=== PATIENT | male | born 1935 | race Caucasian/White ===

== ENCOUNTER 2019-02-12 20:43 | Emergency (ER) | payer MEDICARE ==
[~2019-02-12] VITALS: Ht 177.8 cm; Wt 106.4 kg
[~2019-02-12 20:43] MED LIST: ACHD5005 PO; ADVIL; AMLO10TA7 PO; AMLO1TAB5; AMLO1TAB5 PO; ASCO-262 PO; ASCO10006 PO; ASCO500C14; ASP325TEC; ASPI-892; ASPI-933 PO; ASPI325T32 PO; ATEN50TA PO; ATN50T PO; ATOR80TA; AZTH250C PO; BRIM5DRO12 OD; BRIM5DRO2 OD; BSC10SU PR; CALC-80 PO; CALC-913 PO; CALC260T6 PO; CALC600T PO; CENTRUM SILVER PO; CEPH500C PO; CLOP75TA PO; CLOP75TA28 PO; DIPH25TA82 PO; DOXY-13 PO; FISH1CAP15 PO; FLAXSEED OIL; FNST5T PO; FURO40TA4 PO; GABA-488 PO; GABA300C PO; GLIP-123 PO; GLIP10TA13 PO; GLPZ10TCR PO; HYDR-3061 PO; KCL20TCR PO; LEVO100V PO; LISI-552 PO; LISI-597 PO; LISI20TA PO; LSNP20T PO; LVT.1T PO; MAGN-47 PO; METF-380 PO; METF-399 PO; MTF500TCR; MULT-1029 PO; NEOM10SO5 EACH EAR; OMEG-160 PO; OMEG1CAP2 PO; OMG1KC PO; OXYC-12 PO; PRAV40TA PO; PRAV40TA2 PO; PRD20T PO; SCR1T1 PO; SERT50TA9 PO; SITA100T12 PO; SITA25TA5 PO; SRTR100T PO; TAMS0.4C2 PO; TMSL.4C PO
[2019-02-12] MEDS ORDERED: NS IV 1000 ML 1,000 ML IV SCH (22:33)
[2019-02-12 22:42] LABS: BASOPHILS % (AUTO) 0 % (0-10); EOSINOPHILS # (AUTO) 0.3 10^3/uL (0.0-0.3); EOSINOPHILS % (AUTO) 4 % (0-10); HEMATOCRIT 37 % (40-54); HEMOGLOBIN 12.4 G/DL (13.3-17.7); LYMPHOCYTES # (AUTO) 1.5 X 10^3 (1.0-4.0); LYMPHOCYTES % (AUTO) 20 % (12-44); MEAN CORPUSCULAR HEMOGLOBIN 30 PG (25-34); MEAN CORPUSCULAR HGB CONC 34 G/DL (32-36); MEAN CORPUSCULAR VOLUME 89 FL (80-99); MEAN PLATELET VOLUME 10.8 FL (7.4-10.4); MONOCYTES # (AUTO) 0.7 X 10^3 (0.0-1.0); MONOCYTES % (AUTO) 9 % (0-12); NEUTROPHILS # (AUTO) 5.1 X 10^3 (1.8-7.8); NEUTROPHILS % (AUTO) 68 % (42-75); PLATELET COUNT 201 10^3/uL (130-400); RED CELL DISTRIBUTION WIDTH 13.3 % (10.0-14.5); WHITE BLOOD COUNT 7.5 10^3/uL (4.3-11.0)
--- NOTE | 2019-02-12 22:43 | ED Abdominal Pain ---
General Stated Complaint: STOMACH CRAMPING,DIARRHEA Source of Information: Patient Exam Limitations: No Limitations History of Present Illness Date Seen by Provider: Feb 12, 2019 Time Seen by Provider: 22:25 Initial Comments Patient presents to ER by private conveyance with his and daughter and chief complaint that for the past several days he's been having some abdominal pain that is mostly in his right lower quadrant but all over 12 out of 10 after eating. Is not having any nausea or vomiting. He's having diarrhea loose stools but no fevers or chills. No history of abdominal surgeries. He has not been able to take his glipizide and metformin because of his abdominal discomfort for the past couple days. Nursing reports blood sugar is 198. He has had an occasional nonproductive cough nothing that concerns him. He had a colonoscopy many years ago but they don't member if he found any polyps or history of diverticulosis. No history of irritable bowel or inflammatory bowel disease. No black tarry stools and no blood in the stool. He has not tried to take anything to stop the diarrhea and he has not taken anything for the pain as it is self- limiting using an hour or 2 after eating. His only had half a cup of soup to eat today. Allergies and Home Medications Allergies Coded Allergies: No Known Drug Allergies (Verified , 10/15/09) Home Medications Amlodipine Besylate 10 Mg Tablet, 10 MG PO DAILY, (Reported) Ascorbate Calcium 500 Mg Tablet, 500 MG PO DAILY, (Reported) Aspirin 81 Mg Tablet.dr, 81 MG PO DAILY, (Reported) Atenolol 50 Mg Tablet, 50 MG PO HS, (Reported) Calcium Carbonate/Vitamin D3 1 Each Tablet, 1 TAB PO DAILY, (Reported) Gabapentin 300 Mg Capsule, 300 MG PO BID, (Reported) Glipizide 10 Mg Tablet, 10 MG PO DAILY, (Reported) Lisinopril 20 Mg Tablet, 20 MG PO BID, (Reported) Metformin HCl 1,000 Mg Tablet, 1,000 MG PO BID, (Reported) Multivit-Min/FA/Lycopene/Lut 1 Each Tablet, 1 TAB PO DAILY, (Reported) [place]-3/Dha/Epa/Fish Oil 1 Each Capsule, 1,000 MG PO BID, (Reported) Pravastatin Sodium 40 Mg Tablet, 40 MG PO HS, (Reported) Sertraline HCl 50 Mg Tablet, 50 MG PO HS, (Reported) Sitagliptin Phosphate 100 Mg Tablet, 100 MG PO DAILY, (Reported) LAST FILLED 09/05/16 #30 Tamsulosin HCl 0.4 Mg Cap.er.24h, 0.4 MG PO HS, (Reported) Patient Home Medication List Home Medication List Reviewed: Yes Review of Systems Review of Systems Constitutional: No chills, No diaphoresis, No fever; malaise EENTM: No Blurred Vision, No Double Vision Respiratory: Cough; Denies Shortness of Air, Denies Wheezing Cardiovascular: Denies Chest Pain, Denies Edema Gastrointestinal: See HPI, Abdomen Distended, Abdominal Pain; Denies Blood Streaked Stools, Denies Constipated; Diarrhea; Denies Nausea; Poor Fluid Intake ; Denies Vomiting Genitourinary: Denies Burning, Denies Discharge Musculoskeletal: No back pain, No joint pain Skin: No pruritus, No rash Psychiatric/Neurological: Denies Headache, Denies Numbness, Denies Paresthesia Past Htmcupa-Sednow-Wjvqhf Hx Patient Social History Alcohol Use: Denies Use Recreational Drug Use: No Smoking Status: Current Someday Smoker Type Used: Cigars Recent Foreign Travel: No Contact w/Someone Who Travel: No Recent Hopitalizations: No Immunizations Up To Date Tetanus Booster (TDap): Unknown Date of Pneumonia Vaccine: Sep 29, 2012 Seasonal Allergies Seasonal Allergies: No Past Medical History Amputation, CABG, Eye Surgery, Orthopedic, Pacemaker, Vascular Surgery Pneumonia Coronary Artery Disease, High Cholesterol, Hypertension, Peripheral Vascular Headaches /Migraines, Neuropathy Reproductive Disorders: No Prostate Problems Chronic Constipation Amputee Diabetes, Non-Insulin dep Cataract Loss of Vision: Denies Hearing Impairment: Hard of Hearing Depression Adverse Reaction/Blood Tranf: No Family Medical History Diabetes mellitus GRANDMOTHER FH: leukemia G8 BROTHER Testicular cancer 19 FATHER Physical Exam Vital Signs Capillary Refill : Height/Weight/BMI Height: 5'10.00" Weight: 253lbs. 9.0oz. 115.569489am; 36.4 BMI Method:Stated General Appearance: WD/WN, obese, other (Below the knee right amputation) HEENT: PERRL/EOMI, normal ENT inspection; No pharynx normal (Oropharynx is very dry) Respiratory: chest non-tender, lungs clear, normal breath sounds, no respiratory distress, no accessory muscle use Cardiovascular: normal peripheral pulses, regular rate, rhythm, no edema Peripheral Pulses: 2+ Radial Pulses (R), 2+ Radial Pulses (L) Gastrointestinal: normal bowel sounds (Active), soft, tenderness (Bilateral lower quadrants, diffuse), other (Negative for pain over McBurney's point, rebound tenderness, Rovsing sign. Negative for mesenteric signs) Extremities: no pedal edema, normal capillary refill, other (Right BKA) Neurologic/Psychiatric: alert, normal mood/affect, oriented x 3 Skin: normal color, warm/dry Progress/Results/Core Measures Results/Orders Lab Results Laboratory Tests Test 02/12/19 22:15 02/12/19 22:30 02/13/19 00:21 Range/Units White Blood Count 7.5 4.3-11.0 10^3/uL Red Blood Count 4.13 L 4.35-5.85 10^6/uL Hemoglobin 12.4 L 13.3-17.7 G/DL Hematocrit 37 L 40-54 % Mean Corpuscular Volume 89 80-99 FL Mean Corpuscular Hemoglobin 30 25-34 PG Mean Corpuscular Hemoglobin Concent 34 32-36 G/DL Red Cell Distribution Width 13.3 10.0-14.5 % Platelet Count 201 130-400 10^3/uL Mean Platelet Volume 10.8 H 7.4-10.4 FL Neutrophils (%) (Auto) 68 42-75 % Lymphocytes (%) (Auto) 20 12-44 % Monocytes (%) (Auto) 9 0-12 % Eosinophils (%) (Auto) 4 0-10 % Basophils (%) (Auto) 0 0-10 % Neutrophils # (Auto) 5.1 1.8-7.8 X 10^3 Lymphocytes # (Auto) 1.5 1.0-4.0 X 10^3 Monocytes # (Auto) 0.7 0.0-1.0 X 10^3 Eosinophils # (Auto) 0.3 0.0-0.3 10^3/uL Basophils # (Auto) 0.0 0.0-0.1 10^3/uL Sodium Level 137 135-145 MMOL/L Potassium Level 4.0 3.6-5.0 MMOL/L Chloride Level 102 98-107 MMOL/L Carbon Dioxide Level 24 21-32 MMOL/L Anion Gap 11 5-14 MMOL/L Blood Urea Nitrogen 30 H 7-18 MG/DL Creatinine 1.47 H 0.60-1.30 MG/DL Estimat Glomerular Filtration Rate 46 BUN/Creatinine Ratio 20 Glucose Level 199 H 70-105 MG/DL Calcium Level 9.7 8.5-10.1 MG/DL Corrected Calcium 9.7 8.5-10.1 MG/DL Total Bilirubin 0.4 0.1-1.0 MG/DL Aspartate Amino Transf (AST/SGOT) 15 5-34 U/L Alanine Aminotransferase (ALT/SGPT) 17 0-55 U/L Alkaline Phosphatase 69 40-136 U/L Total Protein 7.2 6.4-8.2 GM/DL Albumin 4.0 3.2-4.5 GM/DL Lipase 20 8-78 U/L Glucometer 198 H 70-110 MG/DL Urine Color YELLOW Urine Clarity CLEAR Urine pH 5 5-9 Urine Specific [place] 1.020 1.016-1.022 Urine Protein 2+ H NEGATIVE Urine Glucose (UA) NEGATIVE NEGATIVE Urine Ketones NEGATIVE NEGATIVE Urine Nitrite NEGATIVE NEGATIVE Urine Bilirubin NEGATIVE NEGATIVE Urine Urobilinogen NORMAL NORMAL MG/DL Urine Leukocyte Esterase NEGATIVE NEGATIVE Urine RBC (Auto) NEGATIVE NEGATIVE Urine RBC NONE /HPF Urine WBC RARE /HPF Urine Squamous Epithelial Cells 0-2 /HPF Urine Crystals NONE /LPF Urine Bacteria FEW H /HPF Urine Casts PRESENT /LPF Urine Hyaline Casts RARE /LPF Urine Mucus SMALL H /LPF Urine Culture Indicated NO Micro Results Microbiology 02/12/19 Influenza Types A,B Antigen (LORI) - Final, Complete My Orders Orders - ANTHONY ELLSWORTH Influenza A And B Antigens (02/12/19 22:33) Cbc With Automated Diff (02/12/19 22:33) Comprehensive Metabolic Panel (02/12/19 22:33) Ua Culture If Indicated (02/12/19 22:33) Lipase (02/12/19 22:33) Saline Lock/Iv-Start (02/12/19 22:33) Ns Iv 1000 Ml (Sodium Chloride 0.9%) (02/12/19 22:33) Ct Abdomen/Pelvis Wo (02/12/19 23:03) Saline Lock/Iv-Start (02/13/19 00:19) Ns Iv 1000 Ml (Sodium Chloride 0.9%) (02/13/19 00:19) [facility] Bedside Testing Finger Stick Blood Glucose: 198 Blood Glucose Action Taken: IV fluids and lab Progress Progress Note : Time: 22:43 Progress Note Based on her ideal body weight 20 mL/kg would be about 1800 cc so we'll give him a liter start of normal saline. Check some lab work and a CT scan of the abdomen pelvis with contrast. Differential includes diverticulitis, colitis, gastroenteritis, pancreatitis, gallbladder. Vital signs are aseptic but he did have a mildly elevated temperature so we had initially ordered a influenza swab. We'll hold off doing any antibiotics just yet as diarrheal disease can potentially be made worse with antibiotics if it's viral. Diagnostic Imaging Diagonstic Imaging: CT (With IV contrast) Plain Films/CT/US/NM/MRI: abdomen, pelvis Reviewed: Reviewed [place] Study, Reviewed by Me Departure Impression Primary Impression: Viral gastroenteritis Disposition: HOME, SELF-CARE Condition: Stable Departure-Patient Inst. Decision time for Depature: 00:45 Referrals: INÉS WILLAMS MD (PCP/Family) Primary Care Physician Patient Instructions: [id number] Add. Discharge Instructions: Drink plenty of fluids. Use the Zofran every 6 hours as needed for nausea. If you do have diarrhea try to let it go for the first day and then if it's going on after 24 hours you can start some Imodium 2 tablets and premature followed by one tablet every 4 hours, watery stools. Follow-up with primary care next week. Scripts Ondansetron (Ondansetron Odt) 4 Mg Tab.rapdis 4 MG PO Q6H PRN for NAUSEA/VOMITING-1ST LINE, #14 TAB 0 Refills Prov: ANTHONY ELLSWORTH 02/13/19 ANTHONY ELLSWORTH Feb 12, 2019 22:43
[2019-02-12 22:55] LABS: BILIRUBIN,TOTAL 0.4 MG/DL (0.1-1.0); CALCIUM 9.7 MG/DL (8.5-10.1); CREATININE SERUM 1.47 MG/DL (0.60-1.30); TOTAL PROTEIN 7.2 GM/DL (6.4-8.2)
--- NOTE | 2019-02-12 23:01 | NUR ---
PT TO CT IN STABLE CONDITION
[2019-02-13] MEDS: NS IV 1000 ML 1,000 ML IV SCH (00:27)
[2019-02-13 00:31] LABS: BILIRUBIN,URINE NEGATIVE (NEGATIVE); CLARITY,URINE CLEAR; COLOR,URINE YELLOW; GLUCOSE, URINE (UA) NEGATIVE (NEGATIVE); KETONES,URINE NEGATIVE (NEGATIVE); LEUKOCYTE ESTERASE ,URINE NEGATIVE (NEGATIVE); NITRITE,URINE NEGATIVE (NEGATIVE); PH,URINE 5 (5-9); PROTEIN,URINE 2+ (NEGATIVE); UROBILINOGEN,URINE NORMAL (NORMAL)
[2019-02-13 00:42] LABS: BACTERIA,URINE FEW /HPF; HYALINE CASTS, URINE RARE /LPF; SQUAMOUS EPITHELIAL CELL,UR 0-2 /HPF; WBC,URINE RARE /HPF
[2019-02-13] MEDS ORDERED: ONDA4TAB11 PO (00:50)
[2019-02-13 01:14] VITALS: BP 127/49
--- NOTE | 2019-02-13 07:04 | Diagnostic Imaging Report ---
PROCEDURE: CT abdomen and pelvis without contrast. TECHNIQUE: Multiple contiguous axial images were obtained through the abdomen and pelvis without the use of intravenous contrast. INDICATION: Diarrhea and abdominal pain Comparison is made to the study of 10/13/2016. There is dense coronary artery calcification with note made of coronary artery bypass. Unenhanced images of the liver and spleen reveal no focal abnormality. There is an approximately 1 cm diameter hyperdense focus within lumen of the stomach. This could be related to ingested material; this was not seen on the previous study of 10/13/2016. Small amount of hyperdense material seen within the gallbladder lumen which may be due to stones or sludge. No pancreatic or adrenal gland abnormality seen on the noncontrasted study. 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 No renal abnormality is identified. There is no evidence of free fluid. No gastrointestinal tract mural thickening is noted. The appendix has a normal appearance. Prostate is mildly enlarged and heterogeneous in appearance. There is diffuse spondylosis in the spine. IMPRESSION: No definite acute abnormalities identified. 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 Clinical correlation is recommended. A 1 cm hyperdense focus is seen within the gastric lumen at the level of the fundus. If indicated, consideration could be given to followup study or endoscopy to exclude area of focal hemorrhage or other hyperdense mass. Dictated by: Dictated on workstation # [id number]
== END 2019-02-13 01:14 | disposition home or self-care (01) ==
LOC: EDUNIT# 20:43 → ER 20:44
DX: A08.4 Viral intestinal infection, unspecified (principal); I10 Essential (primary) hypertension; E78.00 Pure hypercholesterolemia, unspecified; I25.10 Atherosclerotic heart disease of native coronary artery without angina pectoris; I73.9 Peripheral vascular disease, unspecified; G43.909 Migraine, unspecified, not intractable, without status migrainosus; E11.40 Type 2 diabetes mellitus with diabetic neuropathy, unspecified; F32.9 Major depressive disorder, single episode, unspecified; F17.290 Nicotine dependence, other tobacco product, uncomplicated; Z87.01 Personal history of pneumonia (recurrent); Z95.0 Presence of cardiac pacemaker; Z79.82 Long term (current) use of aspirin; Z79.4 Long term (current) use of insulin; Z95.1 Presence of aortocoronary bypass graft; Z80.6 Family history of leukemia; Z80.43 Family history of malignant neoplasm of testis
CPT/HCPCS: 36415; 74176; 80053; 81000; 82962; 83690; 85025; 87804

== ENCOUNTER 2019-02-17 17:40 | Observation (INO) | payer MEDICARE ==
[~2019-02-17] VITALS: Ht 177.8 cm; Wt 101.2 kg
[~2019-02-17 17:40] MED LIST changes: +ONDA4TAB11 PO
--- NOTE | 2019-02-17 18:02 | NUR ---
SEE LIST FOR CURRENT MEDS
[2019-02-17 18:20] LABS: BASOPHILS % (AUTO) 1 % (0-10); EOSINOPHILS # (AUTO) 0.4 10^3/uL (0.0-0.3); EOSINOPHILS % (AUTO) 6 % (0-10); HEMATOCRIT 34 % (40-54); HEMOGLOBIN 11.2 G/DL (13.3-17.7); LYMPHOCYTES # (AUTO) 1.6 X 10^3 (1.0-4.0); LYMPHOCYTES % (AUTO) 25 % (12-44); MEAN CORPUSCULAR HEMOGLOBIN 30 PG (25-34); MEAN CORPUSCULAR HGB CONC 33 G/DL (32-36); MEAN CORPUSCULAR VOLUME 91 FL (80-99); MEAN PLATELET VOLUME 10.4 FL (7.4-10.4); MONOCYTES # (AUTO) 0.6 X 10^3 (0.0-1.0); MONOCYTES % (AUTO) 10 % (0-12); NEUTROPHILS # (AUTO) 3.6 X 10^3 (1.8-7.8); NEUTROPHILS % (AUTO) 58 % (42-75); PLATELET COUNT 170 10^3/uL (130-400); RED CELL DISTRIBUTION WIDTH 13.2 % (10.0-14.5); WHITE BLOOD COUNT 6.1 10^3/uL (4.3-11.0)
[2019-02-17 18:31] LABS: INR 1.1 (0.8-1.4)
--- NOTE | 2019-02-17 18:37 | Diagnostic Imaging Report ---
INDICATION: Chest pain. COMPARISON: 10/10/2016 EXAMINATION: Single frontal radiographic view of the chest was obtained. FINDINGS: Moderate cardiomegaly. Pulmonary vasculature is within normal limits. Lungs are clear. There is no focal consolidation, large effusion or pneumothorax. Left-sided dual-lead pacemaker and sternotomy wires are noted. Bony structures show no gross acute abnormality. IMPRESSION: Moderate cardiomegaly, but no evidence of failure or focal infiltrate. Dictated by: Dictated on workstation # [id number]
[2019-02-17 18:40] LABS: ALANINE AMINOTRANSFERASE 16 U/L (0-55); ALBUMIN 3.6 GM/DL (3.2-4.5); ALKALINE PHOSPHATASE 62 U/L (40-136); BILIRUBIN,TOTAL 0.3 MG/DL (0.1-1.0); BUN/CREATININE RATIO 19; CALCIUM 9.3 MG/DL (8.5-10.1); CARBON DIOXIDE 23 MMOL/L (21-32); CHLORIDE 104 MMOL/L (98-107); CREATININE SERUM 1.55 MG/DL (0.60-1.30); GFR ESTIMATED 43; GLUCOSE 154 MG/DL (70-105); LIPASE 16 U/L (8-78); MAGNESIUM 1.8 MG/DL (1.8-2.4); POTASSIUM 4.7 MMOL/L (3.6-5.0); SODIUM 140 MMOL/L (135-145); TOTAL PROTEIN 6.6 GM/DL (6.4-8.2)
[2019-02-17 18:46] LABS: MYOGLOBIN SERUM 121.5 NG/ML (10.0-92.0)
--- NOTE | 2019-02-17 19:13 | Diagnostic Imaging Report ---
INDICATION: Abdominal pain and bloating. COMPARISON: 09/01/2015. FINDINGS: Supine and upright views the abdomen demonstrate nonobstructive small bowel gas pattern. Mild amount of air and stool are seen scattered throughout the colon. No abnormal air-fluid levels or large collection of free intraperitoneal air is seen. No abnormal extraosseous calcifications or radiopaque foreign bodies are identified. Bony structures are age-appropriate. IMPRESSION: 1. Nonobstructive small bowel gas pattern. Dictated by: Dictated on workstation # [id number]
--- NOTE | 2019-02-17 19:13 | NUR ---
ASSUMED CARE OF PT @ THIS TIME. REPORT RECIEVED FROM CANDICE REID.
--- NOTE | 2019-02-17 19:29 | Diagnostic Imaging Report ---
PROCEDURE: CT urinary tract, rule out kidney stone. TECHNIQUE: Multiple contiguous axial images were obtained through the abdomen and pelvis without the use of intravenous contrast. Auto Exposure Controls were utilized during the CT exam to meet ALARA standards for radiation dose reduction. INDICATION: Abdominal pain. Bloating. Weakness. COMPARISON: 02/12/2019. FINDINGS: Included portions of the lung bases are clear. Note is made of significant calcified aortic and coronary atherosclerosis. CT abdomen: Normal appendix is identified. Small bowel loops are nondistended. Vascular renal calcifications are identified bilaterally. Nonobstructive calyceal calculi cannot be excluded. There is however no hydronephrosis. No ureteral calculi are seen on either side. Adrenal glands, spleen, pancreas, and liver have an unremarkable noncontrast CT appearance. There is no loculated fluid collection, free fluid, nor free air within the abdomen. No abnormal mesenteric or retroperitoneal adenopathy is seen. Note is made of advanced calcified aortic and arterial atherosclerosis. Bony structures show no acute abnormalities. CT pelvis: Urinary bladder is unopacified. No calculi are seen within the urinary bladder. There is no loculated fluid collection, free fluid, nor free air within the pelvis. No abnormal lymph nodes are seen. Bony structures show no acute abnormalities. IMPRESSION: 1. Probable vascular calcifications of the bilateral kidneys. Nonobstructive nephrolithiasis is not entirely excluded. 2. Advanced calcified aortic, coronary, and arterial atherosclerosis. 3. Otherwise, no acute abnormalities are identified within the abdomen or pelvis. Dictated by: Dictated on workstation # [id number]
[2019-02-17] MEDS ORDERED: fentaNYL INJECTION 100 MCG/2 ML AMP IVP STA (19:34)
[2019-02-17] MEDS ORDERED: PANTOPRAZOLE 40 MG (PROTONIX) VIAL IV ONE (19:45)
--- OUTSIDE RECORDS SUMMARY | 2019-02-17 20:04 | XMS REPORT | Continuity of Care Document ---
Author Author [facility] Organization [facility] Address Unknown Phone Unavailable Allergies Active Description Code Type Severity Reaction Onset Reported/Identified Relationship to Patient Clinical Status Yes NO KNOWN DRUG ALLERGIES NO KNOWN DRUG ALLERG UNKNOWN Yes NONE NONE Mild N/ A 01/18/2007 Yes No Known Drug Allergies [id number] Drug Allergy Unknown N/A 10/15/2009 Medications Medication Packaging Start Date Stop Date Route Dosage Sig IPRATROPIUM/ALBUTEROL INH SOLN INH 0 (DUO-NEB INH SOLN) MLS 01/07/2017 01/07/2017 ONCE&0950 METHYLPREDNISOLONE VIAL INJ 125 MG/2CC (SOLU-MEDROL VIAL) MG 01/07/2017 01/07/2017 ONCE&0950 ONDANSETRON VIAL INJ 4 MG/2CC (ZOFRAN 2CC VIAL) MG 01/07/2017 01/07/2017 PRN ONCE NORMAL SALINE 1000CC IV BAG INJ 0.9 % (NS 1000CC IV BAG) ml 01/07/2017 01/07/2017 ONCE&1102 IPRATROPIUM/ALBUTEROL INH SOLN INH 0 (DUO-NEB INH SOLN) MLS 01/07/2017 01/07/2017 ONCE&1116 Problems Date Dx Coded Attending Type Code Diagnosis Diagnosed By 04/10/2011 Ot 250.00 DIAB TATIANA WO COMPL, TYPE II OR UNSPEC TY 04/10/2011 Ot 276.50 VOLUME DEPLETION, UNSPECIFIED 04/10/2011 Ot 401.9 HYPERTENSION NOS 04/10/2011 Ot 784.0 HEADACHE 04/10/2011 Ot 787.03 VOMITING ALONE 04/10/2011 Ot 789.09 ABDOMINAL PAIN, OTHER SPECIFIED SITE 04/10/2011 Ot V58.69 OTH MED,LT, CURRENT USE 04/14/2011 Ot 250.02 DIAB TATIANA WO COMPL, TYPE II OR UNSPEC TY 04/14/2011 Ot 272.4 HYPERLIPIDEMIA NEC/NOS 04/14/2011 Ot 276.51 DEHYDRATION 04/14/2011 Ot 368.13 VISUAL DISCOMFORT 04/14/2011 Ot 401.9 HYPERTENSION NOS 04/14/2011 Ot 558.9 NONINF GASTROENTERIT NEC 04/14/2011 Ot 564.00 UNSPEC CONSTIPATION 04/14/2011 Ot 723.5 TORTICOLLIS NOS 04/14/2011 Ot 784.0 HEADACHE 04/14/2011 Ot V15.81 HX OF PAST NONCOMPLIANCE 04/14/2011 Ot V15.82 HISTORY OF TOBACCO USE 04/14/2011 Ot V17.3 FAM HX- ISCHEM HEART DIS 12/12/2011 Ot 276.50 VOLUME DEPLETION, UNSPECIFIED 12/12/2011 Ot 787.03 VOMITING ALONE 05/15/2012 Ot 250.62 DIAB W NEURO MANIFEST, TYPE II OR UNSPEC 05/15/2012 Ot 272.4 HYPERLIPIDEMIA NEC/NOS 05/15/2012 Ot 273.8 DIS PLAS PROTEIN MET NEC 05/15/2012 Ot 285.1 AC POSTHEMORRHAG ANEMIA 05/15/2012 Ot 285.9 ANEMIA NOS 05/15/2012 Ot 357.2 NEUROPATHY IN DIABETES 05/15/2012 Ot 401.9 HYPERTENSION NOS 05/15/2012 Ot 414.00 CORON ATHEROSCLER NOS TYPE VESSEL, NATIV 05/15/2012 Ot 440.24 ATHEROSCL [place] ARTERIES EXTREMITIES W 05/15/2012 Ot 599.0 URIN TRACT INFECTION NOS 05/15/2012 Ot 681.10 CELLULITIS, TOE NOS 05/15/2012 Ot 707.05 PRESSURE ULCER, BUTTOCK 05/15/2012 Ot 707.07 PRESSURE ULCER, HEEL 05/15/2012 Ot 707.21 PRESSURE ULCER, STAGE I 05/15/2012 Ot 730.27 OSTEOMYELITIS NOS-ANKLE 05/15/2012 Ot 747.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 05/15/2012 Ot V15.82 HISTORY OF TOBACCO USE 05/15/2012 Ot V45.81 AORTOCORONARY BYPASS 06/09/2012 Ot 250.60 DIAB W NEURO MANIFEST, TYPE II OR UNSPEC 06/09/2012 Ot 272.4 HYPERLIPIDEMIA NEC/NOS 06/09/2012 Ot 276.8 HYPOPOTASSEMIA 06/09/2012 Ot 285.9 ANEMIA NOS 06/09/2012 Ot 305.1 TOBACCO USE DISORDER 06/09/2012 Ot 311 DEPRESSIVE DISORDER NEC 06/09/2012 Ot 357.2 NEUROPATHY IN DIABETES 06/09/2012 Ot 401.9 HYPERTENSION NOS 06/09/2012 Ot 414.00 CORON ATHEROSCLER NOS TYPE VESSEL, NATIV 06/09/2012 Ot 443.9 PERIPH VASCULAR DIS NOS 06/09/2012 Ot 564.00 UNSPEC CONSTIPATION 06/09/2012 Ot 600.01 HYPERTROPHY (BENIGN) OF PROSTATE W URINA 06/09/2012 Ot 682.2 CELLULITIS OF TRUNK 06/09/2012 Ot 707.03 PRESSURE ULCER, LOWER BACK 06/09/2012 Ot 707.23 PRESSURE ULCER, STAGE III 06/09/2012 Ot 788.20 RETENTION OF URINE NOS 06/09/2012 Ot 998.59 OTH POSTOPER INFECTION 06/09/2012 Ot V45.81 AORTOCORONARY BYPASS 06/09/2012 Ot V49.75 BELOW KNEE AMPUTATION STATUS 06/09/2012 Ot V57.1 PHYSICAL THERAPY NEC 06/09/2012 Ot V57.21 ENCOUNTER FOR OCCUPATIONAL THERAPY 06/09/2012 Ot V58.67 LONG-TERM ( CURRENT) USE OF INSULIN 06/09/2012 Ot V58.73 AFTERCARE POST SURGERY CIRULATORY SYSTEM 10/03/2012 Ot V49.75 BELOW KNEE AMPUTATION STATUS 10/03/2012 Ot V57.1 PHYSICAL THERAPY NEC 01/03/2013 Ot V49.75 BELOW KNEE AMPUTATION STATUS 01/03/2013 Ot V57.1 PHYSICAL THERAPY NEC 10/05/2013 HAZEL HOLM APRN Ot 466.0 ACUTE BRONCHITIS 10/05/2013 HAZEL HOLM DEVELOPMENT COACH Ot 786.2 COUGH 10/19/2013 ЕКАТЕРИНА VICK, INÉS Gan Ot V49.75 BELOW KNEE AMPUTATION STATUS 10/19/2013 ЕКАТЕРИНА VICK, INÉS Gan Ot V57.1 PHYSICAL THERAPY NEC 02/16/2014 REHANA VICK, WENDY Henriquez Ot 532.90 DUODENAL ULCER NOS 02/16/2014 WENDY KIMBALL MD Ot 535.40 OTH SPECIFIED GASTRITIS,W/O MENTION OF H 02/16/2014 WENDY KIMBALL MD Ot 537.82 ANGIODYSPLSIA STOMACH DUODENUM (W/O ME 02/16/2014 WENDY KIMBALL MD Ot 784.0 HEADACHE 02/16/2014 WENDY KIMBALL MD Ot V58.63 LONG-TERM(CURRENT)USE OF ANTIPLATELET/AN 01/11/2015 Ot 356.9 01/11/2015 Ot 244.9 01/11/2015 Ot V49.75 01/11/2015 Ot V67.09 01/12/2015 Ot 356.9 01/12/2015 Ot 244.9 01/12/2015 Ot V49.75 01/12/2015 Ot V67.09 01/23/2015 Ot 356.9 01/23/2015 Ot 244.9 01/23/2015 Ot V49.75 01/23/2015 Ot V67.09 03/12/2015 Ot 356.9 03/12/2015 Ot 244.9 03/12/2015 Ot V49.75 03/12/2015 Ot V67.09 07/17/2015 Ot 244.9 07/17/2015 Ot V49.75 07/17/2015 Ot V67.09 07/17/2015 Ot 244.9 07/17/2015 Ot V49.75 07/17/2015 Ot V67.09 07/18/2015 Ot 244.9 07/18/2015 Ot V49.75 07/18/2015 Ot V67.09 09/01/2015 Ot 244.9 09/01/2015 Ot V49.75 09/01/2015 Ot V67.09 09/01/2015 Ot 244.9 09/01/2015 Ot V49.75 09/01/2015 Ot V67.09 09/02/2015 Ot 244.9 09/02/2015 Ot V49.75 09/02/2015 Ot V67.09 09/05/2015 Ot 244.9 09/05/2015 Ot V49.75 09/05/2015 Ot V67.09 09/06/2015 Ot 244.9 09/06/2015 Ot V49.75 09/06/2015 Ot V67.09 09/09/2015 ЕКАТЕРИНА VICK, INÉS R Ot E11.65 TYPE 2 DIABETES MELLITUS WITH HYPERGLYCE 09/09/2015 ЕКАТЕРИНА VICK, INÉS R Ot I10 ESSENTIAL (PRIMARY) HYPERTENSION 09/09/2015 ЕКАТЕРИНА VICK, INÉS R Ot I25.10 ATHSCL HEART DISEASE OF [place] CORONARY 09/09/2015 ЕКАТЕРИНА VICK, INÉS R Ot I50.23 ACUTE ON CHRONIC SYSTOLIC (CONGESTIVE) H 09/09/2015 ЕКАТЕРИНА VICK, INÉS R Ot I50.9 09/09/2015 ЕКАТЕРИНА VICK, INÉS R Ot I63.9 CEREBRAL INFARCTION, UNSPECIFIED 09/09/2015 INÉS WILLAMS MD R Ot J18.9 09/09/2015 ЕКАТЕРИНА VICK, INÉS R Ot K59.00 CONSTIPATION, UNSPECIFIED 09/09/2015 ЕКАТЕРИНА VICK, INÉS R Ot R11.2 09/09/2015 ЕКАТЕРИНА VICK, INÉS R Ot R42 09/09/2015 INÉS WILLAMS MD R Ot R51 09/09/2015 INÉS WILLAMS MD Ot Z23 ENCOUNTER FOR IMMUNIZATION 09/09/2015 INÉS WILLAMS MD R Ot Z72.0 TOBACCO USE 09/09/2015 INÉS WILLAMS MD Ot Z89.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 09/09/2015 INÉS WILLAMS MD Ot Z91.11 PATIENT'S NONCOMPLIANCE WITH DIETARY REG 09/09/2015 INÉS WLILAMS MD Ot Z95.0 PRESENCE OF CARDIAC PACEMAKER 09/09/2015 INÉS WILLAMS MD Ot Z95.1 PRESENCE OF AORTOCORONARY BYPASS GRAFT 09/09/2015 INÉS WILLAMS MD Ot Z95.820 PERIPHERAL VASCULAR ANGIOPLASTY STATUS W 10/09/2015 Ot 244.9 10/09/2015 Ot V49.75 10/09/2015 Ot V67.09 10/10/2015 Ot 244.9 10/10/2015 Ot V49.75 10/10/2015 Ot V67.09 10/15/2015 Ot 244.9 10/15/2015 Ot V49.75 10/15/2015 Ot V67.09 10/16/2015 Ot 244.9 10/16/2015 Ot V49.75 10/16/2015 Ot V67.09 10/23/2015 Ot 244.9 10/23/2015 Ot V49.75 10/23/2015 Ot V67.09 10/28/2015 Ot 244.9 10/28/2015 Ot V49.75 10/28/2015 Ot V67.09 11/25/2015 Ot 244.9 11/25/2015 Ot V49.75 11/25/2015 Ot V67.09 11/25/2015 HIRAM FRAZIER DO Ot S00.512A ABRASION OF ORAL CAVITY, INITIAL ENCOUNT 11/25/2015 HIRAM FRAZIER DO Ot X58.XXXA EXPOSURE TO OTHER SPECIFIED FACTORS, INI 11/25/2015 HIRAM FRAZIER DO Ot Y92.[address] IN UNSP NON-INSTITUT (PRIVATE 11/25/2015 HIRAM FRAZIER DO Ot Y99.8 OTHER EXTERNAL CAUSE STATUS 12/02/2015 Ot 244.9 12/02/2015 Ot V49.75 12/02/2015 Ot V67.09 12/19/2015 Ot 244.9 12/19/2015 Ot V49.75 12/19/2015 Ot V67.09 12/23/2015 Ot 244.9 12/23/2015 Ot V49.75 12/23/2015 Ot V67.09 12/26/2015 Ot 244.9 12/26/2015 Ot V49.75 12/26/2015 Ot V67.09 12/30/2015 Ot 244.9 12/30/2015 Ot V49.75 12/30/2015 Ot V67.09 01/06/2016 Ot 244.9 01/06/2016 Ot V49.75 01/06/2016 Ot V67.09 03/18/2016 Ot 244.9 HYPOTHYROIDISM NOS 03/18/2016 Ot V49.75 BELOW KNEE AMPUTATION STATUS 03/18/2016 Ot V67.09 SURGERY FOLLOW-UP, OTHER SURGERY 07/30/2016 Ot 250.00 DIAB TATIANA WO COMPL, TYPE II OR UNSPEC TY 07/30/2016 Ot 276.50 VOLUME DEPLETION, UNSPECIFIED 07/30/2016 Ot 401.9 HYPERTENSION NOS 07/30/2016 Ot 784.0 HEADACHE 07/30/2016 Ot 787.03 VOMITING ALONE 07/30/2016 Ot 789.09 ABDOMINAL PAIN, OTHER SPECIFIED SITE 07/30/2016 Ot V58.69 OTH MED,LT, CURRENT USE 09/16/2016 Ot 244.9 HYPOTHYROIDISM NOS 09/16/2016 Ot V49.75 BELOW KNEE AMPUTATION STATUS 09/16/2016 Ot V67.09 SURGERY FOLLOW-UP, OTHER SURGERY 10/09/2016 Ot 244.9 HYPOTHYROIDISM NOS 10/09/2016 Ot V49.75 BELOW KNEE AMPUTATION STATUS 10/09/2016 Ot V67.09 SURGERY FOLLOW-UP, OTHER SURGERY 10/13/2016 Ot 244.9 HYPOTHYROIDISM NOS 10/13/2016 Ot V49.75 BELOW KNEE AMPUTATION STATUS 10/13/2016 Ot V67.09 SURGERY FOLLOW-UP, OTHER SURGERY 10/13/2016 Ot 244.9 HYPOTHYROIDISM NOS 10/13/2016 Ot V49.75 BELOW KNEE AMPUTATION STATUS 10/13/2016 Ot V67.09 SURGERY FOLLOW-UP, OTHER SURGERY 10/15/2016 PK BURNHAM MD Ot A40.1 SEPSIS DUE TO STREPTOCOCCUS, GROUP B 10/15/2016 PK BURNHAM MD Ot A41.59 OTHER GRAM-NEGATIVE SEPSIS 10/15/2016 PK BURNHAM MD Ot B95.1 STREPTOCOCCUS, GROUP B, CAUSING DISEASES 10/15/2016 PK BURNHAM MD Ot E11.42 TYPE 2 DIABETES MELLITUS WITH DIABETIC P 10/15/2016 PK BURNHAM MD Ot F17.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, OTHER TOBACCO PRODU 10/15/2016 PK BURNHAM MD Ot I13.0 HYP HRT CHR KDNY DIS W HRT FAIL AND ST 10/15/2016 PK BURNHAM MD Ot I25.10 ATHSCL HEART DISEASE OF [place] CORONARY 10/15/2016 PK BURNHAM MD Ot I50.30 UNSPECIFIED DIASTOLIC (CONGESTIVE) HEART 10/15/2016 PK BURNHAM MD Ot I50.33 ACUTE ON CHRONIC DIASTOLIC (CONGESTIVE) 10/15/2016 PK BURNHAM MD Ot J18.9 PNEUMONIA, UNSPECIFIED ORGANISM 10/15/2016 PK BURNHAM MD Ot J20.2 ACUTE BRONCHITIS DUE TO STREPTOCOCCUS 10/15/2016 PK BURNHAM MD Ot J20.8 ACUTE BRONCHITIS DUE TO OTHER SPECIFIED 10/15/2016 PK BURNHAM MD Ot J44.0 CHRONIC OBSTRUCTIVE PULMON DISEASE W ACU 10/15/2016 PK BURNHAM MD Ot J44.1 CHRONIC OBSTRUCTIVE PULMONARY DISEASE W 10/15/2016 PK BURNHAM MD Ot J45.909 UNSPECIFIED ASTHMA, UNCOMPLICATED 10/15/2016 PK BURNHAM MD Ot K56.7 ILEUS, UNSPECIFIED 10/15/2016 PK BURNHAM MD Ot N18.3 CHRONIC KIDNEY DISEASE, STAGE 3 (MODERAT 10/15/2016 PK BURNHAM MD Ot R04.2 HEMOPTYSIS 10/15/2016 PK BURNHAM MD Ot Z79.84 LONGTERM (CURRENT) USE OF ORAL HYPOGLYC 10/15/2016 PK BURNHAM MD Ot Z89.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 10/15/2016 PK BURNHAM MD Ot Z95.0 PRESENCE OF CARDIAC PACEMAKER 10/15/2016 PK BURNHAM MD Ot Z95.1 PRESENCE OF AORTOCORONARY BYPASS GRAFT 10/20/2016 AGATHA PAZ DO Ot A40.1 SEPSIS DUE TO STREPTOCOCCUS, GROUP B 10/20/2016 AGATHA PAZ DO Ot E11.42 TYPE 2 DIABETES MELLITUS WITH DIABETIC P 10/20/2016 AGATHA PAZ DO Ot F17.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, OTHER TOBACCO PRODU 10/20/2016 AGATHA PAZ DO Ot F60.9 PERSONALITY DISORDER, UNSPECIFIED 10/20/2016 AGATHA PAZ DO Ot I13.0 HYP HRT CHR KDNY DIS W HRT FAIL AND ST 10/20/2016 AGATHA PAZ DO Ot I25.10 ATHSCL HEART DISEASE OF [place] CORONARY 10/20/2016 AGATHA PAZ DO Ot I50.33 ACUTE ON CHRONIC DIASTOLIC (CONGESTIVE) 10/20/2016 AGATHA PAZ DO Ot J18.9 PNEUMONIA, UNSPECIFIED ORGANISM 10/20/2016 AGATHA PAZ DO Ot J44.0 CHRONIC OBSTRUCTIVE PULMON DISEASE W ACU 10/20/2016 AGATHA PAZ DO Ot J45.909 UNSPECIFIED ASTHMA, UNCOMPLICATED 10/20/2016 AGATHA PAZ DO Ot K56.7 ILEUS, UNSPECIFIED 10/20/2016 AGATHA PAZ DO Ot N18.3 CHRONIC KIDNEY DISEASE, STAGE 3 (MODERAT 10/20/2016 AGATHA PAZ DO Ot R04.2 HEMOPTYSIS 10/20/2016 AGATHA PAZ DO Ot Z79.84 ELECTRODYNAMICIST (CURRENT) USE OF ORAL HYPOGLYC 10/20/2016 AGATHA PAZ DO Ot Z95.0 PRESENCE OF CARDIAC PACEMAKER 10/20/2016 AGATHA PAZ DO Ot Z95.1 PRESENCE OF AORTOCORONARY BYPASS GRAFT 10/20/2016 Ot 244.9 HYPOTHYROIDISM NOS 10/20/2016 Ot V49.75 BELOW KNEE AMPUTATION STATUS 10/20/2016 Ot V67.09 SURGERY FOLLOW-UP, OTHER SURGERY 10/29/2016 Ot 250.00 DIAB TATIANA WO COMPL, TYPE II OR UNSPEC TY 10/29/2016 Ot 276.50 VOLUME DEPLETION, UNSPECIFIED 10/29/2016 Ot 401.9 HYPERTENSION NOS 10/29/2016 Ot 784.0 HEADACHE 10/29/2016 Ot 787.03 VOMITING ALONE 10/29/2016 Ot 789.09 ABDOMINAL PAIN, OTHER SPECIFIED SITE 10/29/2016 Ot V58.69 OTH MED,LT, CURRENT USE 11/11/2016 Ot 244.9 HYPOTHYROIDISM NOS 11/11/2016 Ot V49.75 BELOW KNEE AMPUTATION STATUS 11/11/2016 Ot V67.09 SURGERY FOLLOW-UP, OTHER SURGERY 12/10/2016 Ot 244.9 HYPOTHYROIDISM NOS 12/10/2016 Ot V49.75 BELOW KNEE AMPUTATION STATUS 12/10/2016 Ot V67.09 SURGERY FOLLOW-UP, OTHER SURGERY 12/14/2016 Ot 244.9 HYPOTHYROIDISM NOS 12/14/2016 Ot V49.75 BELOW KNEE AMPUTATION STATUS 12/14/2016 Ot V67.09 SURGERY FOLLOW-UP, OTHER SURGERY 01/07/2017 Hazel Holm 428.9 HEART FAILURE, UNSPECIFIED 01/07/2017 Hazel Holm 491.21 OBSTRUCTIVE CHRONIC BRONCHITIS WITH (ACUTE) EXACERBATION 01/07/2017 Hazel Holm 786.05 SHORTNESS OF BREATH 01/07/2017 Hazel Holm I50.9 HEART FAILURE, UNSPECIFIED 01/07/2017 Hazel Holm J44.1 CHRONIC OBSTRUCTIVE PULMONARY DISEASE W (ACUTE) EXACERBATION 01/07/2017 Hazel Holm R06.02 SHORTNESS OF BREATH 02/14/2019 ANTHONY ELLSWORTH MD Ot A08.4 VIRAL INTESTINAL INFECTION, UNSPECIFIED 02/14/2019 ANTHONY ELLSWORTH MD Ot E11.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 02/14/2019 ANTHONY ELLSWORTH MD Ot E78.00 PURE HYPERCHOLESTEROLEMIA, UNSPECIFIED 02/14/2019 ANTHONY ELLSWORTH MD Ot F17.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, OTHER TOBACCO PRODU 02/14/2019 ANTHONY ELLSWORTH MD Ot F32.9 MAJOR DEPRESSIVE DISORDER, SINGLE EPISOD 02/14/2019 ANTHONY ELLSWORTH MD Ot G43.909 MIGRAINE, UNSP, NOT INTRACTABLE, WITHOUT 02/14/2019 JODEE VICK, ANTHONY Julio Ot I10 ESSENTIAL (PRIMARY) HYPERTENSION 02/14/2019 ANTHONY ELLSWORTH MD Ot I25.10 ATHSCL HEART DISEASE OF [place] CORONARY 02/14/2019 ANTHONY ELLSWORTH MD Ot I73.9 PERIPHERAL VASCULAR DISEASE, UNSPECIFIED 02/14/2019 ANTHONY ELLSWORTH MD Ot R10.31 RIGHT LOWER QUADRANT PAIN 02/14/2019 ANTHONY ELLSWORTH MD Ot Z79.4 LONGTERM (CURRENT) USE OF INSULIN 02/14/2019 ANTHONY ELLSWORTH MD, Ot Z79.82 ELECTRODYNAMICIST (CURRENT) USE OF ASPIRIN 02/14/2019 ANTHONY ELLSWORTH MD Ot Z80.43 FAMILY HISTORY OF MALIGNANT NEOPLASM OF 02/14/2019 ANTHONY ELLSWORTH MD, Ot Z80.6 FAMILY HISTORY OF LEUKEMIA 02/14/2019 ANTHONY ELLSWORTH MD Ot Z87.01 PERSONAL HISTORY OF PNEUMONIA (RECURRENT 02/14/2019 ANTHONY ELLSWORTH MD, Ot Z95.0 PRESENCE OF CARDIAC PACEMAKER 02/14/2019 ANTHONY ELLSWORTH MD, Ot Z95.1 PRESENCE OF AORTOCORONARY BYPASS GRAFT Procedures Code Description Performed By Performed On 02.2604/10/2011 00.40 PROCEDURE ON SINGLE VESSEL 05/04/2012 39.29 VASC SHUNT BYPASS NEC 05/04/2012 39.50 ANGIOPLASTY OF OTHER NON- CORONARY VESSEL 05/04/2012 83.44 OTHER FASCIECTOMY 05/04/2012 84.11 TOE AMPUTATION 05/04/2012 38.93 VENOUS CATHETERIZATION [facility] 05/06/2012 84.15 BELOW KNEE AMPUTAT [facility] 05/09/2012 57.32 CYSTOSCOPY [facility] 05/20/2012 Results Test Result Range Complete blood count (CBC) with automated white blood cell (WBC) differential - 10/09/16 17:05 Blood leukocytes automated count (number/volume) 12.4 10*3/uL 4.3-11.0 Blood erythrocytes automated count (number/volume) 4.00 10*6/uL 4.35-5.85 Venous blood hemoglobin measurement (mass/volume) 12.1 g/dL 13.3-17.7 Blood hematocrit (volume fraction) 36 % 40-54 Automated erythrocyte mean corpuscular volume 91 [foz_us] 80-99 Automated erythrocyte mean corpuscular hemoglobin (mass per erythrocyte) 30 pg 25-34 Automated erythrocyte mean corpuscular hemoglobin concentration measurement ( mass/volume) 33 g/dL 32-36 Automated erythrocyte distribution width ratio 13.5 % 10.0-14.5 Automated blood platelet count (count/volume) 150 10*3/uL 130-400 Automated blood platelet mean volume measurement 10.9 [foz_us] 7.4-10.4 Automated blood neutrophils/100 leukocytes 89 % 42-75 Automated blood lymphocytes/100 leukocytes 7 % 12-44 Blood monocytes/100 leukocytes 4 % 0-12 Automated blood eosinophils/100 leukocytes 0 % 0-10 Automated blood basophils/100 leukocytes 0 % 0-10 Blood neutrophils automated count (number/volume) 11.0 10*3 1.8-7.8 Blood lymphocytes automated count (number/volume) 0.8 10*3 1.0-4.0 Blood monocytes automated count (number/volume) 0.6 10*3 0.0-1.0 Automated eosinophil count 0.0 10*3/uL 0.0-0.3 Automated blood basophil count (count/volume) 0.0 10*3/uL 0.0-0.1 Blood lactic acid measurement (moles/volume) - 10/09/16 17:05 Blood lactic acid measurement (moles/volume) 2.0 mmol/L 0.5-2.0 Comprehensive metabolic panel - 10/09/16 17:05 Serum or plasma sodium measurement (moles/volume) 137 mmol/L 135-145 Serum or plasma potassium measurement (moles/volume) 4.3 mmol/L 3.6-5.0 Serum or plasma chloride measurement (moles/volume) 103 mmol/L 98-107 Carbon dioxide 26 mmol/L 21-32 Serum or plasma anion gap determination (moles/volume) 8 mmol/L 5-14 Serum or plasma urea nitrogen measurement (mass/volume) 29 mg/dL 7-18 Serum or plasma creatinine measurement (mass/volume) 1.51 mg/dL 0.60-1.30 Serum or plasma urea nitrogen/creatinine mass ratio 19 NRG Serum or plasma creatinine measurement with calculation of estimated glomerular filtration rate 44 NRG Serum or plasma glucose measurement (mass/volume) 263 mg/dL 70-105 Serum or plasma calcium measurement (mass/volume) 8.8 mg/dL 8.5-10.1 Serum or plasma total bilirubin measurement (mass/volume) 0.8 mg/dL 0.1-1.0 Serum or plasma alkaline phosphatase measurement (enzymatic activity/volume) 68 U/L 40-136 Serum or plasma aspartate aminotransferase measurement (enzymatic activity/ volume) 17 U/L 5-34 Serum or plasma alanine aminotransferase measurement (enzymatic activity/volume ) 23 U/L 0-55 Serum or plasma protein measurement (mass/volume) 6.6 g/dL 6.4-8.2 Serum or plasma albumin measurement (mass/volume) 3.9 g/dL 3.2-4.5 Blood manual differential performed detection - 10/09/16 17:05 Blood monocytes/100 leukocytes 1 % NR Manual blood segmented neutrophils/100 leukocytes 91 % NRG Blood band neutrophils/100 leukocytes 0 % NR Manual blood lymphocytes/100 leukocytes 8 % NRG Manual eosinophils/100 leukocytes in nose 0 % NR Manual blood basophils/100 leukocytes 0 % NR Blood erythrocyte morphology finding identification NORMAL [facility] Serum or plasma creatine kinase measurement (enzymatic activity/volume) - 10/09 17:05 Serum or plasma creatine kinase measurement (enzymatic activity/volume) 98 U/L 30-200 Serum or plasma C reactive protein measurement (mass/volume) - 10/09/16 17:05 Serum or plasma C reactive protein measurement (mass/volume) 9.13 mg /dL 0.00-0.50 Fibrin D-dimer FEU measurement in platelet poor plasma (mass/volume) - 17:05 Fibrin D-dimer FEU measurement in platelet poor plasma (mass/volume) 1.79 ug/mL 0.00-0.49 Bacterial blood culture - 10/09/16 17:05 QUANTITY OF GROWTH Isolated [facility] Bacterial blood culture [id number] [facility] Bacterial blood culture - 10/09/16 18:08 FREE TEXT EXTERNAL PROBABLE [employer] [facility] QUANTITY OF GROWTH Isolated [facility] Bacterial blood culture [id number] [facility] FREE TEXT ENTRY 2 SEE COMMENTS [facility] Bacterial susceptibility panel - 10/09/16 18:08 Trimethoprim/sulfamethoxazole susceptibility test by minimum inhibitoryconcentration <= NRG Ciprofloxacin susceptibility test by minimum inhibitory concentration 1 [facility] Meropenem susceptibility test by minimum inhibitory concentration < = NRG Complete urinalysis with reflex to culture - 10/09/16 18:49 Urine color determination YELLOW NRG Urine clarity determination CLEAR [facility] Urine pH measurement by test strip 5 5-9 Specific gravity of urine by test strip 1.025 1.016- 1.022 Urine protein assay by test strip, semi-quantitative 3+ NEGATIVE Urine glucose detection by automated test strip 3+ NEGATIVE Erythrocytes detection in urine sediment by light microscopy 2+ NEGATIVE Urine ketones detection by automated test strip NEGATIVE NEGATIVE Urine nitrite detection by test strip NEGATIVE NEGATIVE Urine total bilirubin detection by test strip NEGATIVE NEGATIVE Urine urobilinogen measurement by automated test strip (mass/volume) NORMAL NORMAL Urine leukocyte esterase detection by dipstick NEGATIVE NEGATIVE Automated urine sediment erythrocyte count by microscopy (number/high power field) NONE NRG Automated urine sediment leukocyte count by microscopy (number/high power field ) RARE NRG Bacteria detection in urine sediment by light microscopy NEGATIVE NRG Squamous epithelial cells detection in urine sediment by light microscopy RARE NRG Crystals detection in urine sediment by light microscopy NONE NRG Casts detection in urine sediment by light microscopy NONE NRG Mucus detection in urine sediment by light microscopy NEGATIVE NRG Complete urinalysis with reflex to culture NO NRG Influenza virus A and B antigen detection - 10/09/16 20:09 FLU RESULT NEGATIVE FOR INFLUENZA A AND B ANTIGENS BY IA NRG Complete blood count (CBC) with automated white blood cell (WBC) differential - 10/10/16 05:08 Blood leukocytes automated count (number/volume) 12.3 10*3/uL 4.3-11.0 Blood erythrocytes automated count (number/volume) 3.61 10*6/uL 4.35-5.85 Venous blood hemoglobin measurement (mass/volume) 10.9 g/dL 13.3-17.7 Blood hematocrit (volume fraction) 34 % 40-54 Automated erythrocyte mean corpuscular volume 93 [foz_us] 80-99 Automated erythrocyte mean corpuscular hemoglobin (mass per erythrocyte) 30 pg 25-34 Automated erythrocyte mean corpuscular hemoglobin concentration measurement ( mass/volume) 33 g/dL 32-36 Automated erythrocyte distribution width ratio 13.9 % 10.0-14.5 Automated blood platelet count (count/volume) 129 10*3/uL 130-400 Automated blood platelet mean volume measurement 11.0 [foz_us] 7.4-10.4 Automated blood neutrophils/100 leukocytes 85 % 42-75 Automated blood lymphocytes/100 leukocytes 9 % 12-44 Blood monocytes/100 leukocytes 6 % 0-12 Automated blood eosinophils/100 leukocytes 0 % 0-10 Automated blood basophils/100 leukocytes 0 % 0-10 Blood neutrophils automated count (number/volume) 10.5 10*3 1.8-7.8 Blood lymphocytes automated count (number/volume) 1.1 10*3 1.0-4.0 Blood monocytes automated count (number/volume) 0.8 10*3 0.0-1.0 Automated eosinophil count 0.0 10*3/uL 0.0-0.3 Automated blood basophil count (count/volume) 0.0 10*3/uL 0.0-0.1 Whole blood basic metabolic panel - 10/10/16 05:08 Serum or plasma sodium measurement (moles/volume) 138 mmol/L 135-145 Serum or plasma potassium measurement (moles/volume) 4.5 mmol/L 3.6-5.0 Serum or plasma chloride measurement (moles/volume) 106 mmol/L 98-107 Carbon dioxide 21 mmol/L 21-32 Serum or plasma anion gap determination (moles/volume) 11 mmol/L 5-14 Serum or plasma urea nitrogen measurement (mass/volume) 35 mg/dL 7-18 Serum or plasma creatinine measurement (mass/volume) 1.69 mg/dL 0.60-1.30 Serum or plasma urea nitrogen/creatinine mass ratio 21 NRG Serum or plasma creatinine measurement with calculation of estimated glomerular filtration rate 39 NRG Serum or plasma glucose measurement (mass/volume) 226 mg/dL 70-105 Serum or plasma calcium measurement (mass/volume) 8.3 mg/dL 8.5-10.1 Capillary blood glucose measurement by glucometer (mass/volume) - 10/10/16 10: 23 Capillary blood glucose measurement by glucometer (mass/volume) 189 mg/dL 70-110 Capillary blood glucose measurement by glucometer (mass/volume) - 10/10/16 15: 17 Capillary blood glucose measurement by glucometer (mass/volume) 153 mg/dL 70-110 Capillary blood glucose measurement by glucometer (mass/volume) - 10/10/16 20: 54 Capillary blood glucose measurement by glucometer (mass/volume) 134 mg/dL 70-110 Capillary blood glucose measurement by glucometer (mass/volume) - 10/11/16 05: 53 Capillary blood glucose measurement by glucometer (mass/volume) 159 mg/dL 70-110 Capillary blood glucose measurement by glucometer (mass/volume) - 10/11/16 09: 18 Capillary blood glucose measurement by glucometer (mass/volume) 188 mg/dL 70-110 Sputum Gram stain - 10/11/16 09:45 GRAM STAIN SPUTUM AND MIXED BACTERIAL [facility] Bacterial sputum culture - 10/11/16 09:45 Bacterial sputum culture NORMAL NR Capillary blood glucose measurement by glucometer (mass/volume) - 10/11/16 11: 39 Capillary blood glucose measurement by glucometer (mass/volume) 273 mg/dL 70-110 Capillary blood glucose measurement by glucometer (mass/volume) - 10/11/16 15: 49 Capillary blood glucose measurement by glucometer (mass/volume) 375 mg/dL 70-110 Capillary blood glucose measurement by glucometer (mass/volume) - 10/11/16 21: 10 Capillary blood glucose measurement by glucometer (mass/volume) 303 mg/dL 70-110 Capillary blood glucose measurement by glucometer (mass/volume) - 10/12/16 05: 41 Capillary blood glucose measurement by glucometer (mass/volume) 295 mg/dL 70-110 Complete blood count (CBC) with automated white blood cell (WBC) differential - 10/12/16 07:09 Blood leukocytes automated count (number/volume) 10.6 10*3/uL 4.3-11.0 Blood erythrocytes automated count (number/volume) 3.76 10*6/uL 4.35-5.85 Venous blood hemoglobin measurement (mass/volume) 11.2 g/dL 13.3-17.7 Blood hematocrit (volume fraction) 35 % 40-54 Automated erythrocyte mean corpuscular volume 92 [foz_us] 80-99 Automated erythrocyte mean corpuscular hemoglobin (mass per erythrocyte) 30 pg 25-34 Automated erythrocyte mean corpuscular hemoglobin concentration measurement ( mass/volume) 32 g/dL 32-36 Automated erythrocyte distribution width ratio 13.6 % 10.0-14.5 Automated blood platelet count (count/volume) 158 10*3/uL 130-400 Automated blood platelet mean volume measurement 11.0 [foz_us] 7.4-10.4 Automated blood neutrophils/100 leukocytes 91 % 42-75 Automated blood lymphocytes/100 leukocytes 5 % 12-44 Blood monocytes/100 leukocytes 3 % 0-12 Automated blood eosinophils/100 leukocytes 1 % 0-10 Automated blood basophils/100 leukocytes 0 % 0-10 Blood neutrophils automated count (number/volume) 9.7 10*3 1.8-7.8 Blood lymphocytes automated count (number/volume) 0.6 10*3 1.0-4.0 Blood monocytes automated count (number/volume) 0.3 10*3 0.0-1.0 Automated eosinophil count 0.1 10*3/uL 0.0-0.3 Automated blood basophil count (count/volume) 0.0 10*3/uL 0.0-0.1 Whole blood basic metabolic panel - 10/12/16 07:09 Serum or plasma sodium measurement (moles/volume) 139 mmol/L 135-145 Serum or plasma potassium measurement (moles/volume) 4.5 mmol/L 3.6-5.0 Serum or plasma chloride measurement (moles/volume) 109 mmol/L 98-107 Carbon dioxide 19 mmol/L 21-32 Serum or plasma anion gap determination (moles/volume) 11 mmol/L 5-14 Serum or plasma urea nitrogen measurement (mass/volume) 45 mg/dL 7-18 Serum or plasma creatinine measurement (mass/volume) 1.35 mg/dL 0.60-1.30 Serum or plasma urea nitrogen/creatinine mass ratio 33 NRG Serum or plasma creatinine measurement with calculation of estimated glomerular filtration rate 51 NRG Serum or plasma glucose measurement (mass/volume) 299 mg/dL 70-105 Serum or plasma calcium measurement (mass/volume) 8.1 mg/dL 8.5-10.1 Capillary blood glucose measurement by glucometer (mass/volume) - 10/12/16 10: 57 Capillary blood glucose measurement by glucometer (mass/volume) 324 mg/dL 70-110 Capillary blood glucose measurement by glucometer (mass/volume) - 10/12/16 16: 10 Capillary blood glucose measurement by glucometer (mass/volume) 252 mg/dL 70-110 Capillary blood glucose measurement by glucometer (mass/volume) - 10/12/16 20: 40 Capillary blood glucose measurement by glucometer (mass/volume) 226 mg/dL 70-110 Capillary blood glucose measurement by glucometer (mass/volume) - 10/13/16 05: 31 Capillary blood glucose measurement by glucometer (mass/volume) 258 mg/dL 70-110 Capillary blood glucose measurement by glucometer (mass/volume) - 10/13/16 11: 13 Capillary blood glucose measurement by glucometer (mass/volume) 270 mg/dL 70-110 Capillary blood glucose measurement by glucometer (mass/volume) - 10/13/16 12: 21 Capillary blood glucose measurement by glucometer (mass/volume) 269 mg/dL 70-110 Capillary blood glucose measurement by glucometer (mass/volume) - 10/13/16 16: 11 Capillary blood glucose measurement by glucometer (mass/volume) 247 mg/dL 70-110 Capillary blood glucose measurement by glucometer (mass/volume) - 10/13/16 20: 29 Capillary blood glucose measurement by glucometer (mass/volume) 215 mg/dL 70-110 Capillary blood glucose measurement by glucometer (mass/volume) - 10/14/16 05: 02 Capillary blood glucose measurement by glucometer (mass/volume) 160 mg/dL 70-110 Complete blood count (CBC) with automated white blood cell (WBC) differential - 10/14/16 08:30 Blood leukocytes automated count (number/volume) 9.8 10*3/uL 4.3-11.0 Blood erythrocytes automated count (number/volume) 4.07 10*6/uL 4.35-5.85 Venous blood hemoglobin measurement (mass/volume) 12.1 g/dL 13.3-17.7 Blood hematocrit (volume fraction) 38 % 40-54 Automated erythrocyte mean corpuscular volume 93 [foz_us] 80-99 Automated erythrocyte mean corpuscular hemoglobin (mass per erythrocyte) 30 pg 25-34 Automated erythrocyte mean corpuscular hemoglobin concentration measurement ( mass/volume) 32 g/dL 32-36 Automated erythrocyte distribution width ratio 13.7 % 10.0-14.5 Automated blood platelet count (count/volume) 193 10*3/uL 130-400 Automated blood platelet mean volume measurement 10.2 [foz_us] 7.4-10.4 Automated blood neutrophils/100 leukocytes 92 % 42-75 Automated blood lymphocytes/100 leukocytes 4 % 12-44 Blood monocytes/100 leukocytes 4 % 0-12 Automated blood eosinophils/100 leukocytes 0 % 0-10 Automated blood basophils/100 leukocytes 0 % 0-10 Blood neutrophils automated count (number/volume) 8.9 10*3 1.8-7.8 Blood lymphocytes automated count (number/volume) 0.4 10*3 1.0-4.0 Blood monocytes automated count (number/volume) 0.4 10*3 0.0-1.0 Automated eosinophil count 0.0 10*3/uL 0.0-0.3 Automated blood basophil count (count/volume) 0.0 10*3/uL 0.0-0.1 Comprehensive metabolic panel - 10/14/16 08:30 Serum or plasma sodium measurement (moles/volume) 142 mmol/L 135-145 Serum or plasma potassium measurement (moles/volume) 4.4 mmol/L 3.6-5.0 Serum or plasma chloride measurement (moles/volume) 111 mmol/L 98-107 Carbon dioxide 23 mmol/L 21-32 Serum or plasma anion gap determination (moles/volume) 8 mmol/L 5-14 Serum or plasma urea nitrogen measurement (mass/volume) 36 mg/dL 7-18 Serum or plasma creatinine measurement (mass/volume) 1.05 mg/dL 0.60-1.30 Serum or plasma urea nitrogen/creatinine mass ratio 34 NRG Serum or plasma creatinine measurement with calculation of estimated glomerular filtration rate > NRG Serum or plasma glucose measurement (mass/volume) 193 mg/dL 70-105 Serum or plasma calcium measurement (mass/volume) 8.1 mg/dL 8.5-10.1 Serum or plasma total bilirubin measurement (mass/volume) 0.6 mg/dL 0.1-1.0 Serum or plasma alkaline phosphatase measurement (enzymatic activity/volume) 60 U/L 40-136 Serum or plasma aspartate aminotransferase measurement (enzymatic activity/ volume) 43 U/L 5-34 Serum or plasma alanine aminotransferase measurement (enzymatic activity/volume ) 89 U/L 0-55 Serum or plasma protein measurement (mass/volume) 6.0 g/dL 6.4-8.2 Serum or plasma albumin measurement (mass/volume) 3.5 g/dL 3.2-4.5 Lipase - 10/14/16 08:30 Lipase 11 U/L 8-78 Serum or plasma lithium measurement (moles/volume) - 10/14/16 08:30 BNP level 846.8 pg/mL <100.0 Capillary blood glucose measurement by glucometer (mass/volume) - 10/14/16 10: 48 Capillary blood glucose measurement by glucometer (mass/volume) 194 mg/dL 70-110 Capillary blood glucose measurement by glucometer (mass/volume) - 10/14/16 15: 53 Capillary blood glucose measurement by glucometer (mass/volume) 250 mg/dL 70-110 Capillary blood glucose measurement by glucometer (mass/volume) - 10/14/16 20: 28 Capillary blood glucose measurement by glucometer (mass/volume) 225 mg/dL 70-110 Capillary blood glucose measurement by glucometer (mass/volume) - 10/15/16 05: 57 Capillary blood glucose measurement by glucometer (mass/volume) 196 mg/dL 70-110 Capillary blood glucose measurement by glucometer (mass/volume) - 10/15/16 12: 13 Capillary blood glucose measurement by glucometer (mass/volume) 205 mg/dL 70-110 Capillary blood glucose measurement by glucometer (mass/volume) - 10/15/16 15: 54 Capillary blood glucose measurement by glucometer (mass/volume) 346 mg/dL 70-110 Capillary blood glucose measurement by glucometer (mass/volume) - 10/15/16 20: 31 Capillary blood glucose measurement by glucometer (mass/volume) 301 mg/dL 70-110 Capillary blood glucose measurement by glucometer (mass/volume) - 10/16/16 05: 19 Capillary blood glucose measurement by glucometer (mass/volume) 243 mg/dL 70-110 Capillary blood glucose measurement by glucometer (mass/volume) - 10/16/16 11: 40 Capillary blood glucose measurement by glucometer (mass/volume) 217 mg/dL 70-110 Capillary blood glucose measurement by glucometer (mass/volume) - 10/16/16 16: 27 Capillary blood glucose measurement by glucometer (mass/volume) 329 mg/dL 70-110 Capillary blood glucose measurement by glucometer (mass/volume) - 10/16/16 21: 11 Capillary blood glucose measurement by glucometer (mass/volume) 221 mg/dL 70-110 Whole blood basic metabolic panel - 10/17/16 04:43 Serum or plasma sodium measurement (moles/volume) 143 mmol/L 135-145 Serum or plasma potassium measurement (moles/volume) 3.4 mmol/L 3.6-5.0 Serum or plasma chloride measurement (moles/volume) 101 mmol/L 98-107 Carbon dioxide 31 mmol/L 21-32 Serum or plasma anion gap determination (moles/volume) 11 mmol/L 5-14 Serum or plasma urea nitrogen measurement (mass/volume) 35 mg/dL 7-18 Serum or plasma creatinine measurement (mass/volume) 1.17 mg/dL 0.60-1.30 Serum or plasma urea nitrogen/creatinine mass ratio 30 NRG Serum or plasma creatinine measurement with calculation of estimated glomerular filtration rate 60 NRG Serum or plasma glucose measurement (mass/volume) 181 mg/dL 70-105 Serum or plasma calcium measurement (mass/volume) 8.1 mg/dL 8.5-10.1 Capillary blood glucose measurement by glucometer (mass/volume) - 10/17/16 11: 00 Capillary blood glucose measurement by glucometer (mass/volume) 207 mg/dL 70-110 Capillary blood glucose measurement by glucometer (mass/volume) - 10/17/16 16: 03 Capillary blood glucose measurement by glucometer (mass/volume) 281 mg/dL 70-110 Capillary blood glucose measurement by glucometer (mass/volume) - 10/17/16 20: 45 Capillary blood glucose measurement by glucometer (mass/volume) 241 mg/dL 70-110 Capillary blood glucose measurement by glucometer (mass/volume) - 10/18/16 05: 57 Capillary blood glucose measurement by glucometer (mass/volume) 120 mg/dL 70-110 Capillary blood glucose measurement by glucometer (mass/volume) - 10/18/16 10: 53 Capillary blood glucose measurement by glucometer (mass/volume) 333 mg/dL 70-110 Capillary blood glucose measurement by glucometer (mass/volume) - 10/18/16 15: 47 Capillary blood glucose measurement by glucometer (mass/volume) 247 mg/dL 70-110 Capillary blood glucose measurement by glucometer (mass/volume) - 10/18/16 20: 58 Capillary blood glucose measurement by glucometer (mass/volume) 283 mg/dL 70-110 Capillary blood glucose measurement by glucometer (mass/volume) - 10/19/16 06: 19 Capillary blood glucose measurement by glucometer (mass/volume) 155 mg/dL 70-110 Capillary blood glucose measurement by glucometer (mass/volume) - 10/19/16 11: 12 Capillary blood glucose measurement by glucometer (mass/volume) 284 mg/dL 70-110 Capillary blood glucose measurement by glucometer (mass/volume) - 10/19/16 16: 30 Capillary blood glucose measurement by glucometer (mass/volume) 369 mg/dL 70-110 Capillary blood glucose measurement by glucometer (mass/volume) - 10/19/16 22: 22 Capillary blood glucose measurement by glucometer (mass/volume) 169 mg/dL 70-110 Capillary blood glucose measurement by glucometer (mass/volume) - 10/20/16 05: 15 Capillary blood glucose measurement by glucometer (mass/volume) 126 mg/dL 70-110 Capillary blood glucose measurement by glucometer (mass/volume) - 10/20/16 10: 29 Capillary blood glucose measurement by glucometer (mass/volume) 337 mg/dL 70-110 Mycoplasma - 11/24/16 16:40 Mycoplasma Negative Negative [place] Test - 11/24/16 16:40 [place] Test Negative Negative BNP - 01/07/17 09:50 BNP 305.20 pg/ml 0.00-100.00 Lactic Acid - 01/07/17 09:50 Lactic Acid 12.4 mg/dL 4.5-19.8 Blood Culture - 01/07/17 09:50 PRELIM CULTURE RESULTS Blood Culture Negative, No Growth Day 1 FINAL CULTURE RESULTS Blood Culture Negative, No Growth Day 5 MEDIA PLATED Setup at 10:07 on 01/07/2017 Blood Culture Media Position [id number] CULTURE SOURCE rt radial Blood Culture - 01/07/17 09:50 PRELIM CULTURE RESULTS Blood Culture Negative, No Growth Day 1 FINAL CULTURE RESULTS Blood Culture Negative, No Growth Day 5 MEDIA PLATED Setup at 10:07 on 01/07/2017 Blood Culture Media Position B36 CULTURE SOURCE ABG rt [id number] rt ac Arterial Blood Gas - 01/07/17 10:56 Base 0.00 mmol/L 1.80-4.20 HCO3 26 mmol/L 20-31 O2 Sat 90 4L % 95-100 pCO2 50 mm/Hg 35-45 pH 7.33 7.35-7.45 PO2 64 mm/Hg 80-95 Complete blood count (CBC) with automated white blood cell (WBC) differential - 02/12/19 22:15 Blood leukocytes automated count (number/volume) 7.5 10*3/uL 4.3-11.0 Blood erythrocytes automated count (number/volume) 4.13 10*6/uL 4.35-5.85 Venous blood hemoglobin measurement (mass/volume) 12.4 g/dL 13.3-17.7 Blood hematocrit (volume fraction) 37 % 40-54 Automated erythrocyte mean corpuscular volume 89 [foz_us] 80-99 Automated erythrocyte mean corpuscular hemoglobin (mass per erythrocyte) 30 pg 25-34 Automated erythrocyte mean corpuscular hemoglobin concentration measurement ( mass/volume) 34 g/dL 32-36 Automated erythrocyte distribution width ratio 13.3 % 10.0-14.5 Automated blood platelet count (count/volume) 201 10*3/uL 130-400 Automated blood platelet mean volume measurement 10.8 [foz_us] 7.4-10.4 Automated blood neutrophils/100 leukocytes 68 % 42-75 Automated blood lymphocytes/100 leukocytes 20 % 12-44 Blood monocytes/100 leukocytes 9 % 0-12 Automated blood eosinophils/100 leukocytes 4 % 0-10 Automated blood basophils/100 leukocytes 0 % 0-10 Blood neutrophils automated count (number/volume) 5.1 10*3 1.8-7.8 Blood lymphocytes automated count (number/volume) 1.5 10*3 1.0-4.0 Blood monocytes automated count (number/volume) 0.7 10*3 0.0-1.0 Automated eosinophil count 0.3 10*3/uL 0.0-0.3 Automated blood basophil count (count/volume) 0.0 10*3/uL 0.0-0.1 Comprehensive metabolic panel - 02/12/19 22:15 Serum or plasma sodium measurement (moles/volume) 137 mmol/L 135-145 Serum or plasma potassium measurement (moles/volume) 4.0 mmol/L 3.6-5.0 Serum or plasma chloride measurement (moles/volume) 102 mmol/L 98-107 Carbon dioxide 24 mmol/L 21-32 Serum or plasma anion gap determination (moles/volume) 11 mmol/L 5-14 Serum or plasma urea nitrogen measurement (mass/volume) 30 mg/dL 7-18 Serum or plasma creatinine measurement (mass/volume) 1.47 mg/dL 0.60-1.30 Serum or plasma urea nitrogen/creatinine mass ratio 20 NRG Serum or plasma creatinine measurement with calculation of estimated glomerular filtration rate 46 NRG Serum or plasma glucose measurement (mass/volume) 199 mg/dL 70-105 Serum or plasma calcium measurement (mass/volume) 9.7 mg/dL 8.5-10.1 Serum or plasma total bilirubin measurement (mass/volume) 0.4 mg/dL 0.1-1.0 Serum or plasma alkaline phosphatase measurement (enzymatic activity/volume) 69 U/L 40-136 Serum or plasma aspartate aminotransferase measurement (enzymatic activity/ volume) 15 U/L 5-34 Serum or plasma alanine aminotransferase measurement (enzymatic activity/volume ) 17 U/L 0-55 Serum or plasma protein measurement (mass/volume) 7.2 g/dL 6.4-8.2 Serum or plasma albumin measurement (mass/volume) 4.0 g/dL 3.2-4.5 CALCIUM CORRECTED 9.7 mg/dL 8.5-10.1 Lipase - 02/12/19 22:15 Lipase 20 U/L 8-78 Capillary blood glucose measurement by glucometer (mass/volume) - 02/12/19 22: 30 Capillary blood glucose measurement by glucometer (mass/volume) 198 mg/dL 70-110 Influenza virus A and B antigen detection - 02/12/19 22:31 FLU RESULT NEGATIVE FOR INFLUENZA A AND B ANTIGENS BY IA NRG Complete urinalysis with reflex to culture - 02/13/19 00:21 Urine color determination YELLOW NRG Urine clarity determination CLEAR NRG Urine pH measurement by test strip 5 5-9 Specific gravity of urine by test strip 1.020 1.016- 1.022 Urine protein assay by test strip, semi-quantitative 2+ NEGATIVE Urine glucose detection by automated test strip NEGATIVE NEGATIVE Erythrocytes detection in urine sediment by light microscopy NEGATIVE NEGATIVE Urine ketones detection by automated test strip NEGATIVE NEGATIVE Urine nitrite detection by test strip NEGATIVE NEGATIVE Urine total bilirubin detection by test strip NEGATIVE NEGATIVE Urine urobilinogen measurement by automated test strip (mass/volume) NORMAL NORMAL Urine leukocyte esterase detection by dipstick NEGATIVE NEGATIVE Automated urine sediment erythrocyte count by microscopy (number/high power field) NONE NRG Automated urine sediment leukocyte count by microscopy (number/high power field ) RARE NRG Bacteria detection in urine sediment by light microscopy FEW NRG Squamous epithelial cells detection in urine sediment by light microscopy 0-2 NRG Crystals detection in urine sediment by light microscopy NONE NRG Casts detection in urine sediment by light microscopy PRESENT NRG Mucus detection in urine sediment by light microscopy SMALL NRG Complete urinalysis with reflex to culture NO NRG Hyaline casts detection in urine sediment by light microscopy RARE NRG Encounters ACCT No. Visit Date/Time Discharge Status Pt. Type Provider Facility Loc./Unit Complaint [id number] 02/12/2019 20:44:00 02/13/2019 01:14:00 DIS Outpatient JODEE VICK, ANTHONY Julio [facility] ER STOMACH CRAMPING,DIARRHEA [id number] 10/15/2016 11:59:00 10/20/2016 11:10:00 DIS Inpatient PAZ DO, AGATHA [facility] 4TH SWB-BRONCHITIS COPD [id number] 10/09/2016 22:12:00 10/15/2016 11:59:00 DIS Inpatient HCACHA VICK, PK [place] [facility] 4TH SEPSIS,PNEUMONIA,HYPOXIA, RENAL INSUFFICIENCY [id number] 11/25/2015 18:25:00 11/25/2015 20:33:00 DIS Emergency HIRAM FRAZIER DO [facility] ER MOUTH BLEEDING [id number] 09/01/2015 16:45:00 09/09/2015 10:45:00 DIS Inpatient ЕКАТЕРИНА VICK, INÉS R [facility] SURGICAL NAUSEA/VOMITING HEADACHE FEVER CONFUSION [id number] 02/12/2014 22:35:00 02/16/2014 11:30:00 DIS Outpatient REHANA VICK, WENDY Henriquez [facility] SDC VOMITING, HEMATEMESIS [id number] 10/12/2013 08:22:00 10/19/2013 14:25:00 DIS Outpatient ЕКАТЕРИНА VICK, INÉS R [facility] REHAB LEG AMPUTEE [id number] 10/05/2013 18:35:00 10/05/2013 21:40:00 DIS Emergency HAZEL HOLM APRN [facility] ER MULTIPLE COMPLAINTS [id number] 01/12/2015 00:00:00 Document Registration [id number] 01/12/2015 00:00:00 Document Registration [id number] 01/12/2015 00:00:00 Document Registration [id number] 12/29/2012 12:41:00 Document Registration [id number] 09/16/2012 10:19:00 Document Registration [id number] 06/23/2012 10:50:00 Document Registration [id number] 06/15/2012 12:10:00 Document Registration [id number] 05/15/2012 15:40:00 Document Registration [id number] 05/01/2012 05:04:00 Document Registration [id number] 12/12/2011 11:47:00 Document Registration [id number] 04/10/2011 08:02:00 Document Registration [id number] 04/09/2011 23:12:00 Document Registration [id number] 11/06/2009 14:04:00 Document Registration [id number] 01/07/2017 09:39:00 01/07/2017 12:30:00 [id number] 11/24/2016 17:16:00 11/24/2016 23:59:00 DIS Outpatient DULCE MARIA SANCHEZ [id number] 11/24/2016 16:40:00 11/24/2016 16:40:00 CAN Outpatient DULCE MARIA SANCHEZ [id number] 01/07/2017 09:52:18 Document Registration [id number] 09/02/2015 02:11:26 ACT Document Registration
--- NOTE | 2019-02-17 20:45 | NUR ---
JOSE ADKINS admitted to room 427-1, with an admitting diagnosis of abdominal pain, on 02/17/19 from ER via personal wheelchair, accompanied by er staff, and daughter. JOSE ADKINS introduced to surroundings, call light, bed controls, phone, TV, temperature control, lights, meal times, smoking policy, visitor policy, side rail policy, bathrooms and showers. Patient Rights given to patient in the handbook. JOSE ADKINS verbalizes understanding that [facility] is not responsible for the loss or damage to any personal effects or valuables that are kept in the patients possession during their hospitalization.
[2019-02-17 21:01] VITALS: BP 132/65
[2019-02-17 21:05] VITALS: BP 132/65
[2019-02-17] MEDS: 1/2 NS IV SOLUTION 1,000 ML IV SCH (21:45)
[2019-02-17] MEDS ORDERED: ONDANSETRON 4 MG/2 ML (SDV) Z0FRAN IV PRN (21:45)
[2019-02-17] MEDS ORDERED: fentaNYL INJECTION 100 MCG/2 ML AMP IV PRN (21:45)
[2019-02-18 00:45] VITALS: BP 115/57
[2019-02-18] MEDS ORDERED: HYDR-3820 PO (02:47)
[2019-02-18] MEDS ORDERED: FINA5TAB6 PO (02:47)
[2019-02-18] MEDS ORDERED: FURO20TA4 PO (02:47)
[2019-02-18] MEDS ORDERED: BRIM5DRO2 OU (02:47)
[2019-02-18 04:27] VITALS: BP 99/53
[2019-02-18] MEDS: inSUlin ASPART (NovoLOG) 1 UNIT/0.01 ML (CHARGE PER UNIT) SC SCH ×3 (06:40→16:33)
[2019-02-18 06:54] LABS: BASOPHILS % (AUTO) 1 % (0-10); EOSINOPHILS # (AUTO) 0.5 10^3/uL (0.0-0.3); EOSINOPHILS % (AUTO) 9 % (0-10); HEMATOCRIT 34 % (40-54); LYMPHOCYTES # (AUTO) 1.5 X 10^3 (1.0-4.0); LYMPHOCYTES % (AUTO) 29 % (12-44); MEAN CORPUSCULAR HEMOGLOBIN 29 PG (25-34); MEAN CORPUSCULAR HGB CONC 32 G/DL (32-36); MEAN CORPUSCULAR VOLUME 92 FL (80-99); MEAN PLATELET VOLUME 10.1 FL (7.4-10.4); MONOCYTES # (AUTO) 0.5 X 10^3 (0.0-1.0); MONOCYTES % (AUTO) 10 % (0-12); NEUTROPHILS # (AUTO) 2.7 X 10^3 (1.8-7.8); NEUTROPHILS % (AUTO) 51 % (42-75); PLATELET COUNT 156 10^3/uL (130-400); RED CELL DISTRIBUTION WIDTH 13.2 % (10.0-14.5); WHITE BLOOD COUNT 5.3 10^3/uL (4.3-11.0)
[2019-02-18 07:18] LABS: ALBUMIN 3.3 GM/DL (3.2-4.5); BILIRUBIN,TOTAL 0.5 MG/DL (0.1-1.0); CALCIUM 8.8 MG/DL (8.5-10.1); CREATININE SERUM 1.34 MG/DL (0.60-1.30); TOTAL PROTEIN 5.8 GM/DL (6.4-8.2)
[2019-02-18] MEDS ORDERED: HYDROcodone/APAP 10 MG/325 MG (LORTAB) TAB PO PRN (07:30)
[2019-02-18] MEDS: 1/2 NS IV SOLUTION 1,000 ML IV SCH (07:53)
[2019-02-18 08:00] VITALS: BP 130/67
[2019-02-18] MEDS ORDERED: PATIENT MAY USE OWN MEDS, ALL MC SCH (08:00)
[2019-02-18] MEDS ORDERED: lisINopril 20 MG (PRINIVIL) TABLET PO SCH (09:00)
[2019-02-18] MEDS ORDERED: PANTOPRAZOLE 40 MG (PROTONIX) VIAL IV SCH (09:00)
[2019-02-18] MEDS ORDERED: GABAPENTIN 300 MG (NEURONTIN) CAP PO SCH ×2 (09:00→13:00)
[2019-02-18] MEDS ORDERED: FUROSEMIDE 20 MG (LASIX) TAB PO SCH (09:00)
[2019-02-18] MEDS ORDERED: FINASTERIDE (PROSCAR) 5 MG TAB PO SCH (09:00)
--- NOTE | 2019-02-18 11:05 | Diagnostic Imaging Report ---
PROCEDURE: US abdomen complete. TECHNIQUE: Multiple real-time grayscale images were obtained over the abdomen in various projections. INDICATION: Generalized abdominal pain COMPARISON: CT 02/17/2019 FINDINGS: The size and echogenicity of the liver is normal. There is no mass or intrahepatic biliary duct dilatation. Portal venous flow is normal. Common bile duct, pancreas, and aorta are poorly visualized. The inferior vena cava is normal. Portions of the gallbladder have a normal appearance. On the CT examination, there are few tiny calcifications in the dependent portion of the gallbladder likely gallstones. However, it is not clearly identified with ultrasound due to overlying bowel gas. The gallbladder wall is normal. There is no splenomegaly. The right kidney measures 12 cm, the left kidney 11 cm. The size and echogenicity is normal. There is no hydronephrosis or mass. No ascites identified. IMPRESSION: 1. Unremarkable appearing liver 2. Nonvisualized pancreas, common bile duct, and aorta 3. Questionable gallstones on CT imaging. Although, these are not apparent on ultrasound due to overlying bowel gas. There is no cholecystitis. 4. No renal calculi or hydronephrosis. Dictated by: Dictated on workstation # [id number]
--- NOTE | 2019-02-18 11:10 | Consultation ---
History of Present Illness History of Present Illness Patient Consulted On(hebert/time) 02/18/19 11:07 Date Seen by Provider: Feb 17, 2019 Time Seen by Provider: 17:00 Reason for Visit: Unresolved right-sided abdominal pain History of Present Illness 5 days history of right-sided abdominal pain, requiring emergency room visits and 2 occasions, [address] scan is noncontributory. Due to concern about cholelithiasis, he has been admitted for pain control and ultrasound evaluation. Allergies and Home Medications Allergies Coded Allergies: No Known Drug Allergies (Verified , 10/15/09) Home Medications Amlodipine Besylate 10 Mg Tablet, 10 MG PO HS, (Reported) Ascorbate Calcium 500 Mg Tablet, 500 MG PO DAILY, (Reported) Aspirin 81 Mg Tablet.dr, 81 MG PO DAILY, (Reported) Atenolol 50 Mg Tablet, 50 MG PO HS, (Reported) Brimonidine Tartrate 5 Ml Drops, 1 DROP OU BID, (Reported) Calcium Carbonate/Vitamin D3 1 Each Tablet, 1 TAB PO DAILY, (Reported) Finasteride 5 Mg Tablet, 5 MG PO DAILY, (Reported) Furosemide 20 Mg Tablet, 20 MG PO DAILY, (Reported) Gabapentin 300 Mg Capsule, 300 MG PO TID, (Reported) Glipizide 10 Mg Tablet, 10 MG PO HS, (Reported) Hydrocodone/Acetaminophen 1 Each Tablet, 1 TAB PO Q6H PRN for PAIN-MODERATE, ( Reported) Lisinopril 20 Mg Tablet, 20 MG PO BID, (Reported) Metformin HCl 1,000 Mg Tablet, 1,000 MG PO BID, (Reported) Multivit-Min/FA/Lycopene/Lut 1 Each Tablet, 1 TAB PO DAILY, (Reported) [place]-3/Dha/Epa/Fish Oil 1 Each Capsule, 1,000 MG PO BID, (Reported) Ondansetron 4 Mg Tab.rapdis, 4 MG PO Q6H PRN for NAUSEA/VOMITING-1ST LINE Prescribed by: ANTHONY ELLSWORTH on 02/13/19 0050 Pravastatin Sodium 40 Mg Tablet, 40 MG PO HS, (Reported) Sertraline HCl 50 Mg Tablet, 50 MG PO HS, (Reported) Tamsulosin HCl 0.4 Mg Cap.er.24h, 0.4 MG PO HS, (Reported) Patient Home Medication List Home Medication List Reviewed: Yes Past Vvryplw-Awgauy-Mnslsc Hx Patient Social History Alcohol Use: Denies Use Recreational Drug Use: No Smoking Status: Current Everyday Smoker Type Used: Cigars Recent Foreign Travel: No Contact w/Someone Who Travel: No Recent Infectious Disease Expo: No Recent Hopitalizations: No Physical Abuse: No Sexual Abuse: No Immunizations Up To Date Tetanus Booster (TDap): Unknown Date of Pneumonia Vaccine: Sep 29, 2012 Seasonal Allergies Seasonal Allergies: No Past Medical History Surgeries: Yes (BYPASS) Amputation, CABG, Eye Surgery, Orthopedic, Pacemaker, Vascular Surgery Respiratory: No Pneumonia Cardiac: Yes Coronary Artery Disease, High Cholesterol, Hypertension, Peripheral Vascular Neurological: No Headaches /Migraines, Neuropathy Reproductive Disorders: No Prostate Problems Gastrointestinal: No Chronic Constipation Musculoskeletal: Yes Amputee Endocrine: Yes Diabetes, Non-Insulin dep Cataract Loss of Vision: Denies Hearing Impairment: Hard of Hearing Cancer: No Psychosocial: Yes Depression Integumentary: No Blood Disorders: No Adverse Reaction/Blood Tranf: No Family Medical History Diabetes mellitus GRANDMOTHER FH: leukemia G8 BROTHER Testicular cancer 19 FATHER Review of Systems-General Constitutional: no symptoms reported Respiratory: no symptoms reported Cardiovascular: no symptoms reported Gastrointestinal: see HPI Musculoskeletal: no symptoms reported Skin: no symptoms reported Psychiatric/Neurological: No Symptoms Reported Physical Exam-General Problems Physical Exam Vital Signs Vital Signs - First Documented 02/17/19 02/17/19 02/18/19 17:40 20:32 04:27 Temp 97.9 Pulse 70 Resp 18 B/P (MAP) 140/60 (86) Pulse Ox 94 O2 Delivery Room Air O2 Flow Rate 2.00 Capillary Refill : Less Than 3 Seconds General Appearance: mild distress Neck: supple Respiratory: lungs clear Cardiovascular: regular rate, rhythm Gastrointestinal: soft Rectal: deferred Extremities: other Neurologic/Psychiatric: alert, oriented x 3 Skin: warm/dry Comments 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 Multiple comorbidities including insulin-requiring diabetes. Following his evaluation last night, he has undergone a negative evaluation of the gallbladder using ultrasound. Therefore , his diet could be advanced and he be discharged Admission Status: Observation Clinical Quality Measures DVT/VTE Risk/Contraindication: Risk Factor Score Per Nursin RFS Level Per Nursing on Admit: 4+=Very High WENDY KIMBALL MD Feb 18, 2019 11:10
[2019-02-18 12:00] VITALS: BP 120/55
--- NOTE | 2019-02-18 12:06 | NUR ---
AM DOSE OF GABEPENTIN MISSED D/T NPO STATUS. 1300 DOSE OF GABEPENTIN GIVEN AT THIS TIME.
--- NOTE | 2019-02-18 13:10 | History & Physical-Hospitalist ---
History of Present Illness HPI/Chief Complaint The patient reports initially coming down with cough chest congestion and some chills and fever at least 10 days ago he received IV antibiotics and cough is improved and sputum is no longer purulent but he's developed abdominal distention early satiety with intermittent nausea and vomiting for the past 5 days. He presented emergency room on the with same symptoms felt better after some IV fluids and antibiotics. He denies hematemesis has not had melena and reports no past history of any abdominal surgery. His last bowel movement was yesterday and reportedly somewhat loose he actually had to yesterday which is unusual for him. His bowels have not yet moved today. He reports generalized abdominal discomfort but is little bit worse in the right lower quadrant. CT scan of the abdomen did not reveal any significant pathology last night they were unable to obtain sonography but this morning it has been accomplished and there is no evidence for gallstones or other significant abnormality. He reports that he is hungry this morning and he would like something to eat. His diet is been advanced to clear liquids per Dr. Linder. He doesn't long-standing history of diabetes but no known past history of gastroparesis. Date Seen 02/18/19 Time Seen by a Provider: 07:30 Attending Physician Dat Morton MD PCP Itz Evans MD Referring Physician Date of Admission Feb 17, 2019 at 19:45 Home Medications & Allergies Home Medications Reviewed patient Home Medication Reconciliation performed by pharmacy medication reconciliations earth science laboratory technician and/or nursing. Patients Allergies have been reviewed. Allergies Allergies Coded Allergies No Known Drug Allergies (Mmswwvvv65/17/09) Past Vzsnaqg-Kgcunb-Lcypih Hx Past Med/Social Hx: Reviewed and Corrections made Patient Social History Alcohol Use: Denies Use Recreational Drug Use: No Smoking Status: Current Everyday Smoker Type Used: Cigars Recent Foreign Travel: No Contact w/other who traveled: No Recent Hopitalizations: No Recent Infectious Disease Expo: No Immunizations Up To Date Tetanus Booster (TDap): Unknown Date of Pneumonia Vaccine: Sep 29, 2012 Seasonal Allergies Seasonal Allergies: No Past Medical History Surgeries: Amputation, CABG, Eye Surgery, Orthopedic, Pacemaker, Vascular Surgery Cardiac: Coronary Artery Disease, High Cholesterol, Hypertension, Peripheral Vascular Neurological: Headaches /Migraines, Neuropathy Reproductive: No Genitourinary: Prostate Problems Gastrointestinal: Chronic Constipation Musculoskeletal: Amputee Endocrine: Diabetes, Non-Insulin dep HEENT: Cataract Loss of Vision: Denies Hearing Impairment: Hard of Hearing Psychosocial: Depression History of Blood Disorders: No Adverse Reaction to Blood Pimentel: No Family History Diabetes mellitus GRANDMOTHER FH: leukemia G8 BROTHER Testicular cancer 19 FATHER Review of Systems Constitutional: No no symptoms reported; see HPI; No chills, No diaphoresis, No dizziness, No fever, No malaise, No weakness Respiratory: see HPI, cough, phlegm (Nonpurulent reportedly white.) Cardiovascular: No no symptoms reported; see HPI; No chest pain, No edema; Hx of Intervention (Coronary artery bypass grafting many years ago); No palpitations, No syncope; vascular heart diseas; No other Gastrointestinal: see HPI Physical Exam Physical Exam Vital Signs Vital Signs - First Documented 02/17/19 02/17/19 02/18/19 17:40 20:32 04:27 Temp 97.9 Pulse 70 Resp 18 B/P (MAP) 140/60 (86) Pulse Ox 94 O2 Delivery Room Air O2 Flow Rate 2.00 Capillary Refill : Less Than 3 Seconds Height, Weight, BMI Height: 5'10.00" Weight: 223lbs. 2.3oz. [id number]; 36.4 BMI Method:Stated General Appearance: No Apparent Distress, Obese HEENT: PERRL/EOMI Respiratory: Chest Non Tender, Lungs Clear, Normal Breath Sounds, No Accessory Muscle Use, No Respiratory Distress Cardiovascular: Regular Rate, Rhythm, No Edema, No Gallop, No JVD, No Murmur, Normal Peripheral Pulses Gastrointestinal: No Organomegaly, No Pulsatile Mass, Soft, Other (Mild distention mild right lower and right mid quadrant abdominal discomfort to palpation without rebound or guarding. Bowel sounds are present but somewhat hypoactive throughout) Extremity: Non Tender, No Calf Tenderness, Other (Brawny 1-2+ bilateral edema with chronic venous insufficiency changes and significant dryness extremities are warm but unable to appreciate pulses) Skin: Normal Color, Warm/Dry Results Results/Procedures Labs Laboratory Tests 02/17/19 18:05 02/18/19 06:30 Patient resulted labs reviewed. Assessment/Plan Admission Diagnosis A/P 1. Abdominal pain post viral sounding symptoms with unremarkable CT scan of the abdomen as well as sonography. Physical exam findings do not suggest cholecystitis either but will consider possible gastroparesis. Will initiate metoclopramide and advance diet. 2. 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 3. History of coronary artery disease clinically stable. 4. Apparently long-standing stage III chronic renal disease due to diabetes. This appears to be at baseline. 5. 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 He is being followed in wound care. Admission Status: Inpatient Order (span 2 midnights) Reason for Inpatient Admission: See admission diagnosis. Clinical Quality Measures DVT/VTE Risk/Contraindication: Risk Factor Score Per Nursin RFS Level Per Nursing on Admit: 4+=Very High Copy Copies To 1: KRISTEN MORA MD, MARK D MD Feb 18, 2019 13:10
--- NOTE | 2019-02-18 14:45 | NUR ---
TELEPHONE ORDERS RECEIVED FROM DR BURNHAM TO DISCHARGE PT HOME AND F/U WITH PCP LATER THIS WEEK, PT STATES HE ALREADY HAS AN APPOINTMENT ON WEDNESDAY. ORDERS RECEIVED TO CALL IN 10MG REGLAN 30 MINUTES BEFORE MEALS QTY 90.
[2019-02-18 16:00] VITALS: BP 131/72
[2019-02-18] MEDS ORDERED: METOCLOPRAMIDE 10 MG (REGLAN) TAB PO SCH (16:00)
[2019-02-18] MEDS ORDERED: TAMSULOSIN 0.4 MG (FLOMAX) CAP PO SCH ×2 (21:00)
[2019-02-18] MEDS ORDERED: SERTRALINE 50 MG (ZOLOFT) TABLET PO SCH ×2 (21:00)
[2019-02-18] MEDS ORDERED: ATENOLOL 50 MG (TENORMIN) TAB PO SCH ×2 (21:00)
--- NOTE | 2019-02-19 05:40 | ED Abdominal Pain ---
General Chief Complaint: Abdominal/GI Problems Stated Complaint: ABDOMINAL PAIN Nursing Triage Note: PT CO OF ABD PAIN, BLOATING, WEAKNESS AND INCREASED GAS. STATES MAYBE GALLBLADDER WAS SEEN IN ED ON WEDNESDAY Sepsis Screen: No Definite Risk Source of Information: Patient, Old Records History of Present Illness Date Seen by Provider: Feb 17, 2019 Time Seen by Provider: 17:55 Initial Comments PT ARRIVES VIA POV FROM HOME C/O ABDOMINAL PAIN X 2 WEEKS STATES EARLIER HIS PAIN RADIATED INTO RIGHT CHEST AND BACK--POINTS MORE TO RUQ AREA OF PAIN AT THIS TIME NO NAUSEA OR VOMITING. HAS HAD DIARRHEA FOR SEVERAL DAYS. LAST BM WAS JUST PRIOR TO ARRIVAL AND WAS LOOSE . HAD A NORMAL BM THIS AM. NO BLACK/BLOODY/TARRY STOOLS. HAD TEMP OF 99 NO NEW URINARY SYMPTOMS --PT IS ON MEDICATION FOR URINARY FREQUENCY--WHICH HELPS. NO PAIN ON URINATION STATES HE FELT GOOD THIS AM AND WORKED IN [employer] ALL DAY. 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 STATES HE ATE A BOLOGNA SANDWICH AROUND 1430 AND HAD COOKIES AT 1500. STATES THE PAIN RETURNED ABOUT 30MINUTES AFTER EATING PAIN IS CONSTANT, POSSIBLY WORSE BY EATING AND RELIEVED BY NOTHING. HAS NOT TAKEN ANYTHING FOR SYMPTOMS. STATES NOW HE JUST FEELS VERY WEAK PT WAS SEEN HERE ON WEDNESDAY NIGHT FOR THIS PROBLEM --HAD LAB AND CT SCAN WHICH WERE UNREMARKABLE. HAD AN APPOINTMENT WITH HIS DR LAST WEDNESDAY, BUT CAME HERE INSTEAD. HAS FOLLOW UP APPOINTMENT RESCHEDULED FOR THIS WEDNESDAY. PCP: DR. WILLAMS Allergies and Home Medications Allergies Coded Allergies: No Known Drug Allergies (Verified , 10/15/09) Home Medications Amlodipine Besylate 10 Mg Tablet, 10 MG PO HS, (Reported) Ascorbate Calcium 500 Mg Tablet, 500 MG PO DAILY, (Reported) Aspirin 81 Mg Tablet., 81 MG PO DAILY, (Reported) Atenolol 50 Mg Tablet, 50 MG PO HS, (Reported) Brimonidine Tartrate 5 Ml Drops, 1 DROP OU BID, (Reported) Calcium Carbonate/Vitamin D3 1 Each Tablet, 1 TAB PO DAILY, (Reported) Finasteride 5 Mg Tablet, 5 MG PO DAILY, (Reported) Furosemide 20 Mg Tablet, 20 MG PO DAILY, (Reported) Gabapentin 300 Mg Capsule, 300 MG PO TID, (Reported) Glipizide 10 Mg Tablet, 10 MG PO HS, (Reported) Hydrocodone/Acetaminophen 1 Each Tablet, 1 TAB PO Q6H PRN for PAIN-MODERATE, ( Reported) Lisinopril 20 Mg Tablet, 20 MG PO BID, (Reported) Metformin HCl 1,000 Mg Tablet, 1,000 MG PO BID, (Reported) Multivit-Min/FA/Lycopene/Lut 1 Each Tablet, 1 TAB PO DAILY, (Reported) [place]-3/Dha/Epa/Fish Oil 1 Each Capsule, 1,000 MG PO BID, (Reported) Ondansetron 4 Mg Tab.rapdis, 4 MG PO Q6H PRN for NAUSEA/VOMITING-1ST LINE Prescribed by: ANTHONY ELLSWORTH on 02/13/19 0050 Pravastatin Sodium 40 Mg Tablet, 40 MG PO HS, (Reported) Sertraline HCl 50 Mg Tablet, 50 MG PO HS, (Reported) Tamsulosin HCl 0.4 Mg Cap.er.24h, 0.4 MG PO HS, (Reported) Patient Home Medication List Home Medication List Reviewed: Yes Review of Systems Review of Systems Constitutional: No no symptoms reported; see HPI; No chills, No diaphoresis, No dizziness, No fever; malaise, weakness Respiratory: No Symptoms Reported Cardiovascular: No Symptoms Reported Gastrointestinal: See HPI, Abdominal Pain, Diarrhea; Denies Nausea, Denies Vomiting Musculoskeletal: no symptoms reported Skin: no symptoms reported Psychiatric/Neurological: No Symptoms Reported Endocrine: No Symptoms Reported Past Hfbhfhv-Ckjqcs-Gxofec Hx Past Med/Social Hx: Reviewed and Corrections made Patient Social History Alcohol Use: Denies Use Recreational Drug Use: No Smoking Status: Current Everyday Smoker Type Used: Cigars Recent Foreign Travel: No Contact w/Someone Who Travel: No Recent Infectious Disease Expo: No Recent Hopitalizations: No Physical Abuse: No Sexual Abuse: No Immunizations Up To Date Tetanus Booster (TDap): Unknown Date of Pneumonia Vaccine: Sep 29, 2012 Seasonal Allergies Seasonal Allergies: No Past Medical History Surgeries: Yes (CABG; RIGHT BKA; RIGHT LEG ARTERY BYPASS; PACEMAKER X 2) Amputation, Cardiac, CABG, Eye Surgery, Orthopedic, Pacemaker, Vascular Surgery Respiratory: Yes Pneumonia Cardiac: Yes (CABG; PACEMAKER) Coronary Artery Disease, High Cholesterol, Hypertension, Peripheral Vascular Neurological: No Headaches /Migraines, Neuropathy Reproductive Disorders: No Genitourinary: Yes Prostate Problems Gastrointestinal: Yes Chronic Constipation 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, Non-Insulin dep Cataract Loss of Vision: Denies Hearing Impairment: Hard of Hearing Cancer: No Psychosocial: Yes Depression Integumentary: No Blood Disorders: No Adverse Reaction/Blood Tranf: No Family Medical History Diabetes mellitus GRANDMOTHER FH: leukemia G8 BROTHER Testicular cancer 19 FATHER Physical Exam Vital Signs Vital Signs - First Documented 02/17/19 17:40 Temp 97.9 Pulse 70 Resp 18 B/P (MAP) 140/60 (86) Pulse Ox 94 Capillary Refill : Less Than 3 Seconds Height/Weight/BMI Height: 5'10.00" Weight: 223lbs. 2.3oz. 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 nml as tested, no motor/sensory deficits, alert, normal mood/affect, oriented x 3 Skin: normal color, warm/dry Progress/Results/Core Measures Results/Orders Lab Results Laboratory Tests Test 02/17/19 18:05 Range/Units White Blood Count 6.1 4.3-11.0 10^3/uL Red Blood Count 3.80 L 4.35-5.85 10^6/uL Hemoglobin 11.2 L 13.3-17.7 G/DL Hematocrit 34 L 40-54 % Mean Corpuscular Volume 91 80-99 FL Mean Corpuscular Hemoglobin 30 25-34 PG Mean Corpuscular Hemoglobin Concent 33 32-36 G/DL Red Cell Distribution Width 13.2 10.0-14.5 % Platelet Count 170 130-400 10^3/uL Mean Platelet Volume 10.4 7.4-10.4 FL Neutrophils (%) (Auto) 58 42-75 % Lymphocytes (%) (Auto) 25 12-44 % Monocytes (%) (Auto) 10 0-12 % Eosinophils (%) (Auto) 6 0-10 % Basophils (%) (Auto) 1 0-10 % Neutrophils # (Auto) 3.6 1.8-7.8 X 10^3 Lymphocytes # (Auto) 1.6 1.0-4.0 X 10^3 Monocytes # (Auto) 0.6 0.0-1.0 X 10^3 Eosinophils # (Auto) 0.4 H 0.0-0.3 10^3/uL Basophils # (Auto) 0.0 0.0-0.1 10^3/uL Prothrombin Time 14.0 12.2-14.7 SEC INR Comment 1.1 0.8-1.4 Activated Partial Thromboplast Time 24 24-35 SEC Sodium Level 140 135-145 MMOL/L Potassium Level 4.7 3.6-5.0 MMOL/L Chloride Level 104 98-107 MMOL/L Carbon Dioxide Level 23 21-32 MMOL/L Anion Gap 13 5-14 MMOL/L Blood Urea Nitrogen 30 H 7-18 MG/DL Creatinine 1.55 H 0.60-1.30 MG/DL Estimat Glomerular Filtration Rate 43 BUN/Creatinine Ratio 19 Glucose Level 154 H 70-105 MG/DL Calcium Level 9.3 8.5-10.1 MG/DL Corrected Calcium 9.6 8.5-10.1 MG/DL Magnesium Level 1.8 1.8-2.4 MG/DL Total Bilirubin 0.3 0.1-1.0 MG/DL Aspartate Amino Transf (AST/SGOT) 22 5-34 U/L Alanine Aminotransferase (ALT/SGPT) 16 0-55 U/L Alkaline Phosphatase 62 40-136 U/L Myoglobin 121.5 H 10.0-92.0 NG/ML Troponin I < 0.028 <0.028 NG/ML B-Type Natriuretic Peptide 109.0 H <100.0 PG/ML Total Protein 6.6 6.4-8.2 GM/DL Albumin 3.6 3.2-4.5 GM/DL Lipase 16 8-78 U/L My Orders Orders - FREDDIEHIRAM K DO Abdomen, Flat & Upright/Decub (02/17/19 18:44) Ct Abd/Pelvis Wo(Kidney Stone) (02/17/19 18:44) Ua Culture If Indicated (02/17/19 19:05) Fentanyl Injection (Sublimaze Injection (02/17/19 19:34) Pantoprazole Injection (Protonix Injecti (02/17/19 19:45) Vital Signs/I&O 02/17/19 17:40 Temp 97.9 Pulse 70 Resp 18 B/P (MAP) 140/60 (86) Pulse Ox 94 Blood Pressure Mean: 91 FSBG Bedside Testing Finger Stick Blood Glucose: 177 Blood Glucose Action Taken: RN notified Progress Progress Note : Progress Note NO DETERIORATION IN PT'S CONDITION DURING ER STAY Initial ECG Impression Date: Feb 17, 2019 Initial ECG Impression Time: 18:00 Initial ECG Rate: 71 Comment DUAL PACED RHYTHM Diagnostic Imaging Comments CT CHEST/ABDOMEN/PELVIS--NO ACUTE PROCESS, PER RADIOLOGIST REPORTS AT 1924 Reviewed: Reviewed by Me Departure Communication (Admissions) 1929--SPOKE WITH DR KIMBALL--HERE IN ER --HE ADVISES TO ADMIT TO HOSPITALIST AND HE WILL SEE PT IN CONSULT. HE WILL ARRANGE FOR ULTRASOUND IN AM 1939--SPOKE WITH DR. BURNHAM, HOSPITALIST, ACCEPTS PT FOR ADMIT. Impression Primary Impression: Abdominal pain Disposition: ADMITTED INPATIENT Condition: Improved Admissions Decision to Admit/Date: Feb 17, 2019 Time/Decision to Admit Time: 19:40 Departure-Patient Inst. Referrals: INÉS WILLAMS MD (PCP) Primary Care Physician Patient Instructions: Gastroparesis (Delayed Gastric Emptying) (DC) HIRAM FRAZIER DO Feb 19, 2019 05:40
[2019-02-19] MEDS ORDERED: FUROSEMIDE 20 MG (LASIX) TAB PO SCH (09:00)
[2019-02-19] MEDS ORDERED: FINASTERIDE (PROSCAR) 5 MG TAB PO SCH (09:00)
== END 2019-02-18 16:34 | disposition home or self-care (01) ==
LOC: EDUNIT# 17:40 → ER 17:41 → 4TH 19:45 → UNDOADMOB 19:45 → 4TH 20:45 → UNDODISOB 02-18 17:50
PROVIDERS: ADMIT Internal Medicine; ATTEND Internal Medicine
DX: R10.9 Unspecified abdominal pain (principal); E11.40 Type 2 diabetes mellitus with diabetic neuropathy, unspecified; I25.10 Atherosclerotic heart disease of native coronary artery without angina pectoris; E11.22 Type 2 diabetes mellitus with diabetic chronic kidney disease; N18.3 Chronic kidney disease, stage 3 (moderate); Z79.899 Other long term (current) drug therapy; F17.210 Nicotine dependence, cigarettes, uncomplicated; I12.9 Hypertensive chronic kidney disease with stage 1 through stage 4 chronic kidney disease, or unspecified chronic kidney disease; K59.09 Other constipation; F32.9 Major depressive disorder, single episode, unspecified; H91.90 Unspecified hearing loss, unspecified ear; E78.00 Pure hypercholesterolemia, unspecified; Z95.1 Presence of aortocoronary bypass graft; Z95.0 Presence of cardiac pacemaker; Z79.82 Long term (current) use of aspirin; Z79.84 Long term (current) use of oral hypoglycemic drugs
CPT/HCPCS: 36415; 71045; 74019; 74176; 76700; 80053; 80061; 82150; 82962; 83690; 83735; 83874; 83880; 84484; 85025; 85610; 85730; 93005; 93041; G0378

== ENCOUNTER → 2019-02-28 | Outpatient (CLI) | payer MEDICARE ==
[~2019-02-28] MED LIST changes: +BRIM5DRO2 OU; +FINA5TAB6 PO; +FURO20TA4 PO; +HYDR-3820 PO
--- NOTE | 2019-02-28 18:54 | Diagnostic Imaging Report ---
INDICATION: Right hip pain. No known injury. TECHNIQUE: 2 views of the right hip. CORRELATION STUDY: None FINDINGS: Mild joint space narrowing is noted. Femoral acetabular relationship otherwise maintained. Bony trabecular pattern is intact. Extensive surgical clips within the right inguinal region as well as vascular calcification. IMPRESSION: 1. Negative for acute bony abnormality of the right hip. Mild degenerative changes. Significant vascular calcification. Dictated by: Dictated on workstation # [id number]
== END ==
LOC: RAD 15:48
PROVIDERS: ATTEND Family Medicine
DX: M17.11 Unilateral primary osteoarthritis, right knee (principal)
CPT/HCPCS: 73502

== ENCOUNTER → 2019-04-03 | Outpatient (CLI) | payer MEDICARE ==
--- NOTE | 2019-04-03 09:31 | Diagnostic Imaging Report ---
INDICATION: Right upper quadrant pain. TECHNIQUE: Multiple grayscale sonographic images were obtained of the right upper quadrant of the abdomen. CORRELATION STUDY: None FINDINGS: LIVER: There is diffuse increased echotexture within the visualized portions of the liver. Echogenic foci posteriorly likely of no significance. There is normal, hepatopedal direction of flow within the main portal vein. Liver size 18 cm. GALLBLADDER: The gallbladder demonstrates no definitive shadowing gallstones. No abnormal gallbladder wall thickening or pericholecystic fluid. COMMON BILE DUCT: Not visualized but without findings to suggest overt dilatation. PANCREAS: Largely obscured. RIGHT KIDNEY: Measures 12.1 cm. No hydronephrosis. AORTA/IVC: Not well visualized. OTHER: None. IMPRESSION: 1. Changes suggesting hepatic steatosis. 2. Negative for gallstones. Dictated by: Dictated on workstation # [id number]
== END ==
LOC: RAD 06:33
PROVIDERS: ATTEND Surgery
DX: R10.11 Right upper quadrant pain (principal); M25.511 Pain in right shoulder
CPT/HCPCS: 76705

== ENCOUNTER → 2019-04-20 | Outpatient (CLI) | payer MEDICARE ==
[~2019-04-20] MED LIST changes: +CATHETER FLUSH 10 ML SYR IV PRN
--- NOTE | 2019-04-20 14:32 | Diagnostic Imaging Report ---
Indication: Abdominal pain. The patient was administered 5.2 mCi technetium 99m Choletec intravenously and imaging over the abdomen was performed. At 30 minutes, the patient ingested 8 ounces of Ensure and the gallbladder ejection fraction was calculated. No abdominal discomfort was reported during the exam. There is homogeneous uptake of activity by the liver. There is prompt excretion of activity into the common duct and gallbladder. Normal passage of activity into the small bowel is seen. There does appear to be some gastric reflux. Gallbladder ejection fraction is normal at 58%. Impression: 1. Patent cystic duct and common bile duct. 2. Normal gallbladder ejection fraction of 58%. 3. Findings consistent with bile reflux into the stomach. Dictated by: Dictated on workstation # [id number]
== END ==
LOC: CARD 09:24
PROVIDERS: ATTEND Surgery
DX: R10.11 Right upper quadrant pain (principal); M25.511 Pain in right shoulder
CPT/HCPCS: 78227

== ENCOUNTER 2019-05-07 05:46 | Inpatient (IN) | payer MEDICARE ==
[2019-05-07] VITALS (16 sets, daily range): BP systolic 107–172; BP diastolic 44–66
[~2019-05-07] VITALS: Ht 177.8 cm; Wt 106.4 kg
[~2019-05-07 05:46] MED LIST changes: -CATHETER FLUSH 10 ML SYR IV PRN
[2019-05-07 06:01] LABS: BILIRUBIN,URINE NEGATIVE (NEGATIVE); CLARITY,URINE CLEAR; COLOR,URINE YELLOW; GLUCOSE, URINE (UA) 4+ (NEGATIVE); KETONES,URINE NEGATIVE (NEGATIVE); LEUKOCYTE ESTERASE ,URINE NEGATIVE (NEGATIVE); NITRITE,URINE NEGATIVE (NEGATIVE); PH,URINE 5 (5-9); PROTEIN,URINE 2+ (NEGATIVE); UROBILINOGEN,URINE NORMAL (NORMAL)
[2019-05-07] MEDS ORDERED: NS IV 1000 ML 1,000 ML IV ONE (06:03)
[2019-05-07 06:09] LABS: BACTERIA,URINE FEW /HPF; SQUAMOUS EPITHELIAL CELL,UR 0-2 /HPF
[2019-05-07 06:10] LABS: BASOPHILS % (AUTO) 0 % (0-10); EOSINOPHILS # (AUTO) 0.1 10^3/uL (0.0-0.3); EOSINOPHILS % (AUTO) 1 % (0-10); HEMATOCRIT 41 % (40-54); HEMOGLOBIN 13.4 G/DL (13.3-17.7); LYMPHOCYTES # (AUTO) 1.6 X 10^3 (1.0-4.0); LYMPHOCYTES % (AUTO) 17 % (12-44); MEAN CORPUSCULAR HEMOGLOBIN 29 PG (25-34); MEAN CORPUSCULAR HGB CONC 33 G/DL (32-36); MEAN CORPUSCULAR VOLUME 88 FL (80-99); MEAN PLATELET VOLUME 10.2 FL (7.4-10.4); MONOCYTES # (AUTO) 0.4 X 10^3 (0.0-1.0); MONOCYTES % (AUTO) 4 % (0-12); NEUTROPHILS # (AUTO) 7.4 X 10^3 (1.8-7.8); NEUTROPHILS % (AUTO) 77 % (42-75); PLATELET COUNT 204 10^3/uL (130-400); RED CELL DISTRIBUTION WIDTH 13.5 % (10.0-14.5); WHITE BLOOD COUNT 9.6 10^3/uL (4.3-11.0)
[2019-05-07] MEDS ORDERED: ONDANSETRON 4 MG/2 ML (SDV) Z0FRAN IVP ONE (06:15)
[2019-05-07] MEDS ORDERED: fentaNYL INJECTION 100 MCG/2 ML AMP IVP ONE ×3 (06:15→14:15)
--- NOTE | 2019-05-07 06:19 | ED Abdominal Pain ---
General Chief Complaint: Abdominal/GI Problems Stated Complaint: ABD PAIN Nursing Triage Note: Pt to room #5 via personal w/c with c/o rt lower quadrant abd pain radiating to rt upper quadrant. Reports discomfort began on the night of 05/06/19. Reports symptoms to be accompanied by nausea but has not experienced emesis. Denies recent fever or chills. Pt noted to be moaning in pain. Sepsis Screen: No Definite Risk Source of Information: Patient, Family, Old Records Exam Limitations: No Limitations History of Present Illness Date Seen by Provider: May 07, 2019 Time Seen by Provider: 05:51 Initial Comments This 83-year-old gentleman presents to the emergency room with recurrent abdominal pain. Today his abdominal pain is most prominent in the right lower quadrant and radiated to the right upper quadrant and back. This particular exacerbation of recurrent pain started early this morning. He has associated nausea and vomiting. He has been under workup with Dr. Henderson. Most recently he had a gallbladder ultrasound and a hepatobiliary scan. These studies were remarkable for steatosis of the liver and biliary reflux induced diabetic. Ejection fraction was normal. There were no stones and no evidence of cholecystitis. Patient is retching and in obvious discomfort upon arrival. Allergies and Home Medications Allergies Coded Allergies: No Known Drug Allergies (Verified , 10/15/09) Home Medications Amlodipine Besylate 10 Mg Tablet, 10 MG PO HS, (Reported) Ascorbate Calcium 500 Mg Tablet, 500 MG PO DAILY, (Reported) Aspirin 325 Mg Tablet.dr, 325 MG PO DAILY, (Reported) Atenolol 50 Mg Tablet, 25 MG PO HS, (Reported) TAKES 1/2 (50MG) TABLET Brimonidine Tartrate 5 Ml Drops, 1 DROP OU DAILY PRN for EYE IRRITATION, (Reported) Calcium Carbonate/Vitamin D3 1 Each Tablet, 1 TAB PO DAILY, (Reported) Finasteride 5 Mg Tablet, 5 MG PO DAILY, (Reported) Furosemide 20 Mg Tablet, 20 MG PO DAILY, (Reported) LAST FILLED 01-07-19 #90 Gabapentin 300 Mg Capsule, 300 MG PO BID, (Reported) Glipizide 10 Mg Tablet, 10 MG PO HS, (Reported) Hydrocodone/Acetaminophen 1 Each Tablet, 1 TAB PO Q6H PRN for PAIN-MODERATE, (Reported) Lisinopril 20 Mg Tablet, 40 MG PO DAILY, (Reported) TAKES 2 (20MG) TABLETS Metformin HCl 1,000 Mg Tablet, 1,000 MG PO BID, (Reported) Multivit-Min/FA/Lycopene/Lut 1 Each Tablet, 1 TAB PO DAILY, (Reported) [place]-3/Dha/Epa/Fish Oil 1 Each Capsule, 1,000 MG PO BID, (Reported) Pravastatin Sodium 40 Mg Tablet, 40 MG PO HS, (Reported) Sertraline HCl 50 Mg Tablet, 50 MG PO HS, (Reported) Tamsulosin HCl 0.4 Mg Cap, 0.4 MG PO HS, (Reported) Patient Home Medication List Home Medication List Reviewed: Yes Review of Systems Review of Systems Constitutional: no symptoms reported EENTM: No Symptoms Reported Respiratory: No Symptoms Reported Cardiovascular: No Symptoms Reported Gastrointestinal: See HPI Genitourinary: No Symptoms Reported Musculoskeletal: no symptoms reported Skin: no symptoms reported Psychiatric/Neurological: No Symptoms Reported Endocrine: No Symptoms Reported Hematologic/Lymphatic: No Symptoms Reported Past Awqddkp-Xdysmy-Zmygsp Hx Past Med/Social Hx: Reviewed and Corrections made Patient Social History Type Used: Cigars Recent Foreign Travel: No Contact w/Someone Who Travel: No Recent Infectious Disease Expo: No Recent Hopitalizations: No Immunizations Up To Date Tetanus Booster (TDap): Unknown Date of Pneumonia Vaccine: Sep 29, 2012 Seasonal Allergies Seasonal Allergies: No Past Medical History Surgeries: Yes (CABG; RIGHT BKA; RIGHT LEG ARTERY BYPASS; PACEMAKER X 2) Amputation, Cardiac, CABG, Eye Surgery, Orthopedic, Pacemaker, Vascular Surgery Respiratory: Yes Pneumonia Cardiac: Yes (CABG; PACEMAKER) Coronary Artery Disease, High Cholesterol, Hypertension, Peripheral Vascular Neurological: Yes Headaches /Migraines, Neuropathy Reproductive Disorders: No Genitourinary: Yes Prostate Problems Gastrointestinal: Yes Chronic Constipation 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, Non-Insulin dep HEENT: Yes Cataract Loss of Vision: Denies Hearing Impairment: Hard of Hearing Cancer: No Psychosocial: Yes Depression Integumentary: No Blood Disorders: No Adverse Reaction/Blood Tranf: No Family Medical History Reviewed Nursing Family Hx Diabetes mellitus GRANDMOTHER FH: leukemia G8 BROTHER Testicular cancer 19 FATHER Physical Exam Vital Signs Vital Signs - First Documented 05/07/19 05:52 Temp 97.4 Pulse 70 Resp 18 B/P (MAP) 165/66 (99) Pulse Ox 98 O2 Delivery Room Air Capillary Refill : Less Than 3 Seconds Height/Weight/BMI Height: 5'10.00" Weight: 232lbs. 2.3oz. 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, no motor/sensory deficits, alert, normal mood/affect, oriented x 3 Skin: normal color, warm/dry Progress/Results/Core Measures Results/Orders Lab Results Laboratory Tests Test 05/07/19 05:54 05/07/19 06:00 Range/Units Urine Color YELLOW Urine Clarity CLEAR Urine pH 5 5-9 Urine Specific [place] 1.020 1.016-1.022 Urine Protein 2+ H NEGATIVE Urine Glucose (UA) 4+ H NEGATIVE Urine Ketones NEGATIVE NEGATIVE Urine Nitrite NEGATIVE NEGATIVE Urine Bilirubin NEGATIVE NEGATIVE Urine Urobilinogen NORMAL NORMAL MG/DL Urine Leukocyte Esterase NEGATIVE NEGATIVE Urine RBC (Auto) NEGATIVE NEGATIVE Urine RBC NONE /HPF Urine WBC NONE /HPF Urine Squamous Epithelial Cells 0-2 /HPF Urine Crystals NONE /LPF Urine Bacteria FEW H /HPF Urine Casts NONE /LPF Urine Mucus NEGATIVE /LPF Urine Culture Indicated NO White Blood Count 9.6 4.3-11.0 10^3/uL Red Blood Count 4.60 4.35-5.85 10^6/uL Hemoglobin 13.4 13.3-17.7 G/DL Hematocrit 41 40-54 % Mean Corpuscular Volume 88 80-99 FL Mean Corpuscular Hemoglobin 29 25-34 PG Mean Corpuscular Hemoglobin Concent 33 32-36 G/DL Red Cell Distribution Width 13.5 10.0-14.5 % Platelet Count 204 130-400 10^3/uL Mean Platelet Volume 10.2 7.4-10.4 FL Neutrophils (%) (Auto) 77 H 42-75 % Lymphocytes (%) (Auto) 17 12-44 % Monocytes (%) (Auto) 4 0-12 % Eosinophils (%) (Auto) 1 0-10 % Basophils (%) (Auto) 0 0-10 % Neutrophils # (Auto) 7.4 1.8-7.8 X 10^3 Lymphocytes # (Auto) 1.6 1.0-4.0 X 10^3 Monocytes # (Auto) 0.4 0.0-1.0 X 10^3 Eosinophils # (Auto) 0.1 0.0-0.3 10^3/uL Basophils # (Auto) 0.0 0.0-0.1 10^3/uL Sodium Level 139 135-145 MMOL/L Potassium Level 4.8 3.6-5.0 MMOL/L Chloride Level 105 98-107 MMOL/L Carbon Dioxide Level 23 21-32 MMOL/L Anion Gap 11 5-14 MMOL/L Blood Urea Nitrogen 21 H 7-18 MG/DL Creatinine 1.43 H 0.60-1.30 MG/DL Estimat Glomerular Filtration Rate 47 BUN/Creatinine Ratio 15 Glucose Level 328 H 70-105 MG/DL Calcium Level 9.7 8.5-10.1 MG/DL Corrected Calcium 9.6 8.5-10.1 MG/DL Total Bilirubin 0.4 0.1-1.0 MG/DL Aspartate Amino Transf (AST/SGOT) 18 5-34 U/L Alanine Aminotransferase (ALT/SGPT) 16 0-55 U/L Alkaline Phosphatase 70 40-136 U/L Lactate Dehydrogenase 196 125-220 U/L Total Protein 7.3 6.4-8.2 GM/DL Albumin 4.1 3.2-4.5 GM/DL Lipase 29 8-78 U/L My Orders Orders - DARLEEN FIELDS MD Cbc With Automated Diff (05/07/19 06:03) Comprehensive Metabolic Panel (05/07/19 06:03) Lipase (05/07/19 06:03) Ondansetron Injection (Zofran Injectio (05/07/19 06:15) Ns Iv 1000 Ml (Sodium Chloride 0.9%) (05/07/19 06:03) Fentanyl Injection (Sublimaze Injection (05/07/19 06:15) LDH (05/07/19 06:20) Ct Abdomen/Pelvis W Wo (05/07/19 06:44) Fentanyl Injection (Sublimaze Injection (05/07/19 07:00) Promethazine Injection (Phenergan Injec (05/07/19 07:00) Promethazine Injection (Phenergan Injec (05/07/19 06:49) Lactated Ringers (Lr 1000 Ml Iv Solution (05/07/19 06:58) Promethazine Injection (Phenergan Injec (05/07/19 07:45) Morphine Injection (Morphine Injection (05/07/19 07:31) Ketorolac Injection (Toradol Injection) (05/07/19 08:30) Medications Given in ED Current Medications Medications Dose Ordered Sig/Abbie Route Start Time Stop Time Status Last Admin Dose Admin Fentanyl Citrate 50 mcg ONCE ONCE IVP 05/07/19 06:15 05/07/19 06:16 DC 05/07/19 06:12 50 MCG Fentanyl Citrate 50 mcg ONCE ONCE IVP 05/07/19 07:00 05/07/19 07:01 DC 05/07/19 06:52 50 MCG Lactated Ringer's 1,000 ml @ 0 mls/hr Q0M ONCE IV 05/07/19 06:58 05/07/19 06:59 DC 05/07/19 07:44 1,000 MLS/HR Ondansetron HCl 8 mg ONCE ONCE IVP 05/07/19 06:15 05/07/19 06:16 DC 05/07/19 06:11 8 MG Promethazine HCl 6.25 mg ONCE ONCE IVP 05/07/19 07:00 05/07/19 07:01 DC 05/07/19 06:54 6.25 MG Promethazine HCl 12.5 mg ONCE ONCE IVP 05/07/19 07:45 05/07/19 07:46 DC 05/07/19 07:44 12.5 MG Sodium Chloride 1,000 ml @ 0 mls/hr Q0M ONCE IV 05/07/19 06:03 05/07/19 06:05 DC 05/07/19 06:11 0 MLS/HR Vital Signs/I&O 05/07/19 05:52 Temp 97.4 Pulse 70 Resp 18 B/P (MAP) 165/66 (99) Pulse Ox 98 O2 Delivery Room Air Blood Pressure Mean: 99 Progress Progress Note #1: Time: 06:29 Progress Note Patient has been seen and examined. Zofran and fentanyl have been ordered for treatment of symptoms. IV fluids are infusing. Labs are pending. I have discussed the case with Dr. Henderson. If creatinine will support CT with contrast, we will consider obtaining a CT for further evaluation. Progress Note #2: Time: 06:55 Progress Note Patient has had persistent pain and vomiting. An additional 50 g of fentanyl were administered along with 6.25 mg of Phenergan. Patient is being given supplemental oxygen due to hypoxia from the medications. Patient's case was discussed with Dr. Henderson. We have decided to proceed with CT abdomen and pelvis with and without contrast. Presence of calcifications has made presence of renal stones difficult to detect in the past. Patient's symptoms may be consistent with ureteral stone. Patient's last 2 scans were done without contrast. I believe it is important to perform a study with contrast to assess for other pathology such as ischemic bowel, appendicitis, etc. We will hydrate the patient aggressively to help prevent nephropathy. He has received 1 L normal saline already. Progress Note #3: Time: 07:[address] was obtained. Patient returned from CT still retching and in pain. Phenergan 12.5 mg and morphine have been ordered. Progress Note #4: Time: 08:38 Progress Note Patient is still symptomatic with dry heaving. Phenergan is still infusing in his bag of IV fluids. CT scan revealed no specific pathology to explain his pain and vomiting. There was question of sludge in the gallbladder but this was not seen on prior ultrasound. We will obtain a new urine specimen as the one initially processed was collected at home right before arrival. A urine drug screen will also be performed. Patient denies any use of marijuana. Case has been reviewed with Dr. Mckeon and Dr. Henderson who are agreeable to admission. Patient has received 1 L of IV normal saline and is currently receiving 1 L of LR. Progress Note #5: Time: 09:17 Progress Note Patient is now resting comfortably. CT had been read by the [facility] radiologist who noted pneumatosis in the cecum. There is no concern for ischemic bowel. I discussed the CT with Dr. Gallardo who reviewed the images again and agrees with the [facility] finding. He recommended CT angiography despite the mild elevation in creatinine. Patient was hydrated with 2 L of fluid for nephropathy prophylaxis. CT angiogram has been ordered. Case has been discussed with Dr. Henderson who is coming in to assess the patient. Dr. Mckeon has been updated. Progress Note #6: Time: 09:[address] Henderson has seen and assessed the patient. Based on his assessment, we anticipate the patient going to surgery promptly. CT angiogram read is still pending. Patient is fairly comfortable at this time. Dr. Mckeon has been updated. Diagnostic Imaging Diagonstic Imaging: CT Plain Films/CT/US/NM/MRI: abdomen, pelvis Comments CT abdomen and pelvis viewed by me and report reviewed. See report below: NAME: JOSE ADKINS [facility] REC#: [id number] PT STATUS: REG ER : 1935 PHYSICIAN: DARLEEN FIELDS MD ADMIT DATE: 05/07/19/ER Signed Date of Exam: 05/07/19 CT ABDOMEN/PELVIS W WO PROCEDURE: CT abdomen and pelvis with and without contrast. TECHNIQUE: Precontrast acquisitions were acquired through the abdomen and pelvis. Multiple contiguous axial images were obtained through the abdomen and pelvis after the administration of intravenous contrast. Auto Exposure Controls were utilized during the CT exam to meet ALARA standards for radiation dose reduction. INDICATION: Abdominal pain. COMPARISON: CT abdomen and pelvis without and with IV contrast 02/17/2019. FINDINGS: Cardiomegaly. Tiny amount of layering sludge or gallstones dependently in the gallbladder. Diffuse advanced atherosclerotic calcifications including a normal caliber abdominal aorta. The liver, pancreas, spleen, adrenals, kidneys, collecting systems, bladder and appendix are negative. Enlarged prostate. No free intraperitoneal air or fluid. No lymphadenopathy. No evidence of bowel obstruction or inflammation. Moderate spondylotic changes are more advanced at L5-S1. No acute osseous findings. IMPRESSION: 1. No acute CT findings in the abdomen or pelvis. 2. Cardiomegaly. 3. Small amount of layering sludge or gallstones dependently in the gallbladder. No secondary findings of cholecystitis. 4. Enlarged prostate. Dictated by: Dictated on workstation # [id number] Dict: 05/07/19 0744 Trans: 05/07/19827 Interpreted by: NICHOLAS GALLARDO MD Electronically signed by: NICHOLAS GALLARDO MD 05/07/19827 Departure Communication (Admissions) Time/Spoke to Admitting y: 08:25 Dr. Mckeon Time/Spoke to Consulting Phy: 08:00 Dr. Henderson Impression Primary Impression: Ischemic bowel disease Additional Impressions: Right-sided abdominal pain of unknown cause Intractable nausea and vomiting Qualified Codes: R11.2 - Nausea with vomiting, unspecified Disposition: 09 ADMITTED INPATIENT Condition: Improved Admissions Decision to Admit Reason: Admit from ER (General) Decision to Admit/Date: May 07, 2019 Time/Decision to Admit Time: 07:55 Departure-Patient Inst. Referrals: INÉS WILLAMS MD (PCP/Family) Primary Care Physician DARLEEN FIELDS MD May 07, 2019 06:19
[2019-05-07 06:32] LABS: ALBUMIN 4.1 GM/DL (3.2-4.5); BILIRUBIN,TOTAL 0.4 MG/DL (0.1-1.0); CALCIUM 9.7 MG/DL (8.5-10.1); CREATININE SERUM 1.43 MG/DL (0.60-1.30); POTASSIUM 4.8 MMOL/L (3.6-5.0); TOTAL PROTEIN 7.3 GM/DL (6.4-8.2)
[2019-05-07] MEDS ORDERED: PROMETHAZINE INJ 25 MG/ML (PHENERGAN) AMP ONE (06:49)
[2019-05-07] MEDS ORDERED: LACTATED RINGERS 1,000 ML IV ONE (06:58)
[2019-05-07] MEDS ORDERED: PROMETHAZINE INJ 25 MG/ML (PHENERGAN) AMP IVP ONE ×2 (07:00→07:45)
[2019-05-07] MEDS ORDERED: morphine INJ 10 MG/ML 1ML (SYR OR VIAL) IVP STA (07:31)
--- NOTE | 2019-05-07 07:54 | Diagnostic Imaging Report ---
PROCEDURE: CT abdomen and pelvis with and without contrast. TECHNIQUE: Precontrast acquisitions were acquired through the abdomen and pelvis. Multiple contiguous axial images were obtained through the abdomen and pelvis after the administration of intravenous contrast. Auto Exposure Controls were utilized during the CT exam to meet ALARA standards for radiation dose reduction. INDICATION: Abdominal pain. COMPARISON: CT abdomen and pelvis without and with IV contrast 02/17/2019. FINDINGS: Cardiomegaly. Tiny amount of layering sludge or gallstones dependently in the gallbladder. Diffuse advanced atherosclerotic calcifications including a normal caliber abdominal aorta. The liver, pancreas, spleen, adrenals, kidneys, collecting systems, bladder and appendix are negative. Enlarged prostate. No free intraperitoneal air or fluid. No lymphadenopathy. No evidence of bowel obstruction or inflammation. Moderate spondylotic changes are more advanced at L5-S1. No acute osseous findings. IMPRESSION: 1. No acute CT findings in the abdomen or pelvis. 2. Cardiomegaly. 3. Small amount of layering sludge or gallstones dependently in the gallbladder. No secondary findings of cholecystitis. 4. Enlarged prostate. Dictated by: Dictated on workstation # [id number]
[2019-05-07] MEDS ORDERED: KETOROLAC 30 MG/ML VIAL IVP ONE (08:30)
--- NOTE | 2019-05-07 09:20 | NUR ---
Pt to go to floor. Dr. Gao told this nurse not to take pt to floor at this time. Dr. Henderson to come and see pt in ED for surgery consult. Kiara on 4th notified.
[2019-05-07] MEDS ORDERED: NS 100 ML (IVPB) BAG IV ONE (09:30)
[2019-05-07] MEDS ORDERED: HOLD METFORMIN - RECEIVED CONTRAST 20 ML VIAL IV SCH (09:30)
[2019-05-07] MEDS ORDERED: IOHEXOL 350 MG/ML 100 ML (OMNIPAQUE 350) VIAL IV ONE (09:30)
--- NOTE | 2019-05-07 10:11 | Diagnostic Imaging Report ---
Indication: Abdominal pain Technique: Multiple contiguous axial images were obtained through the abdomen and pelvis after the uneventful bolus administration of intravenous contrast. Sagittal and coronal MIP reconstructions with then performed. Findings: There is some bibasal atelectasis and/or pneumonitis. There may be trace bilateral pleural effusions. The liver is normal in size. Gallbladder is unremarkable. There is no biliary ductal dilatation. There is no evidence of portal venous gas. Spleen is normal. Pancreas and adrenal glands are unremarkable. There are some renal cyst. There is moderate atherosclerotic calcification of the aorta which is nonaneurysmal. There is marked calcification about the ostia of the superior mesenteric artery however it appears to remain patent. There is moderate plaque about the celiac. There is plaquing at the ostia of the RAUL as well however it remains patent. Note is again made of what appears be some pneumatosis of the cecum with a small amount of venous gas. There is moderate amount of retained fecal material which may reflect some degree of constipation. There is no free air. Bladder is normal. There is no pelvic mass or adenopathy. There are degenerative changes in the spine. IMPRESSION: Persistent pneumatosis and a small amount of venous gas in the right lower quadrant near the cecum. Additionally there is some fluid in the right paracolic gutter which is increased slightly since prior examination from earlier the same day. Again, while this may be ischemic other etiologies cannot be excluded. Recommend clinical correlation. Marked atherosclerotic calcification of the abdominal aorta as well as in the origin of the mesenteric vessels as described. There is however no evidence of occlusion of the celiac, superior mesenteric or in the inferior mesenteric arteries proximally. Cardiomegaly and some bibasilar atelectasis and/or pneumonitis and trace pleural fluid. Moderate amount of retained fecal material which may reflect some degree of constipation. . Dictated by: Dictated on workstation # [id number]
[2019-05-07] MEDS ORDERED: metroNIDAZOLE 500MG/100ML IVPB IV ONE (10:30)
[2019-05-07] MEDS ORDERED: ceFAZolin 2 GM IV Premixed 50 ML IV ONE (10:30)
[2019-05-07 10:31] LABS: BILIRUBIN,URINE NEGATIVE (NEGATIVE); CLARITY,URINE CLEAR; COLOR,URINE YELLOW; GLUCOSE, URINE (UA) 4+ (NEGATIVE); KETONES,URINE 2+ (NEGATIVE); LEUKOCYTE ESTERASE ,URINE NEGATIVE (NEGATIVE); NITRITE,URINE NEGATIVE (NEGATIVE); PH,URINE 5 (5-9); PROTEIN,URINE 2+ (NEGATIVE); UROBILINOGEN,URINE NORMAL (NORMAL)
--- NOTE | 2019-05-07 10:33 | History & Physical-Surgical ---
History of Present Illness History of Present Illness Reason for visit/HPI cc: Abdominal pain Patient is an 83 year old male who has been having abdominal pain on and off for about last month. Patient with severe right lower quadrant abdominal pain that has recurred and now severe. Having nausea and vomiting. Patient had ct scan that has pneumotosis and venous mesenteric gas around the cecum. Patient is a diabetic as well. Movement makes worse or pushing on abdomen severe. Laying still slightly better. Date of Admission T Date Seen by a Provider: May 07, 2019 Time Seen by a Provider: 09:54 I consulted on this patient on 05/07/19 10:28 Attending Physician Admitting Physician Itz Evans MD Consult Allergies and Home Medications Allergies Coded Allergies: No Known Drug Allergies (Verified , 10/15/09) Home Medications Amlodipine Besylate 10 Mg Tablet, 10 MG PO HS, (Reported) Ascorbate Calcium 500 Mg Tablet, 500 MG PO DAILY, (Reported) Aspirin 81 Mg Tablet.dr, 81 MG PO DAILY, (Reported) Atenolol 50 Mg Tablet, 50 MG PO HS, (Reported) Brimonidine Tartrate 5 Ml Drops, 1 DROP OU BID, (Reported) Calcium Carbonate/Vitamin D3 1 Each Tablet, 1 TAB PO DAILY, (Reported) Finasteride 5 Mg Tablet, 5 MG PO DAILY, (Reported) Furosemide 20 Mg Tablet, 20 MG PO DAILY, (Reported) Gabapentin 300 Mg Capsule, 300 MG PO TID, (Reported) Glipizide 10 Mg Tablet, 10 MG PO HS, (Reported) Hydrocodone/Acetaminophen 1 Each Tablet, 1 TAB PO Q6H PRN for PAIN-MODERATE, (Reported) Lisinopril 20 Mg Tablet, 20 MG PO BID, (Reported) Metformin HCl 1,000 Mg Tablet, 1,000 MG PO BID, (Reported) Multivit-Min/FA/Lycopene/Lut 1 Each Tablet, 1 TAB PO DAILY, (Reported) Morrison-3/Dha/Epa/Fish Oil 1 Each Capsule, 1,000 MG PO BID, (Reported) Ondansetron 4 Mg Tab.rapdis, 4 MG PO Q6H PRN for NAUSEA/VOMITING-1ST LINE Prescribed by: ANTHONY ELLSWORTH on 02/13/19 0050 Pravastatin Sodium 40 Mg Tablet, 40 MG PO HS, (Reported) Sertraline HCl 50 Mg Tablet, 50 MG PO HS, (Reported) Tamsulosin HCl 0.4 Mg Cap.er.24h, 0.4 MG PO HS, (Reported) Patient Home Medication List Home Medication List Reviewed: Yes Past Mizebao-Cwolrv-Emnndz Hx Patient Social History Alcohol Use: Denies Use Recreational Drug Use: No Smoking Status: Current Someday Smoker Type Used: Cigars 2nd Hand Smoke Exposure: Yes Recent Foreign Travel: No Contact w/Someone Who Travel: No Recent Infectious Disease Expo: No Recent Hopitalizations: No Immunizations Up To Date Tetanus Booster (TDap): Unknown Date of Pneumonia Vaccine: Sep 29, 2012 Seasonal Allergies Seasonal Allergies: No Surgeries History of Surgeries: Yes (CABG; RIGHT BKA; RIGHT LEG ARTERY BYPASS; PACEMAKER X 2) Surgeries: Amputation, Cardiac, CABG, Eye Surgery, Orthopedic, Pacemaker, Vas cular Surgery Respiratory History of Respiratory Disorde: Yes Respiratory Disorders: Pneumonia Cardiovascular History of Cardiac Disorders: Yes (CABG; PACEMAKER) Cardiac Disorders: Coronary Artery Disease, High Cholesterol, Hypertension, Peripheral Vascular Neurological History of Neurological Disord: Yes Neurological Disorders: Headaches /Migraines, Neuropathy Reproductive System Hx Reproductive Disorders: No Genitourinary History of Genitourinary Disor: Yes Genitourinary Disorders: Prostate Problems Gastrointestinal History of Gastrointestinal Di: Yes Gastrointestinal Disorders: Chronic Constipation Musculoskeletal History of Musculoskeletal Dis: Yes (RIGHT BKA) Musculoskeletal Disorders: Amputee Endocrine History of Endocrine Disorders: Yes Endocrine Disorders: Diabetes, Non-Insulin dep HEENT History of HEENT Disorders: Yes HEENT Disorders: Cataract Loss of Vision: Denies Hearing Impairment: Hard of Hearing Cancer History of Cancer: No Psychosocial History of Psychiatric Problem: Yes Behavioral Health Disorders: Depression Integumentary History of Skin or Integumenta: No Blood Transfusions History of Blood Disorders: No Adverse Reaction to a Blood Tr: No Family Medical History Significant Family History: No Pertinent Family Hx Family Medial History: Diabetes mellitus GRANDMOTHER FH: leukemia G8 BROTHER Testicular cancer 19 FATHER Review of Systems Constitutional: see HPI EENTM: no symptoms reported Respiratory: no symptoms reported Cardiovascular: no symptoms reported Gastrointestinal: see HPI Genitourinary: no symptoms reported Musculoskeletal: no symptoms reported Skin: no symptoms reported Psychiatric/Neurological: No Symptoms Reported Physical Exam Vital Signs Vital Signs - First Documented 05/07/19 05/07/19 05:52 09:06 Temp 97.4 Pulse 70 Resp 18 B/P (MAP) 165/66 (99) Pulse Ox 98 O2 Delivery Room Air O2 Flow Rate 2.00 Capillary Refill : Less Than 3 Seconds Height, Weight, BMI Height: 5'10.00" Weight: 232lbs. 2.3oz. [id number]; 36.4 BMI Method:Stated General Appearance: Mild Distress HEENT: PERRL/EOMI, Normal ENT Inspection Neck: Full Range of Motion, Normal Inspection, Non Tender Respiratory: Chest Non Tender, No Accessory Muscle Use, No Respiratory Distress Cardiovascular: Regular Rate, Rhythm Gastrointestinal: Tenderness (peritoneal, pain out of proportion to exam, consistent with ischemic bowel) Rectal: Deferred Back: No CVA Tenderness Extremity: Other (right lower ext amputation) Neurologic/Psychiatric: Alert, Oriented x3, cone sewer II-XII Norm as Tested Skin: Normal Color, Warm/Dry Lymphatic: No Adenopathy Data Review Labs Laboratory Tests 05/07/19 05:54: Urine Color YELLOW, Urine Clarity CLEAR, Urine pH 5, Urine Specific [place] 1.020, Urine Protein 2+H, Urine Glucose (UA) 4+H, Urine Ketones NEGATIVE, Urine Nitrite NEGATIVE, Urine Bilirubin NEGATIVE, Urine Urobilinogen NORMAL, Urine Leukocyte Esterase NEGATIVE, Urine RBC (Auto) NEGATIVE, Urine RBC NONE, Urine WBC NONE, Urine Squamous Epithelial Cells 0-2, Urine Crystals NONE, Urine Bacteria FEWH, Urine Casts NONE, Urine Mucus NEGATIVE, Urine Culture Indicated NO 05/07/19 06:00: White Blood Count 9.6, Red Blood Count 4.60, Hemoglobin 13.4, Hematocrit 41, Mean Corpuscular Volume 88, Mean Corpuscular Hemoglobin 29, Mean Corpuscular Hemoglobin Concent 33, Red Cell Distribution Width 13.5, Platelet Count 204, Mean Platelet Volume 10.2, Neutrophils (%) (Auto) 77H, Lymphocytes (%) (Auto) 17, Monocytes (%) (Auto) 4, Eosinophils (%) (Auto) 1, Basophils (%) (Auto) 0, Neutrophils # (Auto) 7.4, Lymphocytes # (Auto) 1.6, Monocytes # (Auto) 0.4, Eosinophils # (Auto) 0.1, Basophils # (Auto) 0.0, Sodium Level 139, Potassium Level 4.8, Chloride Level 105, Carbon Dioxide Level 23, Anion Gap 11, Blood Urea Nitrogen 21H, Creatinine 1.43H, Estimat Glomerular Filtration Rate 47, BUN/Creatinine Ratio 15, Glucose Level 328H, Calcium Level 9.7, Corrected Calcium 9.6, Total Bilirubin 0.4, Aspartate Amino Transf (AST/SGOT) 18, Alanine Aminotransferase (ALT/SGPT) 16, Alkaline Phosphatase 70, Lactate Dehydrogenase 196, Total Protein 7.3, Albumin 4.1, Lipase 29 Assessment/Plan Assessment/Plan Admission Diagonsis ischemic bowel right lower quadrant abdominal pain nausea and vomiting DM Admission Status: Inpatient Order (span 2 midnights) Reason for Inpatient Admission: Patient will need postoperative surgical care and further managment of condition. 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 they understand that there is possibility of bowel not compatible with life. they understand all risks and benefits and wish to proceed. to or NPO IV fluid NEHAL Grimes DO May 07, 2019 10:33
--- NOTE | 2019-05-07 10:42 | NUR ---
Dr. Cadena in room with pt.
[2019-05-07 10:44] LABS: BACTERIA,URINE NEGATIVE /HPF; BENZODIAZEPINES SCREEN URINE NEGATIVE (NEGATIVE); COCAINE SCREEN URINE NEGATIVE (NEGATIVE)
[2019-05-07 10:45] LABS: AMPHETAMINE SCREEN, URINE NEGATIVE (NEGATIVE); BARBITURATE SCREEN URINE NEGATIVE (NEGATIVE); CANNABINOID SCREEN, URINE NEGATIVE (NEGATIVE); METHADONE STAT NEGATIVE (NEGATIVE); METHAMPHETAMINE SCREEN URINE S NEGATIVE (NEGATIVE); OPIATE SCREEN URINE POSITIVE (NEGATIVE); OXYCODONE STAT NEGATIVE (NEGATIVE); PROPOXYPHENE STAT NEGATIVE (NEGATIVE); TRICYCLIC ANTIDEPRESSANTS SCRE NEGATIVE (NEGATIVE)
--- NOTE | 2019-05-07 10:48 | NUR ---
jannie pulled from [place] and given to [employer].
--- OUTSIDE RECORDS SUMMARY | 2019-05-07 10:54 | XMS REPORT | Continuity of Care Document ---
Author Organization Unknown Address Unknown Allergies Active Description Code Type Severity Reaction Onset Reported/Identified Relationship to Patient Clinical Status Yes NONE NONE Mild N/A 01/18/2007 Yes No Known Drug Allergies [id number] Drug Allergy Unknown N/A 10/15/2009 Medications There is no data. Problems Date Dx Coded Attending Type Code Diagnosis Diagnosed By 04/10/2011 Ot 250.00 DIAB TATIANA WO COMPL, TYPE II OR UNSPEC TY 04/10/2011 Ot 276.50 VOLUME DEPLETION, UNSPECIFIED 04/10/2011 Ot 401.9 HYPERTENSION NOS 04/10/2011 Ot 784.0 HEADACHE 04/10/2011 Ot 787.03 VOMITING ALONE 04/10/2011 Ot 789.09 ABDOMINAL PAIN, OTHER SPECIFIED SITE 04/10/2011 Ot V58.69 OTH MED,LT,CURRENT USE 04/14/2011 Ot 250.02 DIAB TATIANA WO [...] OF TOBACCO USE 04/14/2011 Ot V17.3 FAM HX-ISCHEM HEART DIS 12/12/2011 Ot 276.50 VOLUME DEPLETION, [...] TYPE VESSEL, NATIV 05/15/2012 Ot 440.24 ATHEROSCL [place] ARTERIES EXTREMITIES W 05/15/2012 Ot 599.0 URIN [...] FOR OCCUPATIONAL THERAPY 06/09/2012 Ot V58.67 LONG-TERM (CURRENT) USE OF INSULIN 06/09/2012 Ot V58.73 AFTERCARE POST SURGERY CIRULATORY SYSTEM 10/03/2012 Ot V49.75 BELOW KNEE AMPUTATION STATUS 10/03/2012 Ot V57.1 PHYSICAL THERAPY NEC 01/03/2013 Ot V49.75 BELOW KNEE AMPUTATION STATUS 01/03/2013 Ot V57.1 PHYSICAL THERAPY NEC 10/05/2013 HAZEL TAYLOR PRODUCT SAFETY CONSULTANT Ot 466.0 ACUTE BRONCHITIS 10/05/2013 HAZEL TAYLOR PRODUCT SAFETY CONSULTANT Ot 786.2 COUGH 10/19/2013 ЕКАТЕРИНА VICK, INÉS Gan Ot V49.75 BELOW KNEE AMPUTATION STATUS 10/19/2013 ЕКАТЕРИНА VICK, INÉS Gan Ot V57.1 PHYSICAL THERAPY NEC 02/16/2014 REHANA VICK, WENDY Henriquez Ot 532.90 DUODENAL ULCER NOS 02/16/2014 REHANA VICK, WENDY Henriquez Ot 535.40 OTH SPECIFIED GASTRITIS,W/O MENTION OF H 02/16/2014 WENDY KIMBALL MD Ot 537.82 ANGIODYSPLSIA STOMACH DUODENUM (W/O ME 02/16/2014 REHANA VICK, WENDY Henriquez Ot 784.0 HEADACHE 02/16/2014 REHANA VICK, WENDY Henriquez Ot V58.63 LONG-TERM(CURRENT)USE OF ANTIPLATELET/AN 01/11/2015 Ot [...] R Ot I25.10 ATHSCL HEART DISEASE OF [place] CORONARY 09/09/2015 ЕКАТЕРИНА VICK, INÉS R Ot I50.23 ACUTE ON CHRONIC SYSTOLIC (CONGESTIVE) H 09/09/2015 ЕКАТЕРИНА VICK, INÉS R Ot I50.9 09/09/2015 ЕКАТЕРИНА VICK, INÉS R Ot I63.9 CEREBRAL INFARCTION, UNSPECIFIED 09/09/2015 ЕКАТЕРИНА VICK, INÉS R Ot J18.9 09/09/2015 ЕКАТЕРИНА VICK, INÉS R Ot K59.00 CONSTIPATION, UNSPECIFIED 09/09/2015 ЕКАТЕРИНА VICK, INÉS R Ot R11.2 09/09/2015 ЕКАТЕРИНА VICK, INÉS R Ot R42 09/09/2015 ЕКАТЕРИНА VICK, INÉS R Ot R51 09/09/2015 ЕКАТЕРИНА VICK, INÉS R Ot Z23 ENCOUNTER FOR IMMUNIZATION 09/09/2015 ЕКАТЕРИНА VICK, INÉS R Ot Z72.0 TOBACCO USE 09/09/2015 ЕКАТЕРИНА VICK, INÉS R Ot Z89.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 09/09/2015 ЕКАТЕРИНА VICK, INÉS R Ot Z91.11 PATIENT'S NONCOMPLIANCE WITH DIETARY REG 09/09/2015 ЕКАТЕРИНА VICK, INÉS R Ot Z95.0 PRESENCE OF CARDIAC PACEMAKER 09/09/2015 ЕКАТЕРИНА VICK, INÉS Gan Ot Z95.1 PRESENCE OF AORTOCORONARY BYPASS GRAFT 09/09/2015 ЕКАТЕРИНА VICK, INÉS Gan Ot Z95.820 PERIPHERAL VASCULAR ANGIOPLASTY STATUS W [...] FRAZIER DO Ot Y92.[address] [facility] 11/25/2015 HIRAM FRAZIER DO Ot [...] KNEE AMPUTATION STATUS 03/18/2016 Ot V67.09 SURGERY FOLLOW- UP, OTHER SURGERY 07/30/2016 Ot 250.00 DIAB TATIANA WO COMPL, TYPE II OR UNSPEC TY 07/30/2016 Ot 276.50 VOLUME DEPLETION, UNSPECIFIED 07/30/2016 Ot 401.9 HYPERTENSION NOS 07/30/2016 Ot 784.0 HEADACHE 07/30/2016 Ot 787.03 VOMITING ALONE 07/30/2016 Ot 789.09 ABDOMINAL PAIN, OTHER SPECIFIED SITE 07/30/2016 Ot V58.69 OTH MED,LT,CURRENT USE 09/16/2016 Ot 244.9 HYPOTHYROIDISM NOS 09/16/2016 Ot V49.75 BELOW KNEE AMPUTATION STATUS 09/16/2016 Ot V67.09 SURGERY FOLLOW- UP, OTHER SURGERY 10/09/2016 Ot 244.9 HYPOTHYROIDISM NOS 10/09/2016 Ot V49.75 BELOW KNEE AMPUTATION STATUS 10/09/2016 Ot V67.09 SURGERY FOLLOW- UP, OTHER SURGERY 10/13/2016 Ot 244.9 HYPOTHYROIDISM NOS 10/13/2016 Ot V49.75 BELOW KNEE AMPUTATION STATUS 10/13/2016 Ot V67.09 SURGERY FOLLOW- UP, OTHER SURGERY 10/13/2016 Ot 244.9 HYPOTHYROIDISM NOS 10/13/2016 Ot V49.75 BELOW KNEE AMPUTATION STATUS 10/13/2016 Ot V67.09 SURGERY FOLLOW- UP, OTHER SURGERY 10/15/2016 CHACHA VICK, PK [place] Ot A40.1 SEPSIS DUE TO STREPTOCOCCUS, GROUP [...] MD Ot I25.10 ATHSCL HEART DISEASE OF [place] CORONARY 10/15/2016 CHACHA VICK, PK [place] Ot I50.30 UNSPECIFIED DIASTOLIC (CONGESTIVE) HEART 10/15/2016 [...] HEMOPTYSIS 10/15/2016 PK BURNHAM MD Ot Z79.84 PAYROLL ANALYST (CURRENT) USE OF ORAL HYPOGLYC 10/15/2016 PK [...] DO Ot I25.10 ATHSCL HEART DISEASE OF [place] CORONARY 10/20/2016 AGATHA PAZ DO Ot I50.33 ACUTE ON CHRONIC DIASTOLIC (CONGESTIVE) 10/20/2016 AGATHA PAZ DO Ot J18.9 PNEUMONIA, UNSPECIFIED ORGANISM 10/20/2016 THALIA PAZ DOI Ot J44.0 CHRONIC OBSTRUCTIVE PULMON DISEASE W ACU 10/20/2016 THALIA PAZ DOI Ot J45.909 UNSPECIFIED ASTHMA, UNCOMPLICATED 10/20/2016 THALIA PAZ DOI Ot K56.7 ILEUS, UNSPECIFIED 10/20/2016 THALIA PAZ DOI Ot N18.3 CHRONIC KIDNEY DISEASE, STAGE 3 (MODERAT 10/20/2016 THALIA PAZ DOI Ot R04.2 HEMOPTYSIS 10/20/2016 THALIA PAZ DOI Ot Z79.84 GROUP HOME (CURRENT) USE OF ORAL HYPOGLYC 10/20/2016 BRANDI REDDY AGATHA Ot Z95.0 PRESENCE OF CARDIAC PACEMAKER 10/20/2016 BRANDI REDDY AGATHA Ot Z95.1 PRESENCE OF AORTOCORONARY BYPASS GRAFT 10/20/2016 Ot 244.9 HYPOTHYROIDISM NOS 10/20/2016 Ot V49.75 BELOW KNEE AMPUTATION STATUS 10/20/2016 Ot V67.09 SURGERY FOLLOW- UP, OTHER SURGERY 10/29/2016 Ot 250.00 DIAB TATIANA WO COMPL, TYPE II OR UNSPEC TY 10/29/2016 Ot 276.50 VOLUME DEPLETION, UNSPECIFIED 10/29/2016 Ot 401.9 HYPERTENSION NOS 10/29/2016 Ot 784.0 HEADACHE 10/29/2016 Ot 787.03 VOMITING ALONE 10/29/2016 Ot 789.09 ABDOMINAL PAIN, OTHER SPECIFIED SITE 10/29/2016 Ot V58.69 OTH MED,LT,CURRENT USE 11/11/2016 Ot 244.9 HYPOTHYROIDISM NOS 11/11/2016 Ot V49.75 BELOW KNEE AMPUTATION STATUS 11/11/2016 Ot V67.09 SURGERY FOLLOW- UP, OTHER SURGERY 12/10/2016 Ot 244.9 HYPOTHYROIDISM NOS 12/10/2016 Ot V49.75 BELOW KNEE AMPUTATION STATUS 12/10/2016 Ot V67.09 SURGERY FOLLOW- UP, OTHER SURGERY 12/14/2016 Ot 244.9 HYPOTHYROIDISM NOS 12/14/2016 Ot V49.75 BELOW KNEE AMPUTATION STATUS 12/14/2016 Ot V67.09 SURGERY FOLLOW- UP, OTHER SURGERY 02/13/2019 JODEE VICK, ANTHONY Julio Ot A08.4 VIRAL INTESTINAL INFECTION, UNSPECIFIED 02/13/2019 ANTHONY ELLSWORTH MD Ot E11.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 02/13/2019 ANTHONY ELLSWORTH MD Ot E78.00 PURE HYPERCHOLESTEROLEMIA, UNSPECIFIED 02/13/2019 ANTHONY ELLSWORTH MD Ot F17.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, OTHER TOBACCO PRODU 02/13/2019 ANTHONY ELLSWORTH MD Ot F32.9 MAJOR DEPRESSIVE DISORDER, SINGLE EPISOD 02/13/2019 ANTHONY ELLSWORTH MD Ot G43.909 MIGRAINE, UNSP, NOT INTRACTABLE, WITHOUT 02/13/2019 ANTHONY ELLSWORTH MD Ot I10 ESSENTIAL (PRIMARY) HYPERTENSION 02/13/2019 ANTHONY ELLSWORTH MD Ot I25.10 ATHSCL HEART DISEASE OF [place] CORONARY 02/13/2019 ANTHONY ELLSWORTH MD Ot I73.9 PERIPHERAL VASCULAR DISEASE, UNSPECIFIED 02/13/2019 ANTHONY ELLSWORTH MD Ot R10.31 RIGHT LOWER QUADRANT PAIN 02/13/2019 ANTHONY ELLSWORTH MD Ot Z79.4 PAYROLL ANALYST (CURRENT) USE OF INSULIN 02/13/2019 ANTHONY ELLSWORTH MD Ot Z79.82 GROUP HOME (CURRENT) USE OF ASPIRIN 02/13/2019 ANTHONY ELLSWORTH MD Ot Z80.43 FAMILY HISTORY OF MALIGNANT NEOPLASM OF 02/13/2019 ANTHONY ELLSWORTH MD Ot Z80.6 FAMILY HISTORY OF LEUKEMIA 02/13/2019 ANTHONY ELLSWORTH MD Ot Z87.01 PERSONAL HISTORY OF PNEUMONIA (RECURRENT 02/13/2019 ANTHONY ELLSWORTH MD Ot Z95.0 PRESENCE OF CARDIAC PACEMAKER 02/13/2019 ANTHONY ELLSWORTH MD Ot Z95.1 PRESENCE OF AORTOCORONARY BYPASS GRAFT 02/14/2019 ANTHONY ELLSWORTH MD Ot A08.4 VIRAL [...] G43.909 MIGRAINE, UNSP, NOT INTRACTABLE, WITHOUT 02/14/2019 ANTHONY ELLSWORTH MD Ot I10 ESSENTIAL (PRIMARY) HYPERTENSION 02/14/2019 ANTHONY ELLSWORTH MD Ot I25.10 ATHSCL HEART DISEASE OF [place] CORONARY 02/14/2019 ANTHONY ELLSWORTH MD Ot I73.9 PERIPHERAL VASCULAR DISEASE, UNSPECIFIED 02/14/2019 ANTHONY ELLSWORTH MD Ot R10.31 RIGHT LOWER QUADRANT PAIN 02/14/2019 ANTHONY ELLSWORTH MD Ot Z79.4 GROUP HOME (CURRENT) USE OF INSULIN 02/14/2019 ANTHONY ELLSWORTH MD Ot Z79.82 GROUP HOME (CURRENT) USE OF ASPIRIN 02/14/2019 ANTHONY ELLSWORTH MD Ot Z80.43 FAMILY HISTORY OF MALIGNANT NEOPLASM OF 02/14/2019 NATHONY ELLSWORTH MD Ot Z80.6 FAMILY HISTORY OF LEUKEMIA 02/14/2019 ANTHONY ELLSWORTH MD Ot Z87.01 PERSONAL HISTORY OF PNEUMONIA (RECURRENT 02/14/2019 ANTHONY ELLSWORTH MD Ot Z95.0 PRESENCE OF CARDIAC PACEMAKER 02/14/2019 ANTHONY ELLSWORTH MD Ot Z95.1 PRESENCE OF AORTOCORONARY BYPASS GRAFT 02/18/2019 PK BURNHAM MD Ot 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 02/18/2019 PK BURNHAM MD Ot E11.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 02/18/2019 PK BURNHAM MD Ot E78.00 PURE HYPERCHOLESTEROLEMIA, UNSPECIFIED 02/18/2019 PK BURNHAM MD Ot F17.210 NICOTINE DEPENDENCE, CIGARETTES, UNCOMPL 02/18/2019 PK BURNHAM MD, Ot F32.9 MAJOR DEPRESSIVE DISORDER, SINGLE EPISOD 02/18/2019 PK BURNHAM MD, Ot H91.90 UNSPECIFIED HEARING LOSS, UNSPECIFIED EA 02/18/2019 PK UBRNHAM MD, Ot I12.9 HYPERTENSIVE CHRONIC KIDNEY DISEASE W ST 02/18/2019 PK BURNHAM MD, Ot I25.10 ATHSCL HEART DISEASE OF [place] CORONARY 02/18/2019 PK BURNHAM MD Ot K59.09 OTHER CONSTIPATION 02/18/2019 PK BURNHAM MD, Ot N18.3 CHRONIC KIDNEY DISEASE, STAGE 3 (MODERAT 02/18/2019 BURNHAM MD, PK D Ot R10.9 UNSPECIFIED ABDOMINAL PAIN 02/18/2019 PK BURNHAM MD Ot Z79.82 PAYROLL ANALYST (CURRENT) USE OF ASPIRIN 02/18/2019 PK BURNHAM MD Ot Z79.84 PAYROLL ANALYST (CURRENT) USE OF ORAL HYPOGLYC 02/18/2019 PK BURNHAM MD Ot Z79.899 OTHER GROUP HOME (CURRENT) DRUG THERAPY 02/18/2019 PK BURNHAM MD Ot Z95.0 PRESENCE OF CARDIAC PACEMAKER 02/18/2019 PK BURNHAM MD Ot Z95.1 PRESENCE OF AORTOCORONARY BYPASS GRAFT 02/18/2019 PK BURNHAM MD Ot 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 02/18/2019 PK BURNHAM MD Ot E11.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 02/18/2019 PK BURNHAM MD Ot E78.00 PURE HYPERCHOLESTEROLEMIA, UNSPECIFIED 02/18/2019 PK BURNHAM MD Ot F17.210 NICOTINE DEPENDENCE, CIGARETTES, UNCOMPL 02/18/2019 PK BURNHAM MD Ot F32.9 MAJOR DEPRESSIVE DISORDER, SINGLE EPISOD 02/18/2019 PK BURNHAM MD Ot H91.90 UNSPECIFIED HEARING LOSS, UNSPECIFIED EA 02/18/2019 PK BURNHAM MD Ot I12.9 HYPERTENSIVE CHRONIC KIDNEY DISEASE W ST 02/18/2019 PK BURNHAM MD Ot I25.10 ATHSCL HEART DISEASE OF [place] CORONARY 02/18/2019 PK BURNHAM MD Ot K59.09 OTHER CONSTIPATION 02/18/2019 PK BURNHAM MD Ot N18.3 CHRONIC KIDNEY DISEASE, STAGE 3 (MODERAT 02/18/2019 PK BURNHAM MD Ot R10.9 UNSPECIFIED ABDOMINAL PAIN 02/18/2019 PK BURNHAM MD Ot Z79.82 GROUP HOME (CURRENT) USE OF ASPIRIN 02/18/2019 PK BURNHAM MD Ot Z79.84 GROUP HOME (CURRENT) USE OF ORAL HYPOGLYC 02/18/2019 PK BURNHAM MD Ot Z79.899 OTHER PAYROLL ANALYST (CURRENT) DRUG THERAPY 02/18/2019 PK BURNHAM MD Ot Z95.0 PRESENCE OF CARDIAC PACEMAKER 02/18/2019 PK BURNHAM MD Ot Z95.1 PRESENCE OF AORTOCORONARY BYPASS GRAFT 03/01/2019 ЕКАТЕРИНА VICK, INÉS R Ot M17.11 UNILATERAL PRIMARY OSTEOARTHRITIS, RIGHT 03/27/2019 ЕКАТЕРИНА VICK, INÉS R Ot M17.11 UNILATERAL PRIMARY OSTEOARTHRITIS, RIGHT 03/30/2019 ЕКАТЕРИНА VICK, INÉS R Ot M17.11 UNILATERAL PRIMARY OSTEOARTHRITIS, RIGHT 04/05/2019 SOMERDALE DO, NEHAL D Ot M25.511 PAIN IN RIGHT SHOULDER 04/05/2019 GREEN[place]G DO, NEHAL D Ot R10.11 RIGHT UPPER QUADRANT PAIN 04/24/2019 [place]EN[place] DO, NEHAL D Ot M25.511 PAIN IN RIGHT SHOULDER 04/24/2019 SOMERDALE DO, NEHAL D Ot R10.11 RIGHT UPPER QUADRANT PAIN 04/26/2019 [place]EN[place] DO, NEHAL D Ot M25.511 PAIN IN RIGHT SHOULDER 04/26/2019 [facility], NEHAL D Ot R10.11 RIGHT UPPER QUADRANT PAIN 05/04/2019 SOMERDALE DO, NEHAL D Ot M25.511 PAIN IN RIGHT SHOULDER 05/04/2019 [facility], NEHAL D Ot R10.11 RIGHT UPPER QUADRANT PAIN Procedures Code Description Performed By Performed On 03.31 04/10/2011 00.40 PROCEDURE ON SINGLE VESSEL 05/04/2012 39.29 VASC SHUNT BYPASS [facility] 05/04/2012 39.50 ANGIOPLASTY OF OTHER NON-CORONARY VESSEL 05/04/2012 83.44 OTHER FASCIECTOMY 05/04/2012 84.11 TOE AMPUTATION 05/04/2012 38.93 VENOUS CATHETERIZATION [facility] 05/06/2012 84.15 BELOW KNEE AMPUTAT [facility] 05/09/2012 57.32 CYSTOSCOPY [facility] 05/20/2012 Results Test Result Range [...] Automated erythrocyte mean corpuscular hemoglobin concentration measurement (mass/volume) 33 g/dL 32-36 Automated erythrocyte distribution width ratio 13.5 % 10.0- 14.5 Automated blood platelet count (count/volume) 150 10*3/uL [...] Blood monocytes automated count (number/volume) 0.6 10*3 0.0- 1.0 Automated eosinophil count 0.0 10*3/uL 0.0-0.3 Automated blood basophil count (count/volume) 0.0 10*3/uL 0.0-0.1 Blood lactic acid measurement (moles/volume) - 10/09/16 17:05 Blood lactic acid measurement (moles/volume) 2.0 mmol/L 0.5- 2.0 Comprehensive metabolic panel - 10/09/16 17:05 Serum [...] Serum or plasma aspartate aminotransferase measurement (enzymatic activity/volume) 17 U/L 5-34 Serum or plasma alanine aminotransferase measurement (enzymatic activity/volume) 23 U/L 0-55 Serum or plasma protein measurement (mass/volume) 6.6 g/dL 6.4-8.2 Serum or plasma albumin measurement (mass/volume) 3.9 g/dL 3.2-4.5 Blood manual differential performed detection - 10/09/16 17:05 Blood monocytes/100 leukocytes 1 % NR Manual blood segmented neutrophils/100 leukocytes 91 % NRG Blood band neutrophils/100 leukocytes 0 % NRG Manual blood lymphocytes/100 leukocytes 8 % NRG Manual eosinophils/100 leukocytes in nose 0 % NRG Manual blood basophils/100 leukocytes 0 % NR Blood erythrocyte morphology finding identification NORMAL NR Serum or plasma creatine kinase measurement (enzymatic activity/volume) - 10/09/16 17:05 Serum or plasma creatine kinase measurement (enzymatic activity/volume) 98 U/L 30-200 Serum or plasma C reactive protein measurement (mass/volume) - 10/09/16 17:05 Serum or plasma C reactive protein measurement (mass/volume) 9.13 mg/dL 0.00-0.50 Fibrin D-dimer FEU measurement in platelet poor plasma (mass/volume) - 10/09/16 17:05 Fibrin D-dimer FEU measurement in platelet poor plasma (mass/volume) 1.79 ug/mL 0.00-0.49 Bacterial blood culture - 10/09/16 17:05 QUANTITY OF GROWTH Isolated [facility] Bacterial blood culture [id number] [facility] Bacterial blood culture - 10/09/16 18:08 FREE TEXT EXTERNAL PROBABLE BURKHOLDERIA CEPACIA GROUP NR QUANTITY OF GROWTH Isolated [facility] Bacterial blood culture [id number] [facility] FREE TEXT ENTRY 2 SEE COMMENTS [facility] Bacterial susceptibility panel - 10/09/16 18:08 Trimethoprim/sulfamethoxazole susceptibility test by minimum inhibitoryconcentration <= NRG Ciprofloxacin susceptibility test by minimum inhibitory concentration 1 NRG Meropenem susceptibility test by minimum inhibitory concentration <= NRG Complete urinalysis with reflex to culture - 10/09/16 18:49 Urine color determination YELLOW NRG Urine clarity determination CLEAR NRG Urine pH measurement by test strip 5 5-9 Specific gravity of urine by test strip 1.025 1.016-1.022 Urine protein assay by test strip, semi-quantitative [...] sediment leukocyte count by microscopy (number/high power field) RARE NRG Bacteria detection in urine sediment [...] Automated erythrocyte mean corpuscular hemoglobin concentration measurement (mass/volume) 33 g/dL 32-36 Automated erythrocyte distribution width ratio 13.9 % 10.0- 14.5 Automated blood platelet count (count/volume) 129 10*3/uL [...] Blood monocytes automated count (number/volume) 0.8 10*3 0.0- 1.0 Automated eosinophil count 0.0 10*3/uL 0.0-0.3 Automated [...] glucose measurement by glucometer (mass/volume) - 10/10/16 10:23 Capillary blood glucose measurement by glucometer (mass/volume) 189 mg/dL 70-110 Capillary blood glucose measurement by glucometer (mass/volume) - 10/10/16 15:17 Capillary blood glucose measurement by glucometer (mass/volume) 153 mg/dL 70-110 Capillary blood glucose measurement by glucometer (mass/volume) - 10/10/16 20:54 Capillary blood glucose measurement by glucometer (mass/volume) 134 mg/dL 70-110 Capillary blood glucose measurement by glucometer (mass/volume) - 10/11/16 05:53 Capillary blood glucose measurement by glucometer (mass/volume) 159 mg/dL 70-110 Capillary blood glucose measurement by glucometer (mass/volume) - 10/11/16 09:18 Capillary blood glucose measurement by glucometer (mass/volume) 188 mg/dL 70-110 Sputum Gram stain - 10/11/16 09:45 GRAM STAIN SPUTUM AND MIXED BACTERIAL GREGOR NRG Bacterial sputum culture - 10/11/16 09:45 Bacterial sputum culture NORMAL NRG Capillary blood glucose measurement by glucometer (mass/volume) - 10/11/16 11:39 Capillary blood glucose measurement by glucometer (mass/volume) 273 mg/dL 70-110 Capillary blood glucose measurement by glucometer (mass/volume) - 10/11/16 15:49 Capillary blood glucose measurement by glucometer (mass/volume) 375 mg/dL 70-110 Capillary blood glucose measurement by glucometer (mass/volume) - 10/11/16 21:10 Capillary blood glucose measurement by glucometer (mass/volume) 303 mg/dL 70-110 Capillary blood glucose measurement by glucometer (mass/volume) - 10/12/16 05:41 Capillary blood glucose measurement by glucometer (mass/volume) [...] Automated erythrocyte mean corpuscular hemoglobin concentration measurement (mass/volume) 32 g/dL 32-36 Automated erythrocyte distribution width ratio 13.6 % 10.0- 14.5 Automated blood platelet count (count/volume) 158 10*3/uL [...] Blood monocytes automated count (number/volume) 0.3 10*3 0.0- 1.0 Automated eosinophil count 0.1 10*3/uL 0.0-0.3 Automated [...] glucose measurement by glucometer (mass/volume) - 10/12/16 10:57 Capillary blood glucose measurement by glucometer (mass/volume) 324 mg/dL 70-110 Capillary blood glucose measurement by glucometer (mass/volume) - 10/12/16 16:10 Capillary blood glucose measurement by glucometer (mass/volume) 252 mg/dL 70-110 Capillary blood glucose measurement by glucometer (mass/volume) - 10/12/16 20:40 Capillary blood glucose measurement by glucometer (mass/volume) 226 mg/dL 70-110 Capillary blood glucose measurement by glucometer (mass/volume) - 10/13/16 05:31 Capillary blood glucose measurement by glucometer (mass/volume) 258 mg/dL 70-110 Capillary blood glucose measurement by glucometer (mass/volume) - 10/13/16 11:13 Capillary blood glucose measurement by glucometer (mass/volume) 270 mg/dL 70-110 Capillary blood glucose measurement by glucometer (mass/volume) - 10/13/16 12:21 Capillary blood glucose measurement by glucometer (mass/volume) 269 mg/dL 70-110 Capillary blood glucose measurement by glucometer (mass/volume) - 10/13/16 16:11 Capillary blood glucose measurement by glucometer (mass/volume) 247 mg/dL 70-110 Capillary blood glucose measurement by glucometer (mass/volume) - 10/13/16 20:29 Capillary blood glucose measurement by glucometer (mass/volume) 215 mg/dL 70-110 Capillary blood glucose measurement by glucometer (mass/volume) - 10/14/16 05:02 Capillary blood glucose measurement by glucometer (mass/volume) [...] Automated erythrocyte mean corpuscular hemoglobin concentration measurement (mass/volume) 32 g/dL 32-36 Automated erythrocyte distribution width ratio 13.7 % 10.0- 14.5 Automated blood platelet count (count/volume) 193 10*3/uL [...] Blood monocytes automated count (number/volume) 0.4 10*3 0.0- 1.0 Automated eosinophil count 0.0 10*3/uL 0.0-0.3 Automated [...] Serum or plasma aspartate aminotransferase measurement (enzymatic activity/volume) 43 U/L 5-34 Serum or plasma alanine aminotransferase measurement (enzymatic activity/volume) 89 U/L 0-55 Serum or plasma protein measurement (mass/volume) 6.0 g/dL 6.4-8.2 Serum or plasma albumin measurement (mass/volume) 3.5 g/dL 3.2-4.5 Lipase - 10/14/16 08:30 Lipase 11 U/L 8-78 Serum or plasma lithium measurement (moles/volume) - 10/14/16 08:30 BNP level 846.8 pg/mL <100.0 Capillary blood glucose measurement by glucometer (mass/volume) - 10/14/16 10:48 Capillary blood glucose measurement by glucometer (mass/volume) 194 mg/dL 70-110 Capillary blood glucose measurement by glucometer (mass/volume) - 10/14/16 15:53 Capillary blood glucose measurement by glucometer (mass/volume) 250 mg/dL 70-110 Capillary blood glucose measurement by glucometer (mass/volume) - 10/14/16 20:28 Capillary blood glucose measurement by glucometer (mass/volume) 225 mg/dL 70-110 Capillary blood glucose measurement by glucometer (mass/volume) - 10/15/16 05:57 Capillary blood glucose measurement by glucometer (mass/volume) 196 mg/dL 70-110 Capillary blood glucose measurement by glucometer (mass/volume) - 10/15/16 12:13 Capillary blood glucose measurement by glucometer (mass/volume) 205 mg/dL 70-110 Capillary blood glucose measurement by glucometer (mass/volume) - 10/15/16 15:54 Capillary blood glucose measurement by glucometer (mass/volume) 346 mg/dL 70-110 Capillary blood glucose measurement by glucometer (mass/volume) - 10/15/16 20:31 Capillary blood glucose measurement by glucometer (mass/volume) 301 mg/dL 70-110 Capillary blood glucose measurement by glucometer (mass/volume) - 10/16/16 05:19 Capillary blood glucose measurement by glucometer (mass/volume) 243 mg/dL 70-110 Capillary blood glucose measurement by glucometer (mass/volume) - 10/16/16 11:40 Capillary blood glucose measurement by glucometer (mass/volume) 217 mg/dL 70-110 Capillary blood glucose measurement by glucometer (mass/volume) - 10/16/16 16:27 Capillary blood glucose measurement by glucometer (mass/volume) 329 mg/dL 70-110 Capillary blood glucose measurement by glucometer (mass/volume) - 10/16/16 21:11 Capillary blood glucose measurement by glucometer (mass/volume) [...] glucose measurement by glucometer (mass/volume) - 10/17/16 11:00 Capillary blood glucose measurement by glucometer (mass/volume) 207 mg/dL 70-110 Capillary blood glucose measurement by glucometer (mass/volume) - 10/17/16 16:03 Capillary blood glucose measurement by glucometer (mass/volume) 281 mg/dL 70-110 Capillary blood glucose measurement by glucometer (mass/volume) - 10/17/16 20:45 Capillary blood glucose measurement by glucometer (mass/volume) 241 mg/dL 70-110 Capillary blood glucose measurement by glucometer (mass/volume) - 10/18/16 05:57 Capillary blood glucose measurement by glucometer (mass/volume) 120 mg/dL 70-110 Capillary blood glucose measurement by glucometer (mass/volume) - 10/18/16 10:53 Capillary blood glucose measurement by glucometer (mass/volume) 333 mg/dL 70-110 Capillary blood glucose measurement by glucometer (mass/volume) - 10/18/16 15:47 Capillary blood glucose measurement by glucometer (mass/volume) 247 mg/dL 70-110 Capillary blood glucose measurement by glucometer (mass/volume) - 10/18/16 20:58 Capillary blood glucose measurement by glucometer (mass/volume) 283 mg/dL 70-110 Capillary blood glucose measurement by glucometer (mass/volume) - 10/19/16 06:19 Capillary blood glucose measurement by glucometer (mass/volume) 155 mg/dL 70-110 Capillary blood glucose measurement by glucometer (mass/volume) - 10/19/16 11:12 Capillary blood glucose measurement by glucometer (mass/volume) 284 mg/dL 70-110 Capillary blood glucose measurement by glucometer (mass/volume) - 10/19/16 16:30 Capillary blood glucose measurement by glucometer (mass/volume) 369 mg/dL 70-110 Capillary blood glucose measurement by glucometer (mass/volume) - 10/19/16 22:22 Capillary blood glucose measurement by glucometer (mass/volume) 169 mg/dL 70-110 Capillary blood glucose measurement by glucometer (mass/volume) - 10/20/16 05:15 Capillary blood glucose measurement by glucometer (mass/volume) 126 mg/dL 70-110 Capillary blood glucose measurement by glucometer (mass/volume) - 10/20/16 10:29 Capillary blood glucose measurement by glucometer (mass/volume) 337 mg/dL 70-110 Complete blood count (CBC) with [...] Automated erythrocyte mean corpuscular hemoglobin concentration measurement (mass/volume) 34 g/dL 32-36 Automated erythrocyte distribution width ratio 13.3 % 10.0- 14.5 Automated blood platelet count (count/volume) 201 10*3/uL [...] Blood monocytes automated count (number/volume) 0.7 10*3 0.0- 1.0 Automated eosinophil count 0.3 10*3/uL 0.0-0.3 Automated [...] Serum or plasma aspartate aminotransferase measurement (enzymatic activity/volume) 15 U/L 5-34 Serum or plasma alanine aminotransferase measurement (enzymatic activity/volume) 17 U/L 0-55 Serum or plasma protein measurement (mass/volume) 7.2 g/dL 6.4-8.2 Serum or plasma albumin measurement (mass/volume) 4.0 g/dL 3.2-4.5 CALCIUM CORRECTED 9.7 mg/dL 8.5-10.1 Lipase - 02/12/19 22:15 Lipase 20 U/L 8-78 Capillary blood glucose measurement by glucometer (mass/volume) - 02/12/19 22:30 Capillary blood glucose measurement by glucometer (mass/volume) 198 mg/dL 70-110 Influenza virus A and B antigen detection - 02/12/19 22:31 FLU RESULT NEGATIVE FOR INFLUENZA A AND B ANTIGENS BY IA [facility] Complete urinalysis with reflex to culture - 02/13/19 00:21 Urine color determination YELLOW NRG Urine clarity determination CLEAR NRG Urine pH measurement by test strip 5 5-9 Specific gravity of urine by test strip 1.020 1.016-1.022 Urine protein assay by test strip, semi-quantitative [...] sediment leukocyte count by microscopy (number/high power field) RARE NRG Bacteria detection in urine sediment [...] urine sediment by light microscopy RARE NRG Complete blood count (CBC) with automated white blood cell (WBC) differential - 02/17/19 18:05 Blood leukocytes automated count (number/volume) 6.1 10*3/uL 4.3-11.0 Blood erythrocytes automated count (number/volume) 3.80 10*6/uL 4.35-5.85 Venous blood hemoglobin measurement (mass/volume) 11.2 g/dL 13.3-17.7 Blood hematocrit (volume fraction) 34 % 40-54 Automated erythrocyte mean corpuscular volume 91 [foz_us] 80-99 Automated erythrocyte mean corpuscular hemoglobin (mass per erythrocyte) 30 pg 25-34 Automated erythrocyte mean corpuscular hemoglobin concentration measurement (mass/volume) 33 g/dL 32-36 Automated erythrocyte distribution width ratio 13.2 % 10.0- 14.5 Automated blood platelet count (count/volume) 170 10*3/uL 130-400 Automated blood platelet mean volume measurement 10.4 [foz_us] 7.4-10.4 Automated blood neutrophils/100 leukocytes 58 % 42-75 Automated blood lymphocytes/100 leukocytes 25 % 12-44 Blood monocytes/100 leukocytes 10 % 0-12 Automated blood eosinophils/100 leukocytes 6 % 0-10 Automated blood basophils/100 leukocytes 1 % 0-10 Blood neutrophils automated count (number/volume) 3.6 10*3 1.8-7.8 Blood lymphocytes automated count (number/volume) 1.6 10*3 1.0-4.0 Blood monocytes automated count (number/volume) 0.6 10*3 0.0- 1.0 Automated eosinophil count 0.4 10*3/uL 0.0-0.3 Automated blood basophil count (count/volume) 0.0 10*3/uL 0.0-0.1 PT panel in platelet poor plasma by coagulation assay - 02/17/19 18:05 Prothrombin time (PT) in platelet poor plasma by coagulation assay 14.0 s 12.2-14.7 INR in platelet poor plasma or blood by coagulation assay 1.1 0.8-1.4 Activated partial thromboplastin time (aPTT) in platelet poor plasma bycoagulation assay - 02/17/19 18:05 Activated partial thromboplastin time (aPTT) in platelet poor plasma bycoagulation assay 24 s 24-35 Comprehensive metabolic panel - 02/17/19 18:05 Serum or plasma sodium measurement (moles/volume) 140 mmol/L 135-145 Serum or plasma potassium measurement (moles/volume) 4.7 mmol/L 3.6-5.0 Serum or plasma chloride measurement (moles/volume) 104 mmol/L 98-107 Carbon dioxide 23 mmol/L 21-32 Serum or plasma anion gap determination (moles/volume) 13 mmol/L 5-14 Serum or plasma urea nitrogen measurement (mass/volume) 30 mg/dL 7-18 Serum or plasma creatinine measurement (mass/volume) 1.55 mg/dL 0.60-1.30 Serum or plasma urea nitrogen/creatinine mass ratio 19 NRG Serum or plasma creatinine measurement with calculation of estimated glomerular filtration rate 43 NRG Serum or plasma glucose measurement (mass/volume) 154 mg/dL 70-105 Serum or plasma calcium measurement (mass/volume) 9.3 mg/dL 8.5-10.1 Serum or plasma total bilirubin measurement (mass/volume) 0.3 mg/dL 0.1-1.0 Serum or plasma alkaline phosphatase measurement (enzymatic activity/volume) 62 U/L 40-136 Serum or plasma aspartate aminotransferase measurement (enzymatic activity/volume) 22 U/L 5-34 Serum or plasma alanine aminotransferase measurement (enzymatic activity/volume) 16 U/L 0-55 Serum or plasma protein measurement (mass/volume) 6.6 g/dL 6.4-8.2 Serum or plasma albumin measurement (mass/volume) 3.6 g/dL 3.2-4.5 CALCIUM CORRECTED 9.6 mg/dL 8.5-10.1 Magnesium - 02/17/19 18:05 Magnesium 1.8 mg/dL 1.8-2.4 Serum or plasma troponin i.cardiac measurement (mass/volume) - 02/17/19 18:05 Serum or plasma troponin i.cardiac measurement (mass/volume) < ng/mL <0.028 Myoglobin, serum - 02/17/19 18:05 Myoglobin, serum 121.5 ng/mL 10.0-92.0 Lipase - 02/17/19 18:05 Lipase 16 U/L 8-78 Serum or plasma lithium measurement (moles/volume) - 02/17/19 18:05 BNP level 109.0 pg/mL <100.0 Capillary blood glucose measurement by glucometer (mass/volume) - 02/18/19 05:49 Capillary blood glucose measurement by glucometer (mass/volume) 167 mg/dL 70-110 Complete blood count (CBC) with automated white blood cell (WBC) differential - 02/18/19 06:30 Blood leukocytes automated count (number/volume) 5.3 10*3/uL 4.3-11.0 Blood erythrocytes automated count (number/volume) 3.75 10*6/uL 4.35-5.85 Venous blood hemoglobin measurement (mass/volume) 11.0 g/dL 13.3-17.7 Blood hematocrit (volume fraction) 34 % 40-54 Automated erythrocyte mean corpuscular volume 92 [foz_us] 80-99 Automated erythrocyte mean corpuscular hemoglobin (mass per erythrocyte) 29 pg 25-34 Automated erythrocyte mean corpuscular hemoglobin concentration measurement (mass/volume) 32 g/dL 32-36 Automated erythrocyte distribution width ratio 13.2 % 10.0- 14.5 Automated blood platelet count (count/volume) 156 10*3/uL 130-400 Automated blood platelet mean volume measurement 10.1 [foz_us] 7.4-10.4 Automated blood neutrophils/100 leukocytes 51 % 42-75 Automated blood lymphocytes/100 leukocytes 29 % 12-44 Blood monocytes/100 leukocytes 10 % 0-12 Automated blood eosinophils/100 leukocytes 9 % 0-10 Automated blood basophils/100 leukocytes 1 % 0-10 Blood neutrophils automated count (number/volume) 2.7 10*3 1.8-7.8 Blood lymphocytes automated count (number/volume) 1.5 10*3 1.0-4.0 Blood monocytes automated count (number/volume) 0.5 10*3 0.0- 1.0 Automated eosinophil count 0.5 10*3/uL 0.0-0.3 Automated blood basophil count (count/volume) 0.0 10*3/uL 0.0-0.1 Comprehensive metabolic panel - 02/18/19 06:30 Serum or plasma sodium measurement (moles/volume) 138 mmol/L 135-145 Serum or plasma potassium measurement (moles/volume) 4.0 mmol/L 3.6-5.0 Serum or plasma chloride measurement (moles/volume) 105 mmol/L 98-107 Carbon dioxide 28 mmol/L 21-32 Serum or plasma anion gap determination (moles/volume) 5 mmol/L 5-14 Serum or plasma urea nitrogen measurement (mass/volume) 24 mg/dL 7-18 Serum or plasma creatinine measurement (mass/volume) 1.34 mg/dL 0.60-1.30 Serum or plasma urea nitrogen/creatinine mass ratio 18 NRG Serum or plasma creatinine measurement with calculation of estimated glomerular filtration rate 51 NRG Serum or plasma glucose measurement (mass/volume) 113 mg/dL 70-105 Serum or plasma calcium measurement (mass/volume) 8.8 mg/dL 8.5-10.1 Serum or plasma total bilirubin measurement (mass/volume) 0.5 mg/dL 0.1-1.0 Serum or plasma alkaline phosphatase measurement (enzymatic activity/volume) 59 U/L 40-136 Serum or plasma aspartate aminotransferase measurement (enzymatic activity/volume) 19 U/L 5-34 Serum or plasma alanine aminotransferase measurement (enzymatic activity/volume) 12 U/L 0-55 Serum or plasma protein measurement (mass/volume) 5.8 g/dL 6.4-8.2 Serum or plasma albumin measurement (mass/volume) 3.3 g/dL 3.2-4.5 CALCIUM CORRECTED 9.4 mg/dL 8.5-10.1 Lipid 1996 panel - 02/18/19 06:30 Serum or plasma triglyceride measurement (mass/volume) 137 mg/dL <150 Serum or plasma cholesterol measurement (mass/volume) 126 mg/dL < 200 Serum or plasma cholesterol in HDL measurement (mass/volume) 22 mg/dL 40-60 Cholesterol in LDL [mass/volume] in serum or plasma by direct assay 82 mg/dL 1-129 Serum or plasma cholesterol in VLDL measurement (mass/volume) 27 mg/dL 5-40 Serum or plasma amylase measurement (enzymatic activity/volume) - 02/18/19 06:30 Serum or plasma amylase measurement (enzymatic activity/volume) 23 U/L 25-125 Lipase - 02/18/19 06:30 Lipase 10 U/L 8-78 Capillary blood glucose measurement by glucometer (mass/volume) - 02/18/19 11:09 Capillary blood glucose measurement by glucometer (mass/volume) 152 mg/dL 70-110 Capillary blood glucose measurement by glucometer (mass/volume) - 02/18/19 16:09 Capillary blood glucose measurement by glucometer (mass/volume) 177 mg/dL 70-110 Encounters ACCT No. Visit Date/Time Discharge Status Pt. Type Provider Facility Loc./Unit Complaint [id number] 04/20/2019 09:24:00 04/20/2019 23:59:59 CLS Outpatient NEHAL GREENBERG DO [facility] CARD ABDOMINAL PAIN [id number] 04/03/2019 06:33:00 04/03/2019 23:59:59 CLS Outpatient NEHAL GREENBERG DO [facility] RAD RUQ ABD PAIN,RIGHT SHOULDER PAIN [id number] 02/28/2019 15:48:00 02/28/2019 23:59:59 CLS Outpatient ЕКАТЕРИНА VICK, INÉS Gan [facility] RAD PAIN IN RIGHT HIP [id number] 02/17/2019 19:45:00 02/18/2019 17:50:00 DIS Inpatient CHACHA VICK, PK [place] [facility] 4TH ABDOMINAL PAIN [id number] 02/12/2019 20:44:00 02/13/2019 01:14:00 DIS Emergency JODEE VICK, ANTHONY Julio [facility] ER STOMACH CRAMPING,DIARRHEA [id number] 10/15/2016 11:59:00 10/20/2016 11:10:00 DIS Inpatient AGATHA PAZ DO [facility] 4TH SWB-BRONCHITIS COPD [id number] 10/09/2016 22:12:00 10/15/2016 11:59:00 DIS Inpatient CHACHA VICK, PK [place] [facility] 4TH SEPSIS,PNEUMONIA,HYPOXIA,RENAL INSUFFICIENCY [id number] 11/25/2015 18:25:00 11/25/2015 20:33:00 DIS Emergency HIRAM FRAZIER DO [facility] ER MOUTH BLEEDING [id number] 09/01/2015 16:45:00 09/09/2015 10:45:00 DIS Inpatient INÉS WILLAMS MD [facility] SURGICAL NAUSEA/VOMITING HEADACHE FEVER CONFUSION [id number] 02/12/2014 22:35:00 02/16/2014 11:30:00 DIS Outpatient WENDY KIMBALL MD [facility] SDC VOMITING, HEMATEMESIS [id number] 10/12/2013 08:22:00 10/19/2013 14:25:00 DIS Outpatient INÉS WILLAMS MD [facility] REHAB LEG AMPUTEE [id number] 10/05/2013 18:35:00 10/05/2013 21:40:00 DIS Emergency HAZEL TAYLOR PRODUCT SAFETY CONSULTANT [facility] ER MULTIPLE COMPLAINTS [id number] 05/23/2019 10:00:00 PEN Preadmit NEHAL GREENBERG DO [facility] ENDO RUQ ABD PAIN [id number] 01/12/2015 00:00:00 Document Registration [id number] 01/12/2015 00:00:00 Document Registration [id number] 01/12/2015 00:00:00 Document Registration [id number] 12/29/2012 12:41:00 Document Registration [id number] 09/16/2012 10:19:00 Document Registration [id number] 06/23/2012 10:50:00 Document Registration [id number] 06/15/2012 12:10:00 Document Registration [id number] 05/15/2012 15:40:00 Document Registration [id number] 05/01/2012 05:04:00 Document Registration [id number] 12/12/2011 11:47:00 Document Registration [id number] 04/10/2011 08:02:00 Document Registration [id number] 04/09/2011 23:12:00 Document Registration [id number] 11/06/2009 14:04:00 Document Registration
[2019-05-07] MEDS ORDERED: fentaNYL INJECTION 250 MCG/5 ML AMP ONE (10:55)
--- NOTE | 2019-05-07 10:57 | NUR ---
Pt discharged to surgery at this time. Pulse 67, O2 96% on 2 L NC, BP 159/104.
[2019-05-07] MEDS ORDERED: ceFAZolin INJECTION 2,000 MG ONE (11:04)
[2019-05-07] MEDS ORDERED: SEVOFLURANE (ULTANE) 15 ML INHAL SOLN ONE ×2 (11:38→14:13)
[2019-05-07] MEDS ORDERED: LIDOCAINE PF 2% 5 ML (XYLOCAINE) VIAL ONE (11:38)
[2019-05-07] MEDS ORDERED: proPOfol 200 MG/20 ML (DIPRIVAN) VIAL IV ONE (11:38)
[2019-05-07] MEDS ORDERED: SUCCINYLCHOLINE INJ 100 MG/5 ML SYR ONE (11:38)
[2019-05-07] MEDS ORDERED: NEOSTIGMINE 1 MG/ML 5 ML SYRINGE ONE (11:38)
[2019-05-07] MEDS ORDERED: ONDANSETRON 4 MG/2 ML (SDV) Z0FRAN ONE ×2 (11:38→13:09)
[2019-05-07] MEDS ORDERED: ROCURONIUM 10 MG/ML 5 ML SYRINGE IV ONE (11:38)
[2019-05-07] MEDS ORDERED: GLYCOPYRROLATE 0.2 MG/ML (ROBINUL) 2 ML VIAL ONE (11:38)
[2019-05-07] MEDS ORDERED: ESMOLOL 100 MG/10 ML (BREVIBLOC) VIAL ONE (11:45)
[2019-05-07] MEDS: LACTATED RINGERS 1,000 ML IV SCH ×2 (11:50→15:10)
[2019-05-07] MEDS ORDERED: fentaNYL INJECTION 100 MCG/2 ML AMP ONE (13:08)
[2019-05-07] MEDS ORDERED: morphine INJ 10 MG/ML 1ML (SYR OR VIAL) ONE (13:09)
--- NOTE | 2019-05-07 13:20 | Progress Note-Post Operative ---
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
[2019-05-07] MEDS ORDERED: BUPIVACAINE 0.5% 30 ML (SENSORCAINE) VIAL ONE (13:22)
[2019-05-07] MEDS ORDERED: ONDANSETRON 4 MG/2 ML (SDV) Z0FRAN IVP PRN (14:15)
[2019-05-07] MEDS ORDERED: morphine INJ 10 MG/ML 1ML (SYR OR VIAL) IVP ONE (14:15)
--- NOTE | 2019-05-07 15:53 | NUR ---
143 REPORT RECEIVED FROM ANNA MARIE SANTOYO RN. PT IN ICU 8 ASSESSMENT COMPLETE - SEE FLOW SHEET. FERNANDEZ SANTOYO RN.
[2019-05-07] MEDS: inSUlin ASPART (NovoLOG) 1 UNIT/0.01 ML (CHARGE PER UNIT) SC SCH ×2 (16:07→21:10)
[2019-05-07] MEDS: ceFAZolin INJECTION 1,000 MG in WATER (STERILE) FOR INJECTION 10 ML IV SCH (17:34)
[2019-05-07] MEDS: metroNIDAZOLE 500MG/100ML IVPB 100 ML IV SCH (17:34)
[2019-05-07] MEDS ORDERED: inSUlin ASPART (NovoLOG) 1 UNIT/0.01 ML (CHARGE PER UNIT) SC SCH (19:30)
[2019-05-08] VITALS (13 sets, daily range): BP systolic 103–147; BP diastolic 47–79
--- NOTE | 2019-05-08 | NUR ---
PT BLADDER SCANNED AT THIS TIME. BLADDER SCAN SHOWED 257ML URINE. PT NOT COMPLAINING OF ANY DISCOMFORT AT THIS TIME. WILL CONTINUE TO MONITOR FOR BLADDER DISTENTION. Addendum: 05/09/19 at 0243 by ES NIELSON RN ACTUAL DATE WAS 05/09/19 AT 0000.
[2019-05-08] MEDS: LACTATED RINGERS 1,000 ML IV SCH ×3 (00:10→18:00)
[2019-05-08] MEDS: morphine INJ 4 MG/ML 1 ML (VIAL/SYRINGE) IV PRN ×5 (00:11→16:40)
[2019-05-08] MEDS: ceFAZolin INJECTION 1,000 MG in WATER (STERILE) FOR INJECTION 10 ML IV SCH ×2 (00:59→10:05)
[2019-05-08] MEDS: metroNIDAZOLE 500MG/100ML IVPB 100 ML IV SCH ×2 (01:44→10:06)
--- OUTSIDE RECORDS SUMMARY | 2019-05-08 03:26 | XMS REPORT | Continuity of Care Document ---
Author Organization Unknown Address Unknown Allergies Active Description Code Type Severity Reaction Onset Reported/Identified Relationship to Patient Clinical Status Yes NONE NONE Mild N/A 01/18/2007 Yes No Known Drug Allergies [id number] Drug Allergy Unknown N/A 10/15/2009 Medications There [...] TYPE VESSEL, NATIV 05/15/2012 Ot 440.24 ATHEROSCL [place] ARTERIES EXTREMITIES W 05/15/2012 Ot 599.0 URIN [...] V57.1 PHYSICAL THERAPY NEC 10/05/2013 HAZEL TAYLOR REIMBURSEMENT COORDINATOR Ot 466.0 ACUTE BRONCHITIS 10/05/2013 HAZEL TAYLOR REIMBURSEMENT COORDINATOR Ot 786.2 COUGH 10/19/2013 ЕКАТЕРИНА VICK, INÉS [...] R Ot I25.10 ATHSCL HEART DISEASE OF [place] CORONARY 09/09/2015 ЕКАТЕРИНА VICK, INÉS R Ot [...] FRAZIER DO Ot Y92.[address] [facility] (PRIVATE 11/25/2015 HIRAM FRAZIER DO Ot [...] MD Ot I25.10 ATHSCL HEART DISEASE OF [place] CORONARY 10/15/2016 CHACHA VICK, PK [place] Ot [...] HEMOPTYSIS 10/15/2016 PK BURNHAM MD Ot Z79.84 COLD ROLLER (CURRENT) USE OF ORAL HYPOGLYC 10/15/2016 PK [...] DO Ot I25.10 ATHSCL HEART DISEASE OF [place] CORONARY 10/20/2016 AGATHA PAZ DO Ot I50.33 [...] HEMOPTYSIS 10/20/2016 THALIA PAZ DOI Ot Z79.84 RESIDENTIAL (CURRENT) USE OF ORAL HYPOGLYC 10/20/2016 BRANDI [...] MD Ot I25.10 ATHSCL HEART DISEASE OF [place] CORONARY 02/13/2019 ANTHONY ELLSWORTH MD Ot I73.9 PERIPHERAL VASCULAR DISEASE, UNSPECIFIED 02/13/2019 ANTHONY ELLSWORTH MD Ot R10.31 RIGHT LOWER QUADRANT PAIN 02/13/2019 ANTHONY ELLSWORTH MD Ot Z79.4 COLD ROLLER (CURRENT) USE OF INSULIN 02/13/2019 ANTHONY ELLSWORTH MD Ot Z79.82 RESIDENTIAL (CURRENT) USE OF ASPIRIN 02/13/2019 ANTHONY ELLSWORTH [...] G43.909 MIGRAINE, UNSP, NOT INTRACTABLE, WITHOUT 02/14/2019 ANHTONY ELLSWORTH MD Ot I10 ESSENTIAL (PRIMARY) HYPERTENSION 02/14/2019 ANTHONY ELLSWORTH MD Ot I25.10 ATHSCL HEART DISEASE OF [place] CORONARY 02/14/2019 ANTHONY ELLSWORTH MD Ot I73.9 PERIPHERAL VASCULAR DISEASE, UNSPECIFIED 02/14/2019 ANTHONY ELLSWORTH MD Ot R10.31 RIGHT LOWER QUADRANT PAIN 02/14/2019 ANTHONY ELLSWORTH MD Ot Z79.4 RESIDENTIAL (CURRENT) USE OF INSULIN 02/14/2019 ANTHONY ELLSWORTH MD Ot Z79.82 RESIDENTIAL (CURRENT) USE OF ASPIRIN 02/14/2019 ANTHONY ELLSWORTH MD Ot Z80.43 FAMILY HISTORY OF MALIGNANT NEOPLASM OF 02/14/2019 ANTHONY ELLSWORTH MD Ot Z80.6 FAMILY HISTORY OF LEUKEMIA 02/14/2019 ANTHONY ELLSWORTH MD Ot Z87.01 PERSONAL HISTORY OF PNEUMONIA (RECURRENT 02/14/2019 ANTHONY ELLSWORTH MD Ot Z95.0 PRESENCE OF CARDIAC PACEMAKER 02/14/2019 ANTHONY ELLSWORTH MD Ot Z95.1 PRESENCE OF AORTOCORONARY BYPASS GRAFT 02/18/2019 PK BURNHAM MD Ot 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 02/18/2019 PK BURNHAM MD Ot E11.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 02/18/2019 PK BURNHAM MD Ot E78.00 PURE HYPERCHOLESTEROLEMIA, UNSPECIFIED 02/18/2019 PK BURNHAM MD Ot F17.210 NICOTINE DEPENDENCE, CIGARETTES, UNCOMPL 02/18/2019 PK BURNHAM MD, Ot F32.9 MAJOR DEPRESSIVE DISORDER, SINGLE EPISOD 02/18/2019 PK BURNHAM MD, Ot H91.90 UNSPECIFIED HEARING LOSS, UNSPECIFIED EA 02/18/2019 PK BURNHAM MD, Ot I12.9 HYPERTENSIVE CHRONIC KIDNEY DISEASE W ST 02/18/2019 PK BURNHAM MD, Ot I25.10 ATHSCL HEART DISEASE OF [place] CORONARY 02/18/2019 PK BURNHAM MD Ot K59.09 OTHER CONSTIPATION 02/18/2019 PK BURNHAM MD, Ot N18.3 CHRONIC KIDNEY DISEASE, STAGE 3 (MODERAT 02/18/2019 BURNHAM MD, PK D Ot R10.9 UNSPECIFIED ABDOMINAL PAIN 02/18/2019 PK BURNHAM MD Ot Z79.82 COLD ROLLER (CURRENT) USE OF ASPIRIN 02/18/2019 PK BURNHAM MD Ot Z79.84 COLD ROLLER (CURRENT) USE OF ORAL HYPOGLYC 02/18/2019 PK BURNHAM MD Ot Z79.899 OTHER RESIDENTIAL (CURRENT) DRUG THERAPY 02/18/2019 PK BURNHAM MD Ot Z95.0 PRESENCE OF CARDIAC PACEMAKER 02/18/2019 PK BURNHAM MD Ot Z95.1 PRESENCE OF AORTOCORONARY BYPASS GRAFT 02/18/2019 PK BURNHAM MD Ot 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 02/18/2019 PK BURNHAM MD Ot E11.40 [...] MD Ot I25.10 ATHSCL HEART DISEASE OF [place] CORONARY 02/18/2019 PK BURNHAM MD Ot K59.09 OTHER CONSTIPATION 02/18/2019 PK BURNHAM MD Ot N18.3 CHRONIC KIDNEY DISEASE, STAGE 3 (MODERAT 02/18/2019 PK BURNHAM MD Ot R10.9 UNSPECIFIED ABDOMINAL PAIN 02/18/2019 PK BURNHAM MD Ot Z79.82 RESIDENTIAL (CURRENT) USE OF ASPIRIN 02/18/2019 PK BURNHAM MD Ot Z79.84 RESIDENTIAL (CURRENT) USE OF ORAL HYPOGLYC 02/18/2019 PK BURNHAM MD Ot Z79.899 OTHER COLD ROLLER (CURRENT) DRUG THERAPY 02/18/2019 PK BURNHAM MD Ot Z95.0 PRESENCE OF CARDIAC PACEMAKER 02/18/2019 PK BURNHAM MD Ot Z95.1 PRESENCE OF AORTOCORONARY BYPASS GRAFT 03/01/2019 ЕКАТЕРИНА VICK, INÉS R Ot M17.11 UNILATERAL PRIMARY OSTEOARTHRITIS, RIGHT 03/27/2019 ЕКАТЕРИНА VICK, INÉS R Ot M17.11 UNILATERAL PRIMARY OSTEOARTHRITIS, RIGHT 03/30/2019 ЕКАТЕРИНА VICK, INÉS R Ot M17.11 UNILATERAL PRIMARY OSTEOARTHRITIS, RIGHT 04/05/2019 [place] DO, NEHAL D Ot M25.511 PAIN IN RIGHT SHOULDER 04/05/2019 GREENBERG DO, NEHAL D Ot R10.11 RIGHT UPPER QUADRANT PAIN 04/24/2019 GREENBERG DO, NEHAL D Ot M25.511 PAIN IN RIGHT SHOULDER 04/24/2019 [place] DO, NEHAL D Ot R10.11 RIGHT UPPER QUADRANT PAIN 04/26/2019 GREENBERG DO, NEHAL D Ot M25.511 PAIN IN RIGHT SHOULDER 04/26/2019 [facility], NEHAL D Ot R10.11 RIGHT UPPER QUADRANT PAIN 05/04/2019 [place] DO, NEHAL D Ot M25.511 PAIN IN RIGHT SHOULDER 05/04/2019 [facility], NEHAL D Ot R10.11 RIGHT UPPER QUADRANT PAIN Procedures Code Description Performed By Performed On 03.31 04/10/2011 00.40 PROCEDURE ON SINGLE VESSEL 05/04/2012 39.29 VASC SHUNT BYPASS [employer] [facility] 05/04/2012 39.50 ANGIOPLASTY OF OTHER NON-CORONARY VESSEL 05/04/2012 83.44 OTHER FASCIECTOMY 05/04/2012 84.11 TOE AMPUTATION 05/04/2012 38.93 VENOUS CATHETERIZATION [facility] 05/06/2012 84.15 BELOW KNEE AMPUTAT [facility] 05/09/2012 57.32 CYSTOSCOPY [facility] 05/20/2012 Results Test Result Range Complete blood [...] - 10/09/16 17:05 QUANTITY OF GROWTH Isolated [facility] Bacterial blood culture [id number] [facility] Bacterial blood culture - 10/09/16 18:08 FREE TEXT EXTERNAL PROBABLE [facility] NR QUANTITY OF GROWTH Isolated [facility] Bacterial blood culture [id number] [facility] FREE TEXT ENTRY 2 SEE COMMENTS [facility] Bacterial susceptibility panel - 10/09/16 18:08 [...] INFLUENZA A AND B ANTIGENS BY IA [facility] Complete urinalysis with reflex to culture - [...] Status Pt. Type Provider Facility Loc./Unit Complaint [id number] 04/20/2019 09:24:00 04/20/2019 23:59:59 CLS Outpatient NEHAL GREENBERG DO [facility] CARD ABDOMINAL PAIN [id number] 04/03/2019 06:33:00 04/03/2019 23:59:59 CLS Outpatient NEHAL GREENBERG DO [facility] RAD RUQ ABD PAIN,RIGHT SHOULDER PAIN [id number] 02/28/2019 15:48:00 02/28/2019 23:59:59 CLS Outpatient ЕКАТЕРИНА VICK, INÉS Gan [facility] RAD PAIN IN RIGHT HIP [id number] 02/17/2019 19:45:00 02/18/2019 17:50:00 DIS Inpatient CHACHA VICK, PK [place] [facility] 4TH ABDOMINAL PAIN [id number] 02/12/2019 20:44:00 02/13/2019 01:14:00 DIS Emergency JODEE VICK, ANTHONY Julio [facility] ER STOMACH CRAMPING,DIARRHEA [id number] 10/15/2016 11:59:00 10/20/2016 11:10:00 DIS Inpatient AGATHA PZA DO [facility] 4TH SWB-BRONCHITIS COPD [id number] 10/09/2016 22:12:00 10/15/2016 11:59:00 DIS Inpatient CHACHA VICK, PK [place] [facility] 4TH SEPSIS,PNEUMONIA,HYPOXIA,RENAL INSUFFICIENCY [id number] 11/25/2015 18:25:00 11/25/2015 20:33:00 DIS Emergency HIRAM FRAZIER DO [facility] ER MOUTH BLEEDING [id number] 09/01/2015 16:45:00 09/09/2015 10:45:00 DIS Inpatient INÉS WILLAMS MD [facility] SURGICAL NAUSEA/VOMITING HEADACHE FEVER CONFUSION [id number] 02/12/2014 22:35:00 02/16/2014 11:30:00 DIS Outpatient WENDY KIMBALL MD [facility] SDC VOMITING, HEMATEMESIS [id number] 10/12/2013 08:22:00 10/19/2013 14:25:00 DIS Outpatient INÉS WILLAMS MD [facility] REHAB LEG AMPUTEE [id number] 10/05/2013 18:35:00 10/05/2013 21:40:00 DIS Emergency HAZEL TAYLOR REIMBURSEMENT COORDINATOR [facility] ER MULTIPLE COMPLAINTS [id number] 05/23/2019 10:00:00 PEN Preadmit NEHAL GREENBERG DO [facility] ENDO RUQ ABD PAIN [id number] 01/12/2015 00:00:00 Document Registration [id number] 01/12/2015 00:00:00 Document Registration [id number] 01/12/2015 00:00:00 Document Registration [id number] 12/29/2012 12:41:00 Document Registration [id number] 09/16/2012 10:19:00 Document Registration [id number] 06/23/2012 10:50:00 Document Registration [id number] 06/15/2012 12:10:00 Document Registration [id number] 05/15/2012 15:40:00 Document Registration [id number] 05/01/2012 05:04:00 Document Registration [id number] 12/12/2011 11:47:00 Document Registration [id number] 04/10/2011 08:02:00 Document Registration [id number] 04/09/2011 23:12:00 Document Registration [id number] 11/06/2009 14:04:00 Document Registration
[2019-05-08 04:13] LABS: BASOPHILS % (AUTO) 0 % (0-10); EOSINOPHILS % (AUTO) 0 % (0-10); HEMATOCRIT 34 % (40-54); HEMOGLOBIN 10.8 G/DL (13.3-17.7); LYMPHOCYTES # (AUTO) 1.4 X 10^3 (1.0-4.0); LYMPHOCYTES % (AUTO) 14 % (12-44); MEAN CORPUSCULAR HEMOGLOBIN 29 PG (25-34); MEAN CORPUSCULAR HGB CONC 32 G/DL (32-36); MEAN CORPUSCULAR VOLUME 91 FL (80-99); MEAN PLATELET VOLUME 10.2 FL (7.4-10.4); MONOCYTES # (AUTO) 0.6 X 10^3 (0.0-1.0); MONOCYTES % (AUTO) 6 % (0-12); NEUTROPHILS % (AUTO) 80 % (42-75); PLATELET COUNT 170 10^3/uL (130-400); RED CELL DISTRIBUTION WIDTH 14.3 % (10.0-14.5); WHITE BLOOD COUNT 10.1 10^3/uL (4.3-11.0)
[2019-05-08 04:34] LABS: CALCIUM 8.2 MG/DL (8.5-10.1); CREATININE SERUM 1.42 MG/DL (0.60-1.30); MAGNESIUM 1.5 MG/DL (1.8-2.4); PHOSPHORUS 3.5 MG/DL (2.3-4.7); POTASSIUM 4.3 MMOL/L (3.6-5.0)
[2019-05-08] MEDS ORDERED: MAGNESIUM 1 GM/100 ML IVPB 200 ML IV ONE (04:36)
[2019-05-08] MEDS: inSUlin ASPART (NovoLOG) 1 UNIT/0.01 ML (CHARGE PER UNIT) SC SCH ×4 (04:39→20:55)
[2019-05-08] MEDS: MAGNESIUM 1 GM/100 ML IVPB 100 ML IV SCH ×2 (04:42→05:36)
--- NOTE | 2019-05-08 05:32 | Pulmonary Consultation ---
History of Present Illness History of Present Illness Date of Consultation 05/08/19 05:27 Time Seen by Provider: 05:36 Date of Admission History of Present Illness 83yo presented to ED secondary to worsening abdominal pain over the weekend. He was complaining on severe RLQ pain 09/07 also associated with N/V. 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 Pt is doing better now he is being monitored in ICU. He is requiring 2 liters of oxygen and is a current smoker. Pt also has renal failure. IVF are going at 125. I am consulted for pulmonary management. Allergies and Home Medications Allergies Coded Allergies: No Known Drug Allergies (Verified , 10/15/09) Home Medications Amlodipine Besylate 10 Mg Tablet, 10 MG PO HS, (Reported) Ascorbate Calcium 500 Mg Tablet, 500 MG PO DAILY, (Reported) Aspirin 81 Mg Tablet.dr, 325 MG PO DAILY, (Reported) Atenolol 50 Mg Tablet, 50 MG PO HS, (Reported) Brimonidine Tartrate 5 Ml Drops, 1 DROP OU BID, (Reported) Calcium Carbonate/Vitamin D3 1 Each Tablet, 1 TAB PO DAILY, (Reported) Finasteride 5 Mg Tablet, 5 MG PO DAILY, (Reported) Furosemide 20 Mg Tablet, 20 MG PO DAILY, (Reported) Gabapentin 300 Mg Capsule, 300 MG PO TID, (Reported) Glipizide 10 Mg Tablet, 10 MG PO HS, (Reported) Hydrocodone/Acetaminophen 1 Each Tablet, 1 TAB PO Q6H PRN for PAIN-MODERATE, (Reported) Lisinopril 20 Mg Tablet, 20 MG PO BID, (Reported) Metformin HCl 1,000 Mg Tablet, 1,000 MG PO BID, (Reported) Multivit-Min/FA/Lycopene/Lut 1 Each Tablet, 1 TAB PO DAILY, (Reported) [place]-3/Dha/Epa/Fish Oil 1 Each Capsule, 1,000 MG PO BID, (Reported) Pravastatin Sodium 40 Mg Tablet, 40 MG PO HS, (Reported) Sertraline HCl 50 Mg Tablet, 50 MG PO HS, (Reported) Tamsulosin HCl 0.4 Mg Cap.er.24h, 0.4 MG PO HS, (Reported) Past Bgystvi-Zqfdny-Hyrnbr Hx Past Med/Social Hx: Reviewed and Corrections made Patient Social History Alcohol Use: Denies Use Recreational Drug Use: No Smoking Status: Current Someday Smoker Type Used: Cigars 2nd Hand Smoke Exposure: Yes Recent Foreign Travel: No Contact w/Someone Who Travel: No Recent Infectious Disease Expo: No Recent Hopitalizations: No Immunizations Up To Date Tetanus Booster (TDap): Unknown Date of Pneumonia Vaccine: Sep 29, 2012 Seasonal Allergies Seasonal Allergies: No Past Medical History Surgeries: Yes (CABG; RIGHT BKA; RIGHT LEG ARTERY BYPASS; PACEMAKER X 2) Amputation, Cardiac, CABG, Eye Surgery, Orthopedic, Pacemaker, Vascular Surgery Respiratory: Yes Pneumonia Cardiac: Yes (CABG; PACEMAKER) Coronary Artery Disease, High Cholesterol, Hypertension, Peripheral Vascular Neurological: Yes Headaches /Migraines, Neuropathy Reproductive Disorders: No Genitourinary: Yes Prostate Problems Gastrointestinal: Yes Chronic Constipation 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, Non-Insulin dep HEENT: Yes Cataract Loss of Vision: Denies Hearing Impairment: Hard of Hearing Cancer: No Psychosocial: Yes Depression Integumentary: No Blood Disorders: No Adverse Reaction/Blood Tranf: No Family Medical History Reviewed Nursing Family Hx Diabetes mellitus GRANDMOTHER FH: leukemia G8 BROTHER Testicular cancer 19 FATHER No Pertinent Family Hx Review of Systems Time Seen by Provider: 05:35 Constitutional: Weakness, Malaise; No: Fever, Chills, Sweats, Other Eyes: No: Pain, Vision change, Conjunctivae inflammation, Eyelid inflammation, Other, Redness ENT: Nose congestion; No: Ear pain, Ear discharge, Nose pain, Nose discharge, Mouth pain, Mouth swelling, Throat pain, Throat swelling, Other Respiratory: SOB with excertion; No: Cough, Dry, Shortness of breath, Wheezing, Hemoptysis, Pleuritic Pain, Sputum, Wheezing, Other Cardiovascular: No: Chest Pain, Palpitations, Orthopnea, Paroxysmal Noc. Dyspnea, Edema, Lt Headedness, Other Gastrointestinal: Nausea, Vomiting, Abdominal Pain Sepsis Event Evaluation Height, Weight, BMI Height: 5'10.00" Weight: 234lbs. 7.0oz. 106.794720wz; 33.3 BMI Method:Stated Exam Exam Vital Signs Date Time Temp Pulse Resp B/P (MAP) Pulse Ox O2 Delivery O2 Flow Rate FiO2 05/08/19 04:00 70 20 118/47 (70) 94 Nasal Cannula 2.00 05/08/19 03:40 96 Nasal Cannula 2.00 6/10/19 03:40 98.9 05/08/19 03:00 70 21 121/47 (71) 96 Nasal Cannula 2.00 05/08/19 02:00 70 20 118/49 (72) 95 Nasal Cannula 2.00 05/08/19 01:00 70 05/08/19 01:00 70 26 103/79 (87) 95 Nasal Cannula 2.00 05/08/19 00:00 98 Nasal Cannula 2.00 05/08/19 00:00 98.6 70 14 117/47 (70) 98 Nasal Cannula 2.00 05/07/19 23:39 70 20 123/60 (81) 97 Nasal Cannula 2.00 05/07/19 22:00 70 21 115/50 (71) 96 Nasal Cannula 2.00 05/07/19 21:00 70 19 112/44 (66) 96 Nasal Cannula 2.00 05/07/19 20:00 97.5 05/07/19 20:00 97 Nasal Cannula 2.00 05/07/19 20:00 70 20 126/48 (74) 97 Nasal Cannula 2.00 05/07/19 19:00 70 05/07/19 19:00 Nasal Cannula 2.00 05/07/19 18:00 70 18 112/45 (67) 96 Nasal Cannula 2.00 05/07/19 17:11 Nasal Cannula 2.00 97 05/07/19 17:00 70 13 140/51 (80) 97 Nasal Cannula 2.00 05/07/19 16:48 94 Nasal Cannula 2.00 05/07/19 16:00 70 19 135/53 (80) 94 Nasal Cannula 2.00 05/07/19 16:00 98.1 05/07/19 15:00 70 20 161/57 (91) 96 Nasal Cannula 2.00 05/07/19 14:35 95 Nasal Cannula 2.00 05/07/19 14:30 70 17 172/62 (98) 98 Nasal Cannula 2.00 05/07/19 14:30 70 05/07/19 14:30 97.9 19 98 OxyMask 2 05/07/19 14:20 19 99 OxyMask 2 05/07/19 14:10 19 100 OxyMask 3 05/07/19 14:00 15 100 Non Rebreather 10 05/07/19 13:50 14 100 OxyMask 10 05/07/19 13:40 20 100 Ambu Bag 10 05/07/19 13:37 98.0 20 100 Ambu Bag 10 05/07/19 09:06 97.4 70 18 147/48 (81) 95 Nasal Cannula 2.00 05/07/19 05:52 97.4 70 18 165/66 (99) 98 Room Air I & O 05/08/19 07:00 Intake Total 4965 ml Output Total 1190 ml Balance 3775 ml Height & Weight Height: 5'10.00" Weight: 234lbs. 7.0oz. 106.967619op; 33.3 BMI Method:Stated General Appearance: No Apparent Distress, Mild Distress HEENT: PERRL/EOMI, Normal ENT Inspection Neck: Full Range of Motion, Normal Inspection, Non Tender Respiratory: Chest Non Tender, No Accessory Muscle Use, No Respiratory Distress Cardiovascular: Regular Rate, Rhythm Capillary Refill: Less Than 3 Seconds Gastrointestinal: normal bowel sounds, soft, tenderness (most prominent in the right lower quadrant but also present in the right upper quadrant) Extremity: Other (right lower ext amputation) Neurologic/Psychiatric: Alert, Oriented x3, education technician II-XII Norm as Tested Skin: Normal Color, Warm/Dry Lymphatic: No Adenopathy Results Lab Laboratory Tests 05/07/19 06:00 05/08/19 03:56 Assessment/Plan Assessment/Plan Ischemic colitis s/p resection -Surgery following -continue Flagyl, and Ancef Hypoxia - with probable COPD -Start SVNs Duoneb Q 6 -2 liters of oxygen currently -Wean as tolerated Acute renal failure -IVF and monitor Anemia -monitor Hypomag -replace Tobacco use -Education -out pt testing CAD BRETT TALAVERA DO May 08, 2019 05:32
[2019-05-08] MEDS ORDERED: RT-ALBUTEROL/IPRATROPIUM 3 ML (DUONEB) VIAL INH SCH (06:00)
--- NOTE | 2019-05-08 06:42 | Diagnostic Imaging Report ---
Indication: Postop ischemic bowel surgery, pacemaker. Comparison: 10/10/2016 Findings: Single view of the chest demonstrates stable cardiac enlargement. Lungs are clear. There is no pneumothorax. Osseous structures are age-appropriate. Pacemaker stable. Sternal wires midline. Impression: Stable cardiac enlargement without pulmonary edema or infiltrate. Dictated by: Dictated on workstation # [id number]
[2019-05-08] MEDS: HYDROcodone/APAP 5 MG/325 MG (LORTAB) TAB PO PRN ×2 (10:29→16:40)
--- NOTE | 2019-05-08 10:37 | NUR ---
REPORT RECEIVED FROM Lanre MULLEN RN FROM ICU AT THIS TIME. THIS RN WILL ASSUME CARE OF THIS PATIENT WHEN HE ARRIVES TO 4TH FLOOR VIA W/C.
--- NOTE | 2019-05-08 10:48 | NUR ---
REPORT GIVEN TO Karlo WOODS RN. PT TO 4TH FLOOR VIA WC ACCOMPANIED BY PATIENT CARRIER. ALL PERSONAL BELONGINGS SENT WITH PT.
[2019-05-08] MEDS ORDERED: TAMS0.4C98 PO (14:11)
[2019-05-08] MEDS ORDERED: CALC-6 PO (14:11)
[2019-05-08] MEDS ORDERED: ASPI325T32 PO (14:11)
--- NOTE | 2019-05-08 14:14 | Anesthesia-General Post-Op ---
General Patient Condition Mental Status/LOC: Same as Preop Cardiovascular: Satisfactory Nausea/Vomiting: Absent Respiratory: Satisfactory Pain: Controlled Complications: Absent Post Op Complications Complications None Follow Up Care/Instructions Patient Instructions None needed. Anesthesia/Patient Condition Patient Condition Patient is doing well, no complaints, stable vital signs, no apparent adverse anesthesia problems. No complications reported per nursing. D/C home per [facility] Criteria: LASHAE Kamara CRNA May 08, 2019 14:14
--- NOTE | 2019-05-08 14:16 | NUR ---
COMPARED THE LIST ON THE PATIENTS CHART WITH THE EXT MED HX. I CALLED THE PATIENTS TO CLARIFY THE DISCREPANCIES. IN ADDITION TO WHAT IS SHOWN ON THE EXT MED HX [facility] FILLED: 04-23-19 HYDROCODONE 10-325MG #60 Q6H PRN 04-08-19 FINASTERIDE 5MG DAILY #90 3 TAMSULOSIN 0.4MG DAILY #90 02-15-19 SERTRALINE 50MG DAILY #90 [place] [facility] DROPS WERE NOT ON FILE AT [facility]- STATES HE ONLY USES NEEDED ONCE DAILY. HE LAST FILLED 01-07-19 FUROSEMIDE 20MG DAILY #90 WHICH IS PAST DUE, I NOTED THE DATE ON THE MED REC. HIS GABAPENTIN 300MG WAS LAST FILLED #270 FOR 45 DAYS 11-08-18 - STATES SHE GIVE IT TO HIM 1 CAPSULE BID. SHE ALSO VERIFIED THE ATENOLOL IS 1/2 TAB DAILY WHICH IS HOW IS IS FILLED ACCORDING TO THE EXT MED HX BUT HER LIST STATES 1 DAILY.
--- NOTE | 2019-05-08 14:45 | Progress Note-Hospitalist ---
Progress Note Progress Notes/Assess & Plan Date Seen 05/08/19 Time Seen by Provider: 14:42 Assessment & Plan The patient is an 83-year-old white male who was admitted with abdominal pain. Laparoscopy showed evidence of ischemic colon. He subsequently had a right hemicolectomy. He is sitting in the chair at bedside and looks surprisingly good. Physical exam: He is alert and oriented. Lungs are clear to auscultation. CV is regular without murmur. Abdomen is soft. Bowel sounds are hypoactive. Extremities show a right BKA amputation as a result of diabetes and ischemia. Impression: Day 1 postop right hemicolectomy. 2.diabetes mellitus. 3.diabetes and peripheral vascular disease post-right BKA amputation. Plan: Advanced activity and diet as tolerated. Will follow with you. GODFREY LEMONS MD May 08, 2019 14:45
[2019-05-08] MEDS: RT-ALBUTEROL/IPRATROPIUM 3 ML (DUONEB) VIAL INH SCH ×2 (14:56→20:45)
--- NOTE | 2019-05-08 17:00 | NUR ---
STRAIGHT CATH USED TO EMPTY THIS PATIENT'S BLADDER AFTER BLADDER REVEALED THAT THERE WAS 355MLS OF URINE. STERILE TECHNIQUE USED DURING THIS PROCEDURE, PATIENT TOLERATED WELL, WILL CONT TO MONITOR THIS PATIENT FOR BLADDER DISTENTION. Addendum: 05/08/19 at 1703 by KRISHNA WOODS RN URINE AMOUNT RETURNED WITH STRAIGHT CATH WAS 225
--- NOTE | 2019-05-08 17:04 | Progress Note ---
Subjective Date Seen by a Provider: May 08, 2019 Time Seen by a Provider: 07:35 Subjective/Events-last exam Patient pain controlled. Urine outputs been adequate. Patient is a little better than yesterday. Tolerating some liquids. Denies any nausea vomiting fever sweats chills shortness of breath or chest pain. No flatus or bowel movement yet. Objective Exam Vital Signs Date Time Temp Pulse Resp B/P (MAP) Pulse Ox O2 Delivery O2 Flow Rate FiO2 05/08/19 14:56 95 Nasal Cannula 2.00 05/08/19 13:33 98 Nasal Cannula 2.00 05/08/19 10:00 73 16 121/48 (72) 98 Nasal Cannula 2.00 05/08/19 09:00 70 19 122/48 (72) 97 Nasal Cannula 2.00 05/08/19 08:35 96 Nasal Cannula 2.00 05/08/19 08:00 70 19 134/53 (80) 97 Nasal Cannula 2.00 05/08/19 08:00 98.6 05/08/19 07:00 70 20 130/52 (78) 94 Nasal Cannula 2.00 05/08/19 07:00 70 05/08/19 06:00 70 19 122/53 (76) 93 Nasal Cannula 2.00 05/08/19 05:00 70 18 121/49 (73) 95 Nasal Cannula 2.00 05/08/19 04:00 70 20 118/47 (70) 94 Nasal Cannula 2.00 05/08/19 03:40 96 Nasal Cannula 2.00 05/08/19 03:40 98.9 05/08/19 03:00 70 21 121/47 (71) 96 Nasal Cannula 2.00 05/08/19 02:00 70 20 118/49 (72) 95 Nasal Cannula 2.00 05/08/19 01:00 70 05/08/19 01:00 70 26 103/79 (87) 95 Nasal Cannula 2.00 05/08/19 00:00 98 Nasal Cannula 2.00 05/08/19 00:00 98.6 70 14 117/47 (70) 98 Nasal Cannula 2.00 05/07/19 23:39 70 20 123/60 (81) 97 Nasal Cannula 2.00 05/07/19 22:00 70 21 115/50 (71) 96 Nasal Cannula 2.00 05/07/19 21:00 70 19 112/44 (66) 96 Nasal Cannula 2.00 05/07/19 20:00 97.5 05/07/19 20:00 97 Nasal Cannula 2.00 05/07/19 20:00 70 20 126/48 (74) 97 Nasal Cannula 2.00 05/07/19 19:00 70 05/07/19 19:00 Nasal Cannula 2.00 05/07/19 18:00 70 18 112/45 (67) 96 Nasal Cannula 2.00 05/07/19 17:11 Nasal Cannula 2.00 97 I & O 05/08/19 07:00 Intake Total 5175 ml Output Total 1190 ml Balance 3985 ml Capillary Refill : Less Than 3 Seconds General Appearance: No Apparent Distress HEENT: PERRL/EOMI, Normal ENT Inspection Neck: Full Range of Motion, Normal Inspection, Non Tender Respiratory: Chest Non Tender, No Accessory Muscle Use, No Respiratory Distress Cardiovascular: Regular Rate, Rhythm Gastrointestinal: normal bowel sounds, soft, tenderness (incisional) Extremity: Other (right lower ext amputation) Neurologic/Psychiatric: Alert, Oriented x3, Normal Mood/Affect, refined syrup operator II-XII Norm as Tested Skin: Normal Color, Warm/Dry Lymphatic: No Adenopathy Results Lab Laboratory Tests 05/07/19 21:08: Glucometer 199H 05/08/19 03:56: White Blood Count 10.1, Red Blood Count 3.76L, Hemoglobin 10.8L, Hematocrit 34L, Mean Corpuscular Volume 91, Mean Corpuscular Hemoglobin 29, Mean Corpuscular Hemoglobin Concent 32, Red Cell Distribution Width 14.3, Platelet Count 170, Mean Platelet Volume 10.2, Neutrophils (%) (Auto) 80H, Lymphocytes (%) (Auto) 14, Monocytes (%) (Auto) 6, Eosinophils (%) (Auto) 0, Basophils (%) (Auto) 0, Neutrophils # (Auto) 8.0H, Lymphocytes # (Auto) 1.4, Monocytes # (Auto) 0.6, Eosinophils # (Auto) 0.0, Basophils # (Auto) 0.0, Sodium Level 141, Potassium Level 4.3, Chloride Level 110H, Carbon Dioxide Level 22, Anion Gap 9, Blood Urea Nitrogen 23H, Creatinine 1.42H, Estimat Glomerular Filtration Rate 47, BUN/Creatinine Ratio 16, Glucose Level 168H, Calcium Level 8.2L, Phosphorus Level 3.5, Magnesium Level 1.5L 05/08/19 11:07: Glucometer 196H 05/08/19 15:55: Glucometer 221H Assessment/Plan Assessment/Plan Assessment/Plan ischemic bowel right lower quadrant abdominal pain nausea and vomiting DM Status post right colectomy Patient clear liquid diet at this time. Once bowel function returns will advance. PAULO Clark today. Increase activity. Incentive spirometer. Clinical Quality Measures DVT/VTE Risk/Contraindication: Risk Factor Score Per Nursin RFS Level Per Nursing on Admit: 4+=Very High NEHAL GREENBERG DO May 08, 2019 17:04
[2019-05-08] MEDS: ONDANSETRON 4 MG/2 ML (SDV) Z0FRAN IV PRN (17:58)
[2019-05-09 00:14] VITALS: BP 136/63
[2019-05-09] MEDS: RT-ALBUTEROL/IPRATROPIUM 3 ML (DUONEB) VIAL INH SCH ×4 (02:57→20:40)
--- NOTE | 2019-05-09 03:28 | NUR ---
0240- PT TRYING TO URINATE AT THIS TIME WITH NO SUCCESS. 0300-BLADDER SCAN SHOWED 362ML URINE. 0315- PT STRAIGHT CATH'D WITH 300ML URINE IN RETURN. I WAS PULLING OUT CATHETER PT HAD TWO SMALL BLOOD CLOTS RETURN WITH SMALL AMT OF BLOOD. URINE IS A DARK SHANIQUE IN COLOR. WILL NOTIFY DR IN AM.
[2019-05-09 04:00] VITALS: BP 150/61
[2019-05-09] MEDS: ONDANSETRON 4 MG/2 ML (SDV) Z0FRAN IV PRN ×3 (04:15→21:27)
[2019-05-09] MEDS: LACTATED RINGERS 1,000 ML IV SCH ×3 (04:15→18:20)
[2019-05-09] MEDS: morphine INJ 4 MG/ML 1 ML (VIAL/SYRINGE) IV PRN (05:00)
[2019-05-09] MEDS: inSUlin ASPART (NovoLOG) 1 UNIT/0.01 ML (CHARGE PER UNIT) SC SCH ×4 (06:27→21:31)
--- NOTE | 2019-05-09 06:59 | NUR ---
0600-pt complaining of pain in lower abd. bladder scan showed 300ml urine in bladder. 0650- spoke with dr. bui and informed him of pts condition. telephone orders received to place reyes catheter for retention and consult dr. trejo. will carry out orders and continue to monitor pt.
--- NOTE | 2019-05-09 07:27 | Pulmonary Progress Note ---
Subjective Time Seen by a Provider: 12:40 Sepsis Event Evaluation Height, Weight, BMI Height: 5'10.00" Weight: 231lbs. 8.0oz. 105.182556dq; 33.3 BMI Method:Stated Exam Exam Vital Signs Date Time Temp Pulse Resp B/P (MAP) Pulse Ox O2 Delivery O2 Flow Rate FiO2 05/09/19 04:00 97.9 68 20 150/61 (90) 94 Nasal Cannula 2.50 05/09/19 00:14 98.3 70 18 136/63 (87) 95 Nasal Cannula 2.50 05/08/19 20:42 93 Nasal Cannula 2.00 05/08/19 20:00 Nasal Cannula 2.00 05/08/19 19:41 97 Nasal Cannula 2.50 05/08/19 19:40 100.0 70 18 130/55 (80) 86 Room Air 05/08/19 15:55 99.5 73 20 147/62 (90) 91 Room Air 05/08/19 14:56 95 Nasal Cannula 2.00 05/08/19 13:33 98 Nasal Cannula 2.00 05/08/19 10:00 73 16 121/48 (72) 98 Nasal Cannula 2.00 05/08/19 09:00 70 19 122/48 (72) 97 Nasal Cannula 2.00 05/08/19 08:35 96 Nasal Cannula 2.00 05/08/19 08:00 70 19 134/53 (80) 97 Nasal Cannula 2.00 05/08/19 08:00 98.6 I & O 05/09/19 07:00 Intake Total 3300 ml Output Total 750 ml Balance 2550 ml Height & Weight Height: 5'.00" Weight: 231lbs. 8.0oz. 105.032637gy; 33.3 BMI Method:Stated General Appearance: No Apparent Distress HEENT: PERRL/EOMI, Normal ENT Inspection Neck: Full Range of Motion, Normal Inspection, Non Tender Respiratory: Chest Non Tender, No Accessory Muscle Use, No Respiratory Distress Cardiovascular: Regular Rate, Rhythm Capillary Refill: Less Than 3 Seconds Gastrointestinal: normal bowel sounds, soft, tenderness (most prominent in the right lower quadrant but also present in the right upper quadrant) Extremity: Other (right lower ext amputation) Neurologic/Psychiatric: Alert, Oriented x3, Normal Mood/Affect, sales teacher II-XII Norm as Tested Skin: Normal Color, Warm/Dry Lymphatic: No Adenopathy Results Lab Laboratory Tests 05/08/19 03:56 Assessment/Plan Assessment/Plan Ischemic colitis s/p resection -Surgery following -continue Flagyl, and Ancef Hypoxia - with probable COPD -Start SVNs Duoneb Q 6 -2 liters of oxygen currently -Wean as tolerated Acute renal failure -IVF and monitor Anemia -monitor Tobacco use -Education -out pt testing CAD BRETT TALAVERA DO May 09, 2019 07:27
--- NOTE | 2019-05-09 07:30 | NUR ---
DR. STEEL CONSULTED FOR URINE RETENTION AT THIS TIME. THIS RN WILL CONT TO MONITOR THIS PATIENT. Addendum: 05/09/19 at 0747 by KRISHNA WOODS RN spelling error: Dr. Sal
[2019-05-09 08:00] VITALS: BP 185/66
--- NOTE | 2019-05-09 08:42 | NUR ---
PRIOR TO A.M MEDICATIONS PULSE WAS 71 BPM AND B/P WAS 185/66.
[2019-05-09] MEDS: HYDROcodone/APAP 5 MG/325 MG (LORTAB) TAB PO PRN (09:18)
[2019-05-09] MEDS: FINASTERIDE (PROSCAR) 5 MG TAB PO SCH (10:02)
--- NOTE | 2019-05-09 10:06 | NUR ---
SPO2 85% ON ROOM AIR @ REST. REPLACED O2 @ 2 LPM. SPO2 INCREASED TO 92%.
--- NOTE | 2019-05-09 12:55 | CONSULTATION REPORT ---
DATE OF SERVICE: 05/09/2019 ATTENDING PHYSICIAN: Dr. Johnston. SUMMARY: After reviewing the patient's record in the hospital and the office, this is an 83-year-old white man who had surgery for ischemic bowel by Dr. Henderson. Postoperatively, he had urinary retention and failed trial of voiding. Catheter was inserted and had some clots and hematuria. He is known to me for many years. The rectal exam 1+ benign, nontender elastic prostate. He is on Flomax 0.4 mg daily and Proscar 5 mg daily, was doing well, saw him last time in 02/15/2019, his PSA was 2.6. He was doing well on the medicines. He had previously an ultrasound that showed an enlarged prostate of 54 mL. He has not had any cystoscopies to my knowledge. He has a Clark catheter in now, draining well. IMPRESSION: Urinary retention postoperative with history of BPH and prostatism. RECOMMENDATIONS: Resume Flomax and Proscar once the patient is more ambulatory with less pain, we will do trial of voiding. We will consider possibility of cystoscopy. The plan was fully explained to the patient. Job ID: [id number] DocumentID: [id number] Dictated Date: 05/09/2019 09:44:23 Dietary Server Date: 05/09/2019 12:54:59 Dictated By: DORA MARINO MD MTDD
--- NOTE | 2019-05-09 13:43 | Progress Note-Hospitalist ---
Progress Note Progress Notes/Assess & Plan Date Seen 05/09/19 Time Seen by Provider: 13:40 Assessment & Plan The patient continues to do well. He has chomping at the bit over the idea of solid food. He has not had flatus or stool at this point. Physical exam: He is sitting in the chair at bedside. Lungs show distant breath sounds. CV is regular. Extremities show no edema. Impression: Partial bowel resection/ischemic colon. Plan: Increase activity GODFREY LEMONS MD May 09, 2019 13:43
[2019-05-09 16:24] VITALS: BP 175/71
--- NOTE | 2019-05-09 16:53 | Progress Note ---
Subjective Date Seen by a Provider: May 09, 2019 Time Seen by a Provider: 16:52 Subjective/Events-last exam Patient tolerating liquids. No flatus or bowel movement yet. Using incentive spirometer. Patient pain controlled. Had urinary retention and Clark replaced and Dr. Sal consulted. Denies any nausea vomiting fever sweats chills shortness of breath or chest pain at this time. Objective Exam Vital Signs Date Time Temp Pulse Resp B/P (MAP) Pulse Ox O2 Delivery O2 Flow Rate FiO2 05/09/19 16:24 98.6 71 22 175/71 (105) 97 Nasal Cannula 2.50 05/09/19 15:49 94 Nasal Cannula 2.00 05/09/19 10:06 85 Room Air 05/09/19 10:00 85 Room Air 2.50 05/09/19 09:18 98.1 05/09/19 08:00 98.1 71 18 185/66 (105) 94 05/09/19 04:00 97.9 68 20 150/61 (90) 94 Nasal Cannula 2.50 05/09/19 00:14 98.3 70 18 136/63 (87) 95 Nasal Cannula 2.50 05/08/19 20:42 93 Nasal Cannula 2.00 05/08/19 20:00 Nasal Cannula 2.00 05/08/19 19:41 97 Nasal Cannula 2.50 05/08/19 19:40 100.0 70 18 130/55 (80) 86 Room Air I & O 05/09/19 07:00 Intake Total 3300 ml Output Total 750 ml Balance 2550 ml Capillary Refill : Less Than 3 Seconds General Appearance: No Apparent Distress HEENT: PERRL/EOMI, Normal ENT Inspection Neck: Full Range of Motion, Normal Inspection, Non Tender Respiratory: Chest Non Tender, No Accessory Muscle Use, No Respiratory Distress Cardiovascular: Regular Rate, Rhythm Gastrointestinal: normal bowel sounds, soft, tenderness (most prominent in the right lower quadrant but also present in the right upper quadrant) Extremity: Other (right lower ext amputation) Neurologic/Psychiatric: Alert, Oriented x3, Normal Mood/Affect, 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 Once bowel function returns will advance. Urinary retention consulted Patient encouraged to increase activity. Clinical Quality Measures DVT/VTE Risk/Contraindication: Risk Factor Score Per Nursin RFS Level Per Nursing on Admit: 4+=Very High NEHAL GREENBERG DO May 09, 2019 16:53
--- NOTE | 2019-05-09 17:20 | NUR ---
DR. LEMONS NOTIFIED OF NEED TO RESTART HOME MEDICATIONS IN RE: B/P'S BEING ELEVATED THE LAST TWO DAYS IN A ROW. B/P CURRENTLY 175/71 DR. LEMONS AWARE NO NEW ORDERS AT THIS TIME.
[2019-05-09] MEDS ORDERED: NON-FORMULARY MEDICATION 1 EA EA (Brimonidine Tartrate (Alphagan P) 1 DROP) OU PRN (19:30)
[2019-05-09] MEDS ORDERED: BRIMONIDINE 0.2% (ALPHAGAN) OPHTH SOLN 5 ML BTL OU PRN (19:45)
[2019-05-09] MEDS: GABAPENTIN 300 MG (NEURONTIN) CAP PO SCH (20:05)
[2019-05-09] MEDS: TAMSULOSIN 0.4 MG (FLOMAX) CAP PO SCH (20:05)
[2019-05-09] MEDS: glipiZIDE 5 MG (GLUCOTROL) TAB PO SCH (20:05)
[2019-05-09] MEDS: SERTRALINE 50 MG (ZOLOFT) TABLET PO SCH (20:05)
[2019-05-09] MEDS: ATORVASTATIN 10 MG (LIPITOR) TABLET PO SCH (20:05)
[2019-05-09] MEDS: ATENOLOL 50 MG (TENORMIN) TAB PO SCH (20:05)
[2019-05-09] MEDS: amLODIPine 10 MG (NORVASC) TAB PO SCH (20:05)
[2019-05-09] MEDS ORDERED: NON-FORMULARY MEDICATION 1 EA EA (Metformin HCl 1,000 MG) PO SCH (21:00)
[2019-05-09] MEDS ORDERED: NON-FORMULARY MEDICATION 1 EA EA (Amlodipine Besylate 10 MG) PO SCH (21:00)
[2019-05-09] MEDS ORDERED: NON-FORMULARY MEDICATION 1 EA EA (Pravastatin Sodium 40 MG) PO SCH (21:00)
[2019-05-09] MEDS ORDERED: NON-FORMULARY MEDICATION 1 EA EA (Glipizide 10 MG) PO SCH (21:00)
[2019-05-09] MEDS ORDERED: PROMETHAZINE INJ 25 MG/ML (PHENERGAN) AMP IVP PRN (22:15)
--- NOTE | 2019-05-09 22:19 | NUR ---
PT DRY HEAVING MULTIPLE TIMES THIS EVENING ZOFRAN DOES NOT SEEM TO WORK FOR THE PT. 2213-SPOKE WITH DR. GREENBERG. TELEPHONE ORDERS RECEIVED FOR PHENERGAN 12.5MG Q6HRS PRN. WILL CARRY OUT ORDERS AND CONTINUE TO MONITOR PT.
[2019-05-10 00:20] VITALS: BP 184/71
[2019-05-10 01:05] VITALS: BP 184/71
[2019-05-10] MEDS: RT-ALBUTEROL/IPRATROPIUM 3 ML (DUONEB) VIAL INH SCH ×4 (03:11→19:34)
[2019-05-10] MEDS: LACTATED RINGERS 1,000 ML IV SCH ×4 (03:23→20:37)
[2019-05-10 04:30] VITALS: BP 155/69
[2019-05-10 05:59] LABS: HEMOGLOBIN 10.3 G/DL (13.3-17.7); MEAN PLATELET VOLUME 10.4 FL (7.4-10.4); WHITE BLOOD COUNT 6.5 10^3/uL (4.3-11.0)
[2019-05-10 06:34] LABS: BUN/CREATININE RATIO 14; CALCIUM 8.5 MG/DL (8.5-10.1); CARBON DIOXIDE 24 MMOL/L (21-32); CHLORIDE 108 MMOL/L (98-107); CREATININE SERUM 1.04 MG/DL (0.60-1.30); GFR ESTIMATED > 60; GLUCOSE 179 MG/DL (70-105); MAGNESIUM 1.7 MG/DL (1.8-2.4); POTASSIUM 3.9 MMOL/L (3.6-5.0); SODIUM 141 MMOL/L (135-145)
[2019-05-10] MEDS: inSUlin ASPART (NovoLOG) 1 UNIT/0.01 ML (CHARGE PER UNIT) SC SCH ×4 (06:34→22:53)
[2019-05-10] MEDS: metFORMIN 500 MG (GLUCOPHAGE) TAB PO SCH ×2 (06:40→17:13)
[2019-05-10] MEDS: FINASTERIDE (PROSCAR) 5 MG TAB PO SCH (09:06)
[2019-05-10] MEDS: GABAPENTIN 300 MG (NEURONTIN) CAP PO SCH ×2 (09:06→20:37)
--- NOTE | 2019-05-10 09:22 | Progress Note-Urology ---
Progress Note-Urology Progress Notes/Assess & Plan Progress/Assessment & Plan AZEVEDO DRAINING WELL. URINE CLEAR SHANIQUE. ONCE FEELS WELL AND AMBULATING WELL WE WILL TRY VOIDING Final Diagnosis URINE RETENTION DORA MARINO MD May 10, 2019 09:22
--- NOTE | 2019-05-10 10:44 | Progress Note-Hospitalist ---
Subjective HPI/CC On Admission Date Seen by Provider: May 10, 2019 Time Seen by Provider: 10:00 Subjective/Events-last exam Pt doing very well today Passing gas but no bowel movement PT, OT, and Inpatient Rehab will be evaluating pt Had a right above the knee amputation 5 years ago He has been for 55 years and intends to go back home Abdominal pain is much improved Review of Systems General: Fatigue Objective Exam Vital Signs Vital Signs Date Time Temp Pulse Resp B/P (MAP) Pulse Ox O2 Delivery O2 Flow Rate FiO2 05/10/19 20:10 98.9 70 20 144/58 (86) 93 Nasal Cannula 2.50 05/07/19 17:11 97 Capillary Refill : Less Than 3 Seconds General Appearance: No Apparent Distress, WD/WN, Chronically ill HEENT: PERRL/EOMI, Normal ENT Inspection Neck: Full Range of Motion, Normal Inspection, Non Tender Respiratory: Chest Non Tender, No Accessory Muscle Use, No Respiratory Distress Cardiovascular: Regular Rate, Rhythm Gastrointestinal: Tenderness (peritoneal, pain out of proportion to exam, consistent with ischemic bowel) Rectal: Deferred Back: No CVA Tenderness Extremity: Other (right lower ext amputation) Neurologic/Psychiatric: Alert, Oriented x3, Normal Mood/Affect, apricot washer II-XII Norm as Tested Skin: Normal Color, Warm/Dry Lymphatic: No Adenopathy Results/Procedures Lab Laboratory Tests 05/10/19 05:48 Patient resulted labs reviewed. Assessment/Plan Assessment and Plan Assess & Plan/Chief Complaint Assessment: Ischemic colitis s/p resection Post op ileus COPD with hypoxia Acute renal failure Anemia Smoker CAD DM Right AKA 4 yrs ago Debility Plan: PT/OT IRF? 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 (4) Smoker Status: Chronic (5) COPD (chronic obstructive pulmonary disease) Status: Chronic Qualifiers: COPD type: unspecified COPD Qualified Codes: J44.9 - Chronic obstructive pulmonary disease, unspecified (6) Ischemic bowel disease Status: Acute (7) Right-sided abdominal pain of unknown cause Status: Resolved Resolution Date/Time: 05/10/19 @ 11:51 (8) Intractable nausea and vomiting Status: Resolved Qualifiers: Vomiting type: unspecified Qualified Codes: R11.2 - Nausea with vomiting, unspecified Resolution Date/Time: 05/10/19 @ 11:51 (9) Abdominal pain Status: Acute Qualifiers: Abdominal location: generalized Qualified Codes: R10.84 - Generalized abdominal pain (10) Anemia Status: Chronic Qualifiers: Anemia type: unspecified type Qualified Codes: D64.9 - Anemia, unspecified (11) Diabetes mellitus Status: Chronic Qualifiers: Diabetes mellitus type: type 2 Diabetes mellitus alf insulin use: without termite control technician use Diabetes mellitus complication status: with other specified complication Qualified Codes: E11.69 - Type 2 diabetes mellitus with other specified complication Clinical Quality Measures DVT/VTE Risk/Contraindication: Risk Factor Score Per Nursin RFS Level Per Nursing on Admit: 4+=Very High AGATHA PAZ DO May 10, 2019 10:44
--- NOTE | 2019-05-10 11:26 | Physical Therapy Evaluation ---
PT Evaluation-General Medical Diagnosis Admission Date May 07, 2019 at 14:30 Medical Diagnosis: ischemic colitis, s/p resection Onset Date: May 07, 2019 Therapy Diagnosis Therapy Diagnosis: impaired mobility, strength, endurance, balance Height/Weight Height (Feet): 5 Height (Inches): 10.00 Weight (Pounds): 228 Weight (Ounces): 5.0 Precautions Precautions/Isolations: Fall Prevention, Standard Precautions Weight Bear Status Right Lower Extremity: Right Weight Bearing/Tolerated Left Lower Extremity: Left Weight Bearing/Tolerated Referral Physician: Mirna Ballesteros DO Reason for Referral: Evaluation/Treatment Medical History Pertinent Medical History: CABG, CAD, DM, Heart Failure, HTN, Neuropathy, PVD, Smoking Additional Medical History Past Medical History Surgeries: Yes (CABG; RIGHT BKA; RIGHT LEG ARTERY BYPASS; PACEMAKER X 2) Amputation, Cardiac, CABG, Eye Surgery, Orthopedic, Pacemaker, Vascular Surgery Respiratory: Yes Pneumonia Cardiac: Yes (CABG; PACEMAKER) Coronary Artery Disease, High Cholesterol, Hypertension, Peripheral Vascular Neurological: Yes Headaches /Migraines, Neuropathy Reproductive Disorders: No Genitourinary: Yes Prostate Problems Gastrointestinal: Yes Chronic Constipation 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, Non-Insulin dep HEENT: Yes Cataract Loss of Vision: Denies Hearing Impairment: Hard of Hearing Cancer: No Psychosocial: Yes Depression Integumentary: No Blood Disorders: No Adverse Reaction/Blood Tranf: No Social History Home: Single Level Current Living Status: Spouse Entry Into Home: Ramp Prior/Core FIM Prior Level of Function Therapy Code Descriptions/Definitions Functional [place] Measure: 0=Not Assessed/NA 4=Minimal Assistance 1=Total Assistance 5=Supervision or Setup 2=Maximal Assistance 6=Modified [place] 3=Moderate Assistance 7=Complete [place] Therapy Quality Codes: 6 Independent with activity with or without an assistive device 5 Patient requires set up or clean up by helper. Patient completes activity by themselves 4 Supervision or touching assist (CGA). [place] provide cues , steadying assist 3 The helper provides less than half the effort to complete the activity 2 The helper provides more than half the effort to complete the activity 1 Dependent. The helper does all the effort to complete an activity 7 Patient refused to complete or attempt activity 9 The patient did not perform the activity before the current illness or injury 88 Not attempted due to Medical conditions or safety concerns Functional Abilities and Goals: Independent: Patient completed the activities by him/herself, with or without an assistive device, with no assistance from a helper. Needed Some Help: Patient needed partial assistance from another person to complete activities. Dependent: A helper completed the activities for the patient. Unknown: Not Applicable: Bed Mobility: 6 Transfers (B,C,W/C) (FIM): 6 Gait: 6 Indoor Mobility (Ambulation): Independent Patient states he was using a single point cane previously. PT Evaluation-Current Subjective Patient sitting EOB pre tx, agrees to PT, states he doesn't have much pain at rest but has some with activity. Patient already has his prosthetic leg donned on the right LE. He wants to put some shorts on which he does with min assist. Pt/Family Goals to be independent at home Objective Patient Orientation: Person, Place, Situation Attachments: Oxygen, Clark Catheter, IV ROM/Strength ROM Lower Extremities WNL except has a slight knee flexion contracture on the right side Neuromuscular (Tone, Coordination, Reflexes) NT Sensory Vision: Functional Hearing: Functional Sensation Right Lower Extremit: Impaired Sensation Lower Extremities Patient has numbness in his left leg from the knee down Transfers Therapy Code Descriptions/Definitions Functional [place] Measure: 0=Not Assessed/NA 4=Minimal Assistance 1=Total Assistance 5=Supervision or Setup 2=Maximal Assistance 6=Modified [place] 3=Moderate Assistance 7=Complete [place] Transfers (B, C, W/C) (FIM): 3 Scootin Rollin Supine to/from Sit: 5 Sit to/from Stand: 3 Mod assist for sit to stand. Min assist for transfers due to needing assist with guiding walker. Patient is impulsive and doesn't seem to be aware of his lines. Gait Mode of Locomotion: Walk Anticipated Mode of Locomotion: Walk Gait (FIM): 2 Distance: 60' Gait Level of Assist: 4 Gait Persons Needed: 1 Gait Assistive Device: FWW Comments/Gait Description CGA, patient needs cues to slow down, moments of unsteadiness but no LOB, tends to have walker too far out in front, impulsive Balance Sitting Static: Normal Sitting Dynamic: Normal Standing Static: Fair Standing Dynamic: Fair Treatment seated exercises x20 (AP on the left side, LAQ) Assessment/Needs Patient has impaired mobility, strength, endurance, balance. He is impulsive with mobility and has poor safety awareness. Rehab Potential: Fair PT Short Term Goals Short Term Goals Time Frame: May 17, 2019 Transfers (B,C,W/C) (FIM): 5 Gait (FIM): 5 Gait Distance Comment: 150' Gait Level of Assist: 5 Gait Assistive Device: FWW PT Plan Problem List Problem List: Activity Tolerance, Functional Strength, Safety, Balance, Gait, Transfer, ROM Treatment/Plan Treatment Plan: Continue Plan of Care Treatment Plan: Education, Functional Activity [place], Functional Strength, Gait, Safety, Therapeutic Exercise, Transfers Treatment Duration: May 17, 2019 Frequency: 6 times per week Estimated Hrs Per Day: .25 hour per day (15-30') Patient and/or Family Agrees t: Yes Safety Risks/Education Patient Education: Gait Training, Transfer Techniques, Correct Positioning, Safety Issues Teaching Recipient: Patient Teaching Methods: Demonstration, Discussion Response to Teaching: Reinforcement Needed Discharge Recommendations Plan Patient will perform bed mobility and transfer training, balance and endurance training, functional strengthening, gait training, and education, to improve functional mobility and independence at home. Therapy D/C Recommendations: Assisted Living, Home w/ Family Support Time/GCodes Time In: 1058 Time Out: 1113 Total Billed Treatment Time: 15 Total Billed Treatment 1 visit EVM 15' NICOLE ESCUDERO PT May 10, 2019 11:26
--- NOTE | 2019-05-10 14:03 | Occupational Therapy Eval ---
OT Evaluation-General/PLF Medical Diagnosis Admission Date May 07, 2019 at 14:30 Medical Diagnosis: ischemic colitis, s/p resection Onset Date: May 07, 2019 Therapy Diagnosis Therapy Diagnosis: impaired ADLs and mobility Height/Weight Height (Feet): 5 Height (Inches): 10.00 Weight (Pounds): 228 Weight (Ounces): 5.0 Precautions Precautions/Isolations: Fall Prevention, Standard Precautions Safety Interventions: None Referral Physician: Mirna Ballesteros DO Medical History Pertinent Medical History: CABG, CAD, DM, Heart Failure, HTN, Neuropathy, PVD, Smoking Current History per H&P: "Patient is an 83 year old male who has been having abdominal pain on and off for about last month. Patient with severe right lower quadrant abdominal pain that has recurred and now severe. Having nausea and vomiting. Patient had ct scan that has pneumotosis and venous mesenteric gas around the cecum. Patient is a diabetic as well. Movement makes worse or pushing on abdomen severe. Laying still slightly better." Social History Home: Single Level Current Living Status: Spouse Entry Into Home: Ramp ADL-Prior Level of Function Therapy Code Descriptions/Definitions Functional [place] Measure: 0=Not Assessed/NA 4=Minimal Assistance 1=Total Assistance 5=Supervision or Setup 2=Maximal Assistance 6=Modified [place] 3=Moderate Assistance 7=Complete [place] Therapy Quality Codes: 6 Independent with activity with or without an assistive device 5 Patient requires set up or clean up by helper. Patient completes activity by themselves 4 Supervision or touching assist (CGA). [place] provide cues , steadying assist 3 The helper provides less than half the effort to complete the activity 2 The helper provides more than half the effort to complete the activity 1 Dependent. The helper does all the effort to complete an activity 7 Patient refused to complete or attempt activity 9 The patient did not perform the activity before the current illness or injury 88 Not attempted due to Medical conditions or safety concerns Functional Abilities and Goals: Independent: Patient completed the activities by him/herself, with or without an assistive device, with no assistance from a helper. Needed Some Help: Patient needed partial assistance from another person to complete activities. Dependent: A helper completed the activities for the patient. Unknown: Not Applicable: ADL PLOF Comments pt was independence PLOF using SPC. pt does not drive Self Care: Independent Functional Cognition: Independent DME/Equipment: Bath Chair, Grab Bars, Shower Drive Self: No OT Current Status Subjective pt agreed to OT evaluation. pt complains of no pain Pain Numeric Pain Scale: 0-No Pain Mental Status/Objective Patient Orientation: Person, Place, Time, Situation, Normal For Age Attachments: Clark Catheter, IV, Oxygen Current Glasses/Contacts: Yes Hearing Aids: No Dentures/Partials: Yes Hand Dominance: Right Upper Extremity ROM Altaf UE WFL Upper Extremity Coordination Altaf UE WFL Upper Extremity Sensation Altaf UE WFL Upper Extremity Strength Altaf UE 4/5 MMT ADL-Treatment Therapy Code Descriptions/Definitions Functional [place] Measure: 0=Not Assessed/NA 4=Minimal Assistance 1=Total Assistance 5=Supervision or Setup 2=Maximal Assistance 6=Modified [place] 3=Moderate Assistance 7=Complete [place] Therapy Quality Codes: 6 Independent with activity with or without an assistive device 5 Patient requires set up or clean up by helper. Patient completes activity by themselves 4 Supervision or touching assist (CGA). [place] provide cues , steadying assist 3 The helper provides less than half the effort to complete the activity 2 The helper provides more than half the effort to complete the activity 1 Dependent. The helper does all the effort to complete an activity 7 Patient refused to complete or attempt activity 9 The patient did not perform the activity before the current illness or injury 88 Not attempted due to Medical conditions or safety concerns pt required MIN A to perform LB dressing (assist to ty L socks post doffing. pt refused eduction on AE to increase independence. pt stated he has used AE in past and does not like it., pt required Min A for functional transfers, CGA while standing at sink for safety/ balance using RW. pt REF toileting this date. pt normally using SPC at home but use FRW this date for safety. balance Other Treatments pt stated he feels that his arm have become slightly weak while in hospital. pt education on RED theraband to increase UE strength for daily activities. pt given hand out. pt perform 15X1 shoulder FLEX/ ADD/ ABD, elbow flex/ EXT. noted SOB with activity and limited activity tolerance. pt education on importance of breathing while performing task and pursed lip breathing. pt verbalized understanding. post OT Session pt sitting in recliner chair. all needs met. call light with in reach. Education OT Patient Education: Energy conservation, Exercise program, Home exercise program Teaching Recipient: Patient Teaching Methods: Demonstration, Discussion Response to Teaching: Verbalize Understanding, Return Demonstration OT Short Term Goals Short Term Goals Grooming(FIM): 5 Toileting(FIM): 5 Transfers (B,C,W/C) (FIM): 5 Toilet/Commode Transfer(FIM): 5 1=Demonstrate adherence to instructed precautions during ADL tasks. 2=Patient will verbalize/demonstrate understanding of assistive devices/modifications for ADL. 3=Patient will improve strength/tolerance for activity to enable patient to perform ADL's. OT Half-Way Goals Drum Saw Operator Goals Time Frame: May 24, 2019 Grooming(FIM): 6 Bathing(FIM): 6 Lower Body Dressing(FIM): 6 Toileting(FIM): 6 Transfers (B,C,W/C) (FIM): 6 Toilet/Commode Transfer(FIM): 6 Additional Goals: 1-Demonstrate ADL Tasks, 2-Verbalize Understanding, 3- ImproveStrength/[place] 1=Demonstrate adherence to instructed precautions during ADL tasks. 2=Patient will verbalize/demonstrate understanding of assistive devices/modifications for ADL. 3=Patient will improve strength/tolerance for activity to enable patient to perform ADL's. OT Education/Plan Problem List/Assessment Assessment: Decreased Activ Tolerance, Decreased Safety Aware, Decreased UE Strength, Impaired Funct Balance, Impaired I ADL's, Impaired Self-Care Skills pt presents with functional limitations affecting areas of ADLS in the above mention. pt would benefit from OT services to increase independence with ADLs/ functional transfers. Discharge Recommendations Plan/Recommendations: Continue POC Therapy D/C Recommendations: Home w/ Family Support Treatment Plan/Plan of Care Treatment,Training & Education: Yes Patient would benefit from OT for education, treatment and training to promote independence in ADL's, mobility, safety and/or upper extremity function for ADL's. Plan of Care: ADL Retraining, Functional Mobility, Group Exercise/Act as Ind, UE Funct Exercise/Act Treatment Duration: May 24, 2019 Frequency: 5 times per week Estimated Hrs Per Day: .25 hour per day Rehab Potential: Fair Time/GCodes Start Time: 13:25 Stop Time: 13:50 Billed Treatment Time EVM 15 minutes EX 10 minutes, 1 unit PAWAN DIAZ OT May 10, 2019 14:03
--- NOTE | 2019-05-10 14:43 | Pulmonary Progress Note ---
Subjective Time Seen by a Provider: 12:44 Subjective/Events-last exam NO complications noted. Sepsis Event Evaluation Height, Weight, BMI Height: 5'10.00" Weight: 228lbs. 5.0oz. 103.476459fj; 33.3 BMI Method:Stated Exam Exam Vital Signs Date Time Temp Pulse Resp B/P (MAP) Pulse Ox O2 Delivery O2 Flow Rate FiO2 05/10/19 09:05 Nasal Cannula 2.00 05/10/19 08:52 96 Nasal Cannula 2.50 05/10/19 04:30 98.2 69 23 155/69 (97) 96 Nasal Cannula 2.50 05/10/19 03:12 92 Nasal Cannula 2.00 05/10/19 00:20 98.0 70 21 184/71 (108) 97 Nasal Cannula 2.50 05/09/19 20:41 Nasal Cannula 2.00 05/09/19 20:00 Nasal Cannula 2.00 05/09/19 16:24 98.6 71 22 175/71 (105) 97 Nasal Cannula 2.50 05/09/19 15:49 94 Nasal Cannula 2.00 I & O 05/10/19 07:00 Intake Total 3595 ml Output Total 1750 ml Balance 1845 ml Height & Weight Height: 5'10.00" Weight: 228lbs. 5.0oz. 103.571146wt; 33.3 BMI Method:Stated General Appearance: No Apparent Distress, WD/WN, Chronically ill HEENT: PERRL/EOMI, Normal ENT Inspection Neck: Full Range of Motion, Normal Inspection, Non Tender Respiratory: Chest Non Tender, No Accessory Muscle Use, No Respiratory Distress Cardiovascular: Regular Rate, Rhythm Capillary Refill: Less Than 3 Seconds Gastrointestinal: normal bowel sounds, soft, tenderness (most prominent in the right lower quadrant but also present in the right upper quadrant) Extremity: Other (right lower ext amputation) Neurologic/Psychiatric: Alert, Oriented x3, Normal Mood/Affect, electro mechanic II-XII Norm as Tested Skin: Normal Color, Warm/Dry Lymphatic: No Adenopathy Results Lab Laboratory Tests 05/10/19 05:48 Assessment/Plan Assessment/Plan Ischemic colitis s/p resection -Surgery following Hypoxia - with probable COPD -Start SVNs Duoneb Q 6 -2 liters of oxygen currently -Wean as tolerated Acute renal failure -IVF and monitor Anemia -monitor Tobacco use -Education -out pt testing CAD BRETT TALAVERA DO May 10, 2019 14:42
[2019-05-10 16:11] VITALS: BP 157/63
[2019-05-10] MEDS: glipiZIDE 5 MG (GLUCOTROL) TAB PO SCH (17:13)
[2019-05-10 20:10] VITALS: BP 144/58
[2019-05-10] MEDS: TAMSULOSIN 0.4 MG (FLOMAX) CAP PO SCH (20:37)
[2019-05-10] MEDS: ATORVASTATIN 10 MG (LIPITOR) TABLET PO SCH (20:37)
[2019-05-10] MEDS: ATENOLOL 50 MG (TENORMIN) TAB PO SCH (20:37)
[2019-05-10] MEDS: SERTRALINE 50 MG (ZOLOFT) TABLET PO SCH (20:37)
[2019-05-10] MEDS: amLODIPine 10 MG (NORVASC) TAB PO SCH (20:37)
[2019-05-10] MEDS: HYDROcodone/APAP 5 MG/325 MG (LORTAB) TAB PO PRN (20:43)
--- NOTE | 2019-05-10 22:31 | Progress Note ---
Subjective Date Seen by a Provider: May 10, 2019 Time Seen by a Provider: 17:36 Subjective/Events-last exam Patient with some nausea overnight now resolved. Passing flatus and had bm. wanting more food. denies n/v fever sweats chills shortness of breath or chest pain. Pain controlled. Objective Exam Vital Signs Date Time Temp Pulse Resp B/P (MAP) Pulse Ox O2 Delivery O2 Flow Rate FiO2 05/10/19 20:10 98.9 70 20 144/58 (86) 93 Nasal Cannula 2.50 05/10/19 19:36 92 Nasal Cannula 2.00 05/10/19 16:11 98.5 70 22 157/63 (94) 95 Nasal Cannula 2.50 05/10/19 15:07 98 Nasal Cannula 2.50 05/10/19 09:05 Nasal Cannula 2.00 05/10/19 08:52 96 Nasal Cannula 2.50 05/10/19 04:30 98.2 69 23 155/69 (97) 96 Nasal Cannula 2.50 05/10/19 03:12 92 Nasal Cannula 2.00 05/10/19 00:20 98.0 70 21 184/71 (108) 97 Nasal Cannula 2.50 I & O 05/10/19 07:00 Intake Total 3595 ml Output Total 1750 ml Balance 1845 ml Capillary Refill : Less Than 3 Seconds General Appearance: No Apparent Distress, WD/WN, Chronically ill HEENT: PERRL/EOMI, Normal ENT Inspection Neck: Full Range of Motion, Normal Inspection, Non Tender Respiratory: Chest Non Tender, No Accessory Muscle Use, No Respiratory Distress Cardiovascular: Regular Rate, Rhythm Gastrointestinal: normal bowel sounds, soft, tenderness (incisional, incision c/d/i) Extremity: Other (right lower ext amputation) Neurologic/Psychiatric: Alert, Oriented x3, Normal Mood/Affect, internal medicine physician II-XII Norm as Tested Skin: Normal Color, Warm/Dry Lymphatic: No Adenopathy Results Lab Laboratory Tests 05/10/19 05:48: White Blood Count 6.5, Red Blood Count 3.59L, Hemoglobin 10.3L, Hematocrit 33L, Mean Corpuscular Volume 92, Mean Corpuscular Hemoglobin 29, Mean Corpuscular Hemoglobin Concent 31L, Red Cell Distribution Width 14.0, Platelet Count 169, Mean Platelet Volume 10.4, Sodium Level 141, Potassium Level 3.9, Chloride Level 108H, Carbon Dioxide Level 24, Anion Gap 9, Blood Urea Nitrogen 15, Creatinine 1.04, Estimat Glomerular Filtration Rate > 60, BUN/Creatinine Ratio 14, Glucose Level 179H, Calcium Level 8.5, Magnesium Level 1.7L 05/10/19 05:57: Glucometer 165H 05/10/19 11:01: Glucometer 152H 05/10/19 16:11: Glucometer 153H 05/10/19 21:02: Glucometer 173H Assessment/Plan Assessment/Plan Assessment/Plan ischemic bowel right lower quadrant abdominal pain nausea and vomiting-improved DM Status post right colectomy Urinary retention Advance diet. Urinary retention consulted Patient encouraged to increase activity. Clinical Quality Measures DVT/VTE Risk/Contraindication: Risk Factor Score Per Nursin RFS Level Per Nursing on Admit: 4+=Very High NEHAL GREENBERG DO May 10, 2019 22:31
[2019-05-11] MEDS: RT-ALBUTEROL/IPRATROPIUM 3 ML (DUONEB) VIAL INH SCH ×2 (03:18→09:32)
[2019-05-11 04:00] VITALS: BP 147/66
[2019-05-11] MEDS: LACTATED RINGERS 1,000 ML IV SCH (04:47)
[2019-05-11 06:44] LABS: HEMOGLOBIN 11.6 G/DL (13.3-17.7); RED CELL DISTRIBUTION WIDTH 13.5 % (10.0-14.5); WHITE BLOOD COUNT 6.8 10^3/uL (4.3-11.0)
[2019-05-11] MEDS: metFORMIN 500 MG (GLUCOPHAGE) TAB PO SCH (06:59)
[2019-05-11] MEDS: inSUlin ASPART (NovoLOG) 1 UNIT/0.01 ML (CHARGE PER UNIT) SC SCH ×2 (06:59→11:15)
[2019-05-11 07:06] LABS: BUN/CREATININE RATIO 14; CALCIUM 8.6 MG/DL (8.5-10.1); CARBON DIOXIDE 27 MMOL/L (21-32); CHLORIDE 106 MMOL/L (98-107); CREATININE SERUM 1.01 MG/DL (0.60-1.30); GFR ESTIMATED > 60; GLUCOSE 153 MG/DL (70-105); MAGNESIUM 1.6 MG/DL (1.8-2.4); POTASSIUM 3.8 MMOL/L (3.6-5.0); SODIUM 141 MMOL/L (135-145)
[2019-05-11] MEDS: FINASTERIDE (PROSCAR) 5 MG TAB PO SCH (08:55)
[2019-05-11] MEDS: GABAPENTIN 300 MG (NEURONTIN) CAP PO SCH (08:55)
--- NOTE | 2019-05-11 10:13 | Progress Note-Hospitalist ---
Subjective HPI/CC On Admission Date Seen by Provider: May 11, 2019 Time Seen by Provider: 09:45 Subjective/Events-last exam Pt doing very well today Ready for inpatient rehab Will heplock IV fluid and DC catheter but he does report urinary retention so will monitor that closely, and may need urology consultation Bowels are moving very well today Labs were reviewed and all are okay Needs to strengthen before DC so going to inpatient rehab today, I did confer with Dr. Henderson who approves this plan Review of Systems Gastrointestinal: Abdominal Pain Objective Exam Vital Signs Vital Signs Date Time Temp Pulse Resp B/P (MAP) Pulse Ox O2 Delivery O2 Flow Rate FiO2 05/11/19 13:03 05/11/19 09:32 92 Nasal Cannula 3.00 05/11/19 04:00 98.2 73 20 05/07/19 17:11 97 Capillary Refill : Less Than 3 Seconds General Appearance: No Apparent Distress, WD/WN, Chronically ill HEENT: PERRL/EOMI, Normal ENT Inspection Neck: Full Range of Motion, Normal Inspection, Non Tender Respiratory: Chest Non Tender, No Accessory Muscle Use, No Respiratory Distress Cardiovascular: Regular Rate, Rhythm Gastrointestinal: Tenderness (peritoneal, pain out of proportion to exam, consistent with ischemic bowel) Rectal: Deferred Back: No CVA Tenderness Extremity: Other (right lower ext amputation) Neurologic/Psychiatric: Alert, Oriented x3, Normal Mood/Affect, 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 (4) Smoker Status: Chronic (5) COPD (chronic obstructive pulmonary disease) Status: Chronic Qualifiers: COPD type: unspecified COPD Qualified Codes: J44.9 - Chronic obstructive pulmonary disease, unspecified (6) Ischemic bowel disease Status: Acute (7) Right-sided abdominal pain of unknown cause Status: Resolved Resolution Date/Time: 05/10/19 @ 11:51 (8) Intractable nausea and vomiting Status: Resolved Qualifiers: Vomiting type: unspecified Qualified Codes: R11.2 - Nausea with vomiting, unspecified Resolution Date/Time: 05/10/19 @ 11:51 (9) Abdominal pain Status: Acute Qualifiers: Abdominal location: generalized Qualified Codes: R10.84 - Generalized abdominal pain (10) Anemia Status: Chronic Qualifiers: Anemia type: unspecified type Qualified Codes: D64.9 - Anemia, unspecified (11) Diabetes mellitus Status: Chronic Qualifiers: Diabetes mellitus type: type 2 Diabetes mellitus lobsterman insulin use: without shelter use Diabetes mellitus complication status: with other specified complication Qualified Codes: E11.69 - Type 2 diabetes mellitus with other specified complication Clinical Quality Measures DVT/VTE Risk/Contraindication: Risk Factor Score Per Nursin RFS Level Per Nursing on Admit: 4+=Very High AGATHA PAZ DO May 11, 2019 10:13
--- NOTE | 2019-05-11 11:03 | NUR ---
IRF Evaluation Order received to evaluate patient for the ARU. Chart reviewed and discussed with Dr. Ballesteros - patient accepted. CM/SS notified. Anticipate admission, 05/11/19. Thank you for this referral.
--- NOTE | 2019-05-11 20:05 | OPERATIVE REPORT ---
DATE OF SERVICE: 05/07/2019 PREOPERATIVE DIAGNOSIS: Ischemic bowel. POSTOPERATIVE DIAGNOSIS: Ischemic right colon. PROCEDURE: Exploratory laparotomy with right colon resection. SURGEON: Nehal Henderson DO ANESTHESIA: General. ESTIMATED BLOOD LOSS: Minimal. COMPLICATIONS: None. SPECIMEN: Right colon. INDICATIONS: The patient is an 83-year-old male with right lower quadrant abdominal pain. CT scan findings suggestive of ischemic colon and physical exam, his peritoneal consistent with ischemic bowel. The patient and family were discussed risks and benefits of procedure and wished to proceed with procedure. Consent was signed in the chart. PROCEDURE: The patient was taken to the operating suite and prepped and draped in sterile fashion. Timeout was performed. Midline incision was made with a 15 blade scalpel. Cautery was used to dissect down to the fascia, which was then opened and the abdomen was then entered. Putrid smell present upon opening the abdomen. The small bowel was then inspected, which had normal appearance. The right colon was then brought up, which had the cecum and a small portion of the ascending colon that was ischemic. The right colon was then mobilized along the white line of Toldt. The bowel was brought up through the incision. The colon was continued to be mobilized up around the hepatic flexure, mobilizing the hepatic flexure for length for reanastomosis. The right colon was then dissected around and a MARCO A linear blue staple was then fired across the colon. The terminal ileum was then dissected around and a MARCO A reload was then fired across the ileum. LigaSure was then used to divide the mesentery removing the distal portion of the ileum, appendix and portion of the right colon. The ileum was brought back to the colon and a [id number] anastomosis was created using the MARCO A-75 blue stapler. Once the two limbs were fired across the opening was then closed using the linear MARCO A staple reload as well. The mesenteric defect was then closed using 3-0 Vicryl in a running fashion. The anastomosis was widely patent and had good blood supply to it. The anastomosis was then placed back into the abdomen. The abdomen was irrigated with copious amounts of irrigation. The small bowel was run from the anastomosis to the ligament of Treitz noting no other pathology. The rest of the colon was inspected having normal appearance. The liver had normal appearance. The stomach had normal appearance. No other pathology noted within the abdomen. Before taking the anastomosis back into the abdomen a 3-0 Vicryl was used to place a crotch stitch as well. Again, the abdomen was irrigated and suctioned. Hemostasis had been achieved. The fascia was then closed using 1-0 looped PDS. The wound was then irrigated and skin was then stapled closed. The abdomen was washed and dried, sterile bandage was applied. The patient tolerated procedure well without any complications. He was taken to recovery room in stable condition. Job ID: [id number] DocumentID: [id number] Dictated Date: 05/11/2019 15:24:40 Spreading Machine Operator Date: 05/11/2019 20:05:33 Dictated By: NEHAL HENDERSON DO
--- NOTE | 2019-05-12 06:28 | DISCHARGE SUMMARY ---
DATE OF SERVICE: ADMITTING DIAGNOSES: Acute ischemic bowel, right colon. Nausea and vomiting. Right lower quadrant abdominal pain. Diabetes. DISCHARGE DIAGNOSES: Acute ischemic bowel, right colon, status post exploratory laparotomy, right colectomy. Nausea and vomiting, resolved. Urinary retention, diabetes, hypoxia resolved. Acute renal failure, resolved. Hypomagnesemia. Anemia, postsurgical/delusional. ADMITTING PHYSICIAN: Nehal Greenberg D.O. CONSULTANTS: Dr. Garcia, Dr. Johnston and Dr. Sal. HOSPITAL COURSE: The patient is an 83-year-old male, who presented to Emergency Department with severe abdominal pain. Workup and exam consistent with ischemic bowel. The patient on 05/07/2019 underwent exploratory laparotomy with right colon resection. Postoperatively, the patient was placed in the ICU and monitor closely. The patient continued to improve. Once he was tolerating clears and passing flatus, his diet was advanced. He had urinary retention where his Clark was replaced and Dr. Sal was consulted. The patient continued to improve throughout hospital course. The patient with some debility and it was felt the patient would be best suited for inpatient rehabilitation for continued improvement. The patient was discharged on 05/11/2019 to inpatient rehabilitation facility. At the time of discharge, patient doing well. His bowels are functioning. He is tolerating diet. His pain was controlled. Please see discharge instructions on the computer. Job ID: [id number] DocumentID: [id number] Dictated Date: 05/11/2019 16:16:40 Wood Carver Hand Date: 05/12/2019 06:27:54 Dictated By: NEHAL GREENBERG DO MTDJered
== END 2019-05-11 12:45 | DRG 330 ==
LOC: EDUNIT# 05:46 → ER 05:47 → UNDOADMIN 08:25 → 4TH 08:25 → SDC 10:48 → ICU 13:40 → SDC 14:30 → 4TH 05-08 10:45
PROVIDERS: ADMIT Surgery; ATTEND Surgery
PROC: 0DTF0ZZ Resection of Right Large Intestine, Open Approach (ICD-10-PCS; principal; 2019-05-07 11:04)
DX: K55.031 Focal (segmental) acute (reversible) ischemia of large intestine (principal); N17.9 Acute kidney failure, unspecified; K56.7 Ileus, unspecified; D64.9 Anemia, unspecified; E83.42 Hypomagnesemia; N40.1 Benign prostatic hyperplasia with lower urinary tract symptoms; R33.9 Retention of urine, unspecified; J44.9 Chronic obstructive pulmonary disease, unspecified; R09.02 Hypoxemia; F17.290 Nicotine dependence, other tobacco product, uncomplicated; I25.10 Atherosclerotic heart disease of native coronary artery without angina pectoris; I10 Essential (primary) hypertension; E11.51 Type 2 diabetes mellitus with diabetic peripheral angiopathy without gangrene; E11.40 Type 2 diabetes mellitus with diabetic neuropathy, unspecified; K76.0 Fatty (change of) liver, not elsewhere classified; E78.00 Pure hypercholesterolemia, unspecified; F32.9 Major depressive disorder, single episode, unspecified; G43.909 Migraine, unspecified, not intractable, without status migrainosus; K59.09 Other constipation; F22 Delusional disorders; Z79.84 Long term (current) use of oral hypoglycemic drugs; Z95.0 Presence of cardiac pacemaker; Z89.511 Acquired absence of right leg below knee; Z95.1 Presence of aortocoronary bypass graft
CPT/HCPCS: 36415; 71045; 74174; 74178; 80048; 80053; 80306; 81000; 82962; 83615; 83690; 83735; 84100; 85025; 85027; 88307; 94640; 94664; 94760; 96361; 96374; 96375; 96376

== ENCOUNTER 2019-05-11 10:20 | Inpatient (IN) | payer MEDICARE ==
[~2019-05-11] VITALS: Ht 175.3 cm; Wt 102.8 kg
[~2019-05-11 10:20] MED LIST changes: +CALC-6 PO; +TAMS0.4C98 PO
[2019-05-11] MEDS ORDERED: CALCIUM CARBONATE 500 MG (TUMS) TAB.CHEW PO PRN (10:30)
[2019-05-11] MEDS ORDERED: ACETAMINOPHEN 500 MG TAB (TYLENOL) PO PRN (10:30)
[2019-05-11] MEDS ORDERED: DOCUSATE SODIUM 100 MG (COLACE) CAP PO PRN (10:30)
[2019-05-11] MEDS ORDERED: ONDANSETRON 4 MG (ZOFRAN) ORAL DISSOLVE TAB PO PRN (10:30)
[2019-05-11] MEDS ORDERED: MELATONIN 3 MG TABLET PO PRN (10:30)
[2019-05-11] MEDS ORDERED: diphenhydrAMINE 25 MG TAB (BENADRYL) PO PRN (10:30)
[2019-05-11] MEDS ORDERED: ONDANSETRON 4 MG/2 ML (SDV) Z0FRAN IVP PRN (10:30)
[2019-05-11 13:15] VITALS: BP 134/55
--- NOTE | 2019-05-11 13:15 | NUR ---
JOSE ADKINS admitted to room 223-1, with an admitting diagnosis of DEBILITY AND POST EXP LAP WITH COLON RESECTION, on 05/11/[address] [facility] [address] via , accompanied by STAFF.JOSE ADKINS introduced to surroundings, call light, bed controls, phone, TV, temperature control, lights, meal times, smoking policy, visitor policy, side rail policy, bathrooms and showers. Patient Rights given to patient in the handbook.JOSE ADKINS verbalizes understanding that [facility] is not responsible for the loss or damage to any personal effects or valuables that are kept in the patients posession during their hospitalization. The following Patient Care Plans were discussed with the PT: Discharge Planning AND IMPAIRED MOBILITY. JOSE ADKINS verbalizes understanding of Interdisciplinary Patient Education. Patient received Patient Rights Booklet, which includes Privacy Act Statement and Data Collection Information Summary. O2 PLACED BACK ON AT 2L DUE TO ROOM AIR SAT 88%. DENIES PAIN PRESENTLY. SALINE LOCK INTACT RIGHT AC.
--- NOTE | 2019-05-11 13:27 | NUR ---
REVIEWED MED REC IT WAS REPORTED UPON ADMISSION TO 4TH FLOOR. NO CHANGES WERE MADE WHEN THE PATIENT DISCHARGED TO REHAB.
[2019-05-11 13:32] VITALS: BP 134/55
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
[2019-05-11] MEDS ORDERED: morphine INJ 4 MG/ML 1 ML (VIAL/SYRINGE) IV PRN (14:00)
[2019-05-11] MEDS ORDERED: ONDANSETRON 4 MG/2 ML (SDV) Z0FRAN IV PRN (14:00)
[2019-05-11] MEDS ORDERED: BRIMONIDINE 0.2% (ALPHAGAN) OPHTH SOLN 5 ML BTL OU PRN (14:00)
[2019-05-11] MEDS ORDERED: PROMETHAZINE INJ 25 MG/ML (PHENERGAN) AMP IVP PRN (14:00)
--- NOTE | 2019-05-11 14:56 | Occupational Therapy Eval ---
OT Evaluation-General/PLF Medical Diagnosis Admission Date May 11, 2019 at 12:45 Medical Diagnosis: : s/p colon resection; debility Onset Date: May 11, 2019 Therapy Diagnosis Therapy Diagnosis: impaired ADLs and mobility Height/Weight Height (Feet): 5 Height (Inches): 9.00 Weight (Pounds): 232 Weight (Ounces): 0.8 Precautions Precautions/Isolations: Fall Prevention, Standard Precautions Weight Bear Status Weight Bearing Restriction: Weight Bearing/Tolerated WBS (Ord/Comment): has right prosthtic leg Referral Physician: Favian Referral Reason: Activity Tolerance, Self Care, Evaluation/Treatment, Strengthening/ROM Medical History Pertinent Medical History: CABG, CAD, DM, Heart Failure, HTN, Neuropathy, PVD, Smoking Current History Pt admitted to [facility] with complaints of abdominal pain with N/V; found to have an ischemic bowel and is post colon resection. Transferred to ARU for continued medical management as well as skilled therapy services. Reviewed History: Yes Social History Home: Single Level Current Living Status: Spouse Entry Into Home: Ramp ADL-Prior Level of Function Therapy Code Descriptions/Definitions Functional Colbert Measure: 0=Not Assessed/NA 4=Minimal Assistance 1=Total Assistance 5=Supervision or Setup 2=Maximal Assistance 6=Modified Colbert 3=Moderate Assistance 7=Complete Colbert Therapy Quality Codes: 6 Independent with activity with or without an assistive device 5 Patient requires set up or clean up by helper. Patient completes activity by themselves 4 Supervision or touching assist (CGA). [place] provide cues , steadying assist 3 The helper provides less than half the effort to complete the activity 2 The helper provides more than half the effort to complete the activity 1 Dependent. The helper does all the effort to complete an activity 7 Patient refused to complete or attempt activity 9 The patient did not perform the activity before the current illness or injury 88 Not attempted due to Medical conditions or safety concerns Functional Abilities and Goals: Independent: Patient completed the activities by him/herself, with or without an assistive device, with no assistance from a helper. Needed Some Help: Patient needed partial assistance from another person to complete activities. Dependent: A helper completed the activities for the patient. Unknown: Not Applicable: ADL PLOF Comments pt stated he majority uses w/c throughout house and will occasionally use SPC for stand pivot transfers. pt then stated he is able to ambulate approx 100 ft with SPC PRN Self Care: Independent Functional Cognition: Independent DME/Equipment: Bath Chair, Grab Bars, Shower Drive Self: No Leisure Interests: fixing old cars OT Current Status Subjective pt laying in bed upon OT arrival in no apparent distress. pt agreed to OT evaluation session. pt complains of no pain. pt wearing 2L O2 NC. post OT evaluation session t agreed to OT/ PT co-treatment. Appearance post OT/ PT session. pt doffed right prosthetic and R knee and distal to knee red. NSG aware. pt reported ambulated makes prosthetic rub on his leg. Mental Status/Objective Patient Orientation: Person, Place, Time, Situation Attachments: Oxygen Current Glasses/Contacts: Yes Hearing Aids: Yes Dentures/Partials: Yes Hand Dominance: Right Upper Extremity ROM WFL Upper Extremity Coordination WFL finger to nose test Upper Extremity Sensation WFL Altaf UE Upper Extremity Strength 4/5 MMT Altaf UE ADL-Treatment Eating (FIM): 5 (set up ) Eating (QC): 5 Grooming (FIM): 4 (CGA while standing at sink for safety/ balnace. cuing for proper hand placement ) Oral Hygiene (QC): 4 Bathing (FIM): 4 (CGA for safety/ balnac. cuing for energy conservation during task.noted SOB ) Bathing Location: L Arm, R Arm, L Upper Leg, R Upper Leg, L Lower Leg (including foot), Chest, Abdomen, Buttocks, Perineal Area Shower/Bathe Self (QC): 4 Upper Body Dressing (FIM): 4 Upper Body Dressing (QC): 4 Lower Body Dressing (FIM): 1 (pt reuqired assist with threading Altaf legs into brief and pants, pt reuqired assi with doffing left shoe, and assist with pulling up pants. pt did demo ability to ty prosthetic leg ) Lower Body Dressing (QC): 1 On/Off Footwear (QC): 3 Toileting (FIM): 2 (pt reuqired assist with pulling up/ down pants. pt able to perform hygiene ) Toileting Hygiene (QC): 2 Transfers (B, C, W/C) (FIM): 3 Toilet/Commode Transfer (FIM): 3 Toilet Transfer (QC): 3 Shower Transfer (FIM): 3 pt perform bed mobility with MAX A from supine to sit. noted core weakness and increase pain when performing bed mobility. pt required MOD A when performing sit to stands and functional transfers along with skilled cuing for sequencing. Co treatment with PT performed secondary to skill of two clinicians required due to complexity of pt. pt O2 depended, R prosthesis, and recent abdominal surgery. Co-Treatment took place with shower. OT address ADL tasks and PT addressed functional balance and standing. pt required heavy cuing for sequencing and safety. post ADLS pt self propelled self to [place] gym,. noted pt primarily pushed w/c backward and would turn forward for turned. pt then perform UBE 6 minutes forward with WATT 35 to increase activity tolerance for ADLS. ppt then self propelled back to room and perform stand pivot transfer with MOD A and bed mobility with MAX A. call light within reach, all needs met. Education OT Patient Education: Energy conservation, Modified ADL techniques, Progress toward Goal/Update tx plan, Purpose of tx/functional activities, Reviewed precautions, Rehab process, Safety issues, Transfer techniques Teaching Recipient: Patient Teaching Methods: Demonstration, Discussion Response to Teaching: Verbalize Understanding, Return Demonstration OT Short Term Goals Short Term Goals Grooming(FIM): 5 Bathing(FIM): 5 Upper Body Dressing(FIM): 5 Lower Body Dressing(FIM): 5 Toileting(FIM): 5 Transfers (B,C,W/C) (FIM): 5 Toilet/Commode Transfer(FIM): 5 Shower Transfer(FIM): 5 1=Demonstrate adherence to instructed precautions during ADL tasks. 2=Patient will verbalize/demonstrate understanding of assistive devices/modifications for ADL. 3=Patient will improve strength/tolerance for activity to enable patient to perform ADL's. OT Nursing Home Goals Nursing Home Goals Time Frame: Jun 08, 2019 Eating (FIM): 6 Eating (QC): 6 Groomin Oral Hygiene (QC): 6 Bathing(FIM): 6 Bathing Location: L Arm, R Arm, L Upper Leg, R Upper Leg, L Lower Leg (including foot), R Lower Leg (including foot), Chest, Abdomen, Buttocks, Perineal Area Shower/Bathe Self (QC): 6 Upper Body Dressing(FIM): 6 Upper Body Dressing (QC): 6 Lower Body Dressing(FIM): 6 Lower Body Dressing (QC): 6 On/Off Footwear (QC): 6 Toileting(FIM): 6 Toileting Hygiene (QC): 6 Transfers (B,C,W/C) (FIM): 6 Toilet/Commode Transfer(FIM): 6 Toilet/Commode Transfer (QC): 6 Shower Transfer(FIM): 6 Additional Goals: 1-Demonstrate ADL Tasks, 2-Verbalize Understanding, 3- ImproveStrength/Katlyn 1=Demonstrate adherence to instructed precautions during ADL tasks. 2=Patient will verbalize/demonstrate understanding of assistive d evices/modifications for ADL. 3=Patient will improve strength/tolerance for activity to enable patient to perform ADL's. OT Education/Plan Problem List/Assessment Assessment: Decreased Activ Tolerance, Decreased Safety Aware, Decreased UE Strength, Impaired Bed Mobility, Impaired Funct Balance, Impaired I ADL's, Impaired Self-Care Skills pt presents with functional limitations affecting areas of ADLs and functional transfers with the above mention deficits. pt would benefit from skilled OT services to increase independence with ADLS/ functional transfers and for safe transition to home. Discharge Recommendations Plan/Recommendations: Continue POC Barriers to Progress limited activity tolerance Treatment Plan/Plan of Care Treatment,Training & Education: Yes Patient would benefit from OT for education, treatment and training to promote independence in ADL's, mobility, safety and/or upper extremity function for ADL's. Plan of Care: ADL Retraining, Caregiver Training, Concurrent Therapy, Functional Mobility, Group Exercise/Act as Ind, UE Funct Exercise/Act Treatment Duration: Jun 08, 2019 Frequency: At least 5 of 7 days/Wk (IRF) Estimated Hrs Per Day: 1 hour per day (60-90 minutes per day ) Agreement: Yes Rehab Potential: Good Time/GCodes Start Time: 13:30 Stop Time: 14:45 Billed Treatment Time EVM 15 minutes ([id number]) Co-treat with PT 45 minutes ADL 50 minutes (4815- [id number]), 3 units EX 10 minutes ([id number]), 1 unit PAWAN DIAZ OT May 11, 2019 14:56
--- NOTE | 2019-05-11 15:11 | ST Cognitive Linguistic Eval ---
Speech Evaluation-General Medical Diagnosis s/p colon resection; debility Onset Date: May 11, 2019 Therapy Diagnosis Therapy Diagnosis: Cognitive-communication Precautions Precautions/Isolations: Fall Prevention, Standard Precautions Referral Referring Physician: Dr. Ballesteros Medical History Pertinent Medical History: CABG, CAD, DM, Heart Failure, HTN, Neuropathy, PVD, Smoking Reviewed History: Yes Social History Current Living Status: Spouse Speech PLF-Current Status Prior Level of Function The patient lives at home with his where he plans to return post rehab. Subjective The patient was compliant with the cognitive evaluation. Language Eval: Auditory Comprehends Simple Yes/No Ques: Functional Indent/Objects Multiple Stewart: Functional Ident/Pics in Multiple Stewart: Functional Follows 1-Step Commands: Functional Follows Complex Directions: Functional Follows General Conversations: Functional Language Eval: Verbal Language Completes Spontaneous Greeting: Functional Produces Auto, Serial Info: Functional Imitates Simple Words/Phrases: Functional Word Finding: Functional Requests Basic Needs: Functional States Basic Personal Info: Functional Expresses Complex Ideas: Mild Objective Cognitive Domain Attention: WNL Memory: WNL Problem Solving: Functional Executive Functions: WNL Visuospatial Skills: WNL Composite Severity Rating: WNL Clock Drawing Severity Rating: WNL Objective Formal/Standardized Tests [facility] Mental Status ([facility]) Results The patient scored within the normal range of 28/30 Oral Motor/Speech Production Within Functional Limits Impression The patient is a pleasant 83 year old male who was admitted to the ARU s/p colon resection. He completed the SLUMS at 28/30 which is within the normal range. He does not warrant skilled ST services at this time. Communication/Social Cognition Comprehension: 7 Expression: 7 Social Interaction: 7 Problem Solvin Memory: 7 Speech Patient Assess Expression of Ideas/Wants: Expression (4) Understanding Verbal Content: Understands (4) Brief Interview-Mental Status: Yes Repetition of Three Words: Three (3) Temporal Orientation: Year: Correct (3) Temporal Orientation: Month: Accurate within 5 days(2) Temporal Orientation: Day: Correct (1) Recall : Wear to say "Sock": Yes, no cue required (2) Recall : Color: Yes, after cueing (1) Recall : Bed: Yes,after cueing (1) Memory/Recall Ability: Current season, That he or she is in a hsp/hsp unit Speech-Plan Patient/Family Goals Patient/Family Goals: The patient plans on returning to his home with his post rehab. Treatment Plan Speech Therapy Treatment Plan: Discontinue ST The patient is not recommended for skilled ST at this time. Treatment Duration: May 11, 2019 Frequency: 1 time per week Estimated Hrs Per Day: .25 hour per day Rehab Potential: Good Barriers to Learning: None identified Pt/Family Agrees to Plan: Yes Safety Risks/Education Teaching Recipient: Patient Teaching Methods: Discussion Response to Teaching: Verbalize Understanding Education Topics Provided: Safety within his room. Time Speech Therapy Time In: 14:45 Speech Therapy Time Out: 15:00 Total Billed Time: 15 Billed Treatment Time 1, SPSNDCOMP BONIFACIO Kraus May 11, 2019 15:11
--- NOTE | 2019-05-11 15:30 | NUR ---
FIRST VOIDING SINCE AZEVEDO CATHETER WAS DC'D AT 1100. VOIDED IN TOILET AND UNABLE TO MEASURE AMOUNT.
[2019-05-11] MEDS: RT-ALBUTEROL/IPRATROPIUM 3 ML (DUONEB) VIAL INH SCH ×2 (15:54→20:26)
[2019-05-11] MEDS: inSUlin ASPART (NovoLOG) 1 UNIT/0.01 ML (CHARGE PER UNIT) SC SCH ×2 (16:00→20:42)
[2019-05-11 17:06] VITALS: BP 143/66
--- NOTE | 2019-05-11 17:15 | NUR ---
SCALP TREATMENT OPERATOR met with patient to complete initial assessment. Patient was alert and oriented and agreeable to assessment. Patient admitted to ARU from internally with debility following colon resection due to a ischemic bowel. Patient also has history of right BKA and completed in ARU stay proximally 8 years ago following procedure. Prior to hospitalization patient resided with spouse, Faby in a one level home in [place], [place]. The home is equipped with a ramp at the entrance. Patient reportedly reports ambulating with assistance of a cane, Rollator walker or wheelchair dependent upon task in fatigue level, but reports independence with all daily activities. Patient also states he possesses several pieces of equipment at home. Due to vision, patient no longer drives. Patient presents with O2; however, does not utilize this at home. Primary contact identified as spouse, Faby at [phone] and secondary contact as daughter Kenyetta of [place] at [phone]. Patient's spouse works department clinician and struggles with her own health concerns, per patient. Patient identifies close relationship with daughter and son who reside locally; however, they do both work multimedia production assistant. PCP identified as Dr. Itz Evans. Insurance verified as Medicare and [employer] Medicare supplement with preferred pharmacy as [facility]. SCALP TREATMENT OPERATOR reviewed typical a RU length of stay and weekly team conferences, patient expresses no concerns at this time. SCALP TREATMENT OPERATOR will continue to follow.
[2019-05-11] MEDS: metFORMIN 500 MG (GLUCOPHAGE) TAB PO SCH (17:26)
[2019-05-11] MEDS: glipiZIDE 5 MG (GLUCOTROL) TAB PO SCH (17:26)
--- NOTE | 2019-05-11 18:15 | NUR ---
BLADDER SCAN SHOWS 295 CC.
--- NOTE | 2019-05-11 19:00 | NUR ---
UP TO TOILET. EXPELLED STOOL AND VOIDED UNKNOWN AMOUNT.
[2019-05-11] MEDS: TAMSULOSIN 0.4 MG (FLOMAX) CAP PO SCH (20:25)
[2019-05-11] MEDS: GABAPENTIN 300 MG (NEURONTIN) CAP PO SCH (20:25)
[2019-05-11] MEDS: SERTRALINE 50 MG (ZOLOFT) TABLET PO SCH (20:25)
[2019-05-11] MEDS: amLODIPine 10 MG (NORVASC) TAB PO SCH (20:25)
[2019-05-11] MEDS: ATENOLOL 50 MG (TENORMIN) TAB PO SCH (20:25)
[2019-05-11] MEDS: ATORVASTATIN 10 MG (LIPITOR) TABLET PO SCH (20:25)
--- NOTE | 2019-05-11 21:30 | NUR ---
Pt unable to void and feeling uncomfortable. Bladder scan shows 411ml. Straight cathed using sterile technique and 450ml clear light eliazar urine noted. Pt tony well with no c/o's. Cont to monitor.
[2019-05-11] MEDS: HYDROcodone/APAP 5 MG/325 MG (LORTAB) TAB PO PRN (21:37)
[2019-05-12] MEDS: RT-ALBUTEROL/IPRATROPIUM 3 ML (DUONEB) VIAL INH SCH ×4 (02:18→19:16)
[2019-05-12] MEDS: inSUlin ASPART (NovoLOG) 1 UNIT/0.01 ML (CHARGE PER UNIT) SC SCH ×4 (05:34→21:01)
[2019-05-12 05:44] VITALS: BP 142/57
[2019-05-12] MEDS: metFORMIN 500 MG (GLUCOPHAGE) TAB PO SCH ×2 (06:29→16:56)
[2019-05-12] MEDS: FINASTERIDE (PROSCAR) 5 MG TAB PO SCH (08:17)
[2019-05-12] MEDS: GABAPENTIN 300 MG (NEURONTIN) CAP PO SCH ×2 (08:17→21:01)
--- NOTE | 2019-05-12 08:20 | NUR ---
UP TO BATHROOM FOR BM. STATES ALSO VOIDED UNKNOWN AMOUNT. BLADDER SCAN SHOWS 80 CC. O2 SAT 98% ON 3L AND TITRATED TO 2L.
[2019-05-12] MEDS ORDERED: RT-ALBUTEROL/IPRATROPIUM 3 ML (DUONEB) VIAL INH PRN (08:45)
--- NOTE | 2019-05-12 09:12 | Progress Note-Urology ---
Progress Note-Urology Progress Notes/Assess & Plan Progress/Assessment & Plan AZEVEDO OUT YESTERDAY. VOIDING ON OWN. ONE TIME STRAIGHT CATH YESTERDAY. PLAN PER ORDERS Final Diagnosis URINE RETENTION DORA MARINO MD May 12, 2019 09:12
--- NOTE | 2019-05-12 09:17 | PM&R H&P / Post Admit Assess ---
History of Present Illness HPI/Chief Complaint Chief complaint: Debility HPI: This is an 83yoWM clinic Pt of Dr. Gallagher who underwent significant small bowel resection from acute ischemia performed by Dr. Henderson who regained stability but was unable to return directly back home to live independently with his prior to intensive rehab training. He just had a BM today and we have ordered for the catheter to be discontinued along with the IV fluid and he is able to eat a regular diet. Dr. 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 Overall he is in agreement with the plan and he will be transferred to inpatient rehab. Source: patient, RN/MD, old records Exam Limitations: no limitations Date Seen 05/12/19 Time Seen by a Provider: 09:00 Attending Physician Mirna Paz Floyd R MD Referring Physician Date of Admission May 11, 2019 at 12:45 Home Medications & Allergies Home Medications Reviewed patient Home Medication Reconciliation performed by pharmacy medication reconciliations aviation technician aircraft and/or nursing. Patients Allergies have been reviewed. Allergies Allergies Coded Allergies No Known Drug Allergies (Gumcgybn02/17/09) Past Yicngxw-Olrwxh-Hlkkne Hx Past Med/Social Hx: Reviewed Nursing Past Med/Soc Hx, Reviewed and Corrections made Patient Social History Marrital Status: Employed/Student: retired Alcohol Use: Denies Use Recreational Drug Use: No Smoking Status: Former Smoker Type Used: Cigars 2nd Hand Smoke Exposure: Yes Physical Abuse Screen: No Sexual Abuse: No Recent Foreign Travel: No Contact w/other who traveled: No Recent Hopitalizations: Yes (COLON RESECTION -) Recent Infectious Disease Expo: No Immunizations Up To Date Tetanus Booster (TDap): Unknown Date of Pneumonia Vaccine: Sep 29, 2012 Seasonal Allergies Seasonal Allergies: No Past Medical History Surgeries: Amputation, Cardiac, CABG, Eye Surgery, Orthopedic, Pacemaker, Vascular Surgery Respiratory: COPD, Sleep Apnea Currently Using CPAP: No Currently Using BIPAP: No Cardiac: Coronary Artery Disease, High Cholesterol, Hypertension, Peripheral Vascular Neurological: Headaches /Migraines, Neuropathy Reproductive: No Genitourinary: Prostate Problems Gastrointestinal: Chronic Constipation Musculoskeletal: Amputee Endocrine: Diabetes, Non-Insulin dep Are Your Blood Sugars Over 250: No HEENT: Cataract Loss of Vision: Denies Hearing Impairment: Hard of Hearing Psychosocial: Depression History of Blood Disorders: No Adverse Reaction to Blood Pimentel: No Family History Diabetes mellitus GRANDMOTHER FH: leukemia G8 BROTHER Testicular cancer 19 FATHER No Pertinent Family Hx Review of Systems Constitutional: see HPI, weakness EENTM: no symptoms reported Respiratory: no symptoms reported Cardiovascular: no symptoms reported Gastrointestinal: abdominal pain Genitourinary: no symptoms reported Musculoskeletal: back pain, joint pain Skin: no symptoms reported Psychiatric/Neurological: No Symptoms Reported All Other Systems Reviewed Negative Unless Noted: Yes Physical Exam Exam Vital Signs Vital Signs Date Time Temp Pulse Resp B/P (MAP) Pulse Ox O2 Delivery O2 Flow Rate FiO2 05/12/19 07:48 98 Nasal Cannula 3.00 05/12/19 05:44 97.7 71 16 142/57 (85) Capillary Refill : Less Than 3 Seconds General Appearance: No Apparent Distress, WD/WN, Chronically ill, Obese HEENT: PERRL/EOMI, Normal ENT Inspection, Pharynx Normal, Moist Mucous Membranes Neck: Full Range of Motion, Normal Inspection, Non Tender, Supple Respiratory: Chest Non Tender, Lungs Clear, No Accessory Muscle Use, No Respiratory Distress, Decreased Breath Sounds Cardiovascular: Regular Rate, Rhythm, No Edema, No Gallop, No JVD, No Murmur Gastrointestinal: Normal Bowel Sounds, No Organomegaly, No Pulsatile Mass, Soft, Tenderness (generalized) Back: Normal Inspection, No CVA Tenderness, No Vertebral Tenderness Extremity: Normal Capillary Refill, Normal Inspection, Normal Range of Motion, Non Tender, No Calf Tenderness, No Pedal Edema Neurologic/Psychiatric: Alert, Oriented x3, No Motor/Sensory Deficits, Normal Mood/Affect, sports equipment racker II-XII Norm as Tested, Motor Weakness (subtle weakness all extremities), Other (right AKA stump no ulcerations) Skin: Normal Color, Warm/Dry Lymphatic: No Adenopathy Results Results/Procedures Labs Patient resulted labs reviewed. 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 (4) Smoker Status: Chronic (5) COPD (chronic obstructive pulmonary disease) Status: Chronic Qualifiers: COPD type: unspecified COPD Qualified Codes: J44.9 - Chronic obstructive pulmonary disease, unspecified (6) Ischemic bowel disease Status: Acute (7) Right-sided abdominal pain of unknown cause Status: Resolved Resolution Date/Time: 05/10/19 @ 11:51 (8) Intractable nausea and vomiting Status: Resolved Qualifiers: Vomiting type: unspecified Qualified Codes: R11.2 - Nausea with vomiting, unspecified Resolution Date/Time: 05/10/19 @ 11:51 (9) Abdominal pain Status: Acute Qualifiers: Abdominal location: generalized Qualified Codes: R10.84 - Generalized abdominal pain (10) Anemia Status: Chronic Qualifiers: Anemia type: unspecified type Qualified Codes: D64.9 - Anemia, unspecified (11) Diabetes mellitus Status: Chronic Qualifiers: Diabetes mellitus type: type 2 Diabetes mellitus marine oil terminal superintendent insulin use: without marine oil terminal superintendent use Diabetes mellitus complication status: with other specified complication Qualified Codes: E11.69 - Type 2 diabetes mellitus with other specified complication (1) Debility (2) Ileus following gastrointestinal surgery (3) Abdominal pain (4) Anemia (5) Diabetes mellitus (6) COPD (chronic obstructive pulmonary disease) (7) Hypoxia (8) Wheezing (9) Renal insufficiency (10) S/P partial resection of colon (11) Above knee amputation of right lower extremity (12) Smoker Post Admission Physician Asses Date seen by provider: May 12, 2019 Time seen by provider: 09:00 Admisison Dx: (1) Debility The preadmission screen agrees with the post admission assessment that the patient is a good candidate for inpatient rehabilitation. The patient will have a comprehensive program of inpatient rehabilitation with a goal of maximizing level of functional independence prior to discharge home with family. The patient will have PT/OT ninety minutes per day, each discipline, five days a week for gait, strengthening, conditioning, balance, ADLs, any patient/family/caregiver training as necessary. Speech therapy to do cognitive assessment and treat as indicated. Rehabilitation nursing to assist with bowel, bladder, skin, wound care, medication administration, pain management. Pre Algebra Teacher to assist with discharge planning, community reentry. SCD's for DVT prophylaxis. He appears to be well motivated to participate in three hours of therapy a day. He should be able to tolerate three hours of therapy a day from a medical standpoint. He should benefit from the three hours of therapy a day. He has a reasonable discharge plan, reasonable discharge rehabilitation goals and a supportive family. He has various comorbidities that need to be closely monito red with medications and treatments adjusted on a daily basis as needed. These include: see list Barriers to discharge for this patient who had been independent prior to this are for him to be modified independent to supervision for ADLs and mobility ski lls prior to discharge home with family, so as to lessen the burden of the caregivers. Risks for this patient include: 1. Fall 2. Fracture 3. DVT 4. Pulmonary embolism 5. Wound infection 6. Skin breakdown 7. Contractures 8. Poorly controlled pain 9. Urinary retention 10. UTI 11. Respiratory infection 12. Aspiration Estimated Length of Stay: 7 days Prognosis: Rehab prognosis appears good for goal of discharge home with family modified independent to supervision for ADLs and mobility skills. MIRNA PAZ DO May 12, 2019 09:17
--- NOTE | 2019-05-12 10:15 | Physical Therapy Daily Note ---
PT Daily Note-Current Subjective Patient in wheelchair at bedside pre tx, agrees to PT, has no pain at rest. Already has prosthetic leg on. Appearance Patient in recliner post tx with nurse call, phone, tray, all needs met. Has OT right after PT. Mental Status Patient Orientation: Person, Place, Situation Attachments: Oxygen Transfers Therapy Code Descriptions/Definitions Functional [place] Measure: 0=Not Assessed/NA 4=Minimal Assistance 1=Total Assistance 5=Supervision or Setup 2=Maximal Assistance 6=Modified [place] 3=Moderate Assistance 7=Complete [place] Therapy Quality Codes: 6 Independent with activity with or without an assistive device 5 Patient requires set up or clean up by helper. Patient completes activity by themselves 4 Supervision or touching assist (CGA). Teague provide cues , steadying assist 3 The helper provides less than half the effort to complete the activity 2 The helper provides more than half the effort to complete the activity 1 Dependent. The helper does all the effort to complete an activity 7 Patient refused to complete or attempt activity 9 The patient did not perform the activity before the current illness or injury 88 Not attempted due to Medical conditions or safety concerns Transfers (B, C, W/C) (FIM): 5 Sit to/from Stand: 5 Bed to/from Chair: 5 Gait Training Gait (FIM): 1 Distance: 20'x2 Walking 10ft/uneven surface-QC: 4 Gait Level of Assist: 4 Gait Assistive Device: FWW unsteady but no LOB, careful guarding Wheelchair Training Does the Pt Use a Wheelchair?: Yes Wheelchair (FIM): 5 Distance: 150'x2 Wheelchair Level of Assist: 5 Type of Wheelchair: Manual Stair Training Stairs (FIM): 1 #of Steps: 1 1 Step (curb) (QC): 4 Stairs: Pattern: Step to Level of Assist: 4 CGA, cues for foot placement Exercises Seated Therapy Exercises: Long arc quads, Hip flexion Seated Reps: 20 Standing: Hip Abduction, Heel/toe raises, Marching, Mini squats Standing Reps: 20 NuStep Minutes: 10 NuStep Workload: 5 Treatments ambulation, stairs, LE exercise Assessment Current Status: Fair Progress Patient improving with ambulation but was very fatigued at the end of therapy even with several rest breaks PT Short Term Goals Short Term Goals Time Frame: May 18, 2019 Transfers (B,C,W/C) (FIM): 5 Gait (FIM): 2 Distance (FIM): 6=457-03 ft Gait Distance Comment: 50 ft Gait Level of Assist: 4 Gait Assistive Device: FWW Wheelchair Distance: 150 ft PT Ribbon Lap Machine Tender Goals Ribbon Lap Machine Tender Goals PT Long-Term Goals Time Frame: May 29, 2019 Transfers (B,C,W/C) (FIM): 6 Sit to Lying (QC): 6 Lying-Sitting on Side/Bed(QC): 6 Sit to Stand (QC): 6 Rollin Roll Left to Right (QC): 6 Chair/Ubg-ch-Vzypi Xfer(QC): 6 Car Transfer (QC): 5 Does the Patient Walk: Yes Gait (FIM): 5 (household distance) Gait distance (FIM): 7=317-28 ft Distance: 50 ft Walk 10 feet (QC): 6 Walk 10ft-Uneven Surface(QC): 5 Walk 50ft with 2 Turns (QC): 6 Walk 150 ft (QC): 9 Gait Assistive Device: FWW Does the Pt use WC or Scooter?: Yes Wheelchair (FIM): 6 Wheelchair distance (FIM): 3=150 ft Wheel 50 feet with 2 turns (QC: 6 Stairs (FIM): 2 # of Steps: 4 1 Step (curb) (QC): 4 4 Steps (QC): 4 12 Steps (QC): 9 Picking up an Object (QC): 88 PT Plan Problem List Problem List: Activity Tolerance, Functional Strength, Safety, Balance, Gait, Transfer, Bed Mobility, ROM Treatment/Plan Treatment Plan: Continue Plan of Care Treatment Plan: Bed Mobility, Education, Functional Activity [place], Functional Strength, Group Therapy, Gait, Safety, Therapeutic Exercise, Transfers Treatment Duration: May 29, 2019 Frequency: At least 5 of 7 days/Wk (IRF) Estimated Hrs Per Day: 1.5 hours per day Patient and/or Family Agrees t: Yes Safety Risks/Education Patient Education: Gait Training, Transfer Techniques, Steps, Correct Positioning, Safety Issues Teaching Recipient: Patient Teaching Methods: Demonstration, Discussion Response to Teaching: Reinforcement Needed Time/GCodes Time In: 0915 Time Out: 1015 Total Billed Treatment Time: 60 Total Billed Treatment 1 visit EX 30' GT 20' FA 10' NICOLE ESCUDERO PT May 12, 2019 10:14
[2019-05-12] MEDS: ENOXAPARIN 40 MG/0.4 ML (LOVENOX) SYR SC SCH (11:51)
--- NOTE | 2019-05-12 13:00 | NUR ---
SEVERAL LOOSE STOOLS. NO OTHER COMPLAINTS.
--- NOTE | 2019-05-12 13:25 | Physical Therapy Daily Note ---
PT Daily Note-Current Subjective Patient in wheelchair at bedside pre tx, agrees to PT,no pain at rest. Patient states he doesn't really want to go out of his room at this time because he his having frequent bowel movements and is afraid he will need to go again quickly. He agrees to exercises in his room. Appearance Patient in wheelchair at bedside post tx with nurse call, phone, tray, all needs met. Mental Status Patient Orientation: Person, Place, Situation Attachments: Oxygen Transfers Therapy Code Descriptions/Definitions Functional [place] Measure: 0=Not Assessed/NA 4=Minimal Assistance 1=Total Assistance 5=Supervision or Setup 2=Maximal Assistance 6=Modified [place] 3=Moderate Assistance 7=Complete [place] Therapy Quality Codes: 6 Independent with activity with or without an assistive device 5 Patient requires set up or clean up by helper. Patient completes activity by themselves 4 Supervision or touching assist (CGA). [place] provide cues , steadying assist 3 The helper provides less than half the effort to complete the activity 2 The helper provides more than half the effort to complete the activity 1 Dependent. The helper does all the effort to complete an activity 7 Patient refused to complete or attempt activity 9 The patient did not perform the activity before the current illness or injury 88 Not attempted due to Medical conditions or safety concerns Sit to/from Stand: 5 Exercises Seated Therapy Exercises: Long arc quads, Hip abd/add Seated Reps: 20 Standing: Hip Abduction, Heel/toe raises (only left leg), Marching, Mini squats Standing Reps: 20 LAQ alternating for 5 min Treatments LE exercise Assessment Current Status: Fair Progress no SOB during treatment, occasional rest breaks PT Short Term Goals Short Term Goals Time Frame: May 18, 2019 Transfers (B,C,W/C) (FIM): 5 Gait (FIM): 2 Distance (FIM): 0=261-96 ft Gait Distance Comment: 50 ft Gait Level of Assist: 4 Gait Assistive Device: FWW Wheelchair Distance: 150'x2 PT Serger Goals Usp Goals PT Serger Goals Time Frame: May 29, 2019 Transfers (B,C,W/C) (FIM): 6 Sit to Lying (QC): 6 Lying-Sitting on Side/Bed(QC): 6 Sit to Stand (QC): 6 Rollin Roll Left to Right (QC): 6 Chair/Ksx-ln-Qpxwi Xfer(QC): 6 Car Transfer (QC): 5 Does the Patient Walk: Yes Gait (FIM): 5 (household distance) Gait distance (FIM): 9=680-94 ft Distance: 50 ft Walk 10 feet (QC): 6 Walk 10ft-Uneven Surface(QC): 5 Walk 50ft with 2 Turns (QC): 6 Walk 150 ft (QC): 9 Gait Assistive Device: FWW Does the Pt use WC or Scooter?: Yes Wheelchair (FIM): 6 Wheelchair distance (FIM): 3=150 ft Wheel 50 feet with 2 turns (QC: 6 Stairs (FIM): 2 # of Steps: 4 1 Step (curb) (QC): 4 4 Steps (QC): 4 12 Steps (QC): 9 Picking up an Object (QC): 88 PT Plan Problem List Problem List: Activity Tolerance, Functional Strength, Safety, Balance, Gait, Transfer, Bed Mobility, ROM Treatment/Plan Treatment Plan: Continue Plan of Care Treatment Plan: Bed Mobility, Education, Functional Activity Katlyn, Functional Strength, Group Therapy, Gait, Safety, Therapeutic Exercise, Transfers Treatment Duration: May 29, 2019 Frequency: At least 5 of 7 days/Wk (IRF) Estimated Hrs Per Day: 1.5 hours per day Patient and/or Family Agrees t: Yes Safety Risks/Education Patient Education: Correct Positioning, Safety Issues Teaching Recipient: Patient Teaching Methods: Demonstration, Discussion Response to Teaching: Reinforcement Needed Time/GCodes Time In: 1300 Time Out: 1330 Total Billed Treatment Time: 30 Total Billed Treatment 1 visit EX 30' NICOLE ESCUDERO PT May 12, 2019 13:25
--- NOTE | 2019-05-12 15:09 | Occupational Ther Daily Note ---
OT Current Status-Daily Note Subjective pt agreed to OT TX session with focus on increasing independence with AE, functional transfers, energy conservation, and UE strength fo daily activities. Mental Status/Objective Therapy Code Descriptions/Definitions Functional [place] Measure: 0=Not Assessed/NA 4=Minimal Assistance 1=Total Assistance 5=Supervision or Setup 2=Maximal Assistance 6=Modified [place] 3=Moderate Assistance 7=Complete [place] ADL-Treatment Therapy Code Descriptions/Definitions Functional [place] Measure: 0=Not Assessed/NA 4=Minimal Assistance 1=Total Assistance 5=Supervision or Setup 2=Maximal Assistance 6=Modified [place] 3=Moderate Assistance 7=Complete [place] Therapy Quality Codes: 6 Independent with activity with or without an assistive device 5 Patient requires set up or clean up by helper. Patient completes activity by themselves 4 Supervision or touching assist (CGA). [place] provide cues , steadying assist 3 The helper provides less than half the effort to complete the activity 2 The helper provides more than half the effort to complete the activity 1 Dependent. The helper does all the effort to complete an activity 7 Patient refused to complete or attempt activity 9 The patient did not perform the activity before the current illness or injury 88 Not attempted due to Medical conditions or safety concerns Transfers (B, C, W/C) (FIM): 5 (w/c to chair SBA for safety/ balnce ) Other Treatment pt transfers from recliner chair to w/c with SBA using no AE (stand pivot transfer). pt self propelled w/c to tx gym and completed UBE 15 minutes forward with MOD resistance. pt then provided energy conservation handout of the "4 P's" hand out read to pt secondary to pt not having glasses here. pt was able to name several example of ways to incorporate the 4 P's into daily living. HEP develop to increase pt UE strength for daily activities. pt demo ability to perform UE ex using 3# dumbbells 15 X2 shoulder flex/ EXT, ADD/ ABD, elbow FLEX, EXT. pt required rest break between each set to increase activity tolerance. pt educatio n on use of set off blocker. pt demo ability to cloth picker 18 items from floor with use of set off blocker with supervision for safety / balance. pt then self propelled back to room with Setup secondary to requiring assist with O2 line management. all needs met at end od session. O2 remained above 93% during session wearing 2L NC Education OT Patient Education: Energy conservation, Exercise program, Home exercise program, Progress toward Goal/Update tx plan, Purpose of tx/functional activiti es, Use of adapted equipment Teaching Recipient: Patient Teaching Methods: Demonstration, Discussion Response to Teaching: Verbalize Understanding, Return Demonstration OT Short Term Goals Short Term Goals Grooming(FIM): 5 Bathing(FIM): 5 Upper Body Dressing(FIM): 5 Lower Body Dressing(FIM): 5 Toileting(FIM): 5 Transfers (B,C,W/C) (FIM): 5 Toilet/Commode Transfer(FIM): 5 Shower Transfer(FIM): 5 1=Demonstrate adherence to instructed precautions during ADL tasks. 2=Patient will verbalize/demonstrate understanding of assistive devices/modifications for ADL. 3=Patient will improve strength/tolerance for activity to enable patient to perform ADL's. OT Fpc Goals Side Piece Coverer Goals Time Frame: Jun 08, 2019 Eating (FIM): 6 Eating (QC): 6 Groomin Oral Hygiene (QC): 6 Bathing(FIM): 6 Bathing Location: L Arm, R Arm, L Upper Leg, R Upper Leg, L Lower Leg (including foot), R Lower Leg (including foot), Chest, Abdomen, Buttocks, Perineal Area Shower/Bathe Self (QC): 6 Upper Body Dressing(FIM): 6 Upper Body Dressing (QC): 6 Lower Body Dressing(FIM): 6 Lower Body Dressing (QC): 6 On/Off Footwear (QC): 6 Toileting(FIM): 6 Toileting Hygiene (QC): 6 Transfers (B,C,W/C) (FIM): 6 Toilet/Commode Transfer(FIM): 6 Toilet/Commode Transfer (QC): 6 Shower Transfer(FIM): 6 Additional Goals: 1-Demonstrate ADL Tasks, 2-Verbalize Understanding, 3- ImproveStrength/Katlyn 1=Demonstrate adherence to instructed precautions during ADL tasks. 2=Patient will verbalize/demonstrate understanding of assistive devices/modifications for ADL. 3=Patient will improve strength/tolerance for activity to enable patient to perform ADL's. OT Education/Plan Problem List/Assessment pt presents with functional limitations affecting areas of ADLs and functional transfers with the above mention deficits. pt would benefit from skilled OT services to increase independence with ADLS/ functional transfers and for safe transition to home. Discharge Recommendations Plan/Recommendations: Continue POC Treatment Plan/Plan of Care Treatment,Training & Education: Yes Patient would benefit from OT for education, treatment and training to promote independence in ADL's, mobility, safety and/or upper extremity function for ADL's. Plan of Care: ADL Retraining, Caregiver Training, Concurrent Therapy, Functional Mobility, Group Exercise/Act as Ind, UE Funct Exercise/Act Treatment Duration: Jun 08, 2019 Frequency: At least 5 of 7 days/Wk (IRF) Estimated Hrs Per Day: 1 hour per day (60-90 minutes per day ) Agreement: Yes Rehab Potential: Good Time/GCodes Start Time: 10:15 Stop Time: 11:45 Billed Treatment Time EX 30 minutes (2 units FA (60 minutes, 4 units PAWAN DIAZ OT May 12, 2019 15:09
[2019-05-12] MEDS: glipiZIDE 5 MG (GLUCOTROL) TAB PO SCH (16:56)
--- NOTE | 2019-05-12 17:00 | NUR ---
REQUESTING SOLID FOOD. DR. GREENBERG NOTIFIED AND DIET ADVANCED.
[2019-05-12 17:59] VITALS: BP 121/55
[2019-05-12] MEDS: ATORVASTATIN 10 MG (LIPITOR) TABLET PO SCH (21:00)
[2019-05-12] MEDS: amLODIPine 10 MG (NORVASC) TAB PO SCH (21:00)
[2019-05-12] MEDS: SERTRALINE 50 MG (ZOLOFT) TABLET PO SCH (21:01)
[2019-05-12] MEDS: TAMSULOSIN 0.4 MG (FLOMAX) CAP PO SCH (21:01)
[2019-05-12] MEDS: ATENOLOL 50 MG (TENORMIN) TAB PO SCH (21:01)
[2019-05-13 05:04] VITALS: BP 169/63
[2019-05-13] MEDS: inSUlin ASPART (NovoLOG) 1 UNIT/0.01 ML (CHARGE PER UNIT) SC SCH ×4 (06:01→20:15)
[2019-05-13] MEDS: metFORMIN 500 MG (GLUCOPHAGE) TAB PO SCH ×2 (06:01→17:21)
[2019-05-13] MEDS: GABAPENTIN 300 MG (NEURONTIN) CAP PO SCH ×2 (08:47→20:49)
[2019-05-13] MEDS: FINASTERIDE (PROSCAR) 5 MG TAB PO SCH (08:47)
[2019-05-13] MEDS: ENOXAPARIN 40 MG/0.4 ML (LOVENOX) SYR SC SCH (08:47)
--- NOTE | 2019-05-13 10:39 | PM&R Progress Note ---
Subjective HPI/CC On Admission Date Seen by Provider: May 13, 2019 Time Seen by Provider: 10:45 Chief complaint: Debility HPI: This is an 83yoWM clinic Pt of Dr. Gallagher who underwent significant small bowel resection from acute ischemia performed by Dr. Henderson who regained stability but was unable to return directly back home to live independently with his prior to intensive rehab training. He just had a BM today and we have ordered for the catheter to be discontinued along with the IV fluid and he is able to eat a regular diet. Dr. 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 Overall he is in agreement with the plan and he will be transferred to inpatient rehab. Subjective/Events-last exam Experiencing diarrhea so will initiate Questran 1 scoop twice daily in addition to Imodium C. difficile will be checked but it does not appear to be the case Weaning oxygen since he does not use it at home No catheter required since he is emptying his bladder well Denies any significant pain Slept pretty well last night Conferred with RN Reviewed therapy notes Working to return to independent status Review of Systems General: Fatigue Gastrointestinal: Diarrhea Objective Exam Vital Signs Vital Signs Date Time Temp Pulse Resp B/P (MAP) Pulse Ox O2 Delivery O2 Flow Rate FiO2 05/13/19 18:50 90 Room Air 05/13/19 17:05 98.9 70 20 137/53 (81) 05/13/19 08:25 2.00 Capillary Refill : Less Than 3 Seconds General Appearance: No Apparent Distress, WD/WN, Chronically ill, Obese HEENT: PERRL/EOMI, Normal ENT Inspection, Pharynx Normal, Moist Mucous Membranes Neck: Full Range of Motion, Normal Inspection, Non Tender, Supple Respiratory: Chest Non Tender, Lungs Clear, No Accessory Muscle Use, No Respiratory Distress, Decreased Breath Sounds Cardiovascular: Regular Rate, Rhythm, No Edema, No Gallop, No JVD, No Murmur Gastrointestinal: Normal Bowel Sounds, No Organomegaly, No Pulsatile Mass, Soft, Tenderness (generalized) Back: Normal Inspection, No CVA Tenderness, No Vertebral Tenderness Extremity: Normal Capillary Refill, Normal Inspection, Normal Range of Motion, Non Tender, No Calf Tenderness, No Pedal Edema Neurologic/Psychiatric: Alert, Oriented x3, No Motor/Sensory Deficits, Normal Mood/Affect, surface boss II-XII Norm as Tested, Motor Weakness (subtle weakness all extremities), Other (right AKA stump no ulcerations) Skin: Normal Color, Warm/Dry Lymphatic: No Adenopathy Results/Procedures Lab Patient resulted labs reviewed. FIM Transfers Therapy Code Descriptions/Definitions Functional [place] Measure: 0=Not Assessed/NA 4=Minimal Assistance 1=Total Assistance 5=Supervision or Setup 2=Maximal Assistance 6=Modified [place] 3=Moderate Assistance 7=Complete [place] Therapy Quality Codes: 6 Independent with activity with or without an assistive device 5 Patient requires set up or clean up by helper. Patient completes activity by themselves 4 Supervision or touching assist (CGA). [place] provide cues , steadying assist 3 The helper provides less than half the effort to complete the activity 2 The helper provides more than half the effort to complete the activity 1 Dependent. The helper does all the effort to complete an activity 7 Patient refused to complete or attempt activity 9 The patient did not perform the activity before the current illness or injury 88 Not attempted due to Medical conditions or safety concerns Transfers (B, C, W/C) (FIM): 5 (w/c to chair SBA for safety/ balnce ) Rollin Roll Left to Right (QC): 4 Supine to/from Sit: 4 Sit to/from Stand: 5 Sit to Lying (QC): 4 Sit to Stand (QC): 3 Chair/Mbu-ou-Hqbim Xfer(QC): 4 Bed to/from Chair: 5 Car Transfer (QC): 4 Gait Training Does the Patient Walk?: Yes Gait (FIM): 1 Distance (FIM): 1=up to 49 ft Distance: 20'x2 Walk 10 feet (QC): 4 Walk 50 ft with 2 Turns(QC): 88 (pt fatigued and unable to walk this distance this date. ) Walk 150 ft (QC): 88 Walking 10ft/uneven surface-QC: 4 Gait Level of Assist: 4 Gait Persons Needed: 1 Gait Assistive Device: FWW Wheelchair Training Does the Pt Use a Wheelchair?: Yes Wheelchair (FIM): 5 Wheelchair Distance: 3=150 ft Distance: 150'x2 Wheelchair Level of Assist: 5 Wheel 50 ft with 2 turns (QC): 5 Wheel 150 ft (QC): 5 Type of Wheelchair: Manual Stair Training Stairs (FIM): 1 #of Steps: 1 1 Step (curb) (QC): 4 4 Steps (QC): 88 12 Steps (QC): 88 Stairs: Pattern: Step to Level of Assist: 4 Balance Picking up an Object (QC): 88 (unsafe to attempt) Mental Status/Objective Comprehension: 7 Expression: 7 Social Interaction: 7 Problem Solvin Memory: 7 ADL-Treatment Feedin (set up ) Eating (QC): 5 Groomin (CGA while standing at sink for safety/ balnace. cuing for proper hand placement ) Oral Hygiene (QC): 4 Bathin (CGA for safety/ balnac. cuing for energy conservation during task.noted SOB ) Bathing Location: L Arm, R Arm, L Upper Leg, R Upper Leg, L Lower Leg (including foot), Chest, Abdomen, Buttocks, Perineal Area Shower/Bathe Self (QC): 4 Upper Extremity Dressin Upper Body Dressing (QC): 4 Lower Extremity Dressin (pt reuqired assist with threading [place] legs into brief and pants, pt reuqired assi with doffing left shoe, and assist with pulling up pants. pt did demo ability to ty prosthetic leg ) Lower Body Dressing (QC): 1 On/Off Footwear (QC): 3 Toiletin (pt reuqired assist with pulling up/ down pants. 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 (4) Smoker Status: Chronic (5) COPD (chronic obstructive pulmonary disease) Status: Chronic Qualifiers: COPD type: unspecified COPD Qualified Codes: J44.9 - Chronic obstructive pulmonary disease, unspecified (6) Ischemic bowel disease Status: Acute (7) Right-sided abdominal pain of unknown cause Status: Resolved Resolution Date/Time: 05/10/19 @ 11:51 (8) Intractable nausea and vomiting Status: Resolved Qualifiers: Vomiting type: unspecified Qualified Codes: R11.2 - Nausea with vomiting, unspecified Resolution Date/Time: 05/10/19 @ 11:51 (9) Abdominal pain Status: Acute Qualifiers: Abdominal location: generalized Qualified Codes: R10.84 - Generalized abdominal pain (10) Anemia Status: Chronic Qualifiers: Anemia type: unspecified type Qualified Codes: D64.9 - Anemia, unspecified (11) Diabetes mellitus Status: Chronic Qualifiers: Diabetes mellitus type: type 2 Diabetes mellitus termite renewal inspector insulin use: without termite renewal inspector use Diabetes mellitus complication status: with other specified complication Qualified Codes: E11.69 - Type 2 diabetes mellitus with other specified complication 12. Diarrhea- start Imodium and Questran and check C diff Plan: Check c diff Questran Imodium Fall risk Monitor for urinary retention (1) Debility (2) Nausea and vomiting (3) COPD (chronic obstructive pulmonary disease) (4) Anemia (5) Renal insufficiency (6) Wheezing (7) Hypoxia (8) Abdominal pain (9) Ileus following gastrointestinal surgery (10) S/P partial resection of colon (11) Above knee amputation of right lower extremity (12) Smoker AGATHA PAZ DO May 13, 2019 10:39
--- NOTE | 2019-05-13 10:40 | Individualized Plan of Care ---
Individualized Plan of Care Rehab Nursing IPOC Order Admission Date May 11, 2019 at 12:45 Current Orders Orders Admission Order(Inpt,Obs,Sdc) (05/11/19 10:21) Vital Signs: Per Unit Policy ( 08,16,00 (05/11/19 10:21) Game Preserve Manager-Inpt Rehab Con (05/11/19 10:21) Rehab Nursing Orders-Ipoc (05/11/19 10:21) Physical Therapy Rehab Orders (05/11/19 10:21) Occupational Therapy Rehab Ord (05/11/19 10:21) Speech Therapy Rehab Orders (05/11/19 10:21) Intake & Output 06,14,22 (05/11/19 10:21) Precautions (Aru) (05/11/19 10:21) Weekly Weight (Lbs) WEEK (05/11/19 10:21) Rehab-Intensity Of Therapy (05/11/19 10:21) Initiate Admission Nursing Pro .admission (05/11/19 10:21) Acetaminophen Tablet (Tylenol Tablet) (05/11/19 10:30) Calcium Carbonate Chew Tablet (Antacid C (05/11/19 10:30) Diphenhydramine Tablet (Benadryl Tablet) (05/11/19 10:30) Docusate Sodium Capsule (Colace Capsule) (05/11/19 10:30) Melatonin Tablet (Melatonin Tablet) (05/11/19 10:30) Ondansetron Injection (Zofran Injectio (05/11/19 10:30) Ondansetron Oral Dissolve Tab (Zofran (05/11/19 10:30) Admission Arrival Bed Request (05/11/19 12:45) Accucheck Achs ACHS (05/11/19 13:46) Initiate Admission Nursing Pro .admission (05/11/19 13:46) Oxygen-Administer 07,19 (05/11/19 13:46) Sequential Compression Device 08,20 (05/11/19 13:46) Straight Cath (Urinary) (05/11/19 13:46) Dys2 Mechanically Altered (05/11/19 Dinner) Albuterol/Ipra Inhalation Soln (Duoneb I (05/11/19 15:00) Atenolol Tablet (Tenormin Tablet) (05/11/19 21:00) Atorvastatin Tablet (Lipitor Tablet) (05/11/19 21:00) Brimonidine 0.2% Ophth Soln (Alphagan (05/11/19 14:00) Finasteride Tablet (Proscar Tablet) (05/12/19 09:00) Gabapentin Capsule/Tablet (Neurontin Cap (05/11/19 21:00) Hydrocodone/Apap 5/325 Tablet (Lortab 5 (05/11/19 14:00) Promethazine Injection (Phenergan Injec (05/11/19 14:00) Sertraline Tablet (Zoloft Tablet) (05/11/19 21:00) Tamsulosin Capsule (Flomax Capsule) (05/11/19 21:00) Ondansetron Injection (Zofran Injectio (05/11/19 14:00) Amlodipine Tablet (Norvasc Tablet) (05/11/19 21:00) Glipizide Tablet (Glucotrol Tablet) (05/11/19 17:00) Insulin Aspart (Novolog) (Novolog (Charg (05/11/19 16:00) Metformin Tablet (Glucophage Tablet) (05/11/19 17:00) Morphine Injection (Morphine Injection (05/11/19 14:00) Consult Hospitalist (05/11/19 13:46) Consult Physician (05/11/19 13:46) Consult Pulmonology (05/11/19 13:46) Rt Request For Service (05/11/19 13:46) Patient Visit (05/11/19 ) Pt Eval Moderate Complexity (05/11/19 ) Gait Training, Ea 15 Min (05/11/19 ) Functional Activities, Ea 15 (05/11/19 ) Patient Visit (05/11/19 ) Speech Sound Lang Comp (05/11/19 ) Sequential Compression Device 08,20 (05/11/19 15:47) Dvt/Vte Risk - Notifiy Physici 08 (05/11/19 15:47) Albuterol/Ipra Inhalation Soln (Duoneb I (05/12/19 14:00) Albuterol/Ipra Inhalation Soln (Duoneb I (05/12/19 08:45) Svn Small Volume Nebulizer (05/12/19 08:41) Enoxaparin Injection (Lovenox Injection) (05/12/19 09:00) Patient Visit (05/12/19 ) Exercise Therap, Ea 15 Min (05/12/19 ) Gait Training, Ea 15 Min (05/12/19 ) Functional Activities, Ea 15 (05/12/19 ) Patient Visit (05/12/19 ) Exercise Therap, Ea 15 Min (05/12/19 ) Cho 60g/M 1snack (16-2000 [place]) (05/13/19 Breakfast) C Difficile Ag + Toxin A/B. (05/13/19 11:09) Isolation Central Supply Req (05/13/19 11:09) Loperamide Capsule (Imodium Capsule) (05/13/19 11:15) Cholestyramine Lite Powder (Questran Lit (05/13/19 17:00) Patient Visit (05/13/19 ) Gait Training, Ea 15 Min (05/13/19 ) Rehab Nursing Orders: Ongoing Assess. of Cognitive Status, Ongoing Assess. of Function Status, Bladder Management, Bladder Scan, Bowel Management, Disease Management & Educaiton, DVT Prophylaxis, Fall Prevention, Fluid/Electro lyte/Nutrition Mgmt, Medication Management & Education, Management of Risks & Complications, Nutrition Management, Pain Management, Patient/Family Support, Safety Management Intensity of Therapy to be met Patient to be seen: Min.3h per day/5 of 7d PT IPOC Problem List: Activity Tolerance, Functional Strength, Safety, Balance, Gait, Transfer, Bed Mobility, ROM Treatment Plan: Continue Plan of Care Bed Mobility, Education, Functional Activity Katlyn, Functional Strength, Group Therapy, Gait, Safety, Therapeutic Exercise, Transfers Treatment Duration: May 29, 2019 Frequency: At least 5 of 7 days/Wk (IRF) Estimated Hrs Per Day: 1.5 hours per day OT IPOC Problems: Decreased Activ Tolerance, Decreased Safety Aware, Decreased UE Strength, Impaired Bed Mobility, Impaired Funct Balance, Impaired I ADL's, Impaired Self-Care Skills OT Treatment, Training and Edu: Yes OT Problems pt presents with functional limitations affecting areas of ADLs and functional transfers with the above mention deficits. pt would benefit from skilled OT services to increase independence with ADLS/ functional transfers and for safe transition to home. Plan of Care: ADL Retraining, Caregiver Training, Concurrent Therapy, Functional Mobility, Group Exercise/Act as Ind, UE Funct Exercise/Act Treatment Duration: Jun 08, 2019 Frequency: At least 5 of 7 days/Wk (IRF) Estimated Hrs Per Day: 1 hour per day (60-90 minutes per day ) ST IPOC Speech Therapy Treatment Plan: Discontinue ST Treatment Duration: May 11, 2019 Frequency: 1 time per week Estimated Hrs Per Day: .25 hour per day Game Preserve Manager/Case Mgmt Game Preserve Manager/Case Managemen: Discharge Planning Dietitian/Undercollar Baster Dietitian/Undercollar Baster to monitor nutritional status and make changes and/or recommendations as needed and work with speech pathology on dietary upgrades as the occur. Physician IPOC Medical Issues being managed closely and that require the 24 hour availability of a physician: Recent partial small bowel obstruction resulting in altered bowel habits with increased risk of diarrhea and volume depletion with electrolyte abnormalities Medical Issues: Bowel/Bladder Function, DVT Prophylaxis, Falls Precautions, Fluid/Electrolyte/Nutrition Balance, Pain Management Brief Synthesis of Preadmission Screen, Post-Admission Evaluation, and Therapy Evaluations: Physical therapy will work on safety management and ambulation with chronic right [id number] amputation Occupational Therapy will increase ADL independence including bowel regimen management Medical Prognosis: Good Anticipated Length of Stay: 7 days AGATHA PAZ DO May 13, 2019 10:40
--- NOTE | 2019-05-13 10:42 | Progress Note-Urology ---
Progress Note-Urology Progress Notes/Assess & Plan Progress/Assessment & Plan SAYS VOIDING AND EMPTYING WELL. COMPLAINS OF LOOSE TOOLS. WILL CHECK CULTURES AND C.DIFF TEST Final Diagnosis URINE RETENTION DORA MARINO MD May 13, 2019 10:42
[2019-05-13] MEDS ORDERED: LOPERAMIDE 2 MG (IMODIUM) TABLET PO PRN (11:15)
--- NOTE | 2019-05-13 12:00 | Physical Therapy Daily Note ---
PT Daily Note-Current Subjective Pt. sitting in w/c, says he has had diarrhea all day, agrees to ambulate after therapist encouragement but states "I want to stay close to the bathroom." Transfers Therapy Code Descriptions/Definitions Functional [place] Measure: 0=Not Assessed/NA 4=Minimal Assistance 1=Total Assistance 5=Supervision or Setup 2=Maximal Assistance 6=Modified [place] 3=Moderate Assistance 7=Complete [place] Therapy Quality Codes: 6 Independent with activity with or without an assistive device 5 Patient requires set up or clean up by helper. Patient completes activity by themselves 4 Supervision or touching assist (CGA). [place] provide cues , steadying assist 3 The helper provides less than half the effort to complete the activity 2 The helper provides more than half the effort to complete the activity 1 Dependent. The helper does all the effort to complete an activity 7 Patient refused to complete or attempt activity 9 The patient did not perform the activity before the current illness or injury 88 Not attempted due to Medical conditions or safety concerns Transfers (B, C, W/C) (FIM): 4 Sit to Stand (QC): 4 Gait Training Does the Patient Walk?: Yes Gait (FIM): 1 Distance (FIM): 1=up to 49 ft Distance: x 20 ft, x 25 ft, x 25 ft Gait Level of Assist: 4 Gait Persons Needed: 1 Gait Assistive Device: FWW Exercises Seated Therapy Exercises: Ankle pumps (L LE), Long arc quads (L LE) Seated Reps: 15 Treatments gait Assessment Current Status: Good Progress Pt. needed cues to stay close to walker for had 1 slight balance deficit while turning requiring min A from therapist. Pt. did not wish to increase ambulation distance due to c/o diarrhea. Pt. returned to w/c in room, all needs met. PT Short Term Goals Short Term Goals Time Frame: May 18, 2019 Transfers (B,C,W/C) (FIM): 5 Gait (FIM): 2 Distance (FIM): 1=113-38 ft Gait Distance Comment: 50 ft Gait Level of Assist: 4 Gait Assistive Device: FWW Wheelchair Distance: 150'x2 PT [facility] Goals Network Account Manager Goals PT Network Account Manager Goals Time Frame: May 29, 2019 Transfers (B,C,W/C) (FIM): 6 Sit to Lying (QC): 6 Lying-Sitting on Side/Bed(QC): 6 Sit to Stand (QC): 6 Rollin Roll Left to Right (QC): 6 Chair/Qra-cm-Pufjh Xfer(QC): 6 Car Transfer (QC): 5 Does the Patient Walk: Yes Gait (FIM): 5 (household distance) Gait distance (FIM): 3=198-42 ft Distance: 50 ft Walk 10 feet (QC): 6 Walk 10ft-Uneven Surface(QC): 5 Walk 50ft with 2 Turns (QC): 6 Walk 150 ft (QC): 9 Gait Assistive Device: FWW Does the Pt use WC or Scooter?: Yes Wheelchair (FIM): 6 Wheelchair distance (FIM): 3=150 ft Wheel 50 feet with 2 turns (QC: 6 Stairs (FIM): 2 # of Steps: 4 1 Step (curb) (QC): 4 4 Steps (QC): 4 12 Steps (QC): 9 Picking up an Object (QC): 88 PT Plan Treatment/Plan Treatment Plan: Continue Plan of Care Treatment Plan: Bed Mobility, Education, Functional Activity [place], Functional Strength, Group Therapy, Gait, Safety, Therapeutic Exercise, Transfers Treatment Duration: May 29, 2019 Frequency: At least 5 of 7 days/Wk (IRF) Estimated Hrs Per Day: 1.5 hours per day Patient and/or Family Agrees t: Yes Time/GCodes Time In: 1140 Time Out: 1152 Total Billed Treatment Time: 12 Total Billed Treatment 1, GT 12' MIQUEL BELLO PT May 13, 2019 12:00
[2019-05-13] MEDS: RT-ALBUTEROL/IPRATROPIUM 3 ML (DUONEB) VIAL INH SCH ×3 (14:55→18:50)
[2019-05-13 17:05] VITALS: BP 137/53
[2019-05-13] MEDS: CHOLESTYRAMINE 4 GM (QUESTRAN LITE, PREVALITE) PKT PO SCH ×2 (17:21→17:50)
[2019-05-13] MEDS: glipiZIDE 5 MG (GLUCOTROL) TAB PO SCH (17:22)
[2019-05-13] MEDS: SERTRALINE 50 MG (ZOLOFT) TABLET PO SCH (20:49)
[2019-05-13] MEDS: ATORVASTATIN 10 MG (LIPITOR) TABLET PO SCH (20:49)
[2019-05-13] MEDS: amLODIPine 10 MG (NORVASC) TAB PO SCH (20:49)
[2019-05-13] MEDS: TAMSULOSIN 0.4 MG (FLOMAX) CAP PO SCH (20:49)
[2019-05-13] MEDS: ATENOLOL 50 MG (TENORMIN) TAB PO SCH (20:49)
[2019-05-14] MEDS: HYDROcodone/APAP 5 MG/325 MG (LORTAB) TAB PO PRN (02:39)
[2019-05-14] MEDS: inSUlin ASPART (NovoLOG) 1 UNIT/0.01 ML (CHARGE PER UNIT) SC SCH ×4 (05:26→21:07)
[2019-05-14 05:38] VITALS: BP 131/52
[2019-05-14] MEDS: metFORMIN 500 MG (GLUCOPHAGE) TAB PO SCH ×2 (06:19→17:20)
[2019-05-14] MEDS: CHOLESTYRAMINE 4 GM (QUESTRAN LITE, PREVALITE) PKT PO SCH ×2 (06:54→18:44)
[2019-05-14] MEDS: FINASTERIDE (PROSCAR) 5 MG TAB PO SCH (08:14)
[2019-05-14] MEDS: GABAPENTIN 300 MG (NEURONTIN) CAP PO SCH ×2 (08:14→21:01)
[2019-05-14] MEDS: ENOXAPARIN 40 MG/0.4 ML (LOVENOX) SYR SC SCH (08:14)
[2019-05-14] MEDS: RT-ALBUTEROL/IPRATROPIUM 3 ML (DUONEB) VIAL INH SCH ×4 (08:36→19:34)
--- NOTE | 2019-05-14 10:05 | Progress Note-Urology ---
Progress Note-Urology Progress Notes/Assess & Plan Progress/Assessment & Plan C.DIFF NEGATIVE Final Diagnosis RETENTION DORA MARINO MD May 14, 2019 10:05
--- NOTE | 2019-05-14 10:52 | PM&R Progress Note ---
Subjective HPI/CC On Admission Date Seen by Provider: May 14, 2019 Time Seen by Provider: 11:00 Chief complaint: Debility HPI: This is an 83yoWM clinic Pt of Dr. Gallagher who underwent significant small bowel resection from acute ischemia performed by Dr. Henderson who regained stability but was unable to return directly back home to live independently with his prior to intensive rehab training. He just had a BM today and we have ordered for the catheter to be discontinued along with the IV fluid and he is able to eat a regular diet. Dr. 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 Overall he is in agreement with the plan and he will be transferred to inpatient rehab. Subjective/Events-last exam Questran 1 scoop twice daily in addition to Imodium has really helped C. difficile was negative as suspected Weaning oxygen since he does not use it at home and that is working well for the patient today No catheter required since he is emptying his bladder well. Some incontinence noted at times Denies any significant pain Slept pretty well last night Conferred with RN Reviewed therapy notes Working to return to independent status Objective Exam Vital Signs Vital Signs Date Time Temp Pulse Resp B/P (MAP) Pulse Ox O2 Delivery O2 Flow Rate FiO2 05/14/19 14:59 91 Room Air 05/14/19 05:38 98.0 70 18 131/52 (78) 05/13/19 20:10 2.00 Capillary Refill : Less Than 3 Seconds General Appearance: No Apparent Distress, WD/WN, Chronically ill, Obese HEENT: PERRL/EOMI, Normal ENT Inspection, Pharynx Normal, Moist Mucous Membranes Neck: Full Range of Motion, Normal Inspection, Non Tender, Supple Respiratory: Chest Non Tender, Lungs Clear, No Accessory Muscle Use, No Respiratory Distress, Decreased Breath Sounds Cardiovascular: Regular Rate, Rhythm, No Edema, No Gallop, No JVD, No Murmur Gastrointestinal: Normal Bowel Sounds, No Organomegaly, No Pulsatile Mass, Soft, Tenderness (generalized) Back: Normal Inspection, No CVA Tenderness, No Vertebral Tenderness Extremity: Normal Capillary Refill, Normal Inspection, Normal Range of Motion, Non Tender, No Calf Tenderness, No Pedal Edema Neurologic/Psychiatric: Alert, Oriented x3, No Motor/Sensory Deficits, Normal Mood/Affect, staff editor II-XII Norm as Tested, Motor Weakness (subtle weakness all extremities), Other (right AKA stump no ulcerations) Skin: Normal Color, Warm/Dry Lymphatic: No Adenopathy Results/Procedures Lab Patient resulted labs reviewed. FIM Transfers Therapy Code Descriptions/Definitions Functional [place] Measure: 0=Not Assessed/NA 4=Minimal Assistance 1=Total Assistance 5=Supervision or Setup 2=Maximal Assistance 6=Modified [place] 3=Moderate Assistance 7=Complete [place] Therapy Quality Codes: 6 Independent with activity with or without an assistive device 5 Patient requires set up or clean up by helper. Patient completes activity by themselves 4 Supervision or touching assist (CGA). [place] provide cues , steadying assist 3 The helper provides less than half the effort to complete the activity 2 The helper provides more than half the effort to complete the activity 1 Dependent. The helper does all the effort to complete an activity 7 Patient refused to complete or attempt activity 9 The patient did not perform the activity before the current illness or injury 88 Not attempted due to Medical conditions or safety concerns Transfers (B, C, W/C) (FIM): 4 Rollin Roll Left to Right (QC): 4 Supine to/from Sit: 4 Sit to/from Stand: 5 Sit to Lying (QC): 4 Sit to Stand (QC): 4 Chair/Hot-qp-Blxdm Xfer(QC): 4 Bed to/from Chair: 5 Car Transfer (QC): 4 Gait Training Does the Patient Walk?: Yes Gait (FIM): 1 Distance (FIM): 1=up to 49 ft Distance: x 20 ft, x 25 ft, x 25 ft Walk 10 feet (QC): 4 Walk 50 ft with 2 Turns(QC): 88 (pt fatigued and unable to walk this distance this date. ) Walk 150 ft (QC): 88 Walking 10ft/uneven surface-QC: 4 Gait Level of Assist: 4 Gait Persons Needed: 1 Gait Assistive Device: FWW Wheelchair Training Does the Pt Use a Wheelchair?: Yes Wheelchair (FIM): 5 Wheelchair Distance: 3=150 ft Distance: 150'x2 Wheelchair Level of Assist: 5 Wheel 50 ft with 2 turns (QC): 5 Wheel 150 ft (QC): 5 Type of Wheelchair: Manual Stair Training Stairs (FIM): 1 #of Steps: 1 1 Step (curb) (QC): 4 4 Steps (QC): 88 12 Steps (QC): 88 Stairs: Pattern: Step to Level of Assist: 4 Balance Picking up an Object (QC): 88 (unsafe to attempt) Mental Status/Objective Comprehension: 7 Expression: 7 Social Interaction: 7 Problem Solvin Memory: 7 ADL-Treatment Feedin (set up ) Eating (QC): 5 Groomin (CGA while standing at sink for safety/ balnace. cuing for proper hand placement ) Oral Hygiene (QC): 4 Bathin (CGA for safety/ balnac. cuing for energy conservation during task.noted SOB ) Bathing Location: L Arm, R Arm, L Upper Leg, R Upper Leg, L Lower Leg (including foot), Chest, Abdomen, Buttocks, Perineal Area Shower/Bathe Self (QC): 4 Upper Extremity Dressin Upper Body Dressing (QC): 4 Lower Extremity Dressin (pt reuqired assist with threading Altaf legs into br ief and pants, pt reuqired assi with doffing left shoe, and assist with pulling up pants. pt did demo ability to ty prosthetic leg ) Lower Body Dressing (QC): 1 On/Off Footwear (QC): 3 Toiletin (pt reuqired assist with pulling up/ down pants. 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 (4) Smoker Status: Chronic (5) COPD (chronic obstructive pulmonary disease) Status: Chronic Qualifiers: COPD type: unspecified COPD Qualified Codes: J44.9 - Chronic obstructive pulmonary disease, unspecified (6) Ischemic bowel disease Status: Acute (7) Right-sided abdominal pain of unknown cause Status: Resolved Resolution Date/Time: 05/10/19 @ 11:51 (8) Intractable nausea and vomiting Status: Resolved Qualifiers: Vomiting type: unspecified Qualified Codes: R11.2 - Nausea with vomiting, unspecified Resolution Date/Time: 05/10/19 @ 11:51 (9) Abdominal pain Status: Acute Qualifiers: Abdominal location: generalized Qualified Codes: R10.84 - Generalized abdominal pain (10) Anemia Status: Chronic Qualifiers: Anemia type: unspecified type Qualified Codes: D64.9 - Anemia, unspecified (11) Diabetes mellitus Status: Chronic Qualifiers: Diabetes mellitus type: type 2 Diabetes mellitus exterminator helper insulin use: without exterminator helper use Diabetes mellitus complication status: with other specified complication Qualified Codes: E11.69 - Type 2 diabetes mellitus with other specified complication 12. Diarrhea- maintain Imodium and Questran and negative C diff Plan: Checked c diff and it is negative Questran Imodium Fall risk Monitor for urinary retention (1) Debility (2) Nausea and vomiting (3) COPD (chronic obstructive pulmonary disease) (4) Anemia (5) Renal insufficiency (6) Wheezing (7) Hypoxia (8) Abdominal pain (9) Ileus following gastrointestinal surgery (10) S/P partial resection of colon (11) Above knee amputation of right lower extremity (12) Smoker AGATHA PAZ DO May 14, 2019 10:52
[2019-05-14 17:04] VITALS: BP 174/69
[2019-05-14] MEDS: glipiZIDE 5 MG (GLUCOTROL) TAB PO SCH (17:19)
[2019-05-14] MEDS: ATENOLOL 50 MG (TENORMIN) TAB PO SCH (21:01)
[2019-05-14] MEDS: ATORVASTATIN 10 MG (LIPITOR) TABLET PO SCH (21:01)
[2019-05-14] MEDS: TAMSULOSIN 0.4 MG (FLOMAX) CAP PO SCH (21:01)
[2019-05-14] MEDS: SERTRALINE 50 MG (ZOLOFT) TABLET PO SCH (21:01)
[2019-05-14] MEDS: amLODIPine 10 MG (NORVASC) TAB PO SCH (21:02)
[2019-05-15 05:12] VITALS: BP 152/56
--- NOTE | 2019-05-15 05:19 | NUR ---
OPTOMETRIC TECHNICIAN received notification from therapy of patient's request to discharge as soon as possible. OPTOMETRIC TECHNICIAN reviewed this request with Dr. Ballesteros, she is agreeable for discharge on 05/17. Therapy staff feels this is an appropriate discharge date as patient is performing as his baseline function. Patient is agreeable to this date. OPTOMETRIC TECHNICIAN reviewed options of HHC and outpatient therapy; however, patient does not believe he will need either service. OPTOMETRIC TECHNICIAN reviewed IMM and obtained signature. Patient will speak with his later this evening to arrange transport time. Please see discharge summary for further information
[2019-05-15] MEDS: inSUlin ASPART (NovoLOG) 1 UNIT/0.01 ML (CHARGE PER UNIT) SC SCH ×4 (06:31→21:13)
[2019-05-15] MEDS: metFORMIN 500 MG (GLUCOPHAGE) TAB PO SCH ×2 (06:47→16:29)
[2019-05-15] MEDS: CHOLESTYRAMINE 4 GM (QUESTRAN LITE, PREVALITE) PKT PO SCH ×2 (06:47→16:29)
[2019-05-15] MEDS: RT-ALBUTEROL/IPRATROPIUM 3 ML (DUONEB) VIAL INH SCH ×3 (07:14→19:51)
[2019-05-15] MEDS: GABAPENTIN 300 MG (NEURONTIN) CAP PO SCH ×2 (08:27→20:42)
[2019-05-15] MEDS: FINASTERIDE (PROSCAR) 5 MG TAB PO SCH (08:27)
[2019-05-15] MEDS: HYDROcodone/APAP 5 MG/325 MG (LORTAB) TAB PO PRN (08:27)
--- NOTE | 2019-05-15 08:32 | PM&R Progress Note ---
Subjective HPI/CC On Admission Date Seen by Provider: May 15, 2019 Time Seen by Provider: 08:30 Chief complaint: Debility HPI: This is an 83yoWM clinic Pt of Dr. Gallagher who underwent significant small bowel resection from acute ischemia performed by Dr. Henderson who regained stability but was unable to return directly back home to live independently with his prior to intensive rehab training. He just had a BM today and we have ordered for the catheter to be discontinued along with the IV fluid and he is able to eat a regular diet. Dr. 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 Overall he is in agreement with the plan and he will be transferred to inpatient rehab. Subjective/Events-last exam Pt wants to go home and talked to therapy and have a goal of Wednesday. Urinary output of 1500 CCs has some retention but no catheterization is needed. Oxygen weaning in process. Bowels are much improved from the Questran and he doesn't want to get constipated so he will just use that BID prn. Conferred with RN Reviewed therapy notes Working to return to independent status Review of Systems General: Fatigue Objective Exam Vital Signs Vital Signs Date Time Temp Pulse Resp B/P (MAP) Pulse Ox O2 Delivery O2 Flow Rate FiO2 05/15/19 19:51 93 Room Air 05/15/19 17:43 98.2 69 20 153/69 (97) 05/14/19 20:10 2.00 Capillary Refill : Less Than 3 Seconds General Appearance: No Apparent Distress, WD/WN, Chronically ill, Obese HEENT: PERRL/EOMI, Normal ENT Inspection, Pharynx Normal, Moist Mucous Membranes Neck: Full Range of Motion, Normal Inspection, Non Tender, Supple Respiratory: Chest Non Tender, Lungs Clear, No Accessory Muscle Use, No Respiratory Distress, Decreased Breath Sounds Cardiovascular: Regular Rate, Rhythm, No Edema, No Gallop, No JVD, No Murmur Gastrointestinal: Normal Bowel Sounds, No Organomegaly, No Pulsatile Mass, Soft, Tenderness (generalized) Back: Normal Inspection, No CVA Tenderness, No Vertebral Tenderness Extremity: Normal Capillary Refill, Normal Inspection, Normal Range of Motion, Non Tender, No Calf Tenderness, No Pedal Edema Neurologic/Psychiatric: Alert, Oriented x3, No Motor/Sensory Deficits, Normal Mood/Affect, crook operator II-XII Norm as Tested, Motor Weakness (subtle weakness all extremities), Other (right AKA stump no ulcerations) Skin: Normal Color, Warm/Dry Lymphatic: No Adenopathy Results/Procedures Lab Patient resulted labs reviewed. FIM Transfers Therapy Code Descriptions/Definitions Functional [place] Measure: 0=Not Assessed/NA 4=Minimal Assistance 1=Total Assistance 5=Supervision or Setup 2=Maximal Assistance 6=Modified [place] 3=Moderate Assistance 7=Complete [place] Therapy Quality Codes: 6 Independent with activity with or without an assistive device 5 Patient requires set up or clean up by helper. Patient completes activity by themselves 4 Supervision or touching assist (CGA). [place] provide cues , steadying assist 3 The helper provides less than half the effort to complete the activity 2 The helper provides more than half the effort to complete the activity 1 Dependent. The helper does all the effort to complete an activity 7 Patient refused to complete or attempt activity 9 The patient did not perform the activity before the current illness or injury 88 Not attempted due to Medical conditions or safety concerns Transfers (B, C, W/C) (FIM): 4 Rollin Roll Left to Right (QC): 4 Supine to/from Sit: 4 Sit to/from Stand: 5 Sit to Lying (QC): 4 Sit to Stand (QC): 4 Chair/Hhc-ey-Cytux Xfer(QC): 4 Bed to/from Chair: 5 Car Transfer (QC): 4 Gait Training Does the Patient Walk?: Yes Gait (FIM): 1 Distance (FIM): 1=up to 49 ft Distance: x 20 ft, x 25 ft, x 25 ft Walk 10 feet (QC): 4 Walk 50 ft with 2 Turns(QC): 88 (pt fatigued and unable to walk this distance this date. ) Walk 150 ft (QC): 88 Walking 10ft/uneven surface-QC: 4 Gait Level of Assist: 4 Gait Persons Needed: 1 Gait Assistive Device: FWW Wheelchair Training Does the Pt Use a Wheelchair?: Yes Wheelchair (FIM): 5 Wheelchair Distance: 3=150 ft Distance: 150'x2 Wheelchair Level of Assist: 5 Wheel 50 ft with 2 turns (QC): 5 Wheel 150 ft (QC): 5 Type of Wheelchair: Manual Stair Training Stairs (FIM): 1 #of Steps: 1 1 Step (curb) (QC): 4 4 Steps (QC): 88 12 Steps (QC): 88 Stairs: Pattern: Step to Level of Assist: 4 Balance Picking up an Object (QC): 88 (unsafe to attempt) Mental Status/Objective Comprehension: 7 Expression: 7 Social Interaction: 7 Problem Solvin Memory: 7 ADL-Treatment Feedin (set up ) Eating (QC): 5 Groomin (CGA while standing at sink for safety/ balnace. cuing for proper hand placement ) Oral Hygiene (QC): 4 Bathin (CGA for safety/ balnac. cuing for energy conservation during task.noted SOB ) Bathing Location: L Arm, R Arm, L Upper Leg, R Upper Leg, L Lower Leg (including foot), Chest, Abdomen, Buttocks, Perineal Area Shower/Bathe Self (QC): 4 Upper Extremity Dressin Upper Body Dressing (QC): 4 Lower Extremity Dressin (pt reuqired assist with threading Altaf legs into brief and pants, pt reuqired assi with doffing left shoe, and assist with pulling up pants. pt did demo ability to ty prosthetic leg ) Lower Body Dressing (QC): 1 On/Off Footwear (QC): 3 Toiletin (pt reuqired assist with pulling up/ down pants. 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 (4) Smoker Status: Chronic (5) COPD (chronic obstructive pulmonary disease) Status: Chronic Qualifiers: COPD type: unspecified COPD Qualified Codes: J44.9 - Chronic obstructive pulmonary disease, unspecified (6) Ischemic bowel disease Status: Acute (7) Right-sided abdominal pain of unknown cause Status: Resolved Resolution Date/Time: 05/10/19 @ 11:51 (8) Intractable nausea and vomiting Status: Resolved Qualifiers: Vomiting type: unspecified Qualified Codes: R11.2 - Nausea with vomiting, unspecified Resolution Date/Time: 05/10/19 @ 11:51 (9) Abdominal pain Status: Acute Qualifiers: Abdominal location: generalized Qualified Codes: R10.84 - Generalized abdominal pain (10) Anemia Status: Chronic Qualifiers: Anemia type: unspecified type Qualified Codes: D64.9 - Anemia, unspecified (11) Diabetes mellitus Status: Chronic Qualifiers: Diabetes mellitus type: type 2 Diabetes mellitus mcfp insulin use: without mcfp use Diabetes mellitus complication status: with other specified complication Qualified Codes: E11.69 - Type 2 diabetes mellitus with other specified complication 12. Diarrhea- maintain Imodium and Questran and negative C diff Plan: Checked c diff and it is negative Questran BID prn but hold if not needed Imodium Fall risk Monitor for urinary retention (1) Debility (2) Nausea and vomiting (3) COPD (chronic obstructive pulmonary disease) (4) Anemia (5) Renal insufficiency (6) Wheezing (7) Hypoxia (8) Abdominal pain (9) Ileus following gastrointestinal surgery (10) S/P partial resection of colon (11) Above knee amputation of right lower extremity (12) Smoker AGATHA PAZ DO May 15, 2019 08:31
--- NOTE | 2019-05-15 08:59 | Physical Therapy Daily Note ---
PT Daily Note-Current Subjective Patient in wheelchair in room pre tx, agrees to PT, has unrated pain in both legs, wants pain meds, nurse notified and he got some. Appearance Patient in wheelchair at bedside post tx with nurse call, phone, tray, all needs met. Mental Status Patient Orientation: Person, Place, Situation Transfers Therapy Code Descriptions/Definitions Functional [place] Measure: 0=Not Assessed/NA 4=Minimal Assistance 1=Total Assistance 5=Supervision or Setup 2=Maximal Assistance 6=Modified [place] 3=Moderate Assistance 7=Complete [place] Therapy Quality Codes: 6 Independent with activity with or without an assistive device 5 Patient requires set up or clean up by helper. Patient completes activity by themselves 4 Supervision or touching assist (CGA). [place] provide cues , steadying assist 3 The helper provides less than half the effort to complete the activity 2 The helper provides more than half the effort to complete the activity 1 Dependent. The helper does all the effort to complete an activity 7 Patient refused to complete or attempt activity 9 The patient did not perform the activity before the current illness or injury 88 Not attempted due to Medical conditions or safety concerns Transfers (B, C, W/C) (FIM): 5 Sit to/from Stand: 5 Bed to/from Chair: 5 Gait Training Gait (FIM): 1 Distance: 50'x3 Gait Level of Assist: 4 Gait Persons Needed: 1 Gait Assistive Device: FWW Right knee contracture, patient ambulates with flexed right knee, no LOB or unsteadiness but patient very fatigued after each bout of ambulation Wheelchair Training Does the Pt Use a Wheelchair?: Yes Wheelchair (FIM): 6 Distance: 150'x2 Wheelchair Level of Assist: 6 Type of Wheelchair: Manual Exercises Seated Therapy Exercises: Ankle pumps (only left leg), Long arc quads, Hip flexion Seated Reps: 20 NuStep Minutes: 10 NuStep Workload: 5 Treatments transfers, ambulation, LE exercise Assessment Current Status: Fair Progress Patient had a hard time with therapy this morning due to pain and fatigue and had increased swelling in both LE's. PT Short Term Goals Short Term Goals Time Frame: May 18, 2019 Transfers (B,C,W/C) (FIM): 5 Gait (FIM): 2 Distance (FIM): 8=509-52 ft Gait Distance Comment: 50 ft Gait Level of Assist: 4 Gait Assistive Device: FWW Wheelchair Distance: 150'x2 PT Custodial Goals Custodial Goals PT Custodial Goals Time Frame: May 29, 2019 Transfers (B,C,W/C) (FIM): 6 Sit to Lying (QC): 6 Lying-Sitting on Side/Bed(QC): 6 Sit to Stand (QC): 6 Rollin Roll Left to Right (QC): 6 Chair/Kgv-rq-Vyveu Xfer(QC): 6 Car Transfer (QC): 5 Does the Patient Walk: Yes Gait (FIM): 5 (household distance) Gait distance (FIM): 1=174-30 ft Distance: 50 ft Walk 10 feet (QC): 6 Walk 10ft-Uneven Surface(QC): 5 Walk 50ft with 2 Turns (QC): 6 Walk 150 ft (QC): 9 Gait Assistive Device: FWW Does the Pt use WC or Scooter?: Yes Wheelchair (FIM): 6 Wheelchair distance (FIM): 3=150 ft Wheel 50 feet with 2 turns (QC: 6 Stairs (FIM): 2 # of Steps: 4 1 Step (curb) (QC): 4 4 Steps (QC): 4 12 Steps (QC): 9 Picking up an Object (QC): 88 PT Plan Problem List Problem List: Activity Tolerance, Functional Strength, Safety, Balance, Gait, Transfer, Bed Mobility, ROM Treatment/Plan Treatment Plan: Continue Plan of Care Treatment Plan: Bed Mobility, Education, Functional Activity [place], Functional Strength, Group Therapy, Gait, Safety, Therapeutic Exercise, Transfers Treatment Duration: May 29, 2019 Frequency: At least 5 of 7 days/Wk (IRF) Estimated Hrs Per Day: 1.5 hours per day Patient and/or Family Agrees t: Yes Safety Risks/Education Patient Education: Gait Training, Transfer Techniques, Correct Positioning, Safety Issues Teaching Recipient: Patient Teaching Methods: Demonstration, Discussion Response to Teaching: Reinforcement Needed Time/GCodes Time In: 0800 Time Out: 0900 Total Billed Treatment Time: 60 Total Billed Treatment 1 visit FA 10' EX 20' GT 30' NICOLE ESCUDERO PT May 15, 2019 08:59
[2019-05-15] MEDS: ENOXAPARIN 40 MG/0.4 ML (LOVENOX) SYR SC SCH (09:29)
--- NOTE | 2019-05-15 10:00 | NUR ---
INCREASED SWELLING IN LEFT FOOT AND ENCOURAGED TO KEEP IT ELEVATED.
--- NOTE | 2019-05-15 10:15 | Progress Note-Urology ---
Progress Note-Urology Progress Notes/Assess & Plan Progress/Assessment & Plan VOIDING ON OWN. NO CATH. DIARRHEA RESOLVED Final Diagnosis URINE RETENTION (RESOLVED) DORA MARINO MD May 15, 2019 10:15
--- NOTE | 2019-05-15 11:46 | Occupational Ther Daily Note ---
OT Current Status-Daily Note Subjective PT AGREED TO ot tx SESSION WITH FOCUS ON INCREASING UE STRENGTH, AND OVERALL ACTIVITY TOLERANCE FOR DAILY ACTIVITIES. Appearance noted edema in LLE. NSG made aware. Mental Status/Objective Therapy Code Descriptions/Definitions Functional [place] Measure: 0=Not Assessed/NA 4=Minimal Assistance 1=Total Assistance 5=Supervision or Setup 2=Maximal Assistance 6=Modified [place] 3=Moderate Assistance 7=Complete [place] ADL-Treatment Therapy Code Descriptions/Definitions Functional [place] Measure: 0=Not Assessed/NA 4=Minimal Assistance 1=Total Assistance 5=Supervision or Setup 2=Maximal Assistance 6=Modified [place] 3=Moderate Assistance 7=Complete [place] Therapy Quality Codes: 6 Independent with activity with or without an assistive device 5 Patient requires set up or clean up by helper. Patient completes activity by themselves 4 Supervision or touching assist (CGA). [place] provide cues , steadying assist 3 The helper provides less than half the effort to complete the activity 2 The helper provides more than half the effort to complete the activity 1 Dependent. The helper does all the effort to complete an activity 7 Patient refused to complete or attempt activity 9 The patient did not perform the activity before the current illness or injury 88 Not attempted due to Medical conditions or safety concerns Eating (FIM): 7 Eating (QC): 6 Grooming (FIM): 7 (seated in w/c ) Oral Hygiene (QC): 6 Lower Body Dressing (FIM): 6 (L shoes, Right pros. ) Lower Body Dressing (QC): 6 Toilet/Commode Transfer (FIM): 6 (MOD I ) Other Treatment pt demo ability to self propel w/c to tx gym approx 55 ft MOD I with no safety concerns. once in gym pt perform UBE 15 minutes with MOD resistance and no rest breaks. pt then perform ball toss with peer to increase overall activity tolerance while seated. pt demo activity for 4 minutes then required 3 minutes rest break then complete ball toss for 4 mins again. pt then given 4# dummbell and perform 15X2 shoulder FLEX/ EXT/ ADD/ ABD, 15X2 elbow flex/ EXT/ supination/ pronation,15X2 wrist flex/ ext. noted rest breaks between set secondary to tolerance. noted pt complains of R shoulder pain when lifting weight greater than 100 degrees for shoulder. shoulder examed noted no marking. pt stated his Right shoulder bother him PLOF from when he was working in his garage at home. pt then self propelled back to room. ;pt education on importance of elevating LLE secondary to edema. pt requested to stay in w/c stated the recliner chair is uncomfortable. pt sitting in w/c with LLE propelled up on recliner chair for elevation. tray, call light, phone all within reach. all needs met. Education OT Patient Education: Energy conservation, Exercise program, Home exercise program, Progress toward Goal/Update tx plan, Purpose of tx/functional activities, Rehab process, Safety issues, Transfer techniques Teaching Recipient: Patient Teaching Methods: Demonstration, Discussion Response to Teaching: Verbalize Understanding, Return Demonstration OT Short Term Goals Short Term Goals Grooming(FIM): 5 Bathing(FIM): 5 Upper Body Dressing(FIM): 5 Lower Body Dressing(FIM): 5 Toileting(FIM): 5 Transfers (B,C,W/C) (FIM): 5 Toilet/Commode Transfer(FIM): 5 Shower Transfer(FIM): 5 1=Demonstrate adherence to instructed precautions during ADL tasks. 2=Patient will verbalize/demonstrate understanding of assistive devices/modifica tions for ADL. 3=Patient will improve strength/tolerance for activity to enable patient to perform ADL's. OT Loss Prevention Manager Goals Assisted Goals Time Frame: Jun 08, 2019 Eating (FIM): 6 Eating (QC): 6 Groomin Oral Hygiene (QC): 6 Bathing(FIM): 6 Bathing Location: L Arm, R Arm, L Upper Leg, R Upper Leg, L Lower Leg (including foot), R Lower Leg (including foot), Chest, Abdomen, Buttocks, Perineal Area Shower/Bathe Self (QC): 6 Upper Body Dressing(FIM): 6 Upper Body Dressing (QC): 6 Lower Body Dressing(FIM): 6 Lower Body Dressing (QC): 6 On/Off Footwear (QC): 6 Toileting(FIM): 6 Toileting Hygiene (QC): 6 Transfers (B,C,W/C) (FIM): 6 Toilet/Commode Transfer(FIM): 6 Toilet/Commode Transfer (QC): 6 Shower Transfer(FIM): 6 Additional Goals: 1-Demonstrate ADL Tasks, 2-Verbalize Understanding, 3-ImproveStrength/Katlyn 1=Demonstrate adherence to instructed precautions during ADL tasks. 2=Patient will verbalize/demonstrate understanding of assistive devices/modifications for ADL. 3=Patient will improve strength/tolerance for activity to enable patient to perform ADL's. OT Education/Plan Problem List/Assessment Assessment: Decreased Activ Tolerance, Decreased UE Strength, Impaired Funct Balance, Impaired I ADL's, Impaired Self-Care Skills pt presents with functional limitations affecting areas of ADLs and functional transfers with the above mention deficits. pt would benefit from skilled OT services to increase independence with ADLS/ functional transfers and for safe transition to home. Discharge Recommendations Plan/Recommendations: Continue POC Treatment Plan/Plan of Care Treatment,Training & Education: Yes Patient would benefit from OT for education, treatment and training to promote independence in ADL's, mobility, safety and/or upper extremity function for ADL's. Plan of Care: ADL Retraining, Caregiver Training, Concurrent Therapy, Functional Mobility, Group Exercise/Act as Ind, UE Funct Exercise/Act Treatment Duration: Jun 08, 2019 Frequency: At least 5 of 7 days/Wk (IRF) Estimated Hrs Per Day: 1 hour per day (60-90 minutes per day ) Agreement: Yes Rehab Potential: Good Time/GCodes Start Time: 10:15 Stop Time: 11:45 Billed Treatment Time EX 30 minutes, 2 units FA 60 minutes, 4 units PAWAN DIAZ OT May 15, 2019 11:46
--- NOTE | 2019-05-15 14:23 | Physical Therapy Daily Note ---
PT Daily Note-Current Subjective Agrees to PT. Hopes to go home soon. Transfers Therapy Code Descriptions/Definitions Functional [place] Measure: 0=Not Assessed/NA 4=Minimal Assistance 1=Total Assistance 5=Supervision or Setup 2=Maximal Assistance 6=Modified [place] 3=Moderate Assistance 7=Complete [place] Therapy Quality Codes: 6 Independent with activity with or without an assistive device 5 Patient requires set up or clean up by helper. Patient completes activity by themselves 4 Supervision or touching assist (CGA). [place] provide cues , steadying assist 3 The helper provides less than half the effort to complete the activity 2 The helper provides more than half the effort to complete the activity 1 Dependent. The helper does all the effort to complete an activity 7 Patient refused to complete or attempt activity 9 The patient did not perform the activity before the current illness or injury 88 Not attempted due to Medical conditions or safety concerns Wheelchair Training Does the Pt Use a Wheelchair?: Yes Wheelchair (FIM): 6 Wheelchair Distance: 3=150 ft Distance: 400 ft Wheelchair Level of Assist: 6 Wheel 50 ft with 2 turns (QC): 6 Wheel 150 ft (QC): 6 Type of Wheelchair: Manual Pt able to propel in his room, on/off the elevator and outdoors on level surfaces. Pt did require assist to propel up a slope Assessment Current Status: Good Progress Pt is mod indep with wheelchair mobiltiy at a household level. PT Short Term Goals Short Term Goals Time Frame: May 18, 2019 Transfers (B,C,W/C) (FIM): 5 Gait (FIM): 2 Distance (FIM): 6=719-40 ft Gait Distance Comment: 50 ft Gait Level of Assist: 4 Gait Assistive Device: FWW Wheelchair Distance: 150'x2 PT Fci Goals Superintendent Generating Plant Goals PT Fci Goals Time Frame: May 29, 2019 Transfers (B,C,W/C) (FIM): 6 Sit to Lying (QC): 6 Lying-Sitting on Side/Bed(QC): 6 Sit to Stand (QC): 6 Rollin Roll Left to Right (QC): 6 Chair/Ofg-ii-Ryyna Xfer(QC): 6 Car Transfer (QC): 5 Does the Patient Walk: Yes Gait (FIM): 5 (household distance) Gait distance (FIM): 6=628-08 ft Distance: 50 ft Walk 10 feet (QC): 6 Walk 10ft-Uneven Surface(QC): 5 Walk 50ft with 2 Turns (QC): 6 Walk 150 ft (QC): 9 Gait Assistive Device: FWW Does the Pt use WC or Scooter?: Yes Wheelchair (FIM): 6 (met) Wheelchair distance (FIM): 3=150 ft Wheel 50 feet with 2 turns (QC: 6 Stairs (FIM): 2 # of Steps: 4 1 Step (curb) (QC): 4 4 Steps (QC): 4 12 Steps (QC): 9 Picking up an Object (QC): 88 PT Plan Problem List Problem List: Activity Tolerance, Functional Strength, Safety, Balance, Gait, Transfer, Bed Mobility Treatment/Plan Treatment Plan: Continue Plan of Care Treatment Plan: Bed Mobility, Education, Functional Activity [place], Functional Strength, Group Therapy, Gait, Safety, Therapeutic Exercise, Transfers Treatment Duration: May 29, 2019 Frequency: At least 5 of 7 days/Wk (IRF) Estimated Hrs Per Day: 1.5 hours per day Patient and/or Family Agrees t: Yes Safety Risks/Education Patient Education: Safety Issues Teaching Recipient: Patient Teaching Methods: Demonstration, Discussion Response to Teaching: Return Demonstration Discharge Recommendations Therapy D/C Recommendations: Physical Therapy Home Care Time/GCodes Time In: 1300 Time Out: 1330 Total Billed Treatment Time: 30 Total Billed Treatment visit WC 30 RADHA FLORES PT May 15, 2019 14:23
--- NOTE | 2019-05-15 15:50 | NUR ---
VOIDED 250 CC AND THEN BLADDER SCAN SHOWED 114 CC.
[2019-05-15] MEDS: glipiZIDE 5 MG (GLUCOTROL) TAB PO SCH (16:29)
[2019-05-15 17:43] VITALS: BP 153/69
--- NOTE | 2019-05-15 18:00 | NUR ---
HAS BEEN ON ROOM AIR SEVERAL DAYS NOW AND TOLERATING WELL. O2 SAT CHECKED X 2 TODAY AND 96% BOTH TIMES.
[2019-05-15] MEDS: ATENOLOL 50 MG (TENORMIN) TAB PO SCH (20:42)
[2019-05-15] MEDS: TAMSULOSIN 0.4 MG (FLOMAX) CAP PO SCH (20:42)
[2019-05-15] MEDS: amLODIPine 10 MG (NORVASC) TAB PO SCH (20:42)
[2019-05-15] MEDS: ATORVASTATIN 10 MG (LIPITOR) TABLET PO SCH (20:42)
[2019-05-15] MEDS: SERTRALINE 50 MG (ZOLOFT) TABLET PO SCH (20:42)
[2019-05-16 05:18] VITALS: BP 135/59
[2019-05-16] MEDS: metFORMIN 500 MG (GLUCOPHAGE) TAB PO SCH ×2 (05:41→16:35)
[2019-05-16] MEDS: inSUlin ASPART (NovoLOG) 1 UNIT/0.01 ML (CHARGE PER UNIT) SC SCH ×4 (05:42→20:58)
[2019-05-16] MEDS: RT-ALBUTEROL/IPRATROPIUM 3 ML (DUONEB) VIAL INH SCH ×3 (06:04→22:13)
[2019-05-16 06:07] LABS: BASOPHILS # (AUTO) 0.1 10^3/uL (0.0-0.1); BASOPHILS % (AUTO) 1 % (0-10); EOSINOPHILS # (AUTO) 0.4 10^3/uL (0.0-0.3); EOSINOPHILS % (AUTO) 6 % (0-10); HEMATOCRIT 37 % (40-54); HEMOGLOBIN 12.1 G/DL (13.3-17.7); LYMPHOCYTES # (AUTO) 1.4 X 10^3 (1.0-4.0); LYMPHOCYTES % (AUTO) 24 % (12-44); MEAN CORPUSCULAR HEMOGLOBIN 29 PG (25-34); MEAN CORPUSCULAR HGB CONC 33 G/DL (32-36); MEAN CORPUSCULAR VOLUME 89 FL (80-99); MEAN PLATELET VOLUME 10.4 FL (7.4-10.4); MONOCYTES # (AUTO) 0.5 X 10^3 (0.0-1.0); MONOCYTES % (AUTO) 10 % (0-12); NEUTROPHILS # (AUTO) 3.3 X 10^3 (1.8-7.8); NEUTROPHILS % (AUTO) 59 % (42-75); PLATELET COUNT 255 10^3/uL (130-400); RED CELL DISTRIBUTION WIDTH 13.7 % (10.0-14.5); WHITE BLOOD COUNT 5.6 10^3/uL (4.3-11.0)
[2019-05-16] MEDS: CHOLESTYRAMINE 4 GM (QUESTRAN LITE, PREVALITE) PKT PO SCH ×2 (06:30→09:29)
[2019-05-16 06:34] LABS: ALANINE AMINOTRANSFERASE 23 U/L (0-55); ALBUMIN 3.6 GM/DL (3.2-4.5); ALKALINE PHOSPHATASE 74 U/L (40-136); BILIRUBIN,TOTAL 0.4 MG/DL (0.1-1.0); BUN/CREATININE RATIO 15; CALCIUM 9.2 MG/DL (8.5-10.1); CARBON DIOXIDE 26 MMOL/L (21-32); CHLORIDE 105 MMOL/L (98-107); GFR ESTIMATED > 60; GLUCOSE 82 MG/DL (70-105); POTASSIUM 4.1 MMOL/L (3.6-5.0); SODIUM 141 MMOL/L (135-145); TOTAL PROTEIN 6.5 GM/DL (6.4-8.2)
--- NOTE | 2019-05-16 08:58 | Physical Therapy Daily Note ---
PT Daily Note-Current Subjective Patient in bed pre tx, agrees to PT, has no complaints of pain at rest. Appearance Patient on toilet post tx, instructed to use nurse call when done. Mental Status Patient Orientation: Person, Place, Situation Transfers Therapy Code Descriptions/Definitions Functional [place] Measure: 0=Not Assessed/NA 4=Minimal Assistance 1=Total Assistance 5=Supervision or Setup 2=Maximal Assistance 6=Modified [place] 3=Moderate Assistance 7=Complete [place] Therapy Quality Codes: 6 Independent with activity with or without an assistive device 5 Patient requires set up or clean up by helper. Patient completes activity by themselves 4 Supervision or touching assist (CGA). [place] provide cues , steadying assist 3 The helper provides less than half the effort to complete the activity 2 The helper provides more than half the effort to complete the activity 1 Dependent. The helper does all the effort to complete an activity 7 Patient refused to complete or attempt activity 9 The patient did not perform the activity before the current illness or injury 88 Not attempted due to Medical conditions or safety concerns Transfers (B, C, W/C) (FIM): 6 Scootin Rollin Roll Left to Right (QC): 6 Supine to/from Sit: 6 Sit to/from Stand: 6 Sit to Lying (QC): 6 Sit to Stand (QC): 6 Chair/Vrq-ni-Vvtxu Xfer(QC): 6 Bed to/from Chair: 6 Car Transfer (QC): 4 Patient performs bed mobility with mod I, supine <-> sit with mod I, sit <-> stand with mod I, transfers with mod I, car transfer SBA. He has some difficul ty with supine to sit and sit to stand but can do it without assist, he may need a couple of tries before completing. Gait Training Gait (FIM): 2 Distance: 50'x3 Walk 10 feet (QC): 4 Walk 50 ft with 2 Turns(QC): 4 Walking 10ft/uneven surface-QC: 4 Gait Level of Assist: 4 Gait Persons Needed: 1 Gait Assistive Device: FWW Patient can ambulate 50' with a rolling walker with CGA (including 50' with at least 2 turns of 90 degrees and 10' over an uneven surface). 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 Wheelchair Training Does the Pt Use a Wheelchair?: Yes Wheelchair (FIM): 6 Distance: 150' Type of Wheelchair: Manual Stair Training Stair Training: Handrails/: uses walker Stairs (FIM): 1 #of Steps: 1 1 Step (curb) (QC): 4 Stairs: Pattern: Step to Level of Assist: 4 Patient can go up and down 1 step using a rolling walker with CGA. Patient needs cues for foot placement. Exercises Supine Ex: Quad Set, Glut sets, Straight leg raise, Hip abd/add Supine Reps: 20 LAQ alternating for 5 min NuStep Minutes: 15 NuStep Workload: 4 Treatments bed mobility and transfers, ambulation, LE strengthening Assessment Current Status: Fair Progress Patient has improved transfers and is now mod I PT Short Term Goals Short Term Goals Time Frame: May 18, 2019 Transfers (B,C,W/C) (FIM): 5 Gait (FIM): 2 Distance (FIM): 8=303-97 ft Gait Distance Comment: 50 ft Gait Level of Assist: 4 Gait Assistive Device: FWW Wheelchair Distance: 400 ft PT Longterm Goals Director Public Policy Goals PT Director Public Policy Goals Time Frame: May 29, 2019 Transfers (B,C,W/C) (FIM): 6 (met) Sit to Lying (QC): 6 (met) Lying-Sitting on Side/Bed(QC): 6 (met) Sit to Stand (QC): 6 (met) Rollin (met) Roll Left to Right (QC): 6 (met) Chair/Uts-tb-Eqvzd Xfer(QC): 6 (met) Car Transfer (QC): 5 Does the Patient Walk: Yes Gait (FIM): 5 Gait distance (FIM): 2=492-44 ft Distance: 50 ft Walk 10 feet (QC): 6 Walk 10ft-Uneven Surface(QC): 5 Walk 50ft with 2 Turns (QC): 6 Walk 150 ft (QC): 9 Gait Assistive Device: FWW Does the Pt use WC or Scooter?: Yes Wheelchair (FIM): 6 (met) Wheelchair distance (FIM): 3=150 ft Wheel 50 feet with 2 turns (QC: 6 Stairs (FIM): 2 # of Steps: 4 1 Step (curb) (QC): 4 4 Steps (QC): 4 12 Steps (QC): 9 Picking up an Object (QC): 88 PT Plan Problem List Problem List: Activity Tolerance, Functional Strength, Safety, Balance, Gait, Transfer, Bed Mobility, ROM Treatment/Plan Treatment Plan: Continue Plan of Care Treatment Plan: Bed Mobility, Education, Functional Activity [place], Functional Strength, Group Therapy, Gait, Safety, Therapeutic Exercise, Transfers Treatment Duration: May 29, 2019 Frequency: At least 5 of 7 days/Wk (IRF) Estimated Hrs Per Day: 1.5 hours per day Patient and/or Family Agrees t: Yes Safety Risks/Education Patient Education: Gait Training, Transfer Techniques, Steps, Correct Positioning, W/C Management, Safety Issues Teaching Recipient: Patient Teaching Methods: Demonstration, Discussion Response to Teaching: Reinforcement Needed Time/GCodes Time In: 0800 Time Out: 0900 Total Billed Treatment Time: 60 Total Billed Treatment 1 visit GT 15' FA 15' EX 30' NICOLE ESCUDERO PT May 16, 2019 08:58
--- NOTE | 2019-05-16 09:08 | PM&R Progress Note ---
Subjective HPI/CC On Admission Date Seen by Provider: May 16, 2019 Time Seen by Provider: 08:30 Chief complaint: Debility HPI: This is an 83yoWM clinic Pt of Dr. Gallagher who underwent significant small bowel resection from acute ischemia performed by Dr. Henderson who regained stability but was unable to return directly back home to live independently with his prior to intensive rehab training. He just had a BM today and we have ordered for the catheter to be discontinued along with the IV fluid and he is able to eat a regular diet. Dr. 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 Overall he is in agreement with the plan and he will be transferred to inpatient rehab. Subjective/Events-last exam Pt has been off oxygen since this weekend Voiding well no catheter required DC planned for tomorrow No Questran is needed because he did a have a BM yesterday that was not loose but he does want that at DC Overall improving back to prior level of functioning Conferred with RN Reviewed therapy notes Review of Systems General: Fatigue Objective Exam Vital Signs Vital Signs Date Time Temp Pulse Resp B/P (MAP) Pulse Ox O2 Delivery O2 Flow Rate FiO2 05/16/19 18:05 70 152/72 (98) 05/16/19 17:25 98.5 16 95 Room Air 05/14/19 20:10 2.00 Capillary Refill : Less Than 3 Seconds General Appearance: No Apparent Distress, WD/WN, Chronically ill, Obese HEENT: PERRL/EOMI, Normal ENT Inspection, Pharynx Normal, Moist Mucous Membranes Neck: Full Range of Motion, Normal Inspection, Non Tender, Supple Respiratory: Chest Non Tender, Lungs Clear, No Accessory Muscle Use, No Respiratory Distress, Decreased Breath Sounds Cardiovascular: Regular Rate, Rhythm, No Edema, No Gallop, No JVD, No Murmur Gastrointestinal: Normal Bowel Sounds, No Organomegaly, No Pulsatile Mass, Soft, Tenderness (generalized) Back: Normal Inspection, No CVA Tenderness, No Vertebral Tenderness Extremity: Normal Capillary Refill, Normal Inspection, Normal Range of Motion, Non Tender, No Calf Tenderness, No Pedal Edema Neurologic/Psychiatric: Alert, Oriented x3, No Motor/Sensory Deficits, Normal Mood/Affect, 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 FIM Transfers Therapy Code Descriptions/Definitions Functional [place] Measure: 0=Not Assessed/NA 4=Minimal Assistance 1=Total Assistance 5=Supervision or Setup 2=Maximal Assistance 6=Modified [place] 3=Moderate Assistance 7=Complete [place] Therapy Quality Codes: 6 Independent with activity with or without an assistive device 5 Patient requires set up or clean up by helper. Patient completes activity by themselves 4 Supervision or touching assist (CGA). [place] provide cues , steadying assist 3 The helper provides less than half the effort to complete the activity 2 The helper provides more than half the effort to complete the activity 1 Dependent. The helper does all the effort to complete an activity 7 Patient refused to complete or attempt activity 9 The patient did not perform the activity before the current illness or injury 88 Not attempted due to Medical conditions or safety concerns Transfers (B, C, W/C) (FIM): 6 Scootin Rollin (met) Roll Left to Right (QC): 6 Supine to/from Sit: 6 Sit to/from Stand: 6 Sit to Lying (QC): 6 Sit to Stand (QC): 6 Chair/Ayn-lh-Klsmo Xfer(QC): 6 Bed to/from Chair: 6 Car Transfer (QC): 4 Gait Training Does the Patient Walk?: Yes Gait (FIM): 2 Distance (FIM): 1=up to 49 ft Distance: 50'x3 Walk 10 feet (QC): 4 Walk 50 ft with 2 Turns(QC): 4 Walk 150 ft (QC): 88 Walking 10ft/uneven surface-QC: 4 Gait Level of Assist: 4 Gait Persons Needed: 1 Gait Assistive Device: FWW Wheelchair Training Does the Pt Use a Wheelchair?: Yes Wheelchair (FIM): 6 Wheelchair Distance: 3=150 ft Distance: 150' Wheelchair Level of Assist: 6 Wheel 50 ft with 2 turns (QC): 6 Wheel 150 ft (QC): 6 Type of Wheelchair: Manual Stair Training Stair Training: Handrails/: uses walker Stairs (FIM): 1 #of Steps: 1 1 Step (curb) (QC): 4 4 Steps (QC): 88 12 Steps (QC): 88 Stairs: Pattern: Step to Level of Assist: 4 Balance Picking up an Object (QC): 88 (unsafe to attempt) Mental Status/Objective Comprehension: 7 Expression: 7 Social Interaction: 7 Problem Solvin Memory: 7 ADL-Treatment Feedin Eating (QC): 6 Groomin (seated in w/c ) Oral Hygiene (QC): 6 Bathin (CGA for safety/ balnac. cuing for energy conservation during task.noted SOB ) Bathing Location: L Arm, R Arm, L Upper Leg, R Upper Leg, L Lower Leg (including foot), Chest, Abdomen, Buttocks, Perineal Area Shower/Bathe Self (QC): 4 Upper Extremity Dressin Upper Body Dressing (QC): 4 Lower Extremity Dressin (L shoes, Right pros. ) Lower Body Dressing (QC): 6 On/Off Footwear (QC): 3 Toiletin (pt reuqired assist with pulling up/ down pants. 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 (4) Smoker Status: Chronic (5) COPD (chronic obstructive pulmonary disease) Status: Chronic Qualifiers: COPD type: unspecified COPD Qualified Codes: J44.9 - Chronic obstructive pulmonary disease, unspecified (6) Ischemic bowel disease Status: Acute (7) Right-sided abdominal pain of unknown cause Status: Resolved Resolution Date/Time: 05/10/19 @ 11:51 (8) Intractable nausea and vomiting Status: Resolved Qualifiers: Vomiting type: unspecified Qualified Codes: R11.2 - Nausea with vomiting, unspecified Resolution Date/Time: 05/10/19 @ 11:51 (9) Abdominal pain Status: Acute Qualifiers: Abdominal location: generalized Qualified Codes: R10.84 - Generalized abdominal pain (10) Anemia Status: Chronic Qualifiers: Anemia type: unspecified type Qualified Codes: D64.9 - Anemia, unspecified (11) Diabetes mellitus Status: Chronic Qualifiers: Diabetes mellitus type: type 2 Diabetes mellitus assistant terminal manager insulin use: without penitentiary use Diabetes mellitus complication status: with other specified complication Qualified Codes: E11.69 - Type 2 diabetes mellitus with other specified complication 12. Diarrhea- maintain Imodium and Questran and negative C diff Plan: Checked c diff and it is negative Questran BID prn but hold if not needed Imodium Fall risk Monitor for urinary retention DC home tomorrow (1) Debility (2) Nausea and vomiting (3) COPD (chronic obstructive pulmonary disease) (4) Anemia (5) Renal insufficiency (6) Wheezing (7) Hypoxia (8) Abdominal pain (9) Ileus following gastrointestinal surgery (10) S/P partial resection of colon (11) Above knee amputation of right lower extremity (12) Smoker AGATHA PAZ DO May 16, 2019 09:07
[2019-05-16] MEDS: GABAPENTIN 300 MG (NEURONTIN) CAP PO SCH ×2 (09:24→20:52)
[2019-05-16] MEDS: FINASTERIDE (PROSCAR) 5 MG TAB PO SCH (09:24)
[2019-05-16] MEDS: ENOXAPARIN 40 MG/0.4 ML (LOVENOX) SYR SC SCH (09:26)
--- NOTE | 2019-05-16 10:00 | NUR ---
STATES EXPELLED A LOOSE STOOL AND REQUESTED QUESTRAN. ONLY WANTED 1/4 PACKAGE.
--- NOTE | 2019-05-16 10:09 | Occupational Ther Daily Note ---
OT Current Status-Daily Note Subjective pt agreed to OT TX session with focus on increasing independence with ADLS/ functional transfers. pt complains of no pain. Mental Status/Objective Patient Orientation: Person, Place, Time, Situation Therapy Code Descriptions/Definitions Functional [place] Measure: 0=Not Assessed/NA 4=Minimal Assistance 1=Total Assistance 5=Supervision or Setup 2=Maximal Assistance 6=Modified [place] 3=Moderate Assistance 7=Complete [place] Comprehension(FIM): 7 Expression(FIM): 7 Social Interaction(FIM): 7 Problem Solving(FIM): 7 Memory(FIM): 7 ADL-Treatment Therapy Code Descriptions/Definitions Functional [place] Measure: 0=Not Assessed/NA 4=Minimal Assistance 1=Total Assistance 5=Supervision or Setup 2=Maximal Assistance 6=Modified [place] 3=Moderate Assistance 7=Complete [place] Therapy Quality Codes: 6 Independent with activity with or without an assistive device 5 Patient requires set up or clean up by helper. Patient completes activity by themselves 4 Supervision or touching assist (CGA). [place] provide cues , steadying assist 3 The helper provides less than half the effort to complete the activity 2 The helper provides more than half the effort to complete the activity 1 Dependent. The helper does all the effort to complete an activity 7 Patient refused to complete or attempt activity 9 The patient did not perform the activity before the current illness or injury 88 Not attempted due to Medical conditions or safety concerns Eating (FIM): 7 (does not wear dentures. (pt owns them but refuses to wear them) ) Eating (QC): 6 Grooming (FIM): 7 (seated at sink. ) Oral Hygiene (QC): 6 Bathing (FIM): 6 (9/9 body parts. seated on shower chair, use of GB to maintain balance while leaning side to side to wash buttock. ) Bathing Location: L Arm, R Arm, L Upper Leg, R Upper Leg, L Lower Leg (including foot), Chest, Abdomen, Buttocks, Perineal Area Shower/Bathe Self (QC): 6 Upper Body (FIM): 7 (gathered clothing from closet, set up bathroom. perform dressing and cleaned up bathroom. ) Upper Body Dressing (QC): 6 Lower Body Dressing (FIM): 6 (use of senior trainer) Lower Body Dressing (QC): 6 On/Off Footwear (QC): 7 Toileting (FIM): 7 (3/3 toileting tasks) Toileting Hygiene (QC): 6 Transfers (B, C, W/C) (FIM): 6 Toilet/Commode Transfer (FIM): 6 (use of GB) Toilet Transfer (QC): 6 Shower Transfer(FIM): 6 (use of GB, shower chair. ) pt completed all ADLs with good safety awareness noted use of GB for functional transfers and senior trainer for LB dressing. noted good activity tolerance. Other Treatment post ADLs pt demo ability to self propel w/c to gift shop approx 350 ft for IADL task. pt demo ability to perform functional mobility using W/c throughout gift shop in prep for shopping when returning home MOD I . pt them self propelled back to room approx 450 ft. opt sitting in w.c with L LE elevated secondary to increase edema, all needs met. Education OT Patient Education: Energy conservation, Modified ADL techniques, Progress toward Goal/Update tx plan, Purpose of tx/functional activities, Safety issues, Transfer techniques, Use of adapted equipment Teaching Recipient: Patient Teaching Methods: Demonstration, Discussion Response to Teaching: Verbalize Understanding, Return Demonstration OT Short Term Goals Short Term Goals Grooming(FIM): 5 Bathing(FIM): 5 Upper Body Dressing(FIM): 5 Lower Body Dressing(FIM): 5 Toileting(FIM): 5 Transfers (B,C,W/C) (FIM): 5 Toilet/Commode Transfer(FIM): 5 Shower Transfer(FIM): 5 1=Demonstrate adherence to instructed precautions during ADL tasks. 2=Patient will verbalize/demonstrate understanding of assistive devices/modifications for ADL. 3=Patient will improve strength/tolerance for activity to enable patient to perform ADL's. OT Assisted Goals It Help Desk Manager Goals Time Frame: Jun 08, 2019 Eating (FIM): 6 (MET) Eating (QC): 6 (MET) Groomin (MET) Oral Hygiene (QC): 6 (MET) Bathing(FIM): 6 (MET) Bathing Location: L Arm, R Arm, L Upper Leg, R Upper Leg, L Lower Leg (including foot), R Lower Leg (including foot), Chest, Abdomen, Buttocks, Perineal Area Shower/Bathe Self (QC): 6 (MET) Upper Body Dressing(FIM): 6 (MET) Upper Body Dressing (QC): 6 (MET) Lower Body Dressing(FIM): 6 (MET) Lower Body Dressing (QC): 6 (MET) On/Off Footwear (QC): 6 (MET) Toileting(FIM): 6 (MET) Toileting Hygiene (QC): 6 (MET) Transfers (B,C,W/C) (FIM): 6 (MET) Toilet/Commode Transfer(FIM): 6 (MET) Toilet/Commode Transfer (QC): 6 (MET) Shower Transfer(FIM): 6 (MET) Additional Goals: 1-Demonstrate ADL Tasks, 2-Verbalize Understanding, 3- ImproveStrength/Katlyn 1=Demonstrate adherence to instructed precautions during ADL tasks. 2=Patient will verbalize/demonstrate understanding of assistive devices/modifications for ADL. 3=Patient will improve strength/tolerance for activity to enable patient to perform ADL's. OT Education/Plan Problem List/Assessment pt presents with functional limitations affecting areas of ADLs and functional transfers with the above mention deficits. pt would benefit from skilled OT services to increase independence with ADLS/ functional transfers and for safe transition to home. Discharge Recommendations Plan/Recommendations: Continue POC Therapy D/C Recommendations: Home w/ Family Support Target Placement home with spouse Treatment Plan/Plan of Care Treatment,Training & Education: Yes Patient would benefit from OT for education, treatment and training to promote independence in ADL's, mobility, safety and/or upper extremity function for ADL's. Plan of Care: ADL Retraining, Caregiver Training, Concurrent Therapy, Functional Mobility, Group Exercise/Act as Ind, UE Funct Exercise/Act Treatment Duration: Jun 08, 2019 Frequency: At least 5 of 7 days/Wk (IRF) Estimated Hrs Per Day: 1 hour per day (60-90 minutes per day ) Agreement: Yes Rehab Potential: Good Time/GCodes Start Time: 09:15 Stop Time: 10:45 Billed Treatment Time ADL 75 minutes, 5 units FA 15 minutes, 1 unit PAWAN DIAZ OT May 16, 2019 10:09
--- NOTE | 2019-05-16 11:12 | Physical Therapy Daily Note ---
PT Daily Note-Current Subjective Agreeable. Happy to be going home tomorrow. Transfers Therapy Code Descriptions/Definitions Functional [place] Measure: 0=Not Assessed/NA 4=Minimal Assistance 1=Total Assistance 5=Supervision or Setup 2=Maximal Assistance 6=Modified [place] 3=Moderate Assistance 7=Complete [place] Therapy Quality Codes: 6 Independent with activity with or without an assistive device 5 Patient requires set up or clean up by helper. Patient completes activity by themselves 4 Supervision or touching assist (CGA). [place] provide cues , steadying assist 3 The helper provides less than half the effort to complete the activity 2 The helper provides more than half the effort to complete the activity 1 Dependent. The helper does all the effort to complete an activity 7 Patient refused to complete or attempt activity 9 The patient did not perform the activity before the current illness or injury 88 Not attempted due to Medical conditions or safety concerns Treatments Pt propelled himself 150 ft x 2 mod indep with turns incorporated and able to move about his room mod indep. Seated B LE ther ex x 15 each for AP left only, LAQ, hip flexion and hip abduct B. Pt in room to eat lunch post treatment. Assessment Current Status: Good Progress Progressing. PT Short Term Goals Short Term Goals Time Frame: May 18, 2019 Transfers (B,C,W/C) (FIM): 5 Gait (FIM): 2 Distance (FIM): 7=886-06 ft Gait Distance Comment: 50 ft Gait Level of Assist: 4 Gait Assistive Device: FWW Wheelchair Distance: 150' PT Fdc Goals Production Cook Goals PT Fdc Goals Time Frame: May 29, 2019 Transfers (B,C,W/C) (FIM): 6 (met) Sit to Lying (QC): 6 (met) Lying-Sitting on Side/Bed(QC): 6 (met) Sit to Stand (QC): 6 (met) Rollin (met) Roll Left to Right (QC): 6 (met) Chair/Kyr-ow-Rxquh Xfer(QC): 6 (met) Car Transfer (QC): 5 Does the Patient Walk: Yes Gait (FIM): 5 Gait distance (FIM): 4=950-50 ft Distance: 50 ft Walk 10 feet (QC): 6 Walk 10ft-Uneven Surface(QC): 5 Walk 50ft with 2 Turns (QC): 6 Walk 150 ft (QC): 9 Gait Assistive Device: FWW Does the Pt use WC or Scooter?: Yes Wheelchair (FIM): 6 (met) Wheelchair distance (FIM): 3=150 ft Wheel 50 feet with 2 turns (QC: 6 Stairs (FIM): 2 # of Steps: 4 1 Step (curb) (QC): 4 4 Steps (QC): 4 12 Steps (QC): 9 Picking up an Object (QC): 88 PT Plan Problem List Problem List: Activity Tolerance, Functional Strength, Safety Treatment/Plan Treatment Plan: Continue Plan of Care Treatment Plan: Bed Mobility, Education, Functional Activity Kat[place], Functional Strength, Group Therapy, Gait, Safety, Therapeutic Exercise, Transfers Treatment Duration: May 29, 2019 Frequency: At least 5 of 7 days/Wk (IRF) Estimated Hrs Per Day: 1.5 hours per day Patient and/or Family Agrees t: Yes Safety Risks/Education Patient Education: Safety Issues Teaching Recipient: Patient Teaching Methods: Discussion Response to Teaching: Return Demonstration Discharge Recommendations Therapy D/C Recommendations: Physical Therapy Home Care Time/GCodes Time In: 1055 Time Out: 1110 Total Billed Treatment Time: 15 Total Billed Treatment visit EX 15 RADHA FLORES PT May 16, 2019 11:12
--- NOTE | 2019-05-16 12:44 | Progress Note-Urology ---
Progress Note-Urology Progress Notes/Assess & Plan Progress/Assessment & Plan DOING WELL MITCHELL. WE WILL SEE PRN Final Diagnosis URINE RETENTION (RESOLVED) DORA MARINO MD May 16, 2019 12:43
--- NOTE | 2019-05-16 13:19 | Physical Therapy Daily Note ---
PT Daily Note-Current Subjective Patient agrees to PT. No c/o. Mental Status Patient Orientation: Normal For Age Transfers Therapy Code Descriptions/Definitions Functional [place] Measure: 0=Not Assessed/NA 4=Minimal Assistance 1=Total Assistance 5=Supervision or Setup 2=Maximal Assistance 6=Modified [place] 3=Moderate Assistance 7=Complete [place] Therapy Quality Codes: 6 Independent with activity with or without an assistive device 5 Patient requires set up or clean up by helper. Patient completes activity by themselves 4 Supervision or touching assist (CGA). [place] provide cues , steadying assist 3 The helper provides less than half the effort to complete the activity 2 The helper provides more than half the effort to complete the activity 1 Dependent. The helper does all the effort to complete an activity 7 Patient refused to complete or attempt activity 9 The patient did not perform the activity before the current illness or injury 88 Not attempted due to Medical conditions or safety concerns Transfers (B, C, W/C) (FIM): 6 Scootin Rollin Roll Left to Right (QC): 6 Supine to/from Sit: 6 Sit to/from Stand: 6 Sit to Lying (QC): 6 Sit to Stand (QC): 6 Chair/Mvz-jc-Fujiz Xfer(QC): 6 Bed to/from Chair: 6 Wheelchair Training Does the Pt Use a Wheelchair?: Yes Wheelchair (FIM): 6 Wheelchair Distance: 3=150 ft Distance: 200' x 2 Wheelchair Level of Assist: 6 Wheel 50 ft with 2 turns (QC): 6 Wheel 150 ft (QC): 6 Type of Wheelchair: Manual Assessment Patient is highly motivated with progress and is excited to return to home tomorrow. PT Short Term Goals Short Term Goals Time Frame: May 18, 2019 Transfers (B,C,W/C) (FIM): 5 Gait (FIM): 2 Distance (FIM): 7=515-95 ft Gait Distance Comment: 50 ft Gait Level of Assist: 4 Gait Assistive Device: FWW Wheelchair Distance: 150' PT Die Cast Supervisor Goals Detention Goals PT Detention Goals Time Frame: May 29, 2019 Transfers (B,C,W/C) (FIM): 6 (met) Sit to Lying (QC): 6 (met) Lying-Sitting on Side/Bed(QC): 6 (met) Sit to Stand (QC): 6 (met) Rollin (met) Roll Left to Right (QC): 6 (met) Chair/Dia-hc-Wocyr Xfer(QC): 6 (met) Car Transfer (QC): 5 Does the Patient Walk: Yes Gait (FIM): 5 Gait distance (FIM): 3=980-81 ft Distance: 50 ft Walk 10 feet (QC): 6 Walk 10ft-Uneven Surface(QC): 5 Walk 50ft with 2 Turns (QC): 6 Walk 150 ft (QC): 9 Gait Assistive Device: FWW Does the Pt use WC or Scooter?: Yes Wheelchair (FIM): 6 (met) Wheelchair distance (FIM): 3=150 ft Wheel 50 feet with 2 turns (QC: 6 Stairs (FIM): 2 # of Steps: 4 1 Step (curb) (QC): 4 4 Steps (QC): 4 12 Steps (QC): 9 Picking up an Object (QC): 88 PT Plan Treatment/Plan Treatment Plan: Continue Plan of Care Treatment Plan: Bed Mobility, Education, Functional Activity [place], Functional Strength, Group Therapy, Gait, Safety, Therapeutic Exercise, Transfers Treatment Duration: May 29, 2019 Frequency: At least 5 of 7 days/Wk (IRF) Estimated Hrs Per Day: 1.5 hours per day Patient and/or Family Agrees t: Yes Time/GCodes Time In: 1245 Time Out: 1300 Total Billed Treatment Time: 15 Total Billed Treatment 1 visit FA 15 min DHARMESH PAYNE PT May 16, 2019 13:19
[2019-05-16] MEDS: glipiZIDE 5 MG (GLUCOTROL) TAB PO SCH (16:35)
[2019-05-16 17:25] VITALS: BP 170/71
--- NOTE | 2019-05-16 18:00 | NUR ---
HYPERTENSIVE READING OF 170/71, BUT REPEATED AFTER 45 MINUTES AND NOW 152/72. AN UNEVENTFUL DAY. SECOND BM TODAY WAS FORMED.
[2019-05-16 18:05] VITALS: BP 152/72
[2019-05-16] MEDS: SERTRALINE 50 MG (ZOLOFT) TABLET PO SCH (20:52)
[2019-05-16] MEDS: TAMSULOSIN 0.4 MG (FLOMAX) CAP PO SCH (20:52)
[2019-05-16] MEDS: ATORVASTATIN 10 MG (LIPITOR) TABLET PO SCH (20:52)
[2019-05-16] MEDS: amLODIPine 10 MG (NORVASC) TAB PO SCH (20:52)
[2019-05-16] MEDS: ATENOLOL 50 MG (TENORMIN) TAB PO SCH (20:52)
[2019-05-17] MEDS: HYDROcodone/APAP 5 MG/325 MG (LORTAB) TAB PO PRN (04:33)
[2019-05-17] MEDS: inSUlin ASPART (NovoLOG) 1 UNIT/0.01 ML (CHARGE PER UNIT) SC SCH ×2 (05:25→12:05)
[2019-05-17 05:37] VITALS: BP 147/64
[2019-05-17] MEDS: CHOLESTYRAMINE 4 GM (QUESTRAN LITE, PREVALITE) PKT PO SCH (06:20)
[2019-05-17] MEDS: metFORMIN 500 MG (GLUCOPHAGE) TAB PO SCH (06:36)
[2019-05-17] MEDS: ENOXAPARIN 40 MG/0.4 ML (LOVENOX) SYR SC SCH (08:00)
[2019-05-17] MEDS: FINASTERIDE (PROSCAR) 5 MG TAB PO SCH (08:00)
[2019-05-17] MEDS: GABAPENTIN 300 MG (NEURONTIN) CAP PO SCH (08:00)
[2019-05-17] MEDS ORDERED: HYDR-3820 PO (12:02)
[2019-05-17] MEDS ORDERED: FINA5TAB PO (12:02)
[2019-05-17] MEDS ORDERED: CHOL4PAC3 PO (12:02)
--- NOTE | 2019-05-17 12:03 | Discharge Summary-Hospitalist ---
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 difficile [facility] Antigen & Toxins - Final, Complete Patient resulted labs reviewed. Pending Labs Laboratory Tests 05/17/19 05:16: Glucometer 91 05/17/19 11:11: Glucometer 172 Discharge Home Medications: Active Scripts Active Proscar (Finasteride) 5 Mg Tablet 5 Mg PO DAILY Prevalite Packet (Cholestyramine/Aspartame) 4 Gm Powd.pack 4 Gm PO BID WITH MEALS Hydrocodon-Acetaminophn 10-325 (Hydrocodone/Acetaminophen) 1 Each Tablet 1 Tab PO Q6H PRN Reported Calcium 600 + Vit D 200 Tablet (Calcium Carbonate/Vitamin D3) 1 Each Tablet 1 Tab PO DAILY Aspirin EC (Aspirin) 325 Mg Tablet.dr 325 Mg PO DAILY Flomax (Tamsulosin HCl) 0.4 Mg Cap 0.4 Mg PO HS Furosemide 20 Mg Tablet 20 Mg PO DAILY LAST FILLED 01-07-19 #90 Finasteride 5 Mg Tablet 5 Mg PO DAILY Alphagan P (Brimonidine Tartrate) 5 Ml Drops 1 Drop OU DAILY PRN Vitamin C (Ascorbate Calcium) 500 Mg Tablet 500 Mg PO DAILY Fish Oil 1,000 mg Softgel ([place]-3/Dha/Epa/Fish Oil) 1 Each Capsule 1,000 Mg PO BID Glipizide 10 Mg Tablet 10 Mg PO HS Lisinopril 20 Mg Tablet 40 Mg PO DAILY TAKES 2 (20MG) TABLETS Metformin HCl 1,000 Mg Tablet 1,000 Mg PO BID Gabapentin 300 Mg Capsule 300 Mg PO BID Sertraline HCl 50 Mg Tablet 50 Mg PO HS Pravastatin Sodium 40 Mg Tablet 40 Mg PO HS Atenolol 50 Mg Tablet 25 Mg PO HS TAKES 1/2 (50MG) TABLET Amlodipine Besylate 10 Mg Tablet 10 Mg PO HS Centrum Silver Tablet (Multivit-Min/FA/Lycopene/Lut) 1 Each Tablet 1 Tab PO DAILY Instructions to patient/family Please see electronic discharge instructions given to patient. Clinical Quality Measures DVT/VTE Risk/Contraindication: Risk Factor Score Per Nursin RFS Level Per Nursing on Admit: 4+=Very High AGATHA PAZ DO May 17, 2019 12:03
--- NOTE | 2019-05-17 12:07 | Discharge Summary ---
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 (4) Smoker Status: Chronic (5) COPD (chronic obstructive pulmonary disease) Status: Chronic Qualifiers: COPD type: unspecified COPD Qualified Codes: J44.9 - Chronic obstructive pulmonary disease, unspecified (6) Ischemic bowel disease Status: Acute (7) Right-sided abdominal pain of unknown cause Status: Resolved Resolution Date/Time: 05/10/19 @ 11:51 (8) Intractable nausea and vomiting Status: Resolved Qualifiers: Vomiting type: unspecified Qualified Codes: R11.2 - Nausea with vomiting, unspecified Resolution Date/Time: 05/10/19 @ 11:51 (9) Abdominal pain Status: Acute Qualifiers: Abdominal location: generalized Qualified Codes: R10.84 - Generalized abdominal pain (10) Anemia Status: Chronic Qualifiers: Anemia type: unspecified type Qualified Codes: D64.9 - Anemia, unspecified (11) Diabetes mellitus Status: Chronic Qualifiers: Diabetes mellitus type: type 2 Diabetes mellitus parts counterman insulin use: without parts counterman use Diabetes mellitus complication status: with other s pecified complication Qualified Codes: E11.69 - Type 2 diabetes mellitus with other specified complication 12. Diarrhea- maintain Imodium and Questran and negative C diff Discharge Summary Discharge Physical Examination Allergies: Coded Allergies: No Known Drug Allergies (Verified , 10/15/09) Vitals & I&Os Vital Signs Date Time Temp Pulse Resp B/P (MAP) Pulse Ox O2 Delivery O2 Flow Rate FiO2 05/17/19 14:23 70 22 147/64 93 Room Air 05/17/19 05:37 98.4 05/14/19 20:10 2.00 Hospital Course Was the Problem List Reviewed?: Yes Hospital Course: Pt had an uneventful six day hospital course after transfer from fourth floor due to small bowel resection due to ischemic bowel. He was admitted into inpatient rehab, participated in all therapies as required, was weaned off oxygen and bladder management was helped by Dr. Sal and voided well at time of discharge without catheterization needed. Questran was initiated for loose stools which helped tremendously and he will be going home on that. He had a normal BM yesterday. He declines any home health, he is back to his prior level of functioning. Labs (last 24 hrs) Laboratory Tests 05/11/19 15:32: Glucometer 123H 05/11/19 20:36: Glucometer 114H 05/12/19 05:14: Glucometer 97 05/12/19 11:46: Glucometer 99 05/12/19 15:40: Glucometer 85 05/12/19 20:57: Glucometer 120H 05/13/19 06:00: Glucometer 92 05/13/19 11:19: Glucometer 107 05/13/19 15:50: Glucometer 116H 05/13/19 20:12: Glucometer 136H 05/14/19 05:22: Glucometer 67L 05/14/19 10:56: Glucometer 84 05/14/19 15:37: Glucometer 108 05/14/19 20:55: Glucometer 135H 05/15/19 05:04: Glucometer 86 05/15/19 11:00: Glucometer 124H 05/15/19 15:31: Glucometer 138H 05/15/19 21:09: Glucometer 166H 05/16/19 05:40: White Blood Count 5.6, Red Blood Count 4.18L, Hemoglobin 12.1L, Hematocrit 37L, Mean Corpuscular Volume 89, Mean Corpuscular Hemoglobin 29, Mean Corpuscular Hemoglobin Concent 33, Red Cell Distribution Width 13.7, Platelet Count 255, Mean Platelet Volume 10.4, Neutrophils (%) (Auto) 59, Lymphocytes (%) (Auto) 24, Monocytes (%) (Auto) 10, Eosinophils (%) (Auto) 6, Basophils (%) (Auto) 1, Neutrophils # (Auto) 3.3, Lymphocytes # (Auto) 1.4, Monocytes # (Auto) 0.5, Eosinophils # (Auto) 0.4H, Basophils # (Auto) 0.1, Sodium Level 141, Potassium Level 4.1, Chloride Level 105, Carbon Dioxide Level 26, Anion Gap 10, Blood Urea Nitrogen 15, Creatinine 1.00, Estimat Glomerular Filtration Rate > 60, BUN/Creatinine Ratio 15, Glucose Level 82, Calcium Level 9.2, Corrected Calcium 9.5, Total Bilirubin 0.4, Aspartate Amino Transf (AST/SGOT) 32, Alanine Aminotransferase (ALT/SGPT) 23, Alkaline Phosphatase 74, Total Protein 6.5, Albumin 3.6 05/16/19 05:41: Glucometer 83 05/16/19 11:00: Glucometer 144H 05/16/19 15:26: Glucometer 145H 05/16/19 20:37: Glucometer 161H 05/17/19 05:16: Glucometer 91 05/17/19 11:11: Glucometer 172H Microbiology 05/13/19 C. difficile [facility] Antigen & Toxins - Final, Complete Pending Labs Microbiology Date/Time Source Procedure Growth Status 05/13/19 16:30 Stool C. difficile [facility] Antigen & Toxins - Final Complete Laboratory Tests 05/11/19 15:32: Glucometer 123 05/11/19 20:36: Glucometer 114 05/12/19 05:14: Glucometer 97 05/12/19 11:46: Glucometer 99 05/12/19 15:40: Glucometer 85 05/12/19 20:57: Glucometer 120 05/13/19 06:00: Glucometer 92 05/13/19 11:19: Glucometer 107 05/13/19 15:50: Glucometer 116 05/13/19 20:12: Glucometer 136 05/14/19 05:22: Glucometer 67 05/14/19 10:56: Glucometer 84 05/14/19 15:37: Glucometer 108 05/14/19 20:55: Glucometer 135 05/15/19 05:04: Glucometer 86 05/15/19 11:00: Glucometer 124 05/15/19 15:31: Glucometer 138 05/15/19 21:09: Glucometer 166 05/16/19 05:40: White Blood Count 5.6, Red Blood Count 4.18, Hemoglobin 12.1, Hematocrit 37, Mean Corpuscular Volume 89, Mean Corpuscular Hemoglobin 29, Mean Corpuscular Hemoglobin Concent 33, Red Cell Distribution Width 13.7, Platelet Count 255, Mean Platelet Volume 10.4, Neutrophils (%) (Auto) 59, Lymphocytes (%) (Auto) 24, Monocytes (%) (Auto) 10, Eosinophils (%) (Auto) 6, Basophils (%) (Auto) 1, Neutrophils # (Auto) 3.3, Lymphocytes # (Auto) 1.4, Monocytes # (Auto) 0.5, Eosinophils # (Auto) 0.4, Basophils # (Auto) 0.1, Sodium Level 141, Potassium Level 4.1, Chloride Level 105, Carbon Dioxide Level 26, Anion Gap 10, Blood Urea Nitrogen 15, Creatinine 1.00, Estimat Glomerular Filtration Rate > 60, BUN/Creatinine Ratio 15, Glucose Level 82, Calcium Level 9.2, Corrected Calcium 9.5, Total Bilirubin 0.4, Aspartate Amino Transf (AST/SGOT) 32, Alanine Aminotransferase (ALT/SGPT) 23, Alkaline Phosphatase 74, Total Protein 6.5, Albumin 3.6 05/16/19 05:41: Glucometer 83 05/16/19 11:00: Glucometer 144 05/16/19 15:26: Glucometer 145 05/16/19 20:37: Glucometer 161 05/17/19 05:16: Glucometer 91 05/17/19 11:11: Glucometer 172 Discharge Home Medications: Active Scripts Active Proscar (Finasteride) 5 Mg Tablet 5 Mg PO DAILY Prevalite Packet (Cholestyramine/Aspartame) 4 Gm Powd.pack 4 Gm PO BID WITH MEALS Hydrocodon-Acetaminophn 10-325 (Hydrocodone/Acetaminophen) 1 Each Tablet 1 Tab PO Q6H PRN Reported Aspirin EC (Aspirin) 325 Mg Tablet.dr 325 Mg PO DAILY Flomax (Tamsulosin HCl) 0.4 Mg Cap 0.4 Mg PO HS Furosemide 20 Mg Tablet 20 Mg PO DAILY LAST FILLED 01-07-19 #90 Finasteride 5 Mg Tablet 5 Mg PO DAILY Alphagan P (Brimonidine Tartrate) 5 Ml Drops 1 Drop OU DAILY PRN Vitamin C (Ascorbate Calcium) 500 Mg Tablet 500 Mg PO DAILY Fish Oil 1,000 mg Softgel ([place]-3/Dha/Epa/Fish Oil) 1 Each Capsule 1,000 Mg PO BID Glipizide 10 Mg Tablet 10 Mg PO HS Lisinopril 20 Mg Tablet 40 Mg PO DAILY TAKES 2 (20MG) TABLETS Metformin HCl 1,000 Mg Tablet 1,000 Mg PO BID Gabapentin 300 Mg Capsule 300 Mg PO BID Sertraline HCl 50 Mg Tablet 50 Mg PO HS Pravastatin Sodium 40 Mg Tablet 40 Mg PO HS Atenolol 50 Mg Tablet 25 Mg PO HS TAKES 1/2 (50MG) TABLET Amlodipine Besylate 10 Mg Tablet 10 Mg PO HS Centrum Silver Tablet (Multivit-Min/FA/Lycopene/Lut) 1 Each Tablet 1 Tab PO DAILY Instructions to patient/family Please see electronic discharge instructions given to patient. 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
--- NOTE | 2019-05-17 13:29 | Therapy Team Discharge Summary ---
Therapy Discharge Summary Discharge Recommendations Date of Discharge Therapy D/C Recommendations: Physical Therapy Home Care Occupational Therapy pt has made great progress while in inpt rehab. OT has focused on increasing independence with ADLS/ functional transfers, activity tolerance, increase activity tolerance/ endurance, use of DME/ AE and overall safety with functional tasks in sitting and standing. 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 suggest AE/ DME for home: beating machine operator.pt to d/c home with spouse. Decreased Activ Tolerance, Decreased UE Strength, Impaired Funct Balance, Impaired I ADL's, Impaired Self-Care Skills PT Group Home Goals Tourist Camp Attendant Goals PT Tourist Camp Attendant Goals Time Frame: May 29, 2019 Transfers (B,C,W/C) (FIM): 6 (met) Roll Left to Right (QC): 6 (met) Sit to Lying (QC): 6 (met) Lying-Sitting on Side/Bed(QC): 6 (met) Sit to Stand (QC): 6 (met) Chair/Zrg-pn-Dibzo Xfer(QC): 6 (met) Car Transfer (QC): 5 Does the Patient Walk: Yes Gait (FIM): 5 Gait distance (FIM): 3=430-75 ft Distance: 50 ft Walk 10 feet (QC): 6 Walk 10ft-Uneven Surface(QC): 5 Walk 50ft with 2 Turns (QC): 6 Walk 150 ft (QC): 9 Gait Assistive Device: FWW Does the Pt use WC or Scooter?: Yes Wheelchair (FIM): 6 (met) Wheelchair distance (FIM): 3=150 ft Wheel 50 feet with 2 turns (QC: 6 Stairs (FIM): 2 # of Steps: 4 1 Step (curb) (QC): 4 4 Steps (QC): 4 12 Steps (QC): 9 Picking up an Object (QC): 88 OT Group Home Goals Group Home Goals Time Frame: Jun 08, 2019 Eating (FIM): 6 (MET) Eating (QC): 6 (MET) Oral Hygiene (QC): 6 (MET) Grooming(FIM): 6 (MET) Bathing(FIM): 6 (MET) Bathing Location: L Arm, R Arm, L Upper Leg, R Upper Leg, L Lower Leg (including foot), R Lower Leg (including foot), Chest, Abdomen, Buttocks, Perineal Area Shower/Bathe Self (QC): 6 (MET) Upper Body Dressing(FIM): 6 (MET) Upper Body Dressing (QC): 6 (MET) Lower Body Dressing(FIM): 6 (MET) Lower Body Dressing (QC): 6 (MET) On/Off Footwear (QC): 6 (MET) Toileting(FIM): 6 (MET) Toileting Hygiene (QC): 6 (MET) Transfers (B,C,W/C) (FIM): 6 (MET) Toilet/Commode Transfer(FIM): 6 (MET) Toilet/Commode Transfer (QC): 6 (MET) Shower Transfer(FIM): 6 (MET) Additional Goals: 1-Demonstrate ADL Tasks, 2-Verbalize Understanding, 3- ImproveStrength/Katlyn 1=Demonstrate adherence to instructed precautions during ADL tasks. 2=Patient will verbalize/demonstrate understanding of assistive devic es/modifications for ADL. 3=Patient will improve strength/tolerance for activity to enable patient to perform ADL's. PAWAN DIAZ OT May 17, 2019 13:28
--- NOTE | 2019-05-17 14:16 | NUR ---
F/U with Dr. Evans on 05/24/19 at 0900. Patient and daughter informed. Verbalized understanding. F/U appointments scheduled with Dr. Garcia, Dr. Sal, and Dr. Henderson. See Discharge instructions for details. Per Dr. Henderson, leave luis intact. Will remove at F/U appointment.
[2019-05-17 14:23] VITALS: BP 147/64
== END 2019-05-17 14:16 | disposition home or self-care (01) | DRG 948 ==
PROVIDERS: ADMIT Internal Medicine; ATTEND Internal Medicine
DX: R53.81 Other malaise (principal); Z98.890 Other specified postprocedural states; Z90.49 Acquired absence of other specified parts of digestive tract; R19.7 Diarrhea, unspecified; R33.9 Retention of urine, unspecified; D64.9 Anemia, unspecified; J44.9 Chronic obstructive pulmonary disease, unspecified; R09.02 Hypoxemia; N28.9 Disorder of kidney and ureter, unspecified; E11.51 Type 2 diabetes mellitus with diabetic peripheral angiopathy without gangrene; E11.40 Type 2 diabetes mellitus with diabetic neuropathy, unspecified; I25.10 Atherosclerotic heart disease of native coronary artery without angina pectoris; I10 Essential (primary) hypertension; R11.2 Nausea with vomiting, unspecified; E78.00 Pure hypercholesterolemia, unspecified; F32.9 Major depressive disorder, single episode, unspecified; Z87.891 Personal history of nicotine dependence; Z89.611 Acquired absence of right leg above knee; Z95.0 Presence of cardiac pacemaker; Z95.1 Presence of aortocoronary bypass graft
CPT/HCPCS: 36415; 80053; 82962; 85025; 87324; 87449; 94640; 94760

== ENCOUNTER 2020-02-25 19:42 | Inpatient (IN) | payer MEDICARE ==
[~2020-02-25] VITALS: Ht 175.3 cm; Wt 102.8 kg
[~2020-02-25 19:42] MED LIST changes: +ACHYD1T PO; +CALC260T15 PO; -CALC260T6 PO; +CHOL4PAC3 PO; +FINA5TAB PO; -HYDR-3820 PO; -TAMS0.4C98 PO
[2020-02-25] MEDS ORDERED: NS IV 1000 ML 1,000 ML IV ONE (21:09)
[2020-02-25] MEDS ORDERED: ONDANSETRON 4 MG/2 ML (SDV) Z0FRAN IVP ONE (21:15)
--- NOTE | 2020-02-25 21:26 | Diagnostic Imaging Report ---
EXAMINATION: Chest 1 view. HISTORY: Fever. COMPARISON: Chest radiograph on 05/08/2019. FINDINGS: There is cardiomegaly with post-CABG changes noted. A left pectoral pacemaker is in place. The central pulmonary vasculature is mildly prominent. There is calcified aortic atherosclerotic plaque. Bibasilar opacities are seen. No large pleural effusion or pneumothorax. No acute osseous abnormality. IMPRESSION: 1. Cardiomegaly with central pulmonary vascular congestion. No overt pulmonary edema. 2. Bibasilar opacities, which may represent atelectasis, infection or edema. Dictated by: Dictated on workstation # [id number]
[2020-02-25 21:33] LABS: BASOPHILS % (AUTO) 0 % (0-10); EOSINOPHILS # (AUTO) 0.1 10^3/uL (0.0-0.3); EOSINOPHILS % (AUTO) 1 % (0-10); HEMATOCRIT 40 % (40-54); HEMOGLOBIN 13.2 G/DL (13.3-17.7); INR 1.1 (0.8-1.4); LYMPHOCYTES # (AUTO) 1.3 X 10^3 (1.0-4.0); LYMPHOCYTES % (AUTO) 16 % (12-44); MEAN CORPUSCULAR HEMOGLOBIN 30 PG (25-34); MEAN CORPUSCULAR HGB CONC 33 G/DL (32-36); MEAN CORPUSCULAR VOLUME 90 FL (80-99); MEAN PLATELET VOLUME 10.8 FL (7.4-10.4); MONOCYTES # (AUTO) 0.3 X 10^3 (0.0-1.0); MONOCYTES % (AUTO) 4 % (0-12); NEUTROPHILS % (AUTO) 78 % (42-75); PLATELET COUNT 202 10^3/uL (130-400); PROTHROMBIN TIME PATIENT 14.4 SEC (12.2-14.7); RED CELL DISTRIBUTION WIDTH 14.3 % (10.0-14.5); WHITE BLOOD COUNT 7.7 10^3/uL (4.3-11.0)
[2020-02-25 21:44] LABS: BILIRUBIN,TOTAL 0.4 MG/DL (0.1-1.0); CALCIUM 8.9 MG/DL (8.5-10.1); CREATININE SERUM 1.9 MG/DL (0.60-1.30); POTASSIUM 4.4 MMOL/L (3.6-5.0); TOTAL PROTEIN 6.9 GM/DL (6.4-8.2)
[2020-02-25] MEDS ORDERED: PIPERACILLIN SODIUM/TAZOBACTAM 4.5 GM in NS (IVPB) 100 ML IV ONE (21:45)
[2020-02-25] MEDS ORDERED: NS IV 1000 ML 1,000 ML IV SCH (22:07)
[2020-02-25] MEDS ORDERED: fentaNYL INJECTION 100 MCG/2 ML AMP IVP ONE (22:15)
--- NOTE | 2020-02-25 22:20 | NUR ---
pt covid swabbed per dr. damon
[2020-02-25 22:30] LABS: ERYTHROCYTE SEDIMENTATION RATE 10 MM/HR (0-30)
[2020-02-25] MEDS ORDERED: LACTATED RINGERS 1,000 ML IV ONE (22:55)
[2020-02-25] MEDS ORDERED: fentaNYL INJECTION 100 MCG/2 ML AMP IVP PRN (23:15)
[2020-02-25] MEDS ORDERED: HYDROcodone/APAP 5 MG/325 MG (LORTAB) TAB PO ONE (23:15)
--- NOTE | 2020-02-25 23:36 | ED General ---
General Chief Complaint: Abdominal/GI Problems Stated Complaint: SOB,COUGH, FEVER,N/V Nursing Triage Note: PT PRESENTS TO THE ED C/O NV AND HARD STOOL W/FEVER THAT ONSET 48 HRS AGO. PT VERBALIZES SPARCE COUGH, NON PRODUCTIVE. STATES HE HAS BEEN UNABLE TO LAY FLAT WHILE SLEEPING FOR SEVERAL DAYS Nursing Sepsis Screen: No Definite Risk Source of Information: Patient Exam Limitations: No Limitations History of Present Illness Date Seen by Provider: Feb 25, 2020 Time Seen by Provider: 20:09 Initial Comments This 84-year-old gentleman presents to the emergency room with multiple complaints including 2 days of fever, minimal dry cough and extreme nausea. He denies any chest or abdominal pain. He denies shortness of breath. He reports his temperature at home was 102.8 before Tylenol or naproxen. He is now afebrile. He denies any exposures to coronavirus or persons under investigation. He has not traveled. He spends most of his time at home or in his yard and has minimal interactions with others. He does have risk factors including age and diabetes. He has had some neck, shoulder, and upper back pain for a month. He has some difficulty lying flat. 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 He recently established care with Dr. Rawls at [facility]. He reports sometimes having mid left abdominal pain after eating. 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 He is not having pain at present. Patient's blood pressure is low normotensive. He has been nauseated the last couple of days and also takes diuretics. Allergies and Home Medications Allergies Coded Allergies: No Known Drug Allergies (Verified , 10/15/09) Home Medications Amlodipine Besylate 10 Mg Tablet, 10 MG PO HS, (Reported) Ascorbate Calcium 500 Mg Tablet, 500 MG PO DAILY, (Reported) Aspirin 325 Mg Tablet.dr, 325 MG PO DAILY, (Reported) Atenolol 50 Mg Tablet, 25 MG PO HS, (Reported) TAKES 1/2 (50MG) TABLET Brimonidine Tartrate 5 Ml Drops, 1 DROP OU DAILY PRN for EYE IRRITATION, (Reported) Calcium Carbonate/Vitamin D3 1 Each Tablet, 1 TAB PO DAILY, (Reported) Cholestyramine/Aspartame 4 Gm Powd.pack, 4 GM PO BID WITH MEALS Prescribed by: AGATHA PAZ on 05/17/19 1202 Finasteride 5 Mg Tablet, 5 MG PO DAILY, (Reported) Finasteride 5 Mg Tablet, 5 MG PO DAILY Prescribed by: AGATHA PAZ on 05/17/19 1202 Furosemide 20 Mg Tablet, 20 MG PO DAILY, (Reported) LAST FILLED 01-07-19 #90 Gabapentin 300 Mg Capsule, 300 MG PO BID, (Reported) Glipizide 10 Mg Tablet, 10 MG PO HS, (Reported) Hydrocodone Bit/Acetaminophen 1 Each Tablet, 1 TAB PO Q6H PRN for PAIN-MODERATE Prescribed by: AGATHA PAZ on 05/17/19 1202 Lisinopril 20 Mg Tablet, 40 MG PO DAILY, (Reported) TAKES 2 (20MG) TABLETS Metformin HCl 1,000 Mg Tablet, 1,000 MG PO BID, (Reported) Multivit-Min/FA/Lycopene/Lut 1 Each Tablet, 1 TAB PO DAILY, (Reported) [place]-3/Dha/Epa/Fish Oil 1 Each Capsule, 1,000 MG PO BID, (Reported) Pravastatin Sodium 40 Mg Tablet, 40 MG PO HS, (Reported) Sertraline HCl 50 Mg Tablet, 50 MG PO HS, (Reported) Tamsulosin HCl 0.4 Mg Cap, 0.4 MG PO HS, (Reported) Patient Home Medication List Home Medication List Reviewed: Yes Review of Systems Review of Systems Constitutional: see HPI EENTM: no symptoms reported Respiratory: see HPI Cardiovascular: no symptoms reported Gastrointestinal: see HPI Genitourinary: no symptoms reported Past Hjctrbj-Lvpuvy-Dgihvx Hx Past Med/Social Hx: Reviewed Nursing Past Med/Soc Hx Patient Social History Alcohol Use: Denies Use Recreational Drug Use: No Type Used: Cigars 2nd Hand Smoke Exposure: Yes Recent Foreign Travel: No Contact w/Someone Who Travel: No Recent Infectious Disease Expo: No Recent Hopitalizations: Yes (COLON RESECTION 05-17) Physical Abuse: No Sexual Abuse: No Mistreated: No Fear: No Immunizations Up To Date Tetanus Booster (TDap): Unknown Date of Pneumonia Vaccine: Sep 29, 2012 Seasonal Allergies Seasonal Allergies: No Past Medical History Surgeries: Yes (CABG; RIGHT BKA; RIGHT LEG ARTERY BYPASS; PACEMAKER X 2) Amputation, Cardiac, CABG, Eye Surgery, Orthopedic, Pacemaker, Vascular Surgery Respiratory: Yes Pneumonia Currently Using CPAP: No Currently Using BIPAP: No Cardiac: Yes (CABG; PACEMAKER) Coronary Artery Disease, High Cholesterol, Hypertension, Peripheral Vascular Neurological: Yes Headaches /Migraines, Neuropathy Reproductive Disorders: No Genitourinary: Yes Prostate Problems Gastrointestinal: Yes Chronic Constipation 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, Non-Insulin dep HEENT: Yes Cataract Loss of Vision: Denies Hearing Impairment: Hard of Hearing Cancer: No Psychosocial: Yes Depression Integumentary: No Blood Disorders: No Adverse Reaction/Blood Tranf: No Family Medical History Reviewed Nursing Family Hx Diabetes mellitus GRANDMOTHER FH: leukemia G8 BROTHER Testicular cancer 19 FATHER No Pertinent Family Hx Physical Exam-Suspected Sepsis Physical Exam Vital Signs Vital Signs - First Documented 02/25/20 21:22 Temp 37.7 Pulse 70 Resp 20 B/P (MAP) 104/61 (75) Pulse Ox 97 O2 Delivery Room Air Capillary Refill : Less Than 3 Seconds Blood Pressure Mean: 60 Height, Weight, BMI Height: 5'9.00" Weight: 226lbs. 9.6oz. 102.646977ls; 33.00 BMI Method:Stated General Appearance: No Apparent Distress, WD/WN HEENT: PERRL/EOMI, Normal ENT Inspection, Pharynx Normal Neck: Normal Inspection; No JVD Respiratory: Lungs Clear, Normal Breath Sounds, No Accessory Muscle Use, No Respiratory Distress Cardiovascular: Regular Rate, Rhythm, No Edema, No Murmur, Normal Peripheral Pulses Gastrointestinal: Normal Bowel Sounds, No Organomegaly, Soft Extremity: Normal Inspection, Non Tender, No Pedal Edema, Other (right BKA) Neurologic/Psychiatric: Alert, Oriented x3, No Motor/Sensory Deficits, Normal Mood/Affect, formula technician II-XII Norm as Tested Skin: normal color, warm/dry Focused Exam Reason for ruling out sepsis: sepsis unlikely given the normal CRP and pro- calcitonin Possible Source: Pulmonary Lactate Level 02/25/20 21:13: Lactic Acid Level 2.39*H 02/26/20 00:26: Time of Focused Exam: 23:20 Respiratory: Lungs Clear, Normal Breath Sounds, No Accessory Muscle Use, No Respiratory Distress Cardiovascular: Regular Rate, Rhythm, No Edema, No Murmur Capillary Refill: Less Than 3 Seconds Skin: normal color, warm/dry Lactic Acid Level Laboratory Tests Test 02/25/20 21:13 02/26/20 00:26 Lactic Acid Level 2.39 MMOL/L (0.50-2.00) *H Within 3hrs of presentation: Admin fluids, Admin ABX, Blood cultures prior to ABX's, Focus exam, Lactate level Progress/Results/Core Measures Suspected Sepsis Recent Fever Within 48 Hours: Yes Infection Criteria Present: Suspected New Infection New/Unexplained Altered Menta: No Sepsis Screen: No Definite Risk SIRS Temperature: Pulse: 70 Respiratory Rate: 20 Laboratory Tests 02/25/20 21:06: White Blood Count 7.7 Blood Pressure 95 /43 Mean: 60 02/25/20 21:13: Lactic Acid Level 2.39*H 02/26/20 00:26: Laboratory Tests 02/25/20 21:06: Creatinine 1.90H, INR Comment 1.1, Platelet Count 202, Total Bilirubin 0.4 Results/Orders Lab Results Laboratory Tests Test 02/25/20 20:52 02/25/20 21:06 02/25/20 21:13 02/26/20 00:26 Range/Units Group A Streptococcus Screen NEGATIVE NEGATIVE White Blood Count 7.7 4.3-11.0 10^3/uL Red Blood Count 4.45 4.35-5.85 10^6/uL Hemoglobin 13.2 L 13.3-17.7 G/DL Hematocrit 40 40-54 % Mean Corpuscular Volume 90 80-99 FL Mean Corpuscular Hemoglobin 30 25-34 PG Mean Corpuscular Hemoglobin Concent 33 32-36 G/DL Red Cell Distribution Width 14.3 10.0-14.5 % Platelet Count 202 130-400 10^3/uL Mean Platelet Volume 10.8 H 7.4-10.4 FL Neutrophils (%) (Auto) 78 H 42-75 % Lymphocytes (%) (Auto) 16 12-44 % Monocytes (%) (Auto) 4 0-12 % Eosinophils (%) (Auto) 1 0-10 % Basophils (%) (Auto) 0 0-10 % Neutrophils # (Auto) 6.0 1.8-7.8 X 10^3 Lymphocytes # (Auto) 1.3 1.0-4.0 X 10^3 Monocytes # (Auto) 0.3 0.0-1.0 X 10^3 Eosinophils # (Auto) 0.1 0.0-0.3 10^3/uL Basophils # (Auto) 0.0 0.0-0.1 10^3/uL Erythrocyte Sedimentation Rate 10 0-30 MM/HR Prothrombin Time 14.4 12.2-14.7 SEC INR Comment 1.1 0.8-1.4 Activated Partial Thromboplast Time 27 24-35 SEC Sodium Level 138 135-145 MMOL/L Potassium Level 4.4 3.6-5.0 MMOL/L Chloride Level 102 98-107 MMOL/L Carbon Dioxide Level 23 21-32 MMOL/L Anion Gap 13 5-14 MMOL/L Blood Urea Nitrogen 33 H 7-18 MG/DL Creatinine 1.90 H 0.60-1.30 MG/DL Estimat Glomerular Filtration Rate 34 BUN/Creatinine Ratio 17 Glucose Level 275 H 70-105 MG/DL Calcium Level 8.9 8.5-10.1 MG/DL Corrected Calcium 8.9 8.5-10.1 MG/DL Total Bilirubin 0.4 0.1-1.0 MG/DL Aspartate Amino Transf (AST/SGOT) 16 5-34 U/L Alanine Aminotransferase (ALT/SGPT) 14 0-55 U/L Alkaline Phosphatase 78 40-136 U/L Lactate Dehydrogenase 195 125-220 U/L C-Reactive Protein High Sensitivity 0.43 0.00-0.50 MG/DL B-Type Natriuretic Peptide 136.2 H <100.0 PG/ML Total Protein 6.9 6.4-8.2 GM/DL Albumin 4.0 3.2-4.5 GM/DL Procalcitonin 0.10 H <0.10 NG/ML Lactic Acid Level 2.39 *H 0.50-2.00 MMOL/L Micro Results Microbiology 02/25/20 Influenza Types A,B Antigen (LORI) - Final, Complete My Orders Orders - DARLEEN FIELDS MD Cbc With Automated Diff (02/25/20 20:09) Comprehensive Metabolic Panel (02/25/20 20:09) Blood Culture (02/25/20 20:09) Sputum Culture (02/25/20 20:09) Urinalysis (02/25/20 20:09) Urine Culture (02/25/20 20:09) Protime With Inr (02/25/20 20:09) Partial Thromboplastin Time (02/25/20 20:09) Chest 1 View, Ap/Pa Only (02/25/20 20:09) Ed Iv/Invasive Line Start (02/25/20 20:09) Ed Iv/Invasive Line Start (02/25/20 20:09) Vital Signs Adult Sepsis Patie Q15M (02/25/20 20:09) O2 (02/25/20 20:09) Remove Rings In Anticipation O (02/25/20 20:09) Lactic Acid Analyzer (02/25/20 20:09) Influenza A And B Antigens (02/25/20 20:09) Ferritin (02/25/20 20:46) Procalcitonin (Pct) (02/25/20 20:46) Hs C Reactive Protein (02/25/20 20:46) Erythrocyte Sedimentation Rate (02/25/20 20:46) LDH (02/25/20 20:46) Rapid Strep A Screen (02/25/20 20:46) Ns Iv 1000 Ml (Sodium Chloride 0.9%) (02/25/20 21:09) BNP (02/25/20 21:09) Ondansetron Injection (Zofran Injectio (02/25/20 21:15) Piperacillin Sodium/Tazobactam (Zosyn Vi (02/25/20 21:45) Ns Iv 1000 Ml (Sodium Chloride 0.9%) (02/25/20 22:07) Fentanyl Injection (Sublimaze Injection (02/25/20 22:15) Lactated Ringers (Lr 1000 Ml Iv Solution (02/25/20 22:55) Hydrocodone/Apap 5/325 Tablet (Lortab 5 (02/25/20 23:15) Fentanyl Injection (Sublimaze Injection (02/25/20 23:15) Medications Given in ED Current Medications Medications Dose Ordered Sig/Abbie Route Start Time Stop Time Status Last Admin Dose Admin Acetaminophen/ Hydrocodone Bitart 1 tab ONCE ONCE PO 02/25/20 23:15 02/25/20 23:16 DC 02/25/20 23:13 1 TAB Fentanyl Citrate 25 mcg ONCE ONCE IVP 02/25/20 22:15 02/25/20 22:16 DC 02/25/20 22:17 25 MCG Fentanyl Citrate 25 mcg ONCE PRN IVP 02/25/20 23:15 02/25/20 23:13 25 MCG Lactated Ringer's 1,000 ml @ 0 mls/hr Q0M ONCE IV 02/25/20 22:55 02/25/20 22:57 DC 02/25/20 23:09 1,000 MLS/HR Ondansetron HCl 8 mg ONCE ONCE IVP 02/25/20 21:15 02/25/20 21:16 DC 02/25/20 21:22 8 MG Piperacillin Sod/ Tazobactam Sod 4.5 gm/Sodium Chloride 100 ml @ 200 mls/hr ONCE ONCE IV 02/25/20 21:45 02/25/20 22:14 DC 02/25/20 22:18 200 MLS/HR Sodium Chloride 1,000 ml @ 0 mls/hr Q0M ONCE IV 02/25/20 21:09 02/25/20 21:10 DC 02/25/20 21:22 1,000 MLS/HR Vital Signs/I&O 02/25/20 02/25/20 21:22 21:41 Temp 37.7 37.7 Pulse 70 70 Resp 20 20 B/P (MAP) 104/61 (75) 95/43 Pulse Ox 97 100 O2 Delivery Room Air 02/26/20 00:00 Intake Total 1100 ml Balance 1100 ml Capillary Refill : Less Than 3 Seconds Blood Pressure Mean: 60 Progress Note #1: Time: 23:30 Progress Note Patient did not have fever in the emergency room but he reported a temperature greater than 102 at home prior to taking Tylenol and naproxen. He reported fever, extreme nausea, mild dry cough, and mild headache. He denied any chest pain or shortness of breath. He denied any abdominal pain or tenderness. Septic workup was pursued. No source of infection was found. Urinalysis was still pending at the time of admission. Chest x-ray showed questionable infiltrate in the bases. I do not think he truly has pneumonia because the pro-calcitonin and CRP are both low. However, we are treating him with Zosyn as a precaution. Patient had a low normal blood pressures and some hypotensive measurements. I believe some of these were indeed artifactual as the cuff he was wearing was too small. After 2 L of fluid and replacement of the cuff he had normal blood pressure. He isn't presently receiving a third liter of IV fluid. Lactic acid was minimally elevated which likely represents hypovolemia. His creatinine is elevated which would support hypovolemia and renal failure, likely secondary to the extreme nausea he's had over the last 2 days. Patient was experiencing some severe phantom pain at his amputation site. He was given 2 doses of fentanyl 25 g each as well as hydrocodone. He normally takes hydrocodone for that pain at home. Nausea was treated with Zofran. After receiving pain medications and dozing off, patient's oxygen saturation dipped as low as 88 percent. Nasal cannula was applied. COVID-19 testing was performed because of patient's respiratory symptoms and absence of other cause. Progress Note #2: Time: 00:40 Progress Note Patient's systolic blood pressure was stable at 118 prior to transfer to ICU. Diagnostic Imaging Diagonstic Imaging: Xray Plain Films/CT/US/NM/MRI: chest Comments Chest x-ray viewed by me and report reviewed. See report below: NAME: JOSE ADKINS [facility] REC#: [id number] PT STATUS: REG ER : 1935 PHYSICIAN: DARLEEN FIELDS MD ADMIT DATE: 02/25/20/ER Signed Date of Exam:02/25/20 CHEST 1 VIEW, AP/PA ONLY EXAMINATION: Chest 1 view. HISTORY: Fever. COMPARISON: Chest radiograph on 05/08/2019. FINDINGS: There is cardiomegaly with post-CABG changes noted. A left pectoral pacemaker is in place. The central pulmonary vasculature is mildly prominent. There is calcified aortic atherosclerotic plaque. Bibasilar opacities are seen. No large pleural effusion or pneumothorax. No acute osseous abnormality. IMPRESSION: 1. Cardiomegaly with central pulmonary vascular congestion. No overt pulmonary edema. 2. Bibasilar opacities, which may represent atelectasis, infection or edema. Dictated by: Dictated on workstation # [id number] Dict: 02/25/202122 Trans: 02/25/202125 [facility] [id number] Interpreted by: NANCI MILLAN DO Electronically signed by: NANCI MILLAN DO 02/25/202125 Departure Communication (Admissions) Time/Spoke to Admitting Phy: 23:27 Dr. Paz Impression Primary Impression: Febrile illness Additional Impressions: Acute renal failure Qualified Codes: N17.9 - Acute kidney failure, unspecified Hypovolemia Pulmonary infiltrate Nausea Disposition: ADMITTED INPATIENT Condition: Improved Admissions Decision to Admit Reason: Admit from ER (General) Decision to Admit/Date: Feb 25, 2020 Time/Decision to Admit Time: 23:00 Departure-Patient Inst. Referrals: NO,LOCAL PHYSICIAN (PCP/Family) Primary Care Physician Copy Copies To 1: PAULA ROBERTS JOSHUA T MD Feb 25, 2020 23:36
--- OUTSIDE RECORDS SUMMARY | 2020-02-25 23:53 | XMS REPORT | Continuity of Care Document ---
Author Organization Unknown Address Unknown Phone Unavailable Allergies Active Description Code Type Severity Reaction Onset Reported/Identified Relationship to Patient Clinical Status Yes NONE NONE Mild N/A 01/18/2007 Yes No Known Drug Allergies [id number] Drug Allergy Unknown N/A 10/15/2009 Medications There is no data. Problems Date Dx Coded Attending Type Code Diagnosis Diagnosed By 04/10/2011 Ot 250.00 BETI B TATIANA WO COMPL, TYPE II OR UNSPEC TY 04/10/2011 Ot 276.50 VOL UME DEPLETION, UNSPECIFIED 04/10/2011 Ot 401.9 HYPE RTENSION NOS 04/10/2011 Ot 784.0 HEAD ACHE 04/10/2011 Ot 787.03 VOM ITING ALONE 04/10/2011 Ot 789.09 ABD OMINAL PAIN, OTHER SPECIFIED SITE 04/10/2011 Ot V58.69 OTH MED,LT,CURRENT USE 04/14/2011 Ot 250.02 BETI B TATIANA WO COMPL, TYPE II OR UNSPEC TY 04/14/2011 Ot 272.4 HYPE RLIPIDEMIA NEC/NOS 04/14/2011 Ot 276.51 DEH YDRATION 04/14/2011 Ot 368.13 VIS UAL DISCOMFORT 04/14/2011 Ot 401.9 HYPE RTENSION NOS 04/14/2011 Ot 558.9 SHANELLE NF GASTROENTERIT NEC 04/14/2011 Ot 564.00 UNS PEC CONSTIPATION 04/14/2011 Ot 723.5 TORT ICOLLIS NOS 04/14/2011 Ot 784.0 HEAD ACHE 04/14/2011 Ot V15.81 HX OF PAST NONCOMPLIANCE 04/14/2011 Ot V15.82 HIS TORY OF TOBACCO USE 04/14/2011 Ot V17.3 FAM HX-ISCHEM HEART DIS 12/12/2011 Ot 276.50 VOL UME DEPLETION, UNSPECIFIED 12/12/2011 Ot 787.03 VOM ITING ALONE 05/15/2012 Ot 250.62 BETI B W NEURO MANIFEST, TYPE II OR UNSPEC 05/15/2012 Ot 272.4 HYPE RLIPIDEMIA NEC/NOS 05/15/2012 Ot 273.8 DIS PLAS PROTEIN MET NEC 05/15/2012 Ot 285.1 AC P OSTHEMORRHAG ANEMIA 05/15/2012 Ot 285.9 ANEM IA NOS 05/15/2012 Ot 357.2 NEUR OPATHY IN DIABETES 05/15/2012 Ot 401.9 HYPE RTENSION NOS 05/15/2012 Ot 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, NATIV 05/15/2012 Ot 440.24 ATH EROSCL [place] ARTERIES EXTREMITIES W 05/15/2012 Ot 599.0 URIN TRACT INFECTION NOS 05/15/2012 Ot 681.10 MACIE LULITIS, TOE NOS 05/15/2012 Ot 707.05 PRE SSURE ULCER, BUTTOCK 05/15/2012 Ot 707.07 PRE SSURE ULCER, HEEL 05/15/2012 Ot 707.21 PRE SSURE ULCER, STAGE I 05/15/2012 Ot 730.27 OST EOMYELITIS NOS-ANKLE 05/15/2012 Ot 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 05/15/2012 Ot V15.82 HIS TORY OF TOBACCO USE 05/15/2012 Ot V45.81 AOR TOCORONARY BYPASS 06/09/2012 Ot 250.60 BETI B W NEURO MANIFEST, TYPE II OR UNSPEC 06/09/2012 Ot 272.4 HYPE RLIPIDEMIA NEC/NOS 06/09/2012 Ot 276.8 HYPO POTASSEMIA 06/09/2012 Ot 285.9 ANEM IA NOS 06/09/2012 Ot 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 06/09/2012 Ot 311 DEPRES SIVE DISORDER NEC 06/09/2012 Ot 357.2 NEUR OPATHY IN DIABETES 06/09/2012 Ot 401.9 HYPE RTENSION NOS 06/09/2012 Ot 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, NATIV 06/09/2012 Ot 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 06/09/2012 Ot 564.00 UNS PEC CONSTIPATION 06/09/2012 Ot 600.01 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 06/09/2012 Ot 682.2 CELL ULITIS OF TRUNK 06/09/2012 Ot 707.03 PRE SSURE ULCER, LOWER BACK 06/09/2012 Ot 707.23 PRE SSURE ULCER, STAGE III 06/09/2012 Ot 788.20 RET ENTION OF URINE NOS 06/09/2012 Ot 998.59 OTH POSTOPER INFECTION 06/09/2012 Ot V45.81 AOR TOCORONARY BYPASS 06/09/2012 Ot V49.75 BEL OW KNEE AMPUTATION STATUS 06/09/2012 Ot V57.1 PHYS ICAL THERAPY NEC 06/09/2012 Ot V57.21 ENC OUNTER FOR OCCUPATIONAL THERAPY 06/09/2012 Ot V58.67 SAM G-TERM (CURRENT) USE OF INSULIN 06/09/2012 Ot V58.73 AFT ERCARE POST SURGERY CIRULATORY SYSTEM 10/03/2012 Ot V49.75 BEL OW KNEE AMPUTATION STATUS 10/03/2012 Ot V57.1 PHYS ICAL THERAPY NEC 01/03/2013 Ot V49.75 BEL OW KNEE AMPUTATION STATUS 01/03/2013 Ot V57.1 PHYS ICAL THERAPY NEC 10/05/2013 HAZEL TAYLOR ACCESS SPEC Ot 466 .0 ACUTE BRONCHITIS 10/05/2013 HAZEL TAYLOR ACCESS SPEC Ot 786 .2 COUGH 10/19/2013 INÉS WILLAMS MD Ot V49. 75 BELOW KNEE AMPUTATION STATUS 10/19/2013 INÉS WILLAMS MD Ot V57. 1 PHYSICAL THERAPY NEC 02/16/2014 REHANA VICK, WENDY [...] V67.09 09/09/2015 ЕКАТЕРИНА VICK, INÉS R Ot E11. 65 TYPE 2 DIABETES MELLITUS WITH HYPERGLYCE 09/09/2015 ЕКАТЕРИНА VICK, INÉS R Ot I10 ESSENTIAL (PRIMARY) HYPERTENSION 09/09/2015 ЕКАТЕРИНА VICK, INÉS R Ot I25. 10 ATHSCL HEART DISEASE OF [place] CORONARY 09/09/2015 ЕКАТЕРИНА VICK, INÉS R Ot I50. 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 9 09/09/2015 ЕКАТЕРИНА VICK, INÉS R Ot I63. 9 CEREBRAL INFARCTION, UNSPECIFIED 09/09/2015 ЕКАТЕРИНА VICK, INÉS R Ot J18. 9 09/09/2015 ЕКАТЕРИНА VICK, INÉS R Ot K59. 00 CONSTIPATION, UNSPECIFIED 09/09/2015 ЕКАТЕРИНА VICK, INÉS R Ot R11. 2 09/09/2015 ЕКАТЕРИНА VICK, INÉS R Ot R42 09/09/2015 ЕКАТЕРИНА VICK, INÉS R Ot R51 09/09/2015 INÉS WILLAMS MD Ot Z23 ENCOUNTER FOR IMMUNIZATION 09/09/2015 INÉS WILLAMS MD Ot Z72. 0 TOBACCO USE 09/09/2015 INÉS WILLAMS MD Ot Z89.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 09/09/2015 INÉS WILLAMS MD Ot Z91. 11 PATIENT'S NONCOMPLIANCE WITH DIETARY REG 09/09/2015 INÉS WILLAMS MD Ot Z95. 0 PRESENCE OF CARDIAC PACEMAKER 09/09/2015 INÉS WILLAMS MD Ot Z95. 1 PRESENCE OF AORTOCORONARY BYPASS GRAFT 09/09/2015 INÉS [...] Ot V67.09 11/25/2015 HIRAM FRAZIER DO Ot S00.512 A ABRASION OF ORAL CAVITY, INITIAL ENCOUNT 11/25/2015 HIRAM FRAZIER DO Ot X58.XXX A EXPOSURE TO OTHER SPECIFIED FACTORS, INI 11/25/2015 HIRAM FRAZIER DO Ot Y92.[address] [facility] [address] (PRIVATE 11/25/2015 HIRAM FRAZIER DO Ot [...] V49.75 01/06/2016 Ot V67.09 03/18/2016 Ot 244.9 HYPO THYROIDISM NOS 03/18/2016 Ot V49.75 BEL OW KNEE AMPUTATION STATUS 03/18/2016 Ot V67.09 L[facility]Y[place] FLOYD FOLLOW- UP, OTHER SURGERY 07/30/2016 Ot 250.00 BEIT B TATIANA WO COMPL, TYPE II OR UNSPEC TY 07/30/2016 Ot 276.50 VOL UME DEPLETION, UNSPECIFIED 07/30/2016 Ot 401.9 HYPE RTENSION NOS 07/30/2016 Ot 784.0 HEAD ACHE 07/30/2016 Ot 787.03 VOM ITING ALONE 07/30/2016 Ot 789.09 ABD OMINAL PAIN, OTHER SPECIFIED SITE 07/30/2016 Ot V58.69 OTH MED,LT,CURRENT USE 09/16/2016 Ot 244.9 HYPO THYROIDISM NOS 09/16/2016 Ot V49.75 BEL OW KNEE AMPUTATION STATUS 09/16/2016 Ot V67.09 LLOY[place] FLOYD FOLLOW- UP, OTHER SURGERY 10/09/2016 Ot 244.9 HYPO THYROIDISM NOS 10/09/2016 Ot V49.75 BEL OW KNEE AMPUTATION STATUS 10/09/2016 Ot V67.09 LLOY[place] FLOYD FOLLOW- UP, OTHER SURGERY 10/13/2016 Ot 244.9 HYPO THYROIDISM NOS 10/13/2016 Ot V49.75 BEL OW KNEE AMPUTATION STATUS 10/13/2016 Ot V67.09 LLOY[place] FLOYD FOLLOW- UP, OTHER SURGERY 10/13/2016 Ot 244.9 HYPO THYROIDISM NOS 10/13/2016 Ot V49.75 BEL OW KNEE AMPUTATION STATUS 10/13/2016 Ot V67.09 LLOYD FLOYD FOLLOW- UP, OTHER SURGERY 10/15/2016 CHACHA VICK, PK [place] Ot A40. 1 SEPSIS DUE TO STREPTOCOCCUS, GROUP B 10/15/2016 PK BURNHAM MD Ot A41. 59 OTHER GRAM-NEGATIVE SEPSIS 10/15/2016 PK BURNHAM MD Ot B95. 1 STREPTOCOCCUS, GROUP B, CAUSING DISEASES 10/15/2016 CHACHA VICK, PK [place] Ot E11. 42 TYPE 2 DIABETES MELLITUS WITH DIABETIC P 10/15/2016 PK BURNHAM MD Ot F17.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, OTHER TOBACCO PRODU 10/15/2016 PK BURNHAM MD Ot I13. 0 HYP HRT CHR KDNY DIS W HRT FAIL AND ST 10/15/2016 PK BURNHAM MD Ot I25. 10 ATHSCL HEART DISEASE OF [place] CORONARY 10/15/2016 PK BURNHAM MD Ot I50. 30 UNSPECIFIED DIASTOLIC (CONGESTIVE) HEART 10/15/2016 PK BURNHAM MD Ot I50. 33 ACUTE ON CHRONIC DIASTOLIC (CONGESTIVE) 10/15/2016 PK BURNHAM MD Ot J18. 9 PNEUMONIA, UNSPECIFIED ORGANISM 10/15/2016 PK BURNHAM MD Ot J20. 2 ACUTE BRONCHITIS DUE TO STREPTOCOCCUS 10/15/2016 PK BURNHAM MD Ot J20. 8 ACUTE BRONCHITIS DUE TO OTHER SPECIFIED 10/15/2016 PK BURNHAM MD Ot J44. 0 CHRONIC OBSTRUCTIVE PULMON DISEASE W ACU 10/15/2016 PK BURNHAM MD Ot J44. 1 CHRONIC OBSTRUCTIVE PULMONARY DISEASE W 10/15/2016 PK BURNHAM MD Ot J45.909 UNSPECIFIED ASTHMA, UNCOMPLICATED 10/15/2016 PK BURNHAM MD Ot K56. 7 ILEUS, UNSPECIFIED 10/15/2016 PK BURNHAM MD Ot N18. 3 CHRONIC KIDNEY DISEASE, STAGE 3 (MODERAT 10/15/2016 PK BURNHAM MD Ot R04. 2 HEMOPTYSIS 10/15/2016 PK BURNHAM MD Ot Z79. 84 PRISON (CURRENT) USE OF ORAL HYPOGLYC 10/15/2016 PK BURNHAM MD Ot Z89.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 10/15/2016 PK BURNHAM MD Ot Z95. 0 PRESENCE OF CARDIAC PACEMAKER 10/15/2016 PK BURNHAM MD Ot Z95. 1 PRESENCE OF AORTOCORONARY BYPASS GRAFT 10/20/2016 AGATHA PAZ DO Ot A40.1 SEPSIS DUE TO STREPTOCOCCUS, GROUP B 10/20/2016 AGATHA PAZ DO Ot E11.42 TYPE 2 DIABETES MELLITUS WITH DIABETIC P 10/20/2016 AGATHA PAZ DO Ot F17.29 0 NICOTINE DEPENDENCE, OTHER TOBACCO PRODU 10/20/2016 AGATHA PAZ DO Ot F60.9 PERSONALITY DISORDER, UNSPECIFIED 10/20/2016 AGATHA PAZ DO Ot I13.0 HYP HRT CHR KDNY DIS W HRT FAIL AND ST 10/20/2016 AGATHA PAZ DO Ot I25.10 ATHSCL HEART DISEASE OF [place] CORONARY 10/20/2016 AGATHA PAZ DO Ot I50.33 ACUTE ON CHRONIC DIASTOLIC (CONGESTIVE) 10/20/2016 AGATHA PAZ DO Ot J18.9 PNEUMONIA, UNSPECIFIED ORGANISM 10/20/2016 AGATHA PAZ DO Ot J44.0 CHRONIC OBSTRUCTIVE PULMON DISEASE W ACU 10/20/2016 AGATHA PAZ DO Ot J45.90 9 UNSPECIFIED ASTHMA, UNCOMPLICATED 10/20/2016 AGATHA PAZ DO Ot K56.7 ILEUS, UNSPECIFIED 10/20/2016 AGATHA PAZ DO Ot N18.3 CHRONIC KIDNEY DISEASE, STAGE 3 (MODERAT 10/20/2016 AGATHA PAZ DO Ot R04.2 HEMOPTYSIS 10/20/2016 AGATHA PAZ DO Ot Z79.84 PRISON (CURRENT) USE OF ORAL HYPOGLYC 10/20/2016 AGATHA PAZ DO Ot Z95.0 PRESENCE OF CARDIAC PACEMAKER 10/20/2016 AGATHA PAZ DO Ot Z95.1 PRESENCE OF AORTOCORONARY BYPASS GRAFT 10/20/2016 Ot 244.9 HYPO THYROIDISM NOS 10/20/2016 Ot V49.75 BEL OW KNEE AMPUTATION STATUS 10/20/2016 Ot V67.09 LLOYD FLOYD FOLLOW- UP, OTHER SURGERY 10/29/2016 Ot 250.00 BETI B TATIANA WO COMPL, TYPE II OR UNSPEC TY 10/29/2016 Ot 276.50 VOL UME DEPLETION, UNSPECIFIED 10/29/2016 Ot 401.9 HYPE RTENSION NOS 10/29/2016 Ot 784.0 HEAD ACHE 10/29/2016 Ot 787.03 VOM ITING ALONE 10/29/2016 Ot 789.09 ABD OMINAL PAIN, OTHER SPECIFIED SITE 10/29/2016 Ot V58.69 OTH MED,LT,CURRENT USE 11/11/2016 Ot 244.9 HYPO THYROIDISM NOS 11/11/2016 Ot V49.75 BEL OW KNEE AMPUTATION STATUS 11/11/2016 Ot V67.09 LLOY[place] FLOYD FOLLOW- UP, OTHER SURGERY 12/10/2016 Ot 244.9 HYPO THYROIDISM NOS 12/10/2016 Ot V49.75 BEL OW KNEE AMPUTATION STATUS 12/10/2016 Ot V67.09 LLOYD FLOYD FOLLOW- UP, OTHER SURGERY 12/14/2016 Ot 244.9 HYPO THYROIDISM NOS 12/14/2016 Ot V49.75 BEL OW KNEE AMPUTATION STATUS 12/14/2016 Ot V67.09 LLOYD FLOYD FOLLOW- UP, OTHER SURGERY 02/13/2019 ANTHONY ELLSWORTH MD Ot A08. 4 VIRAL INTESTINAL INFECTION, UNSPECIFIED 02/13/2019 ANTHONY ELLSWORTH MD Ot E11. 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 02/13/2019 ANTHONY ELLSWORTH MD Ot E78. 00 PURE HYPERCHOLESTEROLEMIA, UNSPECIFIED 02/13/2019 ANTHONY ELLSWORTH MD Ot F17.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, OTHER TOBACCO PRODU 02/13/2019 ANTHONY ELLSWORTH MD Ot F32. 9 MAJOR DEPRESSIVE DISORDER, SINGLE EPISOD 02/13/2019 ANTHONY ELLSWORTH MD Ot G43.909 MIGRAINE, UNSP, NOT INTRACTABLE, WITHOUT 02/13/2019 ANTHONY ELLSWORTH MD Ot I10 ESSENTIAL (PRIMARY) HYPERTENSION 02/13/2019 ANTHONY ELLSWORTH MD Ot I25. 10 ATHSCL HEART DISEASE OF [place] CORONARY 02/13/2019 ANTHONY ELLSWORTH MD Ot I73. 9 PERIPHERAL VASCULAR DISEASE, UNSPECIFIED 02/13/2019 ANTHONY ELLSWORTH MD Ot R10. 31 RIGHT LOWER QUADRANT PAIN 02/13/2019 ANTHONY ELLSWORTH MD Ot Z79. 4 PRISON (CURRENT) USE OF INSULIN 02/13/2019 ANTHONY ELLSWORTH MD Ot Z79. 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 43 FAMILY HISTORY OF MALIGNANT NEOPLASM OF 02/13/2019 ANTHONY ELLSWORTH MD Ot Z80. 6 FAMILY HISTORY OF LEUKEMIA 02/13/2019 ANTHONY ELLSWORTH MD Ot Z87. 01 PERSONAL HISTORY OF PNEUMONIA (RECURRENT 02/13/2019 ANTHONY ELLSWORTH MD Ot Z95. 0 PRESENCE OF CARDIAC PACEMAKER 02/13/2019 ANTHONY ELLSWORTH MD Ot Z95. 1 PRESENCE OF AORTOCORONARY BYPASS GRAFT 02/14/2019 ANTHONY ELLSWORTH MD Ot A08. 4 VIRAL INTESTINAL INFECTION, UNSPECIFIED 02/14/2019 ANTHONY ELLSWORTH MD Ot E11. 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 02/14/2019 ANTHONY ELLSWORTH MD Ot E78. 00 PURE HYPERCHOLESTEROLEMIA, UNSPECIFIED 02/14/2019 ANTHONY ELLSWORTH MD Ot F17.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, OTHER TOBACCO PRODU 02/14/2019 ANTHONY ELLSWORTH MD Ot F32. 9 MAJOR DEPRESSIVE DISORDER, SINGLE EPISOD 02/14/2019 ANTHONY ELLSWORTH MD Ot G43.909 MIGRAINE, UNSP, NOT INTRACTABLE, WITHOUT 02/14/2019 ANTHONY ELLSWORTH MD Ot I10 ESSENTIAL (PRIMARY) HYPERTENSION 02/14/2019 ANTHONY ELLSWORTH MD Ot I25. 10 ATHSCL HEART DISEASE OF [place] CORONARY 02/14/2019 ANTHONY ELLSWORTH MD Ot I73. 9 PERIPHERAL VASCULAR DISEASE, UNSPECIFIED 02/14/2019 ANTHONY ELLSWORTH MD Ot R10. 31 RIGHT LOWER QUADRANT PAIN 02/14/2019 ANTHONY ELLSWORTH MD Ot Z79. 4 PRISON (CURRENT) USE OF INSULIN 02/14/2019 ANTHONY ELLSWORTH MD Ot Z79. 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 43 FAMILY HISTORY OF MALIGNANT NEOPLASM OF 02/14/2019 ANTHONY ELLSWORTH MD Ot Z80. 6 FAMILY HISTORY OF LEUKEMIA 02/14/2019 ANTHONY ELLSWORTH MD Ot Z87. 01 PERSONAL HISTORY OF PNEUMONIA (RECURRENT 02/14/2019 ANTHONY ELLSWORTH MD Ot Z95. 0 PRESENCE OF CARDIAC PACEMAKER 02/14/2019 ANTHONY ELLSWORTH MD Ot Z95. 1 PRESENCE OF AORTOCORONARY BYPASS GRAFT 02/18/2019 PK BURNHAM MD Ot E11. 22 TYPE 2 DIABETES MELLITUS W DIABETIC SECOND RIDE FARE COLLECTOR 02/18/2019 PK BURNHAM MD Ot E11. 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 02/18/2019 PK BURNHAM MD Ot E78. 00 PURE HYPERCHOLESTEROLEMIA, UNSPECIFIED 02/18/2019 PK BURNHAM MD Ot F17.210 NICOTINE DEPENDENCE, CIGARETTES, UNCOMPL 02/18/2019 PK BURNHAM MD Ot F32. 9 MAJOR DEPRESSIVE DISORDER, SINGLE EPISOD 02/18/2019 PK BURNHAM MD Ot H91. 90 UNSPECIFIED HEARING LOSS, UNSPECIFIED EA 02/18/2019 PK BURNHAM MD Ot I12. 9 HYPERTENSIVE CHRONIC KIDNEY DISEASE W ST 02/18/2019 PK BURNHAM MD Ot I25. 10 ATHSCL HEART DISEASE OF [place] CORONARY 02/18/2019 PK BURNHAM MD Ot K59. 09 OTHER CONSTIPATION 02/18/2019 PK BURNHAM MD Ot N18. 3 CHRONIC KIDNEY DISEASE, STAGE 3 (MODERAT 02/18/2019 PK BURNHAM MD Ot R10. 9 UNSPECIFIED ABDOMINAL PAIN 02/18/2019 PK BURNHAM MD Ot Z79. 82 PRISON (CURRENT) USE OF ASPIRIN 02/18/2019 PK BURNHAM MD Ot Z79. 84 PRISON (CURRENT) USE OF ORAL HYPOGLYC 02/18/2019 PK BURNHAM MD Ot Z79.899 OTHER BOILER OPERATOR HELPER (CURRENT) DRUG THERAPY 02/18/2019 PK BURNHAM MD Ot Z95. 0 PRESENCE OF CARDIAC PACEMAKER 02/18/2019 PK BURNHAM MD Ot Z95. 1 PRESENCE OF AORTOCORONARY BYPASS GRAFT 02/18/2019 PK BURNHAM MD Ot E11. 22 TYPE 2 DIABETES MELLITUS W DIABETIC SECOND RIDE FARE COLLECTOR 02/18/2019 PK BURNHAM MD Ot E11. 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 02/18/2019 PK BURNHAM MD Ot E78. 00 PURE HYPERCHOLESTEROLEMIA, UNSPECIFIED 02/18/2019 PK BURNHAM MD Ot F17.210 NICOTINE DEPENDENCE, CIGARETTES, UNCOMPL 02/18/2019 PK BURNHAM MD Ot F32. 9 MAJOR DEPRESSIVE DISORDER, SINGLE EPISOD 02/18/2019 PK BURNHAM MD Ot H91. 90 UNSPECIFIED HEARING LOSS, UNSPECIFIED EA 02/18/2019 PK BURNHAM MD Ot I12. 9 HYPERTENSIVE CHRONIC KIDNEY DISEASE W ST 02/18/2019 PK BURNHAM MD Ot I25. 10 ATHSCL HEART DISEASE OF [place] CORONARY 02/18/2019 PK BURNHAM MD Ot K59. 09 OTHER CONSTIPATION 02/18/2019 PK BURNHAM MD Ot N18. 3 CHRONIC KIDNEY DISEASE, STAGE 3 (MODERAT 02/18/2019 PK BURNHAM MD Ot R10. 9 UNSPECIFIED ABDOMINAL PAIN 02/18/2019 PK BURNHAM MD Ot Z79. 82 BOILER OPERATOR HELPER (CURRENT) USE OF ASPIRIN 02/18/2019 PK BURNHAM MD Ot Z79. 84 BOILER OPERATOR HELPER (CURRENT) USE OF ORAL HYPOGLYC 02/18/2019 PK BURNHAM MD Ot Z79.899 OTHER PRISON (CURRENT) DRUG THERAPY 02/18/2019 PK BURNHAM MD Ot Z95. 0 PRESENCE OF CARDIAC PACEMAKER 02/18/2019 PK BURNHAM MD Ot Z95. 1 PRESENCE OF AORTOCORONARY BYPASS GRAFT 03/01/2019 ЕКАТЕРИНА VICK, INÉS R Ot M17. 11 UNILATERAL PRIMARY OSTEOARTHRITIS, RIGHT 03/27/2019 ЕКАТЕРИНА VICK, INÉS R Ot M17. 11 UNILATERAL PRIMARY OSTEOARTHRITIS, RIGHT 03/30/2019 ЕКАТЕРИНА VICK, INÉS R Ot M17. 11 UNILATERAL PRIMARY OSTEOARTHRITIS, RIGHT 04/05/2019 GREENBERG DO, NEHAL D Ot M25.511 PAIN IN RIGHT SHOULDER 04/05/2019 GREENBERG DO, NEHAL D Ot R10. 11 RIGHT UPPER QUADRANT PAIN 04/24/2019 GREENBERG DO, NEHAL D Ot M25.511 PAIN IN RIGHT SHOULDER 04/24/2019 GREENBERG DO, NEHAL D Ot R10. 11 RIGHT UPPER QUADRANT PAIN 04/26/2019 GREENBERG DO, NEHAL D Ot M25.511 PAIN IN RIGHT SHOULDER 04/26/2019 GREENBERG DO, NEHAL D Ot R10. 11 RIGHT UPPER QUADRANT PAIN 05/04/2019 GREENBERG DO, NEHAL D Ot M25.511 PAIN IN RIGHT SHOULDER 05/04/2019 GREENBERG DO, NEHAL D Ot R10. 11 RIGHT UPPER QUADRANT PAIN 05/10/2019 GREENBERG DO, NEHAL D Ot M25.511 PAIN IN RIGHT SHOULDER 05/10/2019 GREENBERG DO, NEHAL D Ot R10. 11 RIGHT UPPER QUADRANT PAIN 05/11/2019 GREENBERG DO, NEHAL D Ot D64. 9 ANEMIA, UNSPECIFIED 05/11/2019 GREENBERG DO, NEHAL D Ot E11. 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 00 PURE HYPERCHOLESTEROLEMIA, UNSPECIFIED 05/11/2019 NEHAL GREENBERG DO Ot E83. 42 HYPOMAGNESEMIA 05/11/2019 NEHAL GREENBERG DO Ot F17.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, OTHER TOBACCO PRODU 05/11/2019 NEHAL GREENBERG DO Ot F32. 9 MAJOR DEPRESSIVE DISORDER, SINGLE EPISOD 05/11/2019 NEHAL GREENBERG DO Ot G43.909 MIGRAINE, UNSP, NOT INTRACTABLE, WITHOUT 05/11/2019 NEHAL GREENBERG DO Ot I10 ESSENTIAL (PRIMARY) HYPERTENSION 05/11/2019 NEHAL GREENBERG DO Ot I25. 10 ATHSCL HEART DISEASE OF [place] CORONARY 05/11/2019 NEHAL GREENBERG DO Ot J44. 9 CHRONIC OBSTRUCTIVE PULMONARY DISEASE, U 05/11/2019 NEHLA GREENBERG DO Ot K55.039 ACUTE ISCHEMIA OF LARGE INTESTINE, EXTEN 05/11/2019 NEHAL GREENBERG DO Ot K59. 09 OTHER CONSTIPATION 05/11/2019 NEHAL GREENBERG DO Ot K76. 0 FATTY (CHANGE OF) LIVER, NOT ELSEWHERE C 05/11/2019 NEHAL GREENBERG DO Ot N17. 9 ACUTE KIDNEY FAILURE, UNSPECIFIED 05/11/2019 NEHAL GREENBERG DO Ot N42. 9 DISORDER OF PROSTATE, UNSPECIFIED 05/11/2019 NEHAL GREENBERG DO Ot R09. 02 HYPOXEMIA 05/11/2019 NEHAL GREENBERG DO Ot Z79. 84 BOILER OPERATOR HELPER (CURRENT) USE OF ORAL HYPOGLYC 05/11/2019 NEHAL GREENBERG DO Ot Z89.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 05/11/2019 NEHAL GREENBERG DO Ot Z95. 0 PRESENCE OF CARDIAC PACEMAKER 05/11/2019 NEHAL GREENBERG DO Ot Z95. 1 PRESENCE OF AORTOCORONARY BYPASS GRAFT 05/11/2019 NEHAL GREENBERG DO Ot D64. 9 ANEMIA, UNSPECIFIED 05/11/2019 NEHAL GREENBERG DO Ot E11. 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 05/11/2019 NEHAL GREENBERG DO Ot E11. 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 00 PURE HYPERCHOLESTEROLEMIA, UNSPECIFIED 05/11/2019 NEHAL GREENBERG DO Ot E83. 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 9 MAJOR DEPRESSIVE DISORDER, SINGLE EPISOD 05/11/2019 NEHAL GREENBERG DO Ot G43.909 MIGRAINE, UNSP, NOT INTRACTABLE, WITHOUT 05/11/2019 NEHAL GREENBERG DO Ot I10 ESSENTIAL (PRIMARY) HYPERTENSION 05/11/2019 NEHAL GREENBERG DO Ot I25. 10 ATHSCL HEART DISEASE OF [place] CORONARY 05/11/2019 NEHAL GREENBERG DO Ot J44. 9 CHRONIC OBSTRUCTIVE PULMONARY DISEASE, U 05/11/2019 NEHAL GREENBERG DO Ot K55.031 FOCAL (SEGMENTAL) ACUTE ISCHEMIA OF LARG 05/11/2019 NEHAL GREENBERG DO Ot K55.039 ACUTE ISCHEMIA OF LARGE INTESTINE, EXTEN 05/11/2019 NEHAL GREENBERG DO Ot K56. 7 ILEUS, UNSPECIFIED 05/11/2019 NEHAL GREENBERG DO Ot K59. 09 OTHER CONSTIPATION 05/11/2019 NEHAL GREENBERG DO Ot K76. 0 FATTY (CHANGE OF) LIVER, NOT ELSEWHERE C 05/11/2019 NEHAL GREENBERG DO Ot N17. 9 ACUTE KIDNEY FAILURE, UNSPECIFIED 05/11/2019 NEHAL GREENBERG DO Ot N40. 1 BENIGN PROSTATIC HYPERPLASIA WITH LOWER 05/11/2019 NEHAL GREENBERG DO Ot N42. 9 DISORDER OF PROSTATE, UNSPECIFIED 05/11/2019 NEHAL GREENBERG DO Ot R09. 02 HYPOXEMIA 05/11/2019 NEHAL GREENBERG DO Ot R33. 9 RETENTION OF URINE, UNSPECIFIED 05/11/2019 NEHAL GREENBERG DO Ot Z79. 84 PRISON (CURRENT) USE OF ORAL HYPOGLYC 05/11/2019 NEHAL GREENBERG DO Ot Z89.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 05/11/2019 NEHAL GREENBERG DO Ot Z95. 0 PRESENCE OF CARDIAC PACEMAKER 05/11/2019 NEHAL GREENBERG DO Ot Z95. 1 PRESENCE OF AORTOCORONARY BYPASS GRAFT 05/17/2019 BRANDI REDDY AGATHA Ot D64.9 ANEMIA, UNSPECIFIED 05/17/2019 BRANDI REDDY AGATHA Ot E11.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 05/17/2019 BRANDI REDDY AGATHA Ot E11.51 TYPE 2 DIABETES W DIABETIC PERIPHERAL AN 05/17/2019 BRANDI REDDY AGATHA Ot E78.00 PURE HYPERCHOLESTEROLEMIA, UNSPECIFIED 05/17/2019 BRANDI REDDY AGATHA Ot F32.9 MAJOR DEPRESSIVE DISORDER, SINGLE EPISOD 05/17/2019 BRANDI REDDY AGATHA Ot I10 ESSENTIAL (PRIMARY) HYPERTENSION 05/17/2019 BRANDI REDDY AGATHA Ot I25.10 ATHSCL HEART DISEASE OF [place] CORONARY 05/17/2019 BRANDI REDDY AGATHA Ot J44.9 CHRONIC OBSTRUCTIVE PULMONARY DISEASE, U 05/17/2019 BRANDI REDDY AGATHA Ot N28.9 DISORDER OF KIDNEY AND URETER, UNSPECIFI 05/17/2019 BRANDI REDDY AGATHA Ot R09.02 HYPOXEMIA 05/17/2019 BRANDI REDDY AGATHA Ot R11.2 NAUSEA WITH VOMITING, UNSPECIFIED 05/17/2019 BRANDI DO AGATHA Ot R19.7 DIARRHEA, UNSPECIFIED 05/17/2019 BRANDI REDDY AGATHA Ot R33.9 RETENTION OF URINE, UNSPECIFIED 05/17/2019 BRANDI REDDY AGATHA Ot R53.81 OTHER MALAISE 05/17/2019 BRANDI REDDY AGATHA Ot Z48.81 5 ENCNTR FOR SURGICAL AFTCR FOLLOWING SURG 05/17/2019 BRANDI REDDY AGATHA Ot Z87.89 1 PERSONAL HISTORY OF NICOTINE DEPENDENCE 05/17/2019 BRANDI REDDY AGATHA Ot Z89.61 1 ACQUIRED ABSENCE OF RIGHT LEG ABOVE KNEE 05/17/2019 BRANDI REDDY AGATHA Ot Z90.49 ACQUIRED ABSENCE OF OTHER SPECIFIED PART 05/17/2019 BRANDI REDDY AGATHA Ot Z95.0 PRESENCE OF CARDIAC PACEMAKER 05/17/2019 BRANDI REDDY AGATHA Ot Z95.1 PRESENCE OF AORTOCORONARY BYPASS GRAFT 05/17/2019 BRANDI REDDY AGATHA Ot Z98.89 0 OTHER SPECIFIED POSTPROCEDURAL STATES 05/18/2019 NEHAL GREENBERG DO Ot M25.511 PAIN IN RIGHT SHOULDER 05/18/2019 GREENBERG NEHAL Jered Ot R10. 11 RIGHT UPPER QUADRANT PAIN Procedures Code Description Performed By Per formed On 03.31 04/10/2011 00.40 PROC EDURE ON SINGLE VESSEL 05/04/2012 39.29 VASC SHUNT BYPASS NEC 05/04/2012 39.50 KAVEH OPLASTY OF OTHER NON- CORONARY VESSEL 05/04/2012 83.44 OTHE R FASCIECTOMY 05/04/2012 84.11 TOE AMPUTATION 05/04/2012 38.93 VENO US CATHETERIZATION NEC 05/06/2012 84.15 BELO W KNEE AMPUTAT NEC 05/09/2012 57.32 CYST OSCOPY NEC 05/20/2012 [id number] RE SECTION OF RIGHT LARGE INTESTINE, OPEN 05/07/2019 Results Test Result Range Complete blood count (CBC) with automate d white blood cell (WBC) differential - 10/09/16 17:05 Blood leukocytes automated count (number/volume) 12.4 10*3/uL 4.3-11.0 Blood erythrocytes automated count (number/volume) 4.00 10*6/uL 4.35-5.85 Venous blood hemoglobin measurement (mass/volume) 12.1 g/dL 13.3-17.7 Blood hematocrit (volume fraction) 36 % 40-54 Automated erythrocyte mean corpuscular volume 91 [ foz_us] 80-99 Automated erythrocyte mean corpuscular h emoglobin (mass per erythrocyte) 30 pg 25-34 Automated erythrocyte mean corpuscular h emoglobin concentration measurement (mass/volume) 33 g/dL 32-36 Automated erythrocyte distribution width ratio 13. 5 % 10.0- 14.5 Automated blood platelet count [...] 10*3 1.0-4.0 Blood monocytes automated count (number/volume) 0. 6 10*3 0.0-1.0 Automated eosinophil count 0.0 10*3/uL 0 .0-0.3 Automated blood basophil count (count/volume) 0.0 10*3/uL 0.0-0.1 Blood lactic acid measurement (moles/vol ume) - 10/09/16 17:05 Blood lactic acid measurement (moles/volume) 2.0 m mol/L 0.5- 2.0 Comprehensive metabolic panel - 10/09/16 17:05 Serum or plasma sodium measurement (moles/volume) 137 mmol/L 135-145 Serum or plasma potassium measurement (moles/volume) 4.3 mmol/L 3.6-5.0 Serum or plasma chloride measurement (moles/volume) 103 mmol/L 98-107 Carbon dioxide 26 mmol/L 21-32 Serum or plasma anion gap determination (moles/volume) 8 mmol/L 5-14 Serum or plasma urea nitrogen measurement (mass/volume ) 29 mg/dL 7-18 Serum or plasma creatinine measurement (mass/volume) 1.51 mg/dL 0.60-1.30 Serum or plasma urea nitrogen/creatinine mass ratio 19 NRG Serum or plasma creatinine measurement w ith calculation of estimated glomerular filtration rate 44 NRG Serum or plasma glucose measurement (mass/volume) 263 mg/dL 70-105 Serum or plasma calcium measurement (mass/volume) 8.8 mg/dL 8.5-10.1 Serum or plasma total bilirubin measurement (mass/volu me) 0.8 mg/dL 0.1-1.0 Serum or plasma alkaline phosphatase lucien surement (enzymatic activity/volume) 68 U/L 40-136 Serum or plasma aspartate aminotransfera se measurement (enzymatic activity/volume) 17 U/L 5-34 Serum or plasma alanine aminotransferase measurement (enzymatic activity/volume) 23 U/L 0-55 Serum or plasma protein measurement (mass/volume) 6.6 g/dL 6.4-8.2 Serum or plasma albumin measurement (mass/volume) 3.9 g/dL 3.2-4.5 Blood manual differential performed dete ction - 10/09/16 17:05 Blood monocytes/100 leukocytes 1 % NRG Manual blood segmented neutrophils/100 leukocytes 91 % NRG Blood band neutrophils/100 leukocytes 0 % NRG Manual blood lymphocytes/100 leukocytes 8 % NRG Manual eosinophils/100 leukocytes in nose 0 % NRG Manual blood basophils/100 leukocytes 0 % NR Blood erythrocyte morphology finding identification NORMAL NRG Serum or plasma creatine kinase measurem ent (enzymatic activity/volume) - 10/09/16 17:05 Serum or plasma creatine kinase measurem ent (enzymatic activity/volume) 98 U/L 30-200 Serum or plasma C reactive protein measu rement (mass/volume) - 10/09/16 17:05 Serum or plasma C reactive protein measurement (mass/v olume) 9.13 mg/dL 0.00-0.50 Fibrin D-dimer FEU measurement in platel et poor plasma (mass/volume) - 10/09/16 17:05 Fibrin D-dimer FEU measurement in platelet poor plasma (mass/volume) 1.79 ug/mL 0.00-0.49 Bacterial blood culture - 10/09/16 17:05 QUANTITY OF GROWTH Isolated NRG Bacterial blood culture [id number] [facility] Bacterial blood culture - 10/09/16 18:08 FREE TEXT EXTERNAL PROBABLE BURKHOLDERIA CEPACIA G ROUP NR QUANTITY OF GROWTH Isolated NR Bacterial blood culture [id number] [facility] FREE TEXT ENTRY 2 SEE COMMENTS [facility] Bacterial susceptibility panel - 6 18:08 Trimethoprim/sulfamethoxazole susceptibi lity test by minimum inhibitoryconcentration <= NRG Ciprofloxacin susceptibility test by minimum inhibitor y concentration 1 NRG Meropenem susceptibility test by minimum inhibitory co ncentration <= NRG Complete urinalysis with reflex to cultu re - 10/09/16 18:49 Urine color determination YELLOW NRG Urine clarity determination CLEAR NR G Urine pH measurement by test strip 5 5-9 Specific gravity of urine by test strip 1.025 1.016-1.022 Urine protein assay by test strip, semi-quantitative 3+ NEGATIVE Urine glucose detection by automated test strip 3+ NEGATIVE Erythrocytes detection in urine sediment by light micr oscopy 2+ NEGATIVE Urine ketones detection by automated test strip NE GATIVE NEGATIVE Urine nitrite detection by test strip NEGATIVE NEGATIVE Urine total bilirubin detection by test strip NEGA TIVE NEGATIVE Urine urobilinogen measurement by automated test strip (mass/volume) NORMAL NORMAL Urine leukocyte esterase detection by dipstick NEG ATIVE NEGATIVE Automated urine sediment erythrocyte cou nt by microscopy (number/high power field) NONE NRG Automated urine sediment leukocyte count by microscopy (number/high power field) RARE NRG Bacteria detection in urine sediment by light microsco py NEGATIVE NRG Squamous epithelial cells detection in u rine sediment by light microscopy RARE NRG Crystals detection in urine sediment by light microsco py NONE NRG Casts detection in urine sediment by light microscopy NONE NRG Mucus detection in urine sediment by light microscopy NEGATIVE NRG Complete urinalysis with reflex to culture NO NRG Influenza virus A and B antigen detectio n - 10/09/16 20:09 FLU RESULT NEGATIVE FOR INFLUENZA A AND B ANTIGENS BY IA NRG Complete blood count (CBC) with automate d white blood cell (WBC) differential - 10/10/16 05:08 Blood leukocytes automated count (number/volume) 12.3 10*3/uL 4.3-11.0 Blood erythrocytes automated count (number/volume) 3.61 10*6/uL 4.35-5.85 Venous blood hemoglobin measurement (mass/volume) 10.9 g/dL 13.3-17.7 Blood hematocrit (volume fraction) 34 % 40-54 Automated erythrocyte mean corpuscular volume 93 [ foz_us] 80-99 Automated erythrocyte mean corpuscular h emoglobin (mass per erythrocyte) 30 pg 25-34 Automated erythrocyte mean corpuscular h emoglobin concentration measurement (mass/volume) 33 g/dL 32-36 Automated erythrocyte distribution width ratio 13. 9 % 10.0- 14.5 Automated blood platelet count [...] 10*3 1.0-4.0 Blood monocytes automated count (number/volume) 0. 8 10*3 0.0-1.0 Automated eosinophil count 0.0 10*3/uL 0 .0-0.3 Automated blood basophil count (count/volume) 0.0 10*3/uL 0.0-0.1 Whole blood basic metabolic panel - 09/29 01/14 05:08 Serum or plasma sodium measurement (moles/volume) 138 mmol/L 135-145 Serum or plasma potassium measurement (moles/volume) 4.5 mmol/L 3.6-5.0 Serum or plasma chloride measurement (moles/volume) 106 mmol/L 98-107 Carbon dioxide 21 mmol/L 21-32 Serum or plasma anion gap determination (moles/volume) 11 mmol/L 5-14 Serum or plasma urea nitrogen measurement (mass/volume ) 35 mg/dL 7-18 Serum or plasma creatinine measurement (mass/volume) 1.69 mg/dL 0.60-1.30 Serum or plasma urea nitrogen/creatinine mass ratio 21 NRG Serum or plasma creatinine measurement w ith calculation of estimated glomerular filtration rate 39 NRG Serum or plasma glucose measurement (mass/volume) 226 mg/dL 70-105 Serum or plasma calcium measurement (mass/volume) 8.3 mg/dL 8.5-10.1 Capillary blood glucose measurement by g lucometer (mass/volume) - 10/10/16 10:23 Capillary blood glucose measurement by glucometer (mas s/volume) 189 mg/dL 70-110 Capillary blood glucose measurement by g lucometer (mass/volume) - 10/10/16 15:17 Capillary blood glucose measurement by glucometer (mas s/volume) 153 mg/dL 70-110 Capillary blood glucose measurement by g lucometer (mass/volume) - 10/10/16 20:54 Capillary blood glucose measurement by glucometer (mas s/volume) 134 mg/dL 70-110 Capillary blood glucose measurement by g lucometer (mass/volume) - 10/11/16 05:53 Capillary blood glucose measurement by glucometer (mas s/volume) 159 mg/dL 70-110 Capillary blood glucose measurement by g lucometer (mass/volume) - 10/11/16 09:18 Capillary blood glucose measurement by glucometer (mas s/volume) 188 mg/dL 70-110 Sputum Gram stain - 10/11/16 09:45 GRAM STAIN SPUTUM AND MIXED BACTERIAL GREGOR NRG Bacterial sputum culture - 10/11/16 09:4 5 Bacterial sputum culture NORMAL NRG Capillary blood glucose measurement by g lucometer (mass/volume) - 10/11/16 11:39 Capillary blood glucose measurement by glucometer (mas s/volume) 273 mg/dL 70-110 Capillary blood glucose measurement by g lucometer (mass/volume) - 10/11/16 15:49 Capillary blood glucose measurement by glucometer (mas s/volume) 375 mg/dL 70-110 Capillary blood glucose measurement by g lucometer (mass/volume) - 10/11/16 21:10 Capillary blood glucose measurement by glucometer (mas s/volume) 303 mg/dL 70-110 Capillary blood glucose measurement by g lucometer (mass/volume) - 10/12/16 05:41 Capillary blood glucose measurement by glucometer (mas s/volume) 295 mg/dL 70-110 Complete blood count (CBC) with automate d white blood cell (WBC) differential - 10/12/16 07:09 Blood leukocytes automated count (number/volume) 10.6 10*3/uL 4.3-11.0 Blood erythrocytes automated count (number/volume) 3.76 10*6/uL 4.35-5.85 Venous blood hemoglobin measurement (mass/volume) 11.2 g/dL 13.3-17.7 Blood hematocrit (volume fraction) 35 % 40-54 Automated erythrocyte mean corpuscular volume 92 [ foz_us] 80-99 Automated erythrocyte mean corpuscular h emoglobin (mass per erythrocyte) 30 pg 25-34 Automated erythrocyte mean corpuscular h emoglobin concentration measurement (mass/volume) 32 g/dL 32-36 Automated erythrocyte distribution width ratio 13. 6 % 10.0- 14.5 Automated blood platelet count [...] 10*3 1.0-4.0 Blood monocytes automated count (number/volume) 0. 3 10*3 0.0-1.0 Automated eosinophil count 0.1 10*3/uL 0 .0-0.3 Automated blood basophil count (count/volume) 0.0 10*3/uL 0.0-0.1 Whole blood basic metabolic panel - 09/29 03/14 07:09 Serum or plasma sodium measurement (moles/volume) 139 mmol/L 135-145 Serum or plasma potassium measurement (moles/volume) 4.5 mmol/L 3.6-5.0 Serum or plasma chloride measurement (moles/volume) 109 mmol/L 98-107 Carbon dioxide 19 mmol/L 21-32 Serum or plasma anion gap determination (moles/volume) 11 mmol/L 5-14 Serum or plasma urea nitrogen measurement (mass/volume ) 45 mg/dL 7-18 Serum or plasma creatinine measurement (mass/volume) 1.35 mg/dL 0.60-1.30 Serum or plasma urea nitrogen/creatinine mass ratio 33 NRG Serum or plasma creatinine measurement w ith calculation of estimated glomerular filtration rate 51 NRG Serum or plasma glucose measurement (mass/volume) 299 mg/dL 70-105 Serum or plasma calcium measurement (mass/volume) 8.1 mg/dL 8.5-10.1 Capillary blood glucose measurement by g lucometer (mass/volume) - 10/12/16 10:57 Capillary blood glucose measurement by glucometer (mas s/volume) 324 mg/dL 70-110 Capillary blood glucose measurement by g lucometer (mass/volume) - 10/12/16 16:10 Capillary blood glucose measurement by glucometer (mas s/volume) 252 mg/dL 70-110 Capillary blood glucose measurement by g lucometer (mass/volume) - 10/12/16 20:40 Capillary blood glucose measurement by glucometer (mas s/volume) 226 mg/dL 70-110 Capillary blood glucose measurement by g lucometer (mass/volume) - 10/13/16 05:31 Capillary blood glucose measurement by glucometer (mas s/volume) 258 mg/dL 70-110 Capillary blood glucose measurement by g lucometer (mass/volume) - 10/13/16 11:13 Capillary blood glucose measurement by glucometer (mas s/volume) 270 mg/dL 70-110 Capillary blood glucose measurement by g lucometer (mass/volume) - 10/13/16 12:21 Capillary blood glucose measurement by glucometer (mas s/volume) 269 mg/dL 70-110 Capillary blood glucose measurement by g lucometer (mass/volume) - 10/13/16 16:11 Capillary blood glucose measurement by glucometer (mas s/volume) 247 mg/dL 70-110 Capillary blood glucose measurement by g lucometer (mass/volume) - 10/13/16 20:29 Capillary blood glucose measurement by glucometer (mas s/volume) 215 mg/dL 70-110 Capillary blood glucose measurement by g lucometer (mass/volume) - 10/14/16 05:02 Capillary blood glucose measurement by glucometer (mas s/volume) 160 mg/dL 70-110 Complete blood count (CBC) with automate d white blood cell (WBC) differential - 10/14/16 08:30 Blood leukocytes automated count (number/volume) 9.8 10*3/uL 4.3-11.0 Blood erythrocytes automated count (number/volume) 4.07 10*6/uL 4.35-5.85 Venous blood hemoglobin measurement (mass/volume) 12.1 g/dL 13.3-17.7 Blood hematocrit (volume fraction) 38 % 40-54 Automated erythrocyte mean corpuscular volume 93 [ foz_us] 80-99 Automated erythrocyte mean corpuscular h emoglobin (mass per erythrocyte) 30 pg 25-34 Automated erythrocyte mean corpuscular h emoglobin concentration measurement (mass/volume) 32 g/dL 32-36 Automated erythrocyte distribution width ratio 13. 7 % 10.0- 14.5 Automated blood platelet count [...] 10*3 1.0-4.0 Blood monocytes automated count (number/volume) 0. 4 10*3 0.0-1.0 Automated eosinophil count 0.0 10*3/uL 0 .0-0.3 Automated blood basophil count (count/volume) 0.0 10*3/uL 0.0-0.1 Comprehensive metabolic panel - 10/14/16 08:30 Serum or plasma sodium measurement (moles/volume) 142 mmol/L 135-145 Serum or plasma potassium measurement (moles/volume) 4.4 mmol/L 3.6-5.0 Serum or plasma chloride measurement (moles/volume) 111 mmol/L 98-107 Carbon dioxide 23 mmol/L 21-32 Serum or plasma anion gap determination (moles/volume) 8 mmol/L 5-14 Serum or plasma urea nitrogen measurement (mass/volume ) 36 mg/dL 7-18 Serum or plasma creatinine measurement (mass/volume) 1.05 mg/dL 0.60-1.30 Serum or plasma urea nitrogen/creatinine mass ratio 34 NRG Serum or plasma creatinine measurement w ith calculation of estimated glomerular filtration rate > NRG Serum or plasma glucose measurement (mass/volume) 193 mg/dL 70-105 Serum or plasma calcium measurement (mass/volume) 8.1 mg/dL 8.5-10.1 Serum or plasma total bilirubin measurement (mass/volu me) 0.6 mg/dL 0.1-1.0 Serum or plasma alkaline phosphatase lucien surement (enzymatic activity/volume) 60 U/L 40-136 Serum or plasma aspartate aminotransfera se measurement (enzymatic activity/volume) 43 U/L 5-34 Serum or plasma alanine aminotransferase measurement (enzymatic activity/volume) 89 U/L 0-55 Serum or plasma protein measurement (mass/volume) 6.0 g/dL 6.4-8.2 Serum or plasma albumin measurement (mass/volume) 3.5 g/dL 3.2-4.5 Lipase - 10/14/16 08:30 Lipase 11 U/L 8-78 Serum or plasma lithium measurement (mol es/volume) - 10/14/16 08:30 BNP level 846.8 pg/mL <100.0 Capillary blood glucose measurement by g lucometer (mass/volume) - 10/14/16 10:48 Capillary blood glucose measurement by glucometer (mas s/volume) 194 mg/dL 70-110 Capillary blood glucose measurement by g lucometer (mass/volume) - 10/14/16 15:53 Capillary blood glucose measurement by glucometer (mas s/volume) 250 mg/dL 70-110 Capillary blood glucose measurement by g lucometer (mass/volume) - 10/14/16 20:28 Capillary blood glucose measurement by glucometer (mas s/volume) 225 mg/dL 70-110 Capillary blood glucose measurement by g lucometer (mass/volume) - 10/15/16 05:57 Capillary blood glucose measurement by glucometer (mas s/volume) 196 mg/dL 70-110 Capillary blood glucose measurement by g lucometer (mass/volume) - 10/15/16 12:13 Capillary blood glucose measurement by glucometer (mas s/volume) 205 mg/dL 70-110 Capillary blood glucose measurement by g lucometer (mass/volume) - 10/15/16 15:54 Capillary blood glucose measurement by glucometer (mas s/volume) 346 mg/dL 70-110 Capillary blood glucose measurement by g lucometer (mass/volume) - 10/15/16 20:31 Capillary blood glucose measurement by glucometer (mas s/volume) 301 mg/dL 70-110 Capillary blood glucose measurement by g lucometer (mass/volume) - 10/16/16 05:19 Capillary blood glucose measurement by glucometer (mas s/volume) 243 mg/dL 70-110 Capillary blood glucose measurement by g lucometer (mass/volume) - 10/16/16 11:40 Capillary blood glucose measurement by glucometer (mas s/volume) 217 mg/dL 70-110 Capillary blood glucose measurement by g lucometer (mass/volume) - 10/16/16 16:27 Capillary blood glucose measurement by glucometer (mas s/volume) 329 mg/dL 70-110 Capillary blood glucose measurement by g lucometer (mass/volume) - 10/16/16 21:11 Capillary blood glucose measurement by glucometer (mas s/volume) 221 mg/dL 70-110 Whole blood basic metabolic panel - 09/29 08/14 04:43 Serum or plasma sodium measurement (moles/volume) 143 mmol/L 135-145 Serum or plasma potassium measurement (moles/volume) 3.4 mmol/L 3.6-5.0 Serum or plasma chloride measurement (moles/volume) 101 mmol/L 98-107 Carbon dioxide 31 mmol/L 21-32 Serum or plasma anion gap determination (moles/volume) 11 mmol/L 5-14 Serum or plasma urea nitrogen measurement (mass/volume ) 35 mg/dL 7-18 Serum or plasma creatinine measurement (mass/volume) 1.17 mg/dL 0.60-1.30 Serum or plasma urea nitrogen/creatinine mass ratio 30 NRG Serum or plasma creatinine measurement w ith calculation of estimated glomerular filtration rate 60 NRG Serum or plasma glucose measurement (mass/volume) 181 mg/dL 70-105 Serum or plasma calcium measurement (mass/volume) 8.1 mg/dL 8.5-10.1 Capillary blood glucose measurement by g lucometer (mass/volume) - 10/17/16 11:00 Capillary blood glucose measurement by glucometer (mas s/volume) 207 mg/dL 70-110 Capillary blood glucose measurement by g lucometer (mass/volume) - 10/17/16 16:03 Capillary blood glucose measurement by glucometer (mas s/volume) 281 mg/dL 70-110 Capillary blood glucose measurement by g lucometer (mass/volume) - 10/17/16 20:45 Capillary blood glucose measurement by glucometer (mas s/volume) 241 mg/dL 70-110 Capillary blood glucose measurement by g lucometer (mass/volume) - 10/18/16 05:57 Capillary blood glucose measurement by glucometer (mas s/volume) 120 mg/dL 70-110 Capillary blood glucose measurement by g lucometer (mass/volume) - 10/18/16 10:53 Capillary blood glucose measurement by glucometer (mas s/volume) 333 mg/dL 70-110 Capillary blood glucose measurement by g lucometer (mass/volume) - 10/18/16 15:47 Capillary blood glucose measurement by glucometer (mas s/volume) 247 mg/dL 70-110 Capillary blood glucose measurement by g lucometer (mass/volume) - 10/18/16 20:58 Capillary blood glucose measurement by glucometer (mas s/volume) 283 mg/dL 70-110 Capillary blood glucose measurement by g lucometer (mass/volume) - 10/19/16 06:19 Capillary blood glucose measurement by glucometer (mas s/volume) 155 mg/dL 70-110 Capillary blood glucose measurement by g lucometer (mass/volume) - 10/19/16 11:12 Capillary blood glucose measurement by glucometer (mas s/volume) 284 mg/dL 70-110 Capillary blood glucose measurement by g lucometer (mass/volume) - 10/19/16 16:30 Capillary blood glucose measurement by glucometer (mas s/volume) 369 mg/dL 70-110 Capillary blood glucose measurement by g lucometer (mass/volume) - 10/19/16 22:22 Capillary blood glucose measurement by glucometer (mas s/volume) 169 mg/dL 70-110 Capillary blood glucose measurement by g lucometer (mass/volume) - 10/20/16 05:15 Capillary blood glucose measurement by glucometer (mas s/volume) 126 mg/dL 70-110 Capillary blood glucose measurement by g lucometer (mass/volume) - 10/20/16 10:29 Capillary blood glucose measurement by glucometer (mas s/volume) 337 mg/dL 70-110 Complete blood count (CBC) with automate d white blood cell (WBC) differential - 02/12/19 22:15 Blood leukocytes automated count (number/volume) 7.5 10*3/uL 4.3-11.0 Blood erythrocytes automated count (number/volume) 4.13 10*6/uL 4.35-5.85 Venous blood hemoglobin measurement (mass/volume) 12.4 g/dL 13.3-17.7 Blood hematocrit (volume fraction) 37 % 40-54 Automated erythrocyte mean corpuscular volume 89 [ foz_us] 80-99 Automated erythrocyte mean corpuscular h emoglobin (mass per erythrocyte) 30 pg 25-34 Automated erythrocyte mean corpuscular h emoglobin concentration measurement (mass/volume) 34 g/dL 32-36 Automated erythrocyte distribution width ratio 13. 3 % 10.0- 14.5 Automated blood platelet count [...] 10*3 1.0-4.0 Blood monocytes automated count (number/volume) 0. 7 10*3 0.0-1.0 Automated eosinophil count 0.3 10*3/uL 0 .0-0.3 Automated blood basophil count (count/volume) 0.0 10*3/uL 0.0-0.1 Comprehensive metabolic panel - 02/12/19 22:15 Serum or plasma sodium measurement (moles/volume) 137 mmol/L 135-145 Serum or plasma potassium measurement (moles/volume) 4.0 mmol/L 3.6-5.0 Serum or plasma chloride measurement (moles/volume) 102 mmol/L 98-107 Carbon dioxide 24 mmol/L 21-32 Serum or plasma anion gap determination (moles/volume) 11 mmol/L 5-14 Serum or plasma urea nitrogen measurement (mass/volume ) 30 mg/dL 7-18 Serum or plasma creatinine measurement (mass/volume) 1.47 mg/dL 0.60-1.30 Serum or plasma urea nitrogen/creatinine mass ratio 20 NRG Serum or plasma creatinine measurement w ith calculation of estimated glomerular filtration rate 46 NRG Serum or plasma glucose measurement (mass/volume) 199 mg/dL 70-105 Serum or plasma calcium measurement (mass/volume) 9.7 mg/dL 8.5-10.1 Serum or plasma total bilirubin measurement (mass/volu me) 0.4 mg/dL 0.1-1.0 Serum or plasma alkaline phosphatase lucien surement (enzymatic activity/volume) 69 U/L 40-136 Serum or plasma aspartate aminotransfera se measurement (enzymatic activity/volume) 15 U/L 5-34 Serum or plasma alanine aminotransferase measurement (enzymatic activity/volume) 17 U/L 0-55 Serum or plasma protein measurement (mass/volume) 7.2 g/dL 6.4-8.2 Serum or plasma albumin measurement (mass/volume) 4.0 g/dL 3.2-4.5 CALCIUM CORRECTED 9.7 mg/dL 8.5-10.1 Lipase - 02/12/19 22:15 Lipase 20 U/L 8-78 Capillary blood glucose measurement by g lucometer (mass/volume) - 02/12/19 22:30 Capillary blood glucose measurement by glucometer (mas s/volume) 198 mg/dL 70-110 Influenza virus A and B antigen detectio n - 02/12/19 22:31 FLU RESULT NEGATIVE FOR INFLUENZA A AND B ANTIGENS BY IA NRG Complete urinalysis with reflex to cultu re - 02/13/19 00:21 Urine color determination YELLOW NRG Urine clarity determination CLEAR NR G Urine pH measurement by test strip 5 5-9 Specific gravity of urine by test strip 1.020 1.016-1.022 Urine protein assay by test strip, semi-quantitative 2+ NEGATIVE Urine glucose detection by automated test strip NE GATIVE NEGATIVE Erythrocytes detection in urine sediment by light micr oscopy NEGATIVE NEGATIVE Urine ketones detection by automated test strip NE GATIVE NEGATIVE Urine nitrite detection by test strip NEGATIVE NEGATIVE Urine total bilirubin detection by test strip NEGA TIVE NEGATIVE Urine urobilinogen measurement by automated test strip (mass/volume) NORMAL NORMAL Urine leukocyte esterase detection by dipstick NEG ATIVE NEGATIVE Automated urine sediment erythrocyte cou nt by microscopy (number/high power field) NONE NRG Automated urine sediment leukocyte count by microscopy (number/high power field) RARE NRG Bacteria detection in urine sediment by light microsco py FEW NRG Squamous epithelial cells detection in u rine sediment by light microscopy 0-2 NRG Crystals detection in urine sediment by light microsco py NONE NRG Casts detection in urine sediment by light microscopy PRESENT NRG Mucus detection in urine sediment by light microscopy SMALL NRG Complete urinalysis with reflex to culture NO NRG Hyaline casts detection in urine sediment by light shanel roscopy RARE NRG Complete blood count (CBC) with automate d white blood cell (WBC) differential - 02/17/19 18:05 Blood leukocytes automated count (number/volume) 6.1 10*3/uL 4.3-11.0 Blood erythrocytes automated count (number/volume) 3.80 10*6/uL 4.35-5.85 Venous blood hemoglobin measurement (mass/volume) 11.2 g/dL 13.3-17.7 Blood hematocrit (volume fraction) 34 % 40-54 Automated erythrocyte mean corpuscular volume 91 [ foz_us] 80-99 Automated erythrocyte mean corpuscular h emoglobin (mass per erythrocyte) 30 pg 25-34 Automated erythrocyte mean corpuscular h emoglobin concentration measurement (mass/volume) 33 g/dL 32-36 Automated erythrocyte distribution width ratio 13. 2 % 10.0- 14.5 Automated blood platelet count [...] 10*3 1.0-4.0 Blood monocytes automated count (number/volume) 0. 6 10*3 0.0-1.0 Automated eosinophil count 0.4 10*3/uL 0 .0-0.3 Automated blood basophil count (count/volume) 0.0 10*3/uL 0.0-0.1 PT panel in platelet poor plasma by coag ulation assay - 02/17/19 18:05 Prothrombin time (PT) in platelet poor plasma by coagu lation assay 14.0 s 12.2-14.7 INR in platelet poor plasma or blood by coagulation as say 1.1 0.8-1.4 Activated partial thromboplastin time (a PTT) in platelet poor plasma bycoagulation assay - 02/17/19 18:05 Activated partial thromboplastin time (a PTT) in platelet poor plasma bycoagulation assay 24 s 24-35 Comprehensive metabolic panel - 02/17/19 18:05 Serum or plasma sodium measurement (moles/volume) 140 mmol/L 135-145 Serum or plasma potassium measurement (moles/volume) 4.7 mmol/L 3.6-5.0 Serum or plasma chloride measurement (moles/volume) 104 mmol/L 98-107 Carbon dioxide 23 mmol/L 21-32 Serum or plasma anion gap determination (moles/volume) 13 mmol/L 5-14 Serum or plasma urea nitrogen measurement (mass/volume ) 30 mg/dL 7-18 Serum or plasma creatinine measurement (mass/volume) 1.55 mg/dL 0.60-1.30 Serum or plasma urea nitrogen/creatinine mass ratio 19 NRG Serum or plasma creatinine measurement w ith calculation of estimated glomerular filtration rate 43 NRG Serum or plasma glucose measurement (mass/volume) 154 mg/dL 70-105 Serum or plasma calcium measurement (mass/volume) 9.3 mg/dL 8.5-10.1 Serum or plasma total bilirubin measurement (mass/volu me) 0.3 mg/dL 0.1-1.0 Serum or plasma alkaline phosphatase lucien surement (enzymatic activity/volume) 62 U/L 40-136 Serum or plasma aspartate aminotransfera se measurement (enzymatic activity/volume) 22 U/L 5-34 Serum or plasma alanine aminotransferase measurement (enzymatic activity/volume) 16 U/L 0-55 Serum or plasma protein measurement (mass/volume) 6.6 g/dL 6.4-8.2 Serum or plasma albumin measurement (mass/volume) 3.6 g/dL 3.2-4.5 CALCIUM CORRECTED 9.6 mg/dL 8.5-10.1 Magnesium - 02/17/19 18:05 Magnesium 1.8 mg/dL 1.8-2.4 Serum or plasma troponin i.cardiac measu rement (mass/volume) - 02/17/19 18:05 Serum or plasma troponin i.cardiac measurement (mass/v olume) < ng/mL <0.028 Myoglobin, serum - 02/17/19 18:05 Myoglobin, serum 121.5 ng/mL 10.0-92.0 Lipase - 02/17/19 18:05 Lipase 16 U/L 8-78 Serum or plasma lithium measurement (mol es/volume) - 02/17/19 18:05 BNP level 109.0 pg/mL <100.0 Capillary blood glucose measurement by g lucometer (mass/volume) - 02/18/19 05:49 Capillary blood glucose measurement by glucometer (mas s/volume) 167 mg/dL 70-110 Complete blood count (CBC) with automate d white blood cell (WBC) differential - 02/18/19 06:30 Blood leukocytes automated count (number/volume) 5.3 10*3/uL 4.3-11.0 Blood erythrocytes automated count (number/volume) 3.75 10*6/uL 4.35-5.85 Venous blood hemoglobin measurement (mass/volume) 11.0 g/dL 13.3-17.7 Blood hematocrit (volume fraction) 34 % 40-54 Automated erythrocyte mean corpuscular volume 92 [ foz_us] 80-99 Automated erythrocyte mean corpuscular h emoglobin (mass per erythrocyte) 29 pg 25-34 Automated erythrocyte mean corpuscular h emoglobin concentration measurement (mass/volume) 32 g/dL 32-36 Automated erythrocyte distribution width ratio 13. 2 % 10.0- 14.5 Automated blood platelet count [...] 10*3 1.0-4.0 Blood monocytes automated count (number/volume) 0. 5 10*3 0.0-1.0 Automated eosinophil count 0.5 10*3/uL 0 .0-0.3 Automated blood basophil count (count/volume) 0.0 10*3/uL 0.0-0.1 Comprehensive metabolic panel - 02/18/19 06:30 Serum or plasma sodium measurement (moles/volume) 138 mmol/L 135-145 Serum or plasma potassium measurement (moles/volume) 4.0 mmol/L 3.6-5.0 Serum or plasma chloride measurement (moles/volume) 105 mmol/L 98-107 Carbon dioxide 28 mmol/L 21-32 Serum or plasma anion gap determination (moles/volume) 5 mmol/L 5-14 Serum or plasma urea nitrogen measurement (mass/volume ) 24 mg/dL 7-18 Serum or plasma creatinine measurement (mass/volume) 1.34 mg/dL 0.60-1.30 Serum or plasma urea nitrogen/creatinine mass ratio 18 NRG Serum or plasma creatinine measurement w ith calculation of estimated glomerular filtration rate 51 NRG Serum or plasma glucose measurement (mass/volume) 113 mg/dL 70-105 Serum or plasma calcium measurement (mass/volume) 8.8 mg/dL 8.5-10.1 Serum or plasma total bilirubin measurement (mass/volu me) 0.5 mg/dL 0.1-1.0 Serum or plasma alkaline phosphatase lucien surement (enzymatic activity/volume) 59 U/L 40-136 Serum or plasma aspartate aminotransfera se measurement (enzymatic activity/volume) 19 U/L 5-34 Serum [...] Serum or plasma cholesterol in HDL measurement (mass/v olume) 22 mg/dL 40-60 Cholesterol in LDL [mass/volume] in serum or plasma by direct assay 82 mg/dL 1-129 Serum or plasma cholesterol in VLDL measurement (mass/ volume) 27 mg/dL 5-40 Serum or plasma amylase measurement (enz ymatic activity/volume) - 02/18/19 06:30 Serum or plasma amylase measurement (enzymatic activit y/volume) 23 U/L 25-125 Lipase - 02/18/19 06:30 Lipase 10 U/L 8-78 Capillary blood glucose measurement by g lucometer (mass/volume) - 02/18/19 11:09 Capillary blood glucose measurement by glucometer (mas s/volume) 152 mg/dL 70-110 Capillary blood glucose measurement by g lucometer (mass/volume) - 02/18/19 16:09 Capillary blood glucose measurement by glucometer (mas s/volume) 177 mg/dL 70-110 Complete urinalysis with reflex to cultu re - 05/07/19 05:54 Urine color determination YELLOW NRG Urine clarity determination CLEAR NR G Urine pH measurement by test strip 5 5-9 Specific gravity of urine by test strip 1.020 1.016-1.022 Urine protein assay by test strip, semi-quantitative 2+ NEGATIVE Urine glucose detection by automated test strip 4+ NEGATIVE Erythrocytes detection in urine sediment by light micr oscopy NEGATIVE NEGATIVE Urine ketones detection by automated test strip NE GATIVE NEGATIVE Urine nitrite detection by test strip NEGATIVE NEGATIVE Urine total bilirubin detection by test strip NEGA TIVE NEGATIVE Urine urobilinogen measurement by automated test strip (mass/volume) NORMAL NORMAL Urine leukocyte esterase detection by dipstick NEG ATIVE NEGATIVE Automated urine sediment erythrocyte cou nt by microscopy (number/high power field) NONE NRG Automated urine sediment leukocyte count by microscopy (number/high power field) NONE NRG Bacteria detection in urine sediment by light microsco py FEW NRG Squamous epithelial cells detection in u rine sediment by light microscopy 0-2 NRG Crystals detection in urine sediment by light microsco py NONE NRG Casts detection in urine sediment by light microscopy NONE NRG Mucus detection in urine sediment by light microscopy NEGATIVE NRG Complete urinalysis with reflex to culture NO NRG Complete blood count (CBC) with automate d white blood cell (WBC) differential - 05/07/19 06:00 Blood leukocytes automated count (number/volume) 9.6 10*3/uL 4.3-11.0 Blood erythrocytes automated count (number/volume) 4.60 10*6/uL 4.35-5.85 Venous blood hemoglobin measurement (mass/volume) 13.4 g/dL 13.3-17.7 Blood hematocrit (volume fraction) 41 % 40-54 Automated erythrocyte mean corpuscular volume 88 [ foz_us] 80-99 Automated erythrocyte mean corpuscular h emoglobin (mass per erythrocyte) 29 pg 25-34 Automated erythrocyte mean corpuscular h emoglobin concentration measurement (mass/volume) 33 g/dL 32-36 Automated erythrocyte distribution width ratio 13. 5 % 10.0- 14.5 Automated blood platelet count (count/volume) 204 10*3/uL 130-400 Automated blood platelet mean volume measurement 10.2 [foz_us] 7.4-10.4 Automated blood neutrophils/100 leukocytes 77 % 42-75 Automated blood lymphocytes/100 leukocytes 17 % 12-44 Blood monocytes/100 leukocytes 4 % 0-12 Automated blood eosinophils/100 leukocytes 1 % 0-10 Automated blood basophils/100 leukocytes 0 % 0-10 Blood neutrophils automated count (number/volume) 7.4 10*3 1.8-7.8 Blood lymphocytes automated count (number/volume) 1.6 10*3 1.0-4.0 Blood monocytes automated count (number/volume) 0. 4 10*3 0.0-1.0 Automated eosinophil count 0.1 10*3/uL 0 .0-0.3 Automated blood basophil count (count/volume) 0.0 10*3/uL 0.0-0.1 Comprehensive metabolic panel - 05/07/19 06:00 Serum or plasma sodium measurement (moles/volume) 139 mmol/L 135-145 Serum or plasma potassium measurement (moles/volume) 4.8 mmol/L 3.6-5.0 Serum or plasma chloride measurement (moles/volume) 105 mmol/L 98-107 Carbon dioxide 23 mmol/L 21-32 Serum or plasma anion gap determination (moles/volume) 11 mmol/L 5-14 Serum or plasma urea nitrogen measurement (mass/volume ) 21 mg/dL 7-18 Serum or plasma creatinine measurement (mass/volume) 1.43 mg/dL 0.60-1.30 Serum or plasma urea nitrogen/creatinine mass ratio 15 NRG Serum or plasma creatinine measurement w ith calculation of estimated glomerular filtration rate 47 NRG Serum or plasma glucose measurement (mass/volume) 328 mg/dL 70-105 Serum or plasma calcium measurement (mass/volume) 9.7 mg/dL 8.5-10.1 Serum or plasma total bilirubin measurement (mass/volu me) 0.4 mg/dL 0.1-1.0 Serum or plasma alkaline phosphatase lucien surement (enzymatic activity/volume) 70 U/L 40-136 Serum or plasma aspartate aminotransfera se measurement (enzymatic activity/volume) 18 U/L 5-34 Serum or plasma alanine aminotransferase measurement (enzymatic activity/volume) 16 U/L 0-55 Serum or plasma protein measurement (mass/volume) 7.3 g/dL 6.4-8.2 Serum or plasma albumin measurement (mass/volume) 4.1 g/dL 3.2-4.5 CALCIUM CORRECTED 9.6 mg/dL 8.5-10.1 Lipase - 05/07/19 06:00 Lipase 29 U/L 8-78 Serum ragweed IgE antibody assay - 05/07 06:00 Serum ragweed IgE antibody assay 196 U/L 125-220 Complete urinalysis with reflex to cultu re - 05/07/19 10:22 Urine color determination YELLOW NRG Urine clarity determination CLEAR NR G Urine pH measurement by test strip 5 5-9 Specific gravity of urine by test strip 1.010 1.016-1.022 Urine protein assay by test strip, semi-quantitative 2+ NEGATIVE Urine glucose detection by automated test strip 4+ NEGATIVE Erythrocytes detection in urine sediment by light micr oscopy 1+ NEGATIVE Urine ketones detection by automated test strip 2+ NEGATIVE Urine nitrite detection by test strip NEGATIVE NEGATIVE Urine total bilirubin detection by test strip NEGA TIVE NEGATIVE Urine urobilinogen measurement by automated test strip (mass/volume) NORMAL NORMAL Urine leukocyte esterase detection by dipstick NEG ATIVE NEGATIVE Automated urine sediment erythrocyte cou nt by microscopy (number/high power field) NONE NRG Automated urine sediment leukocyte count by microscopy (number/high power field) NONE NRG Bacteria detection in urine sediment by light microsco py NEGATIVE NRG Squamous epithelial cells detection in u rine sediment by light microscopy NONE NRG Crystals detection in urine sediment by light microsco py NONE NRG Casts detection in urine sediment by light microscopy NONE NRG Mucus detection in urine sediment by light microscopy NEGATIVE NRG Complete urinalysis with reflex to culture NO NRG Urine drug screening test - 05/07/19 10: 22 Urine phencyclidine detection by screening method NEGATIVE NEGATIVE Urine benzodiazepines detection by screening method NEGATIVE NEGATIVE Urine cocaine detection NEGATIVE NEGATI VE Urine amphetamines detection by screening method N EGATIVE NEGATIVE Urine methamphetamine detection by screening method NEGATIVE NEGATIVE Urine cannabinoids detection by screening method N EGATIVE NEGATIVE Urine opiates detection by screening method POSITI VE NEGATIVE Urine barbiturates detection NEGATIVE N EGATIVE Screening urine tricyclic antidepressants detection NEGATIVE NEGATIVE Urine methadone detection by screening method NEGA TIVE NEGATIVE Urine oxycodone detection NEGATIVE NEGA TIVE Urine propoxyphene detection NEGATIVE N EGATIVE Capillary blood glucose measurement by g lucometer (mass/volume) - 05/07/19 14:07 Capillary blood glucose measurement by glucometer (mas s/volume) 319 mg/dL 70-110 Capillary blood glucose measurement by g lucometer (mass/volume) - 05/07/19 15:55 Capillary blood glucose measurement by glucometer (mas s/volume) 358 mg/dL 70-110 Capillary blood glucose measurement by g lucometer (mass/volume) - 05/07/19 21:08 Capillary blood glucose measurement by glucometer (mas s/volume) 199 mg/dL 70-110 Complete blood count (CBC) with automate d white blood cell (WBC) differential - 05/08/19 03:56 Blood leukocytes automated count (number/volume) 10.1 10*3/uL 4.3-11.0 Blood erythrocytes automated count (number/volume) 3.76 10*6/uL 4.35-5.85 Venous blood hemoglobin measurement (mass/volume) 10.8 g/dL 13.3-17.7 Blood hematocrit (volume fraction) 34 % 40-54 Automated erythrocyte mean corpuscular volume 91 [ foz_us] 80-99 Automated erythrocyte mean corpuscular h emoglobin (mass per erythrocyte) 29 pg 25-34 Automated erythrocyte mean corpuscular h emoglobin concentration measurement (mass/volume) 32 g/dL 32-36 Automated erythrocyte distribution width ratio 14. 3 % 10.0- 14.5 Automated blood platelet count (count/volume) 170 10*3/uL 130-400 Automated blood platelet mean volume measurement 10.2 [foz_us] 7.4-10.4 Automated blood neutrophils/100 leukocytes 80 % 42-75 Automated blood lymphocytes/100 leukocytes 14 % 12-44 Blood monocytes/100 leukocytes 6 % 0-12 Automated blood eosinophils/100 leukocytes 0 % 0-10 Automated blood basophils/100 leukocytes 0 % 0-10 Blood neutrophils automated count (number/volume) 8.0 10*3 1.8-7.8 Blood lymphocytes automated count (number/volume) 1.4 10*3 1.0-4.0 Blood monocytes automated count (number/volume) 0. 6 10*3 0.0-1.0 Automated eosinophil count 0.0 10*3/uL 0 .0-0.3 Automated blood basophil count (count/volume) 0.0 10*3/uL 0.0-0.1 Whole blood basic metabolic panel - 04/29 03:56 Serum or plasma sodium measurement (moles/volume) 141 mmol/L 135-145 Serum or plasma potassium measurement (moles/volume) 4.3 mmol/L 3.6-5.0 Serum or plasma chloride measurement (moles/volume) 110 mmol/L 98-107 Carbon dioxide 22 mmol/L 21-32 Serum or plasma anion gap determination (moles/volume) 9 mmol/L 5-14 Serum or plasma urea nitrogen measurement (mass/volume ) 23 mg/dL 7-18 Serum or plasma creatinine measurement (mass/volume) 1.42 mg/dL 0.60-1.30 Serum or plasma urea nitrogen/creatinine mass ratio 16 NRG Serum or plasma creatinine measurement w ith calculation of estimated glomerular filtration rate 47 NRG Serum or plasma glucose measurement (mass/volume) 168 mg/dL 70-105 Serum or plasma calcium measurement (mass/volume) 8.2 mg/dL 8.5-10.1 Serum or plasma phosphate measurement (m ass/volume) - 05/08/19 03:56 Serum or plasma phosphate measurement (mass/volume) 3.5 mg/dL 2.3-4.7 Magnesium - 05/08/19 03:56 Magnesium 1.5 mg/dL 1.8-2.4 Capillary blood glucose measurement by g lucometer (mass/volume) - 05/08/19 11:07 Capillary blood glucose measurement by glucometer (mas s/volume) 196 mg/dL 70-110 Capillary blood glucose measurement by g lucometer (mass/volume) - 05/08/19 15:55 Capillary blood glucose measurement by glucometer (mas s/volume) 221 mg/dL 70-110 Capillary blood glucose measurement by g lucometer (mass/volume) - 05/08/19 20:28 Capillary blood glucose measurement by glucometer (mas s/volume) 186 mg/dL 70-110 Capillary blood glucose measurement by g lucometer (mass/volume) - 05/09/19 05:08 Capillary blood glucose measurement by glucometer (mas s/volume) 233 mg/dL 70-110 Capillary blood glucose measurement by g lucometer (mass/volume) - 05/09/19 11:36 Capillary blood glucose measurement by glucometer (mas s/volume) 178 mg/dL 70-110 Capillary blood glucose measurement by g lucometer (mass/volume) - 05/09/19 16:21 Capillary blood glucose measurement by glucometer (mas s/volume) 190 mg/dL 70-110 Capillary blood glucose measurement by g lucometer (mass/volume) - 05/09/19 21:17 Capillary blood glucose measurement by glucometer (mas s/volume) 244 mg/dL 70-110 Automated blood complete blood count (he mogram) panel - 05/10/19 05:48 Blood leukocytes automated count (number/volume) 6.5 10*3/uL 4.3-11.0 Blood erythrocytes automated count (number/volume) 3.59 10*6/uL 4.35-5.85 Venous blood hemoglobin measurement (mass/volume) 10.3 g/dL 13.3-17.7 Blood hematocrit (volume fraction) 33 % 40-54 Automated erythrocyte mean corpuscular volume 92 [ foz_us] 80-99 Automated erythrocyte mean corpuscular h emoglobin (mass per erythrocyte) 29 pg 25-34 Automated erythrocyte mean corpuscular h emoglobin concentration measurement (mass/volume) 31 g/dL 32-36 Automated erythrocyte distribution width ratio 14. 0 % 10.0- 14.5 Automated blood platelet count (count/volume) 169 10*3/uL 130-400 Automated blood platelet mean volume measurement 10.4 [foz_us] 7.4-10.4 Whole blood basic metabolic panel - 04/29 01/17 05:48 Serum or plasma sodium measurement (moles/volume) 141 mmol/L 135-145 Serum or plasma potassium measurement (moles/volume) 3.9 mmol/L 3.6-5.0 Serum or plasma chloride measurement (moles/volume) 108 mmol/L 98-107 Carbon dioxide 24 mmol/L 21-32 Serum or plasma anion gap determination (moles/volume) 9 mmol/L 5-14 Serum or plasma urea nitrogen measurement (mass/volume ) 15 mg/dL 7-18 Serum or plasma creatinine measurement (mass/volume) 1.04 mg/dL 0.60-1.30 Serum or plasma urea nitrogen/creatinine mass ratio 14 NRG Serum or plasma creatinine measurement w ith calculation of estimated glomerular filtration rate > NRG Serum or plasma glucose measurement (mass/volume) 179 mg/dL 70-105 Serum or plasma calcium measurement (mass/volume) 8.5 mg/dL 8.5-10.1 Magnesium - 05/10/19 05:48 Magnesium 1.7 mg/dL 1.8-2.4 Capillary blood glucose measurement by g lucometer (mass/volume) - 05/10/19 05:57 Capillary blood glucose measurement by glucometer (mas s/volume) 165 mg/dL 70-110 Capillary blood glucose measurement by g lucometer (mass/volume) - 05/10/19 11:01 Capillary blood glucose measurement by glucometer (mas s/volume) 152 mg/dL 70-110 Capillary blood glucose measurement by g lucometer (mass/volume) - 05/10/19 16:11 Capillary blood glucose measurement by glucometer (mas s/volume) 153 mg/dL 70-110 Capillary blood glucose measurement by g lucometer (mass/volume) - 05/10/19 21:02 Capillary blood glucose measurement by glucometer (mas s/volume) 173 mg/dL 70-110 Capillary blood glucose measurement by g lucometer (mass/volume) - 05/11/19 05:48 Capillary blood glucose measurement by glucometer (mas s/volume) 181 mg/dL 70-110 Automated blood complete blood count (he mogram) panel - 05/11/19 06:01 Blood leukocytes automated count (number/volume) 6.8 10*3/uL 4.3-11.0 Blood erythrocytes automated count (number/volume) 4.02 10*6/uL 4.35-5.85 Venous blood hemoglobin measurement (mass/volume) 11.6 g/dL 13.3-17.7 Blood hematocrit (volume fraction) 37 % 40-54 Automated erythrocyte mean corpuscular volume 92 [ foz_us] 80-99 Automated erythrocyte mean corpuscular h emoglobin (mass per erythrocyte) 29 pg 25-34 Automated erythrocyte mean corpuscular h emoglobin concentration measurement (mass/volume) 31 g/dL 32-36 Automated erythrocyte distribution width ratio 13. 5 % 10.0- 14.5 Automated blood platelet count (count/volume) 189 10*3/uL 130-400 Automated blood platelet mean volume measurement 11.0 [foz_us] 7.4-10.4 Whole blood basic metabolic panel - 04/29 02/14 06:01 Serum or plasma sodium measurement (moles/volume) 141 mmol/L 135-145 Serum or plasma potassium measurement (moles/volume) 3.8 mmol/L 3.6-5.0 Serum or plasma chloride measurement (moles/volume) 106 mmol/L 98-107 Carbon dioxide 27 mmol/L 21-32 Serum or plasma anion gap determination (moles/volume) 8 mmol/L 5-14 Serum or plasma urea nitrogen measurement (mass/volume ) 14 mg/dL 7-18 Serum or plasma creatinine measurement (mass/volume) 1.01 mg/dL 0.60-1.30 Serum or plasma urea nitrogen/creatinine mass ratio 14 NRG Serum or plasma creatinine measurement w ith calculation of estimated glomerular filtration rate > NRG Serum or plasma glucose measurement (mass/volume) 153 mg/dL 70-105 Serum or plasma calcium measurement (mass/volume) 8.6 mg/dL 8.5-10.1 Magnesium - 05/11/19 06:01 Magnesium 1.6 mg/dL 1.8-2.4 Capillary blood glucose measurement by g lucometer (mass/volume) - 05/11/19 11:14 Capillary blood glucose measurement by glucometer (mas s/volume) 154 mg/dL 70-110 Capillary blood glucose measurement by g lucometer (mass/volume) - 05/11/19 15:32 Capillary blood glucose measurement by glucometer (mas s/volume) 123 mg/dL 70-110 Capillary blood glucose measurement by g lucometer (mass/volume) - 05/11/19 20:36 Capillary blood glucose measurement by glucometer (mas s/volume) 114 mg/dL 70-110 Capillary blood glucose measurement by g lucometer (mass/volume) - 05/12/19 05:14 Capillary blood glucose measurement by glucometer (mas s/volume) 97 mg/dL 70-110 Capillary blood glucose measurement by g lucometer (mass/volume) - 05/12/19 11:46 Capillary blood glucose measurement by glucometer (mas s/volume) 99 mg/dL 70-110 Capillary blood glucose measurement by g lucometer (mass/volume) - 05/12/19 15:40 Capillary blood glucose measurement by glucometer (mas s/volume) 85 mg/dL 70-110 Capillary blood glucose measurement by g lucometer (mass/volume) - 05/12/19 20:57 Capillary blood glucose measurement by glucometer (mas s/volume) 120 mg/dL 70-110 Capillary blood glucose measurement by g lucometer (mass/volume) - 05/13/19 06:00 Capillary blood glucose measurement by glucometer (mas s/volume) 92 mg/dL 70-110 Capillary blood glucose measurement by g lucometer (mass/volume) - 05/13/19 11:19 Capillary blood glucose measurement by glucometer (mas s/volume) 107 mg/dL 70-110 Capillary blood glucose measurement by g lucometer (mass/volume) - 05/13/19 15:50 Capillary blood glucose measurement by glucometer (mas s/volume) 116 mg/dL 70-110 C DIFFICILE AG + TOXIN A/B. - 05/13/19 1 6:30 RESULTS NEGATIVE FOR ANTIGEN AND TOXIN A/B NRG Capillary blood glucose measurement by g lucometer (mass/volume) - 05/13/19 20:12 Capillary blood glucose measurement by glucometer (mas s/volume) 136 mg/dL 70-110 Capillary blood glucose measurement by g lucometer (mass/volume) - 05/14/19 05:22 Capillary blood glucose measurement by glucometer (mas s/volume) 67 mg/dL 70-110 Capillary blood glucose measurement by g lucometer (mass/volume) - 05/14/19 10:56 Capillary blood glucose measurement by glucometer (mas s/volume) 84 mg/dL 70-110 Capillary blood glucose measurement by g lucometer (mass/volume) - 05/14/19 15:37 Capillary blood glucose measurement by glucometer (mas s/volume) 108 mg/dL 70-110 Capillary blood glucose measurement by g lucometer (mass/volume) - 05/14/19 20:55 Capillary blood glucose measurement by glucometer (mas s/volume) 135 mg/dL 70-110 Capillary blood glucose measurement by g lucometer (mass/volume) - 05/15/19 05:04 Capillary blood glucose measurement by glucometer (mas s/volume) 86 mg/dL 70-110 Capillary blood glucose measurement by g lucometer (mass/volume) - 05/15/19 11:00 Capillary blood glucose measurement by glucometer (mas s/volume) 124 mg/dL 70-110 Capillary blood glucose measurement by g lucometer (mass/volume) - 05/15/19 15:31 Capillary blood glucose measurement by glucometer (mas s/volume) 138 mg/dL 70-110 Capillary blood glucose measurement by g lucometer (mass/volume) - 05/15/19 21:09 Capillary blood glucose measurement by glucometer (mas s/volume) 166 mg/dL 70-110 Complete blood count (CBC) with automate d white blood cell (WBC) differential - 05/16/19 05:40 Blood leukocytes automated count (number/volume) 5.6 10*3/uL 4.3-11.0 Blood erythrocytes automated count (number/volume) 4.18 10*6/uL 4.35-5.85 Venous blood hemoglobin measurement (mass/volume) 12.1 g/dL 13.3-17.7 Blood hematocrit (volume fraction) 37 % 40-54 Automated erythrocyte mean corpuscular volume 89 [ foz_us] 80-99 Automated erythrocyte mean corpuscular h emoglobin (mass per erythrocyte) 29 pg 25-34 Automated erythrocyte mean corpuscular h emoglobin concentration measurement (mass/volume) 33 g/dL 32-36 Automated erythrocyte distribution width ratio 13. 7 % 10.0- 14.5 Automated blood platelet count (count/volume) 255 10*3/uL 130-400 Automated blood platelet mean volume measurement 10.4 [foz_us] 7.4-10.4 Automated blood neutrophils/100 leukocytes 59 % 42-75 Automated blood lymphocytes/100 leukocytes 24 % 12-44 Blood monocytes/100 leukocytes 10 % 0-12 Automated blood eosinophils/100 leukocytes 6 % 0-10 Automated blood basophils/100 leukocytes 1 % 0-10 Blood neutrophils automated count (number/volume) 3.3 10*3 1.8-7.8 Blood lymphocytes automated count (number/volume) 1.4 10*3 1.0-4.0 Blood monocytes automated count (number/volume) 0. 5 10*3 0.0-1.0 Automated eosinophil count 0.4 10*3/uL 0 .0-0.3 Automated blood basophil count (count/volume) 0.1 10*3/uL 0.0-0.1 Comprehensive metabolic panel - 05/16/19 05:40 Serum or plasma sodium measurement (moles/volume) 141 mmol/L 135-145 Serum or plasma potassium measurement (moles/volume) 4.1 mmol/L 3.6-5.0 Serum or plasma chloride measurement (moles/volume) 105 mmol/L 98-107 Carbon dioxide 26 mmol/L 21-32 Serum or plasma anion gap determination (moles/volume) 10 mmol/L 5-14 Serum or plasma urea nitrogen measurement (mass/volume ) 15 mg/dL 7-18 Serum or plasma creatinine measurement (mass/volume) 1.00 mg/dL 0.60-1.30 Serum or plasma urea nitrogen/creatinine mass ratio 15 NRG Serum or plasma creatinine measurement w ith calculation of estimated glomerular filtration rate > NRG Serum or plasma glucose measurement (mass/volume) 82 mg/dL 70-105 Serum or plasma calcium measurement (mass/volume) 9.2 mg/dL 8.5-10.1 Serum or plasma total bilirubin measurement (mass/volu me) 0.4 mg/dL 0.1-1.0 Serum or plasma alkaline phosphatase lucien surement (enzymatic activity/volume) 74 U/L 40-136 Serum or plasma aspartate aminotransfera se measurement (enzymatic activity/volume) 32 U/L 5-34 Serum or plasma alanine aminotransferase measurement (enzymatic activity/volume) 23 U/L 0-55 Serum or plasma protein measurement (mass/volume) 6.5 g/dL 6.4-8.2 Serum or plasma albumin measurement (mass/volume) 3.6 g/dL 3.2-4.5 CALCIUM CORRECTED 9.5 mg/dL 8.5-10.1 Capillary blood glucose measurement by g lucometer (mass/volume) - 05/16/19 05:41 Capillary blood glucose measurement by glucometer (mas s/volume) 83 mg/dL 70-110 Capillary blood glucose measurement by g lucometer (mass/volume) - 05/16/19 11:00 Capillary blood glucose measurement by glucometer (mas s/volume) 144 mg/dL 70-110 Capillary blood glucose measurement by g lucometer (mass/volume) - 05/16/19 15:26 Capillary blood glucose measurement by glucometer (mas s/volume) 145 mg/dL 70-110 Capillary blood glucose measurement by g lucometer (mass/volume) - 05/16/19 20:37 Capillary blood glucose measurement by glucometer (mas s/volume) 161 mg/dL 70-110 Capillary blood glucose measurement by g lucometer (mass/volume) - 05/17/19 05:16 Capillary blood glucose measurement by glucometer (mas s/volume) 91 mg/dL 70-110 Capillary blood glucose measurement by g lucometer (mass/volume) - 05/17/19 11:11 Capillary blood glucose measurement by glucometer (mas s/volume) 172 mg/dL 70-110 LIPID PANEL - 01/30/20 11:52 CHOLESTEROL, TOTAL 200 mg/dL <200 HDL CHOLESTEROL 36 mg/dL > OR = 40 TRIGLYCERIDES 186 mg/dL <150 LDL-CHOLESTEROL 132 mg/dL (calc) NRG CHOL/HDLC RATIO 5.6 (calc) <5.0 NON HDL CHOLESTEROL 164 mg/dL (calc) <13 0 Encounters ACCT No. Visit Date/Time Discharge Status Pt. Type Provider Facility Loc./Unit Complaint [id number] 01/30/2020 11:00:00 01/30/2020 23:59: 59 CLS Outpatient SANDOR VICK, [id number] 01/30/2020 11:00:00 Document Registration [id number] 05/23/2019 10:00:00 019 23:59:59 CLS Preadmit NHEAL GREENBERG DO Via [facility] ENDO RUQ ABD PAIN [id number] 05/11/2019 12:45:00 14:16:00 DIS Inpatient AGATHA PAZ DO V [facility] IRF DEBILITY [id number] 05/07/2019 14:30:00 12:45:00 DIS Inpatient GREENBERG NEHAL REDDY [facility] 4TH ISCHEMIC BOWEL [id number] 04/20/2019 09:24:00 23:59:59 CLS Outpatient GREENBERG NEHAL REDDY [facility] CARD ABDOMINAL PAIN [id number] 04/03/2019 06:33:00 23:59:59 CLS Outpatient GREENBERG NEHAL REDDY [facility] RAD RUQ ABD PAIN,RIGHT SHOU LDER PAIN [id number] 02/28/2019 15:48:00 23:59:59 CLS Outpatient INÉS WILLAMS MD [facility] RAD PAIN IN RIGHT HIP [id number] 02/17/2019 19:45:00 17:50:00 DIS Inpatient PK BURNHAM MD [facility] 4TH ABDOMINAL PAIN [id number] 02/12/2019 20:44:00 01:14:00 DIS Emergency JODEE VICK, ANTHONY Julio [facility] ER STOMACH CRAMPING,DIARRH EA [id number] 10/15/2016 11:59:00 11:10:00 DIS Inpatient AGATHA PAZ DO, V [facility] 4TH SWB-BRONCHITIS COPD [id number] 10/09/2016 22:12:00 11:59:00 DIS Inpatient PK BURNHAM MD Via [facility] 4TH SEPSIS,PNEUMONIA,HYPOXI A,RENAL INSUFFICIENCY [id number] 11/25/2015 18:25:00 20:33:00 DIS Emergency HIRAM FRAZIER DO a [facility] ER MOUTH BLEEDING [id number] 09/01/2015 16:45:00 015 10:45:00 DIS Inpatient ЕКАТЕРИНА VICK, INÉS Gan [facility] SURGICAL NAUSEA/VOMITING HEADACH E FEVER CONFUSION [id number] 02/12/2014 22:35:00 014 11:30:00 DIS Outpatient WENDY KIMBALL MD [facility] SDC VOMITING, HEMATEMESIS [id number] 10/12/2013 08:22:00 013 14:25:00 DIS Outpatient INÉS WILLAMS MD [facility] REHAB LEG AMPUTEE [id number] 10/05/2013 18:35:00 013 21:40:00 DIS Emergency HAZEL TAYLOR APRN [facility] ER MULTIPLE COMPLAINTS [id number] 01/12/2015 00:00:00 Document Registration [id number] 01/12/2015 00:00:00 Document Registration [id number] 01/12/2015 00:00:00 Document Registration [id number] 12/29/2012 12:41:00 Document Registration [id number] 09/16/2012 10:19:00 Document Registration [id number] 06/23/2012 10:50:00 Document Registration [id number] 06/15/2012 12:10:00 Document Registration [id number] 05/15/2012 15:40:00 Document Registration [id number] 05/01/2012 05:04:00 Document Registration [id number] 12/12/2011 11:47:00 Document Registration [id number] 04/10/2011 08:02:00 Document Registration [id number] 04/09/2011 23:12:00 Document Registration [id number] 11/06/2009 14:04:00 Document Registration
[2020-02-26] VITALS (29 sets, daily range): BP systolic 102–187; BP diastolic 46–85
[2020-02-26] MEDS: NS IV 1000 ML 1,000 ML IV SCH ×3 (00:43→21:19)
[2020-02-26 01:12] LABS: BILIRUBIN,URINE NEGATIVE (NEGATIVE); CLARITY,URINE CLEAR; COLOR,URINE YELLOW; GLUCOSE, URINE (UA) NEGATIVE (NEGATIVE); KETONES,URINE NEGATIVE (NEGATIVE); LEUKOCYTE ESTERASE ,URINE NEGATIVE (NEGATIVE); NITRITE,URINE NEGATIVE (NEGATIVE); PH,URINE 5.5 (5-9); PROTEIN,URINE TRACE (NEGATIVE)
[2020-02-26] MEDS ORDERED: RT-ALBUTEROL HFA (PROAIR HFA) 8.5 GM IH PRN (01:15)
[2020-02-26 01:24] LABS: BACTERIA,URINE FEW /HPF; CALCIUM OXALATE CRYSTALS,UR RARE /LPF; HYALINE CASTS, URINE RARE /LPF; SQUAMOUS EPITHELIAL CELL,UR RARE /HPF
[2020-02-26 01:25] LABS: YEAST,URINE FEW /HPF
[2020-02-26] MEDS ORDERED: HYDROcodone/APAP 5 MG/325 MG (LORTAB) TAB PO PRN (01:45)
[2020-02-26 03:37] LABS: BASOPHILS % (AUTO) 0 % (0-10); EOSINOPHILS # (AUTO) 0.1 10^3/uL (0.0-0.3); EOSINOPHILS % (AUTO) 1 % (0-10); HEMATOCRIT 35 % (40-54); HEMOGLOBIN 11.4 G/DL (13.3-17.7); LYMPHOCYTES # (AUTO) 2.1 X 10^3 (1.0-4.0); LYMPHOCYTES % (AUTO) 34 % (12-44); MEAN CORPUSCULAR HEMOGLOBIN 30 PG (25-34); MEAN CORPUSCULAR HGB CONC 32 G/DL (32-36); MEAN CORPUSCULAR VOLUME 91 FL (80-99); MEAN PLATELET VOLUME 10.3 FL (7.4-10.4); MONOCYTES # (AUTO) 0.5 X 10^3 (0.0-1.0); MONOCYTES % (AUTO) 8 % (0-12); NEUTROPHILS # (AUTO) 3.6 X 10^3 (1.8-7.8); NEUTROPHILS % (AUTO) 57 % (42-75); PLATELET COUNT 160 10^3/uL (130-400); RED CELL DISTRIBUTION WIDTH 14.2 % (10.0-14.5); WHITE BLOOD COUNT 6.3 10^3/uL (4.3-11.0)
[2020-02-26 03:50] LABS: CALCIUM 7.9 MG/DL (8.5-10.1); CREATININE SERUM 1.69 MG/DL (0.60-1.30); MAGNESIUM 1.7 MG/DL (1.6-2.4); PHOSPHORUS 4.1 MG/DL (2.3-4.7); POTASSIUM 4.2 MMOL/L (3.6-5.0)
--- NOTE | 2020-02-26 04:52 | Pulmonary Consultation ---
History of Present Illness History of Present Illness Date Seen by Provider: Feb 26, 2020 Time Seen by Provider: 04:46 Date of Admission Allergies and Home Medications Allergies Coded Allergies: No Known Drug Allergies (Verified , 10/15/09) Home Medications Amlodipine Besylate 10 Mg Tablet, 10 MG PO HS, (Reported) Ascorbate Calcium 500 Mg Tablet, 500 MG PO DAILY, (Reported) Aspirin 325 Mg Tablet.dr, 325 MG PO DAILY, (Reported) Atenolol 50 Mg Tablet, 25 MG PO HS, (Reported) TAKES 1/2 (50MG) TABLET Brimonidine Tartrate 5 Ml Drops, 1 DROP OU DAILY PRN for EYE IRRITATION, (Repor pari) Calcium Carbonate/Vitamin D3 1 Each Tablet, 1 TAB PO DAILY, (Reported) Cholestyramine/Aspartame 4 Gm Powd.pack, 4 GM PO BID WITH MEALS Prescribed by: AGATHA PAZ on 05/17/19 120 Finasteride 5 Mg Tablet, 5 MG PO DAILY, (Reported) Finasteride 5 Mg Tablet, 5 MG PO DAILY Prescribed by: AGATHA PAZ on 05/17/19 120 Furosemide 20 Mg Tablet, 20 MG PO DAILY, (Reported) LAST FILLED 01-07-19 #90 Gabapentin 300 Mg Capsule, 300 MG PO BID, (Reported) Glipizide 10 Mg Tablet, 10 MG PO HS, (Reported) Hydrocodone Bit/Acetaminophen 1 Each Tablet, 1 TAB PO Q6H PRN for PAIN-MODERATE Prescribed by: AGATHA PAZ on 05/17/19 1202 Lisinopril 20 Mg Tablet, 40 MG PO DAILY, (Reported) TAKES 2 (20MG) TABLETS Metformin HCl 1,000 Mg Tablet, 1,000 MG PO BID, (Reported) Multivit-Min/FA/Lycopene/Lut 1 Each Tablet, 1 TAB PO DAILY, (Reported) [place]-3/Dha/Epa/Fish Oil 1 Each Capsule, 1,000 MG PO BID, (Reported) Pravastatin Sodium 40 Mg Tablet, 40 MG PO HS, (Reported) Sertraline HCl 50 Mg Tablet, 50 MG PO HS, (Reported) Tamsulosin HCl 0.4 Mg Cap, 0.4 MG PO HS, (Reported) Past Sxyehbf-Qbhrhd-Wcqnik Hx Past Med/Social Hx: Reviewed Nursing Past Med/Soc Hx Patient Social History Alcohol Use: Denies Use Recreational Drug Use: No Type Used: Cigars 2nd Hand Smoke Exposure: Yes Recent Foreign Travel: No Contact w/Someone Who Travel: No Recent Infectious Disease Expo: No Recent Hopitalizations: Yes (COLON RESECTION 6-19) Physical Abuse: No Sexual Abuse: No Mistreated: No Fear: No Immunizations Up To Date Tetanus Booster (TDap): Unknown Date of Pneumonia Vaccine: Sep 29, 2012 Seasonal Allergies Seasonal Allergies: No Past Medical History Surgeries: Yes (CABG; RIGHT BKA; RIGHT LEG ARTERY BYPASS; PACEMAKER X 2) Amputation, Cardiac, CABG, Eye Surgery, Orthopedic, Pacemaker, Vascular Surgery Respiratory: Yes Pneumonia Currently Using CPAP: No Currently Using BIPAP: No Cardiac: Yes (CABG; PACEMAKER) Coronary Artery Disease, High Cholesterol, Hypertension, Peripheral Vascular Neurological: Yes Headaches /Migraines, Neuropathy Reproductive Disorders: No Genitourinary: Yes Prostate Problems Gastrointestinal: Yes Chronic Constipation 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 9.6oz. 102.369572rt; 33.00 BMI Method:Stated Exam Exam Vital Signs Date Time Temp Pulse Resp B/P (MAP) Pulse Ox O2 Delivery O2 Flow Rate FiO2 02/26/20 04:00 70 18 169/65 (99) 96 Nasal Cannula 1.00 02/26/20 03:15 70 20 133/52 (79) 98 Nasal Cannula 1.00 02/26/20 02:30 70 17 122/52 (75) 96 Nasal Cannula 1.00 02/26/20 02:00 70 18 116/49 (71) 95 Nasal Cannula 1.00 02/26/20 01:30 70 17 105/46 (65) 93 Nasal Cannula 1.00 02/26/20 01:15 70 18 102/56 (71) 94 Nasal Cannula 1.00 02/26/20 01:00 70 16 115/47 (69) 89 Nasal Cannula 1.00 02/26/20 01:00 70 02/26/20 00:59 37.7 70 97 02/26/20 00:45 71 18 117/47 (70) 98 Nasal Cannula 1.00 02/26/20 00:41 36.9 70 18 114/85 (95) 94 Nasal Cannula 1.00 02/26/20 00:35 37.7 70 18 118/51 (60) 100 Nasal Cannula 2.00 02/25/20 21:45 99 Nasal Cannula 2.00 99 02/25/20 21:41 37.7 70 20 95/43 100 02/25/20 21:22 37.7 70 20 104/61 (75) 97 Room Air I & O 02/26/20 07:00 Intake Total 3100 ml Output Total 175 ml Balance 2925 ml Height & Weight Height: 5'9.00" Weight: 226lbs. 9.6oz. 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 Norm as Tested Results Lab Laboratory Tests 02/25/20 21:06 02/26/20 03:00 Assessment/Plan Assessment/Plan Acute pneumonia r/o COVID -from home lives with -Currently on Zosyn -Harris cultures pending -Influ and strep negative -Check RVP and strep and legionella Ag abdominal pain with gastritis and fever -persistent Nausea/vomiting -Place NG tube and may need CT of abdomen/pelvis -Will hold off on CT until tomorrow and reevaluate secondary to nausea and renal failure -Check amylase lipase -repeat CMP -Add protonix -Make NPO Hx of intestinal ischemia Acute severe dehydration -IVF NS 100 cc/hr currently -Increase to 150 -s/p 3 liter bolus in ED Hypotension - improved with IVF Metabolic lactic acidosis BRETT HOPKINS DO Feb 26, 2020 04:52
[2020-02-26] MEDS ORDERED: NS (IVPB) 100 ML ONE (04:53)
[2020-02-26] MEDS ORDERED: PIPERACILLIN/TAZO 4.5 GM VIAL (ZOSYN) IV ONE (04:53)
[2020-02-26] MEDS: ENOXAPARIN 40 MG/0.4 ML (LOVENOX) SYR SC SCH (05:00)
[2020-02-26] MEDS: PIPERACILLIN/TAZO 4.5 GM/NS 100 ML IV SCH ×6 (05:00→21:17)
[2020-02-26] MEDS: morphine INJ 4 MG/ML 1 ML (VIAL/SYRINGE) IVP PRN ×2 (05:15→15:52)
[2020-02-26] MEDS: ONDANSETRON 4 MG/2 ML (SDV) Z0FRAN IV PRN ×3 (05:24→22:24)
[2020-02-26] MEDS ORDERED: PROMETHAZINE INJ 25 MG/ML (PHENERGAN) AMP IVP PRN (06:15)
[2020-02-26] MEDS ORDERED: glipiZIDE 5 MG (GLUCOTROL) TAB PO SCH (06:30)
[2020-02-26 07:06] LABS: ALBUMIN 3.4 GM/DL (3.2-4.5); BILIRUBIN,TOTAL 0.4 MG/DL (0.1-1.0); CALCIUM 7.9 MG/DL (8.5-10.1); CREATININE SERUM 1.68 MG/DL (0.60-1.30); POTASSIUM 4.2 MMOL/L (3.6-5.0); TOTAL PROTEIN 5.8 GM/DL (6.4-8.2)
[2020-02-26] MEDS ORDERED: fentaNYL INJECTION 100 MCG/2 ML AMP IVP ONE (08:00)
[2020-02-26] MEDS ORDERED: FLU QUADRIvalent (5+ YOA) 2019-2020 (AFLURIA) 0.5 ML IM ONE (08:15)
[2020-02-26] MEDS: PANTOPRAZOLE 40 MG (PROTONIX) VIAL IV SCH (08:17)
[2020-02-26] MEDS: ACETAMINOPHEN 500 MG TAB (TYLENOL) PO PRN (10:31)
--- NOTE | 2020-02-26 12:06 | Diagnostic Imaging Report ---
EXAMINATION: Chest radiograph, portable AP view. DATE: 02/26/2020 8:10 AM hours. INDICATION: 84-year-old male, nasogastric tube placement. COMPARISON: May 28, 2020. FINDINGS: The nasogastric tube is in the stomach. There is a left-sided cardiac assist device with leads. There are median sternotomy wires. Stable overall appearance of the cardiomediastinal silhouette. There is no identified pneumothorax. Stable appearance of the left lung base dating back to 2018. There is no interval focal airspace consolidation. IMPRESSION: 1. Newly placed nasogastric tube in the stomach. 2. No evidence of an acute cardiopulmonary abnormality. Dictated by: Dictated on workstation # [id number]
--- NOTE | 2020-02-26 12:06 | Diagnostic Imaging Report ---
EXAMINATION: Chest radiograph, portable AP view. DATE: 02/26/2020 3:57 AM hours. INDICATION: 84-year-old male, fever. COMPARISON: February 25, 2020. FINDINGS: There is a left-sided cardiac assist device with leads. There are median sternotomy wires. Stable overall appearance of the cardiomediastinal silhouette. There is no identified pneumothorax. There is blunting of the left lateral costophrenic angle. There is no new area of focal airspace consolidation. Overall appearance of the chest is similar to February 17, 2019. IMPRESSION: 1. No radiographic evidence of an acute cardiopulmonary abnormality. Dictated by: Dictated on workstation # [id number]
[2020-02-26] MEDS ORDERED: HYDR-3820 PO (13:32)
[2020-02-26] MEDS ORDERED: FINA5TAB6 PO (13:32)
[2020-02-26] MEDS ORDERED: LORA-404 PO (13:32)
[2020-02-26] MEDS ORDERED: ATEN25TA PO (13:32)
[2020-02-26] MEDS ORDERED: ASPI-983 PO (13:34)
[2020-02-26] MEDS ORDERED: FURO40TA4 PO (13:40)
--- NOTE | 2020-02-26 13:43 | NUR ---
UNABLE TO SPEAK WITH THE PT BUT I DID CALL HIS AND WENT THRU THE EXT MED HISTORY TO COMPLETE THE MED REC GABAPENTIN 300MG- EXT MED HISTORY SAYS DIRECTIONS OF 1 TAB TID, BUT THE PT JUST TAKES 1 CAP BID LASIX- THERE IS AN RX FOR 40MG FROM AND THEN A 20MG FROM 01-30-2020, WHEN I SPOKE WITH THE SHE SAID HE IS TAKING THE 40MG TABS STILL BUT WHEN HE IS OUT OF THE 40MG HE WILL BE SWITCHING TO THE 20MG AND HE WILL TAKE 2 TABS DAILY OTC MEDS: [employer] CALCIUM ASPIRIN
[2020-02-27] VITALS (13 sets, daily range): BP systolic 142–174; BP diastolic 55–74
[2020-02-27 03:49] LABS: BASOPHILS % (AUTO) 0 % (0-10); EOSINOPHILS % (AUTO) 0 % (0-10); HEMATOCRIT 33 % (40-54); HEMOGLOBIN 10.7 G/DL (13.3-17.7); LYMPHOCYTES # (AUTO) 1.3 X 10^3 (1.0-4.0); LYMPHOCYTES % (AUTO) 16 % (12-44); MEAN CORPUSCULAR HEMOGLOBIN 30 PG (25-34); MEAN CORPUSCULAR HGB CONC 32 G/DL (32-36); MEAN CORPUSCULAR VOLUME 91 FL (80-99); MEAN PLATELET VOLUME 10.2 FL (7.4-10.4); MONOCYTES # (AUTO) 0.7 X 10^3 (0.0-1.0); MONOCYTES % (AUTO) 9 % (0-12); NEUTROPHILS # (AUTO) 5.8 X 10^3 (1.8-7.8); NEUTROPHILS % (AUTO) 75 % (42-75); PLATELET COUNT 157 10^3/uL (130-400); RED CELL DISTRIBUTION WIDTH 14.3 % (10.0-14.5); WHITE BLOOD COUNT 7.7 10^3/uL (4.3-11.0)
[2020-02-27] MEDS: PIPERACILLIN/TAZO 4.5 GM/NS 100 ML IV SCH ×6 (04:02→20:12)
[2020-02-27] MEDS: NS IV 1000 ML 1,000 ML IV SCH ×2 (04:02→11:12)
[2020-02-27] MEDS: ENOXAPARIN 40 MG/0.4 ML (LOVENOX) SYR SC SCH (04:03)
[2020-02-27 04:26] LABS: CALCIUM 7.5 MG/DL (8.5-10.1); CREATININE SERUM 1.41 MG/DL (0.60-1.30); MAGNESIUM 1.7 MG/DL (1.6-2.4); PHOSPHORUS 3.4 MG/DL (2.3-4.7); POTASSIUM 4.1 MMOL/L (3.6-5.0)
--- NOTE | 2020-02-27 04:43 | Pulmonary Progress Note ---
Subjective Date Seen by a Provider: Feb 27, 2020 Time Seen by a Provider: 04:38 Subjective/Events-last exam Pt appears to be doing better. Sepsis Event Evaluation Height, Weight, BMI Height: 5'9.00" Weight: 226lbs. 9.6oz. 102.520240bl; 33.00 BMI Method:Stated Focused Exam Lactate Level 02/25/20 21:13: Lactic Acid Level 2.39*H 02/26/20 00:26: Lactic Acid Level 1.29 Time of Focused Exam: 23:20 Exam Exam Vital Signs Date Time Temp Pulse Resp B/P (MAP) Pulse Ox O2 Delivery O2 Flow Rate FiO2 02/27/20 04:00 70 21 143/55 (84) 96 Nasal Cannula 1.00 02/27/20 03:55 96 Nasal Cannula 1.00 02/27/20 03:55 36.8 Nasal Cannula 1.00 02/27/20 03:00 70 33 145/61 (89) 97 Nasal Cannula 1.00 02/27/20 02:00 72 20 159/63 (95) 98 Nasal Cannula 1.00 02/27/20 01:00 73 02/27/20 01:00 73 22 144/59 (87) 97 Nasal Cannula 1.00 02/27/20 00:30 36.7 Nasal Cannula 1.00 02/27/20 00:30 94 Nasal Cannula 1.00 02/27/20 00:00 70 22 142/60 (87) 97 Nasal Cannula 1.00 02/26/20 23:00 70 23 153/58 (89) 97 Nasal Cannula 1.00 02/26/20 22:00 70 22 162/63 (96) 96 Nasal Cannula 1.00 02/26/20 21:30 36.4 Nasal Cannula 1.00 02/26/20 21:20 96 Nasal Cannula 1.00 02/26/20 21:00 71 21 168/70 (102) 96 Nasal Cannula 1.00 02/26/20 20:00 67 20 170/67 (101) 97 Nasal Cannula 1.00 02/26/20 19:00 73 02/26/20 19:00 73 20 171/65 (100) 97 Nasal Cannula 1.00 02/26/20 18:00 72 20 155/63 (93) 96 Nasal Cannula 1.00 02/26/20 17:00 70 23 168/63 (98) 93 Nasal Cannula 1.00 02/26/20 16:02 96 Nasal Cannula 1.00 02/26/20 16:00 70 14 176/62 (100) 95 Nasal Cannula 1.00 02/26/20 15:59 Nasal Cannula 1.00 02/26/20 15:18 Room Air 02/26/20 15:00 73 25 160/56 (90) 97 Nasal Cannula 1.00 02/26/20 14:00 70 22 151/51 (84) 95 Nasal Cannula 1.00 02/26/20 13:00 70 23 163/56 (91) 95 Nasal Cannula 1.00 02/26/20 12:38 96 Nasal Cannula 1.00 02/26/20 12:31 70 02/26/20 12:00 70 22 158/56 (90) 95 Nasal Cannula 1.00 02/26/20 11:00 37.8 02/26/20 11:00 70 21 166/56 (92) 95 Nasal Cannula 1.00 02/26/20 10:50 Nasal Cannula 1.00 02/26/20 10:00 70 31 187/61 (103) 95 Nasal Cannula 3.00 02/26/20 09:52 3.00 02/26/20 09:00 70 22 154/51 (85) 98 Nasal Cannula 3.00 02/26/20 08:42 Nasal Cannula 3.00 02/26/20 08:23 Nasal Cannula 3.00 02/26/20 08:00 37.9 02/26/20 08:00 70 21 167/58 (94) 98 Nasal Cannula 1.00 02/26/20 07:00 70 18 167/59 (95) 92 Nasal Cannula 1.00 02/26/20 07:00 70 02/26/20 06:31 92 High Flow N/C 02/26/20 06:00 71 22 169/56 (93) 89 Nasal Cannula 1.00 02/26/20 05:00 72 21 184/71 (108) 90 Nasal Cannula 1.00 I & O 02/27/20 06:59 Intake Total 3360 ml Output Total 2250 ml Balance 1110 ml Height & Weight Height: 5'9.00" Weight: 226lbs. 9.6oz. 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 Norm as Tested Results Lab Laboratory Tests 02/25/20 21:06 02/26/20 03:00 02/27/20 03:36 Assessment/Plan Assessment/Plan Acute pneumonia - COVID -- Is negative -Zosyn -Harris cultures pending -Influ and strep negative -Check RVP and strep and legionella Ag abdominal pain with gastritis and fever -persistent Nausea/vomiting -Place NG tube -- in place -Clamp NG tube and continue to monitor -Denies Abdominal pain - currently -N/V currently resolved - amylase lipase - Lipase is negative -protonix -currently NPO Hx of intestinal ischemia Acute severe dehydration -IVF Metabolic lactic acidosis BRETT HOPKINS DO Feb 27, 2020 04:43
--- NOTE | 2020-02-27 06:15 | NUR ---
NG tube clamped at this time.
--- NOTE | 2020-02-27 07:31 | Diagnostic Imaging Report ---
INDICATION: Febrile illness, pulmonary infiltrates COMPARISON: 02/26/2020 TECHNIQUE: Single radiograph chest dated 02/27/2020 FINDINGS: Postsurgical changes of a CABG again noted. Pacer device is again seen with the battery pack overlying left chest. Enteric catheter is stable. The cardiac silhouette is enlarged. Decreased lung volumes with mild patchy opacities within the right midlung and left lung base. No significant pleural effusion. No pneumothorax. No acute osseous abnormality. IMPRESSION: Decreased lung volumes with minimal right midlung and left basilar atelectasis and/or infiltrate. Cardiomegaly without overt congestive heart failure. Additional stable findings as above. Dictated by: Dictated on workstation # [id number]
[2020-02-27] MEDS ORDERED: RT-ALBUTEROL SULF 2.5 MG/3 ML PRE-MIX VIAL INH PRN (09:30)
[2020-02-27] MEDS: PANTOPRAZOLE 40 MG (PROTONIX) VIAL IV SCH (10:09)
--- NOTE | 2020-02-27 10:31 | NUR ---
PT TRANSPORTED VIA HOSPITAL BED TO ROOM 417 AFTER GIVING REPORT TO CANDICE GALVAN.
--- NOTE | 2020-02-27 11:05 | NUR ---
FOUND THAT PT WAS IN ROOM -- THIS RN HAD GOTTEN REPORT FROM PRODUCTION LINE WELDER JEANNIE [id number]
--- NOTE | 2020-02-27 11:06 | History & Physical ---
HPI History of Present Illness: (Note, H&P is delayed as pt was tested for COVID19 and was therefore seen only by computer applications engineer on 02/25 to conserve PPE, test returned negative before my exam today 02/26). Pt states he came to ER because he had dry heaves and burning in his stomach which is similar to when he had pneumonia before. He reports he was using a kevin and had lots of particles in the air which he thought made him cough. He did have a fever, he is not sure how high prior to admission. He is feeling much better today, hoping he can get NG out soon. Source: patient Exam Limitations: no limitations Date seen by provider: Feb 27, 2020 Time Seen by Provider: 09:48 Attending Physician Shannon Hart MD PCP No,Local Physician Consult Date of Admission Feb 25, 2020 at 23:37 Home Medications Home Medications Reviewed patient Home Medication Reconciliation performed by pharmacy medication reconciliations control systems technician and/or nursing. Patients Allergies have been reviewed. 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 Family Medical History Family History: Diabetes mellitus GRANDMOTHER FH: leukemia G8 BROTHER Testicular cancer 19 FATHER Review of Systems ([facility]) Constitutional: fever EENTM: no symptoms reported Respiratory: cough Cardiovascular: No chest pain Gastrointestinal: abdominal pain, vomiting Genitourinary: no symptoms reported Musculoskeletal: no symptoms reported Skin: no symptoms reported Psychiatric/Neurological: No Symptoms Reported Reviewed Test Results Reviewed Test Results Lab Laboratory Tests Test 02/25/20 20:52 02/25/20 21:06 02/25/20 21:13 02/25/20 22:14 Range/Units Group A Streptococcus Screen NEGATIVE NEGATIVE White Blood Count 7.7 4.3-11.0 10^3/uL Red Blood Count 4.45 4.35-5.85 10^6/uL Hemoglobin 13.2 L 13.3-17.7 G/DL Hematocrit 40 40-54 % Mean Corpuscular Volume 90 80-99 FL Mean Corpuscular Hemoglobin 30 25-34 PG Mean Corpuscular Hemoglobin Concent 33 32-36 G/DL Red Cell Distribution Width 14.3 10.0-14.5 % Platelet Count 202 130-400 10^3/uL Mean Platelet Volume 10.8 H 7.4-10.4 FL Neutrophils (%) (Auto) 78 H 42-75 % Lymphocytes (%) (Auto) 16 12-44 % Monocytes (%) (Auto) 4 0-12 % Eosinophils (%) (Auto) 1 0-10 % Basophils (%) (Auto) 0 0-10 % Neutrophils # (Auto) 6.0 1.8-7.8 X 10^3 Lymphocytes # (Auto) 1.3 1.0-4.0 X 10^3 Monocytes # (Auto) 0.3 0.0-1.0 X 10^3 Eosinophils # (Auto) 0.1 0.0-0.3 10^3/uL Basophils # (Auto) 0.0 0.0-0.1 10^3/uL Erythrocyte Sedimentation Rate 10 0-30 MM/HR Prothrombin Time 14.4 12.2-14.7 SEC INR Comment 1.1 0.8-1.4 Activated Partial Thromboplast Time 27 24-35 SEC Sodium Level 138 135-145 MMOL/L Potassium Level 4.4 3.6-5.0 MMOL/L Chloride Level 102 98-107 MMOL/L Carbon Dioxide Level 23 21-32 MMOL/L Anion Gap 13 5-14 MMOL/L Blood Urea Nitrogen 33 H 7-18 MG/DL Creatinine 1.90 H 0.60-1.30 MG/DL Estimat Glomerular Filtration Rate 34 BUN/Creatinine Ratio 17 Glucose Level 275 H 70-105 MG/DL Calcium Level 8.9 8.5-10.1 MG/DL Corrected Calcium 8.9 8.5-10.1 MG/DL Ferritin 55.5 32.0-356.0 ng/mL Total Bilirubin 0.4 0.1-1.0 MG/DL Aspartate Amino Transf (AST/SGOT) 16 5-34 U/L Alanine Aminotransferase (ALT/SGPT) 14 0-55 U/L Alkaline Phosphatase 78 40-136 U/L Lactate Dehydrogenase 195 125-220 U/L C-Reactive Protein High Sensitivity 0.43 0.00-0.50 MG/DL B-Type Natriuretic Peptide 136.2 H <100.0 PG/ML Total Protein 6.9 6.4-8.2 GM/DL Albumin 4.0 3.2-4.5 GM/DL Procalcitonin 0.10 H <0.10 NG/ML Lactic Acid Level 2.39 *H 0.50-2.00 MMOL/L Coronavirus (COVID-19)(PCR) Negative Negative Test 02/25/20 23:37 02/26/20 00:26 02/26/20 01:00 02/26/20 03:00 Range/Units Lab Scanned Report Referred Lab Report [id number] Lactic Acid Level 1.29 0.50-2.00 MMOL/L Urine Color YELLOW Urine Clarity CLEAR Urine pH 5.5 5-9 Urine Specific [place] >=1.030 1.016-1.022 Urine Protein TRACE H NEGATIVE Urine Glucose (UA) NEGATIVE NEGATIVE Urine Ketones NEGATIVE NEGATIVE Urine Nitrite NEGATIVE NEGATIVE Urine Bilirubin NEGATIVE NEGATIVE Urine Urobilinogen 0.2 < = 1.0 MG/DL Urine Leukocyte Esterase NEGATIVE NEGATIVE Urine RBC (Auto) 2+ H NEGATIVE Urine RBC 5-10 H /HPF Urine WBC NONE /HPF Urine Squamous Epithelial Cells RARE /HPF Urine Crystals PRESENT H /LPF Urine Calcium Oxalate Crystals RARE H /LPF Urine Bacteria FEW H /HPF Urine Casts PRESENT /LPF Urine Hyaline Casts RARE /LPF Urine Mucus NEGATIVE /LPF Urine Yeast FEW H /HPF Urine Culture Indicated CULTURE PENDING Urine Legionella pneumophilia Ag Negative Streptococcus pneumoniae Antigen Negative White Blood Count 6.3 4.3-11.0 10^3/uL Red Blood Count 3.87 L 4.35-5.85 10^6/uL Hemoglobin 11.4 L 13.3-17.7 G/DL Hematocrit 35 L 40-54 % Mean Corpuscular Volume 91 80-99 FL Mean Corpuscular Hemoglobin 30 25-34 PG Mean Corpuscular Hemoglobin Concent 32 32-36 G/DL Red Cell Distribution Width 14.2 10.0-14.5 % Platelet Count 160 130-400 10^3/uL Mean Platelet Volume 10.3 7.4-10.4 FL Neutrophils (%) (Auto) 57 42-75 % Lymphocytes (%) (Auto) 34 12-44 % Monocytes (%) (Auto) 8 0-12 % Eosinophils (%) (Auto) 1 0-10 % Basophils (%) (Auto) 0 0-10 % Neutrophils # (Auto) 3.6 1.8-7.8 X 10^3 Lymphocytes # (Auto) 2.1 1.0-4.0 X 10^3 Monocytes # (Auto) 0.5 0.0-1.0 X 10^3 Eosinophils # (Auto) 0.1 0.0-0.3 10^3/uL Basophils # (Auto) 0.0 0.0-0.1 10^3/uL Sodium Level 140 135-145 MMOL/L Potassium Level 4.2 3.6-5.0 MMOL/L Chloride Level 107 98-107 MMOL/L Carbon Dioxide Level 24 21-32 MMOL/L Anion Gap 9 5-14 MMOL/L Blood Urea Nitrogen 31 H 7-18 MG/DL Creatinine 1.68 H 0.60-1.30 MG/DL Estimat Glomerular Filtration Rate 39 BUN/Creatinine Ratio 18 Glucose Level 150 H 70-105 MG/DL Calcium Level 7.9 L 8.5-10.1 MG/DL Corrected Calcium 8.4 L 8.5-10.1 MG/DL Phosphorus Level 4.1 2.3-4.7 MG/DL Magnesium Level 1.7 1.6-2.4 MG/DL Total Bilirubin 0.4 0.1-1.0 MG/DL Aspartate Amino Transf (AST/SGOT) 17 5-34 U/L Alanine Aminotransferase (ALT/SGPT) 11 0-55 U/L Alkaline Phosphatase 60 40-136 U/L Total Protein 5.8 L 6.4-8.2 GM/DL Albumin 3.4 3.2-4.5 GM/DL Amylase Level 28 25-125 U/L Lipase 12 8-78 U/L Test 02/26/20 15:00 02/27/20 03:36 Range/Units White Blood Count 7.7 4.3-11.0 10^3/uL Red Blood Count 3.61 L 4.35-5.85 10^6/uL Hemoglobin 10.7 L 13.3-17.7 G/DL Hematocrit 33 L 40-54 % Mean Corpuscular Volume 91 80-99 FL Mean Corpuscular Hemoglobin 30 25-34 PG Mean Corpuscular Hemoglobin Concent 32 32-36 G/DL Red Cell Distribution Width 14.3 10.0-14.5 % Platelet Count 157 130-400 10^3/uL Mean Platelet Volume 10.2 7.4-10.4 FL Neutrophils (%) (Auto) 75 42-75 % Lymphocytes (%) (Auto) 16 12-44 % Monocytes (%) (Auto) 9 0-12 % Eosinophils (%) (Auto) 0 0-10 % Basophils (%) (Auto) 0 0-10 % Neutrophils # (Auto) 5.8 1.8-7.8 X 10^3 Lymphocytes # (Auto) 1.3 1.0-4.0 X 10^3 Monocytes # (Auto) 0.7 0.0-1.0 X 10^3 Eosinophils # (Auto) 0.0 0.0-0.3 10^3/uL Basophils # (Auto) 0.0 0.0-0.1 10^3/uL Sodium Level 141 135-145 MMOL/L Potassium Level 4.1 3.6-5.0 MMOL/L Chloride Level 109 H 98-107 MMOL/L Carbon Dioxide Level 20 L 21-32 MMOL/L Anion Gap 12 5-14 MMOL/L Blood Urea Nitrogen 25 H 7-18 MG/DL Creatinine 1.41 H 0.60-1.30 MG/DL Estimat Glomerular Filtration Rate 48 BUN/Creatinine Ratio 18 Glucose Level 209 H 70-105 MG/DL Calcium Level 7.5 L 8.5-10.1 MG/DL Phosphorus Level 3.4 2.3-4.7 MG/DL Magnesium Level 1.7 1.6-2.4 MG/DL Radiology CXR 02/24: IMPRESSION: 1. Cardiomegaly with central pulmonary vascular congestion. No overt pulmonary edema. 2. Bibasilar opacities, which may represent atelectasis, infection or edema. Physical Exam-([facility]) Physical Exam Vital Signs VS - Last 72 Hours, by Label 02/25/20 02/25/20 02/25/20 02/26/20 21:22 21:41 21:45 00:35 Temp 37.7 37.7 37.7 Pulse 70 70 70 Resp 20 20 18 B/P (MAP) 104/61 (75) 95/43 118/51 (60) Pulse Ox 97 100 99 100 O2 Delivery Room Air Nasal Cannula Nasal Cannula O2 Flow Rate 2.00 2.00 FiO2 99 02/26/20 02/26/20 02/26/20 02/26/20 00:41 00:44 00:45 00:59 Temp 36.9 37.7 Pulse 70 71 70 Resp 18 18 B/P (MAP) 114/85 (95) 117/47 (70) Pulse Ox 94 98 97 O2 Delivery Nasal Cannula Nasal Cannula Nasal Cannula O2 Flow Rate 1.00 1.00 1.00 02/26/20 02/26/20 02/26/20 02/26/20 01:00 01:00 01:15 01:30 Pulse 70 70 70 70 Resp 16 18 17 B/P (MAP) 115/47 (69) 102/56 (71) 105/46 (65) Pulse Ox 89 94 93 O2 Delivery Nasal Cannula Nasal Cannula Nasal Cannula O2 Flow Rate 1.00 1.00 1.00 02/26/20 02/26/20 02/26/20 02/26/20 02:00 02:30 03:15 04:00 Pulse 70 70 70 70 Resp 18 17 20 18 B/P (MAP) 116/49 (71) 122/52 (75) 133/52 (79) 169/65 (99) Pulse Ox 95 96 98 96 O2 Delivery Nasal Cannula Nasal Cannula Nasal Cannula Nasal Cannula O2 Flow Rate 1.00 1.00 1.00 1.00 02/26/20 02/26/20 02/26/20 02/26/20 05:00 06:00 06:31 07:00 Pulse 72 71 70 Resp 21 22 B/P (MAP) 184/71 (108) 169/56 (93) Pulse Ox 90 89 92 O2 Delivery Nasal Cannula Nasal Cannula High Flow N/C O2 Flow Rate 1.00 1.00 02/26/20 02/26/20 02/26/20 02/26/20 07:00 08:00 08:00 08:23 Temp 37.9 Pulse 70 70 Resp 18 21 B/P (MAP) 167/59 (95) 167/58 (94) Pulse Ox 92 98 O2 Delivery Nasal Cannula Nasal Cannula Nasal Cannula O2 Flow Rate 1.00 1.00 3.00 02/26/20 02/26/20 02/26/20 02/26/20 08:42 09:00 09:52 10:00 Pulse 70 70 Resp 31 B/P (MAP) 154/51 (85) 187/61 (103) Pulse Ox 98 95 O2 Delivery Nasal Cannula Nasal Cannula Nasal Cannula O2 Flow Rate 3.00 3.00 3.00 3.00 02/26/20 02/26/20 02/26/20 02/26/20 10:50 11:00 11:00 12:00 Temp 37.8 Pulse 70 70 Resp 22 B/P (MAP) 166/56 (92) 158/56 (90) Pulse Ox 95 95 O2 Delivery Nasal Cannula Nasal Cannula Nasal Cannula O2 Flow Rate 1.00 1.00 1.00 02/26/20 02/26/20 02/26/20 02/26/20 12:31 12:38 13:00 14:00 Pulse 70 70 70 Resp 22 B/P (MAP) 163/56 (91) 151/51 (84) Pulse Ox 96 95 95 O2 Delivery Nasal Cannula Nasal Cannula Nasal Cannula O2 Flow Rate 1.00 1.00 1.00 02/26/20 02/26/20 02/26/20 02/26/20 15:00 15:18 15:59 16:00 Pulse 73 70 Resp 14 B/P (MAP) 160/56 (90) 176/62 (100) Pulse Ox 97 95 O2 Delivery Nasal Cannula Room Air Nasal Cannula Nasal Cannula O2 Flow Rate 1.00 1.00 1.00 02/26/20 02/26/20 02/26/20 02/26/20 16:02 17:00 18:00 19:00 Pulse 70 72 73 Resp 23 20 20 B/P (MAP) 168/63 (98) 155/63 (93) 171/65 (100) Pulse Ox 96 93 96 97 O2 Delivery Nasal Cannula Nasal Cannula Nasal Cannula Nasal Cannula O2 Flow Rate 1.00 1.00 1.00 1.00 02/26/20 02/26/20 02/26/20 02/26/20 19:00 20:00 21:00 21:20 Pulse 73 67 71 Resp 20 21 B/P (MAP) 170/67 (101) 168/70 (102) Pulse Ox 97 96 96 O2 Delivery Nasal Cannula Nasal Cannula Nasal Cannula O2 Flow Rate 1.00 1.00 1.00 02/26/20 02/26/20 02/26/20 02/27/20 21:30 22:00 23:00 00:00 Temp 36.4 Pulse 70 70 70 Resp 22 23 22 B/P (MAP) 162/63 (96) 153/58 (89) 142/60 (87) Pulse Ox 96 97 97 O2 Delivery Nasal Cannula Nasal Cannula Nasal Cannula Nasal Cannula O2 Flow Rate 1.00 1.00 1.00 1.00 02/27/20 02/27/20 02/27/20 02/27/20 00:30 00:30 01:00 01:00 Temp 36.7 Pulse 73 73 Resp 22 B/P (MAP) 144/59 (87) Pulse Ox 94 97 O2 Delivery Nasal Cannula Nasal Cannula Nasal Cannula O2 Flow Rate 1.00 1.00 1.00 02/27/20 02/27/20 02/27/20 02/27/20 02:00 03:00 03:55 03:55 Temp 36.8 Pulse 72 70 Resp 20 33 B/P (MAP) 159/63 (95) 145/61 (89) Pulse Ox 98 97 96 O2 Delivery Nasal Cannula Nasal Cannula Nasal Cannula Nasal Cannula O2 Flow Rate 1.00 1.00 1.00 1.00 02/27/20 02/27/20 02/27/20 02/27/20 04:00 05:00 06:00 06:20 Pulse 70 70 70 Resp 21 B/P (MAP) 143/55 (84) 154/74 (100) 147/59 (88) Pulse Ox 96 96 95 97 O2 Delivery Nasal Cannula Nasal Cannula Nasal Cannula Nasal Cannula O2 Flow Rate 1.00 1.00 1.00 1.00 02/27/20 02/27/20 02/27/20 02/27/20 07:00 07:00 08:00 08:56 Pulse 70 70 70 Resp 21 B/P (MAP) 148/67 (94) 150/59 (89) Pulse Ox 96 96 96 O2 Delivery Nasal Cannula Nasal Cannula Nasal Cannula O2 Flow Rate 1.00 1.00 1.00 02/27/20 02/27/20 09:02 10:20 Temp 36.0 36.1 Pulse 70 Resp 20 B/P (MAP) 148/63 (91) Pulse Ox 93 O2 Delivery Nasal Cannula O2 Flow Rate 1.00 Capillary Refill : Less Than 3 Seconds General Appearance: no apparent distress Respiratory: lungs clear, normal breath sounds Cardiovascular: regular rate, rhythm, no murmur Gastrointestinal: normal bowel sounds, non tender, distended, other (NG in place, clamped) Extremities: no pedal edema, other (right BKA) Neurologic/Psychiatric: alert, normal mood/affect Skin: normal color, warm/dry Assessment/Plan Assessment/Plan Admission Status: Inpatient Order (span 2 midnights) Reason for Inpatient Admission: Sepsis with comorbidities (1) Pulmonary infiltrate Status: Acute Assessment & Plan: Possible pneumonia, treating with Zosyn empirically. Legionella, strep negative. COVID19 negative. Flu neg. RVP pending. (2) Acute renal failure Status: Acute Assessment & Plan: Improving with IVF, follow. Qualifiers: Qualified Codes: N17.9 - Acute kidney failure, unspecified (3) Nausea Status: Acute Assessment & Plan: Severe, likely led to hypovolemia. Improved with NG, tube clamped this morning, will check residual and possibly remove later today. 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 (4) Hypovolemia Status: Acute (5) Abdominal pain Status: Acute (6) Hypoxia Status: Acute (7) Diabetes mellitus Status: Chronic Assessment & Plan: Hold home orals due to renal function. Sliding scale insulin, diabetic diet when no longer NPO. Qualifiers: (8) Coronary artery disease Status: Chronic Assessment & Plan: Continue atenolol and aspirin, holding lisinopril and lasix due to renal function and hypovolemia. Qualifiers: Qualified Codes: I25.810 - Atherosclerosis of coronary artery bypass graft(s) without angina pectoris (9) Cardiac pacemaker Status: Chronic (10) DVT prophylaxis Status: Acute Assessment & Plan: Enoxaparin Clinical Quality Measures DVT/VTE Risk/Contraindication: Risk Factor Score Per Nursin RFS Level Per Nursing on Admit: 4+=Very High SHANNON HART MD Feb 27, 2020 11:06
[2020-02-27] MEDS ORDERED: HYDROcodone/APAP 10 MG/325 MG (LORTAB) TAB PO PRN (11:15)
[2020-02-27] MEDS ORDERED: LORazepam 0.5 MG (ATIVAN) TABLET PO PRN (11:15)
[2020-02-27] MEDS: ASPIRIN E.C. 81 MG (ECOTRIN) TAB PO SCH (12:15)
--- NOTE | 2020-02-27 13:19 | Physician Query Clarification ---
PQ-Further Specificity Admission/Discharge Admission Date: Feb 25, 2020 at 23:37 Discharge Date: The medical record reflects the following clinical scenario: History/Risk Factors: Sepsis documented on H&P Pneumonia Hypotension Acute renal failure Clinical Findings: T 37.7,P 70, Resp 20, BP 95/43, WBC 7.7, Creatinine 1.90, Lactic acid 2.39, Blood cultures-no growth Treatment:IV Piperacillin Sod/Tazobactam Sod 4.5gm/Sodium Chloride, IV fluids. Question: Can you further specify Sepsis per the clinical indicators above? Please document a response in the Progress Notes or Discharge Summary. 1. Sepsis with severe sepsis 2. Sepsis, (no severe sepsis) 3. Other, with explanation of the clinical findings. 4. Clinically undetermined, no explanation for the clinical findings. PHYSICIAN RESPONSE Can you specify per above: Clinically undetermined Explanation/Clinical Findings Unclear if low BP and MERNA were related to hypovolemia or infection. Please remember a lack of response to the above will prompt a phone page by CDI/Coding staff. In responding to this query, please exercise your independent professional marc gment. The purpose of this communication is to more accurately reflect the complexity of your patients condition. The fact that a question is asked does not imply that any particular answer is desired or expected. Thank you for your timely response to this clarification. Requestors name: [facility] Phone # ext [phone] or [phone] THIS PHYSICIAN QUERY FORM IS A PERMANENT PART OF THE MEDICAL RECORD [employer] Feb 27, 2020 13:19 SHANNON GUTIERREZ MD Feb 29, 2020 08:19
[2020-02-27] MEDS: ACETAMINOPHEN 500 MG TAB (TYLENOL) PO PRN (15:10)
[2020-02-27 15:55] LABS: RSV PCR TEST Not Detected (Not Detected)
[2020-02-27] MEDS: GABAPENTIN 300 MG (NEURONTIN) CAP PO SCH (20:12)
[2020-02-27] MEDS ORDERED: FINASTERIDE (PROSCAR) 5 MG TAB PO SCH (21:00)
[2020-02-27] MEDS ORDERED: TAMSULOSIN 0.4 MG (FLOMAX) CAP PO SCH (21:00)
[2020-02-27] MEDS ORDERED: SERTRALINE 50 MG (ZOLOFT) TABLET PO SCH (21:00)
[2020-02-27] MEDS ORDERED: ATENOLOL 25 MG (TENORMIN) TAB PO SCH (21:00)
[2020-02-28] VITALS: BP 150/58
[2020-02-28] MEDS: NS IV 1000 ML 1,000 ML IV SCH (00:36)
[2020-02-28 04:00] VITALS: BP 144/67
[2020-02-28] MEDS: PIPERACILLIN/TAZO 4.5 GM/NS 100 ML IV SCH ×4 (04:44→12:10)
[2020-02-28] MEDS: ENOXAPARIN 40 MG/0.4 ML (LOVENOX) SYR SC SCH (04:45)
[2020-02-28 05:02] LABS: BILIRUBIN,URINE 1+ (NEGATIVE); CLARITY,URINE CLEAR; COLOR,URINE YELLOW; GLUCOSE, URINE (UA) NEGATIVE (NEGATIVE); KETONES,URINE TRACE (NEGATIVE); LEUKOCYTE ESTERASE ,URINE NEGATIVE (NEGATIVE); NITRITE,URINE NEGATIVE (NEGATIVE); PH,URINE 5.5 (5-9); PROTEIN,URINE 1+ (NEGATIVE)
[2020-02-28 05:10] LABS: BASOPHILS % (AUTO) 0 % (0-10); EOSINOPHILS # (AUTO) 0.1 10^3/uL (0.0-0.3); EOSINOPHILS % (AUTO) 1 % (0-10); HEMATOCRIT 34 % (40-54); HEMOGLOBIN 11.1 G/DL (13.3-17.7); LYMPHOCYTES # (AUTO) 1.3 X 10^3 (1.0-4.0); LYMPHOCYTES % (AUTO) 17 % (12-44); MEAN CORPUSCULAR HEMOGLOBIN 30 PG (25-34); MEAN CORPUSCULAR HGB CONC 33 G/DL (32-36); MEAN CORPUSCULAR VOLUME 92 FL (80-99); MEAN PLATELET VOLUME 10.5 FL (7.4-10.4); MONOCYTES # (AUTO) 0.5 X 10^3 (0.0-1.0); MONOCYTES % (AUTO) 7 % (0-12); NEUTROPHILS # (AUTO) 5.5 X 10^3 (1.8-7.8); NEUTROPHILS % (AUTO) 75 % (42-75); PLATELET COUNT 151 10^3/uL (130-400); RED CELL DISTRIBUTION WIDTH 14.1 % (10.0-14.5); WHITE BLOOD COUNT 7.4 10^3/uL (4.3-11.0)
[2020-02-28 05:13] LABS: CALCIUM 7.9 MG/DL (8.5-10.1); CREATININE SERUM 1.31 MG/DL (0.60-1.30); MAGNESIUM 1.8 MG/DL (1.6-2.4); PHOSPHORUS 2.8 MG/DL (2.3-4.7)
[2020-02-28 05:16] LABS: AMORPHOUS SEDIMENT,UR RARE AMOR URATES /LPF; BACTERIA,URINE NEGATIVE /HPF; CALCIUM OXALATE CRYSTALS,UR FEW /LPF; RBC,URINE 50-100 /HPF; WBC,URINE 0-2 /HPF
--- NOTE | 2020-02-28 06:28 | Pulmonary Progress Note ---
Subjective Time Seen by a Provider: 06:23 Subjective/Events-last exam pt is doing better. Sepsis Event Evaluation Height, Weight, BMI Height: 5'9.00" Weight: 226lbs. 9.6oz. 102.397491vu; 33.00 BMI Method:Stated Focused Exam Lactate Level 02/25/20 21:13: Lactic Acid Level 2.39*H 02/26/20 00:26: Lactic Acid Level 1.29 Time of Focused Exam: 23:20 Exam Exam Vital Signs Date Time Temp Pulse Resp B/P (MAP) Pulse Ox O2 Delivery O2 Flow Rate FiO2 02/28/20 04:00 36.5 70 18 144/67 (92) 92 Nasal Cannula 1.00 02/28/20 01:00 70 02/28/20 00:00 36.6 72 20 150/58 (88) 95 Nasal Cannula 1.00 02/27/20 20:25 93 Nasal Cannula 1.00 02/27/20 20:00 36.2 79 18 163/65 (97) 93 Nasal Cannula 1.00 02/27/20 19:00 70 02/27/20 18:09 89 Room Air 02/27/20 16:00 96 Nasal Cannula 1.00 02/27/20 15:40 36.4 02/27/20 15:27 36.2 70 19 166/68 (100) 92 Nasal Cannula 0.50 02/27/20 12:24 70 02/27/20 12:00 36.4 73 20 174/65 (101) 89 Room Air 02/27/20 11:05 96 Nasal Cannula 1.00 02/27/20 10:20 36.1 70 20 148/63 (91) 93 Nasal Cannula 1.00 02/27/20 09:02 36.0 02/27/20 08:56 96 Nasal Cannula 1.00 02/27/20 08:00 70 21 150/59 (89) 96 Nasal Cannula 1.00 02/27/20 07:00 70 23 148/67 (94) 96 Nasal Cannula 1.00 02/27/20 07:00 70 I & O 02/28/20 07:00 Intake Total 270 ml Output Total 1125 ml Balance -855 ml Height & Weight Height: 5'9.00" Weight: 226lbs. 9.6oz. [id number]; 33.00 BMI Method:Stated General Appearance: No Apparent Distress, WD/WN HEENT: PERRL/EOMI, Normal ENT Inspection, Pharynx Normal Neck: Normal Inspection; No JVD Respiratory: Lungs Clear, Normal Breath Sounds, No Accessory Muscle Use, No Respiratory Distress Cardiovascular: Regular Rate, Rhythm, No Edema, No Murmur Capillary Refill: Less Than 3 Seconds Gastrointestinal: normal bowel sounds, non tender, distended, other (NG in pl stas, clamped) Extremity: Normal Inspection, Non Tender, No Pedal Edema, Other (right BKA) Neurologic/Psychiatric: Alert, Oriented x3, No Motor/Sensory Deficits, Normal Mood/Affect, ring spinner II-XII Norm as Tested Results Lab Laboratory Tests 02/27/20 03:36 02/28/20 04:36 Assessment/Plan Assessment/Plan Acute pneumonia - COVID -- Is negative -Zosyn - currently -Will do home 02 qualification -Pt is ok for discharge from pulmonary standpoint. -Harris cultures are negative -Influ and strep negative - RVP and strep and legionella Ag - neg abdominal pain with gastritis and fever -persistent Nausea/vomiting - D/C NG tube -Denies Abdominal pain - currently -N/V currently resolved - amylase lipase - Lipase is negative -protonix -currently NPO Hx of intestinal ischemia Acute severe dehydration -IVF Metabolic lactic acidosis BRETT HOPKINS DO Feb 28, 2020 06:28
[2020-02-28 08:00] VITALS: BP 154/68
[2020-02-28] MEDS: ASPIRIN E.C. 81 MG (ECOTRIN) TAB PO SCH (08:21)
[2020-02-28] MEDS: PANTOPRAZOLE 40 MG (PROTONIX) VIAL IV SCH (08:22)
[2020-02-28] MEDS: GABAPENTIN 300 MG (NEURONTIN) CAP PO SCH (08:22)
--- NOTE | 2020-02-28 10:16 | NUR ---
CM/SS: Visited with pt a to plan for discharge Plan: Pt will return home with possible home care services Summary: Pt reports doing much better. Pt reports he is from home and would like to return there from here. Pt. reports he is open to having home care services, as his had it when she had a hip replaced. He reports having used [facility] - He also request that this worker call his . Phone Call to Faby Yecenia - [phone] - she reports that she will drop off some clothes for the pt. She reports having family help in the home, and that pt is very self sufficient and does yard work from his wheelchair. She feels as if home care would be a good idea and that they previously had [facility]. She thanks this worker for calling.
--- NOTE | 2020-02-28 11:00 | NUR ---
AZEVEDO REMOVED PER VERBAL ORDER FROM DR GUTIERREZ, PT TOLERATED WELL, 300ML URINE EMPTIED FROM AZEVEDO BAG.
[2020-02-28] MEDS ORDERED: CEFD300C3 PO (13:18)
--- NOTE | 2020-02-28 15:00 | NUR ---
Pastoral care visit.
--- NOTE | 2020-02-28 15:38 | Discharge Summary ---
Discharge Summary Instructions for Patient Assessment/Instructions Follow up with Michael Gomez APRN at [facility] on 03/04 at 10:40 am. Do not take lisinopril until your follow up appointment due to your kidney function. If your blood pressure is above 160/100, please call the office for recommendations. Physician to follow Patient: [facility] Discharge Diet for Home: ADA Diet Hospital Course Date of Admission: Feb 25, 2020 at 23:37 Admission Diagnosis : Family Physician/Provider: No,Local Physician Date of Discharge: 02/28/20 Discharge Diagnosis: (1) Pulmonary infiltrate Status: Acute (2) Acute renal failure Status: Acute Qualifiers: Qualified Codes: N17.9 - Acute kidney failure, unspecified (3) Nausea Status: Acute (4) Hypovolemia Status: Acute (5) Abdominal pain Status: Acute (6) Hypoxia Status: Acute (7) Diabetes mellitus Status: Chronic (8) Coronary artery disease Status: Chronic Qualifiers: Qualified Codes: I25.810 - Atherosclerosis of coronary artery bypass graft(s) without angina pectoris (9) Cardiac pacemaker Status: Chronic Hospital Course: (1) Pulmonary infiltrate Status: Acute Assessment & Plan: Possible pneumonia, treating with Zosyn empirically. Legion radha, strep negative. COVID19 negative. Flu neg. RVP pending. -RVP negative, continued on cefdinir for 5 more days on d/c. (2) Acute renal failure Status: Acute Assessment & Plan: Improving with IVF, follow. Qualifiers: Qualified Codes: N17.9 - Acute kidney failure, unspecified -Improving at d/c, cr down to 1.31, held lisinopril on d/c until follow up (3) Nausea Status: Acute Assessment & Plan: Severe, likely led to hypovolemia. Improved with NG, tube clamped this morning, will check residual and possibly remove later today. 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 02/27- NG removed, tolerated diet with no pain or vomiting (4) Hypovolemia Resolved (5) Abdominal pain Resolved (6) Hypoxia 02/27 required 1 lpm supplemental oxygen at d/c, ordered for home use (7) Diabetes mellitus Status: Chronic Assessment & Plan: Held home orals due to renal function. Sliding scale insulin, diabetic diet when no longer NPO. (8) Coronary artery disease Status: Chronic Assessment & Plan: Continued atenolol and aspirin, holding lisinopril and lasix due to renal function and hypovolemia. RESUMED lasix on d/c, still held lisinopril Qualifiers: Qualified Codes: I25.810 - Atherosclerosis of coronary artery bypass graft(s) without angina pectoris (9) Cardiac pacemaker Status: Chronic Labs and Pending Lab Test: Laboratory Tests 02/28/20 04:36: White Blood Count 7.4, Red Blood Count 3.70L, Hemoglobin 11.1L, Hematocrit 34L, Mean Corpuscular Volume 92, Mean Corpuscular Hemoglobin 30, Mean Corpuscular Hemoglobin Concent 33, Red Cell Distribution Width 14.1, Platelet Count 151, Mean Platelet Volume 10.5H, Neutrophils (%) (Auto) 75, Lymphocytes (%) (Auto) 17, Monocytes (%) (Auto) 7, Eosinophils (%) (Auto) 1, Basophils (%) (Auto) 0, Neutrophils # (Auto) 5.5, Lymphocytes # (Auto) 1.3, Monocytes # (Auto) 0.5, Eosinophils # (Auto) 0.1, Basophils # (Auto) 0.0, Sodium Level 140, Potassium Level 4.0, Chloride Level 109H, Carbon Dioxide Level 21, Anion Gap 10, Blood Urea Nitrogen 27H, Creatinine 1.31H, Estimat Glomerular Filtration Rate 52, BUN/Creatinine Ratio 21, Glucose Level 187H, Calcium Level 7.9L, Phosphorus Level 2.8, Magnesium Level 1.8 02/28/20 04:50: Urine Color YELLOW, Urine Clarity CLEAR, Urine pH 5.5, Urine Specific [place] >=1.030, Urine Protein 1+H, Urine Glucose (UA) NEGATIVE, Urine Ketones TRACEH, Urine Nitrite NEGATIVE, Urine Bilirubin 1+H, Urine Urobilinogen 0.2, Urine Leukocyte Esterase NEGATIVE, Urine RBC (Auto) 3+H, Urine RBC 50-100H, Urine WBC 0-2, Urine Squamous Epithelial Cells NONE, Urine Crystals PRESENTH, Urine Calcium Oxalate Crystals FEWH, Urine Amorphous Sediment RARE KAMILAH URATESH, Urine Bacteria NEGATIVE, Urine Casts NONE, Urine Mucus NEGATIVE, Urine Culture Indicated NO Microbiology 02/26/20 Urine Culture - Final, Complete NO GROWTH 02/26/20 MRSA Screen - Final, Complete MRSA not isolated 02/25/20 Blood Culture - Preliminary, Resulted No growth Home Meds Active Cefdinir 300 Mg Capsule 300 Mg PO BID 5 Days Reported Furosemide 40 Mg Tablet 40 Mg PO DAILY Aspirin EC (Aspirin) 81 Mg Tablet.dr 81 Mg PO DAILY Atenolol 25 Mg Tablet 25 Mg PO HS Ativan (Lorazepam) 0.5 Mg Tablet 0.5 Mg PO BID PRN Hydrocodone-Acetamin 10-325 mg (Hydrocodone/Acetaminophen) 1 Each Tablet 1 Ea PO BID PRN Finasteride 5 Mg Tablet 5 Mg PO HS Calcium 600 + Vit D 200 Tablet (Calcium Carbonate/Vitamin D3) 1 Each Tablet 1 Tab PO DAILY Flomax (Tamsulosin HCl) 0.4 Mg Cap 0.4 Mg PO HS Glipizide 10 Mg Tablet 10 Mg PO HS Metformin HCl 1,000 Mg Tablet 1,000 Mg PO BID Gabapentin 300 Mg Capsule 300 Mg PO BID Sertraline HCl 50 Mg Tablet 50 Mg PO HS Centrum Silver Tablet (Multivit-Min/FA/Lycopene/Lut) 1 Each Tablet 1 Tab PO DAILY Patient Allergies: Coded Allergies: No Known Drug Allergies (Verified , 10/15/09) Height (Feet): 5 Height (Inches): 9.00 Weight (Pounds): 226 Weight (Ounces): 9.6 Home Health Need/Face to Face Date of Face to Face: Feb 28, 2020 Clinical Findings: Instability, Non or partial weight bearing, Shortness of andria ath I have seen Pt [id number]: Yes Discharged To: Home Diagnosis/Conditions: See problem list Problems/Diagnosis/Condition: (1) Chronic respiratory failure with hypoxia (2) Pneumonia (3) COPD (chronic obstructive pulmonary disease) (4) Diabetes mellitus (5) Abdominal pain (6) Acute renal failure (7) Pulmonary infiltrate Patient is Homebound due to: Kevin fall risk due to instabilty, Shortness of breath/distress Homebound Status Due to the above stated illness, injury or surgical procedure (medical condition or diagnosis) and associated clinical findings, the patient is homebound because of his/her inability to leave home except with aid of a supportive device and/or person AND leaving the home requires a considerable and taxing effort or is medically contraindicated. Pt req the following assistanc: Wheelchair Home Health Nursing Orders Home Health Services Order: Nursing Services, Private Duty Nurse-Evaluate & Treat, Physical Therapy-Evaluate & Treat Home Health Infusion Therapy Line Start Date: Feb 25, 2020 Therapy Orders Therapy Orders: OT (must have SN or PT order), Physical Therapy, PT to assess for OT Therapy Specific Orders: Eval assistive deivces, Increase strength/endurance Certify Stmt I certify that this patient is under my care and that I, a nurse practitioner or a physician; a music library assistant working with me, had a face to face encounter that - meets the physician face to face encounter requirements with this patient as dated. Discharge Physical Exam General: Alert, No Acute Distress Lungs: Clear to Auscultation, Normal Air Movement Heart: Regular Rate, No Murmurs Abdomen: Normal Bowel Sounds, Soft, No Tenderness Extremities: No Edema Neuro: Normal Speech Psych/Mental Status: Mood NL SHANNON GUTIERREZ MD Feb 28, 2020 13:22
[2020-02-28 16:05] VITALS: BP 149/82
[2020-02-28 17:20] VITALS: BP 149/82
--- NOTE | 2020-02-28 17:26 | NUR ---
JOSE ADKINS demonstrates understanding of discharge instructions and accurately returns instructions upon questioning. Copy of Post-Discharge Instructions and Medication Discharge Instructions given to PT . JOSE ADKINS is able to manage continuing needs after discharge. Patients belongings returned to PT. Skin dry and intact; no breakdown noted. Patient discharged from [facility] on at 1720 . JOSE ADKINS left floor via WC, accompanied by RN.
== END 2020-02-28 17:20 | disposition home health service (06) | DRG 871 ==
LOC: EDUNIT# 19:42 → ER 19:44 → ICU 23:37 → 4TH 02-27 10:24
PROVIDERS: ADMIT Internal Medicine; ATTEND Family Medicine
PROC: 0D9670Z Drainage of Stomach with Drainage Device, Via Natural or Artificial Opening (ICD-10-PCS; principal; 2020-02-26)
DX: A41.9 Sepsis, unspecified organism (principal); J18.9 Pneumonia, unspecified organism; J96.11 Chronic respiratory failure with hypoxia; N17.9 Acute kidney failure, unspecified; E87.2 Acidosis; K29.70 Gastritis, unspecified, without bleeding; E86.0 Dehydration; E86.1 Hypovolemia; I95.9 Hypotension, unspecified; E11.40 Type 2 diabetes mellitus with diabetic neuropathy, unspecified; E11.51 Type 2 diabetes mellitus with diabetic peripheral angiopathy without gangrene; I25.10 Atherosclerotic heart disease of native coronary artery without angina pectoris; I10 Essential (primary) hypertension; E78.00 Pure hypercholesterolemia, unspecified; G54.6 Phantom limb syndrome with pain; N42.9 Disorder of prostate, unspecified; K59.09 Other constipation; F32.9 Major depressive disorder, single episode, unspecified; G43.909 Migraine, unspecified, not intractable, without status migrainosus; M54.2 Cervicalgia; M25.519 Pain in unspecified shoulder; Z95.0 Presence of cardiac pacemaker; Z95.1 Presence of aortocoronary bypass graft; Z87.19 Personal history of other diseases of the digestive system; Z79.84 Long term (current) use of oral hypoglycemic drugs; Z89.511 Acquired absence of right leg below knee; Z90.49 Acquired absence of other specified parts of digestive tract
CPT/HCPCS: 36415; 71045; 80048; 80053; 81000; 82150; 82728; 83605; 83615; 83690; 83735; 83880; 84100; 84145; 85025; 85610; 85652; 85730; 86141; 87040; 87081; 87088; 87430; 87449; 87631; 87635; 87804; 87899; 94664; 94761; 96361; 96365; 96375; 96376

== ENCOUNTER 2020-03-30 19:32 | Inpatient (IN) | payer MEDICARE ==
[~2020-03-30] VITALS: Ht 172.7 cm; Wt 112.1 kg
[~2020-03-30 19:32] MED LIST changes: +ASPI-983 PO; +ATEN25TA PO; +CEFD300C3 PO; +HYDR-3820 PO; +LORA-404 PO
[2020-03-30] MEDS ORDERED: NS IV 1000 ML 1,000 ML IV SCH ×3 (19:39→21:27)
--- OUTSIDE RECORDS SUMMARY | 2020-03-30 19:43 | XMS REPORT | Continuity of Care Document ---
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 10 ATHSCL HEART DISEASE OF [place] CORONARY 09/09/2015 ЕКАТЕРИНА VICK, INÉS R Ot I50. 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 9 09/09/2015 ЕКАЕТРИНА VICK, INÉS R Ot I63. 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 [...] 10/15/2016 PK BURNHAM MD Ot Z79. 84 CORRECTION (CURRENT) USE OF ORAL HYPOGLYC 10/15/2016 PK [...] DO Ot I25.10 ATHSCL HEART DISEASE OF [place] CORONARY 10/20/2016 AGATHA PAZ DO Ot I50.33 [...] HEMOPTYSIS 10/20/2016 AGATHA PAZ DO Ot Z79.84 CORRECTION (CURRENT) USE OF ORAL HYPOGLYC 10/20/2016 AGATHA [...] Ot I25. 10 ATHSCL HEART DISEASE OF [place] CORONARY 02/13/2019 ANTHONY ELLSWORTH MD Ot I73. 9 PERIPHERAL VASCULAR DISEASE, UNSPECIFIED 02/13/2019 ANTHONY ELLSWORTH MD Ot R10. 31 RIGHT LOWER QUADRANT PAIN 02/13/2019 ANTHONY ELLSWORTH MD Ot Z79. 4 CORRECTION (CURRENT) USE OF INSULIN 02/13/2019 ANTHONY ELLSWORTH MD Ot Z79. 82 FLIGHT SOFTWARE TEST ENGINEER (CURRENT) USE OF ASPIRIN 02/13/2019 ANTHONY ELLSWORTH [...] Ot I25. 10 ATHSCL HEART DISEASE OF [place] CORONARY 02/14/2019 ANTHONY ELLSWORTH MD Ot I73. 9 PERIPHERAL VASCULAR DISEASE, UNSPECIFIED 02/14/2019 ANTHONY ELLSWORTH MD Ot R10. 31 RIGHT LOWER QUADRANT PAIN 02/14/2019 ANTHONY ELLSWORTH MD Ot Z79. 4 CORRECTION (CURRENT) USE OF INSULIN 02/14/2019 ANTHONY ELLSWORTH MD Ot Z79. 82 FLIGHT SOFTWARE TEST ENGINEER (CURRENT) USE OF ASPIRIN 02/14/2019 ANTHONY ELLSWORTH [...] 22 TYPE 2 DIABETES MELLITUS W DIABETIC PACKAGING TECHNICIAN 02/18/2019 PK BURNHAM MD Ot E11. 40 [...] Ot I25. 10 ATHSCL HEART DISEASE OF [place] CORONARY 02/18/2019 PK BURNHAM MD Ot K59. 09 OTHER CONSTIPATION 02/18/2019 PK BURNHAM MD Ot N18. 3 CHRONIC KIDNEY DISEASE, STAGE 3 (MODERAT 02/18/2019 PK BURNHAM MD Ot R10. 9 UNSPECIFIED ABDOMINAL PAIN 02/18/2019 PK BURNHAM MD Ot Z79. 82 CORRECTION (CURRENT) USE OF ASPIRIN 02/18/2019 PK BURNHAM MD Ot Z79. 84 CORRECTION (CURRENT) USE OF ORAL HYPOGLYC 02/18/2019 PK BURNHAM MD Ot Z79.899 OTHER FLIGHT SOFTWARE TEST ENGINEER (CURRENT) DRUG THERAPY 02/18/2019 PK BURNHAM MD Ot Z95. 0 PRESENCE OF CARDIAC PACEMAKER 02/18/2019 PK BURNHAM MD Ot Z95. 1 PRESENCE OF AORTOCORONARY BYPASS GRAFT 02/18/2019 PK BURNHAM MD Ot E11. 22 TYPE 2 DIABETES MELLITUS W DIABETIC PACKAGING TECHNICIAN 02/18/2019 PK BURNHAM MD Ot E11. 40 [...] Ot I25. 10 ATHSCL HEART DISEASE OF [place] CORONARY 02/18/2019 PK BURNHAM MD Ot K59. 09 OTHER CONSTIPATION 02/18/2019 KP BURNHAM MD Ot N18. 3 CHRONIC KIDNEY DISEASE, STAGE 3 (MODERAT 02/18/2019 PK BURNHAM MD Ot R10. 9 UNSPECIFIED ABDOMINAL PAIN 02/18/2019 PK BURNHAM MD Ot Z79. 82 FLIGHT SOFTWARE TEST ENGINEER (CURRENT) USE OF ASPIRIN 02/18/2019 PK BURNHAM MD Ot Z79. 84 FLIGHT SOFTWARE TEST ENGINEER (CURRENT) USE OF ORAL HYPOGLYC 02/18/2019 PK BURNHAM MD Ot Z79.899 OTHER CORRECTION (CURRENT) DRUG THERAPY 02/18/2019 PK BURNHAM MD [...] Ot I25. 10 ATHSCL HEART DISEASE OF [place] CORONARY 05/11/2019 NEHAL GREENBERG DO Ot J44. 9 CHRONIC OBSTRUCTIVE PULMONARY DISEASE, U 05/11/2019 NEHAL GREENBERG DO Ot K55.039 ACUTE [...] 05/11/2019 NEHAL GREENBERG DO Ot Z79. 84 FLIGHT SOFTWARE TEST ENGINEER (CURRENT) USE OF ORAL HYPOGLYC 05/11/2019 NEHAL GREENBERG DO Ot Z89.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 05/11/2019 NEHAL RGEENBERG DO Ot Z95. 0 PRESENCE OF CARDIAC [...] Ot I25. 10 ATHSCL HEART DISEASE OF [place] CORONARY 05/11/2019 NEHAL GREENBERG DO Ot J44. 9 CHRONIC OBSTRUCTIVE PULMONARY DISEASE, U 05/11/2019 NEHAL GRENEBERG DO Ot K55.031 FOCAL (SEGMENTAL) ACUTE ISCHEMIA [...] 05/11/2019 NEHAL GREENBERG DO Ot Z79. 84 CORRECTION (CURRENT) USE OF ORAL HYPOGLYC 05/11/2019 NEHAL [...] AGATHA Ot I25.10 ATHSCL HEART DISEASE OF [place] CORONARY 05/17/2019 BRANDI REDDY AGATHA Ot J44.9 [...] Ot R53.81 OTHER MALAISE 05/17/2019 BRANDI REDDY AGATAH Ot Z48.81 5 ENCNTR FOR SURGICAL AFTCR [...] Ot M25.511 PAIN IN RIGHT SHOULDER 05/18/2019 NEHAL GREENBERG DO D Ot R10. 11 RIGHT UPPER QUADRANT PAIN 02/27/2020 SHANNON GUTIERREZ MD Ot E86 .1 HYPOVOLEMIA 02/27/2020 SHANNON GUTIERREZ MD Ot R50 .9 FEVER, UNSPECIFIED 02/27/2020 SHANNON GUTIERREZ MD Ot E86 .1 HYPOVOLEMIA 02/27/2020 SHANNON GUTIERREZ MD Ot R50 .9 FEVER, UNSPECIFIED 02/27/2020 SHANNON GUTIERREZ MD Ot E11.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 02/27/2020 SHANNON GUTIERREZ MD Ot E11.51 TYPE 2 DIABETES W DIABETIC PERIPHERAL AN 02/27/2020 SHANNON GUTIERREZ MD Ot E78.00 PURE HYPERCHOLESTEROLEMIA, UNSPECIFIED 02/27/2020 SHANNON GUTIERREZ MD Ot E86 .0 DEHYDRATION 02/27/2020 SHANNON GUTIERREZ MD Ot E86 .1 HYPOVOLEMIA 02/27/2020 SHANNON GUTIERREZ MD Ot E87 .2 ACIDOSIS 02/27/2020 SHANNON GUTIERREZ MD Ot F32 .9 MAJOR DEPRESSIVE DISORDER, SINGLE EPISOD 02/27/2020 SHANNON GUTIERREZ MD Ot G43.909 MIGRAINE, UNSP, NOT INTRACTABLE, WITHOUT 02/27/2020 SHANNON GUTIERREZ MD Ot G54 .6 PHANTOM LIMB SYNDROME WITH PAIN 02/27/2020 SHANNON GUTIERREZ MD Ot I10 ESSENTIAL (PRIMARY) HYPERTENSION 02/27/2020 SHANNON GUTIERREZ MD Ot I25.10 ATHSCL HEART DISEASE OF [place] CORONARY 02/27/2020 SHANNON GUTIERREZ MD Ot I95 .9 HYPOTENSION, UNSPECIFIED 02/27/2020 SHANNON GUTIERREZ MD Ot J18 .9 PNEUMONIA, UNSPECIFIED ORGANISM 02/27/2020 SHANNON GUTIERREZ MD Ot K29.70 GASTRITIS, UNSPECIFIED, WITHOUT BLEEDING 02/27/2020 SHANNON GUTIERREZ MD Ot K59.09 OTHER CONSTIPATION 02/27/2020 SHANNON GUTIERREZ MD Ot M25.519 PAIN IN UNSPECIFIED SHOULDER 02/27/2020 SHANNON GUTIERREZ MD Ot M54 .2 CERVICALGIA 02/27/2020 SHANNON GUTIERREZ MD, Ot M54 .9 DORSALGIA, UNSPECIFIED 02/27/2020 SHANNON GUTIERREZ MD, Ot N17 .9 ACUTE KIDNEY FAILURE, UNSPECIFIED 02/27/2020 SHANNON GUTIERREZ MD, Ot N42 .9 DISORDER OF PROSTATE, UNSPECIFIED 02/27/2020 SHANNON GUTIERREZ MD, Ot Z79.84 FLIGHT SOFTWARE TEST ENGINEER (CURRENT) USE OF ORAL HYPOGLYC 02/27/2020 SHANNON GUTIERREZ MD, Ot Z87.19 PERSONAL HISTORY OF OTHER DISEASES OF TH 02/27/2020 SHANNON GUTIERREZ MD, Ot Z89.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 02/27/2020 SHANNON GUTIERREZ MD, Ot Z90.49 ACQUIRED ABSENCE OF OTHER SPECIFIED PART 02/27/2020 SHANNON GUTIERREZ MD, Ot Z95 .0 PRESENCE OF CARDIAC PACEMAKER 02/27/2020 SHANNON GUTIERREZ MD, Ot Z95 .1 PRESENCE OF AORTOCORONARY BYPASS GRAFT 02/28/2020 SHANNON GUTIERREZ MD Ot A41 .9 SEPSIS, UNSPECIFIED ORGANISM 02/28/2020 SHANNON GUTIERREZ MD Ot E11.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 02/28/2020 SHANNON GUTIERREZ MD, Ot E11.51 TYPE 2 DIABETES W DIABETIC PERIPHERAL AN 02/28/2020 SHANNON GUTIERREZ MD Ot E78.00 PURE HYPERCHOLESTEROLEMIA, UNSPECIFIED 02/28/2020 SHANNON GUTIERREZ MD Ot E86 .0 DEHYDRATION 02/28/2020 SHANNON GUTIERREZ MD Ot E86 .1 HYPOVOLEMIA 02/28/2020 SHANNON GUTIERREZ MD Ot E87 .2 ACIDOSIS 02/28/2020 SHANNON GUTIERREZ MD Ot F32 .9 MAJOR DEPRESSIVE DISORDER, SINGLE EPISOD 02/28/2020 SHANNON GUTIERREZ MD, Ot G43.909 MIGRAINE, UNSP, NOT INTRACTABLE, WITHOUT 02/28/2020 SHANNON GUTIERREZ MD Ot G54 .6 PHANTOM LIMB SYNDROME WITH PAIN 02/28/2020 SHANNON GUTIERREZ MD Ot I10 ESSENTIAL (PRIMARY) HYPERTENSION 02/28/2020 SHANNON GUTIERREZ MD Ot I25.10 ATHSCL HEART DISEASE OF [place] CORONARY 02/28/2020 SHANNON GUTIERREZ MD, Ot I95 .9 HYPOTENSION, UNSPECIFIED 02/28/2020 SHANNON GUTIERREZ MD, Ot J18 .9 PNEUMONIA, UNSPECIFIED ORGANISM 02/28/2020 SHANNON GUTIERREZ MD Ot K29.70 GASTRITIS, UNSPECIFIED, WITHOUT BLEEDING 02/28/2020 SHANNON GUTIERREZ MD, Ot K59.09 OTHER CONSTIPATION 02/28/2020 SHANNON GUTIERREZ MD Ot M25.519 PAIN IN UNSPECIFIED SHOULDER 02/28/2020 SHANNON GUTIERREZ MD, Ot M54 .2 CERVICALGIA 02/28/2020 SHANNON GUTIERREZ MD, Ot M54 .9 DORSALGIA, UNSPECIFIED 02/28/2020 SHANNON GUTIERREZ MD, Ot N17 .9 ACUTE KIDNEY FAILURE, UNSPECIFIED 02/28/2020 SHANNON GUTIERREZ MD, Ot N42 .9 DISORDER OF PROSTATE, UNSPECIFIED 02/28/2020 SHANNON GUTIERREZ MD, Ot Z79.84 FLIGHT SOFTWARE TEST ENGINEER (CURRENT) USE OF ORAL HYPOGLYC 02/28/2020 SHANNON GUTIERREZ MD, Ot Z87.19 PERSONAL HISTORY OF OTHER DISEASES OF 02/28/2020 SHANNON GUTIERREZ MD, Ot Z89.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 02/28/2020 SHANNON GUTIERREZ MD, Ot Z90.49 ACQUIRED ABSENCE OF OTHER SPECIFIED PART 02/28/2020 SHANNON GUTIERREZ MD Ot Z95 .0 PRESENCE OF CARDIAC PACEMAKER 02/28/2020 SHANNON GUTIERREZ MD Ot Z95 .1 PRESENCE OF AORTOCORONARY BYPASS GRAFT 02/28/2020 SHANNON GUTIERREZ MD, Ot A41 .9 SEPSIS, UNSPECIFIED ORGANISM 02/28/2020 SHANNON GUTIERREZ MD Ot E11.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 02/28/2020 SHANNON GUTIERREZ MD, Ot E11.51 TYPE 2 DIABETES W DIABETIC PERIPHERAL AN 02/28/2020 SHANNON GUTIERREZ MD Ot E78.00 PURE HYPERCHOLESTEROLEMIA, UNSPECIFIED 02/28/2020 SHANNON GUTIERREZ MD Ot E86 .0 DEHYDRATION 02/28/2020 SHANNON GUTIERREZ MD Ot E86 .1 HYPOVOLEMIA 02/28/2020 SHANNON GUTIERREZ MD Ot E87 .2 ACIDOSIS 02/28/2020 SHANNON GUTIERREZ MD Ot F32 .9 MAJOR DEPRESSIVE DISORDER, SINGLE EPISOD 02/28/2020 SHANNON GUTIERREZ MD Ot G43.909 MIGRAINE, UNSP, NOT INTRACTABLE, WITHOUT 02/28/2020 SHANNON GUTIERREZ MD Ot G54 .6 PHANTOM LIMB SYNDROME WITH PAIN 02/28/2020 SHANNON GUTIERREZ MD Ot I10 ESSENTIAL (PRIMARY) HYPERTENSION 02/28/2020 SHANNON GUTIERREZ MD Ot I25.10 ATHSCL HEART DISEASE OF [place] CORONARY 02/28/2020 SHANNON GUTIERREZ MD, Ot I95 .9 HYPOTENSION, UNSPECIFIED 02/28/2020 SHANNON GUTIERREZ MD, Ot J18 .9 PNEUMONIA, UNSPECIFIED ORGANISM 02/28/2020 SHANNON GUTIERREZ MD Ot K29.70 GASTRITIS, UNSPECIFIED, WITHOUT BLEEDING 02/28/2020 SHANNON GUTIERREZ MD Ot K59.09 OTHER CONSTIPATION 02/28/2020 SHANNON GUTIERREZ MD Ot M25.519 PAIN IN UNSPECIFIED SHOULDER 02/28/2020 SHANNON GUTIERREZ MD Ot M54 .2 CERVICALGIA 02/28/2020 SHANNON GUTIERREZ MD Ot M54 .9 DORSALGIA, UNSPECIFIED 02/28/2020 SHANNON GUTIERREZ MD Ot N17 .9 ACUTE KIDNEY FAILURE, UNSPECIFIED 02/28/2020 SHANNON GUTIERREZ MD Ot N42 .9 DISORDER OF PROSTATE, UNSPECIFIED 02/28/2020 SHANNON GUTIERREZ MD Ot Z79.84 FLIGHT SOFTWARE TEST ENGINEER (CURRENT) USE OF ORAL HYPOGLYC 02/28/2020 SHANNON GUTIERREZ MD Ot Z87.19 PERSONAL HISTORY OF OTHER DISEASES OF TH 02/28/2020 SHANNON GUTIERREZ MD, Ot Z89.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 02/28/2020 SHANNON GUTIERREZ MD Ot Z90.49 ACQUIRED ABSENCE OF OTHER SPECIFIED PART 02/28/2020 SHANNON GUTIERREZ MD Ot Z95 .0 PRESENCE OF CARDIAC PACEMAKER 02/28/2020 SHANNON GUTIERREZ MD Ot Z95 .1 PRESENCE OF AORTOCORONARY BYPASS GRAFT 02/28/2020 SHANNON GUTIERREZ MD Ot A41 .9 SEPSIS, UNSPECIFIED ORGANISM 02/28/2020 SHANNON GUTIERREZ MD Ot E11.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 02/28/2020 SHANNON GUTIERREZ MD Ot E11.51 TYPE 2 DIABETES W DIABETIC PERIPHERAL AN 02/28/2020 SHANNON GUTIERREZ MD Ot E78.00 PURE HYPERCHOLESTEROLEMIA, UNSPECIFIED 02/28/2020 SHANNON GUTIERREZ MD Ot E86 .0 DEHYDRATION 02/28/2020 SHANNON GUTIERREZ MD Ot E86 .1 HYPOVOLEMIA 02/28/2020 SHANNON GUTIERREZ MD Ot E87 .2 ACIDOSIS 02/28/2020 SHANNON GUTIERREZ MD Ot F32 .9 MAJOR DEPRESSIVE DISORDER, SINGLE EPISOD 02/28/2020 SHANNON GUTIERREZ MD Ot G43.909 MIGRAINE, UNSP, NOT INTRACTABLE, WITHOUT 02/28/2020 SHANNON GUTIERREZ MD Ot G54 .6 PHANTOM LIMB SYNDROME WITH PAIN 02/28/2020 SHANNON GUTIERREZ MD Ot I10 ESSENTIAL (PRIMARY) HYPERTENSION 02/28/2020 SHANNON GUTIERREZ MD Ot I25.10 ATHSCL HEART DISEASE OF [place] CORONARY 02/28/2020 SHANNON GUTIERREZ MD Ot I95 .9 HYPOTENSION, UNSPECIFIED 02/28/2020 SHANNON GUTIERREZ MD Ot J18 .9 PNEUMONIA, UNSPECIFIED ORGANISM 02/28/2020 SHANNON GUTIERREZ MD Ot J96.11 CHRONIC RESPIRATORY FAILURE WITH HYPOXIA 02/28/2020 SHANNON GUTIERREZ MD Ot K29.70 GASTRITIS, UNSPECIFIED, WITHOUT BLEEDING 02/28/2020 SHANNON GUTIERREZ MD Ot K59.09 OTHER CONSTIPATION 02/28/2020 SHANNON GUTIERREZ MD Ot M25.519 PAIN IN UNSPECIFIED SHOULDER 02/28/2020 SHANNON GUTIERREZ MD Ot M54 .2 CERVICALGIA 02/28/2020 SHANNON GUTIERREZ MD Ot M54 .9 DORSALGIA, UNSPECIFIED 02/28/2020 SHANNON GUTIERREZ MD Ot N17 .9 ACUTE KIDNEY FAILURE, UNSPECIFIED 02/28/2020 SHANNON GUTIERREZ MD Ot N42 .9 DISORDER OF PROSTATE, UNSPECIFIED 02/28/2020 SHANNON GUTIERREZ MD Ot Z79.84 CORRECTION (CURRENT) USE OF ORAL HYPOGLYC 02/28/2020 SHANNON GUTIERREZ MD, Ot Z87.19 PERSONAL HISTORY OF OTHER DISEASES OF TH 02/28/2020 SHANNON GUTIERREZ MD, Ot Z89.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 02/28/2020 SHANNON GUTIERREZ MD, Ot Z90.49 ACQUIRED ABSENCE OF OTHER SPECIFIED PART 02/28/2020 SHANNON GUTIERREZ MD, Ot Z95 .0 PRESENCE OF CARDIAC PACEMAKER 02/28/2020 SHANNON GUTIERREZ MD, Ot Z95 .1 PRESENCE OF AORTOCORONARY BYPASS GRAFT Procedures Code Description Performed By Per formed On 02.2604/10/2011 00.40 PROC EDURE ON SINGLE VESSEL 05/04/2012 39.29 VASC SHUNT BYPASS NEC 05/04/2012 39.50 KAVEH OPLASTY OF OTHER NON- CORONARY VESSEL 05/04/2012 83.44 OTHE R FASCIECTOMY 05/04/2012 84.11 TOE AMPUTATION 05/04/2012 38.93 VENO US CATHETERIZATION NEC 05/06/2012 84.15 BELO W KNEE AMPUTAT NEC 05/09/2012 57.32 CYST OSCOPY [facility] 05/20/2012 [id number] RE SECTION OF RIGHT LARGE INTESTINE, OPEN 05/07/[id number] [place] OF STOMACH WITH DRAINAGE DEVICE 02/26/2020 Results Test Result Range Complete blood count [...] NRG Manual blood basophils/100 leukocytes 0 % NRG Blood erythrocyte morphology finding identification NORMAL NRG [...] - 10/09/16 17:05 QUANTITY OF GROWTH Isolated [facility] Bacterial blood culture [id number] [facility] Bacterial blood culture - 10/09/16 18:08 FREE TEXT EXTERNAL PROBABLE BURKHOLDERIA CEPACIA G ROUP NR QUANTITY OF GROWTH Isolated [facility] Bacterial blood culture [id number] [facility] FREE TEXT ENTRY 2 SEE COMMENTS [facility] Bacterial susceptibility panel - 6 18:08 Trimethoprim/sulfamethoxazole [...] HDL CHOLESTEROL 164 mg/dL (calc) <13 0 Streptococcus pyogenes antigen detection - 02/25/20 20:52 Streptococcus pyogenes antigen detection NEGATIVE NEGATIVE Influenza virus A and B antigen detectio n - 02/25/20 20:52 FLU RESULT NEGATIVE FOR INFLUENZA A AND B ANTIGENS BY IA NRG Bacterial throat culture - 02/25/20 20:5 2 Bacterial throat culture [facility] Complete blood count (CBC) with automate d white blood cell (WBC) differential - 02/25/20 21:06 Blood leukocytes automated count (number/volume) 7.7 10*3/uL 4.3-11.0 Blood erythrocytes automated count (number/volume) 4.45 10*6/uL 4.35-5.85 Venous blood hemoglobin measurement (mass/volume) 13.2 g/dL 13.3-17.7 Blood hematocrit (volume fraction) 40 % 40-54 Automated erythrocyte mean corpuscular volume 90 [ foz_us] 80-99 Automated erythrocyte mean corpuscular h emoglobin (mass per erythrocyte) 30 pg 25-34 Automated erythrocyte mean corpuscular h emoglobin concentration measurement (mass/volume) 33 g/dL 32-36 Automated erythrocyte distribution width ratio 14. 3 % 10.0- 14.5 Automated blood platelet count (count/volume) 202 10*3/uL 130-400 Automated blood platelet mean volume measurement 10.8 [foz_us] 7.4-10.4 Automated blood neutrophils/100 leukocytes 78 % 42-75 Automated blood lymphocytes/100 leukocytes 16 % 12-44 Blood monocytes/100 leukocytes 4 % 0-12 Automated blood eosinophils/100 leukocytes 1 % 0-10 Automated blood basophils/100 leukocytes 0 % 0-10 Blood neutrophils automated count (number/volume) 6.0 10*3 1.8-7.8 Blood lymphocytes automated count (number/volume) 1.3 10*3 1.0-4.0 Blood monocytes automated count (number/volume) 0. 3 10*3 0.0-1.0 Automated eosinophil count 0.1 10*3/uL 0 .0-0.3 Automated blood basophil count (count/volume) 0.0 10*3/uL 0.0-0.1 Comprehensive metabolic panel - 02/25/20 21:06 Serum or plasma sodium measurement (moles/volume) 138 mmol/L 135-145 Serum or plasma potassium measurement (moles/volume) 4.4 mmol/L 3.6-5.0 Serum or plasma chloride measurement (moles/volume) 102 mmol/L 98-107 Carbon dioxide 23 mmol/L 21-32 Serum or plasma anion gap determination (moles/volume) 13 mmol/L 5-14 Serum or plasma urea nitrogen measurement (mass/volume ) 33 mg/dL 7-18 Serum or plasma creatinine measurement (mass/volume) 1.90 mg/dL 0.60-1.30 Serum or plasma urea nitrogen/creatinine mass ratio 17 NRG Serum or plasma creatinine measurement w ith calculation of estimated glomerular filtration rate 34 NRG Serum or plasma glucose measurement (mass/volume) 275 mg/dL 70-105 Serum or plasma calcium measurement (mass/volume) 8.9 mg/dL 8.5-10.1 Serum or plasma total bilirubin measurement (mass/volu me) 0.4 mg/dL 0.1-1.0 Serum or plasma alkaline phosphatase lucien surement (enzymatic activity/volume) 78 U/L 40-136 Serum or plasma aspartate aminotransfera se measurement (enzymatic activity/volume) 16 U/L 5-34 Serum or plasma alanine aminotransferase measurement (enzymatic activity/volume) 14 U/L 0-55 Serum or plasma protein measurement (mass/volume) 6.9 g/dL 6.4-8.2 Serum or plasma albumin measurement (mass/volume) 4.0 g/dL 3.2-4.5 CALCIUM CORRECTED 8.9 mg/dL 8.5-10.1 Serum ragweed IgE antibody assay - 02/24 21:06 Serum ragweed IgE antibody assay 195 U/L 125-220 PROCALCITONIN (PCT) - 02/25/20 21:06 PROCALCITONIN (PCT) 0.10 ng/mL <0.10 Serum or plasma lithium measurement (mol es/volume) - 02/25/20 21:06 BNP PT 136.2 pg/mL <100.0 PT panel in platelet poor plasma by coag ulation assay - 02/25/20 21:06 Prothrombin time (PT) in platelet poor plasma by coagu lation assay 14.4 s 12.2-14.7 INR in platelet poor plasma or blood by coagulation as say 1.1 0.8-1.4 Activated partial thromboplastin time (a PTT) in platelet poor plasma bycoagulation assay - 02/25/20 21:06 Activated partial thromboplastin time (a PTT) in platelet poor plasma bycoagulation assay 27 s 24-35 Serum or plasma C reactive protein measu rement (mass/volume) - 02/25/20 21:06 Serum or plasma C reactive protein measurement (mass/v olume) 0.43 mg/dL 0.00-0.50 Erythrocyte sedimentation rate by lenny gren method - 02/25/20 21:06 Erythrocyte sedimentation rate by westergren method 10 mm 0- 30 Serum or plasma ferritin measurement (ma ss/volume) - 02/25/20 21:06 Serum or plasma ferritin measurement (mass/volume) 55.5 % 32.0-356.0 Blood lactic acid measurement (moles/vol ume) - 02/25/20 21:13 Blood lactic acid measurement (moles/volume) 2.39 mmol/L 0.50-2.00 Bacterial blood culture - 02/25/20 21:13 Bacterial blood culture NG NRG Bacterial blood culture - 02/25/20 22:10 Bacterial blood culture NG NRG SARS-CoV-2 PCR (RML) - 02/25/20 22:14 Coronavirus Ab [Units/volume] in Serum Negative Negative Serum or plasma lactate measurement (mol es/volume) - 02/26/20 00:26 Serum or plasma lactate measurement (moles/volume) 1.29 mmol/L 0.50-2.00 Complete urinalysis with reflex to cultu re - 02/26/20 01:00 Urine color determination YELLOW NRG Urine clarity determination CLEAR NR G Urine pH measurement by test strip 5.5 5-9 Specific gravity of urine by test strip >= 1.016-1.022 Urine protein assay by test strip, semi-quantitative TRACE NEGATIVE Urine glucose detection by automated test strip NE GATIVE NEGATIVE Erythrocytes detection in urine sediment by light micr oscopy 2+ NEGATIVE Urine ketones detection by automated test strip NE GATIVE NEGATIVE Urine nitrite detection by test strip NEGATIVE NEGATIVE Urine total bilirubin detection by test strip NEGA TIVE NEGATIVE Urine urobilinogen measurement by automated test strip (mass/volume) 0.2 mg/dL < = 1.0 Urine leukocyte esterase detection by dipstick NEG ATIVE NEGATIVE Automated urine sediment erythrocyte cou nt by microscopy (number/high power field) [HPF] NRG Automated urine sediment leukocyte count by microscopy (number/high power field) NONE NRG Bacteria detection in urine sediment by light microsco py FEW NRG Squamous epithelial cells detection in u rine sediment by light microscopy RARE NRG Crystals detection in urine sediment by light microsco py PRESENT NRG Casts detection in urine sediment by light microscopy PRESENT NRG Mucus detection in urine sediment by light microscopy NEGATIVE NRG Complete urinalysis with reflex to culture CULTURE PENDING NRG Yeast detection in urine sediment by light microscopy FEW NRG Hyaline casts detection in urine sediment by light shanel roscopy RARE NRG Calcium oxalate crystals detection in ur ine sediment by light microscopy RARE NRG Urine Legionella pneumophila antigen ass ay - 02/26/20 01:00 Urine Legionella pneumophila antigen assay Negativ e NRG Streptococcus pneumoniae antigen detecti on - 02/26/20 01:00 Streptococcus pneumoniae antigen detection Negativ e NRG Methicillin resistant Staphylococcus aur eus (MRSA) screening culture - 02/26/20 01:00 Methicillin resistant Staphylococcus aureus (MRSA) scr eening culture NEG NRG Bacterial urine culture - 02/26/20 01:00 Bacterial urine culture NG NRG Whole blood basic metabolic panel - 01/29 03:00 Serum or plasma sodium measurement (moles/volume) 140 mmol/L 135-145 Serum or plasma potassium measurement (moles/volume) 4.2 mmol/L 3.6-5.0 Serum or plasma chloride measurement (moles/volume) 106 mmol/L 98-107 Carbon dioxide 25 mmol/L 21-32 Serum or plasma anion gap determination (moles/volume) 9 mmol/L 5-14 Serum or plasma urea nitrogen measurement (mass/volume ) 31 mg/dL 7-18 Serum or plasma creatinine measurement (mass/volume) 1.69 mg/dL 0.60-1.30 Serum or plasma urea nitrogen/creatinine mass ratio 18 NRG Serum or plasma creatinine measurement w ith calculation of estimated glomerular filtration rate 39 NRG Serum or plasma glucose measurement (mass/volume) 149 mg/dL 70-105 Serum or plasma calcium measurement (mass/volume) 7.9 mg/dL 8.5-10.1 Serum or plasma phosphate measurement (m ass/volume) - 02/26/20 03:00 Serum or plasma phosphate measurement (mass/volume) 4.1 mg/dL 2.3-4.7 Magnesium - 02/26/20 03:00 Magnesium 1.7 mg/dL 1.6-2.4 Complete blood count (CBC) with automate d white blood cell (WBC) differential - 02/26/20 03:00 Blood leukocytes automated count (number/volume) 6.3 10*3/uL 4.3-11.0 Blood erythrocytes automated count (number/volume) 3.87 10*6/uL 4.35-5.85 Venous blood hemoglobin measurement (mass/volume) 11.4 g/dL 13.3-17.7 Blood hematocrit (volume fraction) 35 % 40-54 Automated erythrocyte mean corpuscular volume 91 [ foz_us] 80-99 Automated erythrocyte mean corpuscular h emoglobin (mass per erythrocyte) 30 pg 25-34 Automated erythrocyte mean corpuscular h emoglobin concentration measurement (mass/volume) 32 g/dL 32-36 Automated erythrocyte distribution width ratio 14. 2 % 10.0- 14.5 Automated blood platelet count (count/volume) 160 10*3/uL 130-400 Automated blood platelet mean volume measurement 10.3 [foz_us] 7.4-10.4 Automated blood neutrophils/100 leukocytes 57 % 42-75 Automated blood lymphocytes/100 leukocytes 34 % 12-44 Blood monocytes/100 leukocytes 8 % 0-12 Automated blood eosinophils/100 leukocytes 1 % 0-10 Automated blood basophils/100 leukocytes 0 % 0-10 Blood neutrophils automated count (number/volume) 3.6 10*3 1.8-7.8 Blood lymphocytes automated count (number/volume) 2.1 10*3 1.0-4.0 Blood monocytes automated count (number/volume) 0. 5 10*3 0.0-1.0 Automated eosinophil count 0.1 10*3/uL 0 .0-0.3 Automated blood basophil count (count/volume) 0.0 10*3/uL 0.0-0.1 Comprehensive metabolic panel - 02/26/20 03:00 Serum or plasma sodium measurement (moles/volume) 140 mmol/L 135-145 Serum or plasma potassium measurement (moles/volume) 4.2 mmol/L 3.6-5.0 Serum or plasma chloride measurement (moles/volume) 107 mmol/L 98-107 Carbon dioxide 24 mmol/L 21-32 Serum or plasma anion gap determination (moles/volume) 9 mmol/L 5-14 Serum or plasma urea nitrogen measurement (mass/volume ) 31 mg/dL 7-18 Serum or plasma creatinine measurement (mass/volume) 1.68 mg/dL 0.60-1.30 Serum or plasma urea nitrogen/creatinine mass ratio 18 NRG Serum or plasma creatinine measurement w ith calculation of estimated glomerular filtration rate 39 NRG Serum or plasma glucose measurement (mass/volume) 150 mg/dL 70-105 Serum or plasma calcium measurement (mass/volume) 7.9 mg/dL 8.5-10.1 Serum or plasma total bilirubin measurement (mass/volu me) 0.4 mg/dL 0.1-1.0 Serum or plasma alkaline phosphatase lucien surement (enzymatic activity/volume) 60 U/L 40-136 Serum or plasma aspartate aminotransfera se measurement (enzymatic activity/volume) 17 U/L 5-34 Serum or plasma alanine aminotransferase measurement (enzymatic activity/volume) 11 U/L 0-55 Serum or plasma protein measurement (mass/volume) 5.8 g/dL 6.4-8.2 Serum or plasma albumin measurement (mass/volume) 3.4 g/dL 3.2-4.5 CALCIUM CORRECTED 8.4 mg/dL 8.5-10.1 Serum or plasma amylase measurement (enz ymatic activity/volume) - 02/26/20 03:00 Serum or plasma amylase measurement (enzymatic activit y/volume) 28 U/L 25-125 Lipase - 02/26/20 03:00 Lipase 12 U/L 8-78 RESPIRATORY VIRUS PANEL - 02/26/20 15:00 Serum ragweed IgE antibody assay Not Detected Not Detected Serum or plasma aripiprazole measurement (mass/volume) Footnote Not Detected PARAINFLU 3 PCR Footnote Not Detected METAPNEUMO PCR Not Detected Not Detecte d Adenovirus detection, CSF, PCR Footnote Not Detected INFLUENZA A PCR Not Detected Not Detect ed INFLUENZA B PCR Not Detected Not Detect ed Complete blood count (CBC) with automate d white blood cell (WBC) differential - 02/27/20 03:36 Blood leukocytes automated count (number/volume) 7.7 10*3/uL 4.3-11.0 Blood erythrocytes automated count (number/volume) 3.61 10*6/uL 4.35-5.85 Venous blood hemoglobin measurement (mass/volume) 10.7 g/dL 13.3-17.7 Blood hematocrit (volume fraction) 33 % 40-54 Automated erythrocyte mean corpuscular volume 91 [ foz_us] 80-99 Automated erythrocyte mean corpuscular h emoglobin (mass per erythrocyte) 30 pg 25-34 Automated erythrocyte mean corpuscular h emoglobin concentration measurement (mass/volume) 32 g/dL 32-36 Automated erythrocyte distribution width ratio 14. 3 % 10.0- 14.5 Automated blood platelet count (count/volume) 157 10*3/uL 130-400 Automated blood platelet mean volume measurement 10.2 [foz_us] 7.4-10.4 Automated blood neutrophils/100 leukocytes 75 % 42-75 Automated blood lymphocytes/100 leukocytes 16 % 12-44 Blood monocytes/100 leukocytes 9 % 0-12 Automated blood eosinophils/100 leukocytes 0 % 0-10 Automated blood basophils/100 leukocytes 0 % 0-10 Blood neutrophils automated count (number/volume) 5.8 10*3 1.8-7.8 Blood lymphocytes automated count (number/volume) 1.3 10*3 1.0-4.0 Blood monocytes automated count (number/volume) 0. 7 10*3 0.0-1.0 Automated eosinophil count 0.0 10*3/uL 0 .0-0.3 Automated blood basophil count (count/volume) 0.0 10*3/uL 0.0-0.1 Whole blood basic metabolic panel - 01/29 12/18 03:36 Serum or plasma sodium measurement (moles/volume) 141 mmol/L 135-145 Serum or plasma potassium measurement (moles/volume) 4.1 mmol/L 3.6-5.0 Serum or plasma chloride measurement (moles/volume) 109 mmol/L 98-107 Carbon dioxide 20 mmol/L 21-32 Serum or plasma anion gap determination (moles/volume) 12 mmol/L 5-14 Serum or plasma urea nitrogen measurement (mass/volume ) 25 mg/dL 7-18 Serum or plasma creatinine measurement (mass/volume) 1.41 mg/dL 0.60-1.30 Serum or plasma urea nitrogen/creatinine mass ratio 18 NRG Serum or plasma creatinine measurement w ith calculation of estimated glomerular filtration rate 48 NRG Serum or plasma glucose measurement (mass/volume) 209 mg/dL 70-105 Serum or plasma calcium measurement (mass/volume) 7.5 mg/dL 8.5-10.1 Serum or plasma phosphate measurement (m ass/volume) - 02/27/20 03:36 Serum or plasma phosphate measurement (mass/volume) 3.4 mg/dL 2.3-4.7 Magnesium - 02/27/20 03:36 Magnesium 1.7 mg/dL 1.6-2.4 Whole blood basic metabolic panel - 12/18 04:36 Serum or plasma sodium measurement (moles/volume) 140 mmol/L 135-145 Serum or plasma potassium measurement (moles/volume) 4.0 mmol/L 3.6-5.0 Serum or plasma chloride measurement (moles/volume) 109 mmol/L 98-107 Carbon dioxide 21 mmol/L 21-32 Serum or plasma anion gap determination (moles/volume) 10 mmol/L 5-14 Serum or plasma urea nitrogen measurement (mass/volume ) 27 mg/dL 7-18 Serum or plasma creatinine measurement (mass/volume) 1.31 mg/dL 0.60-1.30 Serum or plasma urea nitrogen/creatinine mass ratio 21 NRG Serum or plasma creatinine measurement w ith calculation of estimated glomerular filtration rate 52 NRG Serum or plasma glucose measurement (mass/volume) 187 mg/dL 70-105 Serum or plasma calcium measurement (mass/volume) 7.9 mg/dL 8.5-10.1 Serum or plasma phosphate measurement (m ass/volume) - 02/28/20 04:36 Serum or plasma phosphate measurement (mass/volume) 2.8 mg/dL 2.3-4.7 Magnesium - 02/28/20 04:36 Magnesium 1.8 mg/dL 1.6-2.4 Complete blood count (CBC) with automate d white blood cell (WBC) differential - 02/28/20 04:36 Blood leukocytes automated count (number/volume) 7.4 10*3/uL 4.3-11.0 Blood erythrocytes automated count (number/volume) 3.70 10*6/uL 4.35-5.85 Venous blood hemoglobin measurement (mass/volume) 11.1 g/dL 13.3-17.7 Blood hematocrit (volume fraction) 34 % 40-54 Automated erythrocyte mean corpuscular volume 92 [ foz_us] 80-99 Automated erythrocyte mean corpuscular h emoglobin (mass per erythrocyte) 30 pg 25-34 Automated erythrocyte mean corpuscular h emoglobin concentration measurement (mass/volume) 33 g/dL 32-36 Automated erythrocyte distribution width ratio 14. 1 % 10.0- 14.5 Automated blood platelet count (count/volume) 151 10*3/uL 130-400 Automated blood platelet mean volume measurement 10.5 [foz_us] 7.4-10.4 Automated blood neutrophils/100 leukocytes 75 % 42-75 Automated blood lymphocytes/100 leukocytes 17 % 12-44 Blood monocytes/100 leukocytes 7 % 0-12 Automated blood eosinophils/100 leukocytes 1 % 0-10 Automated blood basophils/100 leukocytes 0 % 0-10 Blood neutrophils automated count (number/volume) 5.5 10*3 1.8-7.8 Blood lymphocytes automated count (number/volume) 1.3 10*3 1.0-4.0 Blood monocytes automated count (number/volume) 0. 5 10*3 0.0-1.0 Automated eosinophil count 0.1 10*3/uL 0 .0-0.3 Automated blood basophil count (count/volume) 0.0 10*3/uL 0.0-0.1 Complete urinalysis with reflex to cultu re - 02/28/20 04:50 Urine color determination YELLOW NRG Urine clarity determination CLEAR NR G Urine pH measurement by test strip 5.5 5-9 Specific gravity of urine by test strip >= 1.016-1.022 Urine protein assay by test strip, semi-quantitative 1+ NEGATIVE Urine glucose detection by automated test strip NE GATIVE NEGATIVE Erythrocytes detection in urine sediment by light micr oscopy 3+ NEGATIVE Urine ketones detection by automated test strip TR ANH NEGATIVE Urine nitrite detection by test strip NEGATIVE NEGATIVE Urine total bilirubin detection by test strip 1+ NEGATIVE Urine urobilinogen measurement by automated test strip (mass/volume) 0.2 mg/dL < = 1.0 Urine leukocyte esterase detection by dipstick NEG ATIVE NEGATIVE Automated urine sediment erythrocyte cou nt by microscopy (number/high power field) [HPF] NRG Automated urine sediment leukocyte count by microscopy (number/high power field) [HPF] NRG Bacteria detection in urine sediment by light microsco py NEGATIVE NRG Squamous epithelial cells detection in u rine sediment by light microscopy NONE NRG Crystals detection in urine sediment by light microsco py PRESENT NRG Casts detection in urine sediment by light microscopy NONE NRG Mucus detection in urine sediment by light microscopy NEGATIVE NRG Complete urinalysis with reflex to culture NO NRG Amorphous sediment detection in urine sediment by ligh t microscopy RARE KAMILAH URATES NRG Calcium oxalate crystals detection in ur ine sediment by light microscopy FEW NRG Encounters ACCT No. Visit Date/Time Discharge Status Pt. Type Provider Facility Loc./Unit Complaint [id number] 01/30/2020 11:00:00 01/30/2020 23:59: 59 CLS Outpatient SANDOR VICK, [facility] [id number] 01/30/2020 11:00:00 Document Registration [id number] 02/25/2020 23:37:00 17:20:00 DIS Inpatient MATT VICK, SHANNON Greco [facility] 4TH FEBRILE ILLNESS,ARF,PUL M INFILTRATES,NAUSEA [id number] 05/23/2019 10:00:00 23:59:59 CLS Preadmit NEHAL GREENBERG DO [facility] ENDO RUQ ABD PAIN [id number] 05/11/2019 12:45:00 14:16:00 DIS Inpatient PAZ DO AGATHA [facility] IRF DEBILITY [id number] 05/07/2019 14:30:00 12:45:00 DIS Inpatient NEHAL GREENBERG DO [facility] 4TH ISCHEMIC BOWEL [id number] 04/20/2019 09:24:00 23:59:59 CLS Outpatient NEHAL GREENBERG DO [facility] CARD ABDOMINAL PAIN [id number] 04/03/2019 06:33:00 23:59:59 CLS Outpatient NEHAL GREENBERG DO [facility] RAD RUQ ABD PAIN,RIGHT SHOU LDER PAIN [id number] 02/28/2019 15:48:00 23:59:59 CLS Outpatient ЕКАТЕРИНА VICK, INÉS Gan [facility] RAD PAIN IN RIGHT HIP [id number] 02/17/2019 19:45:00 03/23/2 019 17:50:00 DIS Inpatient PK BURNHAM MD [facility] 4TH ABDOMINAL PAIN [id number] 02/12/2019 20:44:00 019 01:14:00 DIS Emergency ANTHONY ELLSWORTH MD [facility] ER STOMACH CRAMPING,DIARRH EA [id number] 10/15/2016 11:59:00 016 11:10:00 DIS Inpatient BRANDI REDDY, AGATHA [facility] 4TH SWB-BRONCHITIS COPD [id number] 10/09/2016 22:12:00 11:59:00 DIS Inpatient CHACHA VICK, PK [place] [facility] 4TH SEPSIS,PNEUMONIA,HYPOXI A,RENAL INSUFFICIENCY [id number] 11/25/2015 18:25:00 015 20:33:00 DIS Emergency LISETTE FRAZIER DOA K [facility] ER MOUTH BLEEDING [id number] 09/01/2015 16:45:00 015 10:45:00 DIS Inpatient ЕКАТЕРИНА VICK, INÉS Gan [facility] SURGICAL NAUSEA/VOMITING HEADACH E FEVER CONFUSION [id number] 02/12/2014 22:35:00 014 11:30:00 DIS Outpatient WENDY KIMBALL MD [facility] SDC VOMITING, HEMATEMESIS [id number] 10/12/2013 08:22:00 013 14:25:00 DIS Outpatient INÉS WILLAMS MD R [facility] REHAB LEG AMPUTEE [id number] 10/05/2013 18:35:00 013 21:40:00 DIS Emergency HAZEL TAYLOR APRN [facility] ER MULTIPLE COMPLAINTS [id number] 01/12/2015 00:00:00 Document Registration [id number] 01/12/2015 00:00:00 Document Registration [id number] 01/12/2015 00:00:00 Document Registration [id number] 12/29/2012 12:41:00 Document Registration [id number] 09/16/2012 10:19:00 Document Registration [id number] 06/23/2012 10:50:00 Document Registration [id number] 06/15/2012 12:10:00 Document Registration [id number] 05/15/2012 15:40:00 Document Registration [id number] 05/01/2012 05:04:00 Document Registration [id number] 12/12/2011 11:47:00 Document Registration [id number] 04/10/2011 08:02:00 Document Registration [id number] 04/09/2011 23:12:00 Document Registration [id number] 11/06/2009 14:04:00 Document Registration
[2020-03-30] MEDS ORDERED: FAMOTIDINE 20MG/2ML IV (PEPCID) IVP ONE (19:45)
[2020-03-30] MEDS ORDERED: ONDANSETRON 4 MG/2 ML (SDV) Z0FRAN IVP ONE ×2 (19:45)
[2020-03-30] MEDS ORDERED: fentaNYL INJECTION 100 MCG/2 ML AMP IVP ONE ×2 (19:45→21:00)
[2020-03-30 19:50] LABS: BASOPHILS % (AUTO) 0 % (0-10); EOSINOPHILS % (AUTO) 0 % (0-10); HEMATOCRIT 37 % (40-54); HEMOGLOBIN 12.4 G/DL (13.3-17.7); LYMPHOCYTES # (AUTO) 0.7 X 10^3 (1.0-4.0); LYMPHOCYTES % (AUTO) 4 % (12-44); MEAN CORPUSCULAR HEMOGLOBIN 30 PG (25-34); MEAN CORPUSCULAR HGB CONC 34 G/DL (32-36); MEAN CORPUSCULAR VOLUME 89 FL (80-99); MEAN PLATELET VOLUME 10.4 FL (7.4-10.4); MONOCYTES # (AUTO) 0.7 X 10^3 (0.0-1.0); MONOCYTES % (AUTO) 4 % (0-12); NEUTROPHILS # (AUTO) 15.8 X 10^3 (1.8-7.8); NEUTROPHILS % (AUTO) 92 % (42-75); PLATELET COUNT 178 10^3/uL (130-400); RED CELL DISTRIBUTION WIDTH 13.7 % (10.0-14.5); WHITE BLOOD COUNT 17.2 10^3/uL (4.3-11.0)
[2020-03-30 20:00] LABS: INR 1.1 (0.8-1.4); PROTHROMBIN TIME PATIENT 14.4 SEC (12.2-14.7)
[2020-03-30] MEDS ORDERED: PIPERACILLIN SODIUM/TAZOBACTAM 4.5 GM in NS (IVPB) 100 ML IV ONE (20:00)
[2020-03-30 20:06] LABS: ANISOCYTOSIS SLIGHT; BAND NEUTROPHILS 7 %; BASOPHILS % (MANUAL) 0 %; EOSINOPHILS % (MANUAL) 0 %; LYMPHOCYTES % (MANUAL) 4 %; MONOCYTES % (MANUAL) 3 %; NEUTROPHILS % (MANUAL) 83 %; POLYCHROMASIA SLIGHT; REACTIVE LYMPHOCYTES 3 %
[2020-03-30 20:08] LABS: OCCULT BLOOD,GASTRIC FLUID POSITIVE (NEGATIVE)
[2020-03-30 20:14] LABS: ALBUMIN 3.9 GM/DL (3.2-4.5); BILIRUBIN,TOTAL 0.6 MG/DL (0.1-1.0); CALCIUM 8.8 MG/DL (8.5-10.1); CREATININE SERUM 2.15 MG/DL (0.60-1.30); POTASSIUM 4.8 MMOL/L (3.6-5.0); TOTAL PROTEIN 6.8 GM/DL (6.4-8.2)
--- NOTE | 2020-03-30 20:32 | Diagnostic Imaging Report ---
HISTORY: Right-sided chest pain. COMPARISON: 02/27/2020. TECHNIQUE: Frontal view of the chest. FINDINGS: Lung volumes are normal. There may be mild left basilar airspace opacities. Overall aeration appears mildly improved compared to the prior study. No significant pleural effusion or pneumothorax is seen. The cardiac silhouette is stable in size. Pacemaker leads appear stable. 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 IMPRESSION: Persistent left basilar airspace opacities, with overall mildly improved aeration compared to the prior exam. Dictated by: Dictated on workstation # [id number]
--- NOTE | 2020-03-30 20:45 | ED General ---
General Chief Complaint: Abdominal/GI Problems Stated Complaint: R SIDE PAIN Nursing Triage Note: TO ED ROOM 7 [facility]IA [facility] WITH C/O RIGHT SIDE ABD PAIN. STATES HAVING BOUTS OF CONSTIPATION THEN DIARRHEA. TOOK "SOME TYPE OF NAUSEA MEDICINE" AT HOME ALPINE GUIDE. Nursing Sepsis Screen: No Definite Risk Source of Information: Patient, EMS, Old Records (DARLEEN FIELDS MD) History of Present Illness Date Seen by Provider: March 30, 2020 Time Seen by Provider: 19:36 Initial Comments This 84-year-old gentleman presents to the emergency room with complaints of right-sided abdominal pain, nausea, vomiting, and fever. He arrives via EMS. He was recently admitted to the hospital for possible pneumonia, febrile illness, hypovolemia, and acute kidney injury February 24 through February 27. He has had some abdominal pain since then but this has worsened and been accompanied by vomiting for the past couple of days. Blood sugar was greater than 400 for EMS. He is alert and vital signs are stable. 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 He denies any cough or shortness of breath. He had a negative COVID-19 test on his last admission. He reports positive bowel movements alternating between diarrhea and constipation. (DARLEEN FIELDS MD) Allergies and Home Medications Allergies Coded Allergies: No Known Drug Allergies (Verified , 10/15/09) Home Medications Aspirin 81 Mg Tablet.dr, 81 MG PO DAILY, (Reported) Atenolol 25 Mg Tablet, 25 MG PO HS, (Reported) Calcium Carbonate/Vitamin D3 1 Each Tablet, 1 TAB PO DAILY, (Reported) Cefdinir 300 Mg Capsule, 300 MG PO BID Prescribed by: SHANNON GUTIERREZ on 02/28/20 1318 Finasteride 5 Mg Tablet, 5 MG PO HS, (Reported) Furosemide 40 Mg Tablet, 40 MG PO DAILY, (Reported) Gabapentin 300 Mg Capsule, 300 MG PO BID, (Reported) Glipizide 10 Mg Tablet, 10 MG PO HS, (Reported) Hydrocodone/Acetaminophen 1 Each Tablet, 1 EA PO BID PRN for PAIN-MODERATE (5- 7), (Reported) Lorazepam 0.5 Mg Tablet, 0.5 MG PO BID PRN for ANXIETY, (Reported) Metformin HCl 1,000 Mg Tablet, 1,000 MG PO BID, (Reported) Multivit-Min/FA/Lycopene/Lut 1 Each Tablet, 1 TAB PO DAILY, (Reported) Sertraline HCl 50 Mg Tablet, 50 MG PO HS, (Reported) Tamsulosin HCl 0.4 Mg Cap, 0.4 MG PO HS, (Reported) Patient Home Medication List Home Medication List Reviewed: Yes (DARLEEN FIELDS MD) Review of Systems Review of Systems Constitutional: see HPI EENTM: no symptoms reported Respiratory: no symptoms reported Cardiovascular: no symptoms reported Gastrointestinal: see HPI Genitourinary: no symptoms reported Musculoskeletal: no symptoms reported Skin: no symptoms reported Psychiatric/Neurological: No Symptoms Reported Hematologic/Lymphatic: No Symptoms Reported Immunological/Allergic: no symptoms reported (DARLEEN FIELDS MD) Past Bjrbdqd-Mxmfqp-Cvrqyo Hx Past Med/Social Hx: Reviewed and Corrections made (DARLEEN FIELDS MD) Patient Social History Alcohol Use: Occasionally Uses Recreational Drug Use: No Type Used: Cigars 2nd Hand Smoke Exposure: Yes Recent Foreign Travel: No Contact w/Someone Who Travel: No Recent Infectious Disease Expo: No Recent Hopitalizations: Yes Physical Abuse: No Sexual Abuse: No Mistreated: No Fear: No (DARLEEN FIELDS MD) Immunizations Up To Date Tetanus Booster (TDap): Unknown Date of Pneumonia Vaccine: Sep 29, 2012 (DARLEEN FIELDS MD) Seasonal Allergies Seasonal Allergies: No (DARLEEN FIELDS MD) Past Medical History Surgeries: Yes (CABG; RIGHT BKA; RIGHT LEG ARTERY BYPASS; PACEMAKER X 2) Amputation, Cardiac, CABG, Eye Surgery, Orthopedic, Pacemaker, Vascular Surgery Respiratory: Yes Pneumonia Currently Using CPAP: No Currently Using BIPAP: No Cardiac: Yes (CABG; PACEMAKER) Coronary Artery Disease, High Cholesterol, Hypertension, Peripheral Vascular Neurological: Yes Headaches /Migraines, Neuropathy Reproductive Disorders: No Genitourinary: Yes Prostate Problems, Renal Failure Gastrointestinal: Yes (iscemic bowel) Chronic Constipation 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, Non-Insulin dep HEENT: Yes Cataract Loss of Vision: Denies Hearing Impairment: Hard of Hearing Cancer: No Psychosocial: Yes Depression Integumentary: No Blood Disorders: No Adverse Reaction/Blood Tranf: No (DARLEEN FIELDS MD) Family Medical History Diabetes mellitus GRANDMOTHER FH: leukemia G8 BROTHER Testicular cancer 19 FATHER Physical Exam-Suspected Sepsis Physical Exam Vital Signs Vital Signs - First Documented 03/30/20 03/30/20 19:32 20:00 Temp 37.1 Pulse 70 Resp 18 B/P (MAP) 114/64 (81) O2 Delivery Room Air O2 Flow Rate 2.00 (HAZEL TAYLOR APRN) Vital Signs Capillary Refill : Less Than 3 Seconds (DARLEEN FIELDS MD) Blood Pressure Mean: 81 Height, Weight, BMI Height: 5'9.00" Weight: 226lbs. 9.6oz. 102.316925np; BMI Method:Stated General Appearance: WD/WN, Mild Distress HEENT: PERRL/EOMI, Normal ENT Inspection, Other (oropharynx dry) Neck: Normal Inspection Respiratory: No Accessory Muscle Use, No Respiratory Distress, Crackles (right base) Cardiovascular: Regular Rate, Rhythm, No Edema, No Murmur, Normal Peripheral Pulses Gastrointestinal: Normal Bowel Sounds, Soft, Distended (mild), Tenderness (exquisitely tender throughout the right abdomen) Extremity: Normal Inspection, No Pedal Edema, Other (right BKA) Neurologic/Psychiatric: Alert, Oriented x3, No Motor/Sensory Deficits, Normal Mood/Affect, scrubber operator II-XII Norm as Tested Skin: normal color, warm/dry (DARLEEN FIELDS MD) Focused Exam Sepsis Stage: Septic Shock Possible Source: GI Tract/Intra-Abdominal (DARLEEN FIELDS MD) Lactate Level 03/30/20 19:32: Lactic Acid Level 4.22*H (HAZEL TAYLOR APRN) Time of Focused Exam: 21:55 Respiratory: Lungs Clear, Normal Breath Sounds, No Accessory Muscle Use Cardiovascular: Regular Rate, Rhythm, No Edema, No Murmur, Normal Peripheral Pulses Capillary Refill: Less Than 3 Seconds Peripheral Pulses: 2+ Radial Pulses (L) Skin: normal color, warm/dry (DARLEEN FIELDS MD) Lactic Acid Level Laboratory Tests Test 03/30/20 19:32 Lactic Acid Level 4.22 MMOL/L (0.50-2.00) *H (HAZEL TAYLOR APRN) Within 3hrs of presentation: Admin fluids, Admin ABX, Blood cultures prior to ABX's, Focus exam, Lactate level (DARLEEN FIELDS MD) Procedures/Interventions Lumen: triple Central Line Procedure: betadine prep, sterile drapes applied, sterile dressing applied Position: internal jugular (R) Anesthesia: Lidocaine Volume Anesthetic (ccs): 5 Post Position: sutured, good blood return, position confirmed w/ CXR I discussed with him the risks including pneumothorax, carotid artery injury, infection. Discussed with them the benefits. He agrees to proceed with central line placement (HAZEL TAYLOR APRN) Progress/Results/Core Measures Suspected Sepsis Recent Fever Within 48 Hours: No Infection Criteria Present: Suspected New Infection New/Unexplained Altered Menta: No Sepsis Screen: No Definite Risk SIRS Temperature: Pulse: 70 Respiratory Rate: 18 Laboratory Tests 03/30/20 19:32: White Blood Count 17.2H 03/31/20 02:23: White Blood Count 17.9H Blood Pressure 114 /64 Mean: 81 03/30/20 22:00: Lactic Acid Level 3.80*H 03/31/20 00:34: Lactic Acid Level 2.12*H 03/31/20 02:23: Lactic Acid Level 2.00 Laboratory Tests 03/30/20 19:32: Creatinine 2.15H, INR Comment 1.1, Platelet Count 178, Total Bilirubin 0.6 03/31/20 02:23: Creatinine 1.86H, INR Comment 1.3, Platelet Count 180, Total Bilirubin 0.7 (DARLEEN FIELDS MD) Results/Orders Lab Results Laboratory Tests Test 03/30/20 19:32 03/30/20 19:54 03/30/20 20:54 Range/Units White Blood Count 17.2 H 4.3-11.0 10^3/uL Red Blood Count 4.16 L 4.35-5.85 10^6/uL Hemoglobin 12.4 L 13.3-17.7 G/DL Hematocrit 37 L 40-54 % Mean Corpuscular Volume 89 80-99 FL Mean Corpuscular Hemoglobin 30 25-34 PG Mean Corpuscular Hemoglobin Concent 34 32-36 G/DL Red Cell Distribution Width 13.7 10.0-14.5 % Platelet Count 178 130-400 10^3/uL Mean Platelet Volume 10.4 7.4-10.4 FL Neutrophils (%) (Auto) 92 H 42-75 % Lymphocytes (%) (Auto) 4 L 12-44 % Monocytes (%) (Auto) 4 0-12 % Eosinophils (%) (Auto) 0 0-10 % Basophils (%) (Auto) 0 0-10 % Neutrophils # (Auto) 15.8 H 1.8-7.8 X 10^3 Lymphocytes # (Auto) 0.7 L 1.0-4.0 X 10^3 Monocytes # (Auto) 0.7 0.0-1.0 X 10^3 Eosinophils # (Auto) 0.0 0.0-0.3 10^3/uL Basophils # (Auto) 0.0 0.0-0.1 10^3/uL Neutrophils % (Manual) 83 % Lymphocytes % (Manual) 4 % Monocytes % (Manual) 3 % Eosinophils % (Manual) 0 % Basophils % (Manual) 0 % Band Neutrophils 7 % Reactive Lymphocytes 3 % Polychromasia SLIGHT Anisocytosis SLIGHT Macrocytosis SLIGHT Prothrombin Time 14.4 12.2-14.7 SEC INR Comment 1.1 0.8-1.4 Activated Partial Thromboplast Time 27 24-35 SEC Sodium Level 131 L 135-145 MMOL/L Potassium Level 4.8 3.6-5.0 MMOL/L Chloride Level 90 L 98-107 MMOL/L Carbon Dioxide Level 23 21-32 MMOL/L Anion Gap 18 H 5-14 MMOL/L Blood Urea Nitrogen 35 H 7-18 MG/DL Creatinine 2.15 H 0.60-1.30 MG/DL Estimat Glomerular Filtration Rate 29 BUN/Creatinine Ratio 16 Glucose Level 485 *H 70-105 MG/DL Lactic Acid Level 4.22 *H 0.50-2.00 MMOL/L Calcium Level 8.8 8.5-10.1 MG/DL Corrected Calcium 8.9 8.5-10.1 MG/DL Total Bilirubin 0.6 0.1-1.0 MG/DL Aspartate Amino Transf (AST/SGOT) 22 5-34 U/L Alanine Aminotransferase (ALT/SGPT) 29 0-55 U/L Alkaline Phosphatase 69 40-136 U/L C-Reactive Protein High Sensitivity 12.76 H 0.00-0.50 MG/DL Total Protein 6.8 6.4-8.2 GM/DL Albumin 3.9 3.2-4.5 GM/DL Lipase 92 H 8-78 U/L Procalcitonin 14.18 H <0.10 NG/ML Gastric Fluid Occult Blood POSITIVE H NEGATIVE Glucometer 408 *H 70-110 MG/DL (HAZEL TAYLOR APRN) My Orders Orders - HAZEL TAYLOR APRN Chest 1 View, Ap/Pa Only (03/30/20 22:01) (HAZEL TAYLOR APRN) Medications Given in ED Current Medications Medications Dose Ordered Sig/Abbie Route Start Time Stop Time Status Last Admin Dose Admin Famotidine 20 mg ONCE ONCE IVP 03/30/20 19:45 03/30/20 19:46 DC 03/30/20 19:47 20 MG Fentanyl Citrate 50 mcg ONCE ONCE IVP 03/30/20 19:45 03/30/20 19:46 DC 03/30/20 19:47 50 MCG Fentanyl Citrate 50 mcg ONCE ONCE IVP 03/30/20 21:00 03/30/20 21:01 DC 03/30/20 21:08 50 MCG Insulin Human Regular 5 unit ONCE ONCE IV 03/30/20 21:00 03/30/20 21:01 DC 03/30/20 21:08 5 UNIT Ondansetron HCl 8 mg ONCE ONCE IVP 03/30/20 19:45 03/30/20 19:46 DC 03/30/20 19:47 8 MG Piperacillin Sod/ Tazobactam Sod 4.5 gm/Sodium Chloride 100 ml @ 200 mls/hr ONCE ONCE IV 03/30/20 20:00 03/30/20 20:29 DC 03/30/20 21:17 200 MLS/HR (HAZEL TAYLOR APRN) Vital Signs/I&O 03/30/20 03/30/20 19:32 20:00 Temp 37.1 Pulse 70 Resp 18 B/P (MAP) 114/64 (81) O2 Delivery Room Air Nasal Cannula O2 Flow Rate 2.00 (HAZEL TAYLOR APRN) Vital Signs/I&O Capillary Refill : Less Than 3 Seconds (DARLEEN FIELDS MD) Blood Pressure Mean: 81 Progress Note #1: Time: 20:47 Progress Note Patient had recurrent nausea and vomiting after arrival. He was given Zofran 8 mg and Pepcid 20 mg IV. A liter of IV fluid was infused. Zosyn was administered for empiric about therapy. Labs have been reviewed. He has significant lactic acidosis and acute kidney injury. A second liter of IV fluid is being infused. We are checking another blood sugar. Per conversation with nursing staff, patient wishes to have a full CODE STATUS. CT of the abdomen and pelvis without contrast is pending. Progress Note #2: Time: 21:38 Progress Note Patient was found to have right-sided colitis with air in the biliary venous system. Dr. Mari was contacted and would like to treat conservatively at this time and avoid surgery if possible due to patient's comorbidities. Patient is now receiving his third liter of fluids and his blood pressures are borderline. He meets criteria for severe sepsis given his lactic acid, renal failure, leukocytosis, etc. He has been started on Zosyn and will continue on Zosyn. Dr. Mari would like a heparin drip started due to his history of ischemic colitis. Gastric Hemoccult was positive and Dr. Mari is aware. NG tube will be placed for decompression. Plan is to admit to ICU with conservative therapy with fluids and antibiotics for the time being. A medicine consult will be sought. Dr. Henderson was also notified and will try to check on the patient tomorrow when he returns to [facility]. I explained the serious nature of his situation. Patient would still like to be a full code but asked that the [facility] sicians use her discretion on extent of resuscitation efforts. I discussed the situation with patient's also. Progress Note #3: Time: 22:05 Progress Note Central line has been placed. Checkout has been performed with the eICU. We are checking another fingerstick blood sugar. So far he has not required vasopressor therapy. Progress Note #4: Time: 22:48 Progress Note Patient has become hypotensive despite aggressive fluid resuscitation. Norepinephrine drip was initiated. Progress Note #5: Progress Note Blood pressure normalized on norepinephrine drip. (DARLEEN FIELDS MD) Diagnostic Imaging Diagonstic Imaging: Xray Plain Films/CT/US/NM/MRI: chest Comments Chest x-ray viewed by me and report reviewed. See report below: NAME: JOSE ADKINS [facility] REC#: [id number] PT STATUS: REG ER : 1935 PHYSICIAN: DARLEEN FIELDS MD ADMIT DATE: 03/30/20/ER Draft Date of Exam:03/30/20 CHEST 1 VIEW, AP/PA ONLY HISTORY: Right-sided chest pain. COMPARISON: 02/27/2020. TECHNIQUE: Frontal view of the chest. FINDINGS: Lung volumes are normal. There may be mild left basilar airspace opacities. Overall aeration appears mildly improved compared to the prior study. No significant pleural effusion or pneumothorax is seen. The cardiac silhouette is stable in size. Pacemaker leads appear stable. 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 IMPRESSION: Persistent left basilar airspace opacities, with overall mildly improved aeration compared to the prior exam. Dictated on workstation # [id number] Dict: 03/30/202027 Trans: 03/30/202031 [facility] [id number] Interpreted by: ELPIDIO DANIELS MD Diagonstic Imaging: Xray Plain Films/CT/US/NM/MRI: chest Comments X-ray obtained after central line placement reveals central line in the superior vena cava with no pneumothorax. Report pending. (DARLEEN FIELDS MD) Departure Communication (Admissions) Time/Spoke to Admitting Phy: 21:06 Dr. Mari Time/Spoke to Consulting Phy: 21:50 Dr. Ballesteros (DARLEEN FIELDS MD) Impression Primary Impression: Septic shock Additional Impressions: Colitis Acute kidney failure Qualified Codes: N17.9 - Acute kidney failure, unspecified Hyperglycemia Nausea and vomiting Qualified Codes: R11.2 - Nausea with vomiting, unspecified Disposition: ADMITTED INPATIENT Condition: Stable Admissions Decision to Admit Reason: Admit from ER (General) Decision to Admit/Date: March 30, 2020 Time/Decision to Admit Time: 19:45 (DARLEEN FIELDS MD) Departure-Patient Inst. Referrals: NO,LOCAL PHYSICIAN (PCP/Family) Primary Care Physician DARLEEN FIELDS MD March 30, 2020 20:45 HAZEL TAYLOR APRN March 30, 2020 22:03
[2020-03-30] MEDS ORDERED: inSUlin (REGULAR) HUMAN 1 UNIT/0.01 ML (CHARGE PER UNIT) IV ONE (21:00)
--- NOTE | 2020-03-30 21:09 | Diagnostic Imaging Report ---
PROCEDURE: CT abdomen and pelvis without contrast. TECHNIQUE: Multiple contiguous axial images were obtained through the abdomen and pelvis without the use of intravenous contrast. Auto Exposure Controls were utilized during the CT exam to meet ALARA standards for radiation dose reduction. INDICATION: Right-sided abdominal pain. COMPARISON: 05/07/2019. FINDINGS: The lung bases demonstrate dependent atelectasis. The heart is mildly large. There is no pericardial effusion. Air is seen in the liver, appears to represent portal venous gas. The spleen appears normal. The pancreas is normal. The adrenal glands appear normal. The kidneys are unremarkable. The small bowel loops are nondistended. There is wall thickening of the terminal ileum. Cecum is distended and stool-filled. There is wall thickening and edema about the ascending colon. No free fluid is seen. No significant free air is seen. There is extensive atherosclerosis of the aorta. Degenerative changes are seen in the spine. IMPRESSION: 1. Wall thickening and edema consistent with ascending colitis and terminal ileitis, with marked stool in the cecum. No free air is seen. 2. Portal venous gas in the liver, may be due to pneumatosis in the right colon. Dictated by: Dictated on workstation # [id number]
[2020-03-30] MEDS ORDERED: HEParin DRIP 25000 UNIT/500ML 500 ML IV ONE (21:28)
[2020-03-30] MEDS ORDERED: HEParin 1000 UNIT/ML (10ML VIAL) FOR BOLUS IV ONE (21:30)
[2020-03-30] MEDS ORDERED: morphine INJ 10 MG/ML 1ML (SYR OR VIAL) IVP STA (21:48)
[2020-03-30] MEDS ORDERED: PROMETHAZINE INJ 25 MG/ML (PHENERGAN) AMP ONE (22:11)
[2020-03-30] MEDS: NOREPINEPHRINE 4 MG/250 ML 250 ML IV SCH (22:30)
[2020-03-30 23:16] VITALS: BP 125/68
[2020-03-30] MEDS ORDERED: morphine INJ 4 MG/ML 1 ML (VIAL/SYRINGE) ONE (23:39)
[2020-03-30] MEDS: morphine INJ 4 MG/ML 1 ML (VIAL/SYRINGE) IV PRN (23:40)
[2020-03-30 23:45] VITALS: BP 120/48
--- NOTE | 2020-03-30 23:47 | HISTORY AND PHYSICAL ---
DATE OF SERVICE: HISTORY OF PRESENT ILLNESS: The patient is an 84-year-old male, who presented to the Emergency Department with abdominal pain. He states that the pain started several days ago and was associated with intermittent episodes of diarrhea and constipation. He states that the pain has slightly worsened over time and he also developed nausea and vomiting. He does have a significant history of vascular disease including coronary artery disease as well as peripheral vascular disease. He also underwent what sounds to be a right hemicolectomy for ischemic colitis in 01/2019. CT scan was reviewed, which did show terminal ileitis as well as colitis of what would be the transverse colon. There is also mild pneumatosis. There is no free fluid as well as no free air. CT scan also detected significant calcifications throughout his abdominal aorta as well as the splenic and superior mesenteric artery. He was also recently hospitalized for pneumonia and renal failure. He also has not been drinking adequate fluids due to the abdominal pain for the past few days and is dehydrated. PAST MEDICAL HISTORY: Coronary artery disease, peripheral vascular disease, diabetes, hypercholesterolemia, hypertension, peripheral neuropathy, renal failure, depression. PAST SURGICAL HISTORY: Right hemicolectomy with anastomosis in 01/2019, coronary artery bypass grafting, right lower extremity bypass, right below the knee amputation, pacemaker implantation, orthopedic procedure. ALLERGIES: No known drug allergies. MEDICATIONS: Aspirin 81 mg daily, atenolol 25 mg daily, cefdinir 300 mg b.i.d., finasteride 5 mg daily, Lasix 40 mg daily, gabapentin 300 mg t.i.d., glipizide 10 mg daily, hydrocodone p.r.n., lorazepam p.r.n., metformin 1000 mg b.i.d., sertraline 50 mg daily, tamsulosin 0.4 mg daily. SOCIAL HISTORY: Cigar smoke. Occasional alcohol. FAMILY HISTORY: Brother, leukemia. Father, testicular cancer. VITAL SIGNS: Temperature 37.1, blood pressure 114/64, pulse 70, respirations 18. REVIEW OF SYSTEMS: This is a well-nourished obese male, currently guarded secondary to the abdominal pain. He does not report any shortness of breath or difficulty breathing as well as no cough or sputum production. Intermittent episodes of nausea as well as a few episodes of vomiting. No hematemesis, no coffee ground emesis. Intermittent episodes of diarrhea and constipation. No visualized red blood per rectum nor any dark tarry stools. No fever, chills, no recent inadvertent weight loss. All other review of systems negative. PHYSICAL EXAMINATION: CHEST: Scattered rhonchi bilaterally. HEART: Regular, no murmurs. EXTREMITIES: Right below the knee amputation, +1/3 left lower extremity edema, negative Homans sign. HEENT: No scleral icterus. NECK: No cervical lymphadenopathy. ABDOMEN: Slightly distended, soft. There is diffuse pain; however, more localized in the right lateral abdomen. There is voluntary guarding, no rebound. SKIN: Warm, dry. LABORATORY DATA: WBC 17.2, hemoglobin 12.4, hematocrit 37, platelets 178, BUN 35, creatinine 2.15, glucose 485. ASSESSMENT AND PLAN: An 84-year-old male with ischemic colitis. This appears to be more due to chronic arterial insufficiency and low flow states from his recent hospitalization, renal failure as well as dehydration. He has a number of medical comorbidities as well and is a high risk for surgery. At this time, we will proceed with conservative measures and proceed with NG tube decompression, bowel rest as well as broad spectrum antibiotics with piperacillin-tazobactam as well as vancomycin. We will also start a heparin drip per weight nomogram and we will also proceed with close monitoring and physical examinations for any changes. If his clinical status worsens, he may need to proceed with exploratory laparotomy and most likely a completion subtotal colectomy and end-ileostomy. Job ID: [id number] DocumentID: [id number] Dictated Date: 03/30/2020 22:05:20 Car Dealer Date: 03/30/2020 23:46:23 Dictated By: RICKEY SYED MD
[2020-03-31] VITALS (29 sets, daily range): BP systolic 90–136; BP diastolic 36–70
[2020-03-31] MEDS ORDERED: ONDANSETRON 4 MG/2 ML (SDV) Z0FRAN ONE (00:05)
[2020-03-31] MEDS: ONDANSETRON 4 MG/2 ML (SDV) Z0FRAN IV PRN (00:05)
[2020-03-31 00:10] LABS: BILIRUBIN,URINE NEGATIVE (NEGATIVE); CLARITY,URINE CLEAR; COLOR,URINE YELLOW; GLUCOSE, URINE (UA) 2+ (NEGATIVE); KETONES,URINE NEGATIVE (NEGATIVE); LEUKOCYTE ESTERASE ,URINE NEGATIVE (NEGATIVE); NITRITE,URINE NEGATIVE (NEGATIVE); PH,URINE 5.5 (5-9); PROTEIN,URINE 1+ (NEGATIVE)
[2020-03-31 00:19] LABS: AMORPHOUS SEDIMENT,UR LARGE AMOR URATES /LPF; BACTERIA,URINE FEW /HPF; SQUAMOUS EPITHELIAL CELL,UR 0-2 /HPF
[2020-03-31] MEDS: inSUlin ASPART (NovoLOG) 1 UNIT/0.01 ML (CHARGE PER UNIT) SC SCH ×7 (00:49→23:35)
[2020-03-31] MEDS: NS IV 1000 ML 1,000 ML IV SCH ×5 (00:50→22:58)
[2020-03-31] MEDS ORDERED: EPINEPHrine 1 MG INJECTION 2 MG in NS (IVPB) 250 ML IV SCH (01:00)
[2020-03-31] MEDS: NOREPINEPHRINE 4 MG/250 ML 250 ML IV SCH ×5 (01:20→22:16)
[2020-03-31] MEDS: VASOPRESSIN INJECTION 20 UNIT in NORMAL SALINE 100 ML IV SCH ×3 (01:20→18:32)
[2020-03-31] MEDS ORDERED: VANCOMYCIN 1000 MG/VIAL ONE (01:22)
[2020-03-31] MEDS ORDERED: NS IV 500 ML 500 ML ONE (01:23)
[2020-03-31] MEDS ORDERED: VANCOMYCIN 2000 MG/NS 500 ML IVPB IV SCH ×2 (01:30)
[2020-03-31] MEDS ORDERED: PIPERACILLIN/TAZO 4.5 GM VIAL (ZOSYN) IV ONE (01:49)
[2020-03-31] MEDS ORDERED: NS (IVPB) 0 ML ONE (01:49)
[2020-03-31] MEDS: PIPERACILLIN/TAZOBACTAM (BULK) 4.5 GM in NS (IVPB) 100 ML IV SCH ×3 (02:27→18:55)
[2020-03-31 02:40] LABS: BASOPHILS % (AUTO) 0 % (0-10); EOSINOPHILS % (AUTO) 0 % (0-10); HEMATOCRIT 33 % (40-54); HEMOGLOBIN 10.9 G/DL (13.3-17.7); LYMPHOCYTES # (AUTO) 0.9 X 10^3 (1.0-4.0); LYMPHOCYTES % (AUTO) 5 % (12-44); MEAN CORPUSCULAR HEMOGLOBIN 30 PG (25-34); MEAN CORPUSCULAR HGB CONC 33 G/DL (32-36); MEAN CORPUSCULAR VOLUME 90 FL (80-99); MEAN PLATELET VOLUME 10.3 FL (7.4-10.4); MONOCYTES % (AUTO) 6 % (0-12); NEUTROPHILS # (AUTO) 15.9 X 10^3 (1.8-7.8); NEUTROPHILS % (AUTO) 89 % (42-75); PLATELET COUNT 180 10^3/uL (130-400); RED CELL DISTRIBUTION WIDTH 13.9 % (10.0-14.5); WHITE BLOOD COUNT 17.9 10^3/uL (4.3-11.0)
[2020-03-31 02:49] LABS: ALBUMIN 3.3 GM/DL (3.2-4.5); POTASSIUM 4.1 MMOL/L (3.6-5.0)
[2020-03-31 02:51] LABS: CALCIUM 7.7 MG/DL (8.5-10.1)
[2020-03-31 02:52] LABS: TOTAL PROTEIN 5.7 GM/DL (6.4-8.2)
[2020-03-31 02:53] LABS: INR 1.3 (0.8-1.4); PROTHROMBIN TIME PATIENT 16.9 SEC (12.2-14.7)
[2020-03-31 02:54] LABS: BILIRUBIN,TOTAL 0.7 MG/DL (0.1-1.0)
[2020-03-31 02:55] LABS: PHOSPHORUS 3.4 MG/DL (2.3-4.7)
[2020-03-31 02:56] LABS: CREATININE SERUM 1.86 MG/DL (0.60-1.30)
[2020-03-31 02:58] LABS: MAGNESIUM 1.7 MG/DL (1.6-2.4)
[2020-03-31] MEDS: morphine INJ 4 MG/ML 1 ML (VIAL/SYRINGE) IV PRN ×4 (04:05→22:57)
--- NOTE | 2020-03-31 06:12 | Pulmonary Consultation ---
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 Henderson presented to ED secondary to severe abdominal pain and found to have sepsis. I am consulted for ICU mangement. Allergies and Home Medications Allergies Coded Allergies: No Known Drug Allergies (Verified , 10/15/09) Home Medications Ascorbic Acid 500 Mg Capsule, 500 MG PO DAILY, (Reported) Aspirin 325 Mg Tablet.dr, 325 MG PO DAILY, (Reported) Atenolol 25 Mg Tablet, 25 MG PO HS, (Reported) Calcium Carbonate 600 Mg Tablet, 600 MG PO DAILY, (Reported) Finasteride 5 Mg Tablet, 5 MG PO D, (Reported) Fluoxetine HCl 20 Mg Capsule, 20 MG PO HS, (Reported) Furosemide 20 Mg Tablet, 20 MG PO DAILY, (Reported) Gabapentin 300 Mg Capsule, 300 MG PO BID, (Reported) Glipizide 10 Mg Tablet, 10 MG PO HS, (Reported) Hydrocodone/Acetaminophen 1 Each Tablet, 1 EA PO BID PRN for PAIN-MODERATE (5- 7), (Reported) Metformin HCl 1,000 Mg Tablet, 1,000 MG PO BID, (Reported) Multivit-Min/FA/Lycopene/Lut 1 Each Tablet, 1 TAB PO DAILY, (Reported) Peg 400/Hypromellose/Glycerin 15 Ml Drops, 2 DROPS OU PRN PRN for DRY EYES, (Reported) Sertraline HCl 50 Mg Tablet, 50 MG PO HS, (Reported) Tamsulosin HCl 0.4 Mg Cap, 0.4 MG PO HS, (Reported) Past Dtonhbe-Wspnlx-Pdumaq Hx Past Med/Social Hx: Reviewed and Corrections made Patient Social History Alcohol Use: Occasionally Uses Recreational Drug Use: No Type Used: Cigars 2nd Hand Smoke Exposure: Yes Recent Foreign Travel: No Contact w/Someone Who Travel: No Recent Infectious Disease Expo: No Recent Hopitalizations: Yes Physical Abuse: No Sexual Abuse: No Mistreated: No Fear: No Immunizations Up To Date Tetanus Booster (TDap): Unknown Date of Pneumonia Vaccine: Sep 29, 2012 Seasonal Allergies Seasonal Allergies: No Past Medical History Surgeries: Yes (CABG; RIGHT BKA; RIGHT LEG ARTERY BYPASS; PACEMAKER X 2) Amputation, Cardiac, CABG, Eye Surgery, Orthopedic, Pacemaker, Vascular Surgery Respiratory: Yes Pneumonia Currently Using CPAP: No Currently Using BIPAP: No Cardiac: Yes (CABG; PACEMAKER) Coronary Artery Disease, High Cholesterol, Hypertension, Peripheral Vascular Neurological: Yes Headaches /Migraines, Neuropathy Reproductive Disorders: No Genitourinary: Yes Prostate Problems, Renal Failure Gastrointestinal: Yes (iscemic bowel) Chronic Constipation 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, Non-Insulin dep HEENT: Yes Cataract Loss of Vision: Denies Hearing Impairment: Hard of Hearing Cancer: No Psychosocial: Yes Depression Integumentary: No Blood Disorders: No Adverse Reaction/Blood Tranf: No Family Medical History Diabetes mellitus GRANDMOTHER FH: leukemia G8 BROTHER Testicular cancer 19 FATHER Review of Systems Time Seen by Provider: 09:03 Constitutional: Fever, Chills, Sweats, Weakness, Malaise, Other Eyes: No: Pain, Vision change, Conjunctivae inflammation, Eyelid inflammation, Other, Redness ENT: Nose congestion; No: Ear pain, Ear discharge, Nose pain, Nose discharge, Mouth pain, Mouth swelling, Throat pain, Throat swelling, Other Respiratory: Cough, Dry, Shortness of breath, SOB with excertion; No: Wheezing, Hemoptysis Cardiovascular: Palpitations, Paroxysmal Noc. Dyspnea, Lt Headedness; No: Chest Pain, Orthopnea, Edema, Other Gastrointestinal: Nausea, Abdominal Pain, Diarrhea, Constipation; No: Vomiting Sepsis Event Evaluation Height, Weight, BMI Height: 5'9.00" Weight: 226lbs. 9.6oz. 102.185575ir; 31.78 BMI Method:Stated Exam Exam Vital Signs Date Time Temp Pulse Resp B/P (MAP) Pulse Ox O2 Delivery O2 Flow Rate FiO2 03/31/20 04:08 36.4 03/31/20 03:59 95 Nasal Cannula 2.00 03/31/20 03:00 70 20 96/36 (56) 96 Nasal Cannula 2.00 03/31/20 02:30 70 21 136/54 (81) 96 Nasal Cannula 2.00 03/31/20 02:00 70 20 112/44 (66) 96 Nasal Cannula 2.00 03/31/20 02:00 36.8 03/31/20 01:30 70 21 110/45 (66) 96 Nasal Cannula 2.00 5/3/20 01:00 70 03/31/20 01:00 70 22 110/44 (66) 98 Nasal Cannula 2.00 03/31/20 00:45 70 23 126/40 (68) 99 Nasal Cannula 2.00 03/31/20 00:30 70 21 109/70 (83) 98 Nasal Cannula 2.00 03/31/20 00:15 70 17 124/46 (72) 98 Nasal Cannula 2.00 03/31/20 00:00 95 Nasal Cannula 2.00 03/31/20 00:00 70 24 118/44 (68) 96 Nasal Cannula 2.00 03/30/20 23:49 70 03/30/20 23:45 37.8 120/48 (72) 94 Nasal Cannula 2.00 03/30/20 23:30 70 24 125/68 96 2.00 03/30/20 23:16 37.7 70 24 125/68 (87) 97 2.00 03/30/20 22:30 70 77/42 03/30/20 20:00 Nasal Cannula 2.00 03/30/20 19:32 37.1 70 18 114/64 (81) Room Air I & O 03/31/20 07:00 Intake Total 3620 ml Output Total 725 ml Balance 2895 ml Height & Weight Height: 5'9.00" Weight: 226lbs. 9.6oz. 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
[2020-03-31] MEDS: MAGNESIUM 1 GM/100 ML IVPB 100 ML IV SCH ×2 (06:18→07:47)
--- NOTE | 2020-03-31 07:25 | Diagnostic Imaging Report ---
Indication: Dyspnea with central line placement. Comparison: 03/30/2020. Discussion: Single portable upright view of the chest was obtained. New right IJ central venous catheter with tip in the SVC. Median sternotomy and left-sided pacemaker are stable. Cardiomegaly is stable. Small bilateral pleural effusions are noted. No pneumothorax. Impression: 1. New right IJ central venous catheter with tip in the SVC. No pneumothorax. 2. Stable cardiomegaly with small effusions. Dictated by: Dictated on workstation # [id number]
--- NOTE | 2020-03-31 08:13 | NUR ---
PTD Vanco - Patient received 2gm bolus dose per e-pharmacy. Patients CrCl calculated using actual bodywt, crcl = 39ml/min. Maintenance dose Vancomycin at 500mg every 12 hours. Will obtain trough on 04/01 prior to 4th dose.
--- NOTE | 2020-03-31 08:27 | Diagnostic Imaging Report ---
Indication: Enteric tube placement. Comparison: 03/30/2020. Discussion: Single portable upright view of the chest was obtained. Cardiomegaly is again noted. Median sternotomy and left-sided pacemaker are stable. Right IJ central venous catheter is stable. The enteric tube is very difficult to visualize given the technique. It is likely folded upon itself within the distal esophagus. Recommend repositioning. Small effusions are stable. Impression: 1. Enteric tube is very difficult to visualize given technique. The tube is likely folded upon itself within the distal esophagus. 2. Cardiomegaly with small effusions, stable. Dictated by: Dictated on workstation # [id number]
[2020-03-31] MEDS: PANTOPRAZOLE 40 MG (PROTONIX) VIAL IV SCH ×2 (09:50→21:21)
--- NOTE | 2020-03-31 11:27 | Consultation - Hospitalist ---
HPI History of Present Illness: HPI/Chief Complaint Chief complaint: Abdominal pain with severe sepsis ICU admission consulted for medical management History of present illness: This is an 84-year-old white male with a history of multiple vascular procedures and vascular conditions who presents to the emergency room with abdominal pain found to have severe sepsis requiring ICU admission. 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 Patient was placed on heparin full dose drip in addition broad-spectrum antibiotics initiated for coverage of bacterial colitis. Currently patient is doing a little better he reports the pain comes and goes and he is in guarded prognosis at this current time. NG tube is in place. Check meds and labs. Conferred with RN. Source: patient, RN/MD, old records Exam Limitations: clinical condition Date Seen 03/31/20 Attending Physician Santa Mari MD PCP No,Local Physician Referring Physician Date of Admission March 30, 2020 at 21:06 Home Medications & Allergies Home Medications Reviewed patient Home Medication Reconciliation performed by pharmacy medication reconciliations resident care technician and/or nursing. Patients Allergies have been reviewed. Allergies Allergies Coded Allergies No Known Drug Allergies (Hhujaxnw07/17/09) Past Pcrsvqk-Vuobdb-Elzzgu Hx Past Med/Social Hx: Reviewed Nursing Past Med/Soc Hx, Reviewed and Corrections made Patient Social History Marrital Status: single Employed/Student: retired Alcohol Use: Occasionally Uses Recreational Drug Use: No Smoking Status: Former Smoker Type Used: Cigars 2nd Hand Smoke Exposure: Yes Recent Foreign Travel: No Contact w/other who traveled: No Recent Hopitalizations: Yes Recent Infectious Disease Expo: No Immunizations Up To Date Tetanus Booster (TDap): Unknown Date of Pneumonia Vaccine: Sep 29, 2012 Seasonal Allergies Seasonal Allergies: No Past Medical History Surgeries: Amputation, Cardiac, CABG, Eye Surgery, Orthopedic, Pacemaker, Vascular Surgery Respiratory: COPD, Sleep Apnea Currently Using CPAP: No Currently Using BIPAP: No Cardiac: Coronary Artery Disease, High Cholesterol, Hypertension, Peripheral Vascular Neurological: Headaches /Migraines, Neuropathy Reproductive: No Genitourinary: Prostate Problems, Renal Failure Gastrointestinal: Chronic Constipation Musculoskeletal: Amputee Endocrine: Diabetes, Non-Insulin dep HEENT: Cataract Loss of Vision: Denies Hearing Impairment: Hard of Hearing Psychosocial: Depression History of Blood Disorders: No Adverse Reaction to Blood Pimentel: No Family History Diabetes mellitus GRANDMOTHER FH: leukemia G8 BROTHER Testicular cancer 19 FATHER Review of Systems Constitutional: see HPI Gastrointestinal: abdominal pain, nausea, vomiting Physical Exam Physical Exam Vital Signs Vital Signs - First Documented 03/30/20 03/30/20 03/30/20 19:32 20:00 23:16 Temp 37.1 Pulse 70 Resp 18 B/P (MAP) 114/64 (81) Pulse Ox 97 O2 Delivery Room Air O2 Flow Rate 2.00 Capillary Refill : Less Than 3 Seconds Height, Weight, BMI Height: 5'9.00" Weight: 226lbs. 9.6oz. 102.370140ri; 31.78 BMI Method:Stated General Appearance: WD/WN, Mild Distress HEENT: PERRL/EOMI, Normal ENT Inspection, Other (oropharynx dry) Neck: Normal Inspection Respiratory: Lungs Clear, Normal Breath Sounds, No Accessory Muscle Use Cardiovascular: Regular Rate, Rhythm, No Edema, No Murmur, Normal Peripheral Pulses Gastrointestinal: Normal Bowel Sounds, Soft, Distended (mild), Tenderness (exquisitely tender throughout the right abdomen) Extremity: Normal Inspection, No Pedal Edema, Other (right BKA) Neurologic/Psychiatric: Alert, Oriented x3, No Motor/Sensory Deficits, Normal Mood/Affect, 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 Assessment/Plan Assessment and Plan Assess & Plan/Chief Complaint Assessment: Severe sepsis requiring ICU status Ischemic colitis Advanced age Leukocytosis ARF Plan: ICU Abx Heparin Diagnosis/Problems Diagnosis/Problems (1) Sepsis Status: Resolved (2) Renal insufficiency Status: Resolved (3) Nausea and vomiting Status: Resolved (4) Ischemic bowel disease Status: Acute (5) Acute renal failure Status: Acute (6) Hypoxia Status: Acute Clinical Quality Measures DVT/VTE Risk/Contraindication: Risk Factor Score Per Nursin RFS Level Per Nursing on Admit: 4+=Very High AGATHA PAZ DO March 31, 2020 11:26
[2020-03-31] MEDS ORDERED: VANCOMYCIN IV SCH (13:00)
[2020-03-31] MEDS ORDERED: NORMAL SALINE IV SCH (13:00)
[2020-03-31] MEDS ORDERED: TICAGRELOR 90 MG TABLET (BRILINTA) PO ONE (14:45)
[2020-03-31] MEDS: VANCOMYCIN 500 MG/NS 100 ML IVPB IV SCH ×2 (15:38)
[2020-03-31] MEDS: PROMETHAZINE INJ 25 MG/ML (PHENERGAN) AMP IV PRN (19:07)
[2020-03-31] MEDS: HEParin DRIP 25000 UNIT/500ML 500 ML IV SCH (21:35)
[2020-04-01] VITALS (24 sets, daily range): BP systolic 95–131; BP diastolic 42–70
[2020-04-01] MEDS: VASOPRESSIN INJECTION 20 UNIT in NORMAL SALINE 100 ML IV SCH ×3 (01:57→18:51)
[2020-04-01] MEDS: PIPERACILLIN/TAZOBACTAM (BULK) 4.5 GM in NS (IVPB) 100 ML IV SCH ×3 (01:57→17:57)
[2020-04-01] MEDS: VANCOMYCIN 500 MG/NS 100 ML IVPB IV SCH ×2 (01:57)
[2020-04-01] MEDS: morphine INJ 4 MG/ML 1 ML (VIAL/SYRINGE) IV PRN ×5 (01:58→23:39)
[2020-04-01 03:14] LABS: BASOPHILS % (AUTO) 0 % (0-10); EOSINOPHILS # (AUTO) 0.1 10^3/uL (0.0-0.3); EOSINOPHILS % (AUTO) 1 % (0-10); HEMATOCRIT 31 % (40-54); HEMOGLOBIN 10.1 G/DL (13.3-17.7); LYMPHOCYTES # (AUTO) 0.7 X 10^3 (1.0-4.0); LYMPHOCYTES % (AUTO) 8 % (12-44); MEAN CORPUSCULAR HEMOGLOBIN 30 PG (25-34); MEAN CORPUSCULAR HGB CONC 33 G/DL (32-36); MEAN CORPUSCULAR VOLUME 92 FL (80-99); MONOCYTES # (AUTO) 0.4 X 10^3 (0.0-1.0); MONOCYTES % (AUTO) 5 % (0-12); NEUTROPHILS # (AUTO) 7.3 X 10^3 (1.8-7.8); NEUTROPHILS % (AUTO) 86 % (42-75); PLATELET COUNT 128 10^3/uL (130-400); RED CELL DISTRIBUTION WIDTH 14.2 % (10.0-14.5); WHITE BLOOD COUNT 8.5 10^3/uL (4.3-11.0)
[2020-04-01 03:34] LABS: ALBUMIN 2.7 GM/DL (3.2-4.5); BILIRUBIN,TOTAL 0.6 MG/DL (0.1-1.0); CALCIUM 7.5 MG/DL (8.5-10.1); CREATININE SERUM 1.5 MG/DL (0.60-1.30); PHOSPHORUS 3.1 MG/DL (2.3-4.7); POTASSIUM 3.8 MMOL/L (3.6-5.0)
[2020-04-01] MEDS: PROMETHAZINE INJ 25 MG/ML (PHENERGAN) AMP IV PRN ×2 (03:37→17:06)
[2020-04-01] MEDS: HEParin 1000 UNIT/ML (10ML VIAL) FOR BOLUS IV SCH (04:07)
[2020-04-01] MEDS: NOREPINEPHRINE 4 MG/250 ML 250 ML IV SCH ×3 (04:12→19:30)
[2020-04-01] MEDS: inSUlin ASPART (NovoLOG) 1 UNIT/0.01 ML (CHARGE PER UNIT) SC SCH ×6 (04:12→23:35)
--- NOTE | 2020-04-01 04:27 | Pulmonary Progress Note ---
Subjective Time Seen by a Provider: 04:24 Subjective/Events-last exam Pt appears to be doing better. Sepsis Event Evaluation Height, Weight, BMI Height: 5'9.00" Weight: 226lbs. 9.6oz. 102.260248sn; 31.78 BMI Method:Stated Focused Exam Lactate Level 03/30/20 22:00: Lactic Acid Level 3.80*H 03/31/20 00:34: Lactic Acid Level 2.12*H 03/31/20 02:23: Lactic Acid Level 2.00 Time of Focused Exam: 21:55 Exam Exam Vital Signs Date Time Temp Pulse Resp B/P (MAP) Pulse Ox O2 Delivery O2 Flow Rate FiO2 04/01/20 04:11 36.8 04/01/20 04:00 97 Nasal Cannula 2.00 04/01/20 02:00 73 19 110/49 (69) 93 Nasal Cannula 2.00 04/01/20 01:00 70 18 105/45 (65) 95 Nasal Cannula 2.00 04/01/20 01:00 70 04/01/20 00:13 37.0 04/01/20 00:00 97 Nasal Cannula 2.00 04/01/20 00:00 70 20 100/50 (67) 95 Nasal Cannula 2.00 03/31/20 23:00 70 20 111/49 (69) 98 Nasal Cannula 2.00 03/31/20 22:00 70 23 107/44 (65) 96 Nasal Cannula 2.00 03/31/20 21:00 70 21 116/47 (70) 97 Nasal Cannula 2.00 03/31/20 20:00 73 20 111/41 (64) 95 Nasal Cannula 2.00 03/31/20 20:00 36.8 03/31/20 20:00 97 Nasal Cannula 2.00 03/31/20 19:00 71 26 101/57 (72) 95 Nasal Cannula 2.00 03/31/20 19:00 71 03/31/20 18:00 73 21 111/45 (67) 97 Nasal Cannula 2.00 03/31/20 17:00 72 22 100/48 (65) 96 Nasal Cannula 2.00 03/31/20 16:00 70 21 117/43 (67) 97 Nasal Cannula 2.00 03/31/20 16:00 95 Nasal Cannula 2.00 03/31/20 15:00 70 20 108/47 (67) 96 Nasal Cannula 2.00 03/31/20 14:00 70 18 111/50 (70) 96 Nasal Cannula 2.00 03/31/20 13:00 70 21 109/49 (69) 97 Nasal Cannula 2.00 03/31/20 12:24 70 03/31/20 12:00 36.7 03/31/20 12:00 70 19 108/42 (64) 94 Nasal Cannula 2.00 03/31/20 12:00 95 Nasal Cannula 2.00 03/31/20 11:00 70 18 95/45 (62) 95 Nasal Cannula 2.00 03/31/20 10:00 70 20 100/47 (64) 96 Nasal Cannula 2.00 03/31/20 09:00 70 20 99/38 (58) 96 Nasal Cannula 2.00 03/31/20 08:35 70 103/41 03/31/20 08:00 70 19 106/44 (64) 97 Nasal Cannula 2.00 03/31/20 08:00 36.8 03/31/20 07:51 97 Nasal Cannula 2.00 03/31/20 07:48 70 111/46 03/31/20 07:00 70 03/31/20 07:00 70 20 93/44 (60) 97 Nasal Cannula 2.00 03/31/20 06:00 72 19 90/39 (56) 97 Nasal Cannula 2.00 03/31/20 05:00 70 16 100/40 (60) 97 Nasal Cannula 2.00 I & O 04/01/20 07:00 Intake Total 2700 ml Output Total 900 ml Balance 1800 ml Height & Weight Height: 5'9.00" Weight: 226lbs. 9.6oz. 102.737435vv; 31.78 BMI Method:Stated General Appearance: WD/WN, Mild Distress HEENT: PERRL/EOMI, Normal ENT Inspection, Other (oropharynx dry) Neck: Normal Inspection Respiratory: Lungs Clear, Normal Breath Sounds, No Accessory Muscle Use Cardiovascular: Regular Rate, Rhythm, No Edema, No Murmur, Normal Peripheral Pulses Capillary Refill: Less Than 3 Seconds Peripheral Pulses: 2+ Radial Pulses (L) Extremity: Normal Inspection, No Pedal Edema, Other (right BKA) Neurologic/Psychiatric: Alert, Oriented x3, No Motor/Sensory Deficits, Normal Mood/Affect, high speed operator II-XII Norm as Tested Results Lab Laboratory Tests 03/30/20 19:32 03/31/20 02:23 04/01/20 03:05 Assessment/Plan Assessment/Plan Septic shock with colitis - with possible ischemic colitis -Surgery is following -Currently on Hep gtt -CT of abd reviewed -IVF -Vanco/zosyn hypotensive -- resolved -Levophed -- is off -IVF- 150cc/hr Acute renal failure-- improving To floor when ok with surgery. I will sign off once pt is transferred to 4th floor. BRETT HOPKINS DO April 01, 2020 04:27
[2020-04-01] MEDS: NS IV 1000 ML 1,000 ML IV SCH ×4 (06:06→21:25)
--- NOTE | 2020-04-01 07:40 | Diagnostic Imaging Report ---
INDICATION: Acute renal failure, hyperglycemia, septic shock and colitis. EXAMINATION: Chest 04/01/2020 COMPARISON: 03/31/2020 FINDINGS: Heart is enlarged. Pulmonary vasculature is stable. Bibasilar infiltrates left greater than right with a small left effusion noted. Tiny effusion on the right is also suspected. There are findings of mild edema throughout the lungs. Left-sided pacemaker stable. Sternotomy wires noted. Right jugular line tip stable. IMPRESSION: 1. Persistent infiltrates and pulmonary edema. Dictated by: Dictated on workstation # [id number]
[2020-04-01] MEDS: PANTOPRAZOLE 40 MG (PROTONIX) VIAL IV SCH ×2 (08:16→20:33)
--- NOTE | 2020-04-01 09:30 | Progress Note - Surgery ---
Subjective Date Seen by a Provider: April 01, 2020 Time Seen by a Provider: 08:30 Subjective/Events-last exam Patient still with abdominal pain. Minimally better. Passing flatus and bm. NPO. WBC down. Off pressors. On heparin drip. Denies n/v fever sweats chills shortness of breath or chest pain. Focused Exam Lactate Level 03/30/20 22:00: Lactic Acid Level 3.80*H 03/31/20 00:34: Lactic Acid Level 2.12*H 03/31/20 02:23: Lactic Acid Level 2.00 Time of Focused Exam: 21:55 Objective Exam Vital Signs Date Time Temp Pulse Resp B/P (MAP) Pulse Ox O2 Delivery O2 Flow Rate FiO2 04/01/20 09:00 70 18 107/56 (73) 90 Nasal Cannula 2.00 04/01/20 08:00 70 18 113/45 (67) 96 Nasal Cannula 2.00 04/01/20 07:26 36.8 04/01/20 07:26 36.8 04/01/20 07:00 70 20 118/44 (68) 93 Nasal Cannula 2.00 04/01/20 07:00 70 04/01/20 06:00 70 17 114/45 (68) 96 Nasal Cannula 2.00 04/01/20 05:00 70 17 115/42 (66) 92 Nasal Cannula 2.00 04/01/20 04:11 36.8 04/01/20 04:00 73 18 100/49 (66) 92 Nasal Cannula 2.00 04/01/20 04:00 97 Nasal Cannula 2.00 04/01/20 03:00 70 19 105/48 (67) 95 Nasal Cannula 2.00 04/01/20 02:00 73 19 110/49 (69) 93 Nasal Cannula 2.00 04/01/20 01:00 70 18 105/45 (65) 95 Nasal Cannula 2.00 04/01/20 01:00 70 04/01/20 00:13 37.0 04/01/20 00:00 97 Nasal Cannula 2.00 04/01/20 00:00 70 20 100/50 (67) 95 Nasal Cannula 2.00 03/31/20 23:00 70 20 111/49 (69) 98 Nasal Cannula 2.00 03/31/20 22:00 70 23 107/44 (65) 96 Nasal Cannula 2.00 03/31/20 21:00 70 21 116/47 (70) 97 Nasal Cannula 2.00 03/31/20 20:00 73 20 111/41 (64) 95 Nasal Cannula 2.00 03/31/20 20:00 36.8 03/31/20 20:00 97 Nasal Cannula 2.00 03/31/20 19:00 71 26 101/57 (72) 95 Nasal Cannula 2.00 03/31/20 19:00 71 03/31/20 18:00 73 21 111/45 (67) 97 Nasal Cannula 2.00 03/31/20 17:00 72 22 100/48 (65) 96 Nasal Cannula 2.00 03/31/20 16:00 70 21 117/43 (67) 97 Nasal Cannula 2.00 03/31/20 16:00 95 Nasal Cannula 2.00 03/31/20 15:00 70 20 108/47 (67) 96 Nasal Cannula 2.00 03/31/20 14:00 70 18 111/50 (70) 96 Nasal Cannula 2.00 03/31/20 13:00 70 21 109/49 (69) 97 Nasal Cannula 2.00 03/31/20 12:24 70 03/31/20 12:00 36.7 03/31/20 12:00 70 19 108/42 (64) 94 Nasal Cannula 2.00 03/31/20 12:00 95 Nasal Cannula 2.00 03/31/20 11:00 70 18 95/45 (62) 95 Nasal Cannula 2.00 03/31/20 10:00 70 20 100/47 (64) 96 Nasal Cannula 2.00 I & O 04/01/20 07:00 Intake Total 2820 ml Output Total 1125 ml Balance 1695 ml Capillary Refill : Less Than 3 Seconds General Appearance: No Apparent Distress (laying in bed), WD/WN HEENT: PERRL/EOMI, Normal ENT Inspection, Other (oropharynx dry) Neck: Normal Inspection Respiratory: Chest Non Tender, Normal Breath Sounds, No Accessory Muscle Use Cardiovascular: Regular Rate, Rhythm, No Edema, No Murmur, Normal Peripheral Pulses Peripheral Pulses: 2+ Radial Pulses (L) Gastrointestinal: soft, tenderness (diffusely) Extremity: Normal Inspection, No Pedal Edema, Other (right BKA) Neurologic/Psychiatric: Alert, Oriented x3, No Motor/Sensory Deficits, Normal Mood/Affect, location analyst II-XII Norm as Tested Skin: Normal Color, Warm/Dry Lymphatic: No Adenopathy Results Lab Laboratory Tests 03/31/20 09:50: Activated Partial Thromboplast Time 85H 03/31/20 11:23: Glucometer 181H 03/31/20 15:45: Activated Partial Thromboplast Time 73H 03/31/20 15:47: Glucometer 155H 03/31/20 19:27: Glucometer 148H 03/31/20 22:52: Glucometer 162H 04/01/20 03:05: White Blood Count 8.5, Red Blood Count 3.33L, Hemoglobin 10.1L, Hematocrit 31L, Mean Corpuscular Volume 92, Mean Corpuscular Hemoglobin 30, Mean Corpuscular Hemoglobin Concent 33, Red Cell Distribution Width 14.2, Platelet Count 128L, Mean Platelet Volume 10.0, Neutrophils (%) (Auto) 86H, Lymphocytes (%) (Auto) 8L , Monocytes (%) (Auto) 5, Eosinophils (%) (Auto) 1, Basophils (%) (Auto) 0, Ne utrophils # (Auto) 7.3, Lymphocytes # (Auto) 0.7L, Monocytes # (Auto) 0.4, Eosinophils # (Auto) 0.1, Basophils # (Auto) 0.0, Activated Partial Thromboplast Time 61H, Sodium Level 135, Potassium Level 3.8, Chloride Level 105, Carbon Dioxide Level 22, Anion Gap 8, Blood Urea Nitrogen 27H, Creatinine 1.50H, Estimat Glomerular Filtration Rate 44, BUN/Creatinine Ratio 18, Glucose Level 178H, Calcium Level 7.5L, Corrected Calcium 8.5, Phosphorus Level 3.1, Magnesium Level 2.0, Total Bilirubin 0.6, Aspartate Amino Transf (AST/SGOT) 22, Alanine Aminotransferase (ALT/SGPT) 17, Alkaline Phosphatase 48, Total Protein 5.0L, Albumin 2.7L 04/01/20 07:59: Glucometer 196H Microbiology 03/30/20 Blood Culture - Preliminary, Resulted No growth 03/30/20 MRSA Screen - Final, Complete MRSA not isolated Assessment/Plan Assessment/Plan Assessment/Plan abdominal pain, diffuse ischemic colitis sepsis wbc down and abdominal pain a little better. has history of ischemic bowel. will continue to monitor in icu at this time. if pain is still significant will discuss exploration with possible colectomy all other indicated procedures. Clinical Quality Measures DVT/VTE Risk/Contraindication: Risk Factor Score Per Nursin RFS Level Per Nursing on Admit: 4+=Very High NEHAL GREENBERG DO April 01, 2020 09:30
--- NOTE | 2020-04-01 10:36 | Progress Note - Hospitalist ---
Subjective HPI/CC On Admission Date Seen by Provider: April 01, 2020 Time Seen by Provider: 10:00 Chief complaint: Abdominal pain with severe sepsis ICU admission consulted for medical management History of present illness: This is an 84-year-old white male with a history of multiple vascular procedures and vascular conditions who presents to the emergency room with abdominal pain found to have severe sepsis requiring ICU admission. 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 Patient was placed on heparin full dose drip in addition broad-spectrum antibiotics initiated for coverage of bacterial colitis. Currently patient is doing a little better he reports the pain comes and goes and he is in guarded prognosis at this current time. NG tube is in place. Check meds and labs. Conferred with RN. Subjective/Events-last exam Pt will remain in ICU today per Dr. Henderson Heparin drip maintained Antibiotics maintained and tolerated Pt lives at home with his Abdominal pain continues but is better Pain medication helps Pt may ultimately require additional colon resection but Dr. Henderson will monitor that closely Review of Systems General: Fatigue Gastrointestinal: Nausea, Abdominal Pain Focused Exam Lactate Level 03/30/20 22:00: Lactic Acid Level 3.80*H 03/31/20 00:34: Lactic Acid Level 2.12*H 03/31/20 02:23: Lactic Acid Level 2.00 Time of Focused Exam: 21:55 Objective Exam Vital Signs Vital Signs Date Time Temp Pulse Resp B/P (MAP) Pulse Ox O2 Delivery O2 Flow Rate FiO2 04/01/20 21:00 73 15 124/49 (74) 99 Nasal Cannula 2.00 04/01/20 20:00 37.1 Capillary Refill : Less Than 3 Seconds General Appearance: No Apparent Distress, WD/WN, Chronically ill Respiratory: Chest Non Tender, Lungs Clear, Normal Breath Sounds, No Accessory Muscle Use, No Respiratory Distress Cardiovascular: Regular Rate, Rhythm, No Edema, No Gallop, No JVD, No Murmur, Normal Peripheral Pulses Neurologic/Psychiatric: Alert, Oriented x3, No Motor/Sensory Deficits, Normal Mood/Affect Results/Procedures Lab Laboratory Tests 04/01/20 03:05 Patient resulted labs reviewed. Assessment/Plan Assessment and Plan Assess & Plan/Chief Complaint Assessment: Severe sepsis requiring ICU status Ischemic colitis Advanced age Leukocytosis ARF Plan: ICU Abx Heparin May need OR Diagnosis/Problems Diagnosis/Problems (1) Sepsis Status: Resolved (2) Renal insufficiency Status: Resolved (3) Nausea and vomiting Status: Resolved (4) Ischemic bowel disease Status: Acute (5) Acute renal failure Status: Acute (6) Hypoxia Status: Acute Clinical Quality Measures DVT/VTE Risk/Contraindication: Risk Factor Score Per Nursin RFS Level Per Nursing on Admit: 4+=Very High AGATHA PAZ DO April 01, 2020 10:36
--- NOTE | 2020-04-01 11:02 | Physical Therapy Evaluation ---
PT Evaluation-General Medical Diagnosis Admission Date March 30, 2020 at 21:06 Medical Diagnosis: R side pain Onset Date: March 30, 2020 Therapy Diagnosis Therapy Diagnosis: decreased mobility Height/Weight Height (Feet): 5 Height (Inches): 9.00 Weight (Pounds): 226 Weight (Ounces): 9.6 Precautions Precautions/Isolations: Fall Prevention, Standard Precautions Weight Bear Status Right Lower Extremity: Right Weight Bearing/Tolerated Left Lower Extremity: Left Weight Bearing/Tolerated hx of rbka Referral Physician: Dr. Ballesteros Reason for Referral: Evaluation/Treatment Medical History Pertinent Medical History: CABG, CAD, DM, Heart Failure, HTN, Neuropathy, PVD, Smoking Additional Medical History pacemaker, R BKA Current History Pt. presented to ED with abdominal pain. Reviewed History: Yes Social History Home: Single Level Current Living Status: Spouse Entry Into Home: Stairs With Railing Prior Prior Level of Function SCALE: Activities may be completed with or without assistive devices. 7-Lfnwraycrd-nhiruiw completes the activity by him/herself with no assistance from a helper. 5-Set-up or Clean-up Assistance-helper sets up or cleans up; patient completes activity. [place] assists only prior to or following the activity. 4-Supervision or Touching Assistance-helper provides verbal cues and/or touching/steadying and/or contact guard assistance as patient completes activity. Assistance may be provided throughout the activity or intermittently. 3-Partial/Moderate Assistance-helper does LESS THAN HALF the effort. [place] lifts, holds or supports trunk or limbs, but provides less than half the effort. 2-Substantial/Maximal Assistance-helper does MORE THAN HALF the effort. [place] lifts or holds trunk or limbs and provides more than half the effort. 6-Jyahugduq-fdupzb does ALL the effort. Patient does none of the effort to complete the activity. Or, the assistance of 2 or more helpers is required for the patient to complete the activity. If activity was not attempted, code reason: 7-Patient Refused. 9-Not Applicable-not attempted and the patient did not perform the activity before the current illness, exacerbation or injury. 10-Not Attempted due to Environmental Limitations-(lack of equipment, weather restraints, etc.). 88-Not Attempted due to Medical Conditions or Safety Concerns. Bed Mobility: 6 Transfers (B,C,W/C): 6 Gait: 6 Stairs: 6 Indoor Mobility (Ambulation): Independent Stairs: Independent Prior Devices Use: Walker PT Evaluation-Current Subjective Pt. in bed, states "I'll try" to sitting up" after therapist encouragement. Pt. states he is still having a lot of abdominal pain, may be having surgery tomorrow per report. No objective pain rating given. Objective Patient Orientation: Person, Place, Time, Situation Attachments: Central Line, NG Tube, Clark Catheter ROM/Strength ROM Upper Extremities WFL ROM Lower Extremities WFL Strength Upper Extremities Grossly 4/5 Strength Lower Extremities Grossly 4/5 (B) hip, knee; L ankle Integumentary/Posture Integumentary redness at buttocks, nursing aware Bladder Incontinence: Clark Cath Neuromuscular (Tone, Coordination, Reflexes) WFL Sensory Hearing: Impaired Sensation Right Upper Extremit: Impaired Sensation Left Upper Extremity: Impaired Sensation Right Lower Extremit: Impaired Sensation Left Lower Extremity: Impaired Transfers Roll Left to Right (QC): 1 Sit to Lying (QC): 1 Lying to Sitting/Side of Bed(Q: 1 pt. only able to sit 3[address] at the edge of bed before c/o of severe abdominal pain and needing to return to supine position Gait Does the Patient Walk?: No and Walking Goal IS indicated Balance Sitting Static: Fair Treatment transfers, attempted to sit at EOB but unsuccessful due to pain. Pt. returned to supine, dependent for bed mobility and positioned R sidelying for buttocks pressure relief, nursing notified of patient request for pain meds. Assessment/Needs Pt. is an 84 y.o. male with decreased mobility and currently limited in activity level due to abdominal pain. Pt. would benefit from skilled PT to improve mobility and strength for return home at prior level. Possible surgery tomorrow per nurse and patient. Rehab Potential: Guarded PT [facility] Goals [facility] Goals PT [facility] Goals Time Frame: April 13, 2020 Roll Left & Right (QC): 4 Sit to Lying (QC): 4 Lying-Sitting on Side/Bed(QC): 4 Sit to Stand (QC): 4 Does the Patient Walk: No and Walking Goal IS indicated Walk 10 feet (QC): 4 PT Plan Problem List Problem List: Activity Tolerance, Functional Strength, Safety, Balance, Gait, Transfer, Bed Mobility, ROM Treatment/Plan Treatment Plan: Continue Plan of Care Treatment Plan: Bed Mobility, Concurrent Therapy, Education, Functional Activity Katlyn, Functional Strength, Gait, Safety, Therapeutic Exercise, T phillferdeepthi Treatment Duration: April 13, 2020 Frequency: 6 times per week Estimated Hrs Per Day: .25 hour per day Time/GCodes Time In: 1030 Time Out: 1050 Total Billed Treatment Time: 20 Total Billed Treatment 1, EVH 10', FA 10' MIQUEL BELLO PT April 01, 2020 11:02
--- NOTE | 2020-04-01 11:49 | Occupational Therapy Eval ---
OT Evaluation-General/PLF Medical Diagnosis Admission Date March 30, 2020 at 21:06 Medical Diagnosis: R side pain Onset Date: March 30, 2020 Therapy Diagnosis Therapy Diagnosis: sepsis, abdominal pain Height/Weight Height (Feet): 5 Height (Inches): 9.00 Weight (Pounds): 226 Weight (Ounces): 9.6 Precautions Precautions/Isolations: Fall Prevention, Standard Precautions Comments NPO Referral Physician: Dr. 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 Pt found to be septic/ dehydrated. NPO status. Reviewed History: Yes Social History Home: Single Level Current Living Status: Spouse Entry Into Home: Ramp Steps Into Home: 0 Steps Inside Home: 0 ADL-Prior Level of Function SCALE: Activities may be completed with or without assistive devices. 7-Xjtsktdrgk-zxlnpqg completes the activity by him/herself with no assistance from a helper. 5-Set-up or Clean-up Assistance-helper sets up or cleans up; patient completes activity. [place] assists only prior to or following the activity. 4-Supervision or Touching Assistance-helper provides verbal cues and/or touching/steadying and/or contact guard assistance as patient completes activity. Assistance may be provided throughout the activity or intermittently. 3-Partial/Moderate Assistance-helper does LESS THAN HALF the effort. [place] lifts, holds or supports trunk or limbs, but provides less than half the effort. 2-Substantial/Maximal Assistance-helper does MORE THAN HALF the effort. [place] lifts or holds trunk or limbs and provides more than half the effort. 1-Lfjvwmkpl-utrrkh does ALL the effort. Patient does none of the effort to complete the activity. Or, the assistance of 2 or more helpers is required for the patient to complete the activity. If activity was not attempted, code reason: 7-Patient Refused. 9-Not Applicable-not attempted and the patient did not perform the activity before the current illness, exacerbation or injury. 10-Not Attempted due to Environmental Limitations-(lack of equipment, weather restraints, etc.). 88-Not Attempted due to Medical Conditions or Safety Concerns. ADL PLOF Comments Pt states he is IND with ADLs, though assist required for driving and some IADLs. Self Care: Independent Functional Cognition: Independent DME/Equipment Comments Pt states utilizes w/c for mobility, has 2WW for transfers Occupation: retired. Drive Self: No Leisure Interests: cars and outdoor work. OT Current Status Subjective Nursing confirmed OT eval, stating morphine was administered ~30 min prior. Pt drowsy, oriented to person/ situation. States it may be "2002 or 2000." Pt states medication is making him foggy. Pt states pain, but "getting better" in abdomen. Mental Status/Objective Patient Orientation: Person, Situation Attachments: Clark Catheter, NG Tube, Oxygen Current Glasses/Contacts: Yes Hearing Aids: Yes Dentures/Partials: Yes Hand Dominance: Right Upper Extremity ROM WFL BUE Upper Extremity Coordination WFL BUE Upper Extremity Sensation Neuropathy BUE per pt. Upper Extremity Strength DNT due to pain. ADL-Treatment Eating (QC): 88 On/Off Footwear (QC): 1 (based on clinical presentation/ clinical judgment.) Toileting Hygiene (QC): 1 (based on clinical presentation/ clinical judgment.) Other Treatments Pt seen in bed. Pt awake, though drowsy. Pt agrees to therapy, though states does not want to get up (PT/ nursing was consulted prior to OT entry, see PT notes for mobility). Pt completes med/ home environment hx. Pt states at the moment he can not/ does not want to move. Pt able to complete UE ROM screening, stating neuropathy bilaterally. Pt educated on OT role and attempt to work with him at next available time. Pt agrees, stating if his pain decreases. Pt left in bed with call light in reach, all needs met, nursing notified of pt position. Education OT Patient Education: Purpose of tx/functional activities, Rehab process, Safety issues Teaching Recipient: Patient Teaching Methods: Demonstration, Discussion Response to Teaching: Verbalize Understanding, Reinforcement Needed OT Roll Plugger Goals Shelter Goals Time Frame: April 15, 2020 Oral Hygiene (QC): 6 Toileting Hygiene (QC): 6 Shower/Bathe Self (QC): 6 Upper Body Dressing (QC): 6 Lower Body Dressing (QC): 6 On/Off Footwear (QC): 6 Additional Goals: 1-Demonstrate ADL Tasks, 2-Verbalize Understanding, 3- ImproveStrength/Katlyn 1=Demonstrate adherence to instructed precautions during ADL tasks. 2=Patient will verbalize/demonstrate understanding of assistive devices/modifications for ADL. 3=Patient will improve strength/tolerance for activity to enable patient to perform ADL's. OT Education/Plan Problem List/Assessment Assessment: Decreased Activ Tolerance, Decreased UE Strength, Dependent Transfers, Impaired Cognition, Impaired Coordination, Impaired Funct Balance, Impaired I ADL's, Impaired Self-Care Skills Discharge Recommendations Plan/Recommendations: Continue POC Therapy Discharge Recommendati: Scheduled Assistance, Bath Aide, Post Acute OT Treatment Plan/Plan of Care Treatment,Training & Education: Yes Patient would benefit from OT for education, treatment and training to promote independence in ADL's, mobility, safety and/or upper extremity function for ADL's. Plan of Care: ADL Retraining, Caregiver Training, Functional Mobility, UE Funct Exercise/Act Treatment Duration: April 15, 2020 Frequency: 5 times per week Estimated Hrs Per Day: .25 hour per day Agreement: Yes Rehab Potential: Guarded Time/GCodes Start Time: 11:28 Stop Time: 11:36 Total Time Billed (hr/min): 8 Billed Treatment Time CATALINA Jarvis (8) BETH VASQUES OTR April 01, 2020 11:49
--- NOTE | 2020-04-01 13:00 | NUR ---
CM/SS visited with the patient to assess for needs upon discharge. The patient appeared very groggy and tired during the visit. He currently lives at home with his Faby. The patient stated that his is on Oxygen and just had a broken hip a few months ago. He reports she is not in the greatest of health. The patient verbalized that while he is on oxygen now, he does not wear oxygen at his baseline. He was discharge from the hospital last month and was doing well with his Home Health but after they discharged him from service he got sick again. Patient is unsure of home health agency. CM/SS will attempt to find it in past records. He stated that when he was at home he would get around using a wheelchair and a walker. CM/SS will follow up with the DME. Unsure of who that is at this time. The patient was in and out of sleep during visit; therefore, CM/SS let the patient rest. CM/SS will follow with patient to assess for needs at discharge.
[2020-04-01] MEDS ORDERED: FLUO20CA46 PO (13:39)
[2020-04-01] MEDS ORDERED: CALC600T12 PO (13:39)
[2020-04-01] MEDS ORDERED: ASCO500C17 PO (13:39)
[2020-04-01] MEDS ORDERED: ASPI325T32 PO (13:39)
[2020-04-01] MEDS ORDERED: FURO20TA4 PO (13:39)
[2020-04-01] MEDS ORDERED: PEG15DRO9 OU (13:41)
--- NOTE | 2020-04-01 13:41 | NUR ---
SPOKE WITH THE PT- HE INDICATED THERE SHOULD BE A MED LIST ON FILE (THERE WAS) AND THAT I SHOULD SPEAK WITH HIS RAMANA TO ANSWER ANY QUESTIONS. I SPOKE WITH RAMANA AND WENT THRU THE EXT MED HISTORY TO COMPLETE THE MED REC ON THE MED LIST THERE ARE SOME MEDICATIONS THAT THE PT IS NO LONGER TAKING: LISINOPRIL, FISH OIL, AMLODIPINE, PRAVASTATIN AND ALPHAGAN EYE DROPS HAVE ALL BEEN DC'D ALL OTHER MEDS ARE ON THE EXT MED HISTORY AND HAVE GOOD DATING OTC MEDS: DRY EYE DROPS CALCIUM VIT C MTV ECOTRIN
--- NOTE | 2020-04-01 14:41 | Occ Therapy Progress Note ---
Therapy Progress Note Attempted visit this afternoon. Pt states his pain is under control, but apologetically denies working with OT stating he needs to rest. 1, visit. BETH VASQUES OTR April 01, 2020 14:41
--- NOTE | 2020-04-01 15:30 | NUR ---
IRF Evaluation Order received to evaluate patient for the ARU. Upon completion of chart review it has been determined patient's performance/participation with PT/OT is limited by pain. It appears there is a possibility the patient will undergo, "exploration with possible colectomy all other indicated procedures." Will continue to follow for ongoing evaluation as it relates to inpatient rehab. Thank you for this referral.
[2020-04-01] MEDS: HEParin DRIP 25000 UNIT/500ML 500 ML IV SCH (19:29)
[2020-04-02] VITALS (21 sets, daily range): BP systolic 109–146; BP diastolic 45–66
[2020-04-02] MEDS: NOREPINEPHRINE 4 MG/250 ML 250 ML IV SCH ×4 (00:13→20:04)
[2020-04-02] MEDS: VASOPRESSIN INJECTION 20 UNIT in NORMAL SALINE 100 ML IV SCH ×3 (00:13→20:03)
[2020-04-02] MEDS: PIPERACILLIN/TAZOBACTAM (BULK) 4.5 GM in NS (IVPB) 100 ML IV SCH ×3 (01:06→17:39)
[2020-04-02 03:06] LABS: BASOPHILS % (AUTO) 0 % (0-10); EOSINOPHILS # (AUTO) 0.2 10^3/uL (0.0-0.3); EOSINOPHILS % (AUTO) 3 % (0-10); HEMATOCRIT 30 % (40-54); HEMOGLOBIN 9.7 G/DL (13.3-17.7); LYMPHOCYTES # (AUTO) 0.8 X 10^3 (1.0-4.0); LYMPHOCYTES % (AUTO) 12 % (12-44); MEAN CORPUSCULAR HEMOGLOBIN 30 PG (25-34); MEAN CORPUSCULAR HGB CONC 32 G/DL (32-36); MEAN CORPUSCULAR VOLUME 93 FL (80-99); MEAN PLATELET VOLUME 10.4 FL (7.4-10.4); MONOCYTES # (AUTO) 0.4 X 10^3 (0.0-1.0); MONOCYTES % (AUTO) 5 % (0-12); NEUTROPHILS # (AUTO) 5.5 X 10^3 (1.8-7.8); NEUTROPHILS % (AUTO) 81 % (42-75); PLATELET COUNT 138 10^3/uL (130-400); WHITE BLOOD COUNT 6.9 10^3/uL (4.3-11.0)
[2020-04-02 03:21] LABS: ALBUMIN 2.6 GM/DL (3.2-4.5); POTASSIUM 3.8 MMOL/L (3.6-5.0)
[2020-04-02 03:22] LABS: CALCIUM 7.8 MG/DL (8.5-10.1)
[2020-04-02 03:24] LABS: TOTAL PROTEIN 5.1 GM/DL (6.4-8.2)
[2020-04-02 03:25] LABS: BILIRUBIN,TOTAL 0.8 MG/DL (0.1-1.0)
[2020-04-02 03:27] LABS: CREATININE SERUM 1.4 MG/DL (0.60-1.30); PHOSPHORUS 2.4 MG/DL (2.3-4.7)
[2020-04-02 03:30] LABS: MAGNESIUM 2.1 MG/DL (1.6-2.4)
[2020-04-02] MEDS: KCL 20 MEQ TAB (K-DUR) PO SCH (03:42)
[2020-04-02] MEDS: POTASSIUM CL 10MEQ/50ML IVPB 50 ML IV SCH (03:42)
[2020-04-02] MEDS: MAGNESIUM 1 GM/100 ML IVPB 100 ML IV SCH (03:42)
[2020-04-02] MEDS: NS IV 1000 ML 1,000 ML IV SCH ×3 (04:12→20:44)
[2020-04-02] MEDS: HEParin 1000 UNIT/ML (10ML VIAL) FOR BOLUS IV SCH (04:12)
[2020-04-02] MEDS: inSUlin ASPART (NovoLOG) 1 UNIT/0.01 ML (CHARGE PER UNIT) SC SCH ×6 (04:17→23:42)
--- NOTE | 2020-04-02 06:05 | Pulmonary Progress Note ---
Subjective Time Seen by a Provider: 06:04 Subjective/Events-last exam Abd pain controlled with morphine Sepsis Event Evaluation Height, Weight, BMI Height: 5'9.00" Weight: 226lbs. 9.6oz. 102.589786xw; 31.78 BMI Method:Stated Focused Exam Lactate Level 03/30/20 22:00: Lactic Acid Level 3.80*H 03/31/20 00:34: Lactic Acid Level 2.12*H 03/31/20 02:23: Lactic Acid Level 2.00 Time of Focused Exam: 21:55 Exam Exam Vital Signs Date Time Temp Pulse Resp B/P (MAP) Pulse Ox O2 Delivery O2 Flow Rate FiO2 04/02/20 04:15 37.0 Nasal Cannula 2.00 04/02/20 04:00 70 19 123/48 (73) 95 Nasal Cannula 2.00 04/02/20 04:00 97 Nasal Cannula 2.00 04/02/20 03:00 70 18 119/54 (75) 95 Nasal Cannula 2.00 04/02/20 02:00 70 16 129/49 (75) 96 Nasal Cannula 2.00 04/02/20 01:00 70 15 114/50 (71) 95 Nasal Cannula 2.00 04/02/20 01:00 70 04/02/20 00:00 70 16 109/45 (66) 96 Nasal Cannula 2.00 04/01/20 23:45 99 Nasal Cannula 2.00 04/01/20 23:35 37.0 Nasal Cannula 2.00 04/01/20 23:00 70 14 107/49 (68) 96 Nasal Cannula 2.00 04/01/20 22:00 70 18 117/47 (70) 96 Nasal Cannula 2.00 04/01/20 21:00 73 15 124/49 (74) 99 Nasal Cannula 2.00 04/01/20 20:00 73 19 127/50 (75) 99 Nasal Cannula 2.00 04/01/20 20:00 37.1 04/01/20 19:50 99 Nasal Cannula 2.00 04/01/20 19:30 Nasal Cannula 2.00 04/01/20 19:00 71 04/01/20 19:00 72 19 122/49 (73) 98 Nasal Cannula 2.00 04/01/20 18:00 36.9 73 12 131/54 (79) 98 Nasal Cannula 2.00 04/01/20 17:00 36.9 70 19 95/70 (78) 96 Nasal Cannula 2.00 04/01/20 16:23 97 Nasal Cannula 2.00 04/01/20 16:00 36.9 04/01/20 16:00 36.9 70 18 117/49 (71) 95 Nasal Cannula 2.00 04/01/20 15:00 70 11 121/52 (75) 96 Nasal Cannula 2.00 04/01/20 14:00 70 22 111/54 (73) 92 Nasal Cannula 2.00 04/01/20 13:29 70 111/50 04/01/20 13:00 70 17 118/50 (72) 94 Nasal Cannula 2.00 04/01/20 13:00 70 04/01/20 12:35 96 Nasal Cannula 2.00 04/01/20 12:00 70 17 118/54 (75) 93 Nasal Cannula 2.00 04/01/20 11:14 37.1 04/01/20 11:00 73 12 111/50 (70) 95 Nasal Cannula 2.00 04/01/20 10:00 70 12 110/51 (70) 94 Nasal Cannula 2.00 04/01/20 09:00 70 18 107/56 (73) 90 Nasal Cannula 2.00 04/01/20 08:15 92 Nasal Cannula 2.00 04/01/20 08:00 70 18 113/45 (67) 96 Nasal Cannula 2.00 04/01/20 07:26 36.8 04/01/20 07:26 36.8 04/01/20 07:00 70 20 118/44 (68) 93 Nasal Cannula 2.00 04/01/20 07:00 70 I & O 04/02/20 07:00 Intake Total 3750 ml Output Total 925 ml Balance 2825 ml Height & Weight Height: 5'9.00" Weight: 226lbs. 9.6oz. 102.002100zk; 31.78 BMI Method:Stated General Appearance: No Apparent Distress, WD/WN, Chronically ill HEENT: PERRL/EOMI, Normal ENT Inspection, Other (oropharynx dry) Neck: Normal Inspection Respiratory: Chest Non Tender, Lungs Clear, Normal Breath Sounds, No Accessory Muscle Use, No Respiratory Distress Cardiovascular: Regular Rate, Rhythm, No Edema, No Gallop, No JVD, No Murmur, Normal Peripheral Pulses Capillary Refill: Less Than 3 Seconds Peripheral Pulses: 2+ Radial Pulses (L) Gastrointestinal: soft, tenderness (diffusely) Extremity: Normal Inspection, No Pedal Edema, Other (right BKA) Neurologic/Psychiatric: Alert, Oriented x3, No Motor/Sensory Deficits, Normal Mood/Affect Skin: Normal Color, Warm/Dry Lymphatic: No Adenopathy Results Lab Laboratory Tests 04/01/20 03:05 04/02/20 02:45 Assessment/Plan Assessment/Plan Septic shock with colitis - with possible ischemic colitis -Surgery is following -Currently on Hep gtt -IVF currently at 150 -Vanco/zosyn Acute renal failure-- improving To floor when ok with surgery. I will sign off once pt is transferred to 4th floor. BRETT HOPKINS DO April 02, 2020 06:05
--- NOTE | 2020-04-02 07:27 | Diagnostic Imaging Report ---
INDICATION: Dyspnea. COMPARISON: 04/01/2020 FINDINGS: Single frontal radiographic view of the chest was obtained and demonstrates persistent marked cardiomegaly. Pulmonary vasculature is within normal limits. Indwelling gastric tube is again noted. Distal tip is not well visualized. Right internal jugular central venous catheter is also seen with tip in the SVC. Left-sided dual-lead pacemaker and sternotomy wires are also again noted. There has been interval improved aeration of the left lung base. Mild right basilar effusion persists. No pneumothorax is seen on either side. Osseous structures show no gross acute interval change. IMPRESSION: 1. Interval improved aeration of the left lung base. 2. Probable small right basal effusion. 3. Persistent moderate cardiomegaly. 4. Lines and tubes as above. Dictated by: Dictated on workstation # [id number]
[2020-04-02] MEDS: PANTOPRAZOLE 40 MG (PROTONIX) VIAL IV SCH ×2 (08:39→20:42)
--- NOTE | 2020-04-02 09:26 | Physical Therapy Daily Note ---
PT Daily Note-Current Subjective Patient reports 10/10 abdominal pain. Does agree to attempt sitting EOB and exercise. Pain Numeric Pain Scale: 10-Worst Possible Pain Location: Medial, Lower Location Body Site: Abdomen Pain Description: Acute Comment: RN notified Mental Status Patient Orientation: Normal For Age Attachments: NG Tube, Clark Catheter, IV Transfers SCALE: Activities may be completed with or without assistive devices. 3-Numqhybwlk-lyvuipf completes the activity by him/herself with no assistance from a helper. 5-Set-up or Clean-up Assistance-helper sets up or cleans up; patient completes activity. [place] assists only prior to or following the activity. 4-Supervision or Touching Assistance-helper provides verbal cues and/or t ouching/steadying and/or contact guard assistance as patient completes activity. Assistance may be provided throughout the activity or intermittently. 3-Partial/Moderate Assistance-helper does LESS THAN HALF the effort. [place] lifts, holds or supports trunk or limbs, but provides less than half the effort. 2-Substantial/Maximal Assistance-helper does MORE THAN HALF the effort. Rule lifts or holds trunk or limbs and provides more than half the effort. 8-Rgjchlqfk-sphavj does ALL the effort. Patient does none of the effort to complete the activity. Or, the assistance of 2 or more helpers is required for the patient to complete the activity. If activity was not attempted, code reason: 7-Patient Refused. 9-Not Applicable-not attempted and the patient did not perform the activity before the current illness, exacerbation or injury. 10-Not Attempted due to Environmental Limitations-(lack of equipment, weather restraints, etc.). 88-Not Attempted due to Medical Conditions or Safety Concerns. Roll Left & Right (QC): 2 attempted to sit EOB, however, increase in abdominal pain restricted/prevented task Weight Bearing Right Lower Extremity: Right Weight Bearing/Tolerated Left Lower Extremity: Left Weight Bearing/Tolerated hx of rbka Exercises Supine Ex: Ankle pumps, Quad Set, Heel Slides Supine Reps: 12 Assessment Patient tolerates minimal activity due to abdominal pain. RN notified. Patient repositioned to sidelying right with pillow placement behind back and between LE's. PT Group Home Goals Group Home Goals PT Special Systems Technician Goals Time Frame: April 13, 2020 Roll Left & Right (QC): 4 Sit to Lying (QC): 4 Lying-Sitting on Side/Bed(QC): 4 Sit to Stand (QC): 4 Does the Patient Walk: No and Walking Goal IS indicated Walk 10 feet (QC): 4 PT Plan Treatment/Plan Treatment Plan: Continue Plan of Care Treatment Plan: Bed Mobility, Concurrent Therapy, Education, Functional Activity Katlyn, Functional Strength, Gait, Safety, Therapeutic Exercise, Transfers Treatment Duration: April 13, 2020 Frequency: 6 times per week Estimated Hrs Per Day: .25 hour per day Time/GCodes Time In: 815 Time Out: 827 Total Billed Treatment Time: 12 Total Billed Treatment 1 visit EX 12 min DHARMESH PAYNE PT April 02, 2020 09:26
--- NOTE | 2020-04-02 10:21 | Occ Therapy Progress Note ---
Therapy Progress Note OT attempted tx but pt declined with moderate encouragement stating his pain level is too high right now. OT informed pt she would check back later today to see if he is feeling better and able to participate in therapy. Pt replied "you think it will be better by then?". OT stated she would check in with pt later to see how he is feeling. 1, visit. 1005 JEAN MORENO OT April 02, 2020 10:21
--- NOTE | 2020-04-02 11:40 | NUR ---
CM/SS follow up. The patient was in bed during the visit. He appeared to be grimacing possibly from pain. CM/SS asked if he was in pain and he verbalized, yes. The physician was rounding on patient; therefore, this ss stepped out. CM/SS spoke with physician. She stated that he is being looked at for inpatient rehab. CM/SS informed her that other options will be discussed during this visit. CM/SS spoke to the patient about the inpatient rehab and skilled placement. He verbalized that he would be willing to go if needed but wanted to know about surgery first. CM/SS spoke with the surgeon who stated that he will be doing a diagnostic laparotomy tomorrow 04/03. The patients nurse verbalized that the patient states he is in a lot of pain but reports he will only need ice chips. However, at other times he is unable to do therapy due to his pain. CM/SS will continue to follow with the patient.
--- NOTE | 2020-04-02 13:45 | Occ Therapy Progress Note ---
Therapy Progress Note OT attempted tx this afternoon, pt again declined therapy after moderate encouragement from OT. Pt reports he is having difficulty breathing due to tape on his nose, sats dropped to 88% O2 during conversation, OT instructed pt to take deep breaths in through his nose and out through his mouth. Pt stated "I told you I can't breathe", pt took deep breaths and able to bring O2 sats into 90s within 10 seconds. OT notified nurse of pt's complaints of tape and pt's positioning. OT will attempt tx again next available date. 1, visit 1330 JEAN MORENO OT April 02, 2020 13:45
[2020-04-02] MEDS: HEParin DRIP 25000 UNIT/500ML 500 ML IV SCH (13:49)
--- NOTE | 2020-04-02 13:53 | Progress Note - Surgery ---
Subjective Date Seen by a Provider: April 02, 2020 Time Seen by a Provider: 13:48 Subjective/Events-last exam Patient states doing okay. He states pain right side of abdomen about 7/10. Laying still seems to have no pain. If push on the area severe pain. Denies n/v fever sweats chills shortness of breath or chest pain. Focused Exam Lactate Level 03/30/20 22:00: Lactic Acid Level 3.80*H 03/31/20 00:34: Lactic Acid Level 2.12*H 03/31/20 02:23: Lactic Acid Level 2.00 Time of Focused Exam: 21:55 Objective Exam Vital Signs Date Time Temp Pulse Resp B/P (MAP) Pulse Ox O2 Delivery O2 Flow Rate FiO2 04/02/20 12:07 36.8 04/02/20 10:17 70 138/55 04/02/20 09:00 70 17 138/55 (82) 98 Nasal Cannula 2.00 04/02/20 08:15 97 Nasal Cannula 2.00 04/02/20 08:00 70 13 139/54 (82) 96 Nasal Cannula 2.00 04/02/20 07:59 36.9 04/02/20 07:00 73 21 135/51 (79) 98 Nasal Cannula 2.00 04/02/20 07:00 74 04/02/20 06:00 70 17 125/50 (75) 96 Nasal Cannula 2.00 04/02/20 05:00 70 18 128/55 (79) 97 Nasal Cannula 2.00 04/02/20 04:15 37.0 Nasal Cannula 2.00 04/02/20 04:00 70 19 123/48 (73) 95 Nasal Cannula 2.00 04/02/20 04:00 97 Nasal Cannula 2.00 04/02/20 03:00 70 18 119/54 (75) 95 Nasal Cannula 2.00 04/02/20 02:00 70 16 129/49 (75) 96 Nasal Cannula 2.00 04/02/20 01:00 70 15 114/50 (71) 95 Nasal Cannula 2.00 04/02/20 01:00 70 04/02/20 00:00 70 16 109/45 (66) 96 Nasal Cannula 2.00 04/01/20 23:45 99 Nasal Cannula 2.00 04/01/20 23:35 37.0 Nasal Cannula 2.00 04/01/20 23:00 70 14 107/49 (68) 96 Nasal Cannula 2.00 04/01/20 22:00 70 18 117/47 (70) 96 Nasal Cannula 2.00 04/01/20 21:00 73 15 124/49 (74) 99 Nasal Cannula 2.00 04/01/20 20:00 73 19 127/50 (75) 99 Nasal Cannula 2.00 04/01/20 20:00 37.1 04/01/20 19:50 99 Nasal Cannula 2.00 04/01/20 19:30 Nasal Cannula 2.00 04/01/20 19:00 71 04/01/20 19:00 72 19 122/49 (73) 98 Nasal Cannula 2.00 04/01/20 18:00 36.9 73 12 131/54 (79) 98 Nasal Cannula 2.00 04/01/20 17:00 36.9 70 19 95/70 (78) 96 Nasal Cannula 2.00 04/01/20 16:23 97 Nasal Cannula 2.00 04/01/20 16:00 36.9 04/01/20 16:00 36.9 70 18 117/49 (71) 95 Nasal Cannula 2.00 04/01/20 15:00 70 11 121/52 (75) 96 Nasal Cannula 2.00 04/01/20 14:00 70 22 111/54 (73) 92 Nasal Cannula 2.00 I & O 04/02/20 07:00 Intake Total 3870 ml Output Total 925 ml Balance 2945 ml Capillary Refill : Less Than 3 Seconds General Appearance: No Apparent Distress, WD/WN, Chronically ill HEENT: PERRL/EOMI, Normal ENT Inspection, Other (oropharynx dry) Neck: Normal Inspection Respiratory: Chest Non Tender, No Accessory Muscle Use, No Respiratory Distress Cardiovascular: Regular Rate, Rhythm, Normal Peripheral Pulses Peripheral Pulses: 2+ Radial Pulses (L) Gastrointestinal: soft, tenderness (significant pain right side of abdomen) Extremity: Normal Inspection, No Pedal Edema, Other (right BKA) Neurologic/Psychiatric: Alert, Oriented x3, No Motor/Sensory Deficits, Normal Mood/Affect Skin: Normal Color, Warm/Dry Lymphatic: No Adenopathy Results Lab Laboratory Tests 04/01/20 15:41: Glucometer 190H 04/01/20 16:50: Activated Partial Thromboplast Time 73H 04/01/20 19:39: Glucometer 153H 04/01/20 23:35: Glucometer 151H 04/02/20 02:45: White Blood Count 6.9, Red Blood Count 3.28L, Hemoglobin 9.7L, Hematocrit 30L, Mean Corpuscular Volume 93, Mean Corpuscular Hemoglobin 30, Mean Corpuscular Hemoglobin Concent 32, Red Cell Distribution Width 14.0, Platelet Count 138, Mean Platelet Volume 10.4, Neutrophils (%) (Auto) 81H, Lymphocytes (%) (Auto) 12, Monocytes (%) (Auto) 5, Eosinophils (%) (Auto) 3, Basophils (%) (Auto) 0, Neutrophils # (Auto) 5.5, Lymphocytes # (Auto) 0.8L, Monocytes # (Auto) 0.4, Eosinophils # (Auto) 0.2, Basophils # (Auto) 0.0, Activated Partial Thromboplast Time 65H, Sodium Level 140, Potassium Level 3.8, Chloride Level 109H, Carbon Dioxide Level 22, Anion Gap 9, Blood Urea Nitrogen 25H, Creatinine 1.40H, Estimat Glomerular Filtration Rate 48, BUN/Creatinine Ratio 18, Glucose Level 161H, Calcium Level 7.8L, Corrected Calcium 8.9, Phosphorus Level 2.4, Magnesium Level 2.1, Total Bilirubin 0.8, Aspartate Amino Transf (AST/SGOT) 19, Alanine Aminotransferase (ALT/SGPT) 16, Alkaline Phosphatase 51, Total Protein 5.1L, Albumin 2.6L 04/02/20 04:17: Glucometer 165H 04/02/20 08:06: Glucometer 184H 04/02/20 10:20: Activated Partial Thromboplast Time 111H 04/02/20 11:44: Glucometer 176H Microbiology 03/30/20 Urine Culture - Final, Complete NO GROWTH 03/30/20 Blood Culture - Preliminary, Resulted No growth 03/30/20 MRSA Screen - Final, Complete MRSA not isolated Assessment/Plan Assessment/Plan Assessment/Plan abdominal pain, right side ischemic colitis sepsis wbc down and abdominal pain extremely tender right side has history of ischemic bowel which concern that he may have some ischemic bowel will continue to monitor in icu at this time. Will hold heparin drip at midnight Plan on diagnostic laparoscopy possible open exploration with possible colectomy all other indicated procedures. Feel he may have portion of bowel that is ischemic due to his significant pain in right side of abdomen on exam. Patient agrees with plan. Consent NPO Clinical Quality Measures DVT/VTE Risk/Contraindication: Risk Factor Score Per Nursin RFS Level Per Nursing on Admit: 4+=Very High NEHAL GREENBERG DO April 02, 2020 13:53
[2020-04-02] MEDS: morphine INJ 4 MG/ML 1 ML (VIAL/SYRINGE) IV PRN ×2 (13:56→17:39)
--- NOTE | 2020-04-02 18:38 | Progress Note - Hospitalist ---
Subjective HPI/CC On Admission Date Seen by Provider: April 02, 2020 Time Seen by Provider: 10:00 Chief complaint: Abdominal pain with severe sepsis ICU admission consulted for medical management History of present illness: This is an 84-year-old white male with a history of multiple vascular procedures and vascular conditions who presents to the emergency room with abdominal pain found to have severe sepsis requiring ICU admission. 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 Patient was placed on heparin full dose drip in addition broad-spectrum antibiotics initiated for coverage of bacterial colitis. Currently patient is doing a little better he reports the pain comes and goes and he is in guarded prognosis at this current time. NG tube is in place. Check meds and labs. Conferred with RN. 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 possibly needing senior living, really depends on his ability to participate after surgery but advanced age of 84 and such a large body habitus makes it a possibility that he would not be able to return home Reviewed meds and labs Review of Systems General: Fatigue Gastrointestinal: Abdominal Pain Neurological: Confusion Focused Exam Lactate Level 03/30/20 22:00: Lactic Acid Level 3.80*H 03/31/20 00:34: Lactic Acid Level 2.12*H 03/31/20 02:23: Lactic Acid Level 2.00 Time of Focused Exam: 21:55 Objective Exam Vital Signs Vital Signs Date Time Temp Pulse Resp B/P (MAP) Pulse Ox O2 Delivery O2 Flow Rate FiO2 04/02/20 17:00 70 27 142/66 (91) 93 Nasal Cannula 2.00 04/02/20 15:41 36.8 Capillary Refill : Less Than 3 Seconds General Appearance: WD/WN, Chronically ill, Mild Distress Respiratory: Chest Non Tender, Lungs Clear, Normal Breath Sounds, No Accessory Muscle Use, No Respiratory Distress Cardiovascular: Regular Rate, Rhythm, No Edema, No Gallop, No JVD, No Murmur, Normal Peripheral Pulses Neurologic/Psychiatric: Alert, Oriented x3, No Motor/Sensory Deficits, Normal Mood/Affect Results/Procedures Lab Laboratory Tests 04/02/20 02:45 Patient resulted labs reviewed. Assessment/Plan Assessment and Plan Assess & Plan/Chief Complaint Assessment: Severe sepsis requiring ICU status Ischemic colitis Advanced age Leukocytosis ARF Plan: ICU Abx Heparin OR tomorrow hold Hep gtts at midnight Diagnosis/Problems Diagnosis/Problems (1) Sepsis Status: Resolved (2) Renal insufficiency Status: Resolved (3) Nausea and vomiting Status: Resolved (4) Ischemic bowel disease Status: Acute (5) Acute renal failure Status: Acute (6) Hypoxia Status: Acute Clinical Quality Measures DVT/VTE Risk/Contraindication: Risk Factor Score Per Nursin RFS Level Per Nursing on Admit: 4+=Very High AGATHA PAZ DO April 02, 2020 18:38
[2020-04-03] VITALS (26 sets, daily range): BP systolic 129–193; BP diastolic 39–99
[2020-04-03] MEDS: NS IV 1000 ML 1,000 ML IV SCH ×3 (01:57→20:26)
[2020-04-03] MEDS: PIPERACILLIN/TAZOBACTAM (BULK) 4.5 GM in NS (IVPB) 100 ML IV SCH ×3 (01:57→17:26)
[2020-04-03] MEDS: VASOPRESSIN INJECTION 20 UNIT in NORMAL SALINE 100 ML IV SCH ×3 (02:15→20:10)
[2020-04-03 02:44] LABS: BASOPHILS % (AUTO) 0 % (0-10); EOSINOPHILS # (AUTO) 0.1 10^3/uL (0.0-0.3); EOSINOPHILS % (AUTO) 2 % (0-10); HEMATOCRIT 31 % (40-54); HEMOGLOBIN 9.8 G/DL (13.3-17.7); LYMPHOCYTES # (AUTO) 0.7 X 10^3 (1.0-4.0); LYMPHOCYTES % (AUTO) 11 % (12-44); MEAN CORPUSCULAR HEMOGLOBIN 29 PG (25-34); MEAN CORPUSCULAR HGB CONC 32 G/DL (32-36); MEAN CORPUSCULAR VOLUME 92 FL (80-99); MEAN PLATELET VOLUME 9.7 FL (7.4-10.4); MONOCYTES # (AUTO) 0.6 X 10^3 (0.0-1.0); MONOCYTES % (AUTO) 9 % (0-12); NEUTROPHILS # (AUTO) 4.9 X 10^3 (1.8-7.8); NEUTROPHILS % (AUTO) 78 % (42-75); PLATELET COUNT 155 10^3/uL (130-400); WHITE BLOOD COUNT 6.2 10^3/uL (4.3-11.0)
[2020-04-03 03:11] LABS: ALBUMIN 2.6 GM/DL (3.2-4.5); CREATININE SERUM 1.3 MG/DL (0.60-1.30); PHOSPHORUS 2.2 MG/DL (2.3-4.7); POTASSIUM 3.8 MMOL/L (3.6-5.0); TOTAL PROTEIN 5.1 GM/DL (6.4-8.2)
[2020-04-03] MEDS: NOREPINEPHRINE 4 MG/250 ML 250 ML IV SCH ×3 (03:18→20:10)
[2020-04-03] MEDS: POTASSIUM CL 10MEQ/50ML IVPB 50 ML IV SCH (03:18)
[2020-04-03] MEDS: KCL 20 MEQ TAB (K-DUR) PO SCH (03:18)
[2020-04-03] MEDS: MAGNESIUM 1 GM/100 ML IVPB 100 ML IV SCH (03:18)
[2020-04-03] MEDS: inSUlin ASPART (NovoLOG) 1 UNIT/0.01 ML (CHARGE PER UNIT) SC SCH ×5 (04:20→20:10)
--- NOTE | 2020-04-03 06:23 | Pulmonary Progress Note ---
Subjective Time Seen by a Provider: 06:22 Subjective/Events-last exam Plan is for surgery today. Sepsis Event Evaluation Height, Weight, BMI Height: 5'9.00" Weight: 226lbs. 9.6oz. 102.527013ed; 31.78 BMI Method:Stated Focused Exam Time of Focused Exam: 21:55 Exam Exam Vital Signs Date Time Temp Pulse Resp B/P (MAP) Pulse Ox O2 Delivery O2 Flow Rate FiO2 04/03/20 05:00 70 18 144/58 (86) 96 Nasal Cannula 2.00 04/03/20 04:18 36.9 04/03/20 04:00 70 20 145/99 (114) 94 Nasal Cannula 2.00 04/03/20 03:50 96 Nasal Cannula 2.00 04/03/20 03:50 36.9 Nasal Cannula 2.00 04/03/20 02:00 70 19 133/52 (79) 95 Nasal Cannula 2.00 04/03/20 01:00 70 26 147/60 (89) 93 Nasal Cannula 2.00 04/03/20 01:00 70 04/03/20 00:24 37.0 04/03/20 00:00 70 19 139/57 (84) 94 Nasal Cannula 2.00 04/02/20 23:40 94 Nasal Cannula 2.00 04/02/20 23:40 37.1 Nasal Cannula 2.00 04/02/20 23:00 70 18 139/62 (87) 96 Nasal Cannula 2.00 04/02/20 22:00 70 18 131/60 (83) 96 Nasal Cannula 2.00 04/02/20 21:00 70 17 132/53 (79) 97 Nasal Cannula 2.00 04/02/20 20:00 70 17 118/46 (70) 96 Nasal Cannula 2.00 04/02/20 19:45 95 Nasal Cannula 2.00 04/02/20 19:00 70 04/02/20 19:00 36.8 Nasal Cannula 2.00 04/02/20 19:00 70 16 127/58 (81) 94 Nasal Cannula 2.00 04/02/20 18:00 70 17 130/62 (84) 93 Nasal Cannula 2.00 04/02/20 17:00 70 27 142/66 (91) 93 Nasal Cannula 2.00 04/02/20 16:55 97 Nasal Cannula 2.00 04/02/20 16:00 70 17 140/55 (83) 93 Nasal Cannula 2.00 04/02/20 15:41 36.8 04/02/20 15:00 70 11 146/62 (90) 93 Nasal Cannula 2.00 04/02/20 14:00 70 20 135/63 (87) 97 Nasal Cannula 2.00 04/02/20 13:00 70 04/02/20 13:00 70 27 143/54 (83) 96 Nasal Cannula 2.00 04/02/20 12:15 97 Nasal Cannula 2.00 04/02/20 12:07 36.8 04/02/20 10:17 70 138/55 04/02/20 09:00 70 17 138/55 (82) 98 Nasal Cannula 2.00 04/02/20 08:15 97 Nasal Cannula 2.00 04/02/20 08:00 70 13 139/54 (82) 96 Nasal Cannula 2.00 04/02/20 07:59 36.9 04/02/20 07:00 73 21 135/51 (79) 98 Nasal Cannula 2.00 04/02/20 07:00 74 I & O 04/03/20 07:00 Intake Total 1240 ml Output Total 1530 ml Balance -290 ml Height & Weight Height: 5'9.00" Weight: 226lbs. 9.6oz. 102.399469np; 31.78 BMI Method:Stated General Appearance: WD/WN, Chronically ill, Mild Distress HEENT: PERRL/EOMI, Normal ENT Inspection, Other (oropharynx dry) Neck: Normal Inspection Respiratory: Chest Non Tender, Lungs Clear, Normal Breath Sounds, No Accessory Muscle Use, No Respiratory Distress Cardiovascular: Regular Rate, Rhythm, No Edema, No Gallop, No JVD, No Murmur, Normal Peripheral Pulses Capillary Refill: Less Than 3 Seconds Peripheral Pulses: 2+ Radial Pulses (L) Gastrointestinal: soft, tenderness (significant pain right side of abdomen) Extremity: Normal Inspection, No Pedal Edema, Other (right BKA) Neurologic/Psychiatric: Alert, Oriented x3, No Motor/Sensory Deficits, Normal Mood/Affect Skin: Normal Color, Warm/Dry Lymphatic: No Adenopathy Results Lab Laboratory Tests 04/02/20 02:45 04/03/20 02:40 Assessment/Plan Assessment/Plan Septic shock with colitis - with possible ischemic colitis -Surgery is following -Plan is for surgery today -IVF currently at 150 -Vanco/zosyn Acute renal failure-- improving BRETT HOPKINS DO April 03, 2020 06:23
--- NOTE | 2020-04-03 08:41 | Physical Therapy Progress Note ---
Therapy Progress Note Patient is scheduled to have abdominal surgery today. Patient refused therapy, refused LE exercises in bed, stating "im not going to do exercises or any therapy today". NICOLE ESCUDERO PT April 03, 2020 08:41
[2020-04-03] MEDS: PANTOPRAZOLE 40 MG (PROTONIX) VIAL IV SCH ×2 (08:51→20:27)
[2020-04-03] MEDS: PROMETHAZINE INJ 25 MG/ML (PHENERGAN) AMP IV PRN (08:52)
--- NOTE | 2020-04-03 09:04 | Diagnostic Imaging Report ---
INDICATION: Septic shock and colitis with acute renal failure. Comparison made with prior examination from 04/02/2020. FINDINGS: There is cardiomegaly, some venous congestion. There are patchy bibasal infiltrates. There is no pleural fusion or pneumothorax. Lines and tubes are in satisfactory position. 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 Pacemaker overlies left hemithorax. IMPRESSION: Patchy bibasal atelectasis and/or pneumonitis. Cardiomegaly and mild central pulmonary venous congestion. Dictated by: Dictated on workstation # [id number]
--- NOTE | 2020-04-03 09:33 | Progress Note - Hospitalist ---
Subjective HPI/CC On Admission Date Seen by Provider: April 03, 2020 Time Seen by Provider: 09:15 Chief complaint: Abdominal pain with severe sepsis ICU admission consulted for medical management History of present illness: This is an 84-year-old white male with a history of multiple vascular procedures and vascular conditions who presents to the emergency room with abdominal pain found to have severe sepsis requiring ICU admission. 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 Patient was placed on heparin full dose drip in addition broad-spectrum antibiotics initiated for coverage of bacterial colitis. Currently patient is doing a little better he reports the pain comes and goes and he is in guarded prognosis at this current time. NG tube is in place. Check meds and labs. Conferred with RN. Subjective/Events-last exam Pt going to surgery today Spoke with Dr. Henderson Overall prognosis remains guarded Continues to have abdominal pain Overall is appearing to be impending status at advanced age of 84 his prognosis remains guarded. NG tube remains Review of Systems General: Fatigue Gastrointestinal: Abdominal Pain Focused Exam Time of Focused Exam: 21:55 Objective Exam Vital Signs Vital Signs Date Time Temp Pulse Resp B/P (MAP) Pulse Ox O2 Delivery O2 Flow Rate FiO2 04/03/20 19:31 37.0 04/03/20 18:00 75 14 138/53 (81) 90 Nasal Cannula 2.00 Capillary Refill : Less Than 3 Seconds General Appearance: WD/WN, Chronically ill, Mild Distress Respiratory: Chest Non Tender, Lungs Clear, No Accessory Muscle Use, No Respiratory Distress, Decreased Breath Sounds Cardiovascular: Regular Rate, Rhythm, No Edema, No Gallop, No JVD, No Murmur, Normal Peripheral Pulses Neurologic/Psychiatric: Alert, Disoriented Results/Procedures Lab Laboratory Tests 04/03/20 02:40 Patient resulted labs reviewed. Assessment/Plan Assessment and Plan Assess & Plan/Chief Complaint Assessment: Severe sepsis requiring ICU status Ischemic colitis Advanced age Leukocytosis ARF Plan: ICU Abx Heparin stopped OR today Diagnosis/Problems Diagnosis/Problems (1) Sepsis Status: Resolved (2) Renal insufficiency Status: Resolved (3) Nausea and vomiting Status: Resolved (4) Ischemic bowel disease Status: Acute (5) Acute renal failure Status: Acute (6) Hypoxia Status: Acute Clinical Quality Measures DVT/VTE Risk/Contraindication: Risk Factor Score Per Nursin RFS Level Per Nursing on Admit: 4+=Very High AGATHA PAZ DO April 03, 2020 09:33
--- NOTE | 2020-04-03 10:28 | Progress Note - Surgery ---
Subjective Date Seen by a Provider: April 03, 2020 Time Seen by a Provider: 10:25 Subjective/Events-last exam Patient still with significant right pain with palpation. Laying still no pain. No new complaints. Ng tube in place. Denies n/v fever sweats chills shortness of breath or chest pain. Heparin on hold. Focused Exam Time of Focused Exam: 21:55 Objective Exam Vital Signs Date Time Temp Pulse Resp B/P (MAP) Pulse Ox O2 Delivery O2 Flow Rate FiO2 04/03/20 10:00 73 19 153/67 (95) 97 Nasal Cannula 2.00 04/03/20 09:00 74 18 149/66 (93) 96 Nasal Cannula 2.00 04/03/20 08:00 36.6 04/03/20 08:00 70 23 138/57 (84) 97 Nasal Cannula 2.00 04/03/20 07:05 70 04/03/20 07:00 70 17 138/57 (84) 96 Nasal Cannula 2.00 04/03/20 06:00 70 19 146/58 (87) 97 Nasal Cannula 2.00 04/03/20 05:00 70 18 144/58 (86) 96 Nasal Cannula 2.00 04/03/20 04:18 36.9 04/03/20 04:00 70 20 145/99 (114) 94 Nasal Cannula 2.00 04/03/20 03:50 96 Nasal Cannula 2.00 04/03/20 03:50 36.9 Nasal Cannula 2.00 04/03/20 02:00 70 19 133/52 (79) 95 Nasal Cannula 2.00 04/03/20 01:00 70 26 147/60 (89) 93 Nasal Cannula 2.00 04/03/20 01:00 70 04/03/20 00:24 37.0 04/03/20 00:00 70 19 139/57 (84) 94 Nasal Cannula 2.00 04/02/20 23:40 94 Nasal Cannula 2.00 04/02/20 23:40 37.1 Nasal Cannula 2.00 04/02/20 23:00 70 18 139/62 (87) 96 Nasal Cannula 2.00 04/02/20 22:00 70 18 131/60 (83) 96 Nasal Cannula 2.00 04/02/20 21:00 70 17 132/53 (79) 97 Nasal Cannula 2.00 04/02/20 20:00 70 17 118/46 (70) 96 Nasal Cannula 2.00 04/02/20 19:45 95 Nasal Cannula 2.00 04/02/20 19:00 70 04/02/20 19:00 36.8 Nasal Cannula 2.00 04/02/20 19:00 70 16 127/58 (81) 94 Nasal Cannula 2.00 04/02/20 18:00 70 17 130/62 (84) 93 Nasal Cannula 2.00 04/02/20 17:00 70 27 142/66 (91) 93 Nasal Cannula 2.00 04/02/20 16:55 97 Nasal Cannula 2.00 04/02/20 16:00 70 17 140/55 (83) 93 Nasal Cannula 2.00 04/02/20 15:41 36.8 04/02/20 15:00 70 11 146/62 (90) 93 Nasal Cannula 2.00 04/02/20 14:00 70 20 135/63 (87) 97 Nasal Cannula 2.00 04/02/20 13:00 70 04/02/20 13:00 70 27 143/54 (83) 96 Nasal Cannula 2.00 04/02/20 12:15 97 Nasal Cannula 2.00 04/02/20 12:07 36.8 I & O 04/03/20 07:00 Intake Total 1240 ml Output Total 1530 ml Balance -290 ml Capillary Refill : Less Than 3 Seconds General Appearance: WD/WN, Chronically ill, Mild Distress HEENT: PERRL/EOMI, Normal ENT Inspection, Other (oropharynx dry) Neck: Normal Inspection Respiratory: Chest Non Tender, No Accessory Muscle Use, No Respiratory Distress Cardiovascular: Regular Rate, Rhythm Peripheral Pulses: 0 Carotid (R), 0 Carotid (L), 0 Femoral (R), 0 Femoral (L), 0 Dorsalis Pedis (R), 0 Left Dors-Pedis (L), 0 Radial Pulses (R), 0 Radial Pulses (L); 2+ Radial Pulses (L) Gastrointestinal: soft, tenderness (significant pain right side of abdomen still present with palpation) Extremity: Normal Inspection, No Pedal Edema, Other (right BKA) Neurologic/Psychiatric: Alert, Oriented x3, No Motor/Sensory Deficits, Normal Mood/Affect Skin: Normal Color, Warm/Dry Lymphatic: No Adenopathy Results Lab Laboratory Tests 04/02/20 11:44: Glucometer 176H 04/02/20 15:47: Glucometer 180H 04/02/20 18:30: Activated Partial Thromboplast Time 85H 04/02/20 19:26: Glucometer 169H 04/02/20 23:42: Glucometer 180H 04/03/20 00:00: Glucometer 201H 04/03/20 02:40: White Blood Count 6.2, Red Blood Count 3.33L, Hemoglobin 9.8L, Hematocrit 31L, Mean Corpuscular Volume 92, Mean Corpuscular Hemoglobin 29, Mean Corpuscular Hemoglobin Concent 32, Red Cell Distribution Width 14.0, Platelet Count 155, Mean Platelet Volume 9.7, Neutrophils (%) (Auto) 78H, Lymphocytes (%) (Auto) 11L , Monocytes (%) (Auto) 9, Eosinophils (%) (Auto) 2, Basophils (%) (Auto) 0, Neutrophils # (Auto) 4.9, Lymphocytes # (Auto) 0.7L, Monocytes # (Auto) 0.6, Eosinophils # (Auto) 0.1, Basophils # (Auto) 0.0, Activated Partial Thromboplast Time 39H, Sodium Level 141, Potassium Level 3.8, Chloride Level 110H, Carbon Dioxide Level 21, Anion Gap 10, Blood Urea Nitrogen 23H, Creatinine 1.30, Estimat Glomerular Filtration Rate 52, BUN/Creatinine Ratio 18, Glucose Level 179H, Calcium Level 8.0L, Corrected Calcium 9.1, Phosphorus Level 2.2L, Magnesium Level 2.0, Total Bilirubin 1.0, Aspartate Amino Transf (AST/SGOT) 15, Alanine Aminotransferase (ALT/SGPT) 15, Alkaline Phosphatase 58, Total Protein 5.1L, Albumin 2.6L 04/03/20 04:02: Glucometer 194H 04/03/20 07:44: Glucometer 159H Microbiology 03/30/20 Urine Culture - Final, Complete NO GROWTH 03/30/20 Blood Culture - Preliminary, Resulted No growth 03/30/20 MRSA Screen - Final, Complete MRSA not isolated Assessment/Plan Assessment/Plan Assessment/Plan abdominal pain, right side ischemic colitis sepsis wbc down and abdominal pain extremely tender right side still has history of ischemic bowel which concern that he may have some ischemic bowel at this time will continue to monitor in icu at this time. heparin drip held Plan on diagnostic laparoscopy possible open exploration with possible colectomy all other indicated procedures. Feel he may have portion of bowel that is ischemic due to his significant pain in right side of abdomen on exam. Patient agrees with plan. Consent NPO To OR today Clinical Quality Measures DVT/VTE Risk/Contraindication: Risk Factor Score Per Nursin RFS Level Per Nursing on Admit: 4+=Very High NEHAL GREENBERG DO April 03, 2020 10:28
--- NOTE | 2020-04-03 11:34 | Occ Therapy Progress Note ---
Therapy Progress Note Attempted OT treatment at 1050. Pt resting in bed, states he is not going to participate in therapy today as he is scheduled to go for surgery. Will continue to follow. 1, visit DULCE MARIA HERNANDEZ OT April 03, 2020 11:34
[2020-04-03] MEDS ORDERED: BUP/EPI 0.5% 1:200,000 (SENSORCAINE) 30 ML VIAL ONE (11:43)
[2020-04-03] MEDS ORDERED: ROCURONIUM 10 MG/ML 5 ML SYRINGE IV ONE (11:56)
[2020-04-03] MEDS ORDERED: LIDOCAINE PF 2% 5 ML (XYLOCAINE) VIAL ONE (11:56)
[2020-04-03] MEDS ORDERED: SUCCINYLCHOLINE INJ 100 MG/5 ML SYR ONE (11:56)
[2020-04-03] MEDS ORDERED: proPOfol 200 MG/20 ML (DIPRIVAN) VIAL IV ONE (11:56)
[2020-04-03] MEDS ORDERED: SEVOFLURANE (ULTANE) 15 ML INHAL SOLN ONE ×5 (11:56→14:16)
[2020-04-03] MEDS ORDERED: fentaNYL INJECTION 100 MCG/2 ML AMP ONE (11:57)
[2020-04-03] MEDS: LACTATED RINGERS 1,000 ML IV PRN ×2 (12:25→14:00)
--- NOTE | 2020-04-03 13:06 | NUR ---
CM/SS follow up. The patient will be getting a laparotomy today 04/03. He stated that he did not want to talk about any discharge plans or therapy until after the surgery. The patient however did state that his pain was improved from yesterday. CM/SS went back over the different options for therapy for when he is done with surgery. He responded with "well, I will need to see what I can even do before talking about it". CM/SS stated that this ss will be back to discuss options further. He verbalized understanding. IRF is still following patient for possible discharge plan. If he does not meet criteria a skilled placement will be the next option. CM/SS will discuss this further after patients surgery.
[2020-04-03] MEDS ORDERED: DEXAMETHASONE 10 MG/ML (DECADRON) 1 ML VIAL ONE (14:16)
[2020-04-03] MEDS ORDERED: ONDANSETRON 4 MG/2 ML (SDV) Z0FRAN ONE (14:16)
[2020-04-03] MEDS ORDERED: BUPIVACAINE 0.5% 30 ML (SENSORCAINE) VIAL ONE (14:16)
[2020-04-03] MEDS ORDERED: NEOSTIGMINE 3 MG/3 ML VIAL ONE (14:17)
[2020-04-03] MEDS ORDERED: GLYCOPYRROLATE 0.2 MG/ML (ROBINUL) 2 ML VIAL ONE (14:17)
[2020-04-03] MEDS ORDERED: ISOFLURANE (FORANE) 15 ML/15 MIN INHALATION ONE (14:21)
[2020-04-03] MEDS ORDERED: DESFLURANE (SUPRANE) 15 ML INHAL SOLN ONE (14:21)
[2020-04-03] MEDS ORDERED: LACTATED RINGERS 1,000 ML IV PRN (14:25)
[2020-04-03] MEDS ORDERED: morphine INJ 10 MG/ML 1ML (SYR OR VIAL) ONE (14:49)
[2020-04-03] MEDS ORDERED: morphine INJ 10 MG/ML 1ML (SYR OR VIAL) IVP ONE (15:15)
[2020-04-03] MEDS ORDERED: ONDANSETRON 4 MG/2 ML (SDV) Z0FRAN IVP PRN (15:15)
--- NOTE | 2020-04-03 19:50 | Progress Note-Post Operative ---
Post-Operative Progess Note Surgeon (s)/[employer] Coach (s) Surgeon NEHAL GREENBERG DO [employer] Football Coach: Dr. Lemons Pre-Operative Diagnosis right sided abdominal pain suspect ischemic bowel Post-Operative Diagnosis ischemic colon Procedure & Operative Findings Date of Procedure 04/03/20 Procedure Performed/Findings diagnostic lap converted to open, partial colectomy Anesthesia Type gen Estimated Blood Loss Estimated blood loss (mL): min Specimens/Packing Specimens Removed colon hepatic flexure and transverse NEHAL GREENBERG DO April 03, 2020 19:50
--- NOTE | 2020-04-03 21:23 | OPERATIVE REPORT ---
DATE OF SERVICE: 04/03/2020 PREOPERATIVE DIAGNOSIS: Right-sided abdominal pain, suspect ischemic bowel. POSTOPERATIVE DIAGNOSIS: Ischemic colon. SURGEON: Nehal Henderson DO [employer] OPERATOR: Dr. Lemons, assisted in retraction, dissection and closure. PROCEDURE: Diagnostic laparoscopy converted to open partial colectomy. ANESTHESIA: General. ESTIMATED BLOOD LOSS: Minimal. COMPLICATIONS: None. INDICATIONS: The patient is an 84-year-old male, who presented to the hospital with significant abdominal pain, on CT scan, questionable ischemic colitis. He was treated with antibiotics and conservative measures. The patient's white count improved. The patient persisted having right lower quadrant abdominal pain. He is on a heparin drip; therefore, that was held and the patient wished to proceed with diagnostic laparoscopy and all other indicated procedures. DESCRIPTION OF PROCEDURE: The patient was taken to the operating suite. He was prepped and draped in sterile fashion. Timeout was performed in the left upper quadrant. Local anesthetic was infiltrated. An 11-blade scalpel was used to make a small skin incision and cautery was used to dissect down through the subcutaneous tissue, the fascia, muscle and posterior fascia until entered. A 12 mm trocar was inserted and pneumoperitoneum was achieved through the midline. A 5 mm incision was made and under direct visualization with laparoscope, the 5 mm trocar was placed. Significant inflammatory changes around the pelvic flexure with a grasper. The phlegmon that was adherent to the anterior abdominal wall was then bluntly taken down, revealing a significant area of ischemic colon. At this time, it was decided to go ahead and convert to an open procedure. A midline incision was made and the small bowel of the previous anastomosis was divided around and a MARCO A stapler was fired across dividing this. The transverse colon was then brought out through the incision as well and a hemostat was used to dissect around the transverse colon and a MARCO A stapler was fired across the transverse colon. At this time, the colon was then continued to be mobilized from previous adhesions and also from the inflammatory process, that was present until the LigaSure was then able to use to divide the mesentery. The (small bowel), the abdomen was then irrigated with copious amounts of irrigation and the small bowel was brought up to the transverse colon and a [id number] anastomosis was created using a MARCO A 75 blue stapler. The abdomen was irrigated with copious amounts of irrigation and suctioned. Hemostasis was achieved. No other pathology noted. The 12 mm trocar site fascia was then closed. The midline incision was closed using 1-0 looped PDS and the skin was then closed with luis. The patient tolerated procedure well without any complications. He was taken to the recovery room in stable condition. Job ID: [id number] DocumentID: [id number] Dictated Date: 04/03/2020 19:50:17 Egg Pasteurizer Date: 04/03/2020 21:21:55 Dictated By: NEHAL HENDERSON DO
[2020-04-04] VITALS (18 sets, daily range): BP systolic 120–193; BP diastolic 49–87
[2020-04-04] MEDS: inSUlin ASPART (NovoLOG) 1 UNIT/0.01 ML (CHARGE PER UNIT) SC SCH ×6 (00:29→20:10)
[2020-04-04] MEDS: PIPERACILLIN/TAZOBACTAM (BULK) 4.5 GM in NS (IVPB) 100 ML IV SCH ×3 (01:32→17:24)
[2020-04-04] MEDS: morphine INJ 4 MG/ML 1 ML (VIAL/SYRINGE) IV PRN ×4 (02:10→20:10)
[2020-04-04 03:31] LABS: BASOPHILS % (AUTO) 0 % (0-10); EOSINOPHILS % (AUTO) 0 % (0-10); HEMATOCRIT 33 % (40-54); HEMOGLOBIN 10.5 G/DL (13.3-17.7); LYMPHOCYTES # (AUTO) 0.5 X 10^3 (1.0-4.0); LYMPHOCYTES % (AUTO) 5 % (12-44); MEAN CORPUSCULAR HEMOGLOBIN 29 PG (25-34); MEAN CORPUSCULAR HGB CONC 32 G/DL (32-36); MEAN CORPUSCULAR VOLUME 92 FL (80-99); MEAN PLATELET VOLUME 9.7 FL (7.4-10.4); MONOCYTES # (AUTO) 0.4 X 10^3 (0.0-1.0); MONOCYTES % (AUTO) 4 % (0-12); NEUTROPHILS # (AUTO) 8.9 X 10^3 (1.8-7.8); NEUTROPHILS % (AUTO) 91 % (42-75); PLATELET COUNT 190 10^3/uL (130-400); RED CELL DISTRIBUTION WIDTH 13.9 % (10.0-14.5); WHITE BLOOD COUNT 9.8 10^3/uL (4.3-11.0)
[2020-04-04] MEDS: NOREPINEPHRINE 4 MG/250 ML 250 ML IV SCH ×2 (03:45→10:52)
[2020-04-04] MEDS: NS IV 1000 ML 1,000 ML IV SCH ×4 (03:52→20:13)
[2020-04-04 03:56] LABS: ALBUMIN 2.5 GM/DL (3.2-4.5); BILIRUBIN,TOTAL 1.4 MG/DL (0.1-1.0); CALCIUM 7.9 MG/DL (8.5-10.1); CREATININE SERUM 1.29 MG/DL (0.60-1.30); LYMPHOCYTES % (MANUAL) 9 %; MONOCYTES % (MANUAL) 2 %; NEUTROPHILS % (MANUAL) 89 %; POTASSIUM 4.2 MMOL/L (3.6-5.0)
[2020-04-04] MEDS: VASOPRESSIN INJECTION 20 UNIT in NORMAL SALINE 100 ML IV SCH (04:09)
[2020-04-04] MEDS: POTASSIUM CL 10MEQ/50ML IVPB 50 ML IV SCH (04:10)
[2020-04-04] MEDS: KCL 20 MEQ TAB (K-DUR) PO SCH (04:10)
[2020-04-04] MEDS: MAGNESIUM 1 GM/100 ML IVPB 100 ML IV SCH (04:10)
--- NOTE | 2020-04-04 05:09 | Pulmonary Progress Note ---
Subjective Time Seen by a Provider: 05:09 Subjective/Events-last exam Pt appears to be doing better. Sepsis Event Evaluation Height, Weight, BMI Height: 5'9.00" Weight: 226lbs. 9.6oz. 102.364292fp; 31.78 BMI Method:Stated Focused Exam Time of Focused Exam: 21:55 Exam Exam Vital Signs Date Time Temp Pulse Resp B/P (MAP) Pulse Ox O2 Delivery O2 Flow Rate FiO2 04/04/20 03:47 Nasal Cannula 2.00 04/04/20 03:00 70 9 147/58 (87) 100 Nasal Cannula 2.00 04/04/20 02:00 70 19 155/60 (91) 100 Nasal Cannula 2.00 04/04/20 01:00 70 16 140/49 (79) 100 Nasal Cannula 4.00 04/04/20 01:00 70 04/04/20 00:00 70 11 151/64 (93) 100 Nasal Cannula 4.00 04/04/20 00:00 Nasal Cannula 4.00 04/03/20 23:00 74 16 155/81 (105) 100 Nasal Cannula 4.00 04/03/20 22:00 70 15 135/67 (89) 100 Nasal Cannula 4.00 04/03/20 21:00 74 16 143/59 (87) 100 Nasal Cannula 4.00 04/03/20 20:00 70 15 141/53 (82) 94 Nasal Cannula 4.00 04/03/20 20:00 Nasal Cannula 4.00 04/03/20 19:31 37.0 04/03/20 19:00 70 14 135/50 (78) 94 Nasal Cannula 4.00 04/03/20 19:00 70 04/03/20 18:00 75 14 138/53 (81) 90 Nasal Cannula 2.00 04/03/20 17:00 70 16 129/39 (69) 90 Nasal Cannula 2.00 04/03/20 16:00 94 Nasal Cannula 4.00 04/03/20 16:00 70 13 138/51 (80) 97 Nasal Cannula 2.00 04/03/20 15:55 37.2 04/03/20 15:50 Nasal Cannula 3 04/03/20 15:40 36.7 18 137/46 (76) 95 Nasal Cannula 3 04/03/20 15:30 17 149/50 (83) 98 OxyMask 10 04/03/20 15:20 20 147/61 (89) 98 OxyMask 10 04/03/20 15:20 OxyMask 10 04/03/20 15:10 21 148/77 (100) 98 OxyMask 10 04/03/20 15:00 27 193/71 (111) 100 OxyMask 10 04/03/20 14:50 OxyMask 10 04/03/20 14:50 36.3 14 185/80 (115) 96 OxyMask 10 04/03/20 13:41 Nasal Cannula 2.00 04/03/20 13:00 71 24 98 Nasal Cannula 2.00 04/03/20 12:14 36.0 04/03/20 12:00 97 Nasal Cannula 2.00 04/03/20 12:00 70 25 186/72 (110) 96 Nasal Cannula 2.00 04/03/20 11:00 72 19 168/80 (109) 97 Nasal Cannula 2.00 04/03/20 10:00 73 19 153/67 (95) 97 Nasal Cannula 2.00 04/03/20 09:00 74 18 149/66 (93) 96 Nasal Cannula 2.00 04/03/20 08:00 95 Nasal Cannula 2.00 04/03/20 08:00 36.6 04/03/20 08:00 70 23 138/57 (84) 97 Nasal Cannula 2.00 04/03/20 07:05 70 04/03/20 07:00 70 17 138/57 (84) 96 Nasal Cannula 2.00 04/03/20 06:00 70 19 146/58 (87) 97 Nasal Cannula 2.00 I & O 04/04/20 07:00 Intake Total 2120 ml Output Total 1700 ml Balance 420 ml Height & Weight Height: 5'9.00" Weight: 226lbs. 9.6oz. 102.629457aq; 31.78 BMI Method:Stated General Appearance: No Apparent Distress, WD/WN, Chronically ill HEENT: PERRL/EOMI, Normal ENT Inspection, Other (oropharynx dry) Neck: Normal Inspection Respiratory: Chest Non Tender, Lungs Clear, No Accessory Muscle Use, No Respiratory Distress, Decreased Breath Sounds Cardiovascular: Regular Rate, Rhythm, No Edema, No Gallop, No JVD, No Murmur, Normal Peripheral Pulses Capillary Refill: Less Than 3 Seconds Peripheral Pulses: 0 Carotid (R), 0 Carotid (L), 0 Femoral (R), 0 Femoral (L), 0 Dorsalis Pedis (R), 0 Left Dors-Pedis (L), 0 Radial Pulses (R), 0 Radial Pulses (L); 2+ Radial Pulses (L) Gastrointestinal: soft, tenderness (significant pain right side of abdomen still present with palpation) Extremity: Normal Inspection, No Pedal Edema, Other (right BKA) Neurologic/Psychiatric: Alert, Disoriented Skin: Normal Color, Warm/Dry Lymphatic: No Adenopathy Results Lab Laboratory Tests 04/03/20 02:40 04/04/20 03:24 Assessment/Plan Assessment/Plan Septic shock with colitis - with possible ischemic colitis -s/p resection -Plan is for surgery today -[facility] Acute renal failure-- improving BRETT HOPKINS DO April 04, 2020 05:09
[2020-04-04] MEDS: PANTOPRAZOLE 40 MG (PROTONIX) VIAL IV SCH ×2 (08:27→20:09)
--- NOTE | 2020-04-04 08:28 | Diagnostic Imaging Report ---
Portable erect AP chest at 324 hours. INDICATION: Septic shock, colitis. FINDINGS: The cardiomegaly, the sternal wires and surgical clips and a left-sided pacemaker seen on the prior exam of 04/03/2020 are again evident and not significantly changed. The central pulmonary vasculature is somewhat prominent and there may be an element of mild pulmonary congestion present. The prior study did suggest patchy bibasilar atelectasis and/or pneumonitis. On this study, there are areas of increased density in the right lower lobe and right midlung. I suspect that these are related to worsening pneumonia/atelectasis. The amount of fluid in the right lung base is also slightly greater than on the prior exam. The left lung base is essentially no different. The mediastinum is not widened. The osseous structures are intact. The supportive tubes and lines remain unchanged in position. IMPRESSION: The appearance of the chest has worsened somewhat since the prior exam as there does appear to be slightly greater involvement of the right mid lung and right lung base by pneumonia/atelectasis. The amount of fluid in the right lung base has also increased. A followup study would be recommended for continued evaluation. Dictated by: Dictated on workstation # [id number]
--- NOTE | 2020-04-04 09:26 | Occ Therapy Progress Note ---
Therapy Progress Note Pt stated that he doesn't want to do any therapy until he is ready to move. Saying that he isn't ready yet, but wants to work when he is ready. Will check on pt at later time. RADHA UBTCHER April 04, 2020 09:26
--- NOTE | 2020-04-04 09:37 | Progress Note - Hospitalist ---
Subjective HPI/CC On Admission Date Seen by Provider: April 04, 2020 Time Seen by Provider: 09:40 Chief complaint: Abdominal pain with severe sepsis ICU admission consulted for medical management History of present illness: This is an 84-year-old white male with a history of multiple vascular procedures and vascular conditions who presents to the emergency room with abdominal pain found to have severe sepsis requiring ICU admission. 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 Patient was placed on heparin full dose drip in addition broad-spectrum antibiotics initiated for coverage of bacterial colitis. Currently patient is doing a little better he reports the pain comes and goes and he is in guarded prognosis at this current time. NG tube is in place. Check meds and labs. Conferred with RN. Subjective/Events-last exam Pt likely going to go to the fourth floor today Partial resection yesterday by Dr. Henderson seems to have benefited the Pt Increased bowel sounds noted but still post-op ileus issue Pt very well may be a long term candidate vs. inpatient rehab Review of Systems General: Fatigue Gastrointestinal: Abdominal Pain Focused Exam Time of Focused Exam: 21:55 Objective Exam Vital Signs Vital Signs Date Time Temp Pulse Resp B/P (MAP) Pulse Ox O2 Delivery O2 Flow Rate FiO2 04/05/20 03:52 36.4 73 20 160/60 (93) 95 Nasal Cannula 1.50 Capillary Refill : Less Than 3 Seconds General Appearance: No Apparent Distress, WD/WN, Chronically ill Respiratory: Chest Non Tender, Lungs Clear, Normal Breath Sounds, No Accessory Muscle Use, No Respiratory Distress Cardiovascular: Regular Rate, Rhythm, No Edema, No Gallop, No JVD, No Murmur, Normal Peripheral Pulses Neurologic/Psychiatric: Alert, Oriented x3, No Motor/Sensory Deficits, Normal Mood/Affect Results/Procedures Lab Laboratory Tests 04/05/20 05:00 Patient resulted labs reviewed. Assessment/Plan Assessment and Plan Assess & Plan/Chief Complaint Assessment: Severe sepsis requiring ICU status now moving to 4th floor Ischemic colitis s/p resection POD # 1 Advanced age Leukocytosis ARF Plan: ICU move to 4th Abx Heparin stopped Diagnosis/Problems Diagnosis/Problems (1) Sepsis Status: Resolved (2) Renal insufficiency Status: Resolved (3) Nausea and vomiting Status: Resolved (4) Ischemic bowel disease Status: Acute (5) Acute renal failure Status: Acute (6) Hypoxia Status: Acute Clinical Quality Measures DVT/VTE Risk/Contraindication: Risk Factor Score Per Nursin RFS Level Per Nursing on Admit: 4+=Very High AGATHA PAZ DO April 04, 2020 09:37
--- NOTE | 2020-04-04 09:56 | Physical Therapy Daily Note ---
PT Daily Note-Current Subjective Patient adamantly declined sitting EOB or repositioning in bed due to 10/10 abdominal pain. PT attempted to educate patient on importance of OOB activity, however, patient continued to decline. Reluctantly agrees to left LE exercise. Pain Numeric Pain Scale: 10-Worst Possible Pain Location: Medial, Lower Location Body Site: Abdomen Pain Description: Acute Mental Status Patient Orientation: Normal For Age Attachments: NG Tube, Oxygen, Clark Catheter, IV Transfers SCALE: Activities may be completed with or without assistive devices. 5-Lyqyqvkhmp-etzifld completes the activity by him/herself with no assistance from a helper. 5-Set-up or Clean-up Assistance-helper sets up or cleans up; patient completes activity. [place] assists only prior to or following the activity. 4-Supervision or Touching Assistance-helper provides verbal cues and/or touching/steadying and/or contact guard assistance as patient completes activity. Assistance may be provided throughout the activity or intermittently. 3-Partial/Moderate Assistance-helper does LESS THAN HALF the effort. [place] lifts, holds or supports trunk or limbs, but provides less than half the effort. 2-Substantial/Maximal Assistance-helper does MORE THAN HALF the effort. [place] lifts or holds trunk or limbs and provides more than half the effort. 2-Jumpunlah-hnuejr does ALL the effort. Patient does none of the effort to complete the activity. Or, the assistance of 2 or more helpers is required for the patient to complete the activity. If activity was not attempted, code reason: 7-Patient Refused. 9-Not Applicable-not attempted and the patient did not perform the activity before the current illness, exacerbation or injury. 10-Not Attempted due to Environmental Limitations-(lack of equipment, weather restraints, etc.). 88-Not Attempted due to Medical Conditions or Safety Concerns. Weight Bearing Right Lower Extremity: Right Weight Bearing/Tolerated Left Lower Extremity: Left Weight Bearing/Tolerated hx of rbka Exercises Supine Ex: Ankle pumps, Quad Set, Heel Slides, Straight leg raise, Hip abd/add Supine Reps: 12 (AAROM with elevating left LE with pillow to relieve heel press ure.) Assessment Patient is highly agitated throughout treatment and ceased treatment due to abdominal discomfort. RN notified. PT Skilled Nursing Goals Skilled Nursing Goals PT Skilled Nursing Goals Time Frame: April 13, 2020 Roll Left & Right (QC): 4 Sit to Lying (QC): 4 Lying-Sitting on Side/Bed(QC): 4 Sit to Stand (QC): 4 Does the Patient Walk: No and Walking Goal IS indicated Walk 10 feet (QC): 4 PT Plan Treatment/Plan Treatment Plan: Continue Plan of Care Treatment Plan: Bed Mobility, Concurrent Therapy, Education, Functional Activity [place], Functional Strength, Gait, Safety, Therapeutic Exercise, Transfers Treatment Duration: April 13, 2020 Frequency: 6 times per week Estimated Hrs Per Day: .25 hour per day Time/GCodes Time In: 830 Time Out: 838 Total Billed Treatment Time: 8 Total Billed Treatment 1 visit EX 8 min DHARMESH PAYNE PT April 04, 2020 09:56
--- NOTE | 2020-04-04 11:15 | NUR ---
Pastoral care visit.
[2020-04-04] MEDS ORDERED: meTOprolol 5 MG/5 ML (LOPRESSOR) VIAL IV ONE (11:45)
--- NOTE | 2020-04-04 13:37 | Progress Note - Surgery ---
Subjective Date Seen by a Provider: April 04, 2020 Time Seen by a Provider: 13:34 Subjective/Events-last exam Pain much better. NG tube. No flatus or bm. Denies n/v fever sweats chills shortness of breath or chest pain. Focused Exam Time of Focused Exam: 21:55 Objective Exam Vital Signs Date Time Temp Pulse Resp B/P (MAP) Pulse Ox O2 Delivery O2 Flow Rate FiO2 04/04/20 13:00 74 15 193/74 (113) 98 Nasal Cannula 2.00 04/04/20 12:00 36.2 04/04/20 12:00 Nasal Cannula 2.00 04/04/20 12:00 70 21 188/76 (113) 100 Nasal Cannula 2.00 04/04/20 11:17 Nasal Cannula 2.00 04/04/20 11:00 70 31 178/71 (106) 100 Nasal Cannula 2.00 04/04/20 10:00 70 24 175/61 (99) 100 Nasal Cannula 2.00 04/04/20 09:00 73 22 170/61 (97) 97 Nasal Cannula 2.00 04/04/20 08:00 Nasal Cannula 2.00 04/04/20 08:00 36.8 04/04/20 08:00 70 17 174/63 (100) 100 Nasal Cannula 2.00 04/04/20 07:00 70 15 167/63 (97) 99 Nasal Cannula 2.00 04/04/20 06:49 70 04/04/20 06:00 70 18 156/53 (87) 97 Nasal Cannula 2.00 04/04/20 05:00 70 13 144/65 (91) 100 Nasal Cannula 2.00 04/04/20 04:00 70 16 141/55 (83) 93 Nasal Cannula 2.00 04/04/20 03:47 Nasal Cannula 2.00 04/04/20 03:00 70 9 147/58 (87) 100 Nasal Cannula 2.00 04/04/20 02:00 70 19 155/60 (91) 100 Nasal Cannula 2.00 04/04/20 01:00 70 16 140/49 (79) 100 Nasal Cannula 4.00 04/04/20 01:00 70 04/04/20 00:00 70 11 151/64 (93) 100 Nasal Cannula 4.00 04/04/20 00:00 Nasal Cannula 4.00 04/03/20 23:00 74 16 155/81 (105) 100 Nasal Cannula 4.00 04/03/20 22:00 70 15 135/67 (89) 100 Nasal Cannula 4.00 04/03/20 21:00 74 16 143/59 (87) 100 Nasal Cannula 4.00 04/03/20 20:00 70 15 141/53 (82) 94 Nasal Cannula 4.00 04/03/20 20:00 Nasal Cannula 4.00 04/03/20 19:31 37.0 04/03/20 19:00 70 14 135/50 (78) 94 Nasal Cannula 4.00 04/03/20 19:00 70 04/03/20 18:00 75 14 138/53 (81) 90 Nasal Cannula 2.00 04/03/20 17:00 70 16 129/39 (69) 90 Nasal Cannula 2.00 04/03/20 16:00 94 Nasal Cannula 4.00 04/03/20 16:00 70 13 138/51 (80) 97 Nasal Cannula 2.00 04/03/20 15:55 37.2 04/03/20 15:50 Nasal Cannula 3 04/03/20 15:40 36.7 18 137/46 (76) 95 Nasal Cannula 3 04/03/20 15:30 17 149/50 (83) 98 OxyMask 10 04/03/20 15:20 20 147/61 (89) 98 OxyMask 10 04/03/20 15:20 OxyMask 10 04/03/20 15:10 21 148/77 (100) 98 OxyMask 10 04/03/20 15:00 27 193/71 (111) 100 OxyMask 10 04/03/20 14:50 OxyMask 10 04/03/20 14:50 36.3 14 185/80 (115) 96 OxyMask 10 04/03/20 13:41 Nasal Cannula 2.00 I & O 04/04/20 07:00 Intake Total 2120 ml Output Total 1915 ml Balance 205 ml Capillary Refill : Less Than 3 Seconds General Appearance: No Apparent Distress, WD/WN, Chronically ill HEENT: PERRL/EOMI, Normal ENT Inspection, Other (oropharynx dry) Neck: Normal Inspection Respiratory: Chest Non Tender, No Accessory Muscle Use, No Respiratory Distress , Decreased Breath Sounds Cardiovascular: Regular Rate, Rhythm, No Edema, No Gallop, No JVD, No Murmur, Normal Peripheral Pulses Peripheral Pulses: 0 Carotid (R), 0 Carotid (L), 0 Femoral (R), 0 Femoral (L), 0 Dorsalis Pedis (R), 0 Left Dors-Pedis (L), 0 Radial Pulses (R), 0 Radial Pulses (L); 2+ Radial Pulses (L) Gastrointestinal: soft, tenderness (incisional tenderness no signs of infection) Extremity: Normal Inspection, No Pedal Edema, Other (right BKA) Neurologic/Psychiatric: Alert Skin: Normal Color, Warm/Dry Lymphatic: No Adenopathy Results Lab Laboratory Tests 04/03/20 15:53: Glucometer 203H 04/03/20 19:59: Glucometer 178H 04/03/20 22:52: Glucometer 166H 04/04/20 03:24: White Blood Count 9.8, Red Blood Count 3.59L, Hemoglobin 10.5L, Hematocrit 33L, Mean Corpuscular Volume 92, Mean Corpuscular Hemoglobin 29, Mean Corpuscular Hemoglobin Concent 32, Red Cell Distribution Width 13.9, Platelet Count 190, Mean Platelet Volume 9.7, Neutrophils (%) (Auto) 91H, Lymphocytes (%) (Auto) 5L, Monocytes (%) (Auto) 4, Eosinophils (%) (Auto) 0, Basophils (%) (Auto) 0, Neutrophils # (Auto) 8.9H, Lymphocytes # (Auto) 0.5L, Monocytes # (Auto) 0.4, Eosinophils # (Auto) 0.0, Basophils # (Auto) 0.0, Neutrophils % (Manual) 89, Lymphocytes % (Manual) 9, Monocytes % (Manual) 2, Sodium Level 142, Potassium Level 4.2, Chloride Level 111H, Carbon Dioxide Level 20L, Anion Gap 11, Blood Urea Nitrogen 25H, Creatinine 1.29, Estimat Glomerular Filtration Rate 53, BUN/Creatinine Ratio 19, Glucose Level 191H, Calcium Level 7.9L, Corrected Calcium 9.1, Phosphorus Level 3.0, Magnesium Level 2.0, Total Bilirubin 1.4H, Aspartate Amino Transf (AST/SGOT) 13, Alanine Aminotransferase (ALT/SGPT) 14, Alkaline Phosphatase 52, Total Protein 5.0L, Albumin 2.5L 04/04/20 08:18: Glucometer 176H 04/04/20 11:23: Glucometer 168H Microbiology 03/30/20 Urine Culture - Final, Complete NO GROWTH 03/30/20 Blood Culture - Preliminary, Resulted No growth 03/30/20 MRSA Screen - Final, Complete MRSA not isolated Assessment/Plan Assessment/Plan Assessment/Plan abdominal pain, right side ischemic colon hepatic flexure sepsis s/p diagnostic laparoscopy converted to open with partial colectomy doing well pain controlled IS dc ng tube sips of clears okay to transfer to floor continue abx Clinical Quality Measures DVT/VTE Risk/Contraindication: Risk Factor Score Per Nursin RFS Level Per Nursing on Admit: 4+=Very High NEHAL GREENBERG DO April 04, 2020 13:37
--- NOTE | 2020-04-04 14:00 | NUR ---
PATIENT TO ROOM 421 VIA BED ACCOMPANIED BY [employer] AND PCCT. PATIENT IVF STARTED AND ON 2L NC. PATIENT GIVEN ICE ICE AND DENIES ANY FURTHER NEEDS AT THIS TIME. WILL CONTINUE TO MONITOR.
--- NOTE | 2020-04-04 14:47 | Occ Therapy Progress Note ---
Therapy Progress Note Pt declines therapy at this time stating he just wants to sleep. Encouraged pt to participate in UE ROM, pt continued to decline. RADHA BUTCHER April 04, 2020 14:47
--- NOTE | 2020-04-04 14:58 | Anesthesia-General Post-Op ---
General Patient Condition Mental Status/LOC: Same as Preop Cardiovascular: Satisfactory Nausea/Vomiting: Absent Respiratory: Satisfactory Pain: Controlled Complications: Absent Post Op Complications Complications None Follow Up Care/Instructions Patient Instructions None needed. Anesthesia/Patient Condition Patient Condition Patient is doing well, no complaints, stable vital signs, no apparent adverse anesthesia problems. He is ready to be moved down to the 4th floor. ROHAN PETERS DO April 04, 2020 14:58
[2020-04-05] MEDS: inSUlin ASPART (NovoLOG) 1 UNIT/0.01 ML (CHARGE PER UNIT) SC SCH ×6 (00:20→20:31)
[2020-04-05 03:52] VITALS: BP 160/60
[2020-04-05] MEDS: NS IV 1000 ML 1,000 ML IV SCH (04:02)
[2020-04-05 05:18] LABS: BASOPHILS % (AUTO) 0 % (0-10); EOSINOPHILS # (AUTO) 0.1 10^3/uL (0.0-0.3); EOSINOPHILS % (AUTO) 1 % (0-10); HEMATOCRIT 31 % (40-54); HEMOGLOBIN 10.1 G/DL (13.3-17.7); LYMPHOCYTES % (AUTO) 12 % (12-44); MEAN CORPUSCULAR HEMOGLOBIN 30 PG (25-34); MEAN CORPUSCULAR HGB CONC 32 G/DL (32-36); MEAN CORPUSCULAR VOLUME 92 FL (80-99); MEAN PLATELET VOLUME 9.7 FL (7.4-10.4); MONOCYTES % (AUTO) 11 % (0-12); NEUTROPHILS # (AUTO) 6.7 X 10^3 (1.8-7.8); NEUTROPHILS % (AUTO) 76 % (42-75); PLATELET COUNT 202 10^3/uL (130-400); RED CELL DISTRIBUTION WIDTH 14.4 % (10.0-14.5); WHITE BLOOD COUNT 8.9 10^3/uL (4.3-11.0)
[2020-04-05 05:26] LABS: ALBUMIN 2.4 GM/DL (3.2-4.5); POTASSIUM 3.3 MMOL/L (3.6-5.0)
[2020-04-05 05:27] LABS: CALCIUM 7.6 MG/DL (8.5-10.1)
[2020-04-05 05:29] LABS: TOTAL PROTEIN 4.4 GM/DL (6.4-8.2)
[2020-04-05 05:30] LABS: BILIRUBIN,TOTAL 0.9 MG/DL (0.1-1.0)
[2020-04-05 05:32] LABS: CREATININE SERUM 1.21 MG/DL (0.60-1.30)
--- NOTE | 2020-04-05 06:20 | Pulmonary Progress Note ---
Subjective Date Seen by a Provider: April 05, 2020 Time Seen by a Provider: 06:18 Subjective/Events-last exam No complications noted. Sepsis Event Evaluation Height, Weight, BMI Height: 5'9.00" Weight: 226lbs. 9.6oz. 102.312145oq; 31.78 BMI Method:Stated Focused Exam Time of Focused Exam: 21:55 Exam Exam Vital Signs Date Time Temp Pulse Resp B/P (MAP) Pulse Ox O2 Delivery O2 Flow Rate FiO2 04/05/20 03:52 36.4 73 20 160/60 (93) 95 Nasal Cannula 1.50 04/05/20 01:00 70 04/04/20 23:50 36.4 69 22 143/65 (91) 96 Nasal Cannula 1.50 04/04/20 20:22 35.6 69 20 161/64 (96) 94 Nasal Cannula 1.50 04/04/20 20:10 Nasal Cannula 2.00 04/04/20 19:00 70 04/04/20 16:00 35.1 70 17 187/72 (110) 96 Nasal Cannula 1.50 04/04/20 13:34 97 Room Air 04/04/20 13:30 37.0 103 20 120/87 (98) 94 Nasal Cannula 2.00 04/04/20 13:00 70 04/04/20 13:00 74 15 193/74 (113) 98 Nasal Cannula 2.00 04/04/20 12:00 36.2 04/04/20 12:00 Nasal Cannula 2.00 04/04/20 12:00 70 21 188/76 (113) 100 Nasal Cannula 2.00 04/04/20 11:17 Nasal Cannula 2.00 04/04/20 11:00 70 31 178/71 (106) 100 Nasal Cannula 2.00 04/04/20 10:00 70 24 175/61 (99) 100 Nasal Cannula 2.00 04/04/20 09:00 73 22 170/61 (97) 97 Nasal Cannula 2.00 04/04/20 08:00 Nasal Cannula 2.00 04/04/20 08:00 36.8 04/04/20 08:00 70 17 174/63 (100) 100 Nasal Cannula 2.00 04/04/20 07:00 70 15 167/63 (97) 99 Nasal Cannula 2.00 5/7/20 06:49 70 I & O 04/05/20 07:00 Intake Total 3890 ml Output Total 825 ml Balance 3065 ml Height & Weight Height: 5'9.00" Weight: 226lbs. 9.6oz. 102.173105kl; 31.78 BMI Method:Stated General Appearance: No Apparent Distress, WD/WN, Chronically ill HEENT: PERRL/EOMI, Normal ENT Inspection, Other (oropharynx dry) Neck: Normal Inspection Respiratory: Chest Non Tender, Lungs Clear, Normal Breath Sounds, No Accessory Muscle Use, No Respiratory Distress Cardiovascular: Regular Rate, Rhythm, No Edema, No Gallop, No JVD, No Murmur, Normal Peripheral Pulses Capillary Refill: Less Than 3 Seconds Peripheral Pulses: 0 Carotid (R), 0 Carotid (L), 0 Femoral (R), 0 Femoral (L), 0 Dorsalis Pedis (R), 0 Left Dors-Pedis (L), 0 Radial Pulses (R), 0 Radial Pulses (L); 2+ Radial Pulses (L) Gastrointestinal: soft, tenderness (incisional tenderness no signs of infection) Extremity: Normal Inspection, No Pedal Edema, Other (right BKA) Neurologic/Psychiatric: Alert, Oriented x3, No Motor/Sensory Deficits, Normal Mood/Affect Skin: Normal Color, Warm/Dry Lymphatic: No Adenopathy Results Lab Laboratory Tests 04/04/20 03:24 04/05/20 05:00 Assessment/Plan Assessment/Plan Septic shock with colitis - with possible ischemic colitis -s/p resection -IVF currently at 150 -Vanco/zosyn -- Now d/c'd Atelectasis -Increase activity -IS -SVNs Acute renal failure-- improving Pt is doing much better. I am going to sign off please call with any questions. BRETT HOPKINS DO April 05, 2020 06:20
[2020-04-05] MEDS: morphine INJ 4 MG/ML 1 ML (VIAL/SYRINGE) IV PRN ×4 (06:32→22:27)
[2020-04-05] MEDS: POTASSIUM CL 10MEQ/50ML IVPB 50 ML IV SCH ×4 (06:36→09:51)
[2020-04-05] MEDS: RT-ALBUTEROL/IPRATROPIUM 3 ML (DUONEB) VIAL INH SCH ×4 (07:38→18:22)
[2020-04-05] MEDS: PANTOPRAZOLE 40 MG (PROTONIX) VIAL IV SCH ×2 (07:56→22:27)
[2020-04-05 08:21] VITALS: BP 152/61
--- NOTE | 2020-04-05 09:52 | Physical Therapy Progress Note ---
Therapy Progress Note Patient adamantly refused PT stating, "I will do things when I want to and you can not make me. You people just won't leave me alone." Attempted to educate patient on importance of increasing activity, however, patient became highly agitated with all discussions and education. SW present. 1 ref([id number]) DHARMESH PAYNE PT April 05, 2020 09:52
--- NOTE | 2020-04-05 10:02 | NUR ---
CM/SS follow up. The patient was in bed eating breakfast at the time of visit. He appeared to get agitated easily with this ss today. The patient reports that his pain is better after the surgery but is still sore. CM/SS asked him why he isn't participating in Physical therapy and he reported that they "bother me too much, they pull and prod on me when I'm sore". CM/SS attempted to talk to the patient about the importance of participating with therapy. However, the patient started to get upset. He stated "I'm not going to do it, it's my own body", "I'll only do it when I'm ready", "I'll just go home and do what I always do". Staci the physical therapist was present during this portion of conversation. CM/SS attempted to talk about home safety and the patient possibly needing skilled therapies or higher level of care. He stated "No i wont, I'll only need that if the Dr say's I need that." Patient stated that he did not need it and asked this ss "to get the hell out of his room". He reported that he will start complaining if staff would not leave him alone.
--- NOTE | 2020-04-05 10:53 | Occupational Ther Daily Note ---
OT Current Status-Daily Note Subjective Pt alert, lying in bed. Pt stated that he kicked two staff out this morning. He said he was upset that his coffee and broth got cold. Mental Status/Objective Patient Orientation: Person, Place, Time, Situation ADL-Treatment Therapy Code Descriptions/Definitions Functional [place] Measure: 0=Not Assessed/NA 4=Minimal Assistance 1=Total Assistance 5=Supervision or Setup 2=Maximal Assistance 6=Modified [place] 3=Moderate Assistance 7=Complete IndependenceSCALE: Activities may be completed with or without assistive devices. 9-Ujsafmurwi-mwqdrfk completes the activity by him/herself with no assistance from a helper. 5-Set-up or Clean-up Assistance-helper sets up or cleans up; patient completes activity. [place] assists only prior to or following the activity. 4-Supervision or Touching Assistance-helper provides verbal cues and/or touching/steadying and/or contact guard assistance as patient completes activit y. Assistance may be provided throughout the activity or intermittently. 3-Partial/Moderate Assistance-helper does LESS THAN HALF the effort. [place] lifts, holds or supports trunk or limbs, but provides less than half the effort. 2-Substantial/Maximal Assistance-helper does MORE THAN HALF the effort. [place] lifts or holds trunk or limbs and provides more than half the effort. 4-Byiopruhk-fhoeql does ALL the effort. Patient does none of the effort to complete the activity. Or, the assistance of 2 or more helpers is required for the patient to complete the activity. If activity was not attempted, code reason: 7-Patient Refused. 9-Not Applicable-not attempted and the patient did not perform the activity before the current illness, exacerbation or injury. 10-Not Attempted due to Environmental Limitations-(lack of equipment, weather restraints, etc.). 88-Not Attempted due to Medical Conditions or Safety Concerns. Other Treatment Pt stated that he thought that a fresh cup of broth would taste good and if he could have an extra hospital gown he would try to sit up on the EOB today. Pt stated that he didn't want to barrett getting around though. Pt able to reach and grasp cup then bring to mouth without spillage or tremors. Pt continues to state that his body hurts and does not want to do too much. After therapy, pt lying in bed with call light/phone in reach. All needs met in room. OT Halfway Goals Painter Mirror Goals Time Frame: April 15, 2020 Oral Hygiene (QC): 6 Toileting Hygiene (QC): 6 Shower/Bathe Self (QC): 6 Upper Body Dressing (QC): 6 Lower Body Dressing (QC): 6 On/Off Footwear (QC): 6 Additional Goals: 1-Demonstrate ADL Tasks, 2-Verbalize Understanding, 3- ImproveStrength/[place] 1=Demonstrate adherence to instructed precautions during ADL tasks. 2=Patient will verbalize/demonstrate understanding of assistive devices/modifications for ADL. 3=Patient will improve strength/tolerance for activity to enable patient to perform ADL's. OT Education/Plan Problem List/Assessment Assessment: Decreased Activ Tolerance, Decreased UE Strength, Impaired Self- Care Skills Discharge Recommendations Plan/Recommendations: Continue POC Treatment Plan/Plan of Care Patient would benefit from OT for education, treatment and training to promote independence in ADL's, mobility, safety and/or upper extremity function for ADL's. Plan of Care: ADL Retraining, Caregiver Training, Functional Mobility, UE Funct Exercise/Act Treatment Duration: April 15, 2020 Frequency: 5 times per week Estimated Hrs Per Day: .25 hour per day Agreement: Yes Rehab Potential: Guarded Time/GCodes Start Time: 10:28 Stop Time: 10:40 Total Time Billed (hr/min): 12 Billed Treatment Time 1 visit-FA 1 (12 min) RADHA BUTCHER April 05, 2020 10:53
--- NOTE | 2020-04-05 12:03 | Progress Note - Hospitalist ---
Subjective HPI/CC On Admission Date Seen by Provider: April 05, 2020 Time Seen by Provider: 10:45 Chief complaint: Abdominal pain with severe sepsis ICU admission consulted for medical management History of present illness: This is an 84-year-old white male with a history of multiple vascular procedures and vascular conditions who presents to the emergency room with abdominal pain found to have severe sepsis requiring ICU admission. 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 Patient was placed on heparin full dose drip in addition broad-spectrum antibiotics initiated for coverage of bacterial colitis. Currently patient is doing a little better he reports the pain comes and goes and he is in guarded prognosis at this current time. NG tube is in place. Check meds and labs. Conferred with RN. Subjective/Events-last exam Patient refusing therapy Needs NHP Patient sleeping now RN has no concerns Poor prognosis Habitus gives rise to fall risk Review of Systems General: Fatigue Gastrointestinal: Abdominal Pain Focused Exam Time of Focused Exam: 21:55 Objective Exam Vital Signs Vital Signs Date Time Temp Pulse Resp B/P (MAP) Pulse Ox O2 Delivery O2 Flow Rate FiO2 04/05/20 20:17 36.4 04/05/20 20:00 74 22 171/62 (98) 95 Nasal Cannula 1.50 Capillary Refill : Less Than 3 SecondsLess Than 3 Seconds General Appearance: No Apparent Distress, WD/WN, Chronically ill Respiratory: Lungs Clear Cardiovascular: Regular Rate, Rhythm Results/Procedures Lab Laboratory Tests 04/05/20 05:00 Patient resulted labs reviewed. Assessment/Plan Assessment and Plan Assess & Plan/Chief Complaint Assessment: Severe sepsis requiring ICU status now moved to 4th floor Ischemic colitis s/p resection POD # 2 Advanced age Leukocytosis ARF Plan: PT OT is he agrees to participate Abx Heparin stopped NHP? Diagnosis/Problems Diagnosis/Problems (1) Sepsis Status: Resolved (2) Renal insufficiency Status: Resolved (3) Nausea and vomiting Status: Resolved (4) Ischemic bowel disease Status: Acute (5) Acute renal failure Status: Acute (6) Hypoxia Status: Acute Clinical Quality Measures DVT/VTE Risk/Contraindication: Risk Factor Score Per Nursin RFS Level Per Nursing on Admit: 4+=Very High AGATHA PAZ DO April 05, 2020 12:03
[2020-04-05 12:12] VITALS: BP 143/72
--- NOTE | 2020-04-05 14:14 | Progress Note - Surgery ---
Subjective Date Seen by a Provider: April 05, 2020 Time Seen by a Provider: 14:12 Subjective/Events-last exam Passing flatus. Tolerating clears. No new complaints. Pain controlled. Denies n/v fever sweats chills shortness of breath or chest pain. Focused Exam Time of Focused Exam: 21:55 Objective Exam Vital Signs Date Time Temp Pulse Resp B/P (MAP) Pulse Ox O2 Delivery O2 Flow Rate FiO2 04/05/20 12:34 73 04/05/20 12:12 36.5 71 21 143/72 (95) 97 Nasal Cannula 1.50 04/05/20 10:38 94 Nasal Cannula 1.50 04/05/20 10:37 94 Nasal Cannula 1.50 04/05/20 08:21 36.4 78 20 152/61 (91) 95 Nasal Cannula 1.50 04/05/20 08:00 94 Nasal Cannula 2.00 04/05/20 07:38 92 Nasal Cannula 1.50 04/05/20 07:00 75 04/05/20 03:52 36.4 73 20 160/60 (93) 95 Nasal Cannula 1.50 04/05/20 01:00 70 04/04/20 23:50 36.4 69 22 143/65 (91) 96 Nasal Cannula 1.50 04/04/20 20:22 35.6 69 20 161/64 (96) 94 Nasal Cannula 1.50 04/04/20 20:10 Nasal Cannula 2.00 04/04/20 19:00 70 04/04/20 16:00 35.1 70 17 187/72 (110) 96 Nasal Cannula 1.50 I & O 04/05/20 07:00 Intake Total 3890 ml Output Total 825 ml Balance 3065 ml Capillary Refill : Less Than 3 SecondsLess Than 3 Seconds General Appearance: No Apparent Distress, WD/WN, Chronically ill HEENT: PERRL/EOMI, Normal ENT Inspection Neck: Normal Inspection, Non Tender Respiratory: Chest Non Tender, No Accessory Muscle Use, No Respiratory Distress Cardiovascular: Regular Rate, Rhythm, Normal Peripheral Pulses Peripheral Pulses: 0 Carotid (R), 0 Carotid (L), 0 Femoral (R), 0 Femoral (L), 0 Dorsalis Pedis (R), 0 Left Dors-Pedis (L), 0 Radial Pulses (R), 0 Radial Pulses (L); 2+ Radial Pulses (L) Gastrointestinal: soft, tenderness (incisional tenderness no signs of infection) Extremity: Normal Inspection, No Pedal Edema, Other (right BKA) Neurologic/Psychiatric: Alert, Oriented x3, No Motor/Sensory Deficits, Normal Mood/Affect Skin: Normal Color, Warm/Dry Lymphatic: No Adenopathy Results Lab Laboratory Tests 04/04/20 16:01: Glucometer 215H 04/04/20 19:53: Glucometer 261H 04/04/20 23:53: Glucometer 148H 04/05/20 03:56: Glucometer 156H 04/05/20 05:00: White Blood Count 8.9, Red Blood Count 3.42L, Hemoglobin 10.1L, Hematocrit 31L, Mean Corpuscular Volume 92, Mean Corpuscular Hemoglobin 30, Mean Corpuscular Hemoglobin Concent 32, Red Cell Distribution Width 14.4, Platelet Count 202, Mean Platelet Volume 9.7, Neutrophils (%) (Auto) 76H, Lymphocytes (%) (Auto) 12, Monocytes (%) (Auto) 11, Eosinophils (%) (Auto) 1, Basophils (%) (Auto) 0, Neutrophils # (Auto) 6.7, Lymphocytes # (Auto) 1.0, Monocytes # (Auto) 1.0, Eosinophils # (Auto) 0.1, Basophils # (Auto) 0.0, Sodium Level 141, Potassium Level 3.3L, Chloride Level 111H, Carbon Dioxide Level 22, Anion Gap 8, Blood Urea Nitrogen 23H, Creatinine 1.21, Estimat Glomerular Filtration Rate 57, BUN/Creatinine Ratio 19, Glucose Level 151H, Calcium Level 7.6L, Corrected Calcium 8.9, Total Bilirubin 0.9, Aspartate Amino Transf (AST/SGOT) 17, Alanine Aminotransferase (ALT/SGPT) 13, Alkaline Phosphatase 55, Total Protein 4.4L, Albumin 2.4L 04/05/20 08:18: Glucometer 209H 04/05/20 11:49: Glucometer 229H Microbiology 03/30/20 Urine Culture - Final, Complete NO GROWTH 03/30/20 Blood Culture - Preliminary, Resulted No growth 03/30/20 MRSA Screen - Final, Complete MRSA not isolated Assessment/Plan Assessment/Plan Assessment/Plan abdominal pain, right side ischemic colon hepatic flexure sepsis s/p diagnostic laparoscopy converted to open with partial colectomy doing well pain controlled IS clears continue abx encourage to work with PT Clinical Quality Measures DVT/VTE Risk/Contraindication: Risk Factor Score Per Nursin RFS Level Per Nursing on Admit: 4+=Very High NEHAL GREENBERG DO April 05, 2020 14:14
--- NOTE | 2020-04-05 14:45 | NUR ---
RD ASSESSMENT PMHx: CAD; DM; hypercholesterolemia; HTN; renal failure; Current: ischemic colitis PT INTERACTION: Pt was awake and pleasant during nutrition assessment for LOS. Pt states current appetite is good. Note pt was NPO from 03/31-04/05, per chart review. Note avg PO intake <25% x2meal, per chart review. Pt states following regular diet at home and has no issues with chewing/swallowing food. Pt states no recent issues with nausea, vomiting, constipation, or diarrhea, and states his last BM was "sometime before I got here." Not no BM has been recorded, and pt not currently on bowel regimen per chart review. Pt states unsure of any recent wt changes. Note recent 19# wt gain x1mon, per chart review. Pt states current DM control is pretty good. Note unable to determine recent HbA1c, per chart review. ABNORMAL NUTRITION-RELATED LAB VALUES LOW: K 3.5; Ca 7.6; Pro 4.4; alb 2.9 HIGH: Cl 11; glu 151 Est. kcal needs: 1550-875 kcal | 15-18 kcal/kg Est. Pro needs: 83-104 g Pro | 0.8-1.0 g Pro/kg PES STATEMENT: Inadequate oral intake (NI-2.1) related to loss of appetite as evidenced by pt interview | avg PO intake <25% x2meal INTERVENTION: Continue with current diet order of Clear Liquid diet. Would recommend diet advancement when medically able, and as tolerated. Discussed adding Ensure Clear with pt. Pt declined supplement, stating it causes him to become nauseous. Encouraged pt to eat when able. Offered DM education, but pt declined at this time. Will attempt to offer again prior to discharge. Will continue to follow and reassess as pt needs, intake, and status change. MONITOR/EVALUATE: PO Intake; Plan of Care; Hydration Status; Weight Status; Lab Values Juliann Booth, MS, RD, LD
[2020-04-05 16:00] VITALS: BP 157/64
--- NOTE | 2020-04-05 19:37 | NUR ---
pt feeling a lot of pressure in his lower abdomen. No void since surgery. Straight cath on pt done per order with 200 out. Pt says he feels a lot better. Will continue to monitor the patient.
[2020-04-05 20:00] VITALS: BP 171/62
[2020-04-06 00:23] VITALS: BP 152/70
[2020-04-06] MEDS: inSUlin ASPART (NovoLOG) 1 UNIT/0.01 ML (CHARGE PER UNIT) SC SCH ×7 (00:24→23:49)
[2020-04-06] MEDS: morphine INJ 4 MG/ML 1 ML (VIAL/SYRINGE) IV PRN ×2 (04:16→21:53)
[2020-04-06 04:42] VITALS: BP 144/77
[2020-04-06 06:00] LABS: BASOPHILS % (AUTO) 0 % (0-10); EOSINOPHILS # (AUTO) 0.4 10^3/uL (0.0-0.3); EOSINOPHILS % (AUTO) 6 % (0-10); HEMATOCRIT 32 % (40-54); HEMOGLOBIN 10.2 G/DL (13.3-17.7); LYMPHOCYTES # (AUTO) 1.2 X 10^3 (1.0-4.0); LYMPHOCYTES % (AUTO) 16 % (12-44); MEAN CORPUSCULAR HEMOGLOBIN 29 PG (25-34); MEAN CORPUSCULAR HGB CONC 32 G/DL (32-36); MEAN CORPUSCULAR VOLUME 92 FL (80-99); MEAN PLATELET VOLUME 9.8 FL (7.4-10.4); MONOCYTES # (AUTO) 0.7 X 10^3 (0.0-1.0); MONOCYTES % (AUTO) 9 % (0-12); NEUTROPHILS # (AUTO) 5.2 X 10^3 (1.8-7.8); NEUTROPHILS % (AUTO) 68 % (42-75); PLATELET COUNT 217 10^3/uL (130-400); RED CELL DISTRIBUTION WIDTH 14.3 % (10.0-14.5); WHITE BLOOD COUNT 7.6 10^3/uL (4.3-11.0)
[2020-04-06 06:07] LABS: ALBUMIN 2.3 GM/DL (3.2-4.5); BILIRUBIN,TOTAL 0.7 MG/DL (0.1-1.0); CALCIUM 7.7 MG/DL (8.5-10.1); CREATININE SERUM 1.25 MG/DL (0.60-1.30); MAGNESIUM 1.8 MG/DL (1.6-2.4); POTASSIUM 3.5 MMOL/L (3.6-5.0); TOTAL PROTEIN 4.5 GM/DL (6.4-8.2)
[2020-04-06] MEDS: RT-ALBUTEROL/IPRATROPIUM 3 ML (DUONEB) VIAL INH SCH ×4 (07:20→18:38)
[2020-04-06 08:00] VITALS: BP 189/68
[2020-04-06] MEDS: PANTOPRAZOLE 40 MG (PROTONIX) VIAL IV SCH ×2 (09:16→20:04)
--- NOTE | 2020-04-06 09:44 | Physical Therapy Daily Note ---
PT Daily Note-Current Subjective Pt would like to sit up and try to don his (R) LE prosthesis. Mental Status Patient Orientation: Person, Place, Situation Attachments: Oxygen Transfers SCALE: Activities may be completed with or without assistive devices. 2-Nneinkjbkr-sbtwwsp completes the activity by him/herself with no assistance from a helper. 5-Set-up or Clean-up Assistance-helper sets up or cleans up; patient completes activity. [place] assists only prior to or following the activity. 4-Supervision or Touching Assistance-helper provides verbal cues and/or touching/steadying and/or contact guard assistance as patient completes ac tivity. Assistance may be provided throughout the activity or intermittently. 3-Partial/Moderate Assistance-helper does LESS THAN HALF the effort. [place] lifts, holds or supports trunk or limbs, but provides less than half the effort. 2-Substantial/Maximal Assistance-helper does MORE THAN HALF the effort. [place] lifts or holds trunk or limbs and provides more than half the effort. 7-Ilnqsixio-srjtio does ALL the effort. Patient does none of the effort to complete the activity. Or, the assistance of 2 or more helpers is required for the patient to complete the activity. If activity was not attempted, code reason: 7-Patient Refused. 9-Not Applicable-not attempted and the patient did not perform the activity before the current illness, exacerbation or injury. 10-Not Attempted due to Environmental Limitations-(lack of equipment, weather restraints, etc.). 88-Not Attempted due to Medical Conditions or Safety Concerns. Roll Left & Right (QC): 3 Sit to Lying (QC): 3 Lying to Sitting/Side of Bed(Q: 3 Weight Bearing Right Lower Extremity: Right Weight Bearing/Tolerated Left Lower Extremity: Left Weight Bearing/Tolerated hx of rbka Gait Training Does the Patient Walk?: No and Walking Goal IS indicated Exercises Supine Ex: LE Protocol Supine Reps: 15 Treatments Performed supine to sit transfer and sat edge of bed for 5 min. He attempted to don the prosthesis, but the residual limb is too swollen to accept the prosthesis. Pt left the silicon sleeve on the leg to gas appliance servicer helper in shrinking the limb. Assessment Current Status: Fair Progress Pt was able to sit edge of bed with SBA. He made several attempts to don the prosthesis. PT Clerical Methods Analyst Goals Clerical Methods Analyst Goals PT Skilled Nursing Goals Time Frame: April 13, 2020 Roll Left & Right (QC): 4 Sit to Lying (QC): 4 Lying-Sitting on Side/Bed(QC): 4 Sit to Stand (QC): 4 Does the Patient Walk: No and Walking Goal IS indicated Walk 10 feet (QC): 4 PT Plan Treatment/Plan Treatment Plan: Continue Plan of Care Treatment Plan: Bed Mobility, Concurrent Therapy, Education, Functional Act ivity [place], Functional Strength, Gait, Safety, Therapeutic Exercise, Transfers Treatment Duration: April 13, 2020 Frequency: 6 times per week Estimated Hrs Per Day: .25 hour per day Time/GCodes Time In: 909 Time Out: 924 Total Billed Treatment Time: 15 Total Billed Treatment 1, fa (15) TENNILLE NAVARRO PT April 06, 2020 09:44
[2020-04-06 12:00] VITALS: BP 175/67
--- NOTE | 2020-04-06 13:45 | NUR ---
PT HAD NOT VOIDED -- PT STATED HE NEEDED TO STAND TO VOID -- PT AND STAFF UNABLE TO GET PROSTHETIC ON R LOWER LEG DUE TO SWELLING OF STUMP -- DR ARAUJO WAS ON FLOOR AND NA GOT 85 ML WHEN SHE BLADDER SCANNED -- THIS RN TALKED TO DR ARAUJO AND HE VOICED FOR THIS RN TO ENCOURAGE PT TO DRINK SO HE COULD VOICED -- PT VOICED HE REALLY NEEDED TO URINATE BUT COULD NOT -- THIS RN RE BLADDER SCANNED PT AND GOT 621ML -- DR ARAUJO VOICED HE WOULD PUT IN ORDERS TO BLADDER SCAN PRN AND AMOUNT WHEN TO ST CATH PT -- THIS RN ST CATH PT -- NOTE THAT WHEN URINE STARTED COMING OUT URINE WAS [place] AND HAD SLT BLOOD TINGE -- GOT 400ML [place] URINE -- AND WHEN CATH WAS PULLED PT HAD SLIGHT BLOOD AT PENIS HEAD-- DR ARAUJO WAS MADE AWARE THAT PT SEES DR MARINO Q6MOS, HE WAS UNSURE WHY-- HIS HANDLES THAT STUFF -- HE JUST TAKES MEDS AND THE ABOVE --
--- NOTE | 2020-04-06 13:57 | Progress Note - Surgery ---
Subjective Time Seen by a Provider: 11:41 Subjective/Events-last exam Pt seen and examined, states he hasn't passed any gas or had BM. He is also having trouble urinating. Nurse state pt is unable to ambulate because he is edematous and can't fit prosthetic on stump. Review of Systems General: Fatigue, Malaise Pulmonary: No Dyspnea, No Cough Cardiovascular: No: Chest Pain, Palpitations Gastrointestinal: Abdominal Pain; No: Nausea, Vomiting Genitourinary: Incontinence (last night according to night cleaner, unable to urinate today) Focused Exam Time of Focused Exam: 21:55 Objective Exam Vital Signs Date Time Temp Pulse Resp B/P (MAP) Pulse Ox O2 Delivery O2 Flow Rate FiO2 04/06/20 12:36 70 04/06/20 12:00 36.3 70 18 175/67 (103) 96 Nasal Cannula 1.50 04/06/20 10:49 95 Nasal Cannula 1.50 04/06/20 08:00 94 Nasal Cannula 2.00 04/06/20 08:00 36.5 70 20 189/68 (108) 96 Nasal Cannula 1.50 04/06/20 07:20 96 Nasal Cannula 1.50 04/06/20 06:41 70 04/06/20 04:42 37.0 70 18 144/77 (99) 95 Nasal Cannula 1.50 04/06/20 01:00 69 04/06/20 00:23 36.4 74 20 152/70 (97) 92 Nasal Cannula 1.50 04/05/20 20:17 36.4 04/05/20 20:00 37.0 74 22 171/62 (98) 95 Nasal Cannula 1.50 04/05/20 19:35 Nasal Cannula 1.50 04/05/20 19:00 74 04/05/20 18:22 92 Nasal Cannula 1.50 04/05/20 16:00 36.4 70 22 157/64 (95) 93 Nasal Cannula 1.50 04/05/20 15:42 94 Nasal Cannula 1.50 I & O 04/06/20 07:00 Intake Total 960 ml Output Total 800 ml Balance 160 ml Capillary Refill : Less Than 3 SecondsLess Than 3 Seconds General Appearance: No Apparent Distress, Chronically ill, Obese HEENT: PERRL/EOMI Respiratory: Lungs Clear, No Accessory Muscle Use, No Respiratory Distress Cardiovascular: Regular Rate, Rhythm, No Murmur Peripheral Pulses: 0 Carotid (R), 0 Carotid (L), 0 Femoral (R), 0 Femoral (L), 0 Dorsalis Pedis (R), 0 Left Dors-Pedis (L), 0 Radial Pulses (R), 0 Radial Pulses (L); 2+ Radial Pulses (L) Gastrointestinal: soft, distended (very slightly firm), tenderness (incisional tenderness no signs of infection) Extremity: Pedal Edema, Other (right BKA) Results Lab Laboratory Tests 04/05/20 16:47: Glucometer 157H 04/05/20 20:08: Glucometer 178H 04/06/20 04:35: Glucometer 187H 04/06/20 05:40: White Blood Count 7.6, Red Blood Count 3.49L, Hemoglobin 10.2L, Hematocrit 32L, Mean Corpuscular Volume 92, Mean Corpuscular Hemoglobin 29, Mean Corpuscular Hemoglobin Concent 32, Red Cell Distribution Width 14.3, Platelet Count 217, Mean Platelet Volume 9.8, Neutrophils (%) (Auto) 68, Lymphocytes (%) (Auto) 16, Monocytes (%) (Auto) 9, Eosinophils (%) (Auto) 6, Basophils (%) (Auto) 0, Neutrophils # (Auto) 5.2, Lymphocytes # (Auto) 1.2, Monocytes # (Auto) 0.7, Eosinophils # (Auto) 0.4H, Basophils # (Auto) 0.0, Sodium Level 140, Potassium Level 3.5L, Chloride Level 110H, Carbon Dioxide Level 22, Anion Gap 8, Blood Urea Nitrogen 20H, Creatinine 1.25, Estimat Glomerular Filtration Rate 55, BUN/Creatinine Ratio 16, Glucose Level 170H, Calcium Level 7.7L, Corrected Calcium 9.1, Magnesium Level 1.8, Total Bilirubin 0.7, Aspartate Amino Transf (AST/SGOT) 13, Alanine Aminotransferase (ALT/SGPT) 13, Alkaline Phosphatase 56, Total Protein 4.5L, Albumin 2.3L 04/06/20 08:42: Glucometer 169H 04/06/20 11:57: Glucometer 152H Microbiology 03/30/20 Urine Culture - Final, Complete NO GROWTH 03/30/20 Blood Culture - Final, Complete No growth 5/2/20 MRSA Screen - Final, Complete MRSA not isolated Assessment/Plan Assessment/Plan Assessment/Plan S/P partial colectomy Urinary Retention Cont pain control and encourage IS, will try to ambulate and move with PT (and as swelling goes down). Cont clears and abx. Straight cath Q8 hours and prn bladder scan >300ml. Clinical Quality Measures DVT/VTE Risk/Contraindication: Risk Factor Score Per Nursin RFS Level Per Nursing on Admit: 4+=Very High ROSANA ARAUJO DO April 06, 2020 13:57
--- NOTE | 2020-04-06 14:01 | Progress Note - Hospitalist ---
Subjective HPI/CC On Admission Date Seen by Provider: April 06, 2020 Time Seen by Provider: 13:15 Chief complaint: Abdominal pain with severe sepsis ICU admission consulted for medical management History of present illness: This is an 84-year-old white male with a history of multiple vascular procedures and vascular conditions who presents to the emergency room with abdominal pain found to have severe sepsis requiring ICU admission. 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 Patient was placed on heparin full dose drip in addition broad-spectrum antibiotics initiated for coverage of bacterial colitis. Currently patient is doing a little better he reports the pain comes and goes and he is in guarded prognosis at this current time. NG tube is in place. Check meds and labs. Conferred with RN. Subjective/Events-last exam Patient is sound asleep this afternoon. Patient's case was discussed with Dr. Jered jean-baptiste. Beginning ambulation and trying to get the patient ready for discharge. Focused Exam Time of Focused Exam: 21:55 Objective Exam Vital Signs Vital Signs Date Time Temp Pulse Resp B/P (MAP) Pulse Ox O2 Delivery O2 Flow Rate FiO2 04/06/20 12:36 70 04/06/20 12:00 36.3 18 175/67 (103) 96 Nasal Cannula 1.50 Capillary Refill : Less Than 3 SecondsLess Than 3 Seconds General Appearance: Obese Respiratory: Lungs Clear, Normal Breath Sounds, No Accessory Muscle Use, No Respiratory Distress Cardiovascular: Regular Rate, Rhythm, No Gallop, No Murmur Gastrointestinal: Abnormal Bowel Sounds, Distended Results/Procedures Lab Laboratory Tests 04/06/20 05:40 Patient resulted labs reviewed. Assessment/Plan Assessment and Plan Assess & Plan/Chief Complaint Ischemic colitis status post resection improving Weakness and inability to ambulate Discharge planning Clinical Quality Measures DVT/VTE Risk/Contraindication: Risk Factor Score Per Nursin RFS Level Per Nursing on Admit: 4+=Very High SARAH DAHL MD April 06, 2020 14:01
[2020-04-06 16:54] VITALS: BP 170/54
--- NOTE | 2020-04-06 18:30 | NUR ---
PT HAS BEEN ENCOURAGE TO URINATE THROUGHOUT THE SHIFT AND CONTINUES TO VOICE HE NEEDS TO STAND TO URINATE-- PT CALLED HIS AND SHE IS TO BRING HIS W/C AND SOCK TO PT -- SHE WILL LEAVE IT IN ER
[2020-04-06 20:13] VITALS: BP 182/64
[2020-04-06] MEDS: PROMETHAZINE INJ 25 MG/ML (PHENERGAN) AMP IV PRN (22:00)
--- NOTE | 2020-04-06 22:19 | NUR ---
Pt complaining of pressure in his lower abdomen. Bladder scan shows 744 cc. Straight cath done with 800 out.
[2020-04-07] VITALS (7 sets, daily range): BP systolic 151–182; BP diastolic 61–73
[2020-04-07] MEDS: inSUlin ASPART (NovoLOG) 1 UNIT/0.01 ML (CHARGE PER UNIT) SC SCH ×5 (04:07→21:24)
[2020-04-07] MEDS: morphine INJ 4 MG/ML 1 ML (VIAL/SYRINGE) IV PRN (04:14)
[2020-04-07 05:19] LABS: ALBUMIN 2.4 GM/DL (3.2-4.5); CHLORIDE 108 MMOL/L (98-107); POTASSIUM 3.3 MMOL/L (3.6-5.0); SODIUM 140 MMOL/L (135-145)
[2020-04-07 05:21] LABS: CALCIUM 7.7 MG/DL (8.5-10.1)
[2020-04-07 05:22] LABS: GLUCOSE 156 MG/DL (70-105); TOTAL PROTEIN 4.6 GM/DL (6.4-8.2)
[2020-04-07 05:23] LABS: CARBON DIOXIDE 23 MMOL/L (21-32)
[2020-04-07 05:24] LABS: BILIRUBIN,TOTAL 0.9 MG/DL (0.1-1.0)
[2020-04-07 05:25] LABS: ALKALINE PHOSPHATASE 57 U/L (40-136); GFR ESTIMATED > 60
[2020-04-07 05:27] LABS: BUN/CREATININE RATIO 14
[2020-04-07 05:28] LABS: ALANINE AMINOTRANSFERASE 11 U/L (0-55)
--- NOTE | 2020-04-07 06:15 | NUR ---
BLADDER SCAN SHOWS 380 CC. STRAIGHT CATH DONE WITH 400 OUT.
[2020-04-07] MEDS: RT-ALBUTEROL/IPRATROPIUM 3 ML (DUONEB) VIAL INH SCH ×4 (06:57→18:47)
[2020-04-07] MEDS: PANTOPRAZOLE 40 MG (PROTONIX) VIAL IV SCH ×2 (08:44→21:24)
[2020-04-07] MEDS: FINASTERIDE (PROSCAR) 5 MG TAB PO SCH (10:29)
--- NOTE | 2020-04-07 12:17 | Progress Note - Surgery ---
Subjective Time Seen by a Provider: 11:38 Subjective/Events-last exam Pt seen and examined, is passing a lot of gas today. Still having trouble urinating and his main complaint is of the swelling. Review of Systems Pulmonary: No Dyspnea, No Cough Cardiovascular: No: Chest Pain, Palpitations Gastrointestinal: No: Nausea, Vomiting Genitourinary: Retention Focused Exam Time of Focused Exam: 21:55 Objective Exam Vital Signs Date Time Temp Pulse Resp B/P (MAP) Pulse Ox O2 Delivery O2 Flow Rate FiO2 04/07/20 10:16 90 Nasal Cannula 1.50 04/07/20 08:06 94 Nasal Cannula 2.00 04/07/20 08:00 36.4 66 20 155/65 (95) 95 Nasal Cannula 1.00 04/07/20 06:57 74 04/07/20 06:57 90 Nasal Cannula 1.50 04/07/20 04:00 36.8 67 22 166/67 (100) 92 Nasal Cannula 1.00 04/07/20 00:58 70 04/07/20 00:00 36.9 70 22 161/61 (94) 93 Nasal Cannula 1.00 04/06/20 20:13 36.6 74 21 182/64 (103) 97 Nasal Cannula 1.00 04/06/20 19:50 Nasal Cannula 1.50 04/06/20 19:00 70 04/06/20 18:38 91 Nasal Cannula 1.50 04/06/20 16:54 36.6 70 20 170/54 (92) 98 Nasal Cannula 1.50 04/06/20 14:22 91 Nasal Cannula 1.50 04/06/20 12:36 70 I & O 04/07/20 07:00 Intake Total 1216 ml Output Total 1600 ml Balance -384 ml Capillary Refill : Less Than 3 SecondsLess Than 3 Seconds General Appearance: Obese HEENT: PERRL/EOMI Respiratory: Lungs Clear, Normal Breath Sounds, No Accessory Muscle Use, No R espiratory Distress Cardiovascular: Regular Rate, Rhythm, No Murmur Peripheral Pulses: 0 Carotid (R), 0 Carotid (L), 0 Femoral (R), 0 Femoral (L), 0 Dorsalis Pedis (R), 0 Left Dors-Pedis (L), 0 Radial Pulses (R), 0 Radial Pulses (L); 2+ Radial Pulses (L) Gastrointestinal: soft, distended (but soft today), tenderness (incisional tenderness no signs of infection) Extremity: Pedal Edema (+2), Other (right BKA, 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) Results Lab Laboratory Tests 04/06/20 16:58: Glucometer 193H 04/06/20 19:30: Glucometer 271H 04/06/20 23:47: Glucometer 125H 04/07/20 04:07: Glucometer 144H 04/07/20 05:00: Sodium Level 140, Potassium Level 3.3L, Chloride Level 108H, Carbon Dioxide Level 23, Anion Gap 9, Blood Urea Nitrogen 15, Creatinine 1.10, Estimat Glomerular Filtration Rate > 60, BUN/Creatinine Ratio 14, Glucose Level 156H, Calcium Level 7.7L, Corrected Calcium 9.0, Total Bilirubin 0.9, Aspartate Amino Transf (AST/SGOT) 14, Alanine Aminotransferase (ALT/SGPT) 11, Alkaline Phosphatase 57, Total Protein 4.6L, Albumin 2.4L 04/07/20 08:16: Glucometer 227H Microbiology 03/30/20 Urine Culture - Final, Complete NO GROWTH 03/30/20 Blood Culture - Final, Complete No growth 03/30/20 MRSA Screen - Final, Complete MRSA not isolated Assessment/Plan Assessment/Plan Assessment/Plan S/P partial colectomy Urinary Retention Cont pain control and encourage IS, will try to ambulate and move with PT (and as swelling goes down). Cont clears and abx. Straight cath Q8 hours and prn bladder scan >300ml. Clinical Quality Measures DVT/VTE Risk/Contraindication: Risk Factor Score Per Nursin RFS Level Per Nursing on Admit: 4+=Very High ROSANA ARAUJO DO April 07, 2020 12:16
--- NOTE | 2020-04-07 13:19 | Progress Note - Hospitalist ---
Subjective HPI/CC On Admission Date Seen by Provider: April 07, 2020 Time Seen by Provider: 12:00 Chief complaint: Abdominal pain with severe sepsis ICU admission consulted for medical management History of present illness: This is an 84-year-old white male with a history of multiple vascular procedures and vascular conditions who presents to the emergency room with abdominal pain found to have severe sepsis requiring ICU admission. 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 Patient was placed on heparin full dose drip in addition broad-spectrum antibiotics initiated for coverage of bacterial colitis. Currently patient is doing a little better he reports the pain comes and goes and he is in guarded prognosis at this current time. NG tube is in place. Check meds and labs. Conferred with RN. Subjective/Events-last exam Patient is resting. He has not been started on his home medications and he has been requiring straight cathetering for urinary retention. In addition his blood pressures starting to climb so will restart his home medications including Flomax and atenolol. Patient is asleep but the nurses that he had otherwise been doing well and without complaint Focused Exam Time of Focused Exam: 21:55 Objective Exam Vital Signs Vital Signs Date Time Temp Pulse Resp B/P (MAP) Pulse Ox O2 Delivery O2 Flow Rate FiO2 04/07/20 12:00 36.2 74 20 172/68 (102) 94 Nasal Cannula 1.00 Capillary Refill : Less Than 3 SecondsLess Than 3 Seconds General Appearance: No Apparent Distress Neck: Non Tender Respiratory: Chest Non Tender, Lungs Clear, Normal Breath Sounds, No Accessory Muscle Use, No Respiratory Distress Cardiovascular: Regular Rate, Rhythm, No Gallop, No Murmur Gastrointestinal: Abnormal Bowel Sounds, Distended Extremity: No Pedal Edema Results/Procedures Lab Laboratory Tests 04/07/20 05:00 Patient resulted labs reviewed. Assessment/Plan Assessment and Plan Assess & Plan/Chief Complaint Ischemic colitis status post resection improving Weakness and inability to ambulate-PT consult Hypertension we'll restart his medications Urinary retention requiring straight catheter will start back on Flomax and Proscar History of depression we'll restart his SSRI Discharge planning Clinical Quality Measures DVT/VTE Risk/Contraindication: Risk Factor Score Per Nursin RFS Level Per Nursing on Admit: 4+=Very High SARAH DAHL MD April 07, 2020 13:19
--- NOTE | 2020-04-07 14:31 | NUR ---
AT 1400 PT C/O FEELING FULL -- PT WAS BLADDER SCANNED AND HE HAD 506ML IN AND THIS RN ST CATH'D HIM AND GOT 650ML DARK SHANIQUE COLORED URINE WITH SLIGHT BLOOD IN IT -- PT TOLERATED WELL -- NOT PT HAS CONTINUALLY REQUESTED HE WANTED UP IN W/C -- PT VOICED IF WE GOT A SLIDE BOARD HE COULD GET IN HS W/C (NOTE HS W/C DOES NOT HAVE BRAKES) STAFF HAD VERY DIFFICULT TIME MOVING PT -- HE WAS TOTAL WEIGHT --
[2020-04-07] MEDS: FLUoxetine HCL 20 MG (PROzac) CAP PO SCH (21:24)
[2020-04-07] MEDS: ATENOLOL 25 MG (TENORMIN) TAB PO SCH (21:24)
[2020-04-07] MEDS: GABAPENTIN 300 MG (NEURONTIN) CAP PO SCH (21:24)
[2020-04-07] MEDS: TAMSULOSIN 0.4 MG (FLOMAX) CAP PO SCH (21:24)
--- NOTE | 2020-04-07 23:00 | NUR ---
BLADDER SCAN SHOWS 350CC. STRAIGHT CATH DONE. 300 DARK YELLOW URINE OUT.
[2020-04-08] MEDS: morphine INJ 4 MG/ML 1 ML (VIAL/SYRINGE) IV PRN ×4 (01:38→22:41)
[2020-04-08] MEDS: ONDANSETRON 4 MG/2 ML (SDV) Z0FRAN IV PRN (01:38)
--- NOTE | 2020-04-08 01:38 | NUR ---
SCANNER IN ROOM NOT WORKING
[2020-04-08 04:20] VITALS: BP 141/54
[2020-04-08 05:48] LABS: ALANINE AMINOTRANSFERASE 11 U/L (0-55); ALBUMIN 2.3 GM/DL (3.2-4.5); ALKALINE PHOSPHATASE 74 U/L (40-136); BILIRUBIN,TOTAL 0.8 MG/DL (0.1-1.0); BUN/CREATININE RATIO 12; CALCIUM 7.6 MG/DL (8.5-10.1); CARBON DIOXIDE 24 MMOL/L (21-32); CHLORIDE 107 MMOL/L (98-107); CREATININE SERUM 1.08 MG/DL (0.60-1.30); GFR ESTIMATED > 60; GLUCOSE 146 MG/DL (70-105); POTASSIUM 3.2 MMOL/L (3.6-5.0); SODIUM 139 MMOL/L (135-145); TOTAL PROTEIN 4.3 GM/DL (6.4-8.2)
[2020-04-08] MEDS: inSUlin ASPART (NovoLOG) 1 UNIT/0.01 ML (CHARGE PER UNIT) SC SCH ×4 (06:15→21:11)
[2020-04-08] MEDS: RT-ALBUTEROL/IPRATROPIUM 3 ML (DUONEB) VIAL INH SCH ×4 (07:10→19:00)
[2020-04-08 08:00] VITALS: BP 156/75
[2020-04-08] MEDS: PANTOPRAZOLE 40 MG (PROTONIX) VIAL IV SCH ×2 (08:44→21:11)
[2020-04-08] MEDS: ASPIRIN E.C. 81 MG (ECOTRIN) TAB PO SCH (08:45)
[2020-04-08] MEDS: GABAPENTIN 300 MG (NEURONTIN) CAP PO SCH ×2 (08:45→21:11)
[2020-04-08] MEDS: FINASTERIDE (PROSCAR) 5 MG TAB PO SCH (08:45)
[2020-04-08] MEDS ORDERED: ASPIRIN E.C. 325 MG (ECOTRIN) TABLET PO SCH (09:00)
--- NOTE | 2020-04-08 11:29 | Occupational Ther Daily Note ---
OT Current Status-Daily Note Subjective Pt alert, lying in bed. Pt agrees to therapy. No c/o pain. Mental Status/Objective Patient Orientation: Person, Place, Time, Situation Attachments: IV, Oxygen, Telemetry ADL-Treatment Nrsg and HERNANDEZ completed bed bath. Pt able to wash upper body and has good UE AROM. Pt continues to state that he is sore and isn't able to move well. Pt is max A for rolling side to side. Max A for buttocks, sharon area and lower body for bathing. Assist needed to don/do hospital gown due to tubing and lines. Pt requires assist to scoot up in bed. After therapy, pt lying in bed with call light/phone in reach. Nrsg in room. Therapy Code Descriptions/Definitions Functional [place] Measure: 0=Not Assessed/NA 4=Minimal Assistance 1=Total Assistance 5=Supervision or Setup 2=Maximal Assistance 6=Modified [place] 3=Moderate Assistance 7=Complete IndependenceSCALE: Activities may be completed with or without assistive devices. 1-Ffwyhwdemv-xypfltw completes the activity by him/herself with no assistance from a helper. 5-Set-up or Clean-up Assistance-helper sets up or cleans up; patient completes activity. [place] assists only prior to or following the activity. 4-Supervision or Touching Assistance-helper provides verbal cues and/or touching/steadying and/or contact guard assistance as patient completes activity. Assistance may be provided throughout the activity or intermittently. 3-Partial/Moderate Assistance-helper does LESS THAN HALF the effort. [place] lifts, holds or supports trunk or limbs, but provides less than half the effort. 2-Substantial/Maximal Assistance-helper does MORE THAN HALF the effort. [place] lifts or holds trunk or limbs and provides more than half the effort. 9-Rlywogjuk-dtxvnp does ALL the effort. Patient does none of the effort to complete the activity. Or, the assistance of 2 or more helpers is required for the patient to complete the activity. If activity was not attempted, code reason: 7-Patient Refused. 9-Not Applicable-not attempted and the patient did not perform the activity be fore the current illness, exacerbation or injury. 10-Not Attempted due to Environmental Limitations-(lack of equipment, weather restraints, etc.). 88-Not Attempted due to Medical Conditions or Safety Concerns. Shower/Bathe Self (QC): 2 OT Skilled Nursing Goals Skilled Nursing Goals Time Frame: April 15, 2020 Oral Hygiene (QC): 6 Toileting Hygiene (QC): 6 Shower/Bathe Self (QC): 6 Upper Body Dressing (QC): 6 Lower Body Dressing (QC): 6 On/Off Footwear (QC): 6 Additional Goals: 1-Demonstrate ADL Tasks, 2-Verbalize Understanding, 3- ImproveStrength/Katlyn 1=Demonstrate adherence to instructed precautions during ADL tasks. 2=Patient will verbalize/demonstrate understanding of assistive devices/modifications for ADL. 3=Patient will improve strength/tolerance for activity to enable patient to perform ADL's. OT Education/Plan Problem List/Assessment Assessment: Decreased Activ Tolerance, Decreased UE Strength, Edema, Impaired Bed Mobility, Impaired Coordination, Impaired Funct Balance, Impaired Self-Care Skills Discharge Recommendations Plan/Recommendations: Continue POC Treatment Plan/Plan of Care Patient would benefit from OT for education, treatment and training to promote independence in ADL's, mobility, safety and/or upper extremity function for ADL's. Plan of Care: ADL Retraining, Caregiver Training, Functional Mobility, UE Funct Exercise/Act Treatment Duration: April 15, 2020 Frequency: 5 times per week Estimated Hrs Per Day: .25 hour per day Agreement: Yes Rehab Potential: Guarded Time/GCodes Start Time: 10:45 Stop Time: 11:00 Total Time Billed (hr/min): 15 Billed Treatment Time 1 visit-ADL 1 (15 min) RADHA BUTCHER April 08, 2020 11:29
[2020-04-08 12:00] VITALS: BP 148/73
--- NOTE | 2020-04-08 14:53 | Physical Therapy Daily Note ---
PT Daily Note-Current Subjective Pt reports that he has a sore on his sacrum. He is ready to get up and sit on the bedside. Pain Numeric Pain Scale: 4 Location: Posterior, Soft Tissue Location Body Site: Sacrum Pain Description: Ache, Stabbing Mental Status Patient Orientation: Person, Place, Time, Situation Attachments: Oxygen, Clark Catheter Transfers SCALE: Activities may be completed with or without assistive devices. 4-Fgvrsdbbye-msverul completes the activity by him/herself with no assistance from a helper. 5-Set-up or Clean-up Assistance-helper sets up or cleans up; patient completes activity. [place] assists only prior to or following the activity. 4-Supervision or Touching Assistance-helper provides verbal cues and/or touching/steadying and/or contact guard assistance as patient completes activity. Assistance may be provided throughout the activity or intermittently. 3-Partial/Moderate Assistance-helper does LESS THAN HALF the effort. [place] lifts, holds or supports trunk or limbs, but provides less than half the effort. 2-Substantial/Maximal Assistance-helper does MORE THAN HALF the effort. [place] lifts or holds trunk or limbs and provides more than half the effort. 5-Arsulcsfb-hguoij does ALL the effort. Patient does none of the effort to complete the activity. Or, the assistance of 2 or more helpers is required for the patient to complete the activity. If activity was not attempted, code reason: 7-Patient Refused. 9-Not Applicable-not attempted and the patient did not perform the activity b efore the current illness, exacerbation or injury. 10-Not Attempted due to Environmental Limitations-(lack of equipment, weather restraints, etc.). 88-Not Attempted due to Medical Conditions or Safety Concerns. Sit to Lying (QC): 3 Lying to Sitting/Side of Bed(Q: 3 (R) LE prosthesis does not currently fit due to (R) residual limb swelling. Weight Bearing Right Lower Extremity: Right Weight Bearing/Tolerated Left Lower Extremity: Left Weight Bearing/Tolerated hx of rbka Gait Training Does the Patient Walk?: No and Walking Goal IS indicated Pt is unsure if he will be attempting to return to ambulation or rely solely on the wheelchair. Wheelchair Training Does the Pt Use a Wheelchair?: Yes Exercises Seated Therapy Exercises: LE Protocol Seated Reps: 20 Assessment Current Status: Fair Progress Pt reported sacral pain initially and (L) quad pain when starting exercises. By the end of exercises he noted that his thigh was feeling better. PT Stripe Marker Goals Group Home Goals PT Stripe Marker Goals Time Frame: April 13, 2020 Roll Left & Right (QC): 4 Sit to Lying (QC): 4 Lying-Sitting on Side/Bed(QC): 4 Sit to Stand (QC): 4 Does the Patient Walk: No and Walking Goal IS indicated Walk 10 feet (QC): 4 PT Plan Treatment/Plan Treatment Plan: Continue Plan of Care Treatment Plan: Bed Mobility, Concurrent Therapy, Education, Functional Activity Katlyn, Functional Strength, Gait, Safety, Therapeutic Exercise, Transf ers Treatment Duration: April 13, 2020 Frequency: 6 times per week Estimated Hrs Per Day: .25 hour per day Time/GCodes Time In: 1425 Time Out: 1440 Total Billed Treatment Time: 15 Total Billed Treatment 1, ex (15) TENNILLE NAVARRO PT April 08, 2020 14:53
--- NOTE | 2020-04-08 15:47 | NUR ---
[facility] Attempted to meet with patient; however, patient unavailable as he was not in his room. Will re-attempt.
[2020-04-08 16:38] VITALS: BP 152/61
[2020-04-08] MEDS ORDERED: ENOXAPARIN 40 MG/0.4 ML (LOVENOX) SYR SC SCH (18:30)
--- NOTE | 2020-04-08 19:01 | NUR ---
PT. REFUSED PERIPHERAL IV ACCESS, BUT STATED HE WOULD ALLOW A MIDLINE. DR. GREENBERG NOTIFIED.
--- NOTE | 2020-04-08 19:30 | NUR ---
NOTIFIED RN THAT PT OFF TELEMETRY AT THIS TIME.
[2020-04-08 20:14] VITALS: BP 146/55
[2020-04-08] MEDS: FLUoxetine HCL 20 MG (PROzac) CAP PO SCH (21:11)
[2020-04-08] MEDS: TAMSULOSIN 0.4 MG (FLOMAX) CAP PO SCH (21:11)
[2020-04-08] MEDS: ATENOLOL 25 MG (TENORMIN) TAB PO SCH (21:11)
--- NOTE | 2020-04-08 22:13 | Progress Note - Surgery ---
Subjective Date Seen by a Provider: April 08, 2020 Time Seen by a Provider: 19:23 Subjective/Events-last exam Patient states he is doing okay. Patient having flatus and had bowel movement. Patient's tolerating diet. Using incentive spirometer some. Feels weak. Pain controlled. I'll having difficulty with urinary retention. Therefore Clark was placed. Denies any nausea vomiting fever sweats chills shortness of breath or chest pain. Focused Exam Time of Focused Exam: 21:55 Objective Exam Vital Signs Date Time Temp Pulse Resp B/P (MAP) Pulse Ox O2 Delivery O2 Flow Rate FiO2 04/08/20 19:00 95 Nasal Cannula 1.00 04/08/20 16:38 36.8 69 18 152/61 (91) 93 Nasal Cannula 1.00 04/08/20 14:49 92 Nasal Cannula 2.00 04/08/20 12:10 70 04/08/20 12:00 36.8 71 18 148/73 (98) 100 Nasal Cannula 1.50 04/08/20 10:58 90 Nasal Cannula 2.00 04/08/20 08:00 Nasal Cannula 1.00 04/08/20 08:00 36.2 68 18 156/75 (102) 93 Nasal Cannula 1.50 04/08/20 07:10 91 Nasal Cannula 2.00 04/08/20 07:00 72 04/08/20 04:20 36.8 70 18 141/54 (83) 98 Nasal Cannula 1.50 04/08/20 01:00 70 04/07/20 23:25 36.8 72 20 159/66 (97) 97 Nasal Cannula 1.50 I & O 04/08/20 07:00 Intake Total 938 ml Output Total 650 ml Balance 288 ml Capillary Refill : Less Than 3 SecondsLess Than 3 Seconds General Appearance: No Apparent Distress, WD/WN HEENT: PERRL/EOMI, Normal ENT Inspection, Other (oropharynx dry) Neck: Normal Inspection, Non Tender Respiratory: Chest Non Tender, Normal Breath Sounds, No Accessory Muscle Use Cardiovascular: Regular Rate, Rhythm Peripheral Pulses: 0 Carotid (R), 0 Carotid (L), 0 Femoral (R), 0 Femoral (L), 0 Dorsalis Pedis (R), 0 Left Dors-Pedis (L), 0 Radial Pulses (R), 0 Radial Pulses (L); 2+ Radial Pulses (L) Gastrointestinal: soft, tenderness (incisional tenderness no signs of infection) Extremity: Normal Inspection, Pedal Edema, Other (right BKA) Neurologic/Psychiatric: Alert, Oriented x3, No Motor/Sensory Deficits, Normal Mood/Affect, food production associate II-XII Norm as Tested Skin: Normal Color, Warm/Dry Lymphatic: No Adenopathy Results Lab Laboratory Tests 04/08/20 05:21: Sodium Level 139, Potassium Level 3.2L, Chloride Level 107, Carbon Dioxide Level 24, Anion Gap 8, Blood Urea Nitrogen 13, Creatinine 1.08, Estimat Glomerular Filtration Rate > 60, BUN/Creatinine Ratio 12, Glucose Level 146H, Calcium Level 7.6L, Corrected Calcium 9.0, Total Bilirubin 0.8, Aspartate Amino Transf (AST/SGOT) 15, Alanine Aminotransferase (ALT/SGPT) 11, Alkaline Phosphatase 74, Total Protein 4.3L, Albumin 2.3L 04/08/20 11:00: Glucometer 277H 04/08/20 16:42: Glucometer 293H 04/08/20 20:19: Glucometer 210H Microbiology 03/30/20 Urine Culture - Final, Complete NO GROWTH 03/30/20 Blood Culture - Final, Complete No growth 03/30/20 MRSA Screen - Final, Complete MRSA not isolated Assessment/Plan Assessment/Plan Assessment/Plan S/P partial colectomy Urinary Retention Cont pain control and encourage IS, will try to ambulate and move with PT Inpatient rehabilitation evaluation pending Clark due to urinary retention, urology consult Repeat labs tomorrow. Clinical Quality Measures DVT/VTE Risk/Contraindication: Risk Factor Score Per Nursin RFS Level Per Nursing on Admit: 4+=Very High NEHAL GREENBERG DO April 08, 2020 22:13
[2020-04-09 00:20] VITALS: BP 120/54
[2020-04-09 04:00] VITALS: BP 125/57
[2020-04-09 05:41] LABS: HEMOGLOBIN 8.9 G/DL (13.3-17.7); MEAN PLATELET VOLUME 9.7 FL (7.4-10.4); RED CELL DISTRIBUTION WIDTH 14.7 % (10.0-14.5); WHITE BLOOD COUNT 6.7 10^3/uL (4.3-11.0)
[2020-04-09 05:44] LABS: ALBUMIN 2.3 GM/DL (3.2-4.5); POTASSIUM 3.5 MMOL/L (3.6-5.0)
[2020-04-09 05:46] LABS: CALCIUM 7.5 MG/DL (8.5-10.1)
[2020-04-09 05:47] LABS: TOTAL PROTEIN 4.6 GM/DL (6.4-8.2)
[2020-04-09] MEDS: inSUlin ASPART (NovoLOG) 1 UNIT/0.01 ML (CHARGE PER UNIT) SC SCH (05:48)
[2020-04-09 05:49] LABS: BILIRUBIN,TOTAL 0.6 MG/DL (0.1-1.0)
[2020-04-09 05:50] LABS: CREATININE SERUM 1.25 MG/DL (0.60-1.30)
[2020-04-09 05:53] LABS: MAGNESIUM 1.7 MG/DL (1.6-2.4)
[2020-04-09] MEDS: RT-ALBUTEROL/IPRATROPIUM 3 ML (DUONEB) VIAL INH SCH ×2 (07:19→10:09)
--- NOTE | 2020-04-09 07:52 | NUR ---
NOTE THAT DR MARINO WAS ON FLOOR AND CHANGED FLOMAX TO BID AND PLAN TO LEAVE AZEVEDO CATHETER IN TODAY AND POSSIBLY REMOVE AZEVEDO ON WEDNESDAY AND MONITOR --
[2020-04-09 08:00] VITALS: BP 133/70
--- NOTE | 2020-04-09 08:00 | NUR ---
NOTE THAT IN REPORT FROM NOC RN -- PT IS TO GET A MIDLINE PLACED AND C.L. TRIPLE LUMEN IN IJ TO BE REMOVED -- AFTER MID LINE PLACED
[2020-04-09] MEDS ORDERED: TAMSULOSIN 0.4 MG (FLOMAX) CAP PO SCH (09:00)
[2020-04-09] MEDS: PANTOPRAZOLE 40 MG (PROTONIX) VIAL IV SCH (09:12)
[2020-04-09] MEDS: FINASTERIDE (PROSCAR) 5 MG TAB PO SCH (09:12)
[2020-04-09] MEDS: ASPIRIN E.C. 81 MG (ECOTRIN) TAB PO SCH (09:12)
[2020-04-09] MEDS: GABAPENTIN 300 MG (NEURONTIN) CAP PO SCH (09:12)
--- NOTE | 2020-04-09 10:26 | NUR ---
CALLED DR GRENEBERG AND LEFT MESSAGE FOR PAIN MED OR SOMETHING FOR GAS FOR PT -- DUE TO PT'S REQUEST
[2020-04-09 11:05] VITALS: BP 133/70
--- NOTE | 2020-04-09 11:05 | NUR ---
NOTE THAT THIS RN CALLED REPORT TO REHAP RN -- AND THAT PRIOR TO GOING DOWN DR PAZ ON FLOOR AND SAW PT AND DC'D TELEMETRY AND SHE WAS SHOWN DR GREENBERG'S MESSAGE ABOUT PAIN MED -- SHE VOICED SHE WOULD PUT A ORDER IN FOR PAIN MED
--- NOTE | 2020-04-09 16:33 | CONSULTATION REPORT ---
DATE OF SERVICE: 04/09/2020 ATTENDING PHYSICIAN: Norris Henderson DO. SUMMARY: This is an 84-year-old white man recovering from a diagnostic laparoscopy followed by open partial colectomy on 04/03/2020. He had trouble voiding after surgery needing straight catheterization and finally Clark catheter was inserted. He is well known to me for a long time, has been doing fairly decent on Flomax daily and Proscar daily. He apparently can stand up to void, which is his preferred position because of his prosthesis on the leg that is not fitting well. IMPRESSION: Urinary retention with BPH and prostatism. PLAN: We will increase the Flomax to twice a day and keep him on the Proscar. We will give him a trial of voiding tomorrow. I told the nurse to try and see if it can fit the prosthesis in his leg or at least ____ when he wants to void tomorrow. Job ID: [id number] DocumentID: [id number] Dictated Date: 04/09/2020 08:16:37 Director Private Date: 04/09/2020 09:26:11 Dictated By: DORA MARINO MD
--- NOTE | 2020-04-09 21:02 | Progress Note - Surgery ---
Subjective Date Seen by a Provider: April 09, 2020 Time Seen by a Provider: 08:15 Subjective/Events-last exam Feeling well. Clark for urinary retention. +flatus and bm. Using IS some. Tolerating diet. Denies n/v fever sweats chills shortness of breath or chest pain. Focused Exam Time of Focused Exam: 21:55 Objective Exam Vital Signs Date Time Temp Pulse Resp B/P (MAP) Pulse Ox O2 Delivery O2 Flow Rate FiO2 04/09/20 11:05 36.7 74 20 133/70 94 Nasal Cannula 1.00 04/09/20 10:11 94 Nasal Cannula 1.00 04/09/20 08:02 Nasal Cannula 1.00 04/09/20 08:00 36.7 74 20 133/70 (91) 93 Room Air 04/09/20 07:20 94 Nasal Cannula 0.50 04/09/20 07:00 74 04/09/20 04:00 36.9 70 20 125/57 (79) 93 Nasal Cannula 0.50 04/09/20 01:00 70 04/09/20 00:20 36.8 70 21 120/54 (76) 96 Nasal Cannula 0.50 I & O 04/09/20 07:00 Intake Total 1360 ml Output Total 1350 ml Balance 10 ml Capillary Refill : Less Than 3 SecondsLess Than 3 Seconds General Appearance: No Apparent Distress, WD/WN HEENT: PERRL/EOMI, Normal ENT Inspection, Other (oropharynx dry) Neck: Normal Inspection, Non Tender Respiratory: Chest Non Tender, Normal Breath Sounds, No Accessory Muscle Use Cardiovascular: Regular Rate, Rhythm Peripheral Pulses: 0 Carotid (R), 0 Carotid (L), 0 Femoral (R), 0 Femoral (L), 0 Dorsalis Pedis (R), 0 Left Dors-Pedis (L), 0 Radial Pulses (R), 0 Radial Pulses (L); 2+ Radial Pulses (L) Gastrointestinal: soft, tenderness (incisional tenderness no signs of infection) Extremity: Normal Inspection, Pedal Edema, Other (right BKA) Neurologic/Psychiatric: Alert, Oriented x3, No Motor/Sensory Deficits, Normal Mood/Affect, dental chair assembler II-XII Norm as Tested Skin: Normal Color, Warm/Dry Lymphatic: No Adenopathy Results Lab Laboratory Tests 04/09/20 05:25: White Blood Count 6.7, Red Blood Count 3.06L, Hemoglobin 8.9L, Hematocrit 28L, Mean Corpuscular Volume 92, Mean Corpuscular Hemoglobin 29, Mean Corpuscular Hemoglobin Concent 32, Red Cell Distribution Width 14.7H, Platelet Count 225, Mean Platelet Volume 9.7, Sodium Level 139, Potassium Level 3.5L, Chloride Level 107, Carbon Dioxide Level 24, Anion Gap 8, Blood Urea Nitrogen 13, Creatinine 1.25, Estimat Glomerular Filtration Rate 55, BUN/Creatinine Ratio 10, Glucose Level 148H, Calcium Level 7.5L, Corrected Calcium 8.9, Magnesium Level 1.7, Total Bilirubin 0.6, Aspartate Amino Transf (AST/SGOT) 14, Alanine Aminotransferase (ALT/SGPT) 8, Alkaline Phosphatase 78, Total Protein 4.6L, Albumin 2.3L Microbiology 03/30/20 Urine Culture - Final, Complete NO GROWTH 03/30/20 Blood Culture - Final, Complete No growth 03/30/20 MRSA Screen - Final, Complete MRSA not isolated Assessment/Plan Assessment/Plan Assessment/Plan S/P partial colectomy Urinary Retention Cont pain control and encourage IS, will try to ambulate and move with PT Inpatient rehabilitation evaluation pending likely transfer there today Clark due to urinary retention, urology consulted midline to be placed today and remove central line Clinical Quality Measures DVT/VTE Risk/Contraindication: Risk Factor Score Per Nursin RFS Level Per Nursing on Admit: 4+=Very High NEHAL GREENBERG DO April 09, 2020 21:02
== END 2020-04-09 11:05 | DRG 853 ==
LOC: EDUNIT# 19:34 → ER 19:36 → ICU 21:06 → 4TH 04-04 14:00 → ICU 04-04 14:38 → 4TH 04-04 16:17
PROVIDERS: ADMIT Surgery; ATTEND Surgery
PROC: 0DJD4ZZ Inspection of Lower Intestinal Tract, Percutaneous Endoscopic Approach (ICD-10-PCS; 2020-04-03)
PROC: 0DBL0ZZ Excision of Transverse Colon, Open Approach (ICD-10-PCS; principal; 2020-04-03 12:23)
DX: A41.9 Sepsis, unspecified organism (principal); R65.21 Severe sepsis with septic shock; K55.039 Acute (reversible) ischemia of large intestine, extent unspecified; N17.9 Acute kidney failure, unspecified; E87.2 Acidosis; J98.11 Atelectasis; I25.10 Atherosclerotic heart disease of native coronary artery without angina pectoris; I10 Essential (primary) hypertension; R09.02 Hypoxemia; E86.0 Dehydration; E11.65 Type 2 diabetes mellitus with hyperglycemia; E11.51 Type 2 diabetes mellitus with diabetic peripheral angiopathy without gangrene; E11.42 Type 2 diabetes mellitus with diabetic polyneuropathy; E66.9 Obesity, unspecified; E78.00 Pure hypercholesterolemia, unspecified; F32.9 Major depressive disorder, single episode, unspecified; G47.30 Sleep apnea, unspecified; G43.909 Migraine, unspecified, not intractable, without status migrainosus; N40.1 Benign prostatic hyperplasia with lower urinary tract symptoms; R33.9 Retention of urine, unspecified; R54 Age-related physical debility; Z95.1 Presence of aortocoronary bypass graft; Z95.0 Presence of cardiac pacemaker; Z87.891 Personal history of nicotine dependence; Z68.33 Body mass index [BMI] 33.0-33.9, adult; Z90.49 Acquired absence of other specified parts of digestive tract; Z95.828 Presence of other vascular implants and grafts; Z79.84 Long term (current) use of oral hypoglycemic drugs; Z89.511 Acquired absence of right leg below knee; Z53.31 Laparoscopic surgical procedure converted to open procedure
CPT/HCPCS: 36415; 36556; 71045; 74176; 80053; 81000; 82271; 82962; 83605; 83690; 83735; 84100; 84145; 85007; 85025; 85027; 85610; 85730; 86141; 87040; 87081; 87088; 88307; 94640; 94664; 94760; 96361; 96365; 96375; 96376

== ENCOUNTER 2020-04-09 10:09 | Inpatient (IN) | payer MEDICARE ==
[~2020-04-09] VITALS: Ht 172.7 cm; Wt 93.1 kg
[~2020-04-09 10:09] MED LIST changes: +ASCO500C17 PO; +CALC600T12 PO; +FLUO20CA46 PO; +PEG15DRO9 OU
[2020-04-09] MEDS ORDERED: CALCIUM CARBONATE 500 MG (TUMS) TAB.CHEW PO PRN (10:45)
[2020-04-09] MEDS ORDERED: ONDANSETRON 4 MG (ZOFRAN) ORAL DISSOLVE TAB PO PRN (10:45)
[2020-04-09] MEDS ORDERED: DOCUSATE SODIUM 100 MG (COLACE) CAP PO PRN (10:45)
[2020-04-09] MEDS ORDERED: LACTULOSE SYRUP 10GM/15ML (ENULOSE) 30ML UDC PO PRN (10:45)
[2020-04-09] MEDS ORDERED: diphenhydrAMINE 25 MG TAB (BENADRYL) PO PRN (10:45)
[2020-04-09] MEDS ORDERED: BISACODYL 10 MG SUPP (DULCOLAX) PR PRN (10:45)
[2020-04-09] MEDS ORDERED: FLEET ENEMA ADULT 1 EA BTL PR PRN (10:45)
[2020-04-09] MEDS ORDERED: guaiFENesin/CODEINE (ROBITUSSIN AC) 10ML UDC PO PRN (10:45)
--- NOTE | 2020-04-09 10:55 | NUR ---
Rafael Adkins (BUD) admitted to room 225-1, with an admitting diagnosis of Critical Illness Myopathy, on 04/09/20 from 4th floor Medical via wheelchair, accompanied by staff. RAFAEL ADKINS introduced to surroundings, call light, bed controls, phone, TV, temperature control, lights, meal times, smoking policy, visitor policy, side rail policy, bathrooms and showers. Patient Rights given to patient in the handbook. RAFAEL ADKINS verbalizes understanding that [facility] is not responsible for the loss or damage to any personal effects or valuables that are kept in the patients possession during their hospitalization. The following Patient Care Plans were discussed with the patient: Discharge Planning, Impaired Mobility, and Fall Prevention. RAFAEL ADKINS verbalizes understanding of Interdisciplinary Patient Education. Patient and/or family were informed about the Rapid Response Team and its purpose. Patient received Patient Rights Booklet, which includes Privacy Act Statement and Data Collection Information Summary.
--- NOTE | 2020-04-09 12:16 | NUR ---
I SPOKE WITH THE PT ON 4TH FLOOR ON 04-01-2020 (AND PREVIOUSLY ON 02-26-2020) BEFORE THE PT WAS TRANSFERRED TO [facility]. THERE WERE NO MED CHANGES/DISCONTINUES/OR NEW MEDS
[2020-04-09] MEDS ORDERED: morphine INJ 4 MG/ML 1 ML (VIAL/SYRINGE) IV PRN (12:45)
[2020-04-09] MEDS ORDERED: ONDANSETRON 4 MG/2 ML (SDV) Z0FRAN IV PRN (12:45)
[2020-04-09] MEDS ORDERED: ENOXAPARIN 40 MG/0.4 ML (LOVENOX) SYR SC SCH (12:45)
--- NOTE | 2020-04-09 12:58 | PM&R Post Admission Assessment ---
PM&R HP Date of Visit: April 09, 2020 Time of Visit: 12:00 History of Present Illness CC: Debility with critical illness myopathy HPI: This is an 84yoWM who presents to IRF following a 10 day hospital course due to ischemic bowel requiring partial resection by Dr Henderson complicated with severe myopathy and hyperglycemia. Patient has very clear goals in what he must accomplish in order to return home and nursing facility is simply not an option. He has now started participating with therapies and he is ready to get stronger and healthier in order to lessen the burden on caregivers at home. Patient has a h/o BKA in the past from complications of DM and vascular disease. Post op ileus has placed him at an energy deficient status and will work on improving protein level with improved dietary intake. Currently patient is receiving Lortab for pain and will DC IV pain meds and Telemetry. AF required Cardiology management while in ICU. Patient was admitted to the ARU during this COVID-19 emergency. The ARU is the best and most appropriate post-acute care setting for this patient at this current time. Patient meets IRF admission criteria, however will be unable to tolerate 3 hours of therapy/5 days per week. The patient's individualized intensive rehabilitation plan is to receive 2 hours of therapy per day, by receiving 1 hour of PT and 1 hour of OT 5 out of 7 days per the patient's week. As an interdisciplinary team, we will discuss this patient's ability to tolerate an increase in the intensity of therapy to be provided throughout the patient's stay. Past Dkkbepr-Homrns-Kxphae Hx Past Med/Social Hx: Reviewed Nursing Past Med/Soc Hx, Reviewed and Corrections made Patient Social History Marrital Status: Employed/Student: retired Alcohol Use: Denies Use Smoking Status: Former Smoker Type Used: Cigars 2nd Hand Smoke Exposure: Yes Recent Hopitalizations: Yes Immunizations Up To Date Tetanus Booster (TDap): Unknown Date of Pneumonia Vaccine: Sep 29, 2012 Seasonal Allergies Seasonal Allergies: No Past Medical History Surgeries: Amputation, Cardiac, CABG, Eye Surgery, Joint Replacement, Orthopedic (right AKA), Pacemaker, Vascular Surgery Respiratory: COPD, Sleep Apnea Currently Using CPAP: No Currently Using BIPAP: No Cardiac: Coronary Artery Disease, High Cholesterol, Hypertension, Peripheral Vascular Neurological: Headaches /Migraines, Neuropathy Reproductive: No Genitourinary: Prostate Problems, Renal Failure Gastrointestinal: Chronic Constipation Musculoskeletal: Amputee Endocrine: Diabetes, Non-Insulin dep HEENT: Cataract Loss of Vision: Denies Hearing Impairment: Hard of Hearing Psychosocial: Depression History of Blood Disorders: No Adverse Reaction to Blood Pimentel: No Family History Diabetes mellitus GRANDMOTHER FH: leukemia G8 BROTHER Testicular cancer 19 FATHER Occupation: retired. PM&R Allergy/Meds/Data Review Allergies Coded Allergies: No Known Drug Allergies (Verified , 10/15/09) Home Medications Scheduled Ascorbic Acid (Vitamin C), 500 MG PO DAILY, (Reported) Aspirin (Aspirin EC), 325 MG PO DAILY, (Reported) Atenolol (Atenolol), 25 MG PO HS, (Reported) Calcium Carbonate (Calcium), 600 MG PO DAILY, (Reported) Finasteride (Finasteride), 5 MG PO D, (Reported) Fluoxetine HCl (Fluoxetine HCl), 20 MG PO HS, (Reported) Furosemide (Furosemide), 20 MG PO DAILY, (Reported) Gabapentin (Gabapentin), 300 MG PO BID, (Reported) Glipizide (Glipizide), 10 MG PO HS, (Reported) Metformin HCl (Metformin HCl), 1,000 MG PO BID, (Reported) Multivit-Min/FA/Lycopene/Lut (Centrum Silver Tablet), 1 TAB PO DAILY, (Reported) Sertraline HCl (Sertraline HCl), 50 MG PO HS, (Reported) Tamsulosin HCl (Flomax), 0.4 MG PO HS, (Reported) Scheduled PRN Hydrocodone/Acetaminophen (Hydrocodone-Acetamin 10-325 mg), 1 EA PO BID PRN for PAIN-MODERATE (5-7), (Reported) Peg 400/Hypromellose/Glycerin (Visine Dry Eye Relief Drop), 2 DROPS OU PRN PRN for DRY EYES, (Reported) Current Medications Current Medications Reviewed Review of Systems Constitutional: see HPI, weakness EENTM: no symptoms reported Respiratory: dyspnea on exertion Cardiovascular: no symptoms reported Gastrointestinal: abdominal pain, loss of appetite, nausea Genitourinary: no symptoms reported Musculoskeletal: back pain, joint pain Psychiatric/Neurological: No Symptoms Reported All Other Systems Reviewed Negative Unless Noted: Yes Physical Exam Physical Exam Vital Signs Capillary Refill : Height, Weight, BMI Height: 5'9.00" Weight: 226lbs. 9.6oz. [id number]; 31.78 BMI Method:Stated General Appearance: No Apparent Distress, WD/WN, Chronically ill, Obese Eyes: Bilateral Eye Normal Inspection, Bilateral Eye PERRL HEENT: PERRL/EOMI, Normal ENT Inspection, Pharynx Normal Neck: Full Range of Motion, Normal Inspection, Non Tender, Supple, Carotid Bruit Respiratory: Chest Non Tender, Lungs Clear, No Accessory Muscle Use, No Respiratory Distress, Decreased Breath Sounds Cardiovascular: Regular Rate, Rhythm, No Gallop, No JVD, No Murmur, Normal Peripheral Pulses Gastrointestinal: Normal Bowel Sounds, No Organomegaly, No Pulsatile Mass, Soft, Tenderness Back: Normal Inspection, No CVA Tenderness, No Vertebral Tenderness Extremity: Normal Capillary Refill, Normal Inspection, Normal Range of Motion, Non Tender, No Calf Tenderness, Pedal Edema Neurologic/Psychiatric: Alert, Oriented x3, No Motor/Sensory Deficits, Normal Mood/Affect, reading tutor II-XII Norm as Tested, Motor Weakness, Other (right AKA) Skin: Normal Color, Warm/Dry Lymphatic: No Adenopathy PM&R Medical Assessment & Plan REHAB/MEDICAL ASSESSMENT AND PLAN: REHAB IMPAIRMENT GROUP: Critical illness myopathy ETIOLOGIC DIAGNOSIS: Critical illness myopathy The comorbidities that impact the patients function and/or functional outcome by: right AKA, PVD, DM OOC, COPD, CARRIE, advanced age REHAB PLAN: The patient is being admitted to our comprehensive inpatient rehabilitation facility and can tolerate the intensity of service consisting of at least: 180 minutes of therapy a day, 5 out of 7 days a week Rehab treatment will consist of: PT OT will focus on regaining ADL potential and increase stamina and conserve energy The patient/family has a good understanding of our discharge process and will benefit from an interdisciplinary inpatient rehabilitation program. The patient has potential to make improvement and is in need of at least two of the following multidisciplinary therapies including but not limited to physical, occupational, speech, and prosthetics and orthotics. Additionally the patient will need services from respiratory, nutritional services, wound care, psychology, etc. (Customize this to each patient). Given the patients complex condition and risk of further medical complications, rehabilitation services cannot be safely or effectively provided at a lower level of care such as a retirement facility. BARRIERS TO DISCHARGE: Advanced age with right AKA ESTIMATED LOS: 7 days DISPOSITION: Home RELEVANT CHANGES SINCE PREADMISSION SCREENING: I have compared the patients medical and functional status at the time of the preadmission screening and there are: no changes PROGNOSIS: Fair REHABILITATION GOALS: 1. PT OT will focus on regaining ADL potential and increase stamina and conserve energy All the above goals were reviewed with the patient and he/she is in agreement. By signing this document, I acknowledge that I have personally performed a full physical examination on this patient within 24 hours of admission to this inpatient rehabilitation facility and have determined the patient to be able to tolerate the above course of treatment at an intensive level for a reasonable period of time. I will be completing a detailed individualized Plan of Care for this patient by day #4 of the patients stay based upon the Preadmission Screen, the Post-Admission Evaluation, and the therapy evaluations. Admission Dx/Comorbidities: (1) Critical illness myopathy ICD Codes: G72.81 - Critical illness myopathy (2) Abdominal pain Status: Acute ICD Codes: R10.9 - Unspecified abdominal pain (3) Hypoxia Status: Acute (4) Anemia Status: Chronic ICD Codes: D64.9 - Anemia, unspecified (5) Diabetes mellitus Status: Chronic ICD Codes: E11.9 - Type 2 diabetes mellitus without complications (6) COPD (chronic obstructive pulmonary disease) Status: Chronic ICD Codes: J44.9 - Chronic obstructive pulmonary disease, unspecified (7) Chronic respiratory failure with hypoxia ICD Codes: J96.11 - Chronic respiratory failure with hypoxia (8) Cardiac pacemaker Status: Chronic ICD Codes: Z95.0 - Presence of cardiac pacemaker (9) Coronary artery disease Status: Chronic ICD Codes: I25.10 - Atherosclerotic heart disease of [place] coronary artery without angina pectoris (10) DVT prophylaxis Status: Acute ICD Codes: Z29.9 - Encounter for prophylactic measures, unspecified (11) S/P partial resection of colon Status: Acute ICD Codes: Z90.49 - Acquired absence of other specified parts of digestive tract (12) 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 ICD Codes: Z89.611 - Acquired absence of right leg above knee (13) Smoker Status: Chronic ICD Codes: F17.200 - Nicotine dependence, unspecified, uncomplicated AGATHA PAZ DO April 09, 2020 12:58
--- NOTE | 2020-04-09 14:00 | Physical Therapy Evaluation ---
PT Evaluation-General Medical Diagnosis Admission Date April 09, 2020 at 10:55 Medical Diagnosis: Terminal Ileitis and colitis Onset Date: March 30, 2020 Therapy Diagnosis Therapy Diagnosis: impaired mobility, strength, endurance Height/Weight Height (Feet): 5 Height (Inches): 9.00 Weight (Pounds): 226 Weight (Ounces): 9.6 Weight Bear Status Right Lower Extremity: Right Weight Bearing/Tolerated Left Lower Extremity: Left Weight Bearing/Tolerated hx of rbka Referral Physician: Mirna Ballesteros DO Reason for Referral: Evaluation/Treatment Medical History Pertinent Medical History: CABG, CAD, DM, Heart Failure, HTN, Neuropathy, PVD, Smoking Additional Medical History Past Medical History Surgeries: Amputation, Cardiac, CABG, Eye Surgery, Orthopedic, Pacemaker, Vascular Surgery Respiratory: COPD, Sleep Apnea Currently Using CPAP: No Currently Using BIPAP: No Cardiac: Coronary Artery Disease, High Cholesterol, Hypertension, Peripheral Vascular Neurological: Headaches /Migraines, Neuropathy Reproductive: No Genitourinary: Prostate Problems, Renal Failure Gastrointestinal: Chronic Constipation Musculoskeletal: Amputee Endocrine: Diabetes, Non-Insulin dep HEENT: Cataract Loss of Vision: Denies Hearing Impairment: Hard of Hearing Psychosocial: Depression Reviewed History: Yes Social History Home: Single Level Current Living Status: Spouse Entry Into Home: Ramp Prior Prior Level of Function SCALE: Activities may be completed with or without assistive devices. 2-Rvfynpzgyu-zvmbagn completes the activity by him/herself with no assistance from a helper. 5-Set-up or Clean-up Assistance-helper sets up or cleans up; patient completes activity. [place] assists only prior to or following the activity. 4-Supervision or Touching Assistance-helper provides verbal cues and/or touching/steadying and/or contact guard assistance as patient completes activity. Assistance may be provided throughout the activity or intermittently. 3-Partial/Moderate Assistance-helper does LESS THAN HALF the effort. [place] lifts, holds or supports trunk or limbs, but provides less than half the effort. 2-Substantial/Maximal Assistance-helper does MORE THAN HALF the effort. [place] lifts or holds trunk or limbs and provides more than half the effort. 7-Ulodmgsnf-naprtq does ALL the effort. Patient does none of the effort to complete the activity. Or, the assistance of 2 or more helpers is required for the patient to complete the activity. If activity was not attempted, code reason: 7-Patient Refused. 9-Not Applicable-not attempted and the patient did not perform the activity before the current illness, exacerbation or injury. 10-Not Attempted due to Environmental Limitations-(lack of equipment, weather restraints, etc.). 88-Not Attempted due to Medical Conditions or Safety Concerns. Bed Mobility: 6 Transfers (B,C,W/C): 6 Gait: 5 Wheelchair Mobility: 6 Indoor Mobility (Ambulation): Independent Patient states he was only ambulating short distances PT Evaluation-Current Subjective Patient in bed pre tx, agrees to PT, has abdominal pain but will not rate it and seems irritated that he is asked about his pain. Will be co-treating with OT after eval due to poor patient mobility, pain, amputation, fall risk, the need to coordinate UE and LE during activity, poor safety awareness. Pt/Family Goals to be independent at home Objective Patient Orientation: Person, Place, Situation Attachments: Oxygen, Clark Catheter prosthetic leg right side ROM/Strength ROM Lower Extremities WNL Strength Lower Extremities 3/5 gross BLE Sensory Vision: Sensation Right Lower Extremit: Impaired Sensation Left Lower Extremity: Impaired Transfers Roll Left to Right (QC): 3 Sit to Lying (QC): 3 Lying to Sitting/Side of Bed(Q: 3 Sit to Stand (QC): 2 Chair/Ynx-mx-Bgntp Xfer(QC): 2 Toilet Transfer (QC): 2 Car Transfer (QC): 1 Patient performs bed mobility with min assist, supine <-> sit mod assist, sit <- > stand max assist, transfers max assist (sliding board), car transfer dependent. Patient can assist very little with his left leg, does a little better with prosthetic leg donned. Gait Does the Patient Walk?: No and Walking Goal IS indicated Mode of Locomotion: Both Anticipated Mode of Locomotion: Both Walk 10 feet (QC): 88 Walk 50 ft with 2 Turns(QC): 88 Walk 150 ft (QC): 88 Walking 10ft/uneven surface-QC: 88 Wheelchair Training Does the Pt Use a Wheelchair?: Yes Distance: 150'x2 Wheel 50 ft with 2 turns (QC): 3 Wheel 150 ft (QC): 3 Type of Wheelchair: Manual Patient can propel a manual WC 150' with min assist, sometimes he will propel it backwards using his legs but he has trouble seeing where he is going, patient has difficulty pushing with arms Stairs 1 Step (curb) (QC): 88 4 Steps (QC): 88 12 Steps (QC): 88 Balance Sitting Static: Fair Sitting Dynamic: Fair Standing Static: Poor Standing Dynamic: Poor Picking up an Object (QC): 88 Treatment standing in parallel bars x4 for about 30 sec each time, dressing. PT performs standing, WC mobility, transfers, OT performs dressing, assist with transfers and standing Assessment/Needs Patient has global weakness, poor sliding board transfer, poor motivation Rehab Potential: Guarded PT Short Term Goals Short Term Goals Time Frame: April 16, 2020 Roll Left & Right: 6 Sit to lyin Lying to sitting on side of be: 4 Sit to stand: 3 Chair/btm-vg-zlwrp transfer: 3 Walk 10 feet: 3 PT Senior Care Goals Payroll And Benefits Manager Goals PT Payroll And Benefits Manager Goals Time Frame: Apr 30, 2020 Roll Left & Right (QC): 6 Sit to Lying (QC): 6 Lying-Sitting on Side/Bed(QC): 6 Sit to Stand (QC): 4 (SBA) Chair/Bwj-lt-Inuli Xfer(QC): 4 (SBA) Toilet Transfer (QC): 4 Car Transfer (QC): 3 Does the Patient Walk: No and Walking Goal IS indicated Walk 10 feet (QC): 4 Walk 50ft with 2 Turns (QC): 4 Walk 150 ft (QC): 88 Walking 10ft on Uneven Surface: 88 1 Step (curb) (QC): 88 4 Steps (QC): 88 12 Steps (QC): 88 Picking up an Object (QC): 88 Wheel 50 feet with 2 turns (QC: 6 Wheel 150 feet: 6 PT Plan Problem List Problem List: Activity Tolerance, Functional Strength, Safety, Balance, Gait, Transfer, Bed Mobility, ROM Treatment/Plan Treatment Plan: Continue Plan of Care Treatment Plan: Bed Mobility, Education, Functional Activity [place], Functional Strength, Group Therapy, Gait, Safety, Therapeutic Exercise, Transfers Treatment Duration: Apr 30, 2020 Frequency: modified program 60 min/day, advance as patient is able Estimated Hrs Per Day: 1 hour per day Patient and/or Family Agrees t: Yes Safety Risks/Education Patient Education: Transfer Techniques, Correct Positioning, Reviewed Don/Doff Brace (prosthetic leg), Safety Issues Teaching Recipient: Patient Teaching Methods: Demonstration, Discussion Response to Teaching: Reinforcement Needed Discharge Recommendations Plan Patient will perform bed mobility and transfer training, balance and endurance training, functional strengthening, stair training, gait training, and educa tion, to improve functional mobility and independence at home. Therapy Discharge Recommendati: Other, See Comments (NH), Home & Family Time/GCodes Time In: 1055 Time Out: 1205 Total Billed Treatment Time: 60 Total Billed Treatment 1 visit EVM 10' FA 50' Co-treat with OT for 50 min. PT eval from [id number], OT eval from [id number], co-treat from [id number]. NICOLE ESCUDERO PT April 09, 2020 14:00
--- OUTSIDE RECORDS SUMMARY | 2020-04-09 14:03 | XMS REPORT | Continuity of Care Document ---
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 [...] 10/15/2016 PK BURNHAM MD Ot Z79. 84 PLYCOR OPERATOR (CURRENT) USE OF ORAL HYPOGLYC 10/15/2016 PK [...] DO Ot I25.10 ATHSCL HEART DISEASE OF [place] CORONARY 10/20/2016 AGATHA PAZ DO Ot I50.33 [...] HEMOPTYSIS 10/20/2016 AGATHA PAZ DO Ot Z79.84 PLYCOR OPERATOR (CURRENT) USE OF ORAL HYPOGLYC 10/20/2016 AGATHA [...] Ot I25. 10 ATHSCL HEART DISEASE OF [place] CORONARY 02/13/2019 ANTHONY ELLSWORTH MD Ot I73. 9 PERIPHERAL VASCULAR DISEASE, UNSPECIFIED 02/13/2019 ANTHONY ELLSWORTH MD Ot R10. 31 RIGHT LOWER QUADRANT PAIN 02/13/2019 ANTHONY ELLSWORTH MD Ot Z79. 4 USP (CURRENT) USE OF INSULIN 02/13/2019 ANTHONY ELLSWORTH MD Ot Z79. 82 PLYCOR OPERATOR (CURRENT) USE OF ASPIRIN 02/13/2019 ANTHONY ELLSWORTH [...] Ot I25. 10 ATHSCL HEART DISEASE OF [place] CORONARY 02/14/2019 ANTHONY ELLSWORTH MD Ot I73. 9 PERIPHERAL VASCULAR DISEASE, UNSPECIFIED 02/14/2019 ANTHONY ELLSWORTH MD Ot R10. 31 RIGHT LOWER QUADRANT PAIN 02/14/2019 ANTHONY ELLSWORTH MD Ot Z79. 4 PLYCOR OPERATOR (CURRENT) USE OF INSULIN 02/14/2019 ANTHONY ELLSWORTH MD Ot Z79. 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 40 [...] Ot I25. 10 ATHSCL HEART DISEASE OF [place] CORONARY 02/18/2019 PK BURNHAM MD Ot K59. 09 OTHER CONSTIPATION 02/18/2019 PK BURNHAM MD Ot N18. 3 CHRONIC KIDNEY DISEASE, STAGE 3 (MODERAT 02/18/2019 PK BURNHAM MD Ot R10. 9 UNSPECIFIED ABDOMINAL PAIN 02/18/2019 PK BURNHAM MD Ot Z79. 82 PLYCOR OPERATOR (CURRENT) USE OF ASPIRIN 02/18/2019 PK BURNHAM MD Ot Z79. 84 PLYCOR OPERATOR (CURRENT) USE OF ORAL HYPOGLYC 02/18/2019 PK BURNHAM MD Ot Z79.899 OTHER PLYCOR OPERATOR (CURRENT) DRUG THERAPY 02/18/2019 PK BURNHAM MD Ot Z95. 0 PRESENCE OF CARDIAC PACEMAKER 02/18/2019 PK BURNHAM MD Ot Z95. 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 40 [...] Ot I25. 10 ATHSCL HEART DISEASE OF [place] CORONARY 02/18/2019 PK BURNHAM MD Ot K59. 09 OTHER CONSTIPATION 02/18/2019 PK BURNHAM MD Ot N18. 3 CHRONIC KIDNEY DISEASE, STAGE 3 (MODERAT 02/18/2019 PK BURNHAM MD Ot R10. 9 UNSPECIFIED ABDOMINAL PAIN 02/18/2019 PK BURNHAM MD Ot Z79. 82 USP (CURRENT) USE OF ASPIRIN 02/18/2019 PK BURNHAM MD Ot Z79. 84 USP (CURRENT) USE OF ORAL HYPOGLYC 02/18/2019 PK BURNHAM MD Ot Z79.899 OTHER PLYCOR OPERATOR (CURRENT) DRUG THERAPY 02/18/2019 PK BURNHAM MD [...] Ot I25. 10 ATHSCL HEART DISEASE OF [place] CORONARY 05/11/2019 NEHAL GREENBERG DO Ot J44. [...] 05/11/2019 NEHAL GREENBERG DO Ot Z79. 84 USP (CURRENT) USE OF ORAL HYPOGLYC 05/11/2019 NEHAL [...] Ot I25. 10 ATHSCL HEART DISEASE OF [place] CORONARY 05/11/2019 NEHAL GREENBERG DO Ot J44. [...] 05/11/2019 NEHAL GREENBERG DO Ot Z79. 84 PLYCOR OPERATOR (CURRENT) USE OF ORAL HYPOGLYC 05/11/2019 NEHAL [...] AGATHA Ot I25.10 ATHSCL HEART DISEASE OF [place] CORONARY 05/17/2019 BRANDI REDDY AGATHA Ot J44.9 [...] MD Ot I25.10 ATHSCL HEART DISEASE OF [place] CORONARY 02/27/2020 SHANNON GUTIERREZ MD Ot I95 [...] UNSPECIFIED 02/27/2020 SHANNON GUTIERREZ MD, Ot Z79.84 USP (CURRENT) USE OF ORAL HYPOGLYC 02/27/2020 SHANNON [...] MD Ot I25.10 ATHSCL HEART DISEASE OF [place] CORONARY 02/28/2020 SHANNON GUTIERREZ MD, Ot I95 [...] UNSPECIFIED 02/28/2020 SHANNON GUTIERREZ MD, Ot Z79.84 PLYCOR OPERATOR (CURRENT) USE OF ORAL HYPOGLYC 02/28/2020 SHANNON [...] MD Ot I25.10 ATHSCL HEART DISEASE OF [place] CORONARY 02/28/2020 SHANNON GUTIERREZ MD, Ot I95 [...] UNSPECIFIED 02/28/2020 SHANNON GUTIERREZ MD Ot Z79.84 USP (CURRENT) USE OF ORAL HYPOGLYC 02/28/2020 SHANNON [...] MD Ot I25.10 ATHSCL HEART DISEASE OF [place] CORONARY 02/28/2020 SHANNON GUTIERREZ MD Ot I95 [...] UNSPECIFIED 02/28/2020 SHANNON GUTIERREZ MD Ot Z79.84 PLYCOR OPERATOR (CURRENT) USE OF ORAL HYPOGLYC 02/28/2020 SHANNON GUTIERREZ MD, Ot Z87.19 PERSONAL HISTORY OF OTHER DISEASES OF TH 02/28/2020 SHANNON GUTIERREZ MD Ot Z89.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 02/28/2020 SHANNON GUTIERREZ MD, Ot Z90.49 ACQUIRED ABSENCE OF OTHER SPECIFIED PART 02/28/2020 SHANNON GUTIERREZ MD Ot Z95 .0 PRESENCE OF CARDIAC PACEMAKER 02/28/2020 SHANNON GUTIERREZ MD Ot Z95 .1 PRESENCE OF AORTOCORONARY BYPASS GRAFT 04/02/2020 [place] NEHAL REDDY Ot A41. 9 SEPSIS, UNSPECIFIED ORGANISM 04/02/2020 [place] DONEHAL Ot E11. 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 TYPE 2 DIABETES W DIABETIC PERIPHERAL AN 04/02/2020 [facility] E11. 65 TYPE 2 DIABETES MELLITUS WITH HYPERGLYCE 04/02/2020 [place] NEHAL REDDY Ot E66. 9 OBESITY, UNSPECIFIED 04/02/2020 [facility] E78. 00 PURE HYPERCHOLESTEROLEMIA, UNSPECIFIED 04/02/2020 [place] NEHAL REDDY Ot E86. 0 DEHYDRATION 04/02/2020 [facility] E87. 2 ACIDOSIS 04/02/2020 [facility] F32. 9 MAJOR DEPRESSIVE DISORDER, SINGLE EPISOD 04/02/2020 [place] NEHAL REDDY Ot G43.909 MIGRAINE, UNSP, NOT INTRACTABLE, WITHOUT 04/02/2020 [place] DONEHAL Ot G47. 30 SLEEP APNEA, UNSPECIFIED 04/02/2020 [place] NEHAL REDDY Ot I10 ESSENTIAL (PRIMARY) HYPERTENSION 04/02/2020 [place] NEHAL REDDY Ot I25. 10 ATHSCL HEART DISEASE OF [place] CORONARY 04/02/2020 [place] NEHAL REDDY Ot K55.039 ACUTE ISCHEMIA OF LARGE INTESTINE, EXTEN 04/02/2020 [place] NEHAL REDDY Ot N17. 9 ACUTE KIDNEY FAILURE, UNSPECIFIED 04/02/2020 [place] NEHAL REDDY Ot N42. 9 DISORDER OF PROSTATE, UNSPECIFIED 04/02/2020 [place] NEHAL REDDY Ot R54 AGE-RELATED PHYSICAL DEBILITY 04/02/2020 [facility] R65. 21 SEVERE SEPSIS WITH SEPTIC SHOCK 04/02/2020 [place] DONEHAL Ot Z68. 33 BODY MASS INDEX (BMI) 33.0-33.9, ADULT 04/02/2020 [facility] Z79. 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 49 ACQUIRED ABSENCE OF OTHER SPECIFIED PART 04/02/2020 [facility] Z95. 0 PRESENCE OF CARDIAC PACEMAKER 04/02/2020 [facility] Z95. 1 PRESENCE OF AORTOCORONARY BYPASS GRAFT 04/02/2020 [place] DONEHAL Ot Z95.828 PRESENCE OF OTHER VASCULAR IMPLANTS AND 04/02/2020 [place] NEHAL REDDY Ot A41. 9 SEPSIS, UNSPECIFIED ORGANISM 04/02/2020 [facility] E11. 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 51 TYPE 2 DIABETES W DIABETIC PERIPHERAL AN 04/02/2020 [facility] E11. 65 TYPE 2 DIABETES MELLITUS WITH HYPERGLYCE 04/02/2020 [place] NEHAL REDDY Ot E66. 9 OBESITY, UNSPECIFIED 04/02/2020 [place] NEHAL REDDY Ot E78. 00 PURE HYPERCHOLESTEROLEMIA, UNSPECIFIED 04/02/2020 [place] NEHAL REDDY Ot E86. 0 DEHYDRATION 04/02/2020 [place] NEHAL REDDY Ot E87. 2 ACIDOSIS 04/02/2020 [place] NEHAL REDDY Ot F32. 9 MAJOR DEPRESSIVE DISORDER, SINGLE EPISOD 04/02/2020 [place] NEHAL REDDY Ot G43.909 MIGRAINE, UNSP, NOT INTRACTABLE, WITHOUT 04/02/2020 [place] NEHAL REDDY Ot G47. 30 SLEEP APNEA, UNSPECIFIED 04/02/2020 [place] NEHAL REDDY Ot I10 ESSENTIAL (PRIMARY) HYPERTENSION 04/02/2020 [facility]25. 10 ATHSCL HEART DISEASE OF [place] CORONARY 04/02/2020 [place] DONEHAL Ot K55.039 ACUTE ISCHEMIA OF LARGE INTESTINE, EXTEN 04/02/2020 [facility] N17. 9 ACUTE KIDNEY FAILURE, UNSPECIFIED 04/02/2020 [facility] N42. 9 DISORDER OF PROSTATE, UNSPECIFIED 04/02/2020 [facility] R54 AGE-RELATED PHYSICAL DEBILITY 04/02/2020 [facility] R65. 21 SEVERE SEPSIS WITH SEPTIC SHOCK 04/02/2020 [facility] Z68. 33 BODY MASS INDEX (BMI) 33.0-33.9, ADULT 04/02/2020 [facility] Z79. 84 PLYCOR OPERATOR (CURRENT) USE OF ORAL HYPOGLYC 04/02/2020 [facility] Z87.891 PERSONAL HISTORY OF NICOTINE DEPENDENCE 04/02/2020 [facility] Z89.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 04/02/2020 [facility] Z90. 49 ACQUIRED ABSENCE OF OTHER SPECIFIED PART 04/02/2020 [facility] Z95. 0 PRESENCE OF CARDIAC PACEMAKER 04/02/2020 [facility] Z95. 1 PRESENCE OF AORTOCORONARY BYPASS GRAFT 04/02/2020 [facility] Z95.828 PRESENCE OF OTHER VASCULAR IMPLANTS AND 04/02/2020 [facility] A41. 9 SEPSIS, UNSPECIFIED ORGANISM 04/02/2020 [facility] E11. 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 51 TYPE 2 DIABETES W DIABETIC PERIPHERAL AN 04/02/2020 [facility] E11. 65 TYPE 2 DIABETES MELLITUS WITH HYPERGLYCE 04/02/2020 [facility] E66. 9 OBESITY, UNSPECIFIED 04/02/2020 [facility] E78. 00 PURE HYPERCHOLESTEROLEMIA, UNSPECIFIED 04/02/2020 [facility] E86. 0 DEHYDRATION 04/02/2020 [facility] E87. 2 ACIDOSIS 04/02/2020 [place] NEHAL REDDY Ot F32. 9 MAJOR DEPRESSIVE DISORDER, SINGLE EPISOD 04/02/2020 [place] NEHAL REDDY Ot G43.909 MIGRAINE, UNSP, NOT INTRACTABLE, WITHOUT 04/02/2020 [place] NEHAL REDDY Ot G47. 30 SLEEP APNEA, UNSPECIFIED 04/02/2020 [place] NEHAL REDDY Ot I10 ESSENTIAL (PRIMARY) HYPERTENSION 04/02/2020 [place] DONEHAL Ot I25. 10 ATHSCL HEART DISEASE OF [place] CORONARY 04/02/2020 [place] DONEHAL Ot K55.039 ACUTE ISCHEMIA OF LARGE INTESTINE, EXTEN 04/02/2020 [place] DONEHAL Ot N17. 9 ACUTE KIDNEY FAILURE, UNSPECIFIED 04/02/2020 [place] DONEHAL Ot N42. 9 DISORDER OF PROSTATE, UNSPECIFIED 04/02/2020 [facility] R54 AGE-RELATED PHYSICAL DEBILITY 04/02/2020 [facility] R65. 21 SEVERE SEPSIS WITH SEPTIC SHOCK 04/02/2020 [place] DONEHAL Ot Z68. 33 BODY MASS INDEX (BMI) 33.0-33.9, ADULT 04/02/2020 [place] DONEHAL Ot Z79. 84 USP (CURRENT) USE OF ORAL HYPOGLYC 04/02/2020 [facility] Z87.891 PERSONAL HISTORY OF NICOTINE DEPENDENCE 04/02/2020 [facility] Z89.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 04/02/2020 [place] DONEHAL Ot Z90. 49 ACQUIRED ABSENCE OF OTHER SPECIFIED PART 04/02/2020 [place] DONEHAL Ot Z95. 0 PRESENCE OF CARDIAC PACEMAKER 04/02/2020 [place] DONEHAL Ot Z95. 1 PRESENCE OF AORTOCORONARY BYPASS GRAFT 04/02/2020 [place] DONEHAL Ot Z95.828 PRESENCE OF OTHER VASCULAR IMPLANTS AND 04/02/2020 [place] NEHAL REDDY Ot A41. 9 SEPSIS, UNSPECIFIED ORGANISM 04/02/2020 [place] DONEHAL Ot E11. 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 51 TYPE 2 DIABETES W DIABETIC PERIPHERAL AN 04/02/2020 [facility] E11. 65 TYPE 2 DIABETES MELLITUS WITH HYPERGLYCE 04/02/2020 [facility] E66. 9 OBESITY, UNSPECIFIED 04/02/2020 [facility] E78. 00 PURE HYPERCHOLESTEROLEMIA, UNSPECIFIED 04/02/2020 [facility] E86. 0 DEHYDRATION 04/02/2020 [facility] E87. 2 ACIDOSIS 04/02/2020 [facility] F32. 9 MAJOR DEPRESSIVE DISORDER, SINGLE EPISOD 04/02/2020 [facility] Ot G43.909 MIGRAINE, UNSP, NOT INTRACTABLE, WITHOUT 04/02/2020 [place] DONEHAL Ot G47. 30 SLEEP APNEA, UNSPECIFIED 04/02/2020 [facility] I10 ESSENTIAL (PRIMARY) HYPERTENSION 04/02/2020 [facility] I25. 10 ATHSCL HEART DISEASE OF [place] CORONARY 04/02/2020 [facility] Ot K55.039 ACUTE ISCHEMIA OF LARGE INTESTINE, EXTEN 04/02/2020 [place] DONEHAL Ot N17. 9 ACUTE KIDNEY FAILURE, UNSPECIFIED 04/02/2020 [facility] N42. 9 DISORDER OF PROSTATE, UNSPECIFIED 04/02/2020 [facility] R54 AGE-RELATED PHYSICAL DEBILITY 04/02/2020 [facility] R65. 21 SEVERE SEPSIS WITH SEPTIC SHOCK 04/02/2020 [facility] Z68. 33 BODY MASS INDEX (BMI) 33.0-33.9, ADULT 04/02/2020 [facility] Z79. 84 PLYCOR OPERATOR (CURRENT) USE OF ORAL HYPOGLYC 04/02/2020 [facility] Z87.891 PERSONAL HISTORY OF NICOTINE DEPENDENCE 04/02/2020 [facility] Z89.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 04/02/2020 [facility] Z90. 49 ACQUIRED ABSENCE OF OTHER SPECIFIED PART 04/02/2020 [facility] Z95. 0 PRESENCE OF CARDIAC PACEMAKER 04/02/2020 [facility] Z95. 1 PRESENCE OF AORTOCORONARY BYPASS GRAFT 04/02/2020 [facility] Z95.828 PRESENCE OF OTHER VASCULAR IMPLANTS AND 04/03/2020 [place] NEHAL REDDY Ot A41. 9 SEPSIS, UNSPECIFIED ORGANISM 04/03/2020 [facility] E11. 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 65 TYPE 2 DIABETES MELLITUS WITH HYPERGLYCE 04/03/2020 [facility] E66. 9 OBESITY, UNSPECIFIED 04/03/2020 [place] DONEHAL Ot E78. 00 PURE HYPERCHOLESTEROLEMIA, UNSPECIFIED 04/03/2020 [facility] E86. 0 DEHYDRATION 04/03/2020 [facility] E87. 2 ACIDOSIS 04/03/2020 [place] DONEHAL Ot F32. 9 MAJOR DEPRESSIVE DISORDER, SINGLE EPISOD 04/03/2020 [facility] Ot G43.909 MIGRAINE, UNSP, NOT INTRACTABLE, WITHOUT 04/03/2020 [place] DONEHAL Ot G47. 30 SLEEP APNEA, UNSPECIFIED 04/03/2020 [facility] I10 ESSENTIAL (PRIMARY) HYPERTENSION 04/03/2020 [facility] I25. 10 ATHSCL HEART DISEASE OF [place] CORONARY 04/03/2020 [facility] Ot K55.039 ACUTE ISCHEMIA OF LARGE INTESTINE, EXTEN 04/03/2020 [place] NEHAL REDDY Ot N17. 9 ACUTE KIDNEY FAILURE, UNSPECIFIED 04/03/2020 [facility] N42. 9 DISORDER OF PROSTATE, UNSPECIFIED 04/03/2020 [facility] R54 AGE-RELATED PHYSICAL DEBILITY 04/03/2020 [place] DONEHAL Ot R65. 21 SEVERE SEPSIS WITH SEPTIC SHOCK 04/03/2020 [place] DONEHAL Ot Z68. 33 BODY MASS INDEX (BMI) 33.0-33.9, ADULT 04/03/2020 [place] DONEHAL Ot Z79. 84 PLYCOR OPERATOR (CURRENT) USE OF ORAL HYPOGLYC 04/03/2020 [facility] Z87.891 PERSONAL HISTORY OF NICOTINE DEPENDENCE 04/03/2020 [facility] Z89.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 04/03/2020 [facility] Z90. 49 ACQUIRED ABSENCE OF OTHER SPECIFIED PART 04/03/2020 [facility] Z95. 0 PRESENCE OF CARDIAC PACEMAKER 04/03/2020 [facility] Z95. 1 PRESENCE OF AORTOCORONARY BYPASS GRAFT 04/03/2020 [facility] Z95.828 PRESENCE OF OTHER VASCULAR IMPLANTS AND 04/04/2020 [facility] A41. 9 SEPSIS, UNSPECIFIED ORGANISM 04/04/2020 [facility] E11. 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 65 TYPE 2 DIABETES MELLITUS WITH HYPERGLYCE 04/04/2020 [facility] E66. 9 OBESITY, UNSPECIFIED 04/04/2020 [facility] E78. 00 PURE HYPERCHOLESTEROLEMIA, UNSPECIFIED 04/04/2020 [facility] E86. 0 DEHYDRATION 04/04/2020 [facility] E87. 2 ACIDOSIS 04/04/2020 [facility] F32. 9 MAJOR DEPRESSIVE DISORDER, SINGLE EPISOD 04/04/2020 [facility] G43.909 MIGRAINE, UNSP, NOT INTRACTABLE, WITHOUT 04/04/2020 [facility] G47. 30 SLEEP APNEA, UNSPECIFIED 04/04/2020 [facility] I10 ESSENTIAL (PRIMARY) HYPERTENSION 04/04/2020 [facility] I25. 10 ATHSCL HEART DISEASE OF [place] CORONARY 04/04/2020 [facility] K55.039 ACUTE ISCHEMIA OF LARGE INTESTINE, EXTEN 04/04/2020 [facility] N17. 9 ACUTE KIDNEY FAILURE, UNSPECIFIED 04/04/2020 [facility] N42. 9 DISORDER OF PROSTATE, UNSPECIFIED 04/04/2020 [facility] R54 AGE-RELATED PHYSICAL DEBILITY 04/04/2020 [facility] R65. 21 SEVERE SEPSIS WITH SEPTIC SHOCK 04/04/2020 [facility] Z68. 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 49 ACQUIRED ABSENCE OF OTHER SPECIFIED PART 04/04/2020 [facility] Z95. 0 PRESENCE OF CARDIAC PACEMAKER 04/04/2020 [facility] Z95. 1 PRESENCE OF AORTOCORONARY BYPASS GRAFT 04/04/2020 [facility] Z95.828 PRESENCE OF OTHER VASCULAR IMPLANTS AND 04/04/2020 [facility] A41. 9 SEPSIS, UNSPECIFIED ORGANISM 04/04/2020 [facility] E11. 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 65 TYPE 2 DIABETES MELLITUS WITH HYPERGLYCE 04/04/2020 [place] NEHAL REDDY Ot E66. 9 OBESITY, UNSPECIFIED 04/04/2020 [place] NEHAL REDDY Ot E78. 00 PURE HYPERCHOLESTEROLEMIA, UNSPECIFIED 04/04/2020 [facility]. 0 DEHYDRATION 04/04/2020 [facility] E87. 2 ACIDOSIS 04/04/2020 [place] NEHAL REDDY Ot F32. 9 MAJOR DEPRESSIVE DISORDER, SINGLE EPISOD 04/04/2020 [place] NEHAL REDDY Ot G43.909 MIGRAINE, UNSP, NOT INTRACTABLE, WITHOUT 04/04/2020 [place] NEHAL REDDY Ot G47. 30 SLEEP APNEA, UNSPECIFIED 04/04/2020 [place] NEHAL REDDY Ot I10 ESSENTIAL (PRIMARY) HYPERTENSION 04/04/2020 [facility]. 10 ATHSCL HEART DISEASE OF [place] CORONARY 04/04/2020 [facility] K55.039 ACUTE ISCHEMIA OF LARGE INTESTINE, EXTEN 04/04/2020 [facility] N17. 9 ACUTE KIDNEY FAILURE, UNSPECIFIED 04/04/2020 [facility] N42. 9 DISORDER OF PROSTATE, UNSPECIFIED 04/04/2020 [facility] R54 AGE-RELATED PHYSICAL DEBILITY 04/04/2020 [facility] R65. 21 SEVERE SEPSIS WITH SEPTIC SHOCK 04/04/2020 [facility] Z68. 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 49 ACQUIRED ABSENCE OF OTHER SPECIFIED PART 04/04/2020 [facility] Z95. 0 PRESENCE OF CARDIAC PACEMAKER 04/04/2020 [facility] Z[facility]. 1 PRESENCE OF AORTOCORONARY BYPASS GRAFT 04/04/2020 [facility] Z95.828 PRESENCE OF OTHER VASCULAR IMPLANTS AND 04/04/2020 [facility] A41. 9 SEPSIS, UNSPECIFIED ORGANISM 04/04/2020 [facility] E11. 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 65 TYPE 2 DIABETES MELLITUS WITH HYPERGLYCE 04/04/2020 [facility] E66. 9 OBESITY, UNSPECIFIED 04/04/2020 [facility] E78. 00 PURE HYPERCHOLESTEROLEMIA, UNSPECIFIED 04/04/2020 [facility] E86. 0 DEHYDRATION 04/04/2020 [facility] E87. 2 ACIDOSIS 04/04/2020 [facility] F32. 9 MAJOR DEPRESSIVE DISORDER, SINGLE EPISOD 04/04/2020 [facility] Ot G43.909 MIGRAINE, UNSP, NOT INTRACTABLE, WITHOUT 04/04/2020 [facility] Ot G47. 30 SLEEP APNEA, UNSPECIFIED 04/04/2020 [facility] I10 ESSENTIAL (PRIMARY) HYPERTENSION 04/04/2020 [facility] Ot I25. 10 ATHSCL HEART DISEASE OF [place] CORONARY 04/04/2020 [facility] K55.039 ACUTE ISCHEMIA OF LARGE INTESTINE, EXTEN 04/04/2020 [facility] Ot N17. 9 ACUTE KIDNEY FAILURE, UNSPECIFIED 04/04/2020 [facility] N42. 9 DISORDER OF PROSTATE, UNSPECIFIED 04/04/2020 [facility] R54 AGE-RELATED PHYSICAL DEBILITY 04/04/2020 [facility] R65. 21 SEVERE SEPSIS WITH SEPTIC SHOCK 04/04/2020 [facility] Z68. 33 BODY MASS INDEX (BMI) 33.0-33.9, ADULT 04/04/2020 [facility] Z79. 84 USP (CURRENT) USE OF ORAL HYPOGLYC 04/04/2020 [facility] Z87.891 PERSONAL HISTORY OF NICOTINE DEPENDENCE 04/04/2020 [facility] Z89.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 04/04/2020 [facility] Z90. 49 ACQUIRED ABSENCE OF OTHER SPECIFIED PART 04/04/2020 [facility] Z95. 0 PRESENCE OF CARDIAC PACEMAKER 04/04/2020 [facility] Z95. 1 PRESENCE OF AORTOCORONARY BYPASS GRAFT 04/04/2020 [facility] Ot Z95.828 PRESENCE OF OTHER VASCULAR IMPLANTS AND 04/04/2020 [facility] Ot A41. 9 SEPSIS, UNSPECIFIED ORGANISM 04/04/2020 [facility] E11. 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 65 TYPE 2 DIABETES MELLITUS WITH HYPERGLYCE 04/04/2020 [facility] E66. 9 OBESITY, UNSPECIFIED 04/04/2020 [facility] E78. 00 PURE HYPERCHOLESTEROLEMIA, UNSPECIFIED 04/04/2020 [facility] E86. 0 DEHYDRATION 04/04/2020 [facility] E87. 2 ACIDOSIS 04/04/2020 [facility] F32. 9 MAJOR DEPRESSIVE DISORDER, SINGLE EPISOD 04/04/2020 [facility] G43.909 MIGRAINE, UNSP, NOT INTRACTABLE, WITHOUT 04/04/2020 [facility] Ot G47. 30 SLEEP APNEA, UNSPECIFIED 04/04/2020 [facility] I10 ESSENTIAL (PRIMARY) HYPERTENSION 04/04/2020 [facility] I25. 10 ATHSCL HEART DISEASE OF [place] CORONARY 04/04/2020 [facility] K55.039 ACUTE ISCHEMIA OF LARGE INTESTINE, EXTEN 04/04/2020 [facility] N17. 9 ACUTE KIDNEY FAILURE, UNSPECIFIED 04/04/2020 [facility] N42. 9 DISORDER OF PROSTATE, UNSPECIFIED 04/04/2020 [facility] R54 AGE-RELATED PHYSICAL DEBILITY 04/04/2020 [facility] R65. 21 SEVERE SEPSIS WITH SEPTIC SHOCK 04/04/2020 [facility] Z68. 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 ACQUIRED ABSENCE OF OTHER SPECIFIED PART 04/04/2020 [facility]. 0 PRESENCE OF CARDIAC PACEMAKER 04/04/2020 [facility] Z[facility]. 1 PRESENCE OF AORTOCORONARY BYPASS GRAFT 04/04/2020 [facility] Z95.828 PRESENCE OF OTHER VASCULAR IMPLANTS AND 04/06/2020 [facility] REDDY Ot A41. 9 SEPSIS, UNSPECIFIED ORGANISM 04/06/2020 [facility] E11. 42 TYPE 2 DIABETES MELLITUS WITH DIABETIC P 04/06/2020 [facility] E11. 51 TYPE 2 DIABETES W DIABETIC PERIPHERAL AN 04/06/2020 [facility] E11. 65 TYPE 2 DIABETES MELLITUS WITH HYPERGLYCE 04/06/2020 [facility] E66. 9 OBESITY, UNSPECIFIED 04/06/2020 [facility] Ot E78. 00 PURE HYPERCHOLESTEROLEMIA, UNSPECIFIED 04/06/2020 [facility] E86. 0 DEHYDRATION 04/06/2020 [facility] E87. 2 ACIDOSIS 04/06/2020 [facility] Ot F32. 9 MAJOR DEPRESSIVE DISORDER, SINGLE EPISOD 04/06/2020 [facility] G43.909 MIGRAINE, UNSP, NOT INTRACTABLE, WITHOUT 04/06/2020 [facility] Ot G47. 30 SLEEP APNEA, UNSPECIFIED 04/06/2020 [facility] Ot I10 ESSENTIAL (PRIMARY) HYPERTENSION 04/06/2020 [facility] I25. 10 ATHSCL HEART DISEASE OF [place] CORONARY 04/06/2020 [facility] Ot K55.039 ACUTE ISCHEMIA OF LARGE INTESTINE, EXTEN 04/06/2020 [facility] DO Ot N17. 9 ACUTE KIDNEY FAILURE, UNSPECIFIED 04/06/2020 [facility] N42. 9 DISORDER OF PROSTATE, UNSPECIFIED 04/06/2020 [facility] R54 AGE-RELATED PHYSICAL DEBILITY 04/06/2020 [facility] Ot R65. 21 SEVERE SEPSIS WITH SEPTIC SHOCK 04/06/2020 [facility] Ot Z68. 33 BODY MASS INDEX (BMI) 33.0-33.9, ADULT 04/06/2020 [facility] Ot Z79. 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 49 ACQUIRED ABSENCE OF OTHER SPECIFIED PART 04/06/2020 [facility] Z95. 0 PRESENCE OF CARDIAC PACEMAKER 04/06/2020 [facility] Z95. 1 PRESENCE OF AORTOCORONARY BYPASS GRAFT 04/06/2020 [facility] Z95.828 PRESENCE OF OTHER VASCULAR IMPLANTS AND 04/07/2020 [facility] A41. 9 SEPSIS, UNSPECIFIED ORGANISM 04/07/2020 [facility] E11. 42 TYPE 2 DIABETES MELLITUS WITH DIABETIC P 04/07/2020 [facility] E11. 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 65 TYPE 2 DIABETES MELLITUS WITH HYPERGLYCE 04/07/2020 [facility] E66. 9 OBESITY, UNSPECIFIED 04/07/2020 [facility] E78. 00 PURE HYPERCHOLESTEROLEMIA, UNSPECIFIED 04/07/2020 [facility] E86. 0 DEHYDRATION 04/07/2020 [facility] E87. 2 ACIDOSIS 04/07/2020 [facility] F32. 9 MAJOR DEPRESSIVE DISORDER, SINGLE EPISOD 04/07/2020 [facility] G43.909 MIGRAINE, UNSP, NOT INTRACTABLE, WITHOUT 04/07/2020 [facility] G47. 30 SLEEP APNEA, UNSPECIFIED 04/07/2020 [facility] I10 ESSENTIAL (PRIMARY) HYPERTENSION 04/07/2020 [facility] I25. 10 ATHSCL HEART DISEASE OF [place] CORONARY 04/07/2020 [facility] K55.039 ACUTE ISCHEMIA OF LARGE INTESTINE, EXTEN 04/07/2020 [facility] N17. 9 ACUTE KIDNEY FAILURE, UNSPECIFIED 04/07/2020 [facility] N42. 9 DISORDER OF PROSTATE, UNSPECIFIED 04/07/2020 [facility] REDDY Ot R54 AGE-RELATED PHYSICAL DEBILITY 04/07/2020 [facility] R65. 21 SEVERE SEPSIS WITH SEPTIC SHOCK 04/07/2020 [facility] Ot Z68. 33 BODY MASS INDEX (BMI) 33.0-33.9, ADULT 04/07/2020 [facility] Z79. 84 USP (CURRENT) USE OF ORAL HYPOGLYC 04/07/2020 [facility] Z87.891 PERSONAL HISTORY OF NICOTINE DEPENDENCE 04/07/2020 [facility] Z89.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 04/07/2020 [facility] Ot Z90. 49 ACQUIRED ABSENCE OF OTHER SPECIFIED PART 04/07/2020 [facility] Z95. 0 PRESENCE OF CARDIAC PACEMAKER 04/07/2020 [facility] Z95. 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 65 TYPE 2 DIABETES MELLITUS WITH HYPERGLYCE 04/08/2020 [facility] RED[facility] Ot E66. 9 OBESITY, UNSPECIFIED 04/08/2020 [facility] REDDY Ot E78. 00 PURE HYPERCHOLESTEROLEMIA, UNSPECIFIED 04/08/2020 [place] REDDY Ot E86. 0 DEHYDRATION 04/08/2020 [place] REDDY Ot E87. 2 ACIDOSIS 04/08/2020 [facility] REDDY Ot F32. 9 MAJOR DEPRESSIVE DISORDER, SINGLE EPISOD 04/08/2020 [facility] REDDY Ot G43.909 MIGRAINE, UNSP, NOT INTRACTABLE, WITHOUT 04/08/2020 [facility] Ot G47. 30 SLEEP APNEA, UNSPECIFIED 04/08/2020 [facility] REDDY Ot I10 ESSENTIAL (PRIMARY) HYPERTENSION 04/08/2020 [place] [facility] REDDY Ot I25. 10 ATHSCL HEART DISEASE OF [place] CORONARY 04/08/2020 [facility] Ot K55.039 ACUTE ISCHEMIA OF LARGE INTESTINE, EXTEN 04/08/2020 [facility] REDDY Ot N17. 9 ACUTE KIDNEY FAILURE, UNSPECIFIED 04/08/2020 [facility] N42. 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 21 SEVERE SEPSIS WITH SEPTIC SHOCK 04/08/2020 [facility] Z68. 33 BODY MASS INDEX (BMI) 33.0-33.9, ADULT 04/08/2020 [facility] Z79. 84 USP (CURRENT) USE OF ORAL HYPOGLYC 04/08/2020 [facility] Z87.891 PERSONAL HISTORY OF NICOTINE DEPENDENCE 04/08/2020 [facility] Z89.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 04/08/2020 [facility] Z90. 49 ACQUIRED ABSENCE OF OTHER SPECIFIED PART 04/08/2020 [facility] Z95. 0 PRESENCE OF CARDIAC PACEMAKER 04/08/2020 [facility] Z95. 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 9 SEPSIS, UNSPECIFIED ORGANISM 04/08/2020 [facility] E11. 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 65 TYPE 2 DIABETES MELLITUS WITH HYPERGLYCE 04/08/2020 [facility] Ot E66. 9 OBESITY, UNSPECIFIED 04/08/2020 [facility] E78. 00 PURE HYPERCHOLESTEROLEMIA, UNSPECIFIED 04/08/2020 [facility] REDDY Ot E86. 0 DEHYDRATION 04/08/2020 [facility] Ot E87. 2 ACIDOSIS 04/08/2020 [facility] RED[facility] Ot F32. 9 MAJOR DEPRESSIVE DISORDER, SINGLE EPISOD 04/08/2020 [facility] REDDY Ot G43.909 MIGRAINE, UNSP, NOT INTRACTABLE, WITHOUT 04/08/2020 [facility] REDDY Ot G47. 30 SLEEP APNEA, UNSPECIFIED 04/08/2020 [facility] REDDY Ot I10 ESSENTIAL (PRIMARY) HYPERTENSION 04/08/2020 [facility] REDDY Ot I25. 10 ATHSCL HEART DISEASE OF [place] CORONARY 04/08/2020 [facility] Ot K55.039 ACUTE ISCHEMIA OF LARGE INTESTINE, EXTEN 04/08/2020 [facility] DO Ot N17. 9 ACUTE KIDNEY FAILURE, UNSPECIFIED 04/08/2020 [facility] Ot N42. 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 21 SEVERE SEPSIS WITH SEPTIC SHOCK 04/08/2020 [facility] Ot Z68. 33 BODY MASS INDEX (BMI) 33.0-33.9, ADULT 04/08/2020 [facility] Ot Z79. 84 USP (CURRENT) USE OF ORAL HYPOGLYC 04/08/2020 [facility] Ot Z87.891 PERSONAL HISTORY OF NICOTINE DEPENDENCE 04/08/2020 [facility] Ot Z89.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 04/08/2020 [facility] DO Ot Z90. 49 ACQUIRED ABSENCE OF OTHER SPECIFIED PART 04/08/2020 [facility] REDDY Ot Z95. 0 PRESENCE OF CARDIAC PACEMAKER 04/08/2020 [facility] Ot Z95. 1 PRESENCE OF AORTOCORONARY BYPASS GRAFT 04/08/2020 [facility] REDDY Ot Z95.828 PRESENCE OF OTHER VASCULAR IMPLANTS AND Procedures Code Description Performed By Per cheri On 02.2604/10/2011 00.40 PROC EDURE ON SINGLE VESSEL 05/04/2012 39.29 VASC SHUNT BYPASS NEC 05/04/2012 39.50 KAVEH OPLASTY OF OTHER NON- CORONARY VESSEL 05/04/2012 83.44 OTHE R FASCIECTOMY 05/04/2012 84.11 TOE AMPUTATION 05/04/2012 38.93 VENO US CATHETERIZATION NEC 05/06/2012 84.15 BELO W KNEE AMPUTAT NEC 05/09/2012 57.32 CYST OSCOPY NEC 05/20/2012 [id number] RE SECTION OF RIGHT LARGE INTESTINE, OPEN 05/07/[id number] ROCK[place]LL OF STOMACH WITH DRAINAGE DEVICE 02/26/2020 [id number] IN SERTION OF INFUSION DEV INTO SUP VENA 03/30/2020 Results Test Result Range Complete blood count [...] OF GROWTH Isolated NRG Bacterial blood culture [id number] NRG Bacterial blood culture - 10/09/16 18:08 FREE TEXT EXTERNAL PROBABLE BURKHOLDERIA CEPACIA G ROUP NRG QUANTITY OF GROWTH Isolated NRG Bacterial blood culture [id number] NR FREE TEXT ENTRY 2 SEE COMMENTS [facility] Bacterial susceptibility panel - 6 [...] 186 mg/dL <150 LDL-CHOLESTEROL 132 mg/dL (calc) NR CHOL/HDLC RATIO 5.6 (calc) <5.0 NON HDL CHOLESTEROL 164 mg/dL (calc) <13 0 Streptococcus pyogenes antigen detection - 02/25/20 20:52 Streptococcus pyogenes antigen detection NEGATIVE NEGATIVE Influenza virus A and B antigen detectio n - 02/25/20 20:52 FLU RESULT NEGATIVE FOR INFLUENZA A AND B ANTIGENS BY IA NR Bacterial throat culture - 02/25/20 20:5 2 Bacterial throat culture NBS [facility] Complete blood count (CBC) with [...] ine sediment by light microscopy FEW NRG Methicillin resistant Staphylococcus aur eus (MRSA) screening culture - 03/30/20 00:00 Methicillin resistant Staphylococcus aureus (MRSA) scr eening culture NEG NRG Complete blood count (CBC) with automate d white blood cell (WBC) differential - 03/30/20 19:32 Blood leukocytes automated count (number/volume) 17.2 10*3/uL 4.3-11.0 Blood erythrocytes automated count (number/volume) 4.16 10*6/uL 4.35-5.85 Venous blood hemoglobin measurement (mass/volume) [...] 10.0- 14.5 Automated blood platelet count (count/volume) 178 10*3/uL 130-400 Automated blood platelet mean volume measurement 10.4 [foz_us] 7.4-10.4 Automated blood neutrophils/100 leukocytes 92 % 42-75 Automated blood lymphocytes/100 leukocytes 4 % 12-44 Blood monocytes/100 leukocytes 4 % 0-12 Automated blood eosinophils/100 leukocytes 0 % 0-10 Automated blood basophils/100 leukocytes 0 % 0-10 Blood neutrophils automated count (number/volume) 15.8 10*3 1.8-7.8 Blood lymphocytes automated count (number/volume) 0.7 10*3 1.0-4.0 Blood monocytes automated count (number/volume) 0. 7 10*3 0.0-1.0 Automated eosinophil count 0.0 10*3/uL 0 .0-0.3 Automated blood basophil count (count/volume) 0.0 10*3/uL 0.0-0.1 PT panel in platelet poor plasma by coag ulation assay - 03/30/20 19:32 Prothrombin time (PT) in platelet poor plasma by coagu lation assay 14.4 s 12.2-14.7 INR in platelet poor plasma or blood by coagulation as say 1.1 0.8-1.4 Activated partial thromboplastin time (a PTT) in platelet poor plasma bycoagulation assay - 03/30/20 19:32 Activated partial thromboplastin time (a PTT) in platelet poor plasma bycoagulation assay 27 s 24-35 Manual absolute plasma cell count - 01/18 19:32 Blood monocytes/100 leukocytes 3 % NRG Manual blood segmented neutrophils/100 leukocytes 83 % NRG Blood band neutrophils/100 leukocytes 7 % NRG Manual blood lymphocytes/100 leukocytes 4 % NRG Manual eosinophils/100 leukocytes in nose 0 % NRG Manual blood basophils/100 leukocytes 0 % NRG Blood lymphocytes variant/100 leukocytes 3 % NRG Blood polychromasia detection by light microscopy SLIGHT NRG Blood anisocytosis detection by light microscopy S LIGHT NRG Blood macrocytes detection by light microscopy SLI GHT NRG Blood lactic acid measurement (moles/vol ume) - 03/30/20 19:32 Blood lactic acid measurement (moles/volume) 4.22 mmol/L 0.50-2.00 Comprehensive metabolic panel - 03/30/20 19:32 Serum or plasma sodium measurement (moles/volume) 131 mmol/L 135-145 Serum or plasma potassium measurement (moles/volume) 4.8 mmol/L 3.6-5.0 Serum or plasma chloride measurement (moles/volume) 90 mmol/L 98-107 Carbon dioxide 23 mmol/L 21-32 Serum or plasma anion gap determination (moles/volume) 18 mmol/L 5-14 Serum or plasma urea nitrogen measurement (mass/volume ) 35 mg/dL 7-18 Serum or plasma creatinine measurement (mass/volume) 2.15 mg/dL 0.60-1.30 Serum or plasma urea nitrogen/creatinine mass ratio 16 NRG Serum or plasma creatinine measurement w ith calculation of estimated glomerular filtration rate 29 NRG Serum or plasma glucose measurement (mass/volume) 485 mg/dL 70-105 Serum or plasma calcium measurement (mass/volume) 8.8 mg/dL 8.5-10.1 Serum or plasma total bilirubin measurement (mass/volu me) 0.6 mg/dL 0.1-1.0 Serum or plasma alkaline phosphatase lucien surement (enzymatic activity/volume) 69 U/L 40-136 Serum or plasma aspartate aminotransfera se measurement (enzymatic activity/volume) 22 U/L 5-34 Serum or plasma alanine aminotransferase measurement (enzymatic activity/volume) 29 U/L 0-55 Serum or plasma protein measurement (mass/volume) 6.8 g/dL 6.4-8.2 Serum or plasma albumin measurement (mass/volume) 3.9 g/dL 3.2-4.5 CALCIUM CORRECTED 8.9 mg/dL 8.5-10.1 Lipase - 03/30/20 19:32 Lipase 92 U/L 8-78 Serum or plasma C reactive protein measu rement (mass/volume) - 03/30/20 19:32 Serum or plasma C reactive protein measurement (mass/v olume) 12.76 mg/dL 0.00-0.50 PROCALCITONIN (PCT) - 03/30/20 19:32 PROCALCITONIN (PCT) 14.18 ng/mL <0.10 Bacterial blood culture - 03/30/20 19:32 Bacterial blood culture NG NRG Occult blood panel - gastric fluid - 01/18 19:54 Gastric fluid gastrointestinal hemoglobin detection POSITIVE NEGATIVE Bacterial blood culture - 03/30/20 19:59 Bacterial blood culture NG NRG Capillary blood glucose measurement by g lucometer (mass/volume) - 03/30/20 20:54 Capillary blood glucose measurement by glucometer (mas s/volume) 408 mg/dL 70-110 Serum or plasma lactate measurement (mol es/volume) - 03/30/20 22:00 Serum or plasma lactate measurement (moles/volume) 3.80 mmol/L 0.50-2.00 Capillary blood glucose measurement by g lucometer (mass/volume) - 03/30/20 22:17 Capillary blood glucose measurement by glucometer (mas s/volume) 274 mg/dL 70-110 Complete urinalysis with reflex to cultu re - 03/30/20 23:59 Urine color determination YELLOW NRG Urine clarity determination CLEAR NR G Urine pH measurement by test strip 5.5 5-9 Specific gravity of urine by test strip 1.025 1.016-1.022 Urine protein assay by test strip, semi-quantitative 1+ NEGATIVE Urine glucose detection by automated test strip 2+ NEGATIVE Erythrocytes detection in urine sediment by [...] with reflex to culture CULTURE PENDING NRG Amorphous sediment detection in urine sediment by ligh t microscopy LARGE KAMILAH URATES NRG Bacterial urine culture - 03/30/20 23:59 Bacterial urine culture NG NRG Serum or plasma lactate measurement (mol es/volume) - 03/31/20 00:34 Serum or plasma lactate measurement (moles/volume) 2.12 mmol/L 0.50-2.00 Capillary blood glucose measurement by g lucometer (mass/volume) - 03/31/20 00:45 Capillary blood glucose measurement by glucometer (mas s/volume) 364 mg/dL 70-110 Complete blood count (CBC) with automate d white blood cell (WBC) differential - 03/31/20 02:23 Blood leukocytes automated count (number/volume) 17.9 10*3/uL 4.3-11.0 Blood erythrocytes automated count (number/volume) 3.66 10*6/uL 4.35-5.85 Venous blood hemoglobin measurement (mass/volume) 10.9 g/dL 13.3-17.7 Blood hematocrit (volume fraction) 33 % 40-54 Automated erythrocyte mean corpuscular volume 90 [ foz_us] 80-99 Automated erythrocyte mean corpuscular h emoglobin (mass per erythrocyte) 30 pg 25-34 Automated erythrocyte mean corpuscular h emoglobin concentration measurement (mass/volume) 33 g/dL 32-36 Automated erythrocyte distribution width ratio 13. 9 % 10.0- 14.5 Automated blood platelet count (count/volume) 180 10*3/uL 130-400 Automated blood platelet mean volume measurement 10.3 [foz_us] 7.4-10.4 Automated blood neutrophils/100 leukocytes 89 % 42-75 Automated blood lymphocytes/100 leukocytes 5 % 12-44 Blood monocytes/100 leukocytes 6 % 0-12 Automated blood eosinophils/100 leukocytes 0 % 0-10 Automated blood basophils/100 leukocytes 0 % 0-10 Blood neutrophils automated count (number/volume) 15.9 10*3 1.8-7.8 Blood lymphocytes automated count (number/volume) 0.9 10*3 1.0-4.0 Blood monocytes automated count (number/volume) 1. 0 10*3 0.0-1.0 Automated eosinophil count 0.0 10*3/uL 0 .0-0.3 Automated blood basophil count (count/volume) 0.0 10*3/uL 0.0-0.1 Comprehensive metabolic panel - 03/31/20 02:23 Serum or plasma sodium measurement (moles/volume) 133 mmol/L 135-145 Serum or plasma potassium measurement (moles/volume) 4.1 mmol/L 3.6-5.0 Serum or plasma chloride measurement (moles/volume) 98 mmol/L 98-107 Carbon dioxide 23 mmol/L 21-32 Serum or plasma anion gap determination (moles/volume) 12 mmol/L 5-14 Serum or plasma urea nitrogen measurement (mass/volume ) 35 mg/dL 7-18 Serum or plasma creatinine measurement (mass/volume) 1.86 mg/dL 0.60-1.30 Serum or plasma urea nitrogen/creatinine mass ratio 19 NRG Serum or plasma creatinine measurement w ith calculation of estimated glomerular filtration rate 35 NRG Serum or plasma glucose measurement (mass/volume) 321 mg/dL 70-105 Serum or plasma calcium measurement (mass/volume) 7.7 mg/dL 8.5-10.1 Serum or plasma total bilirubin measurement (mass/volu me) 0.7 mg/dL 0.1-1.0 Serum or plasma alkaline phosphatase lucien surement (enzymatic activity/volume) 72 U/L 40-136 Serum or plasma aspartate aminotransfera se measurement (enzymatic activity/volume) 20 U/L 5-34 Serum or plasma alanine aminotransferase measurement (enzymatic activity/volume) 22 U/L 0-55 Serum or plasma protein measurement (mass/volume) 5.7 g/dL 6.4-8.2 Serum or plasma albumin measurement (mass/volume) 3.3 g/dL 3.2-4.5 CALCIUM CORRECTED 8.3 mg/dL 8.5-10.1 Serum or plasma lactate measurement (mol es/volume) - 03/31/20 02:23 Serum or plasma lactate measurement (moles/volume) 2.00 mmol/L 0.50-2.00 PT panel in platelet poor plasma by coag ulation assay - 03/31/20 02:23 Prothrombin time (PT) in platelet poor plasma by coagu lation assay 16.9 s 12.2-14.7 INR in platelet poor plasma or blood by coagulation as say 1.3 0.8-1.4 Activated partial thromboplastin time (a PTT) in platelet poor plasma bycoagulation assay - 03/31/20 02:23 Activated partial thromboplastin time (a PTT) in platelet poor plasma bycoagulation assay 114 s 24-35 Serum or plasma phosphate measurement (m ass/volume) - 03/31/20 02:23 Serum or plasma phosphate measurement (mass/volume) 3.4 mg/dL 2.3-4.7 Magnesium - 03/31/20 02:23 Magnesium 1.7 mg/dL 1.6-2.4 Serum or plasma C reactive protein measu rement (mass/volume) - 03/31/20 02:23 Serum or plasma C reactive protein measurement (mass/v olume) 18.83 mg/dL 0.00-0.50 Capillary blood glucose measurement by g lucometer (mass/volume) - 03/31/20 04:08 Capillary blood glucose measurement by glucometer (mas s/volume) 263 mg/dL 70-110 Capillary blood glucose measurement by g lucometer (mass/volume) - 03/31/20 08:34 Capillary blood glucose measurement by glucometer (mas s/volume) 172 mg/dL 70-110 Activated partial thromboplastin time (a PTT) in platelet poor plasma bycoagulation assay - 03/31/20 09:50 Activated partial thromboplastin time (a PTT) in platelet poor plasma bycoagulation assay 85 s 24-35 Capillary blood glucose measurement by g lucometer (mass/volume) - 03/31/20 11:23 Capillary blood glucose measurement by glucometer (mas s/volume) 181 mg/dL 70-110 Activated partial thromboplastin time (a PTT) in platelet poor plasma bycoagulation assay - 03/31/20 15:45 Activated partial thromboplastin time (a PTT) in platelet poor plasma bycoagulation assay 73 s 24-35 Capillary blood glucose measurement by g lucometer (mass/volume) - 03/31/20 15:47 Capillary blood glucose measurement by glucometer (mas s/volume) 155 mg/dL 70-110 Capillary blood glucose measurement by g lucometer (mass/volume) - 03/31/20 19:27 Capillary blood glucose measurement by glucometer (mas s/volume) 148 mg/dL 70-110 Capillary blood glucose measurement by g lucometer (mass/volume) - 03/31/20 22:52 Capillary blood glucose measurement by glucometer (mas s/volume) 162 mg/dL 70-110 Complete blood count (CBC) with automate d white blood cell (WBC) differential - 04/01/20 03:05 Blood leukocytes automated count (number/volume) 8.5 10*3/uL 4.3-11.0 Blood erythrocytes automated count (number/volume) 3.33 10*6/uL 4.35-5.85 Venous blood hemoglobin measurement (mass/volume) 10.1 g/dL 13.3-17.7 Blood hematocrit (volume fraction) 31 % 40-54 Automated erythrocyte mean corpuscular volume 92 [ foz_us] 80-99 Automated erythrocyte mean corpuscular h emoglobin (mass per erythrocyte) 30 pg 25-34 Automated erythrocyte mean corpuscular h emoglobin concentration measurement (mass/volume) 33 g/dL 32-36 Automated erythrocyte distribution width ratio 14. 2 % 10.0- 14.5 Automated blood platelet count (count/volume) 128 10*3/uL 130-400 Automated blood platelet mean volume measurement 10.0 [foz_us] 7.4-10.4 Automated blood neutrophils/100 leukocytes 86 % 42-75 Automated blood lymphocytes/100 leukocytes 8 % 12-44 Blood monocytes/100 leukocytes 5 % 0-12 Automated blood eosinophils/100 leukocytes 1 % 0-10 Automated blood basophils/100 leukocytes 0 % 0-10 Blood neutrophils automated count (number/volume) 7.3 10*3 1.8-7.8 Blood lymphocytes automated count (number/volume) 0.7 10*3 1.0-4.0 Blood monocytes automated count (number/volume) 0. 4 10*3 0.0-1.0 Automated eosinophil count 0.1 10*3/uL 0 .0-0.3 Automated blood basophil count (count/volume) 0.0 10*3/uL 0.0-0.1 Activated partial thromboplastin time (a PTT) in platelet poor plasma bycoagulation assay - 04/01/20 03:05 Activated partial thromboplastin time (a PTT) in platelet poor plasma bycoagulation assay 61 s 24-35 Comprehensive metabolic panel - 04/01/20 03:05 Serum or plasma sodium measurement (moles/volume) 135 mmol/L 135-145 Serum or plasma potassium measurement (moles/volume) 3.8 mmol/L 3.6-5.0 Serum or plasma chloride measurement (moles/volume) 105 mmol/L 98-107 Carbon dioxide 22 mmol/L 21-32 Serum or plasma anion gap determination (moles/volume) 8 mmol/L 5-14 Serum or plasma urea nitrogen measurement (mass/volume ) 27 mg/dL 7-18 Serum or plasma creatinine measurement (mass/volume) 1.50 mg/dL 0.60-1.30 Serum or plasma urea nitrogen/creatinine mass ratio 18 NRG Serum or plasma creatinine measurement w ith calculation of estimated glomerular filtration rate 44 NRG Serum or plasma glucose measurement (mass/volume) 178 mg/dL 70-105 Serum or plasma calcium measurement (mass/volume) 7.5 mg/dL 8.5-10.1 Serum or plasma total bilirubin measurement (mass/volu me) 0.6 mg/dL 0.1-1.0 Serum or plasma alkaline phosphatase lucien surement (enzymatic activity/volume) 48 U/L 40-136 Serum or plasma aspartate aminotransfera se measurement (enzymatic activity/volume) 22 U/L 5-34 Serum or plasma alanine aminotransferase measurement (enzymatic activity/volume) 17 U/L 0-55 Serum or plasma protein measurement (mass/volume) 5.0 g/dL 6.4-8.2 Serum or plasma albumin measurement (mass/volume) 2.7 g/dL 3.2-4.5 CALCIUM CORRECTED 8.5 mg/dL 8.5-10.1 Serum or plasma phosphate measurement (m ass/volume) - 04/01/20 03:05 Serum or plasma phosphate measurement (mass/volume) 3.1 mg/dL 2.3-4.7 Magnesium - 04/01/20 03:05 Magnesium 2.0 mg/dL 1.6-2.4 Capillary blood glucose measurement by g lucometer (mass/volume) - 04/01/20 07:59 Capillary blood glucose measurement by glucometer (mas s/volume) 196 mg/dL 70-110 Activated partial thromboplastin time (a PTT) in platelet poor plasma bycoagulation assay - 04/01/20 10:10 Activated partial thromboplastin time (a PTT) in platelet poor plasma bycoagulation assay 90 s 24-35 Capillary blood glucose measurement by g lucometer (mass/volume) - 04/01/20 11:25 Capillary blood glucose measurement by glucometer (mas s/volume) 172 mg/dL 70-110 Capillary blood glucose measurement by g lucometer (mass/volume) - 04/01/20 15:41 Capillary blood glucose measurement by glucometer (mas s/volume) 190 mg/dL 70-110 Activated partial thromboplastin time (a PTT) in platelet poor plasma bycoagulation assay - 04/01/20 16:50 Activated partial thromboplastin time (a PTT) in platelet poor plasma bycoagulation assay 73 s 24-35 Capillary blood glucose measurement by g lucometer (mass/volume) - 04/01/20 19:39 Capillary blood glucose measurement by glucometer (mas s/volume) 153 mg/dL 70-110 Capillary blood glucose measurement by g lucometer (mass/volume) - 04/01/20 23:35 Capillary blood glucose measurement by glucometer (mas s/volume) 151 mg/dL 70-110 Complete blood count (CBC) with automate d white blood cell (WBC) differential - 04/02/20 02:45 Blood leukocytes automated count (number/volume) 6.9 10*3/uL 4.3-11.0 Blood erythrocytes automated count (number/volume) 3.28 10*6/uL 4.35-5.85 Venous blood hemoglobin measurement (mass/volume) 9.7 g/dL 13.3-17.7 Blood hematocrit (volume fraction) 30 % 40-54 Automated erythrocyte mean corpuscular volume 93 [ foz_us] 80-99 Automated erythrocyte mean corpuscular h emoglobin (mass per erythrocyte) 30 pg 25-34 Automated erythrocyte mean corpuscular h emoglobin concentration measurement (mass/volume) 32 g/dL 32-36 Automated erythrocyte distribution width ratio 14. 0 % 10.0- 14.5 Automated blood platelet count (count/volume) 138 10*3/uL 130-400 Automated blood platelet mean volume measurement 10.4 [foz_us] 7.4-10.4 Automated blood neutrophils/100 leukocytes 81 % 42-75 Automated blood lymphocytes/100 leukocytes 12 % 12-44 Blood monocytes/100 leukocytes 5 % 0-12 Automated blood eosinophils/100 leukocytes 3 % 0-10 Automated blood basophils/100 leukocytes 0 % 0-10 Blood neutrophils automated count (number/volume) 5.5 10*3 1.8-7.8 Blood lymphocytes automated count (number/volume) 0.8 10*3 1.0-4.0 Blood monocytes automated count (number/volume) 0. 4 10*3 0.0-1.0 Automated eosinophil count 0.2 10*3/uL 0 .0-0.3 Automated blood basophil count (count/volume) 0.0 10*3/uL 0.0-0.1 Activated partial thromboplastin time (a PTT) in platelet poor plasma bycoagulation assay - 04/02/20 02:45 Activated partial thromboplastin time (a PTT) in platelet poor plasma bycoagulation assay 65 s 24-35 Comprehensive metabolic panel - 04/02/20 02:45 Serum or plasma sodium measurement (moles/volume) 140 mmol/L 135-145 Serum or plasma potassium measurement (moles/volume) 3.8 mmol/L 3.6-5.0 Serum or plasma chloride measurement (moles/volume) 109 mmol/L 98-107 Carbon dioxide 22 mmol/L 21-32 Serum or plasma anion gap determination (moles/volume) 9 mmol/L 5-14 Serum or plasma urea nitrogen measurement (mass/volume ) 25 mg/dL 7-18 Serum or plasma creatinine measurement (mass/volume) 1.40 mg/dL 0.60-1.30 Serum or plasma urea nitrogen/creatinine mass ratio 18 NRG Serum or plasma creatinine measurement w ith calculation of estimated glomerular filtration rate 48 NRG Serum or plasma glucose measurement (mass/volume) 161 mg/dL 70-105 Serum or plasma calcium measurement (mass/volume) 7.8 mg/dL 8.5-10.1 Serum or plasma total bilirubin measurement (mass/volu me) 0.8 mg/dL 0.1-1.0 Serum or plasma alkaline phosphatase lucien surement (enzymatic activity/volume) 51 U/L 40-136 Serum or plasma aspartate aminotransfera se measurement (enzymatic activity/volume) 19 U/L 5-34 Serum or plasma alanine aminotransferase measurement (enzymatic activity/volume) 16 U/L 0-55 Serum or plasma protein measurement (mass/volume) 5.1 g/dL 6.4-8.2 Serum or plasma albumin measurement (mass/volume) 2.6 g/dL 3.2-4.5 CALCIUM CORRECTED 8.9 mg/dL 8.5-10.1 Serum or plasma phosphate measurement (m ass/volume) - 04/02/20 02:45 Serum or plasma phosphate measurement (mass/volume) 2.4 mg/dL 2.3-4.7 Magnesium - 04/02/20 02:45 Magnesium 2.1 mg/dL 1.6-2.4 Capillary blood glucose measurement by g lucometer (mass/volume) - 04/02/20 04:17 Capillary blood glucose measurement by glucometer (mas s/volume) 165 mg/dL 70-110 Capillary blood glucose measurement by g lucometer (mass/volume) - 04/02/20 08:06 Capillary blood glucose measurement by glucometer (mas s/volume) 184 mg/dL 70-110 Activated partial thromboplastin time (a PTT) in platelet poor plasma bycoagulation assay - 04/02/20 10:20 Activated partial thromboplastin time (a PTT) in platelet poor plasma bycoagulation assay 111 s 24-35 Capillary blood glucose measurement by g lucometer (mass/volume) - 04/02/20 11:44 Capillary blood glucose measurement by glucometer (mas s/volume) 176 mg/dL 70-110 Capillary blood glucose measurement by g lucometer (mass/volume) - 04/02/20 15:47 Capillary blood glucose measurement by glucometer (mas s/volume) 180 mg/dL 70-110 Activated partial thromboplastin time (a PTT) in platelet poor plasma bycoagulation assay - 04/02/20 18:30 Activated partial thromboplastin time (a PTT) in platelet poor plasma bycoagulation assay 85 s 24-35 Capillary blood glucose measurement by g lucometer (mass/volume) - 04/02/20 19:26 Capillary blood glucose measurement by glucometer (mas s/volume) 169 mg/dL 70-110 Capillary blood glucose measurement by g lucometer (mass/volume) - 04/02/20 23:42 Capillary blood glucose measurement by glucometer (mas s/volume) 180 mg/dL 70-110 Capillary blood glucose measurement by g lucometer (mass/volume) - 04/03/20 00:00 Capillary blood glucose measurement by glucometer (mas s/volume) 201 mg/dL 70-110 Complete blood count (CBC) with automate d white blood cell (WBC) differential - 04/03/20 02:40 Blood leukocytes automated count (number/volume) 6.2 10*3/uL 4.3-11.0 Blood erythrocytes automated count (number/volume) 3.33 10*6/uL 4.35-5.85 Venous blood hemoglobin measurement (mass/volume) 9.8 g/dL 13.3-17.7 Blood hematocrit (volume fraction) 31 % 40-54 Automated erythrocyte mean corpuscular volume 92 [ foz_us] 80-99 Automated erythrocyte mean corpuscular h emoglobin (mass per erythrocyte) 29 pg 25-34 Automated erythrocyte mean corpuscular h emoglobin concentration measurement (mass/volume) 32 g/dL 32-36 Automated erythrocyte distribution width ratio 14. 0 % 10.0- 14.5 Automated blood platelet count (count/volume) 155 10*3/uL 130-400 Automated blood platelet mean volume measurement 9.7 [foz_us] 7.4-10.4 Automated blood neutrophils/100 leukocytes 78 % 42-75 Automated blood lymphocytes/100 leukocytes 11 % 12-44 Blood monocytes/100 leukocytes 9 % 0-12 Automated blood eosinophils/100 leukocytes 2 % 0-10 Automated blood basophils/100 leukocytes 0 % 0-10 Blood neutrophils automated count (number/volume) 4.9 10*3 1.8-7.8 Blood lymphocytes automated count (number/volume) 0.7 10*3 1.0-4.0 Blood monocytes automated count (number/volume) 0. 6 10*3 0.0-1.0 Automated eosinophil count 0.1 10*3/uL 0 .0-0.3 Automated blood basophil count (count/volume) 0.0 10*3/uL 0.0-0.1 Activated partial thromboplastin time (a PTT) in platelet poor plasma bycoagulation assay - 04/03/20 02:40 Activated partial thromboplastin time (a PTT) in platelet poor plasma bycoagulation assay 39 s 24-35 Comprehensive metabolic panel - 04/03/20 02:40 Serum or plasma sodium measurement (moles/volume) 141 mmol/L 135-145 Serum or plasma potassium measurement (moles/volume) 3.8 mmol/L 3.6-5.0 Serum or plasma chloride measurement (moles/volume) 110 mmol/L 98-107 Carbon dioxide 21 mmol/L 21-32 Serum or plasma anion gap determination (moles/volume) 10 mmol/L 5-14 Serum or plasma urea nitrogen measurement (mass/volume ) 23 mg/dL 7-18 Serum or plasma creatinine measurement (mass/volume) 1.30 mg/dL 0.60-1.30 Serum or plasma urea nitrogen/creatinine mass ratio 18 NRG Serum or plasma creatinine measurement w ith calculation of estimated glomerular filtration rate 52 NRG Serum or plasma glucose measurement (mass/volume) 179 mg/dL 70-105 Serum or plasma calcium measurement (mass/volume) 8.0 mg/dL 8.5-10.1 Serum or plasma total bilirubin measurement (mass/volu me) 1.0 mg/dL 0.1-1.0 Serum or plasma alkaline phosphatase lucien surement (enzymatic activity/volume) 58 U/L 40-136 Serum or plasma aspartate aminotransfera se measurement (enzymatic activity/volume) 15 U/L 5-34 Serum or plasma alanine aminotransferase measurement (enzymatic activity/volume) 15 U/L 0-55 Serum or plasma protein measurement (mass/volume) 5.1 g/dL 6.4-8.2 Serum or plasma albumin measurement (mass/volume) 2.6 g/dL 3.2-4.5 CALCIUM CORRECTED 9.1 mg/dL 8.5-10.1 Serum or plasma phosphate measurement (m ass/volume) - 04/03/20 02:40 Serum or plasma phosphate measurement (mass/volume) 2.2 mg/dL 2.3-4.7 Magnesium - 04/03/20 02:40 Magnesium 2.0 mg/dL 1.6-2.4 Capillary blood glucose measurement by g lucometer (mass/volume) - 04/03/20 04:02 Capillary blood glucose measurement by glucometer (mas s/volume) 194 mg/dL 70-110 Capillary blood glucose measurement by g lucometer (mass/volume) - 04/03/20 07:44 Capillary blood glucose measurement by glucometer (mas s/volume) 159 mg/dL 70-110 Capillary blood glucose measurement by g lucometer (mass/volume) - 04/03/20 12:01 Capillary blood glucose measurement by glucometer (mas s/volume) 168 mg/dL 70-110 Capillary blood glucose measurement by g lucometer (mass/volume) - 04/03/20 15:53 Capillary blood glucose measurement by glucometer (mas s/volume) 203 mg/dL 70-110 Capillary blood glucose measurement by g lucometer (mass/volume) - 04/03/20 19:59 Capillary blood glucose measurement by glucometer (mas s/volume) 178 mg/dL 70-110 Capillary blood glucose measurement by g lucometer (mass/volume) - 04/03/20 22:52 Capillary blood glucose measurement by glucometer (mas s/volume) 166 mg/dL 70-110 Complete blood count (CBC) with automate d white blood cell (WBC) differential - 04/04/20 03:24 Blood leukocytes automated count (number/volume) 9.8 10*3/uL 4.3-11.0 Blood erythrocytes automated count (number/volume) 3.59 10*6/uL 4.35-5.85 Venous blood hemoglobin measurement (mass/volume) 10.5 g/dL 13.3-17.7 Blood hematocrit (volume fraction) 33 % 40-54 Automated erythrocyte mean corpuscular volume 92 [ foz_us] 80-99 Automated erythrocyte mean corpuscular h emoglobin (mass per erythrocyte) 29 pg 25-34 Automated erythrocyte mean corpuscular h emoglobin concentration measurement (mass/volume) 32 g/dL 32-36 Automated erythrocyte distribution width ratio 13. 9 % 10.0- 14.5 Automated blood platelet count (count/volume) 190 10*3/uL 130-400 Automated blood platelet mean volume measurement 9.7 [foz_us] 7.4-10.4 Automated blood neutrophils/100 leukocytes 91 % 42-75 Automated blood lymphocytes/100 leukocytes 5 % 12-44 Blood monocytes/100 leukocytes 4 % 0-12 Automated blood eosinophils/100 leukocytes 0 % 0-10 Automated blood basophils/100 leukocytes 0 % 0-10 Blood neutrophils automated count (number/volume) 8.9 10*3 1.8-7.8 Blood lymphocytes automated count (number/volume) 0.5 10*3 1.0-4.0 Blood monocytes automated count (number/volume) 0. 4 10*3 0.0-1.0 Automated eosinophil count 0.0 10*3/uL 0 .0-0.3 Automated blood basophil count (count/volume) 0.0 10*3/uL 0.0-0.1 Comprehensive metabolic panel - 04/04/20 03:24 Serum or plasma sodium measurement (moles/volume) 142 mmol/L 135-145 Serum or plasma potassium measurement (moles/volume) 4.2 mmol/L 3.6-5.0 Serum or plasma chloride measurement (moles/volume) 111 mmol/L 98-107 Carbon dioxide 20 mmol/L 21-32 Serum or plasma anion gap determination (moles/volume) 11 mmol/L 5-14 Serum or plasma urea nitrogen measurement (mass/volume ) 25 mg/dL 7-18 Serum or plasma creatinine measurement (mass/volume) 1.29 mg/dL 0.60-1.30 Serum or plasma urea nitrogen/creatinine mass ratio 19 NRG Serum or plasma creatinine measurement w ith calculation of estimated glomerular filtration rate 53 NRG Serum or plasma glucose measurement (mass/volume) 191 mg/dL 70-105 Serum or plasma calcium measurement (mass/volume) 7.9 mg/dL 8.5-10.1 Serum or plasma total bilirubin measurement (mass/volu me) 1.4 mg/dL 0.1-1.0 Serum or plasma alkaline phosphatase lucien surement (enzymatic activity/volume) 52 U/L 40-136 Serum or plasma aspartate aminotransfera se measurement (enzymatic activity/volume) 13 U/L 5-34 Serum or plasma alanine aminotransferase measurement (enzymatic activity/volume) 14 U/L 0-55 Serum or plasma protein measurement (mass/volume) 5.0 g/dL 6.4-8.2 Serum or plasma albumin measurement (mass/volume) 2.5 g/dL 3.2-4.5 CALCIUM CORRECTED 9.1 mg/dL 8.5-10.1 Serum or plasma phosphate measurement (m ass/volume) - 04/04/20 03:24 Serum or plasma phosphate measurement (mass/volume) 3.0 mg/dL 2.3-4.7 Magnesium - 04/04/20 03:24 Magnesium 2.0 mg/dL 1.6-2.4 Manual absolute plasma cell count - 06/17 03:24 Blood monocytes/100 leukocytes 2 % NRG Manual blood segmented neutrophils/100 leukocytes 89 % NRG Manual blood lymphocytes/100 leukocytes 9 % NRG Capillary blood glucose measurement by g lucometer (mass/volume) - 04/04/20 08:18 Capillary blood glucose measurement by glucometer (mas s/volume) 176 mg/dL 70-110 Capillary blood glucose measurement by g lucometer (mass/volume) - 04/04/20 11:23 Capillary blood glucose measurement by glucometer (mas s/volume) 168 mg/dL 70-110 Capillary blood glucose measurement by g lucometer (mass/volume) - 04/04/20 16:01 Capillary blood glucose measurement by glucometer (mas s/volume) 215 mg/dL 70-110 Capillary blood glucose measurement by g lucometer (mass/volume) - 04/04/20 19:53 Capillary blood glucose measurement by glucometer (mas s/volume) 261 mg/dL 70-110 Capillary blood glucose measurement by g lucometer (mass/volume) - 04/04/20 23:53 Capillary blood glucose measurement by glucometer (mas s/volume) 148 mg/dL 70-110 Capillary blood glucose measurement by g lucometer (mass/volume) - 04/05/20 03:56 Capillary blood glucose measurement by glucometer (mas s/volume) 156 mg/dL 70-110 Complete blood count (CBC) with automate d white blood cell (WBC) differential - 04/05/20 05:00 Blood leukocytes automated count (number/volume) 8.9 10*3/uL 4.3-11.0 Blood erythrocytes automated count (number/volume) 3.42 10*6/uL 4.35-5.85 Venous blood hemoglobin measurement (mass/volume) 10.1 g/dL 13.3-17.7 Blood hematocrit (volume fraction) 31 % 40-54 Automated erythrocyte mean corpuscular volume 92 [ foz_us] 80-99 Automated erythrocyte mean corpuscular h emoglobin (mass per erythrocyte) 30 pg 25-34 Automated erythrocyte mean corpuscular h emoglobin concentration measurement (mass/volume) 32 g/dL 32-36 Automated erythrocyte distribution width ratio 14. 4 % 10.0- 14.5 Automated blood platelet count (count/volume) 202 10*3/uL 130-400 Automated blood platelet mean volume measurement 9.7 [foz_us] 7.4-10.4 Automated blood neutrophils/100 leukocytes 76 % 42-75 Automated blood lymphocytes/100 leukocytes 12 % 12-44 Blood monocytes/100 leukocytes 11 % 0-12 Automated blood eosinophils/100 leukocytes 1 % 0-10 Automated blood basophils/100 leukocytes 0 % 0-10 Blood neutrophils automated count (number/volume) 6.7 10*3 1.8-7.8 Blood lymphocytes automated count (number/volume) 1.0 10*3 1.0-4.0 Blood monocytes automated count (number/volume) 1. 0 10*3 0.0-1.0 Automated eosinophil count 0.1 10*3/uL 0 .0-0.3 Automated blood basophil count (count/volume) 0.0 10*3/uL 0.0-0.1 Comprehensive metabolic panel - 04/05/20 05:00 Serum or plasma sodium measurement (moles/volume) 141 mmol/L 135-145 Serum or plasma potassium measurement (moles/volume) 3.3 mmol/L 3.6-5.0 Serum or plasma chloride measurement (moles/volume) 111 mmol/L 98-107 Carbon dioxide 22 mmol/L 21-32 Serum or plasma anion gap determination (moles/volume) 8 mmol/L 5-14 Serum or plasma urea nitrogen measurement (mass/volume ) 23 mg/dL 7-18 Serum or plasma creatinine measurement (mass/volume) 1.21 mg/dL 0.60-1.30 Serum or plasma urea nitrogen/creatinine mass ratio 19 NRG Serum or plasma creatinine measurement w ith calculation of estimated glomerular filtration rate 57 NRG Serum or plasma glucose measurement (mass/volume) 151 mg/dL 70-105 Serum or plasma calcium measurement (mass/volume) 7.6 mg/dL 8.5-10.1 Serum or plasma total bilirubin measurement (mass/volu me) 0.9 mg/dL 0.1-1.0 Serum or plasma alkaline phosphatase lucien surement (enzymatic activity/volume) 55 U/L 40-136 Serum or plasma aspartate aminotransfera se measurement (enzymatic activity/volume) 17 U/L 5-34 Serum or plasma alanine aminotransferase measurement (enzymatic activity/volume) 13 U/L 0-55 Serum or plasma protein measurement (mass/volume) 4.4 g/dL 6.4-8.2 Serum or plasma albumin measurement (mass/volume) 2.4 g/dL 3.2-4.5 CALCIUM CORRECTED 8.9 mg/dL 8.5-10.1 Capillary blood glucose measurement by g lucometer (mass/volume) - 04/05/20 08:18 Capillary blood glucose measurement by glucometer (mas s/volume) 209 mg/dL 70-110 Capillary blood glucose measurement by g lucometer (mass/volume) - 04/05/20 11:49 Capillary blood glucose measurement by glucometer (mas s/volume) 229 mg/dL 70-110 Capillary blood glucose measurement by g lucometer (mass/volume) - 04/05/20 16:47 Capillary blood glucose measurement by glucometer (mas s/volume) 157 mg/dL 70-110 Capillary blood glucose measurement by g lucometer (mass/volume) - 04/05/20 20:08 Capillary blood glucose measurement by glucometer (mas s/volume) 178 mg/dL 70-110 Capillary blood glucose measurement by g lucometer (mass/volume) - 04/06/20 04:35 Capillary blood glucose measurement by glucometer (mas s/volume) 187 mg/dL 70-110 Complete blood count (CBC) with automate d white blood cell (WBC) differential - 04/06/20 05:40 Blood leukocytes automated count (number/volume) 7.6 10*3/uL 4.3-11.0 Blood erythrocytes automated count (number/volume) 3.49 10*6/uL 4.35-5.85 Venous blood hemoglobin measurement (mass/volume) 10.2 g/dL 13.3-17.7 Blood hematocrit (volume fraction) 32 % 40-54 Automated erythrocyte mean corpuscular volume 92 [ foz_us] 80-99 Automated erythrocyte mean corpuscular h emoglobin (mass per erythrocyte) 29 pg 25-34 Automated erythrocyte mean corpuscular h emoglobin concentration measurement (mass/volume) 32 g/dL 32-36 Automated erythrocyte distribution width ratio 14. 3 % 10.0- 14.5 Automated blood platelet count (count/volume) 217 10*3/uL 130-400 Automated blood platelet mean volume measurement 9.8 [foz_us] 7.4-10.4 Automated blood neutrophils/100 leukocytes 68 % 42-75 Automated blood lymphocytes/100 leukocytes 16 % 12-44 Blood monocytes/100 leukocytes 9 % 0-12 Automated blood eosinophils/100 leukocytes 6 % 0-10 Automated blood basophils/100 leukocytes 0 % 0-10 Blood neutrophils automated count (number/volume) 5.2 10*3 1.8-7.8 Blood lymphocytes automated count (number/volume) 1.2 10*3 1.0-4.0 Blood monocytes automated count (number/volume) 0. 7 10*3 0.0-1.0 Automated eosinophil count 0.4 10*3/uL 0 .0-0.3 Automated blood basophil count (count/volume) 0.0 10*3/uL 0.0-0.1 Comprehensive metabolic panel - 04/06/20 05:40 Serum or plasma sodium measurement (moles/volume) 140 mmol/L 135-145 Serum or plasma potassium measurement (moles/volume) 3.5 mmol/L 3.6-5.0 Serum or plasma chloride measurement (moles/volume) 110 mmol/L 98-107 Carbon dioxide 22 mmol/L 21-32 Serum or plasma anion gap determination (moles/volume) 8 mmol/L 5-14 Serum or plasma urea nitrogen measurement (mass/volume ) 20 mg/dL 7-18 Serum or plasma creatinine measurement (mass/volume) 1.25 mg/dL 0.60-1.30 Serum or plasma urea nitrogen/creatinine mass ratio 16 NRG Serum or plasma creatinine measurement w ith calculation of estimated glomerular filtration rate 55 NRG Serum or plasma glucose measurement (mass/volume) 170 mg/dL 70-105 Serum or plasma calcium measurement (mass/volume) 7.7 mg/dL 8.5-10.1 Serum or plasma total bilirubin measurement (mass/volu me) 0.7 mg/dL 0.1-1.0 Serum or plasma alkaline phosphatase lucien surement (enzymatic activity/volume) 56 U/L 40-136 Serum or plasma aspartate aminotransfera se measurement (enzymatic activity/volume) 13 U/L 5-34 Serum or plasma alanine aminotransferase measurement (enzymatic activity/volume) 13 U/L 0-55 Serum or plasma protein measurement (mass/volume) 4.5 g/dL 6.4-8.2 Serum or plasma albumin measurement (mass/volume) 2.3 g/dL 3.2-4.5 CALCIUM CORRECTED 9.1 mg/dL 8.5-10.1 Magnesium - 04/06/20 05:40 Magnesium 1.8 mg/dL 1.6-2.4 Capillary blood glucose measurement by g lucometer (mass/volume) - 04/06/20 08:42 Capillary blood glucose measurement by glucometer (mas s/volume) 169 mg/dL 70-110 Capillary blood glucose measurement by g lucometer (mass/volume) - 04/06/20 11:57 Capillary blood glucose measurement by glucometer (mas s/volume) 152 mg/dL 70-110 Capillary blood glucose measurement by g lucometer (mass/volume) - 04/06/20 16:58 Capillary blood glucose measurement by glucometer (mas s/volume) 193 mg/dL 70-110 Capillary blood glucose measurement by g lucometer (mass/volume) - 04/06/20 19:30 Capillary blood glucose measurement by glucometer (mas s/volume) 271 mg/dL 70-110 Capillary blood glucose measurement by g lucometer (mass/volume) - 04/06/20 23:47 Capillary blood glucose measurement by glucometer (mas s/volume) 125 mg/dL 70-110 Capillary blood glucose measurement by g lucometer (mass/volume) - 04/07/20 04:07 Capillary blood glucose measurement by glucometer (mas s/volume) 144 mg/dL 70-110 Comprehensive metabolic panel - 04/07/20 05:00 Serum or plasma sodium measurement (moles/volume) 140 mmol/L 135-145 Serum or plasma potassium measurement (moles/volume) 3.3 mmol/L 3.6-5.0 Serum or plasma chloride measurement (moles/volume) 108 mmol/L 98-107 Carbon dioxide 23 mmol/L 21-32 Serum or plasma anion gap determination (moles/volume) 9 mmol/L 5-14 Serum or plasma urea nitrogen measurement (mass/volume ) 15 mg/dL 7-18 Serum or plasma creatinine measurement (mass/volume) 1.10 mg/dL 0.60-1.30 Serum or plasma urea nitrogen/creatinine mass ratio 14 NRG Serum or plasma creatinine measurement w ith calculation of estimated glomerular filtration rate > NRG Serum or plasma glucose measurement (mass/volume) 156 mg/dL 70-105 Serum or plasma calcium measurement (mass/volume) 7.7 mg/dL 8.5-10.1 Serum or plasma total bilirubin measurement (mass/volu me) 0.9 mg/dL 0.1-1.0 Serum or plasma alkaline phosphatase lucien surement (enzymatic activity/volume) 57 U/L 40-136 Serum or plasma aspartate aminotransfera se measurement (enzymatic activity/volume) 14 U/L 5-34 Serum or plasma alanine aminotransferase measurement (enzymatic activity/volume) 11 U/L 0-55 Serum or plasma protein measurement (mass/volume) 4.6 g/dL 6.4-8.2 Serum or plasma albumin measurement (mass/volume) 2.4 g/dL 3.2-4.5 CALCIUM CORRECTED 9.0 mg/dL 8.5-10.1 Capillary blood glucose measurement by g lucometer (mass/volume) - 04/07/20 08:16 Capillary blood glucose measurement by glucometer (mas s/volume) 227 mg/dL 70-110 Capillary blood glucose measurement by g lucometer (mass/volume) - 04/07/20 12:28 Capillary blood glucose measurement by glucometer (mas s/volume) 167 mg/dL 70-110 Capillary blood glucose measurement by g lucometer (mass/volume) - 04/07/20 16:11 Capillary blood glucose measurement by glucometer (mas s/volume) 236 mg/dL 70-110 Capillary blood glucose measurement by g lucometer (mass/volume) - 04/07/20 20:02 Capillary blood glucose measurement by glucometer (mas s/volume) 191 mg/dL 70-110 Comprehensive metabolic panel - 04/08/20 05:21 Serum or plasma sodium measurement (moles/volume) 139 mmol/L 135-145 Serum or plasma potassium measurement (moles/volume) 3.2 mmol/L 3.6-5.0 Serum or plasma chloride measurement (moles/volume) 107 mmol/L 98-107 Carbon dioxide 24 mmol/L 21-32 Serum or plasma anion gap determination (moles/volume) 8 mmol/L 5-14 Serum or plasma urea nitrogen measurement (mass/volume ) 13 mg/dL 7-18 Serum or plasma creatinine measurement (mass/volume) 1.08 mg/dL 0.60-1.30 Serum or plasma urea nitrogen/creatinine mass ratio 12 NRG Serum or plasma creatinine measurement w ith calculation of estimated glomerular filtration rate > NRG Serum or plasma glucose measurement (mass/volume) 146 mg/dL 70-105 Serum or plasma calcium measurement (mass/volume) 7.6 mg/dL 8.5-10.1 Serum or plasma total bilirubin measurement (mass/volu me) 0.8 mg/dL 0.1-1.0 Serum or plasma alkaline phosphatase lucien surement (enzymatic activity/volume) 74 U/L 40-136 Serum or plasma aspartate aminotransfera se measurement (enzymatic activity/volume) 15 U/L 5-34 Serum or plasma alanine aminotransferase measurement (enzymatic activity/volume) 11 U/L 0-55 Serum or plasma protein measurement (mass/volume) 4.3 g/dL 6.4-8.2 Serum or plasma albumin measurement (mass/volume) 2.3 g/dL 3.2-4.5 CALCIUM CORRECTED 9.0 mg/dL 8.5-10.1 Capillary blood glucose measurement by g lucometer (mass/volume) - 04/08/20 11:00 Capillary blood glucose measurement by glucometer (mas s/volume) 277 mg/dL 70-110 Capillary blood glucose measurement by g lucometer (mass/volume) - 04/08/20 16:42 Capillary blood glucose measurement by glucometer (mas s/volume) 293 mg/dL 70-110 Capillary blood glucose measurement by g lucometer (mass/volume) - 04/08/20 20:19 Capillary blood glucose measurement by glucometer (mas s/volume) 210 mg/dL 70-110 Automated blood complete blood count (he mogram) panel - 04/09/20 05:25 Blood leukocytes automated count (number/volume) 6.7 10*3/uL 4.3-11.0 Blood erythrocytes automated count (number/volume) 3.06 10*6/uL 4.35-5.85 Venous blood hemoglobin measurement (mass/volume) 8.9 g/dL 13.3-17.7 Blood hematocrit (volume fraction) 28 % 40-54 Automated erythrocyte mean corpuscular volume 92 [ foz_us] 80-99 Automated erythrocyte mean corpuscular h emoglobin (mass per erythrocyte) 29 pg 25-34 Automated erythrocyte mean corpuscular h emoglobin concentration measurement (mass/volume) 32 g/dL 32-36 Automated erythrocyte distribution width ratio 14. 7 % 10.0- 14.5 Automated blood platelet count (count/volume) 225 10*3/uL 130-400 Automated blood platelet mean volume measurement 9.7 [foz_us] 7.4-10.4 Comprehensive metabolic panel - 04/09/20 05:25 Serum or plasma sodium measurement (moles/volume) 139 mmol/L 135-145 Serum or plasma potassium measurement (moles/volume) 3.5 mmol/L 3.6-5.0 Serum or plasma chloride measurement (moles/volume) 107 mmol/L 98-107 Carbon dioxide 24 mmol/L 21-32 Serum or plasma anion gap determination (moles/volume) 8 mmol/L 5-14 Serum or plasma urea nitrogen measurement (mass/volume ) 13 mg/dL 7-18 Serum or plasma creatinine measurement (mass/volume) 1.25 mg/dL 0.60-1.30 Serum or plasma urea nitrogen/creatinine mass ratio 10 NRG Serum or plasma creatinine measurement w ith calculation of estimated glomerular filtration rate 55 NRG Serum or plasma glucose measurement (mass/volume) 148 mg/dL 70-105 Serum or plasma calcium measurement (mass/volume) 7.5 mg/dL 8.5-10.1 Serum or plasma total bilirubin measurement (mass/volu me) 0.6 mg/dL 0.1-1.0 Serum or plasma alkaline phosphatase lucien surement (enzymatic activity/volume) 78 U/L 40-136 Serum or plasma aspartate aminotransfera se measurement (enzymatic activity/volume) 14 U/L 5-34 Serum or plasma alanine aminotransferase measurement (enzymatic activity/volume) 8 U/L 0-55 Serum or plasma protein measurement (mass/volume) 4.6 g/dL 6.4-8.2 Serum or plasma albumin measurement (mass/volume) 2.3 g/dL 3.2-4.5 CALCIUM CORRECTED 8.9 mg/dL 8.5-10.1 Magnesium - 04/09/20 05:25 Magnesium 1.7 mg/dL 1.6-2.4 Encounters ACCT No. Visit Date/Time Discharge Status Pt. Type Provider Facility Loc./Unit Complaint [id number] 01/30/2020 11:00:00 01/30/2020 23:59: 59 CLS Outpatient SANDOR VICK, SHIRA [facility] [id number] 01/30/2020 11:00:00 Document Registration [id number] 02/25/2020 23:37:00 020 17:20:00 DIS Inpatient MATT VICK, SHANNON Greco [facility] 4TH FEBRILE ILLNESS,ARF,PUL M INFILTRATES,NAUSEA [id number] 05/23/2019 10:00:00 23:59:59 CLS Preadmit NEHAL GREENBERG DO [facility] ENDO RUQ ABD PAIN [id number] 05/11/2019 12:45:00 14:16:00 DIS Inpatient AGATHA PAZ DO, V [facility] IRF DEBILITY [id number] 05/07/2019 14:30:00 12:45:00 DIS Inpatient NEHAL GREENBERG DO [facility] 4TH ISCHEMIC BOWEL [id number] 04/20/2019 09:24:00 23:59:59 CLS Outpatient GREENBERG NEHAL REDDY [facility] CARD ABDOMINAL PAIN [id number] 04/03/2019 06:33:00 23:59:59 CLS Outpatient GREENBERG NEHAL REDDY [facility] RAD RUQ ABD PAIN,RIGHT SHOU LDER PAIN [id number] 02/28/2019 15:48:00 23:59:59 CLS Outpatient INÉS WILLAMS MD [facility] RAD PAIN IN RIGHT HIP [id number] 02/17/2019 19:45:00 17:50:00 DIS Inpatient PK BURNHAM MD [facility] 4TH ABDOMINAL PAIN [id number] 02/12/2019 20:44:00 01:14:00 DIS Emergency JODEE VICK, ANTHONY Julio [facility] ER STOMACH CRAMPING,DIARRH EA [id number] 10/15/2016 11:59:00 11:10:00 DIS Inpatient AGATHA PAZ DO [facility] 4TH SWB-BRONCHITIS COPD [id number] 10/09/2016 22:12:00 11:59:00 DIS Inpatient PK BURNHAM MD [facility] 4TH SEPSIS,PNEUMONIA,HYPOXI A,RENAL INSUFFICIENCY [id number] 11/25/2015 18:25:00 20:33:00 DIS Emergency HIRAM FRAZIER DO [facility] ER MOUTH BLEEDING [id number] 09/01/2015 16:45:00 10:45:00 DIS Inpatient ЕКАТЕРИНА VICK, INÉS R [facility] SURGICAL NAUSEA/VOMITING HEADACH E FEVER CONFUSION [id number] 02/12/2014 22:35:00 014 11:30:00 DIS Outpatient REHANA VICK, WENDY Henriquez [facility] SDC VOMITING, HEMATEMESIS [id number] 10/12/2013 08:22:00 013 14:25:00 DIS Outpatient ЕКАТЕРИНА VICK, INÉS R [facility] REHAB LEG AMPUTEE [id number] 10/05/2013 18:35:00 013 21:40:00 DIS Emergency HAZEL TAYLOR ENRICHMENT SPECIALIST [facility] ER MULTIPLE COMPLAINTS [id number] 03/30/2020 21:06:[address] Inpatient NEHAL GREENBERG DO [facility] 4TH R SIDE PAIN [id number] 01/12/2015 00:00:00 Document Registration [id number] 01/12/2015 00:00:00 Document Registration [id number] 01/12/2015 00:00:00 Document Registration [id number] 12/29/2012 12:41:00 Document Registration [id number] 09/16/2012 10:19:00 Document Registration [id number] 06/23/2012 10:50:00 Document Registration [id number] 06/15/2012 12:10:00 Document Registration [id number] 05/15/2012 15:40:00 Document Registration [id number] 05/01/2012 05:04:00 Document Registration [id number] 12/12/2011 11:47:00 Document Registration [id number] 04/10/2011 08:02:00 Document Registration [id number] 04/09/2011 23:12:00 Document Registration [id number] 11/06/2009 14:04:00 Document Registration
--- NOTE | 2020-04-09 14:17 | Occupational Therapy Eval ---
OT Evaluation-General/PLF Medical Diagnosis Admission Date April 09, 2020 at 10:55 Medical Diagnosis: Terminal Ileitis and colitis Onset Date: March 30, 2020 Therapy Diagnosis Therapy Diagnosis: Weakness, decreased ADL skills Height/Weight Height (Feet): 5 Height (Inches): 9.00 Weight (Pounds): 226 Weight (Ounces): 9.6 Weight Bear Status Weight Bearing Restriction: Weight Bearing/Tolerated Referral Physician: Mirna Ballesteros DO Referral Reason: Activity Tolerance, Self Care, Evaluation/Treatment, Strengthening/ROM Medical History Pertinent Medical History: CABG, CAD, DM, Heart Failure, HTN, Neuropathy, PVD, Smoking Additional Medical History Peripheral neuropathy, hemicolectomy, pacemaker Current History Pt. came to hospital with sepsis and abdominal pain. Underwent surgery secondary to ileitis and colitis of transverse colon. Reviewed History: Yes Social History Home: Single Level Current Living Status: Spouse Entry Into Home: [facility] ADL-Prior Level of Function SCALE: Activities may be completed with or without assistive devices. 3-Aloxlclxmj-eujzlty completes the activity by him/herself with no assistance from a helper. 5-Set-up or Clean-up Assistance-helper sets up or cleans up; patient completes activity. [place] assists only prior to or following the activity. 4-Supervision or Touching Assistance-helper provides verbal cues and/or touching/steadying and/or contact guard assistance as patient completes activity. Assistance may be provided throughout the activity or intermittently. 3-Partial/Moderate Assistance-helper does LESS THAN HALF the effort. [place] lifts, holds or supports trunk or limbs, but provides less than half the effort. 2-Substantial/Maximal Assistance-helper does MORE THAN HALF the effort. [place] lifts or holds trunk or limbs and provides more than half the effort. 3-Govzawbqp-niqnfh does ALL the effort. Patient does none of the effort to complete the activity. Or, the assistance of 2 or more helpers is required for the patient to complete the activity. If activity was not attempted, code reason: 7-Patient Refused. 9-Not Applicable-not attempted and the patient did not perform the activity before the current illness, exacerbation or injury. 10-Not Attempted due to Environmental Limitations-(lack of equipment, weather restraints, etc.). 88-Not Attempted due to Medical Conditions or Safety Concerns. ADL PLOF Comments Pt. reports that he is independent at home with daily tasks. Pt. reports that he has poor vision, but can see some things depending on how far they are. Self Care: Unknown Functional Cognition: Unknown DME/Equipment: Bath Chair, Shower DME/Equipment Comments Pt. reports that he has a wheelchair, walker, and slide board at home. OT Current Status Subjective Pt. reports that his abdomen area feels "tight" due to luis and recent surgery. No pain reported. Appearance Pt. in bed. Agrees to work with therapy. Mental Status/Objective Patient Orientation: Person, Place Attachments: IV, Oxygen Current Glasses/Contacts: Yes Hand Dominance: Right Upper Extremity ROM WFL ADL-Treatment Eating (QC): 10 Oral Hygiene (QC): 10 Shower/Bathe Self (QC): 10 Upper Body Dressing (QC): 4 (SBA and increased time.) Lower Body Dressing (QC): 2 (Max assist to thread shorts over feet and over hips.) On/Off Footwear (QC): 2 (Pt. requires mod assist to don prosthetic leg. Pt. requires mod assist to don other slipper sock and shoe.) Toileting Hygiene (QC): 7 Other Treatments Pt. participated in co-treatment with PT/OT due to level of skilled care required. PT facilitated transfer training, LE mobility, and balance, while OT facilitated UE placement during transfers, and ADL skills. Pt. transferred sit- supine with max x 2. Transferred to wheelchair from bed via slide board with max x 1-2. At this point, pt. did not have prosthetic LE on. Pt. taken to rehab where he completed dressing tasks. Pt. verbalizes that he is independent at home, but that he is unable to see very well. When prompted in hospital to complete dressing tasks, pt. reports that his vision limits him. Pt. reports that he uses his slide board when he does not have prosthetic leg on, but uses walker when he does. Pt. states that he walks all over his home with walker. Pt. reports that he lives with his spouse, and grown children, and grandchildren. Pt. taken to therapy gym and stood at parallel bars x 3 stands with max x 2. Pt. able to stand approximately 1 minute each time. Pt. taken back to room and all needs are met up in chair. Will continue to assess pt. to increase activity tolerance. Education OT Patient Education: Correct positioning, Exercise program, Modified ADL techniques, Progress toward Goal/Update tx plan, Purpose of tx/functional activities, Reviewed precautions, Rehab process, Transfer techniques Teaching Recipient: Patient Teaching Methods: Demonstration, Discussion Response to Teaching: Verbalize Understanding, Return Demonstration OT Short Term Goals Short Term Goals Time Frame: April 23, 2020 Eatin Oral hygiene: 4 Toileting hygiene: 3 Shower/bathe self: 3 Upper body dressin Lower body dressin Putting on/taking off footwear: 3 OT Pole Peeling Machine Operator Goals Prison Goals Time Frame: Apr 30, 2020 Eating (QC): 6 Oral Hygiene (QC): 5 Toileting Hygiene (QC): 4 Shower/Bathe Self (QC): 3 Upper Body Dressing (QC): 5 Lower Body Dressing (QC): 4 On/Off Footwear (QC): 5 Additional Goals: 1-Demonstrate ADL Tasks, 2-Verbalize Understanding, 3- ImproveStrength/Katlyn 1=Demonstrate adherence to instructed precautions during ADL tasks. 2=Patient will verbalize/demonstrate understanding of assistive devices/modifications for ADL. 3=Patient will improve strength/tolerance for activity to enable patient to perform ADL's. OT Education/Plan Problem List/Assessment Assessment: Decreased Activ Tolerance, Decreased UE Strength, Dependent Transfers, Edema, Impaired Bed Mobility, Impaired Funct Balance, Impaired I ADL's, Impaired Self-Care Skills Discharge Recommendations Plan/Recommendations: Continue POC Therapy Discharge Recommendati: Home & Family, Post Acute OT Comment Equipment needs to be determined. Treatment Plan/Plan of Care Treatment,Training & Education: Yes Patient would benefit from OT for education, treatment and training to promote independence in ADL's, mobility, safety and/or upper extremity function for ADL's. Plan of Care: ADL Retraining, Functional Mobility, Group Exercise/Act as Ind, UE Funct Exercise/Act Treatment Duration: Apr 30, 2020 Frequency: At least 5 of 7 days/Wk (IRF) Estimated Hrs Per Day: Other (Waiver(60 minutes per day until pt. can increase activity level.)) Agreement: Yes Rehab Potential: Fair Time/GCodes Start Time: 10:55 Stop Time: 12:05 Total Time Billed (hr/min): 60 Billed Treatment Time [id number] PT eval, no charge [id number] 1, EVH x 10minutes. OT eval only [id number] ADL x 30minutes, FA x 20minutes. Co-treatment with PT. Please see above note for designated roles. TELLY MACK OT April 09, 2020 14:17
--- NOTE | 2020-04-09 14:28 | ST Cognitive Linguistic Eval ---
Speech Evaluation-General Medical Diagnosis Critical Illness Myopathy Onset Date: April 09, 2020 Therapy Diagnosis Therapy Diagnosis: Cognitive-communication Referral Referring Physician: Dr. Ballesteros Medical History Pertinent Medical History: CABG, CAD, DM, Heart Failure, HTN, Neuropathy, PVD, Smoking Reviewed History: Yes Social History Current Living Status: Spouse Speech PLF-Current Status Prior Level of Function Patient lived at the home with his with other family nearby to assist with his daily needs. Subjective Patient was pleasant and cooperative with the cognitive assessment. Language Eval: Auditory Comprehends Simple Yes/No Ques: Functional Indent/Objects Multiple Stewart: Functional Ident/Pics in Multiple Stewart: Functional Follows 1-Step Commands: Functional Follows Complex Directions: Functional Follows General Conversations: Functional Language Eval: Verbal Language Completes Spontaneous Greeting: Functional Produces Auto, Serial Info: Functional Imitates Simple Words/Phrases: Functional Word Finding: Functional Requests Basic Needs: Functional States Basic Personal Info: Functional Expresses Complex Ideas: Functional Objective Cognitive Domain Attention: WNL Memory: Mild Problem Solving: Functional Executive Functions: WNL Visuospatial Skills: WNL Composite Severity Rating: WNL Objective Formal/Standardized Tests [facility] Mental Status ([facility]) Results 27/30, within normal range of function Oral Motor/Speech Production Within Normal Limits Impression The patient is a pleasant 84 y/o male who was admitted to the ARU s/p colon surgery. Patient has a complex medical history, however he is able to recall the information. Patient completed the UMS at bedside with 27/30 score obtained. This score falls in the normal range of function. At this time the patient does not require further ST services. Speech Patient Assess Expression of Ideas/Wants: Expression (4) Understanding Verbal Content: Understands (4) Brief Interview-Mental Status: Yes Repetition of Three Words: Three (3) Temporal Orientation: Year: Correct (3) Temporal Orientation: Month: Accurate within 5 days(2) Temporal Orientation: Day: Correct (1) Recall : Wear to say "Sock": Yes,after cueing (1) Recall : Color: Yes, after cueing (1) Recall : Bed: Yes,after cueing (1) Memory/Recall Ability: Current season, That he or she is in a hsp/hsp unit Speech-Plan Patient/Family Goals Patient/Family Goals: Patient plans on returning to his home where he lives with his and has other family near for support. Treatment Plan Speech Therapy Treatment Plan: Discontinue ST Treatment Duration: April 09, 2020 Frequency: 1 time per week Estimated Hrs Per Day: .25 hour per day Rehab Potential: Guarded Barriers to Learning: None identified at this time Pt/Family Agrees to Plan: Yes Safety Risks/Education Teaching Recipient: Patient Teaching Methods: Discussion Response to Teaching: Verbalize Understanding Education Topics Provided: Safety within his room and communication of wants/needs Time Speech Therapy Time In: 14:05 Speech Therapy Time Out: 14:20 Total Billed Time: 15 Billed Treatment Time 1, SPSNDCOMP BONIFACIO Kraus April 09, 2020 14:28
[2020-04-09 14:48] VITALS: BP 134/64
[2020-04-09] MEDS: RT-ALBUTEROL/IPRATROPIUM 3 ML (DUONEB) VIAL INH SCH ×2 (14:58→18:26)
[2020-04-09] MEDS ORDERED: PIPERACILLIN/TAZO 4.5 GM/NS 100 ML IV ONE ×2 (15:15)
[2020-04-09] MEDS ORDERED: inSUlin ASPART (NovoLOG) 1 UNIT/0.01 ML (CHARGE PER UNIT) SC SCH ×2 (16:00→17:30)
--- NOTE | 2020-04-09 17:00 | NUR ---
Pt BS 426, Dr. Ballesteros notified, new orders received. Levemir & Novolog administered. Pt asymptomatic for hyperglycemia.
[2020-04-09 17:05] VITALS: BP 127/45
[2020-04-09] MEDS: inSUlin ASPART (NovoLOG) 1 UNIT/0.01 ML (CHARGE PER UNIT) SC SCH ×2 (17:42→20:05)
[2020-04-09] MEDS: ENOXAPARIN 40 MG/0.4 ML (LOVENOX) SYR SC SCH (18:25)
[2020-04-09] MEDS: HYDROcodone/APAP 5 MG/325 MG (LORTAB) TAB PO PRN (18:25)
--- NOTE | 2020-04-09 19:50 | NUR ---
Right IJ d/c'd with tip intact. Pressure to site held for 10 min as ordered. Dressing applied to site. Pt tony well with no c/o's.
[2020-04-09] MEDS: FLUoxetine HCL 20 MG (PROzac) CAP PO SCH (19:53)
[2020-04-09] MEDS: PANTOPRAZOLE 40 MG (PROTONIX) TAB PO SCH (19:54)
[2020-04-09] MEDS: ATENOLOL 25 MG (TENORMIN) TAB PO SCH (19:54)
[2020-04-09] MEDS: GABAPENTIN 300 MG (NEURONTIN) CAP PO SCH (19:54)
[2020-04-09] MEDS: DOCUSATE SODIUM 100 MG (COLACE) CAP PO SCH (19:57)
[2020-04-09] MEDS: TAMSULOSIN 0.4 MG (FLOMAX) CAP PO SCH (19:57)
[2020-04-09] MEDS: SENNA W/DOCUSATE (SENOKOT S) TABLET PO SCH (19:58)
[2020-04-09] MEDS: polyethylene glycoL POWDER 17 GM (MIRALAX) PACK PO SCH (19:58)
[2020-04-09] MEDS: LOPERAMIDE 2 MG (IMODIUM) TABLET PO PRN (21:02)
[2020-04-09] MEDS: PIPERACILLIN/TAZO 4.5 GM/NS 100 ML IV SCH ×2 (21:44)
[2020-04-10 05:03] VITALS: BP 161/53
[2020-04-10] MEDS: inSUlin ASPART (NovoLOG) 1 UNIT/0.01 ML (CHARGE PER UNIT) SC SCH ×4 (05:32→21:50)
[2020-04-10] MEDS: PIPERACILLIN/TAZO 4.5 GM/NS 100 ML IV SCH ×6 (05:37→21:52)
[2020-04-10 05:48] LABS: BASOPHILS % (AUTO) 0 % (0-10); EOSINOPHILS # (AUTO) 0.4 10^3/uL (0.0-0.3); EOSINOPHILS % (AUTO) 4 % (0-10); HEMATOCRIT 29 % (40-54); HEMOGLOBIN 9.3 G/DL (13.3-17.7); LYMPHOCYTES # (AUTO) 0.7 X 10^3 (1.0-4.0); LYMPHOCYTES % (AUTO) 8 % (12-44); MEAN CORPUSCULAR HEMOGLOBIN 30 PG (25-34); MEAN CORPUSCULAR HGB CONC 32 G/DL (32-36); MEAN CORPUSCULAR VOLUME 92 FL (80-99); MEAN PLATELET VOLUME 9.4 FL (7.4-10.4); MONOCYTES # (AUTO) 0.6 X 10^3 (0.0-1.0); MONOCYTES % (AUTO) 7 % (0-12); NEUTROPHILS % (AUTO) 80 % (42-75); PLATELET COUNT 266 10^3/uL (130-400); RED CELL DISTRIBUTION WIDTH 14.6 % (10.0-14.5); WHITE BLOOD COUNT 8.7 10^3/uL (4.3-11.0)
[2020-04-10] MEDS: LOPERAMIDE 2 MG (IMODIUM) TABLET PO PRN ×2 (05:53→09:11)
[2020-04-10 06:09] LABS: ALBUMIN 2.5 GM/DL (3.2-4.5); BILIRUBIN,TOTAL 0.6 MG/DL (0.1-1.0); CALCIUM 7.8 MG/DL (8.5-10.1); CREATININE SERUM 1.32 MG/DL (0.60-1.30); POTASSIUM 3.6 MMOL/L (3.6-5.0)
[2020-04-10] MEDS: RT-ALBUTEROL/IPRATROPIUM 3 ML (DUONEB) VIAL INH SCH ×4 (06:44→18:47)
--- NOTE | 2020-04-10 08:57 | Progress Note - Urology ---
Progress Note-Urology Progress Notes/Assess & Plan Progress/Assessment & Plan TOV TODAY Final Diagnosis URINE RETENTION DORA MARINO MD April 10, 2020 08:57
--- NOTE | 2020-04-10 09:00 | NUR ---
PT CONTINUES TO HAVE LOOSE STOOLS x2, IMMODIUM GIVEN PO PER ORDER. WILL CON'T TO MONITOR.
--- NOTE | 2020-04-10 09:00 | Physical Therapy Daily Note ---
PT Daily Note-Current Subjective Pt. up in recliner and has been up for a while this morning per nursing. Pt. c/o of sever pain in his bottom and that he cannot sit any longer due to this discomfort. Pt. screams out in pain with any movement . Pt. agrees to TRF recliner to bed and then to his side to try to alleviate pain in his bottom as well as allow this BACKGROUND INVESTIGATOR to view his skin on bottom etc. Pt. states he is miserable overall secondary to pain in his bottom as well as all the swelling in his scrotum and LEs. After TRF recliner to bed and on his side pt. comments that this position is much more comfortable, less pain in bottom Pain Numeric Pain Scale: 8 Location: Medial Location Body Site: Sacrum (coccyx skin area) Pain Description: Stabbing Appearance edema noted in LEs and scrotum. Open area coccyx staged by nursing who came to assess pt. during session Mental Status Patient Orientation: Normal For Age Attachments: Oxygen (3L), Clark Catheter, IV Transfers SCALE: Activities may be completed with or without assistive devices. 6-Cucwxgrdef-cyuegbm completes the activity by him/herself with no assistance from a helper. 5-Set-up or Clean-up Assistance-helper sets up or cleans up; patient completes activity. [place] assists only prior to or following the activity. 4-Supervision or Touching Assistance-helper provides verbal cues and/or touching/steadying and/or contact guard assistance as patient completes activity. Assistance may be provided throughout the activity or intermittently. 3-Partial/Moderate Assistance-helper does LESS THAN HALF the effort. [place] lifts, holds or supports trunk or limbs, but provides less than half the effort. 2-Substantial/Maximal Assistance-helper does MORE THAN HALF the effort. [place] lifts or holds trunk or limbs and provides more than half the effort. 2-Xuygsnszb-ynmwkv does ALL the effort. Patient does none of the effort to comp lete the activity. Or, the assistance of 2 or more helpers is required for the patient to complete the activity. If activity was not attempted, code reason: 7-Patient Refused. 9-Not Applicable-not attempted and the patient did not perform the activity before the current illness, exacerbation or injury. 10-Not Attempted due to Environmental Limitations-(lack of equipment, weather restraints, etc.). 88-Not Attempted due to Medical Conditions or Safety Concerns. Roll Left & Right (QC): 3 Sit to Lying (QC): 3 Sit to Stand (QC): 2 Chair/Xlf-cu-Rjoyh Xfer(QC): 3 assist of 2 as well as lift mechanism of recliner used to TRF pt. chair to bed. sit to sup very careful as pt. c/o pain in bottom etc Weight Bearing Right Lower Extremity: Right Weight Bearing/Tolerated Left Lower Extremity: Left Weight Bearing/Tolerated hx of rbka Gait Training pt. took 2-4 small steps as he pivoted chair to bed , pt had prosthesis on RLE and needed mod assist of 2 Exercises Supine Ex: Ankle pumps (r only), Rolling (assisted), Heel Slides (right only), Hip abd/add Supine Reps: 8 Treatments Rx focused on pain relief as pt. was very upset and side tracked by pain, very verbal and c/o much Assessment Current Status: Fair Progress edema and pain limiting funct mob at this time. Pt. expresses that he will give full effort once he gains pain relief and decreased edema PT Short Term Goals Short Term Goals Time Frame: April 16, 2020 Roll Left & Right: 6 Sit to lyin Lying to sitting on side of be: 4 Sit to stand: 3 Chair/xgf-zx-jrxxt transfer: 3 Walk 10 feet: 3 PT Plumbing Manager Goals Plumbing Manager Goals PT Halfway Goals Time Frame: Apr 30, 2020 Roll Left & Right (QC): 6 Sit to Lying (QC): 6 Lying-Sitting on Side/Bed(QC): 6 Sit to Stand (QC): 4 (SBA) Chair/Mfr-ak-Cwqcn Xfer(QC): 4 (SBA) Toilet Transfer (QC): 4 Car Transfer (QC): 3 Does the Patient Walk: No and Walking Goal IS indicated Walk 10 feet (QC): 4 Walk 50ft with 2 Turns (QC): 4 Walk 150 ft (QC): 88 Walking 10ft on Uneven Surface: 88 1 Step (curb) (QC): 88 4 Steps (QC): 88 12 Steps (QC): 88 Picking up an Object (QC): 88 Wheel 50 feet with 2 turns (QC: 6 Wheel 150 feet: 6 PT Plan Treatment/Plan Treatment Plan: Continue Plan of Care Treatment Plan: Bed Mobility, Education, Functional Activity Katlyn, Functional Strength, Group Therapy, Gait, Safety, Therapeutic Exercise, Transfers Treatment Duration: Apr 30, 2020 Frequency: modified program 60 min/day, advance as patient is able Estimated Hrs Per Day: 1 hour per day Patient and/or Family Agrees t: Yes Safety Risks/Education Patient Education: Transfer Techniques, Correct Positioning, Disease Process, Safety Issues Teaching Recipient: Patient Teaching Methods: Demonstration, Discussion Response to Teaching: Verbalize Understanding, Reinforcement Needed Time/GCodes Time In: 800 Time Out: 900 Total Billed Treatment Time: 60 Total Billed Treatment 1,FA60m CAROLINE PRINCE BACKGROUND INVESTIGATOR April 10, 2020 09:00
[2020-04-10] MEDS: PANTOPRAZOLE 40 MG (PROTONIX) TAB PO SCH ×2 (09:04→21:46)
[2020-04-10] MEDS: GABAPENTIN 300 MG (NEURONTIN) CAP PO SCH ×2 (09:04→21:45)
[2020-04-10] MEDS: ASPIRIN E.C. 81 MG (ECOTRIN) TAB PO SCH (09:04)
[2020-04-10] MEDS: FINASTERIDE (PROSCAR) 5 MG TAB PO SCH (09:04)
[2020-04-10] MEDS: TAMSULOSIN 0.4 MG (FLOMAX) CAP PO SCH ×2 (09:04→21:46)
[2020-04-10] MEDS: polyethylene glycoL POWDER 17 GM (MIRALAX) PACK PO SCH ×2 (09:05→21:51)
[2020-04-10] MEDS: SENNA W/DOCUSATE (SENOKOT S) TABLET PO SCH ×2 (09:05→21:45)
[2020-04-10] MEDS: DOCUSATE SODIUM 100 MG (COLACE) CAP PO SCH ×2 (09:05→21:45)
[2020-04-10] MEDS: HYDROcodone/APAP 5 MG/325 MG (LORTAB) TAB PO PRN ×2 (09:11→15:50)
--- NOTE | 2020-04-10 09:33 | PM&R Progress Note ---
Subjective HPI/CC On Admission Date Seen by Provider: April 10, 2020 Time Seen by Provider: 09:45 Subjective/Events-last exam Incontinent of bowel in the shower Clark was discontinued and a trial of spontaneous void will be initiated by Dr. Sal Scrotal edema noted Right lower lobe was wheezing earlier so I started him on Albuterol Nebulizer treatments TID Wound care will evaluate his buttock Checked meds and labs Conferred with RN Reviewed therapy notes Review of Systems General: Fatigue, Malaise Gastrointestinal: Abdominal Pain Genitourinary: Retention Neurological: Weakness, Numbness, Incoordination Objective Exam Vital Signs Vital Signs Date Time Temp Pulse Resp B/P (MAP) Pulse Ox O2 Delivery O2 Flow Rate FiO2 04/10/20 18:47 90 Nasal Cannula 1.00 04/10/20 17:15 36.5 69 18 149/66 (93) Capillary Refill : Less Than 3 Seconds General Appearance: No Apparent Distress, WD/WN, Chronically ill, Obese HEENT: PERRL/EOMI, Normal ENT Inspection, Pharynx Normal Neck: Full Range of Motion, Normal Inspection, Non Tender, Supple, Carotid Bruit Respiratory: Chest Non Tender, Lungs Clear, No Accessory Muscle Use, No Respiratory Distress, Decreased Breath Sounds Cardiovascular: Regular Rate, Rhythm, No Gallop, No JVD, No Murmur, Normal Peripheral Pulses Gastrointestinal: Normal Bowel Sounds, No Organomegaly, No Pulsatile Mass, Soft, Tenderness Back: Normal Inspection, No CVA Tenderness, No Vertebral Tenderness Extremity: Normal Capillary Refill, Normal Inspection, Normal Range of Motion, Non Tender, No Calf Tenderness, Pedal Edema Neurologic/Psychiatric: Alert, Oriented x3, No Motor/Sensory Deficits, Normal Mood/Affect, 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 FIM Transfers Therapy Code Descriptions/Definitions Functional [place] Measure: 0=Not Assessed/NA 4=Minimal Assistance 1=Total Assistance 5=Supervision or Setup 2=Maximal Assistance 6=Modified [place] 3=Moderate Assistance 7=Complete IndependenceSCALE: Activities may be completed with or without assistive devices. 5-Qhoybofwwd-rcsyocw completes the activity by him/herself with no assistance from a helper. 5-Set-up or Clean-up Assistance-helper sets up or cleans up; patient completes activity. [place] assists only prior to or following the activity. 4-Supervision or Touching Assistance-helper provides verbal cues and/or touching/steadying and/or contact guard assistance as patient completes activity. Assistance may be provided throughout the activity or intermittently. 3-Partial/Moderate Assistance-helper does LESS THAN HALF the effort. [place] lifts, holds or supports trunk or limbs, but provides less than half the effort. 2-Substantial/Maximal Assistance-helper does MORE THAN HALF the effort. [place] lifts or holds trunk or limbs and provides more than half the effort. 2-Imyfhpucf-eislay does ALL the effort. Patient does none of the effort to complete the activity. Or, the assistance of 2 or more helpers is required for the patient to complete the activity. If activity was not attempted, code reason: 7-Patient Refused. 9-Not Applicable-not attempted and the patient did not perform the activity before the current illness, exacerbation or injury. 10-Not Attempted due to Environmental Limitations-(lack of equipment, weather restraints, etc.). 88-Not Attempted due to Medical Conditions or Safety Concerns. Roll Left to Right (QC): 3 Sit to Lying (QC): 3 Sit to Stand (QC): 2 Chair/Hsv-gr-Dsfem Xfer(QC): 3 Car Transfer (QC): 1 Gait Training Does the Patient Walk?: No and Walking Goal IS indicated Walk 10 feet (QC): 88 Walk 50 ft with 2 Turns(QC): 88 Walk 150 ft (QC): 88 Walking 10ft/uneven surface-QC: 88 Wheelchair Training Does the Pt Use a Wheelchair?: Yes Distance: 150'x2 Wheel 50 ft with 2 turns (QC): 3 Wheel 150 ft (QC): 3 Type of Wheelchair: Manual Stair Training 1 Step (curb) (QC): 88 4 Steps (QC): 88 12 Steps (QC): 88 Balance Picking up an Object (QC): 88 ADL-Treatment Eating (QC): 10 Oral Hygiene (QC): 10 Shower/Bathe Self (QC): 10 Upper Body Dressing (QC): 4 (SBA and increased time.) Lower Body Dressing (QC): 2 (Max assist to thread shorts over feet and over hips.) On/Off Footwear (QC): 2 (Pt. requires mod assist to don prosthetic leg. Pt. 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 Ischemic heart disease PVD severe Right BKA Smoker CARRIE COPD Urinary retention DM OOC Plan: Pain meds IRF protocol PVR Dr Sal appreciated Insulin (1) Critical illness myopathy (2) Abdominal pain Status: Acute (3) Hypoxia Status: Acute (4) Anemia Status: Chronic (5) Diabetes mellitus Status: Chronic (6) COPD (chronic obstructive pulmonary disease) Status: Chronic (7) Chronic respiratory failure with hypoxia (8) Cardiac pacemaker Status: Chronic (9) Coronary artery disease Status: Chronic (10) DVT prophylaxis Status: Acute (11) S/P partial resection of colon Status: Acute (12) 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
--- NOTE | 2020-04-10 09:34 | Individualized Plan of Care ---
Individualized Plan of Care Rehab Nursing IPOC Order Admission Date April 09, 2020 at 10:55 Current Orders Orders Admission Order(Inpt,Obs,Sdc) (04/09/20 10:37) Vital Signs: Per Unit Policy ( 08,16,00 (04/09/20 10:37) Bennie Sevilla 09,21 (04/09/20 10:37) Sequential Compression Device Q4H (04/09/20 10:37) [place] Inspector-Inpt Rehab Con (04/09/20 10:37) Rehab Nursing Orders-Ipoc (04/09/20 10:37) Physical Therapy Rehab Orders (04/09/20 10:37) Occupational Therapy Rehab Ord (04/09/20 10:37) Speech Therapy Rehab Orders (04/09/20 10:37) Cbc With Automated Diff (04/10/20 06:00) Comprehensive Metabolic Panel (04/10/20 06:00) Intake & Output 06,14,22 (04/09/20 10:37) Precautions (Aru) (04/09/20 10:37) Rehab-Intensity Of Therapy (04/09/20 10:37) Initiate Admission Nursing Pro .admission (04/09/20 10:37) Alprazolam Tablet (Xanax Tablet) (04/09/20 10:45) Calcium Carbonate Chew Tablet (Antacid C (04/09/20 10:45) Diphenhydramine Tablet (Benadryl Tablet) (04/09/20 10:45) Docusate Sodium Capsule (Colace Capsule) (04/09/20 21:00) Docusate Sodium Capsule (Colace Capsule) (04/09/20 10:45) Bisacodyl Suppository (Dulcolax Supposit (04/09/20 10:45) Lactulose Oral Solution (Enulose Oral So (04/09/20 10:45) Na Phos/Na Biphos Enema (Fleet Enema [place] (04/09/20 10:45) Guaifenesin/Codeine Syrup (Robitussin Ac (04/09/20 10:45) Loperamide Tablet (Imodium Tablet) (04/09/20 10:45) Enoxaparin Injection (Lovenox Injection) (04/09/20 18:30) Melatonin Tablet (Melatonin Tablet) (04/09/20 10:45) Polyethylene Glycol Powder Pkt (Miralax (04/09/20 21:00) Ondansetron Oral Dissolve Tab (Zofran (04/09/20 10:45) Senna S Tablet (Senokot S Tablet) (04/09/20 21:00) Initiate Admission Nursing Pro .admission (04/09/20 10:37) Code/Resuscitation (04/09/20 12:43) Accucheck Achs ACHS (04/09/20 12:43) Incentive Spirometry (Nursing) Q2H (04/09/20 12:43) Midline Cap Change Q3D (04/09/20 12:43) Midline Dressing Change Q7D (04/09/20 12:43) Nursing Communication (Order) (04/09/20 12:43) Oxygen-Administer 07,19 (04/09/20 12:43) Straight Cath (Urinary) (04/09/20 12:43) Weight Bearing Status (04/09/20 12:43) Cho 60g/M 1snack (16-2000 [place]) (04/09/20 Dinner) Albuterol/Ipra Inhalation Soln (Duoneb I (04/09/20 15:00) Aspirin Enteric Coated Tablet (Ecotrin T (04/10/20 09:00) Atenolol Tablet (Tenormin Tablet) (04/09/20 21:00) Fluoxetine Capsule (Prozac Capsule) (04/09/20 21:00) Finasteride Tablet (Proscar Tablet) (04/10/20 09:00) Gabapentin Capsule/Tablet (Neurontin Cap (04/09/20 21:00) Ondansetron Injection (Zofran Injectio (04/09/20 12:45) Tamsulosin Capsule (Flomax Capsule) (04/09/20 21:00) Morphine Injection (Morphine Injection (04/09/20 12:45) Consult Urology (04/09/20 12:43) Incentive Spirometry Initial (04/09/20 12:43) Oxygen Delivery Set Up (04/09/20 12:43) Pharmacy Consult/Message (04/09/20 12:43) Svn Small Volume Nebulizer (04/09/20 12:43) Svn Small Volume Nebulizer (04/09/20 12:43) Incentive Spirometry (Nursing) Q2H (04/09/20 12:43) Pantoprazole Tablet (Protonix Tablet) (04/09/20 21:00) Hydrocodone/Apap 5/325 Tablet (Lortab 5 (04/09/20 13:00) Patient Visit (04/09/20 ) Speech Sound Lang Comp (04/09/20 ) Amb Us Guide Vascular Access (04/09/20 ) Patient Visit (04/09/20 ) Pt Eval Moderate Complexity (04/09/20 ) Functional Activities, Ea 15 (04/09/20 ) Piperacillin/Tazobactam (Bulk) (Zosyn In (04/09/20 15:15) Piperacillin/Tazobactam (Bulk) (Zosyn In (04/09/20 21:15) Insulin Determir (Per Unit) (Levemir (Pe (04/09/20 17:30) Insulin Determir (Per Unit) (Levemir (Pe (04/09/20 21:00) Insulin Aspart (Novolog) (Novolog (Charg (04/09/20 17:30) Central Line D/C (04/09/20 19:30) Catheter(Urinary) Discontinue (04/10/20 08:57) Patient Visit (04/10/20 ) Functional Activities, Ea 15 (04/10/20 ) Lidocaine 2% (Urojet) (Xylocaine Urojet) (04/10/20 16:02) Nursing Communication (Order) (04/10/20 17:33) Rehab Nursing Orders: Ongoing Assess. of Cognitive Status, Ongoing Assess. of Function Status, Bladder Management, Bladder Scan, Bladder Training, Bowel Management, Bowel Training, Disease Management & Educaiton, DVT Prophylaxis, Fall Prevention, Fluid/Electrolyte/Nutrition Mgmt, Infection Prevention, Medication Management & Education, Management of Risks & Complications, Management of Skin Intergrity, Nutrition Management, Pain Management, Patient/Family Support, Safety Management, Weight Bearing Precaution, Wound Management Intensity of Therapy to be met Patient to be seen: Min.3h per day/5 of 7d PT IPOC Problem List: Activity Tolerance, Functional Strength, Safety, Balance, Gait, Transfer, ROM Treatment Plan: Continue Plan of Care Bed Mobility, Education, Functional Activity Katlyn, Functional Strength, Group Therapy, Gait, Safety, Therapeutic Exercise, Transfers Treatment Duration: Apr 30, 2020 Frequency: modified program 60 min/day, advance as patient is able Estimated Hrs Per Day: 1 hour per day OT IPOC Problems: Decreased Activ Tolerance, Decreased UE Strength, Dependent Transfers, Edema, Impaired Bed Mobility, Impaired Funct Balance, Impaired I ADL's, Impaired Self-Care Skills OT Treatment, Training and Edu: Yes Plan of Care: ADL Retraining, Functional Mobility, Group Exercise/Act as Ind, UE Funct Exercise/Act Treatment Duration: Apr 30, 2020 Frequency: At least 5 of 7 days/Wk (IRF) Estimated Hrs Per Day: Other (Waiver(60 minutes per day until pt. can increase activity level.)) ST IPOC Speech Therapy Treatment Plan: Discontinue ST Treatment Duration: April 09, 2020 Frequency: 1 time per week Estimated Hrs Per Day: .25 hour per day [place] Inspector/Case Mgmt [place] Inspector/Case Managemen: Discharge Planning Dietitian/Wholesale And Retail Merchant Dietitian/Wholesale And Retail Merchant to monitor nutritional status and make changes and/or recommendations as needed and work with speech pathology on dietary upgrades as the occur. Physician IPOC Medical Issues being managed closely and that require the 24 hour availability of a physician: Recent critical illness with advanced age places him at risk for decompensation and will require close monitoring of sugars and respiratory status and a-fib Medical Issues: Bowel/Bladder Function, DVT Prophylaxis, Falls Precautions, Fluid/Electrolyte/Nutrition Balance, Infection Protection, Pain Management, Sw allowing Precautions, Wound Care Brief Synthesis of Preadmission Screen, Post-Admission Evaluation, and Therapy Evaluations: PT OT will focus on stamina and energy in order to return home with family and regain ADL's. Medical Prognosis: Good Anticipated Length of Stay: 10 days AGATHA PAZ DO April 10, 2020 09:34
--- NOTE | 2020-04-10 10:00 | NUR ---
AZEVEDO CATHETER D/C'D PER ORDER. 10CC STERILE WATER REMOVED FROM BULB, CATHETER REMOVED. TOLERATES WELL. WILL CON'T TO MONITOR.
--- NOTE | 2020-04-10 10:52 | NUR ---
RT FOUND PT ON O2 @ 3 LPM. RT NOT NOTIFIED OF INCREASE IN OXYGEN. DECREASED BACK TO 1 LPM. WILL ATTEMPT TO WEAN OXYGEN AGAIN.
--- NOTE | 2020-04-10 14:23 | Occupational Ther Daily Note ---
OT Current Status-Daily Note Subjective Pt. reports pain in sharon area due to swelling. Appearance Pt. in bed. Agrees to work with OT. Mental Status/Objective Patient Orientation: Person, Place Attachments: Oxygen ADL-Treatment Therapy Code Descriptions/Definitions Functional [place] Measure: 0=Not Assessed/NA 4=Minimal Assistance 1=Total Assistance 5=Supervision or Setup 2=Maximal Assistance 6=Modified [place] 3=Moderate Assistance 7=Complete IndependenceSCALE: Activities may be completed with or without assistive devices. 2-Pykwmgdgpz-umbfbrt completes the activity by him/herself with no assistance from a helper. 5-Set-up or Clean-up Assistance-helper sets up or cleans up; patient completes activity. [place] assists only prior to or following the activity. 4-Supervision or Touching Assistance-helper provides verbal cues and/or touching/steadying and/or contact guard assistance as patient completes a ctivity. Assistance may be provided throughout the activity or intermittently. 3-Partial/Moderate Assistance-helper does LESS THAN HALF the effort. [place] lifts, holds or supports trunk or limbs, but provides less than half the effort. 2-Substantial/Maximal Assistance-helper does MORE THAN HALF the effort. [place] lifts or holds trunk or limbs and provides more than half the effort. 8-Djhcxmamg-ivjmfg does ALL the effort. Patient does none of the effort to complete the activity. Or, the assistance of 2 or more helpers is required for the patient to complete the activity. If activity was not attempted, code reason: 7-Patient Refused. 9-Not Applicable-not attempted and the patient did not perform the activity before the current illness, exacerbation or injury. 10-Not Attempted due to Environmental Limitations-(lack of equipment, weather restraints, etc.). 88-Not Attempted due to Medical Conditions or Safety Concerns. Oral Hygiene (QC): 7 Shower/Bathe Self (QC): 2 (Pt. requires max assist to shower self. Pt. unable to cleanse sharon area or LE. ) Upper Body Dressing (QC): 2 (Max assist at bed level.) Lower Body Dressing (QC): 1 (Dependent assist to don shorts at bed level.) On/Off Footwear: 2 (Max assist to don left slipper sock. Max assist to don right prosthetic LE.) Toileting Hygiene (QC): 1 Other Treatment Pt. agrees to shower. Pt. required max assist for supine-sit. Max assist to don prosthetic LE on side of bed. Pt. has difficulty sitting upright due to swelling in groin and abdomen area. Pt. declines slide board and requests to stand. Pt. requires max x 2 for sit-stand with walker and transfer to shower chair. Pt. incontinent of bowel in room and in shower. Pt. able to bathe UE and upper chest, but requires assistance to wash all other areas. Pt. uncomfortable on shower chair and requests to go back to bed. Pt. requires max x 2 to stand from shower chair and to transfer to bed. Max x 2 for sit-supine. Pt. states that he is too tired to attempt sitting back up. OT dressed pt. at bed level. Increased rest breaks needed in between each task. Pt. positioned and all needs met. Education OT Patient Education: Correct positioning, Modified ADL techniques, Progress toward Goal/Update tx plan, Purpose of tx/functional activities, Reviewed precautions, Rehab process, Transfer techniques Teaching Recipient: Patient Teaching Methods: Demonstration, Discussion Response to Teaching: Verbalize Understanding, Return Demonstration OT Short Term Goals Short Term Goals Time Frame: April 23, 2020 Eatin Oral hygiene: 4 Toileting hygiene: 3 Shower/bathe self: 3 Upper body dressin Lower body dressin Putting on/taking off footwear: 3 OT Correction Goals Correction Goals Time Frame: Apr 30, 2020 Eating (QC): 6 Oral Hygiene (QC): 5 Toileting Hygiene (QC): 4 Shower/Bathe Self (QC): 3 Upper Body Dressing (QC): 5 Lower Body Dressing (QC): 4 On/Off Footwear (QC): 5 Additional Goals: 1-Demonstrate ADL Tasks, 2-Verbalize Understanding, 3- ImproveStrength/Katlyn 1=Demonstrate adherence to instructed precautions during ADL tasks. 2=Patient will verbalize/demonstrate understanding of assistive devices/sujit fications for ADL. 3=Patient will improve strength/tolerance for activity to enable patient to perform ADL's. OT Education/Plan Problem List/Assessment Assessment: Decreased Activ Tolerance, Decreased UE Strength, Dependent Transfers, Impaired Bed Mobility, Impaired Funct Balance, Impaired I ADL's, Impaired Self-Care Skills, Restricted Funct UE ROM Discharge Recommendations Plan/Recommendations: Continue POC Therapy Discharge Recommendati: Scheduled Assistance, Home & Family, Post Acute OT Treatment Plan/Plan of Care Treatment,Training & Education: Yes Patient would benefit from OT for education, treatment and training to promote independence in ADL's, mobility, safety and/or upper extremity function for ADL's. Plan of Care: ADL Retraining, Functional Mobility, Group Exercise/Act as Ind, UE Funct Exercise/Act Treatment Duration: Apr 30, 2020 Frequency: At least 5 of 7 days/Wk (IRF) Estimated Hrs Per Day: Other (Waiver(60 minutes per day until pt. can increase activity level.)) Agreement: Yes Rehab Potential: Fair Time/GCodes Start Time: 09:30 Stop Time: 10:30 Total Time Billed (hr/min): 60 Billed Treatment Time 1, ADL x 4 TELLY MACK OT April 10, 2020 14:23
--- NOTE | 2020-04-10 14:37 | NUR ---
RD ASSESSMENT PMHx: COPD; CAD; HTN; hypercholesterolemia; amputation (R BKA); DM; chronic constipation PT INTERACTION: Pt was awake and pleasant during nutrition assessment. Pt states current appetite is good. Note avg PO intake of 50% x2meal, per chart review. Pt states following a regular diet at home, and has no issues with chewing/swallowing food. Pt states no recent issues with nausea, vomiting, or constipation. Pt states recent issues with diarrhea. Note last BM was 04/10, and pt currently on bowel regimen of colace BID; senna BID; and miralax BID, per chart review. Pt states unsure of recent wt changes. Note unable to determine recent wt hx, per chart review. Pt states current DM management is "pretty good," but also stated he heard EMS say his blood glucose level was "480 on the ride in." Note unable to determine recent HbA1c, per chart review. Note pt has surg hx of R BKA, per chart review. ABNORMAL NUTRITION-RELATED LAB VALUES LOW: Ca 7.9; Pro 5.0; alb 2.5 HIGH: cr 1.32 Est. kcal needs: 2175-0870 kcal | 15-18 kcal/kg Est. Pro needs: 90-112 g Pro | 0.8-1.0 g Pro/kg PES STATEMENT: Inadequate oral intake (NI-2.1) related to diarrhea as evidenced by pt interview | avg PO intake 50% x2meal INTERVENTION: Continue with current diet order of CHO 60g/m 1snack diet. Add Ensure HP (vary) to meals TID, for increased protein intake. Note abnormal lab values of Pro 5.0; and alb 2.5, per chart review. Provides 160 kcal and 16 g Pro per serving. Discussed and provided dietary education on DM management. Discussed current intake of CHO sources and provided suggestions of moderation of those foods for better glucose control. Discussed snacking options and provided examples of moderation for better glucose control. Pt appeared semi-confident to follow suggestions upon discharge. Will attempt to reinforce education prior to discharge. Will continue to follow and reassess as pt needs, intake, and status change. MONITOR/EVALUATE: PO Intake; Plan of Care; Hydration Status; Weight Status; Lab Values Juliann Booth, MS, RD, LD
--- NOTE | 2020-04-10 15:30 | NUR ---
BLADDER SCAN PERFORMED 463ML NOTED. STRAIGHT CATH PERFORMED AFTER INSTILLATION OF UROJECT WITH STERILE TECHNIQUE. 900 CC CLEAR YELLOW URINE WITH SMALL AMOUNT SEDIMENT DRAINED FROM BLADDER. PERICARE PERFORMED. PATIENT EXPRESSES CONCERN REGARDING SWOLLEN TESTICLES. EXPRESSES HE 'USUALLY FILLS UP 2 URINALS OVERNIGHT WHEN AT HOME "BECAUSE HE 'GOES 40 TIMES A NIGHT." REASSURANCE GIVEN, DR NOTIFIED. PATIENT REPOSITIONED FOR COMFORT. WILL CONTINUE TO MONITOR.
[2020-04-10] MEDS ORDERED: LIDOCAINE UROJET 2% GEL 10 ML PKG ONE (16:02)
[2020-04-10 17:15] VITALS: BP 149/66
[2020-04-10] MEDS: ENOXAPARIN 40 MG/0.4 ML (LOVENOX) SYR SC SCH (18:21)
[2020-04-10] MEDS: FLUoxetine HCL 20 MG (PROzac) CAP PO SCH (21:45)
[2020-04-10] MEDS: MELATONIN 3 MG TABLET PO PRN (21:46)
[2020-04-10] MEDS: ATENOLOL 25 MG (TENORMIN) TAB PO SCH (21:46)
--- NOTE | 2020-04-10 22:53 | NUR ---
BLADDER SCAN DONE. 433CC OF URINE NOTED ON SCAN. 16FR INDWELLING AZEVEDO CATHETER INSERTED PER DR. MORILLO. STERILE TECHNIQUE, 10CC BALLOON INFLATED. IMMEDIATE RETURN OF BRIGHT YELLOW, CLEAR URINE, 500CC. PATIENT TOLERATED PROCEDURE WELL.
[2020-04-11] MEDS: HYDROcodone/APAP 5 MG/325 MG (LORTAB) TAB PO PRN ×3 (01:26→21:28)
[2020-04-11 05:35] VITALS: BP 176/70
[2020-04-11] MEDS: inSUlin ASPART (NovoLOG) 1 UNIT/0.01 ML (CHARGE PER UNIT) SC SCH ×4 (05:55→21:29)
[2020-04-11] MEDS: PIPERACILLIN/TAZO 4.5 GM/NS 100 ML IV SCH ×6 (05:55→22:41)
[2020-04-11] MEDS: RT-ALBUTEROL/IPRATROPIUM 3 ML (DUONEB) VIAL INH SCH ×4 (06:59→18:46)
[2020-04-11 08:00] VITALS: BP 139/52
--- NOTE | 2020-04-11 09:00 | NUR ---
DR. PAZ NOTIFIED OF PATIENT'S COMPLAINT OF INCREASING SOB EVEN WHEN EATING OR TURNING TO SIDE AND ALSO INCREASING GENERALIZED EDEMA. ORDER TO CONSULT DR. MORENO. O2 ON AT 1L WITH SAT 97%.
--- NOTE | 2020-04-11 09:04 | PM&R Progress Note ---
Subjective HPI/CC On Admission Date Seen by Provider: April 11, 2020 Time Seen by Provider: 09:15 Subjective/Events-last exam Edema noted so will consult cardiology Clark back in failed void residual trial Buttock ulcer, wound care consulted Pt feels like he is short of breath and is retaining fluid Pacemaker maintained by Dr. Parada Overall feels like he is just having a hard time breathing and if he can get that resolved will be able to participate better Checked meds and labs Conferred with RN Reviewed therapy notes Review of Systems General: Fatigue Cardiovascular: Edema Neurological: Weakness, Numbness, Incoordination Objective Exam Vital Signs Vital Signs Date Time Temp Pulse Resp B/P (MAP) Pulse Ox O2 Delivery O2 Flow Rate FiO2 04/11/20 18:46 98 Nasal Cannula 3.00 04/11/20 17:04 36.1 70 18 144/72 (96) Capillary Refill : Less Than 3 Seconds General Appearance: No Apparent Distress, WD/WN, Chronically ill, Obese HEENT: PERRL/EOMI, Normal ENT Inspection, Pharynx Normal Neck: Full Range of Motion, Normal Inspection, Non Tender, Supple, Carotid Bruit Respiratory: Chest Non Tender, Lungs Clear, No Accessory Muscle Use, No Respiratory Distress, Decreased Breath Sounds Cardiovascular: Regular Rate, Rhythm, No Gallop, No JVD, No Murmur, Normal Peripheral Pulses Gastrointestinal: Normal Bowel Sounds, No Organomegaly, No Pulsatile Mass, Soft, Tenderness Back: Normal Inspection, No CVA Tenderness, No Vertebral Tenderness Extremity: Normal Capillary Refill, Normal Inspection, Normal Range of Motion, Non Tender, No Calf Tenderness, Pedal Edema Neurologic/Psychiatric: Alert, Oriented x3, No Motor/Sensory Deficits, Normal 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 FIM Transfers Therapy Code Descriptions/Definitions Functional [place] Measure: 0=Not Assessed/NA 4=Minimal Assistance 1=Total Assistance 5=Supervision or Setup 2=Maximal Assistance 6=Modified [place] 3=Moderate Assistance 7=Complete IndependenceSCALE: Activities may be completed with or without assistive devices. 0-Sthetywshk-ltorlmh completes the activity by him/herself with no assistance from a helper. 5-Set-up or Clean-up Assistance-helper sets up or cleans up; patient completes activity. [place] assists only prior to or following the activity. 4-Supervision or Touching Assistance-helper provides verbal cues and/or touching/steadying and/or contact guard assistance as patient completes activity. Assistance may be provided throughout the activity or intermittently. 3-Partial/Moderate Assistance-helper does LESS THAN HALF the effort. [place] lifts, holds or supports trunk or limbs, but provides less than half the effort. 2-Substantial/Maximal Assistance-helper does MORE THAN HALF the effort. [place] lifts or holds trunk or limbs and provides more than half the effort. 6-Ekjkhjnnw-qmuthz does ALL the effort. Patient does none of the effort to complete the activity. Or, the assistance of 2 or more helpers is required for the patient to complete the activity. If activity was not attempted, code reason: 7-Patient Refused. 9-Not Applicable-not attempted and the patient did not perform the activity before the current illness, exacerbation or injury. 10-Not Attempted due to Environmental Limitations-(lack of equipment, weather restraints, etc.). 88-Not Attempted due to Medical Conditions or Safety Concerns. Roll Left to Right (QC): 3 Sit to Lying (QC): 3 Sit to Stand (QC): 2 Chair/Bba-en-Dxeyc Xfer(QC): 3 Car Transfer (QC): 1 Gait Training Does the Patient Walk?: No and Walking Goal IS indicated Walk 10 feet (QC): 88 Walk 50 ft with 2 Turns(QC): 88 Walk 150 ft (QC): 88 Walking 10ft/uneven surface-QC: 88 Wheelchair Training Does the Pt Use a Wheelchair?: Yes Distance: 150'x2 Wheel 50 ft with 2 turns (QC): 3 Wheel 150 ft (QC): 3 Type of Wheelchair: Manual Stair Training 1 Step (curb) (QC): 88 4 Steps (QC): 88 12 Steps (QC): 88 Balance Picking up an Object (QC): 88 ADL-Treatment Eating (QC): 10 Oral Hygiene (QC): 7 Shower/Bathe Self (QC): 2 (Pt. requires max assist to shower self. Pt. unable to cleanse sharon area or LE. ) Upper Body Dressing (QC): 2 (Max assist at bed level.) Lower Body Dressing (QC): 1 (Dependent assist to don shorts at bed level.) On/Off Footwear (QC): 2 (Max assist to don left slipper sock. 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 Ischemic heart disease PVD severe Right BKA Smoker CARRIE COPD Urinary retention DM OOC Plan: Pain meds IRF protocol PVR Dr Sal appreciated Insulin (1) Critical illness myopathy (2) Abdominal pain Status: Acute (3) Hypoxia Status: Acute (4) Anemia Status: Chronic (5) Diabetes mellitus Status: Chronic (6) COPD (chronic obstructive pulmonary disease) Status: Chronic (7) Chronic respiratory failure with hypoxia (8) Cardiac pacemaker Status: Chronic (9) Coronary artery disease Status: Chronic (10) DVT prophylaxis Status: Acute (11) S/P partial resection of colon Status: Acute (12) 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
[2020-04-11] MEDS: TAMSULOSIN 0.4 MG (FLOMAX) CAP PO SCH ×2 (09:30→21:27)
[2020-04-11] MEDS: ASPIRIN E.C. 81 MG (ECOTRIN) TAB PO SCH (09:30)
[2020-04-11] MEDS: PANTOPRAZOLE 40 MG (PROTONIX) TAB PO SCH ×2 (09:30→21:28)
[2020-04-11] MEDS: GABAPENTIN 300 MG (NEURONTIN) CAP PO SCH ×2 (09:30→21:32)
[2020-04-11] MEDS: FINASTERIDE (PROSCAR) 5 MG TAB PO SCH (09:31)
[2020-04-11] MEDS: DOCUSATE SODIUM 100 MG (COLACE) CAP PO SCH ×2 (09:32→21:27)
[2020-04-11] MEDS: polyethylene glycoL POWDER 17 GM (MIRALAX) PACK PO SCH ×2 (09:33→22:43)
[2020-04-11] MEDS: SENNA W/DOCUSATE (SENOKOT S) TABLET PO SCH ×2 (09:33→21:28)
--- NOTE | 2020-04-11 11:00 | NUR ---
DR. MORENO NOTIFIED OF CONSULT. EKG AND ECHO DONE.
--- NOTE | 2020-04-11 11:27 | Progress Note - Urology ---
Progress Note-Urology Progress Notes/Assess & Plan Progress/Assessment & Plan UNABLE TO VOID, AZEVEDO BACK IN. PLAN FLEX CYSTO TOMORROW Final Diagnosis URINE RETENTION DORA MARINO MD April 11, 2020 11:27
--- NOTE | 2020-04-11 11:36 | NUR ---
CM/SS ADMISSION Patient was admitted to ARU from [facility] 04/09/20 for critical illness myopathy, status post partial colectomy 04/03/20 for ischemic bowel. Other comorbidities are, in part, DMII, COPD, cardiac pacemaker, CAD, above knee amputation right lower extremity, nicotine dependence. Patient resides at home with his spouse, Faby Keene and his goal is to return there when stable and safe to do so. Patient reports he was active within his level of functioning including outdoor activities like mowing, raking. 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 Per his self reporting and daughter input, he has remained active for his age of 84 years until acute onset of illness and subsequent surgery. PCP: Formerly with Dr. Evans, now Dr. Rawls at [facility]. [facility] INSURANCE: Medicare, [place] Supplement DME: Has wheelchair (may need to be adjusted to height?), right prosthetic leg, shower chair, home O2 concentrator and portable with Tara Schofield ramp. Patient indicated his spouse buys used DME for him at sales if she thinks he can use it. HHC: Was current with HHC services from [facility] [place] [facility] just prior to hospitalization. Recommend resume at discharge, likely for RN, PT OT. BARRIERS TO DISCHARGE: Patient strength and stamina, recovery from surgery, maximizing level of functioning. His amputation is long-standing with prosthesis and indications are this was not a hindrance to his everyday life. CONTACTS: Patient had 5 children, 4 sons and 1 daughter. Three of his sons have leaving them with only two living children. Faby Arroyomarlen, Spouse Marissa Ward, Daughter [address] [place] [id number] Alexis Keene, Son [place], [place] Patient understood the purpose and process of the weekly Patient Care Conference and that his first review will be 04/17/20. Belt Sewer did speak with his daughter Marissa to update as well and provided contact information for future reference. Unable to reach patient's spouse this date.
--- NOTE | 2020-04-11 11:59 | Occupational Ther Daily Note ---
OT Current Status-Daily Note Subjective Pt. reports discomfort in abdomen and scrotal area with movement, but does not report pain level. Nursing is aware and it is not time for more pain medication. Appearance Pt. up in wheelchair when OT entered room. Mental Status/Objective Patient Orientation: Person ADL-Treatment Therapy Code Descriptions/Definitions Functional [place] Measure: 0=Not Assessed/NA 4=Minimal Assistance 1=Total Assistance 5=Supervision or Setup 2=Maximal Assistance 6=Modified [place] 3=Moderate Assistance 7=Complete IndependenceSCALE: Activities may be completed with or without assistive devices. 6-Dosraxjetz-girjark completes the activity by him/herself with no assistance from a helper. 5-Set-up or Clean-up Assistance-helper sets up or cleans up; patient completes activity. [place] assists only prior to or following the activity. 4-Supervision or Touching Assistance-helper provides verbal cues and/or to uching/steadying and/or contact guard assistance as patient completes activity. Assistance may be provided throughout the activity or intermittently. 3-Partial/Moderate Assistance-helper does LESS THAN HALF the effort. [place] lifts, holds or supports trunk or limbs, but provides less than half the effort. 2-Substantial/Maximal Assistance-helper does MORE THAN HALF the effort. [place] lifts or holds trunk or limbs and provides more than half the effort. 8-Wyfsarteg-utfikf does ALL the effort. Patient does none of the effort to complete the activity. Or, the assistance of 2 or more helpers is required for the patient to complete the activity. If activity was not attempted, code reason: 7-Patient Refused. 9-Not Applicable-not attempted and the patient did not perform the activity before the current illness, exacerbation or injury. 10-Not Attempted due to Environmental Limitations-(lack of equipment, weather restraints, etc.). 88-Not Attempted due to Medical Conditions or Safety Concerns. On/Off Footwear: 1 Toileting Hygiene (QC): 1 Other Treatment Pt. up in chair in room. Pt. wanting to go back to bed when OT enters room. OT explains that pt. has more therapy. Pt. becomes very agitated. Pt. verbalizes that his bottom hurts, and that it needs looked at. OT agrees and has nursing come into room to assist with transfer and rear sharon care. Pt. becomes upset again stating that he doesnt want to stand. Every suggestion that is presented for pt., he does not like and will not agree to. Pt. does finally agree to stand at sink. Max x 2 for sit-laundry machine mechanic front of sink. Pt. becomes incontinent of stool and begins having bowel movement. Becomes agitated again at nursing and therapist while they cleanse area and change padding in chair. Pt. sits back down and refuses to don shorts for therapy gym, as he has swelling in groin area. OT gently agrees and states that he can be covered with blanket. Pt. becomes upset and states that he isn't going anywhere naked. OT again then encourages him to transfer to bed, and therapy will be performed in bed. Pt. becomes upset at this and then insists on going to therapy gym. Pt. propels wheelchair backward to therapy gym. OT provides gentle retrograde massage to bilateral UE due to swelling. Pt. seems to like this. Pt. states that he will perform arm bike. Becomes agitated when OT suggests doing 10 minutes. OT encourages him to stop whenever he needs to, or whenever he feels short of breath. Pt. becomes upset when nursing needs to take his blood sugar at 3 minutes. After they do, he finishes to 6 minutes and states that he is done. OT allows him to rest and begins transfer back to room. Pt. becomes agitated that he is not allowed to do more on bike. Once in room, pt. is transferred to bed with max x 2. Prosthetic LE is removed, and pt. is positioned on left side for rear pressure relief. OT and PT talked about completing co-treatment, as pt. is not tolerating two sessions. Pt. is angry at most suggestions this date, and does not seem to understand rehab process. All needs are met. Education OT Patient Education: Correct positioning, Exercise program, Modified ADL techniques, Progress toward Goal/Update tx plan, Purpose of tx/functional activities, Reviewed precautions, Rehab process, Transfer techniques Teaching Recipient: Patient Teaching Methods: Demonstration, Discussion Response to Teaching: Verbalize Understanding, Return Demonstration OT Short Term Goals Short Term Goals Time Frame: April 23, 2020 Eatin Oral hygiene: 4 Toileting hygiene: 3 Shower/bathe self: 3 Upper body dressin Lower body dressin Putting on/taking off footwear: 3 OT Military Police Officer Goals Detention Goals Time Frame: Apr 30, 2020 Eating (QC): 6 Oral Hygiene (QC): 5 Toileting Hygiene (QC): 4 Shower/Bathe Self (QC): 3 Upper Body Dressing (QC): 5 Lower Body Dressing (QC): 4 On/Off Footwear (QC): 5 Additional Goals: 1-Demonstrate ADL Tasks, 2-Verbalize Understanding, 3- ImproveStrength/Katlyn 1=Demonstrate adherence to instructed precautions during ADL tasks. 2=Patient will verbalize/demonstrate understanding of assistive devices/modifications for ADL. 3=Patient will improve strength/tolerance for activity to enable patient to perform ADL's. OT Education/Plan Problem List/Assessment Assessment: Decreased Activ Tolerance, Decreased UE Strength, Dependent Transfers, Edema, Impaired Bed Mobility, Impaired Funct Balance, Impaired I ADL's, Impaired Self-Care Skills Discharge Recommendations Plan/Recommendations: Continue POC Therapy Discharge Recommendati: 24 Hour Supervision Treatment Plan/Plan of Care Treatment,Training & Education: Yes Patient would benefit from OT for education, treatment and training to promote independence in ADL's, mobility, safety and/or upper extremity function for ADL's. Plan of Care: ADL Retraining, Functional Mobility, Group Exercise/Act as Ind, UE Funct Exercise/Act Treatment Duration: Apr 30, 2020 Frequency: At least 5 of 7 days/Wk (IRF) Estimated Hrs Per Day: Other (Waiver(60 minutes per day until pt. can increase activity level.)) Agreement: Yes Rehab Potential: Fair Time/GCodes Start Time: 10:00 Stop Time: 11:00 Total Time Billed (hr/min): 60 Billed Treatment Time 1, ADL x 15minutes, FA x 45minutes TELLY MACK OT April 11, 2020 11:59
--- NOTE | 2020-04-11 12:00 | Consultation-Cardiology ---
HPI-Cardiology Cardiology Consultation: Date of Consultation 04/11/20 Time Seen by a Provider: 11:45 Date of Admission 04-09-2020 Attending Physician Mirna Ballesteros DO Admitting Physician Mindy,Local Physician Consulting Physician Estefani Nur MD HPI: Chief Complaint: LE swelling Dyspnea Mr. Keene is an 84 year old male admitted to [facility] after undergoing a colon resection on April 04, 2020. He states he has had increasing swelling of he legs, scrotum, arms and hands since he's been in the hospital. He reports increasing SOB for the last couple days. He denies any c/o CP, palpitations, syncope or near syncope. He reports his primary astrophysics teacher is Dr. Parada with [employer] in [place], [place]. He reports he does have a pacemaker present that is followed by his primary astrophysics teacher. He is unsure of his last device check, but thinks it may have been last month. He does home checks. He is a poor historian and states his would know. He denies any n/v/d. 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)) Ears/Nose/Throat: No epistaxis, No recent hearing loss Respiratory: As described under HPI Cardiovascular: As described under HPI Gastrointestinal: No constipation, No diarrhea, No nausea, No vomiting Genitourinary: As described under HPI, dysuria; No hematuria, No urine f requency changes, No urine coloration changes Musculoskeletal: other (R BKA) Skin: No rash on exposed areas, No ulcerations on exposed areas Psychiatric/Neurological: depression; No anxiety, No seizure, No focal weakness, No syncope Hematologic: No bleeding abnormalities All Other Systems Reviewed Negative Unless Noted: Yes QGN-[id number]-Cfhvzg Hx Patient Social History Marrital Status: Employed/Student: retired Alcohol Use: Denies Use Recreational Drug Use: No Smoking Status: Former Smoker Former smoker/When Quit: Jan 12, 1994 Type Used: Cigars 2nd Hand Smoke Exposure: Yes Recent Foreign Travel: No Recent Infectious Disease Expo: No Physical Abuse Screen: No Sexual Abuse: No Immunizations Up To Date Tetanus Booster (TDap): Unknown Date of Pneumonia Vaccine: Sep 29, 2012 Past Medical History PMH As described under Assessment. Family Medical History Family Medical History: He reports his father CAD with an [place] in his later years. He reports his mother had CAD. He reports a son who had CAD, unsure of age of diagnosis. Family History: Diabetes mellitus GRANDMOTHER FH: leukemia G8 BROTHER Testicular cancer 19 FATHER Allergies and Home Medications Allergies Coded Allergies: No Known Drug Allergies (Verified , 10/15/09) Home Medications Ascorbic Acid 500 Mg Capsule, 500 MG PO DAILY, (Reported) Aspirin 325 Mg Tablet.dr, 325 MG PO DAILY, (Reported) Atenolol 25 Mg Tablet, 25 MG PO HS, (Reported) Calcium Carbonate 600 Mg Tablet, 600 MG PO DAILY, (Reported) Finasteride 5 Mg Tablet, 5 MG PO D, (Reported) Fluoxetine HCl 20 Mg Capsule, 20 MG PO HS, (Reported) Furosemide 20 Mg Tablet, 20 MG PO DAILY, (Reported) Gabapentin 300 Mg Capsule, 300 MG PO BID, (Reported) Glipizide 10 Mg Tablet, 10 MG PO HS, (Reported) Hydrocodone/Acetaminophen 1 Each Tablet, 1 EA PO BID PRN for PAIN-MODERATE (5- 7), (Reported) Metformin HCl 1,000 Mg Tablet, 1,000 MG PO BID, (Reported) Multivit-Min/FA/Lycopene/Lut 1 Each Tablet, 1 TAB PO DAILY, (Reported) Peg 400/Hypromellose/Glycerin 15 Ml Drops, 2 DROPS OU PRN PRN for DRY EYES, (Reported) Sertraline HCl 50 Mg Tablet, 50 MG PO HS, (Reported) Tamsulosin HCl 0.4 Mg Cap, 0.4 MG PO HS, (Reported) Patient Home Medication List Home Medication List Reviewed: Yes Physical Exam-Cardiology Physical Exam Vital Signs/I&O 04/11/20 04/11/20 05:35 07:00 Temp 36.1 Pulse 70 Resp 18 B/P (MAP) 176/70 (105) Pulse Ox 94 96 O2 Delivery Nasal Cannula Nasal Cannula O2 Flow Rate 1.00 1.00 04/11/20 00:00 Intake Total 700 ml Output Total 1500 ml Balance -800 ml Capillary Refill : Less Than 3 Seconds Constitutional: AAO x 3, well-developed, well-nourished HEENT: hearing is well preserved Neck: No carotid bruit; carotid pulses are 2 + bilaterally Respiratory: No accessory muscle use, No respiratory distress; other (diminished lower lobes with prolonged exp phase) Cardiovascular: regular rate-rhythm; No JVD; S1 and S2, systolic murmur Gastrointestinal: No tender; soft, round, other (abd incisions x [address], edges approx, no evidence of redness or drainage) Genital/Rectal: other (scrotal swelling) Extremities: other (pitting edema bilat LE; upper extremities; hands. R BKA) Neurologic/Psychiatric: grossly intact (moves extremities) Skin: No rash on exposed areas, No ulcerations on exposed areas Data Review Labs Laboratory Tests 04/10/20 15:34: Glucometer 217H 04/10/20 20:12: Glucometer 206H 04/11/20 05:39: Glucometer 139H 04/11/20 10:43: Glucometer 137H Laboratory Tests 04/10/20 05:40 ECG Impression ECG Comment AV paced A/P-Cardiology Assessment/Admission Diagnosis Increasing SOB Bilat LE swelling CAD - reported h/o CABG x 4 vessel - date and details unknown PPM - reports followed by Dr. Parada his primary astrophysics teacher - details unknown H/O R BKA - per pt it was done at the time of CABG - details unknown Open colon resection on 04-03-[address] Henderson d/t ischemic colon DM 2 HTN HLD Macular degeneration H/O tobaccoism - states he has not smoked in years Prob COPD BPH with urinary retention and hematuria - managed per Dr. Sal Discussion and Recomendations Anasarca - treat with diuretics Echocardiogram to eval structure and function Request records from [facility] regarding CABG and pacemaker Urinary retention/hematuria being managed by Dr. Sal Continue ASA d/t reported h/o CAD/PAD Adjust antihypertensives as indicated Monitor lab closely Replace electrolytes as indicated Further recs will be based on his hospital course We would like to thank Dr. Ballesteros for this consult Clinical Quality Measures DVT/VTE Risk/Contraindication: Risk Factor Score Per Nursin RFS Level Per Nursing on Admit: 4+=Very High TRACIE NAIK April 11, 2020 12:00
--- NOTE | 2020-04-11 12:25 | Physical Therapy Daily Note ---
PT Daily Note-Current Subjective Pt is sitting in [facility] upon arrival. Pt is agitated and has many complaints during Rx. Nursing is aware if pain and discomfort & pain med given. Pain Numeric Pain Scale: 5-Moderate Pain Location: Left Location Body Site: Knee Pain Description: Tightness Comment: Pain from swollen L hand, leg as well as scrotum. Mental Status Patient Orientation: Person, Place, Situation Attachments: Oxygen Pt reports SOA despite O2 recorded at 97%. Nurse aware. Transfers SCALE: Activities may be completed with or without assistive devices. 1-Akyyypblem-mzsqica completes the activity by him/herself with no assistance from a helper. 5-Set-up or Clean-up Assistance-helper sets up or cleans up; patient completes activity. [place] assists only prior to or following the activity. 4-Supervision or Touching Assistance-helper provides verbal cues and/or to uching/steadying and/or contact guard assistance as patient completes activity. Assistance may be provided throughout the activity or intermittently. 3-Partial/Moderate Assistance-helper does LESS THAN HALF the effort. [place] lifts, holds or supports trunk or limbs, but provides less than half the effort. 2-Substantial/Maximal Assistance-helper does MORE THAN HALF the effort. [place] lifts or holds trunk or limbs and provides more than half the effort. 6-Ysuhxlwoz-ooekri does ALL the effort. Patient does none of the effort to complete the activity. Or, the assistance of 2 or more helpers is required for the patient to complete the activity. If activity was not attempted, code reason: 7-Patient Refused. 9-Not Applicable-not attempted and the patient did not perform the activity before the current illness, exacerbation or injury. 10-Not Attempted due to Environmental Limitations-(lack of equipment, weather restraints, etc.). 88-Not Attempted due to Medical Conditions or Safety Concerns. Weight Bearing Right Lower Extremity: Right Weight Bearing/Tolerated Left Lower Extremity: Left Weight Bearing/Tolerated hx of rbka Gait Training Does the Patient Walk?: No and Walking Goal IS indicated Wheelchair Training Does the Pt Use a Wheelchair?: Yes Type of Wheelchair: Manual Exercises Seated Therapy Exercises: Ankle pumps, Long arc quads, Hip flexion, Kicking activity, Hip abd/add, Glut set Seated Reps: 20 (2 sets of 20) Treatments Pt reports pain upon arrival. Nurse brings pain med. Discussion between pt, Nurse & SUPERVISOR RECEIVING AND PROCESSING about pt's medical limitations (SOA, swelling, pain). BP is 136/58 with O2 of 97%. Pt agrees to Seated Ex at [facility] due to reported weakness. Pt is encouraged to complete Supine Ex and transfers but pt refuses, states pain & swelling prevents completion. Pt resting in [facility] at end of Rx with all needs met, call light next to pt. Nurse to check placement of Clark, and sacral bandage. Assessment Current Status: Fair Progress Pain, swelling and SOA limit pt's participation. PT Short Term Goals Short Term Goals Time Frame: April 16, 2020 Roll Left & Right: 6 Sit to lyin Lying to sitting on side of be: 4 Sit to stand: 3 Chair/jac-rt-mkymb transfer: 3 Walk 10 feet: 3 PT [facility] Goals Nursing Home Goals PT [facility] [employer] Goals Time Frame: Apr 30, 2020 Roll Left & Right (QC): 6 Sit to Lying (QC): 6 Lying-Sitting on Side/Bed(QC): 6 Sit to Stand (QC): 4 (SBA) Chair/Sqz-ks-Vhnia Xfer(QC): 4 (SBA) Toilet Transfer (QC): 4 Car Transfer (QC): 3 Does the Patient Walk: No and Walking Goal IS indicated Walk 10 feet (QC): 4 Walk 50ft with 2 Turns (QC): 4 Walk 150 ft (QC): 88 Walking 10ft on Uneven Surface: 88 1 Step (curb) (QC): 88 4 Steps (QC): 88 12 Steps (QC): 88 Picking up an Object (QC): 88 Wheel 50 feet with 2 turns (QC: 6 Wheel 150 feet: 6 PT Plan Problem List Problem List: Activity Tolerance, Functional Strength, Safety, Balance, Gait, Transfer, Bed Mobility, ROM Treatment/Plan Treatment Plan: Continue Plan of Care Treatment Plan: Bed Mobility, Education, Functional Activity Katlyn, Functional Strength, Group Therapy, Gait, Safety, Therapeutic Exercise, Transfers Treatment Duration: Apr 30, 2020 Frequency: modified program 60 min/day, advance as patient is able Estimated Hrs Per Day: 1 hour per day Patient and/or Family Agrees t: Yes Safety Risks/Education Patient Education: Correct Positioning, Disease Process, Safety Issues Teaching Recipient: Patient Teaching Methods: Discussion Response to Teaching: Reinforcement Needed Time/GCodes Time In: 800 Time Out: 900 Total Billed Treatment Time: 60 Total Billed Treatment 1, FA x2 (25m) & EX x2 (35m) SHARLA WATKINS SUPERVISOR RECEIVING AND PROCESSING April 11, 2020 12:25
[2020-04-11] MEDS ORDERED: FUROSEMIDE 40 MG/4 ML INJ (LASIX) IVP ONE (12:30)
[2020-04-11] MEDS ORDERED: KCL 20 MEQ TAB (K-DUR) PO ONE (12:30)
--- NOTE | 2020-04-11 13:00 | NUR ---
DR. MARINO WAS HERE TO SEE PATIENT. PLAN FOR CYSTO AT BEDSIDE AT 1200 TOMORROW. RELEASE FOR INFO FAXED TO DR. MIRAMONTES FOR PACEMAKER AND CARDIAC SCANS AND TO DR. Juliann LAZAR FOR CABG INFO.
--- NOTE | 2020-04-11 14:25 | Consultation-Cardiology ---
HPI-Cardiology Cardiology Consultation: Date of Consultation 04/11/20 Time Seen by a Provider: 13:30 Date of Admission Attending Physician Mirna Ballesteros DO Admitting Physician Mindy,Local Physician Consulting Physician JOSIAH MORENO MD, FACP, FACC HPI: Chief Complaint: CC: limb swelling (venkat L arm), shortness of breath HPI Mr. Keene is an 84 year old male admitted to [facility] after undergoing a colon resection on April 04, 2020. He states he has had increasing swelling of he legs, scrotum, arms and hands (more on the L arm) since he's been in the hospital. He reports increasing SOB for the last couple days. He denies any c/o CP, palpitations, syncope or near syncope. He reports his primary staffing mgr is Dr. Tal Mackey in [place], [place]. He reports he does have a pacemaker present that is followed by his primary staffing mgr. He is unsure of his last device check, but thinks it may have been last month. He does home checks. He is a poor historian and states his would know. He denies any n/v/d. 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)) Ears/Nose/Throat: No epistaxis, No recent hearing loss Respiratory: As described under HPI Cardiovascular: As described under HPI Gastrointestinal: No constipation, No diarrhea, No nausea, No vomiting Genitourinary: As described under HPI, dysuria; No hematuria, No urine frequency changes, No urine coloration changes Musculoskeletal: other (R BKA) Skin: No rash on exposed areas, No ulcerations on exposed areas Psychiatric/Neurological: depression; No anxiety, No seizure, No focal weakness, No syncope Hematologic: No bleeding abnormalities All Other Systems Reviewed Negative Unless Noted: Yes QGF-Jyvtty-Odhiuv Hx Patient Social History Marrital Status: Employed/Student: retired Alcohol Use: Denies Use Recreational Drug Use: No Smoking Status: Former Smoker Former smoker/When Quit: Jan 12, 1994 Type Used: Cigars 2nd Hand Smoke Exposure: Yes Recent Foreign Travel: No Recent Infectious Disease Expo: No Physical Abuse Screen: No Sexual Abuse: No Immunizations Up To Date Tetanus Booster (TDap): Unknown Date of Pneumonia Vaccine: Sep 29, 2012 Past Medical History PMH As described under Assessment. Family Medical History Family Medical History: He reports his father CAD with an GA in his later years. He reports his mother had CAD. He reports a son who had CAD, unsure of age of diagnosis. Family History: Diabetes mellitus GRANDMOTHER FH: leukemia G8 BROTHER Testicular cancer 19 FATHER Allergies and Home Medications Allergies Coded Allergies: No Known Drug Allergies (Verified , 10/15/09) Home Medications Ascorbic Acid 500 Mg Capsule, 500 MG PO DAILY, (Reported) Aspirin 325 Mg Tablet.dr, 325 MG PO DAILY, (Reported) Atenolol 25 Mg Tablet, 25 MG PO HS, (Reported) Calcium Carbonate 600 Mg Tablet, 600 MG PO DAILY, (Reported) Finasteride 5 Mg Tablet, 5 MG PO D, (Reported) Fluoxetine HCl 20 Mg Capsule, 20 MG PO HS, (Reported) Furosemide 20 Mg Tablet, 20 MG PO DAILY, (Reported) Gabapentin 300 Mg Capsule, 300 MG PO BID, (Reported) Glipizide 10 Mg Tablet, 10 MG PO HS, (Reported) Hydrocodone/Acetaminophen 1 Each Tablet, 1 EA PO BID PRN for PAIN-MODERATE (5- 7), (Reported) Metformin HCl 1,000 Mg Tablet, 1,000 MG PO BID, (Reported) Multivit-Min/FA/Lycopene/Lut 1 Each Tablet, 1 TAB PO DAILY, (Reported) Peg 400/Hypromellose/Glycerin 15 Ml Drops, 2 DROPS OU PRN PRN for DRY EYES, (Reported) Sertraline HCl 50 Mg Tablet, 50 MG PO HS, (Reported) Tamsulosin HCl 0.4 Mg Cap, 0.4 MG PO HS, (Reported) Patient Home Medication List Home Medication List Reviewed: Yes Physical Exam-Cardiology Physical Exam Vital Signs/I&O 04/11/20 04/11/20 05:35 07:00 Temp 36.1 Pulse 70 Resp 18 B/P (MAP) 176/70 (105) Pulse Ox 94 96 O2 Delivery Nasal Cannula Nasal Cannula O2 Flow Rate 1.00 1.00 04/11/20 00:00 Intake Total 700 ml Output Total 1500 ml Balance -800 ml Capillary Refill : Less Than 3 Seconds Constitutional: AAO x 3, well-developed, well-nourished HEENT: hearing is well preserved Neck: No carotid bruit; carotid pulses are 2 + bilaterally Respiratory: No accessory muscle use, No respiratory distress; other (diminished lower lobes with prolonged exp phase) Cardiovascular: regular rate-rhythm; No JVD; S1 and S2, systolic murmur Gastrointestinal: No tender; soft, round, other (abd incisions x [address], edges approx, no evidence of redness or drainage) Genital/Rectal: other (scrotal swelling) Extremities: other (pitting edema bilat LE; upper extremities; hands. R BKA) Neurologic/Psychiatric: grossly intact (moves extremities) Skin: No rash on exposed areas, No ulcerations on exposed areas Data Review Labs Laboratory Tests 04/10/20 15:34: Glucometer 217H 04/10/20 20:12: Glucometer 206H 04/11/20 05:39: Glucometer 139H 04/11/20 10:43: Glucometer 137H Laboratory Tests 04/10/20 05:40 A/P-Cardiology Assessment/Admission Diagnosis Increasing SOB Arm and leg swelling CAD - reported h/o CABG x 4 vessel - date and details unknown PPM - reports followed by Dr. Parada his primary staffing mgr - details unknown H/O R BKA - per pt it was done at the time of CABG - details unknown Open colon resection on 04-03-[address] Henderson d/t ischemic colon DM 2 HTN HLD Macular degeneration H/O tobaccoism - states he has not smoked in years Prob COPD BPH with urinary retention and hematuria - managed per Dr. Sal Discussion and Recomendations * Treat swelling with diuretics * Echocardiogram to eval structure and function * Request records from [facility] regarding CABG and pacemaker * Urinary retention/hematuria being managed by Dr. Sal * Continue ASA d/t reported h/o CAD/PAD * Adjust antihypertensives as indicated * Monitor lab closely * Replace electrolytes as indicated * Further recs will be based on his hospital course * We would like to thank Dr. Ballesteros for this consult Clinical Quality Measures DVT/VTE Risk/Contraindication: Risk Factor Score Per Nursin RFS Level Per Nursing on Admit: 4+=Very High JOSIAH MORENO MD FACP FAC CCDS April 11, 2020 14:25
--- NOTE | 2020-04-11 15:00 | NUR ---
DENIES PAIN EXCEPT FOR BUTTOCK PAIN FROM OPEN SORE. PER DYLAN, WOUND NURSE, USE BUTT PASTE RATHER THAN ALLEVYN. WAS FRUSTRATED AND UNPLEASANT THIS AM, BUT MOOD MUCH MORE CONGENIAL THIS AFTERNOON.
[2020-04-11] MEDS: ZINC OXIDE 16% OINT (BUTT PASTE) 57 GM TUBE TOP PRN ×2 (16:20→17:28)
[2020-04-11 17:04] VITALS: BP 144/72
[2020-04-11] MEDS: ENOXAPARIN 40 MG/0.4 ML (LOVENOX) SYR SC SCH (18:57)
[2020-04-11] MEDS: MELATONIN 3 MG TABLET PO PRN (21:28)
[2020-04-11] MEDS: FLUoxetine HCL 20 MG (PROzac) CAP PO SCH (21:28)
[2020-04-11] MEDS: ATENOLOL 25 MG (TENORMIN) TAB PO SCH (21:28)
[2020-04-12] MEDS: inSUlin ASPART (NovoLOG) 1 UNIT/0.01 ML (CHARGE PER UNIT) SC SCH ×4 (05:31→22:04)
[2020-04-12] MEDS: PIPERACILLIN/TAZO 4.5 GM/NS 100 ML IV SCH ×6 (05:58→21:53)
[2020-04-12 06:10] LABS: HEMOGLOBIN 8.9 G/DL (13.3-17.7); MEAN PLATELET VOLUME 9.8 FL (7.4-10.4); RED CELL DISTRIBUTION WIDTH 14.6 % (10.0-14.5); WHITE BLOOD COUNT 6.3 10^3/uL (4.3-11.0)
[2020-04-12 06:29] LABS: ALBUMIN 2.5 GM/DL (3.2-4.5); BILIRUBIN,TOTAL 0.5 MG/DL (0.1-1.0); CALCIUM 7.9 MG/DL (8.5-10.1); CREATININE SERUM 1.4 MG/DL (0.60-1.30); MAGNESIUM 1.6 MG/DL (1.6-2.4); POTASSIUM 3.8 MMOL/L (3.6-5.0)
[2020-04-12 06:37] VITALS: BP 137/69
[2020-04-12] MEDS: RT-ALBUTEROL/IPRATROPIUM 3 ML (DUONEB) VIAL INH SCH ×4 (06:37→19:10)
[2020-04-12] MEDS: KCL 20 MEQ TAB (K-DUR) PO SCH (06:48)
--- NOTE | 2020-04-12 08:00 | NUR ---
O2 WAS TITRATED TO ROOM AIR BY R.T. PATIENT DENIES SOB THIS AM AND EDEMA IMPROVED.
--- NOTE | 2020-04-12 08:47 | PM&R Progress Note ---
Subjective HPI/CC On Admission Date Seen by Provider: April 12, 2020 Time Seen by Provider: 09:00 Subjective/Events-last exam Edema improved with Lasix by Cardiology. [id number] output Clark back in failed void residual trial and cysto will be performed today then DC it Buttock ulcer, wound care consulted Pt feels like he is short of breath and is retaining fluid Pacemaker maintained by Dr. Parada Overall feels like he is improved with breathing and edema Checked meds and labs Conferred with RN Reviewed therapy notes Review of Systems General: Fatigue Pulmonary: Dyspnea Cardiovascular: Edema Genitourinary: Retention Neurological: Weakness Objective Exam Vital Signs Vital Signs Date Time Temp Pulse Resp B/P (MAP) Pulse Ox O2 Delivery O2 Flow Rate FiO2 04/13/20 06:59 36.8 70 18 147/64 (91) 96 Nasal Cannula 1.00 Capillary Refill : Less Than 3 Seconds General Appearance: No Apparent Distress, WD/WN, Chronically ill, Obese HEENT: PERRL/EOMI, Normal ENT Inspection, Pharynx Normal Neck: Full Range of Motion, Normal Inspection, Non Tender, Supple, Carotid Bruit Respiratory: Chest Non Tender, Lungs Clear, No Accessory Muscle Use, No Respiratory Distress, Decreased Breath Sounds Cardiovascular: Regular Rate, Rhythm, No Gallop, No JVD, No Murmur, Normal Peripheral Pulses Gastrointestinal: Normal Bowel Sounds, No Organomegaly, No Pulsatile Mass, Soft, Tenderness Back: Normal Inspection, No CVA Tenderness, No Vertebral Tenderness Extremity: Normal Capillary Refill, Normal Inspection, Normal Range of Motion, Non Tender, No Calf Tenderness, Pedal Edema Neurologic/Psychiatric: Alert, Oriented x3, No Motor/Sensory Deficits, Normal Mood/Affect, 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 FIM Transfers Therapy Code Descriptions/Definitions Functional [place] Measure: 0=Not Assessed/NA 4=Minimal Assistance 1=Total Assistance 5=Supervision or Setup 2=Maximal Assistance 6=Modified [place] 3=Moderate Assistance 7=Complete IndependenceSCALE: Activities may be completed with or without assistive devices. 2-Srwiifvrdo-vhlmsca completes the activity by him/herself with no assistance from a helper. 5-Set-up or Clean-up Assistance-helper sets up or cleans up; patient completes activity. [place] assists only prior to or following the activity. 4-Supervision or Touching Assistance-helper provides verbal cues and/or touching/steadying and/or contact guard assistance as patient completes activity. Assistance may be provided throughout the activity or intermittently. 3-Partial/Moderate Assistance-helper does LESS THAN HALF the effort. [place] lifts, holds or supports trunk or limbs, but provides less than half the effort. 2-Substantial/Maximal Assistance-helper does MORE THAN HALF the effort. [place] lifts or holds trunk or limbs and provides more than half the effort. 2-Waxkxslxu-jixvsf does ALL the effort. Patient does none of the effort to complete the activity. Or, the assistance of 2 or more helpers is required for the patient to complete the activity. If activity was not attempted, code reason: 7-Patient Refused. 9-Not Applicable-not attempted and the patient did not perform the activity before the current illness, exacerbation or injury. 10-Not Attempted due to Environmental Limitations-(lack of equipment, weather restraints, etc.). 88-Not Attempted due to Medical Conditions or Safety Concerns. Roll Left to Right (QC): 3 Sit to Lying (QC): 3 Sit to Stand (QC): 2 Chair/Mxg-xg-Qnjdm Xfer(QC): 3 Car Transfer (QC): 1 Gait Training Does the Patient Walk?: No and Walking Goal IS indicated Walk 10 feet (QC): 88 Walk 50 ft with 2 Turns(QC): 88 Walk 150 ft (QC): 88 Walking 10ft/uneven surface-QC: 88 Wheelchair Training Does the Pt Use a Wheelchair?: Yes Distance: 150'x2 Wheel 50 ft with 2 turns (QC): 3 Wheel 150 ft (QC): 3 Type of Wheelchair: Manual Stair Training 1 Step (curb) (QC): 88 4 Steps (QC): 88 12 Steps (QC): 88 Balance Picking up an Object (QC): 88 ADL-Treatment Eating (QC): 10 Oral Hygiene (QC): 7 Shower/Bathe Self (QC): 2 (Pt. requires max assist to shower self. Pt. unable to cleanse sharon area or LE. 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 Ischemic heart disease PVD severe Right BKA Smoker CARRIE COPD Urinary retention Clark in DM OOC Volume overload consulted Cardiology Plan: Pain meds IRF protocol PVR Dr Sal appreciated Insulin (1) Critical illness myopathy (2) Abdominal pain Status: Acute (3) Hypoxia Status: Acute (4) Anemia Status: Chronic (5) Diabetes mellitus Status: Chronic (6) COPD (chronic obstructive pulmonary disease) Status: Chronic (7) Chronic respiratory failure with hypoxia (8) Cardiac pacemaker Status: Chronic (9) Coronary artery disease Status: Chronic (10) DVT prophylaxis Status: Acute (11) S/P partial resection of colon Status: Acute (12) 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
[2020-04-12] MEDS: SENNA W/DOCUSATE (SENOKOT S) TABLET PO SCH ×2 (09:00→21:54)
[2020-04-12] MEDS: DOCUSATE SODIUM 100 MG (COLACE) CAP PO SCH ×2 (09:00→21:54)
[2020-04-12] MEDS: polyethylene glycoL POWDER 17 GM (MIRALAX) PACK PO SCH ×2 (09:00→21:54)
--- NOTE | 2020-04-12 09:57 | Progress Note - Cardiology ---
Cardiology SOAP Progress Note Subjective: Notes some improvement of swelling and shortness of breath No cp or palp or syncope No n/v/d Objective: I&O/Vital Signs 04/12/20 04/12/20 04/12/20 06:37 06:37 06:40 Temp 36.6 Pulse 76 Resp 20 B/P (MAP) 137/69 (91) Pulse Ox 98 96 95 O2 Delivery Nasal Cannula Nasal Cannula Nasal Cannula O2 Flow Rate 3.00 1.00 1.00 04/12/20 00:00 Intake Total 1520 ml Output Total 3575 ml Balance -2055 ml Weight (Pounds): 226 Weight (Ounces): 9.6 Weight (Calculated Kilograms): 102.714424 Constitutional: AAO x 3, well-developed, well-nourished Respiratory: No accessory muscle use, No respiratory distress; other (diminished lower lobes with prolonged exp phase) Cardiovascular: regular rate-rhythm; No JVD; S1 and S2, systolic murmur Gastrointestional: No tender; soft, round, other (abd incisions x [address], edges approx, no evidence of redness or drainage) Genital/Rectal: other (scrotal swelling) Extremities: other (pitting edema bilat LE; upper extremities; hands. R BKA) Neurologic/Psychiatric: grossly intact (moves extremities) Skin: No rash on exposed areas, No ulcerations on exposed areas Results/Procedures: Labs Laboratory Tests 04/11/20 10:43: Glucometer 137H 04/11/20 15:20: Glucometer 206H 04/11/20 20:22: Glucometer 209H 04/12/20 05:19: Glucometer 100 04/12/20 06:00: White Blood Count 6.3, Red Blood Count 2.97L, Hemoglobin 8.9L, Hematocrit 28L, Mean Corpuscular Volume 94, Mean Corpuscular Hemoglobin 30, Mean Corpuscular Hemoglobin Concent 32, Red Cell Distribution Width 14.6H, Platelet Count 272, Mean Platelet Volume 9.8, Sodium Level 141, Potassium Level 3.8, Chloride Level 103, Carbon Dioxide Level 29, Anion Gap 9, Blood Urea Nitrogen 12, Creatinine 1.40H, Estimat Glomerular Filtration Rate 48, BUN/Creatinine Ratio 9, Glucose Level 97, Calcium Level 7.9L, Corrected Calcium 9.1, Magnesium Level 1.6, Total Bilirubin 0.5, Aspartate Amino Transf (AST/SGOT) 14, Alanine Aminotransferase (ALT/SGPT) 12, Alkaline Phosphatase 87, Total Protein 5.0L, Albumin 2.5L, Trig lycerides Level 91, Cholesterol Level 148, LDL Cholesterol Direct 110, VLDL Cholesterol 18, HDL Cholesterol 26L, Thyroid Stimulating Hormone (TSH) 0.56 Laboratory Tests 04/12/20 06:00 A/P: Assessment: Ac systolic and diastolic CHF CAD - reported h/o CABG x 4 vessel - date and details unknown Echo of 04/11/20: LVEF 40-45%, grade 3 wolf dysfunction, biatrial enlargement, PASP 55-60 mmHg PPM - reports followed by Dr. Parada his primary assessment manager - details unknown H/O R BKA - per pt it was done at the time of CABG - details unknown Open colon resection on 04-03-[address] Henderson d/t ischemic colon DM 2 HTN HLD Macular degeneration H/O tobaccoism - states he has not smoked in years Prob COPD BPH with urinary retention and hematuria - managed per Dr. Sal Plan: * Continue diuretics * I discussed his echo results with him * Urinary retention/hematuria being managed by Dr. Sal * Continue ASA d/t reported h/o CAD/PAD * Adjust antihypertensives as indicated * Monitor lab closely * Replace electrolytes as indicated JOSIAH MORENO MD FACP [facility] April 12, 2020 09:57
[2020-04-12] MEDS: ASPIRIN E.C. 81 MG (ECOTRIN) TAB PO SCH (10:20)
[2020-04-12] MEDS: LOPERAMIDE 2 MG (IMODIUM) TABLET PO PRN (10:20)
[2020-04-12] MEDS: FUROSEMIDE 40 MG/4 ML INJ (LASIX) IVP SCH (10:21)
[2020-04-12] MEDS: PANTOPRAZOLE 40 MG (PROTONIX) TAB PO SCH ×2 (10:21→21:54)
[2020-04-12] MEDS: TAMSULOSIN 0.4 MG (FLOMAX) CAP PO SCH ×2 (10:21→21:53)
[2020-04-12] MEDS: GABAPENTIN 300 MG (NEURONTIN) CAP PO SCH ×2 (10:21→21:53)
[2020-04-12] MEDS: FINASTERIDE (PROSCAR) 5 MG TAB PO SCH (10:26)
--- NOTE | 2020-04-12 10:30 | NUR ---
BEDSIDE CYSTO DONE BY DR. MARINO AND NEW AZEVEDO CATHETER INSERTED AFTERWARDS. PATIENT TOLERATED WELL.
--- NOTE | 2020-04-12 11:47 | Occupational Ther Daily Note ---
OT Current Status-Daily Note Subjective Pt sitting in w/c, agrees to therapy with encouragement. ADL-Treatment Co-treat with PT secondary to impaired strength, mobility, activity tolerance, and need for two skilled clinicians. OT focusing on ADLs, UE management, and safety. PT focusing on transfers, mobility, and balance. Pt declined bathing this morning, but agrees to don shorts. Pt required assist to thread reyes and bilateral LE into shorts. Assist x2 required for standing and pant hike. Pt sat at sink to wash face and comb hair with set up. Pt performed w/c mobility backward to therapy gym with increased time and skilled cues for safety. Pt stood x2 trials with mod assistx2 in parallel bars. Pt then requests to use toilet. Pt returned to room via w/c. Transfer to toilet with max assist x2 using grab bar for balance. Pt requires assist to pivot to toilet. Pt had small amount of incontinence. Requires total assist to complete toileting hygiene and doff shorts. Transfer back to w/c with assist x2. Pt reports fatigue and requests to return to bed. Transfer to bed and sit to supine with assist x2. Pt positioned in bed with needs met after session. Therapy Code Descriptions/Definitions Functional [place] Measure: 0=Not Assessed/NA 4=Minimal Assistance 1=Total Assistance 5=Supervision or Setup 2=Maximal Assistance 6=Modified [place] 3=Moderate Assistance 7=Complete IndependenceSCALE: Activities may be completed with or without assistive devices. 7-Cyjpqmbtyt-agjozph completes the activity by him/herself with no assistance from a helper. 5-Set-up or Clean-up Assistance-helper sets up or cleans up; patient completes activity. [place] assists only prior to or following the activity. 4-Supervision or Touching Assistance-helper provides verbal cues and/or touching/steadying and/or contact guard assistance as patient completes activity. Assistance may be provided throughout the activity or intermittently. 3-Partial/Moderate Assistance-helper does LESS THAN HALF the effort. [place] lifts, holds or supports trunk or limbs, but provides less than half the effort. 2-Substantial/Maximal Assistance-helper does MORE THAN HALF the effort. [place] lifts or holds trunk or limbs and provides more than half the effort. 5-Svxxnvpna-dwfuxw does ALL the effort. Patient does none of the effort to complete the activity. Or, the assistance of 2 or more helpers is required for the patient to complete the activity. If activity was not attempted, code reason: 7-Patient Refused. 9-Not Applicable-not attempted and the patient did not perform the activity before the current illness, exacerbation or injury. 10-Not Attempted due to Environmental Limitations-(lack of equipment, weather restraints, etc.). 88-Not Attempted due to Medical Conditions or Safety Concerns. Lower Body Dressing (QC): 1 Toileting Hygiene (QC): 1 Toilet Transfer (QC): 1 OT Short Term Goals Short Term Goals Time Frame: April 23, 2020 Eatin Oral hygiene: 4 Toileting hygiene: 3 Shower/bathe self: 3 Upper body dressin Lower body dressin Putting on/taking off footwear: 3 OT Penitentiary Goals [facility]it[facility]iary Goals Time Frame: Apr 30, 2020 Eating (QC): 6 Oral Hygiene (QC): 5 Toileting Hygiene (QC): 4 Shower/Bathe Self (QC): 3 Upper Body Dressing (QC): 5 Lower Body Dressing (QC): 4 On/Off Footwear (QC): 5 Additional Goals: 1-Demonstrate ADL Tasks, 2-Verbalize Understanding, 3- ImproveStrength/[place] 1=Demonstrate adherence to instructed precautions during ADL tasks. 2=Patient will verbalize/demonstrate understanding of assistive devices/modifications for ADL. 3=Patient will improve strength/tolerance for activity to enable patient to perform ADL's. OT Education/Plan Discharge Recommendations Plan/Recommendations: Continue POC Treatment Plan/Plan of Care Patient would benefit from OT for education, treatment and training to promote independence in ADL's, mobility, safety and/or upper extremity function for ADL's. Plan of Care: ADL Retraining, Functional Mobility, Group Exercise/Act as Ind, UE Funct Exercise/Act Treatment Duration: Apr 30, 2020 Frequency: At least 5 of 7 days/Wk (IRF) Estimated Hrs Per Day: Other (Waiver(60 minutes per day until pt. can increase activity level.)) Agreement: Yes Rehab Potential: Fair Time/GCodes Start Time: 08:15 Stop Time: 09:20 Total Time Billed (hr/min): 65 Billed Treatment Time 1 visit, ADLx2(35minutes), FAx2(30minutes) DULCE MARIA HERNANDEZ OT April 12, 2020 11:47
[2020-04-12] MEDS ORDERED: CATHETER FLUSH 10 ML SYR IV PRN (12:30)
--- NOTE | 2020-04-12 12:31 | Progress Note-Post Operative ---
Post-Operative Progess Note Surgeon (s)/Motion Picture Projectionist (s) Surgeon DORA MARINO MD Motion Picture Projectionist: NONE Pre-Operative Diagnosis BPH AND RETENTION Post-Operative Diagnosis SAME Procedure & Operative Findings Date of Procedure 04/12/20 Procedure Performed/Findings CYSTOSCOPY Anesthesia Type LOCAL Estimated Blood Loss Estimated blood loss (mL): NONE Specimens/Packing Specimens Removed NONE Packing: NONE DORA MARINO MD April 12, 2020 12:31
--- NOTE | 2020-04-12 13:00 | NUR ---
CARDIAC RECORDS WERE FAXED FROM [facility] AND PLACED ON CHART.
--- NOTE | 2020-04-12 13:01 | Physical Therapy Daily Note ---
PT Daily Note-Current Subjective Pt states "I am just cranky". Pt agreeable to treatment states "I am not doing that" to many prompts during treatment. Pt allowed to decline as needed due to pt admittedly in a bad mood. Pt in w/c with prosthesis and shoes on. Mental Status Patient Orientation: Person, Place, Situation Transfers SCALE: Activities may be completed with or without assistive devices. 4-Jkcizasnai-hucusld completes the activity by him/herself with no assistance from a helper. 5-Set-up or Clean-up Assistance-helper sets up or cleans up; patient completes activity. [place] assists only prior to or following the activity. 4-Supervision or Touching Assistance-helper provides verbal cues and/or touching/steadying and/or contact guard assistance as patient completes acti vity. Assistance may be provided throughout the activity or intermittently. 3-Partial/Moderate Assistance-helper does LESS THAN HALF the effort. [place] lifts, holds or supports trunk or limbs, but provides less than half the effort. 2-Substantial/Maximal Assistance-helper does MORE THAN HALF the effort. [place] lifts or holds trunk or limbs and provides more than half the effort. 5-Dhoqevorw-vilhor does ALL the effort. Patient does none of the effort to complete the activity. Or, the assistance of 2 or more helpers is required for the patient to complete the activity. If activity was not attempted, code reason: 7-Patient Refused. 9-Not Applicable-not attempted and the patient did not perform the activity before the current illness, exacerbation or injury. 10-Not Attempted due to Environmental Limitations-(lack of equipment, weather restraints, etc.). 88-Not Attempted due to Medical Conditions or Safety Concerns. Pt transfers sit to flatwork finisher //bars required mod A of 2 persons. Sit to stand and transfer to toilet required max A of 2 persons. Weight Bearing Right Lower Extremity: Right Weight Bearing/Tolerated Left Lower Extremity: Left Weight Bearing/Tolerated hx of rbka Wheelchair Training Type of Wheelchair: Manual Pt requests to go in reverse when practicing w/c mobility in hallway. Pt propelled w/c in reverse x 125ft with manual assist as needed to avoid obstacles and during turns. Treatments Co-treat with OT, skills of 2 clinicians required for functional movement tasks due to weakness and poor endurance. PT working on transfers, LE strength and stamina, w/c mobility and ambulation. OT working on functional transfers, lower body dressing and toileting. Pt in BR for daily hygiene work with OT. Pt dependent for transfers: Pt required mod A for sit to flatwork finisher //bars. Pt able to flatwork finisher //bars with CGA x 40-60sec x 2 bouts. Pt incontinent of bowels requiring pt to return to room. Pt transferred to toilet with max A of 2 persons, pt using bars as he could. Pt max A to doff soiled pants. Pt max A for cleanup. Pt back to bed with mod-max A of 2. Max A for doffing shoes and prosthesis. Pt resting comfortably end of session. Assessment Current Status: Fair Progress Pt reluctant to participate due to therapy wears him out. Pt spent extra time toileting. Pt is dependent for transfers and bed mobility at this time. Pt would benefit from continued strengthening to restore functional mobility. PT Short Term Goals Short Term Goals Time Frame: April 16, 2020 Roll Left & Right: 6 Sit to lyin Lying to sitting on side of be: 4 Sit to stand: 3 Chair/dyz-jl-ixipm transfer: 3 Walk 10 feet: 3 PT Venue Coordinator Goals Prison Goals PT Prison Goals Time Frame: Apr 30, 2020 Roll Left & Right (QC): 6 Sit to Lying (QC): 6 Lying-Sitting on Side/Bed(QC): 6 Sit to Stand (QC): 4 (SBA) Chair/Xvu-xa-Summd Xfer(QC): 4 (SBA) Toilet Transfer (QC): 4 Car Transfer (QC): 3 Does the Patient Walk: No and Walking Goal IS indicated Walk 10 feet (QC): 4 Walk 50ft with 2 Turns (QC): 4 Walk 150 ft (QC): 88 Walking 10ft on Uneven Surface: 88 1 Step (curb) (QC): 88 4 Steps (QC): 88 12 Steps (QC): 88 Picking up an Object (QC): 88 Wheel 50 feet with 2 turns (QC: 6 Wheel 150 feet: 6 PT Plan Treatment/Plan Treatment Plan: Continue Plan of Care Treatment Plan: Bed Mobility, Education, Functional Activity [place], Functional Strength, Group Therapy, Gait, Safety, Therapeutic Exercise, Transfers Treatment Duration: Apr 30, 2020 Frequency: modified program 60 min/day, advance as patient is able Estimated Hrs Per Day: 1 hour per day Patient and/or Family Agrees t: Yes Time/GCodes Time In: 815 Time Out: 920 Total Billed Treatment Time: 65 Total Billed Treatment 1, w/c 15', FA 50' Co-treat with OT 65' BILL BARROW CPTA April 12, 2020 13:01
[2020-04-12] MEDS: CATHETER FLUSH 10 ML SYR IV SCH ×2 (13:10→21:53)
[2020-04-12] MEDS: DICLOFENAC 1% GEL 100 GM (VOLTAREN) TUBE TOP PRN (13:11)
[2020-04-12] MEDS: ZINC OXIDE 16% OINT (BUTT PASTE) 57 GM TUBE TOP PRN (17:35)
[2020-04-12 17:47] VITALS: BP 157/68
--- NOTE | 2020-04-12 18:00 | NUR ---
4000 ML URINE OUTPUT THIS SHIFT, BUT LEFT HAND AND LEFT LEG APPEAR MORE SWOLLEN. BOTH EXTREMITIES ELEVATED ON PILLOWS AND VERY EDEMATOUS SCROTUM ELEVATED UP WITH ROLLED TOWEL COVERED BY A PILLOW CASE. ONLY COMPLAINT OF PAIN IS FROM BREAKDOWN ON BOTTOM AND BEING TURNED FROM SIDE TO SIDE. 3 BM THIS SHIFT. WAS MEDICATED WITH IMODIUM THIS AM REQUESTED BY PATIENT.
[2020-04-12] MEDS: ENOXAPARIN 40 MG/0.4 ML (LOVENOX) SYR SC SCH (18:38)
[2020-04-12] MEDS: ATENOLOL 25 MG (TENORMIN) TAB PO SCH (21:54)
[2020-04-12] MEDS: FLUoxetine HCL 20 MG (PROzac) CAP PO SCH (21:54)
[2020-04-12] MEDS: MELATONIN 3 MG TABLET PO PRN (21:54)
[2020-04-13] MEDS: inSUlin ASPART (NovoLOG) 1 UNIT/0.01 ML (CHARGE PER UNIT) SC SCH ×4 (05:40→20:49)
[2020-04-13] MEDS: CATHETER FLUSH 10 ML SYR IV SCH ×3 (05:47→20:50)
[2020-04-13] MEDS: PIPERACILLIN/TAZO 4.5 GM/NS 100 ML IV SCH ×6 (05:47→20:50)
[2020-04-13] MEDS: KCL 20 MEQ TAB (K-DUR) PO SCH (06:15)
[2020-04-13] MEDS: RT-ALBUTEROL/IPRATROPIUM 3 ML (DUONEB) VIAL INH SCH ×4 (06:18→19:18)
[2020-04-13 06:59] VITALS: BP 147/64
[2020-04-13] MEDS: SENNA W/DOCUSATE (SENOKOT S) TABLET PO SCH ×2 (09:05→20:35)
[2020-04-13] MEDS: DOCUSATE SODIUM 100 MG (COLACE) CAP PO SCH ×2 (09:05→20:35)
[2020-04-13] MEDS: polyethylene glycoL POWDER 17 GM (MIRALAX) PACK PO SCH ×2 (09:05→20:35)
[2020-04-13] MEDS: FINASTERIDE (PROSCAR) 5 MG TAB PO SCH (09:27)
[2020-04-13] MEDS: TAMSULOSIN 0.4 MG (FLOMAX) CAP PO SCH ×2 (09:27→20:37)
[2020-04-13] MEDS: PANTOPRAZOLE 40 MG (PROTONIX) TAB PO SCH ×2 (09:27→20:37)
[2020-04-13] MEDS: ASPIRIN E.C. 81 MG (ECOTRIN) TAB PO SCH (09:27)
[2020-04-13] MEDS: FUROSEMIDE 40 MG/4 ML INJ (LASIX) IVP SCH (09:28)
[2020-04-13] MEDS: GABAPENTIN 300 MG (NEURONTIN) CAP PO SCH ×2 (09:28→20:37)
--- NOTE | 2020-04-13 10:47 | Progress Note - Urology ---
Progress Note-Urology Progress Notes/Assess & Plan Progress/Assessment & Plan PLAN TOV WEDNESDAY AND IF FAILS IT CONSIDER TURP WHEN PHYSICALLY, MEDICALLY, AND EMOTIONALLY FEASIBLE Final Diagnosis URINE RETENTION DORA MARINO MD April 13, 2020 10:47
[2020-04-13] MEDS: HYDROcodone/APAP 5 MG/325 MG (LORTAB) TAB PO PRN ×2 (11:45→20:36)
--- NOTE | 2020-04-13 11:46 | Physical Therapy Daily Note ---
PT Daily Note-Current Subjective Patient in bed pre tx, agrees to exercises in bed, states he just got back to bed and doesn't want to get out, needs to lay down due to sores on bottom. Patient complains of pain in left upper thigh, nurse notified and got him pain meds. Appearance Patient in bed post tx with nurse call, phone, tray, laying on right side with pillow support for backside pressure relief. Mental Status Patient Orientation: Person, Place, Situation Attachments: Oxygen, Clark Catheter Transfers SCALE: Activities may be completed with or without assistive devices. 0-Wioczfgkpo-xvleqni completes the activity by him/herself with no assistance from a helper. 5-Set-up or Clean-up Assistance-helper sets up or cleans up; patient completes activity. [place] assists only prior to or following the activity. 4-Supervision or Touching Assistance-helper provides verbal cues and/or touching/steadying and/or contact guard assistance as patient completes activity. Assistance may be provided throughout the activity or intermittently. 3-Partial/Moderate Assistance-helper does LESS THAN HALF the effort. [place] l ifts, holds or supports trunk or limbs, but provides less than half the effort. 2-Substantial/Maximal Assistance-helper does MORE THAN HALF the effort. [place] lifts or holds trunk or limbs and provides more than half the effort. 5-Bqajdyyfp-cnjwpr does ALL the effort. Patient does none of the effort to complete the activity. Or, the assistance of 2 or more helpers is required for t he patient to complete the activity. If activity was not attempted, code reason: 7-Patient Refused. 9-Not Applicable-not attempted and the patient did not perform the activity before the current illness, exacerbation or injury. 10-Not Attempted due to Environmental Limitations-(lack of equipment, weather restraints, etc.). 88-Not Attempted due to Medical Conditions or Safety Concerns. Roll Left & Right (QC): 6 Weight Bearing Right Lower Extremity: Right Weight Bearing/Tolerated Left Lower Extremity: Left Weight Bearing/Tolerated hx of rbka Exercises Supine Ex: Ankle pumps (LLE), Quad Set, Glut sets, Heel Slides (LLE), Short Arc Quads, Straight leg raise, Hip abd/add Supine Reps: 15 Treatments functional strengthening Assessment Current Status: Poor Progress Patient had a lot of difficulty and pain with left leg during exercises. PT Short Term Goals Short Term Goals Time Frame: April 16, 2020 Roll Left & Right: 6 Sit to lyin Lying to sitting on side of be: 4 Sit to stand: 3 Chair/prm-zd-vlwux transfer: 3 Walk 10 feet: 3 PT Chcf Goals Chcf Goals PT Chcf Goals Time Frame: Apr 30, 2020 Roll Left & Right (QC): 6 Sit to Lying (QC): 6 Lying-Sitting on Side/Bed(QC): 6 Sit to Stand (QC): 4 (SBA) Chair/Uue-rr-Oivyu Xfer(QC): 4 (SBA) Toilet Transfer (QC): 4 Car Transfer (QC): 3 Does the Patient Walk: No and Walking Goal IS indicated Walk 10 feet (QC): 4 Walk 50ft with 2 Turns (QC): 4 Walk 150 ft (QC): 88 Walking 10ft on Uneven Surface: 88 1 Step (curb) (QC): 88 4 Steps (QC): 88 12 Steps (QC): 88 Picking up an Object (QC): 88 Wheel 50 feet with 2 turns (QC: 6 Wheel 150 feet: 6 PT Plan Problem List Problem List: Activity Tolerance, Functional Strength, Safety, Balance, Gait, Transfer, Bed Mobility, ROM Treatment/Plan Treatment Plan: Continue Plan of Care Treatment Plan: Bed Mobility, Education, Functional Activity [place], Functional Strength, Group Therapy, Gait, Safety, Therapeutic Exercise, Transfers Treatment Duration: Apr 30, 2020 Frequency: modified program 60 min/day, advance as patient is able Estimated Hrs Per Day: 1 hour per day Patient and/or Family Agrees t: Yes Safety Risks/Education Patient Education: Correct Positioning, Safety Issues Teaching Recipient: Patient Teaching Methods: Demonstration, Discussion Response to Teaching: Reinforcement Needed Time/GCodes Time In: 1131 Time Out: 1142 Total Billed Treatment Time: 11 Total Billed Treatment 1 visit EX Snow' SUZANNENICOEL BADILLO PT April 13, 2020 11:46
--- NOTE | 2020-04-13 13:12 | PM&R Progress Note ---
Subjective HPI/CC On Admission Date Seen by Provider: April 13, 2020 Time Seen by Provider: 13:15 Subjective/Events-last exam Edema improved with Lasix by Cardiology. Fantastic brigida. Key records came in for review by Dr Maru Clark back in failed void residual trial and cysto was performed yesterday revealing BPH Buttock ulcer, wound care consulted Pt feels less dyspnea Pacemaker maintained by Dr. Parada and Cardiology managing now Edema improved Buttpaste on now Checked meds and labs Conferred with RN Reviewed therapy notes Review of Systems General: Fatigue Cardiovascular: Edema Objective Exam Vital Signs Vital Signs Date Time Temp Pulse Resp B/P (MAP) Pulse Ox O2 Delivery O2 Flow Rate FiO2 04/13/20 18:03 36.0 73 18 119/56 (77) 96 Nasal Cannula 2.00 Capillary Refill : Less Than 3 Seconds General Appearance: No Apparent Distress, WD/WN, Chronically ill, Obese HEENT: PERRL/EOMI, Normal ENT Inspection, Pharynx Normal Neck: Full Range of Motion, Normal Inspection, Non Tender, Supple, Carotid Bruit Respiratory: Chest Non Tender, Lungs Clear, No Accessory Muscle Use, No Respiratory Distress, Decreased Breath Sounds Cardiovascular: Regular Rate, Rhythm, No Gallop, No JVD, No Murmur, Normal Peripheral Pulses Gastrointestinal: Normal Bowel Sounds, No Organomegaly, No Pulsatile Mass, Soft, Tenderness Back: Normal Inspection, No CVA Tenderness, No Vertebral Tenderness Extremity: Normal Capillary Refill, Normal Inspection, Normal Range of Motion, Non Tender, No Calf Tenderness, Pedal Edema Neurologic/Psychiatric: Alert, Oriented x3, No Motor/Sensory Deficits, Normal Mood/Affect, draw operator II-XII Norm as Tested, Motor Weakness, Other (right AKA) Skin: Normal Color, Warm/Dry Lymphatic: No Adenopathy Results/Procedures Lab Patient resulted labs reviewed. FIM Transfers Therapy Code Descriptions/Definitions Functional [place] Measure: 0=Not Assessed/NA 4=Minimal Assistance 1=Total Assistance 5=Supervision or Setup 2=Maximal Assistance 6=Modified [place] 3=Moderate Assistance 7=Complete IndependenceSCALE: Activities may be completed with or without assistive devices. 6-Uxadauuwrw-ifguupm completes the activity by him/herself with no assistance from a helper. 5-Set-up or Clean-up Assistance-helper sets up or cleans up; patient completes activity. [place] assists only prior to or following the activity. 4-Supervision or Touching Assistance-helper provides verbal cues and/or touching/steadying and/or contact guard assistance as patient completes activity. Assistance may be provided throughout the activity or intermittently. 3-Partial/Moderate Assistance-helper does LESS THAN HALF the effort. [place] lifts, holds or supports trunk or limbs, but provides less than half the effort. 2-Substantial/Maximal Assistance-helper does MORE THAN HALF the effort. [place] lifts or holds trunk or limbs and provides more than half the effort. 4-Ddlihbaru-wciebw does ALL the effort. Patient does none of the effort to complete the activity. Or, the assistance of 2 or more helpers is required for the patient to complete the activity. If activity was not attempted, code reason: 7-Patient Refused. 9-Not Applicable-not attempted and the patient did not perform the activity before the current illness, exacerbation or injury. 10-Not Attempted due to Environmental Limitations-(lack of equipment, weather restraints, etc.). 88-Not Attempted due to Medical Conditions or Safety Concerns. Roll Left to Right (QC): 6 Sit to Lying (QC): 3 Sit to Stand (QC): 2 Chair/Vfp-xl-Ktojb Xfer(QC): 3 Car Transfer (QC): 1 Gait Training Does the Patient Walk?: No and Walking Goal IS indicated Walk 10 feet (QC): 88 Walk 50 ft with 2 Turns(QC): 88 Walk 150 ft (QC): 88 Walking 10ft/uneven surface-QC: 88 Wheelchair Training Does the Pt Use a Wheelchair?: Yes Distance: 150'x2 Wheel 50 ft with 2 turns (QC): 3 Wheel 150 ft (QC): 3 Type of Wheelchair: Manual Stair Training 1 Step (curb) (QC): 88 4 Steps (QC): 88 12 Steps (QC): 88 Balance Picking up an Object (QC): 88 ADL-Treatment Eating (QC): 10 Oral Hygiene (QC): 7 Shower/Bathe Self (QC): 2 (Pt. requires max assist to shower self. Pt. unable to cleanse [place] area or LE. 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 Ischemic heart disease PVD severe Right BKA Smoker CARRIE COPD Urinary retention Clark in s/p cystoscopy Wednesday Dr Sal DM OOC Volume overload consulted Cardiology with improved status today Plan: Pain meds IRF protocol PVR Dr Sal appreciated Insulin Diuresis (1) Critical illness myopathy (2) Abdominal pain Status: Acute (3) Hypoxia Status: Acute (4) Anemia Status: Chronic (5) Diabetes mellitus Status: Chronic (6) COPD (chronic obstructive pulmonary disease) Status: Chronic (7) Chronic respiratory failure with hypoxia (8) Cardiac pacemaker Status: Chronic (9) Coronary artery disease Status: Chronic (10) DVT prophylaxis Status: Acute (11) S/P partial resection of colon Status: Acute (12) 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
[2020-04-13 18:03] VITALS: BP 119/56
[2020-04-13] MEDS: ENOXAPARIN 40 MG/0.4 ML (LOVENOX) SYR SC SCH (18:09)
[2020-04-13] MEDS: FLUoxetine HCL 20 MG (PROzac) CAP PO SCH (20:36)
[2020-04-13] MEDS: ATENOLOL 25 MG (TENORMIN) TAB PO SCH (20:36)
[2020-04-14 05:04] VITALS: BP 146/66
[2020-04-14] MEDS: CATHETER FLUSH 10 ML SYR IV SCH ×3 (05:42→20:40)
[2020-04-14] MEDS: KCL 20 MEQ TAB (K-DUR) PO SCH (05:42)
[2020-04-14] MEDS: PIPERACILLIN/TAZO 4.5 GM/NS 100 ML IV SCH ×2 (05:42)
[2020-04-14] MEDS: inSUlin ASPART (NovoLOG) 1 UNIT/0.01 ML (CHARGE PER UNIT) SC SCH ×4 (05:49→20:40)
[2020-04-14] MEDS: RT-ALBUTEROL/IPRATROPIUM 3 ML (DUONEB) VIAL INH SCH ×4 (06:15→19:11)
[2020-04-14] MEDS: HYDROcodone/APAP 5 MG/325 MG (LORTAB) TAB PO PRN ×2 (07:28→17:58)
[2020-04-14] MEDS: polyethylene glycoL POWDER 17 GM (MIRALAX) PACK PO SCH ×2 (08:25→20:41)
[2020-04-14] MEDS: DOCUSATE SODIUM 100 MG (COLACE) CAP PO SCH ×2 (09:17→20:41)
[2020-04-14] MEDS: FINASTERIDE (PROSCAR) 5 MG TAB PO SCH (09:17)
[2020-04-14] MEDS: FUROSEMIDE 40 MG/4 ML INJ (LASIX) IVP SCH (09:17)
[2020-04-14] MEDS: SENNA W/DOCUSATE (SENOKOT S) TABLET PO SCH ×2 (09:17→20:41)
[2020-04-14] MEDS: GABAPENTIN 300 MG (NEURONTIN) CAP PO SCH ×2 (09:17→20:41)
[2020-04-14] MEDS: TAMSULOSIN 0.4 MG (FLOMAX) CAP PO SCH ×2 (09:17→20:41)
[2020-04-14] MEDS: PANTOPRAZOLE 40 MG (PROTONIX) TAB PO SCH ×2 (09:17→20:41)
[2020-04-14] MEDS: ASPIRIN E.C. 81 MG (ECOTRIN) TAB PO SCH (09:17)
--- NOTE | 2020-04-14 11:25 | PM&R Progress Note ---
Subjective HPI/CC On Admission Date Seen by Provider: April 14, 2020 Time Seen by Provider: 11:30 Subjective/Events-last exam Edema improved with Lasix by Cardiology. Clark back in failed void residual trial and cysto was performed Wednesday revealing BPH Buttock ulcer, wound care consulted Pt feels less dyspnea since output from diuresis Pacemaker maintained by Dr. Parada and Cardiology managing now Edema improved Buttpaste on now Checked meds and labs Conferred with RN Reviewed therapy notes Review of Systems General: Fatigue Cardiovascular: Edema Objective Exam Vital Signs Vital Signs Date Time Temp Pulse Resp B/P (MAP) Pulse Ox O2 Delivery O2 Flow Rate FiO2 04/14/20 10:17 93 Nasal Cannula 2.00 04/14/20 05:04 36.6 70 18 146/66 (92) Capillary Refill : Less Than 3 Seconds General Appearance: No Apparent Distress, WD/WN, Chronically ill, Obese HEENT: PERRL/EOMI, Normal ENT Inspection, Pharynx Normal Neck: Full Range of Motion, Normal Inspection, Non Tender, Supple, Carotid Bruit Respiratory: Chest Non Tender, Lungs Clear, No Accessory Muscle Use, No Respiratory Distress, Decreased Breath Sounds Cardiovascular: Regular Rate, Rhythm, No Gallop, No JVD, No Murmur, Normal Peripheral Pulses Gastrointestinal: Normal Bowel Sounds, No Organomegaly, No Pulsatile Mass, Soft, Tenderness Back: Normal Inspection, No CVA Tenderness, No Vertebral Tenderness Extremity: Normal Capillary Refill, Normal Inspection, Normal Range of Motion, Non Tender, No Calf Tenderness, Pedal Edema Neurologic/Psychiatric: Alert, Oriented x3, No Motor/Sensory Deficits, Normal Mood/Affect, chute boss II-XII Norm as Tested, Motor Weakness, Other (right AKA) Skin: Normal Color, Warm/Dry Lymphatic: No Adenopathy Results/Procedures Lab Patient resulted labs reviewed. FIM Transfers Therapy Code Descriptions/Definitions Functional [place] Measure: 0=Not Assessed/NA 4=Minimal Assistance 1=Total Assistance 5=Supervision or Setup 2=Maximal Assistance 6=Modified [place] 3=Moderate Assistance 7=Complete IndependenceSCALE: Activities may be completed with or without assistive devices. 6-Cdphjgpfti-mrhetfo completes the activity by him/herself with no assistance from a helper. 5-Set-up or Clean-up Assistance-helper sets up or cleans up; patient completes activity. [place] assists only prior to or following the activity. 4-Supervision or Touching Assistance-helper provides verbal cues and/or touching/steadying and/or contact guard assistance as patient completes activity. Assistance may be provided throughout the activity or intermittently. 3-Partial/Moderate Assistance-helper does LESS THAN HALF the effort. [place] lifts, holds or supports trunk or limbs, but provides less than half the effort. 2-Substantial/Maximal Assistance-helper does MORE THAN HALF the effort. [place] lifts or holds trunk or limbs and provides more than half the effort. 6-Blzbbbars-ufpmky does ALL the effort. Patient does none of the effort to complete the activity. Or, the assistance of 2 or more helpers is required for the patient to complete the activity. If activity was not attempted, code reason: 7-Patient Refused. 9-Not Applicable-not attempted and the patient did not perform the activity before the current illness, exacerbation or injury. 10-Not Attempted due to Environmental Limitations-(lack of equipment, weather restraints, etc.). 88-Not Attempted due to Medical Conditions or Safety Concerns. Roll Left to Right (QC): 6 Sit to Lying (QC): 3 Sit to Stand (QC): 2 Chair/Pbw-jh-Nlrln Xfer(QC): 3 Car Transfer (QC): 1 Gait Training Does the Patient Walk?: No and Walking Goal IS indicated Walk 10 feet (QC): 88 Walk 50 ft with 2 Turns(QC): 88 Walk 150 ft (QC): 88 Walking 10ft/uneven surface-QC: 88 Wheelchair Training Does the Pt Use a Wheelchair?: Yes Distance: 150'x2 Wheel 50 ft with 2 turns (QC): 3 Wheel 150 ft (QC): 3 Type of Wheelchair: Manual Stair Training 1 Step (curb) (QC): 88 4 Steps (QC): 88 12 Steps (QC): 88 Balance Picking up an Object (QC): 88 ADL-Treatment Eating (QC): 10 Oral Hygiene (QC): 7 Shower/Bathe Self (QC): 2 (Pt. requires max assist to shower self. Pt. unable to cleanse sharon area or LE. 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 Ischemic heart disease PVD severe Right BKA Smoker CARRIE COPD Urinary retention Clark in s/p cystoscopy Wednesday Dr Sal DM OOC Volume overload consulted Cardiology with improved status today Plan: Pain meds IRF protocol PVR Dr Sal appreciated Insulin Diuresis (1) Critical illness myopathy (2) Abdominal pain Status: Acute (3) Hypoxia Status: Acute (4) Anemia Status: Chronic (5) Diabetes mellitus Status: Chronic (6) COPD (chronic obstructive pulmonary disease) Status: Chronic (7) Chronic respiratory failure with hypoxia (8) Cardiac pacemaker Status: Chronic (9) Coronary artery disease Status: Chronic (10) DVT prophylaxis Status: Acute (11) S/P partial resection of colon Status: Acute (12) 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
[2020-04-14] MEDS: ENOXAPARIN 40 MG/0.4 ML (LOVENOX) SYR SC SCH (16:57)
[2020-04-14 17:13] VITALS: BP 122/77
[2020-04-14] MEDS: ALPRAZolam 0.25 MG (XANAX) TAB PO PRN (17:57)
[2020-04-14] MEDS: FLUoxetine HCL 20 MG (PROzac) CAP PO SCH (20:41)
[2020-04-14] MEDS: MELATONIN 3 MG TABLET PO PRN (20:41)
[2020-04-14] MEDS: ATENOLOL 25 MG (TENORMIN) TAB PO SCH (20:42)
[2020-04-15] MEDS: KCL 20 MEQ TAB (K-DUR) PO SCH (05:25)
[2020-04-15] MEDS: CATHETER FLUSH 10 ML SYR IV SCH ×3 (05:26→22:32)
[2020-04-15 05:32] LABS: BASOPHILS # (AUTO) 0.1 10^3/uL (0.0-0.1); BASOPHILS % (AUTO) 1 % (0-10); EOSINOPHILS # (AUTO) 0.4 10^3/uL (0.0-0.3); EOSINOPHILS % (AUTO) 7 % (0-10); HEMATOCRIT 30 % (40-54); HEMOGLOBIN 9.5 G/DL (13.3-17.7); LYMPHOCYTES # (AUTO) 1.3 X 10^3 (1.0-4.0); LYMPHOCYTES % (AUTO) 28 % (12-44); MEAN CORPUSCULAR HEMOGLOBIN 29 PG (25-34); MEAN CORPUSCULAR HGB CONC 32 G/DL (32-36); MEAN CORPUSCULAR VOLUME 93 FL (80-99); MEAN PLATELET VOLUME 9.4 FL (7.4-10.4); MONOCYTES # (AUTO) 0.4 X 10^3 (0.0-1.0); MONOCYTES % (AUTO) 9 % (0-12); NEUTROPHILS # (AUTO) 2.6 X 10^3 (1.8-7.8); NEUTROPHILS % (AUTO) 54 % (42-75); PLATELET COUNT 335 10^3/uL (130-400); RED CELL DISTRIBUTION WIDTH 14.2 % (10.0-14.5); WHITE BLOOD COUNT 4.7 10^3/uL (4.3-11.0)
[2020-04-15 05:45] VITALS: BP 159/71
[2020-04-15 05:49] LABS: POTASSIUM 4.2 MMOL/L (3.6-5.0)
[2020-04-15 05:50] LABS: CALCIUM 8.8 MG/DL (8.5-10.1)
[2020-04-15 05:51] LABS: TOTAL PROTEIN 6.2 GM/DL (6.4-8.2)
[2020-04-15 05:53] LABS: BILIRUBIN,TOTAL 0.5 MG/DL (0.1-1.0)
[2020-04-15] MEDS: inSUlin ASPART (NovoLOG) 1 UNIT/0.01 ML (CHARGE PER UNIT) SC SCH ×4 (05:54→21:00)
[2020-04-15 05:55] LABS: CREATININE SERUM 1.69 MG/DL (0.60-1.30)
[2020-04-15] MEDS: RT-ALBUTEROL/IPRATROPIUM 3 ML (DUONEB) VIAL INH SCH ×4 (06:23→18:19)
[2020-04-15] MEDS: HYDROcodone/APAP 5 MG/325 MG (LORTAB) TAB PO PRN ×3 (08:11→21:00)
[2020-04-15] MEDS: TAMSULOSIN 0.4 MG (FLOMAX) CAP PO SCH ×2 (08:11→21:00)
[2020-04-15] MEDS: FINASTERIDE (PROSCAR) 5 MG TAB PO SCH (08:11)
[2020-04-15] MEDS: PANTOPRAZOLE 40 MG (PROTONIX) TAB PO SCH ×2 (08:11→20:59)
[2020-04-15] MEDS: LOPERAMIDE 2 MG (IMODIUM) TABLET PO PRN (08:11)
[2020-04-15] MEDS: ASPIRIN E.C. 81 MG (ECOTRIN) TAB PO SCH (08:11)
[2020-04-15] MEDS: GABAPENTIN 300 MG (NEURONTIN) CAP PO SCH ×2 (08:11→21:00)
[2020-04-15] MEDS: FUROSEMIDE 40 MG/4 ML INJ (LASIX) IVP SCH (08:12)
[2020-04-15] MEDS: polyethylene glycoL POWDER 17 GM (MIRALAX) PACK PO SCH ×2 (09:00→21:21)
[2020-04-15] MEDS: SENNA W/DOCUSATE (SENOKOT S) TABLET PO SCH ×2 (09:00→21:21)
[2020-04-15] MEDS: DOCUSATE SODIUM 100 MG (COLACE) CAP PO SCH ×2 (09:00→21:21)
--- NOTE | 2020-04-15 09:29 | PM&R Progress Note ---
Subjective HPI/CC On Admission Date Seen by Provider: April 15, 2020 Time Seen by Provider: 09:30 Subjective/Events-last exam Pt doing much better Creatinine 1.69 since diuresis Hgb 9.5 Having some loose stools but otherwise doing well Overall fairly optimistic positive outlook Edema improved Buttpaste on now Checked meds and labs Conferred with RN Reviewed therapy notes Review of Systems General: Fatigue Pulmonary: Dyspnea Objective Exam Vital Signs Vital Signs Date Time Temp Pulse Resp B/P (MAP) Pulse Ox O2 Delivery O2 Flow Rate FiO2 04/15/20 21:00 92 Room Air 04/15/20 17:37 36.5 72 18 105/63 (77) 04/15/20 09:00 2.00 Capillary Refill : Less Than 3 Seconds General Appearance: No Apparent Distress, WD/WN, Chronically ill, Obese HEENT: PERRL/EOMI, Normal ENT Inspection, Pharynx Normal Neck: Full Range of Motion, Normal Inspection, Non Tender, Supple, Carotid Bruit Respiratory: Chest Non Tender, Lungs Clear, No Accessory Muscle Use, No Respiratory Distress, Decreased Breath Sounds Cardiovascular: Regular Rate, Rhythm, No Gallop, No JVD, No Murmur, Normal Peripheral Pulses Gastrointestinal: Normal Bowel Sounds, No Organomegaly, No Pulsatile Mass, Soft, Tenderness Back: Normal Inspection, No CVA Tenderness, No Vertebral Tenderness Extremity: Normal Capillary Refill, Normal Inspection, Normal Range of Motion, Non Tender, No Calf Tenderness, Pedal Edema Neurologic/Psychiatric: Alert, Oriented x3, No Motor/Sensory Deficits, Normal Mood/Affect, hide splitter II-XII Norm as Tested, Motor Weakness, Other (right AKA) Skin: Normal Color, Warm/Dry Lymphatic: No Adenopathy Results/Procedures Lab Patient resulted labs reviewed. FIM Transfers Therapy Code Descriptions/Definitions Functional [place] Measure: 0=Not Assessed/NA 4=Minimal Assistance 1=Total Assistance 5=Supervision or Setup 2=Maximal Assistance 6=Modified [place] 3=Moderate Assistance 7=Complete IndependenceSCALE: Activities may be completed with or without assistive devices. 9-Xuthlkrrmv-ytmzsgt completes the activity by him/herself with no assistance from a helper. 5-Set-up or Clean-up Assistance-helper sets up or cleans up; patient completes activity. [place] assists only prior to or following the activity. 4-Supervision or Touching Assistance-helper provides verbal cues and/or touching/steadying and/or contact guard assistance as patient completes activity. Assistance may be provided throughout the activity or intermittently. 3-Partial/Moderate Assistance-helper does LESS THAN HALF the effort. [place] lifts, holds or supports trunk or limbs, but provides less than half the effort. 2-Substantial/Maximal Assistance-helper does MORE THAN HALF the effort. [place] lifts or holds trunk or limbs and provides more than half the effort. 0-Prraadeys-xrmxkh does ALL the effort. Patient does none of the effort to complete the activity. Or, the assistance of 2 or more helpers is required for the patient to complete the activity. If activity was not attempted, code reason: 7-Patient Refused. 9-Not Applicable-not attempted and the patient did not perform the activity before the current illness, exacerbation or injury. 10-Not Attempted due to Environmental Limitations-(lack of equipment, weather restraints, etc.). 88-Not Attempted due to Medical Conditions or Safety Concerns. Roll Left to Right (QC): 6 Sit to Lying (QC): 3 Sit to Stand (QC): 2 Chair/Stt-vt-Bnvcf Xfer(QC): 3 Car Transfer (QC): 1 Gait Training Does the Patient Walk?: No and Walking Goal IS indicated Walk 10 feet (QC): 88 Walk 50 ft with 2 Turns(QC): 88 Walk 150 ft (QC): 88 Walking 10ft/uneven surface-QC: 88 Wheelchair Training Does the Pt Use a Wheelchair?: Yes Distance: 150'x2 Wheel 50 ft with 2 turns (QC): 3 Wheel 150 ft (QC): 3 Type of Wheelchair: Manual Stair Training 1 Step (curb) (QC): 88 4 Steps (QC): 88 12 Steps (QC): 88 Balance Picking up an Object (QC): 88 ADL-Treatment Eating (QC): 10 Oral Hygiene (QC): 7 Shower/Bathe Self (QC): 2 (Pt. requires max assist to shower self. Pt. unable to cleanse sharon area or LE. 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 Ischemic heart disease PVD severe Right BKA Smoker CARRIE COPD Urinary retention Clark in s/p cystoscopy Wednesday Dr Sal DM OOC Volume overload consulted Cardiology with improved status today Plan: Pain meds IRF protocol PVR Dr Sal appreciated Insulin Diuresis (1) Critical illness myopathy (2) Abdominal pain Status: Acute (3) Hypoxia Status: Acute (4) Anemia Status: Chronic (5) Diabetes mellitus Status: Chronic (6) COPD (chronic obstructive pulmonary disease) Status: Chronic (7) Chronic respiratory failure with hypoxia (8) Cardiac pacemaker Status: Chronic (9) Coronary artery disease Status: Chronic (10) DVT prophylaxis Status: Acute (11) S/P partial resection of colon Status: Acute (12) 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
--- NOTE | 2020-04-15 09:39 | Progress Note - Cardiology ---
Cardiology SOAP Progress Note Subjective: Shortness of breath improved Swelling resolved No cp or palp or syncope No focal weakness Gen weakness present No n/v/d Objective: I&O/Vital Signs 04/15/20 04/15/20 05:45 06:24 Temp 37.0 Pulse 70 Resp 20 B/P (MAP) 159/71 (100) Pulse Ox 97 93 O2 Delivery Nasal Cannula Nasal Cannula O2 Flow Rate 2.00 2.00 04/15/20 00:00 Intake Total 1490 ml Output Total 5450 ml Balance -3960 ml Weight (Pounds): 226 Weight (Ounces): 9.6 Weight (Calculated Kilograms): 102.827699 Constitutional: AAO x 3, well-developed, well-nourished Respiratory: No accessory muscle use, No respiratory distress; other (diminished lower lobes with prolonged exp phase) Cardiovascular: regular rate-rhythm; No JVD; S1 and S2, systolic murmur Gastrointestional: No tender; soft, round, other (abd incisions x [address], edges approx, no evidence of redness or drainage) Genital/Rectal: other (scrotal swelling) Extremities: other (pitting edema bilat LE; upper extremities; hands. R BKA) Neurologic/Psychiatric: grossly intact (moves extremities) Skin: No rash on exposed areas, No ulcerations on exposed areas Results/Procedures: Labs Laboratory Tests 04/14/20 10:46: Glucometer 242H 04/14/20 15:29: Glucometer 236H 04/14/20 20:15: Glucometer 221H 04/15/20 05:20: White Blood Count 4.7, Red Blood Count 3.23L, Hemoglobin 9.5L, Hematocrit 30L, Mean Corpuscular Volume 93, Mean Corpuscular Hemoglobin 29, Mean Corpuscular Hemoglobin Concent 32, Red Cell Distribution Width 14.2, Platelet Count 335, Mean Platelet Volume 9.4, Neutrophils (%) (Auto) 54, Lymphocytes (%) (Auto) 28, Monocytes (%) (Auto) 9, Eosinophils (%) (Auto) 7, Basophils (%) (Auto) 1, Neutrophils # (Auto) 2.6, Lymphocytes # (Auto) 1.3, Monocytes # (Auto) 0.4, Eosinophils # (Auto) 0.4H, Basophils # (Auto) 0.1, Sodium Level 139, Potassium Level 4.2, Chloride Level 96L, Carbon Dioxide Level 34H, Anion Gap 9, Blood Urea Nitrogen 16, Creatinine 1.69H, Estimat Glomerular Filtration Rate 39, BUN/Creatinine Ratio 9, Glucose Level 126H, Calcium Level 8.8, Corrected Calcium 9.6, Total Bilirubin 0.5, Aspartate Amino Transf (AST/SGOT) 23, Alanine Aminotransferase (ALT/SGPT) 17, Alkaline Phosphatase 98, Total Protein 6.2L, Albumin 3.0L Laboratory Tests 04/15/20 05:20 A/P: Assessment: Ac systolic and diastolic CHF, clinically improved Worsening renal insufficiency, likely due to diuretics (intravascular volume depletion) CAD - reported h/o CABG x 4 vessel - date and details unknown Echo of 04/11/20: LVEF 40-45%, grade 3 wolf dysfunction, biatrial enlargement, PASP 55-60 mmHg PPM - reports followed by Dr. Parada his primary manager fraud - details unknown H/O R BKA - per pt it was done at the time of CABG - details unknown Open colon resection on 04-03-[address] Henderson d/t ischemic colon DM 2 HTN HLD Macular degeneration H/O tobaccoism - states he has not smoked in years Prob COPD BPH with urinary retention and hematuria - managed per Dr. Sal Plan: * Reduce diuretics * Urinary retention/hematuria being managed by Dr. Sal * Continue ASA d/t reported h/o CAD/PAD * Monitor lab closely * I discussed his CV issues and our treatment plan with him JOSIAH MORENO MD FACP FAC CCDS April 15, 2020 09:38
--- NOTE | 2020-04-15 10:16 | Progress Note - Urology ---
Progress Note-Urology Progress Notes/Assess & Plan Progress/Assessment & Plan TOV TODAY Final Diagnosis URINE RETENTION DORA MARINO MD April 15, 2020 10:16
--- NOTE | 2020-04-15 12:30 | NUR ---
AZEVEDO CATHETER REMOVED PER ORDER. 10CC CLEAR FLUID REMOVED FROM BALLOON, CATHETER REMOVED. PT TOLERATES WELL. WILL MONITOR URINE OUTPUT NEED WITH BLADDER SCAN.
--- NOTE | 2020-04-15 12:43 | Physical Therapy Daily Note ---
PT Daily Note-Current Subjective Pt. up in w/c, states "I've been waiting on you to get here. I've been going to the bathroom myself, everything...I'm ready to go home." Pt. quickly gets upset with therapist when TV is muted and when attempting to put the gait belt on. Transfers SCALE: Activities may be completed with or without assistive devices. 5-Gyexdqiuwm-zpxduis completes the activity by him/herself with no assistance from a helper. 5-Set-up or Clean-up Assistance-helper sets up or cleans up; patient completes activity. [place] assists only prior to or following the activity. 4-Supervision or Touching Assistance-helper provides verbal cues and/or touching/steadying and/or contact guard assistance as patient completes activity. Assistance may be provided throughout the activity or intermittently. 3-Partial/Moderate Assistance-helper does LESS THAN HALF the effort. [place] lifts, holds or supports trunk or limbs, but provides less than half the effort. 2-Substantial/Maximal Assistance-helper does MORE THAN HALF the effort. [place] lifts or holds trunk or limbs and provides more than half the effort. 9-Nrqwpxtew-xsanut does ALL the effort. Patient does none of the effort to compl ete the activity. Or, the assistance of 2 or more helpers is required for the patient to complete the activity. If activity was not attempted, code reason: 7-Patient Refused. 9-Not Applicable-not attempted and the patient did not perform the activity before the current illness, exacerbation or injury. 10-Not Attempted due to Environmental Limitations-(lack of equipment, weather restraints, etc.). 88-Not Attempted due to Medical Conditions or Safety Concerns. Sit to Stand (QC): 3 Weight Bearing Right Lower Extremity: Right Weight Bearing/Tolerated Left Lower Extremity: Left Weight Bearing/Tolerated hx of rbka Gait Training Does the Patient Walk?: Yes Distance: 5 x 15' Walk 10 feet (QC): 4 Gait Persons Needed: 2 Gait Assistive Device: Parallel Bars began ambulation in // bars x 4 trips, progressed to FWW x 15'. Pt. very impulsive with movements, quickly gets upset with cuing for safety, w/c follow needed when ambulating with FWW. Wheelchair Training Does the Pt Use a Wheelchair?: Yes Wheel 50 ft with 2 turns (QC): 4 Type of Wheelchair: Manual pt. is adamant to w/c in reverse, cues needed to avoid objects Exercises Seated Therapy Exercises: Long arc quads, Hip flexion Seated Reps: 20 Treatments Co-tx with OT for extremity strengthening, transfers and gait safety. Pt. was able to ambulate in // bars and with FWW today, but has impulsive behaviors and fatigues very quickly with activity. W/C follow needed during gait with FWW; L leg quickly began to give way with fatigue. Pt. is resistant to therapy directions for safety and additional mobility activities, often saying "I know my body better than you." Assessment Current Status: Good Progress, Fair Progress Pt. had a significant improvement with his mobility today but remains resistant to therapy treatments and safety cues. Pt. returned to room, up in w/c with call light and all needs met. O2 sats at 96% on RA post session. PT Short Term Goals Short Term Goals Time Frame: April 16, 2020 Roll Left & Right: 6 Sit to lyin Lying to sitting on side of be: 4 Sit to stand: 3 Chair/zst-we-eezjv transfer: 3 Walk 10 feet: 3 PT [facility] Goals [employer] Sales Representative Goals PT [employer] Representative Goals Time Frame: Apr 30, 2020 Roll Left & Right (QC): 6 Sit to Lying (QC): 6 Lying-Sitting on Side/Bed(QC): 6 Sit to Stand (QC): 4 (SBA) Chair/Mbc-cl-Emydm Xfer(QC): 4 (SBA) Toilet Transfer (QC): 4 Car Transfer (QC): 3 Does the Patient Walk: No and Walking Goal IS indicated Walk 10 feet (QC): 4 Walk 50ft with 2 Turns (QC): 4 Walk 150 ft (QC): 88 Walking 10ft on Uneven Surface: 88 1 Step (curb) (QC): 88 4 Steps (QC): 88 12 Steps (QC): 88 Picking up an Object (QC): 88 Wheel 50 feet with 2 turns (QC: 6 Wheel 150 feet: 6 PT Plan Treatment/Plan Treatment Plan: Continue Plan of Care Treatment Plan: Bed Mobility, Education, Functional Activity [place], Functional Strength, Group Therapy, Gait, Safety, Therapeutic Exercise, Transfers Treatment Duration: Apr 30, 2020 Frequency: modified program 60 min/day, advance as patient is able Estimated Hrs Per Day: 1 hour per day Patient and/or Family Agrees t: Yes Time/GCodes Time In: 1000 Time Out: 1100 Total Billed Treatment Time: 60 Total Billed Treatment 1, GT 30', Ex 30'; co-tx with OT MIQUEL BELLO PT April 15, 2020 12:43
--- NOTE | 2020-04-15 14:28 | Physical Therapy Daily Note ---
PT Daily Note-Current Subjective Pt. in bed, states he has the urinal in place and "I'll do what I can" re: LE exercises. Transfers SCALE: Activities may be completed with or without assistive devices. 7-Lzhtynehcy-wqmxeml completes the activity by him/herself with no assistance from a helper. 5-Set-up or Clean-up Assistance-helper sets up or cleans up; patient completes activity. [place] assists only prior to or following the activity. 4-Supervision or Touching Assistance-helper provides verbal cues and/or touching/steadying and/or contact guard assistance as patient completes activity. Assistance may be provided throughout the activity or intermittently. 3-Partial/Moderate Assistance-helper does LESS THAN HALF the effort. [place] lifts, holds or supports trunk or limbs, but provides less than half the effort. 2-Substantial/Maximal Assistance-helper does MORE THAN HALF the effort. [place] lifts or holds trunk or limbs and provides more than half the effort. 5-Sxbtsmcjo-cxpshs does ALL the effort. Patient does none of the effort to complete the activity. Or, the assistance of 2 or more helpers is required for the patient to complete the activity. If activity was not attempted, code reason: 7-Patient Refused. 9-Not Applicable-not attempted and the patient did not perform the activity before the current illness, exacerbation or injury. 10-Not Attempted due to Environmental Limitations-(lack of equipment, weather restraints, etc.). 88-Not Attempted due to Medical Conditions or Safety Concerns. Sit to Lying (QC): 3 Lying to Sitting/Side of Bed(Q: 3 Sit to Stand (QC): 3 Weight Bearing Right Lower Extremity: Right Weight Bearing/Tolerated Left Lower Extremity: Left Weight Bearing/Tolerated hx of rbka Exercises Supine Ex: Ankle pumps (L only), Quad Set, Glut sets, Short Arc Quads, Straight leg raise, Hip abd/add Supine Reps: 20 Treatments LE exercises, transfers Assessment Current Status: Fair Progress Pt. initially agreeable with bed exercises; nurse present during session for patient to urinate while standing at EOB. Assist to ty R prosthesis and L shoe, min A with standing balance with FWW at EOB to use urinal. Therapist requested patient to sidestep to head of bed which he completed with mod A and became upset with therapist "asking him to do too much." Pt. returned to seated position, dependent to scoot to head of bed. Pt. placed in L sidelying with OT and nurse present, pillows elevated under extremities. Transfer of care to OT. Pt. again becomes easily upset during treatment for basic mobility activities and adamant therapist makes him do too much. PT Short Term Goals Short Term Goals Time Frame: April 16, 2020 Roll Left & Right: 6 Sit to lyin Lying to sitting on side of be: 4 Sit to stand: 3 Chair/bob-pw-kmyky transfer: 3 Walk 10 feet: 3 PT [facility] Goals [facility] Goals PT [facility] Goals Time Frame: Apr 30, 2020 Roll Left & Right (QC): 6 Sit to Lying (QC): 6 Lying-Sitting on Side/Bed(QC): 6 Sit to Stand (QC): 4 (SBA) Chair/Pko-rf-Uxzge Xfer(QC): 4 (SBA) Toilet Transfer (QC): 4 Car Transfer (QC): 3 Does the Patient Walk: No and Walking Goal IS indicated Walk 10 feet (QC): 4 Walk 50ft with 2 Turns (QC): 4 Walk 150 ft (QC): 88 Walking 10ft on Uneven Surface: 88 1 Step (curb) (QC): 88 4 Steps (QC): 88 12 Steps (QC): 88 Picking up an Object (QC): 88 Wheel 50 feet with 2 turns (QC: 6 Wheel 150 feet: 6 PT Plan Treatment/Plan Treatment Plan: Continue Plan of Care Treatment Plan: Bed Mobility, Education, Functional Activity [place], Functional Strength, Group Therapy, Gait, Safety, Therapeutic Exercise, Transfers Treatment Duration: Apr 30, 2020 Frequency: modified program 60 min/day, advance as patient is able Estimated Hrs Per Day: 1 hour per day Patient and/or Family Agrees t: Yes Time/GCodes Time In: 1347 Time Out: 1410 Total Billed Treatment Time: 23 Total Billed Treatment 1, Ex 13', FA 10' MIQUEL BELLO PT April 15, 2020 14:28
--- NOTE | 2020-04-15 14:30 | NUR ---
PT STATES HE FEELS UNCOMFORTABLE, BUT DOESN'T THINK HE HAS BEEN ABLE TO GO USING URINAL WHILE LAYING IN BED. PT HELPED TO STAND AT SIDE OF BED TO TRY URINATING, UNABLE. PT READJUSTED IN BED, BLADDER SCAN SHOWS 614CC IN BLADDER. STRAIGHT CATH PERFORMED PER [employer]CHNIQUE PROTOCOL. 650CC CLEAR, LIGHT YELLOW URINE REMOVED. PERICARE PROVIDED. PT STATES AT HOME HE SITS ON THE SIDE OF THE BED TO USE URINAL. EDU GIVEN, ENC. PT TO USE CALL LIGHT WHEN BEGINS TO FEEL FULL OR HAVE SENSATION, AND STAFF WILL HAVE HIM SIT ON THE SIDE OF BED HE DOES AT HOME TO TRY AND GO INSTEAD OF LAYING DOWN OR STANDING WITH URINAL. PT FEELS THIS MAY HELP. WILL CON'T TO MONITOR.
--- NOTE | 2020-04-15 15:30 | NUR ---
PT VOICES, "IT FEELS LIKE I'M FULL AGAIN AND HAVE TO GO." PT SET UP TO SIDE OF BED WITH ASSIST x1, URINAL PLACED. PT ABLE TO URINATE 400CC INTO URINAL. VOICES, "I THINK IF I'M BACK IN MY WHEELCHAIR AGAIN, I SHOULD BE ABLE TO GO LIKE I DO AT HOME, TOO." WILL CON'T TO MONITOR.
--- NOTE | 2020-04-15 15:42 | Occupational Ther Daily Note ---
OT Current Status-Daily Note Subjective No pain reported. Appearance Pt. up in chair when therapy entered room. Mental Status/Objective Patient Orientation: Person, Place Attachments: Clark Catheter ADL-Treatment Therapy Code Descriptions/Definitions Functional [place] Measure: 0=Not Assessed/NA 4=Minimal Assistance 1=Total Assistance 5=Supervision or Setup 2=Maximal Assistance 6=Modified [place] 3=Moderate Assistance 7=Complete IndependenceSCALE: Activities may be completed with or without assistive devices. 5-Xxxycnsrcw-kghznkr completes the activity by him/herself with no assistance from a helper. 5-Set-up or Clean-up Assistance-helper sets up or cleans up; patient completes activity. [place] assists only prior to or following the activity. 4-Supervision or Touching Assistance-helper provides verbal cues and/or touching/steadying and/or contact guard assistance as patient completes activity. Assistance may be provided throughout the activity or intermittently. 3-Partial/Moderate Assistance-helper does LESS THAN HALF the effort. [place] lifts, holds or supports trunk or limbs, but provides less than half the effort. 2-Substantial/Maximal Assistance-helper does MORE THAN HALF the effort. [place] lifts or holds trunk or limbs and provides more than half the effort. 0-Uduilqltb-pnszbg does ALL the effort. Patient does none of the effort to complete the activity. Or, the assistance of 2 or more helpers is required for the patient to complete the activity. If activity was not attempted, code reason: 7-Patient Refused. 9-Not Applicable-not attempted and the patient did not perform the activity before the current illness, exacerbation or injury. 10-Not Attempted due to Environmental Limitations-(lack of equipment, weather restraints, etc.). 88-Not Attempted due to Medical Conditions or Safety Concerns. Other Treatment PT up in chair. OT/PT co-treated due to skilled need of two therapists. OT provided UE exercises and skills for ADL care while PT facilitated transfers. Pt. is dressed and states that he dressed himself this a.m. Nursing is unable to confirm this, but does confirm that pt. took self to bathroom 3 times this a.m. Pt. becomes agitated and verbal with therapy when they initiate treatment. Pt. becomes somewhat impulsive with proving to therapy that he is able to transfer to toilet. Pt. takes self to bathroom and is able to stand with SBA using grab bars. Pt. declines bathing. Reluctantly agrees to come to therapy gym. PT attempts to put on gait belt and pt. becomes verbally upset with this. Does agree and pt. ambulates back and forth in parallel bars x 3 times, with rest break in between, with CGA/min assist. Pt. becomes encouraged at this. Agrees to walk with walker. Pt. ambulates twice with min assist and wheelchair follow, but becomes unstable on feet. States that he is "too wore out." Pt. agrees to work on UE/LE ROM exercises seated in chair. After c ompleting this, agrees to go back to room. Pt. requests to set up in chair. All needs met. Education OT Patient Education: Correct positioning, Exercise program, Progress toward Goal/Update tx plan, Purpose of tx/functional activities, Reviewed precautions, Rehab process, Transfer techniques Teaching Recipient: Patient Teaching Methods: Demonstration, Discussion Response to Teaching: Verbalize Understanding, Return Demonstration OT Short Term Goals Short Term Goals Time Frame: April 23, 2020 Eatin Oral hygiene: 4 Toileting hygiene: 3 Shower/bathe self: 3 Upper body dressin Lower body dressin Putting on/taking off footwear: 3 OT Director Pediatric Goals Director Pediatric Goals Time Frame: Apr 30, 2020 Eating (QC): 6 Oral Hygiene (QC): 5 Toileting Hygiene (QC): 4 Shower/Bathe Self (QC): 3 Upper Body Dressing (QC): 5 Lower Body Dressing (QC): 4 On/Off Footwear (QC): 5 Additional Goals: 1-Demonstrate ADL Tasks, 2-Verbalize Understanding, 3- ImproveStrength/Katlyn 1=Demonstrate adherence to instructed precautions during ADL tasks. 2=Patient will verbalize/demonstrate understanding of assistive devices/modifications for ADL. 3=Patient will improve strength/tolerance for activity to enable patient to perform ADL's. OT Education/Plan Problem List/Assessment Assessment: Decreased Activ Tolerance, Impaired I ADL's, Impaired Self-Care Skills Discharge Recommendations Plan/Recommendations: Continue POC Therapy Discharge Recommendati: Home & Family Patient/Family Goals Pt. is at physical baseline level. He reports this, and reports that he has all needed equipment. Pt. is continually difficult to engage in treatment, and somewhat verbally aggressive with staff. He becomes agitated easily. Treatment Plan/Plan of Care Treatment,Training & Education: Yes Patient would benefit from OT for education, treatment and training to promote independence in ADL's, mobility, safety and/or upper extremity function for ADL's. Plan of Care: ADL Retraining, Functional Mobility, Group Exercise/Act as Ind, UE Funct Exercise/Act Treatment Duration: Apr 30, 2020 Frequency: At least 5 of 7 days/Wk (IRF) Estimated Hrs Per Day: Other (Waiver(60 minutes per day until pt. can increase activity level.)) Agreement: Yes Rehab Potential: Fair Time/GCodes Start Time: 10:00 Stop Time: 11:00 Total Time Billed (hr/min): 60 Billed Treatment Time 1, FA x 4 Co-treatment with PT. Please see above note for designated roles. TELLY MACK OT April 15, 2020 15:42
--- NOTE | 2020-04-15 15:53 | Occupational Ther Daily Note ---
OT Current Status-Daily Note Subjective Pt. upset and verbally aggressive with therapy. Please see note. Mental Status/Objective Patient Orientation: Person ADL-Treatment Therapy Code Descriptions/Definitions Functional [place] Measure: 0=Not Assessed/NA 4=Minimal Assistance 1=Total Assistance 5=Supervision or Setup 2=Maximal Assistance 6=Modified [place] 3=Moderate Assistance 7=Complete IndependenceSCALE: Activities may be completed with or without assistive devices. 9-Wrlzdujejo-whxwuch completes the activity by him/herself with no assistance from a helper. 5-Set-up or Clean-up Assistance-helper sets up or cleans up; patient completes activity. [place] assists only prior to or following the activity. 4-Supervision or Touching Assistance-helper provides verbal cues and/or touching/steadying and/or contact guard assistance as patient completes activity. Assistance may be provided throughout the activity or intermittently. 3-Partial/Moderate Assistance-helper does LESS THAN HALF the effort. [place] lifts, holds or supports trunk or limbs, but provides less than half the effort. 2-Substantial/Maximal Assistance-helper does MORE THAN HALF the effort. [place] lifts or holds trunk or limbs and provides more than half the effort. 9-Jgzzgnqwa-uajatz does ALL the effort. Patient does none of the effort to complete the activity. Or, the assistance of 2 or more helpers is required for the patient to complete the activity. If activity was not attempted, code reason: 7-Patient Refused. 9-Not Applicable-not attempted and the patient did not perform the activity before the current illness, exacerbation or injury. 10-Not Attempted due to Environmental Limitations-(lack of equipment, weather restraints, etc.). 88-Not Attempted due to Medical Conditions or Safety Concerns. Toileting Hygiene (QC): 1 Other Treatment OT came into room to assist PT with pt. care as needed. Pt. standing at side of bed with nursing and PT,and is attempting to use urinal. Pt. is frustrated due to being unable to urinate. OT takes over for nursing. Dependent assist to don shorts over hips. Pt. is encouraged to side step to left side, to get self higher into bed. Pt. becomes very agitated at therapy for suggesting this, and transfers self onto bed. Mod assist to lay down. Max x 2 for bed mobility. Pt. declines further treatment and reports to therapy that "you just did too much with me today." All needs are met and OT orders pt. snack. Education OT Patient Education: Correct positioning, Modified ADL techniques, Progress toward Goal/Update tx plan, Purpose of tx/functional activities, Reviewed precautions, Rehab process, Transfer techniques Teaching Recipient: Patient Teaching Methods: Demonstration, Discussion Response to Teaching: Return Demonstration, Reinforcement Needed OT Short Term Goals Short Term Goals Time Frame: April 23, 2020 Eatin Oral hygiene: 4 Toileting hygiene: 3 Shower/bathe self: 3 Upper body dressin Lower body dressin Putting on/taking off footwear: 3 OT [facility] Goals Lobby Attendant Goals Time Frame: Apr 30, 2020 Eating (QC): 6 Oral Hygiene (QC): 5 Toileting Hygiene (QC): 4 Shower/Bathe Self (QC): 3 Upper Body Dressing (QC): 5 Lower Body Dressing (QC): 4 On/Off Footwear (QC): 5 Additional Goals: 1-Demonstrate ADL Tasks, 2-Verbalize Understanding, 3- ImproveStrength/Katlyn 1=Demonstrate adherence to instructed precautions during ADL tasks. 2=Patient will verbalize/demonstrate understanding of assistive devices/modifications for ADL. 3=Patient will improve strength/tolerance for activity to enable patient to perform ADL's. OT Education/Plan Problem List/Assessment Assessment: Decreased Activ Tolerance, Decreased UE Strength, Dependent Transfers, Impaired Bed Mobility, Impaired Funct Balance, Impaired I ADL's, Impaired Self-Care Skills, Restricted Funct UE ROM Discharge Recommendations Plan/Recommendations: Continue POC Therapy Discharge Recommendati: 24 Hour Supervision, Home & Family Treatment Plan/Plan of Care Treatment,Training & Education: Yes Patient would benefit from OT for education, treatment and training to promote independence in ADL's, mobility, safety and/or upper extremity function for ADL's. Plan of Care: ADL Retraining, Functional Mobility, Group Exercise/Act as Ind, UE Funct Exercise/Act Treatment Duration: Apr 30, 2020 Frequency: At least 5 of 7 days/Wk (IRF) Estimated Hrs Per Day: Other (Waiver(60 minutes per day until pt. can increase activity level.)) Agreement: Yes Rehab Potential: Fair Time/GCodes Start Time: 14:05 Stop Time: 14:13 Total Time Billed (hr/min): 8 Billed Treatment Time 1, TELLY PINON OT April 15, 2020 15:53
[2020-04-15 16:07] VITALS: BP 105/61
--- NOTE | 2020-04-15 17:00 | NUR ---
PT STATES, "I THINK I MIGHT HAVE TO GO AGAIN." HELPED UP TO SIDE OF BED SIT, URINAL GIVEN. PATIENT ATTEMPTS TO GO ON OWN FOR 3 MINUTES, URINATES 400CC WITH OCCASIONAL SLOWING AND STOPPING DURING STREAM.
[2020-04-15 17:37] VITALS: BP 105/63
[2020-04-15] MEDS: ENOXAPARIN 40 MG/0.4 ML (LOVENOX) SYR SC SCH (18:17)
[2020-04-15] MEDS: FLUoxetine HCL 20 MG (PROzac) CAP PO SCH (20:59)
[2020-04-15] MEDS: ATENOLOL 25 MG (TENORMIN) TAB PO SCH (21:00)
[2020-04-16 06:45] VITALS: BP 118/61
--- NOTE | 2020-04-16 06:55 | PM&R Progress Note ---
Subjective HPI/CC On Admission Date Seen by Provider: April 16, 2020 Time Seen by Provider: 11:00 Subjective/Events-last exam Had a loose BM this morning Clark is out and he is able to void on his own No pain is reported Diuresis has really helped him a great deal Checked meds and labs Conferred with RN Reviewed therapy notes Review of Systems General: Fatigue Cardiovascular: Edema Objective Exam Vital Signs Vital Signs Date Time Temp Pulse Resp B/P (MAP) Pulse Ox O2 Delivery O2 Flow Rate FiO2 04/16/20 18:23 87 Room Air 04/16/20 17:24 36.3 70 20 126/75 (92) 04/15/20 09:00 2.00 Capillary Refill : Less Than 3 Seconds General Appearance: No Apparent Distress, WD/WN, Chronically ill, Obese HEENT: PERRL/EOMI, Normal ENT Inspection, Pharynx Normal Neck: Full Range of Motion, Normal Inspection, Non Tender, Supple, Carotid Bruit Respiratory: Chest Non Tender, Lungs Clear, No Accessory Muscle Use, No Respiratory Distress, Decreased Breath Sounds Cardiovascular: Regular Rate, Rhythm, No Gallop, No JVD, No Murmur, Normal Peripheral Pulses Gastrointestinal: Normal Bowel Sounds, No Organomegaly, No Pulsatile Mass, Soft, Tenderness Back: Normal Inspection, No CVA Tenderness, No Vertebral Tenderness Extremity: Normal Capillary Refill, Normal Inspection, Normal Range of Motion, Non Tender, No Calf Tenderness, Pedal Edema Neurologic/Psychiatric: Alert, Oriented x3, No Motor/Sensory Deficits, Normal Mood/Affect, pan reclaim processor II-XII Norm as Tested, Motor Weakness, Other (right AKA) Skin: Normal Color, Warm/Dry Lymphatic: No Adenopathy Results/Procedures Lab Patient resulted labs reviewed. FIM Transfers Therapy Code Descriptions/Definitions Functional [place] Measure: 0=Not Assessed/NA 4=Minimal Assistance 1=Total Assistance 5=Supervision or Setup 2=Maximal Assistance 6=Modified [place] 3=Moderate Assistance 7=Complete IndependenceSCALE: Activities may be completed with or without assistive devices. 1-Ioktwgblhf-rctvpdj completes the activity by him/herself with no assistance from a helper. 5-Set-up or Clean-up Assistance-helper sets up or cleans up; patient completes activity. [place] assists only prior to or following the activity. 4-Supervision or Touching Assistance-helper provides verbal cues and/or touching/steadying and/or contact guard assistance as patient completes activity. Assistance may be provided throughout the activity or intermittently. 3-Partial/Moderate Assistance-helper does LESS THAN HALF the effort. [place] lifts, holds or supports trunk or limbs, but provides less than half the effort. 2-Substantial/Maximal Assistance-helper does MORE THAN HALF the effort. [place] lifts or holds trunk or limbs and provides more than half the effort. 2-Qvkpqeenh-hfxjng does ALL the effort. Patient does none of the effort to complete the activity. Or, the assistance of 2 or more helpers is required for the patient to complete the activity. If activity was not attempted, code reason: 7-Patient Refused. 9-Not Applicable-not attempted and the patient did not perform the activity before the current illness, exacerbation or injury. 10-Not Attempted due to Environmental Limitations-(lack of equipment, weather restraints, etc.). 88-Not Attempted due to Medical Conditions or Safety Concerns. Roll Left to Right (QC): 6 Sit to Lying (QC): 3 Sit to Stand (QC): 3 Chair/Ofq-in-Hgvxr Xfer(QC): 3 Car Transfer (QC): 1 Gait Training Does the Patient Walk?: Yes Distance: 5 x 15' Walk 10 feet (QC): 4 Walk 50 ft with 2 Turns(QC): 88 Walk 150 ft (QC): 88 Walking 10ft/uneven surface-QC: 88 Gait Persons Needed: 2 Gait Assistive Device: Parallel Bars Wheelchair Training Does the Pt Use a Wheelchair?: Yes Distance: 150'x2 Wheel 50 ft with 2 turns (QC): 4 Wheel 150 ft (QC): 3 Type of Wheelchair: Manual Stair Training 1 Step (curb) (QC): 88 4 Steps (QC): 88 12 Steps (QC): 88 Balance Picking up an Object (QC): 88 ADL-Treatment Eating (QC): 10 Oral Hygiene (QC): 7 Shower/Bathe Self (QC): 2 (Pt. requires max assist to shower self. Pt. unable to cleanse [place] area or LE. 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 Ischemic heart disease PVD severe Right BKA Smoker CARRIE COPD Urinary retention Clark in s/p cystoscopy Wednesday Dr Sal DM OOC Volume overload consulted Cardiology with improved status Plan: Pain meds IRF protocol PVR Dr Sal appreciated Insulin Diuresis (1) Critical illness myopathy (2) Abdominal pain Status: Acute (3) Hypoxia Status: Acute (4) Anemia Status: Chronic (5) Diabetes mellitus Status: Chronic (6) COPD (chronic obstructive pulmonary disease) Status: Chronic (7) Chronic respiratory failure with hypoxia (8) Cardiac pacemaker Status: Chronic (9) Coronary artery disease Status: Chronic (10) DVT prophylaxis Status: Acute (11) S/P partial resection of colon Status: Acute (12) 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
[2020-04-16] MEDS: RT-ALBUTEROL/IPRATROPIUM 3 ML (DUONEB) VIAL INH SCH ×4 (07:06→18:23)
[2020-04-16] MEDS: HYDROcodone/APAP 5 MG/325 MG (LORTAB) TAB PO PRN ×2 (07:53→17:27)
[2020-04-16] MEDS: CATHETER FLUSH 10 ML SYR IV SCH ×3 (08:43→22:36)
[2020-04-16] MEDS: inSUlin ASPART (NovoLOG) 1 UNIT/0.01 ML (CHARGE PER UNIT) SC SCH ×4 (08:44→20:59)
[2020-04-16] MEDS: KCL 20 MEQ TAB (K-DUR) PO SCH (08:44)
[2020-04-16] MEDS: ASPIRIN E.C. 81 MG (ECOTRIN) TAB PO SCH (09:41)
[2020-04-16] MEDS: FINASTERIDE (PROSCAR) 5 MG TAB PO SCH (09:42)
[2020-04-16] MEDS: TAMSULOSIN 0.4 MG (FLOMAX) CAP PO SCH ×2 (09:42→20:49)
[2020-04-16] MEDS: PANTOPRAZOLE 40 MG (PROTONIX) TAB PO SCH ×2 (09:42→20:49)
[2020-04-16] MEDS: GABAPENTIN 300 MG (NEURONTIN) CAP PO SCH ×2 (09:42→20:58)
[2020-04-16] MEDS: FUROSEMIDE 40 MG/4 ML INJ (LASIX) IVP SCH (09:43)
[2020-04-16] MEDS: polyethylene glycoL POWDER 17 GM (MIRALAX) PACK PO SCH ×2 (09:44→20:49)
[2020-04-16] MEDS: DOCUSATE SODIUM 100 MG (COLACE) CAP PO SCH ×2 (09:44→20:48)
[2020-04-16] MEDS: SENNA W/DOCUSATE (SENOKOT S) TABLET PO SCH ×2 (09:44→20:49)
--- NOTE | 2020-04-16 09:53 | Progress Note - Urology ---
Progress Note-Urology Progress Notes/Assess & Plan Progress/Assessment & Plan VOIDING WELL. EMPTIES WELL. KEEP SAME PLAN. Final Diagnosis URINE RETENTION DORA MARINO MD April 16, 2020 09:53
--- NOTE | 2020-04-16 11:27 | Occupational Ther Daily Note ---
OT Current Status-Daily Note Subjective No pain reported. Appearance Pt. up in wheelchair. Pt. is dressed. Mental Status/Objective Patient Orientation: Person, Place ADL-Treatment Therapy Code Descriptions/Definitions Functional [place] Measure: 0=Not Assessed/NA 4=Minimal Assistance 1=Total Assistance 5=Supervision or Setup 2=Maximal Assistance 6=Modified [place] 3=Moderate Assistance 7=Complete IndependenceSCALE: Activities may be completed with or without assistive devices. 2-Vbiiiipkom-kdhtxjb completes the activity by him/herself with no assistance from a helper. 5-Set-up or Clean-up Assistance-helper sets up or cleans up; patient completes activity. [place] assists only prior to or following the activity. 4-Supervision or Touching Assistance-helper provides verbal cues and/or touching/steadying and/or contact guard assistance as patient completes activity. Assistance may be provided throughout the activity or intermittently. 3-Partial/Moderate Assistance-helper does LESS THAN HALF the effort. [place] lifts, holds or supports trunk or limbs, but provides less than half the effort. 2-Substantial/Maximal Assistance-helper does MORE THAN HALF the effort. [place] lifts or holds trunk or limbs and provides more than half the effort. 0-Zibqenggb-yhvazd does ALL the effort. Patient does none of the effort to complete the activity. Or, the assistance of 2 or more helpers is required for the patient to complete the activity. If activity was not attempted, code reason: 7-Patient Refused. 9-Not Applicable-not attempted and the patient did not perform the activity before the current illness, exacerbation or injury. 10-Not Attempted due to Environmental Limitations-(lack of equipment, weather restraints, etc.). 88-Not Attempted due to Medical Conditions or Safety Concerns. Eating (QC): 5 Pt. is already dressed. Declines bathing. Pt. agrees to work with OT. Self propels wheelchair backward to therapy gym. Pt. completes 10 minutes on arm bike at mod resistance. OT engages pt. in conversation about cars, family. Pt. is able to verbalize and is able to complete the 10 minutes for increased endurance. Pt. then dons 1 lb. wrist weights and completes therapy peg activity with bilateral coordination and reaching, for overall strength. Pt. tolerated this well. Pt. self propelled back to room in wheelchair, and requested food. OT called kitchen and ordered pt. requested food. All needs met in room. Education OT Patient Education: Correct positioning, Exercise program, Modified ADL techniques, Progress toward Goal/Update tx plan, Purpose of tx/functional activities, Reviewed precautions, Rehab process, Transfer techniques Teaching Recipient: Patient Teaching Methods: Demonstration, Discussion Response to Teaching: Verbalize Understanding, Return Demonstration OT Short Term Goals Short Term Goals Time Frame: April 23, 2020 Eatin Oral hygiene: 4 Toileting hygiene: 3 Shower/bathe self: 3 Upper body dressin Lower body dressin Putting on/taking off footwear: 3 OT Closer On Goals Alf Goals Time Frame: Apr 30, 2020 Eating (QC): 6 Oral Hygiene (QC): 5 Toileting Hygiene (QC): 4 Shower/Bathe Self (QC): 3 Upper Body Dressing (QC): 5 Lower Body Dressing (QC): 4 On/Off Footwear (QC): 5 Additional Goals: 1-Demonstrate ADL Tasks, 2-Verbalize Understanding, 3-ImproveStrength/Katlyn 1=Demonstrate adherence to instructed precautions during ADL tasks. 2=Patient will verbalize/demonstrate understanding of assistive devices/modifications for ADL. 3=Patient will improve strength/tolerance for activity to enable patient to perform ADL's. OT Education/Plan Problem List/Assessment Assessment: Decreased Activ Tolerance, Decreased UE Strength, Impaired I ADL's, Impaired Self-Care Skills Discharge Recommendations Plan/Recommendations: Continue POC Treatment Plan/Plan of Care Treatment,Training & Education: Yes Patient would benefit from OT for education, treatment and training to promote independence in ADL's, mobility, safety and/or upper extremity function for ADL's. Plan of Care: ADL Retraining, Functional Mobility, Group Exercise/Act as Ind, UE Funct Exercise/Act Treatment Duration: Apr 30, 2020 Frequency: At least 5 of 7 days/Wk (IRF) Estimated Hrs Per Day: Other (Waiver(60 minutes per day until pt. can increase activity level.)) Agreement: Yes Rehab Potential: Fair Time/GCodes Start Time: 08:10 Stop Time: 09:00 Total Time Billed (hr/min): 50 Billed Treatment Time 1, Ex x 20minutes, FA x 30minutes TELLY MACK OT April 16, 2020 11:26
--- NOTE | 2020-04-16 11:31 | Physical Therapy Daily Note ---
PT Daily Note-Current Subjective States that he is doing okay and he would like to walk. Transfers SCALE: Activities may be completed with or without assistive devices. 6-Meroprylit-jgfewoj completes the activity by him/herself with no assistance from a helper. 5-Set-up or Clean-up Assistance-helper sets up or cleans up; patient completes activity. [place] assists only prior to or following the activity. 4-Supervision or Touching Assistance-helper provides verbal cues and/or touching/steadying and/or contact guard assistance as patient completes activity. Assistance may be provided throughout the activity or intermittently. 3-Partial/Moderate Assistance-helper does LESS THAN HALF the effort. [place] lifts, holds or supports trunk or limbs, but provides less than half the effort. 2-Substantial/Maximal Assistance-helper does MORE THAN HALF the effort. [place] lifts or holds trunk or limbs and provides more than half the effort. 7-Crvwszgej-bujphz does ALL the effort. Patient does none of the effort to complete the activity. Or, the assistance of 2 or more helpers is required for the patient to complete the activity. If activity was not attempted, code reason: 7-Patient Refused. 9-Not Applicable-not attempted and the patient did not perform the activity before the current illness, exacerbation or injury. 10-Not Attempted due to Environmental Limitations-(lack of equipment, weather restraints, etc.). 88-Not Attempted due to Medical Conditions or Safety Concerns. Sit to Stand (QC): 4 Weight Bearing Right Lower Extremity: Right Weight Bearing/Tolerated Left Lower Extremity: Left Weight Bearing/Tolerated hx of rbka Gait Training Does the Patient Walk?: Yes Distance: 70' x 1, 10' x 3, 25' x 4 Walk 10 feet (QC): 4 Gait Persons Needed: 2 Gait Assistive Device: FWW Wheelchair Training Does the Pt Use a Wheelchair?: Yes Wheel 50 ft with 2 turns (QC): 6 Wheel 150 ft (QC): 6 Type of Wheelchair: Manual Wheelchair training with OT both on IRF and in outside courtyard Exercises Seated Therapy Exercises: Sit to stand Seated Reps: 5 Treatments Co-treat with OT from 1000 - 1100 for assistance with transfer training and wheelchair training. Assessment Current Status: Excellent Progress The patient did well with ambulation today however he does continue to have some instability. PT Short Term Goals Short Term Goals Time Frame: April 16, 2020 Roll Left & Right: 6 Sit to lyin Lying to sitting on side of be: 4 Sit to stand: 3 Chair/yqj-fz-tdtbb transfer: 3 Walk 10 feet: 3 PT Supply Chain Development Manager Goals Supply Chain Development Manager Goals PT Residential Goals Time Frame: Apr 30, 2020 Roll Left & Right (QC): 6 Sit to Lying (QC): 6 Lying-Sitting on Side/Bed(QC): 6 Sit to Stand (QC): 4 (SBA) Chair/Wun-db-Gripu Xfer(QC): 4 (SBA) Toilet Transfer (QC): 4 Car Transfer (QC): 3 Does the Patient Walk: No and Walking Goal IS indicated Walk 10 feet (QC): 4 Walk 50ft with 2 Turns (QC): 4 Walk 150 ft (QC): 88 Walking 10ft on Uneven Surface: 88 1 Step (curb) (QC): 88 4 Steps (QC): 88 12 Steps (QC): 88 Picking up an Object (QC): 88 Wheel 50 feet with 2 turns (QC: 6 Wheel 150 feet: 6 PT Plan Treatment/Plan Treatment Plan: Continue Plan of Care Treatment Plan: Bed Mobility, Education, Functional Activity Katlyn, Functional Strength, Group Therapy, Gait, Safety, Therapeutic Exercise, Transfers Treatment Duration: Apr 30, 2020 Frequency: modified program 60 min/day, advance as patient is able Estimated Hrs Per Day: 1 hour per day Patient and/or Family Agrees t: Yes Time/GCodes Time In: 1000 Time Out: 1100 Total Billed Treatment Time: 60 Total Billed Treatment 1, 30' GT, 30' FA TENNILLE PETERS PT April 16, 2020 11:31
--- NOTE | 2020-04-16 14:00 | NUR ---
PT VOIDED 225ml, FELT DID NOT EMPTY BLADDER. POST BLADDER SCANNED 328ml, ATTEMPTED TO VOID AGAIN AND VOIDED ANOTHER 300ml. POST BLADDER SCAN 62ml.
--- NOTE | 2020-04-16 14:11 | Physical Therapy Daily Note ---
PT Daily Note-Current Subjective States that he is doing okay. Transfers SCALE: Activities may be completed with or without assistive devices. 4-Ronugnozmr-dcmxbmu completes the activity by him/herself with no assistance from a helper. 5-Set-up or Clean-up Assistance-helper sets up or cleans up; patient completes activity. [place] assists only prior to or following the activity. 4-Supervision or Touching Assistance-helper provides verbal cues and/or touching/steadying and/or contact guard assistance as patient completes activity. Assistance may be provided throughout the activity or intermittently. 3-Partial/Moderate Assistance-helper does LESS THAN HALF the effort. [place] lifts, holds or supports trunk or limbs, but provides less than half the effort. 2-Substantial/Maximal Assistance-helper does MORE THAN HALF the effort. [place] lifts or holds trunk or limbs and provides more than half the effort. 4-Bfewsekzr-wodwjo does ALL the effort. Patient does none of the effort to complete the activity. Or, the assistance of 2 or more helpers is required for the patient to complete the activity. If activity was not attempted, code reason: 7-Patient Refused. 9-Not Applicable-not attempted and the patient did not perform the activity before the current illness, exacerbation or injury. 10-Not Attempted due to Environmental Limitations-(lack of equipment, weather restraints, etc.). 88-Not Attempted due to Medical Conditions or Safety Concerns. Weight Bearing Right Lower Extremity: Right Weight Bearing/Tolerated Left Lower Extremity: Left Weight Bearing/Tolerated hx of rbka Exercises Supine Ex: LE Protocol Supine Reps: 20 Assessment Current Status: Excellent Progress Patient has significant tightness in (B) hamstrings. PT Short Term Goals Short Term Goals Time Frame: April 16, 2020 Roll Left & Right: 6 Sit to lyin Lying to sitting on side of be: 4 Sit to stand: 3 Chair/llo-ko-qjhak transfer: 3 Walk 10 feet: 3 PT Obstetrics Gynecology Md Goals Chcf Goals PT Obstetrics Gynecology Md Goals Time Frame: Apr 30, 2020 Roll Left & Right (QC): 6 Sit to Lying (QC): 6 Lying-Sitting on Side/Bed(QC): 6 Sit to Stand (QC): 4 (SBA) Chair/Fwg-wx-Msfza Xfer(QC): 4 (SBA) Toilet Transfer (QC): 4 Car Transfer (QC): 3 Does the Patient Walk: No and Walking Goal IS indicated Walk 10 feet (QC): 4 Walk 50ft with 2 Turns (QC): 4 Walk 150 ft (QC): 88 Walking 10ft on Uneven Surface: 88 1 Step (curb) (QC): 88 4 Steps (QC): 88 12 Steps (QC): 88 Picking up an Object (QC): 88 Wheel 50 feet with 2 turns (QC: 6 Wheel 150 feet: 6 PT Plan Treatment/Plan Treatment Plan: Continue Plan of Care Treatment Plan: Bed Mobility, Education, Functional Activity Katlyn, Functional Strength, Group Therapy, Gait, Safety, Therapeutic Exercise, Transfers Treatment Duration: Apr 30, 2020 Frequency: modified program 60 min/day, advance as patient is able Estimated Hrs Per Day: 1 hour per day Patient and/or Family Agrees t: Yes Time/GCodes Time In: 1340 Time Out: 1350 Total Billed Treatment Time: 10 Total Billed Treatment 1, EX x 10' TENNILLE PETERS PT April 16, 2020 14:11
--- NOTE | 2020-04-16 14:18 | Occupational Ther Daily Note ---
OT Current Status-Daily Note Subjective No pain reported. Appearance Pt. up in chair. Agrees to work with therapy. Mental Status/Objective Patient Orientation: Person, Place ADL-Treatment Therapy Code Descriptions/Definitions Functional [place] Measure: 0=Not Assessed/NA 4=Minimal Assistance 1=Total Assistance 5=Supervision or Setup 2=Maximal Assistance 6=Modified [place] 3=Moderate Assistance 7=Complete IndependenceSCALE: Activities may be completed with or without assistive devices. 6-Tjprdihbdx-pabllix completes the activity by him/herself with no assistance from a helper. 5-Set-up or Clean-up Assistance-helper sets up or cleans up; patient completes activity. [place] assists only prior to or following the activity. 4-Supervision or Touching Assistance-helper provides verbal cues and/or touchi ng/steadying and/or contact guard assistance as patient completes activity. Assistance may be provided throughout the activity or intermittently. 3-Partial/Moderate Assistance-helper does LESS THAN HALF the effort. [place] lifts, holds or supports trunk or limbs, but provides less than half the effort. 2-Substantial/Maximal Assistance-helper does MORE THAN HALF the effort. [place] lifts or holds trunk or limbs and provides more than half the effort. 4-Pgeozgpcs-fddrcp does ALL the effort. Patient does none of the effort to complete the activity. Or, the assistance of 2 or more helpers is required for the patient to complete the activity. If activity was not attempted, code reason: 7-Patient Refused. 9-Not Applicable-not attempted and the patient did not perform the activity before the current illness, exacerbation or injury. 10-Not Attempted due to Environmental Limitations-(lack of equipment, weather restraints, etc.). 88-Not Attempted due to Medical Conditions or Safety Concerns. Other Treatment Pt. seen by OT/PT for co-treatment due to level of need of skilled therapy x 2 for all mobility/transfers/ambulation. OT attempted to focus on ADL skills as well as hand placement during ambulation. Pt. worked on self propulsion in backward direction of wheelchair, as this is easier for him. Pt. propelled self to therapy gym. Pt. concerned that he would not be able to ambulate in walker, so requested to use walker inside parallel bars. Pt. required more assist this date than yesterday. Pt. required mod assist to stand, and min assist with wheelchair follow in parallel bars with walker. Pt. did this 3 times with rest break in between. Pt. agreed to attempt ambulation with walker outside of bars. Mod assist to stand, min assist with follow to ambulate. Pt. ambulated twice, approximately 40 feet, and then 60 feet. Pt. states that he is too tired to complete more activity, but does agree to go outside for fresh air. Pt. practiced wheelchair mobility in hallways, on and off the elevator and through doorways. OT/PT talked with pt. regarding home set up and needs. Pt. verbalizes that his spouse is working on finding someone to widen his doorways in home. Pt. verbalizes that he has a wheelchair, and that he completes most tasks from wheelchair level. Talked about safety with going outside, such as carrying phone with him at all times. Pt. verbalizes understanding. All needs met. Education OT Patient Education: Correct positioning, Progress toward Goal/Update tx plan, Purpose of tx/functional activities, Reviewed precautions, Rehab process, Transfer techniques, W/C management Teaching Recipient: Patient Teaching Methods: Demonstration, Discussion Response to Teaching: Verbalize Understanding, Return Demonstration OT Short Term Goals Short Term Goals Time Frame: April 23, 2020 Eatin Oral hygiene: 4 Toileting hygiene: 3 Shower/bathe self: 3 Upper body dressin Lower body dressin Putting on/taking off footwear: 3 OT Senior Care Goals Senior Care Goals Time Frame: Apr 30, 2020 Eating (QC): 6 Oral Hygiene (QC): 5 Toileting Hygiene (QC): 4 Shower/Bathe Self (QC): 3 Upper Body Dressing (QC): 5 Lower Body Dressing (QC): 4 On/Off Footwear (QC): 5 Additional Goals: 1-Demonstrate ADL Tasks, 2-Verbalize Understanding, 3-ImproveStrength/Katlyn 1=Demonstrate adherence to instructed precautions during ADL tasks. 2=Patient will verbalize/demonstrate understanding of assistive devices/modifications for ADL. 3=Patient will improve strength/tolerance for activity to enable patient to perform ADL's. OT Education/Plan Problem List/Assessment Assessment: Decreased Activ Tolerance, Dependent Transfers, Impaired I ADL's, Impaired Self-Care Skills Discharge Recommendations Plan/Recommendations: Continue POC Treatment Plan/Plan of Care Treatment,Training & Education: Yes Patient would benefit from OT for education, treatment and training to promote independence in ADL's, mobility, safety and/or upper extremity function for ADL's. Plan of Care: ADL Retraining, Functional Mobility, Group Exercise/Act as Ind, UE Funct Exercise/Act Treatment Duration: Apr 30, 2020 Frequency: At least 5 of 7 days/Wk (IRF) Estimated Hrs Per Day: Other (Waiver(60 minutes per day until pt. can increase activity level.)) Agreement: Yes Rehab Potential: Fair Time/GCodes Start Time: 10:00 Stop Time: 11:00 Total Time Billed (hr/min): 60 Billed Treatment Time 1, FA x 4 TELLY MACK OT April 16, 2020 14:18
--- NOTE | 2020-04-16 15:39 | NUR ---
CM/SS CONCURRENT DOCUMENTATION Observed patient during therapy session this a.m. Reviewed EMR. Patient/staff trying to return to his method regarding positioning for successful urination. Swelling left arm and leg noted.
[2020-04-16 17:24] VITALS: BP 126/75
[2020-04-16] MEDS: ENOXAPARIN 40 MG/0.4 ML (LOVENOX) SYR SC SCH (17:56)
--- NOTE | 2020-04-16 18:08 | Progress Note - Cardiology ---
Cardiology SOAP Progress Note Subjective: Shortness of breath improved Swelling resolved No cp or palp or syncope No focal weakness Gen weakness present Objective: I&O/Vital Signs 04/16/20 04/16/20 04/16/20 04/16/20 06:45 07:06 09:00 17:24 Temp 36.2 36.3 Pulse 70 70 Resp 20 20 B/P (MAP) 118/61 (80) 126/75 (92) Pulse Ox 92 91 93 O2 Delivery Room Air Room Air Nasal Cannula Room Air 04/16/20 00:00 Intake Total 1200 ml Output Total 2900 ml Balance -1700 ml Weight (Pounds): 226 Weight (Ounces): 9.6 Weight (Calculated Kilograms): [id number] Constitutional: AAO x 3, well-developed, well-nourished Respiratory: No accessory muscle use, No respiratory distress; other (diminished lower lobes with prolonged exp phase) Cardiovascular: regular rate-rhythm; No JVD; S1 and S2, systolic murmur Gastrointestional: No tender; soft, round, other (abd incisions x [address], edges approx, no evidence of redness or drainage) Genital/Rectal: other (scrotal swelling) Extremities: other (pitting edema bilat LE; upper extremities; hands. R BKA) Neurologic/Psychiatric: grossly intact (moves extremities) Skin: No rash on exposed areas, No ulcerations on exposed areas Results/Procedures: Labs Laboratory Tests 04/15/20 20:12: Glucometer 355H 04/16/20 06:57: Glucometer 143H 04/16/20 11:00: Glucometer 53*L 04/16/20 11:40: Glucometer 113H 04/16/20 16:36: Glucometer 255H Laboratory Tests 04/15/20 05:20 A/P: Assessment: Ac systolic and diastolic CHF, clinically improved Worsening renal insufficiency, likely due to diuretics (intravascular volume depletion) CAD - reported h/o CABG x 4 vessel - date and details unknown Echo of 04/11/20: LVEF 40-45%, grade 3 wolf dysfunction, biatrial enlargement, PASP 55-60 mmHg PPM - reports followed by Dr. Parada his primary glass fitter - details unknown H/O R BKA - per pt it was done at the time of CABG - details unknown Open colon resection on 04-03-[address] Henderson d/t ischemic colon DM 2 HTN HLD Macular degeneration H/O tobaccoism - states he has not smoked in years Prob COPD BPH with urinary retention and hematuria - managed per Dr. Sal Plan: * Monitor lab closely * I discussed his CV issues and our treatment plan with him JOSIAH MORENO MD FACP FAC CCDS April 16, 2020 18:08
[2020-04-16] MEDS: DICLOFENAC 1% GEL 100 GM (VOLTAREN) TUBE TOP PRN (18:45)
--- NOTE | 2020-04-16 19:08 | NUR ---
bedside report received from GARIMA HARVEY, assume care of pt
[2020-04-16] MEDS: ATENOLOL 25 MG (TENORMIN) TAB PO SCH (20:53)
[2020-04-16] MEDS: FLUoxetine HCL 20 MG (PROzac) CAP PO SCH (20:53)
--- NOTE | 2020-04-16 20:59 | NUR ---
pt refused ace, Sensundayot & miralax
--- NOTE | 2020-04-16 21:00 | NUR ---
fsbs 272 NovoLog 11 units given
--- NOTE | 2020-04-16 22:30 | NUR ---
back to bed with 1 person assist from w/c
[2020-04-17] MEDS: RT-ALBUTEROL/IPRATROPIUM 3 ML (DUONEB) VIAL INH SCH ×3 (05:57→18:33)
[2020-04-17 06:00] VITALS: BP 132/60
[2020-04-17] MEDS: inSUlin ASPART (NovoLOG) 1 UNIT/0.01 ML (CHARGE PER UNIT) SC SCH ×4 (06:00→20:20)
[2020-04-17] MEDS: CATHETER FLUSH 10 ML SYR IV SCH ×3 (06:45→20:20)
[2020-04-17] MEDS: KCL 20 MEQ TAB (K-DUR) PO SCH (06:46)
--- NOTE | 2020-04-17 06:50 | PM&R Progress Note ---
Subjective HPI/CC On Admission Date Seen by Provider: April 17, 2020 Time Seen by Provider: 11:00 Subjective/Events-last exam Pt wants to go home soon Creatinine 1.69 two days ago Baseline activity so he really wants to go home Diuresis has been very successful Denies any significant other new issues Checked meds and labs Conferred with RN Reviewed therapy notes Review of Systems General: Fatigue Cardiovascular: Edema Objective Exam Vital Signs Vital Signs Date Time Temp Pulse Resp B/P (MAP) Pulse Ox O2 Delivery O2 Flow Rate FiO2 04/18/20 05:01 36.5 73 16 122/53 (76) 93 Nasal Cannula 04/17/20 20:04 3.00 Capillary Refill : Less Than 3 Seconds General Appearance: No Apparent Distress, WD/WN, Chronically ill, Obese HEENT: PERRL/EOMI, Normal ENT Inspection, Pharynx Normal Neck: Full Range of Motion, Normal Inspection, Non Tender, Supple, Carotid Bruit Respiratory: Chest Non Tender, Lungs Clear, No Accessory Muscle Use, No Respiratory Distress, Decreased Breath Sounds Cardiovascular: Regular Rate, Rhythm, No Gallop, No JVD, No Murmur, Normal Peripheral Pulses Gastrointestinal: Normal Bowel Sounds, No Organomegaly, No Pulsatile Mass, Soft, Tenderness Back: Normal Inspection, No CVA Tenderness, No Vertebral Tenderness Extremity: Normal Capillary Refill, Normal Inspection, Normal Range of Motion, Non Tender, No Calf Tenderness, Pedal Edema Neurologic/Psychiatric: Alert, Oriented x3, No Motor/Sensory Deficits, Normal Mood/Affect, tire wrapper II-XII Norm as Tested, Motor Weakness, Other (right AKA) Skin: Normal Color, Warm/Dry Lymphatic: No Adenopathy Results/Procedures Lab Patient resulted labs reviewed. FIM Transfers Therapy Code Descriptions/Definitions Functional [place] Measure: 0=Not Assessed/NA 4=Minimal Assistance 1=Total Assistance 5=Supervision or Setup 2=Maximal Assistance 6=Modified [place] 3=Moderate Assistance 7=Complete IndependenceSCALE: Activities may be completed with or without assistive devices. 6-Yblfpqptyb-udugypc completes the activity by him/herself with no assistance from a helper. 5-Set-up or Clean-up Assistance-helper sets up or cleans up; patient completes activity. [place] assists only prior to or following the activity. 4-Supervision or Touching Assistance-helper provides verbal cues and/or touching/steadying and/or contact guard assistance as patient completes activity. Assistance may be provided throughout the activity or intermittently. 3-Partial/Moderate Assistance-helper does LESS THAN HALF the effort. [place] lifts, holds or supports trunk or limbs, but provides less than half the effort. 2-Substantial/Maximal Assistance-helper does MORE THAN HALF the effort. [place] lifts or holds trunk or limbs and provides more than half the effort. 7-Lsurqcqjf-ryfzxw does ALL the effort. Patient does none of the effort to complete the activity. Or, the assistance of 2 or more helpers is required for the patient to complete the activity. If activity was not attempted, code reason: 7-Patient Refused. 9-Not Applicable-not attempted and the patient did not perform the activity before the current illness, exacerbation or injury. 10-Not Attempted due to Environmental Limitations-(lack of equipment, weather restraints, etc.). 88-Not Attempted due to Medical Conditions or Safety Concerns. Roll Left to Right (QC): 6 Sit to Lying (QC): 3 Sit to Stand (QC): 4 Chair/Wbl-dk-Wbrop Xfer(QC): 3 Car Transfer (QC): 1 Gait Training Does the Patient Walk?: Yes Distance: 70' x 1, 10' x 3, 25' x 4 Walk 10 feet (QC): 4 Walk 50 ft with 2 Turns(QC): 88 Walk 150 ft (QC): 88 Walking 10ft/uneven surface-QC: 88 Gait Persons Needed: 2 Gait Assistive Device: FWW Wheelchair Training Does the Pt Use a Wheelchair?: Yes Distance: 150'x2 Wheel 50 ft with 2 turns (QC): 6 Wheel 150 ft (QC): 6 Type of Wheelchair: Manual Stair Training 1 Step (curb) (QC): 88 4 Steps (QC): 88 12 Steps (QC): 88 Balance Picking up an Object (QC): 88 ADL-Treatment Eating (QC): 5 Oral Hygiene (QC): 7 Shower/Bathe Self (QC): 2 (Pt. requires max assist to shower self. Pt. unable to cleanse [place] area or LE. 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 Ischemic heart disease PVD severe Right BKA Smoker CARRIE COPD Urinary retention [place] in s/p cystoscopy Wednesday Dr Sal DM OOC Volume overload consulted Cardiology with improved status Plan: Pain meds IRF protocol PVR Dr Sal appreciated Insulin Diuresis (1) Critical illness myopathy (2) Abdominal pain Status: Acute (3) Hypoxia Status: Acute (4) Anemia Status: Chronic (5) Diabetes mellitus Status: Chronic (6) COPD (chronic obstructive pulmonary disease) Status: Chronic (7) Chronic respiratory failure with hypoxia (8) Cardiac pacemaker Status: Chronic (9) Coronary artery disease Status: Chronic (10) DVT prophylaxis Status: Acute (11) S/P partial resection of colon Status: Acute (12) 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 (13) Smoker Status: Chronic AGATHA PAZ DO April 17, 2020 06:50
[2020-04-17] MEDS: FINASTERIDE (PROSCAR) 5 MG TAB PO SCH (08:17)
[2020-04-17] MEDS: ASPIRIN E.C. 81 MG (ECOTRIN) TAB PO SCH (08:17)
[2020-04-17] MEDS: TAMSULOSIN 0.4 MG (FLOMAX) CAP PO SCH ×2 (08:17→20:20)
[2020-04-17] MEDS: GABAPENTIN 300 MG (NEURONTIN) CAP PO SCH ×2 (08:17→20:20)
[2020-04-17] MEDS: FUROSEMIDE 40 MG/4 ML INJ (LASIX) IVP SCH (08:17)
[2020-04-17] MEDS: PANTOPRAZOLE 40 MG (PROTONIX) TAB PO SCH ×2 (08:17→20:20)
[2020-04-17] MEDS: DICLOFENAC 1% GEL 100 GM (VOLTAREN) TUBE TOP PRN (08:29)
--- NOTE | 2020-04-17 08:44 | Occupational Ther Daily Note ---
OT Current Status-Daily Note Subjective No pain reported. Pt. states, "They got me up at 5:00 and wont let me go back to bed." Appearance Pt. up in wheelchair. Requests to lay back down. Mental Status/Objective Patient Orientation: Person, Place ADL-Treatment Therapy Code Descriptions/Definitions Functional [place] Measure: 0=Not Assessed/NA 4=Minimal Assistance 1=Total Assistance 5=Supervision or Setup 2=Maximal Assistance 6=Modified [place] 3=Moderate Assistance 7=Complete IndependenceSCALE: Activities may be completed with or without assistive devices. 7-Uqottguixe-dixleir completes the activity by him/herself with no assistance from a helper. 5-Set-up or Clean-up Assistance-helper sets up or cleans up; patient completes activity. [place] assists only prior to or following the activity. 4-Supervision or Touching Assistance-helper provides verbal cues and/or touching/steadying and/or contact guard assistance as patient completes activity. Assistance may be provided throughout the activity or intermittently. 3-Partial/Moderate Assistance-helper does LESS THAN HALF the effort. [place] lifts, holds or supports trunk or limbs, but provides less than half the effort. 2-Substantial/Maximal Assistance-helper does MORE THAN HALF the effort. [place] lifts or holds trunk or limbs and provides more than half the effort. 6-Exkkcxdqt-hunbhb does ALL the effort. Patient does none of the effort to complete the activity. Or, the assistance of 2 or more helpers is required for the patient to complete the activity. If activity was not attempted, code reason: 7-Patient Refused. 9-Not Applicable-not attempted and the patient did not perform the activity before the current illness, exacerbation or injury. 10-Not Attempted due to Environmental Limitations-(lack of equipment, weather restraints, etc.). 88-Not Attempted due to Medical Conditions or Safety Concerns. On/Off Footwear: 6 Toileting Hygiene (QC): 6 Other Treatment Pt. seen by occupational therapy this a.m. Pt. declines all attempts at bathing. Pt. dressed in clothes from yesterday, but states, "they aren't dirty, I am staying in these." OT does not push topic as to not agitate pt. Pt. requests to lay back down but agrees to wash face at sink first. Pt. propels wheelchair into bathroom and washes face. Pt. then propels wheelchair into room and uses urinal from chair level with independence. After toileting, pt. transfers self to bed with Mod I by using railing, standing, and pivoting. Pt. able to lay self down and remove prosthetic leg. All needs met. Education OT Patient Education: Correct positioning, Modified ADL techniques, Progress toward Goal/Update tx plan, Purpose of tx/functional activities, Reviewed precautions, Rehab process, Transfer techniques Teaching Recipient: Patient Teaching Methods: Demonstration, Discussion Response to Teaching: Verbalize Understanding, Return Demonstration OT Short Term Goals Short Term Goals Time Frame: April 23, 2020 Eatin Oral hygiene: 4 Toileting hygiene: 3 Shower/bathe self: 3 Upper body dressin Lower body dressin Putting on/taking off footwear: 3 OT Basic Acoustic Analyst Goals Basic Acoustic Analyst Goals Time Frame: Apr 30, 2020 Eating (QC): 6 Oral Hygiene (QC): 5 Toileting Hygiene (QC): 4 Shower/Bathe Self (QC): 3 Upper Body Dressing (QC): 5 Lower Body Dressing (QC): 4 On/Off Footwear (QC): 5 Additional Goals: 1-Demonstrate ADL Tasks, 2-Verbalize Understanding, 3-Impro veStrength/Katlyn 1=Demonstrate adherence to instructed precautions during ADL tasks. 2=Patient will verbalize/demonstrate understanding of assistive devices/modifications for ADL. 3=Patient will improve strength/tolerance for activity to enable patient to perform ADL's. OT Education/Plan Problem List/Assessment Assessment: Decreased Activ Tolerance, Impaired I ADL's Discharge Recommendations Plan/Recommendations: Continue POC Therapy Discharge Recommendati: Home & Family Treatment Plan/Plan of Care Treatment,Training & Education: Yes Patient would benefit from OT for education, treatment and training to promote independence in ADL's, mobility, safety and/or upper extremity function for ADL's. Plan of Care: ADL Retraining, Functional Mobility, Group Exercise/Act as Ind, UE Funct Exercise/Act Treatment Duration: Apr 30, 2020 Frequency: At least 5 of 7 days/Wk (IRF) Estimated Hrs Per Day: Other (Waiver(60 minutes per day until pt. can increase activity level.)) Agreement: Yes Rehab Potential: Fair Time/GCodes Start Time: 08:10 Stop Time: 08:30 Total Time Billed (hr/min): 20 Billed Treatment Time 1, ADL TELLY MACK OT April 17, 2020 08:44
[2020-04-17] MEDS: polyethylene glycoL POWDER 17 GM (MIRALAX) PACK PO SCH ×2 (09:00→20:20)
[2020-04-17] MEDS: DOCUSATE SODIUM 100 MG (COLACE) CAP PO SCH ×2 (09:00→20:20)
[2020-04-17] MEDS: SENNA W/DOCUSATE (SENOKOT S) TABLET PO SCH ×2 (09:00→20:20)
--- NOTE | 2020-04-17 11:06 | Physical Therapy Daily Note ---
PT Daily Note-Current Subjective States that he is doing okay and that he is ready to get home. Transfers SCALE: Activities may be completed with or without assistive devices. 6-Xqdjtvhtoz-kspgpyp completes the activity by him/herself with no assistance from a helper. 5-Set-up or Clean-up Assistance-helper sets up or cleans up; patient completes activity. [place] assists only prior to or following the activity. 4-Supervision or Touching Assistance-helper provides verbal cues and/or touching/steadying and/or contact guard assistance as patient completes activity. Assistance may be provided throughout the activity or intermittently. 3-Partial/Moderate Assistance-helper does LESS THAN HALF the effort. [place] lifts, holds or supports trunk or limbs, but provides less than half the effort. 2-Substantial/Maximal Assistance-helper does MORE THAN HALF the effort. [place] lifts or holds trunk or limbs and provides more than half the effort. 6-Lqsqrkfsa-szpxpa does ALL the effort. Patient does none of the effort to complete the activity. Or, the assistance of 2 or more helpers is required for the patient to complete the activity. If activity was not attempted, code reason: 7-Patient Refused. 9-Not Applicable-not attempted and the patient did not perform the activity before the current illness, exacerbation or injury. 10-Not Attempted due to Environmental Limitations-(lack of equipment, weather restraints, etc.). 88-Not Attempted due to Medical Conditions or Safety Concerns. Roll Left & Right (QC): 6 Sit to Lying (QC): 6 Lying to Sitting/Side of Bed(Q: 6 Sit to Stand (QC): 6 Chair/Msi-pa-Idysz Xfer(QC): 6 Toilet Transfer (QC): 6 Car Transfer (QC): 2 Weight Bearing Right Lower Extremity: Right Weight Bearing/Tolerated Left Lower Extremity: Left Weight Bearing/Tolerated hx of rbka Gait Training Does the Patient Walk?: Yes Distance: 70' Walk 10 feet (QC): 6 Walk 50 ft with 2 Turns(QC): 88 Walk 150 ft (QC): 88 Walking 10ft/uneven surface-QC: 88 Gait Persons Needed: 2 Gait Assistive Device: FWW 2 people needed for wheelchair follow Wheelchair Training Does the Pt Use a Wheelchair?: Yes Wheel 50 ft with 2 turns (QC): 6 Wheel 150 ft (QC): 6 Type of Wheelchair: Manual Stair Training Stair Training: Handrails/: 2 handrails #of Steps: 4 1 Step (curb) (QC): 2 4 Steps (QC): 2 12 Steps (QC): 88 Stairs: Pattern: Step to Balance Picking up an Object (QC): 88 Exercises Seated Therapy Exercises: LE Protocol Seated Reps: 20 Standing: Sit to Stand Standing Reps: 5 Treatments Co-treat with OT from 1000 - 1100 for safety with gait and transfers. Assessment Current Status: Excellent Progress The patient did well with all activities and should do well at home. PT Short Term Goals Short Term Goals Time Frame: April 16, 2020 Roll Left & Right: 6 Sit to lyin Lying to sitting on side of be: 4 Sit to stand: 3 Chair/qgk-gy-kwtmy transfer: 3 Walk 10 feet: 3 PT Distribution Specialist Goals Distribution Specialist Goals PT Mcc Goals Time Frame: Apr 30, 2020 Roll Left & Right (QC): 6 Sit to Lying (QC): 6 Lying-Sitting on Side/Bed(QC): 6 Sit to Stand (QC): 4 (SBA) Chair/Pjs-qd-Ciwsf Xfer(QC): 4 (SBA) Toilet Transfer (QC): 4 Car Transfer (QC): 3 Does the Patient Walk: No and Walking Goal IS indicated Walk 10 feet (QC): 4 Walk 50ft with 2 Turns (QC): 4 Walk 150 ft (QC): 88 Walking 10ft on Uneven Surface: 88 1 Step (curb) (QC): 88 4 Steps (QC): 88 12 Steps (QC): 88 Picking up an Object (QC): 88 Wheel 50 feet with 2 turns (QC: 6 Wheel 150 feet: 6 The patient met all transfer goals except car transfer. The patient met all walking goals except 50 feet with 2 turns. The patient also met all wheelchair goals. PT Plan Treatment/Plan Treatment Plan: Continue Plan of Care Treatment Plan: Bed Mobility, Education, Functional Activity Katlyn, Functional Strength, Group Therapy, Gait, Safety, Therapeutic Exercise, Transfers Treatment Duration: Apr 30, 2020 Frequency: modified program 60 min/day, advance as patient is able Estimated Hrs Per Day: 1 hour per day Patient and/or Family Agrees t: Yes Time/GCodes Time In: 0930 Time Out: 1100 Total Billed Treatment Time: 90 Total Billed Treatment 1, EX x 30, GT x 30, FA x 30 (co-treat with OT from 1000 - 1100) TENNILLE PETERS PT April 17, 2020 11:06
--- NOTE | 2020-04-17 11:19 | Occupational Ther Daily Note ---
OT Current Status-Daily Note Subjective No pain reported. Appearance Pt. on toilet. Requests assist. Mental Status/Objective Patient Orientation: Person, Place ADL-Treatment Therapy Code Descriptions/Definitions Functional [place] Measure: 0=Not Assessed/NA 4=Minimal Assistance 1=Total Assistance 5=Supervision or Setup 2=Maximal Assistance 6=Modified [place] 3=Moderate Assistance 7=Complete IndependenceSCALE: Activities may be completed with or without assistive devices. 2-Zicafrnqkr-cspoqqe completes the activity by him/herself with no assistance fr om a helper. 5-Set-up or Clean-up Assistance-helper sets up or cleans up; patient completes activity. [place] assists only prior to or following the activity. 4-Supervision or Touching Assistance-helper provides verbal cues and/or touching/steadying and/or contact guard assistance as patient completes activity. Assistance may be provided throughout the activity or intermittently. 3-Partial/Moderate Assistance-helper does LESS THAN HALF the effort. [place] lifts, holds or supports trunk or limbs, but provides less than half the effort. 2-Substantial/Maximal Assistance-helper does MORE THAN HALF the effort. [place] lifts or holds trunk or limbs and provides more than half the effort. 4-Mxowecjbe-okkyjd does ALL the effort. Patient does none of the effort to complete the activity. Or, the assistance of 2 or more helpers is required for the patient to complete the activity. If activity was not attempted, code reason: 7-Patient Refused. 9-Not Applicable-not attempted and the patient did not perform the activity before the current illness, exacerbation or injury. 10-Not Attempted due to Environmental Limitations-(lack of equipment, weather restraints, etc.). 88-Not Attempted due to Medical Conditions or Safety Concerns. Toileting Hygiene (QC): 2 Toilet Transfer (QC): 6 Pt. on toilet when OT entered room. Pt. had transferred self independently. Pt. has had BM and requires assist for cleansing. Pt. stands using grab bars and allows OT to cleanse rear sharon area. After this, pt. transfers self to wheelchair. Pt. is able to propel back into room area and all needs are met. Education OT Patient Education: Correct positioning, Modified ADL techniques, Progress toward Goal/Update tx plan, Purpose of tx/functional activities, Reviewed precautions, Rehab process, Transfer techniques Teaching Recipient: Patient Teaching Methods: Demonstration, Discussion Response to Teaching: Verbalize Understanding, Return Demonstration OT Short Term Goals Short Term Goals Time Frame: April 23, 2020 Eatin Oral hygiene: 4 Toileting hygiene: 3 Shower/bathe self: 3 Upper body dressin Lower body dressin Putting on/taking off footwear: 3 OT Caramel Cutter Hand Goals Caramel Cutter Hand Goals Time Frame: Apr 30, 2020 Eating (QC): 6 Oral Hygiene (QC): 5 Toileting Hygiene (QC): 4 Shower/Bathe Self (QC): 3 Upper Body Dressing (QC): 5 Lower Body Dressing (QC): 4 On/Off Footwear (QC): 5 Additional Goals: 1-Demonstrate ADL Tasks, 2-Verbalize Understanding, 3- ImproveStrength/Katlyn 1=Demonstrate adherence to instructed precautions during ADL tasks. 2=Patient will verbalize/demonstrate understanding of assistive devices/sujit fications for ADL. 3=Patient will improve strength/tolerance for activity to enable patient to perform ADL's. OT Education/Plan Problem List/Assessment Assessment: Decreased Activ Tolerance, Impaired I ADL's, Impaired Self-Care Skills Discharge Recommendations Plan/Recommendations: Continue POC Therapy Discharge Recommendati: Home & Family Treatment Plan/Plan of Care Treatment,Training & Education: Yes Patient would benefit from OT for education, treatment and training to promote independence in ADL's, mobility, safety and/or upper extremity function for ADL's. Plan of Care: ADL Retraining, Functional Mobility, Group Exercise/Act as Ind, UE Funct Exercise/Act Treatment Duration: Apr 30, 2020 Frequency: At least 5 of 7 days/Wk (IRF) Estimated Hrs Per Day: Other (Waiver(60 minutes per day until pt. can increase activity level.)) Agreement: Yes Rehab Potential: Fair Time/GCodes Start Time: 08:50 Stop Time: 09:00 Total Time Billed (hr/min): 10 Billed Treatment Time 1, ADL x 10minutes TELLY MACK OT April 17, 2020 11:19
--- NOTE | 2020-04-17 11:42 | Occupational Ther Daily Note ---
OT Current Status-Daily Note Subjective No pain reported. Appearance Pt. up in chair. Agrees to work with therapy. Mental Status/Objective Patient Orientation: Person, Place, Time, Situation ADL-Treatment Therapy Code Descriptions/Definitions Functional [place] Measure: 0=Not Assessed/NA 4=Minimal Assistance 1=Total Assistance 5=Supervision or Setup 2=Maximal Assistance 6=Modified [place] 3=Moderate Assistance 7=Complete IndependenceSCALE: Activities may be completed with or without assistive devices. 9-Addgfekjzd-noyvows completes the activity by him/herself with no assistance from a helper. 5-Set-up or Clean-up Assistance-helper sets up or cleans up; patient completes activity. [place] assists only prior to or following the activity. 4-Supervision or Touching Assistance-helper provides verbal cues and/or touching/steadying and/or contact guard assistance as patient completes activity. Assistance may be provided throughout the activity or intermittently. 3-Partial/Moderate Assistance-helper does LESS THAN HALF the effort. [place] lifts, holds or supports trunk or limbs, but provides less than half the effort. 2-Substantial/Maximal Assistance-helper does MORE THAN HALF the effort. [place] lifts or holds trunk or limbs and provides more than half the effort. 0-Dcjwqhpay-tyzgws does ALL the effort. Patient does none of the effort to complete the activity. Or, the assistance of 2 or more helpers is required for the patient to complete the activity. If activity was not attempted, code reason: 7-Patient Refused. 9-Not Applicable-not attempted and the patient did not perform the activity before the current illness, exacerbation or injury. 10-Not Attempted due to Environmental Limitations-(lack of equipment, weather restraints, etc.). 88-Not Attempted due to Medical Conditions or Safety Concerns. Eating (QC): 6 Oral Hygiene (QC): 6 (Pt. already completed per him.) Shower/Bathe Self (QC): 5 (Per pt., he has already cleaned self up at sink level from wheelchair with washcloth. Declines showering or having OT assist with any other ADLs.) Upper Body Dressing (QC): 5 Lower Body Dressing (QC): 3 (Pt. has already donned shorts, but requires assistance at times to position them on waste in stance due to them being too big.) On/Off Footwear: 6 Other Treatment OT/PT completed co-treatment due to fatigue and need of two skilled therapists. OT encouraged and initiated ADL skills while PT focused on ambulation and mobility. Pt. is adamant that he does not want to shower. Pt. self propels to therapy gym. Completes stair exercises with min assist x 2 for positioning. Please see PT note. Ambulated with walker approximately 75 feet with CGA and walker. Pt. required assistance for wheelchair follow. Pt. fatigued easily and had to sit quickly. Pt. practiced car transfer as well with assist of two. Increased time needed and multiple rest breaks throughout. Pt. completed 9 minutes on arm bike at mod resistance, and states, "thats all I can do." Self propels back to room and is able to use urinal from wheelchair level. All needs met. Education OT Patient Education: Correct positioning, Exercise program, Modified ADL techniques, Progress toward Goal/Update tx plan, Purpose of tx/functional activities, Reviewed precautions, Rehab process, Transfer techniques Teaching Recipient: Patient Teaching Methods: Demonstration, Discussion Response to Teaching: Verbalize Understanding, Return Demonstration OT Short Term Goals Short Term Goals Time Frame: April 23, 2020 Eatin Oral hygiene: 4 Toileting hygiene: 3 Shower/bathe self: 3 Upper body dressin Lower body dressin Putting on/taking off footwear: 3 OT Half-Way Goals Half-Way Goals Time Frame: Apr 30, 2020 Eating (QC): 6 Oral Hygiene (QC): 5 Toileting Hygiene (QC): 4 Shower/Bathe Self (QC): 3 Upper Body Dressing (QC): 5 Lower Body Dressing (QC): 4 On/Off Footwear (QC): 5 Additional Goals: 1-Demonstrate ADL Tasks, 2-Verbalize Understanding, 3-ImproveStrength/Katlyn 1=Demonstrate adherence to instructed precautions during ADL tasks. 2=Patient will verbalize/demonstrate understanding of assistive devices/modifications for ADL. 3=Patient will improve strength/tolerance for activity to enable patient to perf orm ADL's. OT Education/Plan Problem List/Assessment Assessment: Decreased Activ Tolerance, Impaired I ADL's, Impaired Self-Care Skills Discharge Recommendations Plan/Recommendations: Continue POC Therapy Discharge Recommendati: Home & Family Treatment Plan/Plan of Care Treatment,Training & Education: Yes Patient would benefit from OT for education, treatment and training to promote independence in ADL's, mobility, safety and/or upper extremity function for ADL's. Plan of Care: ADL Retraining, Functional Mobility, Group Exercise/Act as Ind, UE Funct Exercise/Act Treatment Duration: Apr 30, 2020 Frequency: At least 5 of 7 days/Wk (IRF) Estimated Hrs Per Day: Other (Waiver(60 minutes per day until pt. can increase activity level.)) Agreement: Yes Rehab Potential: Fair Time/GCodes Start Time: 10:00 Stop Time: 11:00 Total Time Billed (hr/min): 60 Billed Treatment Time 1, FA x 45minutes, Ex x 15minutes Co-treatment with PT. Please see above note for designated roles. TELLY MACK OT April 17, 2020 11:42
--- NOTE | 2020-04-17 12:55 | NUR ---
"RD ASSESSMENT PMHx: COPD; CAD; HTN; hypercholesterolemia; amputation (R BKA); DM; chronic constipation PT INTERACTION: Pt was awake and pleasant during nutrition follow-up. Pt states he has been eating well since last assessment. Note avg PO intake 85% x4d, per chart review. Pt states no issues with nausea, vomiting, or constipation since last assessment, but states some issues with diarrhea. Note last BM was 04/17 and pt currently on bowel regimen of colace BID; senna BID; and miralax BID, per chart review. ABNORMAL NUTRITION-RELATED LAB VALUES LOW: Cl 96; Pro 6.2; alb 3.0 HIGH: cr 1.69; glu 126 Est. kcal needs: 7163-1242 kcal | 15-20 kcal/kg Est. Pro needs: 74-93 g Pro | 0.8-1.0 g Pro/kg PES STATEMENT: Given PO intake, no nutrition diagnosis at this time (NO-1.1) INTERVENTION: Continue with current diet order of CHO 60g/m 1snack diet. Will continue to follow and reassess as pt needs, intake, and status change. MONITOR/EVALUATE: PO Intake; Plan of Care; Hydration Status; Weight Status; Lab Values Juliann Booth, MS, RD, LD"
--- NOTE | 2020-04-17 16:41 | NUR ---
CM/SS WEEKLY PATIENT CARE CONFERENCE Reviewed Summary with patient and with his spouse Faby Keene by phone. Both are in agreement to his return home tomorrow, , April 18, 2020. Anticipate a late morning departure, will confirm with Faby in a.m. [facility]: Both wish to resume services from [facility], RN to follow post op recovery, staple removal, wound care open area on coccyx. PT and OT eval and treat. Patient has all required DME at home, no new needs.
[2020-04-17] MEDS: ENOXAPARIN 40 MG/0.4 ML (LOVENOX) SYR SC SCH (17:39)
[2020-04-17 18:00] VITALS: BP 138/61
[2020-04-17] MEDS: ATENOLOL 25 MG (TENORMIN) TAB PO SCH (20:20)
[2020-04-17] MEDS: FLUoxetine HCL 20 MG (PROzac) CAP PO SCH (20:20)
[2020-04-17] MEDS: ALPRAZolam 0.25 MG (XANAX) TAB PO PRN (21:14)
[2020-04-17] MEDS: HYDROcodone/APAP 5 MG/325 MG (LORTAB) TAB PO PRN (21:14)
[2020-04-18] MEDS: HYDROcodone/APAP 5 MG/325 MG (LORTAB) TAB PO PRN (01:35)
[2020-04-18] MEDS: MELATONIN 3 MG TABLET PO PRN (01:35)
[2020-04-18 05:01] VITALS: BP 122/53
[2020-04-18] MEDS: inSUlin ASPART (NovoLOG) 1 UNIT/0.01 ML (CHARGE PER UNIT) SC SCH (05:15)
[2020-04-18] MEDS: KCL 20 MEQ TAB (K-DUR) PO SCH (05:49)
[2020-04-18] MEDS: CATHETER FLUSH 10 ML SYR IV SCH (05:49)
[2020-04-18] MEDS ORDERED: GLIP5TAB13 PO (06:02)
[2020-04-18] MEDS ORDERED: PANT40TA3 PO (06:02)
[2020-04-18] MEDS ORDERED: ASPI-983 PO (06:02)
[2020-04-18] MEDS ORDERED: HYDR-83 PO (06:02)
[2020-04-18] MEDS ORDERED: FURO-124 PO (06:02)
--- NOTE | 2020-04-18 06:05 | D/C HH Face to Face Order ---
D/C Face to Face Orders Reconcile Patient Problems Problems Reviewed?: Yes Instructions for Patient Via [employer], Patient Instructions/FollowUp: [facility] 1 week Physician to follow Patient: [facility] Discharge Diet for Home: ADA Diet Patient Problems: s/p colon resection Volume overload DM Debility Goals for Patient: [place] Patient Data-Allergies,Ht & Wt Patient Allergies: Coded Allergies: No Known Drug Allergies (Verified , 10/15/09) Height (Feet): 5 Height (Inches): 9.00 Weight (Pounds): 226 Weight (Ounces): 9.6 Home Health Need/Face to Face Date of Face to Face: April 18, 2020 Clinical Findings: Generalized weakness and fatigue, Instability, Muscle weakness, Shortness of breath, Unsteady gait I have seen Pt zqjz-uf-ncex: Yes Discharged To: Home Diagnosis/Conditions: s/p colon resection Volume overload DM Debility Patient is Homebound due to: Kevin fall risk due to instabilty, Muscle weakness Homebound Status Due to the above stated illness, injury or surgical procedure (medical condition or diagnosis) and associated clinical findings, the patient is homebound because of his/her inability to leave home except with aid of a supportive device and/or person AND leaving the home requires a considerable and taxing effort or is medically contraindicated. Pt req the following assistanc: Walker, Wheelchair Home Health Nursing Orders Home Health Services Order: Nursing Services (coccyx care, staple removal), Rn Digestive-Evaluate & Treat, Physical Therapy-Evaluate & Treat Home Health Infusion Therapy Line Start Date: April 09, 2020 Certify Stmt I certify that this patient is under my care and that I, a nurse practitioner or a physician; a prosthetics assistant working with me, had a face to face encounter that - meets the physician face to face encounter requirements with this patient as dated. AGATHA PAZ DO April 18, 2020 06:05
--- NOTE | 2020-04-18 06:05 | Discharge Summary ---
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 Ischemic heart disease PVD severe Right BKA Smoker CARRIE COPD Urinary retention Reyes in s/p cystoscopy Wednesday Dr Sal DM OOC Volume overload consulted Cardiology with improved status Plan: Pain meds IRF protocol PVR Dr Sal appreciated Insulin Diuresis (1) Critical illness myopathy (2) Abdominal pain Status: Acute (3) Hypoxia Status: Acute (4) Anemia Status: Chronic (5) Diabetes mellitus Status: Chronic (6) COPD (chronic obstructive pulmonary disease) Status: Chronic (7) Chronic respiratory failure with hypoxia (8) Cardiac pacemaker Status: Chronic (9) Coronary artery disease Status: Chronic (10) DVT prophylaxis Status: Acute (11) S/P partial resection of colon Status: Acute (12) 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 (13) Smoker Status: Chronic Discharge Summary Discharge Physical Examination Allergies: Coded Allergies: No Known Drug Allergies (Verified , 10/15/09) Vitals & I&Os Vital Signs Date Time Temp Pulse Resp B/P (MAP) Pulse Ox O2 Delivery O2 Flow Rate FiO2 04/18/20 11:50 36.5 73 16 122/53 97 Room Air 3.00 General Appearance: Alert, Oriented X3, Cooperative Respiratory: Clear to Auscultation Cardiovascular: Regular Rate Psych/Mental Status: Mental Status NL Hospital Course Was the Problem List Reviewed?: Yes Hospital course: Pt had an uneventful hospital course for nine days he was i npatient rehab, he was able to participate in all therapy, aggressive IV diuresis ordered by cardiology helped him tremendously. Maintained on oxygen temporarily, bowel function returned back to normal, he was able to discontinue the reyes catheter after he had failed a couple of times along with Dr. Sal consultation. Overall labs remain stable, creatinine baseline 1.5-1.6, had no significant new issues in inpatient rehab and he was discharged on home health. Labs (last 24 hrs) Laboratory Tests 04/09/20 17:04: Glucometer 426*H 04/09/20 20:03: Glucometer 323H 04/10/20 05:12: Glucometer 80 04/10/20 05:40: White Blood Count 8.7, Red Blood Count 3.13L, Hemoglobin 9.3L, Hematocrit 29L, Mean Corpuscular Volume 92, Mean Corpuscular Hemoglobin 30, Mean Corpuscular Hemoglobin Concent 32, Red Cell Distribution Width 14.6H, Platelet Count 266, Mean Platelet Volume 9.4, Neutrophils (%) (Auto) 80H, Lymphocytes (%) (Auto) 8L, Monocytes (%) (Auto) 7, Eosinophils (%) (Auto) 4, Basophils (%) (Auto) 0, Neutrophils # (Auto) 7.0, Lymphocytes # (Auto) 0.7L, Monocytes # (Auto) 0.6, Eosinophils # (Auto) 0.4H, Basophils # (Auto) 0.0, Sodium Level 139, Potassium Level 3.6, Chloride Level 107, Carbon Dioxide Level 23, Anion Gap 9, Blood Urea Nitrogen 14, Creatinine 1.32H, Estimat Glomerular Filtration Rate 52, BUN/Creatinine Ratio 11, Glucose Level 79, Calcium Level 7.8L, Corrected Calcium 9.0, Total Bilirubin 0.6, Aspartate Amino Transf (AST/SGOT) 17, Alanine Aminotransferase (ALT/SGPT) 11, Alkaline Phosphatase 99, Total Protein 5.0L, Albumin 2.5L 04/10/20 10:59: Glucometer 158H 04/10/20 15:34: Glucometer 217H 04/10/20 20:12: Glucometer 206H 04/11/20 05:39: Glucometer 139H 04/11/20 10:43: Glucometer 137H 04/11/20 15:20: Glucometer 206H 04/11/20 20:22: Glucometer 209H 04/12/20 05:19: Glucometer 100 04/12/20 06:00: White Blood Count 6.3, Red Blood Count 2.97L, Hemoglobin 8.9L, Hematocrit 28L, Mean Corpuscular Volume 94, Mean Corpuscular Hemoglobin 30, Mean Corpuscular Hemoglobin Concent 32, Red Cell Distribution Width 14.6H, Platelet Count 272, Mean Platelet Volume 9.8, Sodium Level 141, Potassium Level 3.8, Chloride Level 103, Carbon Dioxide Level 29, Anion Gap 9, Blood Urea Nitrogen 12, Creatinine 1.40H, Estimat Glomerular Filtration Rate 48, BUN/Creatinine Ratio 9, Glucose Level 97, Calcium Level 7.9L, Corrected Calcium 9.1, Magnesium Level 1.6, Total Bilirubin 0.5, Aspartate Amino Transf (AST/SGOT) 14, Alanine Aminotransferase (ALT/SGPT) 12, Alkaline Phosphatase 87, Total Protein 5.0L, Albumin 2.5L, Triglycerides Level 91, Cholesterol Level 148, LDL Cholesterol Direct 110, VLDL Cholesterol 18, HDL Cholesterol 26L, Thyroid Stimulating Hormone (TSH) 0.56 04/12/20 11:17: Glucometer 179H 04/12/20 15:35: Glucometer 325H 04/12/20 21:55: Glucometer 181H 04/13/20 05:17: Glucometer 118H 04/13/20 10:55: Glucometer 207H 04/13/20 15:39: Glucometer 154H 04/13/20 20:34: Glucometer 250H 04/14/20 05:49: Glucometer 123H 04/14/20 10:46: Glucometer 242H 04/14/20 15:29: Glucometer 236H 04/14/20 20:15: Glucometer 221H 04/15/20 05:20: White Blood Count 4.7, Red Blood Count 3.23L, Hemoglobin 9.5L, Hematocrit 30L, Mean Corpuscular Volume 93, Mean Corpuscular Hemoglobin 29, Mean Corpuscular Hemoglobin Concent 32, Red Cell Distribution Width 14.2, Platelet Count 335, Mean Platelet Volume 9.4, Neutrophils (%) (Auto) 54, Lymphocytes (%) (Auto) 28, Monocytes (%) (Auto) 9, Eosinophils (%) (Auto) 7, Basophils (%) (Auto) 1, Neutrophils # (Auto) 2.6, Lymphocytes # (Auto) 1.3, Monocytes # (Auto) 0.4, Eosinophils # (Auto) 0.4H, Basophils # (Auto) 0.1, Sodium Level 139, Potassium Level 4.2, Chloride Level 96L, Carbon Dioxide Level 34H, Anion Gap 9, Blood Urea Nitrogen 16, Creatinine 1.69H, Estimat Glomerular Filtration Rate 39, BUN/Creatinine Ratio 9, Glucose Level 126H, Calcium Level 8.8, Corrected Calcium 9.6, Total Bilirubin 0.5, Aspartate Amino Transf (AST/SGOT) 23, Alanine Aminotransferase (ALT/SGPT) 17, Alkaline Phosphatase 98, Total Protein 6.2L, Albumin 3.0L 04/15/20 10:57: Glucometer 305H 04/15/20 15:34: Glucometer 101 04/15/20 20:12: Glucometer 355H 04/16/20 06:57: Glucometer 143H 04/16/20 11:00: Glucometer 53*L 04/16/20 11:40: Glucometer 113H 04/16/20 16:36: Glucometer 255H 04/16/20 20:47: Glucometer 272H 04/17/20 05:51: Glucometer 98 04/17/20 12:12: Glucometer 250H 04/17/20 16:44: Glucometer 291H 04/17/20 20:13: Glucometer 349H 04/18/20 05:12: Glucometer 113H Pending Labs Laboratory Tests 04/09/20 17:04: Glucometer 426 04/09/20 20:03: Glucometer 323 04/10/20 05:12: Glucometer 80 04/10/20 05:40: White Blood Count 8.7, Red Blood Count 3.13, Hemoglobin 9.3, Hematocrit 29, Mean Corpuscular Volume 92, Mean Corpuscular Hemoglobin 30, Mean Corpuscular Hemoglobin Concent 32, Red Cell Distribution Width 14.6, Platelet Count 266, Mean Platelet Volume 9.4, Neutrophils (%) (Auto) 80, Lymphocytes (%) (Auto) 8, Monocytes (%) (Auto) 7, Eosinophils (%) (Auto) 4, Basophils (%) (Auto) 0, Neutrophils # (Auto) 7.0, Lymphocytes # (Auto) 0.7, Monocytes # (Auto) 0.6, Eosinophils # (Auto) 0.4, Basophils # (Auto) 0.0, Sodium Level 139, Potassium Level 3.6, Chloride Level 107, Carbon Dioxide Level 23, Anion Gap 9, Blood Urea Nitrogen 14, Creatinine 1.32, Estimat Glomerular Filtration Rate 52, BUN/Creatinine Ratio 11, Glucose Level 79, Calcium Level 7.8, Corrected Calcium 9.0, Total Bilirubin 0.6, Aspartate Amino Transf (AST/SGOT) 17, Alanine Aminotransferase (ALT/SGPT) 11, Alkaline Phosphatase 99, Total Protein 5.0, Albumin 2.5 04/10/20 10:59: Glucometer 158 04/10/20 15:34: Glucometer 217 04/10/20 20:12: Glucometer 206 04/11/20 05:39: Glucometer 139 04/11/20 10:43: Glucometer 137 04/11/20 15:20: Glucometer 206 04/11/20 20:22: Glucometer 209 04/12/20 05:19: Glucometer 100 04/12/20 06:00: White Blood Count 6.3, Red Blood Count 2.97, Hemoglobin 8.9, Hematocrit 28, Mean Corpuscular Volume 94, Mean Corpuscular Hemoglobin 30, Mean Corpuscular Hemoglob in Concent 32, Red Cell Distribution Width 14.6, Platelet Count 272, Mean Platelet Volume 9.8, Sodium Level 141, Potassium Level 3.8, Chloride Level 103, Carbon Dioxide Level 29, Anion Gap 9, Blood Urea Nitrogen 12, Creatinine 1.40, Estimat Glomerular Filtration Rate 48, BUN/Creatinine Ratio 9, Glucose Level 97, Calcium Level 7.9, Corrected Calcium 9.1, Magnesium Level 1.6, Total Bilirubin 0.5, Aspartate Amino Transf (AST/SGOT) 14, Alanine Aminotransferase (ALT/SGPT) 12, Alkaline Phosphatase 87, Total Protein 5.0, Albumin 2.5, Triglycerides Level 91, Cholesterol Level 148, LDL Cholesterol Direct 110, VLDL Cholesterol 18, HDL Cholesterol 26, Thyroid Stimulating Hormone (TSH) 0.56 04/12/20 11:17: Glucometer 179 04/12/20 15:35: Glucometer 325 04/12/20 21:55: Glucometer 181 04/13/20 05:17: Glucometer 118 04/13/20 10:55: Glucometer 207 04/13/20 15:39: Glucometer 154 04/13/20 20:34: Glucometer 250 04/14/20 05:49: Glucometer 123 04/14/20 10:46: Glucometer 242 04/14/20 15:29: Glucometer 236 04/14/20 20:15: Glucometer 221 04/15/20 05:20: White Blood Count 4.7, Red Blood Count 3.23, Hemoglobin 9.5, Hematocrit 30, Mean Corpuscular Volume 93, Mean Corpuscular Hemoglobin 29, Mean Corpuscular Hemoglobin Concent 32, Red Cell Distribution Width 14.2, Platelet Count 335, Mean Platelet Volume 9.4, Neutrophils (%) (Auto) 54, Lymphocytes (%) (Auto) 28, Monocytes (%) (Auto) 9, Eosinophils (%) (Auto) 7, Basophils (%) (Auto) 1, Neutrophils # (Auto) 2.6, Lymphocytes # (Auto) 1.3, Monocytes # (Auto) 0.4, Eosinophils # (Auto) 0.4, Basophils # (Auto) 0.1, Sodium Level 139, Potassium Level 4.2, Chloride Level 96, Carbon Dioxide Level 34, Anion Gap 9, Blood Urea Nitrogen 16, Creatinine 1.69, Estimat Glomerular Filtration Rate 39, BUN/Creatinine Ratio 9, Glucose Level 126, Calcium Level 8.8, Corrected Calcium 9.6, Total Bilirubin 0.5, Aspartate Amino Transf (AST/SGOT) 23, Alanine Aminotransferase (ALT/SGPT) 17, Alkaline Phosphatase 98, Total Protein 6.2, Albumin 3.0 04/15/20 10:57: Glucometer 305 04/15/20 15:34: Glucometer 101 04/15/20 20:12: Glucometer 355 04/16/20 06:57: Glucometer 143 04/16/20 11:00: Glucometer 53 04/16/20 11:40: Glucometer 113 04/16/20 16:36: Glucometer 255 04/16/20 20:47: Glucometer 272 04/17/20 05:51: Glucometer 98 04/17/20 12:12: Glucometer 250 04/17/20 16:44: Glucometer 291 04/17/20 20:13: Glucometer 349 04/18/20 05:12: Glucometer 113 Discharge Home Medications: Active Scripts Active Glipizide 5 Mg Tablet 2.5 Mg PO DAILY Lasix (Furosemide) 40 Mg Tablet 40 Mg PO DAILY Pantoprazole Sodium 40 Mg Tablet.dr 40 Mg PO BID Hydrocodone-Acetamin 5-325 mg (Hydrocodone/Acetaminophen) 1 Each Tablet 1 Tab PO Q4H PRN Aspirin EC (Aspirin) 81 Mg Tablet.dr 81 Mg PO DAILY Reported Visine Dry Eye Relief Drop (Peg 400/Hypromellose/Glycerin) 15 Ml Drops 2 Drops OU PRN PRN Fluoxetine HCl 20 Mg Capsule 20 Mg PO HS Vitamin C (Ascorbic Acid) 500 Mg Capsule 500 Mg PO DAILY Calcium (Calcium Carbonate) 600 Mg Tablet 600 Mg PO DAILY Atenolol 25 Mg Tablet 25 Mg PO HS Finasteride 5 Mg Tablet 5 Mg PO D Flomax (Tamsulosin HCl) 0.4 Mg Cap 0.4 Mg PO HS Glipizide 10 Mg Tablet 10 Mg PO HS Gabapentin 300 Mg Capsule 300 Mg PO BID Centrum Silver Tablet (Multivit-Min/FA/Lycopene/Lut) 1 Each Tablet 1 Tab PO DAILY Instructions to patient/family Please see electronic discharge instructions given to patient. 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
[2020-04-18] MEDS: RT-ALBUTEROL/IPRATROPIUM 3 ML (DUONEB) VIAL INH SCH ×2 (07:10→11:09)
[2020-04-18] MEDS: FUROSEMIDE 40 MG/4 ML INJ (LASIX) IVP SCH (08:33)
[2020-04-18] MEDS: ASPIRIN E.C. 81 MG (ECOTRIN) TAB PO SCH (08:34)
[2020-04-18] MEDS: GABAPENTIN 300 MG (NEURONTIN) CAP PO SCH (08:34)
[2020-04-18] MEDS: TAMSULOSIN 0.4 MG (FLOMAX) CAP PO SCH (08:34)
[2020-04-18] MEDS: PANTOPRAZOLE 40 MG (PROTONIX) TAB PO SCH (08:34)
[2020-04-18] MEDS: FINASTERIDE (PROSCAR) 5 MG TAB PO SCH (08:44)
--- NOTE | 2020-04-18 09:43 | Progress Note - Cardiology ---
Cardiology SOAP Progress Note Subjective: No cp or palp or swelling or shortness of breath Going home today No n/v/d Weakness has improved States will f/u with his poultry eviscerator Objective: I&O/Vital Signs 04/18/20 04/18/20 05:01 07:10 Temp 36.5 Pulse 73 Resp 16 B/P (MAP) 122/53 (76) Pulse Ox 93 94 O2 Delivery Nasal Cannula Room Air 04/18/20 00:00 Intake Total 950 ml Output Total 1800 ml Balance -850 ml Weight (Pounds): 226 Weight (Ounces): 9.6 Weight (Calculated Kilograms): 102.836813 Constitutional: AAO x 3, well-developed, well-nourished Respiratory: No accessory muscle use, No respiratory distress; other (diminished lower lobes with prolonged exp phase) Cardiovascular: regular rate-rhythm; No JVD; S1 and S2, systolic murmur Gastrointestional: No tender; soft, round, other (abd incisions x [address], edges approx, no evidence of redness or drainage) Extremities: No swelling Neurologic/Psychiatric: grossly intact (moves extremities) Skin: No rash on exposed areas, No ulcerations on exposed areas Results/Procedures: Labs Laboratory Tests 04/17/20 12:12: Glucometer 250H 04/17/20 16:44: Glucometer 291H 04/17/20 20:13: Glucometer 349H 04/18/20 05:12: Glucometer 113H A/P: Assessment: Ac systolic and diastolic CHF, clinically improved CKD 3, 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 Parada his primary poultry eviscerator H/O R BKA - per pt it was done at the time of CABG - details unknown Open colon resection on 04-03-[address] Henderson d/t ischemic colon DM 2 HTN HLD Macular degeneration H/O tobaccoism - states he has not smoked in years Prob COPD BPH with urinary retention and hematuria - managed per Dr. Sal Plan: * I discussed his CV issues with him * Outpt f/u is very important. He understands that and states he will up with his poultry eviscerator Dr Parada in [place] JOSIAH PETERSON MD FACP FAC CCDS April 18, 2020 09:43
[2020-04-18] MEDS: DOCUSATE SODIUM 100 MG (COLACE) CAP PO SCH (09:50)
[2020-04-18] MEDS: polyethylene glycoL POWDER 17 GM (MIRALAX) PACK PO SCH (09:50)
[2020-04-18] MEDS: SENNA W/DOCUSATE (SENOKOT S) TABLET PO SCH (09:50)
--- NOTE | 2020-04-18 09:50 | NUR ---
CM/SS DISCHARGE HHC: Finalized with [facility] per patient/spouse request. Patient is coordinating his ride home by way of a friend because his is working. Unit RN aware that once all paperwork completed, he will call his ride to come. IMM2 presented, discussed, signed, charted. Patient states his readiness to go home, no intention to appeal voiced.
--- NOTE | 2020-04-18 10:08 | Therapy Team Discharge Summary ---
Therapy Discharge Summary Discharge Recommendations Date of Discharge Physical Therapy Patient came to rehab with terminal Ileitis and colitis. Upon evaluation patient performed bed mobility with min assist, supine <-> sit mod assist, sit <-> stand max assist, transfers max assist (sliding board), car transfer depe ndent, propelled a manual WC 150' with min assist. Patient has been performing bed mobility and transfer training, balance and endurance training, functional strengthening, gait training, and education. 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 Now, patient performs bed mobility and transfers with independence, car transfer max assist, ambulates 70' with a rolling walker with 2 person assist, propels a manual wheelchair with independence, and can go up and down 4 steps using 2 handrails with max assist. Patient is being discharged from this facility today and will be discharged from PT at this time. Occupational Therapy Decreased Activ Tolerance, Impaired I ADL's, Impaired Self-Care Skills PT Senior Living Goals Case Packer And Sealer Goals PT Senior Living Goals Time Frame: Apr 30, 2020 Roll Left to Right (QC): 6 Sit to Lying (QC): 6 Lying-Sitting on Side/Bed(QC): 6 Sit to Stand (QC): 4 (SBA) Chair/Twn-he-Sneih Xfer(QC): 4 (SBA) Car Transfer (QC): 3 Does the Patient Walk: No and Walking Goal IS indicated Walk 10 feet (QC): 4 Walk 10ft-Uneven Surface(QC): 88 Walk 50ft with 2 Turns (QC): 4 Walk 150 ft (QC): 88 Wheel 50 feet with 2 turns (QC: 6 1 Step (curb) (QC): 88 4 Steps (QC): 88 12 Steps (QC): 88 Picking up an Object (QC): 88 OT Senior Living Goals Case Packer And Sealer Goals Time Frame: Apr 30, 2020 Eating (QC): 6 Oral Hygiene (QC): 5 Shower/Bathe Self (QC): 3 Upper Body Dressing (QC): 5 Lower Body Dressing (QC): 4 On/Off Footwear (QC): 5 Toileting Hygiene (QC): 4 Toilet/Commode Transfer (QC): 4 Additional Goals: 1-Demonstrate ADL Tasks, 2-Verbalize Understanding, 3- ImproveStrength/Katlyn 1=Demonstrate adherence to instructed precautions during ADL tasks. 2=Patient will verbalize/demonstrate understanding of assistive devices/modifications for ADL. 3=Patient will improve strength/tolerance for activity to enable patient to perform ADL's. NICOLE ESCUDERO PT April 18, 2020 10:08
[2020-04-18 11:50] VITALS: BP 122/53
--- NOTE | 2020-04-18 14:54 | Therapy Team Discharge Summary ---
Therapy Discharge Summary Discharge Recommendations Date of Discharge April 18, 2020 at 11:55 Therapy D/C Recommendations: Home w/ Family Support Occupational Therapy Pt. seen by occupational therapy to increase overall strength and independence. Pt. required encouragement throughout treatment. Requested to bathe/dress on his own, and reported that he did so at sink level. At discharge, pt. able to transfer with CGA/SBA. Pt. independent with wheelchair mobility. Pt. is discharging home with family. Pt. has all needed equipment no further OT needs at this time. Decreased Activ Tolerance, Impaired I ADL's, Impaired Self-Care Skills PT Veneer Matcher Goals Fdc Goals PT Fdc Goals Time Frame: Apr 30, 2020 Roll Left to Right (QC): 6 Sit to Lying (QC): 6 Lying-Sitting on Side/Bed(QC): 6 Sit to Stand (QC): 4 (SBA) Chair/[id number]-Hzuhh Xfer(QC): 4 (SBA) Car Transfer (QC): 3 Does the Patient Walk: No and Walking Goal IS indicated Walk 10 feet (QC): 4 Walk 10ft-Uneven Surface(QC): 88 Walk 50ft with 2 Turns (QC): 4 Walk 150 ft (QC): 88 Wheel 50 feet with 2 turns (QC: 6 1 Step (curb) (QC): 88 4 Steps (QC): 88 12 Steps (QC): 88 Picking up an Object (QC): 88 OT Veneer Matcher Goals Veneer Matcher Goals Time Frame: Apr 30, 2020 Eating (QC): 6 (met) Oral Hygiene (QC): 5 (met) Shower/Bathe Self (QC): 3 (met per pt.) Upper Body Dressing (QC): 5 (met) Lower Body Dressing (QC): 4 (not met) On/Off Footwear (QC): 5 (not met) Toileting Hygiene (QC): 4 (not met) Toilet/Commode Transfer (QC): 4 (met) Additional Goals: 1-Demonstrate ADL Tasks, 2-Verbalize Understanding, 3-Impro veStrength/Katlyn 1=Demonstrate adherence to instructed precautions during ADL tasks. 2=Patient will verbalize/demonstrate understanding of assistive devices/modifications for ADL. 3=Patient will improve strength/tolerance for activity to enable patient to perform ADL's. TELLY MACK OT April 18, 2020 14:54
== END 2020-04-18 11:55 | disposition home health service (06) | DRG 91 ==
PROVIDERS: ADMIT Internal Medicine; ATTEND Internal Medicine
DX: G72.81 Critical illness myopathy (principal); Z48.815 Encounter for surgical aftercare following surgery on the digestive system; I50.41 Acute combined systolic (congestive) and diastolic (congestive) heart failure; E11.42 Type 2 diabetes mellitus with diabetic polyneuropathy; E11.51 Type 2 diabetes mellitus with diabetic peripheral angiopathy without gangrene; E11.65 Type 2 diabetes mellitus with hyperglycemia; N40.1 Benign prostatic hyperplasia with lower urinary tract symptoms; R33.9 Retention of urine, unspecified; R15.9 Full incontinence of feces; J44.9 Chronic obstructive pulmonary disease, unspecified; I11.0 Hypertensive heart disease with heart failure; L89.159 Pressure ulcer of sacral region, unspecified stage; R31.9 Hematuria, unspecified; I25.10 Atherosclerotic heart disease of native coronary artery without angina pectoris; K59.09 Other constipation; R60.1 Generalized edema; G47.33 Obstructive sleep apnea (adult) (pediatric); E78.5 Hyperlipidemia, unspecified; F32.9 Major depressive disorder, single episode, unspecified; H35.30 Unspecified macular degeneration; Z89.611 Acquired absence of right leg above knee; Z87.891 Personal history of nicotine dependence; Z95.1 Presence of aortocoronary bypass graft; Z95.0 Presence of cardiac pacemaker; Z79.84 Long term (current) use of oral hypoglycemic drugs
CPT/HCPCS: 36415; 76937; 80053; 80061; 82962; 83735; 84443; 85025; 85027; 93005; 93306; 94640; 94760

== ENCOUNTER 2020-11-02 11:03 | Inpatient (IN) | payer MEDICARE ==
[~2020-11-02] VITALS: Ht 175.3 cm; Wt 117.8 kg
[~2020-11-02 11:03] MED LIST changes: +AMLO-251 PO; -AMLO10TA7 PO; +ASCO100024 PO; -ASCO10006 PO; +ASPI-1238 PO; -ASPI-983 PO; -CALC-6 PO; +CALC1TAB84 PO; -CALC600T12 PO; +CLC600T PO; +FURO-124 PO; +GLIP5TAB13 PO; +PANT40TA52 PO
[2020-11-02] MEDS ORDERED: fentaNYL INJECTION 100 MCG/2 ML AMP ONE (11:10)
[2020-11-02] MEDS ORDERED: NS IV 1000 ML 1,000 ML ONE ×2 (11:10→22:24)
[2020-11-02] MEDS ORDERED: ONDANSETRON 4 MG/2 ML (SDV) Z0FRAN ONE (11:11)
[2020-11-02] MEDS ORDERED: FAMOTIDINE 20MG/2ML IV (PEPCID) ONE (11:11)
[2020-11-02] MEDS ORDERED: NS IV 1000 ML 1,000 ML IV ONE ×2 (11:15→14:15)
[2020-11-02] MEDS ORDERED: FAMOTIDINE 20MG/2ML IV (PEPCID) IVP ONE (11:15)
[2020-11-02] MEDS ORDERED: fentaNYL INJECTION 100 MCG/2 ML AMP IVP ONE (11:15)
[2020-11-02] MEDS ORDERED: ONDANSETRON 4 MG/2 ML (SDV) Z0FRAN IVP ONE (11:15)
[2020-11-02 11:23] LABS: BASOPHILS % (AUTO) 0 % (0-10); EOSINOPHILS % (AUTO) 0 % (0-10); HEMATOCRIT 46 % (40-54); HEMOGLOBIN 14.7 g/dL (13.3-17.7); LYMPHOCYTES # (AUTO) 0.5 10^3/uL (1.0-4.0); LYMPHOCYTES % (AUTO) 3 % (12-44); MEAN CORPUSCULAR HEMOGLOBIN 30 pg (25-34); MEAN CORPUSCULAR HGB CONC 32 g/dL (32-36); MEAN CORPUSCULAR VOLUME 95 fL (80-99); MEAN PLATELET VOLUME 11.2 fL (9.0-12.2); MONOCYTES # (AUTO) 0.6 10^3/uL (0.0-1.0); MONOCYTES % (AUTO) 3 % (0-12); NEUTROPHILS # (AUTO) 15.8 10^3/uL (1.8-7.8); NEUTROPHILS % (AUTO) 93 % (42-75); PLATELET COUNT 148 10^3/uL (130-400)
[2020-11-02 11:37] LABS: ALBUMIN 3.8 GM/DL (3.2-4.5); CHLORIDE 98 MMOL/L (98-107); POTASSIUM 4.6 MMOL/L (3.6-5.0); SODIUM 135 MMOL/L (135-145)
[2020-11-02 11:38] LABS: CALCIUM 8.2 MG/DL (8.5-10.1)
[2020-11-02 11:40] LABS: TOTAL PROTEIN 6.7 GM/DL (6.4-8.2)
[2020-11-02 11:41] LABS: BILIRUBIN,TOTAL 1.4 MG/DL (0.1-1.0); CARBON DIOXIDE 15 MMOL/L (21-32)
[2020-11-02 11:43] LABS: ALKALINE PHOSPHATASE 78 U/L (40-136); CREATININE SERUM 2.12 MG/DL (0.60-1.30); GFR ESTIMATED 30
[2020-11-02 11:44] LABS: BUN/CREATININE RATIO 18
[2020-11-02 11:45] LABS: GLUCOSE 547 MG/DL (70-105)
[2020-11-02 11:46] LABS: ALANINE AMINOTRANSFERASE 36 U/L (0-55)
[2020-11-02 11:47] LABS: LIPASE < 4 U/L (8-78)
[2020-11-02 12:05] LABS: EOSINOPHILS % (MANUAL) 1 %; LYMPHOCYTES % (MANUAL) 3 %; MONOCYTES % (MANUAL) 2 %; NEUTROPHILS % (MANUAL) 94 %; RBC MORPH NORMAL
[2020-11-02] MEDS ORDERED: inSUlin (REGULAR) HUMAN 1 UNIT/0.01 ML (CHARGE PER UNIT) IV ONE (12:15)
[2020-11-02] MEDS ORDERED: MEROPENEM 1,000 MG in WATER (STERILE) FOR INJECTION 20 ML IV ONE (13:15)
--- NOTE | 2020-11-02 13:15 | NUR ---
Report from [facility] Gonzalez.
[2020-11-02] MEDS ORDERED: morphine INJ 10 MG/ML 1ML (SYR OR VIAL) IVP STA ×2 (13:18→13:26)
--- NOTE | 2020-11-02 13:19 | Diagnostic Imaging Report ---
PROCEDURE: CT abdomen and pelvis without contrast. TECHNIQUE: Multiple contiguous axial images were obtained through the abdomen and pelvis without the use of intravenous contrast. Auto Exposure Controls were utilized during the CT exam to meet ALARA standards for radiation dose reduction. INDICATION: Abdominal pain The previous CT abdomen/pelvis exam of 03/30/2020 noted a large collection of fecal material within the ascending colon. There is also edema/inflammation of the wall of the ascending colon consistent with colitis. In the interval since the prior study patient has undergone a surgical procedure. A portion of the ascending colon has been resected. There does seem to be some residual edema of the ascending colon in the region of the anastomosis. There is also distortion of the pericolonic fat consistent with edema/inflammation. There is no sign of an abscess and there is no clear evidence for extravasation of any fluid from the anastomosis to suggest that the anastomosis is compromised. However if further evaluation is desired, then a contrast CT abdomen/pelvis exam with oral contrast should be obtained. There is some distention of both the large and small bowel by gas. This appearance is nonspecific but may be related to an ileus. There is also a small amount of free fluid along the pelvis. This is nonspecific. There is no acute abnormality noted otherwise. The portal venous gas seen previously is again evident. In the interval since the prior study a small amount of atelectasis/infiltrate and fluid has developed in both lung bases. Reportedly the patient is COVID positive. The bone windows are unremarkable for a fracture or for a destructive lesion. IMPRESSION: 1. There has been interval surgical procedure involving the ascending colon since the prior exam. There does seem to be thickening of the wall of the ascending colon in the region of the anastomosis and there is edema/inflammation of the pericolonic fat in this region as well. There is no mass or abscess identified and there is no sign of a pneumoperitoneum. There is no clear evidence for a leak from the anastomosis either. Additional considerations as above. 2. There is a small amount of free fluid in the pelvis. This is nonspecific. There is also distention of both large and small bowel by gas. There is no clear evidence for bowel obstruction however. 3. Mild bibasilar atelectasis/infiltrate and small bilateral pleural effusions have developed. The patient is COVID positive. 4. These results were discussed with Drs. Ellison and Vesta at the time of dictation. Report was faxed to [facility] by [email or web address] at 118pm. Dictated by: Dictated on workstation # [id number]
[2020-11-02 13:21] LABS: INR 1.3 (0.8-1.4)
--- NOTE | 2020-11-02 13:45 | ED General ---
General Chief Complaint: Abdominal/GI Problems Stated Complaint: DIABETIC KETOACIDOSIS Nursing Triage Note: PT BROUGHT IN BY [facility] FROM HOME WITH COMPLAINT OF ABD PAIN, N/V/D, AND ELEVATED BLOOD GLUCOSE. PT HAS NOT TAKEN INSULIN SINCE LAST NIGHT. STATES SYMPTOMS STARTED 2 DAYS AGO. Nursing Sepsis Screen: No Definite Risk Source of Information: Patient, EMS Exam Limitations: No Limitations History of Present Illness Date Seen by Provider: Nov 02, 2020 Time Seen by Provider: 11:04 Initial Comments This 85-year-old gentleman presents to the emergency room via EMS with complaints of nausea, vomiting, diarrhea, severe abdominal pain, and elevated blood sugar. He has history of type 2 diabetes. 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 It was discovered after initial as sessment that his was recently discharged from the hospital with COVID-19. He does not complain of any respiratory symptoms at this time. He is afebrile and oxygen saturation is normal on room air. His daughter's name is Kenyetta Ward and her number is [phone]. She would like to be kept updated. Allergies and Home Medications Allergies Coded Allergies: No Known Drug Allergies (Verified , 10/15/09) Home Medications Ascorbic Acid 500 Mg Capsule, 500 MG PO DAILY, (Reported) Aspirin 81 Mg Tablet., 81 MG PO DAILY Prescribed by: AGATHA PAZ on 04/18/20601 Atenolol 25 Mg Tablet, 25 MG PO HS, (Reported) Calcium Carbonate 600 Mg Tablet, 600 MG PO DAILY, (Reported) Finasteride 5 Mg Tablet, 5 MG PO D, (Reported) Fluoxetine HCl 20 Mg Capsule, 20 MG PO HS, (Reported) Furosemide 40 Mg Tablet, 40 MG PO DAILY Prescribed by: AGATHA PAZ on 04/18/20601 Gabapentin 300 Mg Capsule, 300 MG PO BID, (Reported) Glipizide 10 Mg Tablet, 10 MG PO HS, (Reported) Glipizide 5 Mg Tablet, 2.5 MG PO DAILY Prescribed by: AGATHA PAZ on 04/18/20601 Hydrocodone/Acetaminophen 1 Each Tablet, 1 TAB PO Q4H PRN for MOD Prescribed by: AGATHA PAZ on 04/18/20602 Multivit-Min/FA/Lycopene/Lut 1 Each Tablet, 1 TAB PO DAILY, (Reported) Pantoprazole Sodium 40 Mg Tablet., 40 MG PO BID Prescribed by: AGATHA PAZ on 04/18/20 0602 Peg 400/Hypromellose/Glycerin 15 Ml Drops, 2 DROPS OU PRN PRN for DRY EYES, (Reported) Tamsulosin HCl 0.4 Mg Cap, 0.4 MG PO HS, (Reported) Patient Home Medication List Home Medication List Reviewed: Yes Review of Systems Review of Systems Constitutional: no symptoms reported EENTM: no symptoms reported Respiratory: no symptoms reported Cardiovascular: no symptoms reported Gastrointestinal: see HPI Genitourinary: no symptoms reported Musculoskeletal: no symptoms reported Skin: no symptoms reported Psychiatric/Neurological: No Symptoms Reported Hematologic/Lymphatic: No Symptoms Reported Immunological/Allergic: no symptoms reported Past Yeyyfwg-Yhtdhq-Xevzag Hx Past Med/Social Hx: Reviewed and Corrections made Patient Social History Alcohol Use: Past History Number of Drinks Today: GG Alcohol Beverage of Choice: Beer, Whiskey Recreational Drug Use: No Smoking Status: Current Everyday Smoker Type Used: Cigars 2nd Hand Smoke Exposure: Yes Recent Foreign Travel: No Contact w/Someone Who Travel: No Recent Infectious Disease Expo: No Recent Hopitalizations: Yes Immunizations Up To Date Tetanus Booster (TDap): Unknown Date of Pneumonia Vaccine: Sep 29, 2012 Seasonal Allergies Seasonal Allergies: No Past Medical History Surgeries: Yes (CABG; RIGHT BKA; RIGHT LEG ARTERY BYPASS; PACEMAKER X 2) Abdominal (Ischemic bowel), Amputation, Cardiac, CABG, Eye Surgery, Joint Replacement, Orthopedic, Pacemaker, Vascular Surgery Respiratory: Yes Pneumonia Currently Using CPAP: No Currently Using BIPAP: No Cardiac: Yes (CABG; PACEMAKER) Coronary Artery Disease, High Cholesterol, Hypertension, Peripheral Vascular Neurological: Yes Headaches /Migraines, Neuropathy Reproductive Disorders: No Genitourinary: Yes Prostate Problems, Renal Failure Gastrointestinal: Yes (iscemic bowel) Chronic Constipation 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, Insulin dep HEENT: Yes Cataract Loss of Vision: Denies Hearing Impairment: Hard of Hearing Cancer: No Psychosocial: Yes Depression Integumentary: No Blood Disorders: No Adverse Reaction/Blood Tranf: No Family Medical History Diabetes mellitus GRANDMOTHER FH: leukemia G8 BROTHER Testicular cancer 19 FATHER Physical Exam-Suspected Sepsis Physical Exam Vital Signs Vital Signs - First Documented 11/02/20 11/02/20 11:03 14:45 Temp 37.3 Pulse 70 Resp 24 B/P (MAP) 145/90 (108) Pulse Ox 96 O2 Delivery Room Air O2 Flow Rate 2.00 Capillary Refill : Less Than 3 Seconds Blood Pressure Mean: 108 Height, Weight, BMI Height: 5'9.00" Weight: 226lbs. 9.6oz. 102.296078ix; 32.00 BMI Method:Stated General Appearance: WD/WN, Moderate Distress HEENT: PERRL/EOMI, Normal ENT Inspection Neck: Normal Inspection Respiratory: Lungs Clear, Normal Breath Sounds, No Accessory Muscle Use Cardiovascular: Regular Rate, Rhythm, No Edema, No Murmur, Other Gastrointestinal: Normal Bowel Sounds, Soft, Tenderness (Very tender abdomen), Other (Tympanic to percussion) Extremity: Non Tender, No Pedal Edema, Other (Right leg amputation) Neurologic/Psychiatric: Alert, Oriented x3, No Motor/Sensory Deficits, Normal Mood/Affect, optimization analyst II-XII Norm as Tested Skin: normal color, warm/dry Focused Exam Sepsis Stage: Septic Shock Possible Source: GI Tract/Intra-Abdominal Lactate Level 11/02/20 13:27: Lactic Acid Level 4.28*H 11/02/20 16:25: Lactic Acid Level 2.78*H 11/02/20 22:05: Lactic Acid Level 1.74 Time of Focused Exam: 13:20 Lactic Acid Level Within 3hrs of presentation: Admin fluids, Admin 30ml/kg IBW due to BMI>30, Admin ABX, Blood cultures prior to ABX's, Focus exam, Lactate level, Other (Patient was examined by Dr. Burton and Dr. Lemons in the ER which suffices for focused exam.) Progress/Results/Core Measures Suspected Sepsis Recent Fever Within 48 Hours: No Infection Criteria Present: None New/Unexplained Altered Menta: No Sepsis Screen: No Definite Risk SIRS Temperature: Pulse: 70 Respiratory Rate: 24 Laboratory Tests 11/02/20 11:08: White Blood Count 17.0H 11/03/20 03:20: White Blood Count 14.3H Blood Pressure 145 /90 Mean: 108 11/02/20 13:27: Lactic Acid Level 4.28*H 11/02/20 16:25: Lactic Acid Level 2.78*H 11/02/20 22:05: Lactic Acid Level 1.74 Laboratory Tests 11/02/20 11:08: Creatinine 2.12H, Platelet Count 148, Total Bilirubin 1.4H 11/02/20 11:09: INR Comment 1.3 11/02/20 22:25: Creatinine 2.26H 11/03/20 03:20: Creatinine 2.33H, Platelet Count 121L Results/Orders Lab Results Laboratory Tests Test 11/02/20 00:00 11/02/20 11:08 11/02/20 11:09 11/02/20 11:11 Range/Units Lactic Acid Level 2.59 *H 0.50-2.00 MMOL/L White Blood Count 17.0 H 4.3-11.0 10^3/uL Red Blood Count 4.87 4.30-5.52 10^6/uL Hemoglobin 14.7 13.3-17.7 g/dL Hematocrit 46 40-54 % Mean Corpuscular Volume 95 80-99 fL Mean Corpuscular Hemoglobin 30 25-34 pg Mean Corpuscular Hemoglobin Concent 32 32-36 g/dL Red Cell Distribution Width 14.7 H 10.0-14.5 % Platelet Count 148 130-400 10^3/uL Mean Platelet Volume 11.2 9.0-12.2 fL Immature Granulocyte % (Auto) 1 % Neutrophils (%) (Auto) 93 H 42-75 % Lymphocytes (%) (Auto) 3 L 12-44 % Monocytes (%) (Auto) 3 0-12 % Eosinophils (%) (Auto) 0 0-10 % Basophils (%) (Auto) 0 0-10 % Neutrophils # (Auto) 15.8 H 1.8-7.8 10^3/uL Lymphocytes # (Auto) 0.5 L 1.0-4.0 10^3/uL Monocytes # (Auto) 0.6 0.0-1.0 10^3/uL Eosinophils # (Auto) 0.0 0.0-0.3 10^3/uL Basophils # (Auto) 0.0 0.0-0.1 10^3/uL Immature Granulocyte # (Auto) 0.1 0.0-0.1 10^3/uL Neutrophils % (Manual) 94 % Lymphocytes % (Manual) 3 % Monocytes % (Manual) 2 % Eosinophils % (Manual) 1 % Blood Morphology Comment NORMAL Sodium Level 135 135-145 MMOL/L Potassium Level 4.6 3.6-5.0 MMOL/L Chloride Level 98 98-107 MMOL/L Carbon Dioxide Level 15 L 21-32 MMOL/L Anion Gap 22 H 5-14 MMOL/L Blood Urea Nitrogen 39 H 7-18 MG/DL Creatinine 2.12 H 0.60-1.30 MG/DL Estimat Glomerular Filtration Rate 30 BUN/Creatinine Ratio 18 Glucose Level 547 *H 70-105 MG/DL Calcium Level 8.2 L 8.5-10.1 MG/DL Corrected Calcium 8.4 L 8.5-10.1 MG/DL Total Bilirubin 1.4 H 0.1-1.0 MG/DL Aspartate Amino Transf (AST/SGOT) 27 5-34 U/L Alanine Aminotransferase (ALT/SGPT) 36 0-55 U/L Alkaline Phosphatase 78 40-136 U/L Lactate Dehydrogenase 326 H 125-220 U/L C-Reactive Protein High Sensitivity 15.84 H 0.00-0.50 MG/DL Total Protein 6.7 6.4-8.2 GM/DL Albumin 3.8 3.2-4.5 GM/DL Lipase < 4 L 8-78 U/L Procalcitonin 29.58 H <0.10 NG/ML Prothrombin Time 17.0 H 12.2-14.7 SEC INR Comment 1.3 0.8-1.4 Activated Partial Thromboplast Time 34 24-35 SEC Beta-Hydroxybutyrate (Chem panel) 0.89 H 0.00-0.27 MMOL/L Glucometer 507 *H 70-110 MG/DL Test 11/02/20 12:15 11/02/20 13:27 11/02/20 13:41 11/02/20 16:25 Range/Units Coronavirus 2019 (OSCAR) Positive H Negative Lactic Acid Level 4.28 *H 2.78 *H 0.50-2.00 MMOL/L Urine Color YELLOW Urine Clarity CLEAR Urine pH 5.0 5-9 Urine Specific Bryan >=1.030 1.016-1.022 Urine Protein 1+ H NEGATIVE Urine Glucose (UA) 3+ H NEGATIVE Urine Ketones TRACE H NEGATIVE Urine Nitrite NEGATIVE NEGATIVE Urine Bilirubin NEGATIVE NEGATIVE Urine Urobilinogen 0.2 < = 1.0 MG/DL Urine Leukocyte Esterase NEGATIVE NEGATIVE Urine RBC (Auto) 1+ H NEGATIVE Urine RBC 2-5 H /HPF Urine WBC 0-2 /HPF Urine Squamous Epithelial Cells 0-2 /HPF Urine Crystals NONE /LPF Urine Bacteria TRACE /HPF Urine Casts PRESENT /LPF Urine Hyaline Casts 2-5 H /LPF Urine Mucus NEGATIVE /LPF Urine Yeast FEW H /HPF Urine Culture Indicated CULTURE PENDING Test 11/02/20 17:21 11/02/20 22:05 11/02/20 22:25 11/03/20 00:52 Range/Units Glucometer 390 H 267 H 70-110 MG/DL Lactic Acid Level 1.74 0.50-2.00 MMOL/L Sodium Level 137 135-145 MMOL/L Potassium Level 4.5 3.6-5.0 MMOL/L Chloride Level 104 98-107 MMOL/L Carbon Dioxide Level 22 21-32 MMOL/L Anion Gap 11 5-14 MMOL/L Blood Urea Nitrogen 46 H 7-18 MG/DL Creatinine 2.26 H 0.60-1.30 MG/DL Estimat Glomerular Filtration Rate 28 BUN/Creatinine Ratio 20 Glucose Level 305 H 70-105 MG/DL Calcium Level 7.6 L 8.5-10.1 MG/DL Test 11/03/20 03:20 11/03/20 06:07 Range/Units White Blood Count 14.3 H 4.3-11.0 10^3/uL Red Blood Count 3.88 L 4.30-5.52 10^6/uL Hemoglobin 11.8 L 13.3-17.7 g/dL Hematocrit 37 L 40-54 % Mean Corpuscular Volume 95 80-99 fL Mean Corpuscular Hemoglobin 30 25-34 pg Mean Corpuscular Hemoglobin Concent 32 32-36 g/dL Red Cell Distribution Width 15.0 H 10.0-14.5 % Platelet Count 121 L 130-400 10^3/uL Mean Platelet Volume 11.0 9.0-12.2 fL Immature Granulocyte % (Auto) 1 % Neutrophils (%) (Auto) 91 H 42-75 % Lymphocytes (%) (Auto) 5 L 12-44 % Monocytes (%) (Auto) 3 0-12 % Eosinophils (%) (Auto) 0 0-10 % Basophils (%) (Auto) 0 0-10 % Neutrophils # (Auto) 13.0 H 1.8-7.8 10^3/uL Lymphocytes # (Auto) 0.7 L 1.0-4.0 10^3/uL Monocytes # (Auto) 0.5 0.0-1.0 10^3/uL Eosinophils # (Auto) 0.0 0.0-0.3 10^3/uL Basophils # (Auto) 0.0 0.0-0.1 10^3/uL Immature Granulocyte # (Auto) 0.1 0.0-0.1 10^3/uL Sodium Level 137 135-145 MMOL/L Potassium Level 4.4 3.6-5.0 MMOL/L Chloride Level 104 98-107 MMOL/L Carbon Dioxide Level 22 21-32 MMOL/L Anion Gap 11 5-14 MMOL/L Blood Urea Nitrogen 48 H 7-18 MG/DL Creatinine 2.33 H 0.60-1.30 MG/DL Estimat Glomerular Filtration Rate 27 BUN/Creatinine Ratio 21 Glucose Level 240 H 70-105 MG/DL Calcium Level 7.3 L 8.5-10.1 MG/DL Phosphorus Level 3.8 2.3-4.7 MG/DL Magnesium Level 1.8 1.6-2.4 MG/DL Glucometer 217 H 70-110 MG/DL My Orders Orders - DARLEEN FIELDS MD Cbc With Automated Diff (11/02/20 11:12) Comprehensive Metabolic Panel (11/02/20 11:12) Hs C Reactive Protein (11/02/20 11:12) Lipase (11/02/20 11:12) Ua Culture If Indicated (11/02/20 11:12) Ed Iv/Invasive Line Start (11/02/20 11:12) Ns Iv 1000 Ml (Sodium Chloride 0.9%) (11/02/20 11:15) Accucheck Stat ONCE (11/02/20 11:12) Ondansetron Injection (Zofran Injectio (11/02/20 11:15) Famotidine Injection (Pepcid Injection) (11/02/20 11:15) Fentanyl Injection (Sublimaze Injection (11/02/20 11:15) Fentanyl Injection (Sublimaze Injection (11/02/20 11:10) Ns Iv 1000 Ml (Sodium Chloride 0.9%) (11/02/20 11:10) Ondansetron Injection (Zofran Injectio (11/02/20 11:11) Famotidine Injection (Pepcid Injection) (11/02/20 11:11) Manual Differential (11/02/20 11:08) Procalcitonin (Pct) (11/02/20 11:53) Hs C Reactive Protein (11/02/20 11:53) LDH (11/02/20 11:53) Covid 19 Inhouse Test (11/02/20 11:53) Insulin (Regular) Human (Novolin R (Per (11/02/20 12:15) Ct Abdomen/Pelvis Wo (11/02/20 12:05) Blood Culture (11/02/20 13:04) Sputum Culture (11/02/20 13:04) Urine Culture (11/02/20 13:04) Protime With Inr (11/02/20 13:04) Partial Thromboplastin Time (11/02/20 13:04) Vital Signs Adult Sepsis Patie Q15M (11/02/20 13:04) O2 (11/02/20 13:04) Remove Rings In Anticipation O (11/02/20 13:04) Lactic Acid Analyzer (11/02/20 13:04) Chest 1 View, Ap/Pa Only (11/02/20 13:04) Beta Hydroxybutyrate (11/02/20 13:04) Meropenem (Merrem 1000 Mg) (11/02/20 13:15) Morphine Injection (Morphine Injection (11/02/20 13:26) Ns Iv 1000 Ml (Sodium Chloride 0.9%) (11/02/20 14:15) Lactated Ringers (Lr 1000 Ml Iv Solution (11/02/20 14:48) Medications Given in ED Vital Signs/I&O 11/02/20 11/02/20 11/02/20 11/02/20 19:45 20:00 20:21 21:00 Temp 35.8 Pulse 70 70 Resp 20 19 B/P (MAP) 101/51 110/54 Pulse Ox 93 94 O2 Delivery Nasal Cannula Nasal Cannula Nasal Cannula O2 Flow Rate 2.00 2.00 2.00 11/02/20 11/02/20 11/02/20 11/03/20 22:00 23:00 23:52 00:00 Temp 35.6 Pulse 70 70 70 Resp 18 19 20 B/P (MAP) 99/45 112/60 107/51 Pulse Ox 94 95 97 O2 Delivery Nasal Cannula Nasal Cannula Nasal Cannula O2 Flow Rate 2.00 2.00 2.00 11/03/20 11/03/20 11/03/20 11/03/20 00:52 01:00 02:00 03:00 Pulse 70 70 70 68 Resp 20 18 21 B/P (MAP) 107/48 119/47 115/47 Pulse Ox 94 96 93 O2 Delivery Nasal Cannula Nasal Cannula Nasal Cannula O2 Flow Rate 2.00 2.00 2.00 11/03/20 11/03/20 11/03/20 11/03/20 04:00 05:00 06:00 06:13 Temp 36.7 Pulse 70 70 70 Resp 18 22 17 B/P (MAP) 101/46 123/48 114/50 Pulse Ox 96 96 96 O2 Delivery Nasal Cannula Nasal Cannula Nasal Cannula O2 Flow Rate 2.00 2.00 2.00 Capillary Refill : Less Than 3 Seconds Blood Pressure Mean: 108 Point of Care Testing Finger Stick Blood Glucose: 507 Blood Glucose Action Taken: DR NOTIFIED Progress Note : Time: 14:17 Progress Note Patient was seen and examined upon arrival. After discovery of his 's COVID-19, he was treated as a person under investigation. His rapid Covid did return positive. Labs suggested severe sepsis or septic shock. 3 L of IV fluid were ordered in the emergency room. Meropenem was started for initial antibiotic therapy. Dr. Lemons and Dr. Burton presented to the ER to examine the patient. Dr. Burton's exam suffices for the focused exam after initiation of fluid resuscitation. Lactic acid was greater than 4 suggesting septic shock. Diagnostic Imaging Diagonstic Imaging: CT Plain Films/CT/US/NM/MRI: abdomen, pelvis Comments CT abdomen pelvis viewed by me and report reviewed. Discussed with the radiologist and the surgeon. See report below: NAME: JOSE ADKINS [facility] REC#: [id number] PT STATUS: REG ER : 1935 PHYSICIAN: DARLEEN FIELDS MD ADMIT DATE: 11/02/20/ER Draft Date of Exam:11/02/20 CT ABDOMEN/PELVIS WO PROCEDURE: CT abdomen and pelvis without contrast. TECHNIQUE: Multiple contiguous axial images were obtained through the abdomen and pelvis without the use of intravenous contrast. Auto Exposure Controls were utilized during the CT exam to meet ALARA standards for radiation dose reduction. INDICATION: Abdominal pain The previous CT abdomen/pelvis exam of 03/30/2020 noted a large collection of fecal material within the ascending colon. There is also edema/inflammation of the wall of the ascending colon consistent with colitis. In the interval since the prior study patient has undergone a surgical procedure. A portion of the ascending colon has been resected. There does seem to be some residual edema of the ascending colon in the region of the anastomosis. There is also distortion of the pericolonic fat consistent with edema/inflammation. There is no sign of an abscess and there is no clear evidence for extravasation of any fluid from the anastomosis to suggest that the anastomosis is compromised. However if further evaluation is desired, then a contrast CT abdomen/pelvis exam with oral contrast should be obtained. There is some distention of both the large and small bowel by gas. This appearance is nonspecific but may be related to an ileus. There is also a small amount of free fluid along the pelvis. This is nonspecific. There is no acute abnormality noted otherwise. The portal venous gas seen previously is again evident. In the interval since the prior study a small amount of atelectasis/infiltrate and fluid has developed in both lung bases. Reportedly the patient is COVID positive. The bone windows are unremarkable for a fracture or for a destructive lesion. IMPRESSION: There has been interval surgical procedure involving the ascending colon since the prior exam. There does seem to be thickening of the wall of the ascending colon in the region of the anastomosis and there is edema/inflammation of the pericolonic fat in this region as well. There is no mass or abscess identified and there is no sign of a pneumoperitoneum. There is no clear evidence for a leak from the anastomosis either. Additional considerations as above. There is a small amount of free fluid in the pelvis. This is nonspecific. There is also distention of both large and small bowel by gas. There is no clear evidence for bowel obstruction however. Mild bibasilar atelectasis/infiltrate and small bilateral pleural effusions have developed. The patient is COVID positive. These results were discussed with Drs. Ellison and Vesta at the time of dictation. Report was faxed to [facility] by [email or web address] at 118pm. Dictated on workstation # [id number] Dict: 11/02/20 1304 Trans: 11/02/20 1318 [facility] [id number] Interpreted by: MARIFER VEGAS MD Diagonstic Imaging: Xray Plain Films/CT/US/NM/MRI: chest Comments NAME: JOSE ADKINS [facility] REC#: [id number] PT STATUS: ADM IN : 1935 PHYSICIAN: DARLEEN FIELDS MD ADMIT DATE: 11/02/20/ICU Signed Date of Exam:11/02/20 CHEST 1 VIEW, AP/PA ONLY Portable erect AP chest at 201pm. INDICATION: Sepsis workup The cardiomegaly, the sternotomy wires and left-sided pacemaker seen on the prior exam of 04/04/2020 are again evident and no different. The lung bases do seem better aerated than on the prior exam but there is a small amount of atelectasis/infiltrate and fluid in each lower lobe. The upper lungs are generally clear. The mediastinum is not widened. The osseous structures are intact. IMPRESSION: The appearance of the chest has improved as the lung bases do seem better aerated. However there is a small amount of atelectasis/infiltrate and fluid in each lower lobe. Dictated by: Dictated on workstation # [id number] Dict: 11/02/20 1430 Trans: 11/02/20 1926 [facility] [id number] Interpreted by: MARIFER VEGAS MD Electronically signed by: MARIFER VEGAS MD 11/02/201925 Reviewed: Reviewed by Me Departure Communication (Admissions) Time/Spoke to Admitting Phy: 13:20 Dr. Burton Time/Spoke to Consulting Phy: 13:20 Ted[place] Impression Primary Impression: Septic shock Additional Impressions: COVID-19 Colitis Acute kidney injury Nausea vomiting and diarrhea Disposition: ADMITTED INPATIENT Condition: Stable Admissions Decision to Admit Reason: Admit from ER (General) Decision to Admit/Date: Nov 03, 2020 Time/Decision to Admit Time: 11:15 Departure-Patient Inst. Referrals: NO,LOCAL PHYSICIAN (PCP/Family) Primary Care Physician DARLEEN FIELDS MD Nov 02, 2020 13:44
[2020-11-02 13:56] LABS: BILIRUBIN,URINE NEGATIVE (NEGATIVE); CLARITY,URINE CLEAR; COLOR,URINE YELLOW; GLUCOSE, URINE (UA) 3+ (NEGATIVE); KETONES,URINE TRACE (NEGATIVE); LEUKOCYTE ESTERASE ,URINE NEGATIVE (NEGATIVE); NITRITE,URINE NEGATIVE (NEGATIVE); PROTEIN,URINE 1+ (NEGATIVE)
[2020-11-02 14:10] LABS: BACTERIA,URINE TRACE /HPF; SQUAMOUS EPITHELIAL CELL,UR 0-2 /HPF; WBC,URINE 0-2 /HPF; YEAST,URINE FEW /HPF
--- NOTE | 2020-11-02 14:11 | History & Physical-Hospitalist ---
History of Present Illness HPI/Chief Complaint Pt is an 85yoCM with a PMH of IDDMII, HTN, CAD s/p CABG. ischemic colitis who presented to the ER due to abdominal pain. He states that he has been feeling poorly with abdominal pain for the past two days. He has had nausea and vomiting with this as well. He did not take his insulin last night because of this. His was recently admitted to the hospital due to COVID but she has been home. He denies any cough, SOB, fever, or chills. His only complaint is abdominal pain. Source: patient Date Seen 11/02/20 Time Seen by a Provider: 14:00 Attending Physician PCP No,Local Physician Referring Physician Date of Admission Home Medications & Allergies Home Medications Reviewed patient Home Medication Reconciliation performed by pharmacy medication reconciliations mechanical engineering technician and/or nursing. Patients Allergies have been reviewed. Allergies Allergies Coded Allergies No Known Drug Allergies (Crjpipge46/17/09) Past Gfsigla-Iwsqbd-Qnzrui Hx Past Med/Social Hx: Reviewed Nursing Past Med/Soc Hx Patient Social History Marrital Status: Alcohol Use: Past History Alcohol Beverage of Choice: Beer, Whiskey Recreational Drug Use: No Smoking Status: Current Everyday Smoker Type Used: Cigars 2nd Hand Smoke Exposure: Yes Recent Foreign Travel: No Contact w/other who traveled: No Recent Hopitalizations: Yes Recent Infectious Disease Expo: No Immunizations Up To Date Tetanus Booster (TDap): Unknown Date of Pneumonia Vaccine: Sep 29, 2012 Seasonal Allergies Seasonal Allergies: No Past Medical History Surgeries: Amputation, Cardiac, CABG, Eye Surgery, Joint Replacement, Orthopedic, Pacemaker, Vascular Surgery Respiratory: COPD, Sleep Apnea Currently Using CPAP: No Currently Using BIPAP: No Cardiac: Coronary Artery Disease, High Cholesterol, Hypertension, Peripheral Vascular Neurological: Headaches /Migraines, Neuropathy Reproductive: No Genitourinary: Prostate Problems, Renal Failure Gastrointestinal: Chronic Constipation Musculoskeletal: Amputee Endocrine: Diabetes, Non-Insulin dep HEENT: Cataract Loss of Vision: Denies Hearing Impairment: Hard of Hearing Psychosocial: Depression History of Blood Disorders: No Adverse Reaction to Blood Pimentel: No Family History Reviewed Nursing Family Hx Diabetes mellitus GRANDMOTHER FH: leukemia G8 BROTHER Testicular cancer 19 FATHER Review of Systems Constitutional: No chills, No fever EENTM: no symptoms reported Respiratory: No cough, No short of breath Cardiovascular: No chest pain; edema (not current but intermittently ), Hx of Intervention Gastrointestinal: see HPI Genitourinary: no symptoms reported Musculoskeletal: no symptoms reported Skin: no symptoms reported Psychiatric/Neurological: No Symptoms Reported Physical Exam Physical Exam Vital Signs Vital Signs - First Documented 11/02/20 11:03 Temp 37.3 Pulse 70 Resp 24 B/P (MAP) 145/90 (108) Pulse Ox 96 O2 Delivery Room Air Capillary Refill : Less Than 3 Seconds Height, Weight, BMI Height: 5'9.00" Weight: 226lbs. 9.6oz. 102.516779bt; 32.00 BMI Method:Stated General Appearance: No Apparent Distress, Chronically ill, Obese HEENT: PERRL/EOMI, Moist Mucous Membranes Neck: Normal Inspection, Supple Respiratory: Lungs Clear, No Accessory Muscle Use, No Respiratory Distress Cardiovascular: Regular Rate, Rhythm, No Murmur Gastrointestinal: Normal Bowel Sounds, Distended, Guarding, Tenderness (diffusely tender throughout abdomine, vertical scar apparent from previous ex lap) Extremity: Normal Capillary Refill, No Calf Tenderness, No Pedal Edema, Other (s/p BKA on right) Neurologic/Psychiatric: Alert, Oriented x3, Normal Mood/Affect Skin: Normal Color, Warm/Dry; No Mottled Comments I attest to a focused exam Results Results/Procedures Labs Laboratory Tests 11/02/20 11:08 Patient resulted labs reviewed. Imaging: Reviewed Imaging Report Imaging [facility], [place] NAME: JOSE ADKINS [facility] REC#: [id number] PT STATUS: REG ER : 1935 PHYSICIAN: DARLEEN FIELDS MD ADMIT DATE: 11/02/20/ER Draft Date of Exam:11/02/20 CT ABDOMEN/PELVIS WO PROCEDURE: CT abdomen and pelvis without contrast. TECHNIQUE: Multiple contiguous axial images were obtained through the abdomen and pelvis without the use of intravenous contrast. Auto Exposure Controls were utilized during the CT exam to meet ALARA standards for radiation dose reduction. INDICATION: Abdominal pain The previous CT abdomen/pelvis exam of 03/30/2020 noted a large collection of fecal material within the ascending colon. There is also edema/inflammation of the wall of the ascending colon consistent with colitis. In the interval since the prior study patient has undergone a surgical procedure. A portion of the ascending colon has been resected. There does seem to be some residual edema of the ascending colon in the region of the anastomosis. There is also distortion of the pericolonic fat consistent with edema/inflammation. There is no sign of an abscess and there is no clear evidence for extravasation of any fluid from the anastomosis to suggest that the anastomosis is compromised. However if further evaluation is desired, then a contrast CT abdomen/pelvis exam with oral contrast should be obtained. There is some distention of both the large and small bowel by gas. This appearance is nonspecific but may be related to an ileus. There is also a small amount of free fluid along the pelvis. This is nonspecific. There is no acute abnormality noted otherwise. The portal venous gas seen previously is again evident. In the interval since the prior study a small amount of atelectasis/infiltrate and fluid has developed in both lung bases. Reportedly the patient is COVID positive. The bone windows are unremarkable for a fracture or for a destructive lesion. IMPRESSION: There has been interval surgical procedure involving the ascending colon since the prior exam. There does seem to be thickening of the wall of the ascending colon in the region of the anastomosis and there is edema/inflammation of the pericolonic fat in this region as well. There is no mass or abscess identified and there is no sign of a pneumoperitoneum. There is no clear evidence for a leak from the anastomosis either. Additional considerations as above. There is a small amount of free fluid in the pelvis. This is nonspecific. There is also distention of both large and small bowel by gas. There is no clear evidence for bowel obstruction however. Mild bibasilar atelectasis/infiltrate and small bilateral pleural effusions have developed. The patient is COVID positive. These results were discussed with Drs. Ellison and Vesta at the time of dictation. Report was faxed to [facility] by rola at 118pm. Dictated on workstation # [id number] Dict: 11/02/20 1301 Trans: 11/02/20 1316 ROLA [id number] Interpreted by: MARIFER VEGAS MD Electronically signed by: Assessment/Plan Admission Diagnosis Septic Shock Admission Status: Inpatient Order (span 2 midnights) Reason for Inpatient Admission: see below Assessment and Plan Septic Shock Abdominal pain MERNA on mild CKD HAGMA Continue on IV abx Await cultures WBC elevated and concern for GI source given abdominal exam and CT findings Lactic acid 4.28 Procal is 29 Concern for ischemic colitis, surgery consulted appreciate recs Low threshold for ex lap, follow serial exams Lipase negative COVID19 Not currently on oxygen Will not start decadron or remdesivir at this time due to normal oxygenation status Poorly controlled IDDMII Acidosis likely from sepsis and not DKA SSI ordered beta hydroxybutrate only 0.89 CAD HTN HLD Hold home meds for now given high risk for surgery in the next 24 hours and mild hypotension in the ER Overall guarded prognosis he has multiple chronic comorbidities and now acutely has COVID19 and concern for ischemic colitis. Dr Ellison did call and discuss with his family. I spoke with patient as did Dr Ellison regarding code status. He states he wants to be full code and do whatever it takes to get better. 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
--- NOTE | 2020-11-02 14:32 | NUR ---
Fluids infusing to ICU.
--- NOTE | 2020-11-02 14:33 | Diagnostic Imaging Report ---
Portable erect AP chest at 201pm. INDICATION: Sepsis workup The cardiomegaly, the sternotomy wires and left-sided pacemaker seen on the prior exam of 04/04/2020 are again evident and no different. The lung bases do seem better aerated than on the prior exam but there is a small amount of atelectasis/infiltrate and fluid in each lower lobe. The upper lungs are generally clear. The mediastinum is not widened. The osseous structures are intact. IMPRESSION: The appearance of the chest has improved as the lung bases do seem better aerated. However there is a small amount of atelectasis/infiltrate and fluid in each lower lobe. Dictated by: Dictated on workstation # [id number]
--- NOTE | 2020-11-02 14:39 | Consultation - Surgery ---
History of Present Illness History of Present Illness Patient Consulted On(hebert/time) 11/02/20 14:34 Time Seen by Provider: 11:59 History of Present Illness Surgery asked to consult regarding abdominal pain. HPI per ED: PT BROUGHT IN BY [facility] FROM HOME WITH COMPLAINT OF ABD PAIN, N/V/D, AND ELEVATED BLOOD GLUCOSE. PT HAS NOT TAKEN INSULIN SINCE LAST NIGHT. STATES SYMPTOMS STARTED 2 DAYS AGO. Initial Comments This 85-year-old gentleman presents to the emergency room via EMS with complaints of nausea, vomiting, diarrhea, severe abdominal pain, and elevated blood sugar. He has history of type 2 diabetes. 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 It was discovered after initial assessment that his was recently discharged from the hospital with COVID- 19. He does not complain of any respiratory symptoms at this time. He is afebrile and oxygen saturation is normal on room air. When I spoke to he was in severe pain and asking for pain meds. He thought all of this was due to his diabetes. He has a significant past hx of two colon resections secondary to ischemic bowel; within the past year and a half. He actually stated this pain is worse than when he had it back in March. This pain has been going on for only a couple of days; rated as 10 out of 10. Nothing is making the pain better and he also wants some ice chips because his mouth is so dry. Allergies and Home Medications Allergies Coded Allergies: No Known Drug Allergies (Verified , 10/15/09) Home Medications Ascorbic Acid 500 Mg Capsule, 500 MG PO DAILY, (Reported) Aspirin 81 Mg Tablet.dr, 81 MG PO DAILY Prescribed by: AGATHA PAZ on 04/18/20601 Atenolol 25 Mg Tablet, 25 MG PO HS, (Reported) Calcium Carbonate 600 Mg Tablet, 600 MG PO DAILY, (Reported) Finasteride 5 Mg Tablet, 5 MG PO D, (Reported) Fluoxetine HCl 20 Mg Capsule, 20 MG PO HS, (Reported) Furosemide 40 Mg Tablet, 40 MG PO DAILY Prescribed by: AGATHA PAZ on 04/18/20601 Gabapentin 300 Mg Capsule, 300 MG PO BID, (Reported) Glipizide 10 Mg Tablet, 10 MG PO HS, (Reported) Glipizide 5 Mg Tablet, 2.5 MG PO DAILY Prescribed by: AGATHA PAZ on 04/18/20601 Hydrocodone/Acetaminophen 1 Each Tablet, 1 TAB PO Q4H PRN for MOD Prescribed by: AGATHA PAZ on 04/18/20 06 Multivit-Min/FA/Lycopene/Lut 1 Each Tablet, 1 TAB PO DAILY, (Reported) Pantoprazole Sodium 40 Mg Tablet.dr, 40 MG PO BID Prescribed by: AGATHA PAZ on 04/18/20 06 Peg 400/Hypromellose/Glycerin 15 Ml Drops, 2 DROPS OU PRN PRN for DRY EYES, (Reported) Tamsulosin HCl 0.4 Mg Cap, 0.4 MG PO HS, (Reported) Patient Home Medication List Home Medication List Reviewed: Yes Past Kyvjqmi-Mzujei-Tjyfwh Hx Patient Social History Alcohol Use: Past History Number of Drinks Today: GG Recreational Drug Use: No Smoking Status: Current Everyday Smoker Type Used: Cigars 2nd Hand Smoke Exposure: Yes Recent Foreign Travel: No Contact w/Someone Who Travel: No Recent Infectious Disease Expo: No Recent Hopitalizations: Yes Immunizations Up To Date Tetanus Booster (TDap): Unknown Date of Pneumonia Vaccine: Sep 29, 2012 Seasonal Allergies Seasonal Allergies: No Surgeries History of Surgeries: Yes (CABG; RIGHT BKA; RIGHT LEG ARTERY BYPASS; PACEMAKER X 2) Surgeries: Abdominal (Ischemic bowel), Amputation, Cardiac, CABG, Eye Surgery, Joint Replacement, Orthopedic, Pacemaker, Vascular Surgery Respiratory History of Respiratory Disorde: Yes Respiratory Disorders: Pneumonia Cardiovascular History of Cardiac Disorders: Yes (CABG; PACEMAKER) Cardiac Disorders: Coronary Artery Disease, High Cholesterol, Hypertension, Peripheral Vascular Neurological History of Neurological Disord: Yes Neurological Disorders: Headaches /Migraines, Neuropathy Reproductive System Hx Reproductive Disorders: No Genitourinary History of Genitourinary Disor: Yes Genitourinary Disorders: Prostate Problems, Renal Failure Gastrointestinal History of Gastrointestinal Di: Yes (iscemic bowel) Gastrointestinal Disorders: Chronic Constipation Musculoskeletal History of Musculoskeletal Dis: Yes (RIGHT BKA) Musculoskeletal Disorders: Amputee Endocrine History of Endocrine Disorders: Yes Endocrine Disorders: Diabetes, Insulin dep HEENT History of HEENT Disorders: Yes HEENT Disorders: Cataract Loss of Vision: Denies Hearing Impairment: Hard of Hearing Cancer History of Cancer: No Psychosocial History of Psychiatric Problem: Yes Behavioral Health Disorders: Depression Integumentary History of Skin or Integumenta: No Blood Transfusions History of Blood Disorders: No Adverse Reaction to a Blood Tr: No Family Medical History Significant Family History: Cancer, Diabetes Family Medial History: Diabetes mellitus GRANDMOTHER FH: leukemia G8 BROTHER Testicular cancer 19 FATHER Review of Systems-General Constitutional: No fever; malaise, weakness EENTM: No blurred vision, No double vision, No mouth pain, No mouth swelling, No epistaxis, No throat swelling Respiratory: No cough, No dyspnea on exertion, No hemoptysis, No short of breath Cardiovascular: No chest pain, No edema; Hx of Intervention; No palpitations Gastrointestinal: abdominal pain; No hematemesis, No jaundice; nausea, vomiting Genitourinary: No dysuria, No frequency, No hematuria Musculoskeletal: joint pain, joint swelling, muscle pain, muscle stiffness Skin: No change in color, No change in hair/nails, No lesions Psychiatric/Neurological: Denies Anxiety; Depressed, Headache; Denies Seizure, Denies Tremors Other Pt denies any hx of abnormal bleeding or bruising Physical Exam-General Problems Physical Exam Vital Signs Vital Signs - First Documented 11/02/20 11:03 Temp 37.3 Pulse 70 Resp 24 B/P (MAP) 145/90 (108) Pulse Ox 96 O2 Delivery Room Air Capillary Refill : Less Than 3 Seconds General Appearance: severe distress, obese Eyes: Bilateral Eye PERRL, Bilateral Eye EOMI HEENT: pharynx normal; No scleral icterus (R), No scleral icterus (L); other (mucous membranes dry) Neck: non-tender, supple Respiratory: lungs clear, normal breath sounds, no respiratory distress, no accessory muscle use Cardiovascular: regular rate, rhythm Gastrointestinal: soft, no organomegaly; No distended; guarding (voluntary), rebound, tenderness (diffusely but more on the right, venkat RUQ); No hernia Genital/Rectal: normal genital exam; No blood at urethral meatus Back: no CVA tenderness, no vertebral tenderness Extremities: no pedal edema, no calf tenderness, normal capillary refill Neurologic/Psychiatric: technical implementation lead II-XII nml as tested, alert, normal mood/affect, oriented x 3 Skin: normal color, warm/dry Lymphatic: no adenopathy (neck, axilla or groin) Data Review Labs Laboratory Tests 11/02/20 11:08: White Blood Count 17.0H, Red Blood Count 4.87, Hemoglobin 14.7, Hematocrit 46, Mean Corpuscular Volume 95, Mean Corpuscular Hemoglobin 30, Mean Corpuscular Hemoglobin Concent 32, Red Cell Distribution Width 14.7H, Platelet Count 148, Mean Platelet Volume 11.2, Immature Granulocyte % (Auto) 1, Neutrophils (%) (Auto) 93H, Lymphocytes (%) (Auto) 3L, Monocytes (%) (Auto) 3, Eosinophils (%) (Auto) 0, Basophils (%) (Auto) 0, Neutrophils # (Auto) 15.8H, Lymphocytes # (Auto) 0.5L, Monocytes # (Auto) 0.6, Eosinophils # (Auto) 0.0, Basophils # (Auto) 0.0, Immature Granulocyte # (Auto) 0.1, Neutrophils % (Manual) 94, Lymphocytes % (Manual) 3, Monocytes % (Manual) 2, Eosinophils % (Manual) 1, Blood Morphology Comment NORMAL, Sodium Level 135, Potassium Level 4.6, Chloride Level 98, Carbon Dioxide Level 15L, Anion Gap 22H, Blood Urea Nitrogen 39H, Creatinine 2.12H, Estimat Glomerular Filtration Rate 30, BUN/Creatinine Ratio 18, Glucose Level 547*H, Calcium Level 8.2L, Corrected Calcium 8.4L, Total Bilirubin 1.4H, Aspartate Amino Transf (AST/SGOT) 27, Alanine Aminotransferase (ALT/SGPT) 36, Alkaline Phosphatase 78, Lactate Dehydrogenase 326H, C-Reactive Protein High Sensitivity 15.84H, Total Protein 6.7, Albumin 3.8, Lipase < 4L, Procalcitonin 29.58H 11/02/20 11:09: Prothrombin Time 17.0H, INR Comment 1.3, Activated Partial Thromboplast Time 34, Beta-Hydroxybutyrate (Chem panel) 0.89H 11/02/20 11:11: Glucometer 507*H 11/02/20 12:15: Coronavirus 2019 (OSCAR) PositiveH 11/02/20 13:27: Lactic Acid Level 4.28*H 11/02/20 13:41: Urine Color YELLOW, Urine Clarity CLEAR, Urine pH 5.0, Urine Specific [place] >=1.030, Urine Protein 1+H, Urine Glucose (UA) 3+H, Urine Ketones TRACEH, Urine Nitrite NEGATIVE, Urine Bilirubin NEGATIVE, Urine Urobilinogen 0.2, Urine Leukocyte Esterase NEGATIVE, Urine RBC (Auto) 1+H, Urine RBC 2-5H, Urine WBC 0- 2, Urine Squamous Epithelial Cells 0-2, Urine Crystals NONE, Urine Bacteria TRACE, Urine Casts PRESENT, Urine Hyaline Casts 2-5H, Urine Mucus NEGATIVE, Urine Yeast FEWH, Urine Culture Indicated CULTURE PENDING Radiology Date of Exam:11/02/20 CT ABDOMEN/PELVIS WO PROCEDURE: CT abdomen and pelvis without contrast. TECHNIQUE: Multiple contiguous axial images were obtained through the abdomen and pelvis without the use of intravenous contrast. Auto Exposure Controls were utilized during the CT exam to meet ALARA standards for radiation dose reduction. INDICATION: Abdominal pain The previous CT abdomen/pelvis exam of 03/30/2020 noted a large collection of fecal material within the ascending colon. There is also edema/inflammation of the wall of the ascending colon consistent with colitis. In the interval since the prior study patient has undergone a surgical procedure. A portion of the ascending colon has been resected. There does seem to be some residual edema of the ascending colon in the region of the anastomosis. There is also distortion of the pericolonic fat consistent with edema/inflammation. There is no sign of an abscess and there is no clear evidence for extravasation of any fluid from the anastomosis to suggest that the anastomosis is compromised. However if further evaluation is desired, then a contrast CT abdomen/pelvis exam with oral contrast should be obtained. There is some distention of both the large and small bowel by gas. This appearance is nonspecific but may be related to an ileus. There is also a small amount of free fluid along the pelvis. This is nonspecific. There is no acute abnormality noted otherwise. The portal venous gas seen previously is again evident. In the interval since the prior study a small amount of atelectasis/infiltrate and fluid has developed in both lung bases. Reportedly the patient is COVID positive. The bone windows are unremarkable for a fracture or for a destructive lesion. IMPRESSION: There has been interval surgical procedure involving the ascending colon since the prior exam. There does seem to be thickening of the wall of the ascending colon in the region of the anastomosis and there is edema/inflammation of the pericolonic fat in this region as well. There is no mass or abscess identified and there is no sign of a pneumoperitoneum. There is no clear evidence for a leak from the anastomosis either. Additional considerations as above. There is a small amount of free fluid in the pelvis. This is nonspecific. There is also distention of both large and small bowel by gas. There is no clear evidence for bowel obstruction however. Mild bibasilar atelectasis/infiltrate and small bilateral pleural effusions have developed. The patient is COVID positive. These results were discussed with Drs. Ellison and Vesta at the time of dictation. Report was faxed to [facility] by rola at 118pm. Dictated on workstation # [id number] Dict: 11/02/20 1304 Trans: 11/02/20 1318 ROLA [id number] Interpreted by: MARIFER VEGAS MD Assessment/Plan Assessment/Plan Assessment/Plan Right sided Abdominal pain; R/O Ischemic Bowel Hyperglycemia Leukocytosis Covid - 19 I am very concerned that pt could have ischemic bowel again; he has had it twice before and he states this is the worst his pain has ever been. His blood sugar was in the 500's, Lactic acid of 4.28 and his WBC was 17K. He has multiple co- morbidities and is a poor surgical candidate and his risk is worse because he is Covid positive. However, he has come through two previous surgeries pretty well. Unfortunately, this is a chronic problem because of his bad vascular disease and the fact that he continues to smoke. My plan is to reassess him and then speak to his and the pt to make a decision. ROSANA ARAUJO DO Nov 02, 2020 14:39
[2020-11-02] MEDS ORDERED: LACTATED RINGERS 1,000 ML IV ONE (14:48)
[2020-11-02] MEDS: morphine INJ 4 MG/ML 1 ML (VIAL/SYRINGE) IV PRN ×2 (15:00→20:17)
[2020-11-02] MEDS ORDERED: ACETAMINOPHEN 650 MG SUPP (TYLENOL) PR PRN (15:15)
[2020-11-02] MEDS: LACTATED RINGERS 1,000 ML IV SCH ×2 (15:23→22:11)
--- NOTE | 2020-11-02 15:23 | Progress Note - Surgery ---
Subjective Time Seen by a Provider: 15:14 Subjective/Events-last exam Pt seen and examined, does not appear to be in as much pain but did get some IV pain meds. Nursing is having hard time getting IV access. Focused Exam Lactate Level 11/02/20 13:27: Lactic Acid Level 4.28*H Lactic Acid Level Laboratory Tests Test 11/02/20 13:27 Lactic Acid Level 4.28 MMOL/L (0.50-2.00) *H Objective Exam Vital Signs Date Time Temp Pulse Resp B/P (MAP) Pulse Ox O2 Delivery O2 Flow Rate FiO2 11/02/20 15:00 70 11/02/20 14:29 70 18 112/44 94 Room Air 11/02/20 11:03 37.3 70 24 145/90 (108) 96 Room Air Capillary Refill : Less Than 3 Seconds General Appearance: Moderate Distress, Obese HEENT: PERRL/EOMI Cardiovascular: Other Gastrointestinal: soft, no organomegaly; No distended; guarding (voluntary), rebound, tenderness (?? maybe slightly better); No hernia Neurologic/Psychiatric: Alert, Oriented x3 Skin: No Mottled Results Lab Laboratory Tests 11/02/20 11:08: White Blood Count 17.0H, Red Blood Count 4.87, Hemoglobin 14.7, Hematocrit 46, Mean Corpuscular Volume 95, Mean Corpuscular Hemoglobin 30, Mean Corpuscular Hemoglobin Concent 32, Red Cell Distribution Width 14.7H, Platelet Count 148, Mean Platelet Volume 11.2, Immature Granulocyte % (Auto) 1, Neutrophils (%) (Auto) 93H, Lymphocytes (%) (Auto) 3L, Monocytes (%) (Auto) 3, Eosinophils (%) (Auto) 0, Basophils (%) (Auto) 0, Neutrophils # (Auto) 15.8H, Lymphocytes # (Auto) 0.5L, Monocytes # (Auto) 0.6, Eosinophils # (Auto) 0.0, Basophils # (Auto) 0.0, Immature Granulocyte # (Auto) 0.1, Neutrophils % (Manual) 94, Lymph ocytes % (Manual) 3, Monocytes % (Manual) 2, Eosinophils % (Manual) 1, Blood Morphology Comment NORMAL, Sodium Level 135, Potassium Level 4.6, Chloride Level 98, Carbon Dioxide Level 15L, Anion Gap 22H, Blood Urea Nitrogen 39H, Creatinine 2.12H, Estimat Glomerular Filtration Rate 30, BUN/Creatinine Ratio 18, Glucose Level 547*H, Calcium Level 8.2L, Corrected Calcium 8.4L, Total Bilirubin 1.4H, Aspartate Amino Transf (AST/SGOT) 27, Alanine Aminotransferase (ALT/SGPT) 36, Alkaline Phosphatase 78, Lactate Dehydrogenase 326H, C-Reactive Protein High Sensitivity 15.84H, Total Protein 6.7, Albumin 3.8, Lipase < 4L, Procalcitonin 29.58H 11/02/20 11:09: Prothrombin Time 17.0H, INR Comment 1.3, Activated Partial Thromboplast Time 34, Beta-Hydroxybutyrate (Chem panel) 0.89H 11/02/20 11:11: Glucometer 507*H 11/02/20 12:15: Coronavirus 2019 (OSCAR) PositiveH 11/02/20 13:27: Lactic Acid Level 4.28*H 11/02/20 13:41: Urine Color YELLOW, Urine Clarity CLEAR, Urine pH 5.0, Urine Specific [place] >=1.030, Urine Protein 1+H, Urine Glucose (UA) 3+H, Urine Ketones TRACEH, Urine Nitrite NEGATIVE, Urine Bilirubin NEGATIVE, Urine Urobilinogen 0.2, Urine Leukocyte Esterase NEGATIVE, Urine RBC (Auto) 1+H, Urine RBC 2-5H, Urine WBC 0- 2, Urine Squamous Epithelial Cells 0-2, Urine Crystals NONE, Urine Bacteria TRACE, Urine Casts PRESENT, Urine Hyaline Casts 2-5H, Urine Mucus NEGATIVE, Urine Yeast FEWH, Urine Culture Indicated CULTURE PENDING Assessment/Plan Assessment/Plan Assessment/Plan Right sided Abdominal pain; R/O Ischemic Bowel Hyperglycemia Leukocytosis Covid - 19 I spoke with his and she states he had a lot of dry heaves last night and took a lot of anti-diarrheal meds last night. She would like to wait to do surgery; we will make sure he is getting IV fluids, IV ABX and reasses tomorrow. He also has some venous insufficiency so I will place a central line now. I asked nursing to monitor him closely and if he needs his abdomen reassessed tonight to call me. ROSANA ARAUJO DO Nov 02, 2020 15:23
--- NOTE | 2020-11-02 15:30 | NUR ---
PTD VANCOMYCIN - CrCl 29ml/min. Loading dose of 2gm over 2 hours, then 500mg every 24 hours. Trough prior to 3rd dose, 11/04 @ 1500.
[2020-11-02] MEDS ORDERED: VANCOMYCIN 2000 MG/NS 500 ML IVPB IV NR ×2 (16:00)
--- NOTE | 2020-11-02 16:24 | Progress Note-Post Operative ---
Post-Operative Progess Note Surgeon (s)/Assistant Cross Country Coach (s) Surgeon ROSANA ARAUJO DO Assistant Cross Country Coach: none Pre-Operative Diagnosis right sided abdominal pain suspect ischemic bowel, venous insufficiency, Post-Operative Diagnosis same and hypotension Procedure & Operative Findings Date of Procedure 11/02/20 Procedure Performed/Findings PROCEDURE: [Right] internal jugular central line placement using ultrasound guidance. COMPLICATIONS: None. INDICATIONS: The patient is a 85 year old male [with abdominal pain (r/o ischemic bowel) venous insufficiency and hypotension]. Patient understands the risks and benefits of line placement and wished to proceed with the procedure. Consent was signed on the chart. PROCEDURE: The patient was in his bed in the ICU, was prepped and draped in the sterile fashion. A surgical pause was performed. Ultrasound was used to locate the internal jugular vein. Once located anesthetic was infiltrated above it. Using 18 guage finder needle with negative inspiration; watched on US as the right internal vein was accessed. Dark nonpulsatile blood was withdrawn. The wire was inserted. US assured proper placement. The needle was removed. A stab incision was made with a #11 blade along the guidewire and then the dilator was advanced over the wire using the seldinger technique; advanced easily. Next the dilator was removed and the central line was place over the wire using seldinger technique; it advanced easily. Finally the wire was removed. Locking ports had been placed on all three lumens and each was then accessed without difficulty. Easily aspirated and got a good flash of blood and then all three were flushed with saline. The central line was sutured in place with 2-0 Silk on a Robert needle. The areas was then washed and dried. A sterile dressing was placed over the central line. The patient tolerated the procedure well without complication. Anesthesia Type local lidocaine Estimated Blood Loss Estimated blood loss (mL): scant Specimens/Packing Specimens Removed none ROSANA ARAUJO DO Nov 02, 2020 16:24
[2020-11-02] MEDS: inSUlin ASPART (NovoLOG) 1 UNIT/0.01 ML (CHARGE PER UNIT) SC SCH (17:48)
[2020-11-02] MEDS: MEROPENEM 500 MG/SWFI 10 ML IV PUSH IV SCH ×2 (20:14)
--- NOTE | 2020-11-02 22:00 | NUR ---
DR RANKIN, [facility] NOTIFIED OF MINIMAL URINE OUTPUT. ORDERS TO OBTAIN CVP ET BMP.
[2020-11-02 23:27] LABS: POTASSIUM 4.5 MMOL/L (3.6-5.0)
[2020-11-02 23:28] LABS: CALCIUM 7.6 MG/DL (8.5-10.1)
[2020-11-02 23:33] LABS: CREATININE SERUM 2.26 MG/DL (0.60-1.30)
--- NOTE | 2020-11-02 23:45 | NUR ---
DR RANKIN NOTIFIED THAT WE WERE UNABLE TO OBTAIN CVP WITH RIGHT IJ. ORDERS FOR FLUID BOLUS. 500ML OVER 30 MINUTES.
[2020-11-03] VITALS (9 sets, daily range): BP systolic 100–120; BP diastolic 34–75
[2020-11-03] MEDS: LACTATED RINGERS 1,000 ML IV SCH ×3 (00:58→18:42)
[2020-11-03] MEDS: inSUlin ASPART (NovoLOG) 1 UNIT/0.01 ML (CHARGE PER UNIT) SC SCH ×5 (00:58→23:53)
--- NOTE | 2020-11-03 01:20 | NUR ---
DR RANKIN NOTIFIED THAT URINE OUTPUT REMAINS MINIMAL AFTER BOLUS. RESPS BECOMING MORE LABORED. ORDER TO GIVE ONLY ONE 500ML BOLUS. GIVE LASIX.
[2020-11-03] MEDS ORDERED: FUROSEMIDE 40 MG/4 ML INJ (LASIX) IVP ONE (01:30)
[2020-11-03] MEDS: morphine INJ 4 MG/ML 1 ML (VIAL/SYRINGE) IV PRN ×3 (03:37→23:40)
[2020-11-03 03:45] LABS: BASOPHILS % (AUTO) 0 % (0-10); EOSINOPHILS % (AUTO) 0 % (0-10); HEMATOCRIT 37 % (40-54); HEMOGLOBIN 11.8 g/dL (13.3-17.7); LYMPHOCYTES # (AUTO) 0.7 10^3/uL (1.0-4.0); LYMPHOCYTES % (AUTO) 5 % (12-44); MEAN CORPUSCULAR HEMOGLOBIN 30 pg (25-34); MEAN CORPUSCULAR HGB CONC 32 g/dL (32-36); MEAN CORPUSCULAR VOLUME 95 fL (80-99); MONOCYTES # (AUTO) 0.5 10^3/uL (0.0-1.0); MONOCYTES % (AUTO) 3 % (0-12); NEUTROPHILS % (AUTO) 91 % (42-75); PLATELET COUNT 121 10^3/uL (130-400); WHITE BLOOD COUNT 14.3 10^3/uL (4.3-11.0)
[2020-11-03 04:04] LABS: POTASSIUM 4.4 MMOL/L (3.6-5.0)
[2020-11-03 04:05] LABS: CALCIUM 7.3 MG/DL (8.5-10.1)
[2020-11-03 04:09] LABS: CREATININE SERUM 2.33 MG/DL (0.60-1.30); PHOSPHORUS 3.8 MG/DL (2.3-4.7)
[2020-11-03 04:12] LABS: MAGNESIUM 1.8 MG/DL (1.6-2.4)
--- NOTE | 2020-11-03 06:36 | NUR ---
DR KABA NOTIFIED OF I&O. NO NEW ORDERS AT THIS TIME.
[2020-11-03] MEDS: MEROPENEM 500 MG/SWFI 10 ML IV PUSH IV SCH ×6 (06:49→20:00)
[2020-11-03] MEDS: FAMOTIDINE 20MG/2ML IV (PEPCID) IV SCH (08:51)
--- NOTE | 2020-11-03 09:14 | Diagnostic Imaging Report ---
CHEST 1 VIEW, AP/PA ONLY Indication: Central line placement. Comparison: 11/02/2020 Findings: Right IJ central venous catheter has tip terminating in the lower SVC near the superior cavoatrial junction. No pneumothorax. Left basilar hazy opacities are unchanged and could be due to atelectasis or pneumonia. Small pleural effusion could be present. Stable cardiomegaly. Stable left pectoral transvenous pacemaker. Impression: 1. Well-positioned right IJ central venous catheter. 2. No pneumothorax. 3. Stable left basilar pulmonary opacities possibly due to atelectasis. Dictated by: Dictated on workstation # [id number]
[2020-11-03] MEDS ORDERED: NS IV 500 ML 500 ML IV SCH (09:15)
--- NOTE | 2020-11-03 09:44 | Progress Note - Hospitalist ---
Subjective HPI/CC On Admission Date Seen by Provider: Nov 03, 2020 Time Seen by Provider: 09:32 Pt is an 85yoCM with a PMH of IDDMII, HTN, CAD s/p CABG. ischemic colitis who presented to the ER due to abdominal pain. He states that he has been feeling poorly with abdominal pain for the past two days. He has had nausea and vomiting with this as well. He did not take his insulin last night because of this. His was recently admitted to the hospital due to COVID but she has been home. He denies any cough, SOB, fever, or chills. His only complaint is abdominal pain. Subjective/Events-last exam Pt repotrs doing well. Still having abdominal pain, very tender to exam. RN at bedside ot administer morphine for pain control. Family deferred surgery last night. Will continue to monitor. Focused Exam Lactate Level 11/02/20 13:27: Lactic Acid Level 4.28*H 11/02/20 16:25: Lactic Acid Level 2.78*H 11/02/20 22:05: Lactic Acid Level 1.74 Time of Focused Exam: 13:20 Objective Exam Vital Signs Vital Signs Date Time Temp Pulse Resp B/P (MAP) Pulse Ox O2 Delivery O2 Flow Rate FiO2 11/03/20 07:26 36.9 11/03/20 07:00 74 11/03/20 06:00 17 114/50 96 Nasal Cannula 2.00 Capillary Refill : Less Than 3 SecondsLess Than 3 Seconds General Appearance: No Apparent Distress, Chronically ill, Obese Respiratory: Lungs Clear, No Respiratory Distress Cardiovascular: Regular Rate, Rhythm, No Murmur Gastrointestinal: Normal Bowel Sounds, Non Tender, Soft Neurologic/Psychiatric: Alert, Oriented x3 Results/Procedures Lab Laboratory Tests 11/02/20 11:08 11/02/20 22:25 11/03/20 03:20 Patient resulted labs reviewed. Imaging: Reviewed Imaging Report Assessment/Plan Assessment and Plan Assess & Plan/Chief Complaint Septic Shock Abdominal pain MERNA on mild CKD HAGMA Continue on IV abx Await cultures Lactic acid improved Procal is 29 Concern for ischemic colitis, surgery consulted appreciate recs Pt and family declined surgery last night Lipase negative Creatinine stable but UOP marginal, trend COVID19 acute hypoxic respiratory failure Now on oxygen, Will start remdesivir and decadron Will start convalescent plasma, discussed EUA status with patient Poorly controlled IDDMII BS improved today, trend SSI ordered CAD HTN HLD Hold home meds for now given high risk for surgery in the next 24 hours and mild hypotension in the ER Prognosis remains guarded. Likely will need surgery in the near future given unchanged abdominal exam and MERNA. 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
[2020-11-03] MEDS ORDERED: HUM100VI SQ ×2 (09:49→09:51)
[2020-11-03] MEDS ORDERED: REMDESIVIR INJ 200 MG in NS (IVPB) 210 ML IV ONE (10:00)
--- NOTE | 2020-11-03 14:13 | Progress Note - Surgery ---
Subjective Date Seen by a Provider: Nov 03, 2020 Time Seen by a Provider: 14:03 Subjective/Events-last exam Patient with abdominal pain all over. He states maybe some better. Pain is all over the abdomen. Breathing is okay. NPO. Urine output low. Patient and declined surgery yesterday. Focused Exam Lactate Level 11/02/20 13:27: Lactic Acid Level 4.28*H 11/02/20 16:25: Lactic Acid Level 2.78*H 11/02/20 22:05: Lactic Acid Level 1.74 Time of Focused Exam: 13:20 Objective Exam Vital Signs Date Time Temp Pulse Resp B/P (MAP) Pulse Ox O2 Delivery O2 Flow Rate FiO2 11/03/20 13:00 73 17 139/51 92 Nasal Cannula 2.00 11/03/20 12:38 70 11/03/20 12:00 68 15 126/50 100 Nasal Cannula 2.00 11/03/20 11:41 36.9 11/03/20 11:00 70 13 118/49 100 Nasal Cannula 2.00 11/03/20 10:00 70 19 119/52 100 Nasal Cannula 2.00 11/03/20 09:00 72 20 134/51 95 Nasal Cannula 2.00 11/03/20 08:45 Nasal Cannula 2.00 11/03/20 08:00 70 19 118/41 95 Nasal Cannula 2.00 11/03/20 07:45 71 19 103/67 95 Nasal Cannula 2.00 11/03/20 07:26 36.9 11/03/20 07:00 73 18 127/51 95 Nasal Cannula 2.00 11/03/20 07:00 74 11/03/20 06:13 36.7 11/03/20 06:00 70 17 114/50 96 Nasal Cannula 2.00 11/03/20 05:00 70 22 123/48 96 Nasal Cannula 2.00 11/03/20 04:00 70 18 101/46 96 Nasal Cannula 2.00 11/03/20 03:00 68 21 115/47 93 Nasal Cannula 2.00 11/03/20 02:00 70 18 119/47 96 Nasal Cannula 2.00 11/03/20 01:00 70 20 107/48 94 Nasal Cannula 2.00 11/03/20 00:52 70 11/03/20 00:00 70 20 107/51 97 Nasal Cannula 2.00 11/02/20 23:52 35.6 11/02/20 23:00 70 19 112/60 95 Nasal Cannula 2.00 11/02/20 22:00 70 18 99/45 94 Nasal Cannula 2.00 11/02/20 21:00 70 19 110/54 94 Nasal Cannula 2.00 11/02/20 20:21 35.8 11/02/20 20:00 70 20 101/51 93 Nasal Cannula 2.00 11/02/20 19:45 Nasal Cannula 2.00 11/02/20 19:00 70 20 115/48 91 Nasal Cannula 2.00 11/02/20 18:52 70 11/02/20 18:00 70 19 107/50 93 Nasal Cannula 2.00 11/02/20 17:00 70 19 103/43 93 Nasal Cannula 2.00 11/02/20 16:00 69 18 103/44 94 Nasal Cannula 2.00 11/02/20 15:24 92 Room Air 11/02/20 15:00 70 11/02/20 15:00 73 10 125/64 93 Nasal Cannula 2.00 11/02/20 14:45 70 10 124/64 93 Nasal Cannula 2.00 11/02/20 14:29 70 18 112/44 94 Room Air I & O 11/03/20 07:00 Intake Total 4530 ml Output Total 350 ml Balance 4180 ml Capillary Refill : Less Than 3 SecondsLess Than 3 Seconds General Appearance: No Apparent Distress (laying still), Chronically ill, Obese HEENT: PERRL/EOMI, Normal ENT Inspection Neck: Normal Inspection, Other (right ij central line) Respiratory: Chest Non Tender, No Accessory Muscle Use, No Respiratory Distress Cardiovascular: Regular Rate, Rhythm, No JVD, No Murmur Gastrointestinal: soft, no organomegaly; No distended; guarding, rebound, tenderness (diffuse tenderness, consistent with ischemic bowel); No hernia Extremity: Non Tender, No Pedal Edema, Other (Right leg amputation) Neurologic/Psychiatric: Alert, Oriented x3 Skin: Normal Color, Warm/Dry; No Mottled Lymphatic: No Adenopathy Results Lab Laboratory Tests 11/02/20 16:25: Lactic Acid Level 2.78*H 11/02/20 17:21: Glucometer 390H 11/02/20 22:05: Lactic Acid Level 1.74 11/02/20 22:25: Sodium Level 137, Potassium Level 4.5, Chloride Level 104, Carbon Dioxide Level 22, Anion Gap 11, Blood Urea Nitrogen 46H, Creatinine 2.26H, Estimat Glomerular Filtration Rate 28, BUN/Creatinine Ratio 20, Glucose Level 305H, Calcium Level 7.6L 11/03/20 00:52: Glucometer 267H 11/03/20 03:20: White Blood Count 14.3H, Red Blood Count 3.88L, Hemoglobin 11.8L, Hematocrit 37L , Mean Corpuscular Volume 95, Mean Corpuscular Hemoglobin 30, Mean Corpuscular Hemoglobin Concent 32, Red Cell Distribution Width 15.0H, Platelet Count 121L, Mean Platelet Volume 11.0, Immature Granulocyte % (Auto) 1, Neutrophils (%) (Auto) 91H, Lymphocytes (%) (Auto) 5L, Monocytes (%) (Auto) 3, Eosinophils (%) (Auto) 0, Basophils (%) (Auto) 0, Neutrophils # (Auto) 13.0H, Lymphocytes # (Auto) 0.7L, Monocytes # (Auto) 0.5, Eosinophils # (Auto) 0.0, Basophils # (Auto) 0.0, Immature Granulocyte # (Auto) 0.1, Sodium Level 137, Potassium Level 4.4, Chloride Level 104, Carbon Dioxide Level 22, Anion Gap 11, Blood Urea Nitrogen 48H, Creatinine 2.33H, Estimat Glomerular Filtration Rate 27, BUN/Creatinine Ratio 21, Glucose Level 240H, Calcium Level 7.3L, Phosphorus Level 3.8, Magnesium Level 1.8 11/03/20 06:07: Glucometer 217H 11/03/20 11:41: Glucometer 194H Assessment/Plan Assessment/Plan Assessment/Plan abdominal pain diffuse ischemic bowel Hyperglycemia Leukocytosis Covid - 19 Patient NPO IV fluids IV ABX Patient exam consistent with ischemic bowel. I discussed with patient and his by phone and do want to proceed with surgery now. We discussed risks and benefits of exploratory laparotomy all other indicated procedures. May need ostomy. They also understand risks associated with being Covid + as well. TO OR Clinical Quality Measures DVT/VTE Risk/Contraindication: Risk Factor Score Per Nursin RFS Level Per Nursing on Admit: 4+=Very High NEHAL GREENBERG DO Nov 03, 2020 14:13
[2020-11-03] MEDS ORDERED: SEVOFLURANE (ULTANE) 15 ML INHAL SOLN ONE ×6 (14:17→16:33)
[2020-11-03] MEDS: LACTATED RINGERS 1,000 ML IV PRN ×3 (14:50→16:15)
--- NOTE | 2020-11-03 14:54 | NUR ---
1445 PT TO OR VIA BED ACCOMPANIED BY ANESTHESIA AND OR STAFF.
[2020-11-03] MEDS ORDERED: fentaNYL INJECTION 100 MCG/2 ML AMP ONE (15:21)
[2020-11-03] MEDS ORDERED: ONDANSETRON 4 MG/2 ML (SDV) Z0FRAN ONE (15:28)
[2020-11-03] MEDS ORDERED: PHENYLEPHRINE 100 MCG/ML 10 ML (ANESTHESIA) SYR ONE (15:28)
[2020-11-03] MEDS ORDERED: proPOfol 200 MG/20 ML (DIPRIVAN) VIAL IV ONE (15:28)
[2020-11-03] MEDS ORDERED: SUCCINYLCHOLINE INJ 100 MG/5 ML SYR/VIAL ONE (15:29)
[2020-11-03] MEDS ORDERED: ROCURONIUM 10 MG/ML 5 ML SYRINGE IV ONE (15:29)
[2020-11-03] MEDS ORDERED: VANCOMYCIN 500 MG/NS 100 ML IV SCH ×2 (16:00)
[2020-11-03] MEDS ORDERED: BUPIVACAINE 0.5% 30 ML (SENSORCAINE) VIAL ONE (16:08)
[2020-11-03] MEDS ORDERED: NS IV 1000 ML 1,000 ML ONE (16:21)
[2020-11-03] MEDS ORDERED: PROPOFOL DRIP (ICU) 100 ML IV ONE ×2 (16:22→18:11)
[2020-11-03] MEDS ORDERED: GLYCOPYRROLATE 0.2 MG/ML (ROBINUL) 2 ML VIAL ONE (16:56)
[2020-11-03] MEDS ORDERED: NEOSTIGMINE 3 MG/3 ML VIAL ONE (16:56)
--- NOTE | 2020-11-03 17:20 | NUR ---
LATE ENTRY: PT BACK TO ROOM ICU 11 AT 1620 AFTER SURGERY FOR PAR, THIS RN ALONG WITH Jered OROZCO RN IN ROOM, PT ON VENTILATOR AND PER ANESTHESIA WILL REMAIN ON VENTILATOR AND E-ICU TO MANAGE. RESTRAINTS PLACED ON PT AT 1620 AND PROPOFOL STARTED. ART LINE NOTED IN RIGHT RADIAL. ABDOMEN SOFT WITH MIDLINE DRESSING NOTED WITH MINIMAL SANGUINEOUS DRAINAGE NOTED. THIS RN RESUMED CARE OF PT AT 1720 WITH REPORT RECEIVED FROM Jorden OROZCO RN. WILL CONTINUE TO MONITOR CLOSELY.
--- NOTE | 2020-11-03 18:37 | Diagnostic Imaging Report ---
INDICATION: Intubation. COMPARISON: Prior study from 11/02/2020. FINDINGS: Endotracheal tube tip terminates at the level of the clavicular heads. There has been placement of an enteric tube which extends to the proximal aspect of the stomach. A right internal jugular PICC line is unchanged. The patient is status post sternotomy and bypass grafting. A pacemaker device is present. Lung volumes are further diminished compared to the prior examination. There is increased prominence of the pulmonary septal markings which may reflect atelectasis, developing edema or infiltrates. IMPRESSION: 1. Endotracheal tube and enteric tube appear appropriately positioned. 2. Enlarged cardiac silhouette with diminished lung volumes. Patient is status post bypass grafting. There is increasing prominence of the pulmonary interstitial markings which may reflect atelectasis, edema or infiltrate. Dictated by: Dictated on workstation # [id number]
--- NOTE | 2020-11-03 21:21 | Progress Note-Post Operative ---
Post-Operative Progess Note Surgeon (s)/Economic Research Assistant (s) Surgeon NEHAL GREENBERG DO Economic Research Assistant: none Pre-Operative Diagnosis abdominal pain, ischemic bowel Post-Operative Diagnosis ischemic bowel, internal hernia Procedure & Operative Findings Date of Procedure 11/03/20 Procedure Performed/Findings ex lap, ileocolonic resection with side to side anastamosis Anesthesia Type gen Estimated Blood Loss Estimated blood loss (mL): min Specimens/Packing Specimens Removed ileum, colon NEHAL GREENBERG DO Nov 03, 2020 21:21
[2020-11-03] MEDS: PROPOFOL DRIP (ICU) 100 ML IV SCH (21:48)
[2020-11-04] MEDS: LACTATED RINGERS 1,000 ML IV SCH ×4 (00:45→17:43)
[2020-11-04] MEDS: PROPOFOL DRIP (ICU) 100 ML IV SCH (02:34)
[2020-11-04 02:41] LABS: BASOPHILS % (AUTO) 0 % (0-10); EOSINOPHILS % (AUTO) 0 % (0-10); HEMATOCRIT 32 % (40-54); HEMOGLOBIN 10.4 g/dL (13.3-17.7); LYMPHOCYTES # (AUTO) 0.4 10^3/uL (1.0-4.0); LYMPHOCYTES % (AUTO) 5 % (12-44); MEAN CORPUSCULAR HEMOGLOBIN 31 pg (25-34); MEAN CORPUSCULAR HGB CONC 32 g/dL (32-36); MEAN CORPUSCULAR VOLUME 94 fL (80-99); MEAN PLATELET VOLUME 11.1 fL (9.0-12.2); MONOCYTES # (AUTO) 0.3 10^3/uL (0.0-1.0); MONOCYTES % (AUTO) 4 % (0-12); NEUTROPHILS # (AUTO) 7.6 10^3/uL (1.8-7.8); NEUTROPHILS % (AUTO) 91 % (42-75); PLATELET COUNT 100 10^3/uL (130-400); WHITE BLOOD COUNT 8.4 10^3/uL (4.3-11.0)
[2020-11-04 02:45] LABS: ABG BASE EXCESS -0.3 MMOL/L (-2.5-2.5); ABG OXYGEN SATURATION 99 % (94-100); ABG PCO2 45 MMHG (35-45); ABG PH 7.36 (7.37-7.43); ABG PO2 117 MMHG (79-93); ABG TCO2 25.9 MMOL/L (21.0-31.0)
[2020-11-04 02:46] LABS: INSPIRED O2 30; PATIENT TEMP 36.8; VENTILATOR YES
[2020-11-04 02:51] LABS: ALBUMIN 2.4 GM/DL (3.2-4.5); POTASSIUM 4.6 MMOL/L (3.6-5.0)
[2020-11-04 02:53] LABS: CALCIUM 7.3 MG/DL (8.5-10.1)
[2020-11-04 02:54] LABS: TOTAL PROTEIN 4.9 GM/DL (6.4-8.2)
[2020-11-04 02:56] LABS: BILIRUBIN,TOTAL 0.4 MG/DL (0.1-1.0)
[2020-11-04 02:57] LABS: PHOSPHORUS 3.3 MG/DL (2.3-4.7)
[2020-11-04 02:58] LABS: CREATININE SERUM 1.99 MG/DL (0.60-1.30)
[2020-11-04 03:00] LABS: MAGNESIUM 1.9 MG/DL (1.6-2.4)
[2020-11-04] MEDS: MEROPENEM 500 MG/SWFI 10 ML IV PUSH IV SCH ×6 (04:12→21:27)
--- NOTE | 2020-11-04 04:43 | Pulmonary Consultation ---
History of Present Illness History of Present Illness Time Seen by Provider: 04:37 Date of Admission Allergies and Home Medications Allergies Coded Allergies: No Known Drug Allergies (Verified , 10/15/09) Home Medications Ascorbic Acid 500 Mg Capsule, 500 MG PO DAILY, (Reported) Aspirin 81 Mg Tablet.dr, 81 MG PO DAILY Prescribed by: AGATHA PAZ on 04/18/20 0602 Atenolol 25 Mg Tablet, 25 MG PO HS, (Reported) Calcium Carbonate 600 Mg Tablet, 600 MG PO DAILY, (Reported) Finasteride 5 Mg Tablet, 5 MG PO D, (Reported) Fluoxetine HCl 20 Mg Capsule, 20 MG PO HS, (Reported) Gabapentin 300 Mg Capsule, 300 MG PO BID, (Reported) Glipizide 10 Mg Tablet, 10 MG PO HS, (Reported) Glipizide 5 Mg Tablet, 2.5 MG PO DAILY Prescribed by: AGATHA PAZ on 04/18/20 0602 Hydrocodone/Acetaminophen 1 Each Tablet, 1 TAB PO Q4H PRN for MOD Prescribed by: AGATHA PAZ on 04/18/20 0603 Insulin NPH Hum/Reg Insulin Hm 100 Unit/1 Ml Vial, 20 UNITS SQ DAILY, (Reported) Insulin NPH Hum/Reg Insulin Hm 100 Unit/1 Ml Vial, 10 UNIT SQ HS, (Reported) Multivit-Min/FA/Lycopene/Lut 1 Each Tablet, 1 TAB PO DAILY, (Reported) Peg 400/Hypromellose/Glycerin 15 Ml Drops, 2 DROPS OU PRN PRN for DRY EYES, (Reported) Tamsulosin HCl 0.4 Mg Cap, 0.4 MG PO HS, (Reported) Past Pbpyfdp-Wxfcvl-Jfbtgx Hx Past Med/Social Hx: Reviewed Nursing Past Med/Soc Hx Patient Social History Alcohol Use: Past History Number of Drinks Today: GG Alcohol Beverage of Choice: Beer, Whiskey Recreational Drug Use: No Smoking Status: Current Everyday Smoker Type Used: Cigars 2nd Hand Smoke Exposure: Yes Recent Foreign Travel: No Contact w/Someone Who Travel: No Recent Infectious Disease Expo: No Recent Hopitalizations: Yes Immunizations Up To Date Tetanus Booster (TDap): Unknown Date of Pneumonia Vaccine: Sep 29, 2012 Seasonal Allergies Seasonal Allergies: No Past Medical History Surgeries: Yes (CABG; RIGHT BKA; RIGHT LEG ARTERY BYPASS; PACEMAKER X 2) Abdominal (Ischemic bowel), Amputation, Cardiac, CABG, Eye Surgery, Joint Replacement, Orthopedic, Pacemaker, Vascular Surgery Respiratory: Yes Pneumonia Currently Using CPAP: No Currently Using BIPAP: No Cardiac: Yes (CABG; PACEMAKER) Coronary Artery Disease, High Cholesterol, Hypertension, Peripheral Vascular Neurological: Yes Headaches /Migraines, Neuropathy Reproductive Disorders: No Genitourinary: Yes Prostate Problems, Renal Failure Gastrointestinal: Yes (iscemic bowel) Chronic Constipation 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, Insulin dep HEENT: Yes Cataract Loss of Vision: Denies Hearing Impairment: Hard of Hearing Cancer: No Psychosocial: Yes Depression Integumentary: No Blood Disorders: No Adverse Reaction/Blood Tranf: No Family Medical History Reviewed Nursing Family Hx Diabetes mellitus GRANDMOTHER FH: leukemia G8 BROTHER Testicular cancer 19 FATHER Cancer, Diabetes Review of Systems Time Seen by Provider: 04:45 Sepsis Event Evaluation Height, Weight, BMI Height: 5'9.00" Weight: 226lbs. 9.6oz. 102.112425my; 32.00 BMI Method:Stated Exam Exam Vital Signs Date Time Temp Pulse Resp B/P (MAP) Pulse Ox O2 Delivery O2 Flow Rate FiO2 11/04/20 02:34 117/55 11/04/20 00:49 70 11/03/20 23:46 37.2 11/03/20 23:40 37.2 70 12 109/52 96 Mechanical Ventilator 30 11/03/20 23:00 70 23 117/53 96 Mechanical Ventilator 30.00 11/03/20 22:00 37.0 70 18 114/48 96 Mechanical Ventilator 30 11/03/20 22:00 70 19 117/53 96 Mechanical Ventilator 30.00 11/03/20 21:48 105/36 11/03/20 21:46 36.9 70 20 107/35 97 Mechanical Ventilator 30 11/03/20 21:17 70 17 96 Mechanical Ventilator 30.00 11/03/20 21:05 71 12 97 30 11/03/20 21:00 70 12 117/52 97 Mechanical Ventilator 40.00 11/03/20 20:26 Mechanical Ventilator 40 11/03/20 20:21 37.0 11/03/20 20:00 37.0 70 12 112/52 98 Mechanical Ventilator 40.00 11/03/20 19:00 70 12 117/47 100 Mechanical Ventilator 50.00 11/03/20 18:56 70 13 99 50 11/03/20 18:45 70 125/44 11/03/20 18:43 70 125/44 11/03/20 18:00 70 29 125/44 99 Mechanical Ventilator 60.00 11/03/20 17:20 Mechanical Ventilator 100 11/03/20 17:20 36.1 16 100 Mechanical Ventilator 100 11/03/20 17:20 70 19 99 60 11/03/20 17:15 70 18 110/35 100 Mechanical Ventilator 60.00 11/03/20 17:10 16 100/45 (63) 100 Mechanical Ventilator 100 11/03/20 17:10 Mechanical Ventilator 100 11/03/20 17:00 71 12 100/45 100 Mechanical Ventilator 11/03/20 17:00 16 119/49 (72) 100 Mechanical Ventilator 100 11/03/20 16:55 Mechanical Ventilator 100 11/03/20 16:50 14 120/75 (90) 100 Mechanical Ventilator 100 11/03/20 16:45 70 120/75 94 Mechanical Ventilator 11/03/20 16:40 Mechanical Ventilator 100 11/03/20 16:40 36.0 12 100 Mechanical Ventilator 100 11/03/20 14:00 70 17 148/51 93 Nasal Cannula 2.00 11/03/20 13:00 73 17 139/51 92 Nasal Cannula 2.00 11/03/20 12:38 70 11/03/20 12:00 68 15 126/50 100 Nasal Cannula 2.00 11/03/20 11:41 36.9 11/03/20 11:00 70 13 118/49 100 Nasal Cannula 2.00 11/03/20 10:00 70 19 119/52 100 Nasal Cannula 2.00 11/03/20 09:00 72 20 134/51 95 Nasal Cannula 2.00 11/03/20 08:45 Nasal Cannula 2.00 11/03/20 08:00 70 19 118/41 95 Nasal Cannula 2.00 11/03/20 07:45 71 19 103/67 95 Nasal Cannula 2.00 11/03/20 07:26 36.9 11/03/20 07:00 73 18 127/51 95 Nasal Cannula 2.00 11/03/20 07:00 74 11/03/20 06:13 36.7 11/03/20 06:00 70 17 114/50 96 Nasal Cannula 2.00 11/03/20 05:00 70 22 123/48 96 Nasal Cannula 2.00 I & O 11/04/20 07:00 Intake Total 2800 ml Output Total 885 ml Balance 1915 ml Height & Weight Height: 5'9.00" Weight: 226lbs. 9.6oz. 102.383614jj; 32.00 BMI Method:Stated General Appearance: No Apparent Distress (laying still), Chronically ill, Obese HEENT: PERRL/EOMI, Normal ENT Inspection Neck: Normal Inspection, Other (right ij central line) Respiratory: Chest Non Tender, No Accessory Muscle Use, No Respiratory Distress Cardiovascular: Regular Rate, Rhythm, No JVD, No Murmur Capillary Refill: Less Than 3 Seconds Gastrointestinal: soft, no organomegaly; No distended; guarding, rebound, tenderness (diffuse tenderness, consistent with ischemic bowel); No hernia Extremity: Non Tender, No Pedal Edema, Other (Right leg amputation) Neurologic/Psychiatric: Alert, Oriented x3 Skin: Normal Color, Warm/Dry; No Mottled Lymphatic: No Adenopathy Results Lab Laboratory Tests 11/02/20 11:08 11/02/20 22:25 11/03/20 03:20 11/04/20 02:30 Assessment/Plan Assessment/Plan Acute respiratory failure after Surgery -Pt is COVID positive -Pt was left on vent after surgery -Will d/c sedation and proceed with extubation improving Septic Shock Abdominal pain MERNA on mild CKD -- improving metabolic lactic acidosis -- improving Continue on IV abx Await cultures Lactic acid improved Procal is 29 Concern for ischemic colitis, surgery consulted appreciate recs s/p surgery Lipase negative Creatinine stable but UOP marginal, trend COVID19 with acute hypoxic respiratory failure Now on oxygen, Will start remdesivir and decadron Will start convalescent plasma, discussed EUA status with patient Poorly controlled IDDMII BS improved today, trend SSI ordered CAD HTN HLD Hold home meds for now given high risk for surgery in the next 24 hours and mild hypotension in the ER BRETT HOPKINS DO Nov 04, 2020 04:43
[2020-11-04] MEDS: inSUlin ASPART (NovoLOG) 1 UNIT/0.01 ML (CHARGE PER UNIT) SC SCH ×4 (05:34→23:00)
[2020-11-04] MEDS: morphine INJ 4 MG/ML 1 ML (VIAL/SYRINGE) IV PRN ×2 (05:38→22:57)
[2020-11-04 06:12] VITALS: BP 133/48
--- NOTE | 2020-11-04 07:17 | Anesthesia-General Post-Op ---
General Patient Condition Mental Status/LOC: Same as Preop Cardiovascular: Satisfactory Nausea/Vomiting: Absent Respiratory: Satisfactory (Patient still intubated.) Pain: Controlled Complications: Absent Post Op Complications Complications None Follow Up Care/Instructions Patient Instructions None needed. Anesthesia/Patient Condition Patient Condition Stable vital signs, no apparent adverse anesthesia problems. No complications reported per nursing. VARUN OLSON CRNA Nov 04, 2020 07:17
[2020-11-04] MEDS: FAMOTIDINE 20MG/2ML IV (PEPCID) IV SCH (09:02)
[2020-11-04] MEDS: REMDESIVIR INJ 100 MG in NS (IVPB) 230 ML IV SCH (09:02)
--- NOTE | 2020-11-04 09:16 | NUR ---
0735 RT EXTUBATED PT PER DR HOPKINS ORDERS. PT ON 3 LITERS NC
--- NOTE | 2020-11-04 09:17 | NUR ---
THIS RN IN ROOM PT ALERT TO NAME, , PLACE WHEN ASKED WHAT YEAR IT IS PT STATES " 2003." PT VERBALIZES NO C/O OF PAIN, PT ASKED " AM I ." PT PLEASANT THIS AM KEEPS REPEATING TO HIMSELF " I'M NOT ." PT REMAIN SON O2 AT 3L SAO2 NOTED AT 97. PT REPOSITIONED PER COMFORT, CALL LIGHT AND OTHER PERSONAL ITEMS WITHIN REACH. NO NEEDS NOTED WILL CONTINUE TO MONITOR.
[2020-11-04] MEDS ORDERED: ASPI-1238 PO (11:54)
[2020-11-04] MEDS ORDERED: GABA300S2 PO (11:54)
[2020-11-04] MEDS ORDERED: ACHD5005 PO (11:54)
[2020-11-04] MEDS ORDERED: GABA300C PO (11:55)
[2020-11-04] MEDS ORDERED: SERT50TA9 PO (11:57)
--- NOTE | 2020-11-04 11:58 | NUR ---
I SPOKE WITH RAMANA ON PATIENT'S EMERGENCY CONTACT LIST, WENT THROUGH THE EXTERNAL MED HISTORY AND CALLED [facility] TO COMPLETE THIS MED REC. PT TAKES GABAPENTIN 300MG TID RATHER THAN QID LIKE DIRECTIONS SAY OTC: VITAMIN C ASPIRIN CENTRUM SILVER CALCIUM
--- NOTE | 2020-11-04 12:48 | Progress Note - Surgery ---
Subjective Date Seen by a Provider: Nov 04, 2020 Time Seen by a Provider: 08:42 Subjective/Events-last exam Patient extubated. Confused. Patient follows commands. Pain controlled. Wanting something to drink. Denies n/v fever sweats chills shortness of breath or chest pain. WBC down Focused Exam Lactate Level 11/02/20 13:27: Lactic Acid Level 4.28*H 11/02/20 16:25: Lactic Acid Level 2.78*H 11/02/20 22:05: Lactic Acid Level 1.74 Time of Focused Exam: 13:20 Objective Exam Vital Signs Date Time Temp Pulse Resp B/P (MAP) Pulse Ox O2 Delivery O2 Flow Rate FiO2 11/04/20 08:58 36.7 11/04/20 08:55 98 Nasal Cannula 3.00 11/04/20 07:35 98 Nasal Cannula 3.00 11/04/20 06:26 68 11/04/20 06:12 70 24 94 28 11/04/20 06:00 70 20 131/65 96 Mechanical Ventilator 28.00 11/04/20 05:00 67 13 150/71 96 Mechanical Ventilator 28.00 11/04/20 04:00 70 13 117/58 96 Mechanical Ventilator 28.00 11/04/20 03:00 70 12 118/58 96 Mechanical Ventilator 28.00 11/04/20 02:34 117/55 11/04/20 02:00 73 15 122/55 96 Mechanical Ventilator 30.00 11/04/20 01:00 73 11/04/20 01:00 73 12 116/57 96 Mechanical Ventilator 30.00 11/04/20 00:00 70 12 113/55 96 Mechanical Ventilator 30.00 11/03/20 23:46 37.2 11/03/20 23:40 37.2 70 12 109/52 96 Mechanical Ventilator 30 11/03/20 23:00 70 23 117/53 96 Mechanical Ventilator 30.00 11/03/20 22:00 37.0 70 18 114/48 96 Mechanical Ventilator 30 11/03/20 22:00 70 19 117/53 96 Mechanical Ventilator 30.00 11/03/20 21:48 105/36 11/03/20 21:46 36.9 70 20 107/35 97 Mechanical Ventilator 30 11/03/20 21:17 70 17 96 Mechanical Ventilator 30.00 11/03/20 21:05 71 12 97 30 11/03/20 21:00 70 12 117/52 97 Mechanical Ventilator 40.00 11/03/20 20:26 Mechanical Ventilator 40 11/03/20 20:21 37.0 11/03/20 20:00 37.0 70 12 112/52 98 Mechanical Ventilator 40.00 11/03/20 19:00 70 11/03/20 19:00 70 12 117/47 100 Mechanical Ventilator 50.00 11/03/20 18:56 70 13 99 50 11/03/20 18:45 70 125/44 11/03/20 18:43 70 125/44 11/03/20 18:00 70 29 125/44 99 Mechanical Ventilator 60.00 11/03/20 17:20 Mechanical Ventilator 100 11/03/20 17:20 36.1 16 100 Mechanical Ventilator 100 11/03/20 17:20 70 19 99 60 11/03/20 17:15 70 18 110/35 100 Mechanical Ventilator 60.00 11/03/20 17:10 16 100/45 (63) 100 Mechanical Ventilator 100 11/03/20 17:10 Mechanical Ventilator 100 11/03/20 17:00 71 12 100/45 100 Mechanical Ventilator 11/03/20 17:00 16 119/49 (72) 100 Mechanical Ventilator 100 11/03/20 16:55 Mechanical Ventilator 100 11/03/20 16:50 14 120/75 (90) 100 Mechanical Ventilator 100 11/03/20 16:45 70 120/75 94 Mechanical Ventilator 11/03/20 16:40 Mechanical Ventilator 100 11/03/20 16:40 36.0 12 100 Mechanical Ventilator 100 11/03/20 14:00 70 17 148/51 93 Nasal Cannula 2.00 11/03/20 13:00 73 17 139/51 92 Nasal Cannula 2.00 I & O 11/04/20 06:59 Intake Total 2800 ml Output Total 1065 ml Balance 1735 ml Capillary Refill : Less Than 3 SecondsLess Than 3 Seconds General Appearance: No Apparent Distress, Chronically ill, Obese HEENT: PERRL/EOMI, Normal ENT Inspection Neck: Normal Inspection, Other (right ij central line) Respiratory: Chest Non Tender, No Accessory Muscle Use, No Respiratory Distress Cardiovascular: Regular Rate, Rhythm, No JVD Gastrointestinal: soft, no organomegaly; No distended; tenderness (incisional, no signs of infection); No hernia Extremity: Non Tender, No Pedal Edema, Other (Right leg amputation) Neurologic/Psychiatric: Alert, Oriented x3 Skin: Normal Color, Warm/Dry; No Mottled Lymphatic: No Adenopathy Results Lab Laboratory Tests 11/03/20 17:51: Glucometer 228H 11/03/20 23:16: Glucometer 235H 11/04/20 02:30: White Blood Count 8.4, Red Blood Count 3.41L, Hemoglobin 10.4L, Hematocrit 32L, Mean Corpuscular Volume 94, Mean Corpuscular Hemoglobin 31, Mean Corpuscular Hemoglobin Concent 32, Red Cell Distribution Width 15.0H, Platelet Count 100L, M eva Platelet Volume 11.1, Immature Granulocyte % (Auto) 1, Neutrophils (%) (Auto) 91H, Lymphocytes (%) (Auto) 5L, Monocytes (%) (Auto) 4, Eosinophils (%) (Auto) 0, Basophils (%) (Auto) 0, Neutrophils # (Auto) 7.6, Lymphocytes # (Auto) 0.4L, Monocytes # (Auto) 0.3, Eosinophils # (Auto) 0.0, Basophils # (Auto) 0.0, Immature Granulocyte # (Auto) 0.0, Blood Gas Puncture Site ARTLINE, Blood Gas Patient Temperature 36.8, Arterial Blood pH 7.36L, Arterial Blood Partial Pressure CO2 45, Arterial Blood Partial Pressure O2 117H, Arterial Blood HCO3 25, Arterial Blood Total CO2 25.9, Arterial Blood Oxygen Saturation 99, Arterial Blood Base Excess -0.3, Louie Test UNKNOWN, Blood Gas Ventilator Setting YES, Blood Gas Inspired Oxygen 30, Sodium Level 138, Potassium Level 4.6, Chloride Level 105, Carbon Dioxide Level 21, Anion Gap 12, Blood Urea Nitrogen 51H, Creatinine 1.99H, Estimat Glomerular Filtration Rate 32, BUN/Creatinine Ratio 26, Glucose Level 241H, Calcium Level 7.3L, Corrected Calcium 8.6, Phosphorus Level 3.3, Magnesium Level 1.9, Total Bilirubin 0.4, Aspartate Amino Transf (A ST/SGOT) 21, Alanine Aminotransferase (ALT/SGPT) 19, Alkaline Phosphatase 47, Total Protein 4.9L, Albumin 2.4L Microbiology 11/02/20 MRSA Screen - Final, Complete MRSA not isolated 11/02/20 Blood Culture - Preliminary, Resulted No growth Assessment/Plan Assessment/Plan Assessment/Plan abdominal pain diffuse ischemic bowel Hyperglycemia Leukocytosis Covid - 19 s/p ex lap and ileocolic resection with side to side anastamosis Patient to have ice chips IV fluids IV ABX Confused but feel this is likely due to just being extubated follow urine output Clark for accurate i/o Clinical Quality Measures DVT/VTE Risk/Contraindication: Risk Factor Score Per Nursin RFS Level Per Nursing on Admit: 4+=Very High NEHAL GREENBERG DO Nov 04, 2020 12:48
--- NOTE | 2020-11-04 13:37 | Physical Therapy Evaluation ---
PT Evaluation-General Medical Diagnosis Admission Date Nov 02, 2020 at 13:41 Medical Diagnosis: sepsis/covid (+) Onset Date: Nov 02, 2020 Therapy Diagnosis Therapy Diagnosis: generalized weakness/debility Height/Weight Height (Feet): 5 Height (Inches): 9.00 Weight (Pounds): 226 Weight (Ounces): 9.6 Precautions Precautions/Isolations: Airborne Isolation, Fall Prevention Weight Bear Status Left Lower Extremity: Left Weight Bearing/Tolerated Referral Physician: Beatriz Reason for Referral: Evaluation/Treatment Medical History Pertinent Medical History: CABG, CAD, DM, Heart Failure, HTN, Neuropathy, PVD, Renal Insufficiency, Smoking Additional Medical History right BKA Current History EMS from home secondary to abdominal pain/s/p colon resection Reviewed History: Yes Social History Home: Single Level Current Living Status: Spouse Entry Into Home: Ramp Prior Prior Level of Function SCALE: Activities may be completed with or without assistive devices. 3-Dkjfmqrlgy-rqbrszp completes the activity by him/herself with no assistance from a helper. 5-Set-up or Clean-up Assistance-helper sets up or cleans up; patient completes activity. [place] assists only prior to or following the activity. 4-Supervision or Touching Assistance-helper provides verbal cues and/or touching/steadying and/or contact guard assistance as patient completes activit y. Assistance may be provided throughout the activity or intermittently. 3-Partial/Moderate Assistance-helper does LESS THAN HALF the effort. [place] lifts, holds or supports trunk or limbs, but provides less than half the effort. 2-Substantial/Maximal Assistance-helper does MORE THAN HALF the effort. [place] lifts or holds trunk or limbs and provides more than half the effort. 5-Eumtozaqn-vlhujx does ALL the effort. Patient does none of the effort to complete the activity. Or, the assistance of 2 or more helpers is required for the patient to complete the activity. If activity was not attempted, code reason: 7-Patient Refused. 9-Not Applicable-not attempted and the patient did not perform the activity before the current illness, exacerbation or injury. 10-Not Attempted due to Environmental Limitations-(lack of equipment, weather restraints, etc.). 88-Not Attempted due to Medical Conditions or Safety Concerns. Bed Mobility: 5 Transfers (B,C,W/C): 5 Gait: 5 Indoor Mobility (Ambulation): Independent Prior Devices Use: Manual wheelchair, Walker PT Evaluation-Current Subjective Patient reluctantly agrees to PT. Objective Patient Orientation: Person, Time Attachments: Oxygen, Clark Catheter, IV ROM/Strength ROM Lower Extremities bilateral LE WFL Strength Lower Extremities 3/5 grossly bilateral LE Integumentary/Posture Integumentary refer to nursing notes Bladder Incontinence: Clark Cath Neuromuscular (Tone, Coordination, Reflexes) grossly intact Sensory Vision: Functional Hearing: Impaired Sensation Right Lower Extremit: Impaired Sensation Left Lower Extremity: Impaired Transfers Roll Left to Right (QC): 1 Sit to Lying (QC): 88 Lying to Sitting/Side of Bed(Q: 88 Sit to Stand (QC): 88 patient extubated this a.m. Gait Does the Patient Walk?: No and Walking Goal IS indicated Wheelchair Training Does the Pt Use a Wheelchair?: Yes Assessment/Needs 85 y.o. male, will benefit from skilled PT to address functional strength and mobility to improve current LOF to safely return to home or care facility at maximum LOF. Rehab Potential: Guarded PT Short Term Goals Short Term Goals Time Frame: Nov 23, 2020 Roll Left & Right: 3 Sit to lyin Lying to sitting on side of be: 3 Sit to stand: 3 Chair/xqi-cl-wqcau transfer: 3 Toilet transfer: 3 Walk 10 feet: 3 PT Group Home Goals Electromechanical Equipment Assembler Goals PT Electromechanical Equipment Assembler Goals Time Frame: Nov 30, 2020 Roll Left & Right (QC): 6 Sit to Lying (QC): 6 Lying-Sitting on Side/Bed(QC): 6 Sit to Stand (QC): 6 Chair/Uiq-ps-Ekwby Xfer(QC): 6 Toilet Transfer (QC): 6 Car Transfer (QC): 6 Does the Patient Walk: Yes Walk 10 feet (QC): 6 Walk 50ft with 2 Turns (QC): 6 PT Plan Problem List Problem List: Activity Tolerance, Functional Strength, Safety, Balance, Gait, Transfer, Bed Mobility Treatment/Plan Treatment Plan: Continue Plan of Care Treatment Plan: Bed Mobility, Education, Functional Activity [place], Functional Strength, Gait, Safety, Therapeutic Exercise, Transfers Treatment Duration: Nov 30, 2020 Frequency: 6 times per week Estimated Hrs Per Day: .25 hour per day Time/GCodes Time In: 1156 Time Out: 1208 Total Billed Treatment Time: 12 [facility] DH[facility] Nov 04, 2020 13:37
[2020-11-04] MEDS: ONDANSETRON 4 MG/2 ML (SDV) Z0FRAN IV PRN (22:58)
[2020-11-05] MEDS: LACTATED RINGERS 1,000 ML IV SCH ×4 (03:52→23:16)
[2020-11-05] MEDS: MEROPENEM 500 MG/SWFI 10 ML IV PUSH IV SCH ×6 (03:52→20:19)
[2020-11-05 04:06] LABS: BASOPHILS % (AUTO) 0 % (0-10); EOSINOPHILS % (AUTO) 0 % (0-10); HEMATOCRIT 36 % (40-54); HEMOGLOBIN 11.5 g/dL (13.3-17.7); LYMPHOCYTES # (AUTO) 0.5 10^3/uL (1.0-4.0); LYMPHOCYTES % (AUTO) 5 % (12-44); MEAN CORPUSCULAR HEMOGLOBIN 30 pg (25-34); MEAN CORPUSCULAR HGB CONC 32 g/dL (32-36); MEAN CORPUSCULAR VOLUME 94 fL (80-99); MEAN PLATELET VOLUME 10.3 fL (9.0-12.2); MONOCYTES # (AUTO) 0.4 10^3/uL (0.0-1.0); MONOCYTES % (AUTO) 4 % (0-12); NEUTROPHILS # (AUTO) 9.2 10^3/uL (1.8-7.8); NEUTROPHILS % (AUTO) 90 % (42-75); PLATELET COUNT 115 10^3/uL (130-400); WHITE BLOOD COUNT 10.2 10^3/uL (4.3-11.0)
--- NOTE | 2020-11-05 04:28 | Pulmonary Progress Note ---
Subjective Time Seen by a Provider: 04:27 Sepsis Event Evaluation Height, Weight, BMI Height: 5'9.00" Weight: 226lbs. 9.6oz. 102.633004lo; 32.00 BMI Method:Stated Focused Exam Lactate Level 11/02/20 13:27: Lactic Acid Level 4.28*H 11/02/20 16:25: Lactic Acid Level 2.78*H 11/02/20 22:05: Lactic Acid Level 1.74 Time of Focused Exam: 13:20 Exam Exam Vital Signs Date Time Temp Pulse Resp B/P (MAP) Pulse Ox O2 Delivery O2 Flow Rate FiO2 11/04/20 20:10 36.4 11/04/20 20:00 98 Nasal Cannula 3.00 11/04/20 19:00 70 11/04/20 18:00 70 21 94 Nasal Cannula 3.00 11/04/20 17:00 70 15 94 Nasal Cannula 3.00 11/04/20 16:34 36.9 11/04/20 16:00 70 18 95 Nasal Cannula 3.00 11/04/20 15:00 70 18 92 Nasal Cannula 3.00 11/04/20 14:00 73 17 95 Nasal Cannula 3.00 11/04/20 13:00 67 18 95 Nasal Cannula 3.00 11/04/20 12:37 70 11/04/20 12:00 70 20 95 Nasal Cannula 3.00 11/04/20 11:00 70 19 95 Nasal Cannula 3.00 11/04/20 10:00 70 20 96 Nasal Cannula 3.00 11/04/20 09:00 67 26 97 Nasal Cannula 3.00 11/04/20 08:58 36.7 11/04/20 08:55 98 Nasal Cannula 3.00 11/04/20 08:00 70 15 97 Nasal Cannula 3.00 11/04/20 07:35 98 Nasal Cannula 3.00 11/04/20 07:00 Automatic Cuff 11/04/20 07:00 73 16 96 Mechanical Ventilator 28.00 11/04/20 06:26 68 11/04/20 06:12 70 24 94 28 11/04/20 06:00 70 20 131/65 96 Mechanical Ventilator 28.00 11/04/20 05:00 67 13 150/71 96 Mechanical Ventilator 28.00 I & O 11/05/20 07:00 Intake Total 150 ml Output Total 1100 ml Balance -950 ml Height & Weight Height: 5'9.00" Weight: 226lbs. 9.6oz. 102.367232mp; 32.00 BMI Method:Stated General Appearance: No Apparent Distress, Chronically ill, Obese HEENT: PERRL/EOMI, Normal ENT Inspection Neck: Normal Inspection, Other (right ij central line) Respiratory: Chest Non Tender, No Accessory Muscle Use, No Respiratory Distress Cardiovascular: Regular Rate, Rhythm, No JVD Capillary Refill: Less Than 3 Seconds Gastrointestinal: soft, no organomegaly; No distended; tenderness (incisional, no signs of infection); No hernia Extremity: Non Tender, No Pedal Edema, Other (Right leg amputation) Neurologic/Psychiatric: Alert, Oriented x3 Skin: Normal Color, Warm/Dry; No Mottled Lymphatic: No Adenopathy Results Lab Laboratory Tests 11/04/20 02:30 11/05/20 04:00 Assessment/Plan Assessment/Plan Acute respiratory failure after Surgery -Pt is COVID positive -Extubated yesterday -D/C arterial line improving Septic Shock Abdominal pain MERNA on mild CKD -- improving metabolic lactic acidosis -- improving Continue on IV abx Await cultures Lactic acid improved Procal is 29 Concern for ischemic colitis, surgery consulted appreciate recs s/p surgery Lipase negative Creatinine stable but UOP marginal, trend COVID19 with acute hypoxic respiratory failure Now on oxygen, Will start remdesivir and decadron Will start convalescent plasma, discussed EUA status with patient Poorly controlled IDDMII BS improved today, trend SSI ordered CAD HTN HLD Hold home meds for now given high risk for surgery in the next 24 hours and mild hypotension in the ER BRETT HOPKINS DO Nov 05, 2020 04:28
[2020-11-05 04:39] LABS: ALBUMIN 2.8 GM/DL (3.2-4.5); POTASSIUM 4.6 MMOL/L (3.6-5.0)
[2020-11-05 04:40] LABS: CALCIUM 7.7 MG/DL (8.5-10.1)
[2020-11-05 04:41] LABS: TOTAL PROTEIN 4.9 GM/DL (6.4-8.2)
[2020-11-05 04:43] LABS: BILIRUBIN,TOTAL 0.5 MG/DL (0.1-1.0)
[2020-11-05 04:45] LABS: CREATININE SERUM 1.64 MG/DL (0.60-1.30); PHOSPHORUS 3.5 MG/DL (2.3-4.7)
[2020-11-05 04:48] LABS: MAGNESIUM 2.2 MG/DL (1.6-2.4)
--- NOTE | 2020-11-05 05:40 | NUR ---
Received report from ICU Nurse CANDICE May. Agreed with previous nurse assessment. All needs met at this time.
[2020-11-05 06:47] VITALS: BP 169/79
[2020-11-05] MEDS: inSUlin ASPART (NovoLOG) 1 UNIT/0.01 ML (CHARGE PER UNIT) SC SCH ×4 (06:55→21:39)
[2020-11-05 08:00] VITALS: BP 185/81
[2020-11-05] MEDS ORDERED: MEROPENEM 500 MG VIAL (MERREM) IV ONE ×2 (08:11→20:11)
[2020-11-05] MEDS ORDERED: WATER (STERILE) FOR INJECTION 10 ML ONE (08:11)
[2020-11-05] MEDS: FAMOTIDINE 20MG/2ML IV (PEPCID) IV SCH (09:14)
[2020-11-05] MEDS: REMDESIVIR INJ 100 MG in NS (IVPB) 230 ML IV SCH (09:16)
--- NOTE | 2020-11-05 11:58 | Physical Therapy Daily Note ---
PT Daily Note-Current Subjective Patient agrees to exercises only and adamantly declined EOB activity due to abdominal pain. Pain Numeric Pain Scale: 8 Location: Medial, Lower Location Body Site: Abdomen Pain Description: Pressure Comment: RN notified Mental Status Patient Orientation: Confused Attachments: Oxygen, Clark Catheter, IV Transfers SCALE: Activities may be completed with or without assistive devices. 1-Phzuyrlocl-esohhkw completes the activity by him/herself with no assistance from a helper. 5-Set-up or Clean-up Assistance-helper sets up or cleans up; patient completes activity. [place] assists only prior to or following the activity. 4-Supervision or Touching Assistance-helper provides verbal cues and/or touching/steadying and/or contact guard assistance as patient completes activity. Assistance may be provided throughout the activity or intermittently. 3-Partial/Moderate Assistance-helper does LESS THAN HALF the effort. [place] lifts, holds or supports trunk or limbs, but provides less than half the effort. 2-Substantial/Maximal Assistance-helper does MORE THAN HALF the effort. [place] lifts or holds trunk or limbs and provides more than half the effort. 6-Fyngxcmvy-ewzsut does ALL the effort. Patient does none of the effort to complete the activity. Or, the assistance of 2 or more helpers is required for the patient to complete the activity. If activity was not attempted, code reason: 7-Patient Refused. 9-Not Applicable-not attempted and the patient did not perform the activity before the current illness, exacerbation or injury. 10-Not Attempted due to Environmental Limitations-(lack of equipment, weather restraints, etc.). 88-Not Attempted due to Medical Conditions or Safety Concerns. Roll Left & Right (QC): 2 (Patient assisted with use of rails to reposition up in bed.) Weight Bearing Left Lower Extremity: Left Weight Bearing/Tolerated Exercises Supine Ex: Ankle pumps (left LE), Quad Set, Heel Slides, Straight leg raise, Hip abd/add Supine Reps: 10 Assessment Patient ceased treatment after exercises. Patient HOB elevated for comfort. Increase activity as tolerated by patient. PT Short Term Goals Short Term Goals Time Frame: Nov 23, 2020 Roll Left & Right: 3 Sit to lyin Lying to sitting on side of be: 3 Sit to stand: 3 Chair/rhh-bf-trkgr transfer: 3 Toilet transfer: 3 Walk 10 feet: 3 PT Correction Goals Correction Goals PT Director Funeral Goals Time Frame: Nov 30, 2020 Roll Left & Right (QC): 6 Sit to Lying (QC): 6 Lying-Sitting on Side/Bed(QC): 6 Sit to Stand (QC): 6 Chair/Qlk-mj-Oqmve Xfer(QC): 6 Toilet Transfer (QC): 6 Car Transfer (QC): 6 Does the Patient Walk: Yes Walk 10 feet (QC): 6 Walk 50ft with 2 Turns (QC): 6 PT Plan Treatment/Plan Treatment Plan: Continue Plan of Care Treatment Plan: Bed Mobility, Education, Functional Activity Katlyn, Functional Strength, Gait, Safety, Therapeutic Exercise, Transfers Treatment Duration: Nov 30, 2020 Frequency: 6 times per week Estimated Hrs Per Day: .25 hour per day Time/GCodes Time In: 1120 Time Out: 1132 Total Billed Treatment Time: 12 Total Billed Treatment 1 visit EX 12 min DHARMESH PAYNE PT Nov 05, 2020 11:58
[2020-11-05 12:00] VITALS: BP 146/73
[2020-11-05] MEDS: morphine INJ 4 MG/ML 1 ML (VIAL/SYRINGE) IV PRN (12:52)
--- NOTE | 2020-11-05 15:32 | NUR ---
INGE/SS following patient for discharge planning. During discharge planning meeting, the possibility for inpatient rehab was discussed due to patient's current level of functioning. February she will evaluate the patient and let this sw know. INGE/SS attempted to contact the patient via room phone. No answer. This sw will attempt to call at a later time. CM/SS will continue to follow.
[2020-11-05 15:43] VITALS: BP 182/84
[2020-11-05 19:34] VITALS: BP 174/74
--- NOTE | 2020-11-05 19:39 | Progress Note - Surgery ---
Subjective Date Seen by a Provider: Nov 05, 2020 Time Seen by a Provider: 16:40 Subjective/Events-last exam Patient slightly confused. No nausea or vomiting. Tolerating ice chips. Wanting food. Passing small amout of flatus, no bm. Urine output adequate. Pain controlled. No breathing issues. Denies fever sweats chills shortness of breath or chest pain. Focused Exam Lactate Level 11/02/20 22:05: Lactic Acid Level 1.74 Time of Focused Exam: 13:20 Objective Exam Vital Signs Date Time Temp Pulse Resp B/P (MAP) Pulse Ox O2 Delivery O2 Flow Rate FiO2 11/05/20 15:43 36.2 74 20 182/84 (116) 95 High Flow N/C 3.00 11/05/20 12:00 36.0 69 20 146/73 (97) 97 High Flow N/C 3.00 11/05/20 08:00 97 High Flow N/C 3.00 11/05/20 08:00 35.4 74 18 185/81 (115) 97 High Flow N/C 3.00 11/05/20 06:47 36.0 70 20 169/79 (109) 96 High Flow N/C 3.00 11/05/20 05:00 70 19 94 Nasal Cannula 3.00 157/71 11/05/20 04:00 70 17 95 Nasal Cannula 3.00 161/65 11/05/20 03:00 70 16 95 Nasal Cannula 3.00 149/67 11/05/20 02:00 73 17 95 Nasal Cannula 3.00 155/66 11/05/20 01:00 70 17 95 Nasal Cannula 3.00 155/69 11/05/20 01:00 70 11/05/20 00:00 70 19 93 Nasal Cannula 3.00 147/60 11/04/20 23:00 70 22 93 Nasal Cannula 3.00 170/63 11/04/20 22:00 70 24 94 Nasal Cannula 3.00 154/67 11/04/20 21:00 70 22 95 Nasal Cannula 3.00 139/62 11/04/20 20:10 36.4 11/04/20 20:00 98 Nasal Cannula 3.00 11/04/20 20:00 70 22 95 Nasal Cannula 3.00 151/64 I & O 11/05/20 07:00 Intake Total 150 ml Output Total 1600 ml Balance -1450 ml Capillary Refill : Less Than 3 SecondsLess Than 3 Seconds General Appearance: No Apparent Distress, Chronically ill, Obese HEENT: PERRL/EOMI, Normal ENT Inspection Neck: Normal Inspection, Non Tender, Other (right ij central line) Respiratory: Chest Non Tender, No Accessory Muscle Use, No Respiratory Distress Cardiovascular: Regular Rate, Rhythm, No JVD Gastrointestinal: soft, no organomegaly; No distended; tenderness (incisional, no signs of infection); No hernia Extremity: Non Tender ( right bka), No Pedal Edema Neurologic/Psychiatric: Alert (x2) Skin: Normal Color, Warm/Dry; No Mottled Lymphatic: No Adenopathy Results Lab Laboratory Tests 11/04/20 22:55: Glucometer 223H 11/05/20 04:00: White Blood Count 10.2, Red Blood Count 3.85L, Hemoglobin 11.5L, Hematocrit 36L, Mean Corpuscular Volume 94, Mean Corpuscular Hemoglobin 30, Mean Corpuscular Hemoglobin Concent 32, Red Cell Distribution Width 15.3H, Platelet Count 115L, Mean Platelet Volume 10.3, Immature Granulocyte % (Auto) 1, Neutrophils (%) (Auto) 90H, Lymphocytes (%) (Auto) 5L, Monocytes (%) (Auto) 4, Eosinophils (%) (Auto) 0, Basophils (%) (Auto) 0, Neutrophils # (Auto) 9.2H, Lymphocytes # (Auto) 0.5L, Monocytes # (Auto) 0.4, Eosinophils # (Auto) 0.0, Basophils # ( Auto) 0.0, Immature Granulocyte # (Auto) 0.1, Sodium Level 141, Potassium Level 4.6, Chloride Level 105, Carbon Dioxide Level 24, Anion Gap 12, Blood Urea Nitrogen 53H, Creatinine 1.64H, Estimat Glomerular Filtration Rate 40, BUN/Creatinine Ratio 32, Glucose Level 223H, Calcium Level 7.7L, Corrected Calcium 8.7, Phosphorus Level 3.5, Magnesium Level 2.2, Total Bilirubin 0.5, Aspartate Amino Transf (AST/SGOT) 46H, Alanine Aminotransferase (ALT/SGPT) 27, Alkaline Phosphatase 61, Total Protein 4.9L, Albumin 2.8L, Triglycerides Level 280H 11/05/20 12:24: Glucometer 206H 11/05/20 17:26: Glucometer 237H Microbiology 11/03/20 Gram Stain - Final, Resulted 11/03/20 Sputum Culture - Preliminary, Resulted No growth 11/02/20 Urine Culture - Final, Complete Aerococcus viridans Mixed Bacterial Anita 11/02/20 Blood Culture - Preliminary, Resulted No growth Assessment/Plan Assessment/Plan Assessment/Plan abdominal pain diffuse ischemic bowel Hyperglycemia Leukocytosis Covid - 19 s/p ex lap and ileocolic resection with side to side anastamosis Patient to start clears IV fluids IV ABX Confused Oriented x 2 dc reyes IS Clinical Quality Measures DVT/VTE Risk/Contraindication: Risk Factor Score Per Nursin RFS Level Per Nursing on Admit: 4+=Very High NEHAL GREENBERG DO Nov 05, 2020 19:39
[2020-11-05 23:22] VITALS: BP 175/75
[2020-11-06] MEDS ORDERED: MEROPENEM 500 MG VIAL (MERREM) IV ONE ×3 (03:43→20:23)
[2020-11-06] MEDS ORDERED: WATER (STERILE) FOR INJECTION 10 ML ONE ×3 (03:43→20:23)
[2020-11-06] MEDS: ONDANSETRON 4 MG/2 ML (SDV) Z0FRAN IV PRN ×2 (03:54→21:36)
[2020-11-06] MEDS: morphine INJ 4 MG/ML 1 ML (VIAL/SYRINGE) IV PRN ×3 (03:54→21:25)
[2020-11-06] MEDS: LACTATED RINGERS 1,000 ML IV SCH ×3 (03:59→16:53)
[2020-11-06] MEDS: MEROPENEM 500 MG/SWFI 10 ML IV PUSH IV SCH ×6 (03:59→21:21)
[2020-11-06 04:00] VITALS: BP 185/80
--- NOTE | 2020-11-06 05:01 | OPERATIVE REPORT ---
DATE OF SERVICE: 11/03/2020 PREOPERATIVE DIAGNOSES: Abdominal pain and ischemic bowel. POSTOPERATIVE DIAGNOSES: Ischemic bowel and internal hernia. PROCEDURE: Exploratory laparotomy and ileocolonic resection with xvla-cl-pljk anastomosis. SURGEON: Nehal Henderson DO FOOD SERVICE ASSOCIATE: Dr. Lemons, assisted in retraction, dissection and closure. ANESTHESIA: General. ESTIMATED BLOOD LOSS: Minimal. COMPLICATIONS: None. SPECIMENS: Ileum and colon. INDICATIONS: The patient is an 85-year-old male who presented to the hospital with abdominal pain. He is COVID positive and having abdominal pain on exam and findings suggestive of ischemic bowel. The patient and his elected not to proceed with surgery at first time of admission. The patient and upon reexamination and discussion, wished to proceed at this time. He understands risks and benefits. Consent was signed in the chart. DESCRIPTION OF PROCEDURE: The patient was taken to the operating suite, was prepped and draped in sterile fashion. Surgical pause was performed. A midline incision was made in the midline. Skin and cautery used to dissect down to the subcutaneous tissue. The fascia was then opened and the abdomen was then entered. Multiple adhesions were present, which a sharp and cautery dissection was used to dissect taking down the adhesions are some murky fluid within the abdomen. The small bowel was then ran, which the distal portion of the small bowel was found to be ischemic. The ileocolonic anastomosis was located and brought out through the incision. The colon had normal appearance, but the small bowel up to the anastomosis was all ischemic. Small bowel had multiple adhesions, which were then continued to be dissected. The small bowel was then ran and there was an internal hernia with a fixated point towards the retroperitoneum. These adhesions were then taken down as well, mobilizing the entire small bowel. The internal hernia caused the rotation of the mesentery that caused this portion of the small bowel to become ischemic, which is the distal part of the ileum. The small bowel were viable was then dissected around and a MARCO A stapler was then fired. LigaSure was then used to divide the mesentery removing the ischemic bowel. The colon was then mobilized and brought out further through the incision and just distal to the anastomosis the colon was dissected around as well. A MARCO A stapler was then fired, removing this portion as well, removing the specimen. A islg-iu-tpua anastomosis was then performed using a MARCO A stapler. The mesenteric defect was then closed using 3-0 Vicryl pop-offs. No other pathology noted within the abdomen. The small bowel was then ran from the ligament of Treitz all the way to the anastomosis without any other pathology noted. Rest of the colon had normal appearance. The abdomen was then irrigated with copious amounts of irrigation and suctioned. The fascia was then closed using 1-0 looped PDS. Skin was then closed using luis. The area was washed and dried and sterile bandages were applied. The patient tolerated procedure well without any complications and taken to recovery room in stable condition. Job ID: [id number] DocumentID: [id number] Dictated Date: 11/05/2020 21:56:24 Warp Splitter Date: 11/06/2020 05:00:56 Dictated By: NEHAL HENDERSON DO
[2020-11-06] MEDS: inSUlin ASPART (NovoLOG) 1 UNIT/0.01 ML (CHARGE PER UNIT) SC SCH ×4 (05:40→21:22)
[2020-11-06 05:53] LABS: BASOPHILS % (AUTO) 0 % (0-10); EOSINOPHILS % (AUTO) 0 % (0-10); HEMATOCRIT 38 % (40-54); HEMOGLOBIN 11.9 g/dL (13.3-17.7); LYMPHOCYTES # (AUTO) 0.5 10^3/uL (1.0-4.0); LYMPHOCYTES % (AUTO) 6 % (12-44); MEAN CORPUSCULAR HEMOGLOBIN 30 pg (25-34); MEAN CORPUSCULAR HGB CONC 32 g/dL (32-36); MEAN CORPUSCULAR VOLUME 95 fL (80-99); MEAN PLATELET VOLUME 10.4 fL (9.0-12.2); MONOCYTES # (AUTO) 0.6 10^3/uL (0.0-1.0); MONOCYTES % (AUTO) 6 % (0-12); NEUTROPHILS # (AUTO) 8.2 10^3/uL (1.8-7.8); NEUTROPHILS % (AUTO) 87 % (42-75); PLATELET COUNT 131 10^3/uL (130-400); WHITE BLOOD COUNT 9.3 10^3/uL (4.3-11.0)
[2020-11-06 06:04] LABS: ALBUMIN 2.7 GM/DL (3.2-4.5); POTASSIUM 4.3 MMOL/L (3.6-5.0)
[2020-11-06 06:07] LABS: TOTAL PROTEIN 5.3 GM/DL (6.4-8.2)
[2020-11-06 06:09] LABS: BILIRUBIN,TOTAL 0.6 MG/DL (0.1-1.0)
[2020-11-06 06:11] LABS: CREATININE SERUM 1.4 MG/DL (0.60-1.30)
[2020-11-06 06:14] LABS: MAGNESIUM 2.2 MG/DL (1.6-2.4)
--- NOTE | 2020-11-06 07:18 | NUR ---
PATIENT HAD ONLY SLIGHT OUTPUT SINCE CATHETER REMOVAL. PT BLADDER SCANNED AT [address] WYMAN NOTIFIED OF SITUATION. NEW ORDERS TO HOLD IV FLUIDS.
[2020-11-06 08:00] VITALS: BP 177/82
[2020-11-06] MEDS ORDERED: hydrALAZINE (APRESOLINE) 25 MG TAB PO PRN (08:30)
[2020-11-06] MEDS: FAMOTIDINE 20MG/2ML IV (PEPCID) IV SCH (08:52)
[2020-11-06] MEDS: lisINopril 20 MG (PRINIVIL) TABLET PO SCH (09:44)
[2020-11-06] MEDS: ATENOLOL 25 MG (TENORMIN) TAB PO SCH (09:44)
[2020-11-06] MEDS: FINASTERIDE (PROSCAR) 5 MG TAB PO SCH (09:46)
[2020-11-06] MEDS: SERTRALINE 50 MG (ZOLOFT) TABLET PO SCH (09:46)
[2020-11-06] MEDS: REMDESIVIR INJ 100 MG in NS (IVPB) 230 ML IV SCH (09:47)
--- NOTE | 2020-11-06 10:34 | NUR ---
THIS RN BLADDER SCANNED PT AT 0910 AND HE HAD OVER 1000 ML IN BLADDER PER SCAN. RN STRAIGHT CATHED PT WITH STERILE TECHNIQUE AND HE HAD OVER 1000 ML OF URINE OUT. PT REPORTED HE FELT MUCH BETTER AND IS RESTING IN HIS BED.
--- NOTE | 2020-11-06 10:40 | Physical Therapy Daily Note ---
PT Daily Note-Current Subjective Patient in bed pre tx, agrees to PT, has 10/10 pain in abdomen but patient states he is ok and doesn't need to notify the nurse of his pain at this time. Appearance Patient in bed post tx with nurse call, phone, tray, all needs met. Mental Status Patient Orientation: Person, Place, Situation Attachments: Oxygen Transfers SCALE: Activities may be completed with or without assistive devices. 9-Astpqrcfvy-ytdtnxb completes the activity by him/herself with no assistance from a helper. 5-Set-up or Clean-up Assistance-helper sets up or cleans up; patient completes activity. [place] assists only prior to or following the activity. 4-Supervision or Touching Assistance-helper provides verbal cues and/or touching/steadying and/or contact guard assistance as patient completes activity. Assistance may be provided throughout the activity or intermittently. 3-Partial/Moderate Assistance-helper does LESS THAN HALF the effort. [place] lifts, holds or supports trunk or limbs, but provides less than half the effort. 2-Substantial/Maximal Assistance-helper does MORE THAN HALF the effort. [place] lifts or holds trunk or limbs and provides more than half the effort. 4-Nubzzlnct-ncsrsr does ALL the effort. Patient does none of the effort to complete the activity. Or, the assistance of 2 or more helpers is required for the patient to complete the activity. If activity was not attempted, code reason: 7-Patient Refused. 9-Not Applicable-not attempted and the patient did not perform the activity before the current illness, exacerbation or injury. 10-Not Attempted due to Environmental Limitations-(lack of equipment, weather restraints, etc.). 88-Not Attempted due to Medical Conditions or Safety Concerns. Roll Left & Right (QC): 3 Sit to Lying (QC): 3 Lying to Sitting/Side of Bed(Q: 3 Patient supine to sit with min assist, he is able to sit for about 10 min before needing to lay back down. Patient gets slightly SOB with sitting but recovers with purse lip breathing. Would like to get patient to transfer to recliner but he states he doesn't think he is ready for that yet. Sit to supine min assist and scoot up in bed min assist. Weight Bearing Left Lower Extremity: Left Weight Bearing/Tolerated Exercises Supine Ex: Ankle pumps (LLE), Quad Set, Glut sets, Heel Slides Supine Reps: 20 Treatments bed mobility, sitting, LE exercise Assessment Current Status: Fair Progress slowly improving functional mobility PT Short Term Goals Short Term Goals Time Frame: Nov 23, 2020 Roll Left & Right: 3 Sit to lyin Lying to sitting on side of be: 3 Sit to stand: 3 Chair/jyd-wr-pmlgz transfer: 3 Toilet transfer: 3 Walk 10 feet: 3 PT Shelter Goals Ship Boss Goals PT Shelter Goals Time Frame: Nov 30, 2020 Roll Left & Right (QC): 6 Sit to Lying (QC): 6 Lying-Sitting on Side/Bed(QC): 6 Sit to Stand (QC): 6 Chair/Ona-zy-Akvea Xfer(QC): 6 Toilet Transfer (QC): 6 Car Transfer (QC): 6 Does the Patient Walk: Yes Walk 10 feet (QC): 6 Walk 50ft with 2 Turns (QC): 6 PT Plan Problem List Problem List: Activity Tolerance, Functional Strength, Safety, Balance, Gait, Transfer, Bed Mobility, ROM Treatment/Plan Treatment Plan: Continue Plan of Care Treatment Plan: Bed Mobility, Education, Functional Activity [place], Functional Strength, Gait, Safety, Therapeutic Exercise, Transfers Treatment Duration: Nov 30, 2020 Frequency: 6 times per week Estimated Hrs Per Day: .25 hour per day Safety Risks/Education Patient Education: Correct Positioning, Safety Issues Teaching Recipient: Patient Teaching Methods: Demonstration, Discussion Response to Teaching: Reinforcement Needed Time/GCodes Time In: 904 Time Out: 921 Total Billed Treatment Time: 17 Total Billed Treatment 1 visit FA NICOLE FERGUSON PT Nov 06, 2020 10:40
[2020-11-06 12:00] VITALS: BP 156/70
--- NOTE | 2020-11-06 15:11 | Progress Note - Hospitalist ---
Subjective HPI/CC On Admission Date Seen by Provider: Nov 06, 2020 Time Seen by Provider: 10:30 Pt is an 85yoCM with a PMH of IDDMII, HTN, CAD s/p CABG. ischemic colitis who presented to the ER due to abdominal pain. He states that he has been feeling poorly with abdominal pain for the past two days. He has had nausea and vomiting with this as well. He did not take his insulin last night because of this. His was recently admitted to the hospital due to COVID but she has been home. He denies any cough, SOB, fever, or chills. His only complaint is abdominal pain. Subjective/Events-last exam He denies any complaints today. He says he is feeling well. He is passing gas. He has not had a bowel movement. He denies shortness of breath and cough. Focused Exam Time of Focused Exam: 13:20 Objective Exam Vital Signs Vital Signs Date Time Temp Pulse Resp B/P (MAP) Pulse Ox O2 Delivery O2 Flow Rate FiO2 11/06/20 12:00 36.0 70 18 156/70 (98) 96 High Flow N/C 3.00 11/04/20 06:12 28 Capillary Refill : Less Than 3 SecondsLess Than 3 Seconds General Appearance: No Apparent Distress, Obese Respiratory: Lungs Clear, Normal Breath Sounds, No Respiratory Distress Cardiovascular: Regular Rate, Rhythm, No Edema, No Murmur Gastrointestinal: Normal Bowel Sounds, Non Tender, Soft Extremity: Normal Inspection, Non Tender, No Pedal Edema Neurologic/Psychiatric: Alert, Oriented x3, No Motor/Sensory Deficits, Normal Mood/Affect Skin: Normal Color, Warm/Dry Results/Procedures Lab Laboratory Tests 11/06/20 05:41 Patient resulted labs reviewed. Imaging: Reviewed Imaging Report Assessment/Plan Assessment and Plan Assess & Plan/Chief Complaint Acute respiratory failure due to COVID-19 Decadron Remdesivir s/p 1 unit convalescent plasma Ischemic colitis Surgery following, appreciate assistance s/p colectomy Stop Meropenem MERNA on CKD Improved Stop IV fluids T2DM Levemir SSI BPH Urinary retention Continue home meds Bladder scan as needed Straight cath as needed If persists, will replace reyes CAD HTN HLD Resume home meds Debility PT/OT Consider swing bed DVT Prophylaxis: start Lovenox when ok with surgery Septic shock, resolved Diagnosis/Problems Diagnosis/Problems (1) Ischemic colitis Status: Acute (2) S/P colectomy Status: Acute (3) Acute respiratory failure due to COVID-19 Status: Acute (4) T2DM (type 2 diabetes mellitus) Status: Acute Qualifiers: 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
[2020-11-06 16:32] VITALS: BP 160/73
[2020-11-06] MEDS: TAMSULOSIN 0.4 MG (FLOMAX) CAP PO SCH (18:12)
[2020-11-06] MEDS: ENOXAPARIN 40 MG/0.4 ML (LOVENOX) SYR SC SCH (18:12)
[2020-11-06 20:17] VITALS: BP 163/74
--- NOTE | 2020-11-06 21:45 | Progress Note - Surgery ---
Subjective Date Seen by a Provider: Nov 06, 2020 Time Seen by a Provider: 17:00 Subjective/Events-last exam Clark had to be replaced due to retention. Tolerating liquids. Having flatus, no bm. Pain controlled. No new complaints. Denies n/v fever sweats chills shortness of breath or chest pain. Focused Exam Time of Focused Exam: 13:20 Objective Exam Vital Signs Date Time Temp Pulse Resp B/P (MAP) Pulse Ox O2 Delivery O2 Flow Rate FiO2 11/06/20 20:17 36.2 71 18 163/74 (103) 97 High Flow N/C 3.00 11/06/20 16:32 36.0 70 20 160/73 (102) 98 High Flow N/C 3.00 11/06/20 12:00 36.0 70 18 156/70 (98) 96 High Flow N/C 3.00 11/06/20 08:00 36.9 70 18 177/82 (113) 97 High Flow N/C 3.00 11/06/20 08:00 High Flow N/C 3.00 11/06/20 04:00 36.2 70 24 185/80 (115) 94 High Flow N/C 3.00 11/05/20 23:22 36.0 70 20 175/75 (108) 97 High Flow N/C 3.00 I & O 11/06/20 06:59 Intake Total 1310 ml Output Total 685 ml Balance 625 ml Capillary Refill : Less Than 3 SecondsLess Than 3 Seconds General Appearance: No Apparent Distress, Obese HEENT: PERRL/EOMI, Normal ENT Inspection Neck: Normal Inspection, Non Tender, Other (right ij central line) Respiratory: Chest Non Tender, No Accessory Muscle Use, No Respiratory Distress Cardiovascular: Regular Rate, Rhythm, No Edema, No Murmur Gastrointestinal: soft, no organomegaly, distended (minimal), tenderness (incisional, no signs of infection); No hernia Extremity: Normal Inspection, Non Tender, No Pedal Edema, Other (right bka) Neurologic/Psychiatric: Alert (oriented x 2), No Motor/Sensory Deficits, Normal Mood/Affect Skin: Normal Color, Warm/Dry Lymphatic: No Adenopathy Results Lab Laboratory Tests 11/06/20 05:38: Glucometer 171H 11/06/20 05:41: White Blood Count 9.3, Red Blood Count 3.96L, Hemoglobin 11.9L, Hematocrit 38L, Mean Corpuscular Volume 95, Mean Corpuscular Hemoglobin 30, Mean Corpuscular Hemoglobin Concent 32, Red Cell Distribution Width 15.3H, Platelet Count 131, Mean Platelet Volume 10.4, Immature Granulocyte % (Auto) 1, Neutrophils (%) (Auto) 87H, Lymphocytes (%) (Auto) 6L, Monocytes (%) (Auto) 6, Eosinophils (%) (Auto) 0, Basophils (%) (Auto) 0, Neutrophils # (Auto) 8.2H, Lymphocytes # (Auto) 0.5L, Monocytes # (Auto) 0.6, Eosinophils # (Auto) 0.0, Basophils # (Auto) 0.0, Immature Granulocyte # (Auto) 0.1, Sodium Level 139, Potassium Level 4.3, Chloride Level 105, Carbon Dioxide Level 25, Anion Gap 9, Blood Urea Nitrogen 50H, Creatinine 1.40H, Estimat Glomerular Filtration Rate 48, BUN/Creatinine Ratio 36, Glucose Level 247H, Calcium Level 8.0L, Corrected Calcium 9.0, Phosphorus Level 3.0, Magnesium Level 2.2, Total Bilirubin 0.6, Aspartate Amino Transf (AST/SGOT) 29, Alanine Aminotransferase (ALT/SGPT) 24, Alkaline Phosphatase 54, Total Protein 5.3L, Albumin 2.7L 11/06/20 11:04: Glucometer 236H 11/06/20 13:06: Lab Scanned Report Transfusion Reaction Form 11/06/20 16:38: Glucometer 297H 11/06/20 20:18: Glucometer 271H Microbiology 11/03/20 Gram Stain - Final, Resulted 11/03/20 Sputum Culture - Preliminary, Resulted No growth 11/02/20 Urine Culture - Final, Complete Aerococcus viridans Mixed Bacterial Anita 11/02/20 Blood Culture - Preliminary, Resulted No growth Assessment/Plan Assessment/Plan Assessment/Plan abdominal pain diffuse ischemic bowel Hyperglycemia Leukocytosis Covid - 19 s/p ex lap and ileocolic resection with side to side anastamosis Urinary retention Tolerating clears likely advance tomorrow as long as doing well. IV fluids IV ABX Confused Oriented x 2 Clark replaced due to retention and on Flomax IS Start lovenox for Dvt prophylaxis Clinical Quality Measures DVT/VTE Risk/Contraindication: Risk Factor Score Per Nursin RFS Level Per Nursing on Admit: 4+=Very High NEHAL GERENBERG DO Nov 06, 2020 21:44
[2020-11-07] VITALS: BP 139/65
[2020-11-07 03:59] VITALS: BP 134/64
[2020-11-07] MEDS ORDERED: MEROPENEM 500 MG VIAL (MERREM) IV ONE ×3 (04:23→20:13)
[2020-11-07] MEDS ORDERED: WATER (STERILE) FOR INJECTION 10 ML ONE ×2 (04:23→20:13)
[2020-11-07] MEDS: MEROPENEM 500 MG/SWFI 10 ML IV PUSH IV SCH ×6 (04:31→21:18)
[2020-11-07 05:03] LABS: BASOPHILS % (AUTO) 0 % (0-10); EOSINOPHILS % (AUTO) 0 % (0-10); HEMATOCRIT 38 % (40-54); HEMOGLOBIN 11.7 g/dL (13.3-17.7); LYMPHOCYTES # (AUTO) 0.7 10^3/uL (1.0-4.0); LYMPHOCYTES % (AUTO) 8 % (12-44); MEAN CORPUSCULAR HEMOGLOBIN 30 pg (25-34); MEAN CORPUSCULAR HGB CONC 31 g/dL (32-36); MEAN CORPUSCULAR VOLUME 95 fL (80-99); MEAN PLATELET VOLUME 10.4 fL (9.0-12.2); MONOCYTES # (AUTO) 0.6 10^3/uL (0.0-1.0); MONOCYTES % (AUTO) 7 % (0-12); NEUTROPHILS # (AUTO) 6.9 10^3/uL (1.8-7.8); NEUTROPHILS % (AUTO) 84 % (42-75); PLATELET COUNT 140 10^3/uL (130-400); WHITE BLOOD COUNT 8.2 10^3/uL (4.3-11.0)
[2020-11-07 05:13] LABS: ALBUMIN 2.6 GM/DL (3.2-4.5); POTASSIUM 4.6 MMOL/L (3.6-5.0)
[2020-11-07 05:14] LABS: CALCIUM 7.6 MG/DL (8.5-10.1)
[2020-11-07 05:15] LABS: TOTAL PROTEIN 4.6 GM/DL (6.4-8.2)
[2020-11-07 05:17] LABS: BILIRUBIN,TOTAL 0.7 MG/DL (0.1-1.0)
[2020-11-07] MEDS: inSUlin ASPART (NovoLOG) 1 UNIT/0.01 ML (CHARGE PER UNIT) SC SCH ×4 (05:17→21:20)
[2020-11-07 05:18] LABS: PHOSPHORUS 3.3 MG/DL (2.3-4.7)
[2020-11-07] MEDS: LACTATED RINGERS 1,000 ML IV SCH ×2 (05:18→12:09)
[2020-11-07 05:19] LABS: CREATININE SERUM 1.32 MG/DL (0.60-1.30)
[2020-11-07 05:22] LABS: MAGNESIUM 2.1 MG/DL (1.6-2.4)
[2020-11-07 08:00] VITALS: BP 161/76
[2020-11-07] MEDS: REMDESIVIR INJ 100 MG in NS (IVPB) 230 ML IV SCH (09:12)
[2020-11-07] MEDS: lisINopril 20 MG (PRINIVIL) TABLET PO SCH (09:15)
[2020-11-07] MEDS: ATENOLOL 25 MG (TENORMIN) TAB PO SCH (09:15)
[2020-11-07] MEDS: SERTRALINE 50 MG (ZOLOFT) TABLET PO SCH (09:15)
[2020-11-07] MEDS: FINASTERIDE (PROSCAR) 5 MG TAB PO SCH (09:15)
[2020-11-07] MEDS: ONDANSETRON 4 MG/2 ML (SDV) Z0FRAN IV PRN (09:27)
[2020-11-07] MEDS: FAMOTIDINE 20MG/2ML IV (PEPCID) IV SCH (09:31)
[2020-11-07 12:00] VITALS: BP 144/66
--- NOTE | 2020-11-07 14:21 | Physical Therapy Daily Note ---
PT Daily Note-Current Subjective Patient in bed pre tx, agrees to PT, has no complaints of pain at rest. Appearance Patient in recliner post tx with nurse call, phone, tray, all needs met. Instructed nursing to use sit to stand machine if he can't get up from the recliner when he needs to get back to bed. Mental Status Patient Orientation: Person, Place, Situation Attachments: Oxygen, Clark Catheter, IV Transfers SCALE: Activities may be completed with or without assistive devices. 7-Rfxlxyqjac-czsxela completes the activity by him/herself with no assistance from a helper. 5-Set-up or Clean-up Assistance-helper sets up or cleans up; patient completes activity. [place] assists only prior to or following the activity. 4-Supervision or Touching Assistance-helper provides verbal cues and/or touching/steadying and/or contact guard assistance as patient completes act ivity. Assistance may be provided throughout the activity or intermittently. 3-Partial/Moderate Assistance-helper does LESS THAN HALF the effort. [place] lifts, holds or supports trunk or limbs, but provides less than half the effort. 2-Substantial/Maximal Assistance-helper does MORE THAN HALF the effort. [place] lifts or holds trunk or limbs and provides more than half the effort. 4-Xcuqiseff-wuaowd does ALL the effort. Patient does none of the effort to complete the activity. Or, the assistance of 2 or more helpers is required for the patient to complete the activity. If activity was not attempted, code reason: 7-Patient Refused. 9-Not Applicable-not attempted and the patient did not perform the activity before the current illness, exacerbation or injury. 10-Not Attempted due to Environmental Limitations-(lack of equipment, weather restraints, etc.). 88-Not Attempted due to Medical Conditions or Safety Concerns. Roll Left & Right (QC): 3 Lying to Sitting/Side of Bed(Q: 3 Sit to Stand (QC): 3 Chair/Rhc-fh-Oyfsf Xfer(QC): 4 Mod assist for supine to sit, put patient's shoe on and prosthetic leg. His right leg is swollen and can't get all the way down into the socket without standing to apply more weight. After standing with min assist, he was able to take a few steps to the recliner and sit. Needs cues for safety and positioning, tried to sit too soon without turning completely. 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 Goals PT Alf Goals Time Frame: Nov 30, 2020 Roll Left & Right (QC): 6 Sit to Lying (QC): 6 Lying-Sitting on Side/Bed(QC): 6 Sit to Stand (QC): 6 Chair/Ljf-gl-Xnuwz Xfer(QC): 6 Toilet Transfer (QC): 6 Car Transfer (QC): 6 Does the Patient Walk: Yes Walk 10 feet (QC): 6 Walk 50ft with 2 Turns (QC): 6 PT Plan Problem List Problem List: Activity Tolerance, Functional Strength, Safety, Balance, Gait, Transfer, Bed Mobility, ROM Treatment/Plan Treatment Plan: Continue Plan of Care Treatment Plan: Bed Mobility, Education, Functional Activity Katlyn, Functional Strength, Gait, Safety, Therapeutic Exercise, Transfers Treatment Duration: Nov 30, 2020 Frequency: 6 times per week Estimated Hrs Per Day: .25 hour per day Safety Risks/Education Patient Education: Transfer Techniques, Correct Positioning, Safety Issues Teaching Recipient: Patient Teaching Methods: Demonstration, Discussion Response to Teaching: Reinforcement Needed Time/GCodes Time In: 1347 Time Out: 1407 Total Billed Treatment Time: 20 Total Billed Treatment 1 visit FA 20' NICOLE ESCUDERO PT Nov 07, 2020 14:21
--- NOTE | 2020-11-07 15:08 | Progress Note - Hospitalist ---
Subjective HPI/CC On Admission Date Seen by Provider: Nov 07, 2020 Time Seen by Provider: 10:15 Pt is an 85yoCM with a PMH of IDDMII, HTN, CAD s/p CABG. ischemic colitis who presented to the ER due to abdominal pain. He states that he has been feeling poorly with abdominal pain for the past two days. He has had nausea and vomiting with this as well. He did not take his insulin last night because of this. His was recently admitted to the hospital due to COVID but she has been home. He denies any cough, SOB, fever, or chills. His only complaint is abdominal pain. Subjective/Events-last exam He reports feeling well. He is laying in bed. He denies abdominal pain. He has been passing gas. He has not had any bowel movements. He denies fever and chills. He denies shortness of breath. He has been tolerating his clear liquid diet. Focused Exam Time of Focused Exam: 13:20 Objective Exam Vital Signs Vital Signs Date Time Temp Pulse Resp B/P (MAP) Pulse Ox O2 Delivery O2 Flow Rate FiO2 11/07/20 08:00 35.8 67 18 161/76 (104) 95 High Flow N/C 3.00 11/04/20 06:12 28 Capillary Refill : Less Than 3 SecondsLess Than 3 Seconds General Appearance: No Apparent Distress, Obese Respiratory: Lungs Clear, Normal Breath Sounds, No Respiratory Distress Cardiovascular: Regular Rate, Rhythm, No Edema, No Murmur Gastrointestinal: Non Tender, Soft, Abnormal Bowel Sounds (hypoactive) Extremity: Non Tender, No Pedal Edema, Other (right BKA) Neurologic/Psychiatric: Alert, Oriented x3, No Motor/Sensory Deficits, Normal Mood/Affect Skin: Normal Color, Warm/Dry Results/Procedures Lab Laboratory Tests 11/07/20 04:35 Patient resulted labs reviewed. Imaging: Reviewed Imaging Report Assessment/Plan Assessment and Plan Assess & Plan/Chief Complaint Acute respiratory failure due to COVID-19 Decadron Remdesivir s/p 1 unit convalescent plasma Ischemic colitis Surgery following, appreciate assistance s/p colectomy Meropenem MERNA on CKD Improved IV fluids discontinued T2DM Levemir SSI BPH Urinary retention Continue home meds Clark placed CAD HTN HLD Continue home meds Debility PT/OT DVT Prophylaxis: Lovenox Septic shock, resolved Diagnosis/Problems Diagnosis/Problems (1) Ischemic colitis Status: Acute (2) S/P colectomy Status: Acute (3) Acute respiratory failure due to COVID-19 Status: Acute (4) T2DM (type 2 diabetes mellitus) Status: Acute Qualifiers: 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
[2020-11-07 16:00] VITALS: BP 156/69
[2020-11-07] MEDS: TAMSULOSIN 0.4 MG (FLOMAX) CAP PO SCH (17:40)
[2020-11-07] MEDS: ENOXAPARIN 40 MG/0.4 ML (LOVENOX) SYR SC SCH (17:40)
--- NOTE | 2020-11-07 19:55 | NUR ---
this nurse returned a call to pt's , gave her update on patient, answered her questions. she states she wanted to drop off some clothes for pt, this nurse instructed her to drop it off at ER, let them know who it's for and we can help get it.
[2020-11-07 20:26] VITALS: BP 168/78
[2020-11-08] VITALS: BP 135/62
[2020-11-08] MEDS: LACTATED RINGERS 1,000 ML IV SCH ×2 (02:50→10:51)
[2020-11-08] MEDS ORDERED: MEROPENEM 500 MG VIAL (MERREM) IV ONE ×2 (03:16→12:28)
[2020-11-08] MEDS ORDERED: WATER (STERILE) FOR INJECTION 10 ML ONE ×2 (03:16→12:27)
[2020-11-08] MEDS: MEROPENEM 500 MG/SWFI 10 ML IV PUSH IV SCH ×4 (03:32→12:38)
[2020-11-08 03:52] VITALS: BP 140/65
[2020-11-08 04:50] LABS: BASOPHILS % (AUTO) 0 % (0-10); EOSINOPHILS % (AUTO) 0 % (0-10); HEMATOCRIT 36 % (40-54); HEMOGLOBIN 11.4 g/dL (13.3-17.7); LYMPHOCYTES % (AUTO) 12 % (12-44); MEAN CORPUSCULAR HEMOGLOBIN 30 pg (25-34); MEAN CORPUSCULAR HGB CONC 32 g/dL (32-36); MEAN CORPUSCULAR VOLUME 92 fL (80-99); MEAN PLATELET VOLUME 9.9 fL (9.0-12.2); MONOCYTES # (AUTO) 0.7 10^3/uL (0.0-1.0); MONOCYTES % (AUTO) 9 % (0-12); NEUTROPHILS # (AUTO) 6.5 10^3/uL (1.8-7.8); NEUTROPHILS % (AUTO) 79 % (42-75); PLATELET COUNT 145 10^3/uL (130-400); WHITE BLOOD COUNT 8.2 10^3/uL (4.3-11.0)
[2020-11-08 05:03] LABS: ALBUMIN 2.4 GM/DL (3.2-4.5); POTASSIUM 4.1 MMOL/L (3.6-5.0)
[2020-11-08 05:04] LABS: CALCIUM 7.6 MG/DL (8.5-10.1)
[2020-11-08 05:06] LABS: TOTAL PROTEIN 4.5 GM/DL (6.4-8.2)
[2020-11-08 05:07] LABS: BILIRUBIN,TOTAL 0.8 MG/DL (0.1-1.0)
[2020-11-08 05:09] LABS: CREATININE SERUM 1.15 MG/DL (0.60-1.30)
[2020-11-08 05:12] LABS: MAGNESIUM 1.8 MG/DL (1.6-2.4)
[2020-11-08] MEDS: inSUlin ASPART (NovoLOG) 1 UNIT/0.01 ML (CHARGE PER UNIT) SC SCH ×2 (05:27→12:09)
[2020-11-08 08:00] VITALS: BP 149/66
[2020-11-08] MEDS ORDERED: FAMOTIDINE 20 MG (PEPCID) TABLET PO SCH (09:00)
[2020-11-08] MEDS: SERTRALINE 50 MG (ZOLOFT) TABLET PO SCH (09:23)
[2020-11-08] MEDS: lisINopril 20 MG (PRINIVIL) TABLET PO SCH (09:23)
[2020-11-08] MEDS: FINASTERIDE (PROSCAR) 5 MG TAB PO SCH (09:23)
[2020-11-08] MEDS: ATENOLOL 25 MG (TENORMIN) TAB PO SCH (09:23)
--- NOTE | 2020-11-08 10:08 | NUR ---
DR NED PARISIIED OF NEW CONSULT. INFORMED OF PATIENT COVID STATUS-WOULD HE LIKE TO SEE PT IN HOSPITAL OR F/U [facility] AND SCHEDULE APPOINTMENT AFTER OUT OF ISOLATION?
--- NOTE | 2020-11-08 11:08 | Physical Therapy Daily Note ---
PT Daily Note-Current Subjective Patient in bed pre tx, agrees to PT after waking, has no complaints of pain. Appearance Patient in recliner post tx with nurse call, phone, tray, all needs met. Mental Status Patient Orientation: Person, Place, Situation Attachments: Oxygen, Clark Catheter Transfers SCALE: Activities may be completed with or without assistive devices. 0-Ehuachrtbe-chqwgli completes the activity by him/herself with no assistance from a helper. 5-Set-up or Clean-up Assistance-helper sets up or cleans up; patient completes activity. [place] assists only prior to or following the activity. 4-Supervision or Touching Assistance-helper provides verbal cues and/or touching/steadying and/or contact guard assistance as patient completes activity. Assistance may be provided throughout the activity or intermittently. 3-Partial/Moderate Assistance-helper does LESS THAN HALF the effort. [place] lifts, holds or supports trunk or limbs, but provides less than half the effort. 2-Substantial/Maximal Assistance-helper does MORE THAN HALF the effort. [place] lifts or holds trunk or limbs and provides more than half the effort. 9-Hazwytkwr-qrtzqt does ALL the effort. Patient does none of the effort to complete the activity. Or, the assistance of 2 or more helpers is required for the patient to complete the activity. If activity was not attempted, code reason: 7-Patient Refused. 9-Not Applicable-not attempted and the patient did not perform the activity before the current illness, exacerbation or injury. 10-Not Attempted due to Environmental Limitations-(lack of equipment, weather restraints, etc.). 88-Not Attempted due to Medical Conditions or Safety Concerns. Roll Left & Right (QC): 2 Lying to Sitting/Side of Bed(Q: 2 Sit to Stand (QC): 3 Chair/Rxw-bp-Utbyi Xfer(QC): 3 Max assist for supine to sit and to scoot toward the edge of the bed. Weight Bearing Left Lower Extremity: Left Weight Bearing/Tolerated Gait Training Distance: 3' Gait Persons Needed: 1 Gait Assistive Device: FWW min assist, uses RW and right prosthetic leg, leans heavily on walker, small steps, tends to turn to sit on the chair too soon. Exercises Seated Therapy Exercises: Ankle pumps (only LLE), Long arc quads Seated Reps: 20 Treatments bed mobility and transfers, ambulation, LE exercise Assessment Current Status: Fair Progress slightly improved functional mobility PT Short Term Goals Short Term Goals Time Frame: Nov 23, 2020 Roll Left & Right: 3 Sit to lyin Lying to sitting on side of be: 3 Sit to stand: 3 Chair/twz-hn-xuxzj transfer: 3 Toilet transfer: 3 Walk 10 feet: 3 PT Teller Manager Goals [facility]ci Goals PT [facility] Goals Time Frame: Nov 30, 2020 Roll Left & Right (QC): 6 Sit to Lying (QC): 6 Lying-Sitting on Side/Bed(QC): 6 Sit to Stand (QC): 6 Chair/Syt-ub-Tcsdc Xfer(QC): 6 Toilet Transfer (QC): 6 Car Transfer (QC): 6 Does the Patient Walk: Yes Walk 10 feet (QC): 6 Walk 50ft with 2 Turns (QC): 6 PT Plan Problem List Problem List: Activity Tolerance, Functional Strength, Safety, Balance, Gait, Transfer, Bed Mobility, ROM Treatment/Plan Treatment Plan: Continue Plan of Care Treatment Plan: Bed Mobility, Education, Functional Activity Katlyn, Functional Strength, Gait, Safety, Therapeutic Exercise, Transfers Treatment Duration: Nov 30, 2020 Frequency: 6 times per week Estimated Hrs Per Day: .25 hour per day Safety Risks/Education Patient Education: Gait Training, Transfer Techniques, Correct Positioning, Safety Issues Teaching Recipient: Patient Teaching Methods: Demonstration, Discussion Response to Teaching: Reinforcement Needed Time/GCodes Time In: 1040 Time Out: 1100 Total Billed Treatment Time: 20 Total Billed Treatment 1 visit FA NICOLE LUNDBERG PT Nov 08, 2020 11:08
--- NOTE | 2020-11-08 11:45 | NUR ---
Swing Bed Note: Qualifies for swing bed for continued need of Physical et Occupational therapies (weakness r/t COVID et s/p bowel resection). Patient has a reyes catheter d/t urinary retention after surgery. He will also need to work towards being able to have that d/c'd and to void independently. Continue to monitor oxygen et wean as tolerated. Continue to monitor bowel function s/p resection. Spoke with his Faby blancas she reports that he will need to be very close to independent with his transfers because she is unable to help with that. She reports that he was able to toilet himself et transfer himself to his wheel chair for ADL function. She reported that historically he has had to have home health care for therapies when discharged from the hospital setting and has done well with that service. She reports that they use [facility] for their home health care provider. Anticipate admission to swing bed today 11/08/20.
[2020-11-08 12:00] VITALS: BP 130/63
[2020-11-08] MEDS ORDERED: MEROPENEM 500 MG/SWFI 10 ML IV PUSH IV SCH ×2 (12:30)
--- NOTE | 2020-11-08 15:41 | NUR ---
"RD ASSESSMENT PMHx: DM; HTN; CAD; ischemic colitis; amputation; hypercholesterolemia; COPD; PT INTERACTION: Note pt is currently in COVID isolation, per chart review. Note all diet information for nutrition assessment for LOS is per Viki RN, or per chart review. Viki states current appetite appears good. Note avg PO intake 63% x2d, per chart review. Viki states some issues with nausea, but not with v/c/d that she is aware of. Note last BM was 11/07, and pt not currently on bowel regimen per chart review. Note recent 13# wt gain x7mon, per chart review. Note unable to determine current level of DM management, and unable to determine recent HbA1c, per chart review. ABNORMAL NUTRITION-RELATED LAB VALUES LOW: Ca 7.6; Pro 4.5; alb 2.4; HIGH: BUN 41; glu 106; Est. kcal needs: 0971-5930 kcal | 15-18 kcal/kg Est. Pro needs: 94-118 g Pro | 0.8-1.0 g Pro/kg PES STATEMENT: Inadequate oral intake (NI-2.1) related to loss of appetite, and nausea, as evidenced by chart review, and avg PO intake 63% x2d. INTERVENTION: Continue with current diet order of DYS2 Mechanically Altered diet. Pt may benefit from nutrition supplementation if PO intake declines. Did not offer diet education on DM management, d/t isolation precautions. Will continue to follow and reassess as pt needs, intake, and status change. Bebe HICKMAN, MS RD LD [phone] cell"
--- NOTE | 2020-11-08 17:40 | Discharge Summary ---
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 Gen. surgery was consulted and assisted with his ca re.CT scan of the abdomen revealed thickening of the colon. He was taken to surgery and found to have ischemic colitis. He underwent a partial colectomy. His course was complicated by acute respiratory failure due to COVID-19. He was treated with Decadron, Remdesivir, and convalescent plasma. He was requiring a few liters of oxygen at the time of discharge. He also had an acute kidney injury which improved with IV fluid resuscitation. He also had issues with urinary retention and a Clark catheter was placed. He was transferred to [facility] bed for ongoing therapies. Labs and Pending Lab Test: Laboratory Tests 11/07/20 20:30: Glucometer 230H 11/08/20 04:30: White Blood Count 8.2, Red Blood Count 3.85L, Hemoglobin 11.4L, Hematocrit 36L, Mean Corpuscular Volume 92, Mean Corpuscular Hemoglobin 30, Mean Corpuscular Hemoglobin Concent 32, Red Cell Distribution Width 14.6H, Platelet Count 145, Mean Platelet Volume 9.9, Immature Granulocyte % (Auto) 1, Neutrophils (%) (Auto) 79H, Lymphocytes (%) (Auto) 12, Monocytes (%) (Auto) 9, Eosinophils (%) (Auto) 0, Basophils (%) (Auto) 0, Neutrophils # (Auto) 6.5, Lymphocytes # (Auto) 1.0, Monocytes # (Auto) 0.7, Eosinophils # (Auto) 0.0, Basophils # (Auto) 0.0, Immature Granulocyte # (Auto) 0.1, Sodium Level 136, Potassium Level 4.1, Chloride Level 103, Carbon Dioxide Level 27, Anion Gap 6, Blood Urea Nitrogen 41H, Creatinine 1.15, Estimat Glomerular Filtration Rate 60, BUN/Creatinine Ratio 36, Glucose Level 106H, Calcium Level 7.6L, Corrected Calcium 8.9, Phosphorus Level 3.0, Magnesium Level 1.8, Total Bilirubin 0.8, Aspartate Amino Transf (AST/SGOT) 21, Alanine Aminotransferase (ALT/SGPT) 19, Alkaline Phosphatase 46, Total Protein 4.5L, Albumin 2.4L 11/08/20 11:57: Glucometer 177H 11/08/20 12:12: Glucometer 193H 11/08/20 16:20: Glucometer 239H Microbiology 11/03/20 Gram Stain - Final, Resulted 11/03/20 Sputum Culture - Preliminary, Resulted No growth 11/02/20 Urine Culture - Final, Complete Aerococcus viridans Mixed Bacterial Anita 11/02/20 Blood Culture - Final, Complete No growth Home Meds Active Reported Sertraline HCl 50 Mg Tablet 50 Mg PO DAILY Neurontin (Gabapentin) 300 Mg Capsule 300 Mg PO TID Aspirin EC (Aspirin) 81 Mg Tablet.dr 81 Mg PO DAILY Hydrocodone-Acetamin 5-325 mg (Hydrocodone/Acetaminophen) 1 Each Tablet 1 Each PO Q4H PRN Humulin 70-30 Vial (Insulin NPH Hum/Reg Insulin Hm) 100 Unit/1 Ml Vial 10 Unit SQ HS Humulin 70-30 Vial (Insulin NPH Hum/Reg Insulin Hm) 100 Unit/1 Ml Vial 20 Units SQ DAILY Fluoxetine HCl 20 Mg Capsule 20 Mg PO DAILY Vitamin C (Ascorbic Acid) 500 Mg Capsule 500 Mg PO DAILY Calcium (Calcium Carbonate) 600 Mg Tablet 600 Mg PO DAILY Atenolol 25 Mg Tablet 25 Mg PO DAILY Finasteride 5 Mg Tablet 5 Mg PO DAILY Flomax (Tamsulosin HCl) 0.4 Mg Cap 0.4 Mg PO DAILY Glipizide 10 Mg Tablet 10 Mg PO DAILY Centrum Silver Tablet (Multivit-Min/FA/Lycopene/Lut) 1 Each Tablet 1 Tab PO DAILY Assessment/Pt Instructions Patient discharged to swing bed for ongoing therapies. Discharge Planning: <30 minutes discharge planning Discharge Instructions Discharge Diet: No Restrictions Activity as Tolerated: Yes Discharge Physical Examination Vital Signs Vital Signs Date Time Temp Pulse Resp B/P (MAP) Pulse Ox O2 Delivery O2 Flow Rate FiO2 11/08/20 12:00 36.0 70 18 130/63 (85) 98 High Flow N/C 3.00 11/04/20 06:12 28 General Appearance: No Apparent Distress, Obese Respiratory: Lungs Clear, Normal Breath Sounds, No Respiratory Distress Cardiovascular: Regular Rate, Rhythm, No Edema, No Murmur Gastrointestinal: Normal Bowel Sounds, Non Tender, Soft Extremity: Non Tender, No Pedal Edema, Other (right BKA) Skin: Normal Color, Warm/Dry Neurologic/Psychiatric: Alert, Oriented x3, No Motor/Sensory Deficits, Normal Mood/Affect Allergies: Coded Allergies: No Known Drug Allergies (Verified , 10/15/09) Discharge Summary Date of Admission Nov 02, 2020 at 13:41 Date of Discharge Nov 08, 2020 at 16:26 Discharge Date: Nov 08, 2020 Discharge Time: 16:26 Admission Diagnosis Septic Shock Discharge Diagnosis Acute respiratory failure due to COVID-19, Ischemic colitis (1) Ischemic colitis Status: Acute (2) S/P colectomy Status: Acute (3) Acute respiratory failure due to COVID-19 Status: Acute (4) T2DM (type 2 diabetes mellitus) Status: Acute Qualifiers: Qualified Codes: E11.65 - Type 2 diabetes mellitus with hyperglycemia; Z79.4 - long-term (current) use of insulin (5) HTN (hypertension) Status: Chronic (6) BPH (benign prostatic hyperplasia) Status: Chronic Clinical Quality Measures DVT/VTE Risk/Contraindication: Risk Factor Score Per Nursin RFS Level Per Nursing on Admit: 4+=Very High DAGMAR WYMAN MD Nov 08, 2020 17:40
--- NOTE | 2020-11-08 19:22 | Progress Note - Surgery ---
Subjective Date Seen by a Provider: Nov 07, 2020 Time Seen by a Provider: 17:00 Subjective/Events-last exam Patient pain controlled. Trying to increase activity. Tolerating diet. Passing flatus. No BM. No new complaints. With urinary retention Clark was replaced. Denies nausea vomiting fever sweats chills shortness of breath or chest pain. Focused Exam Time of Focused Exam: 13:20 Objective Exam Vital Signs Date Time Temp Pulse Resp B/P (MAP) Pulse Ox O2 Delivery O2 Flow Rate FiO2 11/08/20 12:00 36.0 70 18 130/63 (85) 98 High Flow N/C 3.00 11/08/20 08:00 High Flow N/C 3.00 11/08/20 08:00 35.7 70 20 149/66 (93) 95 High Flow N/C 3.00 11/08/20 03:52 36.7 74 16 140/65 (90) 97 High Flow N/C 3.00 11/08/20 00:00 37.0 69 17 135/62 (86) 98 High Flow N/C 3.00 11/07/20 21:10 High Flow N/C 3.00 11/07/20 20:26 36.8 70 18 168/78 (108) 94 High Flow N/C 3.00 I & O 11/08/20 07:00 Intake Total 2550 ml Output Total 1625 ml Balance 925 ml Capillary Refill : Less Than 3 SecondsLess Than 3 Seconds General Appearance: No Apparent Distress, Obese HEENT: PERRL/EOMI, Normal ENT Inspection Neck: Normal Inspection, Non Tender Respiratory: Chest Non Tender, No Accessory Muscle Use, No Respiratory Distress Cardiovascular: Regular Rate, Rhythm, No Edema, No Murmur Gastrointestinal: soft, no organomegaly, tenderness (incisional, no signs of infection); No hernia Extremity: Non Tender, No Pedal Edema, Other (right BKA) Neurologic/Psychiatric: Alert, Oriented x3, No Motor/Sensory Deficits, Normal Mood/Affect Skin: Normal Color, Warm/Dry Lymphatic: No Adenopathy Results Lab Laboratory Tests 11/07/20 20:30: Glucometer 230H 11/08/20 04:30: White Blood Count 8.2, Red Blood Count 3.85L, Hemoglobin 11.4L, Hematocrit 36L, Mean Corpuscular Volume 92, Mean Corpuscular Hemoglobin 30, Mean Corpuscular Hemoglobin Concent 32, Red Cell Distribution Width 14.6H, Platelet Count 145, Mean Platelet Volume 9.9, Immature Granulocyte % (Auto) 1, Neutrophils (%) (Auto) 79H, Lymphocytes (%) (Auto) 12, Monocytes (%) (Auto) 9, Eosinophils (%) (Auto) 0, Basophils (%) (Auto) 0, Neutrophils # (Auto) 6.5, Lymphocytes # (Auto) 1.0, Monocytes # (Auto) 0.7, Eosinophils # (Auto) 0.0, Basophils # (Auto) 0.0, Immature Granulocyte # (Auto) 0.1, Sodium Level 136, Potassium Level 4.1, Chloride Level 103, Carbon Dioxide Level 27, Anion Gap 6, Blood Urea Nitrogen 41H, Creatinine 1.15, Estimat Glomerular Filtration Rate 60, BUN/Creatinine Ratio 36, Glucose Level 106H, Calcium Level 7.6L, Corrected Calcium 8.9, Phosphorus Level 3.0, Magnesium Level 1.8, Total Bilirubin 0.8, Aspartate Amino Transf (AST/SGOT) 21, Alanine Aminotransferase (ALT/SGPT) 19, Alkaline Phosphatase 46, Total Protein 4.5L, Albumin 2.4L 11/08/20 11:57: Glucometer 177H 11/08/20 12:12: Glucometer 193H 11/08/20 16:20: Glucometer 239H Microbiology 11/03/20 Gram Stain - Final, Resulted 11/03/20 Sputum Culture - Preliminary, Resulted No growth 11/02/20 Urine Culture - Final, Complete Aerococcus viridans Mixed Bacterial Anita 11/02/20 Blood Culture - Final, Complete No growth Assessment/Plan Assessment/Plan Assessment/Plan abdominal pain diffuse ischemic bowel Hyperglycemia Leukocytosis Covid - 19 s/p ex lap and ileocolic resection with side to side anastamosis Urinary retention advance diet IV fluids IV ABX Clark replaced due to retention and on Flomax IS lovenox for Dvt prophylaxis Clinical Quality Measures DVT/VTE Risk/Contraindication: Risk Factor Score Per Nursin RFS Level Per Nursing on Admit: 4+=Very High NEHAL GREENBERG DO Nov 08, 2020 19:22
== END 2020-11-08 16:26 | disposition swing bed (61) | DRG 853 ==
LOC: EDUNIT# 11:03 → ER 11:04 → ICU 13:41 → 4TH 11-05 05:25
PROVIDERS: ADMIT Family Medicine; ATTEND Internal Medicine
PROC: 02HV33Z Insertion of Infusion Device into Superior Vena Cava, Percutaneous Approach (ICD-10-PCS; principal; 2020-11-02)
PROC: 0DBE0ZZ Excision of Large Intestine, Open Approach (ICD-10-PCS; 2020-11-03)
PROC: 0DBB0ZZ Excision of Ileum, Open Approach (ICD-10-PCS; 2020-11-03)
PROC: XW13325 Transfusion of Convalescent Plasma (Nonautologous) into Peripheral Vein, Percutaneous Approach, New Technology Group 5 (ICD-10-PCS; 2020-11-03)
PROC: XW033E5 Introduction of Remdesivir Anti-infective into Peripheral Vein, Percutaneous Approach, New Technology Group 5 (ICD-10-PCS; 2020-11-03)
PROC: 5A1935Z Respiratory Ventilation, Less than 24 Consecutive Hours (ICD-10-PCS; 2020-11-03)
PROC: 0BH17EZ Insertion of Endotracheal Airway into Trachea, Via Natural or Artificial Opening (ICD-10-PCS; 2020-11-03)
DX: A41.9 Sepsis, unspecified organism (principal); R65.21 Severe sepsis with septic shock; U07.1 COVID-19; J95.821 Acute postprocedural respiratory failure; K55.9 Vascular disorder of intestine, unspecified; N17.9 Acute kidney failure, unspecified; E87.2 Acidosis; K56.50 Intestinal adhesions [bands], unspecified as to partial versus complete obstruction; I25.10 Atherosclerotic heart disease of native coronary artery without angina pectoris; F17.210 Nicotine dependence, cigarettes, uncomplicated; J44.9 Chronic obstructive pulmonary disease, unspecified; E78.5 Hyperlipidemia, unspecified; E11.51 Type 2 diabetes mellitus with diabetic peripheral angiopathy without gangrene; G43.909 Migraine, unspecified, not intractable, without status migrainosus; E11.22 Type 2 diabetes mellitus with diabetic chronic kidney disease; E11.42 Type 2 diabetes mellitus with diabetic polyneuropathy; N18.9 Chronic kidney disease, unspecified; N40.1 Benign prostatic hyperplasia with lower urinary tract symptoms; E11.65 Type 2 diabetes mellitus with hyperglycemia; F32.9 Major depressive disorder, single episode, unspecified; R33.8 Other retention of urine; Z89.611 Acquired absence of right leg above knee; Z95.1 Presence of aortocoronary bypass graft; Z95.0 Presence of cardiac pacemaker; Z79.82 Long term (current) use of aspirin; Z79.4 Long term (current) use of insulin
CPT/HCPCS: 36415; 71045; 74176; 80048; 80053; 81000; 82010; 82805; 82962; 83605; 83615; 83690; 83735; 84100; 84145; 84478; 85007; 85025; 85027; 85610; 85730; 86141; 86900; 86901; 87040; 87070; 87081; 87088; 87205; 87635; 88307; 94002; 94799

== ENCOUNTER 2020-11-08 12:47 | Inpatient (IN) | payer MEDICARE ==
[~2020-11-08] VITALS: Ht 175.3 cm; Wt 117.8 kg
[~2020-11-08 12:47] MED LIST changes: +GABA300S2 PO; +HUM100VI SQ
--- NOTE | 2020-11-08 12:51 | NUR ---
Swing Bed Note: Qualifies for swing bed for continued need of Physical et Occupational therapies (weakness r/t COVID et s/p bowel resection). Patient has a reyes catheter d/t urinary retention after surgery. He will also need to work towards being able to have that d/c'd and to void independently. Continue to monitor oxygen et wean as tolerated. Continue to monitor bowel function s/p resection. Spoke with his Faby blancas she reports that he will need to be very close to independent with his transfers because she is unable to help with that. She reports that he was able to toilet himself et transfer himself to his wheel chair for ADL function. She reported that historically he has had to have home health care for therapies when discharged from the hospital setting and has done well with that service. She reports that they use [facility] for their home health care provider. Anticipate admission to swing bed today 11/08/20.
[2020-11-08] MEDS ORDERED: MEROPENEM 500 MG in WATER (STERILE) FOR INJECTION 10 ML IV SCH (16:45)
[2020-11-08] MEDS ORDERED: morphine INJ 4 MG/ML 1 ML (VIAL/SYRINGE) IV PRN (16:45)
[2020-11-08] MEDS ORDERED: hydrALAZINE (APRESOLINE) 25 MG TAB PO PRN (16:45)
[2020-11-08] MEDS ORDERED: ONDANSETRON 4 MG/2 ML (SDV) Z0FRAN IV PRN (16:45)
[2020-11-08] MEDS ORDERED: ENOXAPARIN 40 MG/0.4 ML (LOVENOX) SYR SC SCH ×2 (16:45→17:30)
[2020-11-08] MEDS ORDERED: ACETAMINOPHEN 650 MG SUPP (TYLENOL) PR PRN (16:45)
[2020-11-08] MEDS ORDERED: inSUlin ASPART (NovoLOG) 1 UNIT/0.01 ML (CHARGE PER UNIT) ONE (17:13)
[2020-11-08] MEDS ORDERED: morphine INJ 10 MG/ML 1ML (SYR OR VIAL) IV PRN (17:15)
[2020-11-08] MEDS: LACTATED RINGERS 1,000 ML IV SCH (17:22)
[2020-11-08] MEDS: ENOXAPARIN 40 MG/0.4 ML (LOVENOX) SYR SC SCH (17:24)
--- NOTE | 2020-11-08 17:28 | NUR ---
Admission Drug Regimen Review: Date: 11/08/20 Time: 1727 Review Completed, No Issues found
--- NOTE | 2020-11-08 17:48 | NUR ---
JOSE ADKINS admitted to swing bed status to room 428-1, with an admitting diagnosis of [facility]Mine SINCLA[facility], on 11/08/20 from acute inpatient status. Therapy to evaluate patient for activity needs. JOSE ADKINS introduced to surroundings, call light, bed controls, phone, TV, temperature control, lights, meal times, smoking policy, visitor policy, side rail policy, bathrooms, and showers. Patient rights given to patient in the handbook.. JOSE ADKINS verbalized understanding that [facility] is not responsible for the loss or damage to any personal effects or valuables that are kept in the patients possession during their hospitalization. The following care plans and discharge were discussed with JOSE ADKINS. JOSE ADKINS verbalizes understanding of the Interdisciplinary Patient Education. Patient was informed about the Rapid Response Team and its purpose. Call light with in reach and patient demonstrates understanding of how to use. JOSE ADKINS reports no further needs at this time. Addendum: 11/08/20 at 1805 by SHARLA KHAN RN PT WILL BE RECEIVING PT & OT FOR DEBILITY FOLLOWING COVID ILLNESS.
--- NOTE | 2020-11-08 18:04 | NUR ---
PATIENT HEAD TO TOE ASSESSMENT IN AGREEMENT WITH [facility]. SEE [facility] FOR DOCUMENTED HEAD TO TOE ASSESSMENT
[2020-11-08 18:52] VITALS: BP 166/73
[2020-11-08] MEDS: TAMSULOSIN 0.4 MG (FLOMAX) CAP PO SCH (19:02)
--- NOTE | 2020-11-08 19:28 | Progress Note - Surgery ---
Subjective Date Seen by a Provider: Nov 08, 2020 Time Seen by a Provider: 10:00 Subjective/Events-last exam Patient feeling well. Pain is controlled. Patient tolerating diet. No nausea or vomiting. Passing flatus and small bowel movement. Objective Exam Vital Signs Date Time Temp Pulse Resp B/P (MAP) Pulse Ox O2 Delivery O2 Flow Rate FiO2 11/08/20 18:52 36.4 71 20 166/73 (104) 98 Nasal Cannula 2.00 Capillary Refill : General Appearance: No Apparent Distress, WD/WN HEENT: PERRL/EOMI, Normal ENT Inspection Neck: Non Tender, Supple Respiratory: Chest Non Tender, No Accessory Muscle Use, No Respiratory Distress Cardiovascular: Regular Rate, Rhythm, No Edema Gastrointestinal: non tender, soft, other (Incision clean dry intact no erythema) Extremity: Non Tender, Other (Right BKA) Neurologic/Psychiatric: Alert, Normal Mood/Affect Skin: Normal Color, Warm/Dry Lymphatic: No Adenopathy Assessment/Plan Assessment/Plan Assessment/Plan abdominal pain diffuse- improved ischemic bowel Hyperglycemia Leukocytosis Covid - 19 s/p ex lap and ileocolic resection with side to side anastamosis Urinary retention- reyes/flomax doing well diet as tolerates pain control medical management NEHAL GREENBERG DO Nov 08, 2020 19:28
[2020-11-08] MEDS: MEROPENEM 500 MG in WATER (STERILE) FOR INJECTION 10 ML IV SCH (20:28)
[2020-11-08] MEDS: inSUlin ASPART (NovoLOG) 1 UNIT/0.01 ML (CHARGE PER UNIT) SC SCH (20:31)
[2020-11-09] MEDS: MEROPENEM 500 MG in WATER (STERILE) FOR INJECTION 10 ML IV SCH ×3 (03:27→20:39)
[2020-11-09] MEDS: LACTATED RINGERS 1,000 ML IV SCH ×3 (03:28→23:04)
[2020-11-09 05:32] VITALS: BP 156/72
[2020-11-09] MEDS: inSUlin ASPART (NovoLOG) 1 UNIT/0.01 ML (CHARGE PER UNIT) SC SCH ×4 (05:46→20:48)
[2020-11-09 08:06] VITALS: BP 170/79
[2020-11-09] MEDS: FINASTERIDE (PROSCAR) 5 MG TAB PO SCH (09:47)
[2020-11-09] MEDS: SERTRALINE 50 MG (ZOLOFT) TABLET PO SCH (09:47)
[2020-11-09] MEDS: FAMOTIDINE 20 MG (PEPCID) TABLET PO SCH (09:48)
[2020-11-09] MEDS: ATENOLOL 25 MG (TENORMIN) TAB PO SCH (09:48)
[2020-11-09] MEDS: lisINopril 20 MG (PRINIVIL) TABLET PO SCH (09:48)
[2020-11-09 11:40] VITALS: BP 153/70
--- NOTE | 2020-11-09 11:44 | Physical Therapy Evaluation ---
PT Evaluation-General Medical Diagnosis Admission Date Nov 08, 2020 at 16:34 Medical Diagnosis: sepsis Onset Date: Nov 04, 2020 Therapy Diagnosis Therapy Diagnosis: debility Height/Weight Height (Feet): 5 Height (Inches): 9.00 Weight (Pounds): 226 Weight (Ounces): 9.6 Precautions Precautions/Isolations: Airborne Isolation, Contact Isolation, Droplet Isolation, Fall Prevention, Pressure Ulcer Weight Bear Status Left Lower Extremity: Left Full Weight Bearing Referral Physician: Dr. Henderson Reason for Referral: Evaluation/Treatment Medical History Pertinent Medical History: CABG, CAD, DM, Heart Failure, HTN, Neuropathy, PVD, Renal Insufficiency, Smoking Additional Medical History COVID+, R BKA Current History Pt. s/p colon resection, transferred to swing bed status. Reviewed History: Yes Social History Home: Single Level Current Living Status: Spouse Entry Into Home: Ramp Prior Prior Level of Function SCALE: Activities may be completed with or without assistive devices. 3-Xvyvnvjprc-iavwlbc completes the activity by him/herself with no assistance from a helper. 5-Set-up or Clean-up Assistance-helper sets up or cleans up; patient completes activity. [place] assists only prior to or following the activity. 4-Supervision or Touching Assistance-helper provides verbal cues and/or touching/steadying and/or contact guard assistance as patient completes activity. Assistance may be provided throughout the activity or intermittently. 3-Partial/Moderate Assistance-helper does LESS THAN HALF the effort. [place] lifts, holds or supports trunk or limbs, but provides less than half the effort. 2-Substantial/Maximal Assistance-helper does MORE THAN HALF the effort. [place] lifts or holds trunk or limbs and provides more than half the effort. 3-Xqtafhdgv-savczd does ALL the effort. Patient does none of the effort to complete the activity. Or, the assistance of 2 or more helpers is required for the patient to complete the activity. If activity was not attempted, code reason: 7-Patient Refused. 9-Not Applicable-not attempted and the patient did not perform the activity before the current illness, exacerbation or injury. 10-Not Attempted due to Environmental Limitations-(lack of equipment, weather restraints, etc.). 88-Not Attempted due to Medical Conditions or Safety Concerns. Bed Mobility: 6 Transfers (B,C,W/C): 6 Gait: 6 Wheelchair Mobility: 6 Indoor Mobility (Ambulation): Independent Prior Devices Use: Manual wheelchair, Walker PT Evaluation-Current Subjective Pt. in bed with nurse present, significant drainage of abdominal incision with nurse applying bandages. Pt/Family Goals home with spouse Objective Patient Orientation: Person, Place, Time, Situation Attachments: Central Line, Oxygen ROM/Strength ROM Upper Extremities WFL ROM Lower Extremities WFL Strength Upper Extremities WFL Strength Lower Extremities WFL Integumentary/Posture Integumentary see nursing notes Neuromuscular (Tone, Coordination, Reflexes) diminished Sensory Vision: Functional Hearing: Impaired Sensation Right Upper Extremit: Intact Sensation Left Upper Extremity: Intact Sensation Right Lower Extremit: Impaired Sensation Left Lower Extremity: Impaired Transfers Roll Left & Right (QC): 4 Sit to Lying (QC): 88 Lying to Sitting/Side of Bed(Q: 4 Sit to Stand (QC): 4 Chair/Hwh-dv-Pjnql Xfer(QC): 4 Toilet Transfer (QC): 88 Car Transfer (QC): 88 Gait Does the Patient Walk?: Yes Mode of Locomotion: Both Anticipated Mode of Locomotion: Both Walk 10 feet (QC): 88 Walk 50 ft with 2 Turns(QC): 88 Walk 150 ft (QC): 88 Walking 10ft/uneven surface-QC: 88 Distance: 3 ft Gait Assistive Device: FWW Wheelchair Training Does the Pt Use a Wheelchair?: Yes Wheel 50 ft with 2 turns (QC): 88 Wheel 150 ft (QC): 88 Type of Wheelchair: Manual Stairs 1 Step (curb) (QC): 9 4 Steps (QC): 9 12 Steps (QC): 9 Balance Sitting Static: Good Sitting Dynamic: Fair Standing Static: Fair Standing Dynamic: Fair Picking up an Object (QC): 88 Treatment transfers bed to w/c and returned to assist nurse aide with w/c to larger w/c Assessment/Needs Pt. is an 85 y.o. male with decreased mobility following colon resection and sepsis. Pt. is currently min A with transfers. Pt. requested a w/c to get to/from bathroom and transferred into w/c using FWW with min A, although needs several cues for safety. Pt. had significant drainage during from abdominal incision during transfer and nursing notified. Pt. would benefit from skilled P T to improve mobility for return home. Rehab Potential: Fair PT Retirement Goals Retirement Goals PT Retirement Goals Time Frame: Nov 23, 2020 Roll Left & Right (QC): 6 Sit to Lying (QC): 6 Lying-Sitting on Side/Bed(QC): 6 Sit to Stand (QC): 6 Chair/Ffd-mw-Merte Xfer(QC): 6 Toilet Transfer (QC): 6 Car Transfer (QC): 88 Does the Patient Walk: Yes Walk 10 feet (QC): 4 Walk 50ft with 2 Turns (QC): 88 Walk 150 ft (QC): 88 Walking 10ft on Uneven Surface: 88 1 Step (curb) (QC): 9 4 Steps (QC): 9 12 Steps (QC): 9 Picking up an Object (QC): 9 Does the Pt use WC or Scooter?: Yes Wheel 50 feet with 2 turns (QC: 6 Type: Manual Wheel 150 feet: 88 Type: Manual PT Plan Problem List Problem List: Activity Tolerance, Functional Strength, Safety, Balance, Gait, Transfer, Bed Mobility, ROM Treatment/Plan Treatment Plan: Continue Plan of Care Treatment Plan: Bed Mobility, Education, Functional Activity Kat[place], Functional Strength, Gait, Safety, Therapeutic Exercise, Transfers Treatment Duration: Nov 23, 2020 Frequency: 6 times per week Estimated Hrs Per Day: .5 hour per day Time/GCodes Time In: 0950 Time Out: 1050 Total Billed Treatment Time: 35 Total Billed Treatment 1, EVM 10', FA 15' ([id number]) 1, FA 15' ([id number]) MIQUEL BELLO PT Nov 09, 2020 11:44
--- NOTE | 2020-11-09 11:45 | Progress Note ---
Subjective Date Seen by a Provider: Nov 09, 2020 Time Seen by a Provider: 11:15 Subjective/Events-last exam Patient seen with Dr. Mari. Patient reports doing well. Tolerating diet. Denies any pain. Did report some drainage from his incision. Denies any fever or chills as well as no nausea or vomiting. Objective Exam Vital Signs Date Time Temp Pulse Resp B/P (MAP) Pulse Ox O2 Delivery O2 Flow Rate FiO2 11/09/20 09:52 Nasal Cannula 1.00 11/09/20 08:06 36.5 70 18 170/79 (109) 97 Nasal Cannula 1.00 11/09/20 05:32 36.3 70 18 156/72 (100) 98 Nasal Cannula 1.00 11/08/20 21:00 Nasal Cannula 1.00 11/08/20 18:52 36.4 71 20 166/73 (104) 98 Nasal Cannula 2.00 I & O 11/09/20 07:00 Intake Total 700 ml Output Total 1175 ml Balance -475 ml Capillary Refill : Less Than 3 Seconds General Appearance: No Apparent Distress, WD/WN Neck: Full Range of Motion, Normal Inspection Respiratory: Normal Breath Sounds, No Accessory Muscle Use, No Respiratory Distress Cardiovascular: Regular Rate, Rhythm, No Edema Gastrointestinal: normal bowel sounds, non tender, soft, other (Midline inci jayme clean and intact. No redness or erythema. There is some mild serous drainge from the inferior aspect of the incision. No pain with palpation. This does appear to be a seroma) Extremity: Normal Range of Motion, Other (Right lower leg prosthetic) Neurologic/Psychiatric: Alert, Oriented x3 Skin: Normal Color, Warm/Dry Results Lab Laboratory Tests 11/09/20 05:27: Glucometer 192H Assessment/Plan Assessment/Plan Assess & Plan/Chief Complaint abdominal pain diffuse- improved ischemic bowel Hyperglycemia Leukocytosis Covid - 19 s/p ex lap and ileocolic resection with side to side anastamosis Urinary retention- reyes/flomax He has developed a seroma of the midline incision and will remove some of the luis to allow for drainage. doing well with diet and will advance to diabetic diet pain control medical management TOBIAS JARAMILLO APRN Nov 09, 2020 11:45
--- NOTE | 2020-11-09 12:13 | Progress Note ---
Standard Progress Note Progress Notes/Assess & Plan Date Seen by a Provider: Nov 09, 2020 Time Seen by a Provider: 11:30 Progress/Assessment & Plan seroma lower pole incision. luis removed and wound opened and packed. no purulence. will continue wet to dry. RICKEY SYED MD Nov 09, 2020 12:13
[2020-11-09] MEDS: TAMSULOSIN 0.4 MG (FLOMAX) CAP PO SCH (17:07)
[2020-11-09] MEDS: ENOXAPARIN 40 MG/0.4 ML (LOVENOX) SYR SC SCH (17:07)
[2020-11-09 18:06] VITALS: BP 151/67
[2020-11-10] MEDS: MEROPENEM 500 MG in WATER (STERILE) FOR INJECTION 10 ML IV SCH ×3 (04:07→20:57)
[2020-11-10 06:00] VITALS: BP 148/66
[2020-11-10] MEDS: inSUlin ASPART (NovoLOG) 1 UNIT/0.01 ML (CHARGE PER UNIT) SC SCH ×4 (06:05→20:58)
[2020-11-10] MEDS: ATENOLOL 25 MG (TENORMIN) TAB PO SCH (09:00)
[2020-11-10] MEDS: lisINopril 20 MG (PRINIVIL) TABLET PO SCH (09:01)
[2020-11-10] MEDS: SERTRALINE 50 MG (ZOLOFT) TABLET PO SCH (09:01)
[2020-11-10] MEDS: FAMOTIDINE 20 MG (PEPCID) TABLET PO SCH (09:01)
[2020-11-10] MEDS: FINASTERIDE (PROSCAR) 5 MG TAB PO SCH (09:02)
[2020-11-10] MEDS: LACTATED RINGERS 1,000 ML IV SCH ×2 (09:04→18:24)
--- NOTE | 2020-11-10 10:23 | Progress Note ---
Subjective Date Seen by a Provider: Nov 10, 2020 Time Seen by a Provider: 10:10 Subjective/Events-last exam Patient seen with Dr. Mari. Patient reports doing well. Tolerating diet with no nausea or vomiting. Reports passing flatus but no BM yet. Denies any abdominal pain. Objective Exam Vital Signs Date Time Temp Pulse Resp B/P (MAP) Pulse Ox O2 Delivery O2 Flow Rate FiO2 11/10/20 06:00 36.2 70 19 148/66 (93) 98 Nasal Cannula 1.00 11/09/20 20:40 High Flow N/C 1.00 11/09/20 18:06 36.3 72 18 151/67 (95) 99 Nasal Cannula 1.00 11/09/20 11:40 153/70 (97) I & O 11/10/20 07:00 Intake Total 2880 ml Output Total 4150 ml Balance -1270 ml Capillary Refill : Less Than 3 Seconds General Appearance: No Apparent Distress, WD/WN Neck: Normal Inspection, Non Tender Respiratory: Normal Breath Sounds, No Accessory Muscle Use, No Respiratory Distress Cardiovascular: Regular Rate, Rhythm, No Edema Gastrointestinal: normal bowel sounds, soft, tenderness, other (Abdominal incision with no redness or erythema. The inferior aspection is open with good granulation tissue and some mild serous drainage note. The incision is tender to palpation.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.) Neurologic/Psychiatric: Alert, Oriented x3 Skin: Normal Color, Warm/Dry Results Lab Laboratory Tests 11/09/20 15:45: Glucometer 260H 11/09/20 20:46: Glucometer 208H 11/10/20 06:05: Glucometer 58*L Assessment/Plan Assessment/Plan Assess & Plan/Chief Complaint abdominal pain diffuse- improved ischemic bowel Hyperglycemia Leukocytosis Covid - 19 s/p ex lap and ileocolic resection with side to side anastamosis Urinary retention- reyes/flomax Continue with dress changes for seroma. Continue with diabetic diet pain control medical management TOBIAS JARAMILLO APRN Nov 10, 2020 10:23
[2020-11-10] MEDS ORDERED: ACETAMINOPHEN 325 MG TABLET PO PRN (13:15)
[2020-11-10] MEDS ORDERED: polyethylene glycoL POWDER 17 GM (MIRALAX) PACK PO PRN (13:15)
[2020-11-10] MEDS ORDERED: ANTACID SUSP 30 ML UDC (MYLANTA) PO PRN (13:15)
[2020-11-10] MEDS ORDERED: ONDANSETRON 4 MG (ZOFRAN) ORAL DISSOLVE TAB PO PRN (13:15)
[2020-11-10] MEDS ORDERED: ONDANSETRON 4 MG/2 ML (SDV) Z0FRAN IV PRN (13:15)
[2020-11-10] MEDS: ENOXAPARIN 40 MG/0.4 ML (LOVENOX) SYR SC SCH (17:24)
[2020-11-10] MEDS: TAMSULOSIN 0.4 MG (FLOMAX) CAP PO SCH (17:24)
[2020-11-10 17:54] VITALS: BP 148/66
[2020-11-10 18:16] VITALS: BP 156/87
[2020-11-10] MEDS: MELATONIN 3 MG TABLET PO PRN (20:57)
[2020-11-10] MEDS: DOCUSATE SODIUM 100 MG (COLACE) CAP PO SCH (20:57)
[2020-11-11] MEDS: MEROPENEM 500 MG in WATER (STERILE) FOR INJECTION 10 ML IV SCH ×2 (03:48→12:00)
[2020-11-11] MEDS: LACTATED RINGERS 1,000 ML IV SCH (03:49)
[2020-11-11 04:31] LABS: BASOPHILS % (AUTO) 0 % (0-10); EOSINOPHILS # (AUTO) 0.2 10^3/uL (0.0-0.3); EOSINOPHILS % (AUTO) 3 % (0-10); HEMATOCRIT 37 % (40-54); HEMOGLOBIN 11.6 g/dL (13.3-17.7); LYMPHOCYTES # (AUTO) 1.5 10^3/uL (1.0-4.0); LYMPHOCYTES % (AUTO) 25 % (12-44); MEAN CORPUSCULAR HEMOGLOBIN 30 pg (25-34); MEAN CORPUSCULAR HGB CONC 32 g/dL (32-36); MEAN CORPUSCULAR VOLUME 94 fL (80-99); MEAN PLATELET VOLUME 9.8 fL (9.0-12.2); MONOCYTES # (AUTO) 0.4 10^3/uL (0.0-1.0); MONOCYTES % (AUTO) 7 % (0-12); NEUTROPHILS # (AUTO) 3.9 10^3/uL (1.8-7.8); NEUTROPHILS % (AUTO) 65 % (42-75); PLATELET COUNT 183 10^3/uL (130-400); WHITE BLOOD COUNT 6.1 10^3/uL (4.3-11.0)
[2020-11-11 04:39] LABS: CHLORIDE 102 MMOL/L (98-107); POTASSIUM 4.2 MMOL/L (3.6-5.0); SODIUM 141 MMOL/L (135-145)
[2020-11-11 04:40] LABS: CALCIUM 7.8 MG/DL (8.5-10.1)
[2020-11-11 04:41] LABS: GLUCOSE 76 MG/DL (70-105)
[2020-11-11 04:42] LABS: CARBON DIOXIDE 32 MMOL/L (21-32)
[2020-11-11 04:45] LABS: CREATININE SERUM 0.95 MG/DL (0.60-1.30); GFR ESTIMATED > 60
[2020-11-11 04:46] LABS: BUN/CREATININE RATIO 29
[2020-11-11 05:15] VITALS: BP 160/70
[2020-11-11] MEDS: inSUlin ASPART (NovoLOG) 1 UNIT/0.01 ML (CHARGE PER UNIT) SC SCH ×4 (05:24→22:14)
[2020-11-11] MEDS: ATENOLOL 25 MG (TENORMIN) TAB PO SCH (09:20)
[2020-11-11] MEDS: FAMOTIDINE 20 MG (PEPCID) TABLET PO SCH (09:20)
[2020-11-11] MEDS: DOCUSATE SODIUM 100 MG (COLACE) CAP PO SCH ×2 (09:20→20:57)
[2020-11-11] MEDS: lisINopril 20 MG (PRINIVIL) TABLET PO SCH (09:20)
[2020-11-11] MEDS: SERTRALINE 50 MG (ZOLOFT) TABLET PO SCH (09:20)
[2020-11-11] MEDS: FINASTERIDE (PROSCAR) 5 MG TAB PO SCH (09:20)
--- NOTE | 2020-11-11 14:04 | Progress Note - Hospitalist ---
Subjective HPI/CC On Admission Date Seen by Provider: Nov 11, 2020 Time Seen by Provider: 13:59 Subjective/Events-last exam Pt medically is doing much better than when I saw him last. He states he thinks he is doing fine but is frustrated that he doesn't have teeth and can't eat what he wants. He is requesting a sandwich and a green salad. Objective Exam Vital Signs Vital Signs Date Time Temp Pulse Resp B/P (MAP) Pulse Ox O2 Delivery O2 Flow Rate FiO2 11/11/20 09:00 93 Room Air 11/11/20 05:15 36.1 70 18 160/70 (100) 1.00 Capillary Refill : Less Than 3 Seconds General Appearance: No Apparent Distress, Chronically ill, Obese Respiratory: Lungs Clear, No Respiratory Distress Cardiovascular: Regular Rate, Rhythm, No Murmur Gastrointestinal: Normal Bowel Sounds, Other (surgical wound in place with luis and ABD pad over it) Neurologic/Psychiatric: Alert, Oriented x3 Results/Procedures Lab Laboratory Tests 11/11/20 04:17 Patient resulted labs reviewed. Assessment/Plan Assessment and Plan Assess & Plan/Chief Complaint Ischemic colitis Surgery following, appreciate assistance s/p colectomy Meropenem Acute respiratory failure due to COVID-19 Decadron- will complete 10 day course today s/p Remdesivir s/p 1 unit convalescent plasma MERNA on CKD Resolved, creatinine 0.95 today T2DM Levemir SSI BPH Urinary retention Continue home meds Clark placed CAD HTN HLD Continue home meds Debility PT/OT DVT Prophylaxis: Lovenox Septic shock, resolved ANA THOMAS MD Nov 11, 2020 14:04
--- NOTE | 2020-11-11 15:36 | Physical Therapy Daily Note ---
PT Daily Note-Current Subjective Patient in WC at bedside pre tx, agrees to PT, already has prosthetic leg on. Has no complaints of pain. He does state he is pretty tired due to just having OT. Appearance Patient in WC at bedside post tx with nurse call, phone, tray, all needs met. Mental Status Patient Orientation: Person, Place, Situation Attachments: Oxygen, Clark Catheter Transfers SCALE: Activities may be completed with or without assistive devices. 3-Wepracacgc-mnpgovc completes the activity by him/herself with no assistance from a helper. 5-Set-up or Clean-up Assistance-helper sets up or cleans up; patient completes activity. [place] assists only prior to or following the activity. 4-Supervision or Touching Assistance-helper provides verbal cues and/or touching/steadying and/or contact guard assistance as patient completes activity. Assistance may be provided throughout the activity or intermittently. 3-Partial/Moderate Assistance-helper does LESS THAN HALF the effort. [place] lifts, holds or supports trunk or limbs, but provides less than half the effort. 2-Substantial/Maximal Assistance-helper does MORE THAN HALF the effort. [place] lifts or holds trunk or limbs and provides more than half the effort. 1-Tmgvxjdri-vnrvws does ALL the effort. Patient does none of the effort to complete the activity. Or, the assistance of 2 or more helpers is required for the patient to complete the activity. If activity was not attempted, code reason: 7-Patient Refused. 9-Not Applicable-not attempted and the patient did not perform the activity before the current illness, exacerbation or injury. 10-Not Attempted due to Environmental Limitations-(lack of equipment, weather restraints, etc.). 88-Not Attempted due to Medical Conditions or Safety Concerns. Sit to Stand (QC): 4 Weight Bearing Left Lower Extremity: Left Full Weight Bearing Gait Training Distance: 4'x2 Gait Assistive Device: FWW Patient was able to stand, take a few steps forward, then backward, and sit, and then do it again. Exercises Seated Therapy Exercises: Ankle pumps (LLE), Long arc quads, Hip flexion Seated Reps: 20 Treatments ambulation, LE exercise Assessment Current Status: Fair Progress very slowly improving transfers and LE strength PT Is/It Project Manager Goals Mcfp Goals PT Is/It Project Manager Goals Time Frame: Nov 23, 2020 Roll Left & Right (QC): 6 Sit to Lying (QC): 6 Lying-Sitting on Side/Bed(QC): 6 Sit to Stand (QC): 6 Chair/Aeh-bf-Djgqv Xfer(QC): 6 Toilet Transfer (QC): 6 Car Transfer (QC): 88 Does the Patient Walk: Yes Walk 10 feet (QC): 4 Walk 50ft with 2 Turns (QC): 88 Walk 150 ft (QC): 88 Walking 10ft on Uneven Surface: 88 1 Step (curb) (QC): 9 4 Steps (QC): 9 12 Steps (QC): 9 Picking up an Object (QC): 9 Does the Pt use WC or Scooter?: Yes Wheel 50 feet with 2 turns (QC: 6 Type: Manual Wheel 150 feet: 88 Type: Manual PT Plan Problem List Problem List: Activity Tolerance, Functional Strength, Safety, Balance, Gait, Transfer, Bed Mobility, ROM Treatment/Plan Treatment Plan: Continue Plan of Care Treatment Plan: Bed Mobility, Education, Functional Activity [place], Functional Strength, Gait, Safety, Therapeutic Exercise, Transfers Treatment Duration: Nov 23, 2020 Frequency: 6 times per week Estimated Hrs Per Day: .5 hour per day Safety Risks/Education Patient Education: Gait Training, Transfer Techniques, Correct Positioning, Safety Issues Teaching Recipient: Patient Teaching Methods: Demonstration, Discussion Response to Teaching: Reinforcement Needed Time/GCodes Time In: 1515 Time Out: 1530 Total Billed Treatment Time: 15 Total Billed Treatment 1 visit EX NICOLE LEON PT Nov 11, 2020 15:36
--- NOTE | 2020-11-11 15:44 | Occupational Therapy Eval ---
OT Evaluation-General/PLF Medical Diagnosis Admission Date Nov 08, 2020 at 16:34 Medical Diagnosis: sepsis Onset Date: Nov 04, 2020 Therapy Diagnosis Therapy Diagnosis: Decreased ADL status Height/Weight Height (Feet): 5 Height (Inches): 9.00 Weight (Pounds): 226 Weight (Ounces): 9.6 Precautions Precautions/Isolations: Contact Isolation, Droplet Isolation, Fall Prevention, Pressure Ulcer Referral Physician: thalia Referral Reason: Activity Tolerance, Self Care, Evaluation/Treatment, Strengthening/ROM Medical History Pertinent Medical History: CABG, CAD, DM, Heart Failure, HTN, Neuropathy, PVD, Renal Insufficiency, Smoking Additional Medical History CABG, CAD, DM, HTN, neuropathy, PVD, R BKA with prosthesis Current History sepsis/ colon resection, COVID + Reviewed History: Yes Social History Home: Single Level Current Living Status: Spouse Entry Into Home: Ramp ADL-Prior Level of Function SCALE: Activities may be completed with or without assistive devices. 4-Vrijpncltk-bpajawx completes the activity by him/herself with no assistance from a helper. 5-Set-up or Clean-up Assistance-helper sets up or cleans up; patient completes activity. [place] assists only prior to or following the activity. 4-Supervision or Touching Assistance-helper provides verbal cues and/or touching/steadying and/or contact guard assistance as patient completes activity. Assistance may be provided throughout the activity or intermittently. 3-Partial/Moderate Assistance-helper does LESS THAN HALF the effort. [place] lifts, holds or supports trunk or limbs, but provides less than half the effort. 2-Substantial/Maximal Assistance-helper does MORE THAN HALF the effort. [place] lifts or holds trunk or limbs and provides more than half the effort. 7-Lcgiprfih-raqlrd does ALL the effort. Patient does none of the effort to complete the activity. Or, the assistance of 2 or more helpers is required for the patient to complete the activity. If activity was not attempted, code reason: 7-Patient Refused. 9-Not Applicable-not attempted and the patient did not perform the activity before the current illness, exacerbation or injury. 10-Not Attempted due to Environmental Limitations-(lack of equipment, weather restraints, etc.). 88-Not Attempted due to Medical Conditions or Safety Concerns. ADL PLOF Comments Pt states IND with use of walker/ w/c with ADLs, pt states assist with IADLs from . Self Care: Independent Functional Cognition: Independent DME/Equipment: Bath Chair, Grab Bars, Shower DME/Equipment Comments shower, gb, sc, walker, w/c. Occupation: disabled. Drive Self: No OT Current Status Subjective Pt supine in bed. Alert/ oriented to person/ place. Pt is educated on situation. Pt agrees to tx, hesitant and requires consistent encouragement. Pt states pain, "All over." Mental Status/Objective Patient Orientation: Person, Place Attachments: Clark Catheter Current Hearing Aids: No Dentures/Partials: No Hand Dominance: Right Upper Extremity ROM WFL BUE Upper Extremity Coordination WFL BUE Upper Extremity Sensation Decreased bilaterally- neuropathy Upper Extremity Strength WFL BUE (4/5) ADL-Treatment Eating (QC): 6 Oral Hygiene (QC): 9 (denies, stating he "has no teeth," and brushing gums is "painful") Shower/Bathe Self (QC): 7 (denies, stating he completed already today. Pt states he did not complete on own, though would be able to if he desired. Per clinical judgment, pt will require assist with bottom hygiene (min A)) Upper Body Dressing (QC): 5 (s/u) Lower Body Dressing (QC): 7 (denies brief donning, though per clinical judgement can complete with mod A (in stance with assist to wire puller hips)) On/Off Footwear (QC): 3 (mod A (pt able to don prosthesis to RLE with s/u and SBA EOB, OT completes L shoe donning due to decreased balance) Toileting Hygiene (QC): 2 (per clinical judgment. ) Other Treatments Pt in bed. Hesitantly agrees to OT tx. Sits EOB with SBA/ increased time. Pt states has completed toileting "on own" and bathed/ dressed with assist. Cli nical judgment utilized to complete QCs due to denials. Pt dons R prosthesis with increased time EOB. Pt requests assist with L shoe due to abdomen and decreased balance. Pt sit to stand from EOB/ walker with CGA. Pt states, "Now hands off," as he ambulates to w/c. Pt sits with limited control, w/c leaning backwards slightly due to decreased control. Decreased safety during transfer. Pt educated on this. pt states, "Lady, I've been doing this since longer than you've been alive." Pt continues stating all tasks he completed this date. Pt pushes self to bathroom. Sit to stand and rotation to toilet with CGA. Pt denies getting on toilet, returns to w/c. Pt pushes self back to room, stating need for oxygen (currently not attached). Pt is given 02 NC, 1L applied. Pt sits in w/c and agrees to press call light when desires to go to bed Pt is educated on SWB status, as pt states, "I am able to do all of this, I don't understand why I have to keep showing this to you guys." Pt is educated on increased OT/ PT during this time. Pt agrees, all needs met, call light in reach, pt again agrees to press call light when done in upright position in w/c. Education OT Patient Education: Correct positioning, Purpose of tx/functional activities, Safety issues, Transfer techniques Teaching Recipient: Patient Teaching Methods: Demonstration, Discussion Response to Teaching: Verbalize Understanding, Return Demonstration, Reinforcement Needed OT Custodial Goals Bread And Pastry Baker Goals Time Frame: Nov 18, 2020 Eating (QC): 6 Oral Hygiene (QC): 09 Toileting Hygiene (QC): 6 Shower/Bathe Self (QC): 6 Upper Body Dressing (QC): 6 Lower Body Dressing (QC): 6 On/Off Footwear (QC): 6 Additional Goals: 1-Demonstrate ADL Tasks, 2-Verbalize Understanding, 3- ImproveStrength/Katlyn 1=Demonstrate adherence to instructed precautions during ADL tasks. 2=Patient will verbalize/demonstrate understanding of assistive devices/modifications for ADL. 3=Patient will improve strength/tolerance for activity to enable patient to perform ADL's. OT Education/Plan Problem List/Assessment Assessment: Decreased Activ Tolerance, Decreased UE Strength, Dependent Transfers, Impaired Bed Mobility, Impaired Funct Balance, Impaired I ADL's, Impaired Self-Care Skills Discharge Recommendations Plan/Recommendations: Continue POC Therapy Discharge Recommendati: Intermittent Supervision, Home & Family Treatment Plan/Plan of Care Treatment,Training & Education: Yes Patient would benefit from OT for education, treatment and training to promote independence in ADL's, mobility, safety and/or upper extremity function for ADL's. Plan of Care: ADL Retraining, Functional Mobility, UE Funct Exercise/Act, W/C Management Training Treatment Duration: Nov 18, 2020 Frequency: 5 times per week Estimated Hrs Per Day: .25 hour per day Rehab Potential: Fair Time/GCodes Start Time: 14:39 Stop Time: 15:10 Total Time Billed (hr/min): 31 Billed Treatment Time 1, EVM (10), ADL (21)= 31 BETH VASQUES OTR Nov 11, 2020 15:44
[2020-11-11 17:11] VITALS: BP 199/86
[2020-11-11] MEDS: TAMSULOSIN 0.4 MG (FLOMAX) CAP PO SCH (17:21)
[2020-11-11] MEDS: ENOXAPARIN 40 MG/0.4 ML (LOVENOX) SYR SC SCH (17:22)
[2020-11-11 18:49] VITALS: BP 172/70
[2020-11-11 19:51] VITALS: BP 150/64
[2020-11-11] MEDS: MELATONIN 3 MG TABLET PO PRN (20:57)
[2020-11-12] MEDS: inSUlin ASPART (NovoLOG) 1 UNIT/0.01 ML (CHARGE PER UNIT) SC SCH ×2 (05:50→11:48)
[2020-11-12 05:52] VITALS: BP 157/71
[2020-11-12] MEDS: SERTRALINE 50 MG (ZOLOFT) TABLET PO SCH (09:13)
[2020-11-12] MEDS: FAMOTIDINE 20 MG (PEPCID) TABLET PO SCH (09:13)
[2020-11-12] MEDS: FINASTERIDE (PROSCAR) 5 MG TAB PO SCH (09:13)
[2020-11-12] MEDS: DOCUSATE SODIUM 100 MG (COLACE) CAP PO SCH (09:13)
[2020-11-12] MEDS: ATENOLOL 25 MG (TENORMIN) TAB PO SCH (09:13)
[2020-11-12] MEDS: lisINopril 20 MG (PRINIVIL) TABLET PO SCH (09:13)
--- NOTE | 2020-11-12 10:15 | Physical Therapy Daily Note ---
PT Daily Note-Current Subjective Patient reluctantly agrees to PT. He demands to go home. PT instructed patient to discuss this with his nurse and physician. Mental Status Patient Orientation: Normal For Age Attachments: Oxygen (was on the bed patient had taken it off and did not want to place it on.), Clark Catheter Transfers SCALE: Activities may be completed with or without assistive devices. 4-Vgtstoeyok-gitkqez completes the activity by him/herself with no assistance from a helper. 5-Set-up or Clean-up Assistance-helper sets up or cleans up; patient completes activity. [place] assists only prior to or following the activity. 4-Supervision or Touching Assistance-helper provides verbal cues and/or touching/steadying and/or contact guard assistance as patient completes activity. Assistance may be provided throughout the activity or intermittently. 3-Partial/Moderate Assistance-helper does LESS THAN HALF the effort. [place] lifts, holds or supports trunk or limbs, but provides less than half the effort. 2-Substantial/Maximal Assistance-helper does MORE THAN HALF the effort. [place] lifts or holds trunk or limbs and provides more than half the effort. 4-Xhxcxzhhn-wrhaae does ALL the effort. Patient does none of the effort to complete the activity. Or, the assistance of 2 or more helpers is required for the patient to complete the activity. If activity was not attempted, code reason: 7-Patient Refused. 9-Not Applicable-not attempted and the patient did not perform the activity before the current illness, exacerbation or injury. 10-Not Attempted due to Environmental Limitations-(lack of equipment, weather restraints, etc.). 88-Not Attempted due to Medical Conditions or Safety Concerns. Sit to Stand (QC): 4 (x 5 sets in restroom with grab bar) Weight Bearing Left Lower Extremity: Left Full Weight Bearing Wheelchair Training Does the Pt Use a Wheelchair?: Yes Wheel 50 ft with 2 turns (QC): 5 (in room) Type of Wheelchair: Manual Assessment Patient tolerated treatment well and remains in w/c with needs met. PT Correction Goals Correction Goals PT Smoking Pipe Coater Goals Time Frame: Nov 23, 2020 Roll Left & Right (QC): 6 Sit to Lying (QC): 6 Lying-Sitting on Side/Bed(QC): 6 Sit to Stand (QC): 6 Chair/Yrz-tx-Ioyhz Xfer(QC): 6 Toilet Transfer (QC): 6 Car Transfer (QC): 88 Does the Patient Walk: Yes Walk 10 feet (QC): 4 Walk 50ft with 2 Turns (QC): 88 Walk 150 ft (QC): 88 Walking 10ft on Uneven Surface: 88 1 Step (curb) (QC): 9 4 Steps (QC): 9 12 Steps (QC): 9 Picking up an Object (QC): 9 Does the Pt use WC or Scooter?: Yes Wheel 50 feet with 2 turns (QC: 6 Type: Manual Wheel 150 feet: 88 Type: Manual PT Plan Treatment/Plan Treatment Plan: Continue Plan of Care Treatment Plan: Bed Mobility, Education, Functional Activity Katlyn, Functional Strength, Gait, Safety, Therapeutic Exercise, Transfers Treatment Duration: Nov 23, 2020 Frequency: 6 times per week Estimated Hrs Per Day: .5 hour per day Time/GCodes Time In: 810 Time Out: 833 Total Billed Treatment Time: 23 Total Billed Treatment 1 visit FA x 2 23 min DHARMESH PAYNE PT Nov 12, 2020 10:14
[2020-11-12] MEDS ORDERED: TAMSULOSIN 0.4 MG (FLOMAX) CAP PO SCH (11:00)
--- NOTE | 2020-11-12 12:00 | Occupational Ther Daily Note ---
OT Current Status-Daily Note Subjective Pt laying in bed, agreeable to OT tx. Pt indicates he wants to go home and feels like he will be able to complete everything he needs to do once home. ADL-Treatment Therapy Code Descriptions/Definitions Functional [place] Measure: 0=Not Assessed/NA 4=Minimal Assistance 1=Total Assistance 5=Supervision or Setup 2=Maximal Assistance 6=Modified [place] 3=Moderate Assistance 7=Complete IndependenceSCALE: Activities may be completed with or without assistive devices. 7-Rotqwiyapl-lunotch completes the activity by him/herself with no assistance from a helper. 5-Set-up or Clean-up Assistance-helper sets up or cleans up; patient completes activity. [place] assists only prior to or following the activity. 4-Supervision or Touching Assistance-helper provides verbal cues and/or touching/steadying and/or contact guard assistance as patient completes activity. Assistance may be provided throughout the activity or intermittently. 3-Partial/Moderate Assistance-helper does LESS THAN HALF the effort. [place] lifts, holds or supports trunk or limbs, but provides less than half the effort. 2-Substantial/Maximal Assistance-helper does MORE THAN HALF the effort. [place] lifts or holds trunk or limbs and provides more than half the effort. 0-Peomothtc-qgsyil does ALL the effort. Patient does none of the effort to complete the activity. Or, the assistance of 2 or more helpers is required for the patient to complete the activity. If activity was not attempted, code reason: 7-Patient Refused. 9-Not Applicable-not attempted and the patient did not perform the activity before the current illness, exacerbation or injury. 10-Not Attempted due to Environmental Limitations-(lack of equipment, weather restraints, etc.). 88-Not Attempted due to Medical Conditions or Safety Concerns. Eating (QC): 6 (Pt opened pudding container and used spoon to eat pudding.) Other Treatment Pt laying in bed, HOB elevated. Pt expressed frustration about being in the hospital because he just wants to go home. OT encouraged pt to talk with his doctor and nurse about his wishes. Pt provided with pudding container, he was able to open the container and eat all of the pudding. He then agreed to completing x15 reps BUE of the following exercises in order to increase BUE strength and functional endurance: shoulder flexion, elbow flexion/extension, finger flexion/extension. Pt took rest breaks as need during exercises. OT educated pt on the benefits of exercises, instructing him to complete a few times throughout the day. He verbalized understanding. Post OT tx, pt laying in bed, call light in reach and all needs met. Education OT Patient Education: Correct positioning, Energy conservation, Exercise program, Modified ADL techniques, Progress toward Goal/Update tx plan, Purpose of tx/functional activities, Rehab process Teaching Recipient: Patient Teaching Methods: Demonstration, Discussion OT Mcc Goals Turbo Generator Oiler Goals Time Frame: Nov 18, 2020 Eating (QC): 6 Oral Hygiene (QC): 09 Toileting Hygiene (QC): 6 Shower/Bathe Self (QC): 6 Upper Body Dressing (QC): 6 Lower Body Dressing (QC): 6 On/Off Footwear (QC): 6 Additional Goals: 1-Demonstrate ADL Tasks, 2-Verbalize Understanding, 3- ImproveStrength/Katlyn 1=Demonstrate adherence to instructed precautions during ADL tasks. 2=Patient will verbalize/demonstrate understanding of assistive devices/modifications for ADL. 3=Patient will improve strength/tolerance for activity to enable patient to perform ADL's. OT Education/Plan Problem List/Assessment Assessment: Decreased Activ Tolerance, Decreased UE Strength, Impaired I ADL's Discharge Recommendations Plan/Recommendations: Continue POC Treatment Plan/Plan of Care Patient would benefit from OT for education, treatment and training to promote independence in ADL's, mobility, safety and/or upper extremity function for ADL's. Plan of Care: ADL Retraining, Functional Mobility, UE Funct Exercise/Act, W/C Management Training Treatment Duration: Nov 18, 2020 Frequency: 5 times per week Estimated Hrs Per Day: .25 hour per day Rehab Potential: Fair Time/GCodes Start Time: 11:00 Stop Time: 11:25 Total Time Billed (hr/min): 25 Billed Treatment Time 1, ADL (15'), EX (10') JEAN MORENO OT Nov 12, 2020 12:00
--- NOTE | 2020-11-12 13:30 | NUR ---
CM FINALIZED DISCHARGE PLAN: Patient is discharging to home today. He is currently on room air et does not appear to need home o2 set up. Spoke with his Faby et she does not voice any concerns or needs other than they would like to have [facility] for Nursing (surgical wound care), Physical Therapy, and Occupational Therapy to evaluate and treat. Faby reports that she will send her daughter to pick him up when he is discharged and to please call her when he is ready. While on swing bed he worked with therapy and staff to increase his level of independence to return to his prior level of functioning. Therapy reports that the patient is now able to independently get up and transfer himself to his wheelchair, get to the bathroom in the room using his wheelchair, independently transfer and toilet himself. Visited with Faby about this and she confirms that this is even a little bit better than what he had been doing prior to this hospitalization d/t pain in his abdomen. Contacted [facility] at this time to notify of referral. No further needs noted at this time. Left a note with primary care nurse about contacting his for discharge and encouraged to contact me if there are any needs that I don't know about at this time so that I can help get that set up.
[2020-11-12] MEDS ORDERED: TMSL.4C PO (13:59)
[2020-11-12] MEDS ORDERED: LISI-552 PO (13:59)
--- NOTE | 2020-11-12 14:05 | D/C HH Face to Face Order ---
D/C Face to Face Orders Reconcile Patient Problems Problems Reviewed?: Yes Instructions for Patient [facility], Patient Instructions/FollowUp: Please continue to take your medications as written. Please follow up with Dr Rawls in the next week to follow up this hospital stay. Follow up with Dr Sal on Wednesday as scheduled. Follow up with Dr Henderson as scheduled. Physician to follow Patient: Dr Rawls Discharge Diet for Home: ADA Diet Patient Data-Allergies,Ht & Wt Patient Allergies: Coded Allergies: No Known Drug Allergies (Verified , 10/15/09) Height (Feet): 5 Height (Inches): 9.00 Weight (Pounds): 226 Weight (Ounces): 9.6 Home Health Need/Face to Face Date of Face to Face: Nov 12, 2020 Clinical Findings: Generalized weakness and fatigue, Unsteady gait I have seen Pt qljq-jy-lmgm: Yes Discharged To: Home Diagnosis/Conditions: COVID19, ischemic colitis Patient is Homebound due to: Kevin fall risk due to instabilty Homebound Status Due to the above stated illness, injury or surgical procedure (medical condition or diagnosis) and associated clinical findings, the patient is homebound because of his/her inability to leave home except with aid of a supportive device and/or person AND leaving the home requires a considerable and taxing effort or is medically contraindicated. Pt req the following assistanc: Aid of another person, Walker Home Health Nursing Orders Home Health Services Order: Nursing Services, Engine Lathe Operator-Evaluate & Treat, Physical Therapy-Evaluate & Treat, Wound Care-Eval/Treat Therapy Orders Therapy Orders: OT (must have SN or PT order), Physical Therapy Therapy Specific Orders: Eval assistive deivces, Teach enviro modifications/safety, Gait training, Increase strength/endurance Certify Stmt I certify that this patient is under my care and that I, a nurse practitioner or a physician; a electrician assistant working with me, had a face to face encounter that - meets the physician face to face encounter requirements with this patient as dated. ANA THOMAS MD Nov 12, 2020 14:05
--- NOTE | 2020-11-12 14:46 | NUR ---
"RD ASSESSMENT PMHx: CAD; HTN; COPD; DM; ischemic colitis; amputation; hypercholesterolemia; PT INTERACTION: Note pt is currently in COVID isolation per chart review. Note all diet information for nutrition assessment is per Reagan RN or per chart review. Reagan states current appetite appears good. Reagan said pt did have some difficulty swallowing on 11/11, but it appears to be resolved today. Note avg PO intake 67% x3d, per chart review. Reagan states no issues with nausea, vomiting, constipation, or diarrhea. Note last BM was 11/11, and pt currently on bowel regimen of colace BID, per chart review. Note unable to determine current level of DM management, and unable to determine recent HbA1c, per chart review. ABNORMAL NUTRITION-RELATED LAB VALUES LOW: Ca 7.8; HIGH: BUN 28; Est. kcal needs: 4335-0068 kcal | 15-18 kcal/kg Est. Pro needs: 94-118 g Pro | 0.8-1.0 g Pro/kg PES STATEMENT: Inadequate oral intake (NI-2.1) related to loss of appetite as evidenced by chart review, and avg PO intake 67% x3d. INTERVENTION: Continue with current diet order of CHO 60g/m 3snack diet. Pt may benefit from nutrition assessment, if PO intake declines. Did not offer diet education on DM management d/t isolation precautions. Will continue to follow and reassess as pt needs, intake, and status change. Bebe HICKMAN, MS RD LD [phone] cell"
--- NOTE | 2020-11-12 15:27 | Discharge Summary ---
Diagnosis/Chief Complaint Date of Admission Nov 08, 2020 at 16:34 Date of Discharge Discharge Date: Nov 12, 2020 Primary Care No,Local Physician Discharge Summary Discharge Physical Exam Allergies: Coded Allergies: No Known Drug Allergies (Verified , 10/15/09) Vitals & I&Os Vital Signs Date Time Temp Pulse Resp B/P (MAP) Pulse Ox O2 Delivery O2 Flow Rate FiO2 11/12/20 08:00 94 Room Air 11/12/20 05:52 36.5 69 18 157/71 (99) 1.00 General Appearance: No Apparent Distress, Chronically ill Respiratory: Lungs Clear, No Respiratory Distress Cardiovascular: Regular Rate, Rhythm, No Murmur Gastrointestinal: Normal Bowel Sounds, Non Tender, Soft Neurologic/Psychiatric: Alert, Oriented x3 Hospital Course Pt was admitted to swing bed status following colectomy for ischemic colitis duet o need for continued IV abx and PT/OT. He did well with this and completed his antibiotic course. He was back to his baseline strength and able to transfer independently in wheelchair. He was discharged home in stable condition with home health to follow up with his PCP and his surgeon Dr Henderson. He is also to follow up with Dr Sal for urinary retention and is to keep his catheter in until that appointment in 3 days. Labs (last 24 hrs) Patient resulted labs reviewed. Pending Labs Discussion & Recommendations Discharge Planning: >30 minutes discharge planning Discharge Home Medications: Active Scripts Active Lisinopril 20 Mg Tablet 20 Mg PO DAILY@0900 Flomax (Tamsulosin HCl) 0.4 Mg Cap 0.4 Mg PO BID Reported Sertraline HCl 50 Mg Tablet 50 Mg PO DAILY Neurontin (Gabapentin) 300 Mg Capsule 300 Mg PO TID Aspirin EC (Aspirin) 81 Mg Tablet.dr 81 Mg PO DAILY Hydrocodone-Acetamin 5-325 mg (Hydrocodone/Acetaminophen) 1 Each Tablet 1 Each PO Q4H PRN Humulin 70-30 Vial (Insulin NPH Hum/Reg Insulin Hm) 100 Unit/1 Ml Vial 10 Unit SQ HS Humulin 70-30 Vial (Insulin NPH Hum/Reg Insulin Hm) 100 Unit/1 Ml Vial 20 Units SQ DAILY Fluoxetine HCl 20 Mg Capsule 20 Mg PO DAILY Vitamin C (Ascorbic Acid) 500 Mg Capsule 500 Mg PO DAILY Calcium (Calcium Carbonate) 600 Mg Tablet 600 Mg PO DAILY Atenolol 25 Mg Tablet 25 Mg PO DAILY Finasteride 5 Mg Tablet 5 Mg PO DAILY Glipizide 10 Mg Tablet 10 Mg PO DAILY Centrum Silver Tablet (Multivit-Min/FA/Lycopene/Lut) 1 Each Tablet 1 Tab PO DAILY Instructions to patient/family Please see electronic discharge instructions given to patient. Copy Copies To 1: SHIRA PATTEN MD, KATELYN M MD Nov 12, 2020 15:27
--- NOTE | 2020-11-12 16:44 | CONSULTATION REPORT ---
DATE OF SERVICE: 11/12/2020 ATTENDING PHYSICIAN: Norris Henderson DO. SUMMARY: An 85-year-old white man known to me for many years with BPH and history of retention who has been handled well with Flomax 0.4 mg daily and Proscar 5 mg daily, lately has been having some issues with retention, but was seen in my office in July and was doing well. He apparently had some abdominal surgery, pneumonia and COVID and had trouble with urination and retention, has a Clark catheter in. He is still on the Flomax and the Proscar. IMPRESSION: Benign prostatic hyperplasia with prostatism and urinary retention. RECOMMENDATIONS: Increase the Flomax to b.i.d. and keep him on the Proscar. I will see him back in my office on Wednesday, keep the Clark catheter then. We will give him trial of voiding at that time and manage accordingly. Job ID: [id number] DocumentID: [id number] Dictated Date: 11/12/2020 13:38:57 Clean Out Driller Helper Date: 11/12/2020 16:43:25 Dictated By: DORA MARINO MD
--- NOTE | 2020-11-12 18:53 | Progress Note - Surgery ---
Subjective Date Seen by a Provider: Nov 11, 2020 Time Seen by a Provider: 18:49 Subjective/Events-last exam Patient doing well. Tolerating diet. Has bowel function. Reyes for retention. Open lower incision packed. No new complaints. Denies n/v fever sweats chills shortness of breath or chest pain. Objective Exam Vital Signs Date Time Temp Pulse Resp B/P (MAP) Pulse Ox O2 Delivery O2 Flow Rate FiO2 11/12/20 08:00 94 Room Air 11/12/20 05:52 36.5 69 18 157/71 (99) 96 Nasal Cannula 1.00 11/11/20 20:00 94 Room Air 11/11/20 19:51 150/64 (92) 11/11/20 18:49 172/70 (104) I & O 11/12/20 07:00 Intake Total 1550 ml Output Total 3550 ml Balance -2000 ml Capillary Refill : Less Than 3 Seconds General Appearance: No Apparent Distress, Chronically ill HEENT: PERRL/EOMI, Normal ENT Inspection Neck: Normal Inspection, Non Tender Respiratory: Chest Non Tender, No Accessory Muscle Use, No Respiratory Distress Cardiovascular: Regular Rate, Rhythm, No Murmur Gastrointestinal: normal bowel sounds, soft, tenderness, other (Abdominal incision with no redness or erythema. The inferior aspect is open with good granulation tissue and some mild serous drainage note. 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.) Neurologic/Psychiatric: Alert, Oriented x3 Skin: Normal Color, Warm/Dry Lymphatic: No Adenopathy Results Lab Laboratory Tests 11/11/20 20:54: Glucometer 251H 11/12/20 04:03: Glucometer 100 11/12/20 11:06: Glucometer 107 Assessment/Plan Assessment/Plan Assessment/Plan abdominal pain diffuse- improved ischemic bowel Hyperglycemia Leukocytosis Covid - 19 s/p ex lap and ileocolic resection with side to side anastamosis Urinary retention- reyes/flomax Continue with daily dressing changes for open wound was opened due to seroma Continue with diabetic diet pain control medical management NEHAL GREENBERG DO Nov 12, 2020 18:53
--- NOTE | 2020-11-13 14:25 | Therapy Team Discharge Summary ---
Therapy Discharge Summary Discharge Recommendations Date of Discharge Nov 12, 2020 at 15:00 Occupational Therapy Pt admits with sepsis/ debility post-COVID dx. Pt completes eating IND, oral care did not complete prior, showering/ LB dressing denies, UB dressing with s/u, footwear with min A (L shoe tying and s/u for prosthesis) and max A for toileting per pt. Pt and OT staff complete 2 fx treatment sessions, with OT providing education/ HEP/ ther ex/ safety training, etc. Pt d/c's with same QC scores as pt did not agree to ADLs second treatment session. Pt d/c's home with with d/c OT recommendations. Decreased Activ Tolerance, Decreased UE Strength, Impaired I ADL's PT Senior Living Goals Dependency Case Manager Goals PT Senior Living Goals Time Frame: Nov 23, 2020 Roll Left to Right (QC): 6 Sit to Lying (QC): 6 Lying-Sitting on Side/Bed(QC): 6 Sit to Stand (QC): 6 Chair/Ylz-yb-Kuqgr Xfer(QC): 6 Car Transfer (QC): 88 Does the Patient Walk: Yes Walk 10 feet (QC): 4 Walk 10ft-Uneven Surface(QC): 88 Walk 50ft with 2 Turns (QC): 88 Walk 150 ft (QC): 88 Does the Pt use WC or Scooter?: Yes Wheel 50 feet with 2 turns (QC: 6 1 Step (curb) (QC): 9 4 Steps (QC): 9 12 Steps (QC): 9 Picking up an Object (QC): 9 OT Dependency Case Manager Goals Dependency Case Manager Goals Time Frame: Nov 18, 2020 Eating (QC): 6 Oral Hygiene (QC): 09 Shower/Bathe Self (QC): 6 Upper Body Dressing (QC): 6 Lower Body Dressing (QC): 6 On/Off Footwear (QC): 6 Toileting Hygiene (QC): 6 Toilet/Commode Transfer (QC): 6 Additional Goals: 1-Demonstrate ADL Tasks, 2-Verbalize Understanding, 3- ImproveStrength/Katlyn 1=Demonstrate adherence to instructed precautions during ADL tasks. 2=Patient will verbalize/demonstrate understanding of assistive devices/modif ications for ADL. 3=Patient will improve strength/tolerance for activity to enable patient to perform ADL's. BETH VASQUES OTR Nov 13, 2020 14:25
== END 2020-11-12 15:00 | disposition home health service (06) | DRG 949 ==
LOC: 4TH 16:34
PROVIDERS: ADMIT Internal Medicine; ATTEND Family Medicine
DX: Z48.815 Encounter for surgical aftercare following surgery on the digestive system (principal); L76.34 Postprocedural seroma of skin and subcutaneous tissue following other procedure; R53.1 Weakness; Z86.19 Personal history of other infectious and parasitic diseases; I12.9 Hypertensive chronic kidney disease with stage 1 through stage 4 chronic kidney disease, or unspecified chronic kidney disease; N18.9 Chronic kidney disease, unspecified; R73.9 Hyperglycemia, unspecified; N40.1 Benign prostatic hyperplasia with lower urinary tract symptoms; R33.8 Other retention of urine; I25.10 Atherosclerotic heart disease of native coronary artery without angina pectoris; E78.5 Hyperlipidemia, unspecified; D72.829 Elevated white blood cell count, unspecified
CPT/HCPCS: 36415; 80048; 82962; 85025

== ENCOUNTER 2020-11-16 09:53 | Observation (INO) | payer MEDICARE ==
[~2020-11-16] VITALS: Ht 175.3 cm; Wt 102.8 kg
[2020-11-16] MEDS ORDERED: LACTATED RINGERS 1,000 ML IV ONE (10:15)
[2020-11-16 10:16] LABS: BASOPHILS % (AUTO) 0 % (0-10); EOSINOPHILS # (AUTO) 0.1 10^3/uL (0.0-0.3); EOSINOPHILS % (AUTO) 2 % (0-10); HEMATOCRIT 35 % (40-54); HEMOGLOBIN 11.3 g/dL (13.3-17.7); LYMPHOCYTES # (AUTO) 0.7 10^3/uL (1.0-4.0); LYMPHOCYTES % (AUTO) 11 % (12-44); MEAN CORPUSCULAR HEMOGLOBIN 30 pg (25-34); MEAN CORPUSCULAR HGB CONC 32 g/dL (32-36); MEAN CORPUSCULAR VOLUME 95 fL (80-99); MEAN PLATELET VOLUME 10.1 fL (9.0-12.2); MONOCYTES # (AUTO) 0.4 10^3/uL (0.0-1.0); MONOCYTES % (AUTO) 7 % (0-12); NEUTROPHILS % (AUTO) 80 % (42-75); PLATELET COUNT 170 10^3/uL (130-400); WHITE BLOOD COUNT 6.2 10^3/uL (4.3-11.0)
--- NOTE | 2020-11-16 10:18 | ED GU-Male ---
General Stated Complaint: AMS Source: patient, family (), EMS Exam Limitations: no limitations History of Present Illness Date Seen by Provider: Nov 16, 2020 Time Seen by Provider: 09:57 Initial Comments Patient presents ER by EMS from home with chief complaint of inability to fully empty his bladder. He has had prostate problems before known to Dr. MARINO, urology and had to have procedures done. He was just released from the hospital on Wednesday or , 2 days ago from a bout of COVID-19. He had to have a Clark catheter and a central line. He is not having any pain anywhere except for pressure in his bladder. Family says he was kind of unresponsive and has had blood sugars that have been all over the place. Blood sugar was 92 per EMS when they arrived. Patient says he is having no fevers cough shortness of air but has continued diarrhea. EMS says he was alert, awake and oriented when they arrived. He has a surgical wound on his abdomen that he says was supposed to have the dressing changed today. He is a poor historian and refers's to his for the rest of the history. Discussed the case with his she says for the past 2 to 3 days he has had low blood sugars only. This morning it was 52 and he was slurring his speech and food was dribbling out of his mouth. They continue to feed him and his sugar came back up. His was worried about a stroke. 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 EMS reports he had no neurologic symptoms by the time they arrived and he had a normal blood sugar. He is also been complaining of urinary symptoms for the past day and got his Clark catheter out 2 to 3 days ago. He had surgery for a volvulus by Dr. Henderson 13 days ago. Since luis were removed perhaps prematurely per the which has caused mild opening of the wound with some presenting fat but no dehiscence of viscera. Primary care by Dr. Osei. Timing/Duration: just prior to arrival Allergies and Home Medications Allergies Coded Allergies: No Known Drug Allergies (Verified , 10/15/09) Home Medications Ascorbic Acid 500 Mg Capsule, 500 MG PO DAILY, (Reported) Aspirin 81 Mg Tablet.dr, 81 MG PO DAILY, (Reported) Atenolol 25 Mg Tablet, 25 MG PO DAILY, (Reported) Calcium Carbonate 600 Mg Tablet, 600 MG PO DAILY, (Reported) Finasteride 5 Mg Tablet, 5 MG PO DAILY, (Reported) Fluoxetine HCl 20 Mg Capsule, 20 MG PO DAILY, (Reported) Gabapentin 300 Mg Capsule, 300 MG PO TID, (Reported) Glipizide 10 Mg Tablet, 10 MG PO DAILY, (Reported) Hydrocodone/Acetaminophen 1 Each Tablet, 1 EACH PO Q4H PRN for PAIN-MODERATE (5- 7), (Reported) Insulin NPH Hum/Reg Insulin Hm 100 Unit/1 Ml Vial, 20 UNITS SQ DAILY, (Reported) Insulin NPH Hum/Reg Insulin Hm 100 Unit/1 Ml Vial, 10 UNIT SQ HS, (Reported) Lisinopril 20 Mg Tablet, 20 MG PO DAILY@0900 Prescribed by: ANA THOMAS on 11/12/20 1353 Multivit-Min/FA/Lycopene/Lut 1 Each Tablet, 1 TAB PO DAILY, (Reported) Sertraline HCl 50 Mg Tablet, 50 MG PO DAILY, (Reported) Tamsulosin HCl 0.4 Mg Cap, 0.4 MG PO BID Prescribed by: ANA THOMAS on 11/12/20 135 Patient Home Medication List Home Medication List Reviewed: Yes Review of Systems Review of Systems Constitutional: No chills, No diaphoresis EENTM: No ear discharge, No ear pain Respiratory: No cough, No short of breath Cardiovascular: No chest pain; Hx of Intervention; No palpitations Gastrointestinal: No abdominal pain, No nausea, No vomiting Genitourinary: denies discharge, denies dysuria Musculoskeletal: No back pain, No joint pain Psychiatric/Neurological: Denies Anxiety, Denies Depressed All Other Systemes Reviewed Negative Unless Noted: Yes Past Diyzyce-Stpwzz-Dqrvrt Hx Patient Social History Alcohol Use: Occasionally Uses Alcohol Beverage of Choice: Beer, Whiskey Smoking Status: Current Someday Smoker Type Used: Cigars 2nd Hand Smoke Exposure: Yes Recent Hopitalizations: Yes Immunizations Up To Date Tetanus Booster (TDap): Unknown Date of Pneumonia Vaccine: Sep 29, 2012 Seasonal Allergies Seasonal Allergies: No Past Medical History Surgeries: Yes (CABG; RIGHT BKA; RIGHT LEG ARTERY BYPASS; PACEMAKER X 2) Abdominal, Amputation, Cardiac, CABG, Eye Surgery, Joint Replacement, Orthopedic, Pacemaker, Vascular Surgery Respiratory: Yes Pneumonia Currently Using CPAP: No Currently Using BIPAP: No Cardiac: Yes (CABG; PACEMAKER) Coronary Artery Disease, High Cholesterol, Hypertension, Peripheral Vascular Neurological: Yes Headaches /Migraines, Neuropathy Reproductive Disorders: No Genitourinary: Yes Prostate Problems, Renal Failure Gastrointestinal: Yes (iscemic bowel) Chronic Constipation 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, Insulin dep HEENT: Yes Cataract Loss of Vision: Denies Hearing Impairment: Hard of Hearing Cancer: No Psychosocial: Yes Depression Integumentary: No Blood Disorders: No Adverse Reaction/Blood Tranf: No Family Medical History Diabetes mellitus GRANDMOTHER FH: leukemia G8 BROTHER Testicular cancer 19 FATHER Cancer, Diabetes Physical Exam Vital Signs Vital Signs - First Documented 11/16/20 09:53 Temp 35.0 Pulse 70 Resp 18 B/P (MAP) 94/53 (67) Pulse Ox 97 O2 Delivery Room Air Capillary Refill : Height, Weight, BMI Height: 5'9.00" Weight: 226lbs. 9.6oz. 102.256863zr; 32.00 BMI Method:Stated General Appearance: no apparent distress, obese, other (Chronically ill) HEENT: PERRL/EOMI, normal ENT inspection, pharynx normal Neck: full range of motion, normal inspection Cardiovascular: normal peripheral pulses, regular rate, rhythm Respiratory: lungs clear, normal breath sounds, no respiratory distress, no accessory muscle use Gastrointestinal: normal bowel sounds, soft, tenderness (Suprapubic), other (Open linear abdominal incision with good granulation tissue packed with gauze and covered with ABD pads) Extremities: normal range of motion, non-tender, normal capillary refill Neurologic/Psychiatric: alert, normal mood/affect, oriented x 3 Skin: normal color, warm/dry Procedures/Interventions Date of ETT Placement: Nov 03, 2020 Progress/Results/Core Measures Suspected Sepsis SIRS Temperature: Pulse: Respiratory Rate: Laboratory Tests 11/16/20 10:09: White Blood Count 6.2 Blood Pressure / Mean: Laboratory Tests 11/16/20 10:09: Creatinine 1.39H, Platelet Count 170, Total Bilirubin 0.8 Results/Orders Lab Results Laboratory Tests Test 11/16/20 10:09 11/16/20 10:15 11/16/20 10:16 11/16/20 12:09 Range/Units White Blood Count 6.2 4.3-11.0 10^3/uL Red Blood Count 3.72 L 4.30-5.52 10^6/uL Hemoglobin 11.3 L 13.3-17.7 g/dL Hematocrit 35 L 40-54 % Mean Corpuscular Volume 95 80-99 fL Mean Corpuscular Hemoglobin 30 25-34 pg Mean Corpuscular Hemoglobin Concent 32 32-36 g/dL Red Cell Distribution Width 14.3 10.0-14.5 % Platelet Count 170 130-400 10^3/uL Mean Platelet Volume 10.1 9.0-12.2 fL Immature Granulocyte % (Auto) 0 % Neutrophils (%) (Auto) 80 H 42-75 % Lymphocytes (%) (Auto) 11 L 12-44 % Monocytes (%) (Auto) 7 0-12 % Eosinophils (%) (Auto) 2 0-10 % Basophils (%) (Auto) 0 0-10 % Neutrophils # (Auto) 5.0 1.8-7.8 10^3/uL Lymphocytes # (Auto) 0.7 L 1.0-4.0 10^3/uL Monocytes # (Auto) 0.4 0.0-1.0 10^3/uL Eosinophils # (Auto) 0.1 0.0-0.3 10^3/uL Basophils # (Auto) 0.0 0.0-0.1 10^3/uL Immature Granulocyte # (Auto) 0.0 0.0-0.1 10^3/uL Sodium Level 140 135-145 MMOL/L Potassium Level 4.0 3.6-5.0 MMOL/L Chloride Level 101 98-107 MMOL/L Carbon Dioxide Level 29 21-32 MMOL/L Anion Gap 10 5-14 MMOL/L Blood Urea Nitrogen 29 H 7-18 MG/DL Creatinine 1.39 H 0.60-1.30 MG/DL Estimat Glomerular Filtration Rate 48 BUN/Creatinine Ratio 21 Glucose Level 70 70-105 MG/DL Calcium Level 8.2 L 8.5-10.1 MG/DL Corrected Calcium 8.9 8.5-10.1 MG/DL Magnesium Level 1.6 1.6-2.4 MG/DL Total Bilirubin 0.8 0.1-1.0 MG/DL Aspartate Amino Transf (AST/SGOT) 47 H 5-34 U/L Alanine Aminotransferase (ALT/SGPT) 54 0-55 U/L Alkaline Phosphatase 125 40-136 U/L C-Reactive Protein High Sensitivity 4.08 H 0.00-0.50 MG/DL Total Protein 5.7 L 6.4-8.2 GM/DL Albumin 3.1 L 3.2-4.5 GM/DL Urine Color YELLOW Urine Clarity CLEAR Urine pH 7.0 5-9 Urine Specific [place] 1.010 L 1.016-1.022 Urine Protein NEGATIVE NEGATIVE Urine Glucose (UA) NEGATIVE NEGATIVE Urine Ketones NEGATIVE NEGATIVE Urine Nitrite NEGATIVE NEGATIVE Urine Bilirubin NEGATIVE NEGATIVE Urine Urobilinogen 0.2 < = 1.0 MG/DL Urine Leukocyte Esterase NEGATIVE NEGATIVE Urine RBC (Auto) NEGATIVE NEGATIVE Urine RBC NONE /HPF Urine WBC NONE /HPF Urine Squamous Epithelial Cells NONE /HPF Urine Crystals NONE /LPF Urine Bacteria NEGATIVE /HPF Urine Casts NONE /LPF Urine Mucus NEGATIVE /LPF Urine Culture Indicated NO Glucometer 69 L 81 70-110 MG/DL My Orders Orders - JODEE,ANTHONY J Catheter(Urinary) Insert & Ass 15 (11/16/20 10:10) Ua Culture If Indicated (11/16/20 10:10) Cbc With Automated Diff (11/16/20 10:10) Comprehensive Metabolic Panel (11/16/20 10:10) Hs C Reactive Protein (11/16/20 10:10) Magnesium (11/16/20 10:10) Ed Iv/Invasive Line Start (11/16/20 10:10) Lactated Ringers (Lr 1000 Ml Iv Solution (11/16/20 10:15) Chest 1 View, Ap/Pa Only (11/16/20 10:28) General/Regular (11/16/20 Breakfast) Accucheck Stat ONCE (11/16/20 11:49) Hydrocodone/Apap 5/325 Tablet (Lortab 5 (11/16/20 12:45) Medications Given in ED Current Medications Medications Dose Ordered Sig/Abbie Route Start Time Stop Time Status Last Admin Dose Admin Acetaminophen/ Hydrocodone Bitart 1 tab ONCE ONCE PO 11/16/20 12:45 11/16/20 12:46 DC 11/16/20 12:50 1 TAB Lactated Ringer's 1,000 ml @ 0 mls/hr Q0M ONCE IV 11/16/20 10:15 12/19/20 10:16 DC 11/16/20 10:33 1,000 MLS/HR Vital Signs/I&O 11/16/20 09:53 Temp 35.0 Pulse 70 Resp 18 B/P (MAP) 94/53 (67) Pulse Ox 97 O2 Delivery Room Air Capillary Refill : Progress Note #1: Time: 10:26 Progress Note Patient is stable at this time neurologically intact with NIH of 0. Suspect his glucose would answer the delirium he was experiencing. He is no longer experiencing it. We are going to change the dressing on his wound to a new sterile gauze and abdominal pad dressing. Plan to get blood work and urine. We put a Clark catheter in to decompress his bladder and that should treat his s ymptoms at this time. Suspect he has a bladder infection related to the catheter and we are going to put him on Rocephin. Were going to offer him a stay in the hospital especially if his blood sugars are labile. If they stay stable throughout his ER stay and his mentation is intact and he is insistent on going home we can potentially support this as well. Progress Note #2: Time: 12:28 Progress Note Patient's labs are not particularly unexpected from just being discharged for COVID-19. His chest x-ray is unremarkable. His blood sugar however after eating a full breakfast with sugared cereal, milk, orange juice he is still only 81. We have talked to him about an observation stay for his hypoglycemia and he agrees to do that. Diagnostic Imaging Diagonstic Imaging: Xray Plain Films/CT/US/NM/MRI: chest (1v) Comments NAME: JOSE ADKINS [facility] REC#: [id number] PT STATUS: REG ER : 1935 PHYSICIAN: ANTHONY ELLSWORTH MD ADMIT DATE: 11/16/20/ER Signed Date of Exam:11/16/20 CHEST 1 VIEW, AP/PA ONLY CHEST 1 VIEW, AP/PA ONLY Indication: Hypoglycemia Comparison: 11/03/2020 Findings: Unchanged marked enlargement of the cardiac silhouette. Chronic left basilar pulmonary opacities are unchanged. Stable left pectoral transvenous pacemaker. No new pulmonary opacities. No appreciable pleural effusion. Impression: 1. Chronic left basilar pulmonary opacities and cardiomegaly. No features of acute abnormality by radiography. Dictated by: Dictated on workstation # [id number] Dict: 11/16/20 1213 Trans: 11/16/20 1220 [facility] [id number] Interpreted by: GAVI LOGAN MD Electronically signed by: GAVI LOGAN MD 11/16/20 1220 Reviewed: Reviewed by Me Departure Communication (Admissions) Time/Spoke to Admitting Phy: 12:30 Dr. Bateman down to the ER seeing the patient and agrees to admit to the floor on D10 with every hour Accu-Cheks for the first 6 hours. Time/Spoke to Consulting Phy: 13:24 Dr. Henderson down to the ER and consulted the patient per Dr. Ballesetros's wishes for the surgical wound. Impression Primary Impression: Hypoglycemia Additional Impressions: Physical deconditioning Sacral decubitus ulcer Qualified Codes: L89.159 - Pressure ulcer of sacral region, unspecified stage Acute urinary retention Disposition: ADMITTED INPATIENT Condition: Stable Admissions Decision to Admit Reason: Admit from ER (General) Decision to Admit/Date: Nov 16, 2020 Time/Decision to Admit Time: 11:45 Departure-Patient Inst. Referrals: NO,LOCAL PHYSICIAN (PCP/Family) Primary Care Physician ANTHONY ELLSWORTH Nov 16, 2020 10:18
[2020-11-16 10:26] LABS: ALBUMIN 3.1 GM/DL (3.2-4.5)
[2020-11-16 10:27] LABS: BILIRUBIN,URINE NEGATIVE (NEGATIVE); CLARITY,URINE CLEAR; COLOR,URINE YELLOW; GLUCOSE, URINE (UA) NEGATIVE (NEGATIVE); KETONES,URINE NEGATIVE (NEGATIVE); LEUKOCYTE ESTERASE ,URINE NEGATIVE (NEGATIVE); NITRITE,URINE NEGATIVE (NEGATIVE); PROTEIN,URINE NEGATIVE (NEGATIVE)
[2020-11-16 10:28] LABS: CALCIUM 8.2 MG/DL (8.5-10.1)
[2020-11-16 10:29] LABS: TOTAL PROTEIN 5.7 GM/DL (6.4-8.2)
[2020-11-16 10:31] LABS: BILIRUBIN,TOTAL 0.8 MG/DL (0.1-1.0)
[2020-11-16 10:33] LABS: CREATININE SERUM 1.39 MG/DL (0.60-1.30)
[2020-11-16 10:35] LABS: MAGNESIUM 1.6 MG/DL (1.6-2.4)
--- NOTE | 2020-11-16 10:41 | NUR ---
DRESSING CHANGED TO ABD. UPPER ABD HAS TRAN ET LOWER ABD OPEN. DR BROUGHT INTO TO LOOK AT INCISION.
[2020-11-16 10:44] LABS: BACTERIA,URINE NEGATIVE /HPF
--- NOTE | 2020-11-16 11:50 | NUR ---
PT HAD A LARGE DIARRHEA BM.
--- NOTE | 2020-11-16 12:20 | Diagnostic Imaging Report ---
CHEST 1 VIEW, AP/PA ONLY Indication: Hypoglycemia Comparison: 11/03/2020 Findings: Unchanged marked enlargement of the cardiac silhouette. Chronic left basilar pulmonary opacities are unchanged. Stable left pectoral transvenous pacemaker. No new pulmonary opacities. No appreciable pleural effusion. Impression: 1. Chronic left basilar pulmonary opacities and cardiomegaly. No features of acute abnormality by radiography. Dictated by: Dictated on workstation # [id number]
--- NOTE | 2020-11-16 12:30 | NUR ---
STATES HE HAS TALKED WITH THE DAUGHTER.
[2020-11-16] MEDS ORDERED: HYDROcodone/APAP 5 MG/325 MG (LORTAB) TAB PO ONE (12:45)
--- NOTE | 2020-11-16 13:00 | NUR ---
DR PAZ HERE
[2020-11-16] MEDS ORDERED: LOPERAMIDE 2 MG (IMODIUM) TABLET PO ONE (13:30)
--- NOTE | 2020-11-16 13:30 | NUR ---
PT MOVED TO A FLOOR BED FOR COMFORT. PT HAS OPEN SORES ON HIS BOTTOM. PT ALSO HAS OPEN SORES ON HIS RIGHT UPPER THIGH FROM TAPE FROM A PREVIOUS CATH. DR RODRIGUEZ. DR GREENBERG IN ROOM AT THIS TIME.
--- NOTE | 2020-11-16 13:57 | History & Physical-Hospitalist ---
History of Present Illness HPI/Chief Complaint CC: Hypoglycemia HPI: This is an 85yoWM who presents to the ER with weakness and found to have refractory and severe hypoglycemia with MERNA. Patient takes OHA at home along with insulin. D10 drip started and patient improved but due to long acting OHA he will need admit. Abdominal wound will be evaluated by Dr Henderson since abdominal surgery 2 weeks ago. Source: patient Exam Limitations: no limitations Date Seen 11/16/20 Time Seen by a Provider: 13:00 Attending Physician Mirna Ballesteros DO PCP No,Local Physician Referring Physician Date of Admission Nov 16, 2020 at 12:45 Home Medications & Allergies Home Medications Reviewed patient Home Medication Reconciliation performed by pharmacy medication reconciliations central sterile technician and/or nursing. Patients Allergies have been reviewed. Allergies Allergies Coded Allergies No Known Drug Allergies (Kykrdxjd02/17/09) Past Jgmrffe-Vogybt-Aclvus Hx Past Med/Social Hx: Reviewed Nursing Past Med/Soc Hx, Reviewed and Corrections made Patient Social History Marrital Status: single Employed/Student: retired Alcohol Use: Occasionally Uses Alcohol Beverage of Choice: Beer, Whiskey Recreational Drug Use: No Smoking Status: Current Someday Smoker Type Used: Cigars 2nd Hand Smoke Exposure: Yes Recent Foreign Travel: No Contact w/other who traveled: No Recent Hopitalizations: Yes Recent Infectious Disease Expo: No Immunizations Up To Date Tetanus Booster (TDap): Unknown Date of Pneumonia Vaccine: Sep 29, 2012 Seasonal Allergies Seasonal Allergies: No Past Medical History Surgeries: Abdominal, Amputation, Cardiac, CABG, Eye Surgery, Joint Replacement, Orthopedic, Pacemaker, Vascular Surgery Respiratory: COPD, Sleep Apnea Currently Using CPAP: No Currently Using BIPAP: No Cardiac: Coronary Artery Disease, High Cholesterol, Hypertension, Peripheral Vascular Neurological: Headaches /Migraines, Neuropathy Reproductive: No Genitourinary: Prostate Problems, Renal Failure Gastrointestinal: Chronic Constipation Musculoskeletal: Amputee Endocrine: Diabetes, Insulin dep HEENT: Cataract Loss of Vision: Denies Hearing Impairment: Hard of Hearing Psychosocial: Depression History of Blood Disorders: No Adverse Reaction to Blood Pimentel: No Family History Diabetes mellitus GRANDMOTHER FH: leukemia G8 BROTHER Testicular cancer 19 FATHER Cancer, Diabetes Review of Systems Constitutional: see HPI, malaise, weakness Physical Exam Physical Exam Vital Signs Vital Signs - First Documented 11/16/20 11/16/20 09:53 16:54 Temp 35.0 Pulse 70 Resp 18 B/P (MAP) 94/53 (67) Pulse Ox 97 O2 Delivery Room Air FiO2 21 Capillary Refill : Less Than 3 Seconds Height, Weight, BMI Height: 5'9.00" Weight: 226lbs. 9.6oz. 102.665930gy; 33.00 BMI Method:Stated General Appearance: No Apparent Distress, Chronically ill Eyes: Right Eye Normal Inspection, Right Eye PERRL HEENT: PERRL/EOMI, Normal ENT Inspection, Pharynx Normal, Moist Mucous Membranes Neck: Full Range of Motion, Normal Inspection, Non Tender Respiratory: Chest Non Tender, Lungs Clear, Normal Breath Sounds, No Accessory Muscle Use, No Respiratory Distress Cardiovascular: Regular Rate, Rhythm, No Edema, No Gallop, No JVD, No Murmur, Normal Peripheral Pulses Gastrointestinal: Normal Bowel Sounds, No Organomegaly, No Pulsatile Mass, Non Tender, Soft Back: Normal Inspection, No CVA Tenderness, No Vertebral Tenderness Extremity: Normal Capillary Refill, Normal Inspection, Normal Range of Motion, Non Tender, No Calf Tenderness, No Pedal Edema, Other (amputee) Neurologic/Psychiatric: Alert, Oriented x3, No Motor/Sensory Deficits, Normal Mood/Affect Skin: Normal Color, Warm/Dry Lymphatic: No Adenopathy Results Results/Procedures Labs Laboratory Tests 11/16/20 10:09 11/17/20 05:21 Patient resulted labs reviewed. Assessment/Plan Admission Diagnosis Assessment: Severe and refractory hypoglycemia due to OHA and insulin MERNA s/p partial colon resection a few months ago Ischemic heart disease PVD severe Right BKA Smoker CARRIE COPD Urinary retention hx DM OOC Volume overload Plan: D10 drip Monitor sugars closely Admission Status: Observation Diagnosis/Problems Diagnosis/Problems (1) Hypoglycemia Status: Acute MIRNA BALLESTEROS DO Nov 16, 2020 13:57
--- NOTE | 2020-11-16 14:10 | NUR ---
JOSE ADKINS admitted to room 413-1, with an admitting diagnosis of HYPOGLYCEMIA, DECONDITIONING, URINARY RETENTION, SACRAL DECUB, on 11/16/20 from ED via BED, accompanied by ED PCT. JOSE ADKINS introduced to surroundings, call light, bed controls, phone, TV, temperature control, lights, meal times, smoking policy, visitor policy, side rail policy, bathrooms and showers. Patient Rights given to patient in the handbook. JOSE ADKINS verbalizes understanding that [facility] is not responsible for the loss or damage to any personal effects or valuables that are kept in the patients posession during their hospitalization. The following Patient Care Plans were discussed with the PATIENT: Discharge Planning, URINARY RETENTION, and HYPOGLYCEMNIA. JOSE ADKINS verbalizes understanding of Interdisciplinary Patient Education. Patient and/or family were informed about the Rapid Response Team and its purpose.
[2020-11-16 14:12] VITALS: BP 138/66
[2020-11-16 14:16] VITALS: BP 138/66
[2020-11-16] MEDS ORDERED: ACETAMINOPHEN 325 MG TABLET PO PRN (14:45)
[2020-11-16] MEDS ORDERED: HYDROcodone/APAP 5 MG/325 MG (LORTAB) TAB PO PRN (14:45)
[2020-11-16] MEDS ORDERED: ONDANSETRON 4 MG/2 ML (SDV) Z0FRAN IV PRN (14:45)
[2020-11-16] MEDS: DEXTROSE 10% IV SOLUTION 1,000 ML IV SCH (15:01)
[2020-11-16 16:00] VITALS: BP 123/57
[2020-11-16] MEDS: inSUlin ASPART (NovoLOG) 1 UNIT/0.01 ML (CHARGE PER UNIT) SC SCH ×2 (16:06→20:20)
--- NOTE | 2020-11-16 16:52 | NUR ---
CALLED CONSULT TO DR NAVA.
[2020-11-16 16:54] VITALS: BP 94/53
[2020-11-16] MEDS ORDERED: RT-ALBUTEROL SULF 2.5 MG/3 ML PRE-MIX VIAL INH PRN (17:00)
--- NOTE | 2020-11-16 18:00 | NUR ---
DR NAVA HERE TO SEE PATIENT. AREA OF CONCERN ON COCCYX/SACRUM IS MOISTURE RELATED, NOT PRESSURE RELATED. ZINC AND MAYBE ALLEVYN
--- NOTE | 2020-11-16 18:08 | Wound Care Assessment ---
Wound Care Assessment Date Seen by Provider: Nov 16, 2020 Time Seen by Provider: 18:02 Chief Complaint Sacral ulcer. HPI The patient is a pleasant 85 year old male with MASD of sacral area. It is superficial and best treated with Zn Oxide paste. Will see as needed. Recent COVID-19 Smoking Status: Current Someday Smoker Recreational Drug Use: No Alcohol Use: Occasionally Uses Review of Systems Pulmonary: No Dyspnea Exam Vital Signs Date Time Temp Pulse Resp B/P (MAP) Pulse Ox O2 Delivery O2 Flow Rate FiO2 11/16/20 16:54 35.0 70 97 21 11/16/20 16:00 18 123/57 (79) Room Air Capillary Refill : Less Than 3 Seconds General Appearance: no apparent distress Back: other (small excoriation of sacral area.) Results Laboratory Tests 11/16/20 10:09: White Blood Count 6.2, Red Blood Count 3.72L, Hemoglobin 11.3L, Hematocrit 35L, Mean Corpuscular Volume 95, Mean Corpuscular Hemoglobin 30, Mean Corpuscular Hemoglobin Concent 32, Red Cell Distribution Width 14.3, Platelet Count 170, Mean Platelet Volume 10.1, Immature Granulocyte % (Auto) 0, Neutrophils (%) (Auto) 80H, Lymphocytes (%) (Auto) 11L, Monocytes (%) (Auto) 7, Eosinophils (%) (Auto) 2, Basophils (%) (Auto) 0, Neutrophils # (Auto) 5.0, Lymphocytes # (Auto) 0.7L, Monocytes # (Auto) 0.4, Eosinophils # (Auto) 0.1, Basophils # (Auto) 0.0, Immature Granulocyte # (Auto) 0.0, Sodium Level 140, Potassium Level 4.0, Chloride Level 101, Carbon Dioxide Level 29, Anion Gap 10, Blood Urea Nitrogen 29H, Creatinine 1.39H, Estimat Glomerular Filtration Rate 48, BUN/Creatinine R atio 21, Glucose Level 70, Calcium Level 8.2L, Corrected Calcium 8.9, Magnesium Level 1.6, Total Bilirubin 0.8, Aspartate Amino Transf (AST/SGOT) 47H, Alanine Aminotransferase (ALT/SGPT) 54, Alkaline Phosphatase 125, C-Reactive Protein High Sensitivity 4.08H, Total Protein 5.7L, Albumin 3.1L 11/16/20 10:15: Urine Color YELLOW, Urine Clarity CLEAR, Urine pH 7.0, Urine Specific [place] 1.010L, Urine Protein NEGATIVE, Urine Glucose (UA) NEGATIVE, Urine Ketones NEGATIVE, Urine Nitrite NEGATIVE, Urine Bilirubin NEGATIVE, Urine Urobilinogen 0.2, Urine Leukocyte Esterase NEGATIVE, Urine RBC (Auto) NEGATIVE, Urine RBC NONE, Urine WBC NONE, Urine Squamous Epithelial Cells NONE, Urine Crystals NONE, Urine Bacteria NEGATIVE, Urine Casts NONE, Urine Mucus NEGATIVE, Urine Culture Indicated NO 11/16/20 10:16: Glucometer 69L 11/16/20 12:09: Glucometer 81 11/16/20 15:50: Glucometer 104 11/16/20 16:58: Glucometer 93 11/16/20 17:44: Glucometer 73 Assessment/Plan/Dx 1. Moisture associated skin damage of sacral area. Plan: Zn Oxide cream BID. SKY NAVA MD Nov 16, 2020 18:08
[2020-11-16] MEDS ORDERED: ENOXAPARIN 40 MG/0.4 ML (LOVENOX) SYR SC SCH (18:15)
[2020-11-16] MEDS ORDERED: DEXTROSE 50% 50 ML (IMS) SYR IV PRN (18:45)
[2020-11-16] MEDS ORDERED: TAMSULOSIN 0.4 MG (FLOMAX) CAP PO ONE (18:58)
[2020-11-16] MEDS ORDERED: GABAPENTIN 300 MG (NEURONTIN) CAP ONE (18:59)
[2020-11-16 19:02] VITALS: BP 142/67
--- NOTE | 2020-11-16 20:03 | Consultation - Surgery ---
History of Present Illness History of Present Illness Patient Consulted On(hebert/time) 11/16/20 19:57 Date Seen by Provider: Nov 16, 2020 Time Seen by Provider: 19:57 History of Present Illness Consult requested by Dr. Ballesteros for open wound to abdomen. Patient is 85-year-old male known to me he recently had a segment of ischemic bowel of small bowel that had to be resected and had ileocolonic resection with 3 anastomosis in [id number] fashion. Patient has been having some difficulties with his blood sugars and being admitted. Patient states his abdomen is not causing any problems. He is having a little bit of loose stools at times. He is continuing to pack his wound as he was informed previously. Patient with no other complaints at this time. Denies any nausea vomiting fever sweats chills shortness of breath or chest pain. Allergies and Home Medications Allergies Coded Allergies: No Known Drug Allergies (Verified , 10/15/09) Home Medications Ascorbic Acid 500 Mg Capsule, 500 MG PO DAILY, (Reported) Aspirin 81 Mg Tablet.dr, 81 MG PO DAILY, (Reported) Atenolol 25 Mg Tablet, 25 MG PO DAILY, (Reported) Calcium Carbonate 600 Mg Tablet, 600 MG PO DAILY, (Reported) Finasteride 5 Mg Tablet, 5 MG PO DAILY, (Reported) Fluoxetine HCl 20 Mg Capsule, 20 MG PO DAILY, (Reported) Gabapentin 300 Mg Capsule, 300 MG PO TID, (Reported) Glipizide 10 Mg Tablet, 10 MG PO DAILY, (Reported) Hydrocodone/Acetaminophen 1 Each Tablet, 1 EACH PO Q4H PRN for PAIN-MODERATE (5- 7), (Reported) Insulin NPH Hum/Reg Insulin Hm 100 Unit/1 Ml Vial, 20 UNITS SQ DAILY, (Reported) Insulin NPH Hum/Reg Insulin Hm 100 Unit/1 Ml Vial, 10 UNIT SQ HS, (Reported) Lisinopril 20 Mg Tablet, 20 MG PO DAILY@0900 Prescribed by: ANA THOMAS on 11/12/20 1357 Multivit-Min/FA/Lycopene/Lut 1 Each Tablet, 1 TAB PO DAILY, (Reported) Sertraline HCl 50 Mg Tablet, 50 MG PO DAILY, (Reported) Tamsulosin HCl 0.4 Mg Cap, 0.4 MG PO BID Prescribed by: ANA THOMAS on 11/12/20 1350 Patient Home Medication List Home Medication List Reviewed: Yes Past [id number] Hx Patient Social History Alcohol Use: Occasionally Uses Number of Drinks Today: GG Recreational Drug Use: No Smoking Status: Current Someday Smoker Type Used: Cigars 2nd Hand Smoke Exposure: Yes Recent Foreign Travel: No Contact w/Someone Who Travel: No Recent Infectious Disease Expo: No Recent Hopitalizations: Yes Immunizations Up To Date Tetanus Booster (TDap): Unknown Date of Pneumonia Vaccine: Sep 29, 2012 Seasonal Allergies Seasonal Allergies: No Surgeries History of Surgeries: Yes (CABG; RIGHT BKA; RIGHT LEG ARTERY BYPASS; PACEMAKER X 2) Surgeries: Abdominal, Amputation, Cardiac, CABG, Eye Surgery, Joint Replacement, Orthopedic, Pacemaker, Vascular Surgery Respiratory History of Respiratory Disorde: Yes (COVID) Respiratory Disorders: Pneumonia Cardiovascular History of Cardiac Disorders: Yes (CABG; PACEMAKER) Cardiac Disorders: Coronary Artery Disease, High Cholesterol, Hypertension, Peripheral Vascular Neurological History of Neurological Disord: Yes Neurological Disorders: Headaches /Migraines, Neuropathy Reproductive System Hx Reproductive Disorders: No Genitourinary History of Genitourinary Disor: Yes Genitourinary Disorders: Prostate Problems, Renal Failure Gastrointestinal History of Gastrointestinal Di: Yes (iscemic bowel) Gastrointestinal Disorders: Chronic Constipation Musculoskeletal History of Musculoskeletal Dis: Yes (RIGHT BKA) Musculoskeletal Disorders: Amputee Endocrine History of Endocrine Disorders: Yes Endocrine Disorders: Diabetes, Insulin dep HEENT History of HEENT Disorders: Yes HEENT Disorders: Cataract Loss of Vision: Denies Hearing Impairment: Hard of Hearing Cancer History of Cancer: No Psychosocial History of Psychiatric Problem: Yes Behavioral Health Disorders: Depression Integumentary History of Skin or Integumenta: No Blood Transfusions History of Blood Disorders: No Adverse Reaction to a Blood Tr: No Reviewed Nursing Assessment Reviewed/Agree w Nursing PMH: Yes Family Medical History Significant Family History: Cancer, Diabetes Family Medial History: Diabetes mellitus GRANDMOTHER FH: leukemia G8 BROTHER Testicular cancer 19 FATHER Review of Systems-General Constitutional: No chills, No diaphoresis EENTM: hearing loss; No ear pain Respiratory: No cough, No dyspnea on exertion Cardiovascular: No chest pain, No edema Gastrointestinal: No abdominal pain; diarrhea; No nausea, No vomiting; other (Open wound midline lower incision) Genitourinary: other (Urinary retention) Musculoskeletal: No back pain, No joint pain Skin: No change in color, No change in hair/nails Psychiatric/Neurological: Denies Anxiety, Denies Depressed All Other Systems Reviewed Negative Unless Noted: Yes (Negative excepted noted.) Physical Exam-General Problems Physical Exam Vital Signs Vital Signs - First Documented 11/16/20 11/16/20 09:53 16:54 Temp 35.0 Pulse 70 Resp 18 B/P (MAP) 94/53 (67) Pulse Ox 97 O2 Delivery Room Air FiO2 21 Capillary Refill : Less Than 3 Seconds General Appearance: WD/WN, no apparent distress HEENT: PERRL/EOMI, normal ENT inspection Neck: non-tender, supple Respiratory: chest non-tender, no respiratory distress, no accessory muscle use Cardiovascular: regular rate, rhythm, no JVD Gastrointestinal: non tender, soft, other (Incision midline with lower aspect of incision open no signs of infection) Back: no CVA tenderness, no vertebral tenderness Extremities: non-tender, normal inspection, other (Right below-knee amputation) Neurologic/Psychiatric: chief estimator II-XII nml as tested, alert, normal mood/affect, oriented x 3 Skin: normal color, warm/dry, other (Sacral skin minimal breakdown) Lymphatic: no adenopathy Data Review Labs Laboratory Tests 11/16/20 10:09: White Blood Count 6.2, Red Blood Count 3.72L, Hemoglobin 11.3L, Hematocrit 35L, Mean Corpuscular Volume 95, Mean Corpuscular Hemoglobin 30, Mean Corpuscular Hemoglobin Concent 32, Red Cell Distribution Width 14.3, Platelet Count 170, Mean Platelet Volume 10.1, Immature Granulocyte % (Auto) 0, Neutrophils (%) (Auto) 80H, Lymphocytes (%) (Auto) 11L, Monocytes (%) (Auto) 7, Eosinophils (%) (Auto) 2, Basophils (%) (Auto) 0, Neutrophils # (Auto) 5.0, Lymphocytes # (Auto) 0.7L, Monocytes # (Auto) 0.4, Eosinophils # (Auto) 0.1, Basophils # (Auto) 0.0, Immature Granulocyte # (Auto) 0.0, Sodium Level 140, Potassium Level 4.0, Chloride Level 101, Carbon Dioxide Level 29, Anion Gap 10, Blood Urea Nitrogen 29H, Creatinine 1.39H, Estimat Glomerular Filtration Rate 48, BUN/Creatinine Ratio 21, Glucose Level 70, Calcium Level 8.2L, Corrected Calcium 8.9, Magnesium Level 1.6, Total Bilirubin 0.8, Aspartate Amino Transf (AST/SGOT) 47H, Alanine Aminotransferase (ALT/SGPT) 54, Alkaline Phosphatase 125, C-Reactive Protein High Sensitivity 4.08H, Total Protein 5.7L, Albumin 3.1L 11/16/20 10:15: Urine Color YELLOW, Urine Clarity CLEAR, Urine pH 7.0, Urine Specific [place] 1.010L, Urine Protein NEGATIVE, Urine Glucose (UA) NEGATIVE, Urine Ketones NEGATIVE, Urine Nitrite NEGATIVE, Urine Bilirubin NEGATIVE, Urine Urobilinogen 0.2, Urine Leukocyte Esterase NEGATIVE, Urine RBC (Auto) NEGATIVE, Urine RBC NONE, Urine WBC NONE, Urine Squamous Epithelial Cells NONE, Urine Crystals NONE, Urine Bacteria NEGATIVE, Urine Casts NONE, Urine Mucus NEGATIVE, Urine Culture Indicated NO 11/16/20 10:16: Glucometer 69L 11/16/20 12:09: Glucometer 81 11/16/20 15:50: Glucometer 104 11/16/20 16:58: Glucometer 93 11/16/20 17:44: Glucometer 73 11/16/20 18:30: Glucometer 99 11/16/20 19:03: Glucometer 106 Assessment/Plan Assessment/Plan Assessment/Plan Hypoglycemia Status post exploratory laparotomy with ileocolonic anastomosis with cytocide anastomosis Urinary retention Patient to continue with wound care which would irrigate wound and pack wet to dry daily and as needed. No surgical intervention needed at this time. Clinical Quality Measures DVT/VTE Risk/Contraindication: Risk Factor Score Per Nursin RFS Level Per Nursing on Admit: 4+=Very High NEHAL GREENBERG DO Nov 16, 2020 20:03
[2020-11-16] MEDS: TAMSULOSIN 0.4 MG (FLOMAX) CAP PO SCH (21:00)
[2020-11-16] MEDS: ENOXAPARIN 40 MG/0.4 ML (LOVENOX) SYR SC SCH (21:00)
[2020-11-16] MEDS: GABAPENTIN 300 MG (NEURONTIN) CAP PO SCH (21:00)
[2020-11-17] VITALS (7 sets, daily range): BP systolic 103–131; BP diastolic 52–63
[2020-11-17] MEDS: inSUlin ASPART (NovoLOG) 1 UNIT/0.01 ML (CHARGE PER UNIT) SC SCH ×4 (05:00→20:43)
[2020-11-17] MEDS: HYDROcodone/APAP 5 MG/325 MG (LORTAB) TAB PO PRN ×5 (05:02→22:03)
[2020-11-17] MEDS: MULTIVIT W/MINERALS TAB (THERAGRAN M) PO SCH (05:04)
[2020-11-17 05:45] LABS: BASOPHILS % (AUTO) 0 % (0-10); EOSINOPHILS # (AUTO) 0.2 10^3/uL (0.0-0.3); EOSINOPHILS % (AUTO) 4 % (0-10); HEMATOCRIT 31 % (40-54); HEMOGLOBIN 9.7 g/dL (13.3-17.7); LYMPHOCYTES # (AUTO) 1.1 10^3/uL (1.0-4.0); LYMPHOCYTES % (AUTO) 27 % (12-44); MEAN CORPUSCULAR HEMOGLOBIN 30 pg (25-34); MEAN CORPUSCULAR HGB CONC 31 g/dL (32-36); MEAN CORPUSCULAR VOLUME 96 fL (80-99); MEAN PLATELET VOLUME 10.7 fL (9.0-12.2); MONOCYTES # (AUTO) 0.5 10^3/uL (0.0-1.0); MONOCYTES % (AUTO) 11 % (0-12); NEUTROPHILS # (AUTO) 2.5 10^3/uL (1.8-7.8); NEUTROPHILS % (AUTO) 59 % (42-75); PLATELET COUNT 150 10^3/uL (130-400); WHITE BLOOD COUNT 4.3 10^3/uL (4.3-11.0)
[2020-11-17 06:00] LABS: ALBUMIN 2.6 GM/DL (3.2-4.5)
[2020-11-17 06:02] LABS: CALCIUM 7.6 MG/DL (8.5-10.1)
[2020-11-17 06:03] LABS: TOTAL PROTEIN 4.8 GM/DL (6.4-8.2)
[2020-11-17 06:05] LABS: BILIRUBIN,TOTAL 0.7 MG/DL (0.1-1.0)
[2020-11-17 06:06] LABS: CREATININE SERUM 1.27 MG/DL (0.60-1.30)
--- NOTE | 2020-11-17 07:26 | Progress Note - Hospitalist ---
Subjective HPI/CC On Admission Date Seen by Provider: Nov 17, 2020 Time Seen by Provider: 11:00 CC: Hypoglycemia HPI: This is an 85yoWM who presents to the ER with weakness and found to have refractory and severe hypoglycemia with MERNA. Patient takes OHA at home along with insulin. D10 drip started and patient improved but due to long acting OHA he will need admit. Abdominal wound will be evaluated by Dr Henderson since abdominal surgery 2 weeks ago. Subjective/Events-last exam Patient feels better Sugar improved so will DC D10 drip and do accuchecks ac/hs Updated son at his request for a phone call and I spoke to his and they wanted a few things: Glucometer pod for continuous monitoring, education on insulin administration, in-home services Review of Systems Musculoskeletal: leg pain Objective Exam Vital Signs Vital Signs Date Time Temp Pulse Resp B/P (MAP) Pulse Ox O2 Delivery O2 Flow Rate FiO2 11/18/20 04:09 70 18 103/51 (68) 94 Room Air 11/17/20 23:49 36.6 11/16/20 16:54 21 Capillary Refill : Less Than 3 Seconds General Appearance: No Apparent Distress, WD/WN, Chronically ill, Obese Respiratory: Chest Non Tender, Lungs Clear, Normal Breath Sounds, No Accessory Muscle Use, No Respiratory Distress Cardiovascular: Regular Rate, Rhythm, No Edema, No Gallop, No JVD, No Murmur, Normal Peripheral Pulses Neurologic/Psychiatric: Alert, Oriented x3, No Motor/Sensory Deficits, Normal Mood/Affect Results/Procedures Lab Patient resulted labs reviewed. Assessment/Plan Assessment and Plan Assess & Plan/Chief Complaint Assessment: Severe and refractory hypoglycemia due to OHA and insulin MERNA s/p partial colon resection a few months ago Ischemic heart disease PVD severe Right BKA Smoker CARRIE COPD Urinary retention hx DM OOC Volume overload Plan: D10 drip Monitor sugars closely 11/17/20: DC D10 drip Accuchecks ac/hs Needs SW consult Diagnosis/Problems Diagnosis/Problems (1) Hypoglycemia Status: Acute Clinical Quality Measures DVT/VTE Risk/Contraindication: Risk Factor Score Per Nursin RFS Level Per Nursing on Admit: 4+=Very High AGATHA PAZ DO Nov 17, 2020 07:26
[2020-11-17] MEDS: TAMSULOSIN 0.4 MG (FLOMAX) CAP PO SCH ×2 (08:45→20:21)
[2020-11-17] MEDS: LOPERAMIDE 2 MG (IMODIUM) TABLET PO PRN (08:45)
[2020-11-17] MEDS: ASCORBIC ACID (VIT C) 500 MG TABLET PO SCH (08:45)
[2020-11-17] MEDS: FLUoxetine HCL 20 MG (PROzac) CAP PO SCH (08:45)
[2020-11-17] MEDS: ASPIRIN E.C. 81 MG (ECOTRIN) TAB PO SCH (08:45)
[2020-11-17] MEDS: CALCIUM CARBONATE 600 MG (CALCARB) TAB PO SCH (08:45)
[2020-11-17] MEDS: GABAPENTIN 300 MG (NEURONTIN) CAP PO SCH ×3 (08:46→20:21)
[2020-11-17] MEDS: lisINopril 20 MG (PRINIVIL) TABLET PO SCH (08:46)
[2020-11-17] MEDS: FINASTERIDE (PROSCAR) 5 MG TAB PO SCH (08:46)
[2020-11-17] MEDS: SERTRALINE 50 MG (ZOLOFT) TABLET PO SCH (08:46)
[2020-11-17] MEDS: ATENOLOL 25 MG (TENORMIN) TAB PO SCH (08:46)
--- NOTE | 2020-11-17 09:00 | NUR ---
THE PATIENT'S SON CAITLYN ADKINS ([phone]) CALLED. HE WANTS THE DOCTOR TO CALL HIM WITH UPDATES TODAY. HE ALSO ASKED ABOUT A STRATEGIC PARTNERSHIP MANAGER AND GETTING MORE HELP SET UP AT HOME. THE GRANDDAUGHTER HAS BEEN THE ONE HELPING THE PATIENT AND HIS . HE DOES NOT FEEL THAT THAT IS WORKING OUT VERY WELL. THEY NEED SOMEONE TO HELP SET UP AND MANAGE THE DIABETES, SUCH MEAL PLANNING AND SCHEDULES OF BLOOD SUGARS AND INSULIN.
[2020-11-17] MEDS: DEXTROSE 10% IV SOLUTION 1,000 ML IV SCH (10:27)
--- NOTE | 2020-11-17 12:32 | Progress Note - Surgery ---
JACINTA SAENZ MED STUDENT 11/17/20 1232: Subjective Date Seen by a Provider: Nov 17, 2020 Time Seen by a Provider: 09:00 Subjective/Events-last exam Pt was seen and examined. He was in bed resting, NAD. States that he feels well with no complaints. Denies chest pain, abd pain, N/V. States that it has been a couple of days since his last BM, and that they have been loose. Says that his midline abd incision has not been draining nearly as much as it was before. Review of Systems General: No Chills HEENT: No Head Aches Pulmonary: No Dyspnea Cardiovascular: No: Chest Pain, Palpitations, Lt Headedness Gastrointestinal: No: Nausea, Vomiting, Abdominal Pain Genitourinary: No Dysuria Objective Exam Vital Signs Date Time Temp Pulse Resp B/P (MAP) Pulse Ox O2 Delivery O2 Flow Rate FiO2 11/17/20 10:19 Room Air 11/17/20 08:00 35.6 70 16 113/53 (73) 94 Room Air 11/17/20 08:00 Room Air 11/17/20 07:00 70 11/17/20 04:00 36.2 70 16 109/56 (73) 92 Room Air 11/17/20 01:00 70 11/17/20 00:00 36.0 70 16 112/55 (74) 91 Room Air 11/16/20 20:00 Room Air 11/16/20 19:02 36.2 71 18 142/67 (92) Room Air 11/16/20 19:00 70 11/16/20 16:54 35.0 70 97 21 11/16/20 16:05 70 11/16/20 16:00 36.5 69 18 123/57 (79) 94 Room Air 11/16/20 14:16 36.2 71 18 138/66 97 Room Air 11/16/20 14:15 97 Room Air 11/16/20 14:12 36.2 71 18 138/66 97 Room Air 11/16/20 14:06 71 16 118/52 96 Room Air I & O 11/17/20 07:00 Intake Total 1220 ml Output Total 1875 ml Balance -655 ml Capillary Refill : Less Than 3 Seconds General Appearance: No Apparent Distress, Chronically ill, Obese HEENT: PERRL/EOMI, Normal ENT Inspection, Pharynx Normal, Moist Mucous Membranes Neck: Full Range of Motion, Normal Inspection, Non Tender Respiratory: Chest Non Tender, Lungs Clear, Normal Breath Sounds, No Accessory Muscle Use, No Respiratory Distress Cardiovascular: Regular Rate, Rhythm, No Gallop, No JVD, No Murmur, Normal Peripheral Pulses, Other (mild edema to LLE) Gastrointestinal: normal bowel sounds, non tender, soft, other (Incision midline with lower aspect of incision open no signs of infection) Extremity: Normal Capillary Refill, Normal Inspection, Normal Range of Motion, Non Tender, Other (R BKA) Neurologic/Psychiatric: Alert, Oriented x3, No Motor/Sensory Deficits, Normal Mood/Affect Skin: Normal Color, Warm/Dry Lymphatic: No Adenopathy Results Lab Laboratory Tests 11/16/20 15:50: Glucometer 104 11/16/20 16:58: Glucometer 93 11/16/20 17:44: Glucometer 73 11/16/20 18:30: Glucometer 99 11/16/20 19:03: Glucometer 106 11/16/20 19:58: Glucometer 101 11/16/20 20:51: Glucometer 96 11/16/20 22:02: Glucometer 93 11/17/20 00:30: Glucometer 129H 11/17/20 05:00: Glucometer 117H 11/17/20 05:21: White Blood Count 4.3, Red Blood Count 3.24L, Hemoglobin 9.7L, Hematocrit 31L, Mean Corpuscular Volume 96, Mean Corpuscular Hemoglobin 30, Mean Corpuscular Hemoglobin Concent 31L, Red Cell Distribution Width 14.5, Platelet Count 150, Mean Platelet Volume 10.7, Immature Granulocyte % (Auto) 0, Neutrophils (%) (Auto) 59, Lymphocytes (%) (Auto) 27, Monocytes (%) (Auto) 11, Eosinophils (%) (Auto) 4, Basophils (%) (Auto) 0, Neutrophils # (Auto) 2.5, Lymphocytes # (Auto) 1.1, Monocytes # (Auto) 0.5, Eosinophils # (Auto) 0.2, Basophils # (Auto) 0.0, Immature Granulocyte # (Auto) 0.0, Sodium Level 138, Potassium Level 4.0, Chloride Level 105, Carbon Dioxide Level 25, Anion Gap 8, Blood Urea Nitrogen 24H, Creatinine 1.27, Estimat Glomerular Filtration Rate 54, BUN/Creatinine Ratio 19, Glucose Level 120H, Calcium Level 7.6L, Corrected Calcium 8.7, Total Bilirubin 0.7, Aspartate Amino Transf (AST/SGOT) 26, Alanine Aminotransferase (ALT/SGPT) 34, Alkaline Phosphatase 88, Total Protein 4.8L, Albumin 2.6L 11/17/20 11:10: Glucometer 202H Assessment/Plan Assessment/Plan Assessment/Plan Hypoglycemia - improved since admission, managed by medicine Status post exploratory laparotomy with ileocolonic anastomosis with side to epifanio e anastomosis - midline abd incision w/o s/s infection, minimal serous drainage Urinary retention Patient to continue with wound care which would irrigate wound and pack wet to dry daily and as needed. No surgical intervention needed at this time. Continue to monitor for s/s infection, bowel issues, VS, labs Clinical Quality Measures DVT/VTE Risk/Contraindication: Risk Factor Score Per Nursin RFS Level Per Nursing on Admit: 4+=Very High NORRIS HENDERSON DO 11/17/20 1422: Subjective Subjective/Events-last exam Patient feeling well today. Feels better since blood sugars have improved. No pain in his abdomen currently. He is having bowel function. Serous fluid from open incision. Denies nausea vomiting fever sweats chills shortness of breath or chest pain at this time. Objective Exam General Appearance: No Apparent Distress, Chronically ill, Obese HEENT: PERRL/EOMI, Normal ENT Inspection Neck: Full Range of Motion, Normal Inspection, Non Tender Respiratory: Chest Non Tender, No Accessory Muscle Use, No Respiratory Distress Cardiovascular: Regular Rate, Rhythm, No JVD Gastrointestinal: non tender, soft, other (Incision midline with lower aspect of incision open no signs of infection, slight serous fluid) Extremity: Normal Inspection, Non Tender, Other (R BKA) Neurologic/Psychiatric: Alert, Oriented x3, No Motor/Sensory Deficits, Normal Mood/Affect Skin: Normal Color, Warm/Dry Lymphatic: No Adenopathy Assessment/Plan Assessment/Plan Assessment/Plan Hypoglycemia - improved since admission, managed by medicine Status post exploratory laparotomy with ileocolonic anastomosis with side to side anastomosis - midline abd incision w/o infection, minimal serous drainage Urinary retention Patient to continue with wound care which would irrigate wound and pack wet to dry daily and as needed. No surgical intervention needed at this time. Continue to monitor for s/s infection, bowel issues, VS, labs Wound care orders placed. Will sign off please call if needed Supervisory-Addendum Brief Verification & Attestation Participated in pt care: history, MDM, physical Personally performed: exam, history, MDM, supervision of care Care discussed with: Medical Student Procedures: n/a Results interpretation: Verified all documentation Verification and Attestation of Medical Student E/M Service A medical student performed and documented this service in my presence. I reviewed and verified all information documented by the medical student and made modifications to such information, when appropriate. I personally performed the physical exam and medical decision making. Norris Henderson, Nov 17, 2020,14:22 JACINTA SAENZ MED STUDENT Nov 17, 2020 12:32 NORRIS HENDERSON DO Nov 17, 2020 14:22
[2020-11-17] MEDS ORDERED: inSUlin ASPART (NovoLOG) 1 UNIT/0.01 ML (CHARGE PER UNIT) SC PRN (14:00)
--- NOTE | 2020-11-17 15:46 | NUR ---
PATIENT COMPLAINING OF PAIN. STATED IT HURTS AFTER HE EATS UNTIL HE EATS AGAIN. THEN IT STARTS ALL OVER AGAIN. HE STATED THIS HAS BEEN GOING ON AT HOME TOO SINCE HE WENT HOME FROM THE HOSPITAL LAST TIME, THE PATIENT ALSO STATED EARLIER THIS MORNING THAT HE FELT GREAT AND DENIED PAIN.
[2020-11-17] MEDS: ENOXAPARIN 40 MG/0.4 ML (LOVENOX) SYR SC SCH (18:01)
[2020-11-18] MEDS: HYDROcodone/APAP 5 MG/325 MG (LORTAB) TAB PO PRN ×3 (02:00→11:23)
[2020-11-18 04:09] VITALS: BP 103/51
[2020-11-18] MEDS: MULTIVIT W/MINERALS TAB (THERAGRAN M) PO SCH (06:11)
[2020-11-18] MEDS: inSUlin ASPART (NovoLOG) 1 UNIT/0.01 ML (CHARGE PER UNIT) SC SCH ×2 (06:12→11:23)
[2020-11-18 06:29] LABS: BASOPHILS % (AUTO) 1 % (0-10); EOSINOPHILS # (AUTO) 0.2 10^3/uL (0.0-0.3); EOSINOPHILS % (AUTO) 4 % (0-10); HEMATOCRIT 32 % (40-54); HEMOGLOBIN 9.8 g/dL (13.3-17.7); LYMPHOCYTES # (AUTO) 1.3 10^3/uL (1.0-4.0); LYMPHOCYTES % (AUTO) 27 % (12-44); MEAN CORPUSCULAR HEMOGLOBIN 31 pg (25-34); MEAN CORPUSCULAR HGB CONC 31 g/dL (32-36); MEAN CORPUSCULAR VOLUME 99 fL (80-99); MEAN PLATELET VOLUME 10.9 fL (9.0-12.2); MONOCYTES # (AUTO) 0.6 10^3/uL (0.0-1.0); MONOCYTES % (AUTO) 11 % (0-12); NEUTROPHILS # (AUTO) 2.9 10^3/uL (1.8-7.8); NEUTROPHILS % (AUTO) 58 % (42-75); PLATELET COUNT 163 10^3/uL (130-400)
[2020-11-18 06:46] LABS: ALBUMIN 2.7 GM/DL (3.2-4.5); POTASSIUM 4.3 MMOL/L (3.6-5.0)
[2020-11-18 06:48] LABS: CALCIUM 7.8 MG/DL (8.5-10.1)
[2020-11-18 06:51] LABS: BILIRUBIN,TOTAL 0.6 MG/DL (0.1-1.0)
[2020-11-18 06:52] LABS: CREATININE SERUM 1.46 MG/DL (0.60-1.30)
[2020-11-18 08:00] VITALS: BP 122/58
[2020-11-18] MEDS: SERTRALINE 50 MG (ZOLOFT) TABLET PO SCH (08:29)
[2020-11-18] MEDS: ASPIRIN E.C. 81 MG (ECOTRIN) TAB PO SCH (08:29)
[2020-11-18] MEDS: ASCORBIC ACID (VIT C) 500 MG TABLET PO SCH (08:29)
[2020-11-18] MEDS: FINASTERIDE (PROSCAR) 5 MG TAB PO SCH (08:29)
[2020-11-18] MEDS: CALCIUM CARBONATE 600 MG (CALCARB) TAB PO SCH (08:29)
[2020-11-18] MEDS: TAMSULOSIN 0.4 MG (FLOMAX) CAP PO SCH (08:29)
[2020-11-18] MEDS: GABAPENTIN 300 MG (NEURONTIN) CAP PO SCH ×2 (08:29→11:22)
[2020-11-18] MEDS: lisINopril 20 MG (PRINIVIL) TABLET PO SCH (08:29)
[2020-11-18] MEDS: ATENOLOL 25 MG (TENORMIN) TAB PO SCH (08:29)
[2020-11-18] MEDS: FLUoxetine HCL 20 MG (PROzac) CAP PO SCH (08:30)
[2020-11-18] MEDS ORDERED: ARTIFICAL TEARS 0.4 ML UNIT DOSE (REFRESH PLUS) OD PRN (11:00)
[2020-11-18 12:00] VITALS: BP 127/61
--- NOTE | 2020-11-18 12:17 | Discharge Summary ---
Diagnosis/Chief Complaint Date of Admission Nov 16, 2020 at 12:45 Date of Discharge 11/18/20 Admission Diagnosis Admission Diagnosis Severe Hypoglycemia Acute on Chronic Renal Failure Recent Partial Colon Resection PVD CARRIE COPD Urinary Retention Discharge Diagnosis See Above Discharge Summary-Simple/Stand Consultations Dr Henderson: General Surgery Discharge Physical Examination Allergies: Coded Allergies: No Known Drug Allergies (Verified , 10/15/09) Vitals & I&Os Vital Sign - Last 12Hours Date Time Temp Pulse Resp B/P (MAP) Pulse Ox O2 Delivery O2 Flow Rate FiO2 11/18/20 08:00 Room Air 11/18/20 08:00 35.0 73 16 122/58 (79) 95 11/16/20 16:54 21 Intake and Output 11/18/20 00:00 Intake Total 1370 ml Output Total 710 ml Balance 660 ml General Appearance: Alert, Oriented X3, Cooperative, No Acute Distress HEENT: Mucous Memb Moist/[place] Respiratory: Clear to Auscultation, Normal Air Movement Cardiovascular: Regular Rate, No Murmurs Abdominal: Normal Bowel Sounds, Soft, No Tenderness, Other (incision C/D/I) Extremities: No Edema, No Tenderness/Swelling Neuro: Strength at 5/5 X4 Ext, Sensation Intact, Cranial Nerves 3-12 NL Psych/Mental Status: Mental Status NL, Mood NL Hospital Course Was the Problem List Reviewed?: Yes See final discharge diagnosis. Discussion & Recommendations 85 yo M that had a recent admission and had partial bowel resection that went home and had a episode of severe hypoglycemia which was likely due to insulin and decreased appetite. Patient's glucose has been much better during admission and appetite has improved. Reyes catheter was placed due to urinary retention and he will be discharged with reyes and have outpatient f.u with Dr Sal. He will have close f.u with PCP Dr Patten. Will be discharged with HH and glucagon emergency kit. Discharge Condition at discharge Gaurded Instructions to patient/family Please see electronic discharge instructions given to patient. Discharge Medications Reviewed and agree with Discharge Medication list on patient's Discharge Instruction sheet Clinical Quality Measures DVT/VTE Risk/Contraindication: Risk Factor Score Per Nursin RFS Level Per Nursing on Admit: 4+=Very High Copy Copies To 1: SHIRA PATTEN MD, HOLLY R MD Nov 18, 2020 12:17
[2020-11-18] MEDS ORDERED: GLUC1KIT IJ (12:22)
[2020-11-18] MEDS ORDERED: HUM100VI SQ (12:22)
--- NOTE | 2020-11-18 12:30 | Discharge Summary ---
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 Patient was recently in the hospital and had partial colon resection. States that he went home with reyes catheter previously and then Dr Sal removed catheter on Wednesday. Patient was at home when he experienced severe sweating and confusion and was found to have severe hypoglycemia. He had taken his insulin at home prior to episode. During this admission his blood sugars have been better controlled. Insulin dosing was decreased and glypizide was d/gin. He will be sent home with glucagon emergency kit and it is recommended that he get CGM. He again had urinary retention and will be sent home with reyes catheter and f.u with Dr Sal. Patient will have HH. Labs and Pending Lab Test: Laboratory Tests 11/17/20 16:12: Glucometer 149H 11/17/20 20:27: Glucometer 238H 11/18/20 05:33: White Blood Count 5.0, Red Blood Count 3.21L, Hemoglobin 9.8L, Hematocrit 32L, Mean Corpuscular Volume 99, Mean Corpuscular Hemoglobin 31, Mean Corpuscular Hemoglobin Concent 31L, Red Cell Distribution Width 14.4, Platelet Count 163, Mean Platelet Volume 10.9, Immature Granulocyte % (Auto) 0, Neutrophils (%) (Auto) 58, Lymphocytes (%) (Auto) 27, Monocytes (%) (Auto) 11, Eosinophils (%) (Auto) 4, Basophils (%) (Auto) 1, Neutrophils # (Auto) 2.9, Lymphocytes # (Auto) 1.3, Monocytes # (Auto) 0.6, Eosinophils # (Auto) 0.2, Basophils # (Auto) 0.0, Immature Granulocyte # (Auto) 0.0, Sodium Level 138, Potassium Level 4.3, Chloride Level 107, Carbon Dioxide Level 24, Anion Gap 7, Blood Urea Nitrogen 27H, Creatinine 1.46H, Estimat Glomerular Filtration Rate 46, BUN/Creatinine Ratio 18, Glucose Level 137H, Calcium Level 7.8L, Corrected Calcium 8.8, Total Bilirubin 0.6, Aspartate Amino Transf (AST/SGOT) 16, Alanine Aminotransferase (ALT/SGPT) 26, Alkaline Phosphatase 81, Total Protein 5.0L, Albumin 2.7L 11/18/20 06:11: Glucometer 145H 11/18/20 10:48: Glucometer 218H Home Meds Active Lisinopril 20 Mg Tablet 20 Mg PO DAILY@0900 Flomax (Tamsulosin HCl) 0.4 Mg Cap 0.4 Mg PO BID Reported Sertraline HCl 50 Mg Tablet 50 Mg PO DAILY Neurontin (Gabapentin) 300 Mg Capsule 300 Mg PO TID Aspirin EC (Aspirin) 81 Mg Tablet.dr 81 Mg PO DAILY Hydrocodone-Acetamin 5-325 mg (Hydrocodone/Acetaminophen) 1 Each Tablet 1 Each PO Q4H PRN Humulin 70-30 Vial (Insulin NPH Hum/Reg Insulin Hm) 100 Unit/1 Ml Vial 10 Unit SQ HS Humulin 70-30 Vial (Insulin NPH Hum/Reg Insulin Hm) 100 Unit/1 Ml Vial 20 Units SQ DAILY Fluoxetine HCl 20 Mg Capsule 20 Mg PO DAILY Vitamin C (Ascorbic Acid) 500 Mg Capsule 500 Mg PO DAILY Calcium (Calcium Carbonate) 600 Mg Tablet 600 Mg PO DAILY Atenolol 25 Mg Tablet 25 Mg PO DAILY Finasteride 5 Mg Tablet 5 Mg PO DAILY Glipizide 10 Mg Tablet 10 Mg PO DAILY Centrum Silver Tablet (Multivit-Min/FA/Lycopene/Lut) 1 Each Tablet 1 Tab PO DAILY Consulations Dr Henderson, General Surgery Patient Allergies: Coded Allergies: No Known Drug Allergies (Verified , 10/15/09) Height (Feet): 5 Height (Inches): 9.00 Weight (Pounds): 226 Weight (Ounces): 9.6 New Medications: Glucagon,Human Recombinant (Glucagon Emergency Kit) 1 Mg/Kit Soln 1 MG IJ ONCE PRN for HYPOGLYCEMIA, #10 EA Changed Medications: Insulin NPH Hum/Reg Insulin Hm (Humulin 70-30 Vial) 100 Unit/1 Ml Vial 10 UNIT SQ BID for 30 Days, VIAL (Changed from: HS) Continued Medications: Ascorbic Acid (Vitamin C) 500 Mg Capsule 500 MG PO DAILY, CAP Aspirin (Aspirin EC) 81 Mg Tablet.dr 81 MG PO DAILY, TAB Atenolol (Atenolol) 25 Mg Tablet 25 MG PO DAILY, TAB Calcium Carbonate (Calcium) 600 Mg Tablet 600 MG PO DAILY, TAB Finasteride (Finasteride) 5 Mg Tablet 5 MG PO DAILY, TAB Fluoxetine HCl (Fluoxetine HCl) 20 Mg Capsule 20 MG PO DAILY, TAB Gabapentin (Neurontin) 300 Mg Capsule 300 MG PO TID, CAP Hydrocodone/Acetaminophen (Hydrocodone-Acetamin 5-325 mg) 1 Each Tablet 1 EACH PO Q4H PRN for PAIN-MODERATE (5-7), TAB Lisinopril (Lisinopril) 20 Mg Tablet 20 MG PO DAILY@0900, #30 TAB Multivit-Min/FA/Lycopene/Lut (Centrum Silver Tablet) 1 Each Tablet 1 TAB PO DAILY, TAB Sertraline HCl (Sertraline HCl) 50 Mg Tablet 50 MG PO DAILY, TAB Tamsulosin HCl (Flomax) 0.4 Mg Cap 0.4 MG PO BID, #60 CAP Discontinued Medications: Glipizide (Glipizide) 10 Mg Tablet 10 MG PO DAILY, TAB Insulin NPH Hum/Reg Insulin Hm (Humulin 70-30 Vial) 100 Unit/1 Ml Vial 20 UNITS SQ DAILY Home Health Need/Face to Face Date of Face to Face: Nov 18, 2020 Clinical Findings: Generalized weakness and fatigue, Instability, Wound infection I have seen Pt [id number]: Yes Discharged To: Home Diagnosis/Conditions: See Above Patient is Homebound due to: Kevin fall risk due to instabilty Homebound Status Due to the above stated illness, injury or surgical procedure (medical condition or diagnosis) and associated clinical findings, the patient is homebound because of his/her inability to leave home except with aid of a supportive device and/or person AND leaving the home requires a considerable and taxing effort or is medically contraindicated. Pt req the following assistanc: Aid of another person, Wheelchair Home Health Nursing Orders Home Health Services Order: Nursing Services, Physical Therapy-Evaluate & Treat, Wound Care-Eval/Treat Please teach family how to care for reyes catheter and how to administer Glucagon Emergency kit Home Health Infusion Therapy Line Start Date: Nov 16, 2020 Therapy Orders Therapy Orders: PT to assess for OT Therapy Specific Orders: Eval assistive deivces, Increase strength/endurance Certify Stmt I certify that this patient is under my care and that I, a nurse practitioner or a physician; a export sales assistant working with me, had a face to face encounter that - meets the physician face to face encounter requirements with this patient as dated. Discharge Physical Exam General: Alert, Oriented X3, Cooperative, No Acute Distress HEENT: Mucous Memb Moist/Hollis Lungs: Clear to Auscultation, Normal Air Movement Heart: Regular Rate Abdomen: Normal Bowel Sounds, Soft, No Tenderness, No Masses Extremities: No Edema, No Tenderness/Swelling Neuro: Normal Speech Psych/Mental Status: Mental Status NL, Mood NL JOSE J GROVE MD Nov 18, 2020 12:28
--- NOTE | 2020-11-18 13:15 | NUR ---
Diabetic Education order rec'd. Rapport established with patient. Patient expresses, "I just want you to tell me what to eat, and I'll do it." voices he lives with family, so they can help. Education packet shared with pt. He expressed he would like to nap right now, but would like to take the information home to go over with his family. Patient appears to rely on family and care givers to help with his diabetic needs and issues. "Supporting someone with Diabetes" booklet placed with education materials home use.
--- NOTE | 2020-11-18 14:00 | NUR ---
CM FINALIZED DISCHARGE PLAN: Patient is discharging to home today with resume home health care orders. Spoke with [facility] to notify of d/c with resumption. They did ask if the patient was inpatient and I let them know that he has been observation this hospitalization. Visited with his Faby et she voiced concern about his insulin regimen and his low blood sugars that brought him to the hospital this visit. F/U with Dr. Tran and she reported that she is adjusting his insulin to smaller doses and sending him home with glucagon tablets. I updated Faby with that info. She reported that her daughter will be out to pick him up around 4p.m. after she gets off work. I also saw a SS consult in about family requesting a continuous glucose monitoring system for the patient. I visited with Faby about that and she reported that she does not want that for Rafael because he picks at things. She reported that the monitoring system that they have in place is what she would like to continue with. I did let her know that they could make an outpatient f/u appointment with their primary care physician if they would like to discuss further. She voiced appreciation for the information. Denies any further needs or concerns. Updated his primary care nurse Shannon with the above information.
[2020-11-18] MEDS: LOPERAMIDE 2 MG (IMODIUM) TABLET PO PRN (14:30)
[2020-11-18] MEDS ORDERED: LOPE2CAP PO (14:47)
--- NOTE | 2020-11-18 14:53 | NUR ---
CALLED PRESCRIPTION FOR IMODIUM INTO [facility]. THEY DID NOT ANSWER SO I CALLED BACK AND LEFT A MESSAGE.
--- NOTE | 2020-11-18 14:53 | NUR ---
"RD ASSESSMENT PMHx: COPD; CAD; hypercholesterolemia; HTN; renal failure; chronic constipation; amputation (R BKA); PT INTERACTION: Pt was awake and pleasant during consult for diet education. Pt states current appetite is good. Note avg PO intake 100% x1d, per chart review. Pt states following a regular diet at home, and has no issues with chewing/swallowing food. Pt states no issues with nausea, vomiting, constipation, or diarrhea. Note last BM was 11/17, and pt not currently on bowel regimen per chart review. Pt states no recent wt changes. Note recent 15# wt gain x7mon, per chart review. Pt states current DM management is good, but he has questions on what to eat. Note unable to determine recent HbA1c, per chart review. ABNORMAL NUTRITION-RELATED LAB VALUES LOW: Ca 7.8; Pro 5.0; alb 2.7; HIGH: BUN 27; cr 1.47; glu 137; Est. kcal needs: 2861-2072 kcal | 15-20 kcal/kg Est. Pro needs: 80-100 g Pro | 0.8-1.0 g Pro/kg PES STATEMENT: Food- and nutrition-related knowledge deficit (NB-1.1) related to lack of prior nutrition-related recommendations as evidenced by pt interview. INTERVENTION: Continue with current diet order of CHO 60g/m 3snack diet. Discussed and provided diet education on DM management. Provided handout on CHO counting and discussed serving sizes of common foods in the pt's diet. Provided contact information should the pt have questions upon discharge. Will continue to follow and reassess as pt needs, intake, and status change. Bebe HICKMAN, MS RD [phone] cell"
--- NOTE | 2020-11-18 16:00 | NUR ---
Received a phone call on my cell phone from patient's brother. He voiced several concerns ultimately about the patient returning to home. We visited about the offer of [facility] home placement that I had discussed with Faby on the patient's last stay. He reported that his brother would not do that and he would likely have to hire paid care givers to come to their home. Offered to go over a list with him and he reports that his is looking into it. He made statements about wanting a portal to review the patient's records. I am not familiar with anything like this for our facility but was familiar with what he was referring to and so we visited about this. I encouraged him to visit with Faby about her and her husbands wishes and needs and he reports that he will/has. Denies any other questions at this time.
[2020-11-18 16:24] VITALS: BP 127/61
--- NOTE | 2020-11-18 16:24 | NUR ---
DISCHARGE PAPERWORK AND INSTRUCTIONS COVERED IN DETAIL WITH SON AND DAUGHTER. DIABETIC MEAL PLANNING FOLDER DISCUSSED, CHANGES IN INSULIN DOSING AND TIMES, GLUCAGON EMERGENCY TABLETS AND IMODIUM TALKED ABOUT AT LENGTH. FAMILY WAS ALSO MADE AWARE OF DR GROVE'S ORDER THAT THE PATIENT CAN GO OUTSIDE. DAILY DRESSING CHANGE ORDERS TALKED ABOUT, INSTRUCTIONS AND SOME SUPPLIES PROVIDED. DRESSING CHANGE HAS ALREADY BEEN DONE FOR TODAY. FOLLOW-UP APPOINTMENT WITH DR GREENBERG AND DR MARINO DISCUSSED. THE FAMILY DENIES ANY QUESTIONS ABOUT CATHETER CARE, HOWEVER DISCHARGE INSTRUCTIONS (SHOWN TO FAMILY) INCLUDED INFORMATION ON CATHETER CARE SHOULD THEY HAVE ANY QUESTIONS. ALL QUESTIONS ASKED BY FAMILY WERE ANSWERED. WHEN ASKED IF THEY HAD ANY FURTHER CONCERNS OR QUESTIONS, THEY SAID NO, THEY THOUGHT EVERYTHING HAD BEEN COVERED
== END 2020-11-18 12:19 | disposition home health service (06) ==
LOC: EDUNIT# 09:53 → ER 10:04 → UNDOADMOB 12:45 → 4TH 12:45 → UNDODISOB 11-18 16:24
PROVIDERS: ADMIT Internal Medicine; ATTEND Family Medicine
DX: E16.2 Hypoglycemia, unspecified (principal); I12.9 Hypertensive chronic kidney disease with stage 1 through stage 4 chronic kidney disease, or unspecified chronic kidney disease; N18.9 Chronic kidney disease, unspecified; N17.9 Acute kidney failure, unspecified; E11.22 Type 2 diabetes mellitus with diabetic chronic kidney disease; E11.40 Type 2 diabetes mellitus with diabetic neuropathy, unspecified; J44.9 Chronic obstructive pulmonary disease, unspecified; G47.33 Obstructive sleep apnea (adult) (pediatric); I73.9 Peripheral vascular disease, unspecified; R33.9 Retention of urine, unspecified; I25.10 Atherosclerotic heart disease of native coronary artery without angina pectoris; E78.00 Pure hypercholesterolemia, unspecified; I10 Essential (primary) hypertension; G43.909 Migraine, unspecified, not intractable, without status migrainosus; F32.9 Major depressive disorder, single episode, unspecified; F17.210 Nicotine dependence, cigarettes, uncomplicated; Z79.899 Other long term (current) drug therapy; Z79.4 Long term (current) use of insulin; Z90.49 Acquired absence of other specified parts of digestive tract; Z80.43 Family history of malignant neoplasm of testis; Z80.6 Family history of leukemia
CPT/HCPCS: 51702; 71045; 80053 ×3; 81000; 82962 ×3; 83735; 85025 ×3; 86141; 96360; 99284; G0378; 36415

== ENCOUNTER 2021-01-30 16:05 | Inpatient (IN) | payer MEDICARE ==
[2021-01-30] VITALS (11 sets, daily range): BP systolic 99–123; BP diastolic 54–68
[~2021-01-30] VITALS: Ht 175 cm; Wt 100.2 kg
[~2021-01-30 16:05] MED LIST changes: +GLUC1KIT IJ; -LISI-552 PO; +LISI20TA26 PO; +LOPE2CAP PO; +SERT-413 PO
[2021-01-30 16:37] LABS: BILIRUBIN,URINE NEGATIVE (NEGATIVE); CLARITY,URINE CLEAR; COLOR,URINE YELLOW; GLUCOSE, URINE (UA) NEGATIVE (NEGATIVE); KETONES,URINE NEGATIVE (NEGATIVE); LEUKOCYTE ESTERASE ,URINE NEGATIVE (NEGATIVE); NITRITE,URINE NEGATIVE (NEGATIVE); PH,URINE 5.5 (5-9); PROTEIN,URINE 1+ (NEGATIVE)
[2021-01-30 16:47] LABS: BASOPHILS % (AUTO) 1 % (0-10); EOSINOPHILS # (AUTO) 0.1 10^3/uL (0.0-0.3); EOSINOPHILS % (AUTO) 1 % (0-10); HEMATOCRIT 34 % (40-54); HEMOGLOBIN 11.3 g/dL (13.3-17.7); LYMPHOCYTES # (AUTO) 1.1 10^3/uL (1.0-4.0); LYMPHOCYTES % (AUTO) 14 % (12-44); MEAN CORPUSCULAR HEMOGLOBIN 31 pg (25-34); MEAN CORPUSCULAR HGB CONC 33 g/dL (32-36); MEAN CORPUSCULAR VOLUME 92 fL (80-99); MEAN PLATELET VOLUME 10.9 fL (9.0-12.2); MONOCYTES # (AUTO) 0.7 10^3/uL (0.0-1.0); MONOCYTES % (AUTO) 8 % (0-12); NEUTROPHILS # (AUTO) 6.4 10^3/uL (1.8-7.8); NEUTROPHILS % (AUTO) 77 % (42-75); PLATELET COUNT 173 10^3/uL (130-400); WHITE BLOOD COUNT 8.3 10^3/uL (4.3-11.0)
[2021-01-30 16:57] LABS: ALBUMIN 3.6 GM/DL (3.2-4.5)
[2021-01-30 16:58] LABS: POTASSIUM 3.8 MMOL/L (3.6-5.0)
[2021-01-30 16:59] LABS: CALCIUM 8.7 MG/DL (8.5-10.1)
[2021-01-30 17:00] LABS: TOTAL PROTEIN 6.5 GM/DL (6.4-8.2)
[2021-01-30 17:02] LABS: BILIRUBIN,TOTAL 0.7 MG/DL (0.1-1.0)
[2021-01-30 17:04] LABS: CREATININE SERUM 1.5 MG/DL (0.60-1.30)
[2021-01-30 17:07] LABS: BACTERIA,URINE NEGATIVE /HPF; SQUAMOUS EPITHELIAL CELL,UR RARE /HPF
[2021-01-30 17:12] LABS: INR 1.2 (0.8-1.4); PROTHROMBIN TIME PATIENT 15.4 SEC (12.2-14.7)
[2021-01-30 17:19] LABS: MAGNESIUM 1.7 MG/DL (1.6-2.4)
--- NOTE | 2021-01-30 18:01 | Diagnostic Imaging Report ---
INDICATION: Chest pain. COMPARISON: 11/16/2020. FINDINGS: Single view of the chest demonstrates slightly worsening central vascular congestion. Stable pleural thickening with trace effusion is seen bilaterally. There is no pneumothorax. Sternal wires midline. IMPRESSION: 1. Cardiac enlargement with slightly worsening central vascular congestion. 2. Stable pleural thickening and likely small bilateral pleural effusions. Dictated by: Dictated on workstation # [id number]
[2021-01-30] MEDS ORDERED: ASPIRIN 81 MG CHEW (CHILDREN'S ASA) PO ONE (18:30)
[2021-01-30] MEDS ORDERED: cefTRIAXone FOR IV USE 1,000 MG in WATER (STERILE) FOR INJECTION 10 ML IV ONE (18:30)
--- NOTE | 2021-01-30 18:55 | Diagnostic Imaging Report ---
PROCEDURE: CT abdomen and pelvis without contrast. TECHNIQUE: Multiple contiguous axial images were obtained through the abdomen and pelvis without the use of intravenous contrast. Auto Exposure Controls were utilized during the CT exam to meet ALARA standards for radiation dose reduction. INDICATION: Mid and lower abdominal pain with fever COMPARISON: 11/02/2020 FINDINGS: There are moderate bilateral pleural effusions with associated atelectasis. There is mild cardiomegaly. No pericardial effusion is seen. There is calcific atherosclerosis and pacemaker leads are noted. Marked atherosclerosis is seen throughout the exam. The liver demonstrates no focal lesions. The spleen appears normal. The pancreas is unremarkable. The adrenal glands appear normal. There are calcifications in the kidneys with no obstruction or hydronephrosis. There is a hypodense lesion in the left kidney, likely a cyst, on this noncontrast exam. There are postsurgical changes in the abdomen with anastomotic sutures noted, appears to be a right partial colectomy. There is moderate stool in the colon. The appendix is not seen. There is wall thickening of the descending colon with surrounding pericolonic edema. This appears to involve the splenic flexure as well. The sigmoid colon is markedly redundant. No free air or free fluid is seen. There are degenerative changes in the spine. IMPRESSION: 1. Inflammatory changes of the splenic flexure and descending colon, consistent with colitis. Marked atherosclerosis is suspicious for a vascular etiology, however infectious or inflammatory causes are in the differential. 2. Moderate bilateral pleural effusions. Dictated by: Dictated on workstation # [id number]
[2021-01-30] MEDS ORDERED: ENOXAPARIN 100 MG/1 ML (LOVENOX) SYR SC ONE (19:30)
--- NOTE | 2021-01-30 19:45 | ED General ---
General Chief Complaint: Abdominal/GI Problems Stated Complaint: ABD PAIN / FEVER Nursing Triage Note: ARRIVED VIA WC TO ROOM 06 WITH COMPLAINTS OF FEVER AND LOWER ABD PAIN STARTING YESTERDAY. RECIEVED THE FIRST COVID VACCINATION YESTERDAY BUT STATES HIS SX STARTED BEFORE. COVID POSITIVE IN OCT. Nursing Sepsis Screen: No Definite Risk Source of Information: Patient Exam Limitations: No Limitations History of Present Illness Date Seen by Provider: Jan 30, 2021 Time Seen by Provider: 16:14 Initial Comments This 85-year-old gentleman presents to the emergency room with complaints of abdominal pain and fever since yesterday. He is afebrile at present. He also mention in passing that he has had a little bit of chest discomfort and that he has trouble taking a deep breath. He has a significant health history that includes cardiovascular disease, diabetes, ischemic bowel with resection, etc. He had COVID-19 in October. On exam he has hot erythema surrounding the ventral scar on his abdomen. Allergies and Home Medications Allergies Coded Allergies: No Known Drug Allergies (Verified , 10/15/09) Home Medications Ascorbic Acid 500 Mg Capsule, 500 MG PO DAILY, (Reported) Aspirin 81 Mg Tablet.dr, 81 MG PO DAILY, (Reported) Atenolol 25 Mg Tablet, 25 MG PO DAILY, (Reported) Calcium Carbonate 600 Mg Tablet, 600 MG PO DAILY, (Reported) Finasteride 5 Mg Tablet, 5 MG PO DAILY, (Reported) Fluoxetine HCl 20 Mg Capsule, 20 MG PO DAILY, (Reported) Gabapentin 300 Mg Capsule, 300 MG PO TID, (Reported) Glucagon,Human Recombinant 1 Mg/Kit Soln, 1 MG IJ ONCE PRN for HYPOGLYCEMIA Prescribed by: JOSE J GROVE on 11/18/20 1222 Hydrocodone/Acetaminophen 1 Each Tablet, 1 EACH PO Q4H PRN for PAIN-MODERATE (5- 7), (Reported) Insulin NPH Hum/Reg Insulin Hm 100 Unit/1 Ml Vial, 10 UNIT SQ BID Prescribed by: JOSE J GROVE on 11/18/20 1222 Lisinopril 20 Mg Tablet, 20 MG PO DAILY@0900 Prescribed by: ANA THOMAS on 11/12/20 1359 Loperamide HCl 2 Mg Capsule, 2 MG PO Q4H PRN for DIARRHEA Prescribed by: RAMESH WILCOX on 11/18/20 1447 Multivit-Min/FA/Lycopene/Lut 1 Each Tablet, 1 TAB PO DAILY, (Reported) Sertraline HCl 50 Mg Tablet, 50 MG PO DAILY, (Reported) Tamsulosin HCl 0.4 Mg Cap, 0.4 MG PO BID Prescribed by: ANA THOMAS on 11/12/20 5369 Patient Home Medication List Home Medication List Reviewed: Yes Review of Systems Review of Systems Constitutional: see HPI EENTM: no symptoms reported Respiratory: see HPI Cardiovascular: see HPI Gastrointestinal: no symptoms reported Genitourinary: no symptoms reported Musculoskeletal: no symptoms reported Skin: see HPI Psychiatric/Neurological: No Symptoms Reported Hematologic/Lymphatic: No Symptoms Reported Immunological/Allergic: no symptoms reported Past Dgfeeaf-Whzxoi-Fopczv Hx Past Med/Social Hx: Reviewed Nursing Past Med/Soc Hx Patient Social History Alcohol Use: Denies Use Number of Drinks Today: GG Alcohol Beverage of Choice: Whiskey Type Used: Cigars 2nd Hand Smoke Exposure: Yes Recent Infectious Disease Expo: No Recent Hopitalizations: Yes Immunizations Up To Date Tetanus Booster (TDap): Unknown Date of Pneumonia Vaccine: Sep 29, 2012 Seasonal Allergies Seasonal Allergies: No Past Medical History Surgeries: Yes (CABG; RIGHT BKA; RIGHT LEG ARTERY BYPASS; PACEMAKER X 2) Abdominal, Amputation, Bowel Surgery, Cardiac, CABG, Eye Surgery, Joint Replacement, Orthopedic, Pacemaker, Vascular Surgery Respiratory: Yes (COVID) Pneumonia Currently Using CPAP: No Currently Using BIPAP: No Cardiac: Yes (CABG; PACEMAKER) Coronary Artery Disease, High Cholesterol, Hypertension, Peripheral Vascular Neurological: Yes Headaches /Migraines, Neuropathy Reproductive Disorders: No Genitourinary: Yes Prostate Problems, Renal Failure Gastrointestinal: Yes (iscemic bowel) Chronic Constipation 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, Insulin dep HEENT: Yes Cataract Loss of Vision: Denies Hearing Impairment: Hard of Hearing Cancer: No Psychosocial: Yes Depression Integumentary: No Blood Disorders: No Adverse Reaction/Blood Tranf: No Family Medical History Diabetes mellitus GRANDMOTHER FH: leukemia G8 BROTHER Testicular cancer 19 FATHER Cancer, Diabetes Physical Exam Vital Signs Vital Signs - First Documented 01/30/21 16:15 Temp 37.9 Pulse 69 Resp 16 B/P (MAP) 112/59 (76) Pulse Ox 91 O2 Delivery Room Air Capillary Refill : Less Than 3 Seconds Height, Weight, BMI Height: 5'9.00" Weight: 226lbs. 9.6oz. [id number]; 33.00 BMI Method:Stated General Appearance: No Apparent Distress, WD/WN HEENT: PERRL/EOMI, Normal ENT Inspection Neck: Normal Inspection Respiratory: Lungs Clear, No Accessory Muscle Use, No Respiratory Distress, Decreased Breath Sounds Cardiovascular: Regular Rate, Rhythm, No Murmur Gastrointestinal: Normal Bowel Sounds, Soft, Tenderness (Lower abdomen), Other (Warm erythema surrounding the ventral surgical scar) Extremity: Normal Inspection, No Pedal Edema, Other (Right BKA) Neurologic/Psychiatric: Alert, Oriented x3, No Motor/Sensory Deficits, Normal Mood/Affect, tourist guide II-XII Norm as Tested Skin: Normal Color, Warm/Dry, Erythema (As above) Focused Exam Lactate Level 01/30/21 16:35: Lactic Acid Level 1.45 Lactic Acid Level Laboratory Tests Test 01/30/21 16:35 Lactic Acid Level 1.45 MMOL/L (0.50-2.00) Procedures/Interventions Date of ETT Placement: Nov 03, 2020 Progress/Results/Core Measures Suspected Sepsis Recent Fever Within 48 Hours: Yes Infection Criteria Present: Suspected New Infection New/Unexplained Altered Menta: No Sepsis Screen: No Definite Risk SIRS Temperature: Pulse: 69 Respiratory Rate: 16 Laboratory Tests 01/30/21 16:35: White Blood Count 8.3 Blood Pressure 112 /59 Mean: 76 01/30/21 16:35: Lactic Acid Level 1.45 Laboratory Tests 01/30/21 16:35: Creatinine 1.50H, INR Comment 1.2, Platelet Count 173, Total Bilirubin 0.7 Results/Orders Lab Results Laboratory Tests Test 01/30/21 16:30 01/30/21 16:35 Range/Units Urine Color YELLOW Urine Clarity CLEAR Urine pH 5.5 5-9 Urine Specific [place] 1.025 H 1.016-1.022 Urine Protein 1+ H NEGATIVE Urine Glucose (UA) NEGATIVE NEGATIVE Urine Ketones NEGATIVE NEGATIVE Urine Nitrite NEGATIVE NEGATIVE Urine Bilirubin NEGATIVE NEGATIVE Urine Urobilinogen 0.2 < = 1.0 MG/DL Urine Leukocyte Esterase NEGATIVE NEGATIVE Urine RBC (Auto) NEGATIVE NEGATIVE Urine RBC NONE /HPF Urine WBC NONE /HPF Urine Squamous Epithelial Cells RARE /HPF Urine Crystals NONE /LPF Urine Bacteria NEGATIVE /HPF Urine Casts NONE /LPF Urine Mucus NEGATIVE /LPF Urine Culture Indicated NO White Blood Count 8.3 4.3-11.0 10^3/uL Red Blood Count 3.69 L 4.30-5.52 10^6/uL Hemoglobin 11.3 L 13.3-17.7 g/dL Hematocrit 34 L 40-54 % Mean Corpuscular Volume 92 80-99 fL Mean Corpuscular Hemoglobin 31 25-34 pg Mean Corpuscular Hemoglobin Concent 33 32-36 g/dL Red Cell Distribution Width 13.4 10.0-14.5 % Platelet Count 173 130-400 10^3/uL Mean Platelet Volume 10.9 9.0-12.2 fL Immature Granulocyte % (Auto) 0 % Neutrophils (%) (Auto) 77 H 42-75 % Lymphocytes (%) (Auto) 14 12-44 % Monocytes (%) (Auto) 8 0-12 % Eosinophils (%) (Auto) 1 0-10 % Basophils (%) (Auto) 1 0-10 % Neutrophils # (Auto) 6.4 1.8-7.8 10^3/uL Lymphocytes # (Auto) 1.1 1.0-4.0 10^3/uL Monocytes # (Auto) 0.7 0.0-1.0 10^3/uL Eosinophils # (Auto) 0.1 0.0-0.3 10^3/uL Basophils # (Auto) 0.0 0.0-0.1 10^3/uL Immature Granulocyte # (Auto) 0.0 0.0-0.1 10^3/uL Prothrombin Time 15.4 H 12.2-14.7 SEC INR Comment 1.2 0.8-1.4 Activated Partial Thromboplast Time 36 H 24-35 SEC Sodium Level 138 135-145 MMOL/L Potassium Level 3.8 3.6-5.0 MMOL/L Chloride Level 103 98-107 MMOL/L Carbon Dioxide Level 25 21-32 MMOL/L Anion Gap 10 5-14 MMOL/L Blood Urea Nitrogen 27 H 7-18 MG/DL Creatinine 1.50 H 0.60-1.30 MG/DL Estimat Glomerular Filtration Rate 44 BUN/Creatinine Ratio 18 Glucose Level 196 H 70-105 MG/DL Lactic Acid Level 1.45 0.50-2.00 MMOL/L Calcium Level 8.7 8.5-10.1 MG/DL Corrected Calcium 9.0 8.5-10.1 MG/DL Magnesium Level 1.7 1.6-2.4 MG/DL Total Bilirubin 0.7 0.1-1.0 MG/DL Aspartate Amino Transf (AST/SGOT) 19 5-34 U/L Alanine Aminotransferase (ALT/SGPT) 16 0-55 U/L Alkaline Phosphatase 93 40-136 U/L Myoglobin 89.9 10.0-92.0 NG/ML Troponin I 0.054 H <0.028 NG/ML C-Reactive Protein High Sensitivity 7.01 H 0.00-0.50 MG/DL B-Type Natriuretic Peptide 442.2 H <100.0 PG/ML Total Protein 6.5 6.4-8.2 GM/DL Albumin 3.6 3.2-4.5 GM/DL Lipase 7 L 8-78 U/L My Orders Orders - DARLEEN FIELDS MD Cbc With Automated Diff (01/30/21 16:14) Comprehensive Metabolic Panel (01/30/21 16:14) Hs C Reactive Protein (01/30/21 16:14) Lipase (01/30/21 16:14) Ua Culture If Indicated (01/30/21 16:14) Ed Iv/Invasive Line Start (01/30/21 16:14) Magnesium (01/30/21 16:52) Chest 1 View, Ap/Pa Only (01/30/21 16:52) Ekg Tracing (01/30/21 16:52) Myoglobin Serum (01/30/21 16:52) Protime With Inr (01/30/21 16:52) Partial Thromboplastin Time (01/30/21 16:52) O2 (01/30/21 16:52) Monitor-Rhythm Ecg Trace Only (01/30/21 16:52) Lipid Panel (01/31/21 06:00) Troponin I (01/30/21 16:52) Bladder Scan (01/30/21 18:03) BNP (01/30/21 18:12) Ct Abdomen/Pelvis Wo (01/30/21 18:13) Aspirin Chewable Tablet (Baby Aspirin Ch (01/30/21 18:30) Ceftriaxone For Iv Use (Rocephin For I (01/30/21 18:30) Blood Culture (01/30/21 18:38) Vital Signs Adult Sepsis Patie Q15M (01/30/21 18:38) Remove Rings In Anticipation O (01/30/21 18:38) Lactic Acid Analyzer (01/30/21 18:38) Enoxaparin Injection (Lovenox Injection) (01/30/21 19:30) Medications Given in ED Current Medications Medications Dose Ordered Sig/Abbie Route Start Time Stop Time Status Last Admin Dose Admin Aspirin 324 mg ONCE ONCE PO 01/30/21 18:30 01/30/21 18:31 DC 01/30/21 18:42 324 MG Ceftriaxone Sodium 1000 mg/ Sterile Water 10 ml @ 200 mls/hr ONCE ONCE IV 01/30/21 18:30 01/30/21 18:32 DC 01/30/21 19:57 200 MLS/HR Enoxaparin Sodium 100 mg ONCE ONCE SC 01/30/21 19:30 01/30/21 19:31 DC 01/30/21 19:57 100 MG Vital Signs/I&O 01/30/21 16:15 Temp 37.9 Pulse 69 Resp 16 B/P (MAP) 112/59 (76) Pulse Ox 91 O2 Delivery Room Air Capillary Refill : Less Than 3 Seconds Blood Pressure Mean: 76 Progress Note : Progress Note Patient was found to have abdominal wall cellulitis on exam. CT of the abdomen and pelvis was obtained to rule out any intra-abdominal pathology. Colitis was found on the CT exam. Troponin and EKG were obtained to evaluate the chest pain. There was a mild elevation in troponin. He was treated with aspirin and Lovenox. The colitis was discussed with Dr. Lemons who also reviewed the films. Dr. Henderson is being consulted. Hemoccult stools will be collected. Antibiotics will be continued with Zosyn. He was initially treated with Rocephin when the cellulitis was discovered.I discussed CODE STATUS with the patient and his daughter. I discussed risks of cardiopulmonary resuscitation efforts. Patient elects full CODE STATUS. ECG Initial ECG Impression Date: Jan 30, 2021 Initial ECG Impression Time: 16:44 Initial ECG Rate: 70 Comment Atrial-ventricular dual paced rhythm. No acute changes from prior. Departure Communication (Admissions) Time/Spoke to Admitting Phy: 19:30 Dr. Tanner Mahoney at 1905 Dr. Lemons at 1910 Impression Primary Impression: Elevated troponin Additional Impressions: Colitis Abdominal wall cellulitis Pleural effusion Disposition: ADMITTED INPATIENT Condition: Improved Admissions Decision to Admit Reason: Admit from ER (General) Decision to Admit/Date: Jan 30, 2021 Time/Decision to Admit Time: 19:00 Departure-Patient Inst. Referrals: SHIRA PATTEN MD (PCP/Family) Primary Care Physician DARLEEN FIELDS MD Jan 30, 2021 19:44
--- NOTE | 2021-01-30 19:50 | History & Physical ---
HPI History of Present Illness: 85 yo came to ER due to abdominal pain, mostly lower and mid for 2-3 days, also has some pain in upper right chest for a few days as well. Denies fever. Admits nausea, denies vomiting. No diarrhea. He also has shortness of breath and states he does not usually use oxygen. [place] like when he laid down he could hardly br eathe and so he did use oxygen at night. He has had 3 intestinal surgeries, most recently in October. Source: patient Date seen by provider: Jan 30, 2021 Time Seen by Provider: 19:49 Attending Physician PCP Trever Rawls MD Consult Date of Admission Home Medications Home Medications Reviewed patient Home Medication Reconciliation performed by pharmacy medication reconciliations instructional support technician and/or nursing. Patients Allergies have been reviewed. 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 CABG Right BKA Family Medical History Significant Family History: Cancer, Diabetes Family History: Diabetes mellitus GRANDMOTHER FH: leukemia G8 BROTHER Testicular cancer 19 FATHER Review of Systems ([facility]) Constitutional: No fever EENTM: no symptoms reported Respiratory: see HPI Cardiovascular: see HPI Gastrointestinal: see HPI Genitourinary: no symptoms reported Musculoskeletal: other (phantom limb pain) Skin: other (redness on abdomen) Psychiatric/Neurological: No Symptoms Reported Reviewed Test Results Reviewed Test Results Lab Laboratory Tests Test 01/30/21 16:30 01/30/21 16:35 Range/Units Urine Color YELLOW Urine Clarity CLEAR Urine pH 5.5 5-9 Urine Specific [place] 1.025 H 1.016-1.022 Urine Protein 1+ H NEGATIVE Urine Glucose (UA) NEGATIVE NEGATIVE Urine Ketones NEGATIVE NEGATIVE Urine Nitrite NEGATIVE NEGATIVE Urine Bilirubin NEGATIVE NEGATIVE Urine Urobilinogen 0.2 < = 1.0 MG/DL Urine Leukocyte Esterase NEGATIVE NEGATIVE Urine RBC (Auto) NEGATIVE NEGATIVE Urine RBC NONE /HPF Urine WBC NONE /HPF Urine Squamous Epithelial Cells RARE /HPF Urine Crystals NONE /LPF Urine Bacteria NEGATIVE /HPF Urine Casts NONE /LPF Urine Mucus NEGATIVE /LPF Urine Culture Indicated NO White Blood Count 8.3 4.3-11.0 10^3/uL Red Blood Count 3.69 L 4.30-5.52 10^6/uL Hemoglobin 11.3 L 13.3-17.7 g/dL Hematocrit 34 L 40-54 % Mean Corpuscular Volume 92 80-99 fL Mean Corpuscular Hemoglobin 31 25-34 pg Mean Corpuscular Hemoglobin Concent 33 32-36 g/dL Red Cell Distribution Width 13.4 10.0-14.5 % Platelet Count 173 130-400 10^3/uL Mean Platelet Volume 10.9 9.0-12.2 fL Immature Granulocyte % (Auto) 0 % Neutrophils (%) (Auto) 77 H 42-75 % Lymphocytes (%) (Auto) 14 12-44 % Monocytes (%) (Auto) 8 0-12 % Eosinophils (%) (Auto) 1 0-10 % Basophils (%) (Auto) 1 0-10 % Neutrophils # (Auto) 6.4 1.8-7.8 10^3/uL Lymphocytes # (Auto) 1.1 1.0-4.0 10^3/uL Monocytes # (Auto) 0.7 0.0-1.0 10^3/uL Eosinophils # (Auto) 0.1 0.0-0.3 10^3/uL Basophils # (Auto) 0.0 0.0-0.1 10^3/uL Immature Granulocyte # (Auto) 0.0 0.0-0.1 10^3/uL Prothrombin Time 15.4 H 12.2-14.7 SEC INR Comment 1.2 0.8-1.4 Activated Partial Thromboplast Time 36 H 24-35 SEC Sodium Level 138 135-145 MMOL/L Potassium Level 3.8 3.6-5.0 MMOL/L Chloride Level 103 98-107 MMOL/L Carbon Dioxide Level 25 21-32 MMOL/L Anion Gap 10 5-14 MMOL/L Blood Urea Nitrogen 27 H 7-18 MG/DL Creatinine 1.50 H 0.60-1.30 MG/DL Estimat Glomerular Filtration Rate 44 BUN/Creatinine Ratio 18 Glucose Level 196 H 70-105 MG/DL Lactic Acid Level 1.45 0.50-2.00 MMOL/L Calcium Level 8.7 8.5-10.1 MG/DL Corrected Calcium 9.0 8.5-10.1 MG/DL Magnesium Level 1.7 1.6-2.4 MG/DL Total Bilirubin 0.7 0.1-1.0 MG/DL Aspartate Amino Transf (AST/SGOT) 19 5-34 U/L Alanine Aminotransferase (ALT/SGPT) 16 0-55 U/L Alkaline Phosphatase 93 40-136 U/L Myoglobin 89.9 10.0-92.0 NG/ML Troponin I 0.054 H <0.028 NG/ML C-Reactive Protein High Sensitivity 7.01 H 0.00-0.50 MG/DL B-Type Natriuretic Peptide 442.2 H <100.0 PG/ML Total Protein 6.5 6.4-8.2 GM/DL Albumin 3.6 3.2-4.5 GM/DL Lipase 7 L 8-78 U/L Radiology CT abdomen/pelvis 4: IMPRESSION: 1. Inflammatory changes of the splenic flexure and descending colon, consistent with colitis. Marked atherosclerosis is suspicious for a vascular etiology, however infectious or inflammatory causes are in the differential. 2. Moderate bilateral pleural effusions. CXR /4: IMPRESSION: 1. Cardiac enlargement with slightly worsening central vascular congestion. 2. Stable pleural thickening and likely small bilateral pleural effusions. Physical Exam-([facility]) Physical Exam Vital Signs VS - Last 72 Hours, by Label 01/30/21 01/30/21 16:15 20:45 Temp 37.9 37.9 Pulse 69 70 Resp 16 16 B/P (MAP) 112/59 (76) 97/65 (76) Pulse Ox 91 98 O2 Delivery Room Air Nasal Cannula O2 Flow Rate 2.00 Capillary Refill : Less Than 3 Seconds General Appearance: no apparent distress Respiratory: No respiratory distress; rales Cardiovascular: regular rate, rhythm, no murmur Gastrointestinal: normal bowel sounds, non tender, distended, other (central scar, mild erythema around umbilicus) Extremities: no pedal edema, other (right leg amputation) Neurologic/Psychiatric: normal mood/affect Skin: warm/dry Assessment/Plan Assessment/Plan Admission Status: Inpatient Order (span 2 midnights) Reason for Inpatient Admission: Colitis and elevated troponin with multiple underlying comorbidities (1) Colitis Status: Acute Assessment & Plan: Possibly infectious, Zosyn started, however concern also for ischemia given history. Lactic acid okay. Surgery consulted, appreciate recommendations. (2) Abdominal wall cellulitis Status: Acute Assessment & Plan: Zosyn started for colitis and cellulitis. No leukocytosis or lactic acidosis. (3) Elevated troponin Status: Acute Assessment & Plan: Cardiology consulted, appreciate recommendations. (4) COPD (chronic obstructive pulmonary disease) Status: Chronic (5) Diabetes mellitus Status: Chronic Qualifiers: (6) Anemia Status: Chronic Qualifiers: Qualified Codes: D63.8 - Anemia in other chronic diseases classified elsewhere (7) Coronary artery disease Status: Chronic Qualifiers: Qualified Codes: I25.10 - Atherosclerotic heart disease of [place] coronary artery without angina pectoris (8) Chronic respiratory failure with hypoxia Status: Chronic (9) Acute kidney injury Status: Acute Assessment & Plan: Creatinine has been intermittently around this level over the last year, so may be more baseline, however will monitor closely. (10) HTN (hypertension) Status: Chronic Qualifiers: Qualified Codes: I10 - Essential (primary) hypertension (11) BPH (benign prostatic hyperplasia) Status: Chronic (12) DVT prophylaxis Status: Acute Assessment & Plan: Enoxaparin SHANNON GUTIERREZ MD Jan 30, 2021 19:50
[2021-01-30] MEDS ORDERED: NS (IVPB) 100 ML ONE (22:57)
[2021-01-30] MEDS ORDERED: PIPERACILLIN/TAZO 4.5 GM VIAL (ZOSYN) IV ONE (22:57)
[2021-01-30] MEDS ORDERED: morphine INJ 4 MG/ML 1 ML (VIAL/SYRINGE) IV PRN (23:00)
[2021-01-30] MEDS ORDERED: PIPERACILLIN/TAZOBACTAM 4.5 GM in NS (IVPB) 100 ML IV ONE (23:00)
[2021-01-30] MEDS ORDERED: ONDANSETRON 4 MG/2 ML (SDV) Z0FRAN IV PRN (23:00)
[2021-01-30] MEDS ORDERED: CATHETER FLUSH 10 ML SYR IV PRN (23:00)
[2021-01-30] MEDS ORDERED: NITROGLYCERIN 0.4 MG SL TABS BTL 25'S SL PRN (23:00)
[2021-01-31] VITALS (10 sets, daily range): BP systolic 95–127; BP diastolic 51–68
[2021-01-31] MEDS: fentaNYL INJ 100 MCG/2 ML AMP IV PRN ×2 (02:06→04:58)
[2021-01-31] MEDS ORDERED: NS (IVPB) 100 ML ONE (04:43)
[2021-01-31] MEDS ORDERED: PIPERACILLIN/TAZO 4.5 GM VIAL (ZOSYN) IV ONE (04:43)
[2021-01-31] MEDS: inSUlin ASPART (NovoLOG) 1 UNIT/0.01 ML (CHARGE PER UNIT) SC SCH ×4 (05:05→21:08)
[2021-01-31 05:54] LABS: BASOPHILS % (AUTO) 0 % (0-10); EOSINOPHILS # (AUTO) 0.1 10^3/uL (0.0-0.3); EOSINOPHILS % (AUTO) 2 % (0-10); HEMATOCRIT 32 % (40-54); HEMOGLOBIN 10.3 g/dL (13.3-17.7); LYMPHOCYTES # (AUTO) 1.5 10^3/uL (1.0-4.0); LYMPHOCYTES % (AUTO) 22 % (12-44); MEAN CORPUSCULAR HEMOGLOBIN 30 pg (25-34); MEAN CORPUSCULAR HGB CONC 32 g/dL (32-36); MEAN CORPUSCULAR VOLUME 94 fL (80-99); MEAN PLATELET VOLUME 10.9 fL (9.0-12.2); MONOCYTES # (AUTO) 0.6 10^3/uL (0.0-1.0); MONOCYTES % (AUTO) 8 % (0-12); NEUTROPHILS # (AUTO) 4.5 10^3/uL (1.8-7.8); NEUTROPHILS % (AUTO) 67 % (42-75); PLATELET COUNT 143 10^3/uL (130-400); WHITE BLOOD COUNT 6.7 10^3/uL (4.3-11.0)
[2021-01-31] MEDS: CATHETER FLUSH 10 ML SYR IV SCH ×3 (05:56→22:00)
[2021-01-31] MEDS: PIPERACILLIN/TAZO 4.5 GM/NS 100 ML IV SCH ×6 (05:57→21:06)
[2021-01-31 06:08] LABS: ALBUMIN 3.1 GM/DL (3.2-4.5); POTASSIUM 3.7 MMOL/L (3.6-5.0)
[2021-01-31 06:09] LABS: CALCIUM 8.3 MG/DL (8.5-10.1)
[2021-01-31 06:11] LABS: TOTAL PROTEIN 5.8 GM/DL (6.4-8.2)
[2021-01-31 06:12] LABS: BILIRUBIN,TOTAL 0.6 MG/DL (0.1-1.0)
[2021-01-31 06:14] LABS: CREATININE SERUM 1.43 MG/DL (0.60-1.30)
[2021-01-31] MEDS ORDERED: FLU QUAD HIGH DOSE 240 MCG/0.7 ML 2020-21 (FLUZONE) IM ONE (06:45)
--- NOTE | 2021-01-31 08:30 | Consultation - Surgery ---
BARBARA STEWARD MED STUDENT 01/31/21 0830: History of Present Illness History of Present Illness Patient Consulted On(hebert/time) 01/31/21 08:24 Date Seen by Provider: Jan 31, 2021 Time Seen by Provider: 08:05 Reason for Visit: Surgical Consult Allergies and Home Medications Allergies Coded Allergies: No Known Drug Allergies (Verified , 10/15/09) Home Medications Ascorbic Acid 500 Mg Capsule, 500 MG PO DAILY, (Reported) Aspirin 81 Mg Tablet.dr, 81 MG PO DAILY, (Reported) Atenolol 25 Mg Tablet, 25 MG PO DAILY, (Reported) Calcium Carbonate 600 Mg Tablet, 600 MG PO DAILY, (Reported) Finasteride 5 Mg Tablet, 5 MG PO DAILY, (Reported) Fluoxetine HCl 20 Mg Capsule, 20 MG PO DAILY, (Reported) Gabapentin 300 Mg Capsule, 300 MG PO TID, (Reported) Glucagon,Human Recombinant 1 Mg/Kit Soln, 1 MG IJ ONCE PRN for HYPOGLYCEMIA Prescribed by: JOSE J GROVE on 11/18/20 1222 Hydrocodone/Acetaminophen 1 Each Tablet, 1 EACH PO Q4H PRN for PAIN-MODERATE (5- 7), (Reported) Insulin NPH Hum/Reg Insulin Hm 100 Unit/1 Ml Vial, 10 UNIT SQ BID Prescribed by: JOSE J GROVE on 11/18/20 1222 Lisinopril 20 Mg Tablet, 20 MG PO DAILY@0900 Prescribed by: ANA THOMAS on 11/12/20 1359 Loperamide HCl 2 Mg Capsule, 2 MG PO Q4H PRN for DIARRHEA Prescribed by: RAMESH WILCOX on 11/18/20 1447 Multivit-Min/FA/Lycopene/Lut 1 Each Tablet, 1 TAB PO DAILY, (Reported) Sertraline HCl 50 Mg Tablet, 50 MG PO DAILY, (Reported) Tamsulosin HCl 0.4 Mg Cap, 0.4 MG PO BID Prescribed by: ANA THOMAS on 11/12/20 1359 Patient Home Medication List Home Medication List Reviewed: Yes Past Enjqrse-Jkdtsn-Uxxyet Hx Patient Social History Number of Drinks Today: GG Smoking Status: Former Smoker Type Used: Cigars 2nd Hand Smoke Exposure: Yes Recent Hopitalizations: Yes Alcohol Use?: No Have you traveled recently?: No Immunizations Up To Date Tetanus Booster (TDap): Unknown Date of Pneumonia Vaccine: Sep 29, 2012 Seasonal Allergies Seasonal Allergies: No Surgeries History of Surgeries: Yes (CABG; RIGHT BKA; RIGHT LEG ARTERY BYPASS; PACEMAKER X 2) Surgeries: Abdominal, Amputation, Bowel Surgery, Cardiac, CABG, Eye Surgery, Joint Replacement, Orthopedic, Pacemaker, Vascular Surgery Respiratory History of Respiratory Disorde: Yes (COVID) Respiratory Disorders: Pneumonia Cardiovascular History of Cardiac Disorders: Yes (CABG; PACEMAKER) Cardiac Disorders: Coronary Artery Disease, High Cholesterol, Hypertension, Peripheral Vascular Neurological History of Neurological Disord: Yes Neurological Disorders: Headaches /Migraines, Neuropathy Reproductive System Hx Reproductive Disorders: No Genitourinary History of Genitourinary Disor: Yes Genitourinary Disorders: Prostate Problems, Renal Failure Gastrointestinal History of Gastrointestinal Di: Yes (iscemic bowel) Gastrointestinal Disorders: Chronic Constipation Musculoskeletal History of Musculoskeletal Dis: Yes (RIGHT BKA) Musculoskeletal Disorders: Amputee Endocrine History of Endocrine Disorders: Yes Endocrine Disorders: Diabetes, Insulin dep HEENT History of HEENT Disorders: Yes HEENT Disorders: Cataract Loss of Vision: Denies Hearing Impairment: Hard of Hearing Cancer History of Cancer: No Psychosocial History of Psychiatric Problem: Yes Behavioral Health Disorders: Depression Integumentary History of Skin or Integumenta: No Blood Transfusions History of Blood Disorders: No Adverse Reaction to a Blood Tr: No Family Medical History Significant Family History: Cancer, Diabetes Family Medial History: Diabetes mellitus GRANDMOTHER FH: leukemia G8 BROTHER Testicular cancer 19 FATHER Review of Systems-General Constitutional: No diaphoresis, No fever, No malaise EENTM: no symptoms reported Respiratory: cough, dyspnea on exertion; No hemoptysis; short of breath; No wheezing Cardiovascular: chest pain (Right upper chest), edema, Hx of Intervention (Paced rhythm ); No syncope Gastrointestinal: No RUQ, No LUQ; RLQ; No LLQ; abdominal pain (Pain with eating 10, RLQ); No constipation; diarrhea; No dysphagia, No hematemesis, No jaundice, No loss of appetite, No melena; nausea; No vomiting Genitourinary: No dysuria, No frequency, No hematuria, No incontinence, No pain Musculoskeletal: no symptoms reported Skin: no symptoms reported Psychiatric/Neurological: No Symptoms Reported Physical Exam-General Problems Physical Exam Vital Signs Vital Signs - First Documented 01/30/21 01/30/21 16:15 20:45 Temp 37.9 Pulse 69 Resp 16 B/P (MAP) 112/59 (76) Pulse Ox 91 O2 Delivery Room Air O2 Flow Rate 2.00 Capillary Refill : Less Than 3 Seconds General Appearance: WD/WN, no apparent distress Eyes: Bilateral Eye Normal Inspection, Bilateral Eye EOMI HEENT: PERRL/EOMI, normal ENT inspection, pharynx normal; No scleral icterus (R), No scleral icterus (L), No pale conjunctivae (R), No pale conjunctivae (L) Neck: non-tender, full range of motion, supple, normal inspection Respiratory: chest non-tender; No normal breath sounds, No respiratory distress (currently on oxygen), No accessory muscle use; crackles; No rales, No rhonchi, No stridor, No wheezing, No plerual rub Cardiovascular: normal peripheral pulses; No regular rate, rhythm (Paced rhythm ), No no edema (swelling left ankle); no JVD Peripheral Pulses: 2+ Left Dors-Pedis (L), 2+ Radial Pulses (R), 2+ Radial Pulses (L) Gastrointestinal: No normal bowel sounds; non tender, soft, no organomegaly, no pulsatile mass, abnormal bowel sounds (decreased bowel sounds ); No guarding, No rebound, No tenderness, No hepatomegaly, No spleenomegaly Back: normal inspection, no CVA tenderness Extremities: normal range of motion, non-tender, normal inspection, no calf tenderness (diabetic neuropathy, no feeling below the knee), normal capillary refill; No calf tenderness; pedal edema, swelling Neurologic/Psychiatric: alert, normal mood/affect, oriented x 3 Skin: normal color, warm/dry; No ecchymosis, No jaundice, No pallor Data Review Labs Laboratory Tests 01/30/21 16:30: Urine Color YELLOW, Urine Clarity CLEAR, Urine pH 5.5, Urine Specific [place] 1.025H, Urine Protein 1+H, Urine Glucose (UA) NEGATIVE, Urine Ketones NEGATIVE, Urine Nitrite NEGATIVE, Urine Bilirubin NEGATIVE, Urine Urobilinogen 0.2, Urine Leukocyte Esterase NEGATIVE, Urine RBC (Auto) NEGATIVE, Urine RBC NONE, Urine WBC NONE, Urine Squamous Epithelial Cells RARE, Urine Crystals NONE, Urine Bacteria NEGATIVE, Urine Casts NONE, Urine Mucus NEGATIVE, Urine Culture Indicated NO 01/30/21 16:35: White Blood Count 8.3, Red Blood Count 3.69L, Hemoglobin 11.3L, Hematocrit 34L, Mean Corpuscular Volume 92, Mean Corpuscular Hemoglobin 31, Mean Corpuscular Hemoglobin Concent 33, Red Cell Distribution Width 13.4, Platelet Count 173, Mean Platelet Volume 10.9, Immature Granulocyte % (Auto) 0, Neutrophils (%) (Auto) 77H, Lymphocytes (%) (Auto) 14, Monocytes (%) (Auto) 8, Eosinophils (%) (Auto) 1, Basophils (%) (Auto) 1, Neutrophils # (Auto) 6.4, Lymphocytes # (Auto) 1.1, Monocytes # (Auto) 0.7, Eosinophils # (Auto) 0.1, Basophils # (Auto) 0.0, Immature Granulocyte # (Auto) 0.0, Prothrombin Time 15.4H, INR Comment 1.2, Activated Partial Thromboplast Time 36H, Sodium Level 138, Potassium Level 3.8, Chloride Level 103, Carbon Dioxide Level 25, Anion Gap 10, Blood Urea Nitrogen 27H, Creatinine 1.50H, Estimat Glomerular Filtration Rate 44, BUN/Creatinine Ratio 18, Glucose Level 196H, Lactic Acid Level 1.45, Calcium Level 8.7, Corrected Calcium 9.0, Magnesium Level 1.7, Total Bilirubin 0.7, Aspartate Amino Transf (AST/SGOT) 19, Alanine Aminotransferase (ALT/SGPT) 16, Alkaline Phosphatase 93, Myoglobin 89.9, Troponin I 0.054H, C-Reactive Protein High Sensitivity 7.01H, B-Type Natriuretic Peptide 442.2H, Total Protein 6.5, Albumin 3.6, Lipase 7L 01/31/21 00:32: Troponin I 0.058H 01/31/21 00:40: Glucometer 150H 01/31/21 05:03: Glucometer 191H 01/31/21 05:25: White Blood Count 6.7, Red Blood Count 3.40L, Hemoglobin 10.3L, Hematocrit 32L, Mean Corpuscular Volume 94, Mean Corpuscular Hemoglobin 30, Mean Corpuscular Hemoglobin Concent 32, Red Cell Distribution Width 13.5, Platelet Count 143, Mean Platelet Volume 10.9, Immature Granulocyte % (Auto) 0, Neutrophils (%) (Auto) 67, Lymphocytes (%) (Auto) 22, Monocytes (%) (Auto) 8, Eosinophils (%) (Auto) 2, Basophils (%) (Auto) 0, Neutrophils # (Auto) 4.5, Lymphocytes # (Auto) 1.5, Monocytes # (Auto) 0.6, Eosinophils # (Auto) 0.1, Basophils # (Auto) 0.0, Immature Granulocyte # (Auto) 0.0, Sodium Level 137, Potassium Level 3.7, Chloride Level 103, Carbon Dioxide Level 25, Anion Gap 9, Blood Urea Nitrogen 26H, Creatinine 1.43H, Estimat Glomerular Filtration Rate 47, BUN/Creatinine Ratio 18, Glucose Level 196H, Calcium Level 8.3L, Corrected Calcium 9.0, Total Bilirubin 0.6, Aspartate Amino Transf (AST/SGOT) 14, Alanine Aminotransferase (ALT/SGPT) 13, Alkaline Phosphatase 79, Troponin I 0.053H, C-Reactive Protein High Sensitivity 11.91H, Total Protein 5.8L, Albumin 3.1L, Triglycerides Level 106, Cholesterol Level 108, LDL Cholesterol Direct 67, VLDL Cholesterol 21, HDL Cholesterol 24L Assessment/Plan Assessment/Plan Assessment/Plan ASSESSMENT Acute Colitis Pneumonia Abdominal Angina Gastric Ulcers Uncontrolled diabetes Hx of coronary heart disease Hx of ischemic bowel disease Atherosclerotic disease PLAN Zosyn treatment IVF maintenance Observation EGD CT angiogram of the abdomen NORRIS GREENBERG DO 01/31/21 1056: History of Present Illness History of Present Illness History of Present Illness Consult requested by Dr. Hart for colitis. 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 Jamel stanley earlier in week had chicken then began having some abdominal pain in the lower abdomen. It continued until it worsened last night to an 8/10. No radiation of pain. Having loose stools over the week, but took Imodium which thickened them up. No blood in stools. He states he had some nausea no emesis. Pain he states is not like what he experienced when had ischemic bowel. Currently tolerating some clears. Had ct scan suggestive of colitis around the splenic flexure and descending colon. Allergies and Home Medications Allergies Coded Allergies: No Known Drug Allergies (Verified , 10/15/09) Home Medications Ascorbic Acid 500 Mg Capsule, 500 MG PO DAILY, (Reported) Aspirin 81 Mg Tablet.dr, 81 MG PO DAILY, (Reported) Atenolol 25 Mg Tablet, 25 MG PO DAILY, (Reported) Calcium Carbonate 600 Mg Tablet, 600 MG PO DAILY, (Reported) Finasteride 5 Mg Tablet, 5 MG PO DAILY, (Reported) Fluoxetine HCl 20 Mg Capsule, 20 MG PO DAILY, (Reported) Gabapentin 300 Mg Capsule, 300 MG PO TID, (Reported) Glucagon,Human Recombinant 1 Mg/Kit Soln, 1 MG IJ ONCE PRN for HYPOGLYCEMIA Prescribed by: JOSE J GROVE on 11/18/20 1222 Hydrocodone/Acetaminophen 1 Each Tablet, 1 EACH PO Q4H PRN for PAIN-MODERATE (5- 7), (Reported) Insulin NPH Hum/Reg Insulin Hm 100 Unit/1 Ml Vial, 10 UNIT SQ BID Prescribed by: JOSE J GROVE on 11/18/20 1222 Lisinopril 20 Mg Tablet, 20 MG PO DAILY@0900 Prescribed by: ANA THOMAS on 11/12/20 1359 Loperamide HCl 2 Mg Capsule, 2 MG PO Q4H PRN for DIARRHEA Prescribed by: RAMESH WILCOX on 11/18/20 1447 Multivit-Min/FA/Lycopene/Lut 1 Each Tablet, 1 TAB PO DAILY, (Reported) Sertraline HCl 50 Mg Tablet, 50 MG PO DAILY, (Reported) Tamsulosin HCl 0.4 Mg Cap, 0.4 MG PO BID Prescribed by: ANA THOMAS on 11/12/20 1359 Patient Home Medication List Home Medication List Reviewed: Yes Past Yxdamnc-Jawanj-Sngmxu Hx Reviewed Nursing Assessment Reviewed/Agree w Nursing PMH: Yes Family Medical History Significant Family History: No Pertinent Family Hx Family Medial History: Diabetes mellitus GRANDMOTHER FH: leukemia G8 BROTHER Testicular cancer 19 FATHER Review of Systems-General Constitutional: No diaphoresis, No fever, No malaise EENTM: No blurred vision, No double vision Respiratory: cough, dyspnea on exertion, short of breath Cardiovascular: chest pain (Right upper chest) Genitourinary: No decreased output, No discharge Musculoskeletal: No back pain, No joint pain Skin: No change in color, No change in hair/nails Psychiatric/Neurological: Denies Anxiety, Denies Depressed, Denies Emotional Problems All Other Systems Reviewed Negative Unless Noted: Yes (Negative excepted noted.) Physical Exam-General Problems Physical Exam General Appearance: WD/WN, no apparent distress (sitting in chair) HEENT: PERRL/EOMI, normal ENT inspection, pharynx normal Neck: non-tender, supple Respiratory: chest non-tender, no respiratory distress, no accessory muscle use Cardiovascular: regular rate, rhythm (paced), no JVD Gastrointestinal: non tender, soft, no organomegaly, no pulsatile mass; No guarding, No rebound, No tenderness, No hepatomegaly, No spleenomegaly Rectal: deferred Back: normal inspection, no CVA tenderness Extremities: normal range of motion, non-tender, normal inspection, swelling (left lower ext, ), other (right bka) Neurologic/Psychiatric: alert, normal mood/affect, oriented x 3 Skin: normal color, warm/dry; No ecchymosis, No jaundice, No pallor Lymphatic: no adenopathy Assessment/Plan Assessment/Plan Assessment/Plan Acute Colitis Lower abdominal pain Pleural effusion b/l Uncontrolled diabetes Elevated Troponin Hx of coronary heart disease Hx of ischemic bowel disease Atherosclerotic disease PLAN Clear liquids IV abx on Zosyn IVF fluids Patient on physical exam no significant tenderness at this time. The pain he was having has resolved. I do not feel he has ischemic colitis at this time. Continue antibiotics. Conservative management at this time. Supervisory-Addendum Brief Verification & Attestation Participated in pt care: history, MDM, physical Personally performed: exam, history, MDM, supervision of care Care discussed with: Medical Student Procedures: n/a Results interpretation: Verified all documentation Verification and Attestation of Medical Student E/M Service A medical student performed and documented this service in my presence. I reviewed and verified all information documented by the medical student and made modifications to such information, when appropriate. I personally performed the physical exam and medical decision making. Norris Greenberg, Jan 31, 2021,11:11 BARBARA STEWARD MED STUDENT Jan 31, 2021 08:30 NORRIS GREENBERG DO Jan 31, 2021 10:56
[2021-01-31] MEDS: ENOXAPARIN 100 MG/1 ML (LOVENOX) SYR SC SCH ×2 (08:54→21:05)
[2021-01-31] MEDS: ASPIRIN E.C. 81 MG (ECOTRIN) TAB PO SCH (08:54)
--- NOTE | 2021-01-31 10:51 | Progress Note ---
Subjective Subjective/Events-last exam Afebrile, states he is feeling about the same, was okay until he had some breakfast and his stomach started hurting again and he had diarrhea. Focused Exam Lactate Level 01/30/21 16:35: Lactic Acid Level 1.45 Objective Exam Last Set of Vital Signs Vital Signs Date Time Temp Pulse Resp B/P (MAP) Pulse Ox O2 Delivery O2 Flow Rate FiO2 01/31/21 08:51 Nasal Cannula 1.50 01/31/21 07:00 70 01/31/21 04:33 36.6 20 122/63 (82) 96 Capillary Refill : Less Than 3 Seconds I&O Intake and Output 01/30/21 23:59 Intake Total 10 ml Balance 10 ml IV Total 10 ml Daily Weight Change No General: Alert, No Acute Distress Lungs: Clear to Auscultation Heart: Regular Rate, No Murmurs Abdomen: Normal Bowel Sounds, Soft, Other (midline scar, periumbilical erythema nearly resolved, moderate to marked ttp bilateral lower quadrants) Neuro: Normal Speech Psych/Mental Status: Mood NL Results/Procedures Lab Laboratory Tests 01/30/21 16:30: Urine Color YELLOW, Urine Clarity CLEAR, Urine pH 5.5, Urine Specific [place] 1.025H, Urine Protein 1+H, Urine Glucose (UA) NEGATIVE, Urine Ketones NEGATIVE, Urine Nitrite NEGATIVE, Urine Bilirubin NEGATIVE, Urine Urobilinogen 0.2, Urine Leukocyte Esterase NEGATIVE, Urine RBC (Auto) NEGATIVE, Urine RBC NONE, Urine WBC NONE, Urine Squamous Epithelial Cells RARE, Urine Crystals NONE, Urine Bacteria NEGATIVE, Urine Casts NONE, Urine Mucus NEGATIVE, Urine Culture Indicated NO 01/30/21 16:35: White Blood Count 8.3, Red Blood Count 3.69L, Hemoglobin 11.3L, Hematocrit 34L, Mean Corpuscular Volume 92, Mean Corpuscular Hemoglobin 31, Mean Corpuscular Hemoglobin Concent 33, Red Cell Distribution Width 13.4, Platelet Count 173, Mean Platelet Volume 10.9, Immature Granulocyte % (Auto) 0, Neutrophils (%) (Auto) 77H, Lymphocytes (%) (Auto) 14, Monocytes (%) (Auto) 8, Eosinophils (%) (Auto) 1, Basophils (%) (Auto) 1, Neutrophils # (Auto) 6.4, Lymphocytes # (Auto) 1.1, Monocytes # (Auto) 0.7, Eosinophils # (Auto) 0.1, Basophils # (Auto) 0.0, Immature Granulocyte # (Auto) 0.0, Prothrombin Time 15.4H, INR Comment 1.2, Activated Partial Thromboplast Time 36H, Sodium Level 138, Potassium Level 3.8, Chloride Level 103, Carbon Dioxide Level 25, Anion Gap 10, Blood Urea Nitrogen 27H, Creatinine 1.50H, Estimat Glomerular Filtration Rate 44, BUN/Creatinine Ratio 18, Glucose Level 196H, Lactic Acid Level 1.45, Calcium Level 8.7, Corrected Calcium 9.0, Magnesium Level 1.7, Total Bilirubin 0.7, Aspartate Amino Transf (AST/SGOT) 19, Alanine Aminotransferase (ALT/SGPT) 16, Alkaline Phosphatase 93, Myoglobin 89.9, Troponin I 0.054H, C-Reactive Protein High Sensitivity 7.01H, B-Type Natriuretic Peptide 442.2H, Total Protein 6.5, Albumin 3.6, Lipase 7L 01/31/21 00:32: Troponin I 0.058H 01/31/21 00:40: Glucometer 150H 01/31/21 05:03: Glucometer 191H 01/31/21 05:25: White Blood Count 6.7, Red Blood Count 3.40L, Hemoglobin 10.3L, Hematocrit 32L, Mean Corpuscular Volume 94, Mean Corpuscular Hemoglobin 30, Mean Corpuscular Hemoglobin Concent 32, Red Cell Distribution Width 13.5, Platelet Count 143, Mean Platelet Volume 10.9, Immature Granulocyte % (Auto) 0, Neutrophils (%) (Auto) 67, Lymphocytes (%) (Auto) 22, Monocytes (%) (Auto) 8, Eosinophils (%) (Auto) 2, Basophils (%) (Auto) 0, Neutrophils # (Auto) 4.5, Lymphocytes # (Auto) 1.5, Monocytes # (Auto) 0.6, Eosinophils # (Auto) 0.1, Basophils # (Auto) 0.0, Immature Granulocyte # (Auto) 0.0, Sodium Level 137, Potassium Level 3.7, Chloride Level 103, Carbon Dioxide Level 25, Anion Gap 9, Blood Urea Nitrogen 26H, Creatinine 1.43H, Estimat Glomerular Filtration Rate 47, BUN/Creatinine Ratio 18, Glucose Level 196H, Calcium Level 8.3L, Corrected Calcium 9.0, Total Bilirubin 0.6, Aspartate Amino Transf (AST/SGOT) 14, Alanine Aminotransferase (ALT/SGPT) 13, Alkaline Phosphatase 79, Troponin I 0.053H, C-Reactive Protein High Sensitivity 11.91H, Total Protein 5.8L, Albumin 3.1L, Triglycerides Level 106, Cholesterol Level 108, LDL Cholesterol Direct 67, VLDL Cholesterol 21, HDL Cholesterol 24L Radiology CT abdomen/pelvis 01/30: IMPRESSION: 1. Inflammatory changes of the splenic flexure and descending colon, consistent with colitis. Marked atherosclerosis is suspicious for a vascular etiology, however infectious or inflammatory causes are in the differential. 2. Moderate bilateral pleural effusions. CXR 4: IMPRESSION: 1. Cardiac enlargement with slightly worsening central vascular congestion. 2. Stable pleural thickening and likely small bilateral pleural effusions. Assessment/Plan Assessment/Plan (1) Colitis Status: Acute Assessment & Plan: Possibly infectious, Zosyn started, however concern also for ischemia given history. Lactic acid okay. Surgery consulted, appreciate recommendations. (2) Abdominal wall cellulitis Status: Acute Assessment & Plan: Zosyn started for colitis and cellulitis. No leukocytosis or lactic acidosis. 3/5 improved significantly (3) Elevated troponin Status: Acute Assessment & Plan: Cardiology consulted, appreciate recommendations. (4) COPD (chronic obstructive pulmonary disease) Status: Chronic (5) Diabetes mellitus Status: Chronic Qualifiers: (6) Anemia Status: Chronic Qualifiers: Qualified Codes: D63.8 - Anemia in other chronic diseases classified elsewhere (7) Coronary artery disease Status: Chronic Qualifiers: Qualified Codes: I25.10 - Atherosclerotic heart disease of redding coronary artery without angina pectoris (8) Chronic respiratory failure with hypoxia Status: Chronic (9) Acute kidney injury Status: Acute Assessment & Plan: Creatinine has been intermittently around this level over t he last year, so may be more baseline, however will monitor closely. 3/5 creatinine stable/slightly decreased (10) HTN (hypertension) Status: Chronic Qualifiers: Qualified Codes: I10 - Essential (primary) hypertension (11) BPH (benign prostatic hyperplasia) Status: Chronic (12) DVT prophylaxis Status: Acute Assessment & Plan: Enoxaparin SHANNON GUTIERREZ MD Jan 31, 2021 10:51
[2021-01-31] MEDS ORDERED: FURO40TA4 PO (12:37)
[2021-01-31] MEDS ORDERED: TMSL.4C PO (12:37)
[2021-01-31] MEDS ORDERED: LORA-404 PO (12:37)
[2021-01-31] MEDS ORDERED: HUM100VI SQ (12:37)
[2021-01-31] MEDS ORDERED: GLUC1KIT IJ (12:43)
[2021-01-31] MEDS ORDERED: LORazepam 0.5 MG (ATIVAN) TABLET PO PRN (14:00)
[2021-01-31] MEDS: FUROSEMIDE 40 MG (LASIX) TAB PO SCH (18:19)
--- NOTE | 2021-01-31 19:46 | Consultation-Cardiology ---
HPI-Cardiology Cardiology Consultation: Date of Consultation 01/31/21 Date of Admission Attending Physician Alicia Mckeon MD Admitting Physician Trever Rawls MD Consulting Physician Martinez EATON MD HPI: Time Seen by a Provider: 14:00 Chief Complaint: chest discomfort 85 year old male with history of PPM. presents with abdominal pain and occasional chest discomfort. mild shortness of breath. recent abdominal surgeries. Review of Systems-Cardiology Review of Systems Constitutional: As described under HPI; No As described under HPI, No no symptoms reported, No chills, No fever, No lightheadedness Eyes: No As described under HPI, No no symptoms reported, No blindness, No blurred vision, No contact lenses, No drainage, No decreased acuity, No foreign body sensation, No pain, No vision change Ears/Nose/Throat: No As described under HPI, No no symptoms reported, No ch ronic hearing loss, No ear discharge, No ear pain, No nasal drainage, No ulcerations Respiratory: No no symptoms reported; As described under HPI; No As described under HPI, No cough, No orthopnea, No shortness of breath, No SOB with excertion Cardiovascular: No no symptoms reported; As described under HPI; No As described under HPI; chest pain; No edema, No irregular heart rate, No lightheadedness, No palpitations Gastrointestinal: No no symptoms reported, No As described under HPI, No abdomen distended; abdominal pain; No blood streaked bowels, No constipation, No diarrhea, No nausea, No vomiting, No stool coloration changes Genitourinary: No As described under HPI, No burning, No dysuria, No discharge, No frequency, No flank pain, No hematuria, No urgency Skin: No rash, No skin related problems, No ulcerations Psychiatric/Neurological: No anxiety, No depression, No seizure, No focal weakness, No syncope Hematologic: No bleeding abnormalities All Other Systems Reviewed Negative Unless Noted: Yes (Negative excepted noted.) FAU-[id number] Hx Patient Social History Smoking Status: Former Smoker Former smoker/When Quit: Jan 12, 1994 2nd Hand Smoke Exposure: Yes Have you traveled recently?: No Alcohol Use?: No Pt feels they are or have been: No Tobacco type used: Cigars, Cigarettes Immunizations Up To Date Tetanus Booster (TDap): Unknown Date of Pneumonia Vaccine: Sep 29, 2012 Past Medical History PMH As described under Assessment. Family Medical History Family Medical History: He reports his father CAD with an [place] in his later years. He reports his mother had CAD. He reports a son who had CAD, unsure of age of diagnosis. Family History: Diabetes mellitus GRANDMOTHER FH: leukemia G8 BROTHER Testicular cancer 19 FATHER Allergies and Home Medications Allergies Coded Allergies: No Known Drug Allergies (Verified , 10/15/09) Home Medications Ascorbic Acid 500 Mg Capsule, 500 MG PO DAILY, (Reported) Aspirin 81 Mg Tablet.dr, 81 MG PO DAILY, (Reported) Atenolol 25 Mg Tablet, 25 MG PO HS, (Reported) Calcium Carbonate 600 Mg Tablet, 600 MG PO DAILY, (Reported) Finasteride 5 Mg Tablet, 5 MG PO HS, (Reported) Fluoxetine HCl 20 Mg Capsule, 20 MG PO HS, (Reported) Furosemide 40 Mg Tablet, 40 MG PO HS, (Reported) Gabapentin 300 Mg Capsule, 300 MG PO BID, (Reported) Glucagon,Human Recombinant 1 Mg/Kit Soln, 1 MG IJ UD PRN for HYPOGLYCEMIA, (Reported) Insulin NPH Hum/Reg Insulin Hm 100 Unit/1 Ml Vial, 10 UNIT SQ BIDPC, (Reported) Lorazepam 0.5 Mg Tablet, 0.5 MG PO BID PRN for ANXIETY, (Reported) Multivit-Min/FA/Lycopene/Lut 1 Each Tablet, 1 TAB PO DAILY, (Reported) Sertraline HCl 50 Mg Tablet, 50 MG PO HS, (Reported) Tamsulosin HCl 0.4 Mg Cap, 0.4 MG PO BID, (Reported) Patient Home Medication List Home Medication List Reviewed: Yes Physical Exam-Cardiology Physical Exam Vital Signs/I&O 02/01/21 02/01/21 02/01/21 02/01/21 04:00 07:00 08:12 12:05 Temp 36.4 36.6 36.5 Pulse 70 71 71 77 Resp 16 20 20 B/P (MAP) 120/57 (78) 129/59 (82) 129/60 (83) Pulse Ox 97 98 94 O2 Delivery Nasal Cannula Room Air O2 Flow Rate 1.50 1.50 02/01/21 13:00 Pulse 69 02/01/21 00:00 Intake Total 1440 ml Output Total 1350 ml Balance 90 ml Capillary Refill : Less Than 3 Seconds Constitutional: AAO x 3 HEENT: PERRL Neck: supple Respiratory: chest is bilaterally symmetric, lungs clear to auscultation Cardiovascular: regular rate-rhythm, S1 and S2 Gastrointestinal: soft Rectal: deferred Extremities: no lower extremity edema bilateral Neurologic/Psychiatric: no motor/sensory deficits, alert, normal mood/affect, oriented x 3 Lymphatic: no adenopathy Data Review Labs Laboratory Tests 01/31/21 18:08: Glucometer 217H 01/31/21 20:42: Glucometer 191H 01/31/21 23:31: Glucometer 164H 02/01/21 05:06: Glucometer 166H 02/01/21 05:07: White Blood Count 5.0, Red Blood Count 3.42L, Hemoglobin 10.1L, Hematocrit 33L, Mean Corpuscular Volume 95, Mean Corpuscular Hemoglobin 30, Mean Corpuscular Hemoglobin Concent 31L, Red Cell Distribution Width 13.4, Platelet Count 162, Mean Platelet Volume 10.6, Sodium Level 139, Potassium Level 3.7, Chloride Level 104, Carbon Dioxide Level 23, Anion Gap 12, Blood Urea Nitrogen 23H, Creatinine 1.51H, Estimat Glomerular Filtration Rate 44, BUN/Creatinine Ratio 15, Glucose Level 172H, Calcium Level 8.3L 02/01/21 11:21: Glucometer 231H Microbiology 01/30/21 Blood Culture - Preliminary, Resulted No growth ECG Impression ECG Comment AV sequential pacing A/P-Cardiology Assessment/Admission Diagnosis Abdominal discomfort - defer to general surgery. acute on chronic systolic and diastolic CHF CKD 3, probably diabetic nephropathy CAD - reported h/o CABG x 4 vessel - followed by his vacuum repairer Dr Parada Echo of 04/11/20: LVEF 40-45%, grade 3 wolf dysfunction, biatrial enlargement, PASP 55-60 mmHg PPM - pt states it is followed by Dr. Parada his primary vacuum repairer H/O R BKA - per pt it was done at the time of CABG - details unknown Open colon resection on 04-03-[address] Henderson d/t ischemic colon DM 2 HTN HLD Macular degeneration H/O tobaccoism - states he has not smoked in years Prob COPD BPH with urinary retention and hematuria - managed per Dr. Sal Plan - borderline positive troponin - may require nuclear stress testing on wednesday. history of cad. continue secondary prevention measures. - elevated BNP - lasix 40mg. Echocardiogram - on iv atb for abdominal sepsis. Thank you for your consultation. Please call me if you have any questions. Lanre Eaton MD, FACP, FACC, [facility] [place], FHRS, CCDS Interventional Cardiology Cardiac Electrophysiology Vascular Medicine and Endovascular Interventions Martinez EATON MD Jan 31, 2021 19:46
[2021-01-31] MEDS: FLUoxetine HCL 20 MG (PROzac) CAP PO SCH (21:05)
[2021-01-31] MEDS: GABAPENTIN 300 MG (NEURONTIN) CAP PO SCH (21:06)
[2021-01-31] MEDS: TAMSULOSIN 0.4 MG (FLOMAX) CAP PO SCH (21:06)
[2021-01-31] MEDS: FINASTERIDE (PROSCAR) 5 MG TAB PO SCH (21:06)
[2021-02-01 04:00] VITALS: BP 120/57
[2021-02-01] MEDS: PIPERACILLIN/TAZO 4.5 GM/NS 100 ML IV SCH ×6 (04:54→21:15)
[2021-02-01] MEDS: inSUlin ASPART (NovoLOG) 1 UNIT/0.01 ML (CHARGE PER UNIT) SC SCH ×4 (05:17→20:54)
[2021-02-01] MEDS: CATHETER FLUSH 10 ML SYR IV SCH ×3 (05:18→21:15)
[2021-02-01 05:37] LABS: HEMOGLOBIN 10.1 g/dL (13.3-17.7); MEAN PLATELET VOLUME 10.6 fL (9.0-12.2)
[2021-02-01 05:51] LABS: POTASSIUM 3.7 MMOL/L (3.6-5.0)
[2021-02-01 05:52] LABS: CALCIUM 8.3 MG/DL (8.5-10.1)
[2021-02-01 05:56] LABS: CREATININE SERUM 1.51 MG/DL (0.60-1.30)
[2021-02-01 08:12] VITALS: BP 129/59
[2021-02-01] MEDS: ASPIRIN E.C. 81 MG (ECOTRIN) TAB PO SCH (08:13)
[2021-02-01] MEDS: TAMSULOSIN 0.4 MG (FLOMAX) CAP PO SCH ×2 (08:13→21:15)
[2021-02-01] MEDS: ENOXAPARIN 100 MG/1 ML (LOVENOX) SYR SC SCH ×2 (08:13→21:15)
[2021-02-01] MEDS: GABAPENTIN 300 MG (NEURONTIN) CAP PO SCH ×2 (08:13→21:15)
--- NOTE | 2021-02-01 10:35 | Progress Note ---
Subjective Date Seen by a Provider: Feb 01, 2021 Time Seen by a Provider: 10:15 Subjective/Events-last exam Patient seen with Dr. Mari. Patient reports doing well today. Denies any abdominal pain, nausea, vomiting. Reports passing lots of flatus and feels hungry. Focused Exam Lactate Level 01/30/21 16:35: Lactic Acid Level 1.45 Objective Exam Vital Signs Date Time Temp Pulse Resp B/P (MAP) Pulse Ox O2 Delivery O2 Flow Rate FiO2 02/01/21 08:12 36.6 71 20 129/59 (82) 98 Nasal Cannula 1.50 02/01/21 07:00 71 02/01/21 04:00 36.4 70 16 120/57 (78) 97 1.50 02/01/21 01:00 70 01/31/21 23:28 36.2 70 20 127/60 (82) 98 Nasal Cannula 1.50 01/31/21 20:00 36.5 69 20 95/54 (68) 95 Nasal Cannula 1.50 01/31/21 19:00 80 01/31/21 16:13 36.8 70 18 117/57 (77) 98 Nasal Cannula 1.50 01/31/21 12:41 70 01/31/21 12:00 35.8 72 20 113/51 (71) 91 Nasal Cannula 1.50 I & O 02/01/21 06:59 Intake Total 1590 ml Output Total 2050 ml Balance -460 ml Capillary Refill : Less Than 3 Seconds General Appearance: No Apparent Distress, WD/WN Neck: Normal Inspection, Supple Respiratory: Normal Breath Sounds, No Accessory Muscle Use, No Respiratory Distress Cardiovascular: Regular Rate, Rhythm, No Edema Gastrointestinal: normal bowel sounds, non tender, soft Extremity: Normal Range of Motion, Other (Right BKA) Neurologic/Psychiatric: Alert, Oriented x3 Skin: Normal Color, Warm/Dry Results Lab Laboratory Tests 01/31/21 11:13: Glucometer 240H 01/31/21 18:08: Glucometer 217H 01/31/21 20:42: Glucometer 191H 01/31/21 23:31: Glucometer 164H 02/01/21 05:06: Glucometer 166H 02/01/21 05:07: White Blood Count 5.0, Red Blood Count 3.42L, Hemoglobin 10.1L, Hematocrit 33L, Mean Corpuscular Volume 95, Mean Corpuscular Hemoglobin 30, Mean Corpuscular Hemoglobin Concent 31L, Red Cell Distribution Width 13.4, Platelet Count 162, Mean Platelet Volume 10.6, Sodium Level 139, Potassium Level 3.7, Chloride Level 104, Carbon Dioxide Level 23, Anion Gap 12, Blood Urea Nitrogen 23H, Creatinine 1.51H, Estimat Glomerular Filtration Rate 44, BUN/Creatinine Ratio 15, Glucose Level 172H, Calcium Level 8.3L Microbiology 01/30/21 Blood Culture - Preliminary, Resulted No growth Assessment/Plan Assessment/Plan Assess & Plan/Chief Complaint An 85 year old male with acute colitis, lower abdominal pain, Pleural effusion b/l, Uncontrolled diabetes, Elevated Troponin, Hx of coronary heart disease, Hx of ischemic bowel disease, Atherosclerotic disease VSS WBC - WNL Tolerating clear liquid diet - will advance to dys3 Continue IV abx and fluids Pain and nausea meds as needed Will continue with conservative medical management TOBIAS JARAMILLO APRN Feb 01, 2021 10:35
--- NOTE | 2021-02-01 11:56 | Progress Note - Hospitalist ---
Subjective HPI/CC On Admission Date Seen by Provider: Feb 01, 2021 Time Seen by Provider: 11:30 Subjective/Events-last exam Patient is without complaint today. He has had no further diarrhea. His diet is being advanced. He is off his oxygen and breathing normally. His stomach pain is much better. Focused Exam Lactate Level 01/30/21 16:35: Lactic Acid Level 1.45 Objective Exam Vital Signs Vital Signs Date Time Temp Pulse Resp B/P (MAP) Pulse Ox O2 Delivery O2 Flow Rate FiO2 02/01/21 13:00 69 02/01/21 12:05 36.5 20 129/60 (83) 94 Room Air 02/01/21 08:12 1.50 Capillary Refill : Less Than 3 Seconds General Appearance: No Apparent Distress Neck: Limited Range of Motion Respiratory: Lungs Clear, Normal Breath Sounds, No Accessory Muscle Use, No Respiratory Distress Cardiovascular: Regular Rate, Rhythm, No Gallop Gastrointestinal: Soft, Other (Nontender without erythema) Back: Normal Inspection Extremity: Other (Right BKA) Neurologic/Psychiatric: Alert, Oriented x3, No Motor/Sensory Deficits, Normal Mood/Affect Results/Procedures Lab Laboratory Tests 02/01/21 05:07 Patient resulted labs reviewed. Assessment/Plan Assessment and Plan Assess & Plan/Chief Complaint Colitis resolving Cellulitis improving-day #2 Zosyn Elevated troponin Renal insufficiency appears to be at baseline Mild anemia SARAH DAHL MD Feb 01, 2021 11:56
[2021-02-01 12:05] VITALS: BP 129/60
--- NOTE | 2021-02-01 15:06 | Cardiology Progress Note ---
Cardiology SOAP Progress Note Subjective: no cardiac complaints Objective: I&O/Vital Signs 02/01/21 02/01/21 02/01/21 02/01/21 04:00 07:00 08:12 12:05 Temp 36.4 36.6 36.5 Pulse 70 71 71 77 Resp 16 20 20 B/P (MAP) 120/57 (78) 129/59 (82) 129/60 (83) Pulse Ox 97 98 94 O2 Delivery Nasal Cannula Room Air O2 Flow Rate 1.50 1.50 02/01/21 13:00 Pulse 69 02/01/21 00:00 Intake Total 1440 ml Output Total 1350 ml Balance 90 ml Weight (Pounds): 226 Weight (Ounces): 9.6 Weight (Calculated Kilograms): 102.893063 Constitutional: AAO x 3 Respiratory: chest is bilaterally symmetric, lungs clear to auscultation Cardiovascular: regular rate-rhythm, S1 and S2 Gastrointestional: soft Extremities: no lower extremity edema bilateral Neurologic/Psychiatric: no motor/sensory deficits, alert, normal mood/affect, oriented x 3 Results/Procedures: Labs Laboratory Tests 01/31/21 18:08: Glucometer 217H 01/31/21 20:42: Glucometer 191H 01/31/21 23:31: Glucometer 164H 02/01/21 05:06: Glucometer 166H 02/01/21 05:07: White Blood Count 5.0, Red Blood Count 3.42L, Hemoglobin 10.1L, Hematocrit 33L, Mean Corpuscular Volume 95, Mean Corpuscular Hemoglobin 30, Mean Corpuscular Hemoglobin Concent 31L, Red Cell Distribution Width 13.4, Platelet Count 162, Mean Platelet Volume 10.6, Sodium Level 139, Potassium Level 3.7, Chloride Level 104, Carbon Dioxide Level 23, Anion Gap 12, Blood Urea Nitrogen 23H, Creatinine 1.51H, Estimat Glomerular Filtration Rate 44, BUN/Creatinine Ratio 15, Glucose Level 172H, Calcium Level 8.3L 02/01/21 11:21: Glucometer 231H Microbiology 01/30/21 Blood Culture - Preliminary, Resulted No growth A/P: Assessment/Dx: Abdominal discomfort - defer to general surgery. acute on chronic systolic and diastolic CHF CKD 3, probably diabetic nephropathy CAD - reported h/o CABG x 4 vessel - followed by his bump grader operator Dr Parada Echo of 04/11/20: LVEF 40-45%, grade 3 wolf dysfunction, biatrial enlargement, PASP 55-60 mmHg PPM - pt states it is followed by Dr. Parada his primary bump grader operator H/O R BKA - per pt it was done at the time of CABG - details unknown Open colon resection on 04-03-[address] Henderson d/t ischemic colon DM 2 HTN HLD Macular degeneration H/O tobaccoism - states he has not smoked in years Prob COPD BPH with urinary retention and hematuria - managed per Dr. Sal Plan: - borderline positive troponin - may require nuclear stress testing on wednesday. history of cad. continue secondary prevention measures. - elevated BNP - lasix 40mg. Echocardiogram - on iv atb for abdominal sepsis. Thank you for your consultation. Please call me if you have any questions. Lanre Eaton MD, FACP, FACC, [facility]SCAI, FHRS, CCDS Interventional Cardiology Cardiac Electrophysiology Vascular Medicine and Endovascular Interventions Focused Exam Lactate Level 01/30/21 16:35: Lactic Acid Level 1.45 Martinez EATON MD Feb 01, 2021 15:06
[2021-02-01 16:00] VITALS: BP 138/71
[2021-02-01] MEDS: FUROSEMIDE 40 MG (LASIX) TAB PO SCH (17:15)
[2021-02-01 20:30] VITALS: BP 131/58
[2021-02-01] MEDS: FINASTERIDE (PROSCAR) 5 MG TAB PO SCH (21:15)
[2021-02-01] MEDS: FLUoxetine HCL 20 MG (PROzac) CAP PO SCH (21:15)
[2021-02-02] VITALS: BP 113/62
[2021-02-02 04:00] VITALS: BP 129/60
[2021-02-02] MEDS: PIPERACILLIN/TAZO 4.5 GM/NS 100 ML IV SCH ×6 (06:11→20:44)
[2021-02-02] MEDS: inSUlin ASPART (NovoLOG) 1 UNIT/0.01 ML (CHARGE PER UNIT) SC SCH ×4 (06:11→21:33)
[2021-02-02] MEDS: CATHETER FLUSH 10 ML SYR IV SCH ×3 (06:11→22:14)
[2021-02-02 08:01] VITALS: BP 124/62
[2021-02-02] MEDS: GABAPENTIN 300 MG (NEURONTIN) CAP PO SCH ×2 (08:41→20:43)
[2021-02-02] MEDS: TAMSULOSIN 0.4 MG (FLOMAX) CAP PO SCH ×2 (08:41→20:44)
[2021-02-02] MEDS: ASPIRIN E.C. 81 MG (ECOTRIN) TAB PO SCH (08:41)
[2021-02-02] MEDS: ENOXAPARIN 100 MG/1 ML (LOVENOX) SYR SC SCH ×2 (08:41→20:44)
--- NOTE | 2021-02-02 09:59 | Progress Note ---
Subjective Date Seen by a Provider: Feb 02, 2021 Time Seen by a Provider: 09:50 Subjective/Events-last exam Patient seen with Dr. Mari. Patient reports that he has been tolerating his diet. He did report several episodes of diarrhea last night as well as this morning. He denies any abdominal pain as well as no nausea or vomiting. Focused Exam Lactate Level 01/30/21 16:35: Lactic Acid Level 1.45 Objective Exam Vital Signs Date Time Temp Pulse Resp B/P (MAP) Pulse Ox O2 Delivery O2 Flow Rate FiO2 02/02/21 08:01 36.6 71 20 124/62 (82) 95 Room Air 02/02/21 08:00 Room Air 02/02/21 07:00 70 02/02/21 04:00 36.0 72 18 129/60 (83) 93 Room Air 02/02/21 00:27 70 02/02/21 00:00 36.8 76 18 113/62 (79) 92 Room Air 02/01/21 20:30 36.4 70 18 131/58 (82) 94 Room Air 02/01/21 20:22 94 Room Air 02/01/21 20:00 Room Air 02/01/21 19:00 69 02/01/21 16:00 36.6 71 18 138/71 (93) 94 Room Air 02/01/21 13:00 69 02/01/21 12:05 36.5 77 20 129/60 (83) 94 Room Air I & O 02/02/21 07:00 Intake Total 1680 ml Output Total 1250 ml Balance 430 ml Capillary Refill : Less Than 3 Seconds General Appearance: No Apparent Distress, WD/WN Neck: Normal Inspection, Supple Respiratory: No Accessory Muscle Use, No Respiratory Distress Cardiovascular: Regular Rate, Rhythm, No Edema Gastrointestinal: normal bowel sounds, non tender, soft Extremity: Normal Range of Motion, Other (Right BKA) Neurologic/Psychiatric: Alert, Oriented x3 Skin: Normal Color, Warm/Dry Results Lab Laboratory Tests 02/01/21 11:21: Glucometer 231H 02/01/21 16:20: Glucometer 209H 02/01/21 20:53: Glucometer 156H 02/02/21 04:52: Glucometer 238H 02/02/21 09:14: Stool Occult Blood Immunoassay POSITIVEH Microbiology 3/4/21 Blood Culture - Preliminary, Resulted No growth Assessment/Plan Assessment/Plan Assess & Plan/Chief Complaint An 85 year old male with acute colitis, lower abdominal pain, Pleural effusion b/l, Uncontrolled diabetes, Elevated Troponin, Hx of coronary heart disease, Hx of ischemic bowel disease, Atherosclerotic disease VSS WBC - WNL occult positive stool, Hgb stable at 10.1 - will continue to monitor Tolerating dys3 diet Continue IV abx and fluids Pain and nausea meds as needed Will continue with conservative medical management TOBIAS JARAMILLO SCALP SPECIALIST Feb 02, 2021 09:59
[2021-02-02 12:07] VITALS: BP 150/65
--- NOTE | 2021-02-02 12:16 | Progress Note - Hospitalist ---
Subjective HPI/CC On Admission Date Seen by Provider: Feb 02, 2021 Time Seen by Provider: 11:15 Subjective/Events-last exam Patient is having severe diarrhea. It is Hemoccult positive. He remains on Lovenox 100 twice daily. He says he is tired but otherwise is without complaint. Review of Systems Pulmonary: Dyspnea Gastrointestinal: Diarrhea Neurological: Weakness Focused Exam Lactate Level 01/30/21 16:35: Lactic Acid Level 1.45 Objective Exam Vital Signs Vital Signs Date Time Temp Pulse Resp B/P (MAP) Pulse Ox O2 Delivery O2 Flow Rate FiO2 02/02/21 12:07 75 20 150/65 (93) 96 Room Air 02/02/21 08:01 36.6 02/01/21 08:12 1.50 Capillary Refill : Less Than 3 Seconds General Appearance: No Apparent Distress, Chronically ill Neck: Normal Inspection Respiratory: Chest Non Tender, Lungs Clear, Normal Breath Sounds, No Accessory Muscle Use, No Respiratory Distress Cardiovascular: Regular Rate, Rhythm, No Gallop Gastrointestinal: Normal Bowel Sounds, Soft Extremity: Pedal Edema Results/Procedures Lab Patient resulted labs reviewed. Assessment/Plan Assessment and Plan Assess & Plan/Chief Complaint Colitis recheck for C. difficile-has a history of ischemic colitis, stools are Hemoccult positive and he remains on Lovenox will Cellulitis improving-day #3 Zosyn Elevated troponin Renal insufficiency appears to be at baseline Mild anemia-recheck in SARAH Goodman MD Feb 02, 2021 12:16
[2021-02-02] MEDS: LOPERAMIDE 2 MG (IMODIUM) TABLET PO PRN ×2 (13:05→16:29)
--- NOTE | 2021-02-02 15:24 | Cardiology Progress Note ---
Cardiology SOAP Progress Note Subjective: no cardiac complaints Objective: I&O/Vital Signs 02/02/21 02/02/21 02/02/21 02/02/21 04:00 07:00 08:00 08:01 Temp 36.0 36.6 Pulse 72 70 71 Resp 18 20 B/P (MAP) 129/60 (83) 124/62 (82) Pulse Ox 93 95 O2 Delivery Room Air Room Air Room Air 02/02/21 12:07 Pulse 75 Resp 20 B/P (MAP) 150/65 (93) Pulse Ox 96 O2 Delivery Room Air 02/02/21 00:00 Intake Total 1380 ml Output Total 400 ml Balance 980 ml Weight (Pounds): 226 Weight (Ounces): 9.6 Weight (Calculated Kilograms): 102.709119 Constitutional: AAO x 3 Respiratory: chest is bilaterally symmetric, lungs clear to auscultation Cardiovascular: regular rate-rhythm, S1 and S2 Gastrointestional: soft Extremities: no lower extremity edema bilateral Neurologic/Psychiatric: no motor/sensory deficits, alert, normal mood/affect, oriented x 3 Results/Procedures: Labs Laboratory Tests 02/01/21 16:20: Glucometer 209H 02/01/21 20:53: Glucometer 156H 02/02/21 04:52: Glucometer 238H 02/02/21 09:14: Stool Occult Blood Immunoassay POSITIVEH 02/02/21 11:05: Glucometer 196H Microbiology 01/30/21 Blood Culture - Preliminary, Resulted No growth A/P: Assessment/Dx: Abdominal discomfort - defer to general surgery. acute on chronic systolic and diastolic CHF CKD 3, probably diabetic nephropathy CAD - reported h/o CABG x 4 vessel - followed by his printed circuit photographer Dr Parada Echo of 04/11/20: LVEF 40-45%, grade 3 wolf dysfunction, biatrial enlargement, PASP 55-60 mmHg PPM - pt states it is followed by Dr. Parada his primary printed circuit photographer H/O R BKA - per pt it was done at the time of CABG - details unknown Open colon resection on 04-03-[address] Henderson d/t ischemic colon DM 2 HTN HLD Macular degeneration H/O tobaccoism - states he has not smoked in years Prob COPD BPH with urinary retention and hematuria - managed per Dr. Sal Plan: - borderline positive troponin - may require nuclear stress testing on wednesday. history of cad. continue secondary prevention measures. - elevated BNP - lasix 40mg. Echocardiogram shows LVH with diastolic dysfunction. EF 45%.elevated PAP. moderate MR - on iv atb for abdominal sepsis. Thank you for your consultation. Please call me if you have any questions. Lanre Eaton MD, FACP, FACC, FSCAI, FHRS, CCDS Interventional Cardiology Cardiac Electrophysiology Vascular Medicine and Endovascular Interventions Focused Exam Lactate Level 01/30/21 16:35: Lactic Acid Level 1.45 Martinez EATON MD Feb 02, 2021 15:24
[2021-02-02 16:00] VITALS: BP 145/66
[2021-02-02] MEDS: FUROSEMIDE 40 MG (LASIX) TAB PO SCH (16:28)
[2021-02-02] MEDS: FLUoxetine HCL 20 MG (PROzac) CAP PO SCH (20:43)
[2021-02-02] MEDS: FINASTERIDE (PROSCAR) 5 MG TAB PO SCH (20:43)
[2021-02-03] VITALS: BP 134/62
[2021-02-03] MEDS: LOPERAMIDE 2 MG (IMODIUM) TABLET PO PRN (00:57)
[2021-02-03] MEDS: PIPERACILLIN/TAZO 4.5 GM/NS 100 ML IV SCH ×6 (05:02→20:54)
[2021-02-03] MEDS: CATHETER FLUSH 10 ML SYR IV SCH ×3 (05:07→22:03)
[2021-02-03 06:00] LABS: BASOPHILS # (AUTO) 0.1 10^3/uL (0.0-0.1); BASOPHILS % (AUTO) 1 % (0-10); EOSINOPHILS # (AUTO) 0.4 10^3/uL (0.0-0.3); EOSINOPHILS % (AUTO) 7 % (0-10); HEMATOCRIT 35 % (40-54); HEMOGLOBIN 11.1 g/dL (13.3-17.7); LYMPHOCYTES # (AUTO) 1.7 10^3/uL (1.0-4.0); LYMPHOCYTES % (AUTO) 32 % (12-44); MEAN CORPUSCULAR HEMOGLOBIN 29 pg (25-34); MEAN CORPUSCULAR HGB CONC 31 g/dL (32-36); MEAN CORPUSCULAR VOLUME 93 fL (80-99); MEAN PLATELET VOLUME 10.7 fL (9.0-12.2); MONOCYTES # (AUTO) 0.5 10^3/uL (0.0-1.0); MONOCYTES % (AUTO) 9 % (0-12); NEUTROPHILS # (AUTO) 2.7 10^3/uL (1.8-7.8); NEUTROPHILS % (AUTO) 51 % (42-75); PLATELET COUNT 196 10^3/uL (130-400); WHITE BLOOD COUNT 5.2 10^3/uL (4.3-11.0)
[2021-02-03 06:12] LABS: ALBUMIN 3.6 GM/DL (3.2-4.5); POTASSIUM 3.5 MMOL/L (3.6-5.0)
[2021-02-03 06:13] LABS: CALCIUM 8.6 MG/DL (8.5-10.1)
[2021-02-03 06:15] LABS: TOTAL PROTEIN 6.6 GM/DL (6.4-8.2)
[2021-02-03 06:16] LABS: BILIRUBIN,TOTAL 0.6 MG/DL (0.1-1.0)
[2021-02-03 06:18] LABS: CREATININE SERUM 1.81 MG/DL (0.60-1.30)
[2021-02-03] MEDS: inSUlin ASPART (NovoLOG) 1 UNIT/0.01 ML (CHARGE PER UNIT) SC SCH ×4 (06:34→20:55)
[2021-02-03 08:00] VITALS: BP 124/57
--- NOTE | 2021-02-03 09:02 | Consultation - Surgery ---
BARBARA STEWARD MED STUDENT 02/03/21 0902: History of Present Illness History of Present Illness Patient Consulted On(hebert/time) 02/03/21 08:57 Date Seen by Provider: Feb 03, 2021 Time Seen by Provider: 08:47 Reason for Visit: Surgical Consult History of Present Illness Pt is continuing to be monitored for acute colitis and acute cellulitis. Allergies and Home Medications Allergies Coded Allergies: No Known Drug Allergies (Verified , 10/15/09) Home Medications Amoxicillin/Potassium Clav 1 Each Tablet, 1 EACH PO BID Prescribed by: AGATHA PAZ on 02/04/21 1007 Ascorbic Acid 500 Mg Capsule, 500 MG PO DAILY, (Reported) Aspirin 81 Mg Tablet.dr, 81 MG PO DAILY, (Reported) Atenolol 25 Mg Tablet, 25 MG PO HS, (Reported) Calcium Carbonate 600 Mg Tablet, 600 MG PO DAILY, (Reported) Finasteride 5 Mg Tablet, 5 MG PO HS, (Reported) Fluoxetine HCl 20 Mg Capsule, 20 MG PO HS, (Reported) Furosemide 40 Mg Tablet, 40 MG PO HS, (Reported) Gabapentin 300 Mg Capsule, 300 MG PO BID, (Reported) Glucagon,Human Recombinant 1 Mg/Kit Soln, 1 MG IJ UD PRN for HYPOGLYCEMIA, (Reported) Hydrocodone Bit/Acetaminophen 1 Tab Tab, 1 EA PO Q4H PRN for PAIN-MODERATE (5-7) Prescribed by: AGATHA PAZ on 02/04/21 1008 Insulin NPH Hum/Reg Insulin Hm 100 Unit/1 Ml Vial, 10 UNIT SQ BIDPC, (Reported) Lorazepam 0.5 Mg Tablet, 0.5 MG PO BID PRN for ANXIETY, (Reported) Multivit-Min/FA/Lycopene/Lut 1 Each Tablet, 1 TAB PO DAILY, (Reported) Sertraline HCl 50 Mg Tablet, 50 MG PO HS, (Reported) Tamsulosin HCl 0.4 Mg Cap, 0.4 MG PO BID, (Reported) Past Kkncyyh-Itflfs-Eblinw Hx Patient Social History Number of Drinks Today: GG Smoking Status: Former Smoker Type Used: Cigars 2nd Hand Smoke Exposure: Yes Recent Hopitalizations: Yes Alcohol Use?: No Have you traveled recently?: No Immunizations Up To Date Tetanus Booster (TDap): Unknown Date of Pneumonia Vaccine: Sep 29, 2012 Seasonal Allergies Seasonal Allergies: No Surgeries History of Surgeries: Yes (CABG; RIGHT BKA; RIGHT LEG ARTERY BYPASS; PACEMAKER X 2) Surgeries: Abdominal, Amputation, Bowel Surgery, Cardiac, CABG, Eye Surgery, Joint Replacement, Orthopedic, Pacemaker, Vascular Surgery Respiratory History of Respiratory Disorde: Yes (COVID) Respiratory Disorders: Pneumonia Cardiovascular History of Cardiac Disorders: Yes (CABG; PACEMAKER) Cardiac Disorders: Coronary Artery Disease, High Cholesterol, Hypertension, Peripheral Vascular Neurological History of Neurological Disord: Yes Neurological Disorders: Headaches /Migraines, Neuropathy Reproductive System Hx Reproductive Disorders: No Genitourinary History of Genitourinary Disor: Yes Genitourinary Disorders: Prostate Problems, Renal Failure Gastrointestinal History of Gastrointestinal Di: Yes (iscemic bowel) Gastrointestinal Disorders: Chronic Constipation Musculoskeletal History of Musculoskeletal Dis: Yes (RIGHT BKA) Musculoskeletal Disorders: Amputee Endocrine History of Endocrine Disorders: Yes Endocrine Disorders: Diabetes, Insulin dep HEENT History of HEENT Disorders: Yes HEENT Disorders: Cataract Loss of Vision: Denies Hearing Impairment: Hard of Hearing Cancer History of Cancer: No Psychosocial History of Psychiatric Problem: Yes Behavioral Health Disorders: Depression Integumentary History of Skin or Integumenta: No Blood Transfusions History of Blood Disorders: No Adverse Reaction to a Blood Tr: No Reviewed Nursing Assessment Reviewed/Agree w Nursing PMH: Yes Family Medical History Significant Family History: No Pertinent Family Hx Family Medial History: Diabetes mellitus GRANDMOTHER FH: leukemia G8 BROTHER Testicular cancer 19 FATHER Physical Exam-General Problems Physical Exam Vital Signs Vital Signs - First Documented 01/30/21 01/30/21 16:15 20:45 Temp 37.9 Pulse 69 Resp 16 B/P (MAP) 112/59 (76) Pulse Ox 91 O2 Delivery Room Air O2 Flow Rate 2.00 Capillary Refill : Less Than 3 Seconds Data Review Labs Laboratory Tests 02/02/21 09:14: Stool Occult Blood Immunoassay POSITIVEH 02/02/21 11:05: Glucometer 196H 02/02/21 15:52: Glucometer 306H 02/02/21 21:00: Glucometer 263H 02/03/21 05:41: White Blood Count 5.2, Red Blood Count 3.78L, Hemoglobin 11.1L, Hematocrit 35L, Mean Corpuscular Volume 93, Mean Corpuscular Hemoglobin 29, Mean Corpuscular Hemoglobin Concent 31L, Red Cell Distribution Width 13.2, Platelet Count 196, Mean Platelet Volume 10.7, Immature Granulocyte % (Auto) 0, Neutrophils (%) (Auto) 51, Lymphocytes (%) (Auto) 32, Monocytes (%) (Auto) 9, Eosinophils (%) (Auto) 7, Basophils (%) (Auto) 1, Neutrophils # (Auto) 2.7, Lymphocytes # (Auto) 1.7, Monocytes # (Auto) 0.5, Eosinophils # (Auto) 0.4H, Basophils # (Auto) 0.1, Immature Granulocyte # (Auto) 0.0, Sodium Level 141, Potassium Level 3.5L, Chloride Level 104, Carbon Dioxide Level 26, Anion Gap 11, Blood Urea Nitrogen 21H, Creatinine 1.81H, Estimat Glomerular Filtration Rate 36, BUN/Creatinine Ratio 12, Glucose Level 204H, Calcium Level 8.6, Corrected Calcium 8.9, Total Bilirubin 0.6, Aspartate Amino Transf (AST/SGOT) 22, Alanine Aminotransferase (ALT/SGPT) 20, Alkaline Phosphatase 107, Total Protein 6.6, Albumin 3.6 02/03/21 05:51: Glucometer 210H Microbiology 02/02/21 C. difficile GDH Antigen & Toxins - Final, Complete 01/30/21 Blood Culture - Preliminary, Resulted No growth Assessment/Plan Assessment/Plan Assessment/Plan An 85 year old male with acute colitis, lower abdominal pain, Pleural effusion b/l, Uncontrolled diabetes, Elevated Troponin, Hx of coronary heart disease, Hx of ischemic bowel disease, Atherosclerotic disease VSS WBC - WNL occult positive stool, Hgb stable at 10.1 - will continue to monitor Tolerating dys3 diet Continue IV abx and fluids Pain and nausea meds as needed Will continue with conservative medical management 02/04/21 1419: Allergies and Home Medications Allergies Coded Allergies: No Known Drug Allergies (Verified , 10/15/09) Home Medications Amoxicillin/Potassium Clav 1 Each Tablet, 1 EACH PO BID Prescribed by: AGATHA PAZ on 02/04/21 1007 Ascorbic Acid 500 Mg Capsule, 500 MG PO DAILY, (Reported) Aspirin 81 Mg Tablet.dr, 81 MG PO DAILY, (Reported) Atenolol 25 Mg Tablet, 25 MG PO HS, (Reported) Calcium Carbonate 600 Mg Tablet, 600 MG PO DAILY, (Reported) Finasteride 5 Mg Tablet, 5 MG PO HS, (Reported) Fluoxetine HCl 20 Mg Capsule, 20 MG PO HS, (Reported) Furosemide 40 Mg Tablet, 40 MG PO HS, (Reported) Gabapentin 300 Mg Capsule, 300 MG PO BID, (Reported) Glucagon,Human Recombinant 1 Mg/Kit Soln, 1 MG IJ UD PRN for HYPOGLYCEMIA, (Reported) Hydrocodone Bit/Acetaminophen 1 Tab Tab, 1 EA PO Q4H PRN for PAIN-MODERATE (5-7) Prescribed by: AGATHA PAZ on 02/04/21 1008 Insulin NPH Hum/Reg Insulin Hm 100 Unit/1 Ml Vial, 10 UNIT SQ BIDPC, (Reported) Lorazepam 0.5 Mg Tablet, 0.5 MG PO BID PRN for ANXIETY, (Reported) Multivit-Min/FA/Lycopene/Lut 1 Each Tablet, 1 TAB PO DAILY, (Reported) Sertraline HCl 50 Mg Tablet, 50 MG PO HS, (Reported) Tamsulosin HCl 0.4 Mg Cap, 0.4 MG PO BID, (Reported) Past Fdkbkxg-Iyjxqa-Pisses Hx Family Medical History Family Medial History: Diabetes mellitus GRANDMOTHER FH: leukemia G8 BROTHER Testicular cancer 19 FATHER BARBARA STEWARD MED STUDENT Feb 03, 2021 09:02 GIOVANNA RAMIREZ Feb 04, 2021 14:19
--- NOTE | 2021-02-03 09:11 | Progress Note - Surgery ---
Subjective Date Seen by a Provider: Feb 03, 2021 Time Seen by a Provider: 08:47 Subjective/Events-last exam Pt states that he is continuing to have diarrhea regularly, has no abdominal pain or complaints. Reports he is not sleeping well, but is able to eat meals and drink fluids without pain or complications. He is sitting in his chair comfortably and conversing without exertion or dyspnea. Review of Systems General: No Chills, No Night Sweats; Fatigue HEENT: No Dysphasia, No Sore Throat Pulmonary: No Dyspnea, No Cough Cardiovascular: Edema (Left leg, right leg post amputation. ); No: Chest Pain, Palpitations Gastrointestinal: Diarrhea; No: Nausea, Vomiting, Abdominal Pain, Constipation Genitourinary: No Dysuria, No Incontinence, No Hematuria Musculoskeletal: foot pain (Pain with swelling) Neurological: Numbness (diabetic neuropathy); No: Weakness Focused Exam Respiratory: Chest Non Tender, Lungs Clear, Normal Breath Sounds, No Accessory Muscle Use, No Respiratory Distress Cardiovascular: Regular Rate, Rhythm; No No Edema; Normal Peripheral Pulses Capillary Refill: Less Than 3 Seconds Peripheral Pulses: 0 Dorsalis Pedis (R) (Post amputation); 2+ Left Dors-Pedis (L), 2+ Radial Pulses (R), 2+ Radial Pulses (L) Skin: normal color, ecchymosis; No jaundice, No rash, No ulcerations; other (Dark lesion in left ear concerning for BCC) Objective Exam Vital Signs Date Time Temp Pulse Resp B/P (MAP) Pulse Ox O2 Delivery O2 Flow Rate FiO2 02/03/21 08:00 36.6 70 18 124/57 (79) 95 Room Air 02/03/21 07:56 Room Air 02/03/21 00:00 36.2 70 18 134/62 (86) 94 Room Air 02/02/21 23:14 96 Room Air 02/02/21 20:44 Room Air 02/02/21 16:00 36.4 70 20 145/66 (92) 96 Room Air 02/02/21 12:07 75 20 150/65 (93) 96 Room Air I & O 02/03/21 07:00 Intake Total 1860 ml Output Total 530 ml Balance 1330 ml Capillary Refill : Less Than 3 Seconds General Appearance: No Apparent Distress, Chronically ill HEENT: PERRL/EOMI, Normal ENT Inspection Neck: Normal Inspection Respiratory: Chest Non Tender, Lungs Clear, Normal Breath Sounds, No Accessory Muscle Use, No Respiratory Distress Cardiovascular: Regular Rate, Rhythm, No Gallop Peripheral Pulses: 2+ Left Dors-Pedis (L), 2+ Radial Pulses (R), 2+ Radial Pulses (L) Gastrointestinal: normal bowel sounds, non tender, soft; No distended, No guarding, No tenderness Extremity: Normal Capillary Refill, Pedal Edema Neurologic/Psychiatric: Alert, Oriented x3 Skin: Normal Color, Warm/Dry Lymphatic: No Adenopathy Results Lab Laboratory Tests 02/02/21 09:14: Stool Occult Blood Immunoassay POSITIVEH 02/02/21 11:05: Glucometer 196H 02/02/21 15:52: Glucometer 306H 02/02/21 21:00: Glucometer 263H 02/03/21 05:41: White Blood Count 5.2, Red Blood Count 3.78L, Hemoglobin 11.1L, Hematocrit 35L, Mean Corpuscular Volume 93, Mean Corpuscular Hemoglobin 29, Mean Corpuscular Hemoglobin Concent 31L, Red Cell Distribution Width 13.2, Platelet Count 196, Mean Platelet Volume 10.7, Immature Granulocyte % (Auto) 0, Neutrophils (%) (Auto) 51, Lymphocytes (%) (Auto) 32, Monocytes (%) (Auto) 9, Eosinophils (%) (Auto) 7, Basophils (%) (Auto) 1, Neutrophils # (Auto) 2.7, Lymphocytes # (Auto) 1.7, Monocytes # (Auto) 0.5, Eosinophils # (Auto) 0.4H, Basophils # (Auto) 0.1, Immature Granulocyte # (Auto) 0.0, Sodium Level 141, Potassium Level 3.5L, Chloride Level 104, Carbon Dioxide Level 26, Anion Gap 11, Blood Urea Nitrogen 21H, Creatinine 1.81H, Estimat Glomerular Filtration Rate 36, BUN/Creatinine Ratio 12, Glucose Level 204H, Calcium Level 8.6, Corrected Calcium 8.9, Total Bilirubin 0.6, Aspartate Amino Transf (AST/SGOT) 22, Alanine Aminotransferase (ALT/SGPT) 20, Alkaline Phosphatase 107, Total Protein 6.6, Albumin 3.6 02/03/21 05:51: Glucometer 210H Microbiology 02/02/21 C. difficile GDH Antigen & Toxins - Final, Complete 01/30/21 Blood Culture - Preliminary, Resulted No growth Assessment/Plan Assessment/Plan Assessment/Plan ASSESSMENT Acute colitis Uncontrolled diabetes, Elevated Troponin, Hx of coronary heart disease, Hx of ischemic bowel disease, Atherosclerotic disease WBC - WNL, unchanged from 2 days ago. Resolution of abdominal cellulitis. Negative C-diff toxin assay. Continues to have "liquid" bowel movements 6+ times per day. Occult positive stool, Hgb improved to 11.1 from 10.1 two days ago. Tolerating liquid diet w/o postprandial pain or pain medication. PLAN Continue IV abx and fluids Pain and nausea meds as needed Will continue with conservative medical management BARBARA STEWARD MED STUDENT Feb 03, 2021 09:11
--- NOTE | 2021-02-03 10:02 | Progress Note - Cardiology ---
Cardiology SOAP Progress Note Subjective: Sitting up in w/c at the bedside Denies any c/o CP, palpitations States he has chronic LLE swelling which improves with elevation Feels abd pain is better, but unable to keep oral intake "down" Objective: I&O/Vital Signs Weight (Pounds): 226 Weight (Ounces): 9.6 Weight (Calculated Kilograms): 102.580990 Constitutional: AAO x 3 Respiratory: chest is bilaterally symmetric, lungs clear to auscultation Cardiovascular: regular rate-rhythm, S1 and S2 Gastrointestional: soft, round, audible bowel sounds Extremities: other (R AKA with prosthesis in place; pitting LLE swelling from knee to foot) Neurologic/Psychiatric: oriented x 3, grossly intact (moves all extremities) Skin: normal color, ecchymosis, other (Dark lesion in left ear concerning for BCC; dressing to LLE, D&I) Results/Procedures: Labs Microbiology 02/02/21 C. 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 Parada his primary used car lot porter H/O R BKA - per pt it was done at the time of CABG - details unknown Open colon resection on 04-03-[address] Henderson d/t ischemic colon DM 2 HTN HLD Macular degeneration H/O tobaccoism - states he has not smoked in years Prob COPD BPH with urinary retention and hematuria - managed per Dr. Sal Plan: Continue current regimen Management of abd discomfort is with medical/surgical services FRANCESCO hose to LLE d/t swelling Somewhat worsening renal function Monitor lab closely Replace electrolytes as indicated TRACIE NAIK Feb 03, 2021 10:02
--- NOTE | 2021-02-03 10:36 | Progress Note - Hospitalist ---
Subjective HPI/CC On Admission Date Seen by Provider: Feb 03, 2021 Time Seen by Provider: 09:30 Subjective/Events-last exam Diarrhea continues Overall doing very well Denies any significant new pain Heme positive stools Dr. Henderson consulted Still cant go home with as much diarrhea as he is having Review of Systems General: Fatigue, Malaise Gastrointestinal: Diarrhea Neurological: Weakness Objective Exam Vital Signs Vital Signs Date Time Temp Pulse Resp B/P (MAP) Pulse Ox O2 Delivery O2 Flow Rate FiO2 02/04/21 00:05 36.6 71 20 133/75 (94) 94 Room Air 02/01/21 08:12 1.50 Capillary Refill : Less Than 3 Seconds General Appearance: No Apparent Distress, WD/WN, Chronically ill, Obese Respiratory: Chest Non Tender, Lungs Clear, Normal Breath Sounds, No Accessory Muscle Use, No Respiratory Distress Cardiovascular: Regular Rate, Rhythm, No Edema, No Gallop, No JVD, No Murmur, Normal Peripheral Pulses Neurologic/Psychiatric: Alert, Oriented x3, No Motor/Sensory Deficits, Normal Mood/Affect Results/Procedures Lab Laboratory Tests 02/03/21 05:41 Patient resulted labs reviewed. Assessment/Plan Assessment and Plan Assess & Plan/Chief Complaint Assessment: Diarrhea Abdominal wall cellulitis DM CAD PVD Right BKA Plan: Monitor diarrhea Appreciate Dr Henderson consult AGATHA PAZ DO Feb 03, 2021 10:36
[2021-02-03] MEDS: GABAPENTIN 300 MG (NEURONTIN) CAP PO SCH ×2 (11:14→20:55)
[2021-02-03] MEDS: ASPIRIN E.C. 81 MG (ECOTRIN) TAB PO SCH (11:14)
[2021-02-03] MEDS: TAMSULOSIN 0.4 MG (FLOMAX) CAP PO SCH ×2 (11:14→20:55)
[2021-02-03] MEDS: ENOXAPARIN 100 MG/1 ML (LOVENOX) SYR SC SCH ×2 (11:14→20:55)
[2021-02-03 16:01] VITALS: BP 151/68
--- NOTE | 2021-02-03 16:20 | Progress Note - Cardiology ---
Cardiology SOAP Progress Note Subjective: No cp or palp or syncope or shortness of breath Gen malaise and weakness No swelling No n/v/d Objective: I&O/Vital Signs 02/03/21 02/03/21 02/03/21 07:56 08:00 16:01 Temp 36.6 36.8 Pulse 70 69 Resp 18 18 B/P (MAP) 124/57 (79) 151/68 (95) Pulse Ox 95 95 O2 Delivery Room Air Room Air Room Air 02/03/21 00:00 Intake Total 1660 ml Output Total 300 ml Balance 1360 ml Weight (Pounds): 226 Weight (Ounces): 9.6 Weight (Calculated Kilograms): 102.158119 Constitutional: AAO x 3 Respiratory: chest is bilaterally symmetric, lungs clear to auscultation Cardiovascular: regular rate-rhythm, S1 and S2 Gastrointestional: soft, round, audible bowel sounds Extremities: other (R AKA with prosthesis in place; pitting LLE swelling from knee to foot) Neurologic/Psychiatric: oriented x 3, grossly intact (moves all extremities) Skin: normal color, ecchymosis; No jaundice, No rash, No ulcerations; other (Dark lesion in left ear concerning for BCC) Results/Procedures: Labs Laboratory Tests 02/02/21 21:00: Glucometer 263H 02/03/21 05:41: White Blood Count 5.2, Red Blood Count 3.78L, Hemoglobin 11.1L, Hematocrit 35L, Mean Corpuscular Volume 93, Mean Corpuscular Hemoglobin 29, Mean Corpuscular Hemoglobin Concent 31L, Red Cell Distribution Width 13.2, Platelet Count 196, Mean Platelet Volume 10.7, Immature Granulocyte % (Auto) 0, Neutrophils (%) (Auto) 51, Lymphocytes (%) (Auto) 32, Monocytes (%) (Auto) 9, Eosinophils (%) (Auto) 7, Basophils (%) (Auto) 1, Neutrophils # (Auto) 2.7, Lymphocytes # (Auto) 1.7, Monocytes # (Auto) 0.5, Eosinophils # (Auto) 0.4H, Basophils # (Auto) 0.1, Immature Granulocyte # (Auto) 0.0, Sodium Level 141, Potassium Level 3.5L, Chloride Level 104, Carbon Dioxide Level 26, Anion Gap 11, Blood Urea Nitrogen 21H, Creatinine 1.81H, Estimat Glomerular Filtration Rate 36, BUN/Creatinine Ratio 12, Glucose Level 204H, Calcium Level 8.6, Corrected Calcium 8.9, Total Bilirubin 0.6, Aspartate Amino Transf (AST/SGOT) 22, Alanine Aminotransferase (ALT/SGPT) 20, Alkaline Phosphatase 107, Total Protein 6.6, Albumin 3.6 02/03/21 05:51: Glucometer 210H 02/03/21 11:12: Glucometer 212H 02/03/21 15:23: Glucometer 235H Microbiology 02/02/21 C. 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 Parada his primary geoscience laboratory technician H/O R BKA - per pt it was done at the time of CABG - details unknown Open colon resection on 04-03-[address] Henderson d/t ischemic colon DM 2 HTN HLD Macular degeneration H/O tobaccoism - states he has not smoked in years Prob COPD BPH with urinary retention and hematuria - managed per Dr. Sal Plan: Continue current regimen Management of abd discomfort is with medical/surgical services FRANCESCO hose to LLE d/t swelling Somewhat worsening renal function Monitor lab closely Replace electrolytes as indicated JOSIAH MORENO MD FACP FACC CCDS Feb 03, 2021 16:20
[2021-02-03] MEDS: FUROSEMIDE 40 MG (LASIX) TAB PO SCH (17:21)
--- NOTE | 2021-02-03 20:29 | Progress Note - Surgery ---
Subjective Date Seen by a Provider: Feb 03, 2021 Time Seen by a Provider: 17:00 Subjective/Events-last exam Patient still with loose stools. No blood visualized. Tolerating diet. Denies any abdominal pain. Denies n/v fever sweats chills shortness of breath or chest pain. Objective Exam Vital Signs Date Time Temp Pulse Resp B/P (MAP) Pulse Ox O2 Delivery O2 Flow Rate FiO2 02/03/21 16:01 36.8 69 18 151/68 (95) 95 Room Air 02/03/21 08:00 36.6 70 18 124/57 (79) 95 Room Air 02/03/21 07:56 Room Air 02/03/21 00:00 36.2 70 18 134/62 (86) 94 Room Air 02/02/21 23:14 96 Room Air 02/02/21 20:44 Room Air I & O 02/03/21 07:00 Intake Total 1860 ml Output Total 530 ml Balance 1330 ml Capillary Refill : Less Than 3 Seconds General Appearance: No Apparent Distress, Chronically ill HEENT: PERRL/EOMI, Normal ENT Inspection Neck: Normal Inspection Respiratory: Chest Non Tender, No Accessory Muscle Use, No Respiratory Distress Cardiovascular: Regular Rate, Rhythm, No JVD Peripheral Pulses: 0 Dorsalis Pedis (R) (Post amputation); 2+ Left Dors-Pedis (L), 2+ Radial Pulses (R), 2+ Radial Pulses (L) Gastrointestinal: non tender, soft; No distended, No guarding, No rebound, No tenderness Extremity: Normal Capillary Refill, Pedal Edema, Other (right bka) Neurologic/Psychiatric: Alert, Oriented x3, Normal Mood/Affect Skin: Normal Color, Warm/Dry Lymphatic: No Adenopathy Results Lab Laboratory Tests 02/02/21 21:00: Glucometer 263H 02/03/21 05:41: White Blood Count 5.2, Red Blood Count 3.78L, Hemoglobin 11.1L, Hematocrit 35L, Mean Corpuscular Volume 93, Mean Corpuscular Hemoglobin 29, Mean Corpuscular Hemoglobin Concent 31L, Red Cell Distribution Width 13.2, Platelet Count 196, Mean Platelet Volume 10.7, Immature Granulocyte % (Auto) 0, Neutrophils (%) (Auto) 51, Lymphocytes (%) (Auto) 32, Monocytes (%) (Auto) 9, Eosinophils (%) (Auto) 7, Basophils (%) (Auto) 1, Neutrophils # (Auto) 2.7, Lymphocytes # (Auto) 1.7, Monocytes # (Auto) 0.5, Eosinophils # (Auto) 0.4H, Basophils # (Auto) 0.1, Immature Granulocyte # (Auto) 0.0, Sodium Level 141, Potassium Level 3.5L, Chloride Level 104, Carbon Dioxide Level 26, Anion Gap 11, Blood Urea Nitrogen 21H, Creatinine 1.81H, Estimat Glomerular Filtration Rate 36, BUN/Creatinine Ratio 12, Glucose Level 204H, Calcium Level 8.6, Corrected Calcium 8.9, Total Bilirubin 0.6, Aspartate Amino Transf (AST/SGOT) 22, Alanine Aminotransferase (ALT/SGPT) 20, Alkaline Phosphatase 107, Total Protein 6.6, Albumin 3.6 02/03/21 05:51: Glucometer 210H 02/03/21 11:12: Glucometer 212H 02/03/21 15:23: Glucometer 235H 02/03/21 20:03: Glucometer 322H Microbiology 02/02/21 C. difficile GDH Antigen & Toxins - Final, Complete 01/30/21 Blood Culture - Preliminary, Resulted No growth Assessment/Plan Assessment/Plan Assessment/Plan Acute colitis Uncontrolled diabetes, Elevated Troponin, Hx of coronary heart disease, Hx of ischemic bowel disease, Atherosclerotic disease Resolution of abdominal cellulitis. Diarrhea-Negative C-diff toxin assay. Occult positive stool likely due to colitis PLAN Continue IV abx and fluids Diet as tolerates Pain and nausea meds as needed Will continue with conservative medical management NEHAL GREENBERG DO Feb 03, 2021 20:29
[2021-02-03] MEDS ORDERED: HYDROcodone/APAP 5 MG/325 MG (LORTAB) TAB PO PRN (20:30)
[2021-02-03] MEDS: FINASTERIDE (PROSCAR) 5 MG TAB PO SCH (20:55)
[2021-02-03] MEDS: FLUoxetine HCL 20 MG (PROzac) CAP PO SCH (20:55)
[2021-02-04 00:05] VITALS: BP 133/75
--- NOTE | 2021-02-04 05:17 | Progress Note - Hospitalist ---
Subjective HPI/CC On Admission Date Seen by Provider: Feb 04, 2021 Objective Exam Vital Signs Vital Signs Date Time Temp Pulse Resp B/P (MAP) Pulse Ox O2 Delivery O2 Flow Rate FiO2 02/04/21 08:49 36.4 70 20 117/58 (77) 93 Room Air 02/01/21 08:12 1.50 Capillary Refill : Less Than 3 Seconds Results/Procedures Lab Laboratory Tests 02/04/21 05:54 Patient resulted labs reviewed. Assessment/Plan Assessment and Plan Assess & Plan/Chief Complaint Assessment: Diarrhea Abdominal wall cellulitis DM CAD PVD Right BKA Plan: Monitor diarrhea Appreciate Dr Henderson consult AGATHA PAZ DO Feb 04, 2021 05:17
[2021-02-04] MEDS: PIPERACILLIN/TAZO 4.5 GM/NS 100 ML IV SCH ×4 (05:38→12:50)
[2021-02-04] MEDS: CATHETER FLUSH 10 ML SYR IV SCH (05:39)
[2021-02-04] MEDS: inSUlin ASPART (NovoLOG) 1 UNIT/0.01 ML (CHARGE PER UNIT) SC SCH ×2 (05:59→11:50)
[2021-02-04 06:25] LABS: MEAN PLATELET VOLUME 10.2 fL (9.0-12.2); WHITE BLOOD COUNT 4.5 10^3/uL (4.3-11.0)
[2021-02-04 06:39] LABS: POTASSIUM 3.2 MMOL/L (3.6-5.0)
[2021-02-04 06:40] LABS: CALCIUM 8.4 MG/DL (8.5-10.1)
[2021-02-04 06:44] LABS: CREATININE SERUM 1.56 MG/DL (0.60-1.30)
--- NOTE | 2021-02-04 07:55 | Progress Note - Surgery ---
NICHELLEEVELYNECLAUDIA MED STUDENT 02/04/21 0755: Subjective Date Seen by a Provider: Feb 04, 2021 Time Seen by a Provider: 07:25 Subjective/Events-last exam Pt was resting comfortably this morning. States that he has been doing well the last 24 hours, that food doesn't upset his stomach like it did when he first arrived, and that his diarrhea is improving. Says that he doesn't have bowel movements as often or as liquid. Denies any abdominal pain or discomfort. Focused Exam Respiratory: Chest Non Tender, Lungs Clear, Normal Breath Sounds, No Accessory Muscle Use, No Respiratory Distress Cardiovascular: Regular Rate, Rhythm, No Gallop, No JVD, No Murmur, Normal Peripheral Pulses Peripheral Pulses: 0 Dorsalis Pedis (R) (Post below the knee amputation); 2+ Left Dors-Pedis (L), 2+ Radial Pulses (R), 2+ Radial Pulses (L) Skin: normal color; No jaundice, No rash Objective Exam Vital Signs Date Time Temp Pulse Resp B/P (MAP) Pulse Ox O2 Delivery O2 Flow Rate FiO2 02/04/21 00:05 36.6 71 20 133/75 (94) 94 Room Air 02/03/21 23:45 93 Room Air 02/03/21 20:54 Room Air 02/03/21 16:01 36.8 69 18 151/68 (95) 95 Room Air 02/03/21 08:00 36.6 70 18 124/57 (79) 95 Room Air 02/03/21 07:56 Room Air I & O 02/04/21 07:00 Intake Total 1615 ml Output Total 1200 ml Balance 415 ml Capillary Refill : Less Than 3 Seconds General Appearance: No Apparent Distress, WD/WN, Chronically ill, Obese HEENT: PERRL/EOMI, Normal ENT Inspection, Pharynx Normal; No Scleral Icterus (L), No Scleral Icterus (R) Neck: Normal Inspection; No Lymphadenopathy (L), No Lymphadenopathy (R) Respiratory: Chest Non Tender, Lungs Clear, Normal Breath Sounds, No Accessory Muscle Use, No Respiratory Distress Cardiovascular: Regular Rate, Rhythm, No Gallop, No JVD, No Murmur, Normal Peripheral Pulses Peripheral Pulses: 0 Dorsalis Pedis (R) (Post amputation); 2+ Left Dors-Pedis (L), 2+ Radial Pulses (R), 2+ Radial Pulses (L) Gastrointestinal: non tender, soft; No distended, No guarding, No rebound, No tenderness Extremity: Normal Capillary Refill, Pedal Edema, Other (right bka) Neurologic/Psychiatric: Alert, Oriented x3, No Motor/Sensory Deficits, Normal Mood/Affect Skin: Normal Color, Warm/Dry Lymphatic: No Adenopathy Results Lab Laboratory Tests 02/03/21 11:12: Glucometer 212H 02/03/21 15:23: Glucometer 235H 02/03/21 20:03: Glucometer 322H 02/04/21 05:52: Glucometer 197H 02/04/21 05:54: White Blood Count 4.5, Red Blood Count 3.77L, Hemoglobin 11.0L, Hematocrit 35L, Mean Corpuscular Volume 93, Mean Corpuscular Hemoglobin 29, Mean Corpuscular Hemoglobin Concent 31L, Red Cell Distribution Width 13.2, Platelet Count 194, Mean Platelet Volume 10.2, Sodium Level 140, Potassium Level 3.2L, Chloride Level 103, Carbon Dioxide Level 27, Anion Gap 10, Blood Urea Nitrogen 16, C reatinine 1.56H, Estimat Glomerular Filtration Rate 42, BUN/Creatinine Ratio 10, Glucose Level 199H, Calcium Level 8.4L Microbiology 02/02/21 C. difficile GDH Antigen & Toxins - Final, Complete 01/30/21 Blood Culture - Preliminary, Resulted No growth Assessment/Plan Assessment/Plan Assessment/Plan ASSESSMENT Acute colitis Uncontrolled diabetes, Elevated Troponin, Hx of coronary heart disease, Hx of ischemic bowel disease, Atherosclerotic disease Diarrhea-Negative C-diff toxin assay. Occult positive stool likely due to colitis PLAN Continue IV abx and fluids Diet as tolerates Pain and nausea meds as needed Will continue with conservative medical management NEHAL HENDERSON DO 02/04/21 1441: Subjective Subjective/Events-last exam Patient states he is doing well. He is not having any abdominal pain. The diarrhea continues to improve. He is having some more solid stools. Patient denies any nausea vomiting fever sweats chills shortness of breath or chest pain at this time. Patient is tolerating diet. Objective Exam General Appearance: No Apparent Distress, Obese HEENT: PERRL/EOMI, Normal ENT Inspection Neck: Normal Inspection, Non Tender Respiratory: Chest Non Tender, No Accessory Muscle Use, No Respiratory Distress Cardiovascular: Regular Rate, Rhythm, No JVD Gastrointestinal: non tender, soft Extremity: Pedal Edema, Other (right bka) Neurologic/Psychiatric: Alert, Oriented x3, No Motor/Sensory Deficits, Normal Mood/Affect Skin: Normal Color, Warm/Dry Lymphatic: No Adenopathy Assessment/Plan Assessment/Plan Assessment/Plan ASSESSMENT Acute colitis Uncontrolled diabetes, Elevated Troponin, Hx of coronary heart disease, Hx of ischemic bowel disease, Atherosclerotic disease Diarrhea-Negative C-diff toxin assay. Occult positive stool likely due to colitis PLAN Diet as tolerates Convert to oral antibiotics Will continue with conservative medical management, likely home today Supervisory-Addendum Brief Verification & Attestation Participated in pt care: history, MDM, physical Personally performed: exam, history, MDM, supervision of care Care discussed with: Medical Student Procedures: n/a Results interpretation: Verified all documentation Verification and Attestation of Medical Student E/M Service A medical student performed and documented this service in my presence. I reviewed and verified all information documented by the medical student and made modifications to such information, when appropriate. I personally performed the physical exam and medical decision making. Nehal Henderson, Feb 04, 2021,14:41 BARBARA STEWARD MED STUDENT Feb 04, 2021 07:55 NEHAL HENDERSON DO Feb 04, 2021 14:41
[2021-02-04 08:49] VITALS: BP 117/58
[2021-02-04] MEDS: ASPIRIN E.C. 81 MG (ECOTRIN) TAB PO SCH (09:13)
[2021-02-04] MEDS: GABAPENTIN 300 MG (NEURONTIN) CAP PO SCH (09:13)
[2021-02-04] MEDS: TAMSULOSIN 0.4 MG (FLOMAX) CAP PO SCH (09:13)
[2021-02-04] MEDS: ENOXAPARIN 100 MG/1 ML (LOVENOX) SYR SC SCH (09:14)
[2021-02-04] MEDS ORDERED: AMOX-358 PO (10:07)
[2021-02-04] MEDS ORDERED: ACHD5005 PO (10:07)
--- NOTE | 2021-02-04 10:09 | D/C HH Face to Face Order ---
D/C Face to Face Orders Reconcile Patient Problems Problems Reviewed?: Yes Instructions for Patient Home Health Patient Instructions/FollowUp: [facility] 1 week Physician to follow Patient: [facility] Discharge Diet for Home: Soft Diet Patient Problems: Colitis Patient Data-Allergies,Ht & Wt Patient Allergies: Coded Allergies: No Known Drug Allergies (Verified , 10/15/09) Height (Feet): 5 Height (Inches): 9.00 Weight (Pounds): 226 Weight (Ounces): 9.6 Home Health Need/Face to Face Date of Face to Face: Feb 04, 2021 Clinical Findings: Generalized weakness and fatigue, Instability, Muscle weakness I have seen Pt [id number]: Yes Discharged To: Home Diagnosis/Conditions: Colitis Patient is Homebound due to: Kevin fall risk due to instabilty, Muscle weakness Homebound Status Due to the above stated illness, injury or surgical procedure (medical condition or diagnosis) and associated clinical findings, the patient is homebound because of his/her inability to leave home except with aid of a supportive device and/or person AND leaving the home requires a considerable and taxing effort or is medically contraindicated. Pt req the following assistanc: [facility] Nursing Orders Home Health Services Order: Nursing Services, Palletizer-Evaluate & Treat, Physical Therapy-Evaluate & Treat Home Health Infusion Therapy Line Start Date: Jan 30, 2021 Certify Stmt I certify that this patient is under my care and that I, a nurse practitioner or a physician; a marketing communications assistant working with me, had a face to face encounter that - meets the physician face to face encounter requirements with this patient as dated. AGATHA PAZ DO Feb 04, 2021 10:09
--- NOTE | 2021-02-04 10:09 | Discharge Summary ---
Discharge Summary Hospital Course Was the Problem List Reviewed?: Yes Problems/Dx: (1) Abdominal wall cellulitis Status: Acute (2) Colitis Status: Acute (3) HTN (hypertension) Status: Chronic Qualifiers: Qualified Codes: I10 - Essential (primary) hypertension (4) T2DM (type 2 diabetes mellitus) Status: Chronic Hospital Course Date of Admission: Jan 30, 2021 at 19:58 Admission Diagnosis : Family Physician/Provider: Trever Rawls MD Date of Discharge: 02/04/21 Discharge Diagnosis: abdominal wall cellulitis, colitis Hospital Course: Pt had a lengthy hospital course after he was admitted for colitis and abdominal wall cellulitis. He was placed on appropriate antibiotics. Hemoccult positive stools prompted general surgery evaluation, and there likely was a component of colitis and some ischemic colitis considering his vascular disease. Overall he is doing very well, discharge was planned, bowels were firming up and he overall had no concerns about going home. He was back to his baseline and home health was ordered. Labs and Pending Lab Test: Laboratory Tests 02/03/21 11:12: Glucometer 212H 02/03/21 15:23: Glucometer 235H 02/03/21 20:03: Glucometer 322H 02/04/21 05:52: Glucometer 197H 02/04/21 05:54: White Blood Count 4.5, Red Blood Count 3.77L, Hemoglobin 11.0L, Hematocrit 35L, Mean Corpuscular Volume 93, Mean Corpuscular Hemoglobin 29, Mean Corpuscular Hemoglobin Concent 31L, Red Cell Distribution Width 13.2, Platelet Count 194, Mean Platelet Volume 10.2, Sodium Level 140, Potassium Level 3.2L, Chloride Level 103, Carbon Dioxide Level 27, Anion Gap 10, Blood Urea Nitrogen 16, Creatinine 1.56H, Estimat Glomerular Filtration Rate 42, BUN/Creatinine Ratio 10, Glucose Level 199H, Calcium Level 8.4L Microbiology 02/02/21 C. difficile GDH Antigen & Toxins - Final, Complete 01/30/21 Blood Culture - Preliminary, Resulted No growth Home Meds Active Augmentin 875-125 Tablet (Amoxicillin/Potassium Clav) 1 Each Tablet 1 Each PO BID HYDROcodone/APAP 5 MG/325 MG TAB (Acetaminophen/Hydrocodone Bitart) 1 Tab Tab 1 Ea PO Q4H PRN Reported Glucagon Emergency Kit (Glucagon,Human Recombinant) 1 Mg/Kit Soln 1 Mg IJ UD PRN Humulin 70-30 Vial (Insulin NPH Hum/Reg Insulin Hm) 100 Unit/1 Ml Vial 10 Unit S Q BIDPC Furosemide 40 Mg Tablet 40 Mg PO HS Flomax (Tamsulosin HCl) 0.4 Mg Cap 0.4 Mg PO BID Ativan (Lorazepam) 0.5 Mg Tablet 0.5 Mg PO BID PRN Sertraline HCl 50 Mg Tablet 50 Mg PO HS Neurontin (Gabapentin) 300 Mg Capsule 300 Mg PO BID Aspirin EC (Aspirin) 81 Mg Tablet.dr 81 Mg PO DAILY Fluoxetine HCl 20 Mg Capsule 20 Mg PO HS Vitamin C (Ascorbic Acid) 500 Mg Capsule 500 Mg PO DAILY Calcium (Calcium Carbonate) 600 Mg Tablet 600 Mg PO DAILY Atenolol 25 Mg Tablet 25 Mg PO HS Finasteride 5 Mg Tablet 5 Mg PO HS Centrum Silver Tablet (Multivit-Min/FA/Lycopene/Lut) 1 Each Tablet 1 Tab PO DAILY Assessment/Pt Instructions [facility] 1 week Discharge Planning: <30 minutes discharge planning Discharge Physical Examination Vital Signs Vital Signs Date Time Temp Pulse Resp B/P (MAP) Pulse Ox O2 Delivery O2 Flow Rate FiO2 02/04/21 08:49 36.4 70 20 117/58 (77) 93 Room Air 02/01/21 08:12 1.50 General Appearance: No Apparent Distress, WD/WN Respiratory: Lungs Clear Cardiovascular: Regular Rate, Rhythm Neurologic/Psychiatric: Alert, Oriented x3, No Motor/Sensory Deficits, Normal Mood/Affect Allergies: Coded Allergies: No Known Drug Allergies (Verified , 10/15/09) Discharge Summary Date of Admission Jan 30, 2021 at 19:58 Date of Discharge Discharge Date: Feb 04, 2021 Discharge Diagnosis Assessment: Diarrhea Abdominal wall cellulitis DM CAD PVD Right BKA Plan: Monitor diarrhea Appreciate Dr Henderson consult AGATHA PAZ DO Feb 04, 2021 10:09
--- NOTE | 2021-02-04 12:35 | Progress Note - Cardiology ---
Cardiology SOAP Progress Note Subjective: Gen weakness and malaise No cp or palp or syncope No n/v/d Objective: I&O/Vital Signs 02/04/21 02/04/21 08:00 08:49 Temp 36.4 Pulse 70 Resp 20 B/P (MAP) 117/58 (77) Pulse Ox 93 O2 Delivery Room Air Room Air 02/04/21 00:00 Intake Total 1260 ml Output Total 200 ml Balance 1060 ml Weight (Pounds): 226 Weight (Ounces): 9.6 Weight (Calculated Kilograms): 102.043071 Constitutional: AAO x 3 Respiratory: chest is bilaterally symmetric, lungs clear to auscultation Cardiovascular: regular rate-rhythm, S1 and S2 Gastrointestional: soft, round, audible bowel sounds Extremities: other (R AKA with prosthesis in place; pitting LLE swelling from knee to foot) Neurologic/Psychiatric: oriented x 3, grossly intact (moves all extremities) Skin: normal color; No jaundice, No rash Results/Procedures: Labs Laboratory Tests 02/03/21 15:23: Glucometer 235H 02/03/21 20:03: Glucometer 322H 02/04/21 05:52: Glucometer 197H 02/04/21 05:54: White Blood Count 4.5, Red Blood Count 3.77L, Hemoglobin 11.0L, Hematocrit 35L, Mean Corpuscular Volume 93, Mean Corpuscular Hemoglobin 29, Mean Corpuscular Hemoglobin Concent 31L, Red Cell Distribution Width 13.2, Platelet Count 194, Mean Platelet Volume 10.2, Sodium Level 140, Potassium Level 3.2L, Chloride Level 103, Carbon Dioxide Level 27, Anion Gap 10, Blood Urea Nitrogen 16, Creatinine 1.56H, Estimat Glomerular Filtration Rate 42, BUN/Creatinine Ratio 1 0, Glucose Level 199H, Calcium Level 8.4L 02/04/21 11:36: Glucometer 257H Microbiology 02/02/21 C. 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 Parada his primary file conversion operator H/O R BKA - per pt it was done at the time of CABG - details unknown Open colon resection on 04-03-[address] Henderson d/t ischemic colon DM 2 HTN HLD Macular degeneration H/O tobaccoism - states he has not smoked in years Prob COPD BPH with urinary retention and hematuria - managed per Dr. Sal Plan: Continue current regimen Management of abd discomfort is with Medical and Surgical services FRANCESCO menjivare to LLE d/t swelling Somewhat worsening renal function Monitor lab closely Replace electrolytes JOSIAH MORENO MD FACP FACC CCDS Feb 04, 2021 12:35
[2021-02-04] MEDS ORDERED: KCL 20 MEQ TAB (K-DUR) PO ONE (12:45)
[2021-02-04 15:10] VITALS: BP 117/58
--- NOTE | 2021-02-05 09:45 | Physician Query Clarification ---
PQ-Further Specificity Admission/Discharge Admission Date: Jan 30, 2021 at 19:58 Discharge Date: Feb 04, 2021 at 15:12 Dr. Ballesteros, The medical record reflects the following clinical scenario: History/Risk Factors: colitis, abdominal wall cellulitis, elevated troponin, HTN w/acute on chronic systolic/diastolic CHF Clinical Findings: abdominal pain, fever, nausea Treatment: IV Ceftriaxone, IV piperacillin Question: Can you further specify can you specify the colitis per the clinical indicators above? Please document a response in the Progress Notes or Discharge Summary. 1. acute ischemic colitis 2. chronic ischemic colitis 3. infective colitis 4. noninfective colitis 5. Other, with explanation of the clinical findings. 6. Clinically undetermined, no explanation for the clinical findings. PHYSICIAN RESPONSE Can you specify per above: 1 Please remember a lack of response to the above will prompt a phone page by CDI/Coding staff. In responding to this query, please exercise your independent professional judgment. The purpose of this communication is to more accurately reflect the complexity of your patients condition. The fact that a question is asked does not imply that any particular answer is desired or expected. Thank you for your timely response to this clarification. Requestors name: [email or web address] THIS PHYSICIAN QUERY FORM IS A PERMANENT PART OF THE MEDICAL RECORD NAYLA HILL Feb 05, 2021 09:45 AGATHA BALLESTEROS DO Feb 05, 2021 11:17
--- NOTE | 2021-02-05 09:50 | Physician Query Clarification ---
PQ-Further Specificity Admission/Discharge Admission Date: Jan 30, 2021 at 19:58 Discharge Date: Feb 04, 2021 at 15:12 Dr. Eaton, The medical record reflects the following clinical scenario: History/Risk Factors: colitis, abdominal wall cellulitis, abdominal angina, HTN w/acute on chronic systolic/diastolic CHF Clinical Findings: Troponin 0.054 Treatment: secondary prevention measures Question: Can you further specify the elevated troponin per the clinical indicators above? Please document a response in the Progress Notes or Discharge Summary. 1. TN type 2 2. Elevated troponin not further specified 3. Other, with explanation of the clinical findings. 4. Clinically undetermined, no explanation for the clinical findings. PHYSICIAN RESPONSE Can you specify per above: 1 Explanation/Clinical Findings likely type II mi due to CHF. Please remember a lack of response to the above will prompt a phone page by CDI/Coding staff. In responding to this query, please exercise your independent professional judgment. The purpose of this communication is to more accurately reflect the complexity of your patients condition. The fact that a question is asked does not imply that any particular answer is desired or expected. Thank you for your timely response to this clarification. Requestors name: [email or web address] THIS PHYSICIAN QUERY FORM IS A PERMANENT PART OF THE MEDICAL RECORD NAYLA HILL Feb 05, 2021 09:50 Martinez EATON MD Feb 23, 2021 21:46
== END 2021-02-04 15:12 | disposition home health service (06) | DRG 393 ==
LOC: EDUNIT# 16:05 → ER 16:08 → 4TH 19:58
PROVIDERS: ADMIT Family Medicine; ATTEND Internal Medicine
DX: K55.039 Acute (reversible) ischemia of large intestine, extent unspecified (principal); I50.43 Acute on chronic combined systolic (congestive) and diastolic (congestive) heart failure; I21.A1 Myocardial infarction type 2; L03.311 Cellulitis of abdominal wall; J90 Pleural effusion, not elsewhere classified; J96.11 Chronic respiratory failure with hypoxia; N17.9 Acute kidney failure, unspecified; K52.9 Noninfective gastroenteritis and colitis, unspecified; I11.0 Hypertensive heart disease with heart failure; E11.65 Type 2 diabetes mellitus with hyperglycemia; E11.40 Type 2 diabetes mellitus with diabetic neuropathy, unspecified; Z79.4 Long term (current) use of insulin; E11.22 Type 2 diabetes mellitus with diabetic chronic kidney disease; N40.1 Benign prostatic hyperplasia with lower urinary tract symptoms; R33.8 Other retention of urine; J44.9 Chronic obstructive pulmonary disease, unspecified; N18.30 Chronic kidney disease, stage 3 unspecified; D64.9 Anemia, unspecified; F32.9 Major depressive disorder, single episode, unspecified; I25.10 Atherosclerotic heart disease of native coronary artery without angina pectoris; E78.00 Pure hypercholesterolemia, unspecified; K25.9 Gastric ulcer, unspecified as acute or chronic, without hemorrhage or perforation; H35.30 Unspecified macular degeneration; Z87.01 Personal history of pneumonia (recurrent); Z86.16 Personal history of COVID-19; Z95.1 Presence of aortocoronary bypass graft; Z95.0 Presence of cardiac pacemaker; Z89.511 Acquired absence of right leg below knee; Z79.82 Long term (current) use of aspirin; Z83.3 Family history of diabetes mellitus
CPT/HCPCS: 36415; 71045; 74176; 80048; 80053; 80061; 81000; 82274; 82962; 83605; 83690; 83735; 83874; 83880; 84484; 85025; 85027; 85610; 85730; 86141; 87040; 87324; 87449; 93005; 93041; 93306; 94760; 96372; 96374

== ENCOUNTER 2021-04-13 19:57 | Emergency (ER) | payer MEDICARE ==
[~2021-04-13] VITALS: Ht 175.2 cm; Wt 97.5 kg
[~2021-04-13 19:57] MED LIST changes: +AMOX-358 PO; +CALC600T91 PO; -CLC600T PO
--- NOTE | 2021-04-13 20:19 | ED General ---
General Stated Complaint: TOOK TWO DOSES OF INSULIN Source of Information: Patient (LIMITED HISTORIAN), Family (DAUGHTER GIVES ALL INFORMATION) History of Present Illness Date Seen by Provider: April 13, 2021 Time Seen by Provider: 20:03 Initial Comments PT ARRIVES VIA POV FROM HOME WITH DAUGHTER, IN WHEELCHAIR PT IS INSULIN DEPENDENT DIABETIC GAVE HIM HIS REGULAR DOSE OF INSULIN--HUMULIN 70/30 16 UNITS BETWEEN 1730 AND 1745 DAUGHTER ALSO GAVE HIM A DOSE OF THE SAME AT 1900--DAUGHTER DID NOT KNOW THAT PT HAD ALREADY RECEIVED HIS EVENING DOSE, AND PT DID NOT TELL DAUGHTER THAT HE ALREADY HAD HIS DOSE. THEN CAME STRAIGHT HERE ACCUCHECK 343 JUST PRIOR TO ARRIVAL AT HOME PT ATE BETWEEN [phone]--RIGATONI, POTATO SALAD, TAZ SLAW, DEVILED EGGS, BREAD PT IS COMPLETELY ASYMPTOMATIC DAUGHTER STATES THEY SAW DR. PATTEN ON WEDNESDAY AND INSULIN DOSE WAS INCREASED FROM 10 UNITS TO 16 UNITS. PCP: DR. PATTEN AT [facility] RFID SPECIALIST: DR. MIRAMONTES AT [facility] Allergies and Home Medications Allergies Coded Allergies: No Known Drug Allergies (Verified , 10/15/09) Home Medications Amoxicillin/Potassium Clav 1 Each Tablet, 1 EACH PO BID Prescribed by: AGATHA PAZ on 02/04/21 1007 Ascorbic Acid 500 Mg Capsule, 500 MG PO DAILY, (Reported) Aspirin 81 Mg Tablet.dr, 81 MG PO DAILY, (Reported) Atenolol 25 Mg Tablet, 25 MG PO HS, (Reported) Calcium Carbonate 600 Mg Tablet, 600 MG PO DAILY, (Reported) Finasteride 5 Mg Tablet, 5 MG PO HS, (Reported) Fluoxetine HCl 20 Mg Capsule, 20 MG PO HS, (Reported) Furosemide 40 Mg Tablet, 40 MG PO HS, (Reported) Gabapentin 300 Mg Capsule, 300 MG PO BID, (Reported) Glucagon,Human Recombinant 1 Mg/Kit Soln, 1 MG IJ UD PRN for HYPOGLYCEMIA, (Reported) Hydrocodone Bit/Acetaminophen 1 Tab Tab, 1 EA PO Q4H PRN for PAIN-MODERATE (5-7) Prescribed by: AGATHA PAZ on 02/04/21 1008 Insulin NPH Hum/Reg Insulin Hm 100 Unit/1 Ml Vial, 10 UNIT SQ BIDPC, (Reported) Lorazepam 0.5 Mg Tablet, 0.5 MG PO BID PRN for ANXIETY, (Reported) Multivit-Min/FA/Lycopene/Lut 1 Each Tablet, 1 TAB PO DAILY, (Reported) Tamsulosin HCl 0.4 Mg Cap, 0.4 MG PO BID, (Reported) Patient Home Medication List Home Medication List Reviewed: Yes Review of Systems Review of Systems Constitutional: no symptoms reported Respiratory: no symptoms reported Cardiovascular: no symptoms reported Gastrointestinal: other (CHRONIC DIARRHEA/CHRONIC COLITIS) Past Shfffnu-Eixypn-Ijqsco Hx Past Med/Social Hx: Reviewed and Corrections made Patient Social History Alcohol Use: Occasionally Uses Alcohol Beverage of Choice: Whiskey Smoking Status: Current Everyday Smoker Type Used: Cigars 2nd Hand Smoke Exposure: Yes Recent Hopitalizations: Yes Immunizations Up To Date Tetanus Booster (TDap): Unknown Date of Pneumonia Vaccine: Sep 29, 2012 Seasonal Allergies Seasonal Allergies: No Past Medical History Surgeries: Yes (CABG; RIGHT BKA; RIGHT LEG ARTERY BYPASS; PACEMAKER X 2;BOWEL RESECTION ) Abdominal, Amputation, Bowel Surgery, Cardiac, CABG, Eye Surgery, Joint Replacement, Orthopedic, Pacemaker, Vascular Surgery Respiratory: Yes (COVID-19 10/2020 WITH RESP FAILURE/SEPTIC SHOCK) Pneumonia Currently Using CPAP: No Currently Using BIPAP: No Cardiac: Yes (4 VESSEL CABG; PACEMAKER;RIGHT LEG ARTERIAL BYPASS, THEN BKA;CHF) Coronary Artery Disease, High Cholesterol, Hypertension, Peripheral Vascular Neurological: Yes Headaches /Migraines, Neuropathy Reproductive Disorders: No Genitourinary: Yes Prostate Problems, Renal Failure Gastrointestinal: Yes (ISCHEMIC BOWEL-S/P COLON RESECTION 03/2020 AND 10/2020) Colitis, Chronic Constipation, Chronic Diarrhea Musculoskeletal: Yes (RIGHT BKA FOR PVD AND DIABETIC FOOT ULCER/CHRONIC INFECTION) Amputee Endocrine: Yes Diabetes, Insulin dep HEENT: Yes Cataract, Macular Degeneration Loss of Vision: Denies Hearing Impairment: Hard of Hearing Cancer: No Psychosocial: Yes Depression Integumentary: Yes (CHRONIC WOUNDS/DIABETIC FOOT ULCER) Blood Disorders: No Adverse Reaction/Blood Tranf: No Family Medical History Diabetes mellitus GRANDMOTHER FH: leukemia G8 BROTHER Testicular cancer 19 FATHER No Pertinent Family Hx PT HAD COVID-19 IN OCTOBER 2020 AND WAS HOSPITALIZED--PROTRACTED HOSPITALIZATION WITH SEPTIC SHOCK, RESPIRATORY FAILURE AND ISCHEMIC BOWEL PT HAD SURGERY 11/03/20 FOR ISCHEMIC BOWEL AND INTERNAL HERNIA--HAD EXPLORATORY LAPAROTOMY WITH ILEO-COLONIC RESECTION BY DR. GREENBERG ADMITTED 01/30/21 FOR COLITIS AND ABDOMINAL WALL CELLULITIS CYSTOSCOPY 03/[address] MARINO Physical Exam Vital Signs Vital Signs - First Documented 04/13/21 04/13/21 20:00 20:05 Temp 36.7 Pulse 73 Resp 22 B/P (MAP) 116/48 (70) Pulse Ox 91 O2 Delivery Room Air O2 Flow Rate 2.00 Capillary Refill : Height, Weight, BMI Height: 5'9.00" Weight: 226lbs. 9.6oz. 102.931216wj; 32.71 BMI Method:Stated General Appearance: No Apparent Distress, WD/WN, Other (REEKS OF TOBACCO. SMILING. DOES NOT APPEAR IN ANY DISCOMFORT OR DISTRESS. VERY TALKATIVE. ) Respiratory: Normal Breath Sounds Cardiovascular: Regular Rate, Rhythm Extremity: Other (RIGHT BKA WITH PROSTHETIC LEG IN PLACE. LEFT LOWER LEG HEAVILY WRAPPED, LARGE AREA OF DRIED DRAINAGE, DRESSINGS DIRTY. ) Neurologic/Psychiatric: Alert, Oriented x3, Normal Mood/Affect Skin: Normal Color Procedures/Interventions Date of ETT Placement: Nov 03, 2020 Progress/Results/Core Measures Suspected Sepsis SIRS Temperature: Pulse: Respiratory Rate: Laboratory Tests 04/13/21 20:58: White Blood Count 6.1 Blood Pressure / Mean: Laboratory Tests 04/13/21 20:20: Creatinine 1.98H 04/13/21 20:58: Platelet Count 140 Results/Orders Lab Results Laboratory Tests Test 04/13/21 20:20 04/13/21 20:58 04/13/21 21:35 Range/Units Sodium Level 135 135-145 MMOL/L Potassium Level 4.4 3.6-5.0 MMOL/L Chloride Level 101 98-107 MMOL/L Carbon Dioxide Level 23 21-32 MMOL/L Anion Gap 11 5-14 MMOL/L Blood Urea Nitrogen 33 H 7-18 MG/DL Creatinine 1.98 H 0.60-1.30 MG/DL Estimat Glomerular Filtration Rate 32 BUN/Creatinine Ratio 17 Glucose Level 259 H 70-105 MG/DL Glucometer 255 H 225 H 70-110 MG/DL Calcium Level 8.2 L 8.5-10.1 MG/DL White Blood Count 6.1 4.3-11.0 10^3/uL Red Blood Count 3.81 L 4.30-5.52 10^6/uL Hemoglobin 10.9 L 13.3-17.7 g/dL Hematocrit 35 L 40-54 % Mean Corpuscular Volume 91 80-99 fL Mean Corpuscular Hemoglobin 29 25-34 pg Mean Corpuscular Hemoglobin Concent 31 L 32-36 g/dL Red Cell Distribution Width 14.8 H 10.0-14.5 % Platelet Count 140 130-400 10^3/uL Mean Platelet Volume 10.4 9.0-12.2 fL Immature Granulocyte % (Auto) 0 % Neutrophils (%) (Auto) 53 42-75 % Lymphocytes (%) (Auto) 35 12-44 % Monocytes (%) (Auto) 8 0-12 % Eosinophils (%) (Auto) 4 0-10 % Basophils (%) (Auto) 1 0-10 % Neutrophils # (Auto) 3.2 1.8-7.8 10^3/uL Lymphocytes # (Auto) 2.1 1.0-4.0 10^3/uL Monocytes # (Auto) 0.5 0.0-1.0 10^3/uL Eosinophils # (Auto) 0.2 0.0-0.3 10^3/uL Basophils # (Auto) 0.1 0.0-0.1 10^3/uL Immature Granulocyte # (Auto) 0.0 0.0-0.1 10^3/uL My Orders Orders - HIRAM FRAZIER DO Accucheck Stat ONCE (04/13/21 20:08) Ed Iv/Invasive Line Start (04/13/21 20:08) Basic Metabolic Panel (04/13/21 20:08) Cbc With Automated Diff (04/13/21 20:08) Accucheck Stat ONCE (04/13/21 21:31) Vital Signs/I&O 04/13/21 04/13/21 04/13/21 20:00 20:05 21:37 Temp 36.7 36.5 Pulse 73 71 Resp 22 18 B/P (MAP) 116/48 (70) 135/53 (70) Pulse Ox 91 96 97 O2 Delivery Room Air Nasal Cannula Nasal Cannula O2 Flow Rate 2.00 2.00 Capillary Refill : Progress Note : Progress Note PT IS COMPLETELY ASYMPTOMATIC AND ANXIOUS TO GO HOME DISCUSSED PLAN OF CARE WITH DAUGHTER, AND IS AGREEABLE / FEELS COMFORTABLE TAKING PT HOME ACCUCHECK 255 ON ARRIVAL, 225 AT DISMISSAL Departure Impression Primary Impression: accidental excessive dose of insulin Additional Impression: T2DM (type 2 diabetes mellitus) Disposition: 01 HOME, SELF-CARE Condition: Stable Departure-Patient Inst. Referrals: SHIRA PATTEN MD (PCP/Family) Primary Care Physician Patient Instructions: Diabetes Type 2 (DC) Add. Discharge Instructions: HOME, REST TAKE HIGH PROTEIN SNACK WHEN YOU GET HOME HOURLY GLUCOSE CHECKS TONIGHT TAKE ORAL GLUCOSE OF BLOOD SUGAR DROPS BELOW 100 TONIGHT. RESUME REGULAR INSULIN SCHEDULE IN THE MORNING RETURN TO ER IF PROBLEMS HIRAM FRAZIER DO April 13, 2021 20:19
[2021-04-13 20:41] LABS: CALCIUM 8.2 MG/DL (8.5-10.1); CREATININE SERUM 1.98 MG/DL (0.60-1.30); POTASSIUM 4.4 MMOL/L (3.6-5.0)
[2021-04-13 21:01] LABS: BASOPHILS # (AUTO) 0.1 10^3/uL (0.0-0.1); BASOPHILS % (AUTO) 1 % (0-10); EOSINOPHILS # (AUTO) 0.2 10^3/uL (0.0-0.3); EOSINOPHILS % (AUTO) 4 % (0-10); HEMATOCRIT 35 % (40-54); HEMOGLOBIN 10.9 g/dL (13.3-17.7); LYMPHOCYTES # (AUTO) 2.1 10^3/uL (1.0-4.0); LYMPHOCYTES % (AUTO) 35 % (12-44); MEAN CORPUSCULAR HEMOGLOBIN 29 pg (25-34); MEAN CORPUSCULAR HGB CONC 31 g/dL (32-36); MEAN CORPUSCULAR VOLUME 91 fL (80-99); MEAN PLATELET VOLUME 10.4 fL (9.0-12.2); MONOCYTES # (AUTO) 0.5 10^3/uL (0.0-1.0); MONOCYTES % (AUTO) 8 % (0-12); NEUTROPHILS # (AUTO) 3.2 10^3/uL (1.8-7.8); NEUTROPHILS % (AUTO) 53 % (42-75); PLATELET COUNT 140 10^3/uL (130-400); WHITE BLOOD COUNT 6.1 10^3/uL (4.3-11.0)
[2021-04-13 21:37] VITALS: BP 135/53
== END 2021-04-13 21:38 | disposition home or self-care (01) ==
LOC: EDUNIT# 19:57 → ER 19:59
DX: T38.3X1A Poisoning by insulin and oral hypoglycemic [antidiabetic] drugs, accidental (unintentional), initial encounter (principal); E11.40 Type 2 diabetes mellitus with diabetic neuropathy, unspecified; I11.0 Hypertensive heart disease with heart failure; I50.9 Heart failure, unspecified; F32.9 Major depressive disorder, single episode, unspecified; G43.909 Migraine, unspecified, not intractable, without status migrainosus; I25.10 Atherosclerotic heart disease of native coronary artery without angina pectoris; F17.290 Nicotine dependence, other tobacco product, uncomplicated; Z86.16 Personal history of COVID-19; Z95.1 Presence of aortocoronary bypass graft; Z95.0 Presence of cardiac pacemaker; Z79.82 Long term (current) use of aspirin; Z79.4 Long term (current) use of insulin; Z79.899 Other long term (current) drug therapy
CPT/HCPCS: 36415; 80048; 82947; 85025

== ENCOUNTER 2021-08-01 18:56 | Emergency (ER) | payer MEDICARE ==
[~2021-08-01] VITALS: Ht 175 cm; Wt 97.5 kg
--- NOTE | 2021-08-01 19:20 | ED Integumentary General ---
General Chief Complaint: Skin/Wound Problems Stated Complaint: LEG LAC/ LEAKING FLUID Source: patient Exam Limitations: no limitations History of Present Illness Date Seen by Provider: Aug 01, 2021 Time Seen by Provider: 19:18 Initial Comments Patient is an 86-year-old male who presents from home where he lives with his in [place] with a chief complaint of a laceration to the left lower leg from a piece of tin that occurred this morning and subsequent drainage/leakage of fluid from this laceration. Patient has a history of diabetes, previous amputation of the right leg. States that his tetanus shot is up-to-date, he got one within the last year or 2. Denies pain but states this left leg has been swelling for months and months. No pain in the area of the skin tear/laceration. Concerned about the amount of fluid draining from the leg. No reports of fevers or chills. No shortness of breath. States he is urinating normally on his diuretics. All other review of systems reviewed and negative except as stated. Timing/Duration: this morning Severity: moderate Location: extremities (left leg) Possible Cause: other (cut on a piece of tin) Associated Symptoms: edema Allergies and Home Medications Allergies Coded Allergies: No Known Drug Allergies (Verified , 10/15/09) Patient Home Medication List Home Medication List Reviewed: Yes Ascorbic Acid (Vitamin C) 500 Mg Capsule, 500 MG PO DAILY, (Reported) Entered as Reported by: TIMOTHY SPRING on 04/01/201338 Last Action: Last Taken Edited Aspirin (Aspirin EC) 81 Mg Tablet.dr, 81 MG PO DAILY, (Reported) Entered as Reported by: REGAN LEVY on 11/04/20 1154 Last Action: Last Taken Edited Atenolol (Atenolol) 25 Mg Tablet, 25 MG PO HS, (Reported) Entered as Reported by: TIMOTHY SPRING on 02/26/201331 Last Action: Last Taken Edited Calcium Carbonate (Calcium) 600 Mg Tablet, 600 MG PO DAILY, (Reported) Entered as Reported by: TIMOTHY SPRING on 04/01/201338 Last Action: Last Taken Edited Finasteride (Finasteride) 5 Mg Tablet, 5 MG PO HS, (Reported) Entered as Reported by: TIMOTHY SPRING on 02/26/201331 Last Action: Last Taken Edited Fluoxetine HCl (Fluoxetine HCl) 20 Mg Capsule, 20 MG PO HS, (Reported) Entered as Reported by: TIMOTHY SPRING on 04/01/20 1339 Last Action: Last Taken Edited Furosemide (Furosemide) 40 Mg Tablet, 40 MG PO HS, (Reported) Entered as Reported by: TIMOTHY SPRING on 01/31/21 1237 Last Action: Last Taken Edited Gabapentin (Neurontin) 300 Mg Capsule, 300 MG PO BID, (Reported) Entered as Reported by: REGAN LEVY on 11/04/20 1155 Last Action: Last Taken Edited Glucagon,Human Recombinant (Glucagon Emergency Kit) 1 Mg/Kit Soln, 1 MG IJ UD PRN for HYPOGLYCEMIA, (Reported) Entered as Reported by: TIMOTHY SPRING on 01/31/21 1243 Last Action: Last Taken Edited Hydrocodone Bit/Acetaminophen (HYDROcodone/APAP 5 MG/325 MG TAB) 1 Tab Tab, 1 EA PO Q4H PRN for PAIN-MODERATE (5-7) Prescribed by: AGATHA PAZ on 02/04/21 1008 Last Action: Last Taken Edited Insulin NPH Hum/Reg Insulin Hm (Humulin 70-30 Vial) 100 Unit/1 Ml Vial, 10 UNIT SQ BIDPC, (Reported) Entered as Reported by: TIMOTHY SPRING on 01/31/21 123 Last Action: Last Taken Edited Lorazepam (Ativan) 0.5 Mg Tablet, 0.5 MG PO BID PRN for ANXIETY, (Reported) Entered as Reported by: TIMOTHY SPRING on 01/31/21 1237 Last Action: Last Taken Edited Multivit-Min/FA/Lycopene/Lut (Centrum Silver Tablet) 1 Each Tablet, 1 TAB PO DAILY, (Reported) Entered as Reported by: KRISHNA CANO on 09/01/15 1109 Last Action: Last Taken Edited Tamsulosin HCl (Flomax) 0.4 Mg Cap, 0.4 MG PO BID, (Reported) Entered as Reported by: TIMOTHY SPRING on 01/31/21 123 Last Action: Last Taken Edited Discontinued Medications Amoxicillin/Potassium Clav (Augmentin 875-125 Tablet) 1 Each Tablet, 1 EACH PO BID Discontinued Reason: No Longer Taking Prescribed by: AGATHA PAZ on 02/04/21 1007 Last Action: Discontinued Review of Systems Review of Systems Constitutional: see HPI EENTM: no symptoms reported Respiratory: no symptoms reported Cardiovascular: no symptoms reported Gastrointestinal: no symptoms reported Musculoskeletal: other (left leg swelling) Skin: other (skin tear and drainage) Psychiatric/Neurological: Numbness (left foot/leg (chronic secondary to DM)) All Other Systems Reviewed Negative Unless Noted: Yes Past Ryujjma-Clbwjy-Dhqnmm Hx Immunizations Up To Date Tetanus Booster (TDap): Unknown Seasonal Allergies Seasonal Allergies: No Past Medical History Surgeries: Yes (CABG; RIGHT BKA; RIGHT LEG ARTERY BYPASS; PACEMAKER X 2;BOWEL RESECTION ) Abdominal, Amputation, Bowel Surgery, Cardiac, CABG, Eye Surgery, Joint Replacement, Orthopedic, Pacemaker, Vascular Surgery Respiratory: Yes (COVID-19 10/2020 WITH RESP FAILURE/SEPTIC SHOCK) Pneumonia Currently Using CPAP: No Currently Using BIPAP: No Cardiac: Yes (4 VESSEL CABG; PACEMAKER;RIGHT LEG ARTERIAL BYPASS, THEN BKA;CHF) Coronary Artery Disease, High Cholesterol, Hypertension, Peripheral Vascular Neurological: Yes Headaches /Migraines, Neuropathy Reproductive Disorders: No Genitourinary: Yes Prostate Problems, Renal Failure Gastrointestinal: Yes (ISCHEMIC BOWEL-S/P COLON RESECTION 03/2020 AND 10/2020) Colitis, Chronic Constipation, Chronic Diarrhea Musculoskeletal: Yes (RIGHT BKA FOR PVD AND DIABETIC FOOT ULCER/CHRONIC INFECTION) Amputee Endocrine: Yes Diabetes, Insulin dep HEENT: Yes Cataract, Macular Degeneration Loss of Vision: Denies Hearing Impairment: Hard of Hearing Cancer: No Psychosocial: Yes Depression Integumentary: Yes (CHRONIC WOUNDS/DIABETIC FOOT ULCER) Blood Disorders: No Adverse Reaction/Blood Tranf: No Family Medical History Diabetes mellitus GRANDMOTHER FH: leukemia G8 BROTHER Testicular cancer 19 FATHER No Pertinent Family Hx PT HAD COVID-19 IN OCTOBER 2020 AND WAS HOSPITALIZED--PROTRACTED HOSPITALIZATION WITH SEPTIC SHOCK, RESPIRATORY FAILURE AND ISCHEMIC BOWEL PT HAD SURGERY 11/03/20 FOR ISCHEMIC BOWEL AND INTERNAL HERNIA--HAD EXPLORATORY LAPAROTOMY WITH ILEO-COLONIC RESECTION BY DR. GREENBERG ADMITTED 01/30/21 FOR COLITIS AND ABDOMINAL WALL CELLULITIS CYSTOSCOPY 03/[address] MARINO Physical Exam Vital Signs Vital Signs - First Documented 08/01/21 19:02 Temp 36.8 Pulse 70 Resp 16 B/P (MAP) 148/86 (106) O2 Delivery Nasal Cannula O2 Flow Rate 2.00 Capillary Refill : General Appearance: WD/WN, no apparent distress Cardiovascular: regular rate, rhythm, other (edema distal left leg) Respiratory: lungs clear, normal breath sounds, no respiratory distress, no accessory muscle use Gastrointestinal: non tender, soft Extremities: other (AKA RLE; left lower extremity skin tear distal lower left leg - almost posteriorly, about 6 cm in length by 4cm wide. no bleeding. patient has a large area anterior to the skin tear of localized edema, cold to the touch about 15cm long by 8cm wide. nontender) Neurologic/Psychiatric: alert, normal mood/affect, oriented x 3 Skin: normal color, warm/dry Skin Problem Character: drainage ((as above under extremity exam)) Procedures/Interventions Date of ETT Placement: Nov 03, 2020 Progress/Results/Core Measures Results/Orders Lab Results Laboratory Tests Test 08/01/21 19:36 Range/Units Sodium Level 142 135-145 MMOL/L Potassium Level 3.9 3.6-5.0 MMOL/L Chloride Level 103 98-107 MMOL/L Carbon Dioxide Level 27 21-32 MMOL/L Anion Gap 12 5-14 MMOL/L Blood Urea Nitrogen 36 H 7-18 MG/DL Creatinine 1.93 H 0.60-1.30 MG/DL Estimat Glomerular Filtration Rate 33 BUN/Creatinine Ratio 19 Glucose Level 150 H 70-105 MG/DL Calcium Level 9.3 8.5-10.1 MG/DL My Orders Orders - LOLITA SWARTZ MD Basic Metabolic Panel (08/01/21 19:33) Vital Signs/I&O 08/01/21 19:02 Temp 36.8 Pulse 70 Resp 16 B/P (MAP) 148/86 (106) O2 Delivery Nasal Cannula O2 Flow Rate 2.00 Departure Impression Primary Impression: Skin tear Additional Impressions: Edema of left lower extremity Chronic kidney disease Qualified Codes: N18.9 - Chronic kidney disease, unspecified Disposition: HOME, SELF-CARE Condition: Stable Departure-Patient Inst. Decision time for Depature: 19:32 Referrals: SHIRA PATTEN MD (PCP/Family) Primary Care Physician Patient Instructions: Wound Care (DC) Add. Discharge Instructions: try and elevate the left leg to reduce swelling. change the dressing daily. Please call [facility] on Wednesday for a follow up appointment. [phone] Return to the Emergency Department for any increased swelling with redness, drainage of pus, fever or other emergent concerning symptoms. Follow up with Dr Patten. Copy Copies To 1: PAULA ROBERTS KATHRYN M MD Aug 01, 2021 19:19
[2021-08-01 19:57] LABS: POTASSIUM 3.9 MMOL/L (3.6-5.0)
[2021-08-01 19:58] LABS: CALCIUM 9.3 MG/DL (8.5-10.1)
[2021-08-01 20:02] LABS: CREATININE SERUM 1.93 MG/DL (0.60-1.30)
[2021-08-01 20:09] VITALS: BP 128/72
== END 2021-08-01 20:15 | disposition home or self-care (01) ==
LOC: EDUNIT# 18:56 → ER 18:58
DX: S81.812A Laceration without foreign body, left lower leg, initial encounter (principal); R60.9 Edema, unspecified; I12.9 Hypertensive chronic kidney disease with stage 1 through stage 4 chronic kidney disease, or unspecified chronic kidney disease; E11.22 Type 2 diabetes mellitus with diabetic chronic kidney disease; N18.9 Chronic kidney disease, unspecified; F32.9 Major depressive disorder, single episode, unspecified; Z79.4 Long term (current) use of insulin; Z79.82 Long term (current) use of aspirin; Z79.899 Other long term (current) drug therapy; W26.8XXA Contact with other sharp object(s), not elsewhere classified, initial encounter
CPT/HCPCS: 80048; 99283; A6223; 36415

== ENCOUNTER 2021-09-23 13:29 | Emergency (ER) | payer MEDICARE ==
[~2021-09-23] VITALS: Ht 172 cm; Wt 99.7 kg
[2021-09-23 14:28] LABS: BASOPHILS % (AUTO) 1 % (0-10); EOSINOPHILS # (AUTO) 0.1 10^3/uL (0.0-0.3); EOSINOPHILS % (AUTO) 2 % (0-10); HEMATOCRIT 34 % (40-54); HEMOGLOBIN 10.3 g/dL (13.3-17.7); LYMPHOCYTES # (AUTO) 0.8 X 10^3 (1.0-4.0); LYMPHOCYTES % (AUTO) 14 % (12-44); MEAN CORPUSCULAR HEMOGLOBIN 29 pg (25-34); MEAN CORPUSCULAR HGB CONC 31 g/dL (32-36); MEAN CORPUSCULAR VOLUME 96 fL (80-99); MEAN PLATELET VOLUME 10.8 fL (9.0-12.2); MONOCYTES # (AUTO) 0.4 X 10^3 (0.0-1.0); MONOCYTES % (AUTO) 7 % (0-12); NEUTROPHILS # (AUTO) 4.6 X 10^3 (1.8-7.8); NEUTROPHILS % (AUTO) 76 % (42-75); PLATELET COUNT 112 10^3/uL (130-400); WHITE BLOOD COUNT 6.1 10^3/uL (4.3-11.0)
--- NOTE | 2021-09-23 15:04 | ED General ---
General Chief Complaint: Nasal Problems Stated Complaint: NOSE BLEED/BLACK STOOL Nursing Triage Note: ARRIVED VIA WC TO ROOM 06 WITH COMPLAINTS OF BLOODY STOOLS AND NOSE BLEED STARTING YESTERDAY. STARTED ON XERALTO X2 WEEKS AGO. APPT WITH DR PARADA SCHEDULED FOR WEDNESDAY. Source of Information: Patient, Family Exam Limitations: No Limitations History of Present Illness Date Seen by Provider: Sep 23, 2021 Allergies and Home Medications Allergies Coded Allergies: No Known Drug Allergies (Verified , 10/15/09) Patient Home Medication List Ascorbic Acid (Vitamin C) 500 Mg Capsule, 500 MG PO DAILY, (Reported) Entered as Reported by: TIMOTHY SPRING on 04/01/20 1339 Aspirin (Aspirin EC) 81 Mg Tablet.dr, 81 MG PO DAILY, (Reported) Entered as Reported by: REGAN LEVY on 11/04/20 1154 Atenolol (Atenolol) 25 Mg Tablet, 25 MG PO HS, (Reported) Entered as Reported by: TIMOTHY SPRING on 02/26/20 1332 Calcium Carbonate (Calcium) 600 Mg Tablet, 600 MG PO DAILY, (Reported) Entered as Reported by: TIMOTHY SPRING on 04/01/20 1339 Finasteride (Finasteride) 5 Mg Tablet, 5 MG PO HS, (Reported) Entered as Reported by: TIMOTHY SPRING on 02/26/20 1332 Fluoxetine HCl (Fluoxetine HCl) 20 Mg Capsule, 20 MG PO HS, (Reported) Entered as Reported by: TIMOTHY SPRING on 04/01/20 1339 Furosemide (Furosemide) 40 Mg Tablet, 40 MG PO HS, (Reported) Entered as Reported by: TIMOTHY SPRING on 01/31/21 1237 Gabapentin (Neurontin) 300 Mg Capsule, 300 MG PO BID, (Reported) Entered as Reported by: REGAN LEVY on 11/04/20 1155 Glucagon,Human Recombinant (Glucagon Emergency Kit) 1 Mg/Kit Soln, 1 MG IJ UD PRN for HYPOGLYCEMIA, (Reported) Entered as Reported by: TIMOTHY SPRING on 01/31/21 1243 Hydrocodone Bit/Acetaminophen (HYDROcodone/APAP 5 MG/325 MG TAB) 1 Tab Tab, 1 EA PO Q4H PRN for PAIN-MODERATE (5-7) Prescribed by: AGATHA PAZ on 02/04/21 1008 Insulin NPH Hum/Reg Insulin Hm (Humulin 70-30 Vial) 100 Unit/1 Ml Vial, 10 UNIT SQ BIDPC, (Reported) Entered as Reported by: TIMOTHY SPRING on 01/31/21 1237 Lorazepam (Ativan) 0.5 Mg Tablet, 0.5 MG PO BID PRN for ANXIETY, (Reported) Entered as Reported by: TIMOTHY SPRING on 01/31/21 1237 Multivit-Min/FA/Lycopene/Lut (Centrum Silver Tablet) 1 Each Tablet, 1 TAB PO DAILY, (Reported) Entered as Reported by: KRISHNA CANO on 09/01/15 1109 Tamsulosin HCl (Flomax) 0.4 Mg Cap, 0.4 MG PO BID, (Reported) Entered as Reported by: TIMOTHY SPRING on 01/31/21 1237 Past U[place]ibog-Hsseqe-Hhkrpc Hx Patient Social History Smoking Status: Former Smoker Substance use?: No Immunizations Up To Date Tetanus Booster (TDap): Unknown First/Initial COVID19 Vaccinat: 01/29/21 Second COVID19 Vaccination Kwasi: 03/19 Seasonal Allergies Seasonal Allergies: No Past Medical History Surgery/Hospitalization HX: IDDM, CABG, PPM, BOWEL RESECTION, ANXIETY, HTN Surgeries: Yes (CABG; RIGHT BKA; RIGHT LEG ARTERY BYPASS; PACEMAKER X 2;BOWEL RESECTION ) Abdominal, Amputation, Bowel Surgery, Cardiac, CABG, Eye Surgery, Joint Replacement, Orthopedic, Pacemaker, Vascular Surgery Respiratory: Yes (COVID-19 10/2020 WITH RESP FAILURE/SEPTIC SHOCK) Pneumonia Currently Using CPAP: No Currently Using BIPAP: No Cardiac: Yes (4 VESSEL CABG; PACEMAKER;RIGHT LEG ARTERIAL BYPASS, THEN BKA;CHF) Coronary Artery Disease, High Cholesterol, Hypertension, Peripheral Vascular Neurological: Yes Headaches /Migraines, Neuropathy Reproductive Disorders: No Genitourinary: Yes Prostate Problems, Renal Failure Gastrointestinal: Yes (ISCHEMIC BOWEL-S/P COLON RESECTION 03/2020 AND 10/2020) Colitis, Chronic Constipation, Chronic Diarrhea Musculoskeletal: Yes (RIGHT BKA FOR PVD AND DIABETIC FOOT ULCER/CHRONIC INFECTION) Amputee Endocrine: Yes Diabetes, Insulin dep HEENT: Yes Cataract, Macular Degeneration Loss of Vision: Denies Hearing Impairment: Hard of Hearing Cancer: No Psychosocial: Yes Depression Integumentary: Yes (CHRONIC WOUNDS/DIABETIC FOOT ULCER) Blood Disorders: No Adverse Reaction/Blood Tranf: No Family Medical History Diabetes mellitus GRANDMOTHER FH: leukemia G8 BROTHER Testicular cancer 19 FATHER No Pertinent Family Hx PT HAD COVID-19 IN OCTOBER 2020 AND WAS HOSPITALIZED--PROTRACTED HOSPITALIZATION WITH SEPTIC SHOCK, RESPIRATORY FAILURE AND ISCHEMIC BOWEL PT HAD SURGERY 11/03/20 FOR ISCHEMIC BOWEL AND INTERNAL HERNIA--HAD EXPLORATORY LAPAROTOMY WITH ILEO-COLONIC RESECTION BY DR. GREENBERG ADMITTED 01/30/21 FOR COLITIS AND ABDOMINAL WALL CELLULITIS CYSTOSCOPY 03/[address] MARINO Physical Exam Vital Signs Vital Signs - First Documented 09/23/21 09/23/21 13:35 15:14 Temp 36.3 Pulse 70 Resp 16 B/P (MAP) 96/58 (71) Pulse Ox 98 Capillary Refill : Less Than 3 Seconds Height, Weight, BMI Height: 5'9.00" Weight: 226lbs. 9.6oz. [id number]; 33.00 BMI Method:Stated Procedures/Interventions Date of ETT Placement: Nov 03, 2020 Progress/Results/Core Measures Suspected Sepsis SIRS Temperature: Pulse: 70 Respiratory Rate: 16 Laboratory Tests 09/23/21 14:20: White Blood Count 6.1 Blood Pressure 96 /58 Mean: 71 Laboratory Tests 09/23/21 14:20: Platelet Count 112L Results/Orders Lab Results Laboratory Tests Test 09/23/21 14:20 Range/Units White Blood Count 6.1 4.3-11.0 10^3/uL Red Blood Count 3.52 L 4.30-5.52 10^6/uL Hemoglobin 10.3 L 13.3-17.7 g/dL Hematocrit 34 L 40-54 % Mean Corpuscular Volume 96 80-99 fL Mean Corpuscular Hemoglobin 29 25-34 pg Mean Corpuscular Hemoglobin Concent 31 L 32-36 g/dL Red Cell Distribution Width 15.9 H 10.0-14.5 % Platelet Count 112 L 130-400 10^3/uL Mean Platelet Volume 10.8 9.0-12.2 fL Immature Granulocyte % (Auto) 0 % Neutrophils (%) (Auto) 76 H 42-75 % Lymphocytes (%) (Auto) 14 12-44 % Monocytes (%) (Auto) 7 0-12 % Eosinophils (%) (Auto) 2 0-10 % Basophils (%) (Auto) 1 0-10 % Neutrophils # (Auto) 4.6 1.8-7.8 X 10^3 Lymphocytes # (Auto) 0.8 L 1.0-4.0 X 10^3 Monocytes # (Auto) 0.4 0.0-1.0 X 10^3 Eosinophils # (Auto) 0.1 0.0-0.3 10^3/uL Basophils # (Auto) 0.0 0.0-0.1 10^3/uL Immature Granulocyte # (Auto) 0.0 0.0-0.1 10^3/uL My Orders Orders - DARLEEN FIELDS MD Cbc With Automated Diff (09/23/21 14:16) Vital Signs/I&O 09/23/21 09/23/21 13:35 15:14 Temp 36.3 Pulse 70 71 Resp 16 18 B/P (MAP) 96/58 (71) 121/70 Pulse Ox 98 Capillary Refill : Less Than 3 Seconds Blood Pressure Mean: 71 Progress Note : Progress Note Patient had no significant bleeding during his time in the ER. We did not disrupt his nasal mucosa with any interventions. He had not been using humidified oxygen. I contacted [facility] to ensure that they could provide him with equipment for humidifying his oxygen. I advised him to skip his Xarelto d ose tonight. We reviewed instructions on how to manage further nosebleed should it occur. See discharge instructions for further information and discussion. Departure Impression Primary Impression: Epistaxis Additional Impressions: Anticoagulated Atrial fibrillation Qualified Codes: I48.91 - Unspecified atrial fibrillation Disposition: 01 HOME, SELF-CARE Condition: Stable Departure-Patient Inst. Decision time for Depature: 15:00 Referrals: SKY MALIK MD, DAVID F MD (PCP/Family) Primary Care Physician Patient Instructions: Nosebleeds (DC) Add. Discharge Instructions: Skip tonight's dose of Xarelto. Please contact Dr. Parada's office and notify him of the nosebleed. If bleeding becomes uncontrolled, spray 2 strong squirts of Afrin (oxymetazoline) in each nostril and apply direct pressure to the nose in a pinching fashion with either a hand or the nasal clamps for 20 minutes. If bleeding does not stop, return to the ER. Consider following up with an ENT specialist such as Dr. Malik for evaluation of the nosebleed. Cautery may be possible if a specific a blood vessel can be pinpointed as the cause. See Dr. Malik's contact information below. Work with Tracy to humidify the oxygen. This will help prevent further nosebleeds. Return to the emergency room if bleeding becomes severe or if you develop secondary symptoms such as lightheadedness, increasing shortness of breath, etc. Call with questions or concerns. All discharge instructions reviewed with patient and/or family. Voiced understanding. DARLEEN FIELDS MD Sep 23, 2021 15:04
[2021-09-23 15:14] VITALS: BP 121/70
== END 2021-09-23 15:14 | disposition home or self-care (01) ==
LOC: EDUNIT# 13:29 → ER 13:30
DX: R04.0 Epistaxis (principal); I48.91 Unspecified atrial fibrillation; I10 Essential (primary) hypertension; E11.9 Type 2 diabetes mellitus without complications; F32.9 Major depressive disorder, single episode, unspecified; Z87.891 Personal history of nicotine dependence; Z79.01 Long term (current) use of anticoagulants; Z79.82 Long term (current) use of aspirin; Z79.4 Long term (current) use of insulin; Z79.899 Other long term (current) drug therapy
CPT/HCPCS: 36415; 85025

== ENCOUNTER 2021-10-02 09:22 | Inpatient (IN) | payer MEDICARE ==
[~2021-10-02] VITALS: Ht 172 cm; Wt 94.6 kg
[2021-10-02 10:42] LABS: BASOPHILS % (AUTO) 1 % (0-10); EOSINOPHILS # (AUTO) 0.2 10^3/uL (0.0-0.3); EOSINOPHILS % (AUTO) 3 % (0-10); HEMATOCRIT 30 % (40-54); LYMPHOCYTES # (AUTO) 1.4 10^3/uL (1.0-4.0); LYMPHOCYTES % (AUTO) 22 % (12-44); MEAN CORPUSCULAR HEMOGLOBIN 30 pg (25-34); MEAN CORPUSCULAR HGB CONC 30 g/dL (32-36); MEAN CORPUSCULAR VOLUME 97 fL (80-99); MONOCYTES # (AUTO) 0.5 10^3/uL (0.0-1.0); MONOCYTES % (AUTO) 8 % (0-12); NEUTROPHILS # (AUTO) 4.2 10^3/uL (1.8-7.8); NEUTROPHILS % (AUTO) 66 % (42-75); PLATELET COUNT 152 10^3/uL (130-400); WHITE BLOOD COUNT 6.3 10^3/uL (4.3-11.0)
--- NOTE | 2021-10-02 10:43 | ED Syncope ---
General Chief Complaint: Respiratory Problems Stated Complaint: SOB, LOW02 Nursing Triage Note: PT ARRIVES TO ER IN WITH FAMILY WITH C/O SOB SINCE GETTING IN THE TRUCK FOR AN APPT IN [place] THIS MORNING. PT SAID HE "BLACKED OUT" AFTER HE GOT IN THE TRUCK. PT ALSO SAID HE HAS HAD NOSE BLEEDS AND BLACK TARRY STOOLS SINCE STARTING XERELTO 2 WEEKS AGO FOR AFIB Source of Information: Patient Exam Limitations: No Limitations History of Present Illness Date Seen by Provider: Oct 02, 2021 Time Seen by Provider: 10:24 Initial Comments Patient to ER by private conveyance from home with his daughter with chief complaint that he was getting into his truck and wearing 3 L of oxygen as he typically does when after he got himself up he said he started to feel lightheaded and short of air like he was in a pass out. He did not pass out fall or strike his head. He says he felt things going dark. He was on his way to Dr. Parada, cardiology to discuss his blood thinner for atrial fibrillation. He has a pacemaker in place. He is on Xarelto but has had black stools and bruising and they were thinking about switching him over to Eliquis. He has not made that appointment because he came here instead. He typically lives on 3 to 4 L by nasal cannula. His daughter says for the past week he has been weak. He did take all his medications this morning. He is on atenolol, Lasix and insulin. His blood sugar was 124 this morning and nursing staff checked it when he arrived it was 132. Allergies and Home Medications Allergies Coded Allergies: No Known Drug Allergies (Verified , 10/15/09) Patient Home Medication List Home Medication List Reviewed: Yes Ascorbic Acid (Vitamin C) 500 Mg Capsule, 500 MG PO DAILY, (Reported) Entered as Reported by: TIMOTHY SPRING on 04/01/20 1339 Aspirin (Aspirin EC) 81 Mg Tablet.dr, 81 MG PO DAILY, (Reported) Entered as Reported by: REGAN LEVY on 11/04/20 1154 Atenolol (Atenolol) 25 Mg Tablet, 25 MG PO HS, (Reported) Entered as Reported by: TIMOTHY SPRING on 02/26/20 1332 Calcium Carbonate (Calcium) 600 Mg Tablet, 600 MG PO DAILY, (Reported) Entered as Reported by: TIMOTHY SPRING on 04/01/20 1339 Finasteride (Finasteride) 5 Mg Tablet, 5 MG PO HS, (Reported) Entered as Reported by: TIMOTHY SPRING on 02/26/20 1332 Fluoxetine HCl (Fluoxetine HCl) 20 Mg Capsule, 20 MG PO HS, (Reported) Entered as Reported by: TIMOTHY SPRING on 04/01/20 1339 Furosemide (Furosemide) 40 Mg Tablet, 40 MG PO HS, (Reported) Entered as Reported by: TIMOTHY SPRING on 01/31/21 1237 Gabapentin (Neurontin) 300 Mg Capsule, 300 MG PO BID, (Reported) Entered as Reported by: REGAN LEVY on 11/04/20 1155 Glucagon,Human Recombinant (Glucagon Emergency Kit) 1 Mg/Kit Soln, 1 MG IJ UD PRN for HYPOGLYCEMIA, (Reported) Entered as Reported by: TIMOTHY SPRING on 01/31/21 1243 Hydrocodone Bit/Acetaminophen (HYDROcodone/APAP 5 MG/325 MG TAB) 1 Tab Tab, 1 EA PO Q4H PRN for PAIN-MODERATE (5-7) Prescribed by: AGATHA PAZ on 02/04/21 1008 Insulin NPH Hum/Reg Insulin Hm (Humulin 70-30 Vial) 100 Unit/1 Ml Vial, 10 UNIT SQ BIDPC, (Reported) Entered as Reported by: TIMOTHY SPRING on 01/31/21 1237 Lorazepam (Ativan) 0.5 Mg Tablet, 0.5 MG PO BID PRN for ANXIETY, (Reported) Entered as Reported by: TIMOTHY SPRING on 01/31/21 1237 Multivit-Min/FA/Lycopene/Lut (Centrum Silver Tablet) 1 Each Tablet, 1 TAB PO DAILY, (Reported) Entered as Reported by: KRISHNA CANO on 09/01/15 1109 Tamsulosin HCl (Flomax) 0.4 Mg Cap, 0.4 MG PO BID, (Reported) Entered as Reported by: TIMOTHY SPRING on 01/31/21 1237 Review of Systems Constitutional: No chills, No diaphoresis EENTM: No ear discharge, No ear pain Respiratory: No cough, No phlegm; short of breath Cardiovascular: No chest pain, No palpitations Gastrointestinal: No abdominal pain, No nausea, No vomiting Genitourinary: No discharge, No dysuria Musculoskeletal: No back pain, No joint pain Skin: No pruritus, No rash Psychiatric/Neurological: Anxiety; Denies Depressed All Other Systems Reviewed Negative Unless Noted: Yes Past Gionrav-Pecuds-Iojsil Hx Patient Social History Tobacco Use?: No Smoking Status: Former Smoker Substance use?: No Alcohol Use?: No Pt feels they are or have been: No Immunizations Up To Date Tetanus Booster (TDap): Unknown Influenza Vaccine Up-to-Date: Yes; Up-to-Date First/Initial COVID19 Vaccinat: 02/16 Second COVID19 Vaccination Kwasi: 03/19 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[employer] Seasonal Allergies Seasonal Allergies: No Past Medical History Surgery/Hospitalization HX: IDDM, CABG, PPM, BOWEL RESECTION, ANXIETY, HTN Surgeries: Yes (CABG; RIGHT BKA; RIGHT LEG ARTERY BYPASS; PACEMAKER X 2;BOWEL RESECTION ) Abdominal, Amputation, Bowel Surgery, Cardiac, CABG, Eye Surgery, Joint Replacement, Orthopedic, Pacemaker, Vascular Surgery Respiratory: Yes (COVID-19 10/2020 WITH RESP FAILURE/SEPTIC SHOCK) Pneumonia, COPD Currently Using CPAP: No Currently Using BIPAP: No Cardiac: Yes (4 VESSEL CABG; PACEMAKER;RIGHT LEG ARTERIAL BYPASS, THEN BKA;CHF) Atrial Fibrillation, Coronary Artery Disease, High Cholesterol, Hypertension, Peripheral Vascular Neurological: Yes Headaches /Migraines, Neuropathy Reproductive Disorders: No Genitourinary: Yes Prostate Problems, Renal Failure Gastrointestinal: Yes (ISCHEMIC BOWEL-S/P COLON RESECTION 03/2020 AND 10/2020) Colitis, Chronic Constipation, Chronic Diarrhea Musculoskeletal: Yes (RIGHT BKA FOR PVD AND DIABETIC FOOT ULCER/CHRONIC IN FECTION) Amputee Endocrine: Yes Diabetes, Insulin dep HEENT: Yes Cataract, Macular Degeneration Loss of Vision: Denies Hearing Impairment: Hard of Hearing Cancer: No Psychosocial: Yes Depression Integumentary: Yes (CHRONIC WOUNDS/DIABETIC FOOT ULCER) Blood Disorders: No Adverse Reaction/Blood Tranf: No Family Medical History Diabetes mellitus GRANDMOTHER FH: leukemia G8 BROTHER Testicular cancer 19 FATHER No Pertinent Family Hx PT HAD COVID-19 IN OCTOBER 2020 AND WAS HOSPITALIZED--PROTRACTED HOSPITALIZATION WITH SEPTIC SHOCK, RESPIRATORY FAILURE AND ISCHEMIC BOWEL PT HAD SURGERY 11/03/20 FOR ISCHEMIC BOWEL AND INTERNAL HERNIA--HAD EXPLORATORY LAPAROTOMY WITH ILEO-COLONIC RESECTION BY DR. GREENBERG ADMITTED 01/30/21 FOR COLITIS AND ABDOMINAL WALL CELLULITIS CYSTOSCOPY 03/[address] MARINO Physical Exam Vital Signs Vital Signs - First Documented 10/02/21 09:30 Temp 35.8 Pulse 66 Resp 20 B/P (MAP) 117/42 (67) Pulse Ox 100 O2 Delivery Nasal Cannula O2 Flow Rate 5.00 Capillary Refill : Less Than 3 Seconds Height, Weight, BMI Height: 5'9.00" Weight: 226lbs. 9.6oz. 102.959627si; 33.00 BMI Method:Stated General Appearance: Obese, Other (Chronically ill) HEENT: PERRL/EOMI; No Moist Mucous Membranes (Dry oral mucosa) Neck: Full Range of Motion, Normal Inspection Cardiovascular: Regular Rate, Rhythm, No Edema, Normal Peripheral Pulses Respiratory: Lungs Clear, Accessory Muscle Use (Mild), Decreased Breath Sounds, Respiratory Distress (Chronic with oxygen saturations 98 to 100% on 3 L by nasal cannula) Gastrointestinal: Normal Bowel Sounds, Non Tender, Soft Extremities: Normal Capillary Refill, Pedal Edema (Left), Other (Right lower below the knee amputation) Neurologic/Psychiatric: Alert, Oriented x3, No Motor/Sensory Deficits, Normal 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, 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 Norm as Tested Cranial Nerves: Normal Hearing, Normal Speech, PERRL Motor/Sensory: No Motor Deficit, No Sensory Deficit Skin: Warm/Dry, Ecchymosis Procedures/Interventions Date of ETT Placement: Nov 03, 2020 Progress/Results/Core Measures Results/Orders Lab Results Laboratory Tests Test 10/02/21 09:40 10/02/21 09:58 10/02/21 10:47 Range/Units White Blood Count 6.3 4.3-11.0 10^3/uL Red Blood Count 3.05 L 4.30-5.52 10^6/uL Hemoglobin 9.0 L 13.3-17.7 g/dL Hematocrit 30 L 40-54 % Mean Corpuscular Volume 97 80-99 fL Mean Corpuscular Hemoglobin 30 25-34 pg Mean Corpuscular Hemoglobin Concent 30 L 32-36 g/dL Red Cell Distribution Width 16.5 H 10.0-14.5 % Platelet Count 152 130-400 10^3/uL Mean Platelet Volume 11.0 9.0-12.2 fL Immature Granulocyte % (Auto) 0 % Neutrophils (%) (Auto) 66 42-75 % Lymphocytes (%) (Auto) 22 12-44 % Monocytes (%) (Auto) 8 0-12 % Eosinophils (%) (Auto) 3 0-10 % Basophils (%) (Auto) 1 0-10 % Neutrophils # (Auto) 4.2 1.8-7.8 10^3/uL Lymphocytes # (Auto) 1.4 1.0-4.0 10^3/uL Monocytes # (Auto) 0.5 0.0-1.0 10^3/uL Eosinophils # (Auto) 0.2 0.0-0.3 10^3/uL Basophils # (Auto) 0.0 0.0-0.1 10^3/uL Immature Granulocyte # (Auto) 0.0 0.0-0.1 10^3/uL Sodium Level 142 135-145 MMOL/L Potassium Level 4.6 3.6-5.0 MMOL/L Chloride Level 101 98-107 MMOL/L Carbon Dioxide Level 29 21-32 MMOL/L Anion Gap 12 5-14 MMOL/L Blood Urea Nitrogen 50 H 7-18 MG/DL Creatinine 1.70 H 0.60-1.30 MG/DL Estimat Glomerular Filtration Rate 38 BUN/Creatinine Ratio 29 Glucose Level 134 H 70-105 MG/DL Calcium Level 8.9 8.5-10.1 MG/DL Corrected Calcium 9.2 8.5-10.1 MG/DL Total Bilirubin 1.0 0.1-1.0 MG/DL Aspartate Amino Transf (AST/SGOT) 25 5-34 U/L Alanine Aminotransferase (ALT/SGPT) 16 0-55 U/L Alkaline Phosphatase 112 40-136 U/L Troponin I 0.052 H <0.028 NG/ML B-Type Natriuretic Peptide 746.7 H <100.0 PG/ML Total Protein 6.7 6.4-8.2 GM/DL Albumin 3.6 3.2-4.5 GM/DL Glucometer 132 H 70-110 MG/DL Blood Gas Puncture Site RT RAD Blood Gas Patient Temperature 35.8 Arterial Blood pH 7.35 L 7.37-7.43 Arterial Blood Partial Pressure CO2 59 H 35-45 MMHG Arterial Blood Partial Pressure O2 80 79-93 MMHG Arterial Blood HCO3 33 H 23-27 MMOL/L Arterial Blood Total CO2 34.6 H 21.0-31.0 MMOL/L Arterial Blood Oxygen Saturation 97 94-100 % Arterial Blood Base Excess 7.0 H -2.5-2.5 MMOL/L Louie Test YES-POS Blood Gas Ventilator Setting NO Blood Gas Inspired Oxygen 3 L/5 % My Orders Orders - ANTHONY ELLSWORTH Ekg Tracing (10/02/21 09:58) Continuous Ekg Monitoring (10/02/21 09:58) Arterial Blood Gas (10/02/21 10:31) Orthostatic Vital Signs (Adult (10/02/21 10:31) Cbc With Automated Diff (10/02/21 10:31) Comprehensive Metabolic Panel (10/02/21 10:31) Accucheck Stat ONCE (10/02/21 10:31) Chest 1 View, Ap/Pa Only (10/02/21 10:31) Troponin I (10/02/21 10:31) BNP (10/02/21 10:31) Furosemide Injection (Lasix Injection) (10/02/21 12:15) Vital Signs/I&O 10/02/21 10/02/21 10/02/21 09:30 09:58 11:02 Temp 35.8 Pulse 66 70 70 74 Resp 20 B/P (MAP) 117/42 (67) 116/53 (74) 101/61 (74) 97/71 (80) Pulse Ox 100 O2 Delivery Nasal Cannula Nasal Cannula O2 Flow Rate 5.00 5.00 5.00 Blood Pressure Mean: 67 Progress Progress Note #1: Time: 10:42 Progress Note He is doing okay on oxygen saturation on his baseline. We will check some labs to see if he is anemic. We will get a chest x-ray and BNP as well as an ABG. I suspect that he overdid it with his exertion getting into the truck and may have become a hypoxemic as well since he is dry appearing he may be a little orthostatic. We will do a set of orthostatic vital signs. I would be very cautious to give him a little IV fluids if he is indeed orthostatic. Progress Note #2: Time: 11:30 Progress Note Orthostats are borderline positive. He does have a little bit of pleural effusion which may also be contributing to his feeling of shortness of air. His oxygen saturations have remained 99 to 100% on his baseline oxygen. Baseline BNP runs 100-300 and today he is 750. We discussed the case with Dr. Greenberg to see if he would benefit from pleurocentesis and he would prefer the patient to be off the blood thinners least 2 days. Ultrasound of the chest to look for a fluid collection. Plan to trial some CPAP at 7 followed by BiPAP if he tolerates that to help out with his hypercapnia and heart failure. Initial ECG Impression Date: Oct 02, 2021 Initial ECG Impression Time: 09:55 Initial ECG Rate: 72 Initial ECG Intervals: QT (501) Initial ECG Impression: Nonspecific Changes Initial ECG Comparisson: Unchanged Comment AV paced rhythm without relevant changes. Diagnostic Imaging Diagonstic Imaging: Xray Plain Films/CT/US/NM/MRI: chest Comments [facility], [place] NAME: JOSE ADKINS [facility] REC#: [id number] PT STATUS: REG ER : 1935 PHYSICIAN: ANTHONY ELLSWORTH MD ADMIT DATE: 10/02/21/ER Draft Date of Exam:10/02/21 CHEST 1 VIEW, AP/PA ONLY HISTORY: Shortness of air, syncope COMPARISON: 01/30/2021 FINDINGS: There is a single frontal view of the chest. There are small bilateral pleural effusions which are increased since the prior exam. There is associated bibasilar atelectasis. There is cardiomegaly which appears stable. Mild airspace opacities are seen in the upper lobes. No pneumothorax is seen. Sternotomy wires are noted. Left-sided pacemaker leads appear normal. IMPRESSION: 1. Small bilateral pleural effusions, increased since the prior exam. 2. Airspace opacities in the upper lobes, may be due to edema or infection. Dictated on workstation # [id number] Dict: 10/02/21 1106 Trans: 10/02/21 1112 CV [id number] Interpreted by: ELPIDIO DANIELS MD Electronically signed by: Reviewed: Reviewed by Me Departure Communication (Admissions) Time/Spoke to Admitting Phy: 11:55 Dr. Paz agrees to admit the patient with consultation to cardiology. We discussed Dr. Greenberg's offer to hold Xarelto and perform pleurocentesis if necessary in 2 days. Time/Spoke to Consulting Phy: 12:00 Discussed the case with Dr. Nur and he agrees to give cardiac consultation. He recommends 80 mg Lasix IV now and daily. He is okay with holding Xarelto for couple days. Impression Primary Impression: Near syncope Additional Impressions: Acute on chronic respiratory failure with hypoxia and hypercapnia Acute exacerbation of CHF (congestive heart failure) Qualified Codes: I50.9 - Heart failure, unspecified Disposition: ADMITTED INPATIENT Condition: Stable Admissions Decision to Admit Reason: Admit from ER (General) Decision to Admit/Date: Oct 02, 2021 Time/Decision to Admit Time: 11:41 Departure-Patient Inst. Referrals: SHIRA PATTEN MD (PCP/Family) Primary Care Physician ANTHONY ELLSWORTH Oct 02, 2021 10:42
[2021-10-02 10:52] LABS: ALBUMIN 3.6 GM/DL (3.2-4.5); CALCIUM 8.9 MG/DL (8.5-10.1); CREATININE SERUM 1.7 MG/DL (0.60-1.30); POTASSIUM 4.6 MMOL/L (3.6-5.0); TOTAL PROTEIN 6.7 GM/DL (6.4-8.2)
[2021-10-02 10:53] LABS: ABG OXYGEN SATURATION 97 % (94-100); ABG PCO2 59 MMHG (35-45); ABG PH 7.35 (7.37-7.43); ABG PO2 80 MMHG (79-93); ABG TCO2 34.6 MMOL/L (21.0-31.0)
[2021-10-02 10:54] LABS: ALLENS TEST YES-POS
[2021-10-02 10:55] LABS: INSPIRED O2 3 L/5 %; PATIENT TEMP 35.8; VENTILATOR NO
[2021-10-02 11:02] VITALS: BP_SYST 101; BP_SYST 116; BP_SYST 97; BP_DIAS 53; BP_DIAS 61; BP_DIAS 71
--- NOTE | 2021-10-02 11:12 | Diagnostic Imaging Report ---
HISTORY: Shortness of air, syncope COMPARISON: 01/30/2021 FINDINGS: There is a single frontal view of the chest. There are small bilateral pleural effusions which are increased since the prior exam. There is associated bibasilar atelectasis. There is cardiomegaly which appears stable. Mild airspace opacities are seen in the upper lobes. No pneumothorax is seen. Sternotomy wires are noted. Left-sided pacemaker leads appear normal. IMPRESSION: 1. Small bilateral pleural effusions, increased since the prior exam. 2. Airspace opacities in the upper lobes, may be due to edema or infection. Dictated by: Dictated on workstation # [id number]
--- NOTE | 2021-10-02 12:11 | Consultation-Cardiology ---
HPI-Cardiology Cardiology Consultation: Date of Consultation 10/02/21 Time Seen by a Provider: 13:20 Date of Admission 10-02-21 Attending Physician Admitting Physician Trever Rawls MD Consulting Physician Estefani Nur MD Primary Ski Production Supervisor: Dr. Parada at [facility] [place] HPI: Chief Complaint: Near syncope Mr. Adkins is an 86 yr old male admitted to 509 from the ED with report of near syncopal episode. Pt is currently on Bi-pap making communication difficult. Daughter and son-in-law are with him. He lives with them. Daughter reports he was transferring from his w/c into the truck this morning to go see Dr. Parada, his primary drywall finisher foreman, at [facility]. She states he had his oxygen on and when he got into the truck he reported to them he felt as though he might pass out, but did not. They decided to bring him to the ED. Daughter states he was started on Xarelto approx 3 weeks ago after he was diagnosed with PAF at time of pacemaker interrogation. She states since starting Xarelto he has felt unwell. She reports he has been c/o chest tightness and SOB with any exertional activity. She reports he had only been wearing oxygen at bedtime, but recently has been wearing it all day at 4L/NC. She reports he has had dark, tarry bowel movements. She reports he has had poor appetite recently. They report he has c/o increasing fatigue and weakness. He is not reporting any chest pain at this time, but continues to feel SOB. 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 Family Medical History Family Medical History: He reports his father CAD with an [facility] in his later years. He reports his mother had CAD. He reports a son who had CAD, unsure of age of diagnosis. Family History: Diabetes mellitus GRANDMOTHER FH: leukemia G8 BROTHER Testicular cancer 19 FATHER Allergies and Home Medications Allergies Coded Allergies: No Known Drug Allergies (Verified , 10/15/09) Patient Home Medication List Ascorbic Acid (Vitamin C) 500 Mg Capsule, 500 MG PO DAILY, (Reported) Entered as Reported by: TIMOTHY SPRING on 04/01/201338 Last Action: Converted Aspirin (Aspirin EC) 81 Mg Tablet.dr, 81 MG PO DAILY, (Reported) Entered as Reported by: REGAN LEVY on 11/04/20 1154 Last Action: Continued Atenolol (Atenolol) 25 Mg Tablet, 25 MG PO 1800, (Reported) Entered as Reported by: TIMOTHY SPRING on 02/26/20 133 Last Action: Continued Calcium Carbonate (Calcium) 600 Mg Tablet, 600 MG PO DAILY, (Reported) Entered as Reported by: TIMOTHY SPRING on 04/01/20 133 Last Action: Continued Finasteride (Finasteride) 5 Mg Tablet, 5 MG PO 1800, (Reported) Entered as Reported by: TIMOTHY SPRING on 02/26/20 1332 Last Action: Continued Fluoxetine HCl (Fluoxetine HCl) 20 Mg Capsule, 20 MG PO 1800, (Reported) Entered as Reported by: TIMOTHY SPRING on 04/01/20 1339 Last Action: Continued Furosemide (Furosemide) 40 Mg Tablet, 80 MG PO DAILY, (Reported) Entered as Reported by: TIMOTHY SPRING on 01/31/21 1237 Last Action: Held Gabapentin (Neurontin) 300 Mg Capsule, 300 MG PO BID, (Reported) Entered as Reported by: REGAN LEVY on 11/04/20 1155 Last Action: Continued Glucagon,Human Recombinant (Glucagon Emergency Kit) 1 Mg/Kit Soln, 1 MG IJ UD PRN for HYPOGLYCEMIA, (Reported) Entered as Reported by: TIMOTHY SPRING on 01/31/21 1243 Last Action: Held Hydrocodone/Acetaminophen (Hydrocodone-Acetamin 5-325 mg) 1 Each Tablet, 1 EA PO BID PRN for PAIN-MODERATE (5-7), (Reported) Entered as Reported by: TIMOTHY SPRING on 10/02/21 1503 Last Action: Continued Insulin NPH Hum/Reg Insulin Hm (Humulin 70-30 Vial) 100 Unit/1 Ml Vial, 10-15 UNIT SQ BIDPC, (Reported) Entered as Reported by: TIMOTHY SPRING on 01/31/21 123 Last Action: Continued Lisinopril (Lisinopril) 20 Mg Tablet, 20 MG PO DAILY, (Reported) Entered as Reported by: TIMOTHY SPRING on 10/02/21 145 Last Action: Continued Lorazepam (Ativan) 0.5 Mg Tablet, 0.5 MG PO DAILY, (Reported) Entered as Reported by: TIMOTHY SPRING on 01/31/211236 Last Action: Continued Multivit-Min/FA/Lycopene/Lut (Centrum Silver Tablet) 1 Each Tablet, 1 TAB PO DAILY, (Reported) Entered as Reported by: KRISHNA CANO on 09/01/15 1109 Last Action: Converted Rivaroxaban (Xarelto) 20 Mg Tablet, 20 MG PO 1800, (Reported) Entered as Reported by: TIMOTHY SPRING on 10/02/211451 Last Action: Continued Tamsulosin HCl (Flomax) 0.4 Mg Cap, 0.4 MG PO BID, (Reported) Entered as Reported by: TIMOTHY SPRING on 01/31/211236 Last Action: Continued Discontinued Medications Hydrocodone Bit/Acetaminophen (HYDROcodone/APAP 5 MG/325 MG TAB) 1 Tab Tab, 1 EA PO Q4H PRN for PAIN-MODERATE (5-7) Discontinued Reason: Duplicate Order Prescribed by: AGATHA PAZ on 02/04/21 1008 Last Action: Discontinued Physical Exam-Cardiology Physical Exam Vital Signs/I&O 10/03/21 10/03/21 10/03/21 10/03/21 00:00 01:00 02:36 04:00 Temp 36.6 36.6 Pulse 70 70 70 74 Resp 30 22 17 B/P (MAP) 130/63 (85) 99/33 (55) Pulse Ox 96 95 96 O2 Delivery NIV CPAP NIV CPAP O2 Flow Rate 60.00 30.00 60.00 10/03/21 10/03/21 10/03/21 10/03/21 06:46 07:00 07:53 09:00 Temp 36.1 Pulse 70 70 70 Resp 20 20 B/P (MAP) 102/37 (58) Pulse Ox 93 95 94 O2 Delivery NIV CPAP NIV CPAP O2 Flow Rate 30.00 60.00 FiO2 30 10/03/21 00:00 Intake Total 150 ml Output Total 2500 ml Balance -2350 ml Capillary Refill : Less Than 3 Seconds Constitutional: AAO x 3, well-developed, well-nourished HEENT: PERRL, hearing is well preserved, oral hygience is good Neck: No carotid bruit; carotid pulses are 2 + bilaterally Respiratory: chest expansion is symmetric, chest is bilaterally symmetric, other (diminished bilat lower lobes) Cardiovascular: regular rate-rhythm; No JVD; S1 and S2, systolic murmur Gastrointestinal: No tender; soft, round; No guarding Extremities: other (R BKA), no lower extremity edema bilateral Neurologic/Psychiatric: grossly intact (moves all extremities) Skin: other (dressing to LLE) Data Review Labs Laboratory Tests 10/02/21 10:47: Blood Gas Puncture Site RT RAD, Blood Gas Patient Temperature 35.8, Arterial Blood pH 7.35L, Arterial Blood Partial Pressure CO2 59H, Arterial Blood Partial Pressure O2 80, Arterial Blood HCO3 33H, Arterial Blood Total CO2 34.6H, Arterial Blood Oxygen Saturation 97, Arterial Blood Base Excess 7.0H, Louie Test YES-POS, Blood Gas Ventilator Setting NO, Blood Gas Inspired Oxygen 3 L/5 % 10/02/21 16:11: Glucometer 116H 10/02/21 17:00: Troponin I 0.042H 10/02/21 20:18: Glucometer 137H 10/03/21 05:49: Glucometer 218H 10/03/21 05:50: White Blood Count 5.0, Red Blood Count 2.67L, Hemoglobin 7.8L, Hematocrit 26L, Mean Corpuscular Volume 96, Mean Corpuscular Hemoglobin 29, Mean Corpuscular Hemoglobin Concent 31L, Red Cell Distribution Width 16.8H, Platelet Count 136, Mean Platelet Volume 10.6, Immature Granulocyte % (Auto) 0, Neutrophils (%) (Auto) 69, Lymphocytes (%) (Auto) 19, Monocytes (%) (Auto) 11, Eosinophils (%) (Auto) 1, Basophils (%) (Auto) 1, Neutrophils # (Auto) 3.5, Lymphocytes # (Auto) 0.9L, Monocytes # (Auto) 0.5, Eosinophils # (Auto) 0.1, Basophils # (Auto) 0.0, Immature Granulocyte # (Auto) 0.0, Sodium Level 141, Potassium Level 4.3, Chloride Level 100, Carbon Dioxide Level 30, Anion Gap 11, Blood Urea Nitrogen 54H, Creatinine 1.78H, Estimat Glomerular Filtration Rate 36, BUN/Creatinine Ratio 30, Glucose Level 231H, Calcium Level 8.4L, Magnesium Level 2.1 Radiology NAME: JOSE ADKINS [facility] REC#: [id number] PT STATUS: REG ER : 1934 PHYSICIAN: ANTHONY ELLSWORTH MD ADMIT DATE: 10/02/21/ER Signed Date of Exam:10/02/21 CHEST 1 VIEW, AP/PA ONLY HISTORY: Shortness of air, syncope COMPARISON: 01/30/2021 FINDINGS: There is a single frontal view of the chest. There are small bilateral pleural effusions which are increased since the prior exam. There is associated bibasilar atelectasis. There is cardiomegaly which appears stable. Mild airspace opacities are seen in the upper lobes. No pneumothorax is seen. Sternotomy wires are noted. Left-sided pacemaker leads appear normal. IMPRESSION: 1. Small bilateral pleural effusions, increased since the prior exam. 2. Airspace opacities in the upper lobes, may be due to edema or infection. 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 Parada his primary drywall finisher foreman PAF - family reports diagnosed 3 weeks ago - OAC with Xarelto H/O R BKA - per pt it was done at the time of CABG - details unknown Open colon resection on 04-03-[address] Henderson d/t ischemic colon DM 2 HTN HLD Macular degeneration Tobaccoism - smokes cigars Prob COPD BPH with urinary retention and hematuria - managed per Dr. Sal Discussion and Recomendations Near syncope of undetermined etiology - interrogate device Acute on chronic systolic CHF - treat with diuretics CKD 3 - monitor lab closely Melena reported by pt and family - management per medical services PAF - continue OAC with Xarelto - reduced dose d/t renal function Echocardiogram to eval structure and function Replace electrolytes as indicated Request records from Dr. Parada We would like to thank medical services for this consult Further recs will be based on his hospital course TRACIE NAIK Oct 02, 2021 12:11
[2021-10-02] MEDS ORDERED: FUROSEMIDE 40 MG/4 ML INJ (LASIX) IVP ONE (12:15)
--- NOTE | 2021-10-02 13:23 | Consultation - Surgery ---
TULIO MCGARRY 10/02/21 1323: History of Present Illness History of Present Illness Patient Consulted On(hebert/time) 10/02/21 13:16 Time Seen by Provider: 13:00 History of Present Illness Mr. Keene is an 86yo M with past medical history of type 2 diabetes mellitus, CHF, CAD who presented to the ED with his daughter with symptoms of near syncope. Mr. Keene was unable to communicate well due to CPAP and therefore his daughter provided the communication. She stated that he got into his truck today and nearly passed out. He did not hit his head nor fall. She stated he has been more tired and unable to sleep well as of the last 3 weeks when he started Xarelto per Dr. Parada at . They were on their way to an appointment due to recent black stools since starting Xarelto when this all began . She states this has never happened before but he has recently had to up his home oxygen from 3L to 6L. He also complains of chest tightness. Allergies and Home Medications Allergies Coded Allergies: No Known Drug Allergies (Verified , 10/15/09) Patient Home Medication List Ascorbic Acid (Vitamin C) 500 Mg Capsule, 500 MG PO DAILY, (Reported) Entered as Reported by: TIMOTHY SPRING on 04/01/201338 Last Action: Reviewed Aspirin (Aspirin EC) 81 Mg Tablet., 81 MG PO DAILY, (Reported) Entered as Reported by: REGAN LEVY on 11/04/20 1154 Last Action: Reviewed Atenolol (Atenolol) 25 Mg Tablet, 25 MG PO 1800, (Reported) Entered as Reported by: TIMOTHY SPRING on 02/26/201331 Last Action: Reviewed Calcium Carbonate (Calcium) 600 Mg Tablet, 600 MG PO DAILY, (Reported) Entered as Reported by: TIMOTHY SPRING on 04/01/201338 Last Action: Reviewed Finasteride (Finasteride) 5 Mg Tablet, 5 MG PO 1800, (Reported) Entered as Reported by: TIMOTHY SPRING on 02/26/201331 Last Action: Reviewed Fluoxetine HCl (Fluoxetine HCl) 20 Mg Capsule, 20 MG PO 1800, (Reported) Entered as Reported by: TIMOTHY SPRING on 04/01/201338 Last Action: Reviewed Furosemide (Furosemide) 40 Mg Tablet, 80 MG PO DAILY, (Reported) Entered as Reported by: TIMOTHY SPRING on 01/31/21 123 Last Action: Reviewed Gabapentin (Neurontin) 300 Mg Capsule, 300 MG PO BID, (Reported) Entered as Reported by: REGAN LEVY on 11/04/20 1155 Last Action: Reviewed Glucagon,Human Recombinant (Glucagon Emergency Kit) 1 Mg/Kit Soln, 1 MG IJ UD PRN for HYPOGLYCEMIA, (Reported) Entered as Reported by: TIMOTHY SPRING on 01/31/21 1243 Last Action: Reviewed Hydrocodone/Acetaminophen (Hydrocodone-Acetamin 5-325 mg) 1 Each Tablet, 1 EA PO BID PRN for PAIN-MODERATE (5-7), (Reported) Entered as Reported by: TIMOTHY SPRING on 10/02/21 1503 Last Action: Reviewed Insulin NPH Hum/Reg Insulin Hm (Humulin 70-30 Vial) 100 Unit/1 Ml Vial, 10-15 UNIT SQ BIDPC, (Reported) Entered as Reported by: TIMOTHY SPRING on 01/31/211236 Last Action: Reviewed Lisinopril (Lisinopril) 20 Mg Tablet, 20 MG PO DAILY, (Reported) Entered as Reported by: TIMOTHY SPRING on 10/02/21 145 Last Action: Reviewed Lorazepam (Ativan) 0.5 Mg Tablet, 0.5 MG PO DAILY, (Reported) Entered as Reported by: TIMOTHY SPRING on 01/31/21 123 Last Action: Reviewed Multivit-Min/FA/Lycopene/Lut (Centrum Silver Tablet) 1 Each Tablet, 1 TAB PO ORALIA LY, (Reported) Entered as Reported by: KRISHNA CANO on 09/01/15 1109 Last Action: Reviewed Rivaroxaban (Xarelto) 20 Mg Tablet, 20 MG PO 1800, (Reported) Entered as Reported by: TIMOTHY SPRING on 10/02/21 145 Last Action: Reviewed Tamsulosin HCl (Flomax) 0.4 Mg Cap, 0.4 MG PO BID, (Reported) Entered as Reported by: TIMOTHY SPRING on 01/31/21 123 Last Action: Reviewed Discontinued Medications Hydrocodone Bit/Acetaminophen (HYDROcodone/APAP 5 MG/325 MG TAB) 1 Tab Tab, 1 EA PO Q4H PRN for PAIN-MODERATE (5-7) Discontinued Reason: Duplicate Order Prescribed by: AGATHA PAZ on 02/04/21 1008 Last Action: Discontinued Past Qqkjeao-Syxauc-Cnrozg Hx Patient Social History Smoking Status: Former Smoker Type Used: Cigars, Cigarettes (quit 20 years ago ) Recent Hopitalizations: Yes Alcohol Use?: No Immunizations Up To Date Tetanus Booster (TDap): Unknown Date of Pneumonia Vaccine: Sep 29, 2012 Surgeries History of Surgeries: Yes (CABG; RIGHT BKA; RIGHT LEG ARTERY BYPASS; PACEMAKER X 2;BOWEL RESECTION ) Surgeries: Abdominal, Amputation, Bowel Surgery, Cardiac, CABG, Joint Replacement, Orthopedic, Pacemaker, Vascular Surgery Respiratory History of Respiratory Disorde: Yes (COVID-19 10/2020 WITH RESP FAILURE/SEPTIC SHOCK) Respiratory Disorders: COPD Cardiovascular History of Cardiac Disorders: Yes (4 VESSEL CABG; PACEMAKER;RIGHT LEG ARTERIAL BYPASS, THEN BKA;CHF) Cardiac Disorders: Atrial Fibrillation, Chronic Edema/Swelling, Coronary Artery Disease, High Cholesterol, Hypertension, Peripheral Vascular Genitourinary History of Genitourinary Disor: Yes Genitourinary Disorders: Benign Prostatic Hyperpl, Prostate Problems Gastrointestinal History of Gastrointestinal Di: Yes (ISCHEMIC BOWEL-S/P COLON RESECTION 03/2020 AND 10/2020) Gastrointestinal Disorders: Colitis, Chronic Constipation, Chronic Diarrhea Musculoskeletal History of Musculoskeletal Dis: Yes (RIGHT BKA FOR PVD AND DIABETIC FOOT ULCER/CHRONIC INFECTION) Musculoskeletal Disorders: Amputee Endocrine History of Endocrine Disorders: Yes Endocrine Disorders: Diabetes, Insulin dep HEENT Hearing Impairment: Hard of Hearing Cancer History of Cancer: No Blood Transfusions Adverse Reaction to a Blood Tr: No Family Medical History Significant Family History: No Pertinent Family Hx, Heart Disease, CAD Over 55 Years Old, Vascular Disease Family Medial History: Diabetes mellitus GRANDMOTHER FH: leukemia G8 BROTHER Testicular cancer 19 FATHER Review of Systems-General Constitutional: No chills, No fever; weakness EENTM: hearing loss; No blurred vision Respiratory: dyspnea on exertion, short of breath Cardiovascular: No chest pain; edema Gastrointestinal: No abdominal pain, No diarrhea; melena; No nausea, No vomiti ng Genitourinary: No frequency, No hematuria Musculoskeletal: No joint pain, No joint swelling Skin: No change in color, No dryness Psychiatric/Neurological: Denies Headache, Denies Numbness; Tremors Physical Exam-General Problems Physical Exam Vital Signs Vital Signs - First Documented 10/02/21 09:30 Temp 35.8 Pulse 66 Resp 20 B/P (MAP) 117/42 (67) Pulse Ox 100 O2 Delivery Nasal Cannula O2 Flow Rate 5.00 Capillary Refill : Less Than 3 Seconds General Appearance: WD/WN, no apparent distress HEENT: PERRL/EOMI, normal ENT inspection Neck: non-tender, normal inspection Respiratory: chest non-tender, no respiratory distress, no accessory muscle use, decreased breath sounds, wheezing Cardiovascular: irregularly irregular Peripheral Pulses: 1+ Radial Pulses (R), 1+ Radial Pulses (L) Gastrointestinal: non tender, soft, no organomegaly Extremities: non-tender, normal capillary refill, pedal edema, swelling, other (Diffuse echymosis) Neurologic/Psychiatric: no motor/sensory deficits, normal mood/affect Skin: warm/dry, ecchymosis Data Review Labs Laboratory Tests 10/02/21 09:40: White Blood Count 6.3, Red Blood Count 3.05L, Hemoglobin 9.0L, Hematocrit 30L, Mean Corpuscular Volume 97, Mean Corpuscular Hemoglobin 30, Mean Corpuscular Hemoglobin Concent 30L, Red Cell Distribution Width 16.5H, Platelet Count 152, Mean Platelet Volume 11.0, Immature Granulocyte % (Auto) 0, Neutrophils (%) (Auto) 66, Lymphocytes (%) (Auto) 22, Monocytes (%) (Auto) 8, Eosinophils (%) (Auto) 3, Basophils (%) (Auto) 1, Neutrophils # (Auto) 4.2, Lymphocytes # (Auto) 1.4, Monocytes # (Auto) 0.5, Eosinophils # (Auto) 0.2, Basophils # (Auto) 0.0, Immature Granulocyte # (Auto) 0.0, Sodium Level 142, Potassium Level 4.6, Chloride Level 101, Carbon Dioxide Level 29, Anion Gap 12, Blood Urea Nitrogen 50H, Creatinine 1.70H, Estimat Glomerular Filtration Rate 38, BUN/Creatinine Ratio 29, Glucose Level 134H, Calcium Level 8.9, Corrected Calcium 9.2, Total Bilirubin 1.0, Aspartate Amino Transf (AST/SGOT) 25, Alanine Aminotransferase (ALT/SGPT) 16, Alkaline Phosphatase 112, Troponin I 0.052H, B-Type Natriuretic Peptide 746.7H, Total Protein 6.7, Albumin 3.6 10/02/21 09:58: Glucometer 132H 10/02/21 10:47: Blood Gas Puncture Site RT RAD, Blood Gas Patient Temperature 35.8, Arterial Blood pH 7.35L, Arterial Blood Partial Pressure CO2 59H, Arterial Blood Partial Pressure O2 80, Arterial Blood HCO3 33H, Arterial Blood Total CO2 34.6H, Arterial Blood Oxygen Saturation 97, Arterial Blood Base Excess 7.0H, Louie Test YES-POS, Blood Gas Ventilator Setting NO, Blood Gas Inspired Oxygen 3 L/5 % Radiology 1. Small bilateral pleural effusions, increased since the prior exam. 2. Airspace opacities in the upper lobes, may be due to edema or infection Assessment/Plan Assessment/Plan Assessment/Plan Disposition: admit to ICU 1. Near syncope 2. Acute CHF exacerbation with bilateral pleural effusions Consider thoracentesis CPAP Lasix 40mg 3. Anemia Monitor CBC, consider EGD to r/o NEHAL EVANS DO 10/02/21 184: History of Present Illness History of Present Illness Date Seen by Provider: Oct 02, 2021 History of Present Illness Patient is a 6-year-old male known to me who had near syncopal episode. Patient has continued a low bit weaker. He is having breathing difficulty. Patient requi ring CPAP at this time. He has been having melanotic stools recently this was after starting Xarelto. He had increase his home oxygen rate. Patient having difficulty discussing due to the CPAP. Patient on chest x-ray having bilateral small pleural effusions. Asked to possibly do thoracentesis if needed. Allergies and Home Medications Allergies Coded Allergies: No Known Drug Allergies (Verified , 10/15/09) Patient Home Medication List Home Medication List Reviewed: Yes Ascorbic Acid (Vitamin C) 500 Mg Capsule, 500 MG PO DAILY, (Reported) Entered as Reported by: TIMOTHY SPRING on 04/01/20 1339 Last Action: Reviewed Aspirin (Aspirin EC) 81 Mg Tablet.dr, 81 MG PO DAILY, (Reported) Entered as Reported by: REGAN LEVY on 11/04/20 1154 Last Action: Reviewed Atenolol (Atenolol) 25 Mg Tablet, 25 MG PO 1800, (Reported) Entered as Reported by: TIMOTHY SPRING on 02/26/20 1332 Last Action: Reviewed Calcium Carbonate (Calcium) 600 Mg Tablet, 600 MG PO DAILY, (Reported) Entered as Reported by: TIMOTHY SPRING on 04/01/20 1339 Last Action: Reviewed Finasteride (Finasteride) 5 Mg Tablet, 5 MG PO 1800, (Reported) Entered as Reported by: TIMOTHY SPRING on 02/26/20 1332 Last Action: Reviewed Fluoxetine HCl (Fluoxetine HCl) 20 Mg Capsule, 20 MG PO 1800, (Reported) Entered as Reported by: TIMOTHY SPRING on 04/01/20 133 Last Action: Reviewed Furosemide (Furosemide) 40 Mg Tablet, 80 MG PO DAILY, (Reported) Entered as Reported by: TIMOTHY SPRING on 01/31/21 1237 Last Action: Reviewed Gabapentin (Neurontin) 300 Mg Capsule, 300 MG PO BID, (Reported) Entered as Reported by: REGAN LEVY on 11/04/20 1155 Last Action: Reviewed Glucagon,Human Recombinant (Glucagon Emergency Kit) 1 Mg/Kit Soln, 1 MG IJ UD PRN for HYPOGLYCEMIA, (Reported) Entered as Reported by: TIMOTHY SPRING on 01/31/21 1243 Last Action: Reviewed Hydrocodone/Acetaminophen (Hydrocodone-Acetamin 5-325 mg) 1 Each Tablet, 1 EA PO BID PRN for PAIN-MODERATE (5-7), (Reported) Entered as Reported by: TIMOTHY SPRING on 10/02/21 1503 Last Action: Reviewed Insulin NPH Hum/Reg Insulin Hm (Humulin 70-30 Vial) 100 Unit/1 Ml Vial, 10-15 UNIT SQ BIDPC, (Reported) Entered as Reported by: TIMOTHY SPRING on 01/31/21 1237 Last Action: Reviewed Lisinopril (Lisinopril) 20 Mg Tablet, 20 MG PO DAILY, (Reported) Entered as Reported by: TIMOTHY SPRING on 10/02/21 1452 Last Action: Reviewed Lorazepam (Ativan) 0.5 Mg Tablet, 0.5 MG PO DAILY, (Reported) Entered as Reported by: TIMOTHY SPRING on 01/31/21 1237 Last Action: Reviewed Multivit-Min/FA/Lycopene/Lut (Centrum Silver Tablet) 1 Each Tablet, 1 TAB PO DAILY, (Reported) Entered as Reported by: KRISHNA CANO on 09/01/15 1109 Last Action: Reviewed Rivaroxaban (Xarelto) 20 Mg Tablet, 20 MG PO 1800, (Reported) Entered as Reported by: TIMOTHY SPRING on 10/02/21 1452 Last Action: Reviewed Tamsulosin HCl (Flomax) 0.4 Mg Cap, 0.4 MG PO BID, (Reported) Entered as Reported by: TIMOTHY SPRING on 01/31/21 1237 Last Action: Reviewed Discontinued Medications Hydrocodone Bit/Acetaminophen (HYDROcodone/APAP 5 MG/325 MG TAB) 1 Tab Tab, 1 EA PO Q4H PRN for PAIN-MODERATE (5-7) Discontinued Reason: Duplicate Order Prescribed by: AGATHA PAZ on 02/04/21 1008 Last Action: Discontinued Past Oqdjdct-Aesria-Bagbtf Hx Reviewed Nursing Assessment Reviewed/Agree w Nursing PMH: Yes Family Medical History Family Medial History: Diabetes mellitus GRANDMOTHER FH: leukemia G8 BROTHER Testicular cancer 19 FATHER Review of Systems-General ROS-Unable to Obtain: Difficult to obtain due to patient being on CPAP Constitutional: weakness Respiratory: dyspnea on exertion, short of breath Cardiovascular: No chest pain Gastrointestinal: No abdominal pain; melena; No nausea, No vomiting Genitourinary: No frequency, No hematuria Musculoskeletal: No joint pain, No joint swelling Skin: No change in color, No dryness Psychiatric/Neurological: Denies Headache, Denies Numbness All Other Systems Reviewed Negative Unless Noted: Yes (Negative excepted noted.) Physical Exam-General Problems Physical Exam General Appearance: WD/WN, mild distress HEENT: PERRL/EOMI, normal ENT inspection Neck: non-tender, supple Respiratory: decreased breath sounds, other (equal chest rise) Cardiovascular: irregularly irregular Gastrointestinal: non tender, soft, no organomegaly Rectal: deferred Back: normal inspection, no CVA tenderness, no vertebral tenderness Extremities: non-tender, pedal edema, other (Diffuse echymosis, right bka) Neurologic/Psychiatric: alert, other (flat affect) Skin: warm/dry, ecchymosis Lymphatic: no adenopathy Assessment/Plan Assessment/Plan Assessment/Plan Acute CHF exacerbation with bilateral pleural effusions Melena Anemia Current use anticoagulant Patient using CPAP at this time. Trying to be diuresed. If unable to get pleural effusion decrease may need thoracentesis. Anticoagulant on hold. If patient stable enough would consider EGD tomorrow as well due to the melena. N.p.o. after midnight. Supervisory-Addendum Brief Verification & Attestation Participated in pt care: history, MDM, physical Personally performed: exam, history, MDM, supervision of care Care discussed with: Medical Student Procedures: n/a Results interpretation: Verified all documentation Verification and Attestation of Medical Student E/M Service A medical student performed and documented this service in my presence. I reviewed and verified all information documented by the medical student and made modifications to such information, when appropriate. I personally performed the physical exam and medical decision making. Nehal Greenberg, Oct 02, 2021,18:45 UTLIO MCGARRY Oct 02, 2021 13:23 NEHAL GREENBERG DO Oct 02, 2021 18:41
[2021-10-02] MEDS ORDERED: LORazepam 0.5 MG (ATIVAN) TABLET PO PRN (13:30)
[2021-10-02 13:45] VITALS: BP 117/67
[2021-10-02 14:00] VITALS: BP 129/66
[2021-10-02] MEDS ORDERED: PANTOPRAZOLE 40 MG (PROTONIX) VIAL IV NR (14:00)
[2021-10-02] MEDS ORDERED: CATHETER FLUSH 10 ML SYR IV PRN (14:00)
[2021-10-02] MEDS ORDERED: ACETAMINOPHEN 325 MG TABLET PO PRN (14:15)
[2021-10-02] MEDS ORDERED: ACETAMINOPHEN 650 MG SUPP (TYLENOL) PR PRN (14:15)
[2021-10-02] MEDS ORDERED: LISI20TA26 PO (14:52)
[2021-10-02] MEDS ORDERED: RIVA20TA PO (14:52)
[2021-10-02] MEDS ORDERED: ACHD5005 PO (15:03)
[2021-10-02 15:30] VITALS: BP 129/77
[2021-10-02] MEDS: CATHETER FLUSH 10 ML SYR IV SCH ×2 (15:41→22:02)
[2021-10-02] MEDS ORDERED: RT-ALBUTEROL SULF 2.5 MG/3 ML PRE-MIX VIAL INH PRN (15:45)
[2021-10-02] MEDS: RIVAROXABAN 15 MG TABLET (XARELTO) PO SCH (15:52)
[2021-10-02 16:00] VITALS: BP 138/64
[2021-10-02] MEDS: inSUlin ASPART (NovoLOG) 1 UNIT/0.01 ML (CHARGE PER UNIT) SC SCH ×2 (16:00→20:47)
--- NOTE | 2021-10-02 17:19 | History & Physical-Hospitalist ---
SHIRA MCCORMICK 10/02/211718: History of Present Illness HPI/Chief Complaint Previous HPI from ED: Patient to ER by private conveyance from home with his daughter with chief complaint that he was getting into his truck and wearing 3 L of oxygen as he typically does when after he got himself up he said he started to feel lightheaded and short of air like he was in a pass out. He did not pass out fall or strike his head. He says he felt things going dark. He was on his way to Dr. Parada, cardiology to discuss his blood thinner for atrial fibrillation. He has a pacemaker in place. He is on Xarelto but has had black stools and bruising and they were thinking about switching him over to Eliquis. He has not made that appointment because he came here instead. He typically lives on 3 to 4 L by nasal cannula. His daughter says for the past week he has been weak. He did take all his medications this morning. He is on atenolol, Lasix and insul in. His blood sugar was 124 this morning and nursing staff checked it when he arrived it was 132. When I visited the patient today he was resting in bed with BiPAP in place supporting his respiration. He confirms that he normally uses 3-4L O2 as his baseline and that he did experience significant difficulty breathing earlier today which prompted his trip to the ED. He confirms that moving and talking made his symptoms worse and that the current BiPAP therapy helps significantly. 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 He denies any fever, chills, nausea or vomiting. Source: patient Exam Limitations: clinical condition, other (CPAP in place obstructing verbal communication) Date Seen 10/02/21 Time Seen by a Provider: 16:52 Attending Physician Mirna Paz DO PCP Shira Rawls MD Referring Physician Date of Admission Oct 02, 2021 at 12:05 Home Medications & Allergies Home Medications Reviewed patient Home Medication Reconciliation performed by pharmacy medication reconciliations digital camera technician and/or nursing. Patients Allergies have been reviewed. Allergies Allergies Coded Allergies No Known Drug Allergies ([id number]/17/09) Past Emadpry-Gleioc-Yaanzb Hx Patient Social History Tobacco Use?: No Smoking Status: Former Smoker Use of E-Cig and/or Vaping dev: No Substance use?: No Alcohol Use?: No Pt feels they are or have been: No Immunizations Up To Date First/Initial COVID19 Vaccinat: 02/16 Second COVID19 Vaccination Kwasi: 03/19 Tetanus Booster (TDap): Less Than 5 Years Hepatitis A: Yes Hepatitis B: Yes Date of Pneumonia Vaccine: Sep 29, 2012 Current Status Advance Directives: No Communicates: Verbally Primary Language: Anguill[place] Preferred Spoken Language: [place]guill[place] Is interpretation needed?: No Implanted or Applied Medical D: Pacemaker Past Medical History Surgeries: Abdominal, Amputation, Bowel Surgery, Cardiac, CABG, Joint Replacement, Orthopedic, Pacemaker, Vascular Surgery COPD Currently Using CPAP: No Currently Using BIPAP: No Atrial Fibrillation, Chronic Edema/Swelling, Coronary Artery Disease, High Cholesterol, Hypertension, Peripheral Vascular Benign Prostatic Hyperpl, Prostate Problems Colitis, Chronic Constipation, Chronic Diarrhea Amputee Diabetes, Insulin dep Hearing Impairment: Hard of Hearing Adverse Reaction/Blood Tranf: No PMHx: DMII HTN CAD SurgHx: 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 GREENBERG ADMITTED 01/30/21 FOR COLITIS AND ABDOMINAL WALL CELLULITIS CYSTOSCOPY 03/[address] MARINO Review of Systems Constitutional: No chills, No diaphoresis; dizziness; No fever; weakness EENTM: No blurred vision, No double vision, No eye pain, No vision loss, No mouth pain, No throat pain, No throat swelling Respiratory: No cough; dyspnea on exertion; No phlegm; short of breath; No stridor, No wheezing Cardiovascular: No chest pain; edema, Hx of Intervention; No palpitations Gastrointestinal: No RUQ, No LUQ, No RLQ, No LLQ, No abdominal pain, No constipation, No diarrhea, No vomiting Genitourinary: No discharge, No dysuria, No hematuria Musculoskeletal: No back pain, No joint pain, No muscle pain, No muscle stiffness, No muscle cramps, No neck pain Skin: No change in color, No change in hair/nails, No dryness Psychiatric/Neurological: Denies Headache, Denies Numbness, Denies Seizure; Weakness Physical Exam Physical Exam Vital Signs Vital Signs - First Documented 10/02/21 10/02/21 09:30 13:51 Temp 35.8 Pulse 66 Resp 20 B/P (MAP) 117/42 (67) Pulse Ox 100 O2 Delivery Nasal Cannula O2 Flow Rate 5.00 FiO2 30 Capillary Refill : Less Than 3 Seconds Height, Weight, BMI Height: 5'9.00" Weight: 226lbs. 9.6oz. 102.724326if; 33.70 BMI Method:Stated General Appearance: No Apparent Distress, WD/WN Eyes: Bilateral Eye PERRL, Bilateral Eye EOMI HEENT: PERRL/EOMI, Pharynx Normal Neck: Full Range of Motion, Non Tender, Supple Respiratory: Chest Non Tender, Lungs Clear, Normal Breath Sounds, No Accessory Muscle Use, Other (on BiPAP without other current signs of respiratory distress) Cardiovascular: Regular Rate, Rhythm, No Gallop, No Murmur, Normal Peripheral Pulses Gastrointestinal: Normal Bowel Sounds, No Organomegaly, No Pulsatile Mass, Non Tender, Soft Rectal: Deferred Back: No CVA Tenderness, No Vertebral Tenderness Extremity: Normal Capillary Refill, Normal Range of Motion, Non Tender, No Calf Tenderness, Pedal Edema, Other (rt BKA with prosthesis) Neurologic/Psychiatric: Alert, Oriented x3, No Motor/Sensory Deficits, Normal Mood/Affect Skin: Warm/Dry, Pallor Lymphatic: No Adenopathy (Cervical or axillary) Results Results/Procedures Labs Laboratory Tests 10/02/21 09:40 Patient resulted labs reviewed. Assessment/Plan Admission Diagnosis Acute on chronic respiratory failure Assessment and Plan Acute COPD exacerbation History of Cardiac Stent MERNA Mild anemia Plan: Intensive respiratory support to include Bi-PAP & steroids Abx - empiric due to opacities and small effusion found on CXR - repeat CXR tomorrow IV fluids for MERNA Monitor anemia for changes MIRNA PAZ DO 10/03/21 0552: History of Present Illness HPI/Chief Complaint Chief complaint: Shortness of breath History of present illness: This is an 86-year-old white male who has a past medical history of congestive heart failure who is heading to his cardiology appointment with Dr. Parada in [place] who became so short of breath he came to the ER found to have florid congestive heart failure exacerbation requiring BiPAP. Currently he is resting comfortably. Home meds have been restarted. Source: patient Exam Limitations: clinical condition Past Rcdnmmf-Jegbaw-Ocsrkf Hx Patient Social History Marrital Status: single Employed/Student: retired Smoking Status: Former Smoker Past Medical History Pneumonia Atrial Fibrillation, Chronic Edema/Swelling, Coronary Artery Disease, High Cholesterol Arthritis Family Medical History Diabetes mellitus GRANDMOTHER FH: leukemia G8 BROTHER Testicular cancer 19 FATHER Review of Systems ROS-Unable to Obtain: BiPAP Physical Exam Physical Exam General Appearance: No Apparent Distress, WD/WN, Chronically ill Eyes: Right Eye Normal Inspection, Right Eye PERRL HEENT: PERRL/EOMI, Normal ENT Inspection, Pharynx Normal, Moist Mucous Membranes Neck: Full Range of Motion, Normal Inspection, Non Tender Respiratory: Chest Non Tender, Lungs Clear, No Accessory Muscle Use, No R espiratory Distress, Decreased Breath Sounds Cardiovascular: Regular Rate, Rhythm, No Edema, No Gallop, No JVD, No Murmur, Normal Peripheral Pulses Gastrointestinal: Normal Bowel Sounds, No Organomegaly, No Pulsatile Mass, Non Tender, Soft Back: Normal Inspection, No CVA Tenderness, No Vertebral Tenderness Extremity: Normal Capillary Refill, Normal Inspection, Normal Range of Motion, Non Tender, No Calf Tenderness, No Pedal Edema Neurologic/Psychiatric: Alert, Oriented x3, No Motor/Sensory Deficits, Normal Mood/Affect Skin: Normal Color, Warm/Dry Lymphatic: No Adenopathy Assessment/Plan Admission Diagnosis Assessment: Acute on chronic respiratory failure requiring BiPAP Exacerbation of congestive heart failure Hypoxia Plan: BiPAP Cardiology consult IV diuresis Admission Status: Inpatient Order (span 2 midnights) Reason for Inpatient Admission: Congestive heart failure requiring BiPAP Supervisory-Addendum Brief Verification & Attestation Participated in pt care: history, MDM, physical Personally performed: exam, history, MDM, supervision of care Care discussed with: Medical Student Procedures: n/a Results interpretation: Verified all documentation Verification and Attestation of Medical Student E/M Service A medical student performed and documented this service in my presence. I revie wed and verified all information documented by the medical student and made modifications to such information, when appropriate. I personally performed the physical exam and medical decision making. Mirna Paz, Oct 03, 2021,05:52 SHIRA MCCORMICK Oct 02, 2021 17:19 MIRNA PAZ DO Oct 03, 2021 05:52
[2021-10-02] MEDS: KCL 20 MEQ TAB (K-DUR) PO SCH (17:41)
--- NOTE | 2021-10-02 17:47 | Consultation-Cardiology ---
HPI-Cardiology Cardiology Consultation: Date of Consultation 10/02/21 Time Seen by a Provider: 16:45 Date of Admission Attending Physician Mirna Paz DO Admitting Physician Trever Rawls MD Consulting Physician JOSIAH MORENO MD, MA, FACP, FACC, FSCAI, CCDS HPI: Chief Complaint: Near-syncope and shortness of breath Mr. Keene is an 86 yr old male admitted to [facility] from the ED with report of near syncopal episode. Pt is currently on Bi-pap making communication difficult. Daughter and son-in-law were with him earliery. He lives with them. He has chronic shortness of breath that has been worse lately. Daughter has reported he was transferring from his w/c into the truck this morning to go see Dr. Parada, his primary business division chair, at [facility]. She states he had his oxygen on and when he got into the truck he reported to them he felt as though he might pass out, but did not. They decided to bring him to the ED. Daughter states he was started on Xarelto approx 3 weeks ago after he was diagnosed with PAF at time of pacemaker interrogation. She states since starting Xarelto he has felt unwell. She reports he has been c/o chest tightness and SOB with any exertional activity. She reports he had only been wearing oxygen at bedtime, but recently has been wearing it all day at 4L/NC. She reports he has had dark, tarry bowel movements. She reports he has had poor appetite recently. They report he has c/o increasing fatigue and weakness. He is not reporting any chest pain at this time, but continues to feel SOB. Review of Systems-Cardiology Review of Systems Constitutional: No chills, No fever; malaise Eyes: No vision change Ears/Nose/Throat: epistaxis (recent ED visit d/t nosebleed); No recent hearing loss Respiratory: As described under HPI Cardiovascular: As described under HPI Gastrointestinal: As described under HPI; No diarrhea, No nausea, No vomiting Genitourinary: No hematuria Skin: other (R BKA; reports wound to LLE) Psychiatric/Neurological: As described under HPI Hematologic: No bleeding abnormalities All Other Systems Reviewed Negative Unless Noted: Yes AQF-Qnbsve-Sptygf Hx Patient Social History Smoking Status: Former Smoker Former smoker/When Quit: Jan 12, 1994 Have you traveled recently?: No Alcohol Use?: No Pt feels they are or have been: No Immunizations Up To Date Tetanus Booster (TDap): Unknown Date of Pneumonia Vaccine: Sep 29, 2012 Past Medical History PMH As described under Assessment. Family Medical History Family Medical History: He reports his father CAD with an IN in his later years. He reports his mother had CAD. He reports a son who had CAD, unsure of age of diagnosis. Family History: Diabetes mellitus GRANDMOTHER FH: leukemia G8 BROTHER Testicular cancer 19 FATHER Allergies and Home Medications Allergies Coded Allergies: No Known Drug Allergies (Verified , 10/15/09) Patient Home Medication List Home Medication List Reviewed: Yes Ascorbic Acid (Vitamin C) 500 Mg Capsule, 500 MG PO DAILY, (Reported) Entered as Reported by: TIMOTHY SPRING on 04/01/201338 Last Action: Reviewed Aspirin (Aspirin EC) 81 Mg Tablet.dr, 81 MG PO DAILY, (Reported) Entered as Reported by: REGAN LEVY on 11/04/20 1154 Last Action: Reviewed Atenolol (Atenolol) 25 Mg Tablet, 25 MG PO 1800, (Reported) Entered as Reported by: TIMOTHY SPRING on 02/26/20 133 Last Action: Reviewed Calcium Carbonate (Calcium) 600 Mg Tablet, 600 MG PO DAILY, (Reported) Entered as Reported by: TIMOTHY SPRING on 04/01/201338 Last Action: Reviewed Finasteride (Finasteride) 5 Mg Tablet, 5 MG PO 1800, (Reported) Entered as Reported by: TIMOTHY SPRING on 02/26/20 133 Last Action: Reviewed Fluoxetine HCl (Fluoxetine HCl) 20 Mg Capsule, 20 MG PO 1800, (Reported) Entered as Reported by: TIMOTHY SPRING on 04/01/201338 Last Action: Reviewed Furosemide (Furosemide) 40 Mg Tablet, 80 MG PO DAILY, (Reported) Entered as Reported by: TIMOTHY SPRING on 01/31/21 1237 Last Action: Reviewed Gabapentin (Neurontin) 300 Mg Capsule, 300 MG PO BID, (Reported) Entered as Reported by: REGAN LEVY on 11/04/20 1155 Last Action: Reviewed Glucagon,Human Recombinant (Glucagon Emergency Kit) 1 Mg/Kit Soln, 1 MG IJ UD PRN for HYPOGLYCEMIA, (Reported) Entered as Reported by: TIMOTHY SPRING on 01/31/21 1243 Last Action: Reviewed Hydrocodone/Acetaminophen (Hydrocodone-Acetamin 5-325 mg) 1 Each Tablet, 1 EA PO BID PRN for PAIN-MODERATE (5-7), (Reported) Entered as Reported by: TIMOTHY SPRING on 10/02/21 1503 Last Action: Reviewed Insulin NPH Hum/Reg Insulin Hm (Humulin 70-30 Vial) 100 Unit/1 Ml Vial, 10-15 UNIT SQ BIDPC, (Reported) Entered as Reported by: TIMOTHY SPRING on 01/31/21 123 Last Action: Reviewed Lisinopril (Lisinopril) 20 Mg Tablet, 20 MG PO DAILY, (Reported) Entered as Reported by: TIMOTHY SPRING on 10/02/21 145 Last Action: Reviewed Lorazepam (Ativan) 0.5 Mg Tablet, 0.5 MG PO DAILY, (Reported) Entered as Reported by: TIMOTHY SPRING on 01/31/21 123 Last Action: Reviewed Multivit-Min/FA/Lycopene/Lut (Centrum Silver Tablet) 1 Each Tablet, 1 TAB PO DAILY, (Reported) Entered as Reported by: KRISHNA CANO on 09/01/15 1109 Last Action: Reviewed Rivaroxaban (Xarelto) 20 Mg Tablet, 20 MG PO 1800, (Reported) Entered as Reported by: TIMOTHY SPRING on 10/02/211451 Last Action: Reviewed Tamsulosin HCl (Flomax) 0.4 Mg Cap, 0.4 MG PO BID, (Reported) Entered as Reported by: TIMOTHY SPRING on 01/31/21 123 Last Action: Reviewed Discontinued Medications Hydrocodone Bit/Acetaminophen (HYDROcodone/APAP 5 MG/325 MG TAB) 1 Tab Tab, 1 EA PO Q4H PRN for PAIN-MODERATE (5-7) Discontinued Reason: Duplicate Order Prescribed by: MIRNA PAZ on 02/04/21 1008 Last Action: Discontinued Physical Exam-Cardiology Physical Exam Vital Signs/I&O 10/02/21 10/02/21 10/02/21 10/02/21 09:30 09:58 11:02 12:20 Temp 35.8 Pulse 66 70 70 70 74 Resp 20 23 B/P (MAP) 117/42 (67) 116/53 (74) 101/61 (74) 97/71 (80) Pulse Ox 100 O2 Delivery Nasal Cannula Nasal Cannula O2 Flow Rate 5.00 5.00 5.00 10/02/21 10/02/21 10/02/21 10/02/21 13:27 13:30 13:34 13:45 Temp 35.8 Pulse 70 70 67 Resp 23 20 20 B/P (MAP) 129/77 117/67 (84) Pulse Ox 100 95 O2 Delivery NIV CPAP NIV CPAP O2 Flow Rate 30.00 30.00 10/02/21 10/02/21 10/02/21 10/02/21 13:51 14:00 15:30 16:00 Temp 35.8 Pulse 67 70 70 Resp 21 16 B/P (MAP) 129/66 (87) 138/64 (88) Pulse Ox 96 95 96 O2 Delivery NIV CPAP NIV CPAP NIV CPAP O2 Flow Rate 30.00 30.00 FiO2 30 10/02/21 16:27 Temp 35.5 Capillary Refill : Less Than 3 Seconds Constitutional: AAO x 3, well-developed, well-nourished HEENT: PERRL, other (edentulous jaws), hearing is well preserved, oral hygience is good Neck: No carotid bruit; carotid pulses are 2 + bilaterally Respiratory: chest expansion is symmetric, chest is bilaterally symmetric, other (diminished bilat lower lobes) Cardiovascular: regular rate-rhythm; No JVD; S1 and S2, systolic murmur Gastrointestinal: No tender; soft, round; No guarding Extremities: other (R BKA), no lower extremity edema bilateral Neurologic/Psychiatric: other (moves all limbs equally) Skin: other (dressing to LLE) Data Review Labs Laboratory Tests 10/02/21 09:40: White Blood Count 6.3, Red Blood Count 3.05L, Hemoglobin 9.0L, Hematocrit 30L, Mean Corpuscular Volume 97, Mean Corpuscular Hemoglobin 30, Mean Corpuscular Hemoglobin Concent 30L, Red Cell Distribution Width 16.5H, Platelet Count 152, Mean Platelet Volume 11.0, Immature Granulocyte % (Auto) 0, Neutrophils (%) (Auto) 66, Lymphocytes (%) (Auto) 22, Monocytes (%) (Auto) 8, Eosinophils (%) (Auto) 3, Basophils (%) (Auto) 1, Neutrophils # (Auto) 4.2, Lymphocytes # (Auto) 1.4, Monocytes # (Auto) 0.5, Eosinophils # (Auto) 0.2, Basophils # (Auto) 0.0, Immature Granulocyte # (Auto) 0.0, Sodium Level 142, Potassium Level 4.6, Chloride Level 101, Carbon Dioxide Level 29, Anion Gap 12, Blood Urea Nitrogen 50H, Creatinine 1.70H, Estimat Glomerular Filtration Rate 38, BUN/Creatinine Ratio 29, Glucose Level 134H, Calcium Level 8.9, Corrected Calcium 9.2, Total Bilirubin 1.0, Aspartate Amino Transf (AST/SGOT) 25, Alanine Aminotransferase (ALT/SGPT) 16, Alkaline Phosphatase 112, Troponin I 0.052H, B-Type Natriuretic P eptide 746.7H, Total Protein 6.7, Albumin 3.6 10/02/21 09:58: Glucometer 132H 10/02/21 10:47: Blood Gas Puncture Site RT RAD, Blood Gas Patient Temperature 35.8, Arterial Blood pH 7.35L, Arterial Blood Partial Pressure CO2 59H, Arterial Blood Partial Pressure O2 80, Arterial Blood HCO3 33H, Arterial Blood Total CO2 34.6H, Arterial Blood Oxygen Saturation 97, Arterial Blood Base Excess 7.0H, Louie Test YES-POS, Blood Gas Ventilator Setting NO, Blood Gas Inspired Oxygen 3 L/5 % 10/02/21 16:11: Glucometer 116H 10/02/21 17:00: Troponin I 0.042H Laboratory Tests 10/02/21 09:40 A/P-Cardiology Assessment/Admission Diagnosis Ac CHF of undetermined etiology Near-syncope of undetermined etiology Melena - management per medical services CKD 3 - 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 Parada his primary business division chair - interrogation of 10/02/21 shows dual chamber pacemaker in the DOOR mode, functioning normally (as directed by the DOOR mode). Underlying rhythm is A Fib and complete heart blockd PAF - family reports diagnosed 3 weeks ago - OAC with Xarelto H/O R BKA - per pt it was done at the time of CABG - details unknown Open colon resection on 04-03-[address] Henderson d/t ischemic colon DM 2 HTN HLD Macular degeneration Tobaccoism - smokes cigars Prob COPD BPH with urinary retention and hematuria - managed per Dr. Sal Discussion and Recomendations Device interrogated, see above. Consider switching mode to DDDR. This can be pursued by his business division chair because we are unaware of why the mode is DOOR. DOOR appear adequate for now Acute on chronic systolic CHF - treat with diuretics CKD 3 - monitor lab closely Melena reported by pt and family - management per Medical services Pleural eff may need thoracentesis PAF - continue OAC with Xarelto - reduced dose d/t renal function. Xarelto is being held today in anticipation of endoscopy/thoracentesis by Dr Henderson who is on surgical consutl Echocardiogram to eval structure and function Replace electrolytes as indicated Request records from Dr. Parada We would like to thank Medical services for this consult Further recs will be based on his hospital course JOSIAH MORENO MD FACP FAC CCDS Oct 02, 2021 17:47
[2021-10-02] MEDS: RT-ALBUTEROL SULF 2.5 MG/3 ML PRE-MIX VIAL INH SCH ×2 (18:26→22:17)
[2021-10-02 20:00] VITALS: BP 137/84
[2021-10-02] MEDS: TAMSULOSIN 0.4 MG (FLOMAX) CAP PO SCH ×2 (22:01→22:36)
[2021-10-02] MEDS: GABAPENTIN 300 MG (NEURONTIN) CAP PO SCH ×2 (22:02→22:36)
[2021-10-03] VITALS (7 sets, daily range): BP systolic 99–144; BP diastolic 32–71
[2021-10-03] MEDS: HYDROcodone/APAP 5 MG/325 MG (LORTAB) TAB PO PRN ×4 (00:10→22:31)
[2021-10-03] MEDS: RT-ALBUTEROL SULF 2.5 MG/3 ML PRE-MIX VIAL INH SCH ×5 (02:36→22:17)
[2021-10-03 06:06] LABS: BASOPHILS % (AUTO) 1 % (0-10); EOSINOPHILS # (AUTO) 0.1 10^3/uL (0.0-0.3); EOSINOPHILS % (AUTO) 1 % (0-10); HEMATOCRIT 26 % (40-54); HEMOGLOBIN 7.8 g/dL (13.3-17.7); LYMPHOCYTES # (AUTO) 0.9 10^3/uL (1.0-4.0); LYMPHOCYTES % (AUTO) 19 % (12-44); MEAN CORPUSCULAR HEMOGLOBIN 29 pg (25-34); MEAN CORPUSCULAR HGB CONC 31 g/dL (32-36); MEAN CORPUSCULAR VOLUME 96 fL (80-99); MEAN PLATELET VOLUME 10.6 fL (9.0-12.2); MONOCYTES # (AUTO) 0.5 10^3/uL (0.0-1.0); MONOCYTES % (AUTO) 11 % (0-12); NEUTROPHILS # (AUTO) 3.5 10^3/uL (1.8-7.8); NEUTROPHILS % (AUTO) 69 % (42-75); PLATELET COUNT 136 10^3/uL (130-400)
[2021-10-03] MEDS: MULTIVIT W/MINERALS TAB (THERAGRAN M) PO SCH (06:06)
[2021-10-03] MEDS: inSUlin ASPART (NovoLOG) 1 UNIT/0.01 ML (CHARGE PER UNIT) SC SCH ×4 (06:06→22:27)
[2021-10-03] MEDS: CATHETER FLUSH 10 ML SYR IV SCH ×3 (06:10→22:32)
[2021-10-03] MEDS: FUROSEMIDE 40 MG/4 ML INJ (LASIX) IV SCH (06:10)
[2021-10-03 06:34] LABS: CALCIUM 8.4 MG/DL (8.5-10.1); CREATININE SERUM 1.78 MG/DL (0.60-1.30); MAGNESIUM 2.1 MG/DL (1.6-2.4); POTASSIUM 4.3 MMOL/L (3.6-5.0)
--- NOTE | 2021-10-03 07:36 | Progress Note - Surgery ---
MALGORZATATULIO 10/03/21 0736: Subjective Time Seen by a Provider: 07:00 Subjective/Events-last exam Mr Keene is an 86yo male with past medical history of CHF, CAD, and COPD who presented to the ED yesterday with symptoms of near syncope. He was seen at bedside this morning with no new complaints. History was limited due to BIPAP. However, he states he has no new complaints. He did have some chest pain last night which has since resolved. He does not recall if his stools were darker than normal. He states he had trouble sleeping last night. His Xarelto was held last night and he has been NPO in preparation for EGD today. Review of Systems General: No Chills, No Fatigue HEENT: No Head Aches, No Visual Changes Pulmonary: No Cough, No Pleuritic Chest Pain Cardiovascular: No: Chest Pain, Lt Headedness Gastrointestinal: Diarrhea; No: Nausea, Vomiting, Abdominal Pain Genitourinary: No Dysuria, No Incontinence Musculoskeletal: No: arm pain, leg pain Neurological: No: Weakness, Numbness Objective Exam Vital Signs Date Time Temp Pulse Resp B/P (MAP) Pulse Ox O2 Delivery O2 Flow Rate FiO2 10/03/21 06:46 70 20 93 30.00 10/03/21 04:00 36.6 74 17 99/33 (55) 96 NIV CPAP 60.00 10/03/21 02:36 70 22 95 30.00 10/03/21 01:00 70 10/03/21 00:00 36.6 70 30 130/63 (85) 96 NIV CPAP 60.00 10/02/21 22:17 28 97 30.00 10/02/21 21:00 96 NIV CPAP 5.00 10/02/21 20:00 70 15 137/84 (101) 97 NIV CPAP 60.00 10/02/21 19:43 36.2 10/02/21 19:00 70 10/02/21 18:27 13 30.00 10/02/21 16:27 35.5 10/02/21 16:00 70 16 138/64 (88) 96 NIV CPAP 30.00 10/02/21 15:30 35.8 70 10/02/21 14:00 67 21 129/66 (87) 95 NIV CPAP 30.00 10/02/21 13:51 96 NIV CPAP 30 10/02/21 13:45 67 20 117/67 (84) 95 NIV CPAP 30.00 10/02/21 13:34 70 10/02/21 13:30 35.8 70 20 129/77 100 NIV CPAP 10/02/21 13:27 23 30.00 10/02/21 12:20 70 23 10/02/21 11:02 70 116/53 (74) 70 101/61 (74) 74 97/71 (80) 10/02/21 09:58 Nasal Cannula 5.00 5.00 10/02/21 09:30 35.8 66 20 117/42 (67) 100 Nasal Cannula 5.00 I & O 10/03/21 07:00 Intake Total 350 ml Output Total 3450 ml Balance -3100 ml Capillary Refill : Less Than 3 Seconds General Appearance: No Apparent Distress, WD/WN, Chronically ill HEENT: PERRL/EOMI, Normal ENT Inspection, Moist Mucous Membranes Neck: Full Range of Motion, Normal Inspection, Non Tender Respiratory: Chest Non Tender, No Accessory Muscle Use, No Respiratory D istress, Decreased Breath Sounds Cardiovascular: Regular Rate, Rhythm, Normal Peripheral Pulses Peripheral Pulses: 1+ Radial Pulses (R), 1+ Radial Pulses (L) Gastrointestinal: non tender, soft, no organomegaly Extremity: Normal Capillary Refill, Normal Inspection, Normal Range of Motion, Non Tender, No Calf Tenderness Neurologic/Psychiatric: Alert, Oriented x3, No Motor/Sensory Deficits, Normal Mood/Affect Skin: Normal Color, Warm/Dry Lymphatic: No Adenopathy Results Lab Laboratory Tests 10/02/21 09:40: White Blood Count 6.3, Red Blood Count 3.05L, Hemoglobin 9.0L, Hematocrit 30L, Mean Corpuscular Volume 97, Mean Corpuscular Hemoglobin 30, Mean Corpuscular Hemoglobin Concent 30L, Red Cell Distribution Width 16.5H, Platelet Count 152, Mean Platelet Volume 11.0, Immature Granulocyte % (Auto) 0, Neutrophils (%) (Auto) 66, Lymphocytes (%) (Auto) 22, Monocytes (%) (Auto) 8, Eosinophils (%) (Auto) 3, Basophils (%) (Auto) 1, Neutrophils # (Auto) 4.2, Lymphocytes # (Auto) 1.4, Monocytes # (Auto) 0.5, Eosinophils # (Auto) 0.2, Basophils # (Auto) 0.0, Immature Granulocyte # (Auto) 0.0, Sodium Level 142, Potassium Level 4.6, Chloride Level 101, Carbon Dioxide Level 29, Anion Gap 12, Blood Urea Nitrogen 50H, Creatinine 1.70H, Estimat Glomerular Filtration Rate 38, BUN/Creatinine Ratio 29, Glucose Level 134H, Calcium Level 8.9, Corrected Calcium 9.2, Total Bilirubin 1.0, Aspartate Amino Transf (AST/SGOT) 25, Alanine Aminotransferase (ALT/SGPT) 16, Alkaline Phosphatase 112, Troponin I 0.052H, B-Type Natriuretic Peptide 746.7H, Total Protein 6.7, Albumin 3.6 10/02/21 09:58: Glucometer 132H 10/02/21 10:47: Blood Gas Puncture Site RT RAD, Blood Gas Patient Temperature 35.8, Arterial Blood pH 7.35L, Arterial Blood Partial Pressure CO2 59H, Arterial Blood Partial Pressure O2 80, Arterial Blood HCO3 33H, Arterial Blood Total CO2 34.6H, Arterial Blood Oxygen Saturation 97, Arterial Blood Base Excess 7.0H, Louie Test YES-POS, Blood Gas Ventilator Setting NO, Blood Gas Inspired Oxygen 3 L/5 % 10/02/21 16:11: Glucometer 116H 10/02/21 17:00: Troponin I 0.042H 10/02/21 20:18: Glucometer 137H 10/03/21 05:49: Glucometer 218H 10/03/21 05:50: White Blood Count 5.0, Red Blood Count 2.67L, Hemoglobin 7.8L, Hematocrit 26L, Mean Corpuscular Volume 96, Mean Corpuscular Hemoglobin 29, Mean Corpuscular Hemoglobin Concent 31L, Red Cell Distribution Width 16.8H, Platelet Count 136, Mean Platelet Volume 10.6, Immature Granulocyte % (Auto) 0, Neutrophils (%) (Auto) 69, Lymphocytes (%) (Auto) 19, Monocytes (%) (Auto) 11, Eosinophils (%) (Auto) 1, Basophils (%) (Auto) 1, Neutrophils # (Auto) 3.5, Lymphocytes # (Auto) 0.9L, Monocytes # (Auto) 0.5, Eosinophils # (Auto) 0.1, Basophils # (Auto) 0.0, Immature Granulocyte # (Auto) 0.0, Sodium Level 141, Potassium Level 4.3, Chloride Level 100, Carbon Dioxide Level 30, Anion Gap 11, Blood Urea Nitrogen 54H, Creatinine 1.78H, Estimat Glomerular Filtration Rate 36, BUN/Creatinine Ratio 30, Glucose Level 231H, Calcium Level 8.4L, Magnesium Level 2.1 Meds Item Value Date Time Lorazepam 0.5 mg 10/02/21 1330 (Ativan Tablet) Q8H PRN/PO Mean Platelet Volume 11.0 fL 10/02/21 0940 Fluoxetine HCl 20 mg 10/03/21 1800 (PROzac CAPSULE) 1800/PO Finasteride 5 mg 10/03/21 1800 (Proscar Tablet) 1800/PO Atenolol 25 mg 10/03/21 1800 (Tenormin Tablet) 1800/PO Lorazepam 0.5 mg 10/03/21 0900 (Ativan Tablet) DAILY/PO Lisinopril 20 mg 10/03/21 0900 (Zestril Tablet) DAILY/PO Calcium Carbonate 600 mg 10/03/21 0900 (Calcarb 600 DAILY/PO Tablet) Aspirin 81 mg 10/03/21 0900 (Ecotrin Tablet) DAILY/PO Ascorbic Acid 500 mg 10/03/21 0800 (Vitamin C DAILY@0800/PO Tablet) Insulin Human 10 unit 10/03/21 0800 Isoph/Insulin BIDPC/SQ Regular (HumuLIN 70/30 MIX (CHARGE PER UNIT)) Multivitamins/ 1 ea 10/03/21 0700 Minerals DAILY@0700/PO Therapeutic (Vitamins, Multi w/Minerals Tablet) Furosemide 80 mg 10/03/21 0700 (Lasix DAILY@0700/IV 10/03/21 0610 Injection) Tamsulosin HCl 0.4 mg 10/02/212099 (Flomax Capsule) BID/PO 10/02/212235 Gabapentin 300 mg 10/02/212099 (Neurontin BID/PO 10/02/212235 Capsule/Tablet) Acetaminophen/ 1 ea 10/02/211999 Hydrocodone Bitart BID PRN/PO 10/03/21 031 (Lortab 5 Mg Tablet) Albuterol Sulfate 2.5 mg 10/02/21 1800 (Proventil RTQ4HR/INH 10/03/21 0646 Pre-Mix Nebs (Rt)) Potassium Chloride 40 meq 10/02/21 1800 (K Dur Tablet) BID WITH MEALS/PO 10/02/21 1741 Rivaroxaban 15 mg 10/02/21 1700 (Xarelto Tablet) DAILY@1700/PO Insulin Aspart SLIDING SCALE A BLOO... 10/02/21 1600 (NovoLOG (CHARGE ACHS/SC PER UNIT)) Albuterol Sulfate 2.5 mg 10/02/21 1545 (Proventil Q2HR PRN/INH Pre-Mix Nebs (Rt)) Acetaminophen 650 mg 10/02/21 1415 (Tylenol Q6H PRN/TN Suppository) Acetaminophen 650 mg 10/02/21 1415 (Tylenol Tablet) Q6H PRN/PO Sodium Chloride 10-40 ML 10/02/21 1400 (Catheter Flush Q8HR/IV 10/03/21 0610 Syringe) Sodium Chloride 10-40 ML 10/02/21 1400 (Catheter Flush NEEDED PRN/IV Syringe) Assessment/Plan Assessment/Plan Assessment/Plan Acute CHF exacerbation with bilateral pleural effusions Melena CKD Anemia Current use anticoagulant Patient using CPAP at this time Diuresis as necessary and monitor pleural effusion with CXR. If no resolution, consider thoracentesis. Monitor creatinine with CMP due to CKD. Anticoagulation on hold. EGD scheduled for melena. Patient has been NPO since midnight. NEHAL HENDERSON DO 10/03/21 1053: Subjective Date Seen by a Provider: Oct 03, 2021 Subjective/Events-last exam Patient breathing little bit easier today. But requiring BiPAP. If comes off BiPAP starts having more difficulty. Patient has no other complaints at this time. Had ultrasound demonstrating bilateral pleural effusions that appear to be drainable. Denies any nausea vomiting fever sweats chills or chest pain. Objective Exam General Appearance: WD/WN, Chronically ill, Other (laying with bipap) HEENT: PERRL/EOMI, Normal ENT Inspection Neck: Full Range of Motion, Non Tender, Supple Respiratory: Chest Non Tender, No Accessory Muscle Use, No Respiratory Distress, Decreased Breath Sounds Cardiovascular: Regular Rate, Rhythm, No JVD Gastrointestinal: non tender, soft, no organomegaly Extremity: Other (right bka) Neurologic/Psychiatric: Alert, Oriented x3, No Motor/Sensory Deficits Skin: Normal Color, Warm/Dry Lymphatic: No Adenopathy Assessment/Plan Assessment/Plan Assessment/Plan Acute CHF exacerbation with bilateral pleural effusions Melena CKD Anemia Current use anticoagulant Patient using bipap at this time u/s showing drainable fluid collection for thoracentesis will get consent and perform today. Monitor creatinine with CMP due to CKD. Anticoagulation on hold. EGD scheduled for melena. Patient I do not feel will tolerate EGD at this time, so will hold off on egd. Supervisory-Addendum Brief Verification & Attestation Participated in pt care: history, MDM, physical Personally performed: exam, history, MDM, supervision of care Care discussed with: Medical Student Procedures: n/a Results interpretation: Verified all documentation Verification and Attestation of Medical Student E/M Service A medical student performed and documented this service in my presence. I reviewed and verified all information documented by the medical student and made modifications to such information, when appropriate. I personally performed the physical exam and medical decision making. Nehal Henderson, Oct 03, 2021,10:53 TULIO MCGARRY Oct 03, 2021 07:36 NEHAL HENDERSON DO Oct 03, 2021 10:53
--- NOTE | 2021-10-03 08:48 | Diagnostic Imaging Report ---
INDICATION: Pleural effusion Ultrasound of the chest was performed bilaterally. There are bilateral nonloculated pleural effusions. The right 2nd largest pocket measured about 11.6 cm, left 2nd largest pocket measuring about 8.6 cm. IMPRESSION: Bilateral nonloculated pleural effusions. Dictated by: Dictated on workstation # [id number]
[2021-10-03] MEDS ORDERED: NON-FORMULARY MEDICATION 1 EA EA (Ascorbic Acid (Vitamin C) 500 MG) PO SCH (09:00)
[2021-10-03] MEDS: inSUlin NPH/REG (NovoLIN 70/30) CHARGE PER UNIT SQ SCH ×2 (09:00→17:37)
[2021-10-03] MEDS: ASPIRIN E.C. 81 MG (ECOTRIN) TAB PO SCH (09:00)
[2021-10-03] MEDS: LORazepam 0.5 MG (ATIVAN) TABLET PO SCH (09:00)
[2021-10-03] MEDS ORDERED: NON-FORMULARY MEDICATION 1 EA EA (Multivit-Min/FA/Lycopene/Lut (Centrum Silver Tablet) 1 T PO SCH (09:00)
[2021-10-03] MEDS: ASCORBIC ACID (VIT C) 500 MG TABLET PO SCH (09:00)
[2021-10-03] MEDS: lisINopril 20 MG (PRINIVIL) TABLET PO SCH (09:00)
[2021-10-03] MEDS: GABAPENTIN 300 MG (NEURONTIN) CAP PO SCH ×2 (09:00→22:31)
--- NOTE | 2021-10-03 10:38 | Progress Note - Cardiology ---
Cardiology SOAP Progress Note Subjective: Lying in bed Feels his SOB is better today No c/o CP or palpitations Communication limited d/t bi-pap in place Objective: I&O/Vital Signs 10/07/21 10/07/21 10/07/21 10/07/21 00:00 02:21 04:00 08:36 Temp 36.0 36.0 35.6 Pulse 69 70 74 Resp 18 18 20 B/P (MAP) 95/52 (66) 107/56 (73) 114/65 (81) Pulse Ox 96 99 94 95 O2 Delivery Nasal Cannula Nasal Cannula Nasal Cannula Nasal Cannula O2 Flow Rate 5.00 5.00 5.00 5.00 10/07/21 10/07/21 09:39 09:52 Pulse Ox 96 O2 Delivery Nasal Cannula High Flow N/C O2 Flow Rate 5.00 4.00 10/07/21 00:00 Intake Total 1320 ml Output Total 1900 ml Balance -580 ml Weight (Pounds): 226 Weight (Ounces): 9.6 Weight (Calculated Kilograms): 102.789691 Constitutional: AAO x 3, well-developed, well-nourished Respiratory: chest expansion is symmetric, chest is bilaterally symmetric, other Cardiovascular: regular rate-rhythm, S1 and S2, systolic murmur Gastrointestional: soft, round Extremities: other, no lower extremity edema bilateral Neurologic/Psychiatric: other Skin: other Results/Procedures: Labs Laboratory Tests 10/06/21 11:10: Glucometer 161H 10/06/21 15:21: Glucometer 118H 10/06/21 15:33: Potassium Level 5.1H 10/06/21 20:31: Glucometer 209H 10/07/21 05:23: White Blood Count 5.6, Red Blood Count 2.82L, Hemoglobin 8.0L, Hematocrit 27L, Mean Corpuscular Volume 97, Mean Corpuscular Hemoglobin 28, Mean Corpuscular Hemoglobin Concent 29L, Red Cell Distribution Width 16.1H, Platelet Count 184, Mean Platelet Volume 10.5, Immature Granulocyte % (Auto) 0, Neutrophils (%) (Auto) 56, Lymphocytes (%) (Auto) 26, Monocytes (%) (Auto) 12, Eosinophils (%) (Auto) 6, Basophils (%) (Auto) 1, Neutrophils # (Auto) 3.2, Lymphocytes # (Auto) 1.5, Monocytes # (Auto) 0.7, Eosinophils # (Auto) 0.3, Basophils # (Auto) 0.0, Immature Granulocyte # (Auto) 0.0, Sodium Level 139, Potassium Level 5.3H, Chloride Level 97L, Carbon Dioxide Level 32, Anion Gap 10, Blood Urea Nitrogen 56H, Creatinine 2.04H, Estimat Glomerular Filtration Rate 31, BUN/Creatinine Ratio 27, Glucose Level 152H, Calcium Level 8.3L 10/07/21 05:25: Glucometer 150H Microbiology 10/07/21 C. difficile GDH Antigen & Toxins - Final, Complete A/P: Assessment: Ac CHF of undetermined etiology Near-syncope of undetermined etiology - no further episodes Melena - management per medical services CKD 3 - probably secondary to diabetic nephropathy Acute on chronic systolic CHF CAD - reported h/o CABG x 4 vessel - followed by his blanket cutting machine operator Dr Parada - Echo of 04/11/20: LVEF 40-45%, grade 3 wolf dysfunction, biatrial enlargement, PASP 55-60 mmHg PPM - pt states it is followed by Dr. Parada his primary blanket cutting machine operator - interrogation of 10/02/21 shows dual chamber pacemaker in the DOOR mode, functioning normally (as directed by the DOOR mode). Underlying rhythm is A Fib and complete heart blockd PAF - family reports diagnosed 3 weeks ago - OAC with Xarelto - being held d/t pending thoracentsis/endoscopy H/O R BKA - per pt it was done at the time of CABG - details unknown Open colon resection on 04-03-[address] Henderson d/t ischemic colon DM 2 HTN HLD Macular degeneration Tobaccoism - smokes cigars Prob COPD BPH with urinary retention and hematuria - managed per Dr. Sal Plan: Device interrogated, see above. Consider switching mode to DDDR. This can be pursued by his blanket cutting machine operator because we are unaware of why the mode is DOOR. DOOR appear adequate for now Acute on chronic systolic CHF - treat with diuretics CKD 3 - monitor lab closely Melena reported by pt and family - management per Medical/surgical services Pleural eff may need thoracentesis - management per medical/surgical services PAF - continue OAC with Xarelto - reduced dose d/t renal function. Xarelto is being held today in anticipation of endoscopy/thoracentesis by Dr Henderson who is on surgical consutl Replace electrolytes as indicated Requested records from TRACIE Zamora Oct 03, 2021 10:38
--- NOTE | 2021-10-03 11:56 | Diagnostic Imaging Report ---
INDICATION: Status post thoracentesis. TIME OF EXAM: 11:41 AM Correlation is made with prior study one day earlier. There has been reduction of right-sided pleural effusion, status post thoracentesis. No pneumothorax identified. There is some infiltrate in the left upper lobe. There appears to be infiltrate in the right upper lobe as well. The heart is enlarged but stable. Changes of median sternotomy. Cardiac pacer is in place. IMPRESSION: Reduction in right pleural effusion, status post thoracentesis. No pneumothorax is seen. Dictated by: Dictated on workstation # [id number]
--- NOTE | 2021-10-03 11:57 | Diagnostic Imaging Report ---
INDICATION: Left pleural effusion. Sonographic guidance was provided for Dr. Henderson for performance of right-sided thoracentesis. No imaging was obtained. IMPRESSION: Sonographic guidance for Dr. Henderson for right-sided thoracentesis. Dictated by: Dictated on workstation # [id number]
[2021-10-03 12:30] LABS: AMYLASE,BODY FLUID 13 U/L; GLUCOSE,BODY FLUID 239 MG/DL; LDH,BODY FLUID 84 U/L
--- NOTE | 2021-10-03 13:54 | Progress Note - Cardiology ---
Cardiology SOAP Progress Note Subjective: Shortness of breath better Persistent gen malaise No cp No syncope since admission Objective: I&O/Vital Signs 10/03/21 10/03/21 10/03/21 10/03/21 02:36 04:00 06:46 07:00 Temp 36.6 Pulse 70 74 70 70 Resp 22 17 20 B/P (MAP) 99/33 (55) Pulse Ox 95 96 93 O2 Delivery NIV CPAP O2 Flow Rate 30.00 60.00 30.00 10/03/21 10/03/21 10/03/21 10/03/21 07:53 09:00 10:38 12:31 Temp 36.1 Pulse 70 70 75 Resp 20 23 B/P (MAP) 102/37 (58) Pulse Ox 95 94 95 O2 Delivery NIV CPAP NIV CPAP O2 Flow Rate 60.00 30.00 FiO2 30 10/02/21 23:59 Intake Total 150 ml Output Total 2500 ml Balance -2350 ml Weight (Pounds): 226 Weight (Ounces): 9.6 Weight (Calculated Kilograms): 102.053882 Constitutional: AAO x 3, well-developed, well-nourished Respiratory: chest expansion is symmetric, chest is bilaterally symmetric, other Cardiovascular: regular rate-rhythm, S1 and S2, systolic murmur Gastrointestional: soft, round Extremities: other, no lower extremity edema bilateral Neurologic/Psychiatric: other Skin: other Results/Procedures: Labs Laboratory Tests 10/02/21 16:11: Glucometer 116H 10/02/21 17:00: Troponin I 0.042H 10/02/21 20:18: Glucometer 137H 10/03/21 05:49: Glucometer 218H 10/03/21 05:50: White Blood Count 5.0, Red Blood Count 2.67L, Hemoglobin 7.8L, Hematocrit 26L, Mean Corpuscular Volume 96, Mean Corpuscular Hemoglobin 29, Mean Corpuscular Hemoglobin Concent 31L, Red Cell Distribution Width 16.8H, Platelet Count 136, Mean Platelet Volume 10.6, Immature Granulocyte % (Auto) 0, Neutrophils (%) (Auto) 69, Lymphocytes (%) (Auto) 19, Monocytes (%) (Auto) 11, Eosinophils (%) (Auto) 1, Basophils (%) (Auto) 1, Neutrophils # (Auto) 3.5, Lymphocytes # (Auto) 0.9L, Monocytes # (Auto) 0.5, Eosinophils # (Auto) 0.1, Basophils # (Auto) 0.0, Immature Granulocyte # (Auto) 0.0, Sodium Level 141, Potassium Level 4.3, Chloride Level 100, Carbon Dioxide Level 30, Anion Gap 11, Blood Urea Nitrogen 54H, Creatinine 1.78H, Estimat Glomerular Filtration Rate 36, BUN/Creatinine Ratio 30, Glucose Level 231H, Calcium Level 8.4L, Magnesium Level 2.1 10/03/21 11:25: Body Fluid Chloride 102, Body Fluid Glucose 239, Body Fluid Total Protein 2.0, Body Fluid Lactate Dehydrogenase 84, Body Fluid Amylase 13, Body Fluid Creatinine 1.63 Laboratory Tests 10/02/21 09:40 10/03/21 05:50 A/P: Assessment: Ac CHF of undetermined etiology - Echo 10/02/21: Left ventricle: Mild LVH, impaired LV function with mild to mod global hypokinesis and LVEF 35-40%, mild MAC, mod MR, AoV sclerosis w/o stenosis, mild AI, mild to mod TR, PASP 50-55 mmHg, pleural effusions seen. Near-syncope of undetermined etiology - no further episodes Melena - management per Medical and Surg services CKD 3 - probably secondary to diabetic nephropathy Acute on chronic systolic CHF CAD - reported h/o CABG x 4 vessel - followed by his land acquisition manager Dr Parada - Echo of 04/11/20: LVEF 40-45%, grade 3 wolf dysfunction, biatrial enlargement, PASP 55-60 mmHg PPM - pt states it is followed by Dr. Parada his primary land acquisition manager - interrogation of 10/02/21 shows dual chamber pacemaker in the DOOR mode, functioning normally (as directed by the DOOR mode). 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 Henderson d/t ischemic colon DM 2 HTN HLD Macular degeneration Tobaccoism - smokes cigars Prob COPD BPH with urinary retention and hematuria - managed per Dr. Sal Plan: Consider switching mode to DDDR. We will defer to his primary land acquisition manager, Dr Parada, because we are unaware of why the mode is DOOR. DOOR appear adequate for now Acute on chronic systolic CHF - treat with diuretics CKD 3 - monitor lab closely Melena reported by pt and family - management per Medical and Surgical services Pleural eff may need thoracentesis - management per Medical and Surgical services PAF - continue OAC with Xarelto - reduced dose d/t renal function. Xarelto is being held today in anticipation of endoscopy/thoracentesis by Dr Henderson who is on surgical consult Replace electrolytes as indicated JOSIAH MORENO MD FACP FAC CCDS Oct 03, 2021 13:54
[2021-10-03 14:05] LABS: BODY FLUID APPEARENCE SLT BLDY; BODY FLUID COLOR YELLOW; BODY FLUID SOURCE PLEURAL
[2021-10-03 14:06] LABS: BF OTHER CELLS 45 %; BODY FLUID RBC COUNT 13400 /uL; BODY FLUID WBC TOTAL COUNT 150 /uL; LYMPHOCYTES,BODY FLUID 48 %
[2021-10-03 14:13] LABS: BODY FLUID SPECIFIC GRAVITY 1.015
[2021-10-03] MEDS: KCL 20 MEQ TAB (K-DUR) PO SCH ×2 (14:30→17:37)
[2021-10-03] MEDS: TAMSULOSIN 0.4 MG (FLOMAX) CAP PO SCH ×2 (14:31→22:31)
[2021-10-03] MEDS: CALCIUM CARBONATE 600 MG (CALCARB) TAB PO SCH (14:31)
[2021-10-03] MEDS ORDERED: MIDAZOLAM 2 MG/2 ML (VERSED) VIAL ONE (14:36)
[2021-10-03] MEDS ORDERED: KETAMINE SYRINGE 50 MG/5 ML SYRINGE ONE (14:37)
[2021-10-03] MEDS ORDERED: proPOfol 200 MG/20 ML (DIPRIVAN) VIAL IV ONE (14:37)
[2021-10-03] MEDS ORDERED: LACTATED RINGERS 1,000 ML IV ONE (14:39)
--- NOTE | 2021-10-03 14:55 | Progress Note-Post Operative ---
Post-Operative Progess Note Surgeon (s)/Motorcycle Subassembly Repairer (s) Surgeon NEHAL GREENBERG DO Motorcycle Subassembly Repairer: na Pre-Operative Diagnosis melena Post-Operative Diagnosis av malformation, reflux esophagitis, duodenal polyp Procedure & Operative Findings Date of Procedure 10/03/21 Procedure Performed/Findings egd c cold bx polypectomy duodenum and biopsies antrum and ge Anesthesia Type per clerk travel reservations Estimated Blood Loss Estimated blood loss (mL): scant Specimens/Packing Specimens Removed duodenal polyp, antrum, ge NEHAL GREENBERG DO Oct 03, 2021 14:55
--- NOTE | 2021-10-03 14:58 | Anesthesia-General Post-Op ---
MAC Patient Condition Mental Status/LOC: Same as Preop Cardiovascular: Satisfactory Nausea/Vomiting: Absent Respiratory: Satisfactory Pain: Controlled Complications: Absent Post Op Complications Complications None Follow Up Care/Instructions Patient Instructions None needed. Anesthesiology Discharge Order Discharge Order Patient is doing well, no complaints, stable vital signs, no apparent adverse anesthesia problems. No complications reported per nursing. VARUN OLSON CRNA Oct 03, 2021 14:58
[2021-10-03] MEDS ORDERED: LACTATED RINGERS 1,000 ML IV STA (15:13)
[2021-10-03] MEDS ORDERED: HURRICAINE EXT TUBE (BENZOCAINE) XX PRN (15:15)
[2021-10-03] MEDS: RIVAROXABAN 15 MG TABLET (XARELTO) PO SCH (15:37)
[2021-10-03] MEDS: PANTOPRAZOLE 40 MG (PROTONIX) VIAL IV SCH (15:47)
[2021-10-03] MEDS: SUCRALFATE 1 GM (CARAFATE) TAB PO SCH ×2 (15:55→22:31)
[2021-10-03] MEDS: FLUoxetine HCL 20 MG (PROzac) CAP PO SCH (17:36)
[2021-10-03] MEDS: FINASTERIDE (PROSCAR) 5 MG TAB PO SCH (17:36)
[2021-10-03] MEDS: ATENOLOL 25 MG (TENORMIN) TAB PO SCH (17:37)
[2021-10-03] MEDS ORDERED: RIVAROXABAN 20 MG TABLET (XARELTO) PO SCH (18:00)
[2021-10-04] VITALS (7 sets, daily range): BP systolic 88–120; BP diastolic 30–62
--- NOTE | 2021-10-04 01:07 | OPERATIVE REPORT ---
DATE OF SERVICE: 10/03/2021 PREOPERATIVE DIAGNOSIS: Right pleural effusion. POSTOPERATIVE DIAGNOSIS: Right pleural effusion. PROCEDURE: Right ultrasound-guided thoracentesis. SURGEON: Nehal Henderson DO ANESTHESIA: A 1% lidocaine 3 mL. ESTIMATED BLOOD LOSS: None. COMPLICATIONS: None. INDICATIONS: The patient is an 86-year-old male with a right pleural effusion requiring BiPAP. The patient understands risks and benefits of procedure and wishes to proceed. Consent was signed in the chart. DESCRIPTION OF PROCEDURE: The patient was in the sitting position at bedside, leaned over a table. Ultrasound was used to localize the largest pocket of the right chest cavity. This was then marked, prepped and draped in a sterile fashion. Timeout was performed. Local anesthetic was infiltrated. An 11 blade scalpel was used to make a small skin incision and [id number] needle and catheter were then advanced through the right posterior back until fluid was returned. The catheter was then advanced and the needle was removed. 1500 mL of strawberry-colored fluid was withdrawn. Once this occurred, the catheter was removed and sterile bandage was applied. The patient tolerated procedure well without any complications, taken to the recovery room in stable condition. Job ID: [id number] DocumentID: [id number] Dictated Date: 10/03/2021 14:26:24 Canceling And Cutting Control Clerk Date: 10/03/2021 21:54:17 Dictated By: NEHAL HENDERSON DO
[2021-10-04] MEDS: RT-ALBUTEROL SULF 2.5 MG/3 ML PRE-MIX VIAL INH SCH ×6 (02:24→22:15)
--- NOTE | 2021-10-04 03:01 | Progress Note - Hospitalist ---
JACINTA SAENZ MED STUDENT 10/04/21 0301: Subjective HPI/CC On Admission Date Seen by Provider: Oct 03, 2021 Time Seen by Provider: 08:50 Chief complaint: Shortness of breath History of present illness: This is an 86-year-old white male who has a past medical history of congestive heart failure who is heading to his cardiology appointment with Dr. Parada in [place] who became so short of breath he came to the ER found to have florid congestive heart failure exacerbation requiring BiPAP. Currently he is resting comfortably. Home meds have been restarted. Subjective/Events-last exam Pt resting in bed, NAD. Arousable to voice. Difficult to communicate due to BiPAP face mask. States pain/discomfort in epigastric region. No nausea/vomiting. Dyspneic and tachypneic. No questions or concerns. Review of Systems General: No Chills HEENT: No Visual Changes Pulmonary: Dyspnea; No Cough, No Pleuritic Chest Pain Cardiovascular: Chest Pain (reports some discomfort epigastric/low thoracic substernal); No: Edema Gastrointestinal: Abdominal Pain (epigastric); No: Nausea, Vomiting, Diarrhea, Constipation Genitourinary: No Dysuria; Hematuria, Other (reyes in place) Musculoskeletal: No: neck pain, shoulder pain, back pain Neurological: Weakness, Numbness (LLE); No: Confusion Objective Exam Vital Signs Vital Signs Date Time Temp Pulse Resp B/P (MAP) Pulse Ox O2 Delivery O2 Flow Rate FiO2 10/04/21 02:25 94 Nasal Cannula 5.00 10/04/21 01:00 70 10/03/21 22:31 36.2 10/03/21 15:28 15 117/54 (75) 10/03/21 09:00 30 Capillary Refill : Less Than 3 Seconds General Appearance: No Apparent Distress, Chronically ill, Obese HEENT: PERRL/EOMI, Normal ENT Inspection Neck: Full Range of Motion, Normal Inspection, Non Tender, Supple Respiratory: Chest Non Tender, No Accessory Muscle Use, Decreased Breath Sounds, Expiration, Rhonci, Other (on BiPAP) Cardiovascular: No JVD, Normal Peripheral Pulses, Systolic Murmur, Irregularly Irregular, Other (Afib, paced beat with associated ECG changes) Gastrointestinal: Normal Bowel Sounds, Non Tender, Soft Rectal: Deferred Back: Normal Inspection, No CVA Tenderness, No Vertebral Tenderness Extremity: Normal Capillary Refill, Non Tender, No Calf Tenderness, Other (R BKA) Neurologic/Psychiatric: Alert, Other (reports numbness in LLE, flat affect) Skin: Normal Color, Warm/Dry Lymphatic: No Adenopathy Results/Procedures Lab Laboratory Tests 10/03/21 05:50 Patient resulted labs reviewed. Assessment/Plan Assessment and Plan Assess & Plan/Chief Complaint Acute COPD exacerbation ABG: PCO2 59, pH 7.35, PO2 80, HCO3 33 BiPAP for respiratory acidosis CXR: bilateral pleural effusions, edema/infection of upper lobes General surgery consulted; possible thoracentesis Melena Hgb 9.0 NPO for EGD later today CAD, CABG, Pacemaker, HTN, HLD Cardiology consulted; pacemaker interrogated/working, plan for echo Recently started on Xarelto, possible cause of melena MERNA Cr 1.7 IDDM Insulin sliding scale MIRNA PAZ DO 10/04/21 0908: Subjective Subjective/Events-last exam Patient doing the same Palliative care consult Unsure recoverability Assessment/Plan Assessment and Plan Assess & Plan/Chief Complaint Palliative care consult Supervisory-Addendum Brief Verification & Attestation Participated in pt care: history, MDM, physical Personally performed: exam, history, MDM, supervision of care Care discussed with: Medical Student Procedures: n/a Results interpretation: Verified all documentation Verification and Attestation of Medical Student E/M Service A medical student performed and documented this service in my presence. I reviewed and verified all information documented by the medical student and made modifications to such information, when appropriate. I personally performed the physical exam and medical decision making. Mirna Paz, Oct 04, 2021,09:07 JACINTA SAENZ MED STUDENT Oct 04, 2021 03:01 MIRNA PAZ DO Oct 04, 2021 09:08
[2021-10-04] MEDS: inSUlin ASPART (NovoLOG) 1 UNIT/0.01 ML (CHARGE PER UNIT) SC SCH ×4 (06:09→22:10)
[2021-10-04] MEDS: MULTIVIT W/MINERALS TAB (THERAGRAN M) PO SCH (06:16)
[2021-10-04] MEDS: FUROSEMIDE 40 MG/4 ML INJ (LASIX) IV SCH (06:16)
[2021-10-04] MEDS: SUCRALFATE 1 GM (CARAFATE) TAB PO SCH ×4 (06:16→22:17)
[2021-10-04] MEDS: CATHETER FLUSH 10 ML SYR IV SCH ×3 (06:17→22:17)
[2021-10-04 06:31] LABS: BASOPHILS % (AUTO) 1 % (0-10); EOSINOPHILS # (AUTO) 0.2 10^3/uL (0.0-0.3); EOSINOPHILS % (AUTO) 3 % (0-10); HEMATOCRIT 27 % (40-54); HEMOGLOBIN 8.1 g/dL (13.3-17.7); LYMPHOCYTES # (AUTO) 1.3 10^3/uL (1.0-4.0); LYMPHOCYTES % (AUTO) 22 % (12-44); MEAN CORPUSCULAR HEMOGLOBIN 29 pg (25-34); MEAN CORPUSCULAR HGB CONC 30 g/dL (32-36); MEAN CORPUSCULAR VOLUME 96 fL (80-99); MEAN PLATELET VOLUME 10.5 fL (9.0-12.2); MONOCYTES # (AUTO) 0.6 10^3/uL (0.0-1.0); MONOCYTES % (AUTO) 10 % (0-12); NEUTROPHILS # (AUTO) 3.7 10^3/uL (1.8-7.8); NEUTROPHILS % (AUTO) 64 % (42-75); PLATELET COUNT 138 10^3/uL (130-400); WHITE BLOOD COUNT 5.8 10^3/uL (4.3-11.0)
[2021-10-04 06:52] LABS: ALBUMIN 2.8 GM/DL (3.2-4.5); BILIRUBIN,TOTAL 0.9 MG/DL (0.1-1.0); CALCIUM 8.1 MG/DL (8.5-10.1); CREATININE SERUM 1.86 MG/DL (0.60-1.30); POTASSIUM 4.3 MMOL/L (3.6-5.0); TOTAL PROTEIN 5.3 GM/DL (6.4-8.2)
[2021-10-04] MEDS: lisINopril 20 MG (PRINIVIL) TABLET PO SCH (08:29)
[2021-10-04] MEDS: TAMSULOSIN 0.4 MG (FLOMAX) CAP PO SCH ×2 (08:29→22:17)
[2021-10-04] MEDS: ASPIRIN E.C. 81 MG (ECOTRIN) TAB PO SCH (08:29)
[2021-10-04] MEDS: KCL 20 MEQ TAB (K-DUR) PO SCH ×2 (08:29→17:40)
[2021-10-04] MEDS: PANTOPRAZOLE 40 MG (PROTONIX) VIAL IV SCH (08:29)
[2021-10-04] MEDS: CALCIUM CARBONATE 600 MG (CALCARB) TAB PO SCH (08:29)
[2021-10-04] MEDS: LORazepam 0.5 MG (ATIVAN) TABLET PO SCH (08:29)
[2021-10-04] MEDS: GABAPENTIN 300 MG (NEURONTIN) CAP PO SCH ×2 (08:29→22:17)
[2021-10-04] MEDS: ASCORBIC ACID (VIT C) 500 MG TABLET PO SCH (08:29)
[2021-10-04] MEDS: inSUlin NPH/REG (NovoLIN 70/30) CHARGE PER UNIT SQ SCH ×2 (08:30→17:53)
--- NOTE | 2021-10-04 12:01 | Progress Note - Hospitalist ---
Subjective HPI/CC On Admission Date Seen by Provider: Oct 04, 2021 Time Seen by Provider: 11:50 Chief complaint: Shortness of breath History of present illness: This is an 86-year-old white male who has a past medical history of congestive heart failure who is heading to his cardiology appointment with Dr. Parada in [place] who became so short of breath he came to the ER found to have florid congestive heart failure exacerbation requiring BiPAP. Currently he is resting comfortably. Home meds have been restarted. Subjective/Events-last exam Patient doing much better Off BiPAP Moving to fourth floor Denies any pain Review of Systems General: Fatigue, Malaise Objective Exam Vital Signs Vital Signs Date Time Temp Pulse Resp B/P (MAP) Pulse Ox O2 Delivery O2 Flow Rate FiO2 10/05/21 04:26 36.4 71 20 105/52 (69) 93 Nasal Cannula 5.00 10/03/21 09:00 30 Capillary Refill : Less Than 3 Seconds General Appearance: No Apparent Distress, WD/WN, Chronically ill, Obese Respiratory: Lungs Clear, Normal Breath Sounds Cardiovascular: Regular Rate, Rhythm Neurologic/Psychiatric: Alert, Oriented x3 Results/Procedures Lab Laboratory Tests 10/04/21 06:10 Patient resulted labs reviewed. Assessment/Plan Assessment and Plan Assess & Plan/Chief Complaint Acute COPD exacerbation ABG: PCO2 59, pH 7.35, PO2 80, HCO3 33 BiPAP for respiratory acidosis CXR: bilateral pleural effusions, edema/infection of upper lobes General surgery consulted; possible thoracentesis Melena Hgb 9.0 NPO for EGD later today CAD, CABG, Pacemaker, HTN, HLD Cardiology consulted; pacemaker interrogated/working, plan for echo Recently started on Xarelto, possible cause of melena MERNA Cr 1.7 IDDM Insulin sliding scale Plan: Much improved AGATHA PAZ DO Oct 04, 2021 12:01
--- NOTE | 2021-10-04 14:07 | Progress Note - Cardiology ---
Cardiology SOAP Progress Note Subjective: Gen malaise and weakness Shortness of breath with mild activity No cp or palp or syncope No n/v/d Objective: I&O/Vital Signs 10/04/21 10/04/21 10/04/21 10/04/21 02:25 04:00 07:00 07:43 Temp 37.2 36.4 Pulse 75 70 70 Resp 17 18 B/P (MAP) 88/53 (65) 104/30 (54) Pulse Ox 94 94 99 O2 Delivery Nasal Cannula Nasal Cannula Nasal Cannula O2 Flow Rate 5.00 5.00 5.00 10/04/21 10/04/21 10/04/21 10/04/21 07:45 09:16 11:12 11:31 Temp 36.3 Pulse 70 Resp 19 B/P (MAP) 108/45 (66) Pulse Ox 97 99 95 94 O2 Delivery Nasal Cannula NIV CPAP Nasal Cannula Nasal Cannula O2 Flow Rate 5.00 5.00 5.00 5.00 10/04/21 00:00 Intake Total 340 ml Output Total 6225 ml Balance -5885 ml Weight (Pounds): 226 Weight (Ounces): 9.6 Weight (Calculated Kilograms): 102.284505 Constitutional: AAO x 3, well-developed, well-nourished Respiratory: chest expansion is symmetric, chest is bilaterally symmetric, other Cardiovascular: regular rate-rhythm, S1 and S2, systolic murmur Gastrointestional: soft, round Extremities: other (R BKA), no lower extremity edema bilateral Neurologic/Psychiatric: other Skin: other Results/Procedures: Labs Laboratory Tests 10/03/21 14:23: SARS-CoV-2 RNA (RT-PCR) Not Detected 10/03/21 15:34: Glucometer 212H 10/03/21 22:13: Glucometer 155H 10/04/21 06:07: Glucometer 175H 10/04/21 06:10: White Blood Count 5.8, Red Blood Count 2.78L, Hemoglobin 8.1L, Hematocrit 27L, Mean Corpuscular Volume 96, Mean Corpuscular Hemoglobin 29, Mean Corpuscular Hemoglobin Concent 30L, Red Cell Distribution Width 16.9H, Platelet Count 138, Mean Platelet Volume 10.5, Immature Granulocyte % (Auto) 0, Neutrophils (%) (Auto) 64, Lymphocytes (%) (Auto) 22, Monocytes (%) (Auto) 10, Eosinophils (%) (Auto) 3, Basophils (%) (Auto) 1, Neutrophils # (Auto) 3.7, Lymphocytes # (Auto) 1.3, Monocytes # (Auto) 0.6, Eosinophils # (Auto) 0.2, Basophils # (Auto) 0.0, Immature Granulocyte # (Auto) 0.0, Sodium Level 139, Potassium Level 4.3, Chloride Level 99, Carbon Dioxide Level 31, Anion Gap 9, Blood Urea Nitrogen 54H , Creatinine 1.86H, Estimat Glomerular Filtration Rate 35, BUN/Creatinine Ratio 29, Glucose Level 186H, Calcium Level 8.1L, Corrected Calcium 9.1, Total Bilirubin 0.9, Aspartate Amino Transf (AST/SGOT) 19, Alanine Aminotransferase (ALT/SGPT) 11, Alkaline Phosphatase 82, Total Protein 5.3L, Albumin 2.8L 10/04/21 10:13: Glucometer 205H 10/04/21 11:24: Glucometer 214H A/P: Assessment: Ac-on-ch CHF, systolic - Echo 10/02/21: Left ventricle: Mild LVH, impaired LV function with mild to mod global hypokinesis and LVEF 35-40%, mild MAC, mod MR, AoV sclerosis w/o stenosis, mild AI, mild to mod TR, PASP 50-55 mmHg, pleural effusions seen - s/p thoracentesis on 10/03/21: transudate, likely related to CHF Near-syncope of undetermined etiology - no further episodes Melena - EGD 10/03/21 (Dr Henderson): av malformation, reflux esophagitis, duodenal polyp; treated with polypectomy duodenum and biopsies antrum and ge CKD 3 - probably secondary to diabetic nephropathy CAD - reported h/o CABG x 4 vessel - followed by his gear grinding machine operator Dr Parada - Echo of 04/11/20: LVEF 40-45%, grade 3 wolf dysfunction, biatrial enlargement, PASP 55-60 mmHg PPM - pt states it is followed by Dr. Parada his primary gear grinding machine operator - interrogation of 10/02/21 shows dual chamber pacemaker in the DOOR mode, functioning normally (as directed by the DOOR mode). 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 Henderson d/t ischemic colon DM 2 HTN HLD Macular degeneration Tobaccoism - smokes cigars Prob COPD BPH with urinary retention and hematuria - managed per Dr. Sal Plan: Comples management due to multiple CV comorbidities Continue diuretic therapy Consider switching mode to DDDR. We will defer to his primary gear grinding machine operator, Dr Parada, because we are unaware of why the mode is DOOR. DOOR appear adequate for now Dr Henderson managing melena. We recommend resumption of OAC as soon as acceptable from a surgical standpoin Monitor labs Replace electrolytes as indicated JOSIAH MORENO MD FACP [facility]S Oct 04, 2021 14:07
[2021-10-04] MEDS: RIVAROXABAN 15 MG TABLET (XARELTO) PO SCH (16:45)
[2021-10-04] MEDS: FLUoxetine HCL 20 MG (PROzac) CAP PO SCH (17:40)
[2021-10-04] MEDS: FINASTERIDE (PROSCAR) 5 MG TAB PO SCH (17:40)
[2021-10-04] MEDS: ATENOLOL 25 MG (TENORMIN) TAB PO SCH (17:41)
[2021-10-04] MEDS: HYDROcodone/APAP 5 MG/325 MG (LORTAB) TAB PO PRN (17:41)
[2021-10-05] VITALS (8 sets, daily range): BP systolic 105–126; BP diastolic 52–64
[2021-10-05] MEDS: RT-ALBUTEROL SULF 2.5 MG/3 ML PRE-MIX VIAL INH SCH ×5 (02:52→21:43)
[2021-10-05] MEDS: inSUlin ASPART (NovoLOG) 1 UNIT/0.01 ML (CHARGE PER UNIT) SC SCH ×4 (05:37→20:12)
[2021-10-05] MEDS: CATHETER FLUSH 10 ML SYR IV SCH ×3 (06:19→20:13)
[2021-10-05] MEDS: SUCRALFATE 1 GM (CARAFATE) TAB PO SCH ×4 (06:19→20:13)
[2021-10-05] MEDS: FUROSEMIDE 40 MG/4 ML INJ (LASIX) IV SCH (06:19)
[2021-10-05] MEDS: MULTIVIT W/MINERALS TAB (THERAGRAN M) PO SCH (06:19)
[2021-10-05 06:45] LABS: BASOPHILS % (AUTO) 0 % (0-10); EOSINOPHILS # (AUTO) 0.2 10^3/uL (0.0-0.3); EOSINOPHILS % (AUTO) 4 % (0-10); HEMATOCRIT 26 % (40-54); HEMOGLOBIN 8.1 g/dL (13.3-17.7); LYMPHOCYTES # (AUTO) 1.5 10^3/uL (1.0-4.0); LYMPHOCYTES % (AUTO) 25 % (12-44); MEAN CORPUSCULAR HEMOGLOBIN 29 pg (25-34); MEAN CORPUSCULAR HGB CONC 31 g/dL (32-36); MEAN CORPUSCULAR VOLUME 96 fL (80-99); MEAN PLATELET VOLUME 10.4 fL (9.0-12.2); MONOCYTES # (AUTO) 0.7 10^3/uL (0.0-1.0); MONOCYTES % (AUTO) 11 % (0-12); NEUTROPHILS # (AUTO) 3.5 10^3/uL (1.8-7.8); NEUTROPHILS % (AUTO) 59 % (42-75); PLATELET COUNT 146 10^3/uL (130-400); WHITE BLOOD COUNT 5.9 10^3/uL (4.3-11.0)
[2021-10-05] MEDS: HYDROcodone/APAP 5 MG/325 MG (LORTAB) TAB PO PRN ×2 (06:50→20:13)
[2021-10-05 07:17] LABS: ALBUMIN 2.8 GM/DL (3.2-4.5); BILIRUBIN,TOTAL 0.9 MG/DL (0.1-1.0); CALCIUM 8.2 MG/DL (8.5-10.1); CREATININE SERUM 1.83 MG/DL (0.60-1.30); POTASSIUM 4.8 MMOL/L (3.6-5.0); TOTAL PROTEIN 5.4 GM/DL (6.4-8.2)
[2021-10-05] MEDS: KCL 20 MEQ TAB (K-DUR) PO SCH ×2 (09:25→16:59)
[2021-10-05] MEDS: lisINopril 20 MG (PRINIVIL) TABLET PO SCH (09:25)
[2021-10-05] MEDS: CALCIUM CARBONATE 600 MG (CALCARB) TAB PO SCH (09:25)
[2021-10-05] MEDS: LORazepam 0.5 MG (ATIVAN) TABLET PO SCH (09:25)
[2021-10-05] MEDS: TAMSULOSIN 0.4 MG (FLOMAX) CAP PO SCH ×2 (09:25→20:13)
[2021-10-05] MEDS: GABAPENTIN 300 MG (NEURONTIN) CAP PO SCH ×2 (09:26→20:13)
[2021-10-05] MEDS: PANTOPRAZOLE 40 MG (PROTONIX) TAB PO SCH (09:26)
[2021-10-05] MEDS: ASCORBIC ACID (VIT C) 500 MG TABLET PO SCH (09:26)
[2021-10-05] MEDS: ASPIRIN E.C. 81 MG (ECOTRIN) TAB PO SCH (09:26)
[2021-10-05] MEDS: inSUlin NPH/REG (NovoLIN 70/30) CHARGE PER UNIT SQ SCH ×2 (10:15→17:04)
--- NOTE | 2021-10-05 11:50 | Progress Note - Hospitalist ---
Subjective HPI/CC On Admission Date Seen by Provider: Oct 05, 2021 Time Seen by Provider: 11:00 Chief complaint: Shortness of breath History of present illness: This is an 86-year-old white male who has a past medical history of congestive heart failure who is heading to his cardiology appointment with Dr. Parada in [place] who became so short of breath he came to the ER found to have florid congestive heart failure exacerbation requiring BiPAP. Currently he is resting comfortably. Home meds have been restarted. Subjective/Events-last exam Patient doing well Labs stable Creatinine 1.8 No shortness of breath No longer on BiPAP Review of Systems General: Fatigue Objective Exam Vital Signs Vital Signs Date Time Temp Pulse Resp B/P (MAP) Pulse Ox O2 Delivery O2 Flow Rate FiO2 10/05/21 16:00 36.4 69 18 106/55 (72) 96 Nasal Cannula 5.00 10/03/21 09:00 30 Capillary Refill : Less Than 3 Seconds General Appearance: No Apparent Distress, WD/WN, Chronically ill Respiratory: Lungs Clear, Normal Breath Sounds Cardiovascular: Regular Rate, Rhythm Neurologic/Psychiatric: Alert, Oriented x3, No Motor/Sensory Deficits, Normal Mood/Affect Results/Procedures Lab Laboratory Tests 10/05/21 06:29 Patient resulted labs reviewed. Assessment/Plan Assessment and Plan Assess & Plan/Chief Complaint Acute COPD exacerbation ABG: PCO2 59, pH 7.35, PO2 80, HCO3 33 BiPAP for respiratory acidosis CXR: bilateral pleural effusions, edema/infection of upper lobes General surgery consulted; possible thoracentesis Melena Hgb 9.0 NPO for EGD later today CAD, CABG, Pacemaker, HTN, HLD Cardiology consulted; pacemaker interrogated/working, plan for echo Recently started on Xarelto, possible cause of melena MERNA Cr 1.7 IDDM Insulin sliding scale Plan: Much improved 10/05/2021: Supportive care Continue home meds AGATHA PAZ DO Oct 05, 2021 11:50
--- NOTE | 2021-10-05 14:39 | Progress Note - Cardiology ---
Cardiology SOAP Progress Note Subjective: Shortness of breath somewhat better No cp or palp or syncope No n/v/d Gen weakness and malaise present Objective: I&O/Vital Signs 10/05/21 10/05/21 10/05/21 10/05/21 02:52 04:26 07:07 07:08 Temp 36.4 36.8 Pulse 71 69 Resp 20 20 B/P (MAP) 105/52 (69) 126/56 (79) Pulse Ox 94 93 95 95 O2 Delivery Nasal Cannula Nasal Cannula Nasal Cannula Nasal Cannula O2 Flow Rate 5.00 5.00 5.00 5.00 10/05/21 10/05/21 10/05/21 09:00 10:48 11:16 Temp 36.5 Pulse 71 Resp 20 B/P (MAP) 119/56 (77) Pulse Ox 91 95 O2 Delivery High Flow N/C Nasal Cannula Nasal Cannula O2 Flow Rate 5.00 5.00 5.00 10/05/21 00:00 Intake Total 650 ml Output Total 1025 ml Balance -375 ml Weight (Pounds): 226 Weight (Ounces): 9.6 Weight (Calculated Kilograms): 102.814677 Constitutional: well-developed, well-nourished, other (slow to respond but appears oriented) Respiratory: chest expansion is symmetric, chest is bilaterally symmetric, other Cardiovascular: regular rate-rhythm, S1 and S2, systolic murmur Gastrointestional: soft, round Extremities: other (R BKA), no lower extremity edema bilateral Neurologic/Psychiatric: other (sluggish responses but appears oriented and seems to be able to move all limbs) Skin: warm/dry; No rash on exposed areas, No ulcerations on exposed areas Results/Procedures: Labs Laboratory Tests 10/04/21 15:49: Glucometer 184H 10/04/21 20:45: Glucometer 178H 10/05/21 05:22: Glucometer 157H 10/05/21 06:29: White Blood Count 5.9, Red Blood Count 2.76L, Hemoglobin 8.1L, Hematocrit 26L, Mean Corpuscular Volume 96, Mean Corpuscular Hemoglobin 29, Mean Corpuscular Hemoglobin Concent 31L, Red Cell Distribution Width 16.6H, Platelet Count 146, Mean Platelet Volume 10.4, Immature Granulocyte % (Auto) 0, Neutrophils (%) (Auto) 59, Lymphocytes (%) (Auto) 25, Monocytes (%) (Auto) 11, Eosinophils (%) (Auto) 4, Basophils (%) (Auto) 0, Neutrophils # (Auto) 3.5, Lymphocytes # (Auto) 1.5, Monocytes # (Auto) 0.7, Eosinophils # (Auto) 0.2, Basophils # (Auto) 0.0, Immature Granulocyte # (Auto) 0.0, Sodium Level 137, Potassium Level 4.8, Chloride Level 98, Carbon Dioxide Level 31, Anion Gap 8, Blood Urea Nitrogen 51H , Creatinine 1.83H, Estimat Glomerular Filtration Rate 35, BUN/Creatinine Ratio 28, Glucose Level 145H, Calcium Level 8.2L, Corrected Calcium 9.2, Total Bilirubin 0.9, Aspartate Amino Transf (AST/SGOT) 27, Alanine Aminotransferase (ALT/SGPT) 13, Alkaline Phosphatase 81, Total Protein 5.4L, Albumin 2.8L 10/05/21 11:19: Glucometer 214H Laboratory Tests 10/04/21 06:10 10/05/21 06:29 A/P: Assessment: Ac-on-ch CHF, systolic - Echo 10/02/21: Left ventricle: Mild LVH, impaired LV function with mild to mod global hypokinesis and LVEF 35-40%, mild MAC, mod MR, AoV sclerosis w/o steno sis, mild AI, mild to mod TR, PASP 50-55 mmHg, pleural effusions seen - s/p thoracentesis on 10/03/21: transudate, likely related to CHF Near-syncope of undetermined etiology - no further episodes Melena - EGD 10/03/21 (Dr Henderson): av malformation, reflux esophagitis, duodenal polyp; treated with polypectomy duodenum and biopsies antrum and ge CKD 3 - probably secondary to diabetic nephropathy CAD - reported h/o CABG x 4 vessel - followed by his range management specialist Dr Parada - Echo of 04/11/20: LVEF 40-45%, grade 3 wolf dysfunction, biatrial enlargement, PASP 55-60 mmHg PPM - pt states it is followed by Dr. Parada his primary range management specialist - interrogation of 10/02/21 shows dual chamber pacemaker in the DOOR mode, functioning normally (as directed by the DOOR mode). 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 Henderson d/t ischemic colon DM 2 HTN HLD Macular degeneration Tobaccoism - smokes cigars Prob COPD BPH with urinary retention and hematuria - managed per Dr. Sal Plan: Complex management due to multiple CV comorbidities Continue diuretic therapy Consider switching mode to DDDR. We will defer to his primary range management specialist, Dr Parada, because we are unaware of why the mode is DOOR. DOOR appear adequate for now Dr Henderson managing melena. We recommend resumption of OAC as soon as acceptable from a surgical standpoint; this has been deferred to the Surgical and Medical/Hospitalist services Monitor labs Replace electrolytes as indicated JOSIAH MORENO MD FACP [facility]S Oct 05, 2021 14:39
[2021-10-05] MEDS: ATENOLOL 25 MG (TENORMIN) TAB PO SCH (16:59)
[2021-10-05] MEDS: RIVAROXABAN 15 MG TABLET (XARELTO) PO SCH (16:59)
[2021-10-05] MEDS: FINASTERIDE (PROSCAR) 5 MG TAB PO SCH (16:59)
[2021-10-05] MEDS: FLUoxetine HCL 20 MG (PROzac) CAP PO SCH (17:04)
[2021-10-06] MEDS: RT-ALBUTEROL SULF 2.5 MG/3 ML PRE-MIX VIAL INH SCH ×4 (02:49→21:08)
[2021-10-06 03:23] VITALS: BP 95/54
[2021-10-06] MEDS: inSUlin ASPART (NovoLOG) 1 UNIT/0.01 ML (CHARGE PER UNIT) SC SCH ×4 (05:44→20:45)
[2021-10-06] MEDS: CATHETER FLUSH 10 ML SYR IV SCH ×3 (05:48→20:46)
[2021-10-06 06:06] LABS: BASOPHILS % (AUTO) 1 % (0-10); EOSINOPHILS # (AUTO) 0.3 10^3/uL (0.0-0.3); EOSINOPHILS % (AUTO) 5 % (0-10); HEMATOCRIT 28 % (40-54); HEMOGLOBIN 8.2 g/dL (13.3-17.7); LYMPHOCYTES # (AUTO) 1.4 10^3/uL (1.0-4.0); LYMPHOCYTES % (AUTO) 24 % (12-44); MEAN CORPUSCULAR HEMOGLOBIN 29 pg (25-34); MEAN CORPUSCULAR HGB CONC 30 g/dL (32-36); MEAN CORPUSCULAR VOLUME 97 fL (80-99); MEAN PLATELET VOLUME 10.2 fL (9.0-12.2); MONOCYTES # (AUTO) 0.6 10^3/uL (0.0-1.0); MONOCYTES % (AUTO) 10 % (0-12); NEUTROPHILS # (AUTO) 3.5 10^3/uL (1.8-7.8); NEUTROPHILS % (AUTO) 60 % (42-75); PLATELET COUNT 164 10^3/uL (130-400); WHITE BLOOD COUNT 5.8 10^3/uL (4.3-11.0)
[2021-10-06 06:12] VITALS: BP 103/58
[2021-10-06] MEDS: FUROSEMIDE 40 MG/4 ML INJ (LASIX) IV SCH (06:17)
[2021-10-06] MEDS: SUCRALFATE 1 GM (CARAFATE) TAB PO SCH ×4 (06:18→20:46)
[2021-10-06] MEDS: HYDROcodone/APAP 5 MG/325 MG (LORTAB) TAB PO PRN ×3 (06:18→20:46)
[2021-10-06] MEDS: MULTIVIT W/MINERALS TAB (THERAGRAN M) PO SCH (06:18)
[2021-10-06 06:23] LABS: BILIRUBIN,TOTAL 0.8 MG/DL (0.1-1.0); CALCIUM 8.6 MG/DL (8.5-10.1); CREATININE SERUM 2.28 MG/DL (0.60-1.30); POTASSIUM 5.6 MMOL/L (3.6-5.0)
--- NOTE | 2021-10-06 06:28 | Progress Note - Surgery ---
TULIO MCGARRY 10/06/21 0628: Subjective Time Seen by a Provider: 06:15 Subjective/Events-last exam Patient seen at bedside this morning. Day 3 post-thoracentesis and EGD. He was awake and alert. He complains of not being able to sleep much and eat some of the food due to no teeth. He has no pain, nausea, vomiting, or bloody stools. No feelings of syncope. He has questions regarding EGD results. Review of Systems General: No Chills, No Fatigue HEENT: No Head Aches, No Visual Changes Pulmonary: No Dyspnea, No Cough Cardiovascular: No: Chest Pain, Orthopnea Gastrointestinal: No: Nausea, Vomiting, Abdominal Pain, Melena, Hematochezia Genitourinary: No Dysuria, No Incontinence Musculoskeletal: No: arm pain, leg pain Neurological: No: Weakness, Change in speech Objective Exam Vital Signs Date Time Temp Pulse Resp B/P (MAP) Pulse Ox O2 Delivery O2 Flow Rate FiO2 10/06/21 06:12 70 103/58 (73) 10/06/21 03:23 36.5 69 18 95/54 (68) 95 Nasal Cannula 4.00 10/06/21 02:50 96 Nasal Cannula 5.00 10/05/21 23:30 36.8 70 18 111/64 (80) 97 Nasal Cannula 4.00 10/05/21 21:43 97 Nasal Cannula 5.00 10/05/21 20:15 High Flow N/C 5.00 10/05/21 20:05 36.8 71 20 112/55 (74) 98 Nasal Cannula 4.50 10/05/21 16:00 36.4 69 18 106/55 (72) 96 Nasal Cannula 5.00 10/05/21 15:19 36.5 71 95 10/05/21 15:16 97 Nasal Cannula 5.00 10/05/21 11:16 36.5 71 20 119/56 (77) 95 Nasal Cannula 5.00 10/05/21 10:48 91 Nasal Cannula 5.00 10/05/21 09:00 High Flow N/C 5.00 10/05/21 07:08 95 Nasal Cannula 5.00 10/05/21 07:07 36.8 69 20 126/56 (79) 95 Nasal Cannula 5.00 I & O 10/06/21 07:00 Intake Total 1320 ml Output Total 2300 ml Balance -980 ml Capillary Refill : Less Than 3 Seconds General Appearance: No Apparent Distress, WD/WN, Chronically ill HEENT: PERRL/EOMI, Normal ENT Inspection Neck: Full Range of Motion, Normal Inspection, Non Tender, Supple Respiratory: Chest Non Tender, No Accessory Muscle Use, No Respiratory Distress Cardiovascular: Regular Rate, Rhythm, No Edema Peripheral Pulses: 1+ Left Dors-Pedis (L), 1+ Radial Pulses (R), 1+ Radial Pulses (L) Gastrointestinal: non tender, soft, no organomegaly Extremity: Normal Capillary Refill, Non Tender, No Calf Tenderness, Other (R BKA) Neurologic/Psychiatric: Alert, Oriented x3, No Motor/Sensory Deficits, Normal Mood/Affect Skin: Normal Color, Warm/Dry Lymphatic: No Adenopathy Results Lab Laboratory Tests 10/05/21 06:29: White Blood Count 5.9, Red Blood Count 2.76L, Hemoglobin 8.1L, Hematocrit 26L, Mean Corpuscular Volume 96, Mean Corpuscular Hemoglobin 29, Mean Corpuscular Hemoglobin Concent 31L, Red Cell Distribution Width 16.6H, Platelet Count 146, Mean Platelet Volume 10.4, Immature Granulocyte % (Auto) 0, Neutrophils (%) (Auto) 59, Lymphocytes (%) (Auto) 25, Monocytes (%) (Auto) 11, Eosinophils (%) (Auto) 4, Basophils (%) (Auto) 0, Neutrophils # (Auto) 3.5, Lymphocytes # (Auto) 1.5, Monocytes # (Auto) 0.7, Eosinophils # (Auto) 0.2, Basophils # (Auto) 0.0, Immature Granulocyte # (Auto) 0.0, Sodium Level 137, Potassium Level 4.8, Chloride Level 98, Carbon Dioxide Level 31, Anion Gap 8, Blood Urea Nitrogen 51H , Creatinine 1.83H, Estimat Glomerular Filtration Rate 35, BUN/Creatinine Ratio 28, Glucose Level 145H, Calcium Level 8.2L, Corrected Calcium 9.2, Total Bilirubin 0.9, Aspartate Amino Transf (AST/SGOT) 27, Alanine Aminotransferase (ALT/SGPT) 13, Alkaline Phosphatase 81, Total Protein 5.4L, Albumin 2.8L 10/05/21 11:19: Glucometer 214H 10/05/21 15:56: Glucometer 246H 10/05/21 20:02: Glucometer 181H 10/05/21 20:19: Glucometer 173H 10/06/21 05:40: White Blood Count 5.8, Red Blood Count 2.88L, Hemoglobin 8.2L, Hematocrit 28L, Mean Corpuscular Volume 97, Mean Corpuscular Hemoglobin 29, Mean Corpuscular Hemoglobin Concent 30L, Red Cell Distribution Width 16.2H, Platelet Count 164, Mean Platelet Volume 10.2, Immature Granulocyte % (Auto) 0, Neutrophils (%) (Auto) 60, Lymphocytes (%) (Auto) 24, Monocytes (%) (Auto) 10, Eosinophils (%) (Auto) 5, Basophils (%) (Auto) 1, Neutrophils # (Auto) 3.5, Lymphocytes # (Auto) 1.4, Monocytes # (Auto) 0.6, Eosinophils # (Auto) 0.3, Basophils # (Auto) 0.0, Immature Granulocyte # (Auto) 0.0, Sodium Level 141, Potassium Level 5.6H, Chloride Level 100, Anion Gap 8, Blood Urea Nitrogen 58H, Creatinine 2.28H, Estimat Glomerular Filtration Rate 27, BUN/Creatinine Ratio 25, Glucose Level 131H, Calcium Level 8.6, Corrected Calcium 9.4, Total Bilirubin 0.8, Aspartate A lisa Transf (AST/SGOT) 24, Alanine Aminotransferase (ALT/SGPT) 14, Alkaline Phosphatase 82, Total Protein 6.0L, Albumin 3.0L 10/06/21 05:43: Glucometer 124H Meds Item Value Date Time Albuterol Sulfate 2.5 mg 10/05/21 2100 (Proventil RTQ6HR/INH 10/06/21 0249 Pre-Mix Nebs (Rt)) Pantoprazole 40 mg 10/05/21 0900 Sodium DAILY/PO 10/05/21 0926 (Protonix Tablet) Acetaminophen/ 1 ea 10/03/21 2215 Hydrocodone Bitart Q6H PRN/PO 10/06/21 0618 (Lortab 5 Mg Tablet) Fluoxetine HCl 20 mg 10/03/21 1800 (PROzac CAPSULE) 1800/PO 10/05/21 1704 Finasteride 5 mg 10/03/21 1800 (Proscar Tablet) 1800/PO 10/05/21 1659 Atenolol 25 mg 10/03/21 1800 (Tenormin Tablet) 1800/PO 10/05/21 1659 Sucralfate 1 gm 10/03/21 1600 (Carafate ACHS/PO 10/06/21 0618 Tablet) Lorazepam 0.5 mg 10/03/21 0900 (Ativan Tablet) DAILY/PO 10/05/21 0925 Lisinopril 20 mg 10/03/21 0900 (Zestril Tablet) DAILY/PO 10/05/21 0925 Calcium Carbonate 600 mg 10/03/21 0900 (Calcarb 600 DAILY/PO 10/05/21 0925 Tablet) Aspirin 81 mg 10/03/21 0900 (Ecotrin Tablet) DAILY/PO 10/05/21 0926 Ascorbic Acid 500 mg 10/03/21 0800 (Vitamin C DAILY@0800/PO 10/05/21 0926 Tablet) Insulin Human 10 unit 10/03/21 0800 Isoph/Insulin BIDPC/SQ 10/05/21 1704 Regular (HumuLIN 70/30 MIX (CHARGE PER UNIT)) Multivitamins/ 1 ea 10/03/21 0700 Minerals DAILY@0700/PO 10/06/21 0618 Therapeutic (Vitamins, Multi w/Minerals Tablet) Furosemide 80 mg 10/03/21 0700 (Lasix DAILY@0700/IV 10/06/21 0617 Injection) Tamsulosin HCl 0.4 mg 10/02/21 2100 (Flomax Capsule) BID/PO 10/05/212012 Gabapentin 300 mg 10/02/21 2100 (Neurontin BID/PO 10/05/212012 Capsule/Tablet) Potassium Chloride 40 meq 10/02/21 1800 (K Dur Tablet) BID WITH MEALS/PO 10/05/21 165 Insulin Aspart SLIDING SCALE A BLOO... 10/02/21 1600 (NovoLOG (CHARGE ACHS/SC PER UNIT)) Rivaroxaban 15 mg 10/02/21 1700 (Xarelto Tablet) DAILY@1700/PO 10/05/21 1659 Albuterol Sulfate 2.5 mg 10/02/21 1545 (Proventil Q2HR PRN/INH Pre-Mix Nebs (Rt)) Acetaminophen 650 mg 10/02/21 1415 (Tylenol Tablet) Q6H PRN/PO Sodium Chloride 10-40 ML 10/02/21 1400 (Catheter Flush Q8HR/IV 10/06/21 0548 Syringe) Sodium Chloride 10-40 ML 10/02/21 1400 (Catheter Flush NEEDED PRN/IV Syringe) Assessment/Plan Assessment/Plan Assessment/Plan Acute CHF exacerbation with bilateral pleural effusions Melena CKD Anemia Current use anticoagulant Hypotension Patient off BIPAP. Continue diuresis. Monitor creatinine with CMP due to CKD. Anticoagulation continued with Xarelto. Consider lowering Lisinopril to 10mg if hypotension persists. NORRIS HENDERSON DO 10/06/21 1438: Subjective Subjective/Events-last exam Patient breathing is okay he states. He is wanting to go home. He is not having abdominal pain. Denies n/v fever sweats chills shortness of breath or chest pain. Hgb stable. Objective Exam General Appearance: No Apparent Distress, WD/WN, Chronically ill HEENT: PERRL/EOMI, Normal ENT Inspection Neck: Full Range of Motion, Non Tender, Supple Respiratory: Chest Non Tender, No Accessory Muscle Use, No Respiratory Distress Cardiovascular: Regular Rate, Rhythm, No JVD Gastrointestinal: non tender, soft Extremity: Normal Capillary Refill, Non Tender, No Calf Tenderness, Other (R BKA) Neurologic/Psychiatric: Alert, Oriented x3, No Motor/Sensory Deficits, Normal Mood/Affect Skin: Normal Color, Warm/Dry Lymphatic: No Adenopathy Assessment/Plan Assessment/Plan Assessment/Plan Acute CHF exacerbation with bilateral pleural effusions Melena CKD Anemia Current use anticoagulant Hypotension Patient off BIPAP. Continue diuresis. Monitor creatinine with CMP due to CKD. Anticoagulation continued with Xarelto. Supervisory-Addendum Brief Verification & Attestation Participated in pt care: history, MDM, physical Personally performed: exam, history, MDM, supervision of care Care discussed with: Medical Student Procedures: n/a Results interpretation: Verified all documentation Verification and Attestation of Medical Student E/M Service A medical student performed and documented this service in my presence. I reviewed and verified all information documented by the medical student and made modifications to such information, when appropriate. I personally performed the physical exam and medical decision making. Norris Henderson, Oct 06, 2021,14:38 TULIO MCGARRY Oct 06, 2021 06:28 NORRIS HENDERSON DO Oct 06, 2021 14:38
[2021-10-06 07:36] VITALS: BP 113/53
[2021-10-06] MEDS: inSUlin NPH/REG (NovoLIN 70/30) CHARGE PER UNIT SQ SCH ×2 (07:51→16:58)
[2021-10-06] MEDS: LORazepam 0.5 MG (ATIVAN) TABLET PO SCH (07:52)
[2021-10-06] MEDS: lisINopril 20 MG (PRINIVIL) TABLET PO SCH (07:52)
[2021-10-06] MEDS: ASCORBIC ACID (VIT C) 500 MG TABLET PO SCH (07:53)
[2021-10-06] MEDS: PANTOPRAZOLE 40 MG (PROTONIX) TAB PO SCH (07:53)
[2021-10-06] MEDS: TAMSULOSIN 0.4 MG (FLOMAX) CAP PO SCH ×2 (07:53→20:46)
[2021-10-06] MEDS: ASPIRIN E.C. 81 MG (ECOTRIN) TAB PO SCH (07:53)
[2021-10-06] MEDS: GABAPENTIN 300 MG (NEURONTIN) CAP PO SCH ×2 (07:53→20:46)
[2021-10-06] MEDS: CALCIUM CARBONATE 600 MG (CALCARB) TAB PO SCH (07:56)
[2021-10-06] MEDS: KCL 20 MEQ TAB (K-DUR) PO SCH (07:57)
[2021-10-06 11:39] VITALS: BP 112/56
--- NOTE | 2021-10-06 13:05 | Progress Note - Cardiology ---
Cardiology SOAP Progress Note Subjective: Does not provide answers to questions in any detail Faith not report cp or palp or syncope or shortness of breath Gen malaise present No n/v/d Objective: I&O/Vital Signs 10/06/21 10/06/21 10/06/21 10/06/21 02:50 03:23 06:12 07:36 Temp 36.5 37.0 Pulse 69 70 70 Resp 18 20 B/P (MAP) 95/54 (68) 103/58 (73) 113/53 (73) Pulse Ox 96 95 92 O2 Delivery Nasal Cannula Nasal Cannula Nasal Cannula O2 Flow Rate 5.00 4.00 5.00 10/06/21 10/06/21 10/06/21 08:20 10:49 11:39 Temp 36.5 Pulse 70 Resp 22 B/P (MAP) 112/56 (74) Pulse Ox 93 91 O2 Delivery High Flow N/C Nasal Cannula Nasal Cannula O2 Flow Rate 4.00 5.00 5.00 10/06/21 00:00 Intake Total 1080 ml Output Total 1900 ml Balance -820 ml Weight (Pounds): 226 Weight (Ounces): 9.6 Weight (Calculated Kilograms): 102.349534 Constitutional: well-developed, well-nourished, other (slow to respond but appears oriented) Respiratory: chest expansion is symmetric, chest is bilaterally symmetric, other Cardiovascular: regular rate-rhythm, S1 and S2, systolic murmur Gastrointestional: soft, round Extremities: other (R BKA), no lower extremity edema bilateral Neurologic/Psychiatric: other (sluggish responses but appears oriented and seems to be able to move all limbs) Skin: warm/dry; No rash on exposed areas, No ulcerations on exposed areas Results/Procedures: Labs Laboratory Tests 10/05/21 15:56: Glucometer 246H 10/05/21 20:02: Glucometer 181H 10/05/21 20:19: Glucometer 173H 10/06/21 05:40: White Blood Count 5.8, Red Blood Count 2.88L, Hemoglobin 8.2L, Hematocrit 28L, Mean Corpuscular Volume 97, Mean Corpuscular Hemoglobin 29, Mean Corpuscular Hemoglobin Concent 30L, Red Cell Distribution Width 16.2H, Platelet Count 164, Mean Platelet Volume 10.2, Immature Granulocyte % (Auto) 0, Neutrophils (%) (Auto) 60, Lymphocytes (%) (Auto) 24, Monocytes (%) (Auto) 10, Eosinophils (%) (Auto) 5, Basophils (%) (Auto) 1, Neutrophils # (Auto) 3.5, Lymphocytes # (Auto) 1.4, Monocytes # (Auto) 0.6, Eosinophils # (Auto) 0.3, Basophils # (Auto) 0.0, Immature Granulocyte # (Auto) 0.0, Sodium Level 141, Potassium Level 5.6H, Chloride Level 100, Carbon Dioxide Level 33H, Anion Gap 8, Blood Urea Nitrogen 58H, Creatinine 2.28H, Estimat Glomerular Filtration Rate 27, BUN/Creatinine Ratio 25, Glucose Level 131H, Calcium Level 8.6, Corrected Calcium 9.4, Total Bilirubin 0.8, Aspartate Amino Transf (AST/SGOT) 24, Alanine Aminotransferase (ALT/SGPT) 14, Alkaline Phosphatase 82, Total Protein 6.0L, Albumin 3.0L 10/06/21 05:43: Glucometer 124H 10/06/21 11:10: Glucometer 161H Laboratory Tests 10/05/21 06:29 10/06/21 05:40 A/P: Assessment: Ac-on-ch renal failure - acute component likely due to intravascular volume depletion (diuresis) - chronic component likely due to diabetic nephropathy Hyperkalemia due to ac renal failure Ac-on-ch CHF, systolic, improved - Echo 10/02/21: Left ventricle: Mild LVH, impaired LV function with mild to mod global hypokinesis and LVEF 35-40%, mild MAC, mod MR, AoV sclerosis w/o stenosis, mild AI, mild to mod TR, PASP 50-55 mmHg, pleural effusions seen - s/p thoracentesis on 10/03/21: transudate, likely related to CHF Near-syncope of undetermined etiology - no further episodes Melena - EGD 10/03/21 (Dr Henderson): av malformation, reflux esophagitis, duodenal polyp; treated with polypectomy duodenum and biopsies antrum and ge CAD - reported h/o CABG x 4 vessel - followed by his glove printer Dr Parada - Echo of 04/11/20: LVEF 40-45%, grade 3 wolf dysfunction, biatrial enlargement, PASP 55-60 mmHg PPM - pt states it is followed by Dr. Parada his primary glove printer - interrogation of 10/02/21 shows dual chamber pacemaker in the DOOR mode, functioning normally (as directed by the DOOR mode). 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 Henderson d/t ischemic colon DM 2 HTN HLD Macular degeneration Tobaccoism - smokes cigars Prob COPD BPH with urinary retention and hematuria - managed per Dr. Sal Plan: * Complex management due to multiple CV comorbidities * Hold diuretic therapy because of suspected intravascular volume depletion * Hold K and lisinopril because of hyperkalemia * Kayexelate to treat hyperkalemia * Monitor lab closely * Xarelto dose adjusted to renal failure JOSIAH MORENO MD FACP FAC CCDS Oct 06, 2021 13:05
[2021-10-06] MEDS ORDERED: SOD POLYSTERENE 15 GM/60 ML (KAYEXALATE) UNIT DOSE PO NR (13:15)
[2021-10-06 15:18] VITALS: BP 110/51
[2021-10-06] MEDS: ATENOLOL 25 MG (TENORMIN) TAB PO SCH (16:58)
[2021-10-06] MEDS: RIVAROXABAN 15 MG TABLET (XARELTO) PO SCH (16:58)
[2021-10-06] MEDS: FINASTERIDE (PROSCAR) 5 MG TAB PO SCH (16:58)
[2021-10-06] MEDS: FLUoxetine HCL 20 MG (PROzac) CAP PO SCH (16:58)
--- NOTE | 2021-10-06 18:38 | Progress Note ---
Subjective Subjective/Events-last exam Patient states that he is feeling better. Tolerating PO diet. Review of Systems Pulmonary: Dyspnea; No Cough Cardiovascular: Edema; No: Chest Pain, Palpitations Gastrointestinal: Melena (improved); No: Nausea, Vomiting Neurological: Weakness, Incoordination Objective Exam Last Set of Vital Signs Vital Signs Date Time Temp Pulse Resp B/P (MAP) Pulse Ox O2 Delivery O2 Flow Rate FiO2 10/06/21 15:18 36.4 72 16 110/51 (70) 94 Nasal Cannula 5.00 10/03/21 09:00 30 Capillary Refill : Less Than 3 Seconds I&O Intake and Output 10/06/21 00:00 Intake Total 1280 ml Output Total 2300 ml Balance -1020 ml Intake Oral 1280 ml Output Urine Total 2300 ml # Bowel Movements 2 General: Alert, Oriented X3, No Acute Distress Lungs: Clear to Auscultation, Normal Air Movement Heart: Regular Rate, No Murmurs Abdomen: Normal Bowel Sounds, Soft, No Tenderness, No Masses Extremities: No Tenderness/Swelling Neuro: Normal Speech, Sensation Intact Results/Procedures Lab Laboratory Tests 10/05/21 20:02: Glucometer 181H 10/05/21 20:19: Glucometer 173H 10/06/21 05:40: White Blood Count 5.8, Red Blood Count 2.88L, Hemoglobin 8.2L, Hematocrit 28L, Mean Corpuscular Volume 97, Mean Corpuscular Hemoglobin 29, Mean Corpuscular Hemoglobin Concent 30L, Red Cell Distribution Width 16.2H, Platelet Count 164, Mean Platelet Volume 10.2, Immature Granulocyte % (Auto) 0, Neutrophils (%) (Auto) 60, Lymphocytes (%) (Auto) 24, Monocytes (%) (Auto) 10, Eosinophils (%) (Auto) 5, Basophils (%) (Auto) 1, Neutrophils # (Auto) 3.5, Lymphocytes # (Auto) 1.4, Monocytes # (Auto) 0.6, Eosinophils # (Auto) 0.3, Basophils # (Auto) 0.0, Immature Granulocyte # (Auto) 0.0, Sodium Level 141, Potassium Level 5.6H, Chloride Level 100, Carbon Dioxide Level 33H, Anion Gap 8, Blood Urea Nitrogen 58H, Creatinine 2.28H, Estimat Glomerular Filtration Rate 27, BUN/Creatinine Ratio 25, Glucose Level 131H, Calcium Level 8.6, Corrected Calcium 9.4, Total Bilirubin 0.8, Aspartate Amino Transf (AST/SGOT) 24, Alanine Aminotransferase (ALT/SGPT) 14, Alkaline Phosphatase 82, Total Protein 6.0L, Albumin 3.0L 10/06/21 05:43: Glucometer 124H 10/06/21 11:10: Glucometer 161H 10/06/21 15:21: Glucometer 118H 10/06/21 15:33: Potassium Level 5.1H Radiology 1. Small bilateral pleural effusions, increased since the prior exam. 2. Airspace opacities in the upper lobes, may be due to edema or infection Assessment/Plan Assessment/Plan (1) Acute on chronic respiratory failure with hypoxia and hypercapnia Status: Acute Assessment & Plan: 10/06: Continue to titrate as tolerated, has home oxygen requirement, MAT protocol (2) Acute on chronic systolic (congestive) heart failure Status: Acute Assessment & Plan: 10/06: Cardiology consulted, appreciate recommendations, Diuretic held, near dry weight (3) Acute on chronic renal failure Status: Acute Assessment & Plan: 10/06: Cr has trended up, will continue to monitor, maybe over diuresed (4) Normocytic anemia Status: Acute Assessment & Plan: 10/06: Stable, will continue to monitor (5) Atrial fibrillation Status: Acute Assessment & Plan: 10/06: Rate controlled, OAC renally dosed (6) Melena Status: Acute Assessment & Plan: 10/06: Scoped by Beatriz during admission (7) Hyperkalemia Status: Acute Assessment & Plan: - Stop replacement, repeat in AM JOSE J GROVE MD Oct 06, 2021 18:38
[2021-10-06 19:15] VITALS: BP 102/51
[2021-10-07] VITALS (7 sets, daily range): BP systolic 91–114; BP diastolic 49–65
[2021-10-07] MEDS: RT-ALBUTEROL SULF 2.5 MG/3 ML PRE-MIX VIAL INH SCH ×4 (02:21→20:32)
[2021-10-07] MEDS: inSUlin ASPART (NovoLOG) 1 UNIT/0.01 ML (CHARGE PER UNIT) SC SCH ×4 (05:37→20:18)
[2021-10-07] MEDS: SUCRALFATE 1 GM (CARAFATE) TAB PO SCH ×4 (06:07→20:27)
[2021-10-07] MEDS: HYDROcodone/APAP 5 MG/325 MG (LORTAB) TAB PO PRN ×2 (06:07→20:39)
[2021-10-07] MEDS: MULTIVIT W/MINERALS TAB (THERAGRAN M) PO SCH (06:07)
[2021-10-07] MEDS: CATHETER FLUSH 10 ML SYR IV SCH ×3 (06:08→21:36)
[2021-10-07 06:28] LABS: BASOPHILS % (AUTO) 1 % (0-10); EOSINOPHILS # (AUTO) 0.3 10^3/uL (0.0-0.3); EOSINOPHILS % (AUTO) 6 % (0-10); HEMATOCRIT 27 % (40-54); LYMPHOCYTES # (AUTO) 1.5 10^3/uL (1.0-4.0); LYMPHOCYTES % (AUTO) 26 % (12-44); MEAN CORPUSCULAR HEMOGLOBIN 28 pg (25-34); MEAN CORPUSCULAR HGB CONC 29 g/dL (32-36); MEAN CORPUSCULAR VOLUME 97 fL (80-99); MEAN PLATELET VOLUME 10.5 fL (9.0-12.2); MONOCYTES # (AUTO) 0.7 10^3/uL (0.0-1.0); MONOCYTES % (AUTO) 12 % (0-12); NEUTROPHILS # (AUTO) 3.2 10^3/uL (1.8-7.8); NEUTROPHILS % (AUTO) 56 % (42-75); PLATELET COUNT 184 10^3/uL (130-400); WHITE BLOOD COUNT 5.6 10^3/uL (4.3-11.0)
[2021-10-07 06:34] LABS: POTASSIUM 5.3 MMOL/L (3.6-5.0)
[2021-10-07 06:35] LABS: CALCIUM 8.3 MG/DL (8.5-10.1)
[2021-10-07 06:39] LABS: CREATININE SERUM 2.04 MG/DL (0.60-1.30)
--- NOTE | 2021-10-07 07:33 | Progress Note - Surgery ---
YOSI MCGARRYN 10/07/21 0733: Subjective Time Seen by a Provider: 06:30 Subjective/Events-last exam Patient seen at bedside this morning. He complains of some bleeding from his nose. He stated he had eyes that were itchy and scratched them when he pulled a scab off his nose and started bleeding. The bleeding is now under control and he remains with a bandage on his nose. He is having some diarrhea but no nausea or vomiting. He is having some trouble breathing due his nose being clogged and is on 4L oxygen. Review of Systems General: No Chills, No Fatigue HEENT: No Head Aches, No Visual Changes Pulmonary: No Cough, No Pleuritic Chest Pain Cardiovascular: No: Chest Pain, Lt Headedness Gastrointestinal: Diarrhea; No: Nausea, Vomiting, Abdominal Pain Genitourinary: No Dysuria, No Frequency Musculoskeletal: No: arm pain, leg pain Neurological: No: Weakness, Numbness Objective Exam Vital Signs Date Time Temp Pulse Resp B/P (MAP) Pulse Ox O2 Delivery O2 Flow Rate FiO2 10/07/21 04:00 36.0 70 18 107/56 (73) 94 Nasal Cannula 5.00 10/07/21 02:21 99 Nasal Cannula 5.00 10/07/21 00:00 36.0 69 18 95/52 (66) 96 Nasal Cannula 5.00 10/06/21 21:08 96 Nasal Cannula 5.00 10/06/21 20:50 High Flow N/C 4.00 10/06/21 19:15 36.6 74 20 102/51 (68) 95 Nasal Cannula 5.00 10/06/21 15:18 36.4 72 16 110/51 (70) 94 Nasal Cannula 5.00 10/06/21 15:06 95 Nasal Cannula 5.00 10/06/21 11:39 36.5 70 22 112/56 (74) 91 Nasal Cannula 5.00 10/06/21 10:49 93 Nasal Cannula 5.00 10/06/21 08:20 High Flow N/C 4.00 10/06/21 07:36 37.0 70 20 113/53 (73) 92 Nasal Cannula 5.00 I & O 10/07/21 07:00 Intake Total 1740 ml Output Total 2250 ml Balance -510 ml Capillary Refill : Less Than 3 Seconds General Appearance: No Apparent Distress, WD/WN, Chronically ill HEENT: PERRL/EOMI, Normal ENT Inspection Neck: Full Range of Motion, Non Tender, Supple Respiratory: Chest Non Tender, No Accessory Muscle Use, No Respiratory Distress Cardiovascular: Regular Rate, Rhythm, No JVD, Normal Peripheral Pulses Peripheral Pulses: 1+ Left Dors-Pedis (L), 1+ Radial Pulses (R), 1+ Radial Pulses (L) Gastrointestinal: non tender, soft Extremity: Normal Capillary Refill, Non Tender, No Calf Tenderness, Other (R BKA) Neurologic/Psychiatric: Alert, No Motor/Sensory Deficits, Normal Mood/Affect Skin: Normal Color, Warm/Dry Lymphatic: No Adenopathy Results Lab Laboratory Tests 10/06/21 11:10: Glucometer 161H 10/06/21 15:21: Glucometer 118H 10/06/21 15:33: Potassium Level 5.1H 10/06/21 20:31: Glucometer 209H 10/07/21 05:23: White Blood Count 5.6, Red Blood Count 2.82L, Hemoglobin 8.0L, Hematocrit 27L, Mean Corpuscular Volume 97, Mean Corpuscular Hemoglobin 28, Mean Corpuscular Hemoglobin Concent 29L, Red Cell Distribution Width 16.1H, Platelet Count 184, Mean Platelet Volume 10.5, Immature Granulocyte % (Auto) 0, Neutrophils (%) (Auto) 56, Lymphocytes (%) (Auto) 26, Monocytes (%) (Auto) 12, Eosinophils (%) (Auto) 6, Basophils (%) (Auto) 1, Neutrophils # (Auto) 3.2, Lymphocytes # (Auto) 1.5, Monocytes # (Auto) 0.7, Eosinophils # (Auto) 0.3, Basophils # (Auto) 0.0, Immature Granulocyte # (Auto) 0.0, Sodium Level 139, Potassium Level 5.3H, Chloride Level 97L, Carbon Dioxide Level 32, Anion Gap 10, Blood Urea Nitrogen 56H, Creatinine 2.04H, Estimat Glomerular Filtration Rate 31, BUN/Creatinine Ratio 27, Glucose Level 152H, Calcium Level 8.3L 10/07/21 05:25: Glucometer 150H Meds Item Value Date Time Albuterol Sulfate 2.5 mg 10/05/21 2100 (Proventil RTQ6HR/INH 10/07/21 0221 Pre-Mix Nebs (Rt)) Pantoprazole 40 mg 10/05/21 0900 Sodium DAILY/PO 10/06/21 0753 (Protonix Tablet) Acetaminophen/ 1 ea 10/03/21 2215 Hydrocodone Bitart Q6H PRN/PO 10/07/21 0607 (Lortab 5 Mg Tablet) Fluoxetine HCl 20 mg 10/03/21 1800 (PROzac CAPSULE) 1800/PO 10/06/21 165 Finasteride 5 mg 10/03/21 1800 (Proscar Tablet) 1800/PO 10/06/21 1658 Atenolol 25 mg 10/03/21 1800 (Tenormin Tablet) 1800/PO 10/06/21 165 Sucralfate 1 gm 10/03/21 1600 (Carafate ACHS/PO 10/07/21 0607 Tablet) Lorazepam 0.5 mg 10/03/21 0900 (Ativan Tablet) DAILY/PO 10/06/21 0752 Calcium Carbonate 600 mg 10/03/21 0900 (Calcarb 600 DAILY/PO 10/06/21 0756 Tablet) Aspirin 81 mg 10/03/21 0900 (Ecotrin Tablet) DAILY/PO 10/06/21 0753 Ascorbic Acid 500 mg 10/03/21 0800 (Vitamin C DAILY@0800/PO 10/06/21 0753 Tablet) Insulin Human 10 unit 10/03/21 0800 Isoph/Insulin BIDPC/SQ Regular (HumuLIN 70/30 MIX (CHARGE PER UNIT)) Multivitamins/ 1 ea 10/03/21 0700 Minerals DAILY@0700/PO 10/07/21 0607 Therapeutic (Vitamins, Multi w/Minerals Tablet) Tamsulosin HCl 0.4 mg 10/02/21 2100 (Flomax Capsule) BID/PO 10/06/21 204 Gabapentin 300 mg 10/02/21 2100 (Neurontin BID/PO 10/06/21 204 Capsule/Tablet) Rivaroxaban 15 mg 10/02/21 1700 (Xarelto Tablet) DAILY@1700/PO 10/06/21 1658 Insulin Aspart SLIDING SCALE A BLOO... 10/02/21 1600 (NovoLOG (CHARGE ACHS/SC PER UNIT)) Albuterol Sulfate 2.5 mg 10/02/21 1545 (Proventil Q2HR PRN/INH Pre-Mix Nebs (Rt)) Acetaminophen 650 mg 10/02/21 1415 (Tylenol Tablet) Q6H PRN/PO Sodium Chloride 10-40 ML 10/02/21 1400 (Catheter Flush Q8HR/IV 10/07/21 0608 Syringe) Sodium Chloride 10-40 ML 10/02/21 1400 (Catheter Flush NEEDED PRN/IV Syringe) Assessment/Plan Assessment/Plan Assessment/Plan Acute CHF exacerbation with bilateral pleural effusions Melena CKD Anemia Current use anticoagulant Hypotension Patient off BIPAP. Continue diuresis. Monitor creatinine with CMP due to CKD. Anticoagulation continued with Xarelto. Melena resolved. Sign off. Continue diet. HENDERSONNEHAL Jered DO 10/07/211999: Subjective Subjective/Events-last exam Patient breathing about the same may be slightly worse due to having his nose clogged. Patient states not having abdominal pain. Not having nausea or vomiting at this time. He denies any fever sweats chills shortness of breath or chest pain. Patient answers are short and without any elaboration. Objective Exam General Appearance: No Apparent Distress, WD/WN, Chronically ill HEENT: PERRL/EOMI, Normal ENT Inspection Neck: Full Range of Motion, Supple Respiratory: Chest Non Tender, No Accessory Muscle Use, No Respiratory Distress Cardiovascular: Regular Rate, Rhythm, No JVD, Normal Peripheral Pulses Gastrointestinal: non tender, soft, no organomegaly Extremity: Normal Capillary Refill, Non Tender, No Calf Tenderness Neurologic/Psychiatric: Alert, No Motor/Sensory Deficits, Normal Mood/Affect Skin: Normal Color, Warm/Dry Lymphatic: No Adenopathy Assessment/Plan Assessment/Plan Assessment/Plan Acute CHF exacerbation with bilateral pleural effusions Melena CKD Anemia Current use anticoagulant Hypotension Patient off BIPAP. Continue diuresis. Monitor creatinine with CMP due to CKD. Anticoagulation continued with Xarelto. Melena resolved. Hemoglobin stable continue to monitor. Will sign off at this time please call if needed. Supervisory-Addendum Brief Verification & Attestation Participated in pt care: history, MDM, physical Personally performed: exam, history, MDM, supervision of care Care discussed with: Medical Student Procedures: n/a Results interpretation: Verified all documentation Verification and Attestation of Medical Student E/M Service A medical student performed and documented this service in my presence. I reviewed and verified all information documented by the medical student and made modifications to such information, when appropriate. I personally performed the physical exam and medical decision making. Nehal Henderson, Oct 07, 2021,19:59 TULIO MCGARRY Oct 07, 2021 07:33 NEHAL HENDERSON DO Oct 07, 2021 20:00
[2021-10-07] MEDS: PANTOPRAZOLE 40 MG (PROTONIX) TAB PO SCH (08:35)
[2021-10-07] MEDS: TAMSULOSIN 0.4 MG (FLOMAX) CAP PO SCH ×2 (08:35→20:27)
[2021-10-07] MEDS: ASCORBIC ACID (VIT C) 500 MG TABLET PO SCH (08:35)
[2021-10-07] MEDS: GABAPENTIN 300 MG (NEURONTIN) CAP PO SCH ×2 (08:35→20:27)
[2021-10-07] MEDS: CALCIUM CARBONATE 600 MG (CALCARB) TAB PO SCH (08:35)
[2021-10-07] MEDS: LORazepam 0.5 MG (ATIVAN) TABLET PO SCH (08:35)
[2021-10-07] MEDS: ASPIRIN E.C. 81 MG (ECOTRIN) TAB PO SCH (08:35)
[2021-10-07] MEDS: inSUlin NPH/REG (NovoLIN 70/30) CHARGE PER UNIT SQ SCH ×2 (08:36→18:43)
[2021-10-07] MEDS ORDERED: SOD POLYSTERENE 15 GM/60 ML (KAYEXALATE) UNIT DOSE PO ONE (09:30)
--- NOTE | 2021-10-07 09:58 | Progress Note - Cardiology ---
Cardiology SOAP Progress Note Subjective: Lying in bed C/O leg cramps this morning No c/o CP Feels SOB is better Objective: I&O/Vital Signs 10/07/21 10/08/21 10/08/21 10/08/21 23:43 02:34 04:18 08:00 Temp 36.7 36.8 37.0 Pulse 70 70 70 Resp 22 22 18 B/P (MAP) 111/49 (69) 103/50 (67) 104/47 (66) Pulse Ox 98 97 95 97 O2 Delivery Nasal Cannula Nasal Cannula Nasal Cannula Nasal Cannula O2 Flow Rate 5.00 5.00 5.00 5.00 10/08/21 08:45 Pulse Ox 98 O2 Delivery Nasal Cannula O2 Flow Rate 5.00 10/08/21 00:00 Intake Total 445 ml Output Total 875 ml Balance -430 ml Weight (Pounds): 226 Weight (Ounces): 9.6 Weight (Calculated Kilograms): 102.229822 Constitutional: well-developed, well-nourished, other (slow to respond but appears oriented) Respiratory: chest expansion is symmetric, chest is bilaterally symmetric, other Cardiovascular: regular rate-rhythm, S1 and S2, systolic murmur Gastrointestional: soft, round Extremities: other (R BKA), no lower extremity edema bilateral Neurologic/Psychiatric: other (sluggish responses but appears oriented and seems to be able to move all limbs) Skin: warm/dry; No rash on exposed areas, No ulcerations on exposed areas Results/Procedures: Labs Laboratory Tests 10/07/21 15:49: Glucometer 153H 10/07/21 16:03: Glucometer 133H 10/07/21 20:12: Glucometer 164H 10/08/21 06:13: Glucometer 155H 10/08/21 06:35: White Blood Count 5.5, Red Blood Count 2.75L, Hemoglobin 8.0L, Hematocrit 26L, Mean Corpuscular Volume 96, Mean Corpuscular Hemoglobin 29, Mean Corpuscular Hemoglobin Concent 30L, Red Cell Distribution Width 15.8H, Platelet Count 170, Mean Platelet Volume 10.3, Immature Granulocyte % (Auto) 0, Neutrophils (%) (Auto) 59, Lymphocytes (%) (Auto) 24, Monocytes (%) (Auto) 12, Eosinophils (%) (Auto) 5, Basophils (%) (Auto) 1, Neutrophils # (Auto) 3.2, Lymphocytes # (Auto) 1.3, Monocytes # (Auto) 0.6, Eosinophils # (Auto) 0.3, Basophils # (Auto) 0.0, Immature Granulocyte # (Auto) 0.0, Sodium Level 138, Potassium Level 4.6, Chloride Level 99, Carbon Dioxide Level 31, Anion Gap 8, Blood Urea Nitrogen 54H , Creatinine 1.94H, Estimat Glomerular Filtration Rate 33, BUN/Creatinine Ratio 28, Glucose Level 150H, Calcium Level 8.5 Microbiology 10/07/21 C. difficile GDH Antigen & Toxins - Final, Complete A/P: Assessment: Ac-on-ch renal failure - acute component likely due to intravascular volume depletion (diuresis) - chronic component likely due to diabetic nephropathy Hyperkalemia due to ac renal failure Ac-on-ch CHF, systolic, improved - Echo 10/02/21: Left ventricle: Mild LVH, impaired LV function with mild to mod global hypokinesis and LVEF 35-40%, mild MAC, mod MR, AoV sclerosis w/o stenosis, mild AI, mild to mod TR, PASP 50-55 mmHg, pleural effusions seen - s/p thoracentesis on 10/03/21: transudate, likely related to CHF Near-syncope of undetermined etiology - no further episodes Melena - EGD 10/03/21 (Dr Henderson): av malformation, reflux esophagitis, duodenal polyp; treated with polypectomy duodenum and biopsies antrum and ge CAD - reported h/o CABG x 4 vessel - followed by his performance manager Dr Parada - Echo of 04/11/20: LVEF 40-45%, grade 3 wolf dysfunction, biatrial enlargement, PASP 55-60 mmHg PPM - pt states it is followed by Dr. Parada his primary performance manager - interrogation of 10/02/21 shows dual chamber pacemaker in the DOOR mode, functioning normally (as directed by the DOOR mode). 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 Henderson d/t ischemic colon DM 2 HTN HLD Macular degeneration Tobaccoism - smokes cigars Prob COPD BPH with urinary retention and hematuria - managed per Dr. Sal Plan: * Complex management due to multiple CV comorbidities * Hold diuretic therapy because of suspected intravascular volume depletion * Hold K and lisinopril because of hyperkalemia * Kayexelate to treat hyperkalemia * Monitor lab closely * Xarelto dose adjusted to renal failure * Gentle hydration [facility] Oct 07, 2021 09:58
[2021-10-07] MEDS: NS IV 1000 ML 1,000 ML IV SCH ×2 (10:39→21:51)
--- NOTE | 2021-10-07 16:41 | Progress Note - Cardiology ---
Cardiology SOAP Progress Note Subjective: Does not respond to questions in any detail No shortness of breath or palp or syncope reported No n/v/d Gen malaise present Objective: I&O/Vital Signs 10/07/21 10/07/21 10/07/21 10/07/21 08:36 09:39 09:52 11:07 Temp 35.6 36.9 Pulse 74 69 Resp 20 22 B/P (MAP) 114/65 (81) 91/51 (64) Pulse Ox 95 96 92 O2 Delivery Nasal Cannula Nasal Cannula High Flow N/C Nasal Cannula O2 Flow Rate 5.00 5.00 4.00 5.00 10/07/21 10/07/21 15:15 16:00 Temp 36.7 Pulse 70 Resp 18 B/P (MAP) 98/59 (72) Pulse Ox 96 98 O2 Delivery Nasal Cannula Nasal Cannula O2 Flow Rate 5.00 5.00 10/06/21 23:59 Intake Total 1320 ml Output Total 1900 ml Balance -580 ml Weight (Pounds): 226 Weight (Ounces): 9.6 Weight (Calculated Kilograms): 102.517363 Constitutional: well-developed, well-nourished, other (slow to respond but appears oriented) Respiratory: chest expansion is symmetric, chest is bilaterally symmetric, other Cardiovascular: regular rate-rhythm, S1 and S2, systolic murmur Gastrointestional: soft, round Extremities: other (R BKA), no lower extremity edema bilateral Neurologic/Psychiatric: other (sluggish responses but appears oriented and seems to be able to move all limbs) Skin: warm/dry; No rash on exposed areas, No ulcerations on exposed areas Results/Procedures: Labs Laboratory Tests 10/06/21 20:31: Glucometer 209H 10/07/21 05:23: White Blood Count 5.6, Red Blood Count 2.82L, Hemoglobin 8.0L, Hematocrit 27L, Mean Corpuscular Volume 97, Mean Corpuscular Hemoglobin 28, Mean Corpuscular Hemoglobin Concent 29L, Red Cell Distribution Width 16.1H, Platelet Count 184, Mean Platelet Volume 10.5, Immature Granulocyte % (Auto) 0, Neutrophils (%) (Auto) 56, Lymphocytes (%) (Auto) 26, Monocytes (%) (Auto) 12, Eosinophils (%) (Auto) 6, Basophils (%) (Auto) 1, Neutrophils # (Auto) 3.2, Lymphocytes # (Auto) 1.5, Monocytes # (Auto) 0.7, Eosinophils # (Auto) 0.3, Basophils # (Auto) 0.0, Immature Granulocyte # (Auto) 0.0, Sodium Level 139, Potassium Level 5.3H, Chloride Level 97L, Carbon Dioxide Level 32, Anion Gap 10, Blood Urea Nitrogen 56H, Creatinine 2.04H, Estimat Glomerular Filtration Rate 31, BUN/Creatinine Ratio 27, Glucose Level 152H, Calcium Level 8.3L 10/07/21 05:25: Glucometer 150H 10/07/21 10:14: Glucometer 201H 10/07/21 15:49: Glucometer 153H 10/07/21 16:03: Glucometer 133H Microbiology 10/07/21 C. difficile GDH Antigen & Toxins - Final, Complete Laboratory Tests 10/06/21 05:40 10/06/21 15:33 10/07/21 05:23 A/P: Assessment: Ac-on-ch renal failure - acute component likely due to intravascular volume depletion (diuresis) - chronic component likely due to diabetic nephropathy Hyperkalemia due to ac renal failure Ac-on-ch CHF, systolic, improved - Echo 10/02/21: Left ventricle: Mild LVH, impaired LV function with mild to mod global hypokinesis and LVEF 35-40%, mild MAC, mod MR, AoV sclerosis w/o stenosis, mild AI, mild to mod TR, PASP 50-55 mmHg, pleural effusions seen - s/p thoracentesis on 10/03/21: transudate, likely related to CHF Near-syncope of undetermined etiology - no further episodes Melena - EGD 10/03/21 (Dr Henderson): av malformation, reflux esophagitis, duodenal polyp; treated with polypectomy duodenum and biopsies antrum and ge CAD - reported h/o CABG x 4 vessel - followed by his photo booth operator Dr Parada - Echo of 04/11/20: LVEF 40-45%, grade 3 wolf dysfunction, biatrial enlargement, PASP 55-60 mmHg PPM - pt states it is followed by Dr. Parada his primary photo booth operator - interrogation of 10/02/21 shows dual chamber pacemaker in the DOOR mode, functioning normally (as directed by the DOOR mode). 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 Henderson d/t ischemic colon DM 2 HTN HLD Macular degeneration Tobaccoism - smokes cigars Prob COPD BPH with urinary retention and hematuria - managed per Dr. Sal Plan: * Complex management due to multiple CV comorbidities * Hold diuretic therapy because of suspected intravascular volume depletion * Hold K and lisinopril because of hyperkalemia * Treat hyperkalemia as needed * Monitor lab closely * Xarelto dose adjusted to renal failure * Gentle hydration JOSIAH MORENO MD FACP [facility] Oct 07, 2021 16:41
[2021-10-07] MEDS: FINASTERIDE (PROSCAR) 5 MG TAB PO SCH (18:40)
[2021-10-07] MEDS: RIVAROXABAN 15 MG TABLET (XARELTO) PO SCH (18:40)
[2021-10-07] MEDS: FLUoxetine HCL 20 MG (PROzac) CAP PO SCH (18:40)
[2021-10-07] MEDS: ATENOLOL 25 MG (TENORMIN) TAB PO SCH (18:47)
--- NOTE | 2021-10-07 20:23 | Progress Note ---
Subjective Subjective/Events-last exam Patient feeling well. Asking about d/c. Tolerating PO diet. Nosebleed O/N Review of Systems General: Malaise Pulmonary: No Dyspnea, No Cough Cardiovascular: No: Chest Pain, Palpitations, Edema Gastrointestinal: No: Nausea, Vomiting, Abdominal Pain, Diarrhea Genitourinary: No Dysuria Neurological: Weakness, Incoordination Objective Exam Last Set of Vital Signs Vital Signs Date Time Temp Pulse Resp B/P (MAP) Pulse Ox O2 Delivery O2 Flow Rate FiO2 10/07/21 19:31 36.9 68 20 112/56 (74) 99 Nasal Cannula 5.00 10/03/21 09:00 30 Capillary Refill : Less Than 3 Seconds I&O Intake and Output 10/07/21 00:00 Intake Total 1560 ml Output Total 2300 ml Balance -740 ml Intake Oral 1560 ml Output Urine Total 2300 ml # Bowel Movements 1 General: Alert, Oriented X3, No Acute Distress HEENT: Other (dried blood around nose) Lungs: Clear to Auscultation, Normal Air Movement Heart: Regular Rate, No Murmurs Abdomen: Normal Bowel Sounds, Soft, No Tenderness, No Masses Extremities: No Edema, No Tenderness/Swelling Neuro: Normal Speech, Sensation Intact, Cranial Nerves 3-12 NL Results/Procedures Lab Laboratory Tests 10/06/21 20:31: Glucometer 209H 10/07/21 05:23: White Blood Count 5.6, Red Blood Count 2.82L, Hemoglobin 8.0L, Hematocrit 27L, Mean Corpuscular Volume 97, Mean Corpuscular Hemoglobin 28, Mean Corpuscular Hemoglobin Concent 29L, Red Cell Distribution Width 16.1H, Platelet Count 184, Mean Platelet Volume 10.5, Immature Granulocyte % (Auto) 0, Neutrophils (%) (Auto) 56, Lymphocytes (%) (Auto) 26, Monocytes (%) (Auto) 12, Eosinophils (%) (Auto) 6, Basophils (%) (Auto) 1, Neutrophils # (Auto) 3.2, Lymphocytes # (Auto) 1.5, Monocytes # (Auto) 0.7, Eosinophils # (Auto) 0.3, Basophils # (Auto) 0.0, Immature Granulocyte # (Auto) 0.0, Sodium Level 139, Potassium Level 5.3H, Chloride Level 97L, Carbon Dioxide Level 32, Anion Gap 10, Blood Urea Nitrogen 56H, Creatinine 2.04H, Estimat Glomerular Filtration Rate 31, BUN/Creatinine Ratio 27, Glucose Level 152H, Calcium Level 8.3L 10/07/21 05:25: Glucometer 150H 10/07/21 10:14: Glucometer 201H 10/07/21 15:49: Glucometer 153H 10/07/21 16:03: Glucometer 133H 10/07/21 20:12: Glucometer 164H Microbiology 10/07/21 C. difficile GD Antigen & Toxins - Final, Complete Radiology 1. Small bilateral pleural effusions, increased since the prior exam. 2. Airspace opacities in the upper lobes, may be due to edema or infection Assessment/Plan Assessment/Plan (1) Acute on chronic respiratory failure with hypoxia and hypercapnia Status: Acute Assessment & Plan: 10/06: Continue to titrate as tolerated, has home oxygen requirement, MAT protocol 10/07: On home oxygen, getting close to d/c (2) Acute on chronic systolic (congestive) heart failure Status: Acute Assessment & Plan: 10/06: Cardiology consulted, appreciate recommendations, Diuretic held, near dry weight (3) Acute on chronic renal failure Status: Acute Assessment & Plan: 10/06: Cr has trended up, will continue to monitor, maybe over diuresed 10/07: Gentle hydration, Cr baseline 1.7 (4) Normocytic anemia Status: Acute Assessment & Plan: 10/06: Stable, will continue to monitor (5) Atrial fibrillation Status: Acute Assessment & Plan: 10/06: Rate controlled, OAC renally dosed 10/07: Nosebleed O/N, will continue to monitor, Hgb stable (6) Melena Status: Acute Assessment & Plan: 10/06: Scoped by Beatriz during admission (7) Hyperkalemia Status: Acute Assessment & Plan: - Stop replacement, repeat in AM JOSE J GROVE MD Oct 07, 2021 20:23
[2021-10-08] MEDS: RT-ALBUTEROL SULF 2.5 MG/3 ML PRE-MIX VIAL INH SCH ×4 (02:33→20:35)
[2021-10-08 04:18] VITALS: BP 103/50
[2021-10-08] MEDS: SUCRALFATE 1 GM (CARAFATE) TAB PO SCH ×4 (05:58→21:34)
[2021-10-08] MEDS: MULTIVIT W/MINERALS TAB (THERAGRAN M) PO SCH (05:58)
[2021-10-08] MEDS: CATHETER FLUSH 10 ML SYR IV SCH ×3 (05:59→21:35)
[2021-10-08] MEDS: inSUlin ASPART (NovoLOG) 1 UNIT/0.01 ML (CHARGE PER UNIT) SC SCH ×4 (06:18→20:21)
[2021-10-08 07:34] LABS: BASOPHILS % (AUTO) 1 % (0-10); EOSINOPHILS # (AUTO) 0.3 10^3/uL (0.0-0.3); EOSINOPHILS % (AUTO) 5 % (0-10); HEMATOCRIT 26 % (40-54); LYMPHOCYTES # (AUTO) 1.3 10^3/uL (1.0-4.0); LYMPHOCYTES % (AUTO) 24 % (12-44); MEAN CORPUSCULAR HEMOGLOBIN 29 pg (25-34); MEAN CORPUSCULAR HGB CONC 30 g/dL (32-36); MEAN CORPUSCULAR VOLUME 96 fL (80-99); MEAN PLATELET VOLUME 10.3 fL (9.0-12.2); MONOCYTES # (AUTO) 0.6 10^3/uL (0.0-1.0); MONOCYTES % (AUTO) 12 % (0-12); NEUTROPHILS # (AUTO) 3.2 10^3/uL (1.8-7.8); NEUTROPHILS % (AUTO) 59 % (42-75); PLATELET COUNT 170 10^3/uL (130-400); WHITE BLOOD COUNT 5.5 10^3/uL (4.3-11.0)
[2021-10-08 07:48] LABS: CALCIUM 8.5 MG/DL (8.5-10.1); CREATININE SERUM 1.94 MG/DL (0.60-1.30); POTASSIUM 4.6 MMOL/L (3.6-5.0)
--- NOTE | 2021-10-08 07:53 | Progress Note - Surgery ---
MALGORZATATULIO 10/08/21 0753: Subjective Time Seen by a Provider: 06:45 Subjective/Events-last exam Patient seen at bedside this morning. He complains of some chest discomfort which has been going on since arrival to [facility] but has improved since this time. He has had no melena for the last 5 days. He still has trouble sleeping through the night. He did have some hemoptysis over the night that is next to the bed. Review of Systems General: No Chills, No Fatigue HEENT: No Head Aches, No Visual Changes Pulmonary: No Dyspnea, No Pleuritic Chest Pain; Other (Hemoptysis ) Cardiovascular: Chest Pain (cramping pain ); No: Lt Headedness Gastrointestinal: Diarrhea; No: Nausea, Vomiting, Abdominal Pain, Melena Genitourinary: No Dysuria, No Frequency Musculoskeletal: leg pain; No: arm pain Neurological: No: Weakness, Numbness Objective Exam Vital Signs Date Time Temp Pulse Resp B/P (MAP) Pulse Ox O2 Delivery O2 Flow Rate FiO2 10/08/21 04:18 36.8 70 22 103/50 (67) 95 Nasal Cannula 5.00 10/08/21 02:34 97 Nasal Cannula 5.00 10/07/21 23:43 36.7 70 22 111/49 (69) 98 Nasal Cannula 5.00 10/07/21 20:33 High Flow N/C 4.00 10/07/21 20:32 95 Nasal Cannula 5.00 10/07/21 19:31 36.9 68 20 112/56 (74) 99 Nasal Cannula 5.00 10/07/21 16:00 36.7 70 18 98/59 (72) 98 Nasal Cannula 5.00 10/07/21 15:15 96 Nasal Cannula 5.00 10/07/21 11:07 36.9 69 22 91/51 (64) 92 Nasal Cannula 5.00 10/07/21 09:52 High Flow N/C 4.00 10/07/21 09:39 96 Nasal Cannula 5.00 10/07/21 08:36 35.6 74 20 114/65 (81) 95 Nasal Cannula 5.00 I & O 10/08/21 07:00 Intake Total 645 ml Output Total 1450 ml Balance -805 ml Capillary Refill : Less Than 3 Seconds General Appearance: No Apparent Distress, WD/WN, Chronically ill HEENT: PERRL/EOMI, Normal ENT Inspection Neck: Full Range of Motion, Non Tender, Supple Respiratory: Chest Non Tender, No Accessory Muscle Use, No Respiratory Distress, Wheezing Cardiovascular: Regular Rate, Rhythm, No JVD, Normal Peripheral Pulses Peripheral Pulses: 1+ Left Dors-Pedis (L), 1+ Radial Pulses (R), 1+ Radial Pulses (L) Gastrointestinal: non tender, soft, no organomegaly; No guarding, No rebound, No tenderness Extremity: Non Tender, No Calf Tenderness Neurologic/Psychiatric: Alert, No Motor/Sensory Deficits, Normal Mood/Affect Skin: Normal Color, Warm/Dry Lymphatic: No Adenopathy Results Lab Laboratory Tests 10/07/21 10:14: Glucometer 201H 10/07/21 15:49: Glucometer 153H 10/07/21 16:03: Glucometer 133H 10/07/21 20:12: Glucometer 164H 10/08/21 06:13: Glucometer 155H 10/08/21 06:35: White Blood Count 5.5, Red Blood Count 2.75L, Hemoglobin 8.0L, Hematocrit 26L, Mean Corpuscular Volume 96, Mean Corpuscular Hemoglobin 29, Mean Corpuscular Hemoglobin Concent 30L, Red Cell Distribution Width 15.8H, Platelet Count 170, Mean Platelet Volume 10.3, Immature Granulocyte % (Auto) 0, Neutrophils (%) (Auto) 59, Lymphocytes (%) (Auto) 24, Monocytes (%) (Auto) 12, Eosinophils (%) (Auto) 5, Basophils (%) (Auto) 1, Neutrophils # (Auto) 3.2, Lymphocytes # (Auto) 1.3, Monocytes # (Auto) 0.6, Eosinophils # (Auto) 0.3, Basophils # (Auto) 0.0, Immature Granulocyte # (Auto) 0.0 Microbiology 10/07/21 C. difficile GDH Antigen & Toxins - Final, Complete Meds Item Value Date Time Sodium Chloride 1,000 ml @ 75 mls/hr 10/07/21 1000 Albuterol Sulfate 2.5 mg 10/05/21 2100 (Proventil RTQ6HR/INH 10/08/21 0233 Pre-Mix Nebs (Rt)) Pantoprazole 40 mg 10/05/21 0900 Sodium DAILY/PO 10/07/21 0835 (Protonix Tablet) Acetaminophen/ 1 ea 10/03/212214 Hydrocodone Bitart Q6H PRN/PO 10/07/212038 (Lortab 5 Mg Tablet) Fluoxetine HCl 20 mg 10/03/21 1800 (PROzac CAPSULE) 1800/PO 10/07/21 184 Finasteride 5 mg 10/03/21 1800 (Proscar Tablet) 1800/PO 10/07/21 184 Atenolol 25 mg 10/03/21 1800 (Tenormin Tablet) 1800/PO Lorazepam 0.5 mg 10/03/21 0900 (Ativan Tablet) DAILY/PO 10/07/21 0835 Sucralfate 1 gm 10/03/21 1600 (Carafate ACHS/PO 10/08/21 0558 Tablet) Calcium Carbonate 600 mg 10/03/21 0900 (Calcarb 600 DAILY/PO 10/07/21 0835 Tablet) Aspirin 81 mg 10/03/21 0900 (Ecotrin Tablet) DAILY/PO 10/07/21 0835 Ascorbic Acid 500 mg 10/03/21 0800 (Vitamin C DAILY@0800/PO 10/07/21 0835 Tablet) Insulin Human 10 unit 10/03/21 0800 Isoph/Insulin BIDPC/SQ 10/07/21 1843 Regular (HumuLIN 70/30 MIX (CHARGE PER UNIT)) Multivitamins/ 1 ea 10/03/21 0700 Minerals DAILY@0700/PO 10/08/21 0558 Therapeutic (Vitamins, Multi w/Minerals Tablet) Tamsulosin HCl 0.4 mg 10/02/212099 (Flomax Capsule) BID/PO 10/07/212026 Gabapentin 300 mg 10/02/212099 (Neurontin BID/PO 10/07/212026 Capsule/Tablet) Rivaroxaban 15 mg 10/02/21 1700 (Xarelto Tablet) DAILY@1700/PO 10/07/21 1840 Insulin Aspart SLIDING SCALE A BLOO... 10/02/21 1600 (NovoLOG (CHARGE ACHS/SC PER UNIT)) Albuterol Sulfate 2.5 mg 10/02/21 1545 (Proventil Q2HR PRN/INH Pre-Mix Nebs (Rt)) Acetaminophen 650 mg 10/02/21 1415 (Tylenol Tablet) Q6H PRN/PO Sodium Chloride 10-40 ML 10/02/21 1400 (Catheter Flush Q8HR/IV 10/08/21 0559 Syringe) Sodium Chloride 10-40 ML 10/02/21 1400 (Catheter Flush NEEDED PRN/IV Syringe) Assessment/Plan Assessment/Plan Assessment/Plan Acute CHF exacerbation with bilateral pleural effusions Melena CKD Anemia Current use anticoagulant Hypotension Patient off BIPAP. Continue diuresis. Monitor creatinine with CMP due to CKD. Anticoagulation continued with Xarelto. Melena resolved. Hemoglobin stable continue to monitor. Will sign off today. NORRIS HENDERSON DO 10/09/212009: Subjective Subjective/Events-last exam Patient has not had any more melena. He had some difficulty sleeping. He had a nosebleed which then he was having some hemoptysis. Patient denies any other complaints. His hemoglobin stable. Patient denies any worsening of his breathing. Denies fever sweats chills shortness of breath or chest pain at this time. Objective Exam General Appearance: No Apparent Distress, Chronically ill HEENT: PERRL/EOMI, Normal ENT Inspection, Other (Scab on top of nose) Neck: Non Tender, Supple Respiratory: Chest Non Tender, No Accessory Muscle Use, No Respiratory Distress Cardiovascular: Regular Rate, Rhythm, No JVD Gastrointestinal: non tender, soft Neurologic/Psychiatric: Alert, No Motor/Sensory Deficits, Normal Mood/Affect Skin: Normal Color, Warm/Dry Lymphatic: No Adenopathy Assessment/Plan Assessment/Plan Assessment/Plan Acute CHF exacerbation with bilateral pleural effusions Melena CKD Anemia Current use anticoagulant Hypotension Patient off BIPAP. Continue diuresis. Monitor creatinine with CMP due to CKD. Anticoagulation continued with Xarelto. Melena resolved. Hemoglobin stable continue to monitor. Supervisory-Addendum Brief Verification & Attestation Participated in pt care: history, MDM, physical Personally performed: exam, history, MDM, supervision of care Care discussed with: Medical Student Procedures: n/a Results interpretation: Verified all documentation Verification and Attestation of Medical Student E/M Service A medical student performed and documented this service in my presence. I reviewed and verified all information documented by the medical student and made modifications to such information, when appropriate. I personally performed the physical exam and medical decision making. Norris Henderson, Oct 08, 2021,20:10 TULIO MCGARRY Oct 08, 2021 07:53 NORRIS HENDERSON DO Oct 09, 2021 20:10
[2021-10-08 08:00] VITALS: BP 104/47
[2021-10-08] MEDS: PANTOPRAZOLE 40 MG (PROTONIX) TAB PO SCH (09:57)
[2021-10-08] MEDS: ASCORBIC ACID (VIT C) 500 MG TABLET PO SCH (09:57)
[2021-10-08] MEDS: ASPIRIN E.C. 81 MG (ECOTRIN) TAB PO SCH (09:57)
[2021-10-08] MEDS: TAMSULOSIN 0.4 MG (FLOMAX) CAP PO SCH ×2 (09:57→21:34)
[2021-10-08] MEDS: GABAPENTIN 300 MG (NEURONTIN) CAP PO SCH ×2 (09:58→21:34)
[2021-10-08] MEDS: inSUlin NPH/REG (NovoLIN 70/30) CHARGE PER UNIT SQ SCH ×2 (09:58→18:20)
[2021-10-08] MEDS: CALCIUM CARBONATE 600 MG (CALCARB) TAB PO SCH (10:05)
[2021-10-08] MEDS: LORazepam 0.5 MG (ATIVAN) TABLET PO SCH (10:05)
--- NOTE | 2021-10-08 10:39 | Progress Note - Cardiology ---
Cardiology SOAP Progress Note Subjective: Sitting up in bed Feels his SOB is better than yesterday No c/o CP or palpitations Objective: I&O/Vital Signs 10/07/21 10/08/21 10/08/21 10/08/21 23:43 02:34 04:18 08:00 Temp 36.7 36.8 37.0 Pulse 70 70 70 Resp 22 22 18 B/P (MAP) 111/49 (69) 103/50 (67) 104/47 (66) Pulse Ox 98 97 95 97 O2 Delivery Nasal Cannula Nasal Cannula Nasal Cannula Nasal Cannula O2 Flow Rate 5.00 5.00 5.00 5.00 10/08/21 08:45 Pulse Ox 98 O2 Delivery Nasal Cannula O2 Flow Rate 5.00 10/08/21 00:00 Intake Total 445 ml Output Total 875 ml Balance -430 ml Weight (Pounds): 226 Weight (Ounces): 9.6 Weight (Calculated Kilograms): 102.796874 Constitutional: well-developed, well-nourished, other (slow to respond but appears oriented) Respiratory: chest expansion is symmetric, chest is bilaterally symmetric, other Cardiovascular: regular rate-rhythm, S1 and S2, systolic murmur Gastrointestional: soft, round Extremities: other (R BKA), no lower extremity edema bilateral Neurologic/Psychiatric: other (sluggish responses but appears oriented and seem s to be able to move all limbs) Skin: warm/dry; No rash on exposed areas, No ulcerations on exposed areas Results/Procedures: Labs Laboratory Tests 10/07/21 15:49: Glucometer 153H 10/07/21 16:03: Glucometer 133H 10/07/21 20:12: Glucometer 164H 10/08/21 06:13: Glucometer 155H 10/08/21 06:35: White Blood Count 5.5, Red Blood Count 2.75L, Hemoglobin 8.0L, Hematocrit 26L, Mean Corpuscular Volume 96, Mean Corpuscular Hemoglobin 29, Mean Corpuscular Hemoglobin Concent 30L, Red Cell Distribution Width 15.8H, Platelet Count 170, Mean Platelet Volume 10.3, Immature Granulocyte % (Auto) 0, Neutrophils (%) (Auto) 59, Lymphocytes (%) (Auto) 24, Monocytes (%) (Auto) 12, Eosinophils (%) (Auto) 5, Basophils (%) (Auto) 1, Neutrophils # (Auto) 3.2, Lymphocytes # (Auto) 1.3, Monocytes # (Auto) 0.6, Eosinophils # (Auto) 0.3, Basophils # (Auto) 0.0, Immature Granulocyte # (Auto) 0.0, Sodium Level 138, Potassium Level 4.6, Chloride Level 99, Carbon Dioxide Level 31, Anion Gap 8, Blood Urea Nitrogen 54H , Creatinine 1.94H, Estimat Glomerular Filtration Rate 33, BUN/Creatinine Ratio 28, Glucose Level 150H, Calcium Level 8.5 Microbiology 10/07/21 C. difficile GDH Antigen & Toxins - Final, Complete Laboratory Tests 10/06/21 15:33 10/07/21 05:23 10/08/21 06:35 A/P: Assessment: Ac-on-ch renal failure - acute component likely due to intravascular volume depletion (diuresis) - improved with IVF hydration - chronic component likely due to diabetic nephropathy Hyperkalemia due to ac renal failure - resolved Ac-on-ch CHF, systolic, improved - Echo 10/02/21: Left ventricle: Mild LVH, impaired LV function with mild to mod global hypokinesis and LVEF 35-40%, mild MAC, mod MR, AoV sclerosis w/o stenosis, mild AI, mild to mod TR, PASP 50-55 mmHg, pleural effusions seen - s/p thoracentesis on 10/03/21: transudate, likely related to CHF Near-syncope of undetermined etiology - no further episodes Melena - EGD 10/03/21 (Dr Henderson): av malformation, reflux esophagitis, duodenal polyp; treated with polypectomy duodenum and biopsies antrum and ge CAD - reported h/o CABG x 4 vessel - followed by his customs broker Dr Parada - Echo of 04/11/20: LVEF 40-45%, grade 3 wolf dysfunction, biatrial enlargement, PASP 55-60 mmHg PPM - pt states it is followed by Dr. Parada his primary customs broker - interrogation of 10/02/21 shows dual chamber pacemaker in the DOOR mode, functioning normally (as directed by the DOOR mode). 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 Henderson d/t ischemic colon DM 2 HTN HLD Macular degeneration Tobaccoism - smokes cigars Prob COPD BPH with urinary retention and hematuria - managed per Dr. Sal Plan: * Complex management due to multiple CV comorbidities * Renal function improved * Potassium WNL * D/C IVF * Continue current medication regimen * Monitor lab closely * Xarelto dose adjusted to renal failure * Gentle hydration TRACIE NAIK ENGINEERED WOOD DESIGNER Oct 08, 2021 10:39
[2021-10-08] MEDS: HYDROcodone/APAP 5 MG/325 MG (LORTAB) TAB PO PRN (11:06)
[2021-10-08 11:20] VITALS: BP 121/64
--- NOTE | 2021-10-08 14:51 | Progress Note - Cardiology ---
Cardiology SOAP Progress Note Subjective: No cp or palp or syncope or shortness of breath Gen weakness present No n/v/d Objective: I&O/Vital Signs 10/08/21 10/08/21 10/08/21 10/08/21 04:18 08:00 08:45 11:20 Temp 36.8 37.0 36.6 Pulse 70 70 70 Resp 22 18 20 B/P (MAP) 103/50 (67) 104/47 (66) 121/64 (83) Pulse Ox 95 97 98 94 O2 Delivery Nasal Cannula Nasal Cannula Nasal Cannula Nasal Cannula O2 Flow Rate 5.00 5.00 5.00 5.00 10/08/21 00:00 Intake Total 445 ml Output Total 875 ml Balance -430 ml Weight (Pounds): 226 Weight (Ounces): 9.6 Weight (Calculated Kilograms): 102.974722 Constitutional: well-developed, well-nourished, other (slow to respond, appears confused intermittently) Respiratory: chest expansion is symmetric, chest is bilaterally symmetric, other Cardiovascular: regular rate-rhythm, S1 and S2, systolic murmur Gastrointestional: soft, round Extremities: other (R BKA), no lower extremity edema bilateral Neurologic/Psychiatric: other (sluggish responses and intermittently confused and seems to be able to move all limbs) Skin: warm/dry; No rash on exposed areas, No ulcerations on exposed areas Results/Procedures: Labs Laboratory Tests 10/07/21 15:49: Glucometer 153H 10/07/21 16:03: Glucometer 133H 10/07/21 20:12: Glucometer 164H 10/08/21 06:13: Glucometer 155H 10/08/21 06:35: White Blood Count 5.5, Red Blood Count 2.75L, Hemoglobin 8.0L, Hematocrit 26L, M eva Corpuscular Volume 96, Mean Corpuscular Hemoglobin 29, Mean Corpuscular Hemoglobin Concent 30L, Red Cell Distribution Width 15.8H, Platelet Count 170, Mean Platelet Volume 10.3, Immature Granulocyte % (Auto) 0, Neutrophils (%) (Auto) 59, Lymphocytes (%) (Auto) 24, Monocytes (%) (Auto) 12, Eosinophils (%) (Auto) 5, Basophils (%) (Auto) 1, Neutrophils # (Auto) 3.2, Lymphocytes # (Auto) 1.3, Monocytes # (Auto) 0.6, Eosinophils # (Auto) 0.3, Basophils # (Auto) 0.0, Immature Granulocyte # (Auto) 0.0, Sodium Level 138, Potassium Level 4.6, Chloride Level 99, Carbon Dioxide Level 31, Anion Gap 8, Blood Urea Nitrogen 54H , Creatinine 1.94H, Estimat Glomerular Filtration Rate 33, BUN/Creatinine Ratio 28, Glucose Level 150H, Calcium Level 8.5 10/08/21 10:45: Glucometer 236H Microbiology 10/07/21 C. difficile GDH Antigen & Toxins - Final, Complete Laboratory Tests 10/06/21 15:33 10/07/21 05:23 10/08/21 06:35 A/P: Assessment: Ac-on-ch renal failure - acute component likely due to intravascular volume depletion (diuresis) - improved with IVF hydration - chronic component likely due to diabetic nephropathy Hyperkalemia due to ac renal failure - resolved Ac-on-ch CHF, systolic, improved - Echo 10/02/21: Left ventricle: Mild LVH, impaired LV function with mild to mod global hypokinesis and LVEF 35-40%, mild MAC, mod MR, AoV sclerosis w/o stenosis, mild AI, mild to mod TR, PASP 50-55 mmHg, pleural effusions seen - s/p thoracentesis on 10/03/21: transudate, likely related to CHF Near-syncope of undetermined etiology - no further episodes Melena - EGD 10/03/21 (Dr Henderson): av malformation, reflux esophagitis, duodenal polyp; treated with polypectomy duodenum and biopsies antrum and ge CAD - reported h/o CABG x 4 vessel - followed by his certified prosthetist/orthotist Dr Parada - Echo of 04/11/20: LVEF 40-45%, grade 3 wolf dysfunction, biatrial enlargement, PASP 55-60 mmHg PPM - pt states it is followed by Dr. Parada his primary certified prosthetist/orthotist - interrogation of 10/02/21 shows dual chamber pacemaker in the DOOR mode, functioning normally (as directed by the DOOR mode). 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 Henderson d/t ischemic colon DM 2 HTN HLD Macular degeneration Tobaccoism - smokes cigars Prob COPD BPH with urinary retention and hematuria - managed per Dr. Sal Plan: * Complex management due to multiple CV comorbidities * Renal function improved * Potassium WNL * D/C IVF * Continue current medication regimen * Monitor lab closely * Resume lower dose diuretics when renal functions starts to approach baseline JOSIAH MORENO MD FACP FAC CCDS Oct 08, 2021 14:51
--- NOTE | 2021-10-08 15:15 | Physical Therapy Evaluation ---
PT Evaluation-General Medical Diagnosis Admission Date Oct 02, 2021 at 12:05 Medical Diagnosis: respiratory failure Onset Date: Oct 02, 2021 Therapy Diagnosis Therapy Diagnosis: impaired mobility, strength, endurance Height/Weight Height (Feet): 5 Height (Inches): 9.00 Weight (Pounds): 226 Weight (Ounces): 9.6 Precautions Precautions/Isolations: Fall Prevention, Standard Precautions Referral Physician: Chelsea Reason for Referral: Evaluation/Treatment Medical History Pertinent Medical History: CABG, CAD, DM, Heart Failure, HTN, Neuropathy, PVD, Renal Insufficiency, Smoking Social History Current Living Status: Spouse Entry Into Home: Ramp Prior Prior Level of Function SCALE: Activities may be completed with or without assistive devices. 2-Gdaiddlpub-wbalbyt completes the activity by him/herself with no assistance from a helper. 5-Set-up or Clean-up Assistance-helper sets up or cleans up; patient completes activity. [place] assists only prior to or following the activity. 4-Supervision or Touching Assistance-helper provides verbal cues and/or touching/steadying and/or contact guard assistance as patient completes activity. Assistance may be provided throughout the activity or intermittently. 3-Partial/Moderate Assistance-helper does LESS THAN HALF the effort. [place] lifts, holds or supports trunk or limbs, but provides less than half the effort. 2-Substantial/Maximal Assistance-helper does MORE THAN HALF the effort. [place] lifts or holds trunk or limbs and provides more than half the effort. 0-Uphpyplob-zzyxpo does ALL the effort. Patient does none of the effort to c omplete the activity. Or, the assistance of 2 or more helpers is required for the patient to complete the activity. If activity was not attempted, code reason: 7-Patient Refused. 9-Not Applicable-not attempted and the patient did not perform the activity before the current illness, exacerbation or injury. 10-Not Attempted due to Environmental Limitations-(lack of equipment, weather restraints, etc.). 88-Not Attempted due to Medical Conditions or Safety Concerns. Bed Mobility: 3 Transfers (B,C,W/C): 3 Wheelchair Mobility: 4 Prior Devices Use: Manual wheelchair, Walker PT Evaluation-Current Subjective Patient in recliner pre tx, agrees to PT, has unrated pain in his left leg. Patient is already wearing his prosthetic leg. Pt/Family Goals to be independent at home Objective Patient Orientation: Person, Place, Situation ROM/Strength ROM Lower Extremities WNL except patient has decreased ROM in right ankle Strength Lower Extremities LLE (hip flexion 4/5, knee flexion 4/5, knee extension 4/5, dorsiflexion 3-/5), RLE (hip flexion 4/5, knee flexion 4-/5, knee extension 4-/5) Sensory Vision: Wears Glasses Hearing: Functional Sensation Right Lower Extremit: Impaired Sensation Left Lower Extremity: Impaired Transfers Sit to Stand (QC): 3 Patient is able to stand with min/mod assist and take a couple of steps forward and then back. Patient is very shaky when standing, states it feels like his knees are going to buckle. Gait Distance: 4' Gait Assistive Device: FWW Comments/Gait Description Faye Balance Sitting Static: Good Sitting Dynamic: Good Standing Static: Fair Standing Dynamic: Poor Treatment BLE seated exercises x20 (LAQ, hip flexion) Assessment/Needs Patient has impaired mobility, strength, endurance. Patient needs min to mod assist to stand from a chair. Patient states he can supine <-> sit on his own but his family indicated that he needs help to do this. Rehab Potential: Fair PT [facility] Goals Virtual Recruiter Goals PT Virtual Recruiter Goals Time Frame: Oct 15, 2021 Roll Left & Right (QC): 6 Sit to Lying (QC): 4 Lying-Sitting on Side/Bed(QC): 4 Sit to Stand (QC): 4 Chair/Xxh-nt-Uzqrn Xfer(QC): 4 Walk 10 feet (QC): 4 PT Plan Problem List Problem List: Activity Tolerance, Functional Strength, Safety, Balance, Gait, Transfer, Bed Mobility, ROM Treatment/Plan Treatment Plan: Continue Plan of Care Treatment Plan: Bed Mobility, Education, Functional Activity Katlyn, Functional Strength, Gait, Safety, Therapeutic Exercise, Transfers Treatment Duration: Oct 15, 2021 Frequency: 6 times per week Estimated Hrs Per Day: .25 hour per day Patient and/or Family Agrees t: Yes Safety Risks/Education Patient Education: Gait Training, Transfer Techniques, Correct Positioning, Safety Issues Teaching Recipient: Patient Teaching Methods: Demonstration, Discussion Response to Teaching: Reinforcement Needed Discharge Recommendations Plan Patient will perform bed mobility and transfer training, balance and endurance training, functional strengthening, gait training, and education, to improve functional mobility and independence at home. Therapy Discharge Recommendati: Scheduled Assistance, Home & Family, Post Acute PT Time/GCodes Time In: 1443 Time Out: 1454 Total Billed Treatment Time: 11 Total Billed Treatment 1 visit CATALINA Adamson' NICOLE ESCUDERO PT Oct 08, 2021 15:15
[2021-10-08 16:00] VITALS: BP 97/50
[2021-10-08] MEDS: FINASTERIDE (PROSCAR) 5 MG TAB PO SCH (16:14)
[2021-10-08] MEDS: FLUoxetine HCL 20 MG (PROzac) CAP PO SCH (16:14)
[2021-10-08] MEDS: RIVAROXABAN 15 MG TABLET (XARELTO) PO SCH (16:17)
[2021-10-08] MEDS: ATENOLOL 25 MG (TENORMIN) TAB PO SCH ×2 (16:17→16:20)
[2021-10-08] MEDS ORDERED: ONDANSETRON 4 MG/2 ML (SDV) Z0FRAN ONE (18:14)
[2021-10-08] MEDS: ONDANSETRON 4 MG/2 ML (SDV) Z0FRAN IVP PRN (18:17)
[2021-10-08 19:55] VITALS: BP 110/61
--- NOTE | 2021-10-08 20:09 | Progress Note ---
Subjective Subjective/Events-last exam Patient feeling better today. Family states that they do not feel comfortable taking patient home. Tolerating PO diet. Review of Systems General: Fatigue Pulmonary: Dyspnea; No Cough Cardiovascular: No: Chest Pain, Palpitations Gastrointestinal: No: Nausea, Vomiting, Abdominal Pain, Diarrhea, Constipation Neurological: Weakness, Incoordination Objective Exam Last Set of Vital Signs Vital Signs Date Time Temp Pulse Resp B/P (MAP) Pulse Ox O2 Delivery O2 Flow Rate FiO2 10/08/21 19:55 37.0 70 16 110/61 (77) 94 High Flow N/C 5.00 10/03/21 09:00 30 Capillary Refill : Less Than 3 Seconds I&O Intake and Output 10/08/21 00:00 Intake Total 865 ml Output Total 1225 ml Balance -360 ml Intake Oral 865 ml Output Urine Total 1225 ml General: Alert, Oriented X3, No Acute Distress Lungs: Clear to Auscultation, Normal Air Movement Heart: Regular Rate, No Murmurs Abdomen: Normal Bowel Sounds, Soft, No Tenderness, No Masses Extremities: No Edema, No Tenderness/Swelling Neuro: Normal Speech, Sensation Intact, Cranial Nerves 3-12 NL Psych/Mental Status: Mental Status NL, Mood NL Results/Procedures Lab Laboratory Tests 10/07/21 20:12: Glucometer 164H 10/08/21 06:13: Glucometer 155H 10/08/21 06:35: White Blood Count 5.5, Red Blood Count 2.75L, Hemoglobin 8.0L, Hematocrit 26L, Mean Corpuscular Volume 96, Mean Corpuscular Hemoglobin 29, Mean Corpuscular Hemoglobin Concent 30L, Red Cell Distribution Width 15.8H, Platelet Count 170, Mean Platelet Volume 10.3, Immature Granulocyte % (Auto) 0, Neutrophils (%) (Auto) 59, Lymphocytes (%) (Auto) 24, Monocytes (%) (Auto) 12, Eosinophils (%) (Auto) 5, Basophils (%) (Auto) 1, Neutrophils # (Auto) 3.2, Lymphocytes # (Auto) 1.3, Monocytes # (Auto) 0.6, Eosinophils # (Auto) 0.3, Basophils # (Auto) 0.0, Immature Granulocyte # (Auto) 0.0, Sodium Level 138, Potassium Level 4.6, Chloride Level 99, Carbon Dioxide Level 31, Anion Gap 8, Blood Urea Nitrogen 54H , Creatinine 1.94H, Estimat Glomerular Filtration Rate 33, BUN/Creatinine Ratio 28, Glucose Level 150H, Calcium Level 8.5 10/08/21 10:45: Glucometer 236H 10/08/21 16:03: Glucometer 78 10/08/21 18:10: Glucometer 120H Microbiology 10/07/21 C. difficile [facility] Antigen & Toxins - Final, Complete Radiology 1. Small bilateral pleural effusions, increased since the prior exam. 2. Airspace opacities in the upper lobes, may be due to edema or infection Assessment/Plan Assessment/Plan (1) Acute on chronic respiratory failure with hypoxia and hypercapnia Status: Acute Assessment & Plan: 10/06: Continue to titrate as tolerated, has home oxygen requirement, MAT protocol 10/07: On home oxygen, getting close to d/c 10/08: IRF eval ordered today, patient on baseline oxygen (2) Acute on chronic systolic (congestive) heart failure Status: Acute Assessment & Plan: 10/06: Cardiology consulted, appreciate recommendations, Diuretic held, near dry weight (3) Acute on chronic renal failure Status: Acute Assessment & Plan: 10/06: Cr has trended up, will continue to monitor, maybe over diuresed 10/07: Gentle hydration, Cr baseline 1.7 10/08: Patient at baseline Cr (4) Normocytic anemia Status: Acute Assessment & Plan: 10/06: Stable, will continue to monitor (5) Atrial fibrillation Status: Acute Assessment & Plan: 10/06: Rate controlled, OAC renally dosed 10/07: Nosebleed O/N, will continue to monitor, Hgb stable (6) Melena Status: Acute Assessment & Plan: 10/06: Scoped by Beatriz during admission (7) Hyperkalemia Status: Resolved Assessment & Plan: - Stop replacement, repeat in AM JOSE J GROVE MD Oct 08, 2021 20:09
[2021-10-08] MEDS: PROMETHAZINE INJ 25 MG/ML (PHENERGAN) AMP IVP PRN (21:31)
[2021-10-09] VITALS: BP 144/61
[2021-10-09] MEDS: RT-ALBUTEROL SULF 2.5 MG/3 ML PRE-MIX VIAL INH SCH ×4 (03:14→21:01)
[2021-10-09 04:07] VITALS: BP 131/66
[2021-10-09] MEDS: ONDANSETRON 4 MG/2 ML (SDV) Z0FRAN IVP PRN ×3 (04:07→23:23)
[2021-10-09] MEDS: SUCRALFATE 1 GM (CARAFATE) TAB PO SCH ×4 (05:25→21:51)
[2021-10-09] MEDS: inSUlin ASPART (NovoLOG) 1 UNIT/0.01 ML (CHARGE PER UNIT) SC SCH ×4 (05:26→21:51)
[2021-10-09] MEDS: MULTIVIT W/MINERALS TAB (THERAGRAN M) PO SCH (05:26)
[2021-10-09] MEDS: PROMETHAZINE INJ 25 MG/ML (PHENERGAN) AMP IVP PRN ×2 (05:32→14:40)
[2021-10-09] MEDS: CATHETER FLUSH 10 ML SYR IV SCH ×3 (05:32→21:52)
[2021-10-09 05:53] LABS: BASOPHILS % (AUTO) 1 % (0-10); EOSINOPHILS # (AUTO) 0.1 10^3/uL (0.0-0.3); EOSINOPHILS % (AUTO) 1 % (0-10); HEMATOCRIT 29 % (40-54); HEMOGLOBIN 8.4 g/dL (13.3-17.7); LYMPHOCYTES # (AUTO) 0.7 10^3/uL (1.0-4.0); LYMPHOCYTES % (AUTO) 12 % (12-44); MEAN CORPUSCULAR HEMOGLOBIN 28 pg (25-34); MEAN CORPUSCULAR HGB CONC 29 g/dL (32-36); MEAN CORPUSCULAR VOLUME 97 fL (80-99); MEAN PLATELET VOLUME 10.4 fL (9.0-12.2); MONOCYTES # (AUTO) 0.3 10^3/uL (0.0-1.0); MONOCYTES % (AUTO) 5 % (0-12); NEUTROPHILS % (AUTO) 81 % (42-75); PLATELET COUNT 185 10^3/uL (130-400); WHITE BLOOD COUNT 6.2 10^3/uL (4.3-11.0)
[2021-10-09 05:55] LABS: POTASSIUM 5.3 MMOL/L (3.6-5.0)
[2021-10-09 05:56] LABS: CALCIUM 8.6 MG/DL (8.5-10.1)
[2021-10-09 06:01] LABS: CREATININE SERUM 1.8 MG/DL (0.60-1.30)
--- NOTE | 2021-10-09 07:25 | Progress Note - Surgery ---
TULIO MCGARRY 10/09/21 0725: Subjective Time Seen by a Provider: 06:30 Subjective/Events-last exam Patient was seen at bedside this morning. He was lethargic and difficult to communicate with this morning. He had episodes of nausea and vomiting which contained blood. He was also noted to contain chunks of carrots in his emesis. He is in no pain. Overnight he became disconnected from his oxygen supply and his oxygen saturation dropped to the 40s. He was not using his call light as he usually does and called for the nurse. Dr. Tran notified and was placed on oxym ask with high flow and saturation returned to the 90s. Upon speaking with the patient his oxygen saturation was 98%. The patient also pulled the bandage off his nose which began to bleed again last night. This has since resolved and a fresh bandage has been placed. Review of Systems General: No Chills, No Fatigue HEENT: No Head Aches, No Visual Changes Pulmonary: No Dyspnea, No Pleuritic Chest Pain Cardiovascular: No: Chest Pain, Lt Headedness Gastrointestinal: Nausea, Vomiting, Diarrhea; No: Abdominal Pain Genitourinary: No Dysuria, No Frequency Musculoskeletal: leg pain (left ); No: arm pain Neurological: No: Weakness, Numbness Objective Exam Vital Signs Date Time Temp Pulse Resp B/P (MAP) Pulse Ox O2 Delivery O2 Flow Rate FiO2 10/09/21 04:07 36.6 70 18 131/66 (87) 96 Simple Mask 4.00 10/09/21 03:15 98 OxyMask 5.00 10/09/21 00:00 36.6 70 20 144/61 (88) 96 High Flow N/C 5.00 10/08/21 21:00 95 High Flow N/C 5.00 10/08/21 19:55 37.0 70 16 110/61 (77) 94 High Flow N/C 5.00 10/08/21 16:00 37.2 64 26 97/50 (66) 97 High Flow N/C 5.00 10/08/21 15:43 95 Nasal Cannula 5.00 10/08/21 11:20 36.6 70 20 121/64 (83) 94 Nasal Cannula 5.00 10/08/21 09:00 High Flow N/C 4.00 10/08/21 08:45 98 Nasal Cannula 5.00 10/08/21 08:00 37.0 70 18 104/47 (66) 97 Nasal Cannula 5.00 I & O 10/09/21 07:00 Intake Total 910 ml Output Total 1415 ml Balance -505 ml Capillary Refill : Less Than 3 Seconds General Appearance: No Apparent Distress, WD/WN, Chronically ill HEENT: PERRL/EOMI, Normal ENT Inspection Neck: Full Range of Motion, Non Tender, Supple Respiratory: Chest Non Tender, No Accessory Muscle Use, No Respiratory Distress, Wheezing Cardiovascular: Regular Rate, Rhythm, No JVD, Normal Peripheral Pulses Peripheral Pulses: 1+ Left Dors-Pedis (L); 2+ Radial Pulses (R), 2+ Radial Pulses (L) Gastrointestinal: non tender, soft, no organomegaly; No guarding, No rebound, No tenderness Extremity: Non Tender, No Calf Tenderness, Other (Right BKA ) Neurologic/Psychiatric: No Motor/Sensory Deficits, Disoriented (Lethargic) Skin: Normal Color, Warm/Dry Lymphatic: No Adenopathy Results Lab Laboratory Tests 10/08/21 10:45: Glucometer 236H 10/08/21 16:03: Glucometer 78 10/08/21 18:10: Glucometer 120H 10/08/21 20:17: Glucometer 100 10/09/21 05:24: Glucometer 151H 10/09/21 05:25: White Blood Count 6.2, Red Blood Count 2.97L, Hemoglobin 8.4L, Hematocrit 29L, Mean Corpuscular Volume 97, Mean Corpuscular Hemoglobin 28, Mean Corpuscular Hemoglobin Concent 29L, Red Cell Distribution Width 15.6H, Platelet Count 185, Mean Platelet Volume 10.4, Immature Granulocyte % (Auto) 0, Neutrophils (%) (Auto) 81H, Lymphocytes (%) (Auto) 12, Monocytes (%) (Auto) 5, Eosinophils (%) (Auto) 1, Basophils (%) (Auto) 1, Neutrophils # (Auto) 5.0, Lymphocytes # (Auto) 0.7L, Monocytes # (Auto) 0.3, Eosinophils # (Auto) 0.1, Basophils # (Auto) 0.0, Immature Granulocyte # (Auto) 0.0, Sodium Level 140, Potassium Level 5.3H, Chloride Level 101, Carbon Dioxide Level 28, Anion Gap 11, Blood Urea Nitrogen 53H, Creatinine 1.80H, Estimat Glomerular Filtration Rate 36, BUN/Creatinine Ratio 29, Glucose Level 154H, Calcium Level 8.6 Microbiology 10/07/21 C. difficile [facility] Antigen & Toxins - Final, Complete Meds Item Value Date Time Promethazine HCl 25 mg 10/08/21 2100 (Phenergan Q6HR PRN/IVP 10/09/21 0532 Injection) Ondansetron HCl 4 mg 10/08/21 1815 (Zofran Q4H PRN/IVP 10/09/21 0407 Injection (Sdv)) Albuterol Sulfate 2.5 mg 10/05/21 2100 (Proventil RTQ6HR/INH 10/09/21 0314 Pre-Mix Nebs (Rt)) Pantoprazole 40 mg 10/05/21 0900 Sodium DAILY/PO 10/08/21 0957 (Protonix Tablet) Acetaminophen/ 1 ea 10/03/21 2215 Hydrocodone Bitart Q6H PRN/PO 10/08/21 1106 (Lortab 5 Mg Tablet) Fluoxetine HCl 20 mg 10/03/21 1800 (PROzac CAPSULE) 1800/PO 10/08/21 1614 Finasteride 5 mg 10/03/21 1800 (Proscar Tablet) 1800/PO 10/08/21 1614 Atenolol 25 mg 10/03/21 1800 (Tenormin Tablet) 1800/PO Sucralfate 1 gm 10/03/21 1600 (Carafate ACHS/PO Tablet) Lorazepam 0.5 mg 10/03/21 0900 (Ativan Tablet) DAILY/PO 10/08/21 1005 Calcium Carbonate 600 mg 10/03/21 0900 (Calcarb 600 DAILY/PO 10/08/21 1005 Tablet) Aspirin 81 mg 10/03/21 0900 (Ecotrin Tablet) DAILY/PO 10/08/21 0957 Ascorbic Acid 500 mg 10/03/21 0800 (Vitamin C DAILY@0800/PO 10/08/21 0957 Tablet) Insulin Human 10 unit 10/03/21 0800 Isoph/Insulin BIDPC/SQ 10/08/21 1820 Regular (HumuLIN 70/30 MIX (CHARGE PER UNIT)) Multivitamins/ 1 ea 10/03/21 0700 Minerals DAILY@0700/PO Therapeutic (Vitamins, Multi w/Minerals Tablet) Tamsulosin HCl 0.4 mg 10/02/212099 (Flomax Capsule) BID/PO 10/08/212133 Gabapentin 300 mg 10/02/212099 (Neurontin BID/PO 10/08/212133 Capsule/Tablet) Rivaroxaban 15 mg 10/02/21 1700 (Xarelto Tablet) DAILY@1700/PO 10/08/21 1617 Insulin Aspart SLIDING SCALE A BLOO... 10/02/21 1600 (NovoLOG (CHARGE ACHS/SC PER UNIT)) Albuterol Sulfate 2.5 mg 10/02/21 1545 (Proventil Q2HR PRN/INH Pre-Mix Nebs (Rt)) Acetaminophen 650 mg 10/02/21 1415 (Tylenol Tablet) Q6H PRN/PO Sodium Chloride 10-40 ML 10/02/21 1400 (Catheter Flush Q8HR/IV 10/09/21 0532 Syringe) Sodium Chloride 10-40 ML 10/02/21 1400 (Catheter Flush NEEDED PRN/IV Syringe) Assessment/Plan Assessment/Plan Assessment/Plan Acute CHF exacerbation with bilateral pleural effusions Melena CKD Anemia Current use anticoagulant Hypotension Patient off BIPAP. He remains on 5L O2 via simple mask. Continue diuresis. Monitor creatinine with CMP due to CKD. Anticoagulation continued with Xarelto. Melena resolved. Hemoglobin stable continue to monitor. Chest X ray. Bronchoscopy or EGD. Switch patient to soft diet. NORRIS HENDERSON DO 10/09/21 2018: Subjective Subjective/Events-last exam Patient having more difficulty with breathing. Has an oxygen saturation decreasing requiring more oxygen supplementation. Patient states his breathing is low bit better now than earlier. He is not had any other melena. His hemoglobin stable. Patient with slight confusion. He denies any nausea vomiting fever sweats chills or chest pain at this time. Objective Exam General Appearance: No Apparent Distress, Chronically ill HEENT: PERRL/EOMI, Normal ENT Inspection, Other (Small wound bridge of nose) Neck: Full Range of Motion, Non Tender Respiratory: Chest Non Tender, Wheezing Cardiovascular: Regular Rate, Rhythm, No JVD Gastrointestinal: non tender, soft Extremity: Non Tender Neurologic/Psychiatric: Alert, Disoriented (Lethargic) Skin: Normal Color, Warm/Dry Lymphatic: No Adenopathy Assessment/Plan Assessment/Plan Assessment/Plan Acute CHF exacerbation with bilateral pleural effusions Melena CKD Anemia Current use anticoagulant Hypotension Patient off BIPAP. He remains on 5L O2 via simple mask. Continue diuresis. Monitor creatinine with CMP due to CKD. Anticoagulation continued with Xarelto. Melena resolved. Hemoglobin stable continue to monitor. Will get chest x ray to further evaluate for effusions or cause of hypoxia Supervisory-Addendum Brief Verification & Attestation Participated in pt care: history, MDM, physical Personally performed: exam, history, MDM, supervision of care Care discussed with: Medical Student Procedures: n/a Results interpretation: Verified all documentation Verification and Attestation of Medical Student E/M Service A medical student performed and documented this service in my presence. I reviewed and verified all information documented by the medical student and made modifications to such information, when appropriate. I personally performed the physical exam and medical decision making. Norris Henderson, Oct 09, 2021,20:18 TULIO MCGARRY Oct 09, 2021 07:25 NORRIS HENDERSON DO Oct 09, 2021 20:18
[2021-10-09 08:00] VITALS: BP 120/48
[2021-10-09] MEDS: LORazepam 0.5 MG (ATIVAN) TABLET PO SCH (08:01)
[2021-10-09] MEDS: TAMSULOSIN 0.4 MG (FLOMAX) CAP PO SCH ×2 (08:03→21:51)
[2021-10-09] MEDS: PANTOPRAZOLE 40 MG (PROTONIX) TAB PO SCH (08:03)
[2021-10-09] MEDS: CALCIUM CARBONATE 600 MG (CALCARB) TAB PO SCH (08:03)
[2021-10-09] MEDS: GABAPENTIN 300 MG (NEURONTIN) CAP PO SCH ×2 (08:03→21:51)
[2021-10-09] MEDS: ASPIRIN E.C. 81 MG (ECOTRIN) TAB PO SCH (08:04)
[2021-10-09] MEDS: ASCORBIC ACID (VIT C) 500 MG TABLET PO SCH (08:04)
[2021-10-09] MEDS: inSUlin NPH/REG (NovoLIN 70/30) CHARGE PER UNIT SQ SCH ×2 (08:48→18:34)
--- NOTE | 2021-10-09 10:02 | Physical Therapy Daily Note ---
PT Daily Note-Current Subjective Patient is very listless/lethargic. Oxymask not in place with SAO2 80%. PT placed oxymask with patient recovering to 90% very slowly. Mental Status Patient Orientation: Confused, Listless Transfers SCALE: Activities may be completed with or without assistive devices. 5-Aavpnezcmd-ghartuc completes the activity by him/herself with no assistance from a helper. 5-Set-up or Clean-up Assistance-helper sets up or cleans up; patient completes activity. Teague assists only prior to or following the activity. 4-Supervision or Touching Assistance-helper provides verbal cues and/or touching/steadying and/or contact guard assistance as patient completes activity. Assistance may be provided throughout the activity or intermittently. 3-Partial/Moderate Assistance-helper does LESS THAN HALF the effort. Teague lifts, holds or supports trunk or limbs, but provides less than half the effort. 2-Substantial/Maximal Assistance-helper does MORE THAN HALF the effort. Teague lifts or holds trunk or limbs and provides more than half the effort. 6-Ubahkahfp-uccmvx does ALL the effort. Patient does none of the effort to complete the activity. Or, the assistance of 2 or more helpers is required for the patient to complete the activity. If activity was not attempted, code reason: 7-Patient Refused. 9-Not Applicable-not attempted and the patient did not perform the activity before the current illness, exacerbation or injury. 10-Not Attempted due to Environmental Limitations-(lack of equipment, weather restraints, etc.). 88-Not Attempted due to Medical Conditions or Safety Concerns. Roll Left & Right (QC): 2 repositioned up in bed with linen and clothing change due to incontinence of urine and IV pulled out Assessment Patient very listless with decreased SAO2 due to patient will not leave oxymask in place per RN. Patient tolerates minimal activity and is cleansed due to incontinence of urine and paste applied to coccyx region due to breakdown. RN notified of IV. PT E Mail System Administrator Goals E Mail System Administrator Goals PT [facility] Goals Time Frame: Oct 15, 2021 Roll Left & Right (QC): 6 Sit to Lying (QC): 4 Lying-Sitting on Side/Bed(QC): 4 Sit to Stand (QC): 4 Chair/Tjh-gz-Uypvu Xfer(QC): 4 Walk 10 feet (QC): 4 PT Plan Treatment/Plan Treatment Plan: Continue Plan of Care Treatment Plan: Bed Mobility, Education, Functional Activity Katlyn, Functional Strength, Gait, Safety, Therapeutic Exercise, Transfers Treatment Duration: Oct 15, 2021 Frequency: 6 times per week Estimated Hrs Per Day: .25 hour per day Patient and/or Family Agrees t: Yes Time/GCodes Time In: 825 Time Out: 848 Total Billed Treatment Time: 23 Total Billed Treatment 1 visit FA x 2 23 min DHARMESH PAYNE PT Oct 09, 2021 10:02
--- NOTE | 2021-10-09 10:12 | Diagnostic Imaging Report ---
Indication: Vomiting and shortness of breath and cough Frontal chest obtained at 0908 a.m. and compared to 10/03/2021 There is prominent cardiomegaly. Pacemaker is unchanged. There is worsening infiltrate in the right lung with worsening right pleural effusion. Left basilar opacities unchanged. IMPRESSION: Worsening infiltrate right lung with worsening right pleural effusion. Underlying cardiomegaly. Stable left basilar opacity. Dictated by: Dictated on workstation # [id number]
[2021-10-09 11:50] VITALS: BP 129/63
[2021-10-09] MEDS: CEFEPIME INJECTION 1,000 MG in NS (IVPB) 50 ML IV SCH ×2 (15:08→21:51)
[2021-10-09 16:00] VITALS: BP 123/52
[2021-10-09] MEDS: RIVAROXABAN 15 MG TABLET (XARELTO) PO SCH (16:00)
[2021-10-09] MEDS: HYDROcodone/APAP 5 MG/325 MG (LORTAB) TAB PO PRN (17:55)
--- NOTE | 2021-10-09 18:00 | Progress Note ---
Subjective Subjective/Events-last exam Patient with worsening oxygen saturations ON and some N/V with blood. Patient was placed on oxymask and now satting in the 95 range but still states that he feels short of breath. Denies any pain. Review of Systems Pulmonary: Dyspnea Cardiovascular: No: Chest Pain, Palpitations, Edema Gastrointestinal: Nausea, Vomiting, Abdominal Pain Neurological: Weakness, Incoordination Objective Exam Last Set of Vital Signs Vital Signs Date Time Temp Pulse Resp B/P (MAP) Pulse Ox O2 Delivery O2 Flow Rate FiO2 10/09/21 17:04 OxyMask 3.00 10/09/21 16:00 36.8 69 20 123/52 (75) 94 10/03/21 09:00 30 Capillary Refill : Less Than 3 Seconds I&O Intake and Output 10/09/21 00:00 Intake Total 1060 ml Output Total 1690 ml Balance -630 ml Intake Oral 1060 ml Output Urine Total 1690 ml # [place] 2 General: Alert, Mild Distress (belly breathing) Lungs: Other (end exp wheezing, increased work of breathing with exertion) Heart: Regular Rate, No Murmurs Abdomen: Soft, Other (RLQ ttp, normal bowel sounds, no rebound or guarding) Extremities: Other (2+ pitting edema equal bilaterally) Neuro: Normal Speech (but slow to answer), Sensation Intact Results/Procedures Lab Laboratory Tests 10/08/21 18:10: Glucometer 120H 10/08/21 20:17: Glucometer 100 10/09/21 05:24: Glucometer 151H 10/09/21 05:25: White Blood Count 6.2, Red Blood Count 2.97L, Hemoglobin 8.4L, Hematocrit 29L, Mean Corpuscular Volume 97, Mean Corpuscular Hemoglobin 28, Mean Corpuscular Hemoglobin Concent 29L, Red Cell Distribution Width 15.6H, Platelet Count 185, Mean Platelet Volume 10.4, Immature Granulocyte % (Auto) 0, Neutrophils (%) (Auto) 81H, Lymphocytes (%) (Auto) 12, Monocytes (%) (Auto) 5, Eosinophils (%) (Auto) 1, Basophils (%) (Auto) 1, Neutrophils # (Auto) 5.0, Lymphocytes # (Auto) 0.7L, Monocytes # (Auto) 0.3, Eosinophils # (Auto) 0.1, Basophils # (Auto) 0.0, Immature Granulocyte # (Auto) 0.0, Sodium Level 140, Potassium Level 5.3H, Chloride Level 101, Carbon Dioxide Level 28, Anion Gap 11, Blood Urea Nitrogen 53H, Creatinine 1.80H, Estimat Glomerular Filtration Rate 36, BUN/Creatinine Ratio 29, Glucose Level 154H, Calcium Level 8.6 10/09/21 11:16: Glucometer 166H 10/09/21 17:44: Glucometer 170H Microbiology 10/07/21 C. difficile [facility] Antigen & Toxins - Final, Complete Radiology 1. Small bilateral pleural effusions, increased since the prior exam. 2. Airspace opacities in the upper lobes, may be due to edema or infection Assessment/Plan Assessment/Plan (1) Acute on chronic respiratory failure with hypoxia and hypercapnia Status: Acute Assessment & Plan: 10/06: Continue to titrate as tolerated, has home oxygen requirement, MAT protocol 10/07: On home oxygen, getting close to d/c 10/08: IRF eval ordered today, patient on baseline oxygen 10/09: Oxygen needs increased ON, CXR with new consolidation, antibiotics started (2) Acute on chronic systolic (congestive) heart failure Status: Acute Assessment & Plan: 10/06: Cardiology consulted, appreciate recommendations, Diuretic held, near dry weight (3) Acute on chronic renal failure Status: Acute Assessment & Plan: 10/06: Cr has trended up, will continue to monitor, maybe over diuresed 10/07: Gentle hydration, Cr baseline 1.7 10/08: Patient at baseline Cr (4) Normocytic anemia Status: Acute Assessment & Plan: 10/06: Stable, will continue to monitor (5) Atrial fibrillation Status: Acute Assessment & Plan: 10/06: Rate controlled, OAC renally dosed 10/07: Nosebleed O/N, will continue to monitor, Hgb stable (6) Melena Status: Acute Assessment & Plan: 10/06: Scoped by Beatriz during admission (7) Hyperkalemia Status: Resolved Assessment & Plan: - Stop replacement, repeat in AM JOSE J GROVE MD Oct 09, 2021 18:00
[2021-10-09] MEDS: ATENOLOL 25 MG (TENORMIN) TAB PO SCH (18:34)
[2021-10-09] MEDS: FINASTERIDE (PROSCAR) 5 MG TAB PO SCH (18:35)
[2021-10-09] MEDS: FLUoxetine HCL 20 MG (PROzac) CAP PO SCH (18:35)
[2021-10-09 20:00] VITALS: BP 118/56
--- NOTE | 2021-10-09 22:50 | Progress Note - Cardiology ---
Cardiology SOAP Progress Note Subjective: Does not answer questions in any detail No cp or palp or syncope Does not report shortness of breath Gen weakness and malaise No n/v/d Objective: I&O/Vital Signs 10/09/21 10/09/21 10/09/21 10/09/21 11:50 15:04 16:00 17:04 Temp 36.4 36.8 Pulse 70 69 Resp 18 20 B/P (MAP) 129/63 (85) 123/52 (75) Pulse Ox 96 100 94 O2 Delivery Simple Mask OxyMask OxyMask OxyMask O2 Flow Rate 4.00 5.00 5.00 3.00 10/09/21 20:00 Temp 37.3 Pulse 69 Resp 20 B/P (MAP) 118/56 (76) Pulse Ox 92 O2 Delivery OxyMask O2 Flow Rate 5.00 10/09/21 00:00 Intake Total 860 ml Output Total 1115 ml Balance -255 ml Weight (Pounds): 226 Weight (Ounces): 9.6 Weight (Calculated Kilograms): 102.941378 Constitutional: well-developed, well-nourished, other (slow to respond, appears confused intermittently) Respiratory: chest expansion is symmetric, chest is bilaterally symmetric, other Cardiovascular: regular rate-rhythm, S1 and S2, systolic murmur Gastrointestional: soft, round Extremities: other (R BKA), no lower extremity edema bilateral Neurologic/Psychiatric: other (sluggish responses and intermittently confused and seems to be able to move all limbs) Skin: warm/dry; No rash on exposed areas, No ulcerations on exposed areas Results/Procedures: Labs Laboratory Tests 10/09/21 05:24: Glucometer 151H 10/09/21 05:25: White Blood Count 6.2, Red Blood Count 2.97L, Hemoglobin 8.4L, Hematocrit 29L, Mean Corpuscular Volume 97, Mean Corpuscular Hemoglobin 28, Mean Corpuscular Hemoglobin Concent 29L, Red Cell Distribution Width 15.6H, Platelet Count 185, Mean Platelet Volume 10.4, Immature Granulocyte % (Auto) 0, Neutrophils (%) ( Auto) 81H, Lymphocytes (%) (Auto) 12, Monocytes (%) (Auto) 5, Eosinophils (%) (Auto) 1, Basophils (%) (Auto) 1, Neutrophils # (Auto) 5.0, Lymphocytes # (Auto) 0.7L, Monocytes # (Auto) 0.3, Eosinophils # (Auto) 0.1, Basophils # (Auto) 0.0, Immature Granulocyte # (Auto) 0.0, Sodium Level 140, Potassium Level 5.3H, Chloride Level 101, Carbon Dioxide Level 28, Anion Gap 11, Blood Urea Nitrogen 53H, Creatinine 1.80H, Estimat Glomerular Filtration Rate 36, BUN/Creatinine Ratio 29, Glucose Level 154H, Calcium Level 8.6 10/09/21 11:16: Glucometer 166H 10/09/21 17:44: Glucometer 170H 10/09/21 20:04: Glucometer 165H Microbiology 10/07/21 C. difficile [facility] Antigen & Toxins - Final, Complete A/P: Assessment: Ac-on-ch renal failure - acute component likely due to intravascular volume depletion (diuresis) - improved with IVF hydration - chronic component likely due to diabetic nephropathy Hyperkalemia probably due to ac and ch renal failure Ac-on-ch CHF, systolic, improved - Echo 10/02/21: Left ventricle: Mild LVH, impaired LV function with mild to mod global hypokinesis and LVEF 35-40%, mild MAC, mod MR, AoV sclerosis w/o stenosis, mild AI, mild to mod TR, PASP 50-55 mmHg, pleural effusions seen - s/p thoracentesis on 10/03/21: transudate, likely related to CHF Near-syncope of undetermined etiology - no further episodes Melena - EGD 10/03/21 (Dr Henderson): av malformation, reflux esophagitis, duodenal polyp; treated with polypectomy duodenum and biopsies antrum and ge CAD - reported h/o CABG x 4 vessel - followed by his seo consultant Dr Parada - Echo of 04/11/20: LVEF 40-45%, grade 3 wolf dysfunction, biatrial enlargement, PASP 55-60 mmHg PPM - pt states it is followed by Dr. Parada his primary seo consultant - interrogation of 10/02/21 shows dual chamber pacemaker in the DOOR mode, functioning normally (as directed by the DOOR mode). 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 Henderson d/t ischemic colon DM 2 HTN HLD Macular degeneration Tobaccoism - smokes cigars Prob COPD BPH with urinary retention and hematuria - managed per Dr. Sal Plan: * Complex management due to multiple CV comorbidities * Renal function improved * Resume diuretics in a lower dose * Not suitable for ANH-inhib or ARB due to mild hyperkalemia at baseline * Monitor lab closely * Outpt f/u will be with his seo consultant Dr Parada in [place] ALI MD FACP [facility] Oct 09, 2021 22:50
[2021-10-10] VITALS (15 sets, daily range): BP systolic 71–139; BP diastolic 29–81
[2021-10-10] MEDS: PROMETHAZINE INJ 25 MG/ML (PHENERGAN) AMP IVP PRN (02:23)
[2021-10-10] MEDS: RT-ALBUTEROL SULF 2.5 MG/3 ML PRE-MIX VIAL INH SCH ×2 (03:14→09:54)
[2021-10-10] MEDS: inSUlin ASPART (NovoLOG) 1 UNIT/0.01 ML (CHARGE PER UNIT) SC SCH ×3 (05:24→15:53)
[2021-10-10] MEDS: CATHETER FLUSH 10 ML SYR IV SCH ×2 (05:52→15:29)
[2021-10-10] MEDS: CEFEPIME INJECTION 1,000 MG in NS (IVPB) 50 ML IV SCH ×2 (05:52→15:29)
[2021-10-10] MEDS: SUCRALFATE 1 GM (CARAFATE) TAB PO SCH ×3 (05:57→15:29)
[2021-10-10] MEDS: MULTIVIT W/MINERALS TAB (THERAGRAN M) PO SCH (05:58)
[2021-10-10 06:10] LABS: BASOPHILS % (AUTO) 0 % (0-10); EOSINOPHILS % (AUTO) 1 % (0-10); HEMATOCRIT 28 % (40-54); HEMOGLOBIN 8.1 g/dL (13.3-17.7); LYMPHOCYTES # (AUTO) 0.8 10^3/uL (1.0-4.0); LYMPHOCYTES % (AUTO) 13 % (12-44); MEAN CORPUSCULAR HEMOGLOBIN 29 pg (25-34); MEAN CORPUSCULAR HGB CONC 30 g/dL (32-36); MEAN CORPUSCULAR VOLUME 98 fL (80-99); MEAN PLATELET VOLUME 10.1 fL (9.0-12.2); MONOCYTES # (AUTO) 0.6 10^3/uL (0.0-1.0); MONOCYTES % (AUTO) 8 % (0-12); NEUTROPHILS # (AUTO) 5.2 10^3/uL (1.8-7.8); NEUTROPHILS % (AUTO) 78 % (42-75); PLATELET COUNT 184 10^3/uL (130-400); WHITE BLOOD COUNT 6.7 10^3/uL (4.3-11.0)
[2021-10-10 06:20] LABS: CALCIUM 8.8 MG/DL (8.5-10.1)
[2021-10-10 06:25] LABS: CREATININE SERUM 1.94 MG/DL (0.60-1.30)
[2021-10-10] MEDS: inSUlin NPH/REG (NovoLIN 70/30) CHARGE PER UNIT SQ SCH (07:35)
[2021-10-10] MEDS: ONDANSETRON 4 MG/2 ML (SDV) Z0FRAN IVP PRN (07:58)
[2021-10-10] MEDS: PANTOPRAZOLE 40 MG (PROTONIX) TAB PO SCH (07:59)
[2021-10-10] MEDS: TAMSULOSIN 0.4 MG (FLOMAX) CAP PO SCH (07:59)
--- NOTE | 2021-10-10 08:03 | Progress Note - Surgery ---
MALGORZATATULIO 10/10/21 0803: Subjective Time Seen by a Provider: 07:00 Subjective/Events-last exam Patient seen at beside this morning. He has no new complaints. He still is having nausea and vomiting and unable to consume anything without it be regurgitated. He has no pain and not had a bowel movement for 4 days. He has no hemoptysis and his nose wound has not bled. Review of Systems General: No Chills; Fatigue HEENT: No Head Aches, No Visual Changes Pulmonary: Dyspnea; No Pleuritic Chest Pain Cardiovascular: No: Chest Pain, Lt Headedness Gastrointestinal: Nausea, Vomiting; No: Abdominal Pain, Melena Genitourinary: No Dysuria, No Frequency Musculoskeletal: leg pain (left); No: arm pain Neurological: No: Weakness, Numbness Objective Exam Vital Signs Date Time Temp Pulse Resp B/P (MAP) Pulse Ox O2 Delivery O2 Flow Rate FiO2 10/10/21 03:54 36.6 71 21 136/70 (92) 94 OxyMask 5.00 10/10/21 03:15 98 OxyMask 5.00 10/10/21 00:17 37.3 69 19 114/63 (80) 97 OxyMask 5.00 10/09/21 21:50 High Flow N/C 5.00 10/09/21 21:20 100 OxyMask 5.00 10/09/21 20:00 37.3 69 20 118/56 (76) 92 OxyMask 5.00 10/09/21 17:04 OxyMask 3.00 10/09/21 16:00 36.8 69 20 123/52 (75) 94 OxyMask 5.00 10/09/21 15:04 100 OxyMask 5.00 10/09/21 11:50 36.4 70 18 129/63 (85) 96 Simple Mask 4.00 10/09/21 09:00 96 OxyMask 4.00 10/09/21 08:00 36.8 70 16 120/48 (72) 90 Simple Mask 4.00 I & O 10/10/21 07:00 Intake Total 500 ml Output Total 800 ml Balance -300 ml Capillary Refill : Less Than 3 Seconds General Appearance: No Apparent Distress, Chronically ill HEENT: PERRL/EOMI, Normal ENT Inspection, Other (Small wound bridge of nose) Neck: Full Range of Motion, Non Tender Respiratory: Chest Non Tender, No Accessory Muscle Use, Decreased Breath Sounds, Wheezing Cardiovascular: Regular Rate, Rhythm, No JVD Peripheral Pulses: 1+ Left Dors-Pedis (L); 2+ Radial Pulses (R), 2+ Radial Pulses (L) Gastrointestinal: non tender, soft; No guarding, No rebound, No tenderness Extremity: Non Tender, Other (Right BKA) Neurologic/Psychiatric: Alert, No Motor/Sensory Deficits Skin: Normal Color, Warm/Dry Lymphatic: No Adenopathy Results Lab Laboratory Tests 10/09/21 11:16: Glucometer 166H 10/09/21 17:44: Glucometer 170H 10/09/21 20:04: Glucometer 165H 10/10/21 05:19: Glucometer 133H 10/10/21 05:52: White Blood Count 6.7, Red Blood Count 2.82L, Hemoglobin 8.1L, Hematocrit 28L, Mean Corpuscular Volume 98, Mean Corpuscular Hemoglobin 29, Mean Corpuscular Hemoglobin Concent 30L, Red Cell Distribution Width 15.7H, Platelet Count 184, Mean Platelet Volume 10.1, Immature Granulocyte % (Auto) 0, Neutrophils (%) (Auto) 78H, Lymphocytes (%) (Auto) 13, Monocytes (%) (Auto) 8, Eosinophils (%) (Auto) 1, Basophils (%) (Auto) 0, Neutrophils # (Auto) 5.2, Lymphocytes # (Auto) 0.8L, Monocytes # (Auto) 0.6, Eosinophils # (Auto) 0.0, Basophils # (Auto) 0.0, Immature Granulocyte # (Auto) 0.0, Sodium Level 143, Potassium Level 5.0, Chloride Level 102, Carbon Dioxide Level 29, Anion Gap 12, Blood Urea Nitrogen 6 0H, Creatinine 1.94H, Estimat Glomerular Filtration Rate 33, BUN/Creatinine Ratio 31, Glucose Level 144H, Calcium Level 8.8 10/10/21 07:32: Glucometer 136H Microbiology 10/07/21 C. difficile GDH Antigen & Toxins - Final, Complete Meds Item Value Date Time Mean Platelet Volume 10.5 fL 10/07/21 0523 Furosemide 40 mg 10/10/21 0900 (Lasix Tablet) DAILY/PO Cefepime HCl 1000 50 ml @ 100 mls/hr 11/11/21 1400 mg/Sodium Chloride Q8HR/IV 10/10/21 0552 Promethazine HCl 25 mg 10/08/21 2100 (Phenergan Q6HR PRN/IVP 10/10/21 0223 Injection) Ondansetron HCl 4 mg 10/08/21 1815 (Zofran Q4H PRN/IVP 10/09/21 2323 Injection (Sdv)) Albuterol Sulfate 2.5 mg 10/05/21 2100 (Proventil RTQ6HR/INH 10/10/21 0314 Pre-Mix Nebs (Rt)) Pantoprazole 40 mg 10/05/21 0900 Sodium DAILY/PO 10/09/21 0803 (Protonix Tablet) Acetaminophen/ 1 ea 10/03/21 221 Hydrocodone Bitart Q6H PRN/PO 10/09/21 1755 (Lortab 5 Mg Tablet) Fluoxetine HCl 20 mg 10/03/21 1800 (PROzac CAPSULE) 1800/PO Finasteride 5 mg 10/03/21 1800 (Proscar Tablet) 1800/PO Atenolol 25 mg 10/03/21 1800 (Tenormin Tablet) 1800/PO Lorazepam 0.5 mg 10/03/21 0900 (Ativan Tablet) DAILY/PO 10/09/21 0801 Sucralfate 1 gm 10/03/21 1600 (Carafate ACHS/PO Tablet) Calcium Carbonate 600 mg 10/03/21 0900 (Calcarb 600 DAILY/PO 10/09/21 0803 Tablet) Aspirin 81 mg 10/03/21 0900 (Ecotrin Tablet) DAILY/PO 10/09/21 0804 Ascorbic Acid 500 mg 10/03/21 0800 (Vitamin C DAILY@0800/PO 10/09/21 0804 Tablet) Insulin Human 10 unit 10/03/21 0800 Isoph/Insulin BIDPC/SQ Regular (HumuLIN 70/30 MIX (CHARGE PER UNIT)) Multivitamins/ 1 ea 10/03/21 0700 Minerals DAILY@0700/PO Therapeutic (Vitamins, Multi w/Minerals Tablet) Tamsulosin HCl 0.4 mg 10/02/21 2100 (Flomax Capsule) BID/PO 10/09/212150 Gabapentin 300 mg 10/02/21 2100 (Neurontin BID/PO 10/09/21 2151 Capsule/Tablet) Rivaroxaban 15 mg 10/02/21 1700 (Xarelto Tablet) DAILY@1700/PO Insulin Aspart SLIDING SCALE A BLOO... 10/02/21 1600 (NovoLOG (CHARGE ACHS/SC PER UNIT)) Albuterol Sulfate 2.5 mg 10/02/21 1545 (Proventil Q2HR PRN/INH Pre-Mix Nebs (Rt)) Acetaminophen 650 mg 10/02/21 1415 (Tylenol Tablet) Q6H PRN/PO Sodium Chloride 10-40 ML 10/02/21 1400 (Catheter Flush Q8HR/IV 10/10/21 0552 Syringe) Sodium Chloride 10-40 ML 10/02/21 1400 (Catheter Flush NEEDED PRN/IV Syringe) Assessment/Plan Assessment/Plan Assessment/Plan Acute CHF exacerbation with bilateral pleural effusions Melena CKD Anemia Current use anticoagulant Hypotension Patient off BIPAP. He remains on 5L O2 via oxymask. Continue diuresis. Monitor creatinine with CMP due to CKD. Anticoagulation continued with Xarelto. Melena resolved. Hemoglobin stable continue to monitor. Thoracentesis if shortness of breath worsens. Continue Cefepime NORRIS HENDERSON DO 10/10/212026: Subjective Subjective/Events-last exam Patient was found with an oxygen mask on. His oxygen saturation was approximately 50%. Unable to be aroused. Patient was transferred to the intensive care unit. Patient still difficult to arouse. He is on BiPAP. Patient unable to provide any information. Objective Exam General Appearance: No Apparent Distress, Chronically ill, Other (On BiPAP) HEENT: Normal ENT Inspection, Other (Small wound bridge of nose) Neck: Non Tender Respiratory: No Accessory Muscle Use, Wheezing Cardiovascular: Regular Rate, Rhythm, No JVD Gastrointestinal: non tender, soft Extremity: Non Tender, No Calf Tenderness, Other (Right BKA) Neurologic/Psychiatric: No Alert, No Oriented x3 Skin: Normal Color, Warm/Dry Lymphatic: No Adenopathy Assessment/Plan Assessment/Plan Assessment/Plan Acute CHF exacerbation with bilateral pleural effusions and infiltrate Melena CKD Anemia Current use anticoagulant Hypotension hypoxia Patient on BIPAP. Not arousable, except does respond slightly to sternal rub minimally Continue diuresis. Monitor creatinine with CMP due to CKD. Anticoagulation continued with Xarelto. Melena resolved. Hemoglobin stable continue to monitor. Patient with hypoxia and transferred to ICU Family considering comfort care. Continue Cefepime Supervisory-Addendum Brief Verification & Attestation Participated in pt care: history, MDM, physical Personally performed: exam, history, MDM, supervision of care Care discussed with: Medical Student Procedures: n/a Results interpretation: Verified all documentation Verification and Attestation of Medical Student E/M Service A medical student performed and documented this service in my presence. I reviewed and verified all information documented by the medical student and made modifications to such information, when appropriate. I personally performed the physical exam and medical decision making. Norris Henderson, Oct 10, 2021,16:26 MARCHTULIO Gan Oct 10, 2021 08:03 NORRIS HENDERSON DO Oct 10, 2021 20:27
[2021-10-10] MEDS ORDERED: FUROSEMIDE 40 MG (LASIX) TAB PO SCH (09:00)
[2021-10-10] MEDS: ASCORBIC ACID (VIT C) 500 MG TABLET PO SCH (09:04)
[2021-10-10] MEDS: LORazepam 0.5 MG (ATIVAN) TABLET PO SCH (09:04)
[2021-10-10] MEDS: GABAPENTIN 300 MG (NEURONTIN) CAP PO SCH (09:04)
[2021-10-10] MEDS: ASPIRIN E.C. 81 MG (ECOTRIN) TAB PO SCH (10:01)
[2021-10-10] MEDS: CALCIUM CARBONATE 600 MG (CALCARB) TAB PO SCH (10:01)
--- NOTE | 2021-10-10 10:41 | Physical Therapy Progress Note ---
Therapy Progress Note Patient declined PT secondary to severe nausea and vomiting. PT will attempt in a.m. Physician notified. 1 ref DHARMESH PAYNE PT Oct 10, 2021 10:41
[2021-10-10 12:43] LABS: ABG BASE EXCESS 6.5 MMOL/L (-2.5-2.5); ABG OXYGEN SATURATION 89 % (94-100); ABG PCO2 63 MMHG (35-45); ABG PO2 59 MMHG (79-93); ABG TCO2 34.4 MMOL/L (21.0-31.0)
[2021-10-10 12:47] LABS: ABG PH 7.33 (7.37-7.43)
[2021-10-10 12:48] LABS: ALLENS TEST POS; INSPIRED O2 3L; PATIENT TEMP 36.3; VENTILATOR NO
--- NOTE | 2021-10-10 13:44 | Diagnostic Imaging Report ---
EXAMINATION: Chest 1 view HISTORY: Acute respiratory failure COMPARISON: 10/09/2021 FINDINGS: Stable size of the cardiac silhouette with surgical changes from CABG and left sided cardiac device placement. Trace left and small right pleural effusions with adjacent atelectasis or consolidation. No pneumothorax. Mild hazy opacities within the right lung. Degenerative changes of the thoracic spine. Osseous structures are otherwise intact. IMPRESSION: 1. Bilateral pleural effusions with adjacent atelectasis or consolidation, right greater than left. Mild hazy opacities in the right lung may represent layering pleural fluid versus pulmonary edema or infection. Dictated by: Dictated on workstation # [id number]
--- NOTE | 2021-10-10 13:48 | Tele-ICU Consult ---
History of Present Illness History of Present Illness Date Seen by Provider: Oct 10, 2021 Time Seen by Provider: 13:43 History of Present Illness He is a 86-year-old male with past medical history of congestive heart failure on home oxygen possible COPD atrial fibrillation and on Xarelto. He also has a pacemaker permanent in place. He presented to the emergency room on 10/02/2021 with a complaint of shortness of breath. He normally wears about 3-4 L of oxygen at home but he required BiPAP ventilation upon admission. Subsequently he underwent a thoracentesis on the right side with removal of a bout 1500 cc of fluid. Apparently he was in the medical floor with supplemental oxygen via nasal cannula until today when he took off the oxygen and he is found to be in decrease in mental status with hypoxia. He is transferred to the intensive care unit and started on a BiPAP ventilation. He had an arterial blood gas revealed acute on chronic hypercarbia with hypoxia. Chest x-ray done today reviewed and showed bilateral pleural effusion right more than the left with a left-sided pacemaker in place with underlying cardiomegaly. I have discussed with the patient and reviewed the case and ordered various other test. He is in not in a position to communicate. However I did make a video visit and evaluated him. At this time on a BiPAP his oxygen saturation is 97% and a heart rate of 69. His medications reviewed. Allergies and Home Medications Allergies Coded Allergies: No Known Drug Allergies (Verified , 10/15/09) Home Medications Ascorbic Acid 500 Mg Capsule, 500 MG PO DAILY, (Reported) Aspirin 81 Mg Tablet.dr, 81 MG PO DAILY, (Reported) Atenolol 25 Mg Tablet, 25 MG PO 1800, (Reported) Calcium Carbonate 600 Mg Tablet, 600 MG PO DAILY, (Reported) Finasteride 5 Mg Tablet, 5 MG PO 1800, (Reported) Fluoxetine HCl 20 Mg Capsule, 20 MG PO 1800, (Reported) Furosemide 40 Mg Tablet, 80 MG PO DAILY, (Reported) TAKES 2 (40MG) TABS Gabapentin 300 Mg Capsule, 300 MG PO BID, (Reported) Glucagon,Human Recombinant 1 Mg/Kit Soln, 1 MG IJ UD PRN for HYPOGLYCEMIA, (Reported) Hydrocodone/Acetaminophen 1 Each Tablet, 1 EA PO BID PRN for PAIN-MODERATE (5- 7), (Reported) Insulin NPH Hum/Reg Insulin Hm 100 Unit/1 Ml Vial, 10-15 UNIT SQ BIDPC, (Reported) Lisinopril 20 Mg Tablet, 20 MG PO DAILY, (Reported) Lorazepam 0.5 Mg Tablet, 0.5 MG PO DAILY, (Reported) Multivit-Min/FA/Lycopene/Lut 1 Each Tablet, 1 TAB PO DAILY, (Reported) Rivaroxaban 20 Mg Tablet, 20 MG PO 1800, (Reported) Tamsulosin HCl 0.4 Mg Cap, 0.4 MG PO BID, (Reported) Past Medical/Social/Family Hx Patient Social History Marrital Status: single Employed/Student: retired Tobacco Use?: No Smoking Status: Former Smoker Use of E-Cig and/or Vaping dev: No Substance use?: No Alcohol Use?: No Pt stated abuse/neglect: No Immunizations Up To Date Influenza Vaccine Up-to-Date: Yes; Up-to-Date First/Initial COVID19 Vaccinat: 02/16 Second COVID19 Vaccination Kwasi: 03/19 Tetanus Booster (TDap): Less Than 5 Years Hepatitis A: Yes Hepatitis B: Yes Date of Pneumonia Vaccine: Sep 29, 2012 Current Status Advance Directives: No Communicates: Verbally Primary Language: Swiss Preferred Spoken Language: Swiss Is interpretation needed?: No Implanted or Applied Medical D: Pacemaker Past Medical History PMHx: DMII HTN CAD SurgHx: 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 GREENBERG ADMITTED 01/30/21 FOR COLITIS AND ABDOMINAL WALL CELLULITIS CYSTOSCOPY 03/[address] MARINO Review of Systems Constitutional: see HPI Other per attending physician Sepsis Event Evaluation Height, Weight, BMI Height: 5'9.00" Weight: 226lbs. 9.6oz. 102.625264hx; 33.70 BMI Method:Stated Exam Exam Patient acknowledged, consented, and participated in this virtual visit which was conducted using real time audio/video Vital Signs Date Time Temp Pulse Resp B/P (MAP) Pulse Ox O2 Delivery O2 Flow Rate FiO2 10/10/21 13:03 69 28 95 40.00 10/10/21 13:02 70 10/10/21 12:45 OxyMask 5.00 10/10/21 12:28 OxyMask 3.00 10/10/21 12:25 36.3 OxyMask 5.00 10/10/21 11:56 36.6 70 18 132/59 (83) 94 OxyMask 5.00 10/10/21 10:04 36.4 71 94 40 10/10/21 09:54 94 OxyMask 5.00 10/10/21 08:08 OxyMask 5.00 10/10/21 08:00 36.4 73 18 139/79 (99) 92 OxyMask 5.00 10/10/21 03:54 36.6 71 21 136/70 (92) 94 OxyMask 5.00 10/10/21 03:15 98 OxyMask 5.00 10/10/21 00:17 37.3 69 19 114/63 (80) 97 OxyMask 5.00 10/09/21 21:50 High Flow N/C 5.00 10/09/21 21:20 100 OxyMask 5.00 10/09/21 20:00 37.3 69 20 118/56 (76) 92 OxyMask 5.00 10/09/21 17:04 OxyMask 3.00 10/09/21 16:00 36.8 69 20 123/52 (75) 94 OxyMask 5.00 10/09/21 15:04 100 OxyMask 5.00 I & O 10/10/21 07:00 Intake Total 500 ml Output Total 800 ml Balance -300 ml Height & Weight Height: 5'9.00" Weight: 226lbs. 9.6oz. 102.508055gt; 33.70 BMI Method:Stated General Appearance: No Apparent Distress, Chronically ill HEENT: PERRL/EOMI, Normal ENT Inspection, Other (Small wound bridge of nose) Neck: Full Range of Motion, Non Tender Respiratory: Chest Non Tender, No Accessory Muscle Use, Decreased Breath Sounds, Wheezing Cardiovascular: Regular Rate, Rhythm, No JVD Capillary Refill: Less Than 3 Seconds Peripheral Pulses: 1+ Left Dors-Pedis (L); 2+ Radial Pulses (R), 2+ Radial Pulses (L) Gastrointestinal: non tender, soft; No guarding, No rebound, No tenderness Extremity: Non Tender, Other (Right BKA) Neurologic/Psychiatric: Alert, No Motor/Sensory Deficits Skin: Normal Color, Warm/Dry Lymphatic: No Adenopathy Other comments per attending physician Results Lab Laboratory Tests 10/09/21 05:25 10/10/21 05:52 Meds reviewed Radiology cxr reviewed Assessment/Plan Assessment/Plan 1. Acute and chronic systolic congestive heart failure. 2. Acute and chronic hypoxic and hypercarbic respiratory failure. 3. Bilateral pleural effusion secondary to congestive heart failure. Right pleural effusion is getting worse since the last thoracentesis. 4. History of atrial fibrillation on Xarelto. 5. History of GI bleed currently resolved back on Xarelto. 6. Chronic kidney disease. 7. Altered mental status secondary to CO2 retention. 8. Type 2 DM Recommendations 1. Continue BiPAP ventilation and repeat blood gases. 2. Change Lasix to 40 mg IV every 12 hours 3. Suggest repeat thoracentesis on the right side. 4. Atrial fibrillation and anticoagulant therapy per risk management specialist. 5. Monitor his BUN/creatinine and potassium. 6. Continue Protonix. 7. Management of DM per attending physician. Critical Care: Critically Ill Patient Time spent with patient (mins): 50 CHIVO ALDRIDGE MD Oct 10, 2021 13:48
[2021-10-10] MEDS ORDERED: RT-ALBUTEROL SULF 2.5 MG/3 ML PRE-MIX VIAL INH PRN (14:00)
[2021-10-10] MEDS ORDERED: RT-ALBUTEROL SULF 2.5 MG/3 ML PRE-MIX VIAL INH SCH (14:00)
--- NOTE | 2021-10-10 14:03 | Cardiology Progress Note ---
Subjective Date Seen by Provider: Oct 10, 2021 Time Seen by Provider: 13:57 Subjective/Events-last exam Patient was seen in the ICU, currently on BiPAP. Unable to provide history, apparently patient became severely hypotensive earlier today, he took off his oxygen. Became unresponsive, transferred to the intensive care unit. Review of Systems General: Other (Unable to provide review of system) Objective-Cardiology Exam Last Set of Vital Signs Vital Signs 10/10/21 10/10/21 10/10/21 10/10/21 10/10/21 10:04 11:56 12:25 12:45 13:03 Temp 36.3 Pulse 69 Resp 28 B/P (MAP) 132/59 (83) Pulse Ox 95 O2 Delivery OxyMask O2 Flow Rate 40.00 FiO2 40 I&O Intake and Output 10/10/21 00:00 Intake Total 350 ml Output Total 775 ml Balance -425 ml Intake Oral 350 ml Output Urine Total 775 ml # Voids 1 # Emeses 5 General: Moderate Distress, Other (Lethargic) HEENT: Atraumatic, Other (dried blood around nose) Neck: Supple Lungs: Other (end exp wheezing, increased work of breathing with exertion) Heart: Regular Rate, No Murmurs Abdomen: Soft, Other (RLQ ttp, normal bowel sounds, no rebound or guarding) Extremities: No Clubbing, Other (2+ pitting edema equal bilaterally) Neuro: Sensation Intact Psych/Mental Status: Mood NL, Other (Lethargic and sleepy) Results Lab Laboratory Tests 10/10/21 05:52 A/P-Cardiology Admission Diagnosis Acute respiratory failure Coronary artery disease Atrial fibrillation Acute renal failure Assessment/Plan Acute respiratory failure, patient became severely hypotensive, transferred to the intensive care unit and started on BiPAP, continue with noninvasive ventilatory support and monitor tolerance and response Acute on chronic renal failure, receiving IV fluids, improving slowly. Congestive heart failure, acute on chronic left ventricular systolic dysfunction, echo done in September 2021 showing mild LVH, diffuse left ventricular hypokinesia ejection fraction 35 to 40%, moderate MR, mild AI, mild to moderate TR, pulmonary hypertension with PA pressure 50 to 55 mmHg. Pleural effusion, status post thoracentesis done on October 03, 2021 probably secondary to CHF. Coronary artery disease, history of CABG x4, following with Dr. Parada in [place]. Permanent pacemaker, followed by Dr. Parada. Interrogation on October 02, 2021 showing dual-chamber pacemaker with good functioning, underlying rhythm atrial fibrillation with complete heart block Persistent atrial fibrillation, reported that it was diagnosed recently prior to his hospital admission and he was maintained on oral anticoagulation with Xarelto. GI bleed with melena, had EGD on October 03, 2021 showing AV malformation with reflux esophagitis, duodenal polyp, had polypectomy and biopsy of the antrum. History of BKA on the right done at the time of the CABG. History of colon resection done by Dr. Henderson in March 2020 secondary to ischemic colon Diabetes mellitus, followed and managed by primary care physician Hypertension, continue to monitor blood pressure, currently borderline hypotensive. Receiving IV fluid. Hyperlipidemia, monitor lipids History of macular degeneration Tobaccoism, smokes cigar History of BPH ALFREDA YOUNG MD Oct 10, 2021 14:03
[2021-10-10] MEDS ORDERED: RT-ALBUTEROL/IPRATROPIUM 3 ML (DUONEB) VIAL ONE (14:32)
--- NOTE | 2021-10-10 16:13 | Progress Note ---
Subjective Subjective/Events-last exam Called to patient's room for hypoxic episode. Patient in confusion but awakes with pain stimuli. Oxygen saturations are improving with oxy mask but would recommend patient be transferred to ICU. Review of Systems Unable to evaluate due to patient status Objective Exam Last Set of Vital Signs Vital Signs Date Time Temp Pulse Resp B/P (MAP) Pulse Ox O2 Delivery O2 Flow Rate FiO2 10/10/21 15:48 OxyMask 5.00 10/10/21 15:00 70 23 121/81 (94) 98 10/10/21 12:25 36.3 10/10/21 10:04 40 Capillary Refill : Less Than 3 Seconds I&O Intake and Output 10/09/21 23:59 Intake Total 350 ml Output Total 775 ml Balance -425 ml Intake Oral 350 ml Output Urine Total 775 ml # Voids 1 # Emeses 5 General: Mild Distress, Other (confused and will not respond to name, withdraws from pain) Lungs: Other (diminished breath sounds, belly breathing) Heart: Regular Rate, No Murmurs Abdomen: Normal Bowel Sounds, Soft, No Tenderness Extremities: Other (2+ pitting edema bilaterally) Results/Procedures Lab Laboratory Tests 10/09/21 17:44: Glucometer 170H 10/09/21 20:04: Glucometer 165H 10/10/21 05:19: Glucometer 133H 10/10/21 05:52: White Blood Count 6.7, Red Blood Count 2.82L, Hemoglobin 8.1L, Hematocrit 28L, Mean Corpuscular Volume 98, Mean Corpuscular Hemoglobin 29, Mean Corpuscular Hemoglobin Concent 30L, Red Cell Distribution Width 15.7H, Platelet Count 184, Mean Platelet Volume 10.1, Immature Granulocyte % (Auto) 0, Neutrophils (%) (Auto) 78H, Lymphocytes (%) (Auto) 13, Monocytes (%) (Auto) 8, Eosinophils (%) (Auto) 1, Basophils (%) (Auto) 0, Neutrophils # (Auto) 5.2, Lymphocytes # (Auto) 0.8L, Monocytes # (Auto) 0.6, Eosinophils # (Auto) 0.0, Basophils # (Auto) 0.0, Immature Granulocyte # (Auto) 0.0, Sodium Level 143, Potassium Level 5.0, Chloride Level 102, Carbon Dioxide Level 29, Anion Gap 12, Blood Urea Nitrogen 60H, Creatinine 1.94H, Estimat Glomerular Filtration Rate 33, BUN/Creatinine Ratio 31, Glucose Level 144H, Calcium Level 8.8 10/10/21 07:32: Glucometer 136H 10/10/21 11:29: Glucometer 167H 10/10/21 11:47: Glucometer 175H 10/10/21 12:30: Blood Gas Puncture Site LFT RAD, Blood Gas Patient Temperature 36.3, Arterial Blood pH 7.33*L, Arterial Blood Partial Pressure CO2 63H, Arterial Blood Partial Pressure O2 59L, Arterial Blood HCO3 32H, Arterial Blood Total CO2 34.4H, Arterial Blood Oxygen Saturation 89L, Arterial Blood Base Excess 6.5H, Louie Test POS, Blood Gas Ventilator Setting NO, Blood Gas Inspired Oxygen 3L 10/10/21 15:55: Glucometer 173H Microbiology 10/07/21 C. difficile GDH Antigen & Toxins - Final, Complete Radiology 1. Small bilateral pleural effusions, increased since the prior exam. 2. Airspace opacities in the upper lobes, may be due to edema or infection Assessment/Plan Assessment/Plan (1) Acute on chronic respiratory failure with hypoxia and hypercapnia Status: Acute Assessment & Plan: 10/06: Continue to titrate as tolerated, has home oxygen requirement, MAT protocol 10/07: On home oxygen, getting close to d/c 10/08: IRF eval ordered today, patient on baseline oxygen 10/09: Oxygen needs increased ON, CXR with new consolidation, antibiotics started 10/10: hypoxic episode this AM, placed on bipap and transferred to ICU, CXR/ABG ordered (2) Acute on chronic systolic (congestive) heart failure Status: Acute Assessment & Plan: 10/06: Cardiology consulted, appreciate recommendations, Diuretic held, near dry weight (3) Acute on chronic renal failure Status: Acute Assessment & Plan: 10/06: Cr has trended up, will continue to monitor, maybe over diuresed 10/07: Gentle hydration, Cr baseline 1.7 10/08: Patient at baseline Cr (4) Normocytic anemia Status: Acute Assessment & Plan: 10/06: Stable, will continue to monitor (5) Atrial fibrillation Status: Acute Assessment & Plan: 10/06: Rate controlled, OAC renally dosed 10/07: Nosebleed O/N, will continue to monitor, Hgb stable 10/10: Discussed with Dr Mahoney and he recommends switching patient to Eliquis from xarelto due to the decreased bleeding concerns (6) Melena Status: Acute Assessment & Plan: 10/06: Scoped by Beatriz during admission (7) Hyperkalemia Status: Resolved Assessment & Plan: - Stop replacement, repeat in AM JOSE J GROVE MD Oct 10, 2021 16:13
[2021-10-10 16:35] LABS: ABG BASE EXCESS 7.8 MMOL/L (-2.5-2.5); ABG OXYGEN SATURATION 99 % (94-100); ABG PCO2 59 MMHG (35-45); ABG PH 7.37 (7.37-7.43); ABG PO2 89 MMHG (79-93); ABG TCO2 35.2 MMOL/L (21.0-31.0); ALLENS TEST POS
[2021-10-10 16:36] LABS: INSPIRED O2 30%; PATIENT TEMP 36.3; VENTILATOR NO
[2021-10-10] MEDS ORDERED: ONDANSETRON 4 MG/2 ML (SDV) Z0FRAN IVP PRN (17:00)
[2021-10-10] MEDS ORDERED: GLYCOPYRROLATE 0.2 MG/ML (ROBINUL) 2 ML VIAL IV PRN (17:00)
[2021-10-10] MEDS ORDERED: BISACODYL 10 MG SUPP (DULCOLAX) PR PRN (17:00)
[2021-10-10] MEDS ORDERED: PROMETHAZINE INJ 25 MG/ML (PHENERGAN) AMP IVP PRN (17:00)
[2021-10-10] MEDS ORDERED: SALIVA STIMULANT MOUTH SPRAY (BIOTENE) 1.5 OZ MM PRN (17:00)
[2021-10-10] MEDS ORDERED: RT-ALBUTEROL/IPRATROPIUM 3 ML (DUONEB) VIAL INH SCH ×2 (17:00→18:00)
[2021-10-10] MEDS ORDERED: LORazepam INJ 2 MG/ML (ATIVAN) VIAL IVP PRN (17:00)
[2021-10-10] MEDS ORDERED: FUROSEMIDE 40 MG/4 ML INJ (LASIX) IVP SCH (17:00)
[2021-10-10] MEDS ORDERED: ARTIFICAL TEARS 0.4 ML UNIT DOSE (REFRESH PLUS) OU PRN (17:00)
[2021-10-10] MEDS ORDERED: ACETAMINOPHEN 650 MG SUPP (TYLENOL) PR PRN (17:00)
[2021-10-10] MEDS ORDERED: morphine INJ 4 MG/ML 1 ML (VIAL/SYRINGE) IVP PRN (17:00)
[2021-10-10] MEDS: RIVAROXABAN 15 MG TABLET (XARELTO) PO SCH (17:06)
[2021-10-10] MEDS ORDERED: morphine INJ 4 MG/ML 1 ML (VIAL/SYRINGE) ONE ×2 (17:09→17:36)
[2021-10-10] MEDS ORDERED: morphine INJ 10 MG/ML 1ML (SYR OR VIAL) IVP STA (17:34)
== END 2021-10-10 17:48 | disposition expired | DRG 291 ==
LOC: EDUNIT# 09:22 → ER 09:25 → CSD 12:05 → 4TH 10-04 13:14 → ICU 10-10 12:23
PROVIDERS: ADMIT Internal Medicine; ATTEND Family Medicine
PROC: 5A09357 Assistance with Respiratory Ventilation, Less than 24 Consecutive Hours, Continuous Positive Airway Pressure (ICD-10-PCS; 2021-10-02)
PROC: 0DB98ZX Excision of Duodenum, Via Natural or Artificial Opening Endoscopic, Diagnostic (ICD-10-PCS; 2021-10-03)
PROC: 0DB78ZX Excision of Stomach, Pylorus, Via Natural or Artificial Opening Endoscopic, Diagnostic (ICD-10-PCS; 2021-10-03)
PROC: 0DB48ZX Excision of Esophagogastric Junction, Via Natural or Artificial Opening Endoscopic, Diagnostic (ICD-10-PCS; 2021-10-03)
PROC: 0DB98ZZ Excision of Duodenum, Via Natural or Artificial Opening Endoscopic (ICD-10-PCS; 2021-10-03)
PROC: 0W993ZZ Drainage of Right Pleural Cavity, Percutaneous Approach (ICD-10-PCS; principal; 2021-10-03 14:43)
DX: I13.0 Hypertensive heart and chronic kidney disease with heart failure and stage 1 through stage 4 chronic kidney disease, or unspecified chronic kidney disease (principal); I50.23 Acute on chronic systolic (congestive) heart failure; J96.21 Acute and chronic respiratory failure with hypoxia; J96.22 Acute and chronic respiratory failure with hypercapnia; J90 Pleural effusion, not elsewhere classified; K92.1 Melena; J44.1 Chronic obstructive pulmonary disease with (acute) exacerbation; I48.19 Other persistent atrial fibrillation; N17.9 Acute kidney failure, unspecified; Z66 Do not resuscitate; Z51.5 Encounter for palliative care; Z20.822 Contact with and (suspected) exposure to COVID-19; E11.22 Type 2 diabetes mellitus with diabetic chronic kidney disease; N18.30 Chronic kidney disease, stage 3 unspecified; Z79.4 Long term (current) use of insulin; Q27.33 Arteriovenous malformation of digestive system vessel; Z79.01 Long term (current) use of anticoagulants; E11.40 Type 2 diabetes mellitus with diabetic neuropathy, unspecified; K21.00 Gastro-esophageal reflux disease with esophagitis, without bleeding; K31.7 Polyp of stomach and duodenum; F41.9 Anxiety disorder, unspecified; F17.210 Nicotine dependence, cigarettes, uncomplicated; I25.10 Atherosclerotic heart disease of native coronary artery without angina pectoris; E78.00 Pure hypercholesterolemia, unspecified; E78.5 Hyperlipidemia, unspecified; I08.3 Combined rheumatic disorders of mitral, aortic and tricuspid valves; H35.30 Unspecified macular degeneration; F32.A Depression, unspecified; N40.1 Benign prostatic hyperplasia with lower urinary tract symptoms; R33.8 Other retention of urine; R31.9 Hematuria, unspecified; D64.9 Anemia, unspecified; I95.9 Hypotension, unspecified; Z86.16 Personal history of COVID-19; Z89.511 Acquired absence of right leg below knee; Z95.0 Presence of cardiac pacemaker; Z95.1 Presence of aortocoronary bypass graft; Z83.3 Family history of diabetes mellitus; Z79.82 Long term (current) use of aspirin
CPT/HCPCS: 36415; 36600; 71045; 76604; 76942; 80048; 80053; 82150; 82438; 82570; 82805; 82945; 82947; 83615; 83735; 83880; 84132; 84157; 84315; 84484; 85025; 85027; 87081; 87324; 87449; 87636; 88112; 88305; 89051; 89060; 93005; 93306; 94640; 94660; 94760; 96374